=== PATIENT | female | born 1965 | race Caucasian/White ===

== ENCOUNTER 2022-09-25 09:53 | Outpatient (OUT) | payer OTHER, SELFPAY ==
[2022-09-25 10:49] LABS: Basophils Absolute Auto 0.1 10^3/uL (0.0-0.1); Basophils Percent Auto 1.2 % (0.2-2.0); Eosinophils Absolute Auto 0.1 10^3/uL (0.0-0.7); Eosinophils Percent Auto 2.6 % (0.9-7.0); Hematocrit 42.3 % (36.0-48.0); Hemoglobin 13.8 g/dL (12.0-16.0); Immature Granulocytes Abs Auto 0.01 10^3/uL (0.00-0.03); Immature Granulocytes Pct Auto 0.2 % (0.0-0.5); Lymphocytes Absolute Auto 1.5 10^3/uL (1.2-3.8); Lymphocytes Percent Auto 35.2 % (20.5-60.0); Mean Corpuscular HGB Conc 32.6 g/dL (29.9-35.2); Mean Corpuscular Hemoglobin 28.9 pg (26.7-34.0); Mean Corpuscular Volume 88.5 fL (81.0-99.0); Mean Platelet Volume 10.1 fL (9.5-13.5); Monocytes Absolute Auto 0.4 10^3/uL (0.3-0.8); Monocytes Percent Auto 10.3 % (1.7-12.0); Neutrophils Absolute Auto 2.1 10^3/uL (1.4-6.5); Neutrophils Percent Auto 50.5 % (43.0-75.0); Nucleated Red Blood Cells 0; Platelet Count 259 10^3/uL (150-450); Red Blood Count 4.78 10^6/uL (4.20-5.40); Red Cell Distribution Width 13.2 % (11.0-15.0); White Blood Count 4.2 10^3/uL (4.0-11.0)
[2022-09-25 11:00] LABS: Estimated Average Glucose 114 mg/dL; Glycohemoglobin A1C 5.6 % (4.5-6.2)
[2022-09-25 11:22] LABS: Alanine Aminotransferase 31 U/L (14-59); Albumin Level 4.1 g/dL (3.4-5.0); Alkaline Phosphatase 71 U/L (46-116); Anion Gap 10.3; Aspartate Amino Transferase 22 U/L (15-37); BUN Creatinine Ratio 18.3; Bilirubin Total 0.4 mg/dL (0.2-1.0); Calcium 9.3 mg/dL (8.5-10.1); Carbon Dioxide 30.3 mmol/L (21.0-32.0); Chloride 102 mmol/L (98-107); Chol HDL Ratio 2.6; Cholesterol 214 mg/dL (<=200); Estimated GFR (African America >60 (>=60); Estimated GFR (Non-African Ame >60 (>=60); Free T3 2.63 pg/mL (2.18-3.98); Glucose 87 mg/dL (74-106); HDL Cholesterol 82 mg/dL (40-60); Potassium 3.6 mmol/L (3.5-5.1); Sodium 139 mmol/L (136-145); Thyroid Stimulating Hormone 1.316 uIU/mL (0.358-3.740); Total Protein 8.1 g/dL (6.4-8.2); Triglycerides 54 mg/dL (<=150); VLDL CHOLESTEROL 10.8 mg/dL
[2022-09-26 04:12] LABS: Rheumatoid Factor (RF) <10.0 IU/mL (<14.0)
[2022-09-26 11:08] LABS: Insulin 4.9 uIU/mL (2.6-24.9)
== END 2022-09-25 09:54 ==
LOC: MRI 09:55
PROVIDERS: PCP Family Medicine; Visit Provider Family Medicine
DX: Z00.00 Encounter for general adult medical examination without abnormal findings (principal); E55.9 Vitamin D deficiency, unspecified
CPT/HCPCS: 36415; 80053; 80061; 82306; 83036; 83525; 83540; 84436; 84443; 84481; 85025; 86430

== ENCOUNTER 2022-11-11 09:52 | Outpatient (OUT) | payer OTHER, SELFPAY ==
[2022-11-11 10:30] LABS: Basophils Percent Auto 0.6 % (0.2-2.0); Eosinophils Percent Auto 0.4 % (0.9-7.0); Hematocrit 41.2 % (36.0-48.0); Hemoglobin 13.7 g/dL (12.0-16.0); Immature Granulocytes Abs Auto 0.02 10^3/uL (0.00-0.03); Immature Granulocytes Pct Auto 0.4 % (0.0-0.5); Lymphocytes Absolute Auto 0.9 10^3/uL (1.2-3.8); Lymphocytes Percent Auto 18.1 % (20.5-60.0); Mean Corpuscular HGB Conc 33.3 g/dL (29.9-35.2); Mean Corpuscular Volume 87.1 fL (81.0-99.0); Mean Platelet Volume 10.3 fL (9.5-13.5); Monocytes Absolute Auto 0.3 10^3/uL (0.3-0.8); Monocytes Percent Auto 5.8 % (1.7-12.0); Neutrophils Absolute Auto 3.8 10^3/uL (1.4-6.5); Neutrophils Percent Auto 74.7 % (43.0-75.0); Platelet Count 254 10^3/uL (150-450); Red Blood Count 4.73 10^6/uL (4.20-5.40); Red Cell Distribution Width 13.5 % (11.0-15.0)
[2022-11-11 12:39] LABS: Occult Blood Positive
[2022-11-11 12:58] LABS: Alanine Aminotransferase 31 U/L (14-59); Albumin Level 4.2 g/dL (3.4-5.0); Alkaline Phosphatase 70 U/L (46-116); Anion Gap 12.6; Aspartate Amino Transferase 22 U/L (15-37); BUN Creatinine Ratio 16.4; Bilirubin Total 0.4 mg/dL (0.2-1.0); Calcium 9.6 mg/dL (8.5-10.1); Carbon Dioxide 28.5 mmol/L (21.0-32.0); Chloride 105 mmol/L (98-107); Estimated GFR (African America >60 (>=60); Estimated GFR (Non-African Ame >60 (>=60); Glucose 121 mg/dL (74-106); Potassium 4.1 mmol/L (3.5-5.1); Sodium 142 mmol/L (136-145); Total Protein 8.2 g/dL (6.4-8.2)
[2022-11-11 15:36] LABS: C. Difficile PCR NEGATIVE (NEGATIVE)
[2022-11-12 11:38] LABS: Adenovirus F 40/41 NOT DETECTED (NOT DETECTE); Astrovirus NOT DETECTED (NOT DETECTE); Campylobacter NOT DETECTED (NOT DETECTE); Cryptosporidium NOT DETECTED (NOT DETECTE); Cyclospora cayetanensis NOT DETECTED (NOT DETECTE); Entamoeba histolytica NOT DETECTED (NOT DETECTE); Enteroaggregative E.coli NOT DETECTED (NOT DETECTE); Enterotoxigenic E. coli NOT DETECTED (NOT DETECTE); Giardia lamblia NOT DETECTED (NOT DETECTE); Norovirus GI/GII NOT DETECTED (NOT DETECTE); Plesiomonas shigelloides NOT DETECTED (NOT DETECTE); Rotavirus A NOT DETECTED (NOT DETECTE); Salmonella NOT DETECTED (NOT DETECTE); Sapovirus NOT DETECTED (NOT DETECTE); Shiga-like toxin-producing E.C NOT DETECTED (NOT DETECTE); Shigella/Enteroinvasive E.coli NOT DETECTED (NOT DETECTE); Vibrio NOT DETECTED (NOT DETECTE); Vibrio cholerae NOT DETECTED (NOT DETECTE); Yersinia enterocolitica NOT DETECTED (NOT DETECTE)
[2022-11-12 11:39] LABS: Enteropathogenic E.coli DETECTED (NOT DETECTE)
== END 2022-11-11 09:53 | disposition home or self-care (01) ==
LOC: LAB 09:53
PROVIDERS: PCP Family Medicine; Visit Provider Family Medicine
DX: K52.9 Noninfective gastroenteritis and colitis, unspecified (principal)
CPT/HCPCS: 36415; 80053; 85025; 87493; 87507; G0328

== ENCOUNTER 2022-11-13 09:33 | Outpatient (OUT) | payer OTHER, SELFPAY ==
[2022-11-13 09:40] VITALS: BP 132/87; PULSE 85; RESP 18; TEMP 37.2; O2SAT 97
[2022-11-13] MEDS: 0.9 % SODIUM CHLORIDE 1,000 ML 500 ML IV (10:07)
== END 2022-11-13 09:34 | disposition home or self-care (01) ==
LOC: INF 09:36
PROVIDERS: PCP Family Medicine; Visit Provider Family Medicine
DX: E86.0 Dehydration (principal); R19.7 Diarrhea, unspecified
CPT/HCPCS: 96360

== ENCOUNTER 2022-12-25 12:18 | Outpatient (OUT) | payer OTHER, SELFPAY ==
[2022-12-25 12:54] LABS: Estimated Average Glucose 117 mg/dL; Glycohemoglobin A1C 5.7 % (4.5-6.2)
[2022-12-25 13:59] LABS: Alanine Aminotransferase 44 U/L (14-59); Albumin Level 4.1 g/dL (3.4-5.0); Alkaline Phosphatase 65 U/L (46-116); Anion Gap 10.4; Aspartate Amino Transferase 31 U/L (15-37); Bilirubin Total 0.5 mg/dL (0.2-1.0); Calcium 9.3 mg/dL (8.5-10.1); Carbon Dioxide 28.7 mmol/L (21.0-32.0); Chloride 105 mmol/L (98-107); Estimated GFR (African America >60 (>=60); Estimated GFR (Non-African Ame >60 (>=60); Globulin 4.1 g/dL; Glucose 77 mg/dL (74-106); Potassium 4.1 mmol/L (3.5-5.1); Sodium 140 mmol/L (136-145); Thyroid Stimulating Hormone 0.989 uIU/mL (0.358-3.740); Total Protein 8.2 g/dL (6.4-8.2)
[2022-12-25 14:02] LABS: C Reactive Protein <0.2 mg/dL (<=1.0)
[2022-12-25 14:50] LABS: Basophils Absolute Auto 0.1 10^3/uL (0.0-0.1); Basophils Percent Auto 1.5 % (0.2-2.0); Eosinophils Absolute Auto 0.2 10^3/uL (0.0-0.7); Eosinophils Percent Auto 3.1 % (0.9-7.0); Hematocrit 42.7 % (36.0-48.0); Hemoglobin 13.7 g/dL (12.0-16.0); Immature Granulocytes Abs Auto 0.01 10^3/uL (0.00-0.03); Immature Granulocytes Pct Auto 0.2 % (0.0-0.5); Lymphocytes Absolute Auto 1.7 10^3/uL (1.2-3.8); Lymphocytes Percent Auto 35.5 % (20.5-60.0); Mean Corpuscular HGB Conc 32.1 g/dL (29.9-35.2); Mean Corpuscular Hemoglobin 28.9 pg (26.7-34.0); Mean Corpuscular Volume 90.1 fL (81.0-99.0); Mean Platelet Volume 10.6 fL (9.5-13.5); Monocytes Absolute Auto 0.5 10^3/uL (0.3-0.8); Monocytes Percent Auto 10.2 % (1.7-12.0); Neutrophils Absolute Auto 2.4 10^3/uL (1.4-6.5); Neutrophils Percent Auto 49.5 % (43.0-75.0); Platelet Count 294 10^3/uL (150-450); Red Blood Count 4.74 10^6/uL (4.20-5.40); Red Cell Distribution Width 13.5 % (11.0-15.0); White Blood Count 4.8 10^3/uL (4.0-11.0)
[2022-12-25 16:29] LABS: Erythrocyte Sedimentation Rate 25 mm/hr (<=30)
[2022-12-26 05:07] LABS: Rheumatoid Factor (RF) <10.0 IU/mL (<14.0)
== END 2022-12-25 12:19 | disposition home or self-care (01) ==
LOC: LAB 12:20
PROVIDERS: PCP Family Medicine; Visit Provider Family Medicine
DX: M19.90 Unspecified osteoarthritis, unspecified site (principal); R73.09 Other abnormal glucose
CPT/HCPCS: 36415; 80053; 83036; 84439; 84443; 85025; 85652; 86140; 86430; 86431

== ENCOUNTER 2023-05-26 15:12 | Outpatient (OUT) | payer OTHER, SELFPAY ==
--- NOTE | 2023-05-26 | XR_ITS ---
The [address] [address] Patient Name: YULIA CSATANO MRN: [id number] date: 1965 Sex: F Assigned Patient Location: [facility] Current Patient Location: [facility] Accession/Order Number: [id number] Exam Date: 05/26/2023 15:26 Report Date: 05/26/2023 16:12 At the request of: RALF RENDON Procedure: XR ankle LT min 3V PROCEDURE: XR ankle LT min 3V, XR foot LT min 3V COMPARISON: None. HISTORY: LEFT ANKLE PAIN FINDINGS: BONES:No acute fracture or dislocation. Moderate enthesopathic spurring of the calcaneus at the Achilles insertion. 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 Mild degenerative changes of the midfoot. SOFT TISSUES:Negative. No visible soft tissue swelling. EFFUSION:None visible. OTHER: Negative. XR/XR ankle LT min 3V IMPRESSION: No acute abnormality of the foot or ankle Electronically authenticated by: ELLYN ALVAREZ Date: 05/26/2023 16:12
--- NOTE | 2023-05-26 | XR_ITS ---
The [address] [address] Patient Name: YULIA CASTANO MRN: [id number] date: 1965 Sex: F Assigned Patient Location: [facility] Current Patient Location: [facility] Accession/Order Number: [id number] Exam Date: 05/26/2023 15:22 Report Date: 05/26/2023 16:12 At the request of: RALF RENDON Procedure: XR foot LT min 3V PROCEDURE: XR ankle LT min 3V, XR foot LT min 3V COMPARISON: None. HISTORY: LEFT ANKLE PAIN FINDINGS: BONES:No acute fracture or dislocation. Moderate enthesopathic spurring of the calcaneus at the Achilles insertion. 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 Mild degenerative changes of the midfoot. SOFT TISSUES:Negative. No visible soft tissue swelling. EFFUSION:None visible. OTHER: Negative. XR/XR foot LT min 3V IMPRESSION: No acute abnormality of the foot or ankle Electronically authenticated by: ELLYN ALVAREZ Date: 05/26/2023 16:12
== END 2023-05-26 15:13 | disposition home or self-care (01) ==
LOC: RAD 15:13
PROVIDERS: PCP Family Medicine; Visit Provider Podiatrist Foot & Ankle Surgery
DX: M79.672 Pain in left foot (principal); M25.572 Pain in left ankle and joints of left foot
CPT/HCPCS: 73610; 73630

== ENCOUNTER 2023-07-05 11:19 | Outpatient (OUT) | payer OTHER, SELFPAY ==
--- OUTSIDE RECORDS SUMMARY | 2023-07-05 11:31 | XMS_ITS | CCD ---
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 Room Operator Name Role Phone ABELINOY ., DR LOPEZ Attending Unavailable HOY ., DR LOPEZ Consulting Unavailable HOY ., DR LOPEZ Primary Care Unavailable HOY ., DR LOPEZ Admitting Unavailable HOY ., DR LOPEZ Attending Unavailable HOY ., DR LOPEZ Consulting Unavailable HOY ., DR LOPEZ Primary Care Unavailable HOY ., DR LOPEZ Admitting Unavailable HOY ., DR LOPEZ Attending Unavailable HOY ., DR LOPEZ Consulting Unavailable HOY ., DR LOPEZ Primary Care Unavailable HOY ., DR LOPEZ Admitting Unavailable HOY ., DR LOPEZ Attending Unavailable HOY ., DR LOPEZ Consulting Unavailable HOY ., DR LOPEZ Primary Care Unavailable HOY ., DR LOPEZ Admitting Unavailable HOY ., DR LOPEZ Consulting Unavailable HOY ., DR LOPEZ Attending Unavailable HOY ., DR LOPEZ Primary Care Unavailable HOY ., DR LOPEZ Admitting Unavailable ZIEBER, DR GABO Henley Consulting Unavailable HOY ., DR LOPEZ Attending Unavailable HOY ., DR LOPEZ Consulting Unavailable HOY ., DR LOPEZ Primary Care Unavailable HOY ., DR LOPEZ Admitting Unavailable HOY ., DR LOPEZ Attending Unavailable HOY ., DR LOPEZ Consulting Unavailable HOY ., DR LOPEZ Primary Care Unavailable HOY ., DR LOPEZ Admchao Unavailable HOY ., DR LOPEZ Admitting Unavailable HOY ., DR LOPEZ Attending Unavailable HOY ., DR LOPEZ Consulting Unavailable HOY ., DR LOPEZ Primary Care Unavailable ZIEBER, DR GABO Henley Consulting Unavailable JUANJOSE ., DR WILSON Admitting Unavailable JUANJOSE ., DR WILSON Attending Unavailable JUANJOSE ., DR WILSON Consulting Unavailable HOY ., DR LOPEZ Primary Care Unavailable ZIEBER, DR GABO Henley Consulting Unavailable HOY ., DR LOPEZ Attending Unavailable HOY ., DR LOPEZ Consulting Unavailable HOY ., DR LOPEZ Primary Care Unavailable HOY ., DR LOPEZ Admchao Unavailable JUANJOSE ., DR WILSON Admitting Unavailable JUANJOSE ., DR WILSON Attending Unavailable HOY ., DR LOPEZ Primary Care Unavailable HOY ., DR LOPEZ Admitting Unavailable HOY ., DR LOPEZ Attending Unavailable HOY ., DR LOPEZ Primary Care Unavailable JUANJOSE ., DR WILSON Admitting Unavailable JUANJOSE ., DR WILSON Attending Unavailable HOY ., DR LOPEZ Primary Care Unavailable JUANJOSE ., DR WILSON Admitting Unavailable JUANJOSE ., DR WILSON Attending Unavailable HOY ., DR LOPEZ Primary Care Unavailable HOY ., DR LOPEZ Attending Unavailable HOY ., DR LOPEZ Primary Care Unavailable HOY ., DR LOPEZ Admitting Unavailable HOY ., DR LOPEZ Consulting Unavailable HOY ., DR LOPEZ Attending Unavailable HOY ., DR LOPEZ Primary Care Unavailable HOY ., DR LOPEZ Admchao Unavailable ARTEMIO DIXON Consulting Unavailable JUANJOSE ., DR WILSON Admitting Unavailable JUANJOSE ., DR WILSON Attending Unavailable CLAREMONT, DR ELLYN Dougherty Consulting Unavailable HOY ., DR LOPEZ Primary Care Unavailable JUANJOSE ., DR WILSON Consulting Unavailable HOY ., DR LOPEZ Primary Care Unavailable DEMETRA, DR IRIS Chavez Admitting Unavailabl e DEMETRA, DR IRIS Chavez Attending Unavailabl e GRETEL ., ADELAIDE Admitting Unavailable GRETEL ., ADELAIDE Attending Unavailable GRETEL ., ADELAIDE Consulting Unavailable HOY ., DR LOPEZ Primary Care Unavailable KAREN VALDEZ Consulting Unavailable HOY ., DR LOPEZ Consulting Unavailable HOY ., DR LOPEZ Attending Unavailable HOY ., DR LOPEZ Primary Care Unavailable HOY ., DR LOPEZ Admchao Unavailable JEAN, DR BRYAN Henley Admitting Unavailable PENA, DR BRYAN Henley Attending Unavailable JEAN, DR BRYAN Henley Consulting Unavailable HOY ., DR LOPEZ Primary Care Unavailable DEMETRA, DR IRIS Chavez Consulting Unavailabl e HOY ., DR LOPEZ Attending Unavailable HOY ., DR LOPEZ Primary Care Unavailable HOY ., DR LOPEZ Admitting Unavailable HOY ., DR LOPEZ Consulting Unavailable HOY ., DR LOPEZ Attending Unavailable HOY ., DR LOPEZ Primary Care Unavailable HOY ., DR LOPEZ Admitting Unavailable HOY ., DR LOPEZ Attending Unavailable HOY ., DR LOPEZ Consulting Unavailable HOY ., DR LOPEZ Primary Care Unavailable HOY ., DR LOPEZ Admitting Unavailable LINDA RHODES Consulting Unavailable VALE IH Attending Unavailable RALF RENDON Referring Unavailable KATIE SOW Attending Unavailable KATIE SOW Attending Unavailable Allergies Allergy Classification Reported Allergen(s) Allergy Type Date of Onset Reaction(s) Facility (1 source) Azithromycin Drug Allergy 12-20-2021 [facility] Repository (2 sources) Imipramine Drug Allergy 10-05-2012 [facility] Repository (2 sources) Sulfonamides (Antibiotic) Drug allergy (disorder) 10-05-2012 [facility] Repository (2 sources) E.E.S. Drug allergy (disorder) 10-05-2012 [facility] Repository Problems Active Problems Problem Classification Problem Date Documented Da te Episodic/Chronic Chronic obstructive pulmonary disease and bronchiectasis (5 sources) Chronic obstructive pulmonary disease, unspecified; Translations: [COPD UNSPECIFIED] Onset: 06-05-2022 Chronic Deficiency and other anemia (1 source) Anemia, unspecified; Translations: [ANEMIA UNSPECIFIED] Onset: 07-07-2022 Episodic Diabetes mellitus without complication (1 source) Other abnormal glucose; Translations: [OTHER ABNORMAL GLUCOSE] Onset: 07-07-2022 Episodic Essential hypertension (4 sources) Essential (primary) hypertension; Translations: [ESSENTIAL PRIMARY HYPERTENSION] Onset: 07-03-2022 Chronic Genitourinary symptoms and ill-defined conditions (4 sources) Unspecified urinary incontinence; Translations: [UNSPECIFIED URINARY INCONTINENCE] Onset: 12-20-2021 Chronic Menstrual disorders (1 source) Excessive and frequent menstruation with regular cycle; Translations: [EXCESS FREQ MENSTRUATION W/REG CYCL] Onset: 12-24-2021 Chronic Nonmalignant breast conditions (5 sources) Unspecified lump in the right breast, unspecified quadrant; Translations: [Mastodynia] Onset: 09-22-2022 Episodic Other lower respiratory disease (1 source) Shortness of breath; Translations: [SHORTNESS OF BREATH] Onset: 07-07-2022 Episodic Other lower respiratory disease (1 source) Other nonspecific abnormal finding of lung field; Translations: [OTH NONSPECIFIC ABN FIND LNG FIELD] Onset: 07-07-2022 Episodic Other screening for suspected conditions (not mental disorders or infectious disease) (4 sources) Abnormal findings on diagnostic imaging of other specified body structures; Translations: [ABNORML FIND DX IMG OTH BODY STRUC] Onset: 07-28-2022 Chronic Other screening for suspected conditions (not mental disorders or infectious disease) (2 sources) Encounter for screening for malignant neoplasm of rectum; Translations: [Encounter for screening mammogram for malignant neoplasm of breast] Onset: 02-13-2022 Episodic Other skin disorders (4 sources) Localized swelling, mass and lump, neck; Translations: [LOCALIZED SWELLING MASS AND LUMP NECK] Onset: 08-29-2022 Episodic Other upper respiratory disease (1 source) Other seasonal allergic rhinitis; Translations: [OTHER SEASONAL ALLERGIC RHINITIS] Onset: 12-24-2021 Chronic Residual codes; unclassified (4 sources) Obstructive sleep apnea (adult) (pediatric); Translations: [OBSTRUCTIVE SLEEP APNEA] Onset: 08-11-2022 Chronic Unclassified (3 sources) CONTACT W/AND (SUSP) EXPOS COVID-19; Translations: [CONTACT W/AND (SUSP) EXPOS COVID-19] Onset: 06-03-2022 Unclassified (2 sources) COUGH, UNSPECIFIED; Translations: [COUGH, UNSPECIFIED] Onset: 01-19-2022 Unclassified (1 source) PERSONAL HISTORY OF COVID-19; Translations: [PERSONAL HISTORY OF COVID-19] Onset: 01-19-2022 Viral infection (5 sources) COVID-19; Translations: [COVID-19] Onset: 12-25-2021 Past or Other Problems Problem Classification Problem Date Documented Da te Episodic/Chronic Cardiac dysrhythmias (4 sources) Palpitations; Translations: [PALPITATIONS] Onset: 06-03-2022 Episodic Deficiency and other anemia (1 source) Iron deficiency anemia, unspecified; Translations: [IRON DEFICIENCY ANEMIA UNSPECIFIED] Onset: 12-24-2021 Episodic Fluid and electrolyte disorders (4 sources) Dehydration; Translations: [DEHYDRATION] Onset: 12-24-2021 Episodic Malaise and fatigue (1 source) Other fatigue; Translations: [OTHER FATIGUE] Onset: 06-05-2022 Episodic Other aftercare (4 sources) Other intermediate (current) drug therapy; Translations: [OTH CARE HOME CURRENT DRUG THERAPY] Onset: 12-23-2021 Episodic Other circulatory disease (1 source) Other specified symptoms and signs involving the circulatory and respiratory systems; Translations: [OTH SPEC SX SIGNS INVLV CIRC RS] Onset: 06-05-2022 Episodic Other lower respiratory disease (4 sources) Wheezing; Translations: [WHEEZING] Onset: 01-15-2022 Episodic Residual codes; unclassified (4 sources) Procedure and treatment not carried out due to patient leaving prior to being seen by health care provider; Translations: [PROC AND TX NOT CARRIED OUT PT LEAVE] Onset: 06-02-2022 Episodic Residual codes; unclassified (1 source) Family history of malignant neoplasm of breast; Translations: [FAMILY HX MALIG NEOPLASM OF BREAST] Onset: 02-13-2022 Episodic Unclassified (1 source) CONTACT W/AND (SUSP) EXPOS COVID-19; Translations: [CONTACT W/AND (SUSP) EXPOS COVID-19] Onset: 06-02-2022 Results Test Name Value Interpretation Reference Range Facility MG MAMM DX 3D RT CADon 09-22 MG MAMM DX 3D RT CAD Patient: GEN SCARLET CASTANO Exam Date: 09/22/2022 : 1965 Gender:F Ordering : DR KATIE SOW . Admission #: [id number] Family : Order #: [id number] CLICK HERE TO VIEW EXAM RADIOLOGY REPORT PROCEDURE: MAMMOGRAM DIAGNOSTIC 3D RIGHT CAD, 09/22/2022, 14:25 ULTRASOUND BREAST RIGHT LIMITED, 09/22/2022, 14:46 COMPARISON: MG MAMM SCREEN 3D SUSANA CAD, 02/10/2022. INDICATIONS: Pain of breast Calculator Name NCI Breast Cancer Risk Assessment Tool 5 Year Breast Cancer Risk 0.90% Lifetime Breast Cancer Risk 5.70% Personal Breast Cancer No Personal Ovarian Cancer No Treatments None Family Cancers Cousin-maternal with breast cancer at age 40. LOCATION: [facility] BREAST COMPOSITION: Almost entirely fatty. FINDINGS: DIAGNOSTIC CATEGORY 2--BENIGN FINDING: The right breast is stable in size and density. Scattered benign-appearing axillary lymph nodes. No mammographic or ultrasound abnormality to correspond to the palpable abnormality lower inner right anterior breast. Further evaluation should be based on clinical and physical exam. The patient is due bilateral screening mammogram January of 2023 RECOMMENDATIONS: ROUTINE MAMMOGRAM AND CLINICAL EVALUATION IN 12 MONTHS. PLEASE NOTE: A NORMAL MAMMOGRAM DOES NOT EXCLUDE THE POSSIBILITY OF BREAST CANCER. A CLINICALLY SUSPICIOUS PALPABLE LUMP SHOULD BE BIOPSIED. Dictated by: Ellyn Castaneda MD on 09/22/2022 at 15:01 Approved by: Ellyn Castaneda MD on 09/22/2022 at 15:03 Normal [facility] US BREAST RIGHT LIMITEDon US BREAST RIGHT LIMITED Patient: YULIA CASTANO Exam Date: 09/22/2022 : 1965 Gender:F Ordering : DR KATIE SOW . Admission #: [id number] Family : Order #: [id number] CLICK HERE TO VIEW EXAM RADIOLOGY REPORT PROCEDURE: MAMMOGRAM DIAGNOSTIC 3D RIGHT CAD, 09/22/2022, 14:25 ULTRASOUND BREAST RIGHT LIMITED, 09/22/2022, 14:46 COMPARISON: MG MAMM SCREEN 3D SUSANA CAD, 02/10/2022. INDICATIONS: Pain of breast Calculator Name NCI Breast Cancer Risk Assessment Tool 5 Year Breast Cancer Risk 0.90% Lifetime Breast Cancer Risk 5.70% Personal Breast Cancer No Personal Ovarian Cancer No Treatments None Family Cancers Cousin-maternal with breast cancer at age 40. LOCATION: [facility] BREAST COMPOSITION: Almost entirely fatty. FINDINGS: DIAGNOSTIC CATEGORY 2--BENIGN FINDING: The right breast is stable in size and density. Scattered benign-appearing axillary lymph nodes. No mammographic or ultrasound abnormality to correspond to the palpable abnormality lower inner right anterior breast. Further evaluation should be based on clinical and physical exam. The patient is due bilateral screening mammogram January of 2023 RECOMMENDATIONS: ROUTINE MAMMOGRAM AND CLINICAL EVALUATION IN 12 MONTHS. PLEASE NOTE: A NORMAL MAMMOGRAM DOES NOT EXCLUDE THE POSSIBILITY OF BREAST CANCER. A CLINICALLY SUSPICIOUS PALPABLE LUMP SHOULD BE BIOPSIED. Dictated by: Ellyn Castaneda MD on 09/22/2022 at 15:01 Approved by: Ellyn Castaneda MD on 09/22/2022 at 15:03 Normal [facility] US ST HEAD_NECKon 08-31-[address] HEAD_NECK EXAM: US ST HEAD_NEC K HISTORY: Mass of neck COMPARISON: Ultrasound ST head-neck TECHNIQUE: Percutaneous ultrasound evaluation of neck soft tissues FINDINGS: Several small hypoechoic lesions within left parotid gland, largest is 6 x 5 x 3 mm. Normal-appearing 7 x 6 x 4 mm lymph node adjacent to the parotid gland. IMPRESSION: 1. Stable appearance of the several small hypoechoic cysts versus nodules within the left parotid gland; nonspecific. Electronically authenticated by: GABO STRONG Date: 2022-08-31 08:09 Normal [facility] US PELVIS AND TRANSVAGon US PELVIS AND TRANSVAG EXAMINATION: US PELVIS AND TRANSVAG HISTORY: Imaging result abnormal ; follow-up thickened endometrium COMPARISON: Ultrasound pelvis 07/22/2021 TECHNIQUE: Transabdominal and transvaginal sonographic examination. FINDINGS: UTERUS: Stable to slightly smaller geographic shaped heterogeneous area within right side of uterine fundus, 1.4 x 1.1 x 0.9 cm; likely a leiomyoma. Uterus size: 7.1 x 4.8 x 3.7 cm ENDOMETRIUM: Normal homogeneous appearance. Endometrial thickness: 8 mm RIGHT OVARY: Contains a 1.6 x 1.0 x 0.8 cm fluid collection, also seen on prior study. Duplex Doppler demonstrates normal waveform and flow; resistive index 0.6. Ovary size: 2.4 x 1.5 x 1.1 cm LEFT OVARY: Normal size and appearance. Duplex Doppler demonstrates normal waveform and flow; resistive index 0.6. Ovary size: 1.8 x 1.6 x 1.3 cm CUL-DE-SAC: Unremarkable. No significant free fluid. BLADDER: Unremarkable. OTHER: None. IMPRESSION: 1. Endometrium is homogeneous and 8 mm in thickness which is thickened for a postmenopausal patient, but slightly less than seen on prior study. 2. Stable fluid collection/cyst within right ovary. Electronically authenticated by: GABO STRONG Date: 2022-07-29 06:32 Normal [facility] INSULINon 07-04-2022 Insulin 6.2 uIU/mL Normal 2.6-24.9 [facility] Comment on above: Performed By: #### H STRONETO, CMP #### [facility] [address] [place] [address] Dr. Judd Andrade CBC AUTO DIFFon 07-03-2022 BASO # 0.0 103/ul Normal 0.0-0.1 [facility] Comment on above: Performed By: #### C BC #### [facility] [address] [place] [address] Dr. Judd Andrade Basophils/100 WBC (Bld) 1.1 % Normal 0.2-2.0 [facility] Comment on above: Performed By: #### C BC #### [facility] [address] [place] [address] Dr. Judd Andrade EO # 0.1 103/ul Normal 0.0-0.7 [facility] Comment on above: Performed By: #### C BC #### [facility] [address] [place] [address] Dr. Judd Andrade Eosinophils/100 WBC (Bld) 3.6 % Normal 0.9-7.0 [facility] Comment on above: Performed By: #### C BC #### [facility] [address] [place] [address] Dr. Judd Andrade Erythrocyte distribution width (RBC) [Ratio] 13.6 % Normal 11.0-15.0 [facility] Comment on above: Performed By: #### C BC #### [facility] [address] [place] [address] Dr. Judd Andrade Hematocrit (Bld) [Volume fraction] 41.8 % Normal 36.0-48.0 [facility] Comment on above: Performed By: #### C BC #### [facility] [address] [place] [address] Dr. Judd Andrade Hemoglobin (Bld) [Mass/Vol] 13.5 g/dL Normal 12.0-16.0 [facility] Comment on above: Performed By: #### C BC #### [facility] [address] [place] [address] Dr. Judd Andrade IG # 0.01 10e3/ul Normal 0.00-0.03 [facility] Comment on above: Performed By: #### C BC #### [facility] [address] [place] [address] Dr. Judd Andrade IG % 0.3 % Normal 0.0-0.5 [facility] Comment on above: Performed By: #### C BC #### [facility] [address] [place] [address] Dr. Judd Andrade LYMPH # 1.4 103/ul Normal 1.2-3.8 [facility] Comment on above: Performed By: #### C BC #### [facility] [address] [place] [address] Dr. Judd Andrade Lymphocytes/100 WBC (Bld) 38.4 % Normal 20.5-60.0 [facility] Comment on above: Performed By: #### C BC #### [facility] [address] [place] [address] Dr. Judd Andrade MANUAL DIFF REQ NO Normal [facility] Comment on above: Performed By: #### C BC #### [facility] [address] [place] [address] Dr. Judd Andrade MCH (RBC) [Entitic mass] 28.2 pg Normal 26.7-34.0 [facility] Comment on above: Performed By: #### C BC #### [facility] [address] [place] [address] Dr. Judd Andrade MCHC (RBC) [Mass/Vol] 32.3 g/dL Normal 29.9-35.2 [facility] Comment on above: Performed By: #### C BC #### [facility] [address] [place] [address] Dr. Judd Andrade MCV (RBC) [Entitic vol] 87.4 fL Normal 81.0-99.0 [facility] Comment on above: Performed By: #### C BC #### [facility] [address] [place] [address] Dr. Judd Andrade MONO # 0.4 103/ul Normal 0.3-0.8 [facility] Comment on above: Performed By: #### C BC #### [facility] [address] [place] [address] Dr. Judd Andrade Monocytes/100 WBC (Bld) 10.4 % Normal 1.7-12.0 [facility] Comment on above: Performed By: #### C BC #### [facility] [address] [address] [address] Judd Andrade NEUT # 1.7 103/ul Normal 1.4-6.5 [facility] Comment on above: Performed By: #### C BC #### [facility] [address] [address] [address] Judd Andrade Neutrophils/100 WBC (Bld) 46.2 % Normal 43.0-75.0 [facility] Comment on above: Performed By: #### C BC #### [facility] [address] [place] [address] Dr. Judd Andrade Platelet mean volume (Bld) [Entitic vol] 9.6 fL Normal 9.5-13.5 [facility] Comment on above: Performed By: #### C BC #### [facility] [address] [place] [address] Dr. Judd Andrade PLT 246 103/ul Normal 150-450 [facility] Comment on above: Performed By: #### C BC #### [facility] [address] [place] [address] Dr. Judd Andrade RBC 4.78 106/ul Normal 4.20-5.40 [facility] Comment on above: Performed By: #### C BC #### [facility] [address] [place] [address] Dr. Judd Andrade WBC 3.7 103/ul Critically low 4.0-11.0 [facility] Comment on above: Performed By: #### C BC #### [facility] [address] [place] [address] Dr. Judd Andrade FREE THYROXINE INDEX T7on FTI 3.20 Normal 1.30-4.50 [facility] Comment on above: Performed By: #### T 7, LIPID, TSH, CMP #### [facility] [address] [place] [address] Dr. Judd Andrade T3U 36.0 % Normal 30.0-39.0 [facility] Comment on above: Performed By: #### T 7, LIPID, TSH, CMP #### [facility] [address] [address] [address] Judd Andrade T4 [Mass/Vol] 8.90 ug/dL Normal 4.80-13.[address] [facility] Comment on above: Performed By: #### T 7, LIPID, TSH, CMP #### [facility] [address] [address] [address] Judd Andrade GLYCOHEMOGLOBIN A1Con 2022 ADA RECOMMENDATION SEE BELOW Normal [facility] Comment on above: Result Comment: ADA RECOMMENDED LIMIT 4.0 - 6.0 ADA THERAPEUTIC TARGET < 7.0 ACTION SUGGESTED > 7.0 Performed By: #### C BC #### [facility] [address] [address] [address] Judd Andrade Glucose [Mass/Vol] 120 mg/dL Normal [facility] Comment on above: Performed By: #### C BC #### [facility] [address] [address] [address] Judd Andrade HbA1c (Bld) [Mass fraction] 5.8 % Normal 4.5-6.2 [facility] Comment on above: Performed By: #### C BC #### [facility] [address] [address] [address] Judd Andrade IRONon 07-03-2022 Iron [Mass/Vol] 67.0 ug/dL Normal 50.0-170.0 [facility] Comment on above: Performed By: #### V ITAD, IRON #### [facility] [address] [address] [address] Judd Andrade LIPID PROFILEon 07-03-2022 CHOL-HDL RATIO NORM SEE BELOW Normal [facility] Comment on above: Result Comment: 3.3 - 4.4 LOW RISK 4.4 - 7.1 AVERAGE RISK 7.1 - 11.0 MODERATE RISK >11.0 HIGH RISK Performed By: #### T 7, LIPID, TSH, CMP #### [facility] [address] [address] [address] Judd Andrade Cholesterol [Mass/Vol] 216 mg/dL Critically high <=200 [facility] Comment on above: Performed By: #### T 7, LIPID, TSH, CMP #### [facility] [address] [address] [address] Judd Andrade Cholesterol in HDL [Mass/Vol] 87 mg/dL Critically high 40-60 [facility] Comment on above: Performed By: #### T 7, LIPID, TSH, CMP #### [facility] [address] [address] [address] Judd Andrade Cholesterol in LDL [Mass/Vol] 124.2 mg/dL Normal [facility] Comment on above: Performed By: #### T 7, LIPID, TSH, CMP #### [facility] [address] [address] [address] Judd Andrade Cholesterol.total/Ch olesterol in HDL [Mass ratio] 2.5 {ratio} Normal [facility] Comment on above: Performed By: #### T 7, LIPID, TSH, CMP #### [facility] [address] [address] [address] Judd Andrade HDL NORMAL > or = 60 mg/dl - LO W CARDIOVASCULAR RISK <40 mg/dl - HIGH CARDIOVASCULAR RISK Normal [facility] Comment on above: Performed By: #### T 7, LIPID, TSH, CMP #### [facility] [address] [address] [address] Judd Andrade LDL CALC NORMAL SEE BELOW Normal [facility] Comment on above: Result Comment: <100 mg/dl OPTIMAL 100 - 129 mg/dl NEAR OR ABOVE OPTIMAL 130 - 159 mg/dl BORDERLINE HIGH 160 - 189 mg/dl HIGH >190 mg/dl VERY HIGH Performed By: #### T 7, LIPID, TSH, CMP #### [facility] [address] [address] [address] Judd Andrade Triglyceride [Mass/Vol] 24 mg/dL Normal <=150 [facility] Comment on above: Performed By: #### T 7, LIPID, TSH, CMP #### [facility] [address] [address] [address] Judd Andrade VLDL CALC 4.8 mg/dL Normal [facility] Comment on above: Performed By: #### T 7, LIPID, TSH, CMP #### [facility] [address] [address] [address] Judd Andrade PROF 14(COMP METB)on 023 Albumin [Mass/Vol] 4.0 g/dL Normal 3.4-5.0 [facility] Comment on above: Performed By: #### T 7, LIPID, TSH, CMP #### [facility] [address] [place] [address] Dr. Judd Andrade Albumin/Globulin [Mass ratio] 1.1 {ratio} Normal [facility] Comment on above: Performed By: #### T 7, LIPID, TSH, CMP #### [facility] [address] [place] [address] Dr. Judd Andrade ALP [Catalytic activity/Vol] 78 U/L Normal 46-116 [facility] Comment on above: Performed By: #### T 7, LIPID, TSH, CMP #### [facility] [address] [place] [address] Dr. Judd Andrade ALT [Catalytic activity/Vol] 29 U/L Normal 14-59 [facility] Comment on above: Performed By: #### T 7, LIPID, TSH, CMP #### [facility] [address] [place] [address] Dr. Judd Andrade Anion gap [Moles/Vol] 5.6 mmol/L Normal [facility] Comment on above: Performed By: #### T 7, LIPID, TSH, CMP #### [facility] [address] [place] [address] Dr. Judd Andrade AST [Catalytic activity/Vol] 23 U/L Normal 15-37 [facility] Comment on above: Performed By: #### T 7, LIPID, TSH, CMP #### [facility] [address] [place] [address] Dr. Judd Andrade Bilirubin [Mass/Vol] 0.5 mg/dL Normal 0.2-1.0 [facility] Comment on above: Performed By: #### T 7, LIPID, TSH, CMP #### [facility] [address] [address] [address] Judd Andrade Calcium [Mass/Vol] 8.9 mg/dL Normal 8.5-10.1 [facility] [place] [facility] Comment on above: Performed By: #### T 7, LIPID, TSH, CMP #### [facility] [address] [address] [address] Judd Andrade Chloride [Moles/Vol] 105 mmol/L Normal 98-107 [facility] Comment on above: Performed By: #### T 7, LIPID, TSH, CMP #### [facility] [address] [address] [address] Judd Andrade CO2 [Moles/Vol] 32.0 mmol/L Normal 21.0-32.0 [facility] Comment on above: Performed By: #### T 7, LIPID, TSH, CMP #### [facility] [address] [place] [address] Dr. Judd Andrade Creatinine [Mass/Vol] 0.52 mg/dL Critically low 0.55-1.02 [facility] Comment on above: Performed By: #### T 7, LIPID, TSH, CMP #### [facility] [address] [place] [address] Dr. Judd Andrade EGFR-AF FIJIAN >60 Normal >=60 [facility] Comment on above: Performed By: #### T 7, LIPID, TSH, CMP #### [facility] [address] [place] [address] Dr. Judd Andrade EGFR-NON AF FIJIAN >60 Normal >=60 [facility] Comment on above: Performed By: #### T 7, LIPID, TSH, CMP #### [facility] [address] [address] [address] Judd Andrade Globulin (S) [Mass/Vol] 3.6 g/dL Normal [facility] Comment on above: Performed By: #### T 7, LIPID, TSH, CMP #### [facility] [address] [place] [address] Dr. Judd Andrade Glucose [Mass/Vol] 89 mg/dL Normal 74-106 [facility] [place] [facility] Comment on above: Performed By: #### T 7, LIPID, TSH, CMP #### [facility] [address] [place] [address] Dr. Judd Andrade Potassium [Moles/Vol] 4.2 mmol/L Normal 3.5-5.1 [facility] Comment on above: Performed By: #### T 7, LIPID, TSH, CMP #### [facility] [address] [place] [address] Dr. Judd Andrade Protein [Mass/Vol] 7.6 g/dL Normal 6.4-8.2 [facility] [place] [facility] Comment on above: Performed By: #### T 7, LIPID, TSH, CMP #### [facility] [address] [place] [address] Dr. Judd Andrade Sodium [Moles/Vol] 139 mmol/L Normal 136-145 [facility] [place] [facility] Comment on above: Performed By: #### T 7, LIPID, TSH, CMP #### [facility] [address] [place] [address] Dr. Judd Andrade Urea nitrogen [Mass/Vol] 11.0 mg/dL Normal 7.0-18.0 [facility] Comment on above: Performed By: #### T 7, LIPID, TSH, CMP #### [facility] [address] [place] [address] Dr. Judd Andrade Urea nitrogen/Creatinine [Mass ratio] 21.2 mg/mg Normal [facility] Comment on above: Performed By: #### T 7, LIPID, TSH, CMP #### [facility] [address] [place] [address] Dr. Judd Andrade TSHon 07-03-2022 TSH 1.037 uIU/mL Normal 0.358-3.740 [facility] Comment on above: Performed By: #### T 7, LIPID, TSH, CMP #### [facility] [address] [place] [address] Dr. Judd Andrade VITAMIN D 25 OHon 07-03-2022 VIT D 25-OH 32.8 ng/mL Normal [facility] Comment on above: Performed By: #### V ITAD, IRON #### [facility] [address] [place] [address] Dr. Judd Andrade VIT D RANGES SEE BELOW Normal [facility] Comment on above: Result Comment: <20 ng/mL Vit D deficient 20 - <30 ng/mL Vit D insufficient 30 - 100 ng/mL Vit D sufficient >100 ng/mL Potential Toxicity Performed By: #### V CARMELO, IRON #### [facility] [address] [place] [address] Dr. Judd Andrade BORDETELLA PERTUSSIS AB IGGo n 06-30-2022 B pertussis IgG Ab 3.88 index Invalid Interpretation Code 0.00-0.94 [facility] Comment on above: Result Comment: Clie nt Requested Flag Negative <0.95 Equivocal 0.95 - 1.04 Positive >1.04 Performed By: #### C BC #### [facility] [address] [place] [address] Dr. Judd Andrade BORDETELLA PERTUSSIS AB IGMo n 06-30-2022 B pertussis IgM Ab <1.0 Normal 0.0-0.9 [facility] Comment on above: Result Comment: Nega tive <1.0 Borderline 1.0 - 1.1 Positive >1.1 Performed By: #### Sara BOYD, CMP #### [facility] [address] [place] [address] Dr. Judd Andrade [id number] 2022 Ndlgh-1-Kqqodxyhmgr, Serum 158 mg/dL Normal 101-187 [facility] Comment on above: Performed By: #### C BC #### [facility] [address] [place] [address] Dr. Judd Andrade CBC AUTO DIFFon 06-03-2022 BASO # 0.0 103/ul Normal 0.0-0.1 [facility] Comment on above: Performed By: #### H DEB, CMP #### [facility] [address] [place] [address] Dr. Judd Andrade Basophils/100 WBC (Bld) 0.6 % Normal 0.2-2.0 [facility] Comment on above: Performed By: #### H STROPN, CMP #### [facility] [address] [place] [address] Dr. Judd Andrade EO # 0.0 103/ul Normal 0.0-0.7 [facility] Comment on above: Performed By: #### H STROPN, CMP #### [facility] [address] [place] [address] Dr. Judd Andrade Eosinophils/100 WBC (Bld) 0.6 % Critically low 0.9-7.0 [facility] Comment on above: Performed By: #### H STROPN, CMP #### [facility] [address] [place] [address] Dr. Judd Andrade Erythrocyte distribution width (RBC) [Ratio] 13.5 % Normal 11.0-15.0 [facility] Comment on above: Performed By: #### H STROPN, CMP #### [facility] [address] [place] [address] Dr. Judd Andrade Hematocrit (Bld) [Volume fraction] 42.4 % Normal 36.0-48.0 [facility] Comment on above: Performed By: #### H STROPN, CMP #### [facility] [address] [place] [address] Dr. Judd Andrade Hemoglobin (Bld) [Mass/Vol] 13.4 g/dL Normal 12.0-16.0 [facility] Comment on above: Performed By: #### H STROPN, CMP #### [facility] [address] [place] [address] Dr. Judd Andrade IG # 0.01 10e3/ul Normal 0.00-0.03 [facility] Comment on above: Performed By: #### H STROPN, CMP #### [facility] [address] [place] [address] Dr. Judd Andrade IG % 0.2 % Normal 0.0-0.5 [facility] Comment on above: Performed By: #### H STROPN, CMP #### [facility] [address] [place] [address] Dr. Judd Andrade LYMPH # 1.1 103/ul Critically low 1.2-3.8 [facility] Comment on above: Performed By: #### H STROPN, CMP #### [facility] [address] [place] [address] Dr. Judd Andrade Lymphocytes/100 WBC (Bld) 23.5 % Normal 20.5-60.0 [facility] Comment on above: Performed By: #### H STROPN, CMP #### [facility] [address] [place] [address] Dr. Judd Andrade MANUAL DIFF REQ NO Normal [facility] Comment on above: Performed By: #### H STROPN, CMP #### [facility] [address] [place] [address] Dr. Judd Andrade MCH (RBC) [Entitic mass] 28.9 pg Normal 26.7-34.0 [facility] Comment on above: Performed By: #### H TERAPN, CMP #### [facility] [address] [place] [address] Dr. Judd Andrade MCHC (RBC) [Mass/Vol] 31.6 g/dL Normal 29.9-35.2 [facility] Comment on above: Performed By: #### H TERAPN, CMP #### [facility] [address] [place] [address] Dr. Judd Andrade MCV (RBC) [Entitic vol] 91.6 fL Normal 81.0-99.0 [facility] Comment on above: Performed By: #### H STROPN, CMP #### [facility] [address] [place] [address] Dr. Judd Andrade MONO # 0.8 103/ul Normal 0.3-0.8 [facility] Comment on above: Performed By: #### H STROPN, CMP #### [facility] [address] [place] [address] Dr. Judd Andrade Monocytes/100 WBC (Bld) 16.5 % Critically high 1.7-12.0 [facility] Comment on above: Performed By: #### H STROPN, CMP #### [facility] [address] [place] [address] Dr. Judd Andrade NEUT # 2.7 103/ul Normal 1.4-6.5 [facility] Comment on above: Performed By: #### H DEB, CMP #### [facility] [address] [address] [address] Judd Andrade Neutrophils/100 WBC (Bld) 58.6 % Normal 43.0-75.0 [facility] Comment on above: Performed By: #### H DEB, CMP #### [facility] [address] [place] [address] Dr. Judd Andrade Platelet mean volume (Bld) [Entitic vol] 9.8 fL Normal 9.5-13.5 [facility] Comment on above: Performed By: #### H DEB, CMP #### [facility] [address] [place] [address] Dr. Judd Andrade PLT 252 103/ul Normal 150-450 [facility] Comment on above: Performed By: #### H DEB, CMP #### [facility] [address] [place] [address] Dr. Judd Andrade RBC 4.63 106/ul Normal 4.20-5.40 [facility] Comment on above: Performed By: #### H DEB, CMP #### [facility] [address] [place] [address] Dr. Judd Andrade WBC 4.7 103/ul Normal 4.0-11.0 [facility] Comment on above: Performed By: #### H DEB, CMP #### [facility] [address] [place] [address] Dr. Judd Andrade PROF 14(COMP METB)on 023 Albumin [Mass/Vol] 4.0 g/dL Normal 3.4-5.0 [facility] Comment on above: Performed By: #### H DEB, CMP #### [facility] [address] [place] [address] Dr. Judd Andrade Albumin/Globulin [Mass ratio] 1.0 {ratio} Normal [facility] Comment on above: Performed By: #### H DEB, CMP #### [facility] [address] [address] [address] Judd Andrade ALP [Catalytic activity/Vol] 77 U/L Normal 46-116 [facility] Comment on above: Performed By: #### H STROPN, CMP #### [facility] [address] [address] [address] Judd Andrade ALT [Catalytic activity/Vol] 33 U/L Normal 14-59 [facility] Comment on above: Performed By: #### H STROPN, CMP #### [facility] [address] [address] [address] Judd Andrade Anion gap [Moles/Vol] 8.0 mmol/L Normal [facility] Comment on above: Performed By: #### H STROPN, CMP #### [facility] [address] [address] [address] Judd Andrade AST [Catalytic activity/Vol] 28 U/L Normal 15-37 [facility] Comment on above: Performed By: #### H STROPN, CMP #### [facility] [address] [address] [address] Judd Andrade Bilirubin [Mass/Vol] 0.6 mg/dL Normal 0.2-1.0 [facility] Comment on above: Performed By: #### H STROPN, CMP #### [facility] [address] [address] [address] Judd Andrade Calcium [Mass/Vol] 9.3 mg/dL Normal 8.5-10.1 [facility] Comment on above: Performed By: #### H STROPN, CMP #### [facility] [address] [address] [address] Judd Andrade Chloride [Moles/Vol] 103 mmol/L Normal 98-107 [facility] Comment on above: Performed By: #### H STROPN, CMP #### [facility] [address] [address] [address] Judd Andrade CO2 [Moles/Vol] 33.6 mmol/L Critically high 21.0-32.0 [facility] Comment on above: Performed By: #### H STROPN, CMP #### [facility] [address] [address] [address] Judd Andrade Creatinine [Mass/Vol] 0.59 mg/dL Normal 0.55-1.02 [facility] Comment on above: Performed By: #### H STROPN, CMP #### [facility] [address] [address] [address] Judd Andrade EGFR-AF FIJIAN >60 Normal >=60 [facility] Comment on above: Performed By: #### H STROPN, CMP #### [facility] [address] [address] [address] Judd Andrade EGFR-NON AF FIJIAN >60 Normal >=60 [facility] Comment on above: Performed By: #### H STROPN, CMP #### [facility] [address] [address] [address] Judd Andrade Globulin (S) [Mass/Vol] 4.0 g/dL Normal [facility] Comment on above: Performed By: #### H STROPN, CMP #### [facility] [address] [address] [address] Judd Andrade Glucose [Mass/Vol] 130 mg/dL Critically high 74-106 [facility] Comment on above: Performed By: #### H STROPN, CMP #### [facility] [address] [address] [address] Judd Andrade Potassium [Moles/Vol] 3.6 mmol/L Normal 3.5-5.1 [facility] Comment on above: Performed By: #### H STROPN, CMP #### [facility] [address] [address] [address] Judd Andrade Protein [Mass/Vol] 8.0 g/dL Normal 6.4-8.2 [facility] [place] [facility] Comment on above: Performed By: #### H STROPN, CMP #### [facility] [address] [address] [address] Judd Andrade Sodium [Moles/Vol] 141 mmol/L Normal 136-145 [facility] [place] [facility] Comment on above: Performed By: #### H STROPN, CMP #### [facility] [address] [place], [place] [address] Dr. Judd Andrade Urea nitrogen [Mass/Vol] 8.0 mg/dL Normal 7.0-18.0 [facility] Comment on above: Performed By: #### H TERAPN, CMP #### [facility] [address] [place], [place] [address] Dr. Judd Andrade Urea nitrogen/Creatinine [Mass ratio] 13.6 mg/mg Normal [facility] Comment on above: Performed By: #### H STROPN, CMP #### [facility] [address] [place], [place] [address] Dr. Judd Andrade TROPONIN, HIGH SENSITIVITYon 06-03-2022 HSTROP <4.0 Normal 4.0-51.3 [facility] Comment on above: Result Comment: CUT- OFF POINTS HAVE BEEN ESTABLISHED BASED ON THE FOURTH UNIVERSAL DEFINITIONS OF MYOCARDIAL INFARCTION. THE UPPER REFERENCE LIMIT (URL) OF TROPONIN, DEFINED THE 99TH PERCENTILE OF cTnI DISTRIBUTION IN A REFERENCE POPULATION, HAS BEEN CONFIRMED THE DECISION THRESHOLD FOR LA DIAGNOSIS. Performed By: #### H TERAPN, CMP #### [facility] [address] [place], [place] [address] Dr. Judd Andrade XR CHEST 2 Von 06-03-2022 XR CHEST 2 V EXAM: CHEST 2 VIEWS HISTORY: Congestion , cough TECHNIQUE: PA and lateral views chest. COMPARISON: 01/15/2022. FINDINGS: The lungs are hyperinflated with mild flattening of the diaphragms. There is no focal lung consolidation, pleural effusion or pneumothorax. Pulmonary vasculature is within normal limits. The cardiomediastinal silhouette is normal. IMPRESSION: 1. Pulmonary hyperinflation with clear lungs. No acute cardiopulmonary disease. Electronically authenticated by: LINDA RHODES Date: 2022-06-03 12:15 Normal [facility] Covid-19 PCR (CVDTBH)on SARS-CoV-2 (COVID-19) RNA JOLLY+probe Ql (Unsp spec) Not detected Normal NOT DETECTED [facility] Comment on above: Result Comment: This test is not yet approved or cleared by the [place] FDA. When there are no FDA-approved or cleared tests available, and other criteria are met, FDA can make tests available under an emergency access mechanism called an Emergency Use Authorization (EUA). The EUA for this test is supported by the Director Of Corporate Sales of Health and Human Service's (HHS's) declaration that circumstances exist to justify the emergency use of in vitro diagnostics for the detection and/or diagnosis of the virus that causes COVID-19. This EUA will remain in effect (meaning this test can be used) for the duration of the COVID-19 declaration justifying emergency of IVDs, unless it is terminated or revoked by FDA (after which the test may no longer be used). When diagnostic testing is negative, the possibility of a false negative should be considered in the context of a patient's recent exposures and the presence of clinical signs and symptoms consistent with SARS-CoV-2. Performed By: #### H DEB, CMP #### [facility] [address] [place] [address] Dr. Judd Andrade INFLUENZA A AND B AGon 06-02 [facility] SEE BELOW Normal [facility] Comment on above: Result Comment: Nega tive for Flu A protein angiten. Infection due to Flu A cannot be ruled out. Flu A angiten in the sample may be below the detection limit of the test. Performed By: #### H DEB, CMP #### [facility] [address] [place] [address] Dr. Judd And[facility] Normal [facility] Comment on above: Result Comment: Nega tive for Flu B protein antigen. Infection due to Flu B cannot be ruled out. Flu B antigen in the sample may be below the detection limit of the test. Performed By: #### H STROPN, CMP #### [facility] [address] [place] [address] Dr. Judd Andrade INFLUENZA A AG Negative Normal NEGATIVE SEE COMMENT [facility] Comment on above: Performed By: #### H STROPN, CMP #### [facility] [address] [place] [address] Dr. Judd Andrade INFLUENZA B AG Negative Normal NEGATIVE SEE COMMENT [facility] Comment on above: Performed By: #### H STROPN, CMP #### [facility] [address] [address] [address] Judd Andrade US ST HEAD_NECKon 02-11-[address] HEAD_NECK EXAM: US ST HEAD_NEC K HISTORY: Mass of neck ; left neck lump for several years COMPARISON: None. TECHNIQUE: Percutaneous ultrasound of left neck. FINDINGS: Within the left parotid gland are several small round hypoechoic well-circumscribed structures without appreciable internal blood flow, largest is 5 x 4 x 3 mm. IMPRESSION: 1. Patient's palpable lump corresponds to her left parotid gland. Within the parotid gland are several sub-5 mm hypoechoic cysts versus relatively avascular nodules; nonspecific. No overtly suspicious findings. Consider follow-up ultrasound evaluation in 6 months to document stability. Electronically authenticated by: GABO STRONG Date: 2022-02-11 16:24 Normal [facility] MG MAMM SCREEN 3D SUSANA CADon 02-10-2022 MG MAMM SCREEN 3D SUSANA CAD Patient: YULIA CASTANO Exam Date: 02/10/2022 : 1965 Gender:F Ordering : DR JOHN WHITE . Admission #: [id number] Family : Order #: [id number] CLICK HERE TO VIEW EXAM RADIOLOGY REPORT PROCEDURE: MAMMOGRAM SCREENING 3D BILATERAL CAD COMPARISON: MG MAMM SUSANA SCRN W CAD DIG, 04/24/2020. MG MAMM SUSANA SCRN W CAD DIG, 08/11/2018. INDICATIONS: Screening mammography Calculator Name NCI Breast Cancer Risk Assessment Tool 5 Year Breast Cancer Risk 0.90% Lifetime Breast Cancer Risk 5.90% Personal Breast Cancer No Personal Ovarian Cancer No Treatments None Family Cancers Cousin-maternal with breast cancer at age 40. LOCATION: [facility] BREAST COMPOSITION: Almost entirely fatty. FINDINGS: DIAGNOSTIC CATEGORY 1--NEGATIVE. RIGHT BREAST: No significant suspicious finding. No significant change has occurred. LEFT BREAST: No significant suspicious finding. No significant change has occurred. RECOMMENDATIONS: ROUTINE MAMMOGRAM AND CLINICAL EVALUATION IN 12 MONTHS. PLEASE NOTE: A NORMAL MAMMOGRAM DOES NOT EXCLUDE THE POSSIBILITY OF BREAST CANCER. A CLINICALLY SUSPICIOUS PALPABLE LUMP SHOULD BE BIOPSIED. Dictated by: Gabo Strong M.D. on 02/11/2022 at 14:18 Approved by: Gabo Strong M.D. on 02/11/2022 at 14:20 Normal [facility] XR CHEST 1 Von 01-15-2022 XR CHEST 1 V PORTABLE CHEST X-RAY . INDICATION: Cough. COMPARISON: None. TECHNIQUE: Single AP portable chest radiograph. FINDINGS: TUBES AND LINES: None. LUNGS: Mildly hyperexpanded lungs. Lungs are clear. PLEURA: No effusions or pneumothorax. HEART AND MEDIASTINUM: Within normal limits for portable technique. OSSEOUS STRUCTURES: No acute abnormality. IMPRESSION: No acute findings. Electronically authenticated by: KAREN VALDEZ Date: 2022-01-15 18:39 Normal [facility] CBC AUTO DIFFon 12-30-2021 BASO # 0.0 103/ul Normal 0.0-0.1 [facility] Comment on above: Performed By: #### C BC #### [facility] [address] [place] [address] Dr. Judd Andrade Basophils/100 WBC (Bld) 0.6 % Normal 0.2-2.0 [facility] Comment on above: Performed By: #### C BC #### [facility] [address] [place] [address] Dr. Judd Andrade EO # 0.1 103/ul Normal 0.0-0.7 [facility] Comment on above: Performed By: #### C BC #### [facility] [address] [place] [address] Dr. Judd Andrade Eosinophils/100 WBC (Bld) 2.1 % Normal 0.9-7.0 [facility] Comment on above: Performed By: #### C BC #### [facility] [address] [place] [address] Dr. Judd Andrade Erythrocyte distribution width (RBC) [Ratio] 13.0 % Normal 11.0-15.0 [facility] Comment on above: Performed By: #### C BC #### [facility] [address] [place] [address] Dr. Judd Andrade Hematocrit (Bld) [Volume fraction] 41.9 % Normal 36.0-48.0 [facility] Comment on above: Performed By: #### C BC #### [facility] [address] [place] [address] Dr. Judd Andrade Hemoglobin (Bld) [Mass/Vol] 13.7 g/dL Normal 12.0-16.0 [facility] Comment on above: Performed By: #### C BC #### [facility] [address] [place] [address] Dr. Judd Andrade IG # 0.03 10e3/ul Normal 0.00-0.03 [facility] Comment on above: Performed By: #### C BC #### [facility] [address] [place] [address] Dr. Judd Andrade IG % 0.6 % Critically high 0.0-0.5 [facility] Comment on above: Performed By: #### C BC #### [facility] [address] [place] [address] Dr. Judd Andrade LYMPH # 1.9 103/ul Normal 1.2-3.8 [facility] Comment on above: Performed By: #### C BC #### [facility] [address] [place] [address] Dr. Judd Andrade Lymphocytes/100 WBC (Bld) 34.5 % Normal 20.5-60.0 [facility] Comment on above: Performed By: #### C BC #### [facility] [address] [place] [address] Dr. Judd Andrade MANUAL DIFF REQ NO Normal [facility] Comment on above: Performed By: #### C BC #### [facility] [address] [place] [address] Dr. Judd Andrade MCH (RBC) [Entitic mass] 28.5 pg Normal 26.7-34.0 [facility] Comment on above: Performed By: #### C BC #### [facility] [address] [place] [address] Dr. Judd Andrade MCHC (RBC) [Mass/Vol] 32.7 g/dL Normal 29.9-35.2 [facility] Comment on above: Performed By: #### C BC #### [facility] [address] [place] [address] Dr. Judd Andrade MCV (RBC) [Entitic vol] 87.1 fL Normal 81.0-99.0 [facility] Comment on above: Performed By: #### C BC #### [facility] [address] [place] [address] Dr. Judd Andrade MONO # 0.6 103/ul Normal 0.3-0.8 [facility] Comment on above: Performed By: #### C BC #### [facility] [address] [place] [address] Dr. Judd Andrade Monocytes/100 WBC (Bld) 10.4 % Normal 1.7-12.0 [facility] Comment on above: Performed By: #### C BC #### [facility] [address] [place] [address] Dr. Judd Andrade NEUT # 2.8 103/ul Normal 1.4-6.5 [facility] Comment on above: Performed By: #### C BC #### [facility] [address] [place] [address] Dr. Judd Andrade Neutrophils/100 WBC (Bld) 51.8 % Normal 43.0-75.0 [facility] Comment on above: Performed By: #### C BC #### [facility] [address] [place] [address] Dr. Judd Andrade Platelet mean volume (Bld) [Entitic vol] 10.5 fL Normal 9.5-13.5 [facility] Comment on above: Performed By: #### C BC #### [facility] [address] [place] [address] Dr. Judd Andrade PLT 270 103/ul Normal 150-450 [facility] Comment on above: Performed By: #### C BC #### [facility] [address] [place] [address] Dr. Judd Andrade RBC 4.81 106/ul Normal 4.20-5.40 [facility] Comment on above: Performed By: #### C BC #### [facility] [address] [place] [address] Dr. Judd Andrade WBC 5.4 103/ul Normal 4.0-11.0 [facility] Comment on above: Performed By: #### C BC #### [facility] [address] [place] [address] Dr. Judd Andrade CRPon 12-30-2021 CRP [Mass/Vol] mg/L Normal <=1.0 [facility] Comment on above: Performed By: #### C BC #### [facility] [address] [place] [address] Dr. Judd Andrade PROF 14(COMP METB)on 022 Albumin [Mass/Vol] 3.9 g/dL Normal 3.4-5.0 [facility] Comment on above: Performed By: #### C BC #### [facility] [address] [place] [address] Dr. Judd Andrade Albumin/Globulin [Mass ratio] 1.0 {ratio} Normal [facility] Comment on above: Performed By: #### C BC #### [facility] [address] [place] [address] Dr. Judd Andrade ALP [Catalytic activity/Vol] 64 U/L Normal 46-116 [facility] Comment on above: Performed By: #### C BC #### [facility] [address] [place] [address] Dr. Judd Andrade ALT [Catalytic activity/Vol] 50 U/L Normal 14-59 [facility] Comment on above: Performed By: #### C BC #### [facility] [address] [place] [address] Dr. Judd Andrade Anion gap [Moles/Vol] 11.1 mmol/L Normal [facility] Comment on above: Performed By: #### C BC #### [facility] [address] [place] [address] Dr. Judd Andrade AST [Catalytic activity/Vol] 28 U/L Normal 15-37 [facility] Comment on above: Performed By: #### C BC #### [facility] [address] [place] [address] Dr. Judd Andrade Bilirubin [Mass/Vol] 0.5 mg/dL Normal 0.2-1.0 [facility] Comment on above: Performed By: #### C BC #### [facility] [address] [address] [address] Judd Andrade Calcium [Mass/Vol] 8.9 mg/dL Normal 8.5-10.1 [facility] Comment on above: Performed By: #### C BC #### [facility] [address] [address] [address] Judd Andrade Chloride [Moles/Vol] 101 mmol/L Normal 98-107 [facility] Comment on above: Performed By: #### C BC #### [facility] [address] [address] [address] Judd Andrade CO2 [Moles/Vol] 29.4 mmol/L Normal 21.0-32.0 [facility] Comment on above: Performed By: #### C BC #### [facility] [address] [address] [address] Judd Andrade Creatinine [Mass/Vol] 0.73 mg/dL Normal 0.55-1.02 [facility] Comment on above: Performed By: #### C BC #### [facility] [address] [address] [address] Judd Andrade EGFR-AF FIJIAN >60 Normal >=60 [facility] Comment on above: Performed By: #### C BC #### [facility] [address] [place] [address] Dr. Judd Andrade EGFR-NON AF FIJIAN >60 Normal >=60 [facility] Comment on above: Performed By: #### C BC #### [facility] [address] [address] [address] Judd Andrade Globulin (S) [Mass/Vol] 3.8 g/dL Normal [facility] Comment on above: Performed By: #### C BC #### [facility] [address] [place] [address] Dr. Judd Andrade Glucose [Mass/Vol] 139 mg/dL Critically high 74-106 [facility] Comment on above: Performed By: #### C BC #### [facility] [address] [address] [address] Judd Andrade Potassium [Moles/Vol] 3.5 mmol/L Normal 3.5-5.1 [facility] Comment on above: Performed By: #### C BC #### [facility] [address] [place] [address] Dr. Judd Andrade Protein [Mass/Vol] 7.7 g/dL Normal 6.4-8.2 [facility] Comment on above: Performed By: #### C BC #### [facility] [address] [address] [address] Judd Andrade Sodium [Moles/Vol] 138 mmol/L Normal 136-145 [facility] Comment on above: Performed By: #### C BC #### [facility] [address] [place] [address] Dr. Judd Andraed Urea nitrogen [Mass/Vol] 12.0 mg/dL Normal 7.0-18.0 [facility] Comment on above: Performed By: #### C BC #### [facility] [address] [place] [address] Dr. Judd Andrade Urea nitrogen/Creatinine [Mass ratio] 16.4 mg/mg Normal [facility] Comment on above: Performed By: #### C BC #### [facility] [address] [place] [address] Dr. Judd Andrade XR CHEST 2 Von 12-29-2021 XR CHEST 2 V STUDY: Chest exam TECHNIQUE:XR CHEST 2 V COMPARISON: Acute abdominal series 02/07/2020 HISTORY: Acute COVID-19 FINDINGS: The lungs are well expanded. No pneumothorax. No pleural effusion. No consolidation. Cardiomediastinal silhouette is normal in size and position. No acute osseous abnormality. IMPRESSION: No acute cardiopulmonary findings. Electronically authenticated by: ARTEMIO DIXON Date: 2021-12-29 20:49 Normal [facility] TRYPTASEon 12-27-2021 Tryptase 4.5 ug/L Normal 2.2-13.2 [facility] Comment on above: Performed By: #### C BC #### [facility] [address] [place] [address] Dr. Judd Andrade CBC AUTO DIFFon 12-23-2021 BASO # 0.0 103/ul Normal 0.0-0.1 [facility] Comment on above: Performed By: #### H STROPN, CMP #### [facility] [address] [place] [address] Dr. Judd Andrade Basophils/100 WBC (Bld) 0.7 % Normal 0.2-2.0 [facility] Comment on above: Performed By: #### H STROPN, CMP #### [facility] [address] [place] [address] Dr. Judd Andrade EO # 0.0 103/ul Normal 0.0-0.7 [facility] Comment on above: Performed By: #### H STROPN, CMP #### [facility] [address] [place] [address] Dr. Judd Andrade Eosinophils/100 WBC (Bld) 0.0 % Critically low 0.9-7.0 [facility] Comment on above: Performed By: #### H STROPN, CMP #### [facility] [address] [place] [address] Dr. Judd Andrade Erythrocyte distribution width (RBC) [Ratio] 13.2 % Normal 11.0-15.0 [facility] Comment on above: Performed By: #### H STROPN, CMP #### [facility] [address] [place] [address] Dr. Judd Andrade Hematocrit (Bld) [Volume fraction] 42.1 % Normal 36.0-48.0 [facility] Comment on above: Performed By: #### H STROPN, CMP #### [facility] [address] [place] [address] Dr. Judd Andrade Hemoglobin (Bld) [Mass/Vol] 13.7 g/dL Normal 12.0-16.0 [facility] Comment on above: Performed By: #### H STROPN, CMP #### [facility] [address] [place] [address] Dr. Judd Andrade IG # 0.01 10e3/ul Normal 0.00-0.03 [facility] Comment on above: Performed By: #### H STROPN, CMP #### [facility] [address] [address] [address] Judd Andrade IG % 0.3 % Normal 0.0-0.5 [facility] Comment on above: Performed By: #### H STROPN, CMP #### [facility] [address] [address] [address] Judd Andrade LYMPH # 0.7 103/ul Critically low 1.2-3.8 [facility] Comment on above: Performed By: #### H STROPN, CMP #### [facility] [address] [address] [address] Judd Andrade Lymphocytes/100 WBC (Bld) 24.1 % Normal 20.5-60.0 [facility] Comment on above: Performed By: #### H STROPN, CMP #### [facility] [address] [address] [address] Judd Andrade MANUAL DIFF REQ NO Normal [facility] Comment on above: Performed By: #### H STROPN, CMP #### [facility] [address] [address] [address] Judd Andrade MCH (RBC) [Entitic mass] 28.4 pg Normal 26.7-34.0 [facility] Comment on above: Performed By: #### H STROPN, CMP #### [facility] [address] [address] [address] Judd Andrade MCHC (RBC) [Mass/Vol] 32.5 g/dL Normal 29.9-35.2 [facility] Comment on above: Performed By: #### H STROPN, CMP #### [facility] [address] [address] [address] Judd Andrade MCV (RBC) [Entitic vol] 87.2 fL Normal 81.0-99.0 [facility] Comment on above: Performed By: #### H STROPN, CMP #### [facility] [address] [address] [address] Judd Andrade MONO # 0.5 103/ul Normal 0.3-0.8 [facility] Comment on above: Performed By: #### H STROPN, CMP #### [facility] [address] [address] [address] Judd Andrade Monocytes/100 WBC (Bld) 16.9 % Critically high 1.7-12.0 [facility] Comment on above: Performed By: #### H STROPN, CMP #### [facility] [address] [address] [address] Judd Andrade NEUT # 1.8 103/ul Normal 1.4-6.5 [facility] Comment on above: Performed By: #### H STROPN, CMP #### [facility] [address] [place] [address] Dr. Judd Andrade Neutrophils/100 WBC (Bld) 58.0 % Normal 43.0-75.0 [facility] Comment on above: Performed By: #### H STROPN, CMP #### [facility] [address] [place] [address] Dr. Judd Andrade Platelet mean volume (Bld) [Entitic vol] 9.9 fL Normal 9.5-13.5 [facility] Comment on above: Performed By: #### H STROPN, CMP #### [facility] [address] [place] [address] Dr. Judd Andrade PLT 210 103/ul Normal 150-450 [facility] Comment on above: Performed By: #### H STROPN, CMP #### [facility] [address] [place] [address] Dr. Judd Andrade RBC 4.83 106/ul Normal 4.20-5.40 [facility] Comment on above: Performed By: #### H STROPN, CMP #### [facility] [address] [place] [address] Dr. Judd Andrade WBC 3.1 103/ul Critically low 4.0-11.0 [facility] Comment on above: Performed By: #### H STROPN, CMP #### [facility] [address] [place] [address] Dr. Judd Andrade IRONon 08-30-2022 Iron [Mass/Vol] 35.0 ug/dL Critically low 50.0-170.0 [facility] Comment on above: Performed By: #### C BC #### [facility] [address] [place] [address] Dr. Judd Andrade PROF 14(COMP METB)on 022 Albumin [Mass/Vol] 3.9 g/dL Normal 3.4-5.0 [facility] Comment on above: Performed By: #### C BC #### [facility] [address] [place] [address] Dr. Judd Andrade Albumin/Globulin [Mass ratio] 1.0 {ratio} Normal [facility] Comment on above: Performed By: #### C BC #### [facility] [address] [place] [address] Dr. Judd Andrade ALP [Catalytic activity/Vol] 70 U/L Normal 46-116 [facility] Comment on above: Performed By: #### C BC #### [facility] [address] [place] [address] Dr. Judd Andrade ALT [Catalytic activity/Vol] 43 U/L Normal 14-59 [facility] Comment on above: Performed By: #### C BC #### [facility] [address] [place] [address] Dr. Judd Andrade Anion gap [Moles/Vol] 11.5 mmol/L Normal [facility] Comment on above: Performed By: #### C BC #### [facility] [address] [place] [address] Dr. Judd Andrade AST [Catalytic activity/Vol] 33 U/L Normal 15-37 [facility] Comment on above: Performed By: #### C BC #### [facility] [address] [place] [address] Dr. Judd Andrade Bilirubin [Mass/Vol] 0.3 mg/dL Normal 0.2-1.0 [facility] Comment on above: Performed By: #### C BC #### [facility] [address] [place] [address] Dr. Judd Andrade Calcium [Mass/Vol] 8.9 mg/dL Normal 8.5-10.1 [facility] Comment on above: Performed By: #### C BC #### [facility] [address] [place] [address] Dr. Judd Andrade Chloride [Moles/Vol] 101 mmol/L Normal 98-107 [facility] Comment on above: Performed By: #### C BC #### [facility] [address] [place] [address] Dr. Judd Andrade CO2 [Moles/Vol] 31.1 mmol/L Normal 21.0-32.0 [facility] Comment on above: Performed By: #### C BC #### [facility] [address] [place] [address] Dr. Judd Andrade Creatinine [Mass/Vol] 0.69 mg/dL Normal 0.55-1.02 [facility] Comment on above: Performed By: #### C BC #### [facility] [address] [place] [address] Dr. Judd Andrade EGFR-AF FIJIAN >60 Normal >=60 [facility] Comment on above: Performed By: #### C BC #### [facility] [address] [place] [address] Dr. Judd Andrade EGFR-NON AF FIJIAN >60 Normal >=60 [facility] Comment on above: Performed By: #### C BC #### [facility] [address] [place] [address] Dr. Judd Andrade Globulin (S) [Mass/Vol] 3.8 g/dL Normal [facility] Comment on above: Performed By: #### C BC #### [facility] [address] [place] [address] Dr. Judd Andrade Glucose [Mass/Vol] 103 mg/dL Normal 74-106 [facility] Comment on above: Performed By: #### C BC #### [facility] [address] [place] [address] Dr. Judd Andrade Potassium [Moles/Vol] 3.6 mmol/L Normal 3.5-5.1 [facility] Comment on above: Performed By: #### C BC #### [facility] [address] [address] [address] Judd Andrade Protein [Mass/Vol] 7.7 g/dL Normal 6.4-8.2 [facility] Comment on above: Performed By: #### C BC #### [facility] [address] [address] [address] Judd Andrade Sodium [Moles/Vol] 140 mmol/L Normal 136-145 [facility] Comment on above: Performed By: #### C BC #### [facility] [address] [address] [address] Judd Andrade Urea nitrogen [Mass/Vol] 11.0 mg/dL Normal 7.0-18.0 [facility] Comment on above: Performed By: #### C BC #### [facility] [address] [place] [address] Dr. Judd Andrade Urea nitrogen/Creatinine [Mass ratio] 15.9 mg/mg Normal [facility] Comment on above: Performed By: #### C BC #### [facility] [address] [place] [address] Dr. Judd Andrade PROTIMEon 12-23-2021 INR Coag (PPP) [Relative time] 1.04 {INR} Normal [facility] Comment on above: Performed By: #### H TERAPN, CMP #### [facility] [address] [place] [address] Dr. Judd Andrade INR GUIDELINES SEE BELOW Normal [facility] Comment on above: Result Comment: PRIETO RED INR: 2.0 - 3.0 CONDITIONS NOT LISTED BELOW 2.5 - 3.5 FOR PROSTHETIC HEART VALVE REPLACEMENT 2.5 - 3.5 RECURRENT THROMBOSIS Performed By: #### H TERAPN, CMP #### [facility] [address] [place] [address] Dr. Judd Andrade PT Coag (PPP) [Time] 11.2 s Normal 9.0-11.6 [facility] Comment on above: Performed By: #### H TERAPN, CMP #### [facility] [address] [place] [address] Dr. Judd Andrade PTTon 12-23-2021 aPTT Coag (Bld) [Time] 31.5 s Normal 22.3-36.2 [facility] Comment on above: Performed By: #### H STROPN, CMP #### [facility] [address] [place] [address] Dr. Judd Andrade ER URINE PROFILEon Bilirubin Ql (U) Negative Normal NEGATIVE [facility] Comment on above: Performed By: #### H STROPN, CMP #### [facility] [address] [place] [address] Dr. Judd Andrade Clarity (U) CLEAR Normal CLEAR [facility] Comment on above: Performed By: #### H STROPN, CMP #### [facility] [address] [place] [address] Dr. Judd Andrade Color (U) LT. YELLOW Normal YELLOW [facility] Comment on above: Performed By: #### H TERAPN, CMP #### [facility] [address] [place] [address] Dr. Judd Andrade ERUAHRomina A micrscopic examination will be performed if indicated. Normal [facility] Comment on above: Performed By: #### H STROPN, CMP #### [facility] [address] [place] [address] Dr. Judd Andrade Glucose Ql (U) Negative Normal NEGATIVE [facility] Comment on above: Performed By: #### H TERAPN, CMP #### [facility] [address] [place] [address] Dr. Judd Andrade Hemoglobin Ql (U) TRACE-INTACT Abnormal NEGATIVE [facility] Comment on above: Performed By: #### H STROPN, CMP #### [facility] [address] [place] [address] Dr. Judd Andrade Ketones Ql (U) Negative Normal NEGATIVE [facility] Comment on above: Performed By: #### H STROPN, CMP #### [facility] [address] [place] [address] Dr. Judd Andrade LEUKOCYTES Negative Normal NEGATIVE [facility] Comment on above: Performed By: #### H DEB, CMP #### [facility] [address] [place] [address] Dr. Judd Andrade Nitrite Ql (U) Negative Normal NEGATIVE [facility] Comment on above: Performed By: #### H DEB, CMP #### [facility] [address] [place] [address] Dr. Judd Andrade pH (U) 6.0 [pH] Normal 5-9 [facility] Comment on above: Performed By: #### H DEB, CMP #### [facility] [address] [place] [address] Dr. Judd Andrade SPEC GRAVITY 1.005 Normal 1.005-<=1.025 [facility] Comment on above: Performed By: #### H DEB, CMP #### [facility] [address] [place] [address] Dr. Judd Andrade UA PROTEIN Negative Normal NEGATIVE/ TRACE [facility] Comment on above: Performed By: #### H DEB, CMP #### [facility] [address] [place] [address] Dr. Judd Andrade UR MICRO IND INDICATED Normal [facility] Comment on above: Performed By: #### H DEB, CMP #### [facility] [address] [place] [address] Dr. Judd Andrade Urobilinogen Qn (U) 0.2 {Carol'U}/dL Normal 0.2 - 1. 0 [facility] Comment on above: Performed By: #### H DEB, CMP #### [facility] [address] [place] [address] Dr. Judd Andrade URINE MICROSCOPIC ONLYon BACTERIA NONE SEEN Normal NONE SEEN [facility] Comment on above: Performed By: #### H DEB, CMP #### [facility] [address] [place] [address] Dr. Judd Andrade Bacteria identified Cx Nom (U) NOT INDICATED Normal [facility] Comment on above: Performed By: #### H DEB, CMP #### [facility] [address] [place] [address] Dr. Judd Andrade CAST NONE SEEN Normal NONE SEEN [facility] Comment on above: Performed By: #### H STROPN, CMP #### [facility] [address] [address] [address] Judd Andrade Crystals LM Nom (Urine sed) NONE SEEN Normal NONE SEEN [facility] Comment on above: Performed By: #### H STROPN, CMP #### [facility] [address] [address] [address] Judd Andrade Epithelial cells LM Ql (Urine sed) FEW Abnormal NONE SEEN /RARE [facility] Comment on above: Performed By: #### H STROPN, CMP #### [facility] [address] [address] [address] Judd Andrade MUCOUS NONE SEEN Normal NONE SEEN [facility] Comment on above: Performed By: #### H STROPN, CMP #### [facility] [address] [place] [address] Dr. Judd Andrade RBC 0-2 Normal 0-2 [facility] Comment on above: Performed By: #### H STROPN, CMP #### [facility] [address] [address] [address] Judd Andrade WBC NONE SEEN Normal NONE SEEN [facility] Comment on above: Performed By: #### H STROPN, CMP #### [facility] [address] [place] [address] Dr. Judd Andrade Encounters Encounter Date Encounter Type Care Provider Facility Start: 06-30-2023 End: 06-30-2023 ambulatory KATIE SOW Not Available Start: 06-24-2023 End: 06-24-2023 ambulatory VALE HI Not Available Start: 03-23-2023 End: 03-23-2023 ambulatory KATIE SOW Not Available Start: 09-24-[address] JOHN WHITE . Facili ty:[facility] Start: 09-22-2022 End: 09-23-[address] KATIE SOW . Facility:[facility] Start: 08-29-2022 End: 08-30-[address] JOHN WHITE . Facility:[facility] Start: 08-11-2022 End: 08-12-[address] JOHN WHITE . Facility:[facility] Start: 07-28-2022 End: 07-29-[address] KATIE SOW . Facility:[facility] Start: 07-03-2022 End: 07-04-[address] JOHN WHITE . Facility:[facility] Start: 06-29-2022 Encounter for antibo dy response examination DR JOHN WHITE . [facility] Start: 06-26-2022 End: 06-27-[address] JOHN WHITE . Facility:[facility] Start: 06-26-2022 End: 06-27-2022 Encounter for antibody response examination DR JOHN WHITE . Facility:[facility] Start: 06-05-2022 End: 06-06-[address] JOHN WHITE . Facility:[facility] Start: 06-03-2022 End: 06-04-[address] JOHN WHITE . Facility:[facility] Start: 06-02-2022 End: 06-02-[address] JOHN WHITE . Facility:[facility] Start: 06-02-2022 End: 06-02-[address] JOHN WHITE . Facility:[facility] Start: 02-24-[address] JOHN WHITE . Facili ty:[facility] Start: 02-10-2022 End: 02-11-[address] JOHN WHITE . Facility:[facility] Start: 01-27-[address] KATIE SOW . Facili ty:[facility] Start: 01-21-[address] KATIE SOW . Facili ty:[facility] Start: 01-16-2022 End: 01-17-[address] JOHN WHITE . Facility:[facility] Start: 01-15-2022 End: 01-15-2022 ambulatory ADELAIDE MAJANO . Facility:[facility] Start: 12-30-2021 End: 01-24-[address] JOHN WHITE . Facility:[facility] Start: 12-27-2021 End: 12-28-[address] JOHN WHITE . Facility:[facility] Start: 12-24-2021 End: 12-24-[address] JOHN WHITE . Facility:[facility] Start: 12-23-2021 End: 12-24-[address] JOHN WHITE . Facility:[facility] Start: 12-20-2021 End: 12-20-[address] BRYAN PENA Facility:[facility] Start: 12-04-[address] [facility] Payers Date Payer Category Payer Unknown [id number] 2.16.84 0.1.961209.3.579.2.593 1965 Unknown [id number] 2.16.84 0.1.890554.3.579.2.593 1965 Unknown [id number] 2.16.84 0.1.774589.3.579.2.593 1965 Unknown [id number] 2.16.84 0.1.638592.3.579.2.593 1965 Unknown [id number] 2..84 0.1.125982.3.579.2.593 1965 Unknown [id number] 2.16.84 0.1.499867.3.579.2.593 1965 Unknown [id number] 2.16.84 0.1.530703.3.579.2.593 1965 Unknown [id number] 2.16.84 0.1.805698.3.579.2.593 1965 Unknown [id number] 2.16.84 0.1.899543.3.579.2.593 1965 Unknown [id number] 2.16.84 0.1.802092.3.579.2.593 1965 Unknown [id number] 2.16.84 0.1.271644.3.579.2.593 1965 Unknown [id number] 2.16.84 0.1.386549.3.579.2.593 1965 Unknown [id number] 2.16.84 0.1.189753.3.579.2.593 1965 Unknown [id number] 2.16.84 0.1.583582.3.579.2.593 1965 Unknown [id number] 2.16.84 0.1.275451.3.579.2.593 1965 Unknown [id number] 2.16.84 0.1.820563.3.579.2.593 1965 Unknown [id number] 2.16.84 0.1.901973.3.579.2.593 1965 Unknown [id number] 2.16.84 0.1.415662.3.579.2.593 1965 Unknown [id number] 2.16.84 0.1.723865.3.579.2.593 1965 Unknown [id number] 2.16.84 0.1.899213.3.579.2.593 1965 Unknown [id number] 2.16.84 0.1.142610.3.579.2.593 1965 Unknown [id number] 2.16.84 0.1.011395.3.579.2.593 1965 Unknown [id number] 2.16.84 0.1.355590.3.579.2.593 1965 Unknown [id number] 2.16.84 0.1.041728.3.579.2.593 1965 Unknown [id number] 2.16.84 0.1.243839.3.579.2.1259 1965 Unknown [id number] 2.16.84 0.1.773226.3.579.2.1259 1965 Unknown [id number] 2.16.840 .1.350153.3.579.2.1259 1959 Self-pay [id number] 1959 Unknown [id number] 1959 Unknown [id number] Summary Purpose Family History No Family History Records FoundNo Family History Records Found Advance Directives No Advanced Directives Records FoundNo Advanced Directives Records Found Additional Source Comments INFORMATION SOURCE (unrecogn ized section and content) DATE CREATED AUTHOR 10/02/2022 [facility] DATE CREATED AUTHOR AUTHOR'S BUNNYIZ JULIA 07/01/2023 [facility] FOR RECORDS PERTAINING TO PATIENTS WHO ARE OR HAVE BEEN ENROLLED IN A CHEMICAL DEPENDENCY/SUBSTANCEABUSE PROGRAM, SOME INFORMATION MAY BE OMITTED. This clinical summary was aggregated from multiple sources. Caution should be exercised in using it in the provision of clinical care. This summary normalizes information from multiple sources, and as a consequence, information in this document may materially change the coding, format and clinical context of patient data. In addition, data may be omitted in some cases. CLINICAL DECISIONS SHOULD BE BASED ON THE PRIMARY CLINICAL RECORDS. [facility]. provides no warranty or guarantee of the accuracy or completeness of information in this document.
[2023-07-05 11:45] LABS: Basophils Absolute Auto 0.1 10^3/uL (0.0-0.1); Basophils Percent Auto 1.1 % (0.2-2.0); Eosinophils Absolute Auto 0.1 10^3/uL (0.0-0.7); Eosinophils Percent Auto 2.4 % (0.9-7.0); Hematocrit 42.9 % (36.0-48.0); Lymphocytes Absolute Auto 1.5 10^3/uL (1.2-3.8); Mean Corpuscular HGB Conc 32.6 g/dL (29.9-35.2); Mean Corpuscular Hemoglobin 29.5 pg (26.7-34.0); Mean Corpuscular Volume 90.3 fL (81.0-99.0); Monocytes Absolute Auto 0.5 10^3/uL (0.3-0.8); Monocytes Percent Auto 9.8 % (1.7-12.0); Neutrophils Absolute Auto 2.5 10^3/uL (1.4-6.5); Neutrophils Percent Auto 54.7 % (43.0-75.0); Platelet Count 261 10^3/uL (150-450); Red Blood Count 4.75 10^6/uL (4.20-5.40); Red Cell Distribution Width 13.2 % (11.0-15.0); White Blood Count 4.6 10^3/uL (4.0-11.0)
== END 2023-07-05 11:20 | disposition home or self-care (01) ==
LOC: LAB 11:20
PROVIDERS: PCP Family Medicine; Visit Provider Family Medicine
DX: L25.9 Unspecified contact dermatitis, unspecified cause (principal)
CPT/HCPCS: 36415; 85025

== ENCOUNTER 2023-07-12 16:25 | Outpatient (OUT) | payer OTHER, SELFPAY ==
--- NOTE | 2023-07-12 16:28 | US_ITS ---
The [address] [address] Patient Name: YULIA CASTANO MRN: [id number] date: 1965 Sex: F Assigned Patient Location: US Current Patient Location: Accession/Order Number: [id number] Exam Date: 07/12/2023 16:50 Report Date: 07/13/2023 07:18 At the request of: KATIE SOW Procedure: US pelvis w/ transvaginal EXAMINATION: US pelvis w/ transvaginal HISTORY: thickened endometrium R93.89 COMPARISON: 07/28/2022 FINDINGS: The uterus is normal in size, contour and echotexture measuring 7.1 x 3.7 x 4.3 cm. Complex area in the superior myometrium measuring 1.4 cm, a fibroid is favored. The uterus is anteverted. Endometrium measures 8.6 mm, thickened for postmenopausal patient. Area of anechoic echogenicity could represent fluid measuring 2 mm. Some color flow is identified in the endometrial The ovaries are not visualized No free fluid US/US pelvis w/ transvaginal IMPRESSION: The endometrium measures 8.6 mm with some color flow. This is thickened for a postmenopausal patient. Consider histopathologic diagnosis Electronically authenticated by: ELLYN ALVAREZ Date: 07/13/2023 07:18
== END 2023-07-12 16:26 | disposition home or self-care (01) ==
LOC: US 16:25
PROVIDERS: PCP Family Medicine; Visit Provider Obstetrics & Gynecology
DX: R93.89 Abnormal findings on diagnostic imaging of other specified body structures (principal); R10.2 Pelvic and perineal pain
CPT/HCPCS: 76830; 76856

== ENCOUNTER 2023-07-19 14:38 | Outpatient (OUT) | payer OTHER, SELFPAY ==
--- NOTE | 2023-07-19 14:41 | ECG_ITS ---
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
--- OUTSIDE RECORDS SUMMARY | 2023-07-19 14:59 | XMS_ITS | CCD ---
Author Organization [facility] Care Team Providers Care Slip Presser Name Role Phone ABELINOY ., DR LOPEZ [...] LOPEZ Admchao Unavailable HOY ., DR LOPEZ Attending Unavailable [...] LOPEZ Admitting Unavailable HOY ., DR LOPEZ Admitting Unavailable [...] Unavailable HOY ., DR LOPEZ Admitting Unavailable JUANJOSE ., DR WILSON Admitting Unavailable [...] Unavailable JUANJOSE ., DR WILSON Attending Unavailable GRANT, DR ELLYN Dougherty Consulting Unavailable HOY ., [...] Unavailable JEAN, DR BRYAN Henley Admitting Unavailable JEAN, DR BRYAN Henley Attending Unavailable JEAN, DR BRYAN Henley Consulting Unavailable HOY ., DR LOPEZ Primary Care Unavailable DEMETRA, DR IRIS Chavez Consulting Unavailabl e HOY ., DR LOPEZ Attending Unavailable HOY ., DR LOPEZ Primary Care Unavailable HOY ., DR LOPEZ Admchao Unavailable HOY ., DR LOPEZ Consulting Unavailable HOY ., DR OLPEZ Attending Unavailable HOY ., DR LOPEZ Primary Care Unavailable HOY ., DR LOPEZ Admitting Unavailable HOY ., DR LOPEZ Attending Unavailable HOY ., DR LOPEZ Consulting Unavailable HOY ., DR LOPEZ Primary Care Unavailable HOY ., DR LOPEZ Admitting Unavailable MEAGAN, LINDA Consulting Unavailable VALE HI Attending Unavailable RALF RENDON Referring Unavailable KATIE SOW Attending Unavailable KATIE SOW Attending Unavailable Allergies Allergy Classification Reported Allergen(s) Allergy Type Date of Onset Reaction(s) Facility (1 source) Azithromycin Drug Allergy 12-20-2021 [facility] (2 sources) Imipramine Drug Allergy 10-05-2012 [facility] (2 sources) Sulfonamides (Antibiotic) Drug allergy (disorder) 10-05-2012 [facility] (2 sources) E.E.S. 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 Admission #: [id number] Family : Order #: [id number] CLICK HERE TO VIEW EXAM RADIOLOGY REPORT [...] breast cancer at age 40. LOCATION: [facility] BREAST COMPOSITION: Almost entirely fatty. FINDINGS: DIAGNOSTIC [...] Castaneda MD on 09/22/2022 at 15:03 Normal [facility] US BREAST RIGHT LIMITEDon US BREAST RIGHT LIMITED Patient: YULIA CASTANO Exam Date: 09/22/2022 : 1965 Gender:F Ordering : DR KATIE SOW . Admission #: [id number] Family : Order #: [id number] CLICK HERE TO VIEW EXAM RADIOLOGY REPORT [...] breast cancer at age 40. LOCATION: [facility] BREAST COMPOSITION: Almost entirely fatty. FINDINGS: DIAGNOSTIC [...] Castaneda MD on 09/22/2022 at 15:03 Normal [facility] US ST HEAD_NECKon 08-31-[address] HEAD_NECK [...] by: GABO STRONG Date: 2022-08-31 08:09 Normal [facility] US PELVIS AND TRANSVAGon US PELVIS AND [...] GABO STRONG Date: 2022-07-29 06:32 Normal [facility] INSULINon 07-04-2022 Insulin 6.2 uIU/mL Normal 2.6-24.9 [facility] Comment on above: Performed By: #### H DEB, CMP #### [facility] [address] [place] [address] Dr. Judd Andrade CBC AUTO DIFFon 07-03-2022 BASO # 0.0 103/ul Normal 0.0-0.1 [facility] Comment on above: Performed By: #### C BC #### [facility] [address] [address] [address] Judd Andrade Basophils/100 WBC (Bld) 1.1 % Normal 0.2-2.0 [facility] Comment on above: Performed By: #### C BC #### [facility] [address] [address] [address] Judd Andrade EO # 0.1 103/ul Normal 0.0-0.7 [facility] Comment on above: Performed By: #### C BC #### [facility] [address] [place] [address] Dr. Judd Andrade Eosinophils/100 WBC (Bld) 3.6 % Normal 0.9-7.0 [facility] Comment on above: Performed By: #### C BC #### [facility] [address] [place] [address] Dr. Judd Andrade Erythrocyte distribution width (RBC) [Ratio] 13.6 % Normal 11.0-15.0 [facility] Comment on above: Performed By: #### C BC #### [facility] [address] [place] [address] Dr. Judd Andrade Hematocrit (Bld) [Volume fraction] 41.8 % Normal 36.0-48.0 [facility] Comment on above: Performed By: #### C BC #### [facility] [address] [place] [address] Dr. Judd Andrade Hemoglobin (Bld) [Mass/Vol] 13.5 g/dL Normal 12.0-16.0 [facility] Comment on above: Performed By: #### C BC #### [facility] [address] [place] [address] Dr. Judd Andrade IG # 0.01 10e3/ul Normal 0.00-0.03 [facility] Comment on above: Performed By: #### C BC #### [facility] [address] [place] [address] Dr. Judd Andrade IG % 0.3 % Normal 0.0-0.5 [facility] Comment on above: Performed By: #### C BC #### [facility] [address] [place] [address] Dr. Judd Andrade LYMPH # 1.4 103/ul Normal 1.2-3.8 [facility] Comment on above: Performed By: #### C BC #### [facility] [address] [place] [address] Dr. Judd Andrade Lymphocytes/100 WBC (Bld) 38.4 % Normal 20.5-60.0 [facility] Comment on above: Performed By: #### C BC #### [facility] [address] [place] [address] Dr. Judd Andrade MANUAL DIFF REQ NO Normal [facility] Comment on above: Performed By: #### C BC #### [facility] [address] [place] [address] Dr. Judd Andrade MCH (RBC) [Entitic mass] 28.2 pg Normal 26.7-34.0 [facility] Comment on above: Performed By: #### C BC #### [facility] [address] [place] [address] Dr. Judd Andrdae MCHC (RBC) [Mass/Vol] 32.3 g/dL Normal 29.9-35.2 [facility] Comment on above: Performed By: #### C BC #### [facility] [address] [place] [address] Dr. Judd Andrade MCV (RBC) [Entitic vol] 87.4 fL Normal 81.0-99.0 [facility] Comment on above: Performed By: #### C BC #### [facility] [address] [place] [address] Dr. Judd Andrade MONO # 0.4 103/ul Normal 0.3-0.8 [facility] Comment on above: Performed By: #### C BC #### [facility] [address] [place] [address] Dr. Judd Andrade Monocytes/100 WBC (Bld) 10.4 % Normal 1.7-12.0 [facility] Comment on above: Performed By: #### C BC #### [facility] [address] [address] [address] Judd Andrade NEUT # 1.7 103/ul Normal 1.4-6.5 [facility] Comment on above: Performed By: #### C BC #### [facility] [address] [address] [address] Judd Andrade Neutrophils/100 WBC (Bld) 46.2 % Normal 43.0-75.0 [facility] Comment on above: Performed By: #### C BC #### [facility] [address] [place] [address] Dr. Judd Andrade Platelet mean volume (Bld) [Entitic vol] 9.6 fL Normal 9.5-13.5 [facility] Comment on above: Performed By: #### C BC #### [facility] [address] [place] [address] Dr. Judd Andrade PLT 246 103/ul Normal 150-450 [facility] Comment on above: Performed By: #### C BC #### [facility] [address] [place] [address] Dr. Judd Andrade RBC 4.78 106/ul Normal 4.20-5.40 [facility] Comment on above: Performed By: #### C BC #### [facility] [address] [place] [address] Dr. Judd Andrade WBC 3.7 103/ul Critically low 4.0-11.0 [facility] Comment on above: Performed By: #### C BC #### [facility] [address] [place] [address] Dr. Judd Andrade FREE THYROXINE INDEX T7on FTI 3.20 Normal 1.30-4.50 [facility] Comment on above: Performed By: #### T 7, LIPID, TSH, CMP #### [facility] [address] [place] [address] Dr. Judd Andrade T3U 36.0 % Normal 30.0-39.0 [facility] Comment on above: Performed By: #### T 7, LIPID, TSH, CMP #### [facility] [address] [address] [address] Judd Andrade T4 [Mass/Vol] 8.90 ug/dL Normal 4.80-13.90 [facility] Comment on above: Performed By: #### T 7, LIPID, TSH, CMP #### [facility] [address] [address] [address] Judd Andrade GLYCOHEMOGLOBIN A1Con 2022 ADA RECOMMENDATION SEE BELOW Normal [facility] Comment on above: Result Comment: ADA RECOMMENDED LIMIT 4.0 - 6.0 ADA THERAPEUTIC TARGET < 7.0 ACTION SUGGESTED > 7.0 Performed By: #### C BC #### [facility] [address] [address] [address] Judd Andrade Glucose [Mass/Vol] 120 mg/dL Normal [facility] Comment on above: Performed By: #### C BC #### [facility] [address] [address] [address] Judd Andrade HbA1c (Bld) [Mass fraction] 5.8 % Normal 4.5-6.2 [facility] Comment on above: Performed By: #### C BC #### [facility] [address] [address] [address] Judd Andrade IRONon 07-03-2022 Iron [Mass/Vol] 67.0 ug/dL Normal 50.0-170.0 [facility] Comment on above: Performed By: #### V ITAD, IRON #### [facility] [address] [address] [address] Judd Andrade LIPID PROFILEon 07-03-2022 CHOL-HDL RATIO NORM SEE BELOW Normal [facility] Comment on above: Result Comment: 3.3 - 4.4 LOW RISK 4.4 - 7.1 AVERAGE RISK 7.1 - 11.0 MODERATE RISK >11.0 HIGH RISK Performed By: #### T 7, LIPID, TSH, CMP #### [facility] [address] [address] [address] Judd Andrade Cholesterol [Mass/Vol] 216 mg/dL Critically high <=200 [facility] Comment on above: Performed By: #### T 7, LIPID, TSH, CMP #### [facility] [address] [address] [address] Judd Andrade Cholesterol in HDL [Mass/Vol] 87 mg/dL Critically high 40-60 [facility] Comment on above: Performed By: #### T 7, LIPID, TSH, CMP #### [facility] [address] [address] [address] Judd Andrade Cholesterol in LDL [Mass/Vol] 124.2 mg/dL Normal [facility] Comment on above: Performed By: #### T 7, LIPID, TSH, CMP #### [facility] [address] [address] [address] Judd Andrade Cholesterol.total/Ch olesterol in HDL [Mass ratio] 2.5 {ratio} Normal [facility] Comment on above: Performed By: #### T 7, LIPID, TSH, CMP #### [facility] [address] [address] [address] Judd Andrade HDL NORMAL > or = 60 mg/dl - LO W CARDIOVASCULAR RISK <40 mg/dl - HIGH CARDIOVASCULAR RISK Normal [facility] Comment on above: Performed By: #### T 7, LIPID, TSH, CMP #### [facility] [address] [address] [address] Judd Andrade LDL CALC NORMAL SEE BELOW Normal [facility] Comment on above: Result Comment: <100 mg/dl OPTIMAL 100 - 129 mg/dl NEAR OR ABOVE OPTIMAL 130 - 159 mg/dl BORDERLINE HIGH 160 - 189 mg/dl HIGH >190 mg/dl VERY HIGH Performed By: #### T 7, LIPID, TSH, CMP #### [facility] [address] [address] [address] Judd Andrade Triglyceride [Mass/Vol] 24 mg/dL Normal <=150 [facility] Comment on above: Performed By: #### T 7, LIPID, TSH, CMP #### [facility] [address] [address] [address] Judd Andrade VLDL CALC 4.8 mg/dL Normal [facility] Comment on above: Performed By: #### T 7, LIPID, TSH, CMP #### [facility] [address] [place] [address] Dr. Judd Andrade PROF 14(COMP METB)on 023 Albumin [Mass/Vol] 4.0 g/dL Normal 3.4-5.0 [facility] Comment on above: Performed By: #### T 7, LIPID, TSH, CMP #### [facility] [address] [place] [address] Dr. Judd Andrade Albumin/Globulin [Mass ratio] 1.1 {ratio} Normal [facility] Comment on above: Performed By: #### T 7, LIPID, TSH, CMP #### [facility] [address] [place] [address] Dr. Judd Andrade ALP [Catalytic activity/Vol] 78 U/L Normal 46-116 [facility] Comment on above: Performed By: #### T 7, LIPID, TSH, CMP #### [facility] [address] [place] [address] Dr. Judd Andrade ALT [Catalytic activity/Vol] 29 U/L Normal 14-59 [facility] Comment on above: Performed By: #### T 7, LIPID, TSH, CMP #### [facility] [address] [place] [address] Dr. Judd Andrade Anion gap [Moles/Vol] 5.6 mmol/L Normal [facility] Comment on above: Performed By: #### T 7, LIPID, TSH, CMP #### [facility] [address] [place] [address] Dr. Judd Andrade AST [Catalytic activity/Vol] 23 U/L Normal 15-37 [facility] Comment on above: Performed By: #### T 7, LIPID, TSH, CMP #### [facility] [address] [place] [address] Dr. Judd Andrade Bilirubin [Mass/Vol] 0.5 mg/dL Normal 0.2-1.0 [facility] Comment on above: Performed By: #### T 7, LIPID, TSH, CMP #### [facility] [address] [place] [address] Dr. Judd Andrade Calcium [Mass/Vol] 8.9 mg/dL Normal 8.5-10.1 [facility] Comment on above: Performed By: #### T 7, LIPID, TSH, CMP #### [facility] [address] [address] [address] Judd Andrade Chloride [Moles/Vol] 105 mmol/L Normal 98-107 [facility] Comment on above: Performed By: #### T 7, LIPID, TSH, CMP #### [facility] [address] [address] [address] Judd Andrade CO2 [Moles/Vol] 32.0 mmol/L Normal 21.0-32.0 [facility] Comment on above: Performed By: #### T 7, LIPID, TSH, CMP #### [facility] [address] [place] [address] Dr. Judd Andrade Creatinine [Mass/Vol] 0.52 mg/dL Critically low 0.55-1.02 [facility] Comment on above: Performed By: #### T 7, LIPID, TSH, CMP #### [facility] [address] [place] [address] Dr. Judd Andrade EGFR-AF [place] >60 Normal >=60 [facility] Comment on above: Performed By: #### T 7, LIPID, TSH, CMP #### [facility] [address] [place] [address] Dr. Judd Andrade EGFR-NON AF [place] >60 Normal >=60 [facility] Comment on above: Performed By: #### T 7, LIPID, TSH, CMP #### [facility] [address] [place] [address] Dr. Judd Andrade Globulin (S) [Mass/Vol] 3.6 g/dL Normal [facility] Comment on above: Performed By: #### T 7, LIPID, TSH, CMP #### [facility] [address] [place] [address] Dr. Judd Andrade Glucose [Mass/Vol] 89 mg/dL Normal 74-106 [facility] Comment on above: Performed By: #### T 7, LIPID, TSH, CMP #### [facility] [address] [place] [address] Dr. Judd Andrade Potassium [Moles/Vol] 4.2 mmol/L Normal 3.5-5.1 [facility] Comment on above: Performed By: #### T 7, LIPID, TSH, CMP #### [facility] [address] [place] [address] Dr. Judd Andrade Protein [Mass/Vol] 7.6 g/dL Normal 6.4-8.2 [facility] Comment on above: Performed By: #### T 7, LIPID, TSH, CMP #### [facility] [address] [place] [address] Dr. Judd Andrade Sodium [Moles/Vol] 139 mmol/L Normal 136-145 [facility] Comment on above: Performed By: #### T 7, LIPID, TSH, CMP #### [facility] [address] [place] [address] Dr. Judd Andrade Urea nitrogen [Mass/Vol] 11.0 mg/dL Normal 7.0-18.0 [facility] Comment on above: Performed By: #### T 7, LIPID, TSH, CMP #### [facility] [address] [place] [address] Dr. Judd Andrade Urea nitrogen/Creatinine [Mass ratio] 21.2 mg/mg Normal [facility] Comment on above: Performed By: #### T 7, LIPID, TSH, CMP #### [facility] [address] [place] [address] Dr. Judd Andrade TSHon 07-03-2022 TSH 1.037 uIU/mL Normal 0.358-3.740 [facility] Comment on above: Performed By: #### T 7, LIPID, TSH, CMP #### [facility] [address] [place] [address] Dr. Judd Andrade VITAMIN D 25 OHon 07-03-2022 VIT D 25-OH 32.8 ng/mL Normal [facility] Comment on above: Performed By: #### V ITAD, IRON #### [facility] [address] [place] [address] Dr. Judd Andrade VIT D RANGES SEE BELOW Normal [facility] Comment on above: Result Comment: <20 ng/mL Vit D deficient 20 - <30 ng/mL Vit D insufficient 30 - 100 ng/mL Vit D sufficient >100 ng/mL Potential Toxicity Performed By: #### V CARMELO IRON #### [facility] [address] [place] [address] Dr. Judd Andrade BORDETELLA PERTUSSIS AB IGGo n 06-30-2022 B pertussis IgG Ab 3.88 index Invalid Interpretation Code 0.00-0.94 [facility] Comment on above: Result Comment: Clie nt Requested Flag Negative <0.95 Equivocal 0.95 - 1.04 Positive >1.04 Performed By: #### C BC #### [facility] [address] [place] [address] Dr. Judd Andrade BORDETELLA PERTUSSIS AB IGMo n 06-30-2022 B pertussis IgM Ab <1.0 Normal 0.0-0.9 [facility] Comment on above: Result Comment: Nega tive <1.0 Borderline 1.0 - 1.1 Positive >1.1 Performed By: #### Sara BOYD, CMP #### [facility] [address] [place] [address] Dr. Judd Andrade [id number] 2022 Hhbcf-6-[id number], Serum 158 mg/dL Normal 101-187 [facility] Comment on above: Performed By: #### C BC #### [facility] [address] [place] [address] Dr. Judd Andrade CBC AUTO DIFFon 06-03-2022 BASO # 0.0 103/ul Normal 0.0-0.1 [facility] Comment on above: Performed By: #### Sara BOYD, CMP #### [facility] [address] [place] [address] Dr. Judd Andrade Basophils/100 WBC (Bld) 0.6 % Normal 0.2-2.0 [facility] Comment on above: Performed By: #### Sara BOYD, CMP #### [facility] [address] [place] [address] Dr. Judd Andrade EO # 0.0 103/ul Normal 0.0-0.7 [facility] Comment on above: Performed By: #### H STROPN, CMP #### [facility] [address] [place] [address] Dr. Judd Andrade Eosinophils/100 WBC (Bld) 0.6 % Critically low 0.9-7.0 [facility] Comment on above: Performed By: #### H STROPN, CMP #### [facility] [address] [place] [address] Dr. Judd Andrade Erythrocyte distribution width (RBC) [Ratio] 13.5 % Normal 11.0-15.0 [facility] Comment on above: Performed By: #### H STROPN, CMP #### [facility] [address] [place] [address] Dr. Judd Andrade Hematocrit (Bld) [Volume fraction] 42.4 % Normal 36.0-48.0 [facility] Comment on above: Performed By: #### H STROPN, CMP #### [facility] [address] [place] [address] Dr. Judd Andrade Hemoglobin (Bld) [Mass/Vol] 13.4 g/dL Normal 12.0-16.0 [facility] Comment on above: Performed By: #### H STROPN, CMP #### [facility] [address] [place] [address] Dr. Judd Andrade IG # 0.01 10e3/ul Normal 0.00-0.03 [facility] Comment on above: Performed By: #### H STROPN, CMP #### [facility] [address] [place] [address] Dr. Judd Andrade IG % 0.2 % Normal 0.0-0.5 [facility] Comment on above: Performed By: #### H STROPN, CMP #### [facility] [address] [place] [address] Dr. Judd Andrade LYMPH # 1.1 103/ul Critically low 1.2-3.8 [facility] Comment on above: Performed By: #### H STROPN, CMP #### [facility] [address] [address] [address] Judd Andrade Lymphocytes/100 WBC (Bld) 23.5 % Normal 20.5-60.0 [facility] Comment on above: Performed By: #### H STROPN, CMP #### [facility] [address] [place] [address] Dr. Judd Andrade MANUAL DIFF REQ NO Normal [facility] Comment on above: Performed By: #### H STROPN, CMP #### [facility] [address] [address] [address] Judd Andrade MCH (RBC) [Entitic mass] 28.9 pg Normal 26.7-34.0 [facility] Comment on above: Performed By: #### H STROPN, CMP #### [facility] [address] [place] [address] Dr. Judd Andrade MCHC (RBC) [Mass/Vol] 31.6 g/dL Normal 29.9-35.2 [facility] Comment on above: Performed By: #### H STROPN, CMP #### [facility] [address] [place] [address] Dr. Judd Andrade MCV (RBC) [Entitic vol] 91.6 fL Normal 81.0-99.0 [facility] Comment on above: Performed By: #### H STROPN, CMP #### [facility] [address] [place] [address] Dr. Judd Andrade MONO # 0.8 103/ul Normal 0.3-0.8 [facility] Comment on above: Performed By: #### H STROPN, CMP #### [facility] [address] [place] [address] Dr. Judd Andrade Monocytes/100 WBC (Bld) 16.5 % Critically high 1.7-12.0 [facility] Comment on above: Performed By: #### H STROPN, CMP #### [facility] [address] [place] [address] Dr. Judd Andrade NEUT # 2.7 103/ul Normal 1.4-6.5 [facility] Comment on above: Performed By: #### H STROPN, CMP #### [facility] [address] [place] [address] Dr. Judd Andrade Neutrophils/100 WBC (Bld) 58.6 % Normal 43.0-75.0 [facility] Comment on above: Performed By: #### H STROPN, CMP #### [facility] [address] [place] [address] Dr. Judd Andrade Platelet mean volume (Bld) [Entitic vol] 9.8 fL Normal 9.5-13.5 [facility] Comment on above: Performed By: #### H TERAPN, CMP #### [facility] [address] [place] [address] Dr. Judd Andrade PLT 252 103/ul Normal 150-450 [facility] Comment on above: Performed By: #### H TERAPN, CMP #### [facility] [address] [place] [address] Dr. Judd Andrade RBC 4.63 106/ul Normal 4.20-5.40 [facility] Comment on above: Performed By: #### H TERAPN, CMP #### [facility] [address] [place] [address] Dr. Judd Andrade WBC 4.7 103/ul Normal 4.0-11.0 [facility] Comment on above: Performed By: #### H TERAPN, CMP #### [facility] [address] [place] [address] Dr. Judd Andrade PROF 14(COMP METB)on 023 Albumin [Mass/Vol] 4.0 g/dL Normal 3.4-5.0 [facility] Comment on above: Performed By: #### H STROPN, CMP #### [facility] [address] [place] [address] Dr. Judd Andrade Albumin/Globulin [Mass ratio] 1.0 {ratio} Normal [facility] Comment on above: Performed By: #### H STROPN, CMP #### [facility] [address] [place] [address] Dr. Judd Andrade ALP [Catalytic activity/Vol] 77 U/L Normal 46-116 [facility] Comment on above: Performed By: #### H TERAPN, CMP #### [facility] [address] [address] [address] Judd Andrade ALT [Catalytic activity/Vol] 33 U/L Normal 14-59 [facility] Comment on above: Performed By: #### H TERAPN, CMP #### [facility] [address] [address] [address] Judd Andrade Anion gap [Moles/Vol] 8.0 mmol/L Normal [facility] [facility] Comment on above: Performed By: #### H TERAPN, CMP #### [facility] [address] [place] [address] Dr. Judd Andrade AST [Catalytic activity/Vol] 28 U/L Normal 15-37 [facility] Comment on above: Performed By: #### H DEB, CMP #### [facility] [address] [place] [address] Dr. Judd Andrade Bilirubin [Mass/Vol] 0.6 mg/dL Normal 0.2-1.0 [facility] Comment on above: Performed By: #### H DEB, CMP #### [facility] [address] [place] [address] Dr. Judd Andrade Calcium [Mass/Vol] 9.3 mg/dL Normal 8.5-10.1 [facility] Comment on above: Performed By: #### H TERAPN, CMP #### [facility] [address] [address] [address] Judd Andrade Chloride [Moles/Vol] 103 mmol/L Normal 98-107 [facility] Comment on above: Performed By: #### H TERAPN, CMP #### [facility] [address] [address] [address] Judd Andrade CO2 [Moles/Vol] 33.6 mmol/L Critically high 21.0-32.0 [facility] Comment on above: Performed By: #### H TERAPN, CMP #### [facility] [address] [place] [address] Dr. Judd Andrade Creatinine [Mass/Vol] 0.59 mg/dL Normal 0.55-1.02 [facility] Comment on above: Performed By: #### H STROPN, CMP #### [facility] [address] [place] [address] Dr. Judd Andrade EGFR-AF [place]TH [place]AN >60 Normal >=60 [facility] Comment on above: Performed By: #### H STROPN, CMP #### [facility] [address] [address] [address] Judd Andrade EGFR-NON AF [place] >60 Normal >=60 [facility] Comment on above: Performed By: #### H STROPN, CMP #### [facility] [address] [place] [address] Dr. Judd Andrade Globulin (S) [Mass/Vol] 4.0 g/dL Normal [facility] Comment on above: Performed By: #### H TERAPN, CMP #### [facility] [address] [place] [address] Dr. Judd Andrade Glucose [Mass/Vol] 130 mg/dL Critically high 74-106 [facility] Comment on above: Performed By: #### H TERAPN, CMP #### [facility] [address] [place] [address] Dr. Judd Andrade Potassium [Moles/Vol] 3.6 mmol/L Normal 3.5-5.1 [facility] Comment on above: Performed By: #### H STROPN, CMP #### [facility] [address] [place] [address] Dr. Judd Andrade Protein [Mass/Vol] 8.0 g/dL Normal 6.4-8.2 [facility] Comment on above: Performed By: #### H STROPN, CMP #### [facility] [address] [address] [address] Judd Andrade Sodium [Moles/Vol] 141 mmol/L Normal 136-145 [facility] Comment on above: Performed By: #### H STROPN, CMP #### [facility] [address] [place] [address] Dr. Judd Andrade Urea nitrogen [Mass/Vol] 8.0 mg/dL Normal 7.0-18.0 [facility] Comment on above: Performed By: #### H DEB, CMP #### [facility] [address] [address] [address] Judd Andrade Urea nitrogen/Creatinine [Mass ratio] 13.6 mg/mg Normal [facility] Comment on above: Performed By: #### H DEB, CMP #### [facility] [address] [address] [address] Judd Andrade TROPONIN, HIGH SENSITIVITYon 06-03-2022 HSTROP <4.0 Normal 4.0-51.3 [facility] Comment on above: Result Comment: CUT- OFF POINTS HAVE BEEN ESTABLISHED BASED ON THE FOURTH UNIVERSAL DEFINITIONS OF MYOCARDIAL INFARCTION. THE UPPER REFERENCE LIMIT (URL) OF TROPONIN, DEFINED THE 99TH PERCENTILE OF cTnI DISTRIBUTION IN A REFERENCE POPULATION, HAS BEEN CONFIRMED THE DECISION THRESHOLD FOR AL DIAGNOSIS. Performed By: #### H DEB, CMP #### [facility] [address] [address] [address] Judd Andrade XR CHEST 2 Von [...] LINDA RHODES Date: 2022-06-03 12:15 Normal [facility] Covid-19 PCR (CVDTBH)on SARS-CoV-2 (COVID-19) RNA JOLLY+probe Ql (Unsp spec) Not detected Normal NOT DETECTED [facility] Comment on above: Result Comment: This test is not yet approved or cleared by the [place] FDA. When there are no FDA-approved or cleared tests available, and other criteria are met, FDA can make tests available under an emergency access mechanism called an Emergency Use Authorization (EUA). The EUA for this test is supported by the Electronics Worker of Health and Human Service's (HHS's) declaration [...] Performed By: #### H DEB, CMP #### [facility] [address] [place] [address] Dr. Judd Andrade INFLUENZA A AND B [employer] [facility] 06-02 [facility] SEE BELOW Normal [facility] Comment on above: Result Comment: Nega tive for Flu A protein angiten. Infection due to Flu A cannot be ruled out. Flu A angiten in the sample may be below the detection limit of the test. Performed By: #### H DEB, CMP #### [facility] [address] [place] [address] Dr. Judd Andrade [facility] SEE BELOW Normal [facility] Comment on above: Result Comment: Nega tive for Flu B protein antigen. Infection due to Flu B cannot be ruled out. Flu B antigen in the sample may be below the detection limit of the test. Performed By: #### H DEB, CMP #### [facility] [address] [place] [address] Dr. Judd Andrade INFLUENZA A AG Negative Normal NEGATIVE SEE COMMENT [facility] Comment on above: Performed By: #### H DEB, CMP #### [facility] [address] [place] [address] Dr. Judd Andrade INFLUENZA B AG Negative Normal NEGATIVE SEE COMMENT [facility] Comment on above: Performed By: #### H DEB, CMP #### [facility] [address] [place] [address] Dr. Judd Andrade [facility] HEAD_NECKon 02-11-[address] HEAD_NECK EXAM: US [...] by: GABO STRONG Date: 2022-02-11 16:24 Normal [facility] MG MAMM SCREEN 3D SUSANA CADon 02-10-2022 MG MAMM SCREEN 3D SUSANA CAD Patient: YULIA CASTANO Exam Date: 02/10/2022 : 1965 Gender:F Ordering : DR JOHN WHITE . Admission #: [id number] Family : Order #: [id number] CLICK HERE TO VIEW EXAM RADIOLOGY REPORT [...] breast cancer at age 40. LOCATION: [facility] BREAST COMPOSITION: Almost entirely fatty. FINDINGS: DIAGNOSTIC [...] M.D. on 02/11/2022 at 14:20 Normal [facility] XR CHEST 1 Von 01-15-2022 XR CHEST [...] KAREN VALDEZ Date: 2022-01-15 18:39 Normal [facility] CBC AUTO DIFFon 12-30-2021 BASO # 0.0 103/ul Normal 0.0-0.1 [facility] Comment on above: Performed By: #### C BC #### [facility] [address] [address] [address] Judd Andrade Basophils/100 WBC (Bld) 0.6 % Normal 0.2-2.0 [facility] Comment on above: Performed By: #### C BC #### [facility] [address] [address] [address] Judd Andrade EO # 0.1 103/ul Normal 0.0-0.7 [facility] Comment on above: Performed By: #### C BC #### [facility] [address] [address] [address] Judd Andrade Eosinophils/100 WBC (Bld) 2.1 % Normal 0.9-7.0 [facility] Comment on above: Performed By: #### C BC #### [facility] [address] [address] [address] Judd Andrade Erythrocyte distribution width (RBC) [Ratio] 13.0 % Normal 11.0-15.0 [facility] Comment on above: Performed By: #### C BC #### [facility] [address] [address] [address] Judd Andrade Hematocrit (Bld) [Volume fraction] 41.9 % Normal 36.0-48.0 [facility] Comment on above: Performed By: #### C BC #### [facility] [address] [address] [address] Judd Andrade Hemoglobin (Bld) [Mass/Vol] 13.7 g/dL Normal 12.0-16.0 [facility] Comment on above: Performed By: #### C BC #### [facility] [address] [place] [address] Dr. Judd Andrade IG # 0.03 10e3/ul Normal 0.00-0.03 [facility] Comment on above: Performed By: #### C BC #### [facility] [address] [place] [address] Dr. Judd Andrade IG % 0.6 % Critically high 0.0-0.5 [facility] Comment on above: Performed By: #### C BC #### [facility] [address] [place] [address] Dr. Judd Andrade LYMPH # 1.9 103/ul Normal 1.2-3.8 [facility] Comment on above: Performed By: #### C BC #### [facility] [address] [place] [address] Dr. Judd Andrade Lymphocytes/100 WBC (Bld) 34.5 % Normal 20.5-60.0 [facility] Comment on above: Performed By: #### C BC #### [facility] [address] [place] [address] Dr. Judd Andrade MANUAL DIFF REQ NO Normal [facility] Comment on above: Performed By: #### C BC #### [facility] [address] [place] [address] Dr. Judd Andrade MCH (RBC) [Entitic mass] 28.5 pg Normal 26.7-34.0 [facility] Comment on above: Performed By: #### C BC #### [facility] [address] [place] [address] Dr. Judd Andrade MCHC (RBC) [Mass/Vol] 32.7 g/dL Normal 29.9-35.2 [facility] Comment on above: Performed By: #### C BC #### [facility] [address] [place] [address] Dr. Judd Andrade MCV (RBC) [Entitic vol] 87.1 fL Normal 81.0-99.0 [facility] Comment on above: Performed By: #### C BC #### [facility] [address] [address] [address] Judd Andrade MONO # 0.6 103/ul Normal 0.3-0.8 [facility] Comment on above: Performed By: #### C BC #### [facility] [address] [place] [address] Dr. Judd Andrade Monocytes/100 WBC (Bld) 10.4 % Normal 1.7-12.0 [facility] Comment on above: Performed By: #### C BC #### [facility] [address] [place] [address] Dr. Judd Andrade NEUT # 2.8 103/ul Normal 1.4-6.5 [facility] Comment on above: Performed By: #### C BC #### [facility] [address] [place] [address] Dr. Judd Andrade Neutrophils/100 WBC (Bld) 51.8 % Normal 43.0-75.0 [facility] Comment on above: Performed By: #### C BC #### [facility] [address] [place] [address] Dr. Judd Andrade Platelet mean volume (Bld) [Entitic vol] 10.5 fL Normal 9.5-13.5 [facility] Comment on above: Performed By: #### C BC #### [facility] [address] [place] [address] Dr. Judd Andrade PLT 270 103/ul Normal 150-450 [facility] Comment on above: Performed By: #### C BC #### [facility] [address] [place] [address] Dr. Judd Andrade RBC 4.81 106/ul Normal 4.20-5.40 [facility] Comment on above: Performed By: #### C BC #### [facility] [address] [place] [address] Dr. Judd Andrade WBC 5.4 103/ul Normal 4.0-11.0 [facility] Comment on above: Performed By: #### C BC #### [facility] [address] [place] [address] Dr. Judd Andrade CRPon 12-30-2021 CRP [Mass/Vol] mg/L Normal <=1.0 [facility] Comment on above: Performed By: #### C BC #### [facility] [address] [place] [address] Dr. Judd Andrade PROF 14(COMP METB)on 022 Albumin [Mass/Vol] 3.9 g/dL Normal 3.4-5.0 [facility] Comment on above: Performed By: #### C BC #### [facility] [address] [place] [address] Dr. Judd Andrade Albumin/Globulin [Mass ratio] 1.0 {ratio} Normal [facility] Comment on above: Performed By: #### C BC #### [facility] [address] [place] [address] Dr. Judd Andrade ALP [Catalytic activity/Vol] 64 U/L Normal 46-116 [facility] Comment on above: Performed By: #### C BC #### [facility] [address] [place] [address] Dr. Judd Andrade ALT [Catalytic activity/Vol] 50 U/L Normal 14-59 [facility] Comment on above: Performed By: #### C BC #### [facility] [address] [place] [address] Dr. Judd Andrade Anion gap [Moles/Vol] 11.1 mmol/L Normal [facility] Comment on above: Performed By: #### C BC #### [facility] [address] [place] [address] Dr. Judd Andrade AST [Catalytic activity/Vol] 28 U/L Normal 15-37 [facility] Comment on above: Performed By: #### C BC #### [facility] [address] [place] [address] Dr. Judd Andrade Bilirubin [Mass/Vol] 0.5 mg/dL Normal 0.2-1.0 [facility] Comment on above: Performed By: #### C BC #### [facility] [address] [place] [address] Dr. Judd Andrade Calcium [Mass/Vol] 8.9 mg/dL Normal 8.5-10.1 [facility] Comment on above: Performed By: #### C BC #### [facility] [address] [place] [address] Dr. Judd Andrade Chloride [Moles/Vol] 101 mmol/L Normal 98-107 [facility] Comment on above: Performed By: #### C BC #### [facility] [address] [place] [address] Dr. Judd Andrade CO2 [Moles/Vol] 29.4 mmol/L Normal 21.0-32.0 [facility] Comment on above: Performed By: #### C BC #### [facility] [address] [place] [address] Dr. Judd Andrade Creatinine [Mass/Vol] 0.73 mg/dL Normal 0.55-1.02 [facility] Comment on above: Performed By: #### C BC #### [facility] [address] [place] [address] Dr. Judd Andrade EGFR-AF [place] >60 Normal >=60 [facility] Comment on above: Performed By: #### C BC #### [facility] [address] [place] [address] Dr. Judd Andrade EGFR-NON AF [place] >60 Normal >=60 [facility] Comment on above: Performed By: #### C BC #### [facility] [address] [place] [address] Dr. Judd Andrade Globulin (S) [Mass/Vol] 3.8 g/dL Normal [facility] Comment on above: Performed By: #### C BC #### [facility] [address] [place] [address] Dr. Judd Andrade Glucose [Mass/Vol] 139 mg/dL Critically high 74-106 [facility] Comment on above: Performed By: #### C BC #### [facility] [address] [place] [address] Dr. Judd Andrade Potassium [Moles/Vol] 3.5 mmol/L Normal 3.5-5.1 [facility] Comment on above: Performed By: #### C BC #### [facility] [address] [address] [address] Jdud Andrade Protein [Mass/Vol] 7.7 g/dL Normal 6.4-8.2 [facility] Comment on above: Performed By: #### C BC #### [facility] [address] [address] [address] Judd Andrade Sodium [Moles/Vol] 138 mmol/L Normal 136-145 [facility] Comment on above: Performed By: #### C BC #### [facility] [address] [place] [address] Dr. Judd Andrade Urea nitrogen [Mass/Vol] 12.0 mg/dL Normal 7.0-18.0 [facility] Comment on above: Performed By: #### C BC #### [facility] [address] [place] [address] Dr. Judd Andrade Urea nitrogen/Creatinine [Mass ratio] 16.4 mg/mg Normal [facility] Comment on above: Performed By: #### C BC #### [facility] [address] [place] [address] Dr. Judd Andrade XR CHEST 2 Von [...] ARTEMIO DIXON Date: 2021-12-29 20:49 Normal [facility] TRYPTASEon 12-27-2021 Tryptase 4.5 ug/L Normal 2.2-13.2 [facility] Comment on above: Performed By: #### C BC #### [facility] [address] [place] [address] Dr. Judd Andrade CBC AUTO DIFFon 12-23-2021 BASO # 0.0 103/ul Normal 0.0-0.1 [facility] Comment on above: Performed By: #### H STROPN, CMP #### [facility] [address] [place] [address] Dr. Judd Andrade Basophils/100 WBC (Bld) 0.7 % Normal 0.2-2.0 [facility] Comment on above: Performed By: #### H STROPN, CMP #### [facility] [address] [place] [address] Dr. Judd Andrade EO # 0.0 103/ul Normal 0.0-0.7 [facility] Comment on above: Performed By: #### H STROPN, CMP #### [facility] [address] [place] [address] Dr. Judd Andrade Eosinophils/100 WBC (Bld) 0.0 % Critically low 0.9-7.0 [facility] Comment on above: Performed By: #### H STROPN, CMP #### [facility] [address] [place] [address] Dr. Judd Andrade Erythrocyte distribution width (RBC) [Ratio] 13.2 % Normal 11.0-15.0 [facility] Comment on above: Performed By: #### H STROPN, CMP #### [facility] [address] [place] [address] Dr. Judd Andrade Hematocrit (Bld) [Volume fraction] 42.1 % Normal 36.0-48.0 [facility] Comment on above: Performed By: #### H STROPN, CMP #### [facility] [address] [place] [address] Dr. Judd Andrade Hemoglobin (Bld) [Mass/Vol] 13.7 g/dL Normal 12.0-16.0 [facility] Comment on above: Performed By: #### H STROPN, CMP #### [facility] [address] [place] [address] Dr. Judd Andrade IG # 0.01 10e3/ul Normal 0.00-0.03 [facility] Comment on above: Performed By: #### H STROPN, CMP #### [facility] [address] [place], [place] [id number] Dr. Judd Andrade IG % 0.3 % Normal 0.0-0.5 [facility] Comment on above: Performed By: #### H TERAPN, CMP #### [facility] [address] [address] [address] Judd Andrade LYMPH # 0.7 103/ul Critically low 1.2-3.8 [facility] Comment on above: Performed By: #### H TERAPN, CMP #### [facility] [address] [address] [address] Judd Andrade Lymphocytes/100 WBC (Bld) 24.1 % Normal 20.5-60.0 [facility] Comment on above: Performed By: #### H DEB, CMP #### [facility] [address] [place] [address] Dr. Judd Andrade MANUAL DIFF REQ NO Normal [facility] Comment on above: Performed By: #### H DEB, CMP #### [facility] [address] [place] [address] Dr. Judd Andrade MCH (RBC) [Entitic mass] 28.4 pg Normal 26.7-34.0 [facility] Comment on above: Performed By: #### H DEB, CMP #### [facility] [address] [place] [address] Dr. Judd Andrade MCHC (RBC) [Mass/Vol] 32.5 g/dL Normal 29.9-35.2 [facility] Comment on above: Performed By: #### H STROPN, CMP #### [facility] [address] [place] [address] Dr. Judd Andrade MCV (RBC) [Entitic vol] 87.2 fL Normal 81.0-99.0 [facility] Comment on above: Performed By: #### H STROPN, CMP #### [facility] [address] [place] [address] Dr. Judd Andrade MONO # 0.5 103/ul Normal 0.3-0.8 [facility] Comment on above: Performed By: #### H STROPN, CMP #### [facility] [address] [address] [address] Judd Andrade Monocytes/100 WBC (Bld) 16.9 % Critically high 1.7-12.0 [facility] Comment on above: Performed By: #### H DEB, CMP #### [facility] [address] [address] [address] Judd Andrade NEUT # 1.8 103/ul Normal 1.4-6.5 [facility] Comment on above: Performed By: #### H DEB, CMP #### [facility] [address] [place] [address] Dr. Judd Andrade Neutrophils/100 WBC (Bld) 58.0 % Normal 43.0-75.0 [facility] Comment on above: Performed By: #### H DEB, CMP #### [facility] [address] [place] [address] Dr. Judd Andrade Platelet mean volume (Bld) [Entitic vol] 9.9 fL Normal 9.5-13.5 [facility] Comment on above: Performed By: #### H DEB, CMP #### [facility] [address] [place] [address] Dr. Judd Andrade PLT 210 103/ul Normal 150-450 [facility] Comment on above: Performed By: #### H DEB, CMP #### [facility] [address] [place] [address] Dr. Judd Andrade RBC 4.83 106/ul Normal 4.20-5.40 [facility] Comment on above: Performed By: #### H DEB, CMP #### [facility] [address] [place] [address] Dr. Judd Andrade WBC 3.1 103/ul Critically low 4.0-11.0 [facility] Comment on above: Performed By: #### H DEB, CMP #### [facility] [address] [place] [address] Dr. Judd Andrade IRONon 12-23-2021 Iron [Mass/Vol] 35.0 ug/dL Critically low 50.0-170.0 [facility] Comment on above: Performed By: #### C BC #### [facility] [address] [place] [address] Dr. Judd Andrade PROF 14(COMP METB)on 022 Albumin [Mass/Vol] 3.9 g/dL Normal 3.4-5.0 [facility] Comment on above: Performed By: #### C BC #### [facility] [address] [place] [address] Dr. Judd Andrade Albumin/Globulin [Mass ratio] 1.0 {ratio} Normal [facility] Comment on above: Performed By: #### C BC #### [facility] [address] [place] [address] Dr. Judd Andrade ALP [Catalytic activity/Vol] 70 U/L Normal 46-116 [facility] Comment on above: Performed By: #### C BC #### [facility] [address] [place] [address] Dr. Judd Andrade ALT [Catalytic activity/Vol] 43 U/L Normal 14-59 [facility] Comment on above: Performed By: #### C BC #### [facility] [address] [place] [address] Dr. Judd Andrade Anion gap [Moles/Vol] 11.5 mmol/L Normal [facility] Comment on above: Performed By: #### C BC #### [facility] [address] [place] [address] Dr. Judd Andrade AST [Catalytic activity/Vol] 33 U/L Normal 15-37 [facility] Comment on above: Performed By: #### C BC #### [facility] [address] [place] [address] Dr. Judd Andrade Bilirubin [Mass/Vol] 0.3 mg/dL Normal 0.2-1.0 [facility] Comment on above: Performed By: #### C BC #### [facility] [address] [place] [address] Dr. Judd Andrade Calcium [Mass/Vol] 8.9 mg/dL Normal 8.5-10.1 [facility] Comment on above: Performed By: #### C BC #### [facility] [address] [place] [address] Dr. Judd Andrade Chloride [Moles/Vol] 101 mmol/L Normal 98-107 [facility] Comment on above: Performed By: #### C BC #### [facility] [address] [address] [address] Judd Andrade CO2 [Moles/Vol] 31.1 mmol/L Normal 21.0-32.0 [facility] Comment on above: Performed By: #### C BC #### [facility] [address] [place] [address] Dr. Judd Andrade Creatinine [Mass/Vol] 0.69 mg/dL Normal 0.55-1.02 [facility] Comment on above: Performed By: #### C BC #### [facility] [address] [place] [address] Dr. Judd Andrade EGFR-AF [place] >60 Normal >=60 [facility] Comment on above: Performed By: #### C BC #### [facility] [address] [place] [address] Dr. Judd Andrade EGFR-NON AF [place] >60 Normal >=60 [facility] Comment on above: Performed By: #### C BC #### [facility] [address] [place] [address] Dr. Judd Andrade Globulin (S) [Mass/Vol] 3.8 g/dL Normal [facility] Comment on above: Performed By: #### C BC #### [facility] [address] [place] [address] Dr. Judd Andrade Glucose [Mass/Vol] 103 mg/dL Normal 74-106 [facility] Comment on above: Performed By: #### C BC #### [facility] [address] [place] [address] Dr. Judd Andrade Potassium [Moles/Vol] 3.6 mmol/L Normal 3.5-5.1 [facility] Comment on above: Performed By: #### C BC #### [facility] [address] [place] [address] Dr. Judd Andrade Protein [Mass/Vol] 7.7 g/dL Normal 6.4-8.2 [facility] Comment on above: Performed By: #### C BC #### [facility] [address] [place] [address] Dr. Judd Andrade Sodium [Moles/Vol] 140 mmol/L Normal 136-145 [facility] Comment on above: Performed By: #### C BC #### [facility] [address] [address] [address] Judd Andrade Urea nitrogen [Mass/Vol] 11.0 mg/dL Normal 7.0-18.0 [facility] Comment on above: Performed By: #### C BC #### [facility] [address] [place] [address] Dr. Judd Andrade Urea nitrogen/Creatinine [Mass ratio] 15.9 mg/mg Normal [facility] Comment on above: Performed By: #### C BC #### [facility] [address] [place] [address] Dr. Judd Andrade PROTIMEon 12-23-2021 INR Coag (PPP) [Relative time] 1.04 {INR} Normal [facility] Comment on above: Performed By: #### H DEB, CMP #### [facility] [address] [place] [address] Dr. Judd Andrade INR GUIDELINES SEE BELOW Normal [facility] Comment on above: Result Comment: PRIETO RED INR: 2.0 - 3.0 CONDITIONS NOT LISTED BELOW 2.5 - 3.5 FOR PROSTHETIC HEART VALVE REPLACEMENT 2.5 - 3.5 RECURRENT THROMBOSIS Performed By: #### H DEB, CMP #### [facility] [address] [place] [address] Dr. Judd Andrade PT Coag (PPP) [Time] 11.2 s Normal 9.0-11.6 [facility] Comment on above: Performed By: #### H DEB, CMP #### [facility] [address] [place] [address] Dr. Judd Andrade PTTon 12-23-2021 aPTT Coag (Bld) [Time] 31.5 s Normal 22.3-36.2 [facility] Comment on above: Performed By: #### H STROPN, CMP #### [facility] [address] [place] [address] Dr. Judd ELENA URINE PROFILEon 2 Bilirubin Ql (U) Negative Normal NEGATIVE [facility] Comment on above: Performed By: #### H STROPN, CMP #### [facility] [address] [place] [address] Dr. Judd Andrade Clarity (U) CLEAR Normal CLEAR [facility] Comment on above: Performed By: #### H STROPN, CMP #### [facility] [address] [place] [address] Dr. Judd Andrade Color (U) LT. YELLOW Normal YELLOW [facility] Comment on above: Performed By: #### H STROPN, CMP #### [facility] [address] [place] [address] Dr. Judd SMITH A micrscopic examination will be performed if indicated. Normal [facility] Comment on above: Performed By: #### H STROPN, CMP #### [facility] [address] [place] [address] Dr. Judd Andrdae Glucose Ql (U) Negative Normal NEGATIVE [facility] Comment on above: Performed By: #### H STROPN, CMP #### [facility] [address] [place] [address] Dr. Judd Andrade Hemoglobin Ql (U) TRACE-INTACT Abnormal NEGATIVE [facility] Comment on above: Performed By: #### H STROPN, CMP #### [facility] [address] [place] [address] Dr. Judd Andrade Ketones Ql (U) Negative Normal NEGATIVE [facility] Comment on above: Performed By: #### H STROPN, CMP #### [facility] [address] [place] [address] Dr. Judd Andrade LEUKOCYTES Negative Normal NEGATIVE [facility] Comment on above: Performed By: #### H STROPN, CMP #### [facility] [address] [place] [address] Dr. Judd Andrade Nitrite Ql (U) Negative Normal NEGATIVE [facility] Comment on above: Performed By: #### H STROPN, CMP #### [facility] [address] [place] [address] Dr. Judd Andrade pH (U) 6.0 [pH] Normal 5-9 [facility] Comment on above: Performed By: #### H STROPN, CMP #### [facility] [address] [place] [address] Dr. Judd Andrade SPEC GRAVITY 1.005 Normal 1.005-<=1.025 [facility] Comment on above: Performed By: #### H STROPN, CMP #### [facility] [address] [place] [address] Dr. Judd Andrade UA PROTEIN Negative Normal NEGATIVE/ TRACE [facility] Comment on above: Performed By: #### H STROPN, CMP #### [facility] [address] [place] [address] Dr. Judd Andrade UR MICRO IND INDICATED Normal [facility] Comment on above: Performed By: #### H STROPN, CMP #### [facility] [address] [place] [address] Dr. Judd Andrade Urobilinogen Qn (U) 0.2 {Carol'U}/dL Normal 0.2 - 1. 0 [facility] Comment on above: Performed By: #### H STROPN, CMP #### [facility] [address] [place] [address] Dr. Judd Andrade URINE MICROSCOPIC ONLYon BACTERIA NONE SEEN Normal NONE SEEN [facility] Comment on above: Performed By: #### H STROPN, CMP #### [facility] [address] [place] [address] Dr. Judd Andrade Bacteria identified Cx Nom (U) NOT INDICATED Normal [facility] Comment on above: Performed By: #### H STROPN, CMP #### [facility] [address] [place] [address] Dr. Judd Andrade CAST NONE SEEN Normal NONE SEEN [facility] Comment on above: Performed By: #### H STROPN, CMP #### [facility] [address] [address] [address] Judd Andrade Crystals LM Nom (Urine sed) NONE SEEN Normal NONE SEEN [facility] Comment on above: Performed By: #### H STROPN, CMP #### [facility] [address] [address] [address] Judd Andrade Epithelial cells LM Ql (Urine sed) FEW Abnormal NONE SEEN /RARE [facility] Comment on above: Performed By: #### H STROPN, CMP #### [facility] [address] [address] [address] Judd Andrade MUCOUS NONE SEEN Normal NONE SEEN [facility] Comment on above: Performed By: #### H STROPN, CMP #### [facility] [address] [address] [address] Judd Andrade RBC 0-2 Normal 0-2 [facility] Comment on above: Performed By: #### H STROPN, CMP #### [facility] [address] [address] [address] Judd Andrade WBC NONE SEEN Normal NONE SEEN [facility] Comment on above: Performed By: #### H STROPN, CMP #### [facility] [address] [address] [address] Judd Andrade Encounters Encounter Date Encounter [...] response examination DR JOHN WHITE . [facility] Start: 06-26-2022 End: 06-27-[address] JOHN [...] Start: 12-04-[address] KATIE SOW . Facili ty:[facility] Payers Date Payer Category Payer Unknown [id number] 2.16.84 [id number] 1965 Unknown [id number] 2.16.84 0.1.796330.3.579.2.593 1965 Unknown [id number] 2.16.84 0.1.231432.3.579.2.593 1965 Unknown [id number] 2.16.84 0.1.105602.3.579.2.593 1965 Unknown [id number] 2.16.84 0.1.684833.3.579.2.593 1965 Unknown [id number] 2.16.84 0.1.431331.3.579.2.593 1965 Unknown [id number] 2.16.84 0.1.465434.3.579.2.593 1965 Unknown [id number] 2.16.84 0.1.186582.3.579.2.593 1965 Unknown [id number] 2.16.84 0.1.860208.3.579.2.593 1965 Unknown [id number] 2.16.84 0.1.204306.3.579.2.593 1965 Unknown [id number] 2.16.84 0.1.807062.3.579.2.593 1965 Unknown [id number] 2.16.84 0.1.671570.3.579.2.593 1965 Unknown [id number] 2.16.84 0.1.470183.3.579.2.593 1965 Unknown [id number] 2.16.84 0.1.912860.3.579.2.593 1965 Unknown [id number] 2.16.84 0.1.667392.3.579.2.593 1965 Unknown [id number] 2.16.84 0.1.189265.3.579.2.593 1965 Unknown [id number] 2.16.84 0.1.453219.3.579.2.593 1965 Unknown [id number] 2.16.84 0.1.519542.3.579.2.593 1965 Unknown [id number] 2.16.84 0.1.563262.3.579.2.593 1965 Unknown [id number] 2.16.84 0.1.637062.3.579.2.593 1965 Unknown [id number] 2.16.84 0.1.401403.3.579.2.593 1965 Unknown [id number] 2.16.84 0.1.936988.3.579.2.593 1965 Unknown [id number] 2.16.84 0.1.874914.3.579.2.593 1965 Unknown [id number] 2.16.84 0.1.042474.3.579.2.593 1965 Unknown [id number] 2.16.84 0.1.038510.3.579.2.1259 1965 Unknown [id number] 2.16.84 0.1.341139.3.579.2.1259 1965 Unknown [id number] 2.16.840 .1.034717.3.579.2.1259 1959 Self-pay [id number] 1959 Unknown [id number] 1959 Unknown [id number] Summary Purpose Family History No Family History Records FoundNo Family History Records Found Advance Directives No Advanced Directives Records FoundNo Advanced Directives Records Found Additional Source Comments INFORMATION SOURCE (unrecogn ized section and content) DATE CREATED AUTHOR 10/02/2022 [facility] DATE CREATED AUTHOR MARGARET DUMONT 07/01/2023 [facility] EPIC FOR RECORDS PERTAINING TO PATIENTS WHO ARE [...] BE BASED ON THE PRIMARY CLINICAL RECORDS. [facility] [employer] [facility] provides no warranty or guarantee of the accuracy or completeness of information in this document.
== END 2023-07-19 14:39 | disposition home or self-care (01) ==
LOC: PST 14:39
PROVIDERS: PCP Family Medicine; Visit Provider Obstetrics & Gynecology
DX: Z01.810 Encounter for preprocedural cardiovascular examination (principal); R93.89 Abnormal findings on diagnostic imaging of other specified body structures; R10.2 Pelvic and perineal pain
CPT/HCPCS: 93005

== ENCOUNTER 2023-08-24 13:59 | Outpatient (OUT) | payer OTHER, SELFPAY | END 2023-08-24 14:00 | disposition home or self-care (01) | LOC: PST 13:59 | PROVIDERS: PCP Family Medicine; Visit Provider Obstetrics & Gynecology | DX: Z01.818 Encounter for other preprocedural examination (principal); R93.89 Abnormal findings on diagnostic imaging of other specified body structures; R10.2 Pelvic and perineal pain ==

== ENCOUNTER 2023-09-14 11:02 | Outpatient (OUT) | payer OTHER, SELFPAY ==
--- OUTSIDE RECORDS SUMMARY | 2023-09-14 11:23 | XMS_ITS | CCD ---
Author Organization [facility] [place] Care Team Providers Care Milieu Counselor Name Role Phone ABELINOY ., DR LOPEZ [...] LOPEZ Admitting Unavailable HOY ., DR LOPEZ Admchao Unavailable [...] Unavailable JUANJOSE ., DR WILSON Attending Unavailable SOUTH TAMWORTH, DR ELLYN Dougherty Consulting Unavailable HOY ., [...] Unavailable JEAN, DR BRYAN Henley Consulting Unavailable CINDY ., DR LOPEZ Primary Care Unavailable DEMETRA, [...] Unavailable HOY ., DR LOPEZ Admitting Unavailable RHODES, WINCHA Consulting Unavailable VALE HI Attending Unavailable RALF RENDON Referring Unavailable KATIE SOW Attending Unavailable KATIE SOW Attending Unavailable Allergies Allergy Classification Reported Allergen(s) Allergy Type Date of Onset Reaction(s) Facility (1 source) Azithromycin Drug Allergy 12-20-2021 [facility] Repository (2 sources) Imipramine Drug Allergy 10-05-2012 [facility] Repository (2 sources) Sulfonamides (Antibiotic) Drug allergy (disorder) 10-05-2012 [facility] Repository (2 sources) E.E.S. Drug allergy (disorder) 10-05-2012 [facility] Rep[facility] Problems Active Problems Problem Classification [...] 06-05-2022 Episodic Other aftercare (4 sources) Other halfway (current) drug therapy; Translations: [OTH SURVEYOR GEODETIC CURRENT DRUG THERAPY] Onset: 12-23-2021 Episodic Other [...] : DR KATIE SOW . Admission #: [id number] Family : Order #: [id number] CLICK HERE TO VIEW EXAM RADIOLOGY REPORT [...] breast cancer at age 40. LOCATION: [facility] BREAST COMPOSITION: Almost entirely fatty. FINDINGS: [...] Castaneda MD on 09/22/2022 at 15:03 Normal [facility] US BREAST RIGHT LIMITEDon US BREAST RIGHT LIMITED Patient: YULIA CASTANO Exam Date: 09/22/2022 : 1965 Gender:F Ordering : DR KATIE SOW . Admission #: [id number] Family : Order #: [id number] CLICK HERE TO VIEW EXAM RADIOLOGY REPORT [...] breast cancer at age 40. LOCATION: [facility] BREAST COMPOSITION: Almost entirely fatty. FINDINGS: [...] Castaneda MD on 09/22/2022 at 15:03 Normal [facility] US ST HEAD_NECKon 08-31-[address] [...] GABO STRONG Date: 2022-08-31 08:09 Normal [facility] US PELVIS AND TRANSVAGon US PELVIS [...] GABO STRONG Date: 2022-07-29 06:32 Normal [facility] INSULINon 07-04-2022 Insulin 6.2 uIU/mL Normal 2.6-24.9 [facility] Comment on above: Performed By: #### H DEB, CMP #### [facility] [address] [place] [address] Dr. Judd Andrade CBC AUTO DIFFon 07-03-2022 BASO # 0.0 103/ul Normal 0.0-0.1 [facility] Comment on above: Performed By: #### C BC #### [facility] [address] [address] [address] Judd Andrade Basophils/100 WBC (Bld) 1.1 % Normal 0.2-2.0 [facility] Comment on above: Performed By: #### C BC #### [facility] [address] [address] [address] Judd Andrade EO # 0.1 103/ul Normal 0.0-0.7 [facility] Comment on above: Performed By: #### C BC #### [facility] [address] [place] [address] Dr. Judd Andrade Eosinophils/100 WBC (Bld) 3.6 % Normal 0.9-7.0 [facility] Comment on above: Performed By: #### C BC #### [facility] [address] [place] [address] Dr. Judd Andrade Erythrocyte distribution width (RBC) [Ratio] 13.6 % Normal 11.0-15.0 [facility] Comment on above: Performed By: #### C BC #### [facility] [address] [place] [address] Dr. Judd Andrade Hematocrit (Bld) [Volume fraction] 41.8 % Normal 36.0-48.0 [facility] Comment on above: Performed By: #### C BC #### [facility] [address] [place] [address] Dr. Judd Andrade Hemoglobin (Bld) [Mass/Vol] 13.5 g/dL Normal 12.0-16.0 [facility] Comment on above: Performed By: #### C BC #### [facility] [address] [place] [address] Dr. Judd Andrade IG # 0.01 10e3/ul Normal 0.00-0.03 [facility] Comment on above: Performed By: #### C BC #### [facility] [address] [place] [address] Dr. Judd Andrade IG % 0.3 % Normal 0.0-0.5 [facility] Comment on above: Performed By: #### C BC #### [facility] [address] [place] [address] Dr. Judd Andrade LYMPH # 1.4 103/ul Normal 1.2-3.8 [facility] Comment on above: Performed By: #### C BC #### [facility] [address] [place] [address] Dr. Judd Andrade Lymphocytes/100 WBC (Bld) 38.4 % Normal 20.5-60.0 [facility] Comment on above: Performed By: #### C BC #### [facility] [address] [place] [address] Dr. Judd Andrade MANUAL DIFF REQ NO Normal [facility] Comment on above: Performed By: #### C BC #### [facility] [address] [place] [address] Dr. Judd Andrade MCH (RBC) [Entitic mass] 28.2 pg Normal 26.7-34.0 [facility] Comment on above: Performed By: #### C BC #### [facility] [address] [place] [address] Dr. Judd Andrade MCHC (RBC) [Mass/Vol] 32.3 g/dL Normal 29.9-35.2 [facility] Comment on above: Performed By: #### C BC #### [facility] [address] [place] [address] Dr. Judd Andrade MCV (RBC) [Entitic vol] 87.4 fL Normal 81.0-99.0 [facility] Comment on above: Performed By: #### C BC #### [facility] [address] [place] [address] Dr. Judd Andrade MONO # 0.4 103/ul Normal 0.3-0.8 [facility] Comment on above: Performed By: #### C BC #### [facility] [address] [place] [address] Dr. Judd Andrade Monocytes/100 WBC (Bld) 10.4 % Normal 1.7-12.0 [facility] Comment on above: Performed By: #### C BC #### [facility] [address] [place] [address] Dr. Judd Andrade NEUT # 1.7 103/ul Normal 1.4-6.5 [facility] Comment on above: Performed By: #### C BC #### [facility] [address] [place] [address] Dr. Judd Andrade Neutrophils/100 WBC (Bld) 46.2 % Normal 43.0-75.0 [facility] Comment on above: Performed By: #### C BC #### [facility] [address] [place] [address] Dr. Judd Andrade Platelet mean volume (Bld) [Entitic vol] 9.6 fL Normal 9.5-13.5 [facility] Comment on above: Performed By: #### C BC #### [facility] [address] [place] [address] Dr. Judd Andrade PLT 246 103/ul Normal 150-450 [facility] Comment on above: Performed By: #### C BC #### [facility] [address] [place] [address] Dr. Judd Andrade RBC 4.78 106/ul Normal 4.20-5.40 [facility] Comment on above: Performed By: #### C BC #### [facility] [address] [place] [address] Dr. Judd Andrade WBC 3.7 103/ul Critically low 4.0-11.0 [facility] Comment on above: Performed By: #### C BC #### [facility] [address] [place] [address] Dr. Judd Andrade FREE THYROXINE INDEX T7on FTI 3.20 Normal 1.30-4.50 [facility] Comment on above: Performed By: #### T 7, LIPID, TSH, CMP #### [facility] [address] [place] [address] Dr. Judd Andrade T3U 36.0 % Normal 30.0-39.0 [facility] Comment on above: Performed By: #### T 7, LIPID, TSH, CMP #### [facility] [address] [address] [address] Judd Andrade T4 [Mass/Vol] 8.90 ug/dL Normal 4.80-13.90 [facility] Comment on above: Performed By: #### T 7, LIPID, TSH, CMP #### [facility] [address] [address] [address] Judd Andrade GLYCOHEMOGLOBIN A1Con 2022 ADA RECOMMENDATION SEE BELOW Normal [facility] Comment on above: Result Comment: ADA RECOMMENDED LIMIT 4.0 - 6.0 ADA THERAPEUTIC TARGET < 7.0 ACTION SUGGESTED > 7.0 Performed By: #### C BC #### [facility] [address] [place] [address] Dr. Judd Andrade Glucose [Mass/Vol] 120 mg/dL Normal [facility] Comment on above: Performed By: #### C BC #### [facility] [address] [place] [address] Dr. Judd Andrade HbA1c (Bld) [Mass fraction] 5.8 % Normal 4.5-6.2 [facility] Comment on above: Performed By: #### C BC #### [facility] [address] [place] [address] Dr. Judd Andrade IRONon 07-03-2022 Iron [Mass/Vol] 67.0 ug/dL Normal 50.0-170.0 [facility] Comment on above: Performed By: #### V ITAD, IRON #### [facility] [address] [place] [address] Dr. Judd Andrade LIPID PROFILEon 07-03-2022 CHOL-HDL RATIO NORM SEE BELOW Normal [facility] Comment on above: Result Comment: 3.3 - 4.4 LOW RISK 4.4 - 7.1 AVERAGE RISK 7.1 - 11.0 MODERATE RISK >11.0 HIGH RISK Performed By: #### T 7, LIPID, TSH, CMP #### [facility] [address] [place] [address] Dr. Judd Andrade Cholesterol [Mass/Vol] 216 mg/dL Critically high <=200 [facility] Comment on above: Performed By: #### T 7, LIPID, TSH, CMP #### [facility] [address] [address] [address] Judd Andrade Cholesterol in HDL [Mass/Vol] 87 mg/dL Critically high 40-60 [facility] Comment on above: Performed By: #### T 7, LIPID, TSH, CMP #### [facility] [address] [address] [address] Judd Andrade Cholesterol in LDL [Mass/Vol] 124.2 mg/dL Normal [facility] Comment on above: Performed By: #### T 7, LIPID, TSH, CMP #### [facility] [address] [address] [address] Judd Andrade Cholesterol.total/Ch olesterol in HDL [Mass ratio] 2.5 {ratio} Normal [facility] Comment on above: Performed By: #### T 7, LIPID, TSH, CMP #### [facility] [address] [address] [address] Judd Andrade HDL NORMAL > or = 60 mg/dl - LO W CARDIOVASCULAR RISK <40 mg/dl - HIGH CARDIOVASCULAR RISK Normal [facility] Comment on above: Performed By: #### T 7, LIPID, TSH, CMP #### [facility] [address] [address] [address] Judd Andrade LDL CALC NORMAL SEE BELOW Normal [facility] Comment on above: Result Comment: <100 mg/dl OPTIMAL 100 - 129 mg/dl NEAR OR ABOVE OPTIMAL 130 - 159 mg/dl BORDERLINE HIGH 160 - 189 mg/dl HIGH >190 mg/dl VERY HIGH Performed By: #### T 7, LIPID, TSH, CMP #### [facility] [address] [address] [address] Judd Andrade Triglyceride [Mass/Vol] 24 mg/dL Normal <=150 [facility] Comment on above: Performed By: #### T 7, LIPID, TSH, CMP #### [facility] [address] [address] [address] Judd Andrade VLDL CALC 4.8 mg/dL Normal [facility] Comment on above: Performed By: #### T 7, LIPID, TSH, CMP #### [facility] [address] [place] [address] Dr. Judd Andrade PROF 14(COMP METB)on 023 Albumin [Mass/Vol] 4.0 g/dL Normal 3.4-5.0 [facility] Comment on above: Performed By: #### T 7, LIPID, TSH, CMP #### [facility] [address] [place] [address] Dr. Judd Andrade Albumin/Globulin [Mass ratio] 1.1 {ratio} Normal [facility] Comment on above: Performed By: #### T 7, LIPID, TSH, CMP #### [facility] [address] [place] [address] Dr. Judd Andrade ALP [Catalytic activity/Vol] 78 U/L Normal 46-116 [facility] Comment on above: Performed By: #### T 7, LIPID, TSH, CMP #### [facility] [address] [place] [address] Dr. Judd Andrade ALT [Catalytic activity/Vol] 29 U/L Normal 14-59 [facility] Comment on above: Performed By: #### T 7, LIPID, TSH, CMP #### [facility] [address] [place] [address] Dr. Judd Andrade Anion gap [Moles/Vol] 5.6 mmol/L Normal [facility] Comment on above: Performed By: #### T 7, LIPID, TSH, CMP #### [facility] [address] [place] [address] Dr. Judd Andrade AST [Catalytic activity/Vol] 23 U/L Normal 15-37 [facility] Comment on above: Performed By: #### T 7, LIPID, TSH, CMP #### [facility] [address] [place] [address] Dr. Judd Andrade Bilirubin [Mass/Vol] 0.5 mg/dL Normal 0.2-1.0 [facility] Comment on above: Performed By: #### T 7, LIPID, TSH, CMP #### [facility] [address] [place] [address] Dr. Judd Andrade Calcium [Mass/Vol] 8.9 mg/dL Normal 8.5-10.1 [facility] Comment on above: Performed By: #### T 7, LIPID, TSH, CMP #### [facility] [address] [place] [address] Dr. Judd Andrade Chloride [Moles/Vol] 105 mmol/L Normal 98-107 [facility] Comment on above: Performed By: #### T 7, LIPID, TSH, CMP #### [facility] [address] [place] [address] Dr. Judd Andrade CO2 [Moles/Vol] 32.0 mmol/L Normal 21.0-32.0 [facility] Comment on above: Performed By: #### T 7, LIPID, TSH, CMP #### [facility] [address] [place] [address] Dr. Judd Andrade Creatinine [Mass/Vol] 0.52 mg/dL Critically low 0.55-1.02 [facility] Comment on above: Performed By: #### T 7, LIPID, TSH, CMP #### [facility] [address] [place] [address] Dr. Judd Andrade EGFR-AF COMORAN >60 Normal >=60 [facility] Comment on above: Performed By: #### T 7, LIPID, TSH, CMP #### [facility] [address] [place] [address] Dr. Judd Andrade EGFR-NON AF COMORAN >60 Normal >=60 [facility] Comment on above: Performed By: #### T 7, LIPID, TSH, CMP #### [facility] [address] [place] [address] Dr. Judd Andrade Globulin (S) [Mass/Vol] 3.6 g/dL Normal [facility] Comment on above: Performed By: #### T 7, LIPID, TSH, CMP #### [facility] [address] [place] [address] Dr. Judd Andrade Glucose [Mass/Vol] 89 mg/dL Normal 74-106 [facility] Comment on above: Performed By: #### T 7, LIPID, TSH, CMP #### [facility] [address] [place] [address] Dr. Judd Andrade Potassium [Moles/Vol] 4.2 mmol/L Normal 3.5-5.1 [facility] Comment on above: Performed By: #### T 7, LIPID, TSH, CMP #### [facility] [address] [place] [address] Dr. Judd Andrade Protein [Mass/Vol] 7.6 g/dL Normal 6.4-8.2 [facility] Comment on above: Performed By: #### T 7, LIPID, TSH, CMP #### [facility] [address] [place] [address] Dr. Judd Andrade Sodium [Moles/Vol] 139 mmol/L Normal 136-145 [facility] Comment on above: Performed By: #### T 7, LIPID, TSH, CMP #### [facility] [address] [place] [address] Dr. Judd Andrade Urea nitrogen [Mass/Vol] 11.0 mg/dL Normal 7.0-18.0 [facility] Comment on above: Performed By: #### T 7, LIPID, TSH, CMP #### [facility] [address] [place] [address] Dr. Judd Andrade Urea nitrogen/Creatinine [Mass ratio] 21.2 mg/mg Normal [facility] Comment on above: Performed By: #### T 7, LIPID, TSH, CMP #### [facility] [address] [place] [address] Dr. Judd Andrade TSHon 07-03-2022 TSH 1.037 uIU/mL Normal 0.358-3.740 [facility] Comment on above: Performed By: #### T 7, LIPID, TSH, CMP #### [facility] [address] [place] [address] Dr. Judd Andrade VITAMIN D 25 OHon 07-03-2022 VIT D 25-OH 32.8 ng/mL Normal [facility] Comment on above: Performed By: #### V ITAD, IRON #### [facility] [address] [place] [address] Dr. Judd Andrade VIT D RANGES SEE BELOW Normal [facility] Comment on above: Result Comment: <20 ng/mL Vit D deficient 20 - <30 ng/mL Vit D insufficient 30 - 100 ng/mL Vit D sufficient >100 ng/mL Potential Toxicity Performed By: #### V ITAD, IRON #### [facility] [address] [place] [address] Dr. Judd Andrade BORDETELLA PERTUSSIS AB IGGo n 06-30-2022 B pertussis IgG Ab 3.88 index Invalid Interpretation Code 0.00-0.94 [facility] Comment on above: Result Comment: Clie nt Requested Flag Negative <0.95 Equivocal 0.95 - 1.04 Positive >1.04 Performed By: #### C BC #### [facility] [address] [place] [address] Dr. Judd Andrade BORDETELLA PERTUSSIS AB IGMo n 06-30-2022 B pertussis IgM Ab <1.0 Normal 0.0-0.9 [facility] Comment on above: Result Comment: Nega tive <1.0 Borderline 1.0 - 1.1 Positive >1.1 Performed By: #### Sara BOYD, CMP #### [facility] [address] [place] [address] Dr. Judd Andrade [id number] 2022 Lsurj-2-Ogrevxiswyn, Serum 158 mg/dL Normal 101-187 [facility] Comment on above: Performed By: #### C BC #### [facility] [address] [place] [address] Dr. Judd Andrade CBC AUTO DIFFon 06-03-2022 BASO # 0.0 103/ul Normal 0.0-0.1 [facility] Comment on above: Performed By: #### H DEB, CMP #### [facility] [address] [place] [address] Dr. Judd Andrade Basophils/100 WBC (Bld) 0.6 % Normal 0.2-2.0 [facility] Comment on above: Performed By: #### H DEB, CMP #### [facility] [address] [address] [address] Judd Andrade EO # 0.0 103/ul Normal 0.0-0.7 [facility] Comment on above: Performed By: #### H STROPN, CMP #### [facility] [address] [place] [address] Dr. Judd Andrade Eosinophils/100 WBC (Bld) 0.6 % Critically low 0.9-7.0 [facility] Comment on above: Performed By: #### H STROPN, CMP #### [facility] [address] [place] [address] Dr. Judd Andrade Erythrocyte distribution width (RBC) [Ratio] 13.5 % Normal 11.0-15.0 [facility] Comment on above: Performed By: #### H STROPN, CMP #### [facility] [address] [place] [address] Dr. Judd Andrade Hematocrit (Bld) [Volume fraction] 42.4 % Normal 36.0-48.0 [facility] Comment on above: Performed By: #### H STROPN, CMP #### [facility] [address] [place] [address] Dr. Judd Andrade Hemoglobin (Bld) [Mass/Vol] 13.4 g/dL Normal 12.0-16.0 [facility] Comment on above: Performed By: #### H STROPN, CMP #### [facility] [address] [place] [address] Dr. Judd Andrade IG # 0.01 10e3/ul Normal 0.00-0.03 [facility] Comment on above: Performed By: #### H STROPN, CMP #### [facility] [address] [place] [address] Dr. Judd Andrade IG % 0.2 % Normal 0.0-0.5 [facility] Comment on above: Performed By: #### H STROPN, CMP #### [facility] [address] [place] [address] Dr. Judd Andrade LYMPH # 1.1 103/ul Critically low 1.2-3.[address] [facility] Comment on above: Performed By: #### H STROPN, CMP #### [facility] [address] [address] [address] Judd Andrade Lymphocytes/100 WBC (Bld) 23.5 % Normal 20.5-60.0 [facility] Comment on above: Performed By: #### H STROPN, CMP #### [facility] [address] [address] [address] Judd Andrade MANUAL DIFF REQ NO Normal [facility] Comment on above: Performed By: #### H STROPN, CMP #### [facility] [address] [place] [address] Dr. Judd Andrade MCH (RBC) [Entitic mass] 28.9 pg Normal 26.7-34.0 [facility] Comment on above: Performed By: #### H STROPN, CMP #### [facility] [address] [place] [address] Dr. Judd Andrade MCHC (RBC) [Mass/Vol] 31.6 g/dL Normal 29.9-35.2 [facility] Comment on above: Performed By: #### H STROPN, CMP #### [facility] [address] [place] [address] Dr. Judd Andrade MCV (RBC) [Entitic vol] 91.6 fL Normal 81.0-99.0 [facility] Comment on above: Performed By: #### H STROPN, CMP #### [facility] [address] [place] [address] Dr. Judd Andrade MONO # 0.8 103/ul Normal 0.3-0.8 [facility] Comment on above: Performed By: #### H STROPN, CMP #### [facility] [address] [place] [address] Dr. Judd Andrade Monocytes/100 WBC (Bld) 16.5 % Critically high 1.7-12.0 [facility] Comment on above: Performed By: #### H STROPN, CMP #### [facility] [address] [place] [address] Dr. Judd Andrade NEUT # 2.7 103/ul Normal 1.4-6.5 [facility] Comment on above: Performed By: #### H STROPN, CMP #### [facility] [address] [place] [address] Dr. Judd Andrade Neutrophils/100 WBC (Bld) 58.6 % Normal 43.0-75.0 [facility] Comment on above: Performed By: #### H TERAPN, CMP #### [facility] [address] [place] [address] Dr. Judd Andrade Platelet mean volume (Bld) [Entitic vol] 9.8 fL Normal 9.5-13.5 [facility] Comment on above: Performed By: #### H DEB, CMP #### [facility] [address] [place] [address] Dr. Judd Andrade PLT 252 103/ul Normal 150-450 [facility] Comment on above: Performed By: #### H DEB, CMP #### [facility] [address] [place] [address] Dr. Judd Andrade RBC 4.63 106/ul Normal 4.20-5.40 [facility] Comment on above: Performed By: #### H DEB, CMP #### [facility] [address] [place] [address] Dr. Judd Andrade WBC 4.7 103/ul Normal 4.0-11.0 [facility] Comment on above: Performed By: #### H DEB, CMP #### [facility] [address] [place] [address] Dr. Judd Andrade PROF 14(COMP METB)on 023 Albumin [Mass/Vol] 4.0 g/dL Normal 3.4-5.0 [facility] Comment on above: Performed By: #### H ETRAPN, CMP #### [facility] [address] [place] [address] Dr. Judd Andrade Albumin/Globulin [Mass ratio] 1.0 {ratio} Normal [facility] Comment on above: Performed By: #### H TERAPN, CMP #### [facility] [address] [place] [address] Dr. Judd Andrade ALP [Catalytic activity/Vol] 77 U/L Normal 46-116 [facility] Comment on above: Performed By: #### H DEB, CMP #### [facility] [address] [address] [address] Judd Andrade ALT [Catalytic activity/Vol] 33 U/L Normal 14-59 [facility] Comment on above: Performed By: #### H TERAPN, CMP #### [facility] [address] [address] [address] Judd Andrade Anion gap [Moles/Vol] 8.0 mmol/L Normal [facility] Comment on above: Performed By: #### H DEB, CMP #### [facility] [address] [place] [address] Dr. Judd Andrade AST [Catalytic activity/Vol] 28 U/L Normal 15-37 [facility] Comment on above: Performed By: #### H DEB, CMP #### [facility] [address] [place] [address] Dr. Judd Andrade Bilirubin [Mass/Vol] 0.6 mg/dL Normal 0.2-1.0 [facility] Comment on above: Performed By: #### H DEB, CMP #### [facility] [address] [place] [address] Dr. Judd Andrade Calcium [Mass/Vol] 9.3 mg/dL Normal 8.5-10.1 [facility] Comment on above: Performed By: #### H DEB, CMP #### [facility] [address] [place] [address] Dr. Judd Andrade Chloride [Moles/Vol] 103 mmol/L Normal 98-107 [facility] Comment on above: Performed By: #### H DEB, CMP #### [facility] [address] [place] [address] Dr. Judd Andrade CO2 [Moles/Vol] 33.6 mmol/L Critically high 21.0-32.0 [facility] Comment on above: Performed By: #### H DEB, CMP #### [facility] [address] [address] [address] Judd Andrade Creatinine [Mass/Vol] 0.59 mg/dL Normal 0.55-1.02 [facility] Comment on above: Performed By: #### H TERAPN, CMP #### [facility] [address] [address] [address] Judd Andrade EGFR-AF COMORAN >60 Normal >=60 [facility] Comment on above: Performed By: #### H STROPN, CMP #### [facility] [address] [address] [address] Judd Andrade EGFR-NON AF COMORAN >60 Normal >=60 [facility] Comment on above: Performed By: #### H TERAPN, CMP #### [facility] [address] [address] [address] Judd Andrade Globulin (S) [Mass/Vol] 4.0 g/dL Normal [facility] Comment on above: Performed By: #### H DEB, CMP #### [facility] [address] [address] [address] Judd Andrade Glucose [Mass/Vol] 130 mg/dL Critically high 74-106 [facility] Comment on above: Performed By: #### H DEB, CMP #### [facility] [address] [address] [address] Judd Andrade Potassium [Moles/Vol] 3.6 mmol/L Normal 3.5-5.1 [facility] Comment on above: Performed By: #### H STROPN, CMP #### [facility] [address] [address] [address] Judd Andrade Protein [Mass/Vol] 8.0 g/dL Normal 6.4-8.2 [facility] Comment on above: Performed By: #### H STROPN, CMP #### [facility] [address] [address] [address] Judd Andrade Sodium [Moles/Vol] 141 mmol/L Normal 136-145 [facility] Comment on above: Performed By: #### H STROPN, CMP #### [facility] [address] [address] [address] Judd Andrade Urea nitrogen [Mass/Vol] 8.0 mg/dL Normal 7.0-18.0 [facility] Comment on above: Performed By: #### H DEB, CMP #### [facility] [address] [place], [place] [address] Dr. Judd Andrade Urea nitrogen/Creatinine [Mass ratio] 13.6 mg/mg Normal [facility] Comment on above: Performed By: #### H DEB, CMP #### [facility] [address] [address] [address] Judd Andrade TROPONIN, HIGH SENSITIVITYon 06-03-2022 HSTROP <4.0 Normal 4.0-51.3 [facility] Comment on above: Result Comment: CUT- OFF POINTS HAVE BEEN ESTABLISHED BASED ON THE FOURTH UNIVERSAL DEFINITIONS OF MYOCARDIAL INFARCTION. THE UPPER REFERENCE LIMIT (URL) OF TROPONIN, DEFINED THE 99TH PERCENTILE OF cTnI DISTRIBUTION IN A REFERENCE POPULATION, HAS BEEN CONFIRMED THE DECISION THRESHOLD FOR PA DIAGNOSIS. Performed By: #### H EDB, CMP #### [facility] [address] [address] [address] Judd Andrade XR CHEST 2 Von [...] LINDA RHODES Date: 2022-06-03 12:15 Normal [facility] Covid-19 PCR (CVDTBH)on SARS-CoV-2 (COVID-19) RNA JOLLY+probe Ql (Unsp spec) Not detected Normal NOT DETECTED [facility] Comment on above: Result Comment: This test is not yet approved or cleared by the [place] FDA. When there are no FDA-approved or cleared tests available, and other criteria are met, FDA can make tests available under an emergency access mechanism called an Emergency Use Authorization (EUA). The EUA for this test is supported by the [place] of Health and Human Service's (HHS's) declaration [...] Performed By: #### H DEB, CMP #### [facility] [address] [place] [address] Dr. Judd Andrade INFLUENZA A AND B [facility] 06-02 [facility] SEE BELOW Normal [facility] Comment on above: Result Comment: Nega tive for Flu A protein angiten. Infection due to Flu A cannot be ruled out. Flu A angiten in the sample may be below the detection limit of the test. Performed By: #### H DEB, CMP #### [facility] [address] [place] [address] Dr. Judd Andrade [facility] SEE BELOW Normal [facility] Comment on above: Result Comment: Nega tive for Flu B protein antigen. Infection due to Flu B cannot be ruled out. Flu B antigen in the sample may be below the detection limit of the test. Performed By: #### H DEB, CMP #### [facility] [address] [place] [address] Dr. Judd Andrade INFLUENZA A AG Negative Normal NEGATIVE SEE COMMENT [facility] Comment on above: Performed By: #### H DEB, CMP #### [facility] [address] [place] [address] Dr. Judd Andrade INFLUENZA B AG Negative Normal NEGATIVE SEE COMMENT [facility] Comment on above: Performed By: #### H DEB, CMP #### [facility] [address] [place] [address] Dr. [address] US ST HEAD_NECKon 02-11-2022 [...] by: GABO STRONG Date: 2022-02-11 16:24 Normal [facility] MAMM SCREEN 3D SUSANA CADon 02-10-2022 MG MAMM SCREEN 3D SUSANA CAD Patient: YULIA CASTANO Exam Date: 02/10/2022 : 1965 Gender:F Ordering : DR JOHN WHITE . Admission #: [id number] Family : Order #: [id number] CLICK HERE TO VIEW EXAM RADIOLOGY REPORT [...] breast cancer at age 40. LOCATION: [facility] BREAST COMPOSITION: Almost entirely fatty. FINDINGS: [...] Strong M.D. on 02/11/2022 at 14:20 Normal [facility] XR CHEST 1 Von 01-15-2022 XR [...] KAREN VALDEZ Date: 2022-01-15 18:39 Normal [facility] CBC AUTO DIFFon 12-30-2021 BASO # 0.0 103/ul Normal 0.0-0.1 [facility] Comment on above: Performed By: #### C BC #### [facility] [address] [place] [address] Dr. Judd Andrade Basophils/100 WBC (Bld) 0.6 % Normal 0.2-2.0 [facility] Comment on above: Performed By: #### C BC #### [facility] [address] [place] [address] Dr. Judd Andrade EO # 0.1 103/ul Normal 0.0-0.7 [facility] Comment on above: Performed By: #### C BC #### [facility] [address] [place] [address] Dr. Judd Andrade Eosinophils/100 WBC (Bld) 2.1 % Normal 0.9-7.0 [facility] Comment on above: Performed By: #### C BC #### [facility] [address] [place] [address] Dr. Judd Andrade Erythrocyte distribution width (RBC) [Ratio] 13.0 % Normal 11.0-15.0 [facility] Comment on above: Performed By: #### C BC #### [facility] [address] [place] [address] Dr. Judd Andrade Hematocrit (Bld) [Volume fraction] 41.9 % Normal 36.0-48.0 [facility] Comment on above: Performed By: #### C BC #### [facility] [address] [place] [address] Dr. Judd Andrade Hemoglobin (Bld) [Mass/Vol] 13.7 g/dL Normal 12.0-16.0 [facility] Comment on above: Performed By: #### C BC #### [facility] [address] [place] [address] Dr. Judd Andrade IG # 0.03 10e3/ul Normal 0.00-0.03 [facility] Comment on above: Performed By: #### C BC #### [facility] [address] [place] [address] Dr. Judd Andrade IG % 0.6 % Critically high 0.0-0.5 [facility] Comment on above: Performed By: #### C BC #### [facility] [address] [place] [address] Dr. Judd Andrade LYMPH # 1.9 103/ul Normal 1.2-3.8 [facility] Comment on above: Performed By: #### C BC #### [facility] [address] [place] [address] Dr. Judd Andrade Lymphocytes/100 WBC (Bld) 34.5 % Normal 20.5-60.0 [facility] Comment on above: Performed By: #### C BC #### [facility] [address] [place] [address] Dr. Judd Andrade MANUAL DIFF REQ NO Normal [facility] Comment on above: Performed By: #### C BC #### [facility] [address] [place] [address] Dr. Judd Andrade MCH (RBC) [Entitic mass] 28.5 pg Normal 26.7-34.0 [facility] Comment on above: Performed By: #### C BC #### [facility] [address] [place] [address] Dr. Judd Andrade MCHC (RBC) [Mass/Vol] 32.7 g/dL Normal 29.9-35.2 [facility] Comment on above: Performed By: #### C BC #### [facility] [address] [place] [address] Dr. Judd Andrade MCV (RBC) [Entitic vol] 87.1 fL Normal 81.0-99.0 [facility] Comment on above: Performed By: #### C BC #### [facility] [address] [address] [address] Judd Andrade MONO # 0.6 103/ul Normal 0.3-0.8 [facility] Comment on above: Performed By: #### C BC #### [facility] [address] [place] [address] Dr. Judd Andrade Monocytes/100 WBC (Bld) 10.4 % Normal 1.7-12.0 [facility] Comment on above: Performed By: #### C BC #### [facility] [address] [place] [address] Dr. Judd Andrade NEUT # 2.8 103/ul Normal 1.4-6.5 [facility] Comment on above: Performed By: #### C BC #### [facility] [address] [place] [address] Dr. Judd Andrade Neutrophils/100 WBC (Bld) 51.8 % Normal 43.0-75.0 [facility] Comment on above: Performed By: #### C BC #### [facility] [address] [place] [address] Dr. Judd Andrade Platelet mean volume (Bld) [Entitic vol] 10.5 fL Normal 9.5-13.5 [facility] Comment on above: Performed By: #### C BC #### [facility] [address] [place] [address] Dr. Judd Andrade PLT 270 103/ul Normal 150-450 [facility] Comment on above: Performed By: #### C BC #### [facility] [address] [place] [address] Dr. Judd Andrade RBC 4.81 106/ul Normal 4.20-5.40 [facility] Comment on above: Performed By: #### C BC #### [facility] [address] [place] [address] Dr. Judd Andrade WBC 5.4 103/ul Normal 4.0-11.0 [facility] Comment on above: Performed By: #### C BC #### [facility] [address] [address] [address] Judd Andrade CRPon 12-30-2021 CRP [Mass/Vol] mg/L Normal <=1.[address] [facility] Comment on above: Performed By: #### C BC #### [facility] [address] [address] [address] Judd Andrade PROF 14(COMP METB)on 022 Albumin [Mass/Vol] 3.9 g/dL Normal 3.4-5.0 [facility] Comment on above: Performed By: #### C BC #### [facility] [address] [address] [address] Judd Andrade Albumin/Globulin [Mass ratio] 1.0 {ratio} Normal [facility] Comment on above: Performed By: #### C BC #### [facility] [address] [place] [address] Dr. Judd Andrade ALP [Catalytic activity/Vol] 64 U/L Normal 46-116 [facility] Comment on above: Performed By: #### C BC #### [facility] [address] [place] [address] Dr. Judd Andrade ALT [Catalytic activity/Vol] 50 U/L Normal 14-59 [facility] Comment on above: Performed By: #### C BC #### [facility] [address] [place] [address] Dr. Judd Andrade Anion gap [Moles/Vol] 11.1 mmol/L Normal [facility] Comment on above: Performed By: #### C BC #### [facility] [address] [place] [address] Dr. Judd Andrade AST [Catalytic activity/Vol] 28 U/L Normal 15-37 [facility] Comment on above: Performed By: #### C BC #### [facility] [address] [place] [address] Dr. Judd Andrade Bilirubin [Mass/Vol] 0.5 mg/dL Normal 0.2-1.0 [facility] Comment on above: Performed By: #### C BC #### [facility] [address] [address] [address] Judd Andrade Calcium [Mass/Vol] 8.9 mg/dL Normal 8.5-10.1 [facility] Comment on above: Performed By: #### C BC #### [facility] [address] [address] [address] Judd Andrade Chloride [Moles/Vol] 101 mmol/L Normal 98-107 [facility] Comment on above: Performed By: #### C BC #### [facility] [address] [place] [address] Dr. Judd Andrade CO2 [Moles/Vol] 29.4 mmol/L Normal 21.0-32.0 [facility] Comment on above: Performed By: #### C BC #### [facility] [address] [place] [address] Dr. Judd Andrade Creatinine [Mass/Vol] 0.73 mg/dL Normal 0.55-1.02 [facility] Comment on above: Performed By: #### C BC #### [facility] [address] [place] [address] Dr. Judd Andrade EGFR-AF COMORAN >60 Normal >=60 [facility] Comment on above: Performed By: #### C BC #### [facility] [address] [place] [address] Dr. Judd Andrade EGFR-NON AF COMORAN >60 Normal >=60 [facility] Comment on above: Performed By: #### C BC #### [facility] [address] [place] [address] Dr. Judd Andrade Globulin (S) [Mass/Vol] 3.8 g/dL Normal [facility] Comment on above: Performed By: #### C BC #### [facility] [address] [place] [address] Dr. Judd Andrade Glucose [Mass/Vol] 139 mg/dL Critically high 74-106 [facility] Comment on above: Performed By: #### C BC #### [facility] [address] [place] [address] Dr. Judd Andrade Potassium [Moles/Vol] 3.5 mmol/L Normal 3.5-5.1 [facility] Comment on above: Performed By: #### C BC #### [facility] [address] [address] [address] Judd Andrade Protein [Mass/Vol] 7.7 g/dL Normal 6.4-8.2 [facility] Comment on above: Performed By: #### C BC #### [facility] [address] [address] [address] Judd Andrade Sodium [Moles/Vol] 138 mmol/L Normal 136-145 [facility] Comment on above: Performed By: #### C BC #### [facility] [address] [place] [address] Dr. Judd Andrade Urea nitrogen [Mass/Vol] 12.0 mg/dL Normal 7.0-18.0 [facility] Comment on above: Performed By: #### C BC #### [facility] [address] [place] [address] Dr. Judd Andrade Urea nitrogen/Creatinine [Mass ratio] 16.4 mg/mg Normal [facility] Comment on above: Performed By: #### C BC #### [facility] [address] [place] [address] Dr. uJdd Andrade XR CHEST 2 Von 12-29-2021 XR [...] ARTEMIO DIXON Date: 2021-12-29 20:49 Normal [facility] TRYPTASEon 12-27-2021 Tryptase 4.5 ug/L Normal 2.2-13.2 [facility] Comment on above: Performed By: #### C BC #### [facility] [address] [place] [address] Dr. Judd Andrade CBC AUTO DIFFon 12-23-2021 BASO # 0.0 103/ul Normal 0.0-0.1 [facility] Comment on above: Performed By: #### H STROPN, CMP #### [facility] [address] [place] [address] Dr. Judd Andrade Basophils/100 WBC (Bld) 0.7 % Normal 0.2-2.0 [facility] Comment on above: Performed By: #### H STROPN, CMP #### [facility] [address] [place] [address] Dr. Judd Andrade EO # 0.0 103/ul Normal 0.0-0.7 [facility] Comment on above: Performed By: #### H STROPN, CMP #### [facility] [address] [place] [address] Dr. Judd Andrade Eosinophils/100 WBC (Bld) 0.0 % Critically low 0.9-7.0 [facility] Comment on above: Performed By: #### H STROPN, CMP #### [facility] [address] [place] [address] Dr. Judd Andrade Erythrocyte distribution width (RBC) [Ratio] 13.2 % Normal 11.0-15.0 [facility] Comment on above: Performed By: #### H STROPN, CMP #### [facility] [address] [place] [address] Dr. Judd Andrade Hematocrit (Bld) [Volume fraction] 42.1 % Normal 36.0-48.0 [facility] Comment on above: Performed By: #### H STROPN, CMP #### [facility] [address] [place] [address] Dr. Jdud Andrade Hemoglobin (Bld) [Mass/Vol] 13.7 g/dL Normal 12.0-16.0 [facility] Comment on above: Performed By: #### H STROPN, CMP #### [facility] [address] [place] [address] Dr. Judd Andrade IG # 0.01 10e3/ul Normal 0.00-0.03 [facility] Comment on above: Performed By: #### H STROPN, CMP #### [facility] [address] [address] [address] Judd Andrade IG % 0.3 % Normal 0.0-0.5 [facility] Comment on above: Performed By: #### H TERAPN, CMP #### [facility] [address] [place] [address] Dr. Judd Andrade LYMPH # 0.7 103/ul Critically low 1.2-3.8 [facility] Comment on above: Performed By: #### H STROPN, CMP #### [facility] [address] [place] [address] Dr. Judd Andrade Lymphocytes/100 WBC (Bld) 24.1 % Normal 20.5-60.0 [facility] Comment on above: Performed By: #### H DEB, CMP #### [facility] [address] [place] [address] Dr. Judd Andrade MANUAL DIFF REQ NO Normal [facility] Comment on above: Performed By: #### H DEB, CMP #### [facility] [address] [place] [address] Dr. Judd Andrade MCH (RBC) [Entitic mass] 28.4 pg Normal 26.7-34.0 [facility] Comment on above: Performed By: #### H DEB, CMP #### [facility] [address] [place] [address] Dr. Judd Andrade MCHC (RBC) [Mass/Vol] 32.5 g/dL Normal 29.9-35.2 [facility] Comment on above: Performed By: #### H STROPN, CMP #### [facility] [address] [place] [address] Dr. Judd Andrade MCV (RBC) [Entitic vol] 87.2 fL Normal 81.0-99.0 [facility] Comment on above: Performed By: #### H TERAPN, CMP #### [facility] [address] [address] [address] Judd Andrade MONO # 0.5 103/ul Normal 0.3-0.8 [facility] Comment on above: Performed By: #### H TERAPN, CMP #### [facility] [address] [address] [address] Judd Andrade Monocytes/100 WBC (Bld) 16.9 % Critically high 1.7-12.0 [facility] Comment on above: Performed By: #### H STROPN, CMP #### [facility] [address] [address] [address] Judd Andrade NEUT # 1.8 103/ul Normal 1.4-6.5 [facility] Comment on above: Performed By: #### H STROPN, CMP #### [facility] [address] [address] [address] Judd Andrade Neutrophils/100 WBC (Bld) 58.0 % Normal 43.0-75.0 [facility] Comment on above: Performed By: #### H STROPN, CMP #### [facility] [address] [place] [address] Dr. uJdd Andrade Platelet mean volume (Bld) [Entitic vol] 9.9 fL Normal 9.5-13.5 [facility] Comment on above: Performed By: #### H STROPN, CMP #### [facility] [address] [address] [address] Judd Andrade PLT 210 103/ul Normal 150-450 [facility] Comment on above: Performed By: #### H STROPN, CMP #### [facility] [address] [place] [address] Dr. Judd Andrade RBC 4.83 106/ul Normal 4.20-5.40 [facility] Comment on above: Performed By: #### H STROPN, CMP #### [facility] [address] [place] [address] Dr. Judd Andrade WBC 3.1 103/ul Critically low 4.0-11.[address] [facility] Comment on above: Performed By: #### H STROPN, CMP #### [facility] [address] [place] [address] Dr. Judd Andrade IRONon 12-23-2021 Iron [Mass/Vol] 35.0 ug/dL Critically low 50.0-170.0 [facility] Comment on above: Performed By: #### C BC #### [facility] [address] [place] [address] Dr. Judd Andrade PROF 14(COMP METB)on 022 Albumin [Mass/Vol] 3.9 g/dL Normal 3.4-5.0 [facility] Comment on above: Performed By: #### C BC #### [facility] [address] [place] [address] Dr. Judd Andrade Albumin/Globulin [Mass ratio] 1.0 {ratio} Normal [facility] Comment on above: Performed By: #### C BC #### [facility] [address] [place] [address] Dr. Judd Andrade ALP [Catalytic activity/Vol] 70 U/L Normal 46-116 [facility] Comment on above: Performed By: #### C BC #### [facility] [address] [place] [address] Dr. Judd Andrade ALT [Catalytic activity/Vol] 43 U/L Normal 14-59 [facility] Comment on above: Performed By: #### C BC #### [facility] [address] [place] [address] Dr. Judd Andrade Anion gap [Moles/Vol] 11.5 mmol/L Normal [facility] Comment on above: Performed By: #### C BC #### [facility] [address] [place] [address] Dr. Judd Andrade AST [Catalytic activity/Vol] 33 U/L Normal 15-37 [facility] Comment on above: Performed By: #### C BC #### [facility] [address] [place] [address] Dr. uJdd Andrade Bilirubin [Mass/Vol] 0.3 mg/dL Normal 0.2-1.0 [facility] Comment on above: Performed By: #### C BC #### [facility] [address] [place] [address] Dr. Judd Andrade Calcium [Mass/Vol] 8.9 mg/dL Normal 8.5-10.1 [facility] Comment on above: Performed By: #### C BC #### [facility] [address] [address] [address] Judd Andrade Chloride [Moles/Vol] 101 mmol/L Normal 98-107 [facility] Comment on above: Performed By: #### C BC #### [facility] [address] [address] [address] Judd Andrade CO2 [Moles/Vol] 31.1 mmol/L Normal 21.0-32.0 [facility] Comment on above: Performed By: #### C BC #### [facility] [address] [address] [address] Judd Andrade Creatinine [Mass/Vol] 0.69 mg/dL Normal 0.55-1.02 [facility] Comment on above: Performed By: #### C BC #### [facility] [address] [place] [address] Dr. Judd Andrade EGFR-AF COMORAN >60 Normal >=60 [facility] Comment on above: Performed By: #### C BC #### [facility] [address] [place] [address] Dr. Judd Andrade EGFR-NON AF COMORAN >60 Normal >=60 [facility] Comment on above: Performed By: #### C BC #### [facility] [address] [place] [address] Dr. Judd Andrade Globulin (S) [Mass/Vol] 3.8 g/dL Normal [facility] Comment on above: Performed By: #### C BC #### [facility] [address] [place] [address] Dr. Judd Andrade Glucose [Mass/Vol] 103 mg/dL Normal 74-106 [facility] Comment on above: Performed By: #### C BC #### [facility] [address] [place] [address] Dr. Judd Andrade Potassium [Moles/Vol] 3.6 mmol/L Normal 3.5-5.1 [facility] Comment on above: Performed By: #### C BC #### [facility] [address] [place], [place] [id number] Dr. Judd Andrade Protein [Mass/Vol] 7.7 g/dL Normal 6.4-8.2 [facility] Comment on above: Performed By: #### C BC #### [facility] [address] [place] [address] Dr. Judd Andrade Sodium [Moles/Vol] 140 mmol/L Normal 136-145 [facility] Comment on above: Performed By: #### C BC #### [facility] [address] [address] [address] Judd Andrade Urea nitrogen [Mass/Vol] 11.0 mg/dL Normal 7.0-18.0 [facility] Comment on above: Performed By: #### C BC #### [facility] [address] [place] [address] Dr. Judd Andrade Urea nitrogen/Creatinine [Mass ratio] 15.9 mg/mg Normal [facility] Comment on above: Performed By: #### C BC #### [facility] [address] [place] [address] Dr. Judd Andrade PROTIMEon 12-23-2021 INR Coag (PPP) [Relative time] 1.04 {INR} Normal [facility] Comment on above: Performed By: #### H DEB, CMP #### [facility] [address] [place] [address] Dr. Judd Andrade INR GUIDELINES SEE BELOW Normal [facility] Comment on above: Result Comment: PRIETO RED INR: 2.0 - 3.0 CONDITIONS NOT LISTED BELOW 2.5 - 3.5 FOR PROSTHETIC HEART VALVE REPLACEMENT 2.5 - 3.5 RECURRENT THROMBOSIS Performed By: #### H DEB, CMP #### [facility] [address] [place] [address] Dr. Judd Andrade PT Coag (PPP) [Time] 11.2 s Normal 9.0-11.6 [facility] Comment on above: Performed By: #### H DBE, CMP #### [facility] [address] [place] [address] Dr. Judd Andrade PTTon 12-23-2021 aPTT Coag (Bld) [Time] 31.5 s Normal 22.3-36.2 [facility] Comment on above: Performed By: #### H STROPN, CMP #### [facility] [address] [place] [address] Dr. Judd ELENA URINE PROFILEon 2 Bilirubin Ql (U) Negative Normal NEGATIVE [facility] Comment on above: Performed By: #### H STROPN, CMP #### [facility] [address] [address] [address] Judd Andrade Clarity (U) CLEAR Normal CLEAR [facility] Comment on above: Performed By: #### H STROPN, CMP #### [facility] [address] [place] [address] Dr. Judd Andrade Color (U) LT. YELLOW Normal YELLOW [facility] Comment on above: Performed By: #### H STROPN, CMP #### [facility] [address] [place] [address] Dr. Judd Andrade ERUAHRomina A micrscopic examination will be performed if indicated. Normal [facility] Comment on above: Performed By: #### H STROPN, CMP #### [facility] [address] [place] [address] Dr. Judd Andrade Glucose Ql (U) Negative Normal NEGATIVE [facility] Comment on above: Performed By: #### H STROPN, CMP #### [facility] [address] [place] [address] Dr. Judd Andrade Hemoglobin Ql (U) TRACE-INTACT Abnormal NEGATIVE [facility] Comment on above: Performed By: #### H STROPN, CMP #### [facility] [address] [place] [address] Dr. Judd Andrade Ketones Ql (U) Negative Normal NEGATIVE [facility] Comment on above: Performed By: #### H STROPN, CMP #### [facility] [address] [place] [address] Dr. Judd Andrade LEUKOCYTES Negative Normal NEGATIVE [facility] Comment on above: Performed By: #### H STROPN, CMP #### [facility] [address] [place] [address] Dr. Judd Andrade Nitrite Ql (U) Negative Normal NEGATIVE [facility] Comment on above: Performed By: #### H DEB, CMP #### [facility] [address] [place] [address] Dr. Judd Andrade pH (U) 6.0 [pH] Normal 5-9 [facility] Comment on above: Performed By: #### H DEB, CMP #### [facility] [address] [place] [address] Dr. Judd Andrade SPEC GRAVITY 1.005 Normal 1.005-<=1.025 [facility] Comment on above: Performed By: #### H DEB, CMP #### [facility] [address] [place] [address] Dr. Judd Andrade UA PROTEIN Negative Normal NEGATIVE/ TRACE [facility] Comment on above: Performed By: #### H DEB, CMP #### [facility] [address] [place] [address] Dr. Judd Andrade UR MICRO IND INDICATED Normal [facility] Comment on above: Performed By: #### H DEB, CMP #### [facility] [address] [place] [address] Dr. Judd Andrade Urobilinogen Qn (U) 0.2 {Carol'U}/dL Normal 0.2 - 1. 0 [facility] Comment on above: Performed By: #### H DEB, CMP #### [facility] [address] [place] [address] Dr. Judd Andrade URINE MICROSCOPIC ONLYon BACTERIA NONE SEEN Normal NONE SEEN [facility] Comment on above: Performed By: #### H DEB, CMP #### [facility] [address] [place] [address] Dr. Judd Andrade Bacteria identified Cx Nom (U) NOT INDICATED Normal [facility] Comment on above: Performed By: #### H DEB, CMP #### [facility] [address] [place] [address] Dr. Judd Andrade CAST NONE SEEN Normal NONE SEEN [facility] Comment on above: Performed By: #### H STROPN, CMP #### [facility] [address] [address] [address] Judd Andrade Crystals LM Nom (Urine sed) NONE SEEN Normal NONE SEEN [facility] Comment on above: Performed By: #### H STROPN, CMP #### [facility] [address] [address] [address] Judd Andrade Epithelial cells LM Ql (Urine sed) FEW Abnormal NONE SEEN /RARE [facility] Comment on above: Performed By: #### H STROPN, CMP #### [facility] [address] [address] [address] Judd Andrade MUCOUS NONE SEEN Normal NONE SEEN [facility] Comment on above: Performed By: #### H STROPN, CMP #### [facility] [address] [address] [address] Judd Andrade RBC 0-2 Normal 0-2 [facility] Comment on above: Performed By: #### H STROPN, CMP #### [facility] [address] [address] [address] Judd Andrade WBC NONE SEEN Normal NONE SEEN [facility] Comment on above: Performed By: #### H STROPN, CMP #### [facility] [address] [address] [address] Judd Andrade Encounters Encounter Date Encounter [...] response examination DR JOHN WHITE . [facility] Start: 06-26-2022 End: 06-27-[address] [...] Start: 12-04-[address] KATIE SOW . [facility] ty:H1 Payers Date Payer Category Payer Unknown [id number] 2.16.84 [id number] 1965 Unknown [id number] 2.16.84 0.1.660981.3.579.2.593 1965 Unknown [id number] 2.16.84 0.1.627617.3.579.2.593 1965 Unknown [id number] 2.16.84 0.1.672850.3.579.2.593 1965 Unknown [id number] 2.16.84 0.1.129615.3.579.2.593 1965 Unknown [id number] 2.16.84 0.1.744403.3.579.2.593 1965 Unknown [id number] 2.16.84 0.1.535272.3.579.2.593 1965 Unknown [id number] 2.16.84 0.1.683539.3.579.2.593 1965 Unknown [id number] 2.16.84 0.1.971571.3.579.2.593 1965 Unknown [id number] 2.16.84 0.1.127792.3.579.2.593 1965 Unknown [id number] 2.16.84 0.1.427097.3.579.2.593 1965 Unknown [id number] 2.16.84 0.1.290584.3.579.2.593 1965 Unknown [id number] 2.16.84 0.1.624265.3.579.2.593 1965 Unknown [id number] 2.16.84 0.1.273629.3.579.2.593 1965 Unknown [id number] 2.16.84 0.1.748194.3.579.2.593 1965 Unknown [id number] 2.16.84 0.1.896390.3.579.2.593 1965 Unknown [id number] 2.16.84 0.1.805382.3.579.2.593 1965 Unknown [id number] 2.16.84 0.1.297842.3.579.2.593 1965 Unknown [id number] 2.16.84 0.1.234362.3.579.2.593 1965 Unknown [id number] 2.16.84 0.1.117084.3.579.2.593 1965 Unknown [id number] 2.16.84 0.1.728255.3.579.2.593 1965 Unknown [id number] 2.16.84 0.1.191567.3.579.2.593 1965 Unknown [id number] 2.16.84 0.1.336900.3.579.2.593 1965 Unknown [id number] 2.16.84 0.1.756396.3.579.2.593 1965 Unknown [id number] 2.16.84 0.1.455266.3.579.2.1259 1965 Unknown [id number] 2.16.84 0.1.958142.3.579.2.1259 1965 Unknown [id number] 2.16.840 .1.523125.3.579.2.1259 1959 Self-pay [id number] 1959 Unknown [id number] 1959 Unknown [id number] Summary Purpose Family History No Family History Records FoundNo Family History Records Found Advance Directives No Advanced Directives Records FoundNo Advanced Directives Records Found Additional Source Comments INFORMATION SOURCE (unrecogn ized section and content) DATE CREATED AUTHOR 10/02/2022 [facility] DATE CREATED AUTHOR 'S BUNNYIZ ATJOSE 07/01/2023 [facility] [employer] EPIC FOR RECORDS PERTAINING TO PATIENTS [...] BE BASED ON THE PRIMARY CLINICAL RECORDS. [facility] [employer] [facility]. provides no warranty or guarantee of the accuracy or completeness of information in this document.
[2023-09-14 12:02] LABS: Basophils Absolute Auto 0.1 10^3/uL (0.0-0.1); Eosinophils Absolute Auto 0.1 10^3/uL (0.0-0.7); Eosinophils Percent Auto 2.1 % (0.9-7.0); Hematocrit 39.8 % (36.0-48.0); Hemoglobin 13.1 g/dL (12.0-16.0); Immature Granulocytes Abs Auto 0.04 10^3/uL (0.00-0.03); Immature Granulocytes Pct Auto 0.8 % (0.0-0.5); Lymphocytes Absolute Auto 1.7 10^3/uL (1.2-3.8); Mean Corpuscular HGB Conc 32.9 g/dL (29.9-35.2); Mean Corpuscular Volume 88.2 fL (81.0-99.0); Mean Platelet Volume 10.3 fL (9.5-13.5); Monocytes Absolute Auto 0.5 10^3/uL (0.3-0.8); Monocytes Percent Auto 9.5 % (1.7-12.0); Neutrophils Absolute Auto 2.5 10^3/uL (1.4-6.5); Neutrophils Percent Auto 50.6 % (43.0-75.0); Platelet Count 260 10^3/uL (150-450); Red Blood Count 4.51 10^6/uL (4.20-5.40); Red Cell Distribution Width 13.2 % (11.0-15.0); White Blood Count 4.8 10^3/uL (4.0-11.0)
[2023-09-14 12:07] LABS: Erythrocyte Sedimentation Rate 25 mm/hr (<=30)
[2023-09-14 12:44] LABS: C Reactive Protein <0.50 mg/dL (<=0.50); Thyroid Stimulating Hormone 1.021 uIU/mL (0.358-3.740); Uric Acid 3.5 mg/dL (2.6-6.0)
[2023-09-14 12:57] LABS: Free T4 1.01 ng/dL (0.76-1.46)
[2023-09-15 06:09] LABS: Antistreptolysin O Ab 126.2 IU/mL (0.0-200.0)
[2023-09-16 11:10] LABS: Antinuclear Antibodies, IFA Negative (.)
== END 2023-09-14 11:03 | disposition home or self-care (01) ==
LOC: LAB 11:04
PROVIDERS: PCP Family Medicine; Visit Provider Family Medicine
DX: I10 Essential (primary) hypertension (principal)
CPT/HCPCS: 36415; 84439; 84443; 84550; 85025; 85652; 86038; 86060; 86140; 86431

== ENCOUNTER 2023-10-26 09:24 | Outpatient (OUT) | payer OTHER, SELFPAY ==
--- OUTSIDE RECORDS SUMMARY | 2023-10-26 09:30 | XMS_ITS ---
Patient Summarization (C-CDA 2.1 CCD) Created on: October 26, 2023 YULIA CASTANO~EYAD BENDER : 1965 Sex: Female Author Organization Sample organization Care Team Providers Care Emergency Telecommunications Dispatcher Name Role Phone ABELINOY ., DR LOPEZ Attending Unavailable HOY ., DR LPOEZ Consulting Unavailable HOY ., DR LOPEZ Primary [...] Unavailable ZIEBER, DR GABO Henley Consulting Unavailable JUANJSOE ., DR WILSON Admitting Unavailable JUANJOSE ., [...] Unavailable JUANJOSE ., DR WILSON Attending Unavailable SCHENECTADY, DR ELLYN Dougherty Consulting Unavailable HOY ., [...] (1 source) Azithromycin Drug Allergy 12-20-2021 [facility] Rep[facility] (2 sources) Imipramine Drug Allergy 10-05-2012 [facility] (2 sources) Sulfonamides (Antibiotic) Drug allergy (disorder) 10-05-2012 [facility] Rep[facility] (2 sources) E.E.S. Drug allergy (disorder) 10-05-2012 [facility] Encounters Encounter Date Encounter Type Care Provider [...] response examination DR JOHN WHITE . [facility] Start: 06-26-2022 End: 06-27-[address] JOHN [...] ty:H1 Payers Date Payer Category Payer Unknown [id number] .16.84 [id number] 1965 Unknown [id number] 2..84 0.1.322890.3.579.2.593 1965 Unknown [id number] 2.16.84 0.1.848250.3.579.2.593 1965 Unknown [id number] 2.16.84 0.1.173347.3.579.2.593 1965 Unknown [id number] 2.16.84 0.1.310441.3.579.2.593 1965 Unknown [id number] 2.16.84 0.1.092570.3.579.2.593 1965 Unknown [id number] 2.16.84 0.1.340017.3.579.2.593 1965 Unknown [id number] 2.16.84 0.1.031696.3.579.2.593 1965 Unknown [id number] 2.16.84 0.1.885608.3.579.2.593 1965 Unknown [id number] 2.16.84 0.1.846647.3.579.2.593 1965 Unknown [id number] 2.16.84 0.1.329433.3.579.2.593 1965 Unknown [id number] 2.16.84 0.1.885864.3.579.2.593 1965 Unknown [id number] 2.16.84 0.1.589669.3.579.2.593 1965 Unknown [id number] 2.16.84 0.1.848467.3.579.2.593 1965 Unknown [id number] 2.16.84 0.1.305322.3.579.2.593 1965 Unknown [id number] 2.16.84 0.1.515670.3.579.2.593 1965 Unknown [id number] 2.16.84 0.1.642775.3.579.2.593 1965 Unknown [id number] 2.16.84 0.1.531843.3.579.2.593 1965 Unknown [id number] 2.16.84 0.1.820494.3.579.2.593 1965 Unknown [id number] 2.16.84 0.1.999723.3.579.2.593 1965 Unknown [id number] 2.16.84 0.1.284696.3.579.2.593 1965 Unknown [id number] 2.16.84 0.1.245084.3.579.2.593 1965 Unknown [id number] 2.16.84 0.1.260121.3.579.2.593 1965 Unknown [id number] 2.16.84 0.1.444041.3.579.2.593 1965 Unknown [id number] 2.16.84 0.1.632005.3.579.2.1259 1965 Unknown [id number] 2.16.84 0.1.856954.3.579.2.1259 1965 Unknown [id number] 2.16.840 .1.602340.3.579.2.1259 1959 Self-pay [id number] 1959 Unknown [id number] 1959 Unknown [id number] Problems Active Problems Problem Classification Problem Date [...] 06-05-2022 Episodic Other aftercare (4 sources) Other fpc (current) drug therapy; Translations: [[employer] CURRENT DRUG THERAPY] Onset: 12-23-2021 Episodic Other [...] : DR KATIE SOW . Admission #: [id number] Family : Order #: [id number] CLICK HERE TO VIEW EXAM RADIOLOGY REPORT [...] breast cancer at age 40. LOCATION: [facility] BREAST COMPOSITION: Almost entirely fatty. FINDINGS: DIAGNOSTIC [...] MD on 09/22/2022 at 15:03 Normal [facility] US BREAST RIGHT LIMITEDon US BREAST RIGHT LIMITED Patient: YULIA CASTANO Exam Date: 09/22/2022 : 1965 Gender:F Ordering : DR KATIE SOW . Admission #: [id number] Family : Order #: [id number] CLICK HERE TO VIEW EXAM RADIOLOGY REPORT [...] breast cancer at age 40. LOCATION: [facility] BREAST COMPOSITION: Almost entirely fatty. FINDINGS: DIAGNOSTIC [...] Castaneda MD on 09/22/2022 at 15:03 Normal [facility] US ST HEAD_NECKon 08-31-[address] [...] by: GABO STRONG Date: 2022-08-31 08:09 Normal [facility] US PELVIS AND TRANSVAGon US PELVIS [...] by: GABO STRONG Date: 2022-07-29 06:32 Normal [facility] INSULINon 07-04-2022 Insulin 6.2 uIU/mL Normal 2.6-24.9 [facility] Comment on above: Performed By: #### H STROPN, CMP #### [facility] [address] [place] [address] Dr. Judd Andrade CBC AUTO DIFFon 07-03-2022 BASO # 0.0 103/ul Normal 0.0-0.1 [facility] Comment on above: Performed By: #### C BC #### [facility] [address] [place] [address] Dr. Judd Andrade Basophils/100 WBC (Bld) 1.1 % Normal 0.2-2.0 [facility] Comment on above: Performed By: #### C BC #### [facility] [address] [place] [address] Dr. Judd Andrade EO # 0.1 103/ul Normal 0.0-0.7 [facility] Comment on above: Performed By: #### C BC #### [facility] [address] [place] [address] Dr. Judd Andrade Eosinophils/100 WBC (Bld) 3.6 % Normal 0.9-7.0 [facility] Comment on above: Performed By: #### C BC #### [facility] [address] [place] [address] Dr. Judd Andrade Erythrocyte distribution width (RBC) [Ratio] 13.6 % Normal 11.0-15.0 [facility] Comment on above: Performed By: #### C BC #### [facility] [address] [place] [address] Dr. Judd Andrade Hematocrit (Bld) [Volume fraction] 41.8 % Normal 36.0-48.0 [facility] Comment on above: Performed By: #### C BC #### [facility] [address] [place] [address] Dr. Judd Andrade Hemoglobin (Bld) [Mass/Vol] 13.5 g/dL Normal 12.0-16.0 [facility] Comment on above: Performed By: #### C BC #### [facility] [address] [place] [address] Dr. Judd Andrade IG # 0.01 10e3/ul Normal 0.00-0.03 [facility] Comment on above: Performed By: #### C BC #### [facility] [address] [place] [address] Dr. Judd Andrade IG % 0.3 % Normal 0.0-0.5 [facility] Comment on above: Performed By: #### C BC #### [facility] [address] [place] [address] Dr. Judd Andrade LYMPH # 1.4 103/ul Normal 1.2-3.8 [facility] Comment on above: Performed By: #### C BC #### [facility] [address] [place] [address] Dr. Judd Andrade Lymphocytes/100 WBC (Bld) 38.4 % Normal 20.5-60.0 [facility] Comment on above: Performed By: #### C BC #### [facility] [address] [place] [address] Dr. Judd Andrade MANUAL DIFF REQ NO Normal [facility] Comment on above: Performed By: #### C BC #### [facility] [address] [place] [address] Dr. Judd Andrade MCH (RBC) [Entitic mass] 28.2 pg Normal 26.7-34.0 [facility] Comment on above: Performed By: #### C BC #### [facility] [address] [place] [address] Dr. Judd Andrade MCHC (RBC) [Mass/Vol] 32.3 g/dL Normal 29.9-35.2 [facility] Comment on above: Performed By: #### C BC #### [facility] [address] [place] [address] Dr. Judd Andrade MCV (RBC) [Entitic vol] 87.4 fL Normal 81.0-99.0 [facility] Comment on above: Performed By: #### C BC #### [facility] [address] [place] [address] Dr. Judd Andrade MONO # 0.4 103/ul Normal 0.3-0.8 [facility] Comment on above: Performed By: #### C BC #### [facility] [address] [place] [address] Dr. Judd Andrade Monocytes/100 WBC (Bld) 10.4 % Normal 1.7-12.0 [facility] Comment on above: Performed By: #### C BC #### [facility] [address] [place] [address] Dr. Judd Andrade NEUT # 1.7 103/ul Normal 1.4-6.5 [facility] Comment on above: Performed By: #### C BC #### [facility] [address] [place] [address] Dr. Judd Andrade Neutrophils/100 WBC (Bld) 46.2 % Normal 43.0-75.0 [facility] Comment on above: Performed By: #### C BC #### [facility] [address] [place] [address] Dr. Judd Andrade Platelet mean volume (Bld) [Entitic vol] 9.6 fL Normal 9.5-13.5 [facility] Comment on above: Performed By: #### C BC #### [facility] [address] [place] [address] Dr. Judd Andrade PLT 246 103/ul Normal 150-450 [facility] Comment on above: Performed By: #### C BC #### [facility] [address] [place] [address] Dr. Judd Andrade RBC 4.78 106/ul Normal 4.20-5.40 [facility] Comment on above: Performed By: #### C BC #### [facility] [address] [place] [address] Dr. Judd Andrade WBC 3.7 103/ul Critically low 4.0-11.0 [facility] Comment on above: Performed By: #### C BC #### [facility] [address] [place] [address] Dr. Judd Andrade FREE THYROXINE INDEX T7on FTI 3.20 Normal 1.30-4.50 [facility] Comment on above: Performed By: #### T 7, LIPID, TSH, CMP #### [facility] [address] [address] [address] Judd Andrade T3U 36.0 % Normal 30.0-39.0 [facility] Comment on above: Performed By: #### T 7, LIPID, TSH, CMP #### [facility] [address] [address] [address] Judd Andrade T4 [Mass/Vol] 8.90 ug/dL Normal 4.80-13.90 [facility] Comment on above: Performed By: #### T 7, LIPID, TSH, CMP #### [facility] [address] [address] [address] Judd Andrade GLYCOHEMOGLOBIN A1Con 2022 ADA RECOMMENDATION SEE BELOW Normal [place] Comment on above: Result Comment: ADA RECOMMENDED LIMIT 4.0 - 6.0 ADA THERAPEUTIC TARGET < 7.0 ACTION SUGGESTED > 7.0 Performed By: #### C BC #### [facility] [address] [address] [address] Judd Andrade Glucose [Mass/Vol] 120 mg/dL Normal [facility] Comment on above: Performed By: #### C BC #### [facility] [address] [address] [address] Judd Andrade HbA1c (Bld) [Mass fraction] 5.8 % Normal 4.5-6.2 [facility] Comment on above: Performed By: #### C BC #### [facility] [address] [address] [address] Judd Andrade IRONon 07-03-2022 Iron [Mass/Vol] 67.0 ug/dL Normal 50.0-170.0 [facility] Comment on above: Performed By: #### V ITAD, IRON #### [facility] [address] [address] [address] Judd Andrade LIPID PROFILEon 07-03-2022 CHOL-HDL RATIO NORM SEE BELOW Normal [facility] Comment on above: Result Comment: 3.3 - 4.4 LOW RISK 4.4 - 7.1 AVERAGE RISK 7.1 - 11.0 MODERATE RISK >11.0 HIGH RISK Performed By: #### T 7, LIPID, TSH, CMP #### [facility] [address] [place] [address] Dr. Judd Andrade Cholesterol [Mass/Vol] 216 mg/dL Critically high <=200 [facility] Comment on above: Performed By: #### T 7, LIPID, TSH, CMP #### [facility] [address] [place] [address] Dr. Judd Andrade Cholesterol in HDL [Mass/Vol] 87 mg/dL Critically high 40-60 [facility] Comment on above: Performed By: #### T 7, LIPID, TSH, CMP #### [facility] [address] [place] [address] Dr. Judd Andrade Cholesterol in LDL [Mass/Vol] 124.2 mg/dL Normal [facility] Comment on above: Performed By: #### T 7, LIPID, TSH, CMP #### [facility] [address] [place] [address] Dr. Judd Andrade Cholesterol.total/Ch olesterol in HDL [Mass ratio] 2.5 {ratio} Normal [facility] Comment on above: Performed By: #### T 7, LIPID, TSH, CMP #### [facility] [address] [place] [address] Dr. Judd Andrade HDL NORMAL > or = 60 mg/dl - LO W CARDIOVASCULAR RISK <40 mg/dl - HIGH CARDIOVASCULAR RISK Normal [facility] Comment on above: Performed By: #### T 7, LIPID, TSH, CMP #### [facility] [address] [place] [address] Dr. Judd Andrade LDL CALC NORMAL SEE BELOW Normal [facility] Comment on above: Result Comment: <100 mg/dl OPTIMAL 100 - 129 mg/dl NEAR OR ABOVE OPTIMAL 130 - 159 mg/dl BORDERLINE HIGH 160 - 189 mg/dl HIGH >190 mg/dl VERY HIGH Performed By: #### T 7, LIPID, TSH, CMP #### [facility] [address] [place] [address] Dr. Judd Andrade Triglyceride [Mass/Vol] 24 mg/dL Normal <=150 [facility] Comment on above: Performed By: #### T 7, LIPID, TSH, CMP #### [facility] [address] [address] [address] Judd Andrade VLDL CALC 4.8 mg/dL Normal [facility] Comment on above: Performed By: #### T 7, LIPID, TSH, CMP #### [facility] [address] [address] [address] Judd Andrade PROF 14(COMP METB)on 023 Albumin [Mass/Vol] 4.0 g/dL Normal 3.4-5.0 [facility] Comment on above: Performed By: #### T 7, LIPID, TSH, CMP #### [facility] [address] [place] [address] Dr. Judd Andrade Albumin/Globulin [Mass ratio] 1.1 {ratio} Normal [facility] Comment on above: Performed By: #### T 7, LIPID, TSH, CMP #### [facility] [address] [place] [address] Dr. Judd Andrade ALP [Catalytic activity/Vol] 78 U/L Normal 46-116 [facility] Comment on above: Performed By: #### T 7, LIPID, TSH, CMP #### [facility] [address] [place] [address] Dr. Judd Andrade ALT [Catalytic activity/Vol] 29 U/L Normal 14-59 [facility] Comment on above: Performed By: #### T 7, LIPID, TSH, CMP #### [facility] [address] [address] [address] Judd Andrade Anion gap [Moles/Vol] 5.6 mmol/L Normal [facility] Comment on above: Performed By: #### T 7, LIPID, TSH, CMP #### [facility] [address] [place] [address] Dr. Judd Andrade AST [Catalytic activity/Vol] 23 U/L Normal 15-37 [facility] Comment on above: Performed By: #### T 7, LIPID, TSH, CMP #### [facility] [address] [address] [address] Judd Andrade Bilirubin [Mass/Vol] 0.5 mg/dL Normal 0.2-1.0 [facility] Comment on above: Performed By: #### T 7, LIPID, TSH, CMP #### [facility] [address] [address] [address] Judd Andrade Calcium [Mass/Vol] 8.9 mg/dL Normal 8.5-10.1 [place] Comment on above: Performed By: #### T 7, LIPID, TSH, CMP #### [facility] [address] [address] [address] Judd Andrade Chloride [Moles/Vol] 105 mmol/L Normal 98-107 [facility] Comment on above: Performed By: #### T 7, LIPID, TSH, CMP #### [facility] [address] [place] [address] Dr. Judd Andrade CO2 [Moles/Vol] 32.0 mmol/L Normal 21.0-32.[address] [facility] Comment on above: Performed By: #### T 7, LIPID, TSH, CMP #### [facility] [address] [place] [address] Dr. Judd Andrade Creatinine [Mass/Vol] 0.52 mg/dL Critically low 0.55-1.02 [facility] Comment on above: Performed By: #### T 7, LIPID, TSH, CMP #### [facility] [address] [place] [address] Dr. Judd Andrade EGFR-AF DUTCH >60 Normal >=60 [facility] Comment on above: Performed By: #### T 7, LIPID, TSH, CMP #### [facility] [address] [place] [address] Dr. Judd Andrade EGFR-NON AF DUTCH >60 Normal >=60 [facility] Comment on above: Performed By: #### T 7, LIPID, TSH, CMP #### [facility] [address] [address] [address] Judd Andrade Globulin (S) [Mass/Vol] 3.6 g/dL Normal [facility] Comment on above: Performed By: #### T 7, LIPID, TSH, CMP #### [facility] [address] [place] [address] Dr. Judd Andrade Glucose [Mass/Vol] 89 mg/dL Normal 74-106 [place] Comment on above: Performed By: #### T 7, LIPID, TSH, CMP #### [facility] [address] [place] [address] Dr. Judd Andrade Potassium [Moles/Vol] 4.2 mmol/L Normal 3.5-5.1 [facility] Comment on above: Performed By: #### T 7, LIPID, TSH, CMP #### [facility] [address] [place] [address] Dr. Judd Andrade Protein [Mass/Vol] 7.6 g/dL Normal 6.4-8.2 [facility] Comment on above: Performed By: #### T 7, LIPID, TSH, CMP #### [facility] [address] [place] [address] Dr. Judd Andrade Sodium [Moles/Vol] 139 mmol/L Normal 136-145 [facility] Comment on above: Performed By: #### T 7, LIPID, TSH, CMP #### [facility] [address] [place] [address] Dr. Judd Andrade Urea nitrogen [Mass/Vol] 11.0 mg/dL Normal 7.0-18.0 [facility] Comment on above: Performed By: #### T 7, LIPID, TSH, CMP #### [facility] [address] [place] [address] Dr. Judd Andrade Urea nitrogen/Creatinine [Mass ratio] 21.2 mg/mg Normal [facility] Comment on above: Performed By: #### T 7, LIPID, TSH, CMP #### [facility] [address] [place] [address] Dr. Judd Andrade TSHon 07-03-2022 TSH 1.037 uIU/mL Normal 0.358-3.740 [facility] Comment on above: Performed By: #### T 7, LIPID, TSH, CMP #### [facility] [address] [place] [address] Dr. Judd Andrade VITAMIN D 25 OHon 07-03-2022 VIT D 25-OH 32.8 ng/mL Normal [facility] Comment on above: Performed By: #### V CARMELO, IRON #### [facility] [address] [place] [address] Dr. Judd Andrade VIT D RANGES SEE BELOW Normal [facility] Comment on above: Result Comment: <20 ng/mL Vit D deficient 20 - <30 ng/mL Vit D insufficient 30 - 100 ng/mL Vit D sufficient >100 ng/mL Potential Toxicity Performed By: #### V CARMELO IRON #### [facility] [address] [place] [address] Dr. Judd Andrade BORDETELLA PERTUSSIS AB IGGo n 06-30-2022 B pertussis IgG Ab 3.88 index Invalid Interpretation Code 0.00-0.94 [facility] Comment on above: Result Comment: Clie nt Requested Flag Negative <0.95 Equivocal 0.95 - 1.04 Positive >1.04 Performed By: #### C BC #### [facility] [address] [place] [address] Dr. Judd Andrade BORDETELLA PERTUSSIS AB IGMo n 06-30-2022 B pertussis IgM Ab <1.0 Normal 0.0-0.9 [place] Comment on above: Result Comment: Nega tive <1.0 Borderline 1.0 - 1.1 Positive >1.1 Performed By: #### H STROPN, CMP #### [facility] [address] [place] [address] Dr. Judd Andrade [id number] 2022 Oqvtw-[id number], Serum 158 mg/dL Normal 101-187 [facility] Comment on above: Performed By: #### C BC #### [facility] [address] [place] [address] Dr. Judd Andrade CBC AUTO DIFFon 06-03-2022 BASO # 0.0 103/ul Normal 0.0-0.1 [facility] Comment on above: Performed By: #### H STROPN, CMP #### [facility] [address] [place] [address] Dr. Judd Andrade Basophils/100 WBC (Bld) 0.6 % Normal 0.2-2.0 [facility] Comment on above: Performed By: #### H STROPN, CMP #### [facility] [address] [place] [address] Dr. Judd Andrade EO # 0.0 103/ul Normal 0.0-0.7 [facility] Comment on above: Performed By: #### H STROPN, CMP #### [facility] [address] [place] [address] Dr. Judd Andrade Eosinophils/100 WBC (Bld) 0.6 % Critically low 0.9-7.0 [facility] Comment on above: Performed By: #### H STROPN, CMP #### [facility] [address] [place] [address] Dr. Judd Andrade Erythrocyte distribution width (RBC) [Ratio] 13.5 % Normal 11.0-15.0 [facility] Comment on above: Performed By: #### H STROPN, CMP #### [facility] [address] [place] [address] Dr. Judd Andrade Hematocrit (Bld) [Volume fraction] 42.4 % Normal 36.0-48.0 [facility] Comment on above: Performed By: #### H STROPN, CMP #### [facility] [address] [place] [address] Dr. Judd Andrade Hemoglobin (Bld) [Mass/Vol] 13.4 g/dL Normal 12.0-16.0 [facility] Comment on above: Performed By: #### H STROPN, CMP #### [facility] [address] [place] [address] Dr. Judd Andrade IG # 0.01 10e3/ul Normal 0.00-0.03 [facility] Comment on above: Performed By: #### H STROPN, CMP #### [facility] [address] [place] [address] Dr. Judd Andrade IG % 0.2 % Normal 0.0-0.5 [facility] Comment on above: Performed By: #### H DEB, CMP #### [facility] [address] [address] [address] Judd Andrade LYMPH # 1.1 103/ul Critically low 1.2-3.8 [facility] Comment on above: Performed By: #### H TERAPN, CMP #### [facility] [address] [address] [address] Judd Andrade Lymphocytes/100 WBC (Bld) 23.5 % Normal 20.5-60.0 [facility] Comment on above: Performed By: #### H DEB, CMP #### [facility] [address] [place] [address] Dr. Judd Andrade MANUAL DIFF REQ NO Normal [facility] Comment on above: Performed By: #### H DEB, CMP #### [facility] [address] [place] [address] Dr. Judd Andrade MCH (RBC) [Entitic mass] 28.9 pg Normal 26.7-34.0 [facility] Comment on above: Performed By: #### H DEB, CMP #### [facility] [address] [place] [address] Dr. Judd Andrade MCHC (RBC) [Mass/Vol] 31.6 g/dL Normal 29.9-35.2 [facility] Comment on above: Performed By: #### H TERAPN, CMP #### [facility] [address] [place] [address] Dr. Judd Andrade MCV (RBC) [Entitic vol] 91.6 fL Normal 81.0-99.0 [facility] Comment on above: Performed By: #### H STROPN, CMP #### [facility] [address] [place] [address] Dr. Judd Andrade MONO # 0.8 103/ul Normal 0.3-0.8 [facility] Comment on above: Performed By: #### H TERAPN, CMP #### [facility] [address] [address] [address] Judd Andrade Monocytes/100 WBC (Bld) 16.5 % Critically high 1.7-12.0 [facility] Comment on above: Performed By: #### H DEB, CMP #### [facility] [address] [place] [address] Dr. Judd Andrade NEUT # 2.7 103/ul Normal 1.4-6.5 [facility] Comment on above: Performed By: #### H DEB, CMP #### [facility] [address] [place] [address] Dr. Judd Andrade Neutrophils/100 WBC (Bld) 58.6 % Normal 43.0-75.0 [facility] Comment on above: Performed By: #### H DEB, CMP #### [facility] [address] [place] [address] Dr. Judd Andrade Platelet mean volume (Bld) [Entitic vol] 9.8 fL Normal 9.5-13.5 [facility] Comment on above: Performed By: #### H DEB, CMP #### [facility] [address] [place] [address] Dr. Judd Andrade PLT 252 103/ul Normal 150-450 [facility] Comment on above: Performed By: #### H DEB, CMP #### [facility] [address] [place] [address] Dr. Judd Andrade RBC 4.63 106/ul Normal 4.20-5.40 [facility] Comment on above: Performed By: #### H DEB, CMP #### [facility] [address] [place] [address] Dr. Judd Andrade WBC 4.7 103/ul Normal 4.0-11.0 [facility] Comment on above: Performed By: #### H DEB, CMP #### [facility] [address] [place] [address] Dr. Judd Andrade PROF 14(COMP METB)on 023 Albumin [Mass/Vol] 4.0 g/dL Normal 3.4-5.0 [place] Comment on above: Performed By: #### H STROPN, CMP #### [facility] [address] [address] [address] Judd Andrade Albumin/Globulin [Mass ratio] 1.0 {ratio} Normal [facility] Comment on above: Performed By: #### H STROPN, CMP #### [facility] [address] [address] [address] Judd Andrade ALP [Catalytic activity/Vol] 77 U/L Normal 46-116 [facility] Comment on above: Performed By: #### H STROPN, CMP #### [facility] [address] [address] [address] Judd Andrade ALT [Catalytic activity/Vol] 33 U/L Normal 14-59 [facility] Comment on above: Performed By: #### H STROPN, CMP #### [facility] [address] [address] [address] Judd Andrade Anion gap [Moles/Vol] 8.0 mmol/L Normal [facility] Comment on above: Performed By: #### H STROPN, CMP #### [facility] [address] [address] [address] Judd Andrade AST [Catalytic activity/Vol] 28 U/L Normal 15-37 [facility] Comment on above: Performed By: #### H STROPN, CMP #### [facility] [address] [address] [address] Judd Andrade Bilirubin [Mass/Vol] 0.6 mg/dL Normal 0.2-1.0 [facility] Comment on above: Performed By: #### H STROPN, CMP #### [facility] [address] [address] [address] Judd Andrade Calcium [Mass/Vol] 9.3 mg/dL Normal 8.5-10.1 [facility] Comment on above: Performed By: #### H STROPN, CMP #### [facility] [address] [address] [address] Judd Andrade Chloride [Moles/Vol] 103 mmol/L Normal 98-107 [facility] Comment on above: Performed By: #### H STROPN, CMP #### [facility] [address] [address] [address] Judd Andrade CO2 [Moles/Vol] 33.6 mmol/L Critically high 21.0-32.0 [facility] Comment on above: Performed By: #### H STROPN, CMP #### [facility] [address] [address] [address] Judd Andrade Creatinine [Mass/Vol] 0.59 mg/dL Normal 0.55-1.02 [facility] Comment on above: Performed By: #### H STROPN, CMP #### [facility] [address] [address] [address] Judd Andrade EGFR-AF DUTCH >60 Normal >=[address] [facility] Comment on above: Performed By: #### H STROPN, CMP #### [facility] [address] [address] [address] Judd Andrade EGFR-NON AF DUTCH >60 Normal >=60 [facility] Comment on above: Performed By: #### H STROPN, CMP #### [facility] [address] [address] [address] Judd Andrade Globulin (S) [Mass/Vol] 4.0 g/dL Normal [facility] Comment on above: Performed By: #### H STROPN, CMP #### [facility] [address] [address] [address] Judd Andrade Glucose [Mass/Vol] 130 mg/dL Critically high 74-106 [facility] Comment on above: Performed By: #### H STROPN, CMP #### [facility] [address] [address] [address] Judd Andrade Potassium [Moles/Vol] 3.6 mmol/L Normal 3.5-5.1 [facility] Comment on above: Performed By: #### H STROPN, CMP #### [facility] [address] [address] [address] Judd Andrade Protein [Mass/Vol] 8.0 g/dL Normal 6.4-8.2 [place] Comment on above: Performed By: #### H STROPN, CMP #### [facility] [address] [address] [address] Judd Andrade Sodium [Moles/Vol] 141 mmol/L Normal 136-145 [facility] Comment on above: Performed By: #### H STROPN, CMP #### [facility] [address] [address] [address] Judd Andrade Urea nitrogen [Mass/Vol] 8.0 mg/dL Normal 7.0-18.0 [facility] Comment on above: Performed By: #### H STROPN, CMP #### [facility] [address] [address] [address] Judd Andrade Urea nitrogen/Creatinine [Mass ratio] 13.6 mg/mg Normal [facility] Comment on above: Performed By: #### H STROPN, CMP #### [facility] [address] [address] [address] Judd Andrade TROPONIN, HIGH SENSITIVITYon 06-03-2022 HSTROP <4.0 Normal 4.0-51.3 [facility] Comment on above: Result Comment: CUT- OFF POINTS HAVE BEEN ESTABLISHED BASED ON THE FOURTH UNIVERSAL DEFINITIONS OF MYOCARDIAL INFARCTION. THE UPPER REFERENCE LIMIT (URL) OF TROPONIN, DEFINED THE 99TH PERCENTILE OF cTnI DISTRIBUTION IN A REFERENCE POPULATION, HAS BEEN CONFIRMED THE DECISION THRESHOLD FOR [place] DIAGNOSIS. Performed By: #### H TERAPN, CMP #### [facility] [address] [address] [address] Judd Andrade XR CHEST 2 Von [...] by: LINDA RHODES Date: 2022-06-03 12:15 Normal [facility] Covid-19 PCR (CVDTBH)on SARS-CoV-2 (COVID-19) RNA JOLLY+probe Ql (Unsp spec) Not detected Normal NOT DETECTED [facility] Comment on above: Result Comment: This test is not yet approved or cleared by the [place] FDA. When there are no FDA-approved or cleared tests available, and other criteria are met, FDA can make tests available under an emergency access mechanism called an Emergency Use Authorization (EUA). The EUA for this test is supported by the Housing Inspector of Health and Human Service's (HHS's) declaration [...] Performed By: #### H DEB, CMP #### [facility] [address] [place] [address] Dr. Judd Andrade INFLUENZA A AND B AGon 06-02 [facility] SEE BELOW Normal [facility] Comment on above: Result Comment: Nega tive for Flu A protein angiten. Infection due to Flu A cannot be ruled out. Flu A angiten in the sample may be below the detection limit of the test. Performed By: #### H DEB, CMP #### [facility] [address] [address] [address] Judd [facility] Normal [facility] Comment on above: Result Comment: Nega tive for Flu B protein antigen. Infection due to Flu B cannot be ruled out. Flu B antigen in the sample may be below the detection limit of the test. Performed By: #### H DEB, CMP #### [facility] [address] [place] [address] Dr. Judd Andrade INFLUENZA A AG Negative Normal NEGATIVE SEE COMMENT [facility] Comment on above: Performed By: #### H DEB, CMP #### [facility] [address] [place], [place] [address] Dr. Judd Andrade INFLUENZA B AG Negative Normal NEGATIVE SEE COMMENT [facility] Comment on above: Performed By: #### H STROPN, CMP #### [facility] [address] [place], [place] [address] [address] HEAD_NECKon 02-11-2022 [...] by: GABO STRONG Date: 2022-02-11 16:24 Normal [facility] MG MAMM SCREEN 3D SUSANA CADon 02-10-2022 MG MAMM SCREEN 3D SUSANA CAD Patient: YULIA CASTANO Exam Date: 02/10/2022 : 1965 Gender:F Ordering : DR JOHN WHITE . Admission #: [id number] Family : Order #: [id number] CLICK HERE TO VIEW EXAM RADIOLOGY REPORT [...] breast cancer at age 40. LOCATION: [facility] BREAST COMPOSITION: Almost entirely fatty. FINDINGS: DIAGNOSTIC [...] M.D. on 02/11/2022 at 14:20 Normal [facility] XR CHEST 1 Von 01-15-2022 XR CHEST [...] KAREN VALDEZ Date: 2022-01-15 18:39 Normal [facility] CBC AUTO DIFFon 12-30-2021 BASO # 0.0 103/ul Normal 0.0-0.1 [facility] Comment on above: Performed By: #### C BC #### [facility] [address] [place] [address] Dr. Judd Andrade Basophils/100 WBC (Bld) 0.6 % Normal 0.2-2.0 [facility] Comment on above: Performed By: #### C BC #### [facility] [address] [place] [address] Dr. Judd Andrade EO # 0.1 103/ul Normal 0.0-0.7 [facility] Comment on above: Performed By: #### C BC #### [facility] [address] [address] [address] Judd Andrade Eosinophils/100 WBC (Bld) 2.1 % Normal 0.9-7.0 [facility] Comment on above: Performed By: #### C BC #### [facility] [address] [place] [address] Dr. Judd Andrade Erythrocyte distribution width (RBC) [Ratio] 13.0 % Normal 11.0-15.0 [facility] Comment on above: Performed By: #### C BC #### [facility] [address] [place] [address] Dr. Judd Andrade Hematocrit (Bld) [Volume fraction] 41.9 % Normal 36.0-48.0 [facility] Comment on above: Performed By: #### C BC #### [facility] [address] [place] [address] Dr. Judd Andrade Hemoglobin (Bld) [Mass/Vol] 13.7 g/dL Normal 12.0-16.0 [facility] Comment on above: Performed By: #### C BC #### [facility] [address] [place] [address] Dr. Judd Andrade IG # 0.03 10e3/ul Normal 0.00-0.03 [facility] Comment on above: Performed By: #### C BC #### [facility] [address] [place] [address] Dr. Judd Andrade IG % 0.6 % Critically high 0.0-0.5 [facility] Comment on above: Performed By: #### C BC #### [facility] [address] [place] [address] Dr. Judd Andrade LYMPH # 1.9 103/ul Normal 1.2-3.8 [facility] Comment on above: Performed By: #### C BC #### [facility] [address] [place] [address] Dr. Judd Andrade Lymphocytes/100 WBC (Bld) 34.5 % Normal 20.5-60.0 [facility] Comment on above: Performed By: #### C BC #### [facility] [address] [place] [address] Dr. Judd Andrade MANUAL DIFF REQ NO Normal [facility] Comment on above: Performed By: #### C BC #### [facility] [address] [place] [address] Dr. Judd Andrade MCH (RBC) [Entitic mass] 28.5 pg Normal 26.7-34.0 [facility] Comment on above: Performed By: #### C BC #### [facility] [address] [place] [address] Dr. Judd Andrade MCHC (RBC) [Mass/Vol] 32.7 g/dL Normal 29.9-35.2 [facility] Comment on above: Performed By: #### C BC #### [facility] [address] [place] [address] Dr. Judd Andrade MCV (RBC) [Entitic vol] 87.1 fL Normal 81.0-99.0 [facility] Comment on above: Performed By: #### C BC #### [facility] [address] [place] [address] Dr. Judd Andrade MONO # 0.6 103/ul Normal 0.3-0.8 [facility] Comment on above: Performed By: #### C BC #### [facility] [address] [place] [address] Dr. Judd Andrade Monocytes/100 WBC (Bld) 10.4 % Normal 1.7-12.0 [facility] Comment on above: Performed By: #### C BC #### [facility] [address] [place] [address] Dr. Judd Andrade NEUT # 2.8 103/ul Normal 1.4-6.5 [facility] Comment on above: Performed By: #### C BC #### [facility] [address] [place] [address] Dr. Judd Andrade Neutrophils/100 WBC (Bld) 51.8 % Normal 43.0-75.0 [facility] Comment on above: Performed By: #### C BC #### [facility] [address] [place] [address] Dr. Judd Andrade Platelet mean volume (Bld) [Entitic vol] 10.5 fL Normal 9.5-13.5 [facility] Comment on above: Performed By: #### C BC #### [facility] [address] [place] [address] Dr. Judd Andrade PLT 270 103/ul Normal 150-450 [facility] Comment on above: Performed By: #### C BC #### [facility] [address] [place] [address] Dr. Judd Andrade RBC 4.81 106/ul Normal 4.20-5.40 [facility] Comment on above: Performed By: #### C BC #### [facility] [address] [place] [address] Dr. Judd Andrade WBC 5.4 103/ul Normal 4.0-11.0 [facility] Comment on above: Performed By: #### C BC #### [facility] [address] [place] [address] Dr. Judd Andrade CRPon 12-30-2021 CRP [Mass/Vol] mg/L Normal <=1.0 [facility] Comment on above: Performed By: #### C BC #### [facility] [address] [place] [address] Dr. Judd Andrade PROF 14(COMP METB)on 022 Albumin [Mass/Vol] 3.9 g/dL Normal 3.4-5.0 [place] Comment on above: Performed By: #### C BC #### [facility] [address] [place] [address] Dr. Judd Andrade Albumin/Globulin [Mass ratio] 1.0 {ratio} Normal [facility] Comment on above: Performed By: #### C BC #### [facility] [address] [place] [address] Dr. Judd Andrade ALP [Catalytic activity/Vol] 64 U/L Normal 46-116 [facility] Comment on above: Performed By: #### C BC #### [facility] [address] [place] [address] Dr. Judd Andrade ALT [Catalytic activity/Vol] 50 U/L Normal 14-59 [facility] Comment on above: Performed By: #### C BC #### [facility] [address] [place] [address] Dr. Judd Andrade Anion gap [Moles/Vol] 11.1 mmol/L Normal [facility] Comment on above: Performed By: #### C BC #### [facility] [address] [place] [address] Dr. Judd Andrade AST [Catalytic activity/Vol] 28 U/L Normal 15-37 [facility] Comment on above: Performed By: #### C BC #### [facility] [address] [address] [address] Judd Andrade Bilirubin [Mass/Vol] 0.5 mg/dL Normal 0.2-1.0 [facility] Comment on above: Performed By: #### C BC #### [facility] [address] [address] [address] Judd Andrade Calcium [Mass/Vol] 8.9 mg/dL Normal 8.5-10.1 [place] Comment on above: Performed By: #### C BC #### [facility] [address] [address] [address] Judd Andrade Chloride [Moles/Vol] 101 mmol/L Normal 98-107 [facility] Comment on above: Performed By: #### C BC #### [facility] [address] [place] [address] Dr. Judd Andrade CO2 [Moles/Vol] 29.4 mmol/L Normal 21.0-32.[address] [facility] Comment on above: Performed By: #### C BC #### [facility] [address] [place] [address] Dr. Judd Andrade Creatinine [Mass/Vol] 0.73 mg/dL Normal 0.55-1.02 [facility] Comment on above: Performed By: #### C BC #### [facility] [address] [place] [address] Dr. Judd Andrade EGFR-AF DUTCH >60 Normal >=60 [facility] Comment on above: Performed By: #### C BC #### [facility] [address] [place] [address] Dr. Judd Andrade EGFR-NON AF DUTCH >60 Normal >=60 [facility] Comment on above: Performed By: #### C BC #### [facility] [address] [place] [address] Dr. Judd Andrade Globulin (S) [Mass/Vol] 3.8 g/dL Normal [facility] Comment on above: Performed By: #### C BC #### [facility] [address] [address] [address] Judd Andrade Glucose [Mass/Vol] 139 mg/dL Critically high 74-106 T [facility] Comment on above: Performed By: #### C BC #### [facility] [address] [address] Judd Andrade Potassium [Moles/Vol] 3.5 mmol/L Normal 3.5-5.1 [facility] Comment on above: Performed By: #### C BC #### [facility] [address] [address] [address] Judd Andrade Protein [Mass/Vol] 7.7 g/dL Normal 6.4-8.2 [place] Comment on above: Performed By: #### C BC #### [facility] [address] [address] [address] Judd Andrade Sodium [Moles/Vol] 138 mmol/L Normal 136-145 [place] Comment on above: Performed By: #### C BC #### [facility] [address] [address] [address] Judd Andrade Urea nitrogen [Mass/Vol] 12.0 mg/dL Normal 7.0-18.0 [facility] Comment on above: Performed By: #### C BC #### [facility] [address] [address] [address] Judd Andrade Urea nitrogen/Creatinine [Mass ratio] 16.4 mg/mg Normal [facility] Comment on above: Performed By: #### C BC #### [facility] [address] [address] [address] Judd Andrade XR CHEST 2 Von [...] ARTEMIO DIXON Date: 2021-12-29 20:49 Normal [facility] TRYPTASEon 12-27-2021 Tryptase 4.5 ug/L Normal 2.2-13.2 [facility] Comment on above: Performed By: #### C BC #### [facility] [address] [place] [address] Dr. Judd Andrade CBC AUTO DIFFon 12-23-2021 BASO # 0.0 103/ul Normal 0.0-0.1 [facility] Comment on above: Performed By: #### H STROPN, CMP #### [facility] [address] [place] [address] Dr. Judd Andrade Basophils/100 WBC (Bld) 0.7 % Normal 0.2-2.0 [facility] Comment on above: Performed By: #### H STROPN, CMP #### [facility] [address] [place] [address] Dr. Judd Andrade EO # 0.0 103/ul Normal 0.0-0.7 [facility] Comment on above: Performed By: #### H STROPN, CMP #### [facility] [address] [place] [address] Dr. Judd Andrade Eosinophils/100 WBC (Bld) 0.0 % Critically low 0.9-7.0 [facility] Comment on above: Performed By: #### H STROPN, CMP #### [facility] [address] [place] [address] Dr. Judd Andrade Erythrocyte distribution width (RBC) [Ratio] 13.2 % Normal 11.0-15.0 [facility] Comment on above: Performed By: #### H STROPN, CMP #### [facility] [address] [place] [address] Dr. Judd Andrade Hematocrit (Bld) [Volume fraction] 42.1 % Normal 36.0-48.0 [facility] Comment on above: Performed By: #### H STROPN, CMP #### [facility] [address] [place] [address] Dr. Judd Andrade Hemoglobin (Bld) [Mass/Vol] 13.7 g/dL Normal 12.0-16.0 [facility] Comment on above: Performed By: #### H STROPN, CMP #### [facility] [address] [address] [address] Judd Andrade IG # 0.01 10e3/ul Normal 0.00-0.03 [facility] Comment on above: Performed By: #### H STROPN, CMP #### [facility] [address] [address] [address] Judd Andrade IG % 0.3 % Normal 0.0-0.5 [facility] Comment on above: Performed By: #### H STROPN, CMP #### [facility] [address] [address] [address] Judd Andrade LYMPH # 0.7 103/ul Critically low 1.2-3.8 [facility] Comment on above: Performed By: #### H STROPN, CMP #### [facility] [address] [address] [address] Judd Andrade Lymphocytes/100 WBC (Bld) 24.1 % Normal 20.5-60.0 [facility] Comment on above: Performed By: #### H STROPN, CMP #### [facility] [address] [address] [address] Judd Andrade MANUAL DIFF REQ NO Normal [facility] Comment on above: Performed By: #### H STROPN, CMP #### [facility] [address] [address] [address] Judd Andrade MCH (RBC) [Entitic mass] 28.4 pg Normal 26.7-34.0 [facility] Comment on above: Performed By: #### H STROPN, CMP #### [facility] [address] [address] [address] Judd Andrade MCHC (RBC) [Mass/Vol] 32.5 g/dL Normal 29.9-35.2 [facility] Comment on above: Performed By: #### H STROPN, CMP #### [facility] [address] [address] [address] Judd Andrade MCV (RBC) [Entitic vol] 87.2 fL Normal 81.0-99.0 [facility] Comment on above: Performed By: #### H STROPN, CMP #### [facility] [address] [place] [address] Dr. Judd Andrade MONO # 0.5 103/ul Normal 0.3-0.8 [facility] Comment on above: Performed By: #### H STROPN, CMP #### [facility] [address] [place] [address] Dr. Judd Andrade Monocytes/100 WBC (Bld) 16.9 % Critically high 1.7-12.0 [facility] Comment on above: Performed By: #### H STROPN, CMP #### [facility] [address] [place] [address] Dr. Judd Andrade NEUT # 1.8 103/ul Normal 1.4-6.5 [facility] Comment on above: Performed By: #### H STROPN, CMP #### [facility] [address] [place] [address] Dr. Judd Andrade Neutrophils/100 WBC (Bld) 58.0 % Normal 43.0-75.0 [facility] Comment on above: Performed By: #### H STROPN, CMP #### [facility] [address] [place] [address] Dr. Judd Andrade Platelet mean volume (Bld) [Entitic vol] 9.9 fL Normal 9.5-13.5 [facility] Comment on above: Performed By: #### H STROPN, CMP #### [facility] [address] [place] [address] Dr. Judd Andrade PLT 210 103/ul Normal 150-450 [facility] Comment on above: Performed By: #### H STROPN, CMP #### [facility] [address] [place] [address] Dr. Judd Andrade RBC 4.83 106/ul Normal 4.20-5.40 [facility] Comment on above: Performed By: #### H STROPN, CMP #### [facility] [address] [place] [address] Dr. Judd Andrade WBC 3.1 103/ul Critically low 4.0-11.0 [facility] Comment on above: Performed By: #### H TERAPN, CMP #### [facility] [address] [place] [address] Dr. Judd Andrade IRONon 12-23-2021 Iron [Mass/Vol] 35.0 ug/dL Critically low 50.0-170.0 [facility] Comment on above: Performed By: #### C BC #### [facility] [address] [place] [address] Dr. Judd Andrade PROF 14(COMP METB)on 022 Albumin [Mass/Vol] 3.9 g/dL Normal 3.4-5.0 [place] Comment on above: Performed By: #### C BC #### [facility] [address] [place] [address] Dr. Judd Andrade Albumin/Globulin [Mass ratio] 1.0 {ratio} Normal [facility] Comment on above: Performed By: #### C BC #### [facility] [address] [place] [address] Dr. Judd Andrade ALP [Catalytic activity/Vol] 70 U/L Normal 46-116 [facility] Comment on above: Performed By: #### C BC #### [facility] [address] [place] [address] Dr. Judd Andrade ALT [Catalytic activity/Vol] 43 U/L Normal 14-59 [facility] Comment on above: Performed By: #### C BC #### [facility] [address] [place] [address] Dr. Judd Andrade Anion gap [Moles/Vol] 11.5 mmol/L Normal [facility] Comment on above: Performed By: #### C BC #### [facility] [address] [place] [address] Dr. Judd Andrade AST [Catalytic activity/Vol] 33 U/L Normal 15-37 [facility] Comment on above: Performed By: #### C BC #### [facility] [address] [place] [address] Dr. Judd Andrade Bilirubin [Mass/Vol] 0.3 mg/dL Normal 0.2-1.0 [facility] Comment on above: Performed By: #### C BC #### [facility] [address] [place] [address] Dr. Judd Andrade Calcium [Mass/Vol] 8.9 mg/dL Normal 8.5-10.1 [place] Comment on above: Performed By: #### C BC #### [facility] [address] [address] [address] Judd Andrade Chloride [Moles/Vol] 101 mmol/L Normal 98-107 [facility] Comment on above: Performed By: #### C BC #### [facility] [address] [place] [address] Dr. Judd Andrade CO2 [Moles/Vol] 31.1 mmol/L Normal 21.0-32.[address] [facility] Comment on above: Performed By: #### C BC #### [facility] [address] [place] [address] Dr. Judd Andrade Creatinine [Mass/Vol] 0.69 mg/dL Normal 0.55-1.02 [facility] Comment on above: Performed By: #### C BC #### [facility] [address] [place] [address] Dr. Judd Andrade EGFR-AF DUTCH >60 Normal >=60 [facility] Comment on above: Performed By: #### C BC #### [facility] [address] [place] [address] Dr. Judd Andrade EGFR-NON AF DUTCH >60 Normal >=60 [facility] Comment on above: Performed By: #### C BC #### [facility] [address] [place] [address] Dr. Judd Andrade Globulin (S) [Mass/Vol] 3.8 g/dL Normal [facility] Comment on above: Performed By: #### C BC #### [facility] [address] [place] [address] Dr. Judd Andrade Glucose [Mass/Vol] 103 mg/dL Normal 74-106 [facility] Comment on above: Performed By: #### C BC #### [facility] [address] [address] [address] Judd Andrade Potassium [Moles/Vol] 3.6 mmol/L Normal 3.5-5.1 [facility] Comment on above: Performed By: #### C BC #### [facility] [address] [address] [address] Judd Andrade Protein [Mass/Vol] 7.7 g/dL Normal 6.4-8.2 [facility] Comment on above: Performed By: #### C BC #### [facility] [address] [address] [address] Judd Andrade Sodium [Moles/Vol] 140 mmol/L Normal 136-145 [place] Comment on above: Performed By: #### C BC #### [facility] [address] [address] [address] Judd Andrade Urea nitrogen [Mass/Vol] 11.0 mg/dL Normal 7.0-18.0 [facility] Comment on above: Performed By: #### C BC #### [facility] [address] [address] [address] Judd Andrade Urea nitrogen/Creatinine [Mass ratio] 15.9 mg/mg Normal [facility] Comment on above: Performed By: #### C BC #### [facility] [address] [address] [address] Judd Andrade PROTIMEon 12-23-2021 INR Coag (PPP) [Relative time] 1.04 {INR} Normal [facility] Comment on above: Performed By: #### H DEB, CMP #### [facility] [address] [address] [address] Judd Andrade INR GUIDELINES SEE BELOW Normal [facility] Comment on above: Result Comment: PRIETO RED INR: 2.0 - 3.0 CONDITIONS NOT LISTED BELOW 2.5 - 3.5 FOR PROSTHETIC HEART VALVE REPLACEMENT 2.5 - 3.5 RECURRENT THROMBOSIS Performed By: #### H DEB, CMP #### [facility] [address] [address] [address] Judd Andrade PT Coag (PPP) [Time] 11.2 s Normal 9.0-11.6 [facility] Comment on above: Performed By: #### H DEB, CMP #### [facility] [address] [place] [address] Dr. Judd Andrade PTTon 12-23-2021 aPTT Coag (Bld) [Time] 31.5 s Normal 22.3-36.2 [facility] Comment on above: Performed By: #### H DEB, CMP #### [facility] [address] [place] [address] Dr. Judd Andrade ER URINE PROFILEon Bilirubin Ql (U) Negative Normal NEGATIVE [facility] Comment on above: Performed By: #### H DEB, CMP #### [facility] [address] [place] [address] Dr. Judd Andrade Clarity (U) CLEAR Normal CLEAR [facility] Comment on above: Performed By: #### H DEB, CMP #### [facility] [address] [place] [address] Dr. Judd Andrade Color (U) LT. YELLOW Normal YELLOW [facility] Comment on above: Performed By: #### H DEB, CMP #### [facility] [address] [place] [address] Dr. Judd SMITH A micrscopic examination will be performed if indicated. Normal [facility] Comment on above: Performed By: #### H DEB, CMP #### [facility] [address] [place] [address] Dr. Judd Andrade Glucose Ql (U) Negative Normal NEGATIVE [facility] Comment on above: Performed By: #### H DEB, CMP #### [facility] [address] [place] [address] Dr. Judd Andrade Hemoglobin Ql (U) TRACE-INTACT Abnormal NEGATIVE [facility] Comment on above: Performed By: #### H DEB, CMP #### [facility] [address] [place] [address] Dr. Judd Andrade Ketones Ql (U) Negative Normal NEGATIVE [facility] Comment on above: Performed By: #### H STROPN, CMP #### [facility] [address] [place] [address] Dr. Judd Andrade LEUKOCYTES Negative Normal NEGATIVE [facility] Comment on above: Performed By: #### H STROPN, CMP #### [facility] [address] [address] [address] Judd Andrade Nitrite Ql (U) Negative Normal NEGATIVE [facility] Comment on above: Performed By: #### H STROPN, CMP #### [facility] [address] [address] [address] Judd Andrade pH (U) 6.0 [pH] Normal 5-9 [facility] Comment on above: Performed By: #### H STROPN, CMP #### [facility] [address] [place] [address] Dr. Judd Andrade SPEC GRAVITY 1.005 Normal 1.005-<=1.025 [facility] Comment on above: Performed By: #### H STROPN, CMP #### [facility] [address] [place] [address] Dr. Judd Andrade UA PROTEIN Negative Normal NEGATIVE/ TRACE [facility] Comment on above: Performed By: #### H STROPN, CMP #### [facility] [address] [place] [address] Dr. Judd Andrade UR MICRO IND INDICATED Normal [facility] Comment on above: Performed By: #### H STROPN, CMP #### [facility] [address] [place] [address] Dr. Judd Andrade Urobilinogen Qn (U) 0.2 {Carol'U}/dL Normal 0.2 - 1. 0 [facility] Comment on above: Performed By: #### H STROPN, CMP #### [facility] [address] [place] [address] Dr. Judd Andrade URINE MICROSCOPIC ONLYon BACTERIA NONE SEEN Normal NONE SEEN [facility] Comment on above: Performed By: #### H STROPN, CMP #### [facility] [address] [address] [address] Judd Andrade Bacteria identified Cx Nom (U) NOT INDICATED Normal [facility] Comment on above: Performed By: #### H STROPN, CMP #### [facility] [address] [place] [address] Dr. Judd Andrade CAST NONE SEEN Normal NONE SEEN [facility] Comment on above: Performed By: #### H STROPN, CMP #### [facility] [address] [address] [address] Judd Andrade Crystals LM Nom (Urine sed) NONE SEEN Normal NONE SEEN [facility] Comment on above: Performed By: #### H STROPN, CMP #### [facility] [address] [place] [address] Dr. Judd Andrade Epithelial cells LM Ql (Urine sed) FEW Abnormal NONE SEEN /RARE [facility] Comment on above: Performed By: #### H STROPN, CMP #### [facility] [address] [place] [address] Dr. Judd Andrade MUCOUS NONE SEEN Normal NONE SEEN [facility] Comment on above: Performed By: #### H STROPN, CMP #### [facility] [address] [place] [address] Dr. Judd Andrade RBC 0-2 Normal 0-2 [facility] Comment on above: Performed By: #### H STROPN, CMP #### [facility] [address] [place] [address] Dr. Judd Andrade WBC NONE SEEN Normal NONE SEEN [facility] Comment on above: Performed By: #### H STROPN, CMP #### [facility] [address] [place] [address] Dr. Judd Andrade Summary Purpose Family History No Family History Records FoundNo Family History Records Found Advance Directives No Advanced Directives Records FoundNo Advanced Directives Records Found Additional Source Comments INFORMATION SOURCE (unrecogn ized section and content) DATE CREATED AUTHOR 10/02/2022 [facility] DATE CREATED AUTHOR AUTHOR'S ORGANIZ ATION 07/01/2023 [facility] EPIC FOR RECORDS PERTAINING TO [...] BE BASED ON THE PRIMARY CLINICAL RECORDS. [facility]. provides no warranty or guarantee of the accuracy or completeness of information in this document.
--- NOTE | 2023-10-26 09:59 | PM.PRESUREVA ---
History of Present Illness History of Present Illness Chief complaint: thickened endometrium, pelvic pain Narrative: Patient presents for preadmission testing. The patient states she had pelvic pain followed by an abnormal ultrasound. The patient states she has not had any vaginal bleeding. She reports she has canceled and rescheduled this procedure multiple times. She denies any new complaints at this time. Review of Systems ROS Narrative REVIEW OF SYSTEMS: Negative except as stated in HPI, ten or more systems reviewed. Constitutional: No fever, chills, weakness ENT: No sore throat or epistaxis Cardiovascular: No edema, chest pain, palpitations, or activity intolerance Respiratory: No shortness of breath, cough, or wheezing Musculoskeletal: No joint pain or swelling Gastrointestinal: No constipation, diarrhea, or vomiting Genitourinary: No dysuria or hematuria Neurological: No numbness, tingling, weakness, or headache Psychiatric: No mood changes [facility] Medical History (Updated 10/26/23 @ 09:33 by Tamanna Ragland NP) PTSD (post-traumatic stress disorder) ?F43.10 - Post-traumatic stress disorder, unspecified (ICD-10) Vitreous detachment ?H43.819 - Vitreous degeneration, unspecified eye (ICD-10) Panic attacks ?F41.0 - Panic disorder [episodic paroxysmal anxiety] (ICD-10) COVID-19 ?U07.1 - COVID-19 (ICD-10) Palpitations ?R00.2 - Palpitations (ICD-10) Sleep apnea ?G47.30 - Sleep apnea, unspecified (ICD-10) Migraine ?G43.909 - Migraine, unspecified, not intractable, without status migrainosus (ICD-10) Caleb Fox infection ?B27.90 - Infectious mononucleosis, unspecified without complication (ICD-10) Chronic fatigue ?R53.82 - Chronic fatigue, unspecified (ICD-10) Chronic bronchitis ?J42 - Unspecified chronic bronchitis (ICD-10) BPPV (benign paroxysmal positional vertigo) ?H81.10 - Benign paroxysmal vertigo, unspecified ear (ICD-10) Anemia ?D64.9 - Anemia, unspecified (ICD-10) Viral hepatitis ?B19.9 - Unspecified viral hepatitis without hepatic coma (ICD-10) 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 - Undifferentiated somatoform disorder (ICD-10) Hearing loss ?H91.90 - Unspecified hearing loss, unspecified ear (ICD-10) Menorrhagia ?N92.0 - Excessive and frequent menstruation with regular cycle (ICD-10) M?ni?re's disease ?H81.09 - Meniere's disease, unspecified ear (ICD-10) Depression ?F32.A - Depression, unspecified (ICD-10) Irritable bowel syndrome ?K58.9 - Irritable bowel syndrome without diarrhea (ICD-10) Vertigo ?R42 - Dizziness and giddiness (ICD-10) Cervical disc disorder ?M50.90 - Cervical disc disorder, unspecified, unspecified cervical region (ICD-10) Tinnitus ?H93.19 - Tinnitus, unspecified ear (ICD-10) Anxiety ?F41.9 - Anxiety disorder, unspecified (ICD-10) GERD (gastroesophageal reflux disease) ?K21.9 - Gastro-esophageal reflux disease without esophagitis (ICD-10) Pelvic pain ?R10.2 - Pelvic and perineal pain (ICD-10) Thickened endometrium ?R93.89 - Abnormal findings on diagnostic imaging of other specified body structures (ICD-10) Surgical History (Updated 07/19/23 @ 15:07 by Tamanna Ragland NP) History of esophagogastroduodenoscopy (EGD) ?Z98.890 - Other specified postprocedural states (ICD-10) S/P wisdom tooth extraction ?Z98.818 - Other dental procedure status (ICD-10) Hx of tonsillectomy ?Z90.89 - Acquired absence of other organs (ICD-10) History of hysteroscopy ?Z98.890 - Other specified postprocedural states (ICD-10) History of cholecystectomy ?Z90.49 - Acquired absence of other specified parts of digestive tract (ICD-10) Family History (Updated 07/19/23 @ 15:00 by Tamanna Ragland NP) Other Family history of cancer Family history of coronary artery disease Family history of diabetes mellitus Family history of hypertension Family history of stroke Heart disease Social History (Updated 07/19/23 @ 14:55 by Tamanna Ragland NP) Within the past year, how often did you have a drink containing alcohol: monthly or less Smoking status: Never smoker Non-prescribed substance use: denies use 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 Highest level of school completed/degree received: Master's degree Meds Home Medications and Allergies Home Medications ?Medication ?Instructions ?Recorded ?Confirmed ?Type cholecalciferol (vitamin D3) 10 10 mcg PO DAILY 07/19/23 10/26/23 History mcg (400 unit) capsule lactobacillus combination no.4 3 3,000 mmu cells PO DAILY 07/19/23 10/26/23 History billion cell capsule (Probiotic) multivitamin (Daily Multi-Vitamin 1 tab PO DAILY 07/19/23 10/26/23 History tablet) ascorbic acid (vitamin C) 500 mg 500 mg PO DAILY 08/24/23 10/26/23 History chewable tablet (Acerola C) calcium carbonate (Antacid 200 mg PO DAILY 08/24/23 10/26/23 History (calcium carbonate)) alprazolam 0.25 mg tablet 0.25 mg PO BID PRN anxiety 10/26/23 10/26/23 History meclizine 25 mg chewable tablet 25 mg PO TID-QID PRN dizziness 10/26/23 10/26/23 History (Antivert) Allergies Allergy/AdvReac Type Severity Reaction Status Date / Time coconut Allergy Swelling Verified 10/26/23 09:28 of Lip/Tongue/Throat erythromycin base Allergy Fever Verified 10/26/23 09:28 [From Erythrocin] imipramine Allergy Hives Verified 10/26/23 09:28 pepper (genus Capsicum) Allergy throat Verified 10/26/23 09:28 swelling Sulfa (Sulfonamide Allergy Hives Verified 10/26/23 09:28 Antibiotics) Exam Narrative Exam Narrative: Constitutional: Awake, alert, comfortable, well-appearing, nontoxic, interactive, vital signs as charted Head: Normocephalic, atraumatic Neck: Supple, normal appearance, normal range of motion, no meningeal signs, no lymphadenopathy Respiratory: No respiratory distress, breath sounds clear Cardiovascular: Regular rate and rhythm, strong and regular heart tones Abdomen: Nontender, normal bowel sounds, soft, no CVA tenderness Musculoskeletal: Normal gait, no swelling or edema Skin: No rashes or induration, no lesions, only visible skin inspected Neuro: No neurological deficits, normal sensation Psychiatric: Oriented ?3, normal affect Assessment and Plan Assessment and Plan (1) Thickened endometrium: (2) Pelvic pain: Plan D&C, hysteroscopy, possible MyoSure Scheduled with Dr. Yocasta Clifford 12, 2024.
== END 2023-10-26 09:25 | disposition home or self-care (01) ==
PROVIDERS: PCP Family Medicine; Visit Provider Obstetrics & Gynecology
DX: Z01.818 Encounter for other preprocedural examination (principal); R93.89 Abnormal findings on diagnostic imaging of other specified body structures; R10.2 Pelvic and perineal pain
CPT/HCPCS: G0463

== ENCOUNTER 2023-11-23 07:36 | Outpatient (OUT) | payer OTHER, SELFPAY ==
--- NOTE | 2023-11-23 07:38 | US_ITS ---
[address] [address] Patient Name: YULIA CASTANO MRN: [id number] date: 1965 Sex: F Assigned Patient Location: Current Patient Location: [place] Accession/Order Number: [id number] Exam Date: 11/23/2023 07:40 Report Date: 11/23/2023 08:19 At the request of: JOHN WHITE Procedure: US renal BI EXAMINATION: US renal BI HISTORY: Flank Pain COMPARISON: No relevant comparison available. TECHNIQUE: Ultrasound examination was performed of the bladder. FINDINGS: Right Kidney: Normal in size and contour. The cortex measures 0.6 cm. No solid cortical mass, hydronephrosis or obstructing nephrolithiasis Height: 4.67 cm Length: 9.21 cm Width: 4.89 cm Left Kidney: Normal in size and contour. The cortex measures 0.5 cm. No solid cortical mass, hydronephrosis or obstructing nephrolithiasis. 4 mm nonobstructing nephrolith Height: 6.25 cm Length: 9.72 cm Width: 5.30 cm Urinary bladder is unremarkable. Volume 209 mL US/US renal BI IMPRESSION: Bilateral renal cortical atrophy Nonobstructing left 4 mm nephrolith Electronically authenticated by: ELLYN ALVAREZ Date: 11/23/2023 08:19
--- OUTSIDE RECORDS SUMMARY | 2023-11-23 07:40 | XMS_ITS | CCD ---
Author Organization [facility] Care Team Providers Care Director Radio News Name Role Phone ABELINOY ., DR LOPEZ [...] Unavailable JUANJOSE ., DR WILSON Attending Unavailable CAMP, DR ELLYN Dougherty Consulting Unavailable HOY ., [...] (1 source) Azithromycin Drug Allergy 12-20-2021 [facility] Repository (2 sources) Imipramine Drug Allergy 10-05-2012 [facility] Rep[facility] (2 sources) Sulfonamides (Antibiotic) Drug allergy (disorder) 10-05-2012 [facility] Rep[facility] (2 sources) E.E.S. 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 Admission #: [id number] Family : Order #: [id number] CLICK HERE TO VIEW EXAM RADIOLOGY REPORT [...] breast cancer at age 40. LOCATION: [facility] BREAST COMPOSITION: Almost entirely fatty. FINDINGS: [...] on 09/22/2022 at 15:03 Normal [facility] US BREAST RIGHT LIMITEDon US BREAST RIGHT LIMITED Patient: YULIA CASTANO Exam Date: 09/22/2022 : 1965 Gender:F Ordering : DR KATIE SOW . Admission #: [id number] Family : Order #: [id number] CLICK HERE TO VIEW EXAM RADIOLOGY REPORT [...] breast cancer at age 40. LOCATION: [facility] BREAST COMPOSITION: Almost entirely fatty. FINDINGS: [...] MD on 09/22/2022 at 15:03 Normal [facility] US ST HEAD_NECKon 08-31-[address] [...] GABO STRONG Date: 2022-08-31 08:09 Normal [facility] US PELVIS AND TRANSVAGon US PELVIS [...] GABO STRONG Date: 2022-07-29 06:32 Normal [facility] INSULINon 07-04-2022 Insulin 6.2 uIU/mL Normal 2.6-24.9 [facility] Comment on above: Performed By: #### H DEB, CMP #### [facility] [address] [place] [address] Dr. Judd Andrade CBC AUTO DIFFon 07-03-2022 BASO # 0.0 103/ul Normal 0.0-0.1 [facility] Comment on above: Performed By: #### C BC #### [facility] [address] [address] [address] Judd Andrade Basophils/100 WBC (Bld) 1.1 % Normal 0.2-2.0 [facility] Comment on above: Performed By: #### C BC #### [facility] [address] [address] [address] Judd Andrade EO # 0.1 103/ul Normal 0.0-0.7 [facility] Comment on above: Performed By: #### C BC #### [facility] [address] [place] [address] Dr. Judd Andrade Eosinophils/100 WBC (Bld) 3.6 % Normal 0.9-7.0 [facility] Comment on above: Performed By: #### C BC #### [facility] [address] [place] [address] Dr. Judd Andrade Erythrocyte distribution width (RBC) [Ratio] 13.6 % Normal 11.0-15.0 [facility] Comment on above: Performed By: #### C BC #### [facility] [address] [place] [address] Dr. Judd Andrade Hematocrit (Bld) [Volume fraction] 41.8 % Normal 36.0-48.0 [facility] Comment on above: Performed By: #### C BC #### [facility] [address] [place] [address] Dr. Judd Andrade Hemoglobin (Bld) [Mass/Vol] 13.5 g/dL Normal 12.0-16.0 [facility] Comment on above: Performed By: #### C BC #### [facility] [address] [place] [address] Dr. Judd Andrade IG # 0.01 10e3/ul Normal 0.00-0.03 [facility] Comment on above: Performed By: #### C BC #### [facility] [address] [place] [address] Dr. Judd Andrade IG % 0.3 % Normal 0.0-0.5 [facility] Comment on above: Performed By: #### C BC #### [facility] [address] [place] [address] Dr. Judd Andrade LYMPH # 1.4 103/ul Normal 1.2-3.8 [facility] Comment on above: Performed By: #### C BC #### [facility] [address] [place] [address] Dr. Judd Andrade Lymphocytes/100 WBC (Bld) 38.4 % Normal 20.5-60.0 [facility] Comment on above: Performed By: #### C BC #### [facility] [address] [place] [address] Dr. Judd Andrade MANUAL DIFF REQ NO Normal [facility] Comment on above: Performed By: #### C BC #### [facility] [address] [place] [address] Dr. Judd Andrade MCH (RBC) [Entitic mass] 28.2 pg Normal 26.7-34.0 [facility] Comment on above: Performed By: #### C BC #### [facility] [address] [place] [address] Dr. Judd Andrade MCHC (RBC) [Mass/Vol] 32.3 g/dL Normal 29.9-35.2 [facility] Comment on above: Performed By: #### C BC #### [facility] [address] [place] [address] Dr. Judd Andrade MCV (RBC) [Entitic vol] 87.4 fL Normal 81.0-99.0 [facility] Comment on above: Performed By: #### C BC #### [facility] [address] [place] [address] Dr. Judd Andrade MONO # 0.4 103/ul Normal 0.3-0.8 [facility] Comment on above: Performed By: #### C BC #### [facility] [address] [place] [address] Dr. Judd Andrade Monocytes/100 WBC (Bld) 10.4 % Normal 1.7-12.0 [facility] Comment on above: Performed By: #### C BC #### [facility] [address] [address] [address] Judd Andrade NEUT # 1.7 103/ul Normal 1.4-6.5 [facility] Comment on above: Performed By: #### C BC #### [facility] [address] [address] [address] Judd Andrade Neutrophils/100 WBC (Bld) 46.2 % Normal 43.0-75.0 [facility] Comment on above: Performed By: #### C BC #### [facility] [address] [place] [address] Dr. Judd Andrade Platelet mean volume (Bld) [Entitic vol] 9.6 fL Normal 9.5-13.5 [facility] Comment on above: Performed By: #### C BC #### [facility] [address] [place] [address] Dr. Judd Andrade PLT 246 103/ul Normal 150-450 [facility] Comment on above: Performed By: #### C BC #### [facility] [address] [place] [address] Dr. Judd Andrade RBC 4.78 106/ul Normal 4.20-5.40 [facility] Comment on above: Performed By: #### C BC #### [facility] [address] [place] [address] Dr. Judd Andrade WBC 3.7 103/ul Critically low 4.0-11.0 [facility] Comment on above: Performed By: #### C BC #### [facility] [address] [place] [address] Dr. Judd Andrade FREE THYROXINE INDEX T7on FTI 3.20 Normal 1.30-4.50 [facility] Comment on above: Performed By: #### T 7, LIPID, TSH, CMP #### [facility] [address] [place] [address] Dr. Judd Andrade T3U 36.0 % Normal 30.0-39.0 [facility] Comment on above: Performed By: #### T 7, LIPID, TSH, CMP #### [facility] [address] [address] [address] Judd Andrade T4 [Mass/Vol] 8.90 ug/dL Normal 4.80-13.90 [facility] Comment on above: Performed By: #### T 7, LIPID, TSH, CMP #### [facility] [address] [place] [address] Dr. Judd Andrade GLYCOHEMOGLOBIN A1Con 2022 ADA RECOMMENDATION SEE BELOW Normal [facility] Comment on above: Result Comment: ADA RECOMMENDED LIMIT 4.0 - 6.0 ADA THERAPEUTIC TARGET < 7.0 ACTION SUGGESTED > 7.0 Performed By: #### C BC #### [facility] [address] [place] [address] Dr. Judd Andrade Glucose [Mass/Vol] 120 mg/dL Normal [facility] Comment on above: Performed By: #### C BC #### [facility] [address] [place] [address] Dr. Judd Andrade HbA1c (Bld) [Mass fraction] 5.8 % Normal 4.5-6.2 [facility] Comment on above: Performed By: #### C BC #### [facility] [address] [place] [address] Dr. Judd Andrade IRONon 07-03-2022 Iron [Mass/Vol] 67.0 ug/dL Normal 50.0-170.0 [facility] Comment on above: Performed By: #### V ITAD, IRON #### [facility] [address] [place] [address] Dr. Judd Andrade LIPID PROFILEon 07-03-2022 CHOL-HDL RATIO NORM SEE BELOW Normal [facility] Comment on above: Result Comment: 3.3 - 4.4 LOW RISK 4.4 - 7.1 AVERAGE RISK 7.1 - 11.0 MODERATE RISK >11.0 HIGH RISK Performed By: #### T 7, LIPID, TSH, CMP #### [facility] [address] [place] [address] Dr. Judd Andrade Cholesterol [Mass/Vol] 216 mg/dL Critically high <=200 [facility] Comment on above: Performed By: #### T 7, LIPID, TSH, CMP #### [facility] [address] [address] [address] Judd Andrade Cholesterol in HDL [Mass/Vol] 87 mg/dL Critically high 40-60 [facility] Comment on above: Performed By: #### T 7, LIPID, TSH, CMP #### [facility] [address] [address] [address] Judd Andrade Cholesterol in LDL [Mass/Vol] 124.2 mg/dL Normal [facility] Comment on above: Performed By: #### T 7, LIPID, TSH, CMP #### [facility] [address] [address] [address] Judd Andrade Cholesterol.total/Ch olesterol in HDL [Mass ratio] 2.5 {ratio} Normal [facility] Comment on above: Performed By: #### T 7, LIPID, TSH, CMP #### [facility] [address] [address] [address] Judd Andrade HDL NORMAL > or = 60 mg/dl - LO W CARDIOVASCULAR RISK <40 mg/dl - HIGH CARDIOVASCULAR RISK Normal [facility] Comment on above: Performed By: #### T 7, LIPID, TSH, CMP #### [facility] [address] [address] [address] Judd Andrade LDL CALC NORMAL SEE BELOW Normal [facility] Comment on above: Result Comment: <100 mg/dl OPTIMAL 100 - 129 mg/dl NEAR OR ABOVE OPTIMAL 130 - 159 mg/dl BORDERLINE HIGH 160 - 189 mg/dl HIGH >190 mg/dl VERY HIGH Performed By: #### T 7, LIPID, TSH, CMP #### [facility] [address] [address] [address] Judd Andrade Triglyceride [Mass/Vol] 24 mg/dL Normal <=150 [facility] Comment on above: Performed By: #### T 7, LIPID, TSH, CMP #### [facility] [address] [address] [address] Judd Andrade VLDL CALC 4.8 mg/dL Normal [facility] Comment on above: Performed By: #### T 7, LIPID, TSH, CMP #### [facility] [address] [place] [address] Dr. Judd Andrade PROF 14(COMP METB)on 023 Albumin [Mass/Vol] 4.0 g/dL Normal 3.4-5.0 [facility] Comment on above: Performed By: #### T 7, LIPID, TSH, CMP #### [facility] [address] [place] [address] Dr. Judd Andrade Albumin/Globulin [Mass ratio] 1.1 {ratio} Normal [facility] Comment on above: Performed By: #### T 7, LIPID, TSH, CMP #### [facility] [address] [place] [address] Dr. Judd Andrade ALP [Catalytic activity/Vol] 78 U/L Normal 46-116 [facility] Comment on above: Performed By: #### T 7, LIPID, TSH, CMP #### [facility] [address] [place] [address] Dr. Judd Andrade ALT [Catalytic activity/Vol] 29 U/L Normal 14-59 [facility] Comment on above: Performed By: #### T 7, LIPID, TSH, CMP #### [facility] [address] [place] [address] Dr. Judd Andrade Anion gap [Moles/Vol] 5.6 mmol/L Normal [facility] Comment on above: Performed By: #### T 7, LIPID, TSH, CMP #### [facility] [address] [place] [address] Dr. Judd Andrade AST [Catalytic activity/Vol] 23 U/L Normal 15-37 [facility] Comment on above: Performed By: #### T 7, LIPID, TSH, CMP #### [facility] [address] [place] [address] Dr. Judd Andrade Bilirubin [Mass/Vol] 0.5 mg/dL Normal 0.2-1.0 [facility] Comment on above: Performed By: #### T 7, LIPID, TSH, CMP #### [facility] [address] [place] [address] Dr. Judd Andrade Calcium [Mass/Vol] 8.9 mg/dL Normal 8.5-10.1 [facility] Comment on above: Performed By: #### T 7, LIPID, TSH, CMP #### [facility] [address] [place] [address] Dr. Judd Andrade Chloride [Moles/Vol] 105 mmol/L Normal 98-107 [facility] Comment on above: Performed By: #### T 7, LIPID, TSH, CMP #### [facility] [address] [place] [address] Dr. Judd Andrade CO2 [Moles/Vol] 32.0 mmol/L Normal 21.0-32.0 [facility] Comment on above: Performed By: #### T 7, LIPID, TSH, CMP #### [facility] [address] [place] [address] Dr. Judd Andrade Creatinine [Mass/Vol] 0.52 mg/dL Critically low 0.55-1.02 [facility] Comment on above: Performed By: #### T 7, LIPID, TSH, CMP #### [facility] [address] [place] [address] Dr. Judd Andrade EGFR-AF BRUNEIAN >60 Normal >=60 [facility] Comment on above: Performed By: #### T 7, LIPID, TSH, CMP #### [facility] [address] [place] [address] Dr. Judd Andrade EGFR-NON AF BRUNEIAN >60 Normal >=60 [facility] Comment on above: Performed By: #### T 7, LIPID, TSH, CMP #### [facility] [address] [address] [address] Judd Andrade Globulin (S) [Mass/Vol] 3.6 g/dL Normal [facility] Comment on above: Performed By: #### T 7, LIPID, TSH, CMP #### [facility] [address] [place] [address] Dr. Judd Andrade Glucose [Mass/Vol] 89 mg/dL Normal 74-106 [facility] Comment on above: Performed By: #### T 7, LIPID, TSH, CMP #### [facility] [address] [address] [address] Judd Andrade Potassium [Moles/Vol] 4.2 mmol/L Normal 3.5-5.1 [facility] Comment on above: Performed By: #### T 7, LIPID, TSH, CMP #### [facility] [address] [place] [address] Dr. Judd Andrade Protein [Mass/Vol] 7.6 g/dL Normal 6.4-8.2 [facility] Comment on above: Performed By: #### T 7, LIPID, TSH, CMP #### [facility] [address] [place] [address] Dr. Judd Andrade Sodium [Moles/Vol] 139 mmol/L Normal 136-145 [facility] Comment on above: Performed By: #### T 7, LIPID, TSH, CMP #### [facility] [address] [place] [address] Dr. Judd Andrade Urea nitrogen [Mass/Vol] 11.0 mg/dL Normal 7.0-18.0 [facility] Comment on above: Performed By: #### T 7, LIPID, TSH, CMP #### [facility] [address] [place] [address] Dr. Judd Andrade Urea nitrogen/Creatinine [Mass ratio] 21.2 mg/mg Normal [facility] Comment on above: Performed By: #### T 7, LIPID, TSH, CMP #### [facility] [address] [place] [address] Dr. Judd Andrade TSHon 07-03-2022 TSH 1.037 uIU/mL Normal 0.358-3.740 [facility] Comment on above: Performed By: #### T 7, LIPID, TSH, CMP #### [facility] [address] [place] [address] Dr. Judd Andrade VITAMIN D 25 OHon 07-03-2022 VIT D 25-OH 32.8 ng/mL Normal [facility] Comment on above: Performed By: #### V ITAD, IRON #### [facility] [address] [place] [address] Dr. Judd Andrade VIT D RANGES SEE BELOW Normal [facility] Comment on above: Result Comment: <20 ng/mL Vit D deficient 20 - <30 ng/mL Vit D insufficient 30 - 100 ng/mL Vit D sufficient >100 ng/mL Potential Toxicity Performed By: #### V ITAD, IRON #### [facility] [address] [place] [address] Dr. Judd Andrade BORDETELLA PERTUSSIS AB IGGo n 06-30-2022 B pertussis IgG Ab 3.88 index Invalid Interpretation Code 0.00-0.94 [facility] Comment on above: Result Comment: Clie nt Requested Flag Negative <0.95 Equivocal 0.95 - 1.04 Positive >1.04 Performed By: #### C BC #### [facility] [address] [place] [address] Dr. Judd Andrade BORDETELLA PERTUSSIS AB IGMo n 06-30-2022 B pertussis IgM Ab <1.0 Normal 0.0-0.9 [facility] Comment on above: Result Comment: Nega tive <1.0 Borderline 1.0 - 1.1 Positive >1.1 Performed By: #### Sara BOYD, CMP #### [facility] [address] [place] [address] Dr. Judd Andrade [id number] 2022 [id number], Serum 158 mg/dL Normal 101-187 [facility] Comment on above: Performed By: #### C BC #### [facility] [address] [place] [address] Dr. Judd Andrade CBC AUTO DIFFon 06-03-2022 BASO # 0.0 103/ul Normal 0.0-0.1 [facility] Comment on above: Performed By: #### H DEB, CMP #### [facility] [address] [place] [address] Dr. Judd Andrade Basophils/100 WBC (Bld) 0.6 % Normal 0.2-2.0 [facility] Comment on above: Performed By: #### H DEB, CMP #### [facility] [address] [place] [address] Dr. Judd Andrade EO # 0.0 103/ul Normal 0.0-0.7 [facility] Comment on above: Performed By: #### H STROPN, CMP #### [facility] [address] [place] [address] Dr. Judd Andrade Eosinophils/100 WBC (Bld) 0.6 % Critically low 0.9-7.0 [facility] Comment on above: Performed By: #### H STROPN, CMP #### [facility] [address] [place] [address] Dr. Judd Andrade Erythrocyte distribution width (RBC) [Ratio] 13.5 % Normal 11.0-15.0 [facility] Comment on above: Performed By: #### H STROPN, CMP #### [facility] [address] [place] [address] Dr. Judd Andrade Hematocrit (Bld) [Volume fraction] 42.4 % Normal 36.0-48.0 [facility] Comment on above: Performed By: #### H STROPN, CMP #### [facility] [address] [place] [address] Dr. Judd Andrade Hemoglobin (Bld) [Mass/Vol] 13.4 g/dL Normal 12.0-16.0 [facility] Comment on above: Performed By: #### H STROPN, CMP #### [facility] [address] [place] [address] Dr. Judd Andrade IG # 0.01 10e3/ul Normal 0.00-0.03 [facility] Comment on above: Performed By: #### H STROPN, CMP #### [facility] [address] [place] [address] Dr. Judd Andrade IG % 0.2 % Normal 0.0-0.5 [facility] Comment on above: Performed By: #### H STROPN, CMP #### [facility] [address] [place] [address] Dr. Judd Andrade LYMPH # 1.1 103/ul Critically low 1.2-3.[address] [facility] Comment on above: Performed By: #### H STROPN, CMP #### [facility] [address] [address] [address] Judd Andrade Lymphocytes/100 WBC (Bld) 23.5 % Normal 20.5-60.0 [facility] Comment on above: Performed By: #### H STROPN, CMP #### [facility] [address] [address] [address] Judd Andrade MANUAL DIFF REQ NO Normal [facility] Comment on above: Performed By: #### H STROPN, CMP #### [facility] [address] [address] [address] Judd Andrade MCH (RBC) [Entitic mass] 28.9 pg Normal 26.7-34.0 [facility] Comment on above: Performed By: #### H STROPN, CMP #### [facility] [address] [place] [address] Dr. Judd Andrade MCHC (RBC) [Mass/Vol] 31.6 g/dL Normal 29.9-35.2 [facility] Comment on above: Performed By: #### H STROPN, CMP #### [facility] [address] [address] [address] Judd Andrade MCV (RBC) [Entitic vol] 91.6 fL Normal 81.0-99.0 [facility] Comment on above: Performed By: #### H STROPN, CMP #### [facility] [address] [address] [address] Judd Andrade MONO # 0.8 103/ul Normal 0.3-0.8 [facility] Comment on above: Performed By: #### H STROPN, CMP #### [facility] [address] [address] [address] Judd Andrade Monocytes/100 WBC (Bld) 16.5 % Critically high 1.7-12.0 [facility] Comment on above: Performed By: #### H STROPN, CMP #### [facility] [address] [place] [address] Dr. Judd Andrade NEUT # 2.7 103/ul Normal 1.4-6.5 [facility] Comment on above: Performed By: #### H STROPN, CMP #### [facility] [address] [place] [address] Dr. Judd Andrade Neutrophils/100 WBC (Bld) 58.6 % Normal 43.0-75.0 [facility] Comment on above: Performed By: #### H STROPN, CMP #### [facility] [address] [place] [address] Dr. Judd Andrade Platelet mean volume (Bld) [Entitic vol] 9.8 fL Normal 9.5-13.5 [facility] Comment on above: Performed By: #### H TERAPN, CMP #### [facility] [address] [place] [address] Dr. Judd Andrade PLT 252 103/ul Normal 150-450 [facility] Comment on above: Performed By: #### H TERAPN, CMP #### [facility] [address] [place] [address] Dr. Judd Andrade RBC 4.63 106/ul Normal 4.20-5.40 [facility] Comment on above: Performed By: #### H TERAPN, CMP #### [facility] [address] [place] [address] Dr. Judd Andrade WBC 4.7 103/ul Normal 4.0-11.0 [facility] Comment on above: Performed By: #### H TERAPN, CMP #### [facility] [address] [place] [address] Dr. Judd Andrade PROF 14(COMP METB)on 023 Albumin [Mass/Vol] 4.0 g/dL Normal 3.4-5.0 [facility] Comment on above: Performed By: #### H STROPN, CMP #### [facility] [address] [place] [address] Dr. Judd Andrade Albumin/Globulin [Mass ratio] 1.0 {ratio} Normal [facility] Comment on above: Performed By: #### H STROPN, CMP #### [facility] [address] [place] [address] Dr. Judd Andrade ALP [Catalytic activity/Vol] 77 U/L Normal 46-116 [facility] Comment on above: Performed By: #### H DEB, CMP #### [facility] [address] [address] [address] Judd Andrade ALT [Catalytic activity/Vol] 33 U/L Normal 14-59 [facility] Comment on above: Performed By: #### H DEB, CMP #### [facility] [address] [address] [address] Judd Andrade Anion gap [Moles/Vol] 8.0 mmol/L Normal [facility] Comment on above: Performed By: #### H DEB, CMP #### [facility] [address] [place] [address] Dr. Judd Andrade AST [Catalytic activity/Vol] 28 U/L Normal 15-37 [facility] Comment on above: Performed By: #### H DEB, CMP #### [facility] [address] [place] [address] Dr. Judd Andrade Bilirubin [Mass/Vol] 0.6 mg/dL Normal 0.2-1.0 [facility] Comment on above: Performed By: #### H DEB, CMP #### [facility] [address] [place] [address] Dr. Judd Andrade Calcium [Mass/Vol] 9.3 mg/dL Normal 8.5-10.1 [facility] Comment on above: Performed By: #### H DEB, CMP #### [facility] [address] [place] [address] Dr. Judd Andrade Chloride [Moles/Vol] 103 mmol/L Normal 98-107 [facility] Comment on above: Performed By: #### H DEB, CMP #### [facility] [address] [place] [address] Dr. Judd Andrade CO2 [Moles/Vol] 33.6 mmol/L Critically high 21.0-32.0 [facility] Comment on above: Performed By: #### H DEB, CMP #### [facility] [address] [address] [address] Judd Andrade Creatinine [Mass/Vol] 0.59 mg/dL Normal 0.55-1.02 [facility] Comment on above: Performed By: #### H DEB, CMP #### [facility] [address] [address] [address] Judd Andrade EGFR-AF BRUNEIAN >60 Normal >=60 [facility] Comment on above: Performed By: #### H TERAPN, CMP #### [facility] [address] [address] [address] Judd Andrade EGFR-NON AF BRUNEIAN >60 Normal >=60 [facility] Comment on above: Performed By: #### H TERAPN, CMP #### [facility] [address] [address] [address] Judd Andrade Globulin (S) [Mass/Vol] 4.0 g/dL Normal [facility] Comment on above: Performed By: #### H DEB, CMP #### [facility] [address] [address] [address] Judd Andrade Glucose [Mass/Vol] 130 mg/dL Critically high 74-106 [facility] Comment on above: Performed By: #### H DEB, CMP #### [facility] [address] [address] [address] Judd Andrade Potassium [Moles/Vol] 3.6 mmol/L Normal 3.5-5.1 [facility] Comment on above: Performed By: #### H TERAPN, CMP #### [facility] [address] [place] [address] Dr. Judd Andrade Protein [Mass/Vol] 8.0 g/dL Normal 6.4-8.2 [facility] Comment on above: Performed By: #### H TERAPN, CMP #### [facility] [address] [address] [address] Judd Andrade Sodium [Moles/Vol] 141 mmol/L Normal 136-145 [facility] Comment on above: Performed By: #### H TERAPN, CMP #### [facility] [address] [address] [address] Judd Andrade Urea nitrogen [Mass/Vol] 8.0 mg/dL Normal 7.0-18.0 [facility] Comment on above: Performed By: #### H DEB, CMP #### [facility] [address] [address] [address] Judd Andrade Urea nitrogen/Creatinine [Mass ratio] 13.6 mg/mg Normal [facility] Comment on above: Performed By: #### H DEB, CMP #### [facility] [address] [address] [address] Judd Andrade TROPONIN, HIGH SENSITIVITYon 06-03-2022 HSTROP <4.0 Normal 4.0-51.3 [facility] Comment on above: Result Comment: CUT- OFF POINTS HAVE BEEN ESTABLISHED BASED ON THE FOURTH UNIVERSAL DEFINITIONS OF MYOCARDIAL INFARCTION. THE UPPER REFERENCE LIMIT (URL) OF TROPONIN, DEFINED THE 99TH PERCENTILE OF cTnI DISTRIBUTION IN A REFERENCE POPULATION, HAS BEEN CONFIRMED THE DECISION THRESHOLD FOR [place] DIAGNOSIS. Performed By: #### H DEB, CMP #### [facility] [address] [place] [address] Dr. Judd Andrade XR CHEST 2 Von [...] LINDA RHODES Date: 2022-06-03 12:15 Normal [facility] Covid-19 PCR (CVDTBH)on SARS-CoV-2 (COVID-19) RNA JOLLY+probe Ql (Unsp spec) Not detected Normal NOT DETECTED [facility] Comment on above: Result Comment: This test is not yet approved or cleared by the [place] FDA. When there are no FDA-approved or cleared tests available, and other criteria are met, FDA can make tests available under an emergency access mechanism called an Emergency Use Authorization (EUA). The EUA for this test is supported by the [place] of Health and Human Service's (HHS's) declaration [...] Performed By: #### H DEB, CMP #### [facility] [address] [place] [address] Dr. Judd Andrade INFLUENZA A AND B [facility] 06-02 [facility] SEE BELOW Normal [facility] Comment on above: Result Comment: Nega tive for Flu A protein angiten. Infection due to Flu A cannot be ruled out. Flu A angiten in the sample may be below the detection limit of the test. Performed By: #### H DEB, CMP #### [facility] [address] [place] [address] Dr. Judd Andrade [facility] SEE BELOW Normal [facility] Comment on above: Result Comment: Nega tive for Flu B protein antigen. Infection due to Flu B cannot be ruled out. Flu B antigen in the sample may be below the detection limit of the test. Performed By: #### H DEB, CMP #### [facility] [address] [place] [address] Dr. Judd Andrade INFLUENZA A AG Negative Normal NEGATIVE SEE COMMENT [facility] Comment on above: Performed By: #### H DEB, CMP #### [facility] [address] [place] [address] Dr. Judd Andrade INFLUENZA B AG Negative Normal NEGATIVE SEE COMMENT [facility] Comment on above: Performed By: #### H DEB, CMP #### [facility] [address] [place] [address] Dr. [address] US ST HEAD_NECKon 02-11-2022 [...] STRONG Date: 2022-02-11 16:24 Normal [facility] MG MAMM SCREEN 3D SUSANA CADon 02-10-2022 MG MAMM SCREEN 3D SUSANA CAD Patient: YULIA CASTANO Exam Date: 02/10/2022 : 1965 Gender:F Ordering : DR JOHN WHITE . Admission #: [id number] Family : Order #: [id number] CLICK HERE TO VIEW EXAM RADIOLOGY REPORT [...] breast cancer at age 40. LOCATION: [facility] BREAST COMPOSITION: Almost entirely fatty. FINDINGS: [...] Strong M.D. on 02/11/2022 at 14:20 Normal [facility] XR CHEST 1 Von 01-15-2022 XR CHEST [...] KAREN VALDEZ Date: 2022-01-15 18:39 Normal [facility] CBC AUTO DIFFon 12-30-2021 BASO # 0.0 103/ul Normal 0.0-0.1 [facility] Comment on above: Performed By: #### C BC #### [facility] [address] [place] [address] Dr. Judd Andrade Basophils/100 WBC (Bld) 0.6 % Normal 0.2-2.0 [facility] Comment on above: Performed By: #### C BC #### [facility] [address] [place] [address] Dr. Judd Andrade EO # 0.1 103/ul Normal 0.0-0.7 [facility] Comment on above: Performed By: #### C BC #### [facility] [address] [place] [address] Dr. Judd Andrade Eosinophils/100 WBC (Bld) 2.1 % Normal 0.9-7.0 [facility] Comment on above: Performed By: #### C BC #### [facility] [address] [place] [address] Dr. Judd Andrade Erythrocyte distribution width (RBC) [Ratio] 13.0 % Normal 11.0-15.0 [facility] Comment on above: Performed By: #### C BC #### [facility] [address] [place] [address] Dr. Judd Andrade Hematocrit (Bld) [Volume fraction] 41.9 % Normal 36.0-48.0 [facility] Comment on above: Performed By: #### C BC #### [facility] [address] [place] [address] Dr. Judd Andrade Hemoglobin (Bld) [Mass/Vol] 13.7 g/dL Normal 12.0-16.0 [facility] Comment on above: Performed By: #### C BC #### [facility] [address] [place] [address] Dr. Judd Andrade IG # 0.03 10e3/ul Normal 0.00-0.03 [facility] Comment on above: Performed By: #### C BC #### [facility] [address] [place] [address] Dr. Judd Andrade IG % 0.6 % Critically high 0.0-0.5 [facility] Comment on above: Performed By: #### C BC #### [facility] [address] [place] [address] Dr. Judd Andrade LYMPH # 1.9 103/ul Normal 1.2-3.8 [facility] Comment on above: Performed By: #### C BC #### [facility] [address] [place] [address] Dr. Judd Andrade Lymphocytes/100 WBC (Bld) 34.5 % Normal 20.5-60.0 [facility] Comment on above: Performed By: #### C BC #### [facility] [address] [place] [address] Dr. Judd Andrade MANUAL DIFF REQ NO Normal [facility] Comment on above: Performed By: #### C BC #### [facility] [address] [place] [address] Dr. Judd Andrade MCH (RBC) [Entitic mass] 28.5 pg Normal 26.7-34.0 [facility] Comment on above: Performed By: #### C BC #### [facility] [address] [place] [address] Dr. Judd Andrade MCHC (RBC) [Mass/Vol] 32.7 g/dL Normal 29.9-35.2 [facility] Comment on above: Performed By: #### C BC #### [facility] [address] [place] [address] Dr. Judd Andrade MCV (RBC) [Entitic vol] 87.1 fL Normal 81.0-99.0 [facility] Comment on above: Performed By: #### C BC #### [facility] [address] [address] [address] Judd Andrade MONO # 0.6 103/ul Normal 0.3-0.8 [facility] Comment on above: Performed By: #### C BC #### [facility] [address] [place] [address] Dr. Judd Andrade Monocytes/100 WBC (Bld) 10.4 % Normal 1.7-12.0 [facility] Comment on above: Performed By: #### C BC #### [facility] [address] [place] [address] Dr. Judd Andrade NEUT # 2.8 103/ul Normal 1.4-6.5 [facility] Comment on above: Performed By: #### C BC #### [facility] [address] [place] [address] Dr. Judd Andrade Neutrophils/100 WBC (Bld) 51.8 % Normal 43.0-75.0 [facility] Comment on above: Performed By: #### C BC #### [facility] [address] [place] [address] Dr. Judd Andrade Platelet mean volume (Bld) [Entitic vol] 10.5 fL Normal 9.5-13.5 [facility] Comment on above: Performed By: #### C BC #### [facility] [address] [place] [address] Dr. Judd Andrade PLT 270 103/ul Normal 150-450 [facility] Comment on above: Performed By: #### C BC #### [facility] [address] [place] [address] Dr. Judd Andrade RBC 4.81 106/ul Normal 4.20-5.40 [facility] Comment on above: Performed By: #### C BC #### [facility] [address] [place] [address] Dr. Judd Andrade WBC 5.4 103/ul Normal 4.0-11.0 [facility] Comment on above: Performed By: #### C BC #### [facility] [address] [place] [address] Dr. Judd Andrade CRPon 12-30-2021 CRP [Mass/Vol] mg/L Normal <=1.[address] [facility] Comment on above: Performed By: #### C BC #### [facility] [address] [place] [address] Dr. Judd Andrade PROF 14(COMP METB)on 022 Albumin [Mass/Vol] 3.9 g/dL Normal 3.4-5.0 [facility] Comment on above: Performed By: #### C BC #### [facility] [address] [place] [address] Dr. Judd Andrade Albumin/Globulin [Mass ratio] 1.0 {ratio} Normal [facility] Comment on above: Performed By: #### C BC #### [facility] [address] [place] [address] Dr. Judd Andrade ALP [Catalytic activity/Vol] 64 U/L Normal 46-116 [facility] Comment on above: Performed By: #### C BC #### [facility] [address] [place] [address] Dr. Judd Andrade ALT [Catalytic activity/Vol] 50 U/L Normal 14-59 [facility] Comment on above: Performed By: #### C BC #### [facility] [address] [place] [address] Dr. Judd Andrade Anion gap [Moles/Vol] 11.1 mmol/L Normal [facility] Comment on above: Performed By: #### C BC #### [facility] [address] [place] [address] Dr. Judd Andrade AST [Catalytic activity/Vol] 28 U/L Normal 15-37 [facility] Comment on above: Performed By: #### C BC #### [facility] [address] [place] [address] Dr. Judd Andrade Bilirubin [Mass/Vol] 0.5 mg/dL Normal 0.2-1.0 [facility] Comment on above: Performed By: #### C BC #### [facility] [address] [address] [address] Judd Andrade Calcium [Mass/Vol] 8.9 mg/dL Normal 8.5-10.1 [facility] Comment on above: Performed By: #### C BC #### [facility] [address] [address] [address] Judd Andrade Chloride [Moles/Vol] 101 mmol/L Normal 98-107 [facility] Comment on above: Performed By: #### C BC #### [facility] [address] [place] [address] Dr. Judd Andrade CO2 [Moles/Vol] 29.4 mmol/L Normal 21.0-32.0 [facility] Comment on above: Performed By: #### C BC #### [facility] [address] [place] [address] Dr. Judd Andrade Creatinine [Mass/Vol] 0.73 mg/dL Normal 0.55-1.02 [facility] Comment on above: Performed By: #### C BC #### [facility] [address] [place] [address] Dr. Judd Andrade EGFR-AF BRUNEIAN >60 Normal >=60 [facility] Comment on above: Performed By: #### C BC #### [facility] [address] [place] [address] Dr. Judd Andrade EGFR-NON AF BRUNEIAN >60 Normal >=60 [facility] Comment on above: Performed By: #### C BC #### [facility] [address] [place] [address] Dr. Judd Andrade Globulin (S) [Mass/Vol] 3.8 g/dL Normal [facility] Comment on above: Performed By: #### C BC #### [facility] [address] [place] [address] Dr. Judd Andrade Glucose [Mass/Vol] 139 mg/dL Critically high 74-106 [facility] Comment on above: Performed By: #### C BC #### [facility] [address] [place] [address] Dr. Judd Andrade Potassium [Moles/Vol] 3.5 mmol/L Normal 3.5-5.1 [facility] Comment on above: Performed By: #### C BC #### [facility] [address] [place] [address] Dr. Judd Andrade Protein [Mass/Vol] 7.7 g/dL Normal 6.4-8.2 [facility] Comment on above: Performed By: #### C BC #### [facility] [address] [address] [address] Judd Andrade Sodium [Moles/Vol] 138 mmol/L Normal 136-145 [facility] Comment on above: Performed By: #### C BC #### [facility] [address] [place] [address] Dr. Judd Andrade Urea nitrogen [Mass/Vol] 12.0 mg/dL Normal 7.0-18.0 [facility] Comment on above: Performed By: #### C BC #### [facility] [address] [place] [address] Dr. Judd Andrade Urea nitrogen/Creatinine [Mass ratio] 16.4 mg/mg Normal [facility] Comment on above: Performed By: #### C BC #### [facility] [address] [place] [address] Dr. Judd Andrade XR CHEST 2 Von [...] ARTEMIO DIXON Date: 2021-12-29 20:49 Normal [facility] TRYPTASEon 12-27-2021 Tryptase 4.5 ug/L Normal 2.2-13.2 [facility] Comment on above: Performed By: #### C BC #### [facility] [address] [place] [address] Dr. Judd Andrade CBC AUTO DIFFon 12-23-2021 BASO # 0.0 103/ul Normal 0.0-0.1 [facility] Comment on above: Performed By: #### H STROPN, CMP #### [facility] [address] [place] [address] Dr. Judd Andrade Basophils/100 WBC (Bld) 0.7 % Normal 0.2-2.0 [facility] Comment on above: Performed By: #### H STROPN, CMP #### [facility] [address] [place] [address] Dr. Judd Andrade EO # 0.0 103/ul Normal 0.0-0.7 [facility] Comment on above: Performed By: #### H STROPN, CMP #### [facility] [address] [place] [address] Dr. Judd Andrade Eosinophils/100 WBC (Bld) 0.0 % Critically low 0.9-7.0 [facility] Comment on above: Performed By: #### H STROPN, CMP #### [facility] [address] [place] [address] Dr. Judd Andrade Erythrocyte distribution width (RBC) [Ratio] 13.2 % Normal 11.0-15.0 [facility] Comment on above: Performed By: #### H STROPN, CMP #### [facility] [address] [place] [address] Dr. Jdud Andrade Hematocrit (Bld) [Volume fraction] 42.1 % Normal 36.0-48.0 [facility] Comment on above: Performed By: #### H STROPN, CMP #### [facility] [address] [place] [address] Dr. Judd Andrade Hemoglobin (Bld) [Mass/Vol] 13.7 g/dL Normal 12.0-16.0 [facility] Comment on above: Performed By: #### H STROPN, CMP #### [facility] [address] [place] [address] Dr. Judd Andrade IG # 0.01 10e3/ul Normal 0.00-0.03 [facility] Comment on above: Performed By: #### H STROPN, CMP #### [facility] [address] [address] [address] Judd Andrade IG % 0.3 % Normal 0.0-0.5 [facility] Comment on above: Performed By: #### H DEB, CMP #### [facility] [address] [place] [address] Dr. Judd Andrade LYMPH # 0.7 103/ul Critically low 1.2-3.8 [facility] Comment on above: Performed By: #### H STROPN, CMP #### [facility] [address] [place] [address] Dr. Judd Andrade Lymphocytes/100 WBC (Bld) 24.1 % Normal 20.5-60.0 [facility] Comment on above: Performed By: #### H DEB, CMP #### [facility] [address] [place] [address] Dr. Judd Andrade MANUAL DIFF REQ NO Normal [facility] Comment on above: Performed By: #### H DEB, CMP #### [facility] [address] [place] [address] Dr. Judd Andrade MCH (RBC) [Entitic mass] 28.4 pg Normal 26.7-34.0 [facility] Comment on above: Performed By: #### H DEB, CMP #### [facility] [address] [place] [address] Dr. Judd Andrade MCHC (RBC) [Mass/Vol] 32.5 g/dL Normal 29.9-35.2 [facility] Comment on above: Performed By: #### H STROPN, CMP #### [facility] [address] [address] [address] Judd Andrade MCV (RBC) [Entitic vol] 87.2 fL Normal 81.0-99.0 [facility] Comment on above: Performed By: #### H TERAPN, CMP #### [facility] [address] [place] [address] Dr. Judd Andrade MONO # 0.5 103/ul Normal 0.3-0.8 [facility] Comment on above: Performed By: #### H STROPN, CMP #### [facility] [address] [address] [address] Judd Andrade Monocytes/100 WBC (Bld) 16.9 % Critically high 1.7-12.0 [facility] Comment on above: Performed By: #### H STROPN, CMP #### [facility] [address] [address] [address] Judd Andrade NEUT # 1.8 103/ul Normal 1.4-6.5 [facility] Comment on above: Performed By: #### H STROPN, CMP #### [facility] [address] [address] [address] Judd Andrade Neutrophils/100 WBC (Bld) 58.0 % Normal 43.0-75.0 [facility] Comment on above: Performed By: #### H STROPN, CMP #### [facility] [address] [place] [address] Dr. Judd Andrade Platelet mean volume (Bld) [Entitic vol] 9.9 fL Normal 9.5-13.5 [facility] Comment on above: Performed By: #### H STROPN, CMP #### [facility] [address] [address] [address] Judd Andrade PLT 210 103/ul Normal 150-450 [facility] Comment on above: Performed By: #### H STROPN, CMP #### [facility] [address] [place] [address] Dr. Judd Andrade RBC 4.83 106/ul Normal 4.20-5.40 [facility] Comment on above: Performed By: #### H STROPN, CMP #### [facility] [address] [place] [address] Dr. Judd Andrade WBC 3.1 103/ul Critically low 4.0-11.0 [facility] Comment on above: Performed By: #### H STROPN, CMP #### [facility] [address] [place] [address] Dr. Judd Andrade IRONon 12-23-2021 Iron [Mass/Vol] 35.0 ug/dL Critically low 50.0-170.0 [facility] Comment on above: Performed By: #### C BC #### [facility] [address] [place] [address] Dr. Judd Andrade PROF 14(COMP METB)on 022 Albumin [Mass/Vol] 3.9 g/dL Normal 3.4-5.0 [facility] Comment on above: Performed By: #### C BC #### [facility] [address] [place] [address] Dr. Judd Andrade Albumin/Globulin [Mass ratio] 1.0 {ratio} Normal [facility] Comment on above: Performed By: #### C BC #### [facility] [address] [place] [address] Dr. Judd Andrade ALP [Catalytic activity/Vol] 70 U/L Normal 46-116 [facility] Comment on above: Performed By: #### C BC #### [facility] [address] [place] [address] Dr. Judd Andrade ALT [Catalytic activity/Vol] 43 U/L Normal 14-59 [facility] Comment on above: Performed By: #### C BC #### [facility] [address] [place] [address] Dr. Judd Andrade Anion gap [Moles/Vol] 11.5 mmol/L Normal [facility] Comment on above: Performed By: #### C BC #### [facility] [address] [place] [address] Dr. Judd Andrade AST [Catalytic activity/Vol] 33 U/L Normal 15-37 [facility] Comment on above: Performed By: #### C BC #### [facility] [address] [place] [address] Dr. Judd Andrade Bilirubin [Mass/Vol] 0.3 mg/dL Normal 0.2-1.0 [facility] Comment on above: Performed By: #### C BC #### [facility] [address] [place] [address] Dr. Judd Andrade Calcium [Mass/Vol] 8.9 mg/dL Normal 8.5-10.1 [facility] Comment on above: Performed By: #### C BC #### [facility] [address] [address] [address] Judd Andrade Chloride [Moles/Vol] 101 mmol/L Normal 98-107 [facility] Comment on above: Performed By: #### C BC #### [facility] [address] [address] [address] Judd Andrade CO2 [Moles/Vol] 31.1 mmol/L Normal 21.0-32.0 [facility] Comment on above: Performed By: #### C BC #### [facility] [address] [address] [address] Judd Andrade Creatinine [Mass/Vol] 0.69 mg/dL Normal 0.55-1.02 [facility] Comment on above: Performed By: #### C BC #### [facility] [address] [place] [address] Dr. Judd Andrade EGFR-AF BRUNEIAN >60 Normal >=60 [facility] Comment on above: Performed By: #### C BC #### [facility] [address] [address] [address] Judd Andrade EGFR-NON AF BRUNEIAN >60 Normal >=60 [facility] Comment on above: Performed By: #### C BC #### [facility] [address] [address] [address] Judd Andrade Globulin (S) [Mass/Vol] 3.8 g/dL Normal [facility] Comment on above: Performed By: #### C BC #### [facility] [address] [place] [address] Dr. Judd Andrade Glucose [Mass/Vol] 103 mg/dL Normal 74-106 [facility] Comment on above: Performed By: #### C BC #### [facility] [address] [address] [address] Judd Andrade Potassium [Moles/Vol] 3.6 mmol/L Normal 3.5-5.1 [facility] Comment on above: Performed By: #### C BC #### [facility] [address] [address] [address] Judd Andrade Protein [Mass/Vol] 7.7 g/dL Normal 6.4-8.2 [facility] Comment on above: Performed By: #### C BC #### [facility] [address] [address] [address] Judd Andrade Sodium [Moles/Vol] 140 mmol/L Normal 136-145 [facility] Comment on above: Performed By: #### C BC #### [facility] [address] [address] [address] Judd Andrade Urea nitrogen [Mass/Vol] 11.0 mg/dL Normal 7.0-18.0 [facility] Comment on above: Performed By: #### C BC #### [facility] [address] [place] [address] Dr. Judd Andrade Urea nitrogen/Creatinine [Mass ratio] 15.9 mg/mg Normal [facility] Comment on above: Performed By: #### C BC #### [facility] [address] [place] [address] Dr. Judd Andrade PROTIMEon 12-23-2021 INR Coag (PPP) [Relative time] 1.04 {INR} Normal [facility] Comment on above: Performed By: #### H DEB, CMP #### [facility] [address] [place] [address] Dr. Judd Andrade INR GUIDELINES SEE BELOW Normal [facility] Comment on above: Result Comment: PRIETO RED INR: 2.0 - 3.0 CONDITIONS NOT LISTED BELOW 2.5 - 3.5 FOR PROSTHETIC HEART VALVE REPLACEMENT 2.5 - 3.5 RECURRENT THROMBOSIS Performed By: #### H DEB, CMP #### [facility] [address] [place] [address] Dr. Judd Andrade PT Coag (PPP) [Time] 11.2 s Normal 9.0-11.6 [facility] Comment on above: Performed By: #### H DEB, CMP #### [facility] [address] [place] [address] Dr. Judd Andrade PTTon 12-23-2021 aPTT Coag (Bld) [Time] 31.5 s Normal 22.3-36.2 [facility] Comment on above: Performed By: #### H STROPN, CMP #### [facility] [address] [place] [address] Dr. Judd ELENA URINE PROFILEon 2 Bilirubin Ql (U) Negative Normal NEGATIVE [facility] Comment on above: Performed By: #### H STROPN, CMP #### [facility] [address] [address] [address] Judd Andrade Clarity (U) CLEAR Normal CLEAR [facility] Comment on above: Performed By: #### H STROPN, CMP #### [facility] [address] [place] [address] Dr. Judd Andrade Color (U) LT. YELLOW Normal YELLOW [facility] Comment on above: Performed By: #### H STROPN, CMP #### [facility] [address] [place] [address] Dr. Judd Andrade ERUAHRomina A micrscopic examination will be performed if indicated. Normal [facility] Comment on above: Performed By: #### H STROPN, CMP #### [facility] [address] [place] [address] Dr. Judd Andrade Glucose Ql (U) Negative Normal NEGATIVE [facility] Comment on above: Performed By: #### H STROPN, CMP #### [facility] [address] [place] [address] Dr. Judd Andrade Hemoglobin Ql (U) TRACE-INTACT Abnormal NEGATIVE [facility] [place] Comment on above: Performed By: #### H STROPN, CMP #### [facility] [address] [place] [address] Dr. Judd Andrade Ketones Ql (U) Negative Normal NEGATIVE [facility] Comment on above: Performed By: #### H STROPN, CMP #### [facility] [address] [place] [address] Dr. Judd Andrade LEUKOCYTES Negative Normal NEGATIVE [facility] Comment on above: Performed By: #### H STROPN, CMP #### [facility] [address] [place] [address] Dr. Judd Andrade Nitrite Ql (U) Negative Normal NEGATIVE [facility] Comment on above: Performed By: #### H DEB, CMP #### [facility] [address] [place] [address] Dr. Judd Andrade pH (U) 6.0 [pH] Normal 5-9 [facility] Comment on above: Performed By: #### H TERAPN, CMP #### [facility] [address] [place] [address] Dr. Judd Andrade SPEC GRAVITY 1.005 Normal 1.005-<=1.025 [facility] Comment on above: Performed By: #### H DEB, CMP #### [facility] [address] [place] [address] Dr. Judd Andrade UA PROTEIN Negative Normal NEGATIVE/ TRACE [facility] Comment on above: Performed By: #### H DEB, CMP #### [facility] [address] [place] [address] Dr. Judd Andrade UR MICRO IND INDICATED Normal [facility] Comment on above: Performed By: #### H DEB, CMP #### [facility] [address] [place] [address] Dr. Judd Andrade Urobilinogen Qn (U) 0.2 {Carol'U}/dL Normal 0.2 - 1. 0 [facility] Comment on above: Performed By: #### H DEB, CMP #### [facility] [address] [place] [address] Dr. Judd Andrade URINE MICROSCOPIC ONLYon BACTERIA NONE SEEN Normal NONE SEEN [facility] Comment on above: Performed By: #### H DEB, CMP #### [facility] [address] [place] [address] Dr. Judd Andrade Bacteria identified Cx Nom (U) NOT INDICATED Normal [facility] Comment on above: Performed By: #### H DEB, CMP #### [facility] [address] [place] [address] Dr. Judd Andrade CAST NONE SEEN Normal NONE SEEN [facility] Comment on above: Performed By: #### H STROPN, CMP #### [facility] [address] [address] [address] Judd Andrade Crystals LM Nom (Urine sed) NONE SEEN Normal NONE SEEN [facility] Comment on above: Performed By: #### H STROPN, CMP #### [facility] [address] [address] [address] Judd Andrade Epithelial cells LM Ql (Urine sed) FEW Abnormal NONE SEEN /RARE [facility] Comment on above: Performed By: #### H STROPN, CMP #### [facility] [address] [address] [address] Judd Andrade MUCOUS NONE SEEN Normal NONE SEEN [facility] Comment on above: Performed By: #### H STROPN, CMP #### [facility] [address] [address] [address] Judd Andrade RBC 0-2 Normal 0-2 [facility] Comment on above: Performed By: #### H STROPN, CMP #### [facility] [address] [address] [address] Judd Andrade WBC NONE SEEN Normal NONE SEEN [facility] Comment on above: Performed By: #### H STROPN, CMP #### [facility] [address] [address] [address] Judd Andrade Encounters Encounter Date Encounter Type Care Provider Facility Start: 06-30-2023 End: 06-30-2023 ambulatory KATIE SOW Not Available Start: 06-24-2023 End: 06-24-2023 ambulatory VALE HI Not Available Start: 03-23-2023 End: 03-23-2023 ambulatory KATIE SOW Not Available Start: 09-24-[address] JOHN WHITE . Facili ty:[facility] Start: 09-22-2022 End: 09-23-[address] KATIE SOW . Facility:[facility] Start: 08-29-2022 End: 08-30-[address] OJHN WHITE . Facility:[facility] Start: 08-11-2022 End: 08-12-[address] JOHN WHITE . Facility:[facility] Start: 07-28-2022 End: 07-29-[address] KATIE SOW . Facility:[facility] Start: 07-03-2022 End: 07-04-[address] JOHN WHITE . Facility:[facility] Start: 06-29-2022 Encounter for antibo dy response examination DR JOHN WHITE . [facility] Start: 06-26-2022 End: 06-27-[address] [...] Start: 12-04-[address] [facility] Payers Date Payer Category Payer Unknown [id number] 2.16.84 0.1.733771.3.579.2.593 1965 Unknown [id number] 2.16.84 0.1.632949.3.579.2.593 1965 Unknown [id number] 2.16.84 0.1.253471.3.579.2.593 1965 Unknown [id number] 2.16.84 0.1.059759.3.579.2.593 1965 Unknown [id number] 2.16.84 0.1.892067.3.579.2.593 1965 Unknown [id number] 2.16.84 0.1.412460.3.579.2.593 1965 Unknown [id number] 2.16.84 0.1.569131.3.579.2.593 1965 Unknown [id number] 2.16.84 0.1.183259.3.579.2.593 1965 Unknown [id number] 2.16.84 0.1.604198.3.579.2.593 1965 Unknown [id number] 2.16.84 0.1.442845.3.579.2.593 1965 Unknown [id number] 2.16.84 0.1.274705.3.579.2.593 1965 Unknown [id number] 2.16.84 0.1.401368.3.579.2.593 1965 Unknown [id number] 2.16.84 0.1.597359.3.579.2.593 1965 Unknown [id number] 2.16.84 0.1.887913.3.579.2.593 1965 Unknown [id number] 2.16.84 0.1.555668.3.579.2.593 1965 Unknown [id number] 2.16.84 0.1.586415.3.579.2.593 1965 Unknown [id number] 2.16.84 0.1.245769.3.579.2.593 1965 Unknown [id number] 2.16.84 0.1.394910.3.579.2.593 1965 Unknown [id number] 2.16.84 0.1.502087.3.579.2.593 1965 Unknown [id number] 2.16.84 0.1.316544.3.579.2.593 1965 Unknown [id number] 2.16.84 0.1.047165.3.579.2.593 1965 Unknown [id number] 2.16.84 0.1.618588.3.579.2.593 1965 Unknown [id number] 2.16.84 0.1.149444.3.579.2.593 1965 Unknown [id number] 2.16.84 0.1.268145.3.579.2.593 1965 Unknown [id number] 2.16.84 0.1.362191.3.579.2.1259 1965 Unknown [id number] 2.16.84 0.1.924242.3.579.2.1259 1965 Unknown [id number] 2.16.840 .1.165669.3.579.2.1259 1959 Self-pay [id number] 1959 Unknown [id number] 1959 Unknown [id number] Summary Purpose Family History No Family History Records FoundNo Family History Records Found Advance Directives No Advanced Directives Records FoundNo Advanced Directives Records Found Additional Source Comments INFORMATION SOURCE (unrecogn ized section and content) DATE CREATED AUTHOR 10/02/2022 [facility] DATE CREATED AUTHOR MARGARET DUMONT 07/01/2023 [facility] EPIC FOR RECORDS PERTAINING TO PATIENTS [...] BE BASED ON THE PRIMARY CLINICAL RECORDS. [facility]. provides no warranty or guarantee of the accuracy or completeness of information in this document.
== END 2023-11-23 07:37 | disposition home or self-care (01) ==
LOC: US 07:36
PROVIDERS: PCP Family Medicine; Visit Provider Family Medicine
DX: R10.9 Unspecified abdominal pain (principal); N20.0 Calculus of kidney
CPT/HCPCS: 76775

== ENCOUNTER 2023-11-25 13:23 | Outpatient (OUT) | payer OTHER, SELFPAY ==
[2023-11-25 16:25] LABS: Alanine Aminotransferase 22 U/L (14-59); Albumin Globulin Ratio 1.1; Albumin Level 3.9 g/dL (3.4-5.0); Alkaline Phosphatase 69 U/L (46-116); Anion Gap 12.5; Aspartate Amino Transferase 21 U/L (15-37); BUN Creatinine Ratio 17.9; Bilirubin Total 0.5 mg/dL (0.2-1.0); Carbon Dioxide 28.5 mmol/L (21.0-32.0); Chloride 102 mmol/L (98-107); Estimated GFR (African America >60 (>=60); Estimated GFR (Non-African Ame >60 (>=60); Globulin 3.4 g/dL; Glucose 96 mg/dL (74-106); Sodium 139 mmol/L (136-145); Total Protein 7.3 g/dL (6.4-8.2)
== END 2023-11-25 13:24 | disposition home or self-care (01) ==
LOC: LAB 13:25
PROVIDERS: PCP Family Medicine; Visit Provider Family Medicine
DX: N20.0 Calculus of kidney (principal)
CPT/HCPCS: 36415; 80053

== ENCOUNTER 2023-12-07 07:49 | Outpatient (OUT) | payer OTHER, SELFPAY ==
--- NOTE | 2023-12-07 07:51 | US_ITS ---
[address] [address] Patient Name: YULIA CASTANO MRN: [id number] date: 1965 Sex: F Assigned Patient Location: Current Patient Location: Accession/Order Number: [id number] Exam Date: 12/07/2023 07:52 Report Date: 12/08/2023 07:40 At the request of: JOHN WHITE Procedure: US renal bladder EXAMINATION: US renal bladder HISTORY: Urinary Retention R33.9 COMPARISON: 11/23/2023 TECHNIQUE: Ultrasound examination was performed of the bladder. FINDINGS: Right Kidney: Normal in size, contour and cortical echotexture. The cortex measures 1.0 cm. No solid cortical mass, hydronephrosis or obstructing nephrolithiasis. Height: 4.83 cm Length: 11.15 cm Width: 5.64 cm Left Kidney: Normal in size, contour and cortical echotexture. The cortex measures 1.2 cm. No solid cortical mass, hydronephrosis or obstructing nephrolithiasis Height: 5.87 cm Length: 10.67 cm Width: 4.81 cm Urinary bladder wall measures 1.4 mm, normal. Prevoid volume 154 mL. Post void volume 8 mL Ureteral jets: Visualized bilaterally US/US renal bladder IMPRESSION: Minimal post void residual of 8 mL Electronically authenticated by: ELLYN ALVAREZ Date: 12/08/2023 07:40
--- OUTSIDE RECORDS SUMMARY | 2023-12-07 07:52 | XMS_ITS | CCD ---
Author Organization [facility] Care Team Providers Care Education Sales Consultant Name Role Phone ABELINOY ., DR LOPEZ [...] Unavailable JUANJOSE ., DR WILSON Attending Unavailable LISBON, DR ELLYN Dougherty Consulting Unavailable HOY ., [...] Unavailable HOY ., DR LOPEZ Admitting Unavailable JEAN, DR BRYAN Henley Admitting Unavailable [...] LOPEZ Primary Care Unavailable HOY ., DR LOPZE Admitting Unavailable LINDA RHODES Consulting Unavailable VALE HI Attending Unavailable RALF RENDON Referring Unavailable KATIE SOW Attending Unavailable KATIE SOW Attending Unavailable Bessie Gong Attending Unavailable Allergies Allergy Classification Reported Allergen(s) Allergy Type Date of Onset Reaction(s) Facility (1 source) Azithromycin Drug Allergy [address] [facility] Repository (2 sources) Imipramine Drug Allergy [address] [facility] Repository (2 sources) Sulfonamides (Antibiotic) Drug allergy (disorder) [address] [facility] Repository (2 sources) E.E.S. Drug allergy (disorder) [address] [facility] Repository (1 source) Erythromycin; Translations: [erythromycin] Drug Allergy [facility] Repository (1 source) Imipramine; Translations: [Imipramine Hydrochloride] Drug Allergy [facility] Repository (1 source) Sulfonamides (Antibiotic); Translations: [sulfa drugs] Propensity to adverse reactions (disorder) [facility] Repository Problems Active Problems Problem Classification [...] 06-05-2022 Episodic Other aftercare (4 sources) Other jail (current) drug therapy; Translations: [OTH RUBBER OFF CURRENT DRUG THERAPY] Onset: 12-23-2021 Episodic Other [...] : DR KATIE SOW . Admission #: [id number] Family : Order #: [id number] CLICK HERE TO VIEW EXAM RADIOLOGY REPORT [...] breast cancer at age 40. LOCATION: [facility] BREAST COMPOSITION: Almost entirely fatty. FINDINGS: [...] MD on 09/22/2022 at 15:[address] [facility] US BREAST RIGHT LIMITEDon US BREAST RIGHT LIMITED Patient: YULIA CASTANO Exam Date: 09/22/2022 : 1965 Gender:F Ordering : DR KATIE SOW . Admission #: [id number] Family : Order #: [id number] CLICK HERE TO VIEW EXAM RADIOLOGY REPORT [...] breast cancer at age 40. LOCATION: [facility] BREAST COMPOSITION: Almost entirely fatty. FINDINGS: [...] MD on 09/22/2022 at 15:[address] [facility] US ST HEAD_NECKon 08-31-[address] HEAD_NECK [...] GABO STRONG Date: 2022-08-31 08:[address] [facility] US PELVIS AND TRANSVAGon US PELVIS AND [...] GABO STRONG Date: 2022-07-29 06:[address] [facility] INSULINon 07-04-2022 Insulin 6.2 uIU/mL Normal 2.6-24.9 [facility] Comment on above: Performed By: #### H STROPN, CMP #### [facility] [address] [place] [address] Dr. Judd Andrade CBC AUTO DIFFon 07-03-2022 BASO # 0.0 103/ul Normal 0.0-0.1 [facility] Comment on above: Performed By: #### C BC #### [facility] [address] [place] [address] Dr. Judd Andrade Basophils/100 WBC (Bld) 1.1 % Normal 0.2-2.0 [facility] Comment on above: Performed By: #### C BC #### [facility] [address] [place] [address] Dr. Judd Andrade EO # 0.1 103/ul Normal 0.0-0.7 [facility] Comment on above: Performed By: #### C BC #### [facility] [address] [place] [address] Dr. Judd Andrade Eosinophils/100 WBC (Bld) 3.6 % Normal 0.9-7.0 [facility] Comment on above: Performed By: #### C BC #### [facility] [address] [place] [address] Dr. Judd Andrade Erythrocyte distribution width (RBC) [Ratio] 13.6 % Normal 11.0-15.0 [facility] Comment on above: Performed By: #### C BC #### [facility] [address] [place] [address] Dr. Judd Andrade Hematocrit (Bld) [Volume fraction] 41.8 % Normal 36.0-48.0 [facility] Comment on above: Performed By: #### C BC #### [facility] [address] [place] [address] Dr. Judd Andrade Hemoglobin (Bld) [Mass/Vol] 13.5 g/dL Normal 12.0-16.0 [facility] Comment on above: Performed By: #### C BC #### [facility] [address] [place] [address] Dr. Judd Andrade IG # 0.01 10e3/ul Normal 0.00-0.03 [facility] Comment on above: Performed By: #### C BC #### [facility] [address] [place] [address] Dr. Judd Andrade IG % 0.3 % Normal 0.0-0.5 [facility] Comment on above: Performed By: #### C BC #### [facility] [address] [place] [address] Dr. Judd Andrade LYMPH # 1.4 103/ul Normal 1.2-3.8 [facility] Comment on above: Performed By: #### C BC #### [facility] [address] [place] [address] Dr. Judd Andrade Lymphocytes/100 WBC (Bld) 38.4 % Normal 20.5-60.0 [facility] Comment on above: Performed By: #### C BC #### [facility] [address] [place] [address] Dr. Judd Andrade MANUAL DIFF REQ NO Normal [facility] Comment on above: Performed By: #### C BC #### [facility] [address] [place] [address] Dr. Judd Andrade MCH (RBC) [Entitic mass] 28.2 pg Normal 26.7-34.0 [facility] Comment on above: Performed By: #### C BC #### [facility] [address] [place] [address] Dr. Judd Andrade MCHC (RBC) [Mass/Vol] 32.3 g/dL Normal 29.9-35.2 [facility] Comment on above: Performed By: #### C BC #### [facility] [address] [place] [address] Dr. Judd Andrade MCV (RBC) [Entitic vol] 87.4 fL Normal 81.0-99.0 [facility] Comment on above: Performed By: #### C BC #### [facility] [address] [place] [address] Dr. Judd Andrade MONO # 0.4 103/ul Normal 0.3-0.8 [facility] Comment on above: Performed By: #### C BC #### [facility] [address] [place] [address] Dr. Judd Andrade Monocytes/100 WBC (Bld) 10.4 % Normal 1.7-12.0 [facility] Comment on above: Performed By: #### C BC #### [facility] [address] [place] [address] Dr. Judd Andrade NEUT # 1.7 103/ul Normal 1.4-6.5 [facility] Comment on above: Performed By: #### C BC #### [facility] [address] [place] [address] Dr. Judd Andrade Neutrophils/100 WBC (Bld) 46.2 % Normal 43.0-75.0 [facility] Comment on above: Performed By: #### C BC #### [facility] [address] [place] [address] Dr. Judd Andrade Platelet mean volume (Bld) [Entitic vol] 9.6 fL Normal 9.5-13.5 [facility] Comment on above: Performed By: #### C BC #### [facility] [address] [place] [address] Dr. Judd Andrade PLT 246 103/ul Normal 150-450 [facility] Comment on above: Performed By: #### C BC #### [facility] [address] [place] [address] Dr. Judd Andrade RBC 4.78 106/ul Normal 4.20-5.[address] [facility] Comment on above: Performed By: #### C BC #### [facility] [address] [place] [address] Dr. Judd Andrade WBC 3.7 103/ul Critically low 4.0-11.0 [facility] Comment on above: Performed By: #### C BC #### [facility] [address] [place] [address] Dr. Judd Andrade FREE THYROXINE INDEX T7on FTI 3.20 Normal 1.30-4.50 [facility] Comment on above: Performed By: #### T 7, LIPID, TSH, CMP #### [facility] [address] [address] [address] Judd Andrade T3U 36.0 % Normal 30.0-39.0 [facility] Comment on above: Performed By: #### T 7, LIPID, TSH, CMP #### [facility] [address] [address] [address] Judd Andrade T4 [Mass/Vol] 8.90 ug/dL Normal 4.80-13.90 [facility] Comment on above: Performed By: #### T 7, LIPID, TSH, CMP #### [facility] [address] [address] [address] Judd Andrade GLYCOHEMOGLOBIN A1Con 2022 ADA RECOMMENDATION SEE BELOW Normal [facility] Comment on above: Result Comment: ADA RECOMMENDED LIMIT 4.0 - 6.0 ADA THERAPEUTIC TARGET < 7.0 ACTION SUGGESTED > 7.0 Performed By: #### C BC #### [facility] [address] [address] [address] Judd Andrade Glucose [Mass/Vol] 120 mg/dL Normal [facility] Comment on above: Performed By: #### C BC #### [facility] [address] [address] [address] Judd Andrade HbA1c (Bld) [Mass fraction] 5.8 % Normal 4.5-6.2 [facility] Comment on above: Performed By: #### C BC #### [facility] [address] [address] [address] Judd Andrade IRONon 07-03-2022 Iron [Mass/Vol] 67.0 ug/dL Normal 50.0-170.0 [facility] Comment on above: Performed By: #### V ITAD, IRON #### [facility] [address] [place] [address] Dr. Judd Andrade LIPID PROFILEon 07-03-2022 CHOL-HDL RATIO NORM SEE BELOW Normal [facility] Comment on above: Result Comment: 3.3 - 4.4 LOW RISK 4.4 - 7.1 AVERAGE RISK 7.1 - 11.0 MODERATE RISK >11.0 HIGH RISK Performed By: #### T 7, LIPID, TSH, CMP #### [facility] [address] [place] [address] Dr. Judd Andrade Cholesterol [Mass/Vol] 216 mg/dL Critically high <=200 [facility] Comment on above: Performed By: #### T 7, LIPID, TSH, CMP #### [facility] [address] [place] [address] Dr. Judd Andrade Cholesterol in HDL [Mass/Vol] 87 mg/dL Critically high 40-60 [facility] Comment on above: Performed By: #### T 7, LIPID, TSH, CMP #### [facility] [address] [place] [address] Dr. Judd Andrade Cholesterol in LDL [Mass/Vol] 124.2 mg/dL Normal [facility] Comment on above: Performed By: #### T 7, LIPID, TSH, CMP #### [facility] [address] [place] [address] Dr. Judd Andrade Cholesterol.total/Ch olesterol in HDL [Mass ratio] 2.5 {ratio} Normal [facility] Comment on above: Performed By: #### T 7, LIPID, TSH, CMP #### [facility] [address] [place] [address] Dr. Judd Andrade HDL NORMAL > or = 60 mg/dl - LO W CARDIOVASCULAR RISK <40 mg/dl - HIGH CARDIOVASCULAR RISK Normal [facility] Comment on above: Performed By: #### T 7, LIPID, TSH, CMP #### [facility] [address] [place] [address] Dr. Judd Andrade LDL CALC NORMAL SEE BELOW Normal [facility] Comment on above: Result Comment: <100 mg/dl OPTIMAL 100 - 129 mg/dl NEAR OR ABOVE OPTIMAL 130 - 159 mg/dl BORDERLINE HIGH 160 - 189 mg/dl HIGH >190 mg/dl VERY HIGH Performed By: #### T 7, LIPID, TSH, CMP #### [facility] [address] [place] [address] Dr. Judd Andrade Triglyceride [Mass/Vol] 24 mg/dL Normal <=150 [facility] Comment on above: Performed By: #### T 7, LIPID, TSH, CMP #### [facility] [address] [place] [address] Dr. Judd Andrade VLDL CALC 4.8 mg/dL Normal [facility] Comment on above: Performed By: #### T 7, LIPID, TSH, CMP #### [facility] [address] [place] [address] Dr. Judd Andrade PROF 14(COMP METB)on 023 Albumin [Mass/Vol] 4.0 g/dL Normal 3.4-5.0 [facility] Comment on above: Performed By: #### T 7, LIPID, TSH, CMP #### [facility] [address] [place] [address] Dr. Judd Andrade Albumin/Globulin [Mass ratio] 1.1 {ratio} Normal [facility] Comment on above: Performed By: #### T 7, LIPID, TSH, CMP #### [facility] [address] [place] [address] Dr. Judd Andrade ALP [Catalytic activity/Vol] 78 U/L Normal 46-116 [facility] Comment on above: Performed By: #### T 7, LIPID, TSH, CMP #### [facility] [address] [place] [address] Dr. Judd Andrade ALT [Catalytic activity/Vol] 29 U/L Normal 14-59 [facility] Comment on above: Performed By: #### T 7, LIPID, TSH, CMP #### [facility] [address] [place] [address] Dr. Judd Andrade Anion gap [Moles/Vol] 5.6 mmol/L Normal [facility] Comment on above: Performed By: #### T 7, LIPID, TSH, CMP #### [facility] [address] [place] [address] Dr. Judd Andrade AST [Catalytic activity/Vol] 23 U/L Normal 15-37 [facility] Comment on above: Performed By: #### T 7, LIPID, TSH, CMP #### [facility] [address] [address] [address] Judd Andrade Bilirubin [Mass/Vol] 0.5 mg/dL Normal 0.2-1.0 [facility] Comment on above: Performed By: #### T 7, LIPID, TSH, CMP #### [facility] [address] [address] [address] Judd Andrade Calcium [Mass/Vol] 8.9 mg/dL Normal 8.5-10.1 [facility] Comment on above: Performed By: #### T 7, LIPID, TSH, CMP #### [facility] [address] [address] [address] Judd Andrade Chloride [Moles/Vol] 105 mmol/L Normal 98-107 [facility] Comment on above: Performed By: #### T 7, LIPID, TSH, CMP #### [facility] [address] [place] [address] Dr. Judd Andrade CO2 [Moles/Vol] 32.0 mmol/L Normal 21.0-32.[address] [facility] Comment on above: Performed By: #### T 7, LIPID, TSH, CMP #### [facility] [address] [address] [address] Judd Andrade Creatinine [Mass/Vol] 0.52 mg/dL Critically low 0.55-1.02 [facility] Comment on above: Performed By: #### T 7, LIPID, TSH, CMP #### [facility] [address] [place] [address] Dr. Judd Andrade EGFR-AF JAPANESE >60 Normal >=60 [facility] Comment on above: Performed By: #### T 7, LIPID, TSH, CMP #### [facility] [address] [address] [address] Judd Andrade EGFR-NON AF JAPANESE >60 Normal >=60 [facility] Comment on above: Performed By: #### T 7, LIPID, TSH, CMP #### [facility] [address] [place] [address] Dr. Judd Andrade Globulin (S) [Mass/Vol] 3.6 g/dL Normal [facility] Comment on above: Performed By: #### T 7, LIPID, TSH, CMP #### [facility] [address] [address] [address] Judd Andrade Glucose [Mass/Vol] 89 mg/dL Normal 74-106 [facility] Comment on above: Performed By: #### T 7, LIPID, TSH, CMP #### [facility] [address] [address] [address] Judd Andrade Potassium [Moles/Vol] 4.2 mmol/L Normal 3.5-5.1 [facility] Comment on above: Performed By: #### T 7, LIPID, TSH, CMP #### [facility] [address] [place] [address] Dr. Judd Andrade Protein [Mass/Vol] 7.6 g/dL Normal 6.4-8.2 [facility] Comment on above: Performed By: #### T 7, LIPID, TSH, CMP #### [facility] [address] [address] [address] Judd Andrade Sodium [Moles/Vol] 139 mmol/L Normal 136-145 [facility] Comment on above: Performed By: #### T 7, LIPID, TSH, CMP #### [facility] [address] [place] [address] Dr. Judd Andrade Urea nitrogen [Mass/Vol] 11.0 mg/dL Normal 7.0-18.0 [facility] Comment on above: Performed By: #### T 7, LIPID, TSH, CMP #### [facility] [address] [place] [address] Dr. Judd Andrade Urea nitrogen/Creatinine [Mass ratio] 21.2 mg/mg Normal [facility] Comment on above: Performed By: #### T 7, LIPID, TSH, CMP #### [facility] [address] [place] [address] Dr. Judd Andrade TSHon 07-03-2022 TSH 1.037 uIU/mL Normal 0.358-3.740 [facility] Comment on above: Performed By: #### T 7, LIPID, TSH, CMP #### [facility] [address] [place] [address] Dr. Judd Andrade VITAMIN D 25 OHon 07-03-2022 VIT D 25-OH 32.8 ng/mL Normal [facility] Comment on above: Performed By: #### V CARMELO, IRON #### [facility] [address] [place] [address] Dr. Judd Andrade VIT D RANGES SEE BELOW Normal [facility] Comment on above: Result Comment: <20 ng/mL Vit D deficient 20 - <30 ng/mL Vit D insufficient 30 - 100 ng/mL Vit D sufficient >100 ng/mL Potential Toxicity Performed By: #### V CARMELO IRON #### [facility] [address] [place] [address] Dr. Judd Andrade BORDETELLA PERTUSSIS AB IGGo n 06-30-2022 B pertussis IgG Ab 3.88 index Invalid Interpretation Code 0.00-0.94 [facility] Comment on above: Result Comment: Clie nt Requested Flag Negative <0.95 Equivocal 0.95 - 1.04 Positive >1.04 Performed By: #### C BC #### [facility] [address] [place] [address] Dr. Judd Andrade BORDETELLA PERTUSSIS AB IGMo n 06-30-2022 B pertussis IgM Ab <1.0 Normal 0.0-0.9 [facility] Comment on above: Result Comment: Nega tive <1.0 Borderline 1.0 - 1.1 Positive >1.1 Performed By: #### H DEB, CMP #### [facility] [address] [place] [address] Dr. Judd Andrade [id number] 2022 Tvayw-[id number]-Bytwemovhfr, Serum 158 mg/dL Normal 101-187 [facility] Comment on above: Performed By: #### C BC #### [facility] [address] [place] [address] Dr. Judd Andrade CBC AUTO DIFFon 06-03-2022 BASO # 0.0 103/ul Normal 0.0-0.1 [facility] Comment on above: Performed By: #### H STROPN, CMP #### [facility] [address] [place] [address] Dr. Judd Andrade Basophils/100 WBC (Bld) 0.6 % Normal 0.2-2.0 [facility] Comment on above: Performed By: #### H STROPN, CMP #### [facility] [address] [place] [address] Dr. Judd Andrade EO # 0.0 103/ul Normal 0.0-0.[address] [facility] Comment on above: Performed By: #### H STROPN, CMP #### [facility] [address] [place] [address] Dr. Judd Andrade Eosinophils/100 WBC (Bld) 0.6 % Critically low 0.9-7.0 [facility] Comment on above: Performed By: #### H STROPN, CMP #### [facility] [address] [place] [address] Dr. Judd Andrade Erythrocyte distribution width (RBC) [Ratio] 13.5 % Normal 11.0-15.0 [facility] Comment on above: Performed By: #### H STROPN, CMP #### [facility] [address] [place] [address] Dr. Judd Andrade Hematocrit (Bld) [Volume fraction] 42.4 % Normal 36.0-48.0 [facility] Comment on above: Performed By: #### H STROPN, CMP #### [facility] [address] [place] [address] Dr. Judd Andrade Hemoglobin (Bld) [Mass/Vol] 13.4 g/dL Normal 12.0-16.[address] [facility] Comment on above: Performed By: #### H STROPN, CMP #### [facility] [address] [place] [address] Dr. Judd Andrade IG # 0.01 10e3/ul Normal 0.00-0.03 [facility] Comment on above: Performed By: #### H STROPN, CMP #### [facility] [address] [place] [address] Dr. Judd Andrade IG % 0.2 % Normal 0.0-0.5 [facility] Comment on above: Performed By: #### H STROPN, CMP #### [facility] [address] [place] [address] Dr. Judd Andrade LYMPH # 1.1 103/ul Critically low 1.2-3.8 [facility] [place] Comment on above: Performed By: #### H STROPN, CMP #### [facility] [address] [place] [address] Dr. Judd Andrade Lymphocytes/100 WBC (Bld) 23.5 % Normal 20.5-60.0 [facility] Comment on above: Performed By: #### H STROPN, CMP #### [facility] [address] [place] [address] Dr. Judd Andrade MANUAL DIFF REQ NO Normal [facility] Comment on above: Performed By: #### H STROPN, CMP #### [facility] [address] [place] [address] Dr. Judd Andrade MCH (RBC) [Entitic mass] 28.9 pg Normal 26.7-34.0 [facility] Comment on above: Performed By: #### H STROPN, CMP #### [facility] [address] [place] [address] Dr. Judd Andrade MCHC (RBC) [Mass/Vol] 31.6 g/dL Normal 29.9-35.2 [facility] Comment on above: Performed By: #### H STROPN, CMP #### [facility] [address] [place] [address] Dr. Judd Andrade MCV (RBC) [Entitic vol] 91.6 fL Normal 81.0-99.[address] [facility] Comment on above: Performed By: #### H STROPN, CMP #### [facility] [address] [place] [address] Dr. Judd Andrade MONO # 0.8 103/ul Normal 0.3-0.8 [facility] Comment on above: Performed By: #### H STROPN, CMP #### [facility] [address] [place] [address] Dr. Judd Andrade Monocytes/100 WBC (Bld) 16.5 % Critically high 1.7-12.0 [facility] Comment on above: Performed By: #### H DEB, CMP #### [facility] [address] [address] [address] Judd Andrade NEUT # 2.7 103/ul Normal 1.4-6.5 [facility] Comment on above: Performed By: #### H DEB, CMP #### [facility] [address] [place] [address] Dr. Judd Andrade Neutrophils/100 WBC (Bld) 58.6 % Normal 43.0-75.0 [facility] Comment on above: Performed By: #### H DEB, CMP #### [facility] [address] [place] [address] Dr. Judd Andrade Platelet mean volume (Bld) [Entitic vol] 9.8 fL Normal 9.5-13.5 [facility] Comment on above: Performed By: #### H DEB, CMP #### [facility] [address] [place] [address] Dr. Judd Andrade PLT 252 103/ul Normal 150-450 [facility] Comment on above: Performed By: #### H DEB, CMP #### [facility] [address] [place] [address] Dr. Judd Andrade RBC 4.63 106/ul Normal 4.20-5.40 [facility] Comment on above: Performed By: #### H DEB, CMP #### [facility] [address] [place] [address] Dr. Judd Andrade WBC 4.7 103/ul Normal 4.0-11.0 [facility] Comment on above: Performed By: #### H DEB, CMP #### [facility] [address] [place] [address] Dr. Judd Andrade PROF 14(COMP METB)on 023 Albumin [Mass/Vol] 4.0 g/dL Normal 3.4-5.0 [facility] Comment on above: Performed By: #### H DEB, CMP #### [facility] [address] [address] [address] Judd Andrade Albumin/Globulin [Mass ratio] 1.0 {ratio} Normal [facility] Comment on above: Performed By: #### H STROPN, CMP #### [facility] [address] [address] [address] Judd Andrade ALP [Catalytic activity/Vol] 77 U/L Normal 46-116 [facility] Comment on above: Performed By: #### H STROPN, CMP #### [facility] [address] [address] [address] Judd Andrade ALT [Catalytic activity/Vol] 33 U/L Normal 14-59 [facility] Comment on above: Performed By: #### H STROPN, CMP #### [facility] [address] [address] [address] Judd Andrade Anion gap [Moles/Vol] 8.0 mmol/L Normal [facility] Comment on above: Performed By: #### H STROPN, CMP #### [facility] [address] [address] [address] Judd Andrade AST [Catalytic activity/Vol] 28 U/L Normal 15-37 [facility] Comment on above: Performed By: #### H TERAPN, CMP #### [facility] [address] [address] [address] Judd Andrade Bilirubin [Mass/Vol] 0.6 mg/dL Normal 0.2-1.0 [facility] Comment on above: Performed By: #### H STROPN, CMP #### [facility] [facility] [address] [address] [address] Judd Andrade Calcium [Mass/Vol] 9.3 mg/dL Normal 8.5-10.1 [facility] Comment on above: Performed By: #### H STROPN, CMP #### [facility] [address] [address] [address] Judd Andrade Chloride [Moles/Vol] 103 mmol/L Normal 98-107 [facility] Comment on above: Performed By: #### H TERAPN, CMP #### [facility] [address] [address] [address] Judd Andrade CO2 [Moles/Vol] 33.6 mmol/L Critically high 21.0-32.0 [facility] Comment on above: Performed By: #### H STROPN, CMP #### [facility] [address] [address] [address] Judd Andrade Creatinine [Mass/Vol] 0.59 mg/dL Normal 0.55-1.02 [facility] Comment on above: Performed By: #### H STROPN, CMP #### [facility] [address] [address] [address] Judd Andrade EGFR-AF JAPANESE >60 Normal >=[address] [facility] Comment on above: Performed By: #### H STROPN, CMP #### [facility] [address] [place] [address] Dr. Judd Andrade EGFR-NON AF JAPANESE >60 Normal >=60 [facility] Comment on above: Performed By: #### H STROPN, CMP #### [facility] [address] [address] [address] Judd Andrade Globulin (S) [Mass/Vol] 4.0 g/dL Normal [facility] Comment on above: Performed By: #### H STROPN, CMP #### [facility] [address] [address] [address] Judd Andrade Glucose [Mass/Vol] 130 mg/dL Critically high 74-106 [facility] Comment on above: Performed By: #### H STROPN, CMP #### [facility] [address] [address] [address] Judd Andrade Potassium [Moles/Vol] 3.6 mmol/L Normal 3.5-5.1 [facility] Comment on above: Performed By: #### H STROPN, CMP #### [facility] [address] [address] [address] Judd Andrade Protein [Mass/Vol] 8.0 g/dL Normal 6.4-8.2 [facility] Comment on above: Performed By: #### H STROPN, CMP #### [facility] [address] [address] [address] Judd Andrade Sodium [Moles/Vol] 141 mmol/L Normal 136-145 [facility] Comment on above: Performed By: #### H STROPN, CMP #### [facility] [address] [address] [address] Judd Andrade Urea nitrogen [Mass/Vol] 8.0 mg/dL Normal 7.0-18.0 [facility] Comment on above: Performed By: #### H TERAPN, CMP #### [facility] [address] [address] [address] Judd Andrade Urea nitrogen/Creatinine [Mass ratio] 13.6 mg/mg Normal [facility] Comment on above: Performed By: #### H TERAPN, CMP #### [facility] [address] [address] [address] Judd Andrade TROPONIN, HIGH SENSITIVITYon 06-03-2022 HSTROP <4.0 Normal 4.0-51.3 [facility] Comment on above: Result Comment: CUT- OFF POINTS HAVE BEEN ESTABLISHED BASED ON THE FOURTH UNIVERSAL DEFINITIONS OF MYOCARDIAL INFARCTION. THE UPPER REFERENCE LIMIT (URL) OF TROPONIN, DEFINED THE 99TH PERCENTILE OF cTnI DISTRIBUTION IN A REFERENCE POPULATION, HAS BEEN CONFIRMED THE DECISION THRESHOLD FOR [place] DIAGNOSIS. Performed By: #### H TERAPN, CMP #### [facility] [address] [place] [address] Dr. Judd Andrade XR CHEST 2 Von [...] LINDA RHODES Date: 2022-06-03 12:[address] [facility] Covid-19 PCR (CVDTB)on SARS-CoV-2 (COVID-19) RNA JOLLY+probe Ql (Unsp spec) Not detected Normal NOT DETECTED [facility] Comment on above: Result Comment: This test is not yet approved or cleared by the [place] FDA. When there are no FDA-approved or cleared tests available, and other criteria are met, FDA can make tests available under an emergency access mechanism called an Emergency Use Authorization (EUA). The EUA for this test is supported by the [employer] of Health and Human Service's (HHS's) declaration [...] Performed By: #### H DEB, CMP #### [facility] [address] [place] [address] Dr. Judd Andrade INFLUENZA A AND B AGon 06-02 INFLUANEGH SEE BELOW Normal [facility] Comment on above: Result Comment: Nega tive for Flu A protein angiten. Infection due to Flu A cannot be ruled out. Flu A angiten in the sample may be below the detection limit of the test. Performed By: #### H DEB, CMP #### [facility] [address] [place] [address] Dr. Judd Andrade INFLUBNEG SEE BELOW Normal [facility] Comment on above: Result Comment: Nega tive for Flu B protein antigen. Infection due to Flu B cannot be ruled out. Flu B antigen in the sample may be below the detection limit of the test. Performed By: #### H TERAPN, CMP #### [facility] [address] [place] [address] Dr. Judd Andrade INFLUENZA A AG Negative Normal NEGATIVE SEE COMMENT [facility] Comment on above: Performed By: #### H STROPN, CMP #### [facility] [address], [place] [address] Dr. Judd Andrade INFLUENZA B AG Negative Normal NEGATIVE SEE COMMENT [facility] Comment on above: Performed By: #### H DEB, CMP #### [facility] [address], [place] [address] [address] HEAD_NECKon 02-11-2022 [...] GABO STRONG Date: 2022-02-11 16:[address] [facility] MG MAMM SCREEN 3D SUSANA CADon 02-10-2022 MG MAMM SCREEN 3D SUSNAA CAD Patient: YULIA CASTANO Exam Date: 02/10/2022 : 1965 Gender:F Ordering : DR JOHN WHITE . Admission #: [id number] Family : Order #: [id number] CLICK HERE TO VIEW EXAM RADIOLOGY REPORT [...] breast cancer at age 40. LOCATION: [facility] BREAST COMPOSITION: Almost entirely fatty. FINDINGS: [...] M.D. on 02/11/2022 at 14:[address] [facility] XR CHEST 1 Von 01-15-2022 XR [...] KAREN VALDEZ Date: 2022-01-15 18:[address] [facility] CBC AUTO DIFFon 12-30-2021 BASO # 0.0 103/ul Normal 0.0-0.1 [facility] Comment on above: Performed By: #### C BC #### [facility] [address] [place] [address] Dr. Judd Andrade Basophils/100 WBC (Bld) 0.6 % Normal 0.2-2.0 [facility] Comment on above: Performed By: #### C BC #### [facility] [address] [place] [address] Dr. Judd Andrade EO # 0.1 103/ul Normal 0.0-0.7 [facility] Comment on above: Performed By: #### C BC #### [facility] [address] [place] [address] Dr. Judd Andrade Eosinophils/100 WBC (Bld) 2.1 % Normal 0.9-7.0 [facility] Comment on above: Performed By: #### C BC #### [facility] [address] [place] [address] Dr. Judd Andrade Erythrocyte distribution width (RBC) [Ratio] 13.0 % Normal 11.0-15.0 [facility] Comment on above: Performed By: #### C BC #### [facility] [address] [place] [address] Dr. Judd Andrade Hematocrit (Bld) [Volume fraction] 41.9 % Normal 36.0-48.0 [facility] Comment on above: Performed By: #### C BC #### [facility] [address] [place] [address] Dr. Judd Andrade Hemoglobin (Bld) [Mass/Vol] 13.7 g/dL Normal 12.0-16.0 [facility] Comment on above: Performed By: #### C BC #### [facility] [address] [place] [address] Dr. Judd Andrade IG # 0.03 10e3/ul Normal 0.00-0.03 [facility] Comment on above: Performed By: #### C BC #### [facility] [address] [place] [address] Dr. Judd Andrade IG % 0.6 % Critically high 0.0-0.5 [facility] Comment on above: Performed By: #### C BC #### [facility] [address] [place] [address] Dr. Judd Andrade LYMPH # 1.9 103/ul Normal 1.2-3.8 [facility] Comment on above: Performed By: #### C BC #### [facility] [address] [place] [address] Dr. Judd Andrade Lymphocytes/100 WBC (Bld) 34.5 % Normal 20.5-60.0 [facility] Comment on above: Performed By: #### C BC #### [facility] [address] [place] [address] Dr. Judd Andrade MANUAL DIFF REQ NO Normal [facility] Comment on above: Performed By: #### C BC #### [facility] [address] [place] [address] Dr. Judd Andrade MCH (RBC) [Entitic mass] 28.5 pg Normal 26.7-34.0 [facility] Comment on above: Performed By: #### C BC #### [facility] [address] [place] [address] Dr. Judd Andrade MCHC (RBC) [Mass/Vol] 32.7 g/dL Normal 29.9-35.2 [facility] Comment on above: Performed By: #### C BC #### [facility] [address] [place] [address] Dr. Judd Andrade MCV (RBC) [Entitic vol] 87.1 fL Normal 81.0-99.0 [facility] Comment on above: Performed By: #### C BC #### [facility] [address] [place] [address] Dr. Judd Andrade MONO # 0.6 103/ul Normal 0.3-0.8 [facility] Comment on above: Performed By: #### C BC #### [facility] [address] [place] [address] Dr. Jdud Andrade Monocytes/100 WBC (Bld) 10.4 % Normal 1.7-12.0 [facility] Comment on above: Performed By: #### C BC #### [facility] [address] [place] [address] Dr. Judd Andrade NEUT # 2.8 103/ul Normal 1.4-6.5 [facility] Comment on above: Performed By: #### C BC #### [facility] [address] [place] [address] Dr. Judd Andrade Neutrophils/100 WBC (Bld) 51.8 % Normal 43.0-75.[address] [facility] Comment on above: Performed By: #### C BC #### [facility] [address] [place] [address] Dr. Judd Andrade Platelet mean volume (Bld) [Entitic vol] 10.5 fL Normal 9.5-13.[address] [facility] Comment on above: Performed By: #### C BC #### [facility] [address] [place] [address] Dr. Judd Andrade PLT 270 103/ul Normal 150-[address] [facility] Comment on above: Performed By: #### C BC #### [facility] [address] [place] [address] Dr. Judd Andrade RBC 4.81 106/ul Normal 4.20-5.40 [facility] Comment on above: Performed By: #### C BC #### [facility] [address] [place] [address] Dr. Judd Andrade WBC 5.4 103/ul Normal 4.0-11.0 [facility] Comment on above: Performed By: #### C BC #### [facility] [address] [place] [address] Dr. Judd Andrade CRPon 12-30-2021 CRP [Mass/Vol] mg/L Normal <=1.0 [facility] [place] Comment on above: Performed By: #### C BC #### [facility] [address] [place] [address] Dr. Judd Andrade PROF 14(COMP METB)on 022 Albumin [Mass/Vol] 3.9 g/dL Normal 3.4-5.0 [facility] Comment on above: Performed By: #### C BC #### [facility] [address] [place] [address] Dr. Judd Andrade Albumin/Globulin [Mass ratio] 1.0 {ratio} Normal [facility] Comment on above: Performed By: #### C BC #### [facility] [address] [place] [address] Dr. Judd Andrade ALP [Catalytic activity/Vol] 64 U/L Normal 46-116 [facility] Comment on above: Performed By: #### C BC #### [facility] [address] [place] [address] Dr. Judd Andrade ALT [Catalytic activity/Vol] 50 U/L Normal 14-59 [facility] Comment on above: Performed By: #### C BC #### [facility] [address] [place] [address] Dr. Judd Andrade Anion gap [Moles/Vol] 11.1 mmol/L Normal [facility] Comment on above: Performed By: #### C BC #### [facility] [address] [place] [address] Dr. Judd Andrade AST [Catalytic activity/Vol] 28 U/L Normal 15-37 [facility] Comment on above: Performed By: #### C BC #### [facility] [address] [address] [address] Judd Andrade Bilirubin [Mass/Vol] 0.5 mg/dL Normal 0.2-1.0 [facility] Comment on above: Performed By: #### C BC #### [facility] [address] [address] [address] Judd Andrade Calcium [Mass/Vol] 8.9 mg/dL Normal 8.5-10.1 [facility] Comment on above: Performed By: #### C BC #### [facility] [address] [address] [address] Judd Andrade Chloride [Moles/Vol] 101 mmol/L Normal 98-107 [facility] Comment on above: Performed By: #### C BC #### [facility] [address] [place] [address] Dr. Judd Andrade CO2 [Moles/Vol] 29.4 mmol/L Normal 21.0-32.[address] [facility] Comment on above: Performed By: #### C BC #### [facility] [address] [address] [address] Judd Andrade Creatinine [Mass/Vol] 0.73 mg/dL Normal 0.55-1.02 [facility] Comment on above: Performed By: #### C BC #### [facility] [address] [address] [address] Judd Andrade EGFR-AF JAPANESE >60 Normal >=60 [facility] Comment on above: Performed By: #### C BC #### [facility] [address] [address] [address] Judd Andrade EGFR-NON AF JAPANESE >60 Normal >=60 [facility] Comment on above: Performed By: #### C BC #### [facility] [address] [place] [address] Dr. Judd Andrade Globulin (S) [Mass/Vol] 3.8 g/dL Normal [facility] Comment on above: Performed By: #### C BC #### [facility] [address] [address] [address] Judd Andrade Glucose [Mass/Vol] 139 mg/dL Critically high 74-106 T [facility] Comment on above: Performed By: #### C BC #### [facility] [address] [address] [address] Judd Andrade Potassium [Moles/Vol] 3.5 mmol/L Normal 3.5-5.1 [facility] Comment on above: Performed By: #### C BC #### [facility] [address] [address] [address] Judd Andrade Protein [Mass/Vol] 7.7 g/dL Normal 6.4-8.2 [facility] Comment on above: Performed By: #### C BC #### [facility] [address] [address] [address] Judd Andrade Sodium [Moles/Vol] 138 mmol/L Normal 136-145 [facility] Comment on above: Performed By: #### C BC #### [facility] [address] [address] [address] Judd Andrade Urea nitrogen [Mass/Vol] 12.0 mg/dL Normal 7.0-18.0 [facility] Comment on above: Performed By: #### C BC #### [facility] [address] [address] [address] Judd Andrade Urea nitrogen/Creatinine [Mass ratio] 16.4 mg/mg Normal [facility] Comment on above: Performed By: #### C BC #### [facility] [address] [address] [address] Judd Andrade XR CHEST 2 Von [...] by: ARTEMIO DIXON Date: 2021-12-29 20:49 Normal [facility] TRYPTASEon 12-27-2021 Tryptase 4.5 ug/L Normal 2.2-13.[address] [facility] Comment on above: Performed By: #### C BC #### [facility] [address] [place] [address] Dr. Judd Andrade CBC AUTO DIFFon 12-23-2021 BASO # 0.0 103/ul Normal 0.0-0.1 [facility] Comment on above: Performed By: #### H DBE, CMP #### [facility] [address] [place] [address] Dr. Judd Andrade Basophils/100 WBC (Bld) 0.7 % Normal 0.2-2.0 [facility] Comment on above: Performed By: #### H DEB, CMP #### [facility] [address] [place] [address] Dr. Judd Andrade EO # 0.0 103/ul Normal 0.0-0.[address] [facility] Comment on above: Performed By: #### H DEB, CMP #### [facility] [address] [place] [address] Dr. Judd Andrade Eosinophils/100 WBC (Bld) 0.0 % Critically low 0.9-7.[address] [facility] Comment on above: Performed By: #### H DEB, CMP #### [facility] [address] [place] [address] Dr. Judd Andrade Erythrocyte distribution width (RBC) [Ratio] 13.2 % Normal 11.0-15.[address] [facility] Comment on above: Performed By: #### H DEB, CMP #### [facility] [address] [place] [address] Dr. Judd Andrade Hematocrit (Bld) [Volume fraction] 42.1 % Normal 36.0-48.[address] [facility] Comment on above: Performed By: #### H DEB, CMP #### [facility] [address] [place] [address] Dr. Judd Andrade Hemoglobin (Bld) [Mass/Vol] 13.7 g/dL Normal 12.0-16.[address] [facility] Comment on above: Performed By: #### H STROPN, CMP #### [facility] [address] [address] [address] Judd Andrade IG # 0.01 10e3/ul Normal 0.00-0.03 [facility] Comment on above: Performed By: #### H STROPN, CMP #### [facility] [address] [address] [address] Judd Andrade IG % 0.3 % Normal 0.0-0.5 [facility] Comment on above: Performed By: #### H STROPN, CMP #### [facility] [address] [address] [address] Judd Andrade LYMPH # 0.7 103/ul Critically low 1.2-3.8 [facility] [place] Comment on above: Performed By: #### H STROPN, CMP #### [facility] [address] [address] [address] Judd Andrade Lymphocytes/100 WBC (Bld) 24.1 % Normal 20.5-60.0 [facility] Comment on above: Performed By: #### H STROPN, CMP #### [facility] [address] [address] [address] Judd Andrade MANUAL DIFF REQ NO Normal [facility] Comment on above: Performed By: #### H STROPN, CMP #### [facility] [address] [address] [address] Judd Andrade MCH (RBC) [Entitic mass] 28.4 pg Normal 26.7-34.0 [facility] Comment on above: Performed By: #### H STROPN, CMP #### [facility] [address] [address] [address] Judd Andrade MCHC (RBC) [Mass/Vol] 32.5 g/dL Normal 29.9-35.2 [facility] Comment on above: Performed By: #### H STROPN, CMP #### [facility] [address] [address] [address] Judd Andrade MCV (RBC) [Entitic vol] 87.2 fL Normal 81.0-99.0 [facility] Comment on above: Performed By: #### H STROPN, CMP #### [facility] [address] [address] [address] Judd Andrade MONO # 0.5 103/ul Normal 0.3-0.8 [facility] Comment on above: Performed By: #### H STROPN, CMP #### [facility] [address] [place] [address] Dr. Judd Andrade Monocytes/100 WBC (Bld) 16.9 % Critically high 1.7-12.0 [facility] Comment on above: Performed By: #### H STROPN, CMP #### [facility] [address] [place] [address] Dr. Judd Andrade NEUT # 1.8 103/ul Normal 1.4-6.5 [facility] Comment on above: Performed By: #### H STROPN, CMP #### [facility] [address] [place] [address] Dr. Judd Andrade Neutrophils/100 WBC (Bld) 58.0 % Normal 43.0-75.0 [facility] Comment on above: Performed By: #### H STROPN, CMP #### [facility] [address] [place] [address] Dr. Judd Andrade Platelet mean volume (Bld) [Entitic vol] 9.9 fL Normal 9.5-13.5 [facility] Comment on above: Performed By: #### H STROPN, CMP #### [facility] [address] [place] [address] Dr. Judd Andrade PLT 210 103/ul Normal 150-[address] [facility] Comment on above: Performed By: #### H STROPN, CMP #### [facility] [address] [place] [address] Dr. Judd Andrade RBC 4.83 106/ul Normal 4.20-5.[address] [facility] Comment on above: Performed By: #### H STROPN, CMP #### [facility] [address] [place] [address] Dr. Judd Andrade WBC 3.1 103/ul Critically low 4.0-11.0 [facility] Comment on above: Performed By: #### H TERAPN, CMP #### [facility] [address] [place] [address] Dr. Judd Can 12-23-2021 Iron [Mass/Vol] 35.0 ug/dL Critically low 50.0-170.0 [facility] Comment on above: Performed By: #### C BC #### [facility] [address] [place] [address] Dr. Judd Andrade PROF 14(COMP METB)on 022 Albumin [Mass/Vol] 3.9 g/dL Normal 3.4-5.0 [facility] Comment on above: Performed By: #### C BC #### [facility] [address] [place] [address] Dr. Judd Andrade Albumin/Globulin [Mass ratio] 1.0 {ratio} Normal [facility] Comment on above: Performed By: #### C BC #### [facility] [address] [place] [address] Dr. Judd Andrade ALP [Catalytic activity/Vol] 70 U/L Normal 46-116 [facility] Comment on above: Performed By: #### C BC #### [facility] [address] [place] [address] Dr. Judd Andrade ALT [Catalytic activity/Vol] 43 U/L Normal 14-59 [facility] Comment on above: Performed By: #### C BC #### [facility] [address] [place] [address] Dr. Judd Andrade Anion gap [Moles/Vol] 11.5 mmol/L Normal [facility] Comment on above: Performed By: #### C BC #### [facility] [address] [place] [address] Dr. Judd Andrade AST [Catalytic activity/Vol] 33 U/L Normal 15-37 [facility] Comment on above: Performed By: #### C BC #### [facility] [address] [place] [address] Dr. Judd Andrade Bilirubin [Mass/Vol] 0.3 mg/dL Normal 0.2-1.0 [facility] Comment on above: Performed By: #### C BC #### [facility] [address] [place] [address] Dr. Judd Andrade Calcium [Mass/Vol] 8.9 mg/dL Normal 8.5-10.1 [facility] Comment on above: Performed By: #### C BC #### [facility] [address] [place] [address] Dr. Judd Andrade Chloride [Moles/Vol] 101 mmol/L Normal 98-107 [facility] Comment on above: Performed By: #### C BC #### [facility] [address] [place] [address] Dr. Judd Andrade CO2 [Moles/Vol] 31.1 mmol/L Normal 21.0-32.[address] [facility] Comment on above: Performed By: #### C BC #### [facility] [address] [place] [address] Dr. Judd Andrade Creatinine [Mass/Vol] 0.69 mg/dL Normal 0.55-1.02 [facility] Comment on above: Performed By: #### C BC #### [facility] [address] [place] [address] Dr. Judd Andrade EGFR-AF JAPANESE >60 Normal >=60 [facility] Comment on above: Performed By: #### C BC #### [facility] [address] [place] [address] Dr. Judd Andrade EGFR-NON AF JAPANESE >60 Normal >=[address] [facility] Comment on above: Performed By: #### C BC #### [facility] [address] [place] [address] Dr. Judd Andrade Globulin (S) [Mass/Vol] 3.8 g/dL Normal [facility] Comment on above: Performed By: #### C BC #### [facility] [address] [place] [address] Dr. Judd Andrade Glucose [Mass/Vol] 103 mg/dL Normal 74-106 [facility] Comment on above: Performed By: #### C BC #### [facility] [address] [address] [address] Judd Andrade Potassium [Moles/Vol] 3.6 mmol/L Normal 3.5-5.1 [facility] Comment on above: Performed By: #### C BC #### [facility] [address] [address] [address] Judd Andrade Protein [Mass/Vol] 7.7 g/dL Normal 6.4-8.2 [facility] Comment on above: Performed By: #### C BC #### [facility] [address] [address] [address] Judd Andrade Sodium [Moles/Vol] 140 mmol/L Normal 136-145 [facility] Comment on above: Performed By: #### C BC #### [facility] [address] [place] [address] Dr. Judd Andrade Urea nitrogen [Mass/Vol] 11.0 mg/dL Normal 7.0-18.0 [facility] Comment on above: Performed By: #### C BC #### [facility] [address] [address] [address] Judd Andrade Urea nitrogen/Creatinine [Mass ratio] 15.9 mg/mg Normal [facility] Comment on above: Performed By: #### C BC #### [facility] [address] [place] [address] Dr. Judd Andrade PROTIMEon 12-23-2021 INR Coag (PPP) [Relative time] 1.04 {INR} Normal [facility] Comment on above: Performed By: #### H DEB, CMP #### [facility] [address] [address] [address] Judd Andrade INR GUIDELINES SEE BELOW Normal [facility] Comment on above: Result Comment: PRIETO RED INR: 2.0 - 3.0 CONDITIONS NOT LISTED BELOW 2.5 - 3.5 FOR PROSTHETIC HEART VALVE REPLACEMENT 2.5 - 3.5 RECURRENT THROMBOSIS Performed By: #### H TERAPN, CMP #### [facility] [address] [place] [address] Dr. Judd Andrade PT Coag (PPP) [Time] 11.2 s Normal 9.0-11.6 [facility] Comment on above: Performed By: #### H DEB, CMP #### [facility] [address] [place] [address] Dr. Judd Andrade PTTon 12-23-2021 aPTT Coag (Bld) [Time] 31.5 s Normal 22.3-36.2 [facility] Comment on above: Performed By: #### H DEB, CMP #### [facility] [address] [place] [address] Dr. Judd Andrade ER URINE PROFILEon Bilirubin Ql (U) Negative Normal NEGATIVE [facility] Comment on above: Performed By: #### Sara BOYD, CMP #### [facility] [address] [place] [address] Dr. Judd Andrade Clarity (U) CLEAR Normal CLEAR [facility] Comment on above: Performed By: #### Sara BOYD, CMP #### [facility] [address] [place] [address] Dr. Judd Andrade Color (U) LT. YELLOW Normal YELLOW [facility] Comment on above: Performed By: #### H DEB, CMP #### [facility] [address] [place] [address] Dr. Judd SMITH A micrscopic examination will be performed if indicated. Normal [facility] Comment on above: Performed By: #### Sara BOYD, CMP #### [facility] [address] [place] [address] Dr. Judd Andrade Glucose Ql (U) Negative Normal NEGATIVE [facility] Comment on above: Performed By: #### Sara BOYD, CMP #### [facility] [address] [place] [address] Dr. Judd Andrade Hemoglobin Ql (U) TRACE-INTACT Abnormal NEGATIVE [facility] Comment on above: Performed By: #### Sara BOYD, CMP #### [facility] [address] [place] [address] Dr. Judd Andrade Ketones Ql (U) Negative Normal NEGATIVE [facility] Comment on above: Performed By: #### H STROPN, CMP #### [facility] [address] [address] [address] Judd Andrade LEUKOCYTES Negative Normal NEGATIVE [facility] Comment on above: Performed By: #### H STROPN, CMP #### [facility] [address] [place] [address] Dr. Judd Andrade Nitrite Ql (U) Negative Normal NEGATIVE [facility] Comment on above: Performed By: #### H STROPN, CMP #### [facility] [address] [address] [address] Judd Andrade pH (U) 6.0 [pH] Normal 5-9 [facility] Comment on above: Performed By: #### H TERAPN, CMP #### [facility] [address] [place] [address] Dr. Judd Andrade SPEC GRAVITY 1.005 Normal 1.005-<=1.025 [facility] Comment on above: Performed By: #### H DEB, CMP #### [facility] [address] [place] [address] Dr. Judd Andrade UA PROTEIN Negative Normal NEGATIVE/ TRACE [facility] Comment on above: Performed By: #### H DEB, CMP #### [facility] [address] [place] [address] Dr. Judd Andrade UR MICRO IND INDICATED Normal [facility] Comment on above: Performed By: #### H DEB, CMP #### [facility] [address] [place] [address] Dr. Judd Andrade Urobilinogen Qn (U) 0.2 {Carol'U}/dL Normal 0.2 - 1. 0 [facility] Comment on above: Performed By: #### H STROPN, CMP #### [facility] [address] [place] [address] Dr. Judd Andrade URINE MICROSCOPIC ONLYon BACTERIA NONE SEEN Normal NONE SEEN [facility] Comment on above: Performed By: #### H TERAPN, CMP #### [facility] [address] [address] [address] Judd Andrade Bacteria identified Cx Nom (U) NOT INDICATED Normal [facility] Comment on above: Performed By: #### H STROPN, CMP #### [facility] [address] [address] [address] Judd Andrade CAST NONE SEEN Normal NONE SEEN [facility] Comment on above: Performed By: #### H STROPN, CMP #### [facility] [address] [place] [address] Dr. Judd Andrade Crystals LM Nom (Urine sed) NONE SEEN Normal NONE SEEN [facility] Comment on above: Performed By: #### H STROPN, CMP #### [facility] [address] [place] [address] Dr. Judd Andrade Epithelial cells LM Ql (Urine sed) FEW Abnormal NONE SEEN /RARE [facility] Comment on above: Performed By: #### H STROPN, CMP #### [facility] [address] [place] [address] Dr. Judd Andrade MUCOUS NONE SEEN Normal NONE SEEN [facility] Comment on above: Performed By: #### H STROPN, CMP #### [facility] [address] [place] [address] Dr. Judd Andrade RBC 0-2 Normal 0-[address] [facility] Comment on above: Performed By: #### H STROPN, CMP #### [facility] [address] [place] [address] Dr. Judd Andrade WBC NONE SEEN Normal NONE SEEN [facility] Comment on above: Performed By: #### H STROPN, CMP #### [facility] [address] [place] [address] Dr. Judd Andrade Encounters Encounter Date Encounter Type Care Provider Facility Start: 12-30-2023 ambulatory Bessie Gong Facility :[facility] Start: 06-30-2023 End: 06-30-2023 ambulatory KATIE SOW Not Available Start: 06-24-2023 End: 06-24-2023 ambulatory VALE HI Not Available Start: 03-23-2023 End: 03-23-2023 ambulatory KATIE JUANJOSE Not Available Start: 09-24-[address] JOHN [...] dy response examination DR JOHN WHITE . [facility] Start: 06-26-2022 End: 06-27-[address] [...] ty:H1 Payers Date Payer Category Payer Unknown [id number] 2.16.84 [id number] 1965 Unknown [id number] 2.16.84 0.1.299144.3.579.2.593 1965 Unknown [id number] 2.16.84 0.1.802644.3.579.2.593 1965 Unknown [id number] 2.16.84 0.1.295261.3.579.2.593 1965 Unknown [id number] 2.16.84 0.1.929475.3.579.2.593 1965 Unknown [id number] 2.16.84 0.1.249652.3.579.2.593 1965 Unknown [id number] 2.16.84 0.1.365984.3.579.2.593 1965 Unknown [id number] 2.16.84 0.1.606569.3.579.2.593 1965 Unknown [id number] 2.16.84 0.1.283871.3.579.2.593 1965 Unknown [id number] 2.16.84 0.1.393839.3.579.2.593 1965 Unknown [id number] 2.16.84 0.1.089082.3.579.2.593 1965 Unknown [id number] 2.16.84 0.1.960508.3.579.2.593 1965 Unknown [id number] 2.16.84 0.1.007977.3.579.2.593 1965 Unknown [id number] 2.16.84 0.1.006598.3.579.2.593 1965 Unknown [id number] 2.16.84 0.1.652355.3.579.2.593 1965 Unknown [id number] 2.16.84 0.1.216078.3.579.2.593 1965 Unknown [id number] 2.16.84 0.1.474143.3.579.2.593 1965 Unknown [id number] 2.16.84 0.1.266832.3.579.2.593 1965 Unknown [id number] 2.16.84 0.1.630229.3.579.2.593 1965 Unknown [id number] 2.16.84 0.1.556000.3.579.2.593 1965 Unknown [id number] 2.16.84 0.1.752691.3.579.2.593 1965 Unknown [id number] 2.16.84 0.1.390970.3.579.2.593 1965 Unknown [id number] 2.16.84 0.1.887365.3.579.2.593 1965 Unknown [id number] 2.16.84 0.1.570841.3.579.2.593 1965 Unknown [id number] 2.16.84 0.1.764450.3.579.2.1259 1965 Unknown [id number] 2.16.84 0.1.649800.3.579.2.1259 1965 Unknown [id number] 2.16.840 .1.579360.3.579.2.1259 1965 Unknown [id number] 2.16.8 40.1.318198.3.579.2.727 1959 Self-pay [id number] 1959 Unknown [id number] 1959 Unknown [id number] Summary Purpose Family History No Family History Records FoundNo Family History Records FoundNo Family History Records Found Advance Directives No Advanced Directives Records FoundNo Advanced Directives Records FoundNo Advanced Directives Records Found Additional Source Comments INFORMATION SOURCE (unrecogn ized section and content) DATE CREATED AUTHOR 10/02/2022 [facility] DATE CREATED AUTHOR AUTHOR'S ORGANIZ ATION 07/01/2023 [facility] EPIC DATE CREATED AUTHOR AUTHOR'S ORGANIZ ATION 12/05/2023 [facility] FOR RECORDS PERTAINING TO PATIENTS WHO ARE [...] BE BASED ON THE PRIMARY CLINICAL RECORDS. [facility]. provides no warranty or guarantee of the accuracy or completeness of information in this document.
== END 2023-12-07 07:50 | disposition home or self-care (01) ==
LOC: US 07:49
PROVIDERS: PCP Family Medicine; Visit Provider Family Medicine
DX: R33.9 Retention of urine, unspecified (principal)
CPT/HCPCS: 76770

== ENCOUNTER 2023-12-08 16:38 | Outpatient (OUT) | payer OTHER, SELFPAY ==
[2023-12-08 16:57] LABS: Bilirubin Urine NEGATIVE (NEGATIVE); Blood Urine TRACE-I (NEGATIVE); Clarity Urine SL CLOUDY (CLEAR); Color Urine LT. YELLOW (YELLOW); Glucose Urine UA NEGATIVE (NEGATIVE); Ketones Urine 15 mg/dL (NEGATIVE); Leukocyte Esterase Urine SMALL (NEGATIVE); Nitrite Urine NEGATIVE (NEGATIVE); Protein Urine TRACE mg/dL (NEG/TRACE); Specific Gravity Urine 1.025 (1.005-1.025); Urobilinogen Urine 0.2 EU/dL (0.2-1.0)
[2023-12-08 17:09] LABS: WBC Urine 20-50 #/HPF (NONE SEEN)
[2023-12-08 17:10] LABS: Bacteria Urine MODERATE #/HPF (NONE SEEN); Mucus Urine MODERATE (NONE SEEN); RBC Urine 0-2 #/HPF (0-2); Squamous Epithelial Cell Urine MODERATE #/LPF (NONE/RARE); Transitional Epi Cells Urine RARE #/LPF (NONE SEEN)
[2023-12-08 17:12] LABS: Cast Seen? NONE SEEN #/LPF (NONE SEEN); Crystals Seen? None Seen #/HPF (None Seen); Urine Culture Indicated YES
== END 2023-12-08 16:39 | disposition home or self-care (01) ==
LOC: LAB 16:38
PROVIDERS: PCP Family Medicine; Visit Provider Family Medicine
DX: R30.0 Dysuria (principal)
CPT/HCPCS: 81001; 87086; 87186

== ENCOUNTER 2023-12-14 14:14 | Outpatient (OUT) | payer OTHER, SELFPAY ==
[2023-12-14 14:32] LABS: Basophils Absolute Auto 0.1 10^3/uL (0.0-0.1); Eosinophils Percent Auto 0.3 % (0.9-7.0); Hematocrit 41.3 % (36.0-48.0); Hemoglobin 13.7 g/dL (12.0-16.0); Immature Granulocytes Abs Auto 0.01 10^3/uL (0.00-0.03); Immature Granulocytes Pct Auto 0.2 % (0.0-0.5); Lymphocytes Absolute Auto 1.4 10^3/uL (1.2-3.8); Lymphocytes Percent Auto 22.9 % (20.5-60.0); Mean Corpuscular HGB Conc 33.2 g/dL (29.9-35.2); Mean Corpuscular Hemoglobin 29.3 pg (26.7-34.0); Mean Corpuscular Volume 88.2 fL (81.0-99.0); Mean Platelet Volume 9.9 fL (9.5-13.5); Monocytes Absolute Auto 0.5 10^3/uL (0.3-0.8); Monocytes Percent Auto 8.3 % (1.7-12.0); Neutrophils Absolute Auto 4.1 10^3/uL (1.4-6.5); Neutrophils Percent Auto 67.3 % (43.0-75.0); Platelet Count 299 10^3/uL (150-450); Red Blood Count 4.68 10^6/uL (4.20-5.40); Red Cell Distribution Width 13.1 % (11.0-15.0)
[2023-12-14 14:55] LABS: Alanine Aminotransferase 27 U/L (14-59); Albumin Globulin Ratio 1.2; Albumin Level 4.1 g/dL (3.4-5.0); Alkaline Phosphatase 74 U/L (46-116); Aspartate Amino Transferase 20 U/L (15-37); BUN Creatinine Ratio 12.1; Bilirubin Total 0.5 mg/dL (0.2-1.0); Calcium 9.4 mg/dL (8.5-10.1); Carbon Dioxide 31.2 mmol/L (21.0-32.0); Chloride 104 mmol/L (98-107); Estimated GFR (African America >60 (>=60); Estimated GFR (Non-African Ame >60 (>=60); Globulin 3.5 g/dL; Glucose 93 mg/dL (74-106); Potassium 4.2 mmol/L (3.5-5.1); Sodium 141 mmol/L (136-145); Total Protein 7.6 g/dL (6.4-8.2)
== END 2023-12-14 14:15 | disposition home or self-care (01) ==
LOC: LAB 14:16
PROVIDERS: PCP Family Medicine; Visit Provider Nurse Practitioner Family
DX: N39.0 Urinary tract infection, site not specified (principal)
CPT/HCPCS: 36415; 80053; 85025

== ENCOUNTER 2023-12-20 15:34 | Outpatient (OUT) | payer OTHER, SELFPAY ==
[2023-12-20 16:26] LABS: Bilirubin Urine NEGATIVE (NEGATIVE); Blood Urine NEGATIVE (NEGATIVE); Clarity Urine CLEAR (CLEAR); Color Urine LT. YELLOW (YELLOW); Glucose Urine UA NEGATIVE (NEGATIVE); Ketones Urine NEGATIVE (NEGATIVE); Leukocyte Esterase Urine TRACE (NEGATIVE); Nitrite Urine NEGATIVE (NEGATIVE); Protein Urine NEGATIVE (NEG/TRACE); Specific Gravity Urine <=1.005 (1.005-1.025); Urobilinogen Urine 0.2 EU/dL (0.2-1.0)
[2023-12-20 17:56] LABS: Bacteria Urine TRACE #/HPF (NONE SEEN); Mucus Urine NONE SEEN (NONE SEEN); RBC Urine 0-2 #/HPF (0-2); Squamous Epithelial Cell Urine RARE #/LPF (NONE/RARE); WBC Urine 0-2 #/HPF (NONE SEEN)
[2023-12-20 17:57] LABS: Cast Seen? NONE SEEN #/LPF (NONE SEEN); Crystals Seen? None Seen #/HPF (None Seen); Transitional Epi Cells Urine RARE #/LPF (NONE SEEN); Urine Culture Indicated ALREADY ORDERED
== END 2023-12-20 15:35 | disposition home or self-care (01) ==
LOC: LAB 15:35
PROVIDERS: PCP Family Medicine; Visit Provider Nurse Practitioner Family
DX: N39.0 Urinary tract infection, site not specified (principal)
CPT/HCPCS: 81001; 87086

== ENCOUNTER 2023-12-21 12:41 | Outpatient (OUT) | payer OTHER, SELFPAY ==
[2023-12-21 13:01] LABS: Basophils Percent Auto 0.6 % (0.2-2.0); Eosinophils Percent Auto 0.3 % (0.9-7.0); Hematocrit 42.5 % (36.0-48.0); Hemoglobin 14.3 g/dL (12.0-16.0); Immature Granulocytes Abs Auto 0.01 10^3/uL (0.00-0.03); Immature Granulocytes Pct Auto 0.2 % (0.0-0.5); Lymphocytes Absolute Auto 1.7 10^3/uL (1.2-3.8); Lymphocytes Percent Auto 26.3 % (20.5-60.0); Mean Corpuscular HGB Conc 33.6 g/dL (29.9-35.2); Mean Corpuscular Hemoglobin 29.5 pg (26.7-34.0); Mean Corpuscular Volume 87.8 fL (81.0-99.0); Monocytes Absolute Auto 0.6 10^3/uL (0.3-0.8); Monocytes Percent Auto 9.6 % (1.7-12.0); Neutrophils Absolute Auto 4.1 10^3/uL (1.4-6.5); Platelet Count 310 10^3/uL (150-450); Red Blood Count 4.84 10^6/uL (4.20-5.40); Red Cell Distribution Width 13.2 % (11.0-15.0); White Blood Count 6.5 10^3/uL (4.0-11.0)
[2023-12-21 13:47] LABS: Alanine Aminotransferase 21 U/L (14-59); Albumin Globulin Ratio 1.1; Albumin Level 4.2 g/dL (3.4-5.0); Alkaline Phosphatase 81 U/L (46-116); Amylase 40 U/L (25-115); Anion Gap 12.9; Aspartate Amino Transferase 15 U/L (15-37); BUN Creatinine Ratio 17.5; Bilirubin Total 0.5 mg/dL (0.2-1.0); Calcium 9.9 mg/dL (8.5-10.1); Carbon Dioxide 31.3 mmol/L (21.0-32.0); Chloride 100 mmol/L (98-107); Estimated GFR (African America >60 (>=60); Estimated GFR (Non-African Ame >60 (>=60); Globulin 3.9 g/dL; Glucose 111 mg/dL (74-106); Potassium 4.2 mmol/L (3.5-5.1); Sodium 140 mmol/L (136-145); Total Protein 8.1 g/dL (6.4-8.2)
== END 2023-12-21 12:42 | disposition home or self-care (01) ==
LOC: LAB 12:42
PROVIDERS: PCP Family Medicine; Visit Provider Family Medicine
DX: I10 Essential (primary) hypertension (principal)
CPT/HCPCS: 36415; 80053; 82150; 85025

== ENCOUNTER 2023-12-28 15:58 | Outpatient (OUT) | payer OTHER, SELFPAY ==
--- OUTSIDE RECORDS SUMMARY | 2023-12-27 08:26 | XMS_ITS | CCD ---
Author Organization [facility] Care Team Providers Care Behavior Clinician Name Role Phone ABELINOY ., DR LOPEZ Attending Unavailable HOY ., DR LOPEZ Consulting Unavailable HOY ., DR LOPEZ Primary Care Unavailable HOY ., DR LOPEZ Admitting Unavailable HOY ., DR LOPEZ Attending Unavailable HOY ., DR OLPEZ Consulting Unavailable HOY ., DR LOPEZ Primary [...] DR LOPEZ Admitting Unavailable HOY ., DR LOEPZ Attending Unavailable HOY ., DR LOPEZ Consulting [...] DR LOPEZ Admitting Unavailable HOY ., DR LOPZE Consulting Unavailable HOY ., DR LOPEZ Attending Unavailable HOY ., DR LOPEZ Primary Care Unavailable HOY ., DR LOPEZ Admchao Unavailable ARTEMIO DIXON Consulting Unavailable JUANJOSE ., DR WILSON Admitting Unavailable JUANJOSE ., DR WILSON Attending Unavailable LITTLE ROCK, DR ELLYN Dougherty Consulting Unavailable HOY ., [...] LOPEZ Admitting Unavailable LINDA RHODES Consulting Unavailable Bessie Gong Attending Unavailable VALE HI Attending Unavailable RALF RENODN Referring Unavailable KATIE SOW Attending Unavailable KATIE SOW Attending Unavailable KATIE SOW Attending Unavailable NATALIE TINSLEY Attending Unavailable Allergies Allergy Classification Reported Allergen(s) Allergy Type Date of Onset Reaction(s) Facility (1 source) Azithromycin Drug Allergy 2 [facility] Repository (2 sources) Imipramine Drug Allergy 3 [facility] Repository (2 sources) Sulfonamides (Antibiotic) Drug allergy (disorder) 3 [facility] Repository (2 sources) E.E.S. Drug allergy (disorder) 3 [facility] Repository (1 source) Erythromycin; Translations: [erythromycin] Drug Allergy [facility] Repository (1 source) Imipramine; Translations: [Imipramine Hydrochloride] Drug Allergy [facility] Repository (1 source) Sulfonamides (Antibiotic); Translations: [sulfa drugs] Propensity to adverse reactions (disorder) [facility] Repository Problems Active Problems Problem Classification Problem [...] 06-05-2022 Episodic Other aftercare (4 sources) Other care home (current) drug therapy; Translations: [OTH PRISON CURRENT DRUG THERAPY] Onset: 12-23-2021 Episodic Other [...] : DR KATIE SOW . Admission #: [id number] Family : Order #: [id number] CLICK HERE TO VIEW EXAM RADIOLOGY REPORT [...] LOCATION: [facility] BREAST COMPOSITION: Almost entirely fatty. FINDINGS: DIAGNOSTIC [...] MD on 09/22/2022 at 15:03 Normal [facility] US BREAST RIGHT LIMITEDon US BREAST RIGHT LIMITED Patient: YULIA CASTANO Exam Date: 09/22/2022 : 1965 Gender:F Ordering : DR KATIE SOW . Admission #: [id number] Family : Order #: [id number] CLICK HERE TO VIEW EXAM RADIOLOGY REPORT [...] LOCATION: [facility] BREAST COMPOSITION: Almost entirely fatty. FINDINGS: DIAGNOSTIC [...] Castaneda MD on 09/22/2022 at 15:03 Normal [facility] US ST HEAD_NECKon 08-31-2022 US [...] by: GABO STRONG Date: 2022-08-31 08:09 Normal [facility] US PELVIS AND TRANSVAGon US [...] by: GABO STRONG Date: 2022-07-29 06:32 Normal [facility] INSULINon 07-04-2022 Insulin 6.2 uIU/mL Normal 2.6-24.9 [facility] Comment on above: Performed By: #### H STROPN, CMP #### [facility] Laboratory [address] [place] [address] Dr. Judd Andrade CBC AUTO DIFFon 07-03-2022 BASO # 0.0 103/ul Normal 0.0-0.1 [facility] Comment on above: Performed By: #### C BC #### [facility] Laboratory [address] [place] [address] Dr. Judd Andrade Basophils/100 WBC (Bld) 1.1 % Normal 0.2-2.0 [facility] Comment on above: Performed By: #### C BC #### [facility] Laboratory [address] [place] [address] Dr. Judd Andrade EO # 0.1 103/ul Normal 0.0-0.7 [facility] Comment on above: Performed By: #### C BC #### [facility] Laboratory [address] [place] [address] Dr. Judd Andrade Eosinophils/100 WBC (Bld) 3.6 % Normal 0.9-7.0 [facility] Comment on above: Performed By: #### C BC #### [facility] Laboratory [address] [place] [address] Dr. Judd Andrade Erythrocyte distribution width (RBC) [Ratio] 13.6 % Normal 11.0-15.0 [facility] Comment on above: Performed By: #### C BC #### [facility] Laboratory [address] [place] [address] Dr. Judd Andrade Hematocrit (Bld) [Volume fraction] 41.8 % Normal 36.0-48.0 [facility] Comment on above: Performed By: #### C BC #### [facility] Laboratory [address] [place] [address] Dr. Judd Andrade Hemoglobin (Bld) [Mass/Vol] 13.5 g/dL Normal 12.0-16.0 [facility] Comment on above: Performed By: #### C BC #### [facility] Laboratory [address] [place] [address] Dr. Judd Andrade IG # 0.01 10e3/ul Normal 0.00-0.03 [facility] Comment on above: Performed By: #### C BC #### [facility] [address] [place] [address] Dr. Judd Andrade IG % 0.3 % Normal 0.0-0.5 [facility] Comment on above: Performed By: #### C BC #### [facility] [address] [place] [address] Dr. Judd Andrade LYMPH # 1.4 103/ul Normal 1.2-3.8 [facility] Comment on above: Performed By: #### C BC #### [facility] Laboratory [address] [place] [address] Dr. Judd Andrade Lymphocytes/100 WBC (Bld) 38.4 % Normal 20.5-60.0 [facility] Comment on above: Performed By: #### C BC #### [facility] [address] [place] [address] Dr. Judd Andrade MANUAL DIFF REQ NO Normal [facility] Comment on above: Performed By: #### C BC #### [facility] [address] [place] [address] Dr. Judd Andrade MCH (RBC) [Entitic mass] 28.2 pg Normal 26.7-34.0 [facility] Comment on above: Performed By: #### C BC #### [facility] [address] [place] [address] Dr. Judd Andrade MCHC (RBC) [Mass/Vol] 32.3 g/dL Normal 29.9-35.2 [facility] Comment on above: Performed By: #### C BC #### [facility] [address] [place] [address] Dr. Judd Andrade MCV (RBC) [Entitic vol] 87.4 fL Normal 81.0-99.0 [facility] Comment on above: Performed By: #### C BC #### [facility] [address] [place] [address] Dr. Judd Andrade MONO # 0.4 103/ul Normal 0.3-0.8 [facility] Comment on above: Performed By: #### C BC #### [facility] [address] [place] [address] Dr. Judd Andrade Monocytes/100 WBC (Bld) 10.4 % Normal 1.7-12.0 [facility] Comment on above: Performed By: #### C BC #### [facility] [address] [place] [address] Dr. Judd Andrade NEUT # 1.7 103/ul Normal 1.4-6.5 [facility] Comment on above: Performed By: #### C BC #### [facility] [address] [place] [address] Dr. Judd Andrade Neutrophils/100 WBC (Bld) 46.2 % Normal 43.0-75.0 [facility] Comment on above: Performed By: #### C BC #### [facility] [address] [place] [address] Dr. Judd Andrade Platelet mean volume (Bld) [Entitic vol] 9.6 fL Normal 9.5-13.5 [facility] Comment on above: Performed By: #### C BC #### [facility] [address] [place] [address] Dr. Judd Andrade PLT 246 103/ul Normal 150-450 [facility] Comment on above: Performed By: #### C BC #### [facility] [address] [place] [address] Dr. Judd Andrade RBC 4.78 106/ul Normal 4.20-5.40 [facility] Comment on above: Performed By: #### C BC #### [facility] [address] [place] [address] Dr. Judd Andrade WBC 3.7 103/ul Critically low 4.0-11.0 [facility] Comment on above: Performed By: #### C BC #### [facility] [address] [place] [address] Dr. Judd Andrade FREE THYROXINE INDEX T7on FTI 3.20 Normal 1.30-4.50 [facility] Comment on above: Performed By: #### T 7, LIPID, TSH, CMP #### [facility] [address] [address] [address] Judd Andrade T3U 36.0 % Normal 30.0-39.0 [facility] Comment on above: Performed By: #### T 7, LIPID, TSH, CMP #### [facility] [address] [address] [address] Judd Andrade T4 [Mass/Vol] 8.90 ug/dL Normal 4.80-13.90 [facility] Comment on above: Performed By: #### T 7, LIPID, TSH, CMP #### [facility] [address] [address] [address] Judd Andrade GLYCOHEMOGLOBIN A1Con 2022 ADA RECOMMENDATION SEE BELOW Normal [facility] Comment on above: Result Comment: ADA RECOMMENDED LIMIT 4.0 - 6.0 ADA THERAPEUTIC TARGET < 7.0 ACTION SUGGESTED > 7.0 Performed By: #### C BC #### [facility] [address] [address] [address] Judd Andrade Glucose [Mass/Vol] 120 mg/dL Normal [facility] Comment on above: Performed By: #### C BC #### [facility] [address] [place] [address] Dr. Judd Andrade HbA1c (Bld) [Mass fraction] 5.8 % Normal 4.5-6.2 [facility] Comment on above: Performed By: #### C BC #### [facility] [address] [place] [address] Dr. Judd Andrade IRONon 07-03-2022 Iron [Mass/Vol] 67.0 ug/dL Normal 50.0-170.0 [facility] Comment on above: Performed By: #### V ITAD, IRON #### [facility] [address] [place] [address] Dr. Judd Andrade LIPID PROFILEon 07-03-2022 CHOL-HDL RATIO NORM SEE BELOW Normal [facility] Comment on above: Result Comment: 3.3 - 4.4 LOW RISK 4.4 - 7.1 AVERAGE RISK 7.1 - 11.0 MODERATE RISK >11.0 HIGH RISK Performed By: #### T 7, LIPID, TSH, CMP #### [facility] [address] [place] [address] Dr. Judd Andrade Cholesterol [Mass/Vol] 216 mg/dL Critically high <=200 [facility] Comment on above: Performed By: #### T 7, LIPID, TSH, CMP #### [facility] [address] [place] [address] Dr. Judd Andrade Cholesterol in HDL [Mass/Vol] 87 mg/dL Critically high 40-60 [facility] Comment on above: Performed By: #### T 7, LIPID, TSH, CMP #### [facility] [address] [place] [address] Dr. Judd Andrade Cholesterol in LDL [Mass/Vol] 124.2 mg/dL Normal [facility] Comment on above: Performed By: #### T 7, LIPID, TSH, CMP #### [facility] [address] [place] [address] Dr. Judd Andrade Cholesterol.total/Ch olesterol in HDL [Mass ratio] 2.5 {ratio} Normal [facility] Comment on above: Performed By: #### T 7, LIPID, TSH, CMP #### [facility] [address] [place] [address] Dr. Judd Andrade HDL NORMAL > or = 60 mg/dl - LO W CARDIOVASCULAR RISK <40 mg/dl - HIGH CARDIOVASCULAR RISK Normal [facility] Comment on above: Performed By: #### T 7, LIPID, TSH, CMP #### [facility] [address] [place] [address] Dr. Judd Andrade LDL CALC NORMAL SEE BELOW Normal [facility] Comment on above: Result Comment: <100 mg/dl OPTIMAL 100 - 129 mg/dl NEAR OR ABOVE OPTIMAL 130 - 159 mg/dl BORDERLINE HIGH 160 - 189 mg/dl HIGH >190 mg/dl VERY HIGH Performed By: #### T 7, LIPID, TSH, CMP #### [facility] [address] [place] [address] Dr. Judd Andrade Triglyceride [Mass/Vol] 24 mg/dL Normal <=150 [facility] Comment on above: Performed By: #### T 7, LIPID, TSH, CMP #### [facility] [address] [address] [address] Judd Andrade VLDL CALC 4.8 mg/dL Normal [facility] Comment on above: Performed By: #### T 7, LIPID, TSH, CMP #### [facility] [address] [address] [address] Judd Andrade PROF 14(COMP METB)on 023 Albumin [Mass/Vol] 4.0 g/dL Normal 3.4-5.0 [facility] Comment on above: Performed By: #### T 7, LIPID, TSH, CMP #### [facility] [address] [place] [address] Dr. Judd Andrade Albumin/Globulin [Mass ratio] 1.1 {ratio} Normal [facility] Comment on above: Performed By: #### T 7, LIPID, TSH, CMP #### [facility] [address] [place] [address] Dr. Judd Andrade ALP [Catalytic activity/Vol] 78 U/L Normal 46-116 [facility] Comment on above: Performed By: #### T 7, LIPID, TSH, CMP #### [facility] [address] [place] [address] Dr. Judd Andrade ALT [Catalytic activity/Vol] 29 U/L Normal 14-59 [facility] Comment on above: Performed By: #### T 7, LIPID, TSH, CMP #### [facility] [address] [address] [address] Judd Andrade Anion gap [Moles/Vol] 5.6 mmol/L Normal [facility] Comment on above: Performed By: #### T 7, LIPID, TSH, CMP #### [facility] [address] [place] [address] Dr. Judd Andrade AST [Catalytic activity/Vol] 23 U/L Normal 15-37 [facility] Comment on above: Performed By: #### T 7, LIPID, TSH, CMP #### [facility] [address] [place] [address] Dr. Judd Andrade Bilirubin [Mass/Vol] 0.5 mg/dL Normal 0.2-1.0 [facility] Comment on above: Performed By: #### T 7, LIPID, TSH, CMP #### [facility] [address] [place] [address] Dr. Judd Andrade Calcium [Mass/Vol] 8.9 mg/dL Normal 8.5-10.1 [facility] Comment on above: Performed By: #### T 7, LIPID, TSH, CMP #### [facility] [address] [place] [address] Dr. Judd Andrade Chloride [Moles/Vol] 105 mmol/L Normal 98-107 [facility] Comment on above: Performed By: #### T 7, LIPID, TSH, CMP #### [facility] [address] [place] [address] Dr. Judd Andrade CO2 [Moles/Vol] 32.0 mmol/L Normal 21.0-32.0 [facility] Comment on above: Performed By: #### T 7, LIPID, TSH, CMP #### [facility] [address] [place] [address] Dr. Judd Andrade Creatinine [Mass/Vol] 0.52 mg/dL Critically low 0.55-1.02 [facility] Comment on above: Performed By: #### T 7, LIPID, TSH, CMP #### [facility] [address] [place] [address] Dr. Judd Andrade EGFR-AF [place] >60 Normal >=60 [facility] Comment on above: Performed By: #### T 7, LIPID, TSH, CMP #### [facility] [address] [place] [address] Dr. Judd Andrade EGFR-NON AF [place] >60 Normal >=60 [facility] Comment on above: Performed By: #### T 7, LIPID, TSH, CMP #### [facility] [address] [place] [address] Dr. Judd Andrade Globulin (S) [Mass/Vol] 3.6 g/dL Normal [facility] Comment on above: Performed By: #### T 7, LIPID, TSH, CMP #### [facility] [address] [address] [address] Judd Andrade Glucose [Mass/Vol] 89 mg/dL Normal 74-106 [facility] Comment on above: Performed By: #### T 7, LIPID, TSH, CMP #### [facility] [address] [place] [address] Dr. Judd Andrade Potassium [Moles/Vol] 4.2 mmol/L Normal 3.5-5.1 [facility] Comment on above: Performed By: #### T 7, LIPID, TSH, CMP #### [facility] [address] [place] [address] Dr. Judd Andrade Protein [Mass/Vol] 7.6 g/dL Normal 6.4-8.2 [facility] Comment on above: Performed By: #### T 7, LIPID, TSH, CMP #### [facility] [address] [place] [address] Dr. Judd Andrade Sodium [Moles/Vol] 139 mmol/L Normal 136-145 [facility] Comment on above: Performed By: #### T 7, LIPID, TSH, CMP #### [facility] [address] [place] [address] Dr. Judd Andrade Urea nitrogen [Mass/Vol] 11.0 mg/dL Normal 7.0-18.0 [facility] Comment on above: Performed By: #### T 7, LIPID, TSH, CMP #### [facility] [address] [place] [address] Dr. Judd Andrade Urea nitrogen/Creatinine [Mass ratio] 21.2 mg/mg Normal [facility] Comment on above: Performed By: #### T 7, LIPID, TSH, CMP #### [facility] [address] [place] [address] Dr. Judd Andrade TSHon 07-03-2022 TSH 1.037 uIU/mL Normal 0.358-3.740 [facility] Comment on above: Performed By: #### T 7, LIPID, TSH, CMP #### [facility] [address] [place] [address] Dr. Judd Andrade VITAMIN D 25 OHon 07-03-2022 VIT D 25-OH 32.8 ng/mL Normal [facility] Comment on above: Performed By: #### V CARMELO, IRON #### [facility] [address] [place] [address] Dr. Judd Andrade VIT D RANGES SEE BELOW Normal [facility] Comment on above: Result Comment: <20 ng/mL Vit D deficient 20 - <30 ng/mL Vit D insufficient 30 - 100 ng/mL Vit D sufficient >100 ng/mL Potential Toxicity Performed By: #### V CARMELO, IRON #### [facility] [address] [place] [address] Dr. Judd Andrade BORDETELLA PERTUSSIS AB IGGo n 06-30-2022 B pertussis IgG Ab 3.88 index Invalid Interpretation Code 0.00-0.94 [facility] Comment on above: Result Comment: Clie nt Requested Flag Negative <0.95 Equivocal 0.95 - 1.04 Positive >1.04 Performed By: #### C BC #### [facility] [address] [place] [address] Dr. Judd Andrade BORDETELLA PERTUSSIS AB IGMo n 06-30-2022 B pertussis IgM Ab <1.0 Normal 0.0-0.9 [facility] Comment on above: Result Comment: Nega tive <1.0 Borderline 1.0 - 1.1 Positive >1.1 Performed By: #### H STROPN, CMP #### [facility] [address] [place] [address] Dr. Judd Andrade [id number] 2022 Rzdnv-6-[id number], Serum 158 mg/dL Normal 101-187 [facility] Comment on above: Performed By: #### C BC #### [facility] [address] [place] [address] Dr. Judd Andrade CBC AUTO DIFFon 06-03-2022 BASO # 0.0 103/ul Normal 0.0-0.1 [facility] Comment on above: Performed By: #### H STROPN, CMP #### [facility] [address] [place] [address] Dr. Judd Andrade Basophils/100 WBC (Bld) 0.6 % Normal 0.2-2.0 [facility] Comment on above: Performed By: #### H STROPN, CMP #### [facility] [address] [place] [address] Dr. Judd Andrade EO # 0.0 103/ul Normal 0.0-0.7 [facility] Comment on above: Performed By: #### H STROPN, CMP #### [facility] [address] [place] [address] Dr. Judd Andrade Eosinophils/100 WBC (Bld) 0.6 % Critically low 0.9-7.0 [facility] Comment on above: Performed By: #### H STROPN, CMP #### [facility] [address] [place] [address] Dr. Judd Andrade Erythrocyte distribution width (RBC) [Ratio] 13.5 % Normal 11.0-15.0 [facility] Comment on above: Performed By: #### H STROPN, CMP #### [facility] [address] [place] [address] Dr. Judd Andrade Hematocrit (Bld) [Volume fraction] 42.4 % Normal 36.0-48.0 [facility] Comment on above: Performed By: #### H STROPN, CMP #### [facility] [address] [place] [address] Dr. Judd Andrade Hemoglobin (Bld) [Mass/Vol] 13.4 g/dL Normal 12.0-16.0 [facility] Comment on above: Performed By: #### H STROPN, CMP #### [facility] [address] [place] [address] Dr. Judd Andrade IG # 0.01 10e3/ul Normal 0.00-0.03 [facility] Comment on above: Performed By: #### H STROPN, CMP #### [facility] [address] [place], [place] [id number] Dr. Judd Andrade IG % 0.2 % Normal 0.0-0.5 [facility] Comment on above: Performed By: #### H TERAPN, CMP #### [facility] [address] [address] [address] Judd Andrade LYMPH # 1.1 103/ul Critically low 1.2-3.8 [facility] Comment on above: Performed By: #### H TERAPN, CMP #### [facility] [address] [address] [address] Judd Andrade Lymphocytes/100 WBC (Bld) 23.5 % Normal 20.5-60.0 [facility] Comment on above: Performed By: #### H DEB, CMP #### [facility] [address] [place] [address] Dr. Judd Andrade MANUAL DIFF REQ NO Normal [facility] Comment on above: Performed By: #### H DEB, CMP #### [facility] [address] [place] [address] Dr. Judd Andrade MCH (RBC) [Entitic mass] 28.9 pg Normal 26.7-34.0 [facility] Comment on above: Performed By: #### H DEB, CMP #### [facility] [address] [place] [address] Dr. Judd Andrade MCHC (RBC) [Mass/Vol] 31.6 g/dL Normal 29.9-35.2 [facility] Comment on above: Performed By: #### H TERAPN, CMP #### [facility] [address] [place] [address] Dr. Judd Andrade MCV (RBC) [Entitic vol] 91.6 fL Normal 81.0-99.0 [facility] Comment on above: Performed By: #### H TERAPN, CMP #### [facility] [address] [place] [address] Dr. Judd Andrade MONO # 0.8 103/ul Normal 0.3-0.8 [facility] Comment on above: Performed By: #### H TERAPN, CMP #### [facility] [address] [address] [address] Judd Andrade Monocytes/100 WBC (Bld) 16.5 % Critically high 1.7-12.0 [facility] Comment on above: Performed By: #### H STROPN, CMP #### [facility] [address] [place] [address] Dr. Judd Andrade NEUT # 2.7 103/ul Normal 1.4-6.5 [facility] Comment on above: Performed By: #### H STROPN, CMP #### [facility] [address] [place] [address] Dr. Judd Andrade Neutrophils/100 WBC (Bld) 58.6 % Normal 43.0-75.0 [facility] Comment on above: Performed By: #### H EDB, CMP #### [facility] [address] [place] [address] Dr. Judd Andrade Platelet mean volume (Bld) [Entitic vol] 9.8 fL Normal 9.5-13.5 [facility] Comment on above: Performed By: #### H DEB, CMP #### [facility] [address] [place] [address] Dr. Judd Andrade PLT 252 103/ul Normal 150-450 [facility] Comment on above: Performed By: #### H DEB, CMP #### [facility] [address] [place] [address] Dr. Judd Andrade RBC 4.63 106/ul Normal 4.20-5.40 [facility] Comment on above: Performed By: #### H STROPN, CMP #### [facility] [address] [place] [address] Dr. Judd Andrade WBC 4.7 103/ul Normal 4.0-11.0 [facility] Comment on above: Performed By: #### H TERAPN, CMP #### [facility] [address] [place] [address] Dr. Judd Andrade PROF 14(COMP METB)on 023 Albumin [Mass/Vol] 4.0 g/dL Normal 3.4-5.0 [facility] Comment on above: Performed By: #### H STROPN, CMP #### [facility] [address] [address] [address] Judd Andrade Albumin/Globulin [Mass ratio] 1.0 {ratio} Normal [facility] Comment on above: Performed By: #### H STROPN, CMP #### [facility] [address] [address] [address] Judd Andrade ALP [Catalytic activity/Vol] 77 U/L Normal 46-116 [facility] Comment on above: Performed By: #### H STROPN, CMP #### [facility] [address] [address] [address] Judd Andrade ALT [Catalytic activity/Vol] 33 U/L Normal 14-59 [facility] Comment on above: Performed By: #### H STROPN, CMP #### [facility] [address] [address] [address] Judd Andrade Anion gap [Moles/Vol] 8.0 mmol/L Normal [facility] Comment on above: Performed By: #### H STROPN, CMP #### [facility] [address] [address] [address] Judd Andrade AST [Catalytic activity/Vol] 28 U/L Normal 15-37 [facility] Comment on above: Performed By: #### H STROPN, CMP #### [facility] [address] [address] [address] Judd Andrade Bilirubin [Mass/Vol] 0.6 mg/dL Normal 0.2-1.0 [facility] Comment on above: Performed By: #### H STROPN, CMP #### [facility] [address] [address] [address] Judd Andrade Calcium [Mass/Vol] 9.3 mg/dL Normal 8.5-10.1 [facility] Comment on above: Performed By: #### H STROPN, CMP #### [facility] [address] [address] [address] Judd Andrade Chloride [Moles/Vol] 103 mmol/L Normal 98-107 [facility] Comment on above: Performed By: #### H STROPN, CMP #### [facility] [address] [address] [address] Judd Andrade CO2 [Moles/Vol] 33.6 mmol/L Critically high 21.0-32.0 [facility] Comment on above: Performed By: #### H STROPN, CMP #### [facility] [address] [address] [address] Judd Andrade Creatinine [Mass/Vol] 0.59 mg/dL Normal 0.55-1.02 [facility] Comment on above: Performed By: #### H STROPN, CMP #### [facility] [address] [address] [address] Judd Andrade EGFR-AF [place] >60 Normal >=60 [facility] Comment on above: Performed By: #### H STROPN, CMP #### [facility] [address] [address] [address] Judd Andrade EGFR-NON AF [place] >60 Normal >=60 [facility] Comment on above: Performed By: #### H STROPN, CMP #### [facility] [address] [address] [address] Judd Andrade Globulin (S) [Mass/Vol] 4.0 g/dL Normal [facility] Comment on above: Performed By: #### H STROPN, CMP #### [facility] [address] [address] [address] Judd Andrade Glucose [Mass/Vol] 130 mg/dL Critically high 74-106 [facility] Comment on above: Performed By: #### H STROPN, CMP #### [facility] [address] [address] [address] Judd Andrade Potassium [Moles/Vol] 3.6 mmol/L Normal 3.5-5.1 [facility] Comment on above: Performed By: #### H STROPN, CMP #### [facility] [address] [address] [address] Judd Andrade Protein [Mass/Vol] 8.0 g/dL Normal 6.4-8.2 [facility] Comment on above: Performed By: #### H STROPN, CMP #### [facility] [address] [address] [address] Judd Andrade Sodium [Moles/Vol] 141 mmol/L Normal 136-145 [facility] Comment on above: Performed By: #### H TERAPN, CMP #### [facility] [address] [address] [address] Judd Andrade Urea nitrogen [Mass/Vol] 8.0 mg/dL Normal 7.0-18.0 [facility] Comment on above: Performed By: #### H TERAPN, CMP #### [facility] [address] [address] [address] Judd Andrade Urea nitrogen/Creatinine [Mass ratio] 13.6 mg/mg Normal [facility] Comment on above: Performed By: #### H TERAPN, CMP #### [facility] [address] [address] [address] Judd Andrade TROPONIN, HIGH SENSITIVITYon 06-03-2022 HSTROP <4.0 Normal 4.0-51.3 [facility] Comment on above: Result Comment: CUT- OFF POINTS HAVE BEEN ESTABLISHED BASED ON THE FOURTH UNIVERSAL DEFINITIONS OF MYOCARDIAL INFARCTION. THE UPPER REFERENCE LIMIT (URL) OF TROPONIN, DEFINED THE 99TH PERCENTILE OF cTnI DISTRIBUTION IN A REFERENCE POPULATION, HAS BEEN CONFIRMED THE DECISION THRESHOLD FOR MA DIAGNOSIS. Performed By: #### H DEB, CMP #### [facility] [address] [place] [address] Dr. Judd Andrade XR CHEST 2 Von [...] by: LINDA RHODES Date: 2022-06-03 12:15 Normal [facility] Covid-19 PCR (CVDTB)on SARS-CoV-2 (COVID-19) RNA JOLLY+probe Ql (Unsp spec) Not detected Normal NOT DETECTED [facility] Comment on above: Result Comment: This test is not yet approved or cleared by the [place] FDA. When there are no FDA-approved or cleared tests available, and other criteria are met, FDA can make tests available under an emergency access mechanism called an Emergency Use Authorization (EUA). The EUA for this test is supported by the [place] of Health and Human Service's (HHS's) declaration [...] CMP #### [facility] [address] [address] [address] Judd Andrade INFLUENZA A [facility] Normal [facility] Comment on above: Result Comment: Nega tive for Flu A protein angiten. Infection due to Flu A cannot be ruled out. Flu A angiten in the sample may be below the detection limit of the test. Performed By: #### H DEB, CMP #### [facility] [address] [address] [address] Judd And[facility] BEL[facility] Normal [facility] Comment on above: Result Comment: Nega tive for Flu B protein antigen. Infection due to Flu B cannot be ruled out. Flu B antigen in the sample may be below the detection limit of the test. Performed By: #### H DEB, CMP #### [facility] [address] [address] [address] Judd Andrade INFLUENZA A AG Negative Normal NEGATIVE SEE COMMENT [facility] Comment on above: Performed By: #### H STROPN, CMP #### [facility] [address] [place], [place] [address] Dr. Judd Andrade INFLUENZA B AG Negative Normal NEGATIVE SEE COMMENT [facility] Comment on above: Performed By: #### H STROPN, CMP #### [facility] [address] [place], [place] [address] [address] US ST HEAD_NECKon 02-11-2022 [...] GABO STRONG Date: 2022-02-11 16:24 Normal [facility] MAMM SCREEN 3D SUSANA CADon 02-10-2022 MG MAMM SCREEN 3D SUSANA CAD Patient: YULIA CASTANO Exam Date: 02/10/2022 : 1965 Gender:F Ordering : DR JOHN WHITE . Admission #: [id number] Family : Order #: [id number] CLICK HERE TO VIEW EXAM RADIOLOGY REPORT [...] LOCATION: [facility] BREAST COMPOSITION: Almost entirely fatty. FINDINGS: DIAGNOSTIC [...] Normal [facility] XR CHEST 1 Von 01-15-2022 XR CHEST [...] Normal [facility] CBC AUTO DIFFon 12-30-2021 BASO # 0.0 103/ul Normal 0.0-0.1 [facility] Comment on above: Performed By: #### C BC #### [facility] [address] [place] [address] Dr. Judd Andrade Basophils/100 WBC (Bld) 0.6 % Normal 0.2-2.0 [facility] Comment on above: Performed By: #### C BC #### [facility] [address] [place] [address] Dr. Judd Andrade EO # 0.1 103/ul Normal 0.0-0.7 [facility] Comment on above: Performed By: #### C BC #### [facility] [address] [place] [address] Dr. Judd Andrade Eosinophils/100 WBC (Bld) 2.1 % Normal 0.9-7.0 [facility] Comment on above: Performed By: #### C BC #### [facility] [address] [place] [address] Dr. Judd Andrade Erythrocyte distribution width (RBC) [Ratio] 13.0 % Normal 11.0-15.0 [facility] Comment on above: Performed By: #### C BC #### [facility] [address] [place] [address] Dr. Judd Andrade Hematocrit (Bld) [Volume fraction] 41.9 % Normal 36.0-48.0 [facility] Comment on above: Performed By: #### C BC #### [facility] [address] [place] [address] Dr. Judd Andrade Hemoglobin (Bld) [Mass/Vol] 13.7 g/dL Normal 12.0-16.0 [facility] Comment on above: Performed By: #### C BC #### [facility] [address] [place] [address] Dr. Judd Andrade IG # 0.03 10e3/ul Normal 0.00-0.03 [facility] Comment on above: Performed By: #### C BC #### [facility] [address] [place] [address] Dr. Judd Andrade IG % 0.6 % Critically high 0.0-0.5 [facility] Comment on above: Performed By: #### C BC #### [facility] [address] [place] [address] Dr. Judd Andrade LYMPH # 1.9 103/ul Normal 1.2-3.8 [facility] Comment on above: Performed By: #### C BC #### [facility] [address] [place] [address] Dr. Judd Andrade Lymphocytes/100 WBC (Bld) 34.5 % Normal 20.5-60.0 [facility] Comment on above: Performed By: #### C BC #### [facility] [address] [place] [address] Dr. Judd Andrade MANUAL DIFF REQ NO Normal [facility] Comment on above: Performed By: #### C BC #### [facility] [address] [place] [address] Dr. Judd Andrade MCH (RBC) [Entitic mass] 28.5 pg Normal 26.7-34.0 [facility] Comment on above: Performed By: #### C BC #### [facility] [address] [place] [address] Dr. Judd Andrade MCHC (RBC) [Mass/Vol] 32.7 g/dL Normal 29.9-35.2 [facility] Comment on above: Performed By: #### C BC #### [facility] [address] [place] [address] Dr. Judd Andrade MCV (RBC) [Entitic vol] 87.1 fL Normal 81.0-99.0 [facility] Comment on above: Performed By: #### C BC #### [facility] [address] [place] [address] Dr. Judd Andrade MONO # 0.6 103/ul Normal 0.3-0.8 [facility] Comment on above: Performed By: #### C BC #### [facility] [address] [place] [address] Dr. Judd Andrade Monocytes/100 WBC (Bld) 10.4 % Normal 1.7-12.0 [facility] Comment on above: Performed By: #### C BC #### [facility] [address] [place] [address] Dr. Judd Andrade NEUT # 2.8 103/ul Normal 1.4-6.5 [facility] Comment on above: Performed By: #### C BC #### [facility] [address] [place] [address] Dr. Judd Andrade Neutrophils/100 WBC (Bld) 51.8 % Normal 43.0-75.0 [facility] Comment on above: Performed By: #### C BC #### [facility] [address] [place] [address] Dr. Judd Andrade Platelet mean volume (Bld) [Entitic vol] 10.5 fL Normal 9.5-13.5 [facility] Comment on above: Performed By: #### C BC #### [facility] [address] [place] [address] Dr. Judd Andrade PLT 270 103/ul Normal 150-450 [facility] Comment on above: Performed By: #### C BC #### [facility] [address] [place] [address] Dr. Judd Andrade RBC 4.81 106/ul Normal 4.20-5.40 [facility] Comment on above: Performed By: #### C BC #### [facility] [address] [place] [address] Dr. Judd Andrade WBC 5.4 103/ul Normal 4.0-11.0 [facility] Comment on above: Performed By: #### C BC #### [facility] [address] [place] [address] Dr. Judd Andrade CRPon 12-30-2021 CRP [Mass/Vol] mg/L Normal <=1.0 [facility] Comment on above: Performed By: #### C BC #### [facility] [address] [place] [address] Dr. Judd Andrade PROF 14(COMP METB)on 022 Albumin [Mass/Vol] 3.9 g/dL Normal 3.4-5.0 [facility] Comment on above: Performed By: #### C BC #### [facility] [address] [place] [address] Dr. Judd Andrade Albumin/Globulin [Mass ratio] 1.0 {ratio} Normal [facility] Comment on above: Performed By: #### C BC #### [facility] [address] [place] [address] Dr. Judd Andrade ALP [Catalytic activity/Vol] 64 U/L Normal 46-116 [facility] Comment on above: Performed By: #### C BC #### [facility] [address] [place] [address] Dr. Judd Andrade ALT [Catalytic activity/Vol] 50 U/L Normal 14-59 [facility] Comment on above: Performed By: #### C BC #### [facility] [address] [place] [address] Dr. Judd Andrade Anion gap [Moles/Vol] 11.1 mmol/L Normal [facility] Comment on above: Performed By: #### C BC #### [facility] [address] [place] [address] Dr. Judd Andrade AST [Catalytic activity/Vol] 28 U/L Normal 15-37 [facility] Comment on above: Performed By: #### C BC #### [facility] [address] [place] [address] Dr. Judd Andrade Bilirubin [Mass/Vol] 0.5 mg/dL Normal 0.2-1.0 [facility] Comment on above: Performed By: #### C BC #### [facility] [address] [place] [address] Dr. Judd Andrade Calcium [Mass/Vol] 8.9 mg/dL Normal 8.5-10.1 [facility] Comment on above: Performed By: #### C BC #### [facility] [address] [place] [address] Dr. Judd Andrade Chloride [Moles/Vol] 101 mmol/L Normal 98-107 [facility] Comment on above: Performed By: #### C BC #### [facility] [address] [place] [address] Dr. Judd Andrade CO2 [Moles/Vol] 29.4 mmol/L Normal 21.0-32.0 [facility] Comment on above: Performed By: #### C BC #### [facility] [address] [place] [address] Dr. Judd Andrade Creatinine [Mass/Vol] 0.73 mg/dL Normal 0.55-1.02 [facility] Comment on above: Performed By: #### C BC #### [facility] [address] [place] [address] Dr. Judd Andrade EGFR-AF [place] >60 Normal >=60 [facility] Comment on above: Performed By: #### C BC #### [facility] [address] [place] [address] Dr. Judd Andrade EGFR-NON AF [place] >60 Normal >=60 [facility] Comment on above: Performed By: #### C BC #### [facility] [address] [place] [address] Dr. Judd Andrade Globulin (S) [Mass/Vol] 3.8 g/dL Normal [facility] Comment on above: Performed By: #### C BC #### [facility] [address] [address] [address] Judd Andrade Glucose [Mass/Vol] 139 mg/dL Critically high 74-106 [facility] Comment on above: Performed By: #### C BC #### [facility] [address] [address] [address] Judd Andrade Potassium [Moles/Vol] 3.5 mmol/L Normal 3.5-5.1 [facility] Comment on above: Performed By: #### C BC #### [facility] [address] [address] [address] Judd Andarde Protein [Mass/Vol] 7.7 g/dL Normal 6.4-8.2 [facility] Comment on above: Performed By: #### C BC #### [facility] [address] [address] [address] Judd Andrade Sodium [Moles/Vol] 138 mmol/L Normal 136-145 [facility] Comment on above: Performed By: #### C BC #### [facility] [address] [address] [address] Judd Andrade Urea nitrogen [Mass/Vol] 12.0 mg/dL Normal 7.0-18.0 [facility] Comment on above: Performed By: #### C BC #### [facility] [address] [address] [address] Judd Andrade Urea nitrogen/Creatinine [Mass ratio] 16.4 mg/mg Normal [facility] Comment on above: Performed By: #### C BC #### [facility] [address] [address] [address] Judd Andrade XR CHEST 2 Von [...] Normal [facility] TRYPTASEon 12-27-2021 Tryptase 4.5 ug/L Normal 2.2-13.2 [facility] Comment on above: Performed By: #### C BC #### [facility] [address] [place] [address] Dr. Judd Andrade CBC AUTO DIFFon 12-23-2021 BASO # 0.0 103/ul Normal 0.0-0.1 [facility] Comment on above: Performed By: #### H STROPN, CMP #### [facility] [address] [place] [address] Dr. Judd Andrade Basophils/100 WBC (Bld) 0.7 % Normal 0.2-2.0 [facility] Comment on above: Performed By: #### H STROPN, CMP #### [facility] [address] [place] [address] Dr. Judd Andrade EO # 0.0 103/ul Normal 0.0-0.7 [facility] Comment on above: Performed By: #### H STROPN, CMP #### [facility] [address] [place] [address] Dr. Judd Andrade Eosinophils/100 WBC (Bld) 0.0 % Critically low 0.9-7.0 [facility] Comment on above: Performed By: #### H STROPN, CMP #### [facility] [address] [place] [address] Dr. Judd Andrade Erythrocyte distribution width (RBC) [Ratio] 13.2 % Normal 11.0-15.0 [facility] Comment on above: Performed By: #### H STROPN, CMP #### [facility] [address] [place] [address] Dr. Judd Andrade Hematocrit (Bld) [Volume fraction] 42.1 % Normal 36.0-48.0 [facility] Comment on above: Performed By: #### H STROPN, CMP #### [facility] [address] [place] [address] Dr. Judd Andrade Hemoglobin (Bld) [Mass/Vol] 13.7 g/dL Normal 12.0-16.0 [facility] Comment on above: Performed By: #### H STROPN, CMP #### [facility] [address] [address] [address] Judd Andrade IG # 0.01 10e3/ul Normal 0.00-0.03 [facility] Comment on above: Performed By: #### H STROPN, CMP #### [facility] [address] [address] [address] Judd Andrade IG % 0.3 % Normal 0.0-0.5 [facility] Comment on above: Performed By: #### H STROPN, CMP #### [facility] [facility] [address] [address] [address] Judd Andrade LYMPH # 0.7 103/ul Critically low 1.2-3.8 [facility] Comment on above: Performed By: #### H STROPN, CMP #### [facility] [address] [address] [address] Judd Andrade Lymphocytes/100 WBC (Bld) 24.1 % Normal 20.5-60.0 [facility] Comment on above: Performed By: #### H STROPN, CMP #### [facility] [address] [place] [address] Dr. Judd Andrade MANUAL DIFF REQ NO Normal [facility] Comment on above: Performed By: #### H STROPN, CMP #### [facility] [address] [address] [address] Judd Andrade MCH (RBC) [Entitic mass] 28.4 pg Normal 26.7-34.0 [facility] Comment on above: Performed By: #### H STROPN, CMP #### [facility] [address] [address] [address] Judd Andrade MCHC (RBC) [Mass/Vol] 32.5 g/dL Normal 29.9-35.2 [facility] Comment on above: Performed By: #### H STROPN, CMP #### [facility] [address] [address] [address] Judd Andrade MCV (RBC) [Entitic vol] 87.2 fL Normal 81.0-99.0 [facility] Comment on above: Performed By: #### H STROPN, CMP #### [facility] [address] [place] [address] Dr. Judd Andrade MONO # 0.5 103/ul Normal 0.3-0.8 [facility] Comment on above: Performed By: #### H STROPN, CMP #### [facility] [address] [place] [address] Dr. Judd Andrade Monocytes/100 WBC (Bld) 16.9 % Critically high 1.7-12.0 [facility] Comment on above: Performed By: #### H STROPN, CMP #### [facility] [address] [place] [address] Dr. Judd Andrade NEUT # 1.8 103/ul Normal 1.4-6.5 [facility] Comment on above: Performed By: #### H STROPN, CMP #### [facility] [address] [place] [address] Dr. Judd Andrade Neutrophils/100 WBC (Bld) 58.0 % Normal 43.0-75.0 [facility] Comment on above: Performed By: #### H STROPN, CMP #### [facility] [address] [place] [address] Dr. Judd Andrade Platelet mean volume (Bld) [Entitic vol] 9.9 fL Normal 9.5-13.5 [facility] Comment on above: Performed By: #### H STROPN, CMP #### [facility] [address] [place] [address] Dr. Judd Andrade PLT 210 103/ul Normal 150-450 [facility] Comment on above: Performed By: #### H STROPN, CMP #### [facility] [address] [place] [address] Dr. Judd Andrade RBC 4.83 106/ul Normal 4.20-5.40 [facility] Comment on above: Performed By: #### H STROPN, CMP #### [facility] [address] [place] [address] Dr. Judd Andrade WBC 3.1 103/ul Critically low 4.0-11.0 [facility] Comment on above: Performed By: #### H TERAPN, CMP #### [facility] [address] [place] [address] Dr. Judd Andrade IRONon 12-23-2021 Iron [Mass/Vol] 35.0 ug/dL Critically low 50.0-170.0 [facility] Comment on above: Performed By: #### C BC #### [facility] [address] [place] [address] Dr. Judd Andrade PROF 14(COMP METB)on 022 Albumin [Mass/Vol] 3.9 g/dL Normal 3.4-5.0 [facility] Comment on above: Performed By: #### C BC #### [facility] [address] [place] [address] Dr. Judd Andrade Albumin/Globulin [Mass ratio] 1.0 {ratio} Normal [facility] Comment on above: Performed By: #### C BC #### [facility] [address] [place] [address] Dr. Judd Andrade ALP [Catalytic activity/Vol] 70 U/L Normal 46-116 [facility] Comment on above: Performed By: #### C BC #### [facility] [address] [place] [address] Dr. Judd Adnrade ALT [Catalytic activity/Vol] 43 U/L Normal 14-59 [facility] Comment on above: Performed By: #### C BC #### [facility] [address] [place] [address] Dr. Judd Andrade Anion gap [Moles/Vol] 11.5 mmol/L Normal [facility] Comment on above: Performed By: #### C BC #### [facility] [address] [place] [address] Dr. Judd Andrade AST [Catalytic activity/Vol] 33 U/L Normal 15-37 [facility] Comment on above: Performed By: #### C BC #### [facility] [address] [place] [address] Dr. Judd Andrade Bilirubin [Mass/Vol] 0.3 mg/dL Normal 0.2-1.0 [facility] Comment on above: Performed By: #### C BC #### [facility] [address] [address] [address] Judd Andrade Calcium [Mass/Vol] 8.9 mg/dL Normal 8.5-10.1 [facility] Comment on above: Performed By: #### C BC #### [facility] [address] [address] [address] Judd Andrade Chloride [Moles/Vol] 101 mmol/L Normal 98-107 [facility] Comment on above: Performed By: #### C BC #### [facility] [address] [place] [address] Dr. Judd Andrade CO2 [Moles/Vol] 31.1 mmol/L Normal 21.0-32.0 [facility] Comment on above: Performed By: #### C BC #### [facility] [address] [place] [address] Dr. Judd Andrade Creatinine [Mass/Vol] 0.69 mg/dL Normal 0.55-1.02 [facility] Comment on above: Performed By: #### C BC #### [facility] [address] [place] [address] Dr. Judd Andrade EGFR-AF [place] >60 Normal >=60 [facility] Comment on above: Performed By: #### C BC #### [facility] [address] [place] [address] Dr. Judd Andrade EGFR-NON AF [place] >60 Normal >=60 [facility] Comment on above: Performed By: #### C BC #### [facility] [address] [address] [address] Judd Andrade Globulin (S) [Mass/Vol] 3.8 g/dL Normal [facility] Comment on above: Performed By: #### C BC #### [facility] [address] [place] [address] Dr. Judd Andrade Glucose [Mass/Vol] 103 mg/dL Normal 74-106 [facility] Comment on above: Performed By: #### C BC #### [facility] [address] [address] [address] Judd Andrade Potassium [Moles/Vol] 3.6 mmol/L Normal 3.5-5.1 [facility] Comment on above: Performed By: #### C BC #### [facility] [address] [address] [address] Judd Andrade Protein [Mass/Vol] 7.7 g/dL Normal 6.4-8.2 [facility] Comment on above: Performed By: #### C BC #### [facility] [address] [address] [address] Judd Andrade Sodium [Moles/Vol] 140 mmol/L Normal 136-145 [facility] Comment on above: Performed By: #### C BC #### [facility] [address] [address] [address] Judd Andrade Urea nitrogen [Mass/Vol] 11.0 mg/dL Normal 7.0-18.0 [facility] Comment on above: Performed By: #### C BC #### [facility] [address] [address] [address] Judd Andrade Urea nitrogen/Creatinine [Mass ratio] 15.9 mg/mg Normal [facility] Comment on above: Performed By: #### C BC #### [facility] [address] [address] [address] Judd Andrade PROTIMEon 12-23-2021 INR Coag (PPP) [Relative time] 1.04 {INR} Normal [facility] Comment on above: Performed By: #### H DEB, CMP #### [facility] [address] [address] [address] Judd Andrade INR GUIDELINES SEE BELOW Normal [facility] Comment on above: Result Comment: PRIETO RED INR: 2.0 - 3.0 CONDITIONS NOT LISTED BELOW 2.5 - 3.5 FOR PROSTHETIC HEART VALVE REPLACEMENT 2.5 - 3.5 RECURRENT THROMBOSIS Performed By: #### H DEB, CMP #### [facility] [address] [place] [address] Dr. Judd Andrade PT Coag (PPP) [Time] 11.2 s Normal 9.0-11.6 [facility] Comment on above: Performed By: #### H DEB, CMP #### [facility] [address] [place] [address] Dr. Judd Andrade PTTon 12-23-2021 aPTT Coag (Bld) [Time] 31.5 s Normal 22.3-36.2 [facility] Comment on above: Performed By: #### H DEB, CMP #### [facility] [address] [place] [address] Dr. Judd Andrade ER URINE PROFILEon Bilirubin Ql (U) Negative Normal NEGATIVE [facility] Comment on above: Performed By: #### H DEB, CMP #### [facility] [address] [place] [address] Dr. Judd Andrade Clarity (U) CLEAR Normal CLEAR [facility] Comment on above: Performed By: #### H DEB, CMP #### [facility] [address] [place] [address] Dr. Judd Andrade Color (U) LT. YELLOW Normal YELLOW [facility] Comment on above: Performed By: #### H DEB, CMP #### [facility] [address] [place] [address] Dr. Judd HOLBROOKRomina A micrscopic examination will be performed if indicated. Normal [facility] Comment on above: Performed By: #### H DEB, CMP #### [facility] [address] [place] [address] Dr. Judd Andrade Glucose Ql (U) Negative Normal NEGATIVE [facility] Comment on above: Performed By: #### H DEB, CMP #### [facility] [address] [place] [address] Dr. Judd Andrade Hemoglobin Ql (U) TRACE-INTACT Abnormal NEGATIVE [facility] Comment on above: Performed By: #### H DEB, CMP #### [facility] [address] [place] [address] Dr. Judd Andrade Ketones Ql (U) Negative Normal NEGATIVE [facility] Comment on above: Performed By: #### H STROPN, CMP #### [facility] [address] [place] [address] Dr. Judd Andrade LEUKOCYTES Negative Normal NEGATIVE [facility] Comment on above: Performed By: #### H STROPN, CMP #### [facility] [address] [address] [address] Judd Andrade Nitrite Ql (U) Negative Normal NEGATIVE [facility] Comment on above: Performed By: #### H STROPN, CMP #### [facility] [address] [place] [address] Dr. Judd Andrade pH (U) 6.0 [pH] Normal 5-9 [facility] Comment on above: Performed By: #### H STROPN, CMP #### [facility] [address] [place] [address] Dr. Judd Andrade SPEC GRAVITY 1.005 Normal 1.005-<=1.025 [facility] Comment on above: Performed By: #### H STROPN, CMP #### [facility] [address] [place] [address] Dr. Judd Andrade UA PROTEIN Negative Normal NEGATIVE/ TRACE [facility] Comment on above: Performed By: #### H STROPN, CMP #### [facility] [address] [place] [address] Dr. Judd Andrade UR MICRO IND INDICATED Normal [facility] Comment on above: Performed By: #### H STROPN, CMP #### [facility] [address] [place] [address] Dr. Judd Andrade Urobilinogen Qn (U) 0.2 {Carol'U}/dL Normal 0.2 - 1. 0 [facility] Comment on above: Performed By: #### H STROPN, CMP #### [facility] [address] [place] [address] Dr. Judd Andrade URINE MICROSCOPIC ONLYon BACTERIA NONE SEEN Normal NONE SEEN [facility] Comment on above: Performed By: #### H STROPN, CMP #### [facility] [address] [address] [address] Judd Andrade Bacteria identified Cx Nom (U) NOT INDICATED Normal [facility] Comment on above: Performed By: #### H STROPN, CMP #### [facility] [address] [address] [address] Jdud Andrade CAST NONE SEEN Normal NONE SEEN [facility] Comment on above: Performed By: #### H STROPN, CMP #### [facility] [address] [address] [address] Judd Andrade Crystals LM Nom (Urine sed) NONE SEEN Normal NONE SEEN [facility] Comment on above: Performed By: #### H STROPN, CMP #### [facility] [address] [address] [address] Judd Andrade Epithelial cells LM Ql (Urine sed) FEW Abnormal NONE SEEN /RARE [facility] Comment on above: Performed By: #### H STROPN, CMP #### [facility] [address] [address] [address] Judd Andrade MUCOUS NONE SEEN Normal NONE SEEN [facility] Comment on above: Performed By: #### H STROPN, CMP #### [facility] [address] [address] [address] Judd Andrade RBC 0-2 Normal 0-2 [facility] Comment on above: Performed By: #### H STROPN, CMP #### [facility] [address] [address] [address] Judd Andrade WBC NONE SEEN Normal NONE SEEN [facility] Comment on above: Performed By: #### H STROPN, CMP #### [facility] [address] [place] [address] Dr. Judd Andrade Encounters Encounter Date Encounter Type Care Provider Facility Start: 12-30-2023 ambulatory Bessie Gogn Facility :[facility] Start: 12-21-2023 End: 12-21-2023 ambulatory NATALIE TINSLEY Not Available Start: 10-04-2023 End: 10-04-2023 ambulatory KATIE SOW Not Available Start: 06-30-2023 End: 06-30-2023 ambulatory KATIE SOW [...] dy response examination DR JOHN WHITE . [facility] Start: 06-26-2022 End: 06-27-[address] [...] ty:H1 Payers Date Payer Category Payer Unknown [id number] 2.16.84 0.1.811081.3.579.2.593 1965 Unknown [id number] 2.16.84 0.1.469804.3.579.2.593 1965 Unknown [id number] 2.16.84 0.1.475454.3.579.2.59 1965 Unknown [id number] 2.16.84 0.1.224224.3.579.2.593 1965 Unknown [id number] 2.16.84 0.1.220114.3.579.2.59 1965 Unknown [id number] 2.16.84 0.1.183366.3.579.2.593 1965 Unknown [id number] 2.16.84 0.1.064453.3.579.2.59 1965 Unknown [id number] 2.16.84 0.1.398918.3.579.2.593 1965 Unknown [id number] 2.16.84 0.1.991828.3.579.2.593 1965 Unknown [id number] 2.16.84 0.1.440539.3.579.2.593 1965 Unknown [id number] 2.16.84 0.1.512937.3.579.2.593 1965 Unknown [id number] 2.16.84 0.1.812828.3.579.2.593 1965 Unknown [id number] 2.16.84 0.1.405529.3.579.2.593 1965 Unknown [id number] 2.16.84 0.1.178214.3.579.2.593 1965 Unknown [id number] 2.16.84 0.1.329666.3.579.2.593 1965 Unknown [id number] 2.16.84 0.1.507067.3.579.2.593 1965 Unknown [id number] 2.16.84 0.1.398426.3.579.2.593 1965 Unknown [id number] 2.16.84 0.1.187691.3.579.2.593 1965 Unknown [id number] 2.16.84 0.1.370474.3.579.2.593 1965 Unknown [id number] 2.16.84 0.1.799190.3.579.2.593 1965 Unknown [id number] 2.16.84 0.1.732105.3.579.2.593 1965 Unknown [id number] 2.16.84 0.1.618790.3.579.2.593 1965 Unknown [id number] 2.16.84 0.1.842820.3.579.2.593 1965 Unknown [id number] 2.16.84 0.1.047100.3.579.2.593 1965 Unknown [id number] 2.16.8 40.1.193154.3.579.2.727 1965 Unknown [id number] 2.16.84 0.1.062042.3.579.2.1259 1965 Unknown [id number] 2.16.84 0.1.910747.3.579.2.1258 1965 Unknown [id number] 2.16.84 0.1.761675.3.579.2.1258 1965 Unknown [id number] 2.16.84 0.1.212124.3.579.2.1258 1965 Unknown [id number] 2.16.840 .1.346864.3.579.2.9 1959 Self-pay [id number] 1959 Unknown [id number] 1959 Unknown [id number] Summary Purpose Family History No Family History Records FoundNo Family History Records FoundNo Family History Records Found Advance Directives No Advanced Directives Records FoundNo Advanced Directives Records FoundNo Advanced Directives Records Found Additional Source Comments INFORMATION SOURCE (unrecogn ized section and content) DATE CREATED AUTHOR 10/02/2022 [facility] DATE CREATED AUTHOR AUTHOR'S ORGANIZ ATION 12/05/2023 [facility] DATE CREATED AUTHOR AUTHOR'S ORGANIZ ATION 12/23/2023 [facility] FOR RECORDS PERTAINING TO PATIENTS WHO ARE [...] BE BASED ON THE PRIMARY CLINICAL RECORDS. [facility] [employer] provides no warranty or guarantee of the accuracy or completeness of information in this document.
[2023-12-28 16:10] LABS: Basophils Absolute Auto 0.1 10^3/uL (0.0-0.1); Basophils Percent Auto 1.1 % (0.2-2.0); Eosinophils Absolute Auto 0.1 10^3/uL (0.0-0.7); Eosinophils Percent Auto 1.4 % (0.9-7.0); Hematocrit 40.6 % (36.0-48.0); Hemoglobin 13.5 g/dL (12.0-16.0); Immature Granulocytes Abs Auto 0.02 10^3/uL (0.00-0.03); Immature Granulocytes Pct Auto 0.2 % (0.0-0.5); Lymphocytes Absolute Auto 1.9 10^3/uL (1.2-3.8); Lymphocytes Percent Auto 23.6 % (20.5-60.0); Mean Corpuscular HGB Conc 33.3 g/dL (29.9-35.2); Mean Corpuscular Hemoglobin 29.7 pg (26.7-34.0); Mean Corpuscular Volume 89.4 fL (81.0-99.0); Mean Platelet Volume 9.6 fL (9.5-13.5); Monocytes Absolute Auto 0.8 10^3/uL (0.3-0.8); Monocytes Percent Auto 9.6 % (1.7-12.0); Neutrophils Absolute Auto 5.2 10^3/uL (1.4-6.5); Neutrophils Percent Auto 64.1 % (43.0-75.0); Platelet Count 290 10^3/uL (150-450); Red Blood Count 4.54 10^6/uL (4.20-5.40); Red Cell Distribution Width 13.3 % (11.0-15.0); White Blood Count 8.1 10^3/uL (4.0-11.0)
--- OUTSIDE RECORDS SUMMARY | 2023-12-28 16:15 | XMS_ITS | CCD ---
Author Organization [facility] Care Team Providers Care Lace Inspector Name Role Phone ABELINOY ., DR LOPEZ [...] Unavailable JUANJOSE ., DR WILSON Attending Unavailable [place], DR ELLYN Dougherty Consulting Unavailable HOY ., [...] KAREN VALDEZ Consulting Unavailable HOY ., DR LOEPZ Consulting Unavailable HOY ., DR LOPEZ Attending [...] Attending Unavailable VALE HI Attending Unavailable RALF RENDON Referring Unavailable KATIE SOW Attending Unavailable KATIE SOW Attending Unavailable KATIE SOW Attending Unavailable NATALIE TINSLEY Attending Unavailable Allergies Allergy Classification Reported Allergen(s) Allergy Type Date of Onset Reaction(s) Facility (1 source) Azithromycin Drug Allergy 2 [facility] Repository (2 sources) Imipramine Drug Allergy 3 [facility] Rep[facility] (2 sources) Sulfonamides (Antibiotic) Drug allergy (disorder) 3 [facility] Rep[facility] (2 sources) E.E.S. Drug allergy (disorder) 3 [facility] Repository (1 source) Erythromycin; Translations: [erythromycin] Drug Allergy [facility] Repository (1 source) Imipramine; Translations: [Imipramine Hydrochloride] Drug Allergy [facility] Repository (1 source) Sulfonamides (Antibiotic); Translations: [sulfa drugs] Propensity to adverse reactions (disorder) [facility] Repository Problems Active Problems Problem [...] 06-05-2022 Episodic Other aftercare (4 sources) Other usp (current) drug therapy; Translations: [OTH PENITENTIARY CURRENT DRUG THERAPY] Onset: 12-23-2021 Episodic Other [...] : DR KATIE SOW . Admission #: [id number] Family : Order #: [id number] CLICK HERE TO VIEW EXAM RADIOLOGY REPORT [...] breast cancer at age 40. LOCATION: [facility] BREAST COMPOSITION: Almost entirely fatty. FINDINGS: [...] MD on 09/22/2022 at 15:03 Normal [facility] US BREAST RIGHT LIMITEDon US BREAST RIGHT LIMITED Patient: YULIA CASTANO Exam Date: 09/22/2022 : 1965 Gender:F Ordering : DR KATIE SOW . Admission #: [id number] Family : Order #: [id number] CLICK HERE TO VIEW EXAM RADIOLOGY REPORT [...] breast cancer at age 40. LOCATION: [facility] BREAST COMPOSITION: Almost entirely fatty. FINDINGS: [...] Castaneda MD on 09/22/2022 at 15:03 Normal [facility] US ST HEAD_NECKon 08-31-2022 US [...] by: GABO STRONG Date: 2022-08-31 08:09 Normal [facility] US PELVIS AND TRANSVAGon US [...] by: GABO STRONG Date: 2022-07-29 06:32 Normal [facility] INSULINon 07-04-2022 Insulin 6.2 uIU/mL Normal 2.6-24.9 [facility] Comment on above: Performed By: #### H STROPN, CMP #### [facility] [address] [place] [address] Dr. Judd Andrade CBC AUTO DIFFon 07-03-2022 BASO # 0.0 103/ul Normal 0.0-0.1 [facility] Comment on above: Performed By: #### C BC #### [facility] [address] [place] [address] Dr. Judd Andrade Basophils/100 WBC (Bld) 1.1 % Normal 0.2-2.0 [facility] Comment on above: Performed By: #### C BC #### [facility] [address] [place] [address] Dr. Judd Andrade EO # 0.1 103/ul Normal 0.0-0.7 [facility] Comment on above: Performed By: #### C BC #### [facility] [address] [place] [address] Dr. Judd Andrade Eosinophils/100 WBC (Bld) 3.6 % Normal 0.9-7.0 [facility] Comment on above: Performed By: #### C BC #### [facility] [address] [place] [address] Dr. Judd Andrade Erythrocyte distribution width (RBC) [Ratio] 13.6 % Normal 11.0-15.0 [facility] Comment on above: Performed By: #### C BC #### [facility] [address] [place] [address] Dr. Judd Andrade Hematocrit (Bld) [Volume fraction] 41.8 % Normal 36.0-48.0 [facility] Comment on above: Performed By: #### C BC #### [facility] [address] [place] [address] Dr. Judd Andrade Hemoglobin (Bld) [Mass/Vol] 13.5 g/dL Normal 12.0-16.0 [facility] Comment on above: Performed By: #### C BC #### [facility] [address] [place] [address] Dr. Judd Andrade IG # 0.01 10e3/ul Normal 0.00-0.03 [facility] Comment on above: Performed By: #### C BC #### [facility] [address] [place] [address] Dr. Judd Andrade IG % 0.3 % Normal 0.0-0.5 [facility] Comment on above: Performed By: #### C BC #### [facility] [address] [place] [address] Dr. Judd Andrade LYMPH # 1.4 103/ul Normal 1.2-3.8 [facility] Comment on above: Performed By: #### C BC #### [facility] [address] [place] [address] Dr. Judd Andrade Lymphocytes/100 WBC (Bld) 38.4 % Normal 20.5-60.0 [facility] Comment on above: Performed By: #### C BC #### [facility] [address] [place] [address] Dr. Judd Andrade MANUAL DIFF REQ NO Normal [facility] Comment on above: Performed By: #### C BC #### [facility] [address] [place] [address] Dr. Judd Andrade MCH (RBC) [Entitic mass] 28.2 pg Normal 26.7-34.0 [facility] Comment on above: Performed By: #### C BC #### [facility] [address] [place] [address] Dr. Judd Andrade MCHC (RBC) [Mass/Vol] 32.3 g/dL Normal 29.9-35.2 [facility] Comment on above: Performed By: #### C BC #### [facility] [address] [place] [address] Dr. Judd Andrade MCV (RBC) [Entitic vol] 87.4 fL Normal 81.0-99.0 [facility] Comment on above: Performed By: #### C BC #### [facility] [address] [place] [address] Dr. Judd Andrade MONO # 0.4 103/ul Normal 0.3-0.8 [facility] Comment on above: Performed By: #### C BC #### [facility] [address] [place] [address] Dr. Judd Andrade Monocytes/100 WBC (Bld) 10.4 % Normal 1.7-12.0 [facility] Comment on above: Performed By: #### C BC #### [facility] [address] [place] [address] Dr. Judd Andrade NEUT # 1.7 103/ul Normal 1.4-6.5 [facility] Comment on above: Performed By: #### C BC #### [facility] [address] [place] [address] Dr. Judd Andrade Neutrophils/100 WBC (Bld) 46.2 % Normal 43.0-75.0 [facility] Comment on above: Performed By: #### C BC #### [facility] [address] [place] [address] Dr. Judd Andrade Platelet mean volume (Bld) [Entitic vol] 9.6 fL Normal 9.5-13.5 [facility] Comment on above: Performed By: #### C BC #### [facility] [address] [place] [address] Dr. Judd Andrade PLT 246 103/ul Normal 150-450 [facility] Comment on above: Performed By: #### C BC #### [facility] [address] [place] [address] Dr. Judd Andrade RBC 4.78 106/ul Normal 4.20-5.40 [facility] Comment on above: Performed By: #### C BC #### [facility] [address] [place] [address] Dr. Judd Andrade WBC 3.7 103/ul Critically low 4.0-11.0 [facility] Comment on above: Performed By: #### C BC #### [facility] [address] [place] [address] Dr. Judd Andrade FREE THYROXINE INDEX T7on FTI 3.20 Normal 1.30-4.50 [facility] Comment on above: Performed By: #### T 7, LIPID, TSH, CMP #### [facility] [address] [address] [address] Judd Andrade T3U 36.0 % Normal 30.0-39.0 [facility] Comment on above: Performed By: #### T 7, LIPID, TSH, CMP #### [facility] [address] [address] [address] Judd Andrade T4 [Mass/Vol] 8.90 ug/dL Normal 4.80-13.90 [facility] Comment on above: Performed By: #### T 7, LIPID, TSH, CMP #### [facility] [address] [address] [address] Judd Andrade GLYCOHEMOGLOBIN A1Con 2022 ADA RECOMMENDATION SEE BELOW Normal [facility] Comment on above: Result Comment: ADA RECOMMENDED LIMIT 4.0 - 6.0 ADA THERAPEUTIC TARGET < 7.0 ACTION SUGGESTED > 7.0 Performed By: #### C BC #### [facility] [address] [address] [address] Judd Andrade Glucose [Mass/Vol] 120 mg/dL Normal [facility] Comment on above: Performed By: #### C BC #### [facility] [address] [place] [address] Dr. Judd Andrade HbA1c (Bld) [Mass fraction] 5.8 % Normal 4.5-6.2 [facility] Comment on above: Performed By: #### C BC #### [facility] [address] [place] [address] Dr. Judd Andrade IRONon 07-03-2022 Iron [Mass/Vol] 67.0 ug/dL Normal 50.0-170.[address] [facility] Comment on above: Performed By: #### V ITAD, IRON #### [facility] [address] [place] [address] Dr. Judd Andrade LIPID PROFILEon 07-03-2022 CHOL-HDL RATIO NORM SEE BELOW Normal [facility] Comment on above: Result Comment: 3.3 - 4.4 LOW RISK 4.4 - 7.1 AVERAGE RISK 7.1 - 11.0 MODERATE RISK >11.0 HIGH RISK Performed By: #### T 7, LIPID, TSH, CMP #### [facility] [address] [place] [address] Dr. Judd Andrade Cholesterol [Mass/Vol] 216 mg/dL Critically high <=200 [facility] Comment on above: Performed By: #### T 7, LIPID, TSH, CMP #### [facility] [address] [place] [address] Dr. Judd Andrade Cholesterol in HDL [Mass/Vol] 87 mg/dL Critically high 40-60 [facility] Comment on above: Performed By: #### T 7, LIPID, TSH, CMP #### [facility] [address] [place] [address] Dr. Judd Andrade Cholesterol in LDL [Mass/Vol] 124.2 mg/dL Normal [facility] Comment on above: Performed By: #### T 7, LIPID, TSH, CMP #### [facility] [address] [place] [address] Dr. Judd Andrade Cholesterol.total/Ch olesterol in HDL [Mass ratio] 2.5 {ratio} Normal [facility] Comment on above: Performed By: #### T 7, LIPID, TSH, CMP #### [facility] [address] [place] [address] Dr. Judd Andrade HDL NORMAL > or = 60 mg/dl - LO W CARDIOVASCULAR RISK <40 mg/dl - HIGH CARDIOVASCULAR RISK Normal [facility] Comment on above: Performed By: #### T 7, LIPID, TSH, CMP #### [facility] [address] [place] [address] Dr. Judd Andrade LDL CALC NORMAL SEE BELOW Normal [facility] Comment on above: Result Comment: <100 mg/dl OPTIMAL 100 - 129 mg/dl NEAR OR ABOVE OPTIMAL 130 - 159 mg/dl BORDERLINE HIGH 160 - 189 mg/dl HIGH >190 mg/dl VERY HIGH Performed By: #### T 7, LIPID, TSH, CMP #### [facility] [address] [place] [address] Dr. Judd Andrade Triglyceride [Mass/Vol] 24 mg/dL Normal <=150 [facility] Comment on above: Performed By: #### T 7, LIPID, TSH, CMP #### [facility] [address] [address] [address] Judd Andrade VLDL CALC 4.8 mg/dL Normal [facility] Comment on above: Performed By: #### T 7, LIPID, TSH, CMP #### [facility] [address] [address] [address] Judd Andrade PROF 14(COMP METB)on 023 Albumin [Mass/Vol] 4.0 g/dL Normal 3.4-5.0 [facility] Comment on above: Performed By: #### T 7, LIPID, TSH, CMP #### [facility] [address] [place] [address] Dr. Judd Andrade Albumin/Globulin [Mass ratio] 1.1 {ratio} Normal [facility] Comment on above: Performed By: #### T 7, LIPID, TSH, CMP #### [facility] [address] [place] [address] Dr. Judd Andrade ALP [Catalytic activity/Vol] 78 U/L Normal 46-116 [facility] Comment on above: Performed By: #### T 7, LIPID, TSH, CMP #### [facility] [address] [place] [address] Dr. Judd Andrade ALT [Catalytic activity/Vol] 29 U/L Normal 14-59 [facility] Comment on above: Performed By: #### T 7, LIPID, TSH, CMP #### [facility] [address] [address] [address] Judd Andrade Anion gap [Moles/Vol] 5.6 mmol/L Normal [facility] Comment on above: Performed By: #### T 7, LIPID, TSH, CMP #### [facility] [address] [place] [address] Dr. Judd Andrade AST [Catalytic activity/Vol] 23 U/L Normal 15-37 [facility] Comment on above: Performed By: #### T 7, LIPID, TSH, CMP #### [facility] [address] [place] [address] Dr. Judd Andrade Bilirubin [Mass/Vol] 0.5 mg/dL Normal 0.2-1.0 [facility] Comment on above: Performed By: #### T 7, LIPID, TSH, CMP #### [facility] [address] [place] [address] Dr. Judd Andrade Calcium [Mass/Vol] 8.9 mg/dL Normal 8.5-10.1 [facility] Comment on above: Performed By: #### T 7, LIPID, TSH, CMP #### [facility] [address] [place] [address] Dr. Judd Andrade Chloride [Moles/Vol] 105 mmol/L Normal 98-107 [facility] Comment on above: Performed By: #### T 7, LIPID, TSH, CMP #### [facility] [address] [place] [address] Dr. Judd Andrade CO2 [Moles/Vol] 32.0 mmol/L Normal 21.0-32.0 [facility] Comment on above: Performed By: #### T 7, LIPID, TSH, CMP #### [facility] [address] [place] [address] Dr. Judd Andrade Creatinine [Mass/Vol] 0.52 mg/dL Critically low 0.55-1.02 [facility] Comment on above: Performed By: #### T 7, LIPID, TSH, CMP #### [facility] [address] [place] [address] Dr. Judd Andrade EGFR-AF PAKISTANI >60 Normal >=60 [facility] Comment on above: Performed By: #### T 7, LIPID, TSH, CMP #### [facility] [address] [place] [address] Dr. Judd Andrade EGFR-NON AF PAKISTANI >60 Normal >=60 [facility] Comment on above: Performed By: #### T 7, LIPID, TSH, CMP #### [facility] [address] [place] [address] Dr. Judd Andrade Globulin (S) [Mass/Vol] 3.6 g/dL Normal [facility] Comment on above: Performed By: #### T 7, LIPID, TSH, CMP #### [facility] [address] [address] [address] Judd Andrade Glucose [Mass/Vol] 89 mg/dL Normal 74-106 [facility] Comment on above: Performed By: #### T 7, LIPID, TSH, CMP #### [facility] [address] [place] [address] Dr. Judd Andrade Potassium [Moles/Vol] 4.2 mmol/L Normal 3.5-5.1 [facility] Comment on above: Performed By: #### T 7, LIPID, TSH, CMP #### [facility] [address] [place] [address] Dr. Judd Andrade Protein [Mass/Vol] 7.6 g/dL Normal 6.4-8.2 [facility] Comment on above: Performed By: #### T 7, LIPID, TSH, CMP #### [facility] [address] [place] [address] Dr. Jdud Andrade Sodium [Moles/Vol] 139 mmol/L Normal 136-145 [facility] Comment on above: Performed By: #### T 7, LIPID, TSH, CMP #### [facility] [address] [place] [address] Dr. Judd Andrade Urea nitrogen [Mass/Vol] 11.0 mg/dL Normal 7.0-18.0 [facility] Comment on above: Performed By: #### T 7, LIPID, TSH, CMP #### [facility] [address] [place] [address] Dr. Judd Andrade Urea nitrogen/Creatinine [Mass ratio] 21.2 mg/mg Normal [facility] Comment on above: Performed By: #### T 7, LIPID, TSH, CMP #### [facility] [address] [place] [address] Dr. Judd Andrade TSHon 07-03-2022 TSH 1.037 uIU/mL Normal 0.358-3.[address] [facility] Comment on above: Performed By: #### T 7, LIPID, TSH, CMP #### [facility] [address] [place] [address] Dr. Judd Andrade VITAMIN D 25 OHon 07-03-2022 VIT D 25-OH 32.8 ng/mL Normal [facility] Comment on above: Performed By: #### V CARMELO, IRON #### [facility] [address] [place] [address] Dr. Judd Andrade VIT D RANGES SEE BELOW Normal [facility] Comment on above: Result Comment: <20 ng/mL Vit D deficient 20 - <30 ng/mL Vit D insufficient 30 - 100 ng/mL Vit D sufficient >100 ng/mL Potential Toxicity Performed By: #### V CARMELO, IRON #### [facility] [address] [place] [address] Dr. Judd Andrade BORDETELLA PERTUSSIS AB IGGo n 06-30-2022 B pertussis IgG Ab 3.88 index Invalid Interpretation Code 0.00-0.94 [facility] Comment on above: Result Comment: Clie nt Requested Flag Negative <0.95 Equivocal 0.95 - 1.04 Positive >1.04 Performed By: #### C BC #### [facility] [address] [place] [address] Dr. Judd Andrade BORDETELLA PERTUSSIS AB IGMo n 06-30-2022 B pertussis IgM Ab <1.0 Normal 0.0-0.9 [facility] Comment on above: Result Comment: Nega tive <1.0 Borderline 1.0 - 1.1 Positive >1.1 Performed By: #### H STROPN, CMP #### [facility] [address] [place] [address] Dr. Judd Andrade NLYIM-1-SOYRVUEDAZEkp 2022 Ojmty-8-Vawsjlnjbls, Serum 158 mg/dL Normal 101-187 [facility] Comment on above: Performed By: #### C BC #### [facility] [address] [place] [address] Dr. Judd Andrade CBC AUTO DIFFon 06-03-2022 BASO # 0.0 103/ul Normal 0.0-0.1 [facility] Comment on above: Performed By: #### H STROPN, CMP #### [facility] [address] [place] [address] Dr. Judd Andrade Basophils/100 WBC (Bld) 0.6 % Normal 0.2-2.0 [facility] Comment on above: Performed By: #### H STROPN, CMP #### [facility] [address] [place] [address] Dr. Judd Andrade EO # 0.0 103/ul Normal 0.0-0.7 [facility] Comment on above: Performed By: #### H STROPN, CMP #### [facility] [address] [place] [address] Dr. Judd Andrade Eosinophils/100 WBC (Bld) 0.6 % Critically low 0.9-7.0 [facility] Comment on above: Performed By: #### H STROPN, CMP #### [facility] [address] [place] [address] Dr. Judd Andrade Erythrocyte distribution width (RBC) [Ratio] 13.5 % Normal 11.0-15.0 [facility] Comment on above: Performed By: #### H STROPN, CMP #### [facility] [address] [place] [address] Dr. Judd Andrade Hematocrit (Bld) [Volume fraction] 42.4 % Normal 36.0-48.0 [facility] Comment on above: Performed By: #### H STROPN, CMP #### [facility] [address] [place] [address] Dr. Judd Andrade Hemoglobin (Bld) [Mass/Vol] 13.4 g/dL Normal 12.0-16.0 [facility] Comment on above: Performed By: #### H STROPN, CMP #### [facility] [address] [place] [address] Dr. Judd Andrade IG # 0.01 10e3/ul Normal 0.00-0.03 [facility] Comment on above: Performed By: #### H STROPN, CMP #### [facility] [address] [place], [place] [id number] Dr. Judd Andrade IG % 0.2 % Normal 0.0-0.5 [facility] Comment on above: Performed By: #### H TERAPN, CMP #### [facility] [address] [address] [address] Judd Andrade LYMPH # 1.1 103/ul Critically low 1.2-3.8 [facility] Comment on above: Performed By: #### H TERAPN, CMP #### [facility] [address] [address] [address] Judd Andrade Lymphocytes/100 WBC (Bld) 23.5 % Normal 20.5-60.0 [facility] Comment on above: Performed By: #### H DEB, CMP #### [facility] [address] [place] [address] Dr. Judd Andrade MANUAL DIFF REQ NO Normal [facility] Comment on above: Performed By: #### H DEB, CMP #### [facility] [address] [place] [address] Dr. Judd Andrade MCH (RBC) [Entitic mass] 28.9 pg Normal 26.7-34.0 [facility] Comment on above: Performed By: #### H DEB, CMP #### [facility] [address] [place] [address] Dr. Judd Andrade MCHC (RBC) [Mass/Vol] 31.6 g/dL Normal 29.9-35.2 [facility] Comment on above: Performed By: #### H TERAPN, CMP #### [facility] [address] [place] [address] Dr. Judd Andrade MCV (RBC) [Entitic vol] 91.6 fL Normal 81.0-99.0 [facility] Comment on above: Performed By: #### H TERAPN, CMP #### [facility] [address] [place] [address] Dr. Judd Andrade MONO # 0.8 103/ul Normal 0.3-0.8 [facility] Comment on above: Performed By: #### H TERAPN, CMP #### [facility] [address] [address] [address] Judd Andrade Monocytes/100 WBC (Bld) 16.5 % Critically high 1.7-12.0 [facility] Comment on above: Performed By: #### H STROPN, CMP #### [facility] [address] [place] [address] Dr. Judd Andrade NEUT # 2.7 103/ul Normal 1.4-6.5 [facility] Comment on above: Performed By: #### H STROPN, CMP #### [facility] [address] [place] [address] Dr. Judd Andrade Neutrophils/100 WBC (Bld) 58.6 % Normal 43.0-75.0 [facility] Comment on above: Performed By: #### H DEB, CMP #### [facility] [address] [place] [address] Dr. Judd Andrade Platelet mean volume (Bld) [Entitic vol] 9.8 fL Normal 9.5-13.5 [facility] Comment on above: Performed By: #### H DEB, CMP #### [facility] [address] [place] [address] Dr. Judd Andraed PLT 252 103/ul Normal 150-450 [facility] Comment on above: Performed By: #### H DEB, CMP #### [facility] [address] [place] [address] Dr. Judd Andrade RBC 4.63 106/ul Normal 4.20-5.40 [facility] Comment on above: Performed By: #### H STROPN, CMP #### [facility] [address] [place] [address] Dr. Judd Andrade WBC 4.7 103/ul Normal 4.0-11.0 [facility] Comment on above: Performed By: #### H TERAPN, CMP #### [facility] [address] [place] [address] Dr. Judd Andrade PROF 14(COMP METB)on 023 Albumin [Mass/Vol] 4.0 g/dL Normal 3.4-5.0 [facility] Comment on above: Performed By: #### H STROPN, CMP #### [facility] [address] [address] [address] Judd Andrade Albumin/Globulin [Mass ratio] 1.0 {ratio} Normal [facility] Comment on above: Performed By: #### H STROPN, CMP #### [facility] [address] [address] [address] Judd Andrade ALP [Catalytic activity/Vol] 77 U/L Normal 46-116 [facility] Comment on above: Performed By: #### H STROPN, CMP #### [facility] [address] [address] [address] Judd Andrade ALT [Catalytic activity/Vol] 33 U/L Normal 14-59 [facility] Comment on above: Performed By: #### H STROPN, CMP #### [facility] [address] [address] [address] Judd Andrade Anion gap [Moles/Vol] 8.0 mmol/L Normal [facility] Comment on above: Performed By: #### H STROPN, CMP #### [facility] [address] [address] [address] Judd Andrade AST [Catalytic activity/Vol] 28 U/L Normal 15-37 [facility] Comment on above: Performed By: #### H STROPN, CMP #### [facility] [address] [address] [address] Judd Andrade Bilirubin [Mass/Vol] 0.6 mg/dL Normal 0.2-1.0 [facility] Comment on above: Performed By: #### H STROPN, CMP #### [facility] [address] [address] [address] Judd Andrade Calcium [Mass/Vol] 9.3 mg/dL Normal 8.5-10.1 [facility] Comment on above: Performed By: #### H STROPN, CMP #### [facility] [address] [address] [address] Judd Andrade Chloride [Moles/Vol] 103 mmol/L Normal 98-107 [facility] Comment on above: Performed By: #### H STROPN, CMP #### [facility] [address] [address] [address] Judd Andrade CO2 [Moles/Vol] 33.6 mmol/L Critically high 21.0-32.0 [facility] Comment on above: Performed By: #### H STROPN, CMP #### [facility] [address] [address] [address] Judd Andrade Creatinine [Mass/Vol] 0.59 mg/dL Normal 0.55-1.02 [facility] Comment on above: Performed By: #### H STROPN, CMP #### [facility] [address] [address] [address] Judd Andrade EGFR-AF PAKISTANI >60 Normal >=60 [facility] Comment on above: Performed By: #### H STROPN, CMP #### [facility] [address] [address] [address] Judd Andrade EGFR-NON AF PAKISTANI >60 Normal >=60 [facility] Comment on above: Performed By: #### H STROPN, CMP #### [facility] [address] [address] [address] Judd Andrade Globulin (S) [Mass/Vol] 4.0 g/dL Normal [facility] Comment on above: Performed By: #### H STROPN, CMP #### [facility] [address] [address] [address] Judd Andrade Glucose [Mass/Vol] 130 mg/dL Critically high 74-106 [facility] Comment on above: Performed By: #### H STROPN, CMP #### [facility] [address] [address] [address] Judd Andrade Potassium [Moles/Vol] 3.6 mmol/L Normal 3.5-5.1 [facility] Comment on above: Performed By: #### H STROPN, CMP #### [facility] [address] [address] [address] Judd Andrade Protein [Mass/Vol] 8.0 g/dL Normal 6.4-8.2 [facility] Comment on above: Performed By: #### H STROPN, CMP #### [facility] [address] [address] [address] Judd Andrade Sodium [Moles/Vol] 141 mmol/L Normal 136-145 [facility] Comment on above: Performed By: #### H TERAPN, CMP #### [facility] [address] [address] [address] Judd Andrade Urea nitrogen [Mass/Vol] 8.0 mg/dL Normal 7.0-18.0 [facility] Comment on above: Performed By: #### H TERAPN, CMP #### [facility] [address] [address] [address] Judd Andrade Urea nitrogen/Creatinine [Mass ratio] 13.6 mg/mg Normal [facility] Comment on above: Performed By: #### H TERAPN, CMP #### [facility] [address] [address] [address] Judd Andrade TROPONIN, HIGH SENSITIVITYon 06-03-2022 HSTROP <4.0 Normal 4.0-51.3 [facility] Comment on above: Result Comment: CUT- OFF POINTS HAVE BEEN ESTABLISHED BASED ON THE FOURTH UNIVERSAL DEFINITIONS OF MYOCARDIAL INFARCTION. THE UPPER REFERENCE LIMIT (URL) OF TROPONIN, DEFINED THE 99TH PERCENTILE OF cTnI DISTRIBUTION IN A REFERENCE POPULATION, HAS BEEN CONFIRMED THE DECISION THRESHOLD FOR UT DIAGNOSIS. Performed By: #### H DEB, CMP #### [facility] [address] [place] [address] Dr. Judd Andrade XR CHEST 2 Von [...] by: LINDA RHODES Date: 2022-06-03 12:15 Normal [facility] Covid-19 PCR (CVDTB)on SARS-CoV-2 (COVID-19) RNA JOLLY+probe Ql (Unsp spec) Not detected Normal NOT DETECTED [facility] Comment on above: Result Comment: This test is not yet approved or cleared by the [place] FDA. When there are no FDA-approved or cleared tests available, and other criteria are met, FDA can make tests available under an emergency access mechanism called an Emergency Use Authorization (EUA). The EUA for this test is supported by the [place] of Health and Human Service's (HHS's) declaration [...] Performed By: #### H DEB, CMP #### [facility] [address] [address] [address] Judd Andrade INFLUENZA A AND B AGon 06-02 INFLUBANNER SEE BELOW Normal [facility] Comment on above: Result Comment: Nega tive for Flu A protein angiten. Infection due to Flu A cannot be ruled out. Flu A angiten in the sample may be below the detection limit of the test. Performed By: #### H DEB, CMP #### [facility] [address] [address] [address] [facility] Normal [facility] Comment on above: Result Comment: Nega tive for Flu B protein antigen. Infection due to Flu B cannot be ruled out. Flu B antigen in the sample may be below the detection limit of the test. Performed By: #### H DEB, CMP #### [facility] [address] [address] [address] Judd Andrade INFLUENZA A AG Negative Normal NEGATIVE SEE COMMENT [facility] Comment on above: Performed By: #### H STROPN, CMP #### [facility] [address] [place], [place] [address] Dr. Judd Andrade INFLUENZA B AG Negative Normal NEGATIVE SEE COMMENT [facility] Comment on above: Performed By: #### H STROPN, CMP #### [facility] [address] [place], [place] [address] HEAD_NECKon 02-11-2022 [...] GABO STRONG Date: 2022-02-11 16:24 Normal [facility] MAMM SCREEN 3D SUSANA CADon 02-10-2022 MG MAMM SCREEN 3D SUSANA CAD Patient: YULIA CASTANO Exam Date: 02/10/2022 : 1965 Gender:F Ordering : DR JOHN WHITE . Admission #: [id number] Family : Order #: [id number] CLICK HERE TO VIEW EXAM RADIOLOGY REPORT [...] breast cancer at age 40. LOCATION: [facility] BREAST COMPOSITION: Almost entirely fatty. FINDINGS: [...] M.D. on 02/11/2022 at 14:20 Normal [facility] XR CHEST 1 Von 01-15-2022 XR [...] KAREN VALDEZ Date: 2022-01-15 18:39 Normal [facility] CBC AUTO DIFFon 12-30-2021 BASO # 0.0 103/ul Normal 0.0-0.1 [facility] Comment on above: Performed By: #### C BC #### [facility] [address] [place] [address] Dr. Judd Andrade Basophils/100 WBC (Bld) 0.6 % Normal 0.2-2.0 [facility] Comment on above: Performed By: #### C BC #### [facility] [address] [place] [address] Dr. Judd Andrade EO # 0.1 103/ul Normal 0.0-0.7 [facility] Comment on above: Performed By: #### C BC #### [facility] [address] [place] [address] Dr. Judd Andrade Eosinophils/100 WBC (Bld) 2.1 % Normal 0.9-7.0 [facility] Comment on above: Performed By: #### C BC #### [facility] [address] [place] [address] Dr. Judd Andrade Erythrocyte distribution width (RBC) [Ratio] 13.0 % Normal 11.0-15.0 [facility] Comment on above: Performed By: #### C BC #### [facility] [address] [place] [address] Dr. Judd Andrade Hematocrit (Bld) [Volume fraction] 41.9 % Normal 36.0-48.0 [facility] Comment on above: Performed By: #### C BC #### [facility] [address] [place] [address] Dr. Judd Andrade Hemoglobin (Bld) [Mass/Vol] 13.7 g/dL Normal 12.0-16.0 [facility] Comment on above: Performed By: #### C BC #### [facility] [address] [place] [address] Dr. Judd Andrade IG # 0.03 10e3/ul Normal 0.00-0.03 [facility] Comment on above: Performed By: #### C BC #### [facility] [address] [place] [address] Dr. Judd Andrade IG % 0.6 % Critically high 0.0-0.[address] [facility] Comment on above: Performed By: #### C BC #### [facility] [address] [place] [address] Dr. Judd Andrade LYMPH # 1.9 103/ul Normal 1.2-3.8 [facility] Comment on above: Performed By: #### C BC #### [facility] [address] [place] [address] Dr. Judd Andrade Lymphocytes/100 WBC (Bld) 34.5 % Normal 20.5-60.0 [facility] Comment on above: Performed By: #### C BC #### [facility] [address] [place] [address] Dr. Judd Andrade MANUAL DIFF REQ NO Normal [facility] Comment on above: Performed By: #### C BC #### [facility] [address] [place] [address] Dr. Judd Andrade MCH (RBC) [Entitic mass] 28.5 pg Normal 26.7-34.0 [facility] Comment on above: Performed By: #### C BC #### [facility] [address] [place] [address] Dr. Judd Andrade MCHC (RBC) [Mass/Vol] 32.7 g/dL Normal 29.9-35.2 [facility] Comment on above: Performed By: #### C BC #### [facility] [address] [place] [address] Dr. Judd Andrade MCV (RBC) [Entitic vol] 87.1 fL Normal 81.0-99.0 [facility] Comment on above: Performed By: #### C BC #### [facility] [address] [place] [address] Dr. Judd Andrade MONO # 0.6 103/ul Normal 0.3-0.8 [facility] Comment on above: Performed By: #### C BC #### [facility] [address] [place] [address] Dr. Judd Andrade Monocytes/100 WBC (Bld) 10.4 % Normal 1.7-12.0 [facility] Comment on above: Performed By: #### C BC #### [facility] [address] [place] [address] Dr. Judd Andrade NEUT # 2.8 103/ul Normal 1.4-6.5 [facility] Comment on above: Performed By: #### C BC #### [facility] [address] [place] [address] Dr. Judd Andrade Neutrophils/100 WBC (Bld) 51.8 % Normal 43.0-75.0 [facility] Comment on above: Performed By: #### C BC #### [facility] [address] [place] [address] Dr. Judd Andrade Platelet mean volume (Bld) [Entitic vol] 10.5 fL Normal 9.5-13.5 [facility] Comment on above: Performed By: #### C BC #### [facility] [address] [place] [address] Dr. Judd Andrade PLT 270 103/ul Normal 150-450 [facility] Comment on above: Performed By: #### C BC #### [facility] [address] [place] [address] Dr. Judd Andrade RBC 4.81 106/ul Normal 4.20-5.40 [facility] Comment on above: Performed By: #### C BC #### [facility] [address] [place] [address] Dr. Judd Andrade WBC 5.4 103/ul Normal 4.0-11.0 [facility] Comment on above: Performed By: #### C BC #### [facility] [address] [place] [address] Dr. Judd Andrade CRPon 12-30-2021 CRP [Mass/Vol] mg/L Normal <=1.0 [facility] Comment on above: Performed By: #### C BC #### [facility] [address] [place] [address] Dr. Judd Andrade PROF 14(COMP METB)on 022 Albumin [Mass/Vol] 3.9 g/dL Normal 3.4-5.0 [facility] Comment on above: Performed By: #### C BC #### [facility] [address] [place] [address] Dr. Judd Andrade Albumin/Globulin [Mass ratio] 1.0 {ratio} Normal [facility] Comment on above: Performed By: #### C BC #### [facility] [address] [place] [address] Dr. Judd Andrade ALP [Catalytic activity/Vol] 64 U/L Normal 46-116 [facility] Comment on above: Performed By: #### C BC #### [facility] [address] [place] [address] Dr. Judd Andrade ALT [Catalytic activity/Vol] 50 U/L Normal 14-59 [facility] Comment on above: Performed By: #### C BC #### [facility] [address] [place] [address] Dr. Judd Andrade Anion gap [Moles/Vol] 11.1 mmol/L Normal [facility] Comment on above: Performed By: #### C BC #### [facility] [address] [place] [address] Dr. Judd Andrade AST [Catalytic activity/Vol] 28 U/L Normal 15-37 [facility] Comment on above: Performed By: #### C BC #### [facility] [address] [place] [address] Dr. Judd Andrade Bilirubin [Mass/Vol] 0.5 mg/dL Normal 0.2-1.0 [facility] Comment on above: Performed By: #### C BC #### [facility] [address] [place] [address] Dr. Judd Andrade Calcium [Mass/Vol] 8.9 mg/dL Normal 8.5-10.1 [facility] Comment on above: Performed By: #### C BC #### [facility] [address] [place] [address] Dr. Judd Andrade Chloride [Moles/Vol] 101 mmol/L Normal 98-107 [facility] Comment on above: Performed By: #### C BC #### [facility] [address] [place] [address] Dr. Judd Andrade CO2 [Moles/Vol] 29.4 mmol/L Normal 21.0-32.0 [facility] Comment on above: Performed By: #### C BC #### [facility] [address] [place] [address] Dr. Judd Andrade Creatinine [Mass/Vol] 0.73 mg/dL Normal 0.55-1.02 [facility] Comment on above: Performed By: #### C BC #### [facility] [address] [place] [address] Dr. Judd Andrade EGFR-AF PAKISTANI >60 Normal >=60 [facility] Comment on above: Performed By: #### C BC #### [facility] [address] [place] [address] Dr. Judd Andrade EGFR-NON AF PAKISTANI >60 Normal >=60 [facility] Comment on above: Performed By: #### C BC #### [facility] [address] [place] [address] Dr. Judd Andrade Globulin (S) [Mass/Vol] 3.8 g/dL Normal [facility] Comment on above: Performed By: #### C BC #### [facility] [address] [address] [address] Judd Andrade Glucose [Mass/Vol] 139 mg/dL Critically high 74-106 [facility] Comment on above: Performed By: #### C BC #### [facility] [address] [address] [address] Judd Andrade Potassium [Moles/Vol] 3.5 mmol/L Normal 3.5-5.1 [facility] Comment on above: Performed By: #### C BC #### [facility] [address] [address] [address] Judd Andrade Protein [Mass/Vol] 7.7 g/dL Normal 6.4-8.2 [facility] Comment on above: Performed By: #### C BC #### [facility] [address] [address] [address] Judd Andrade Sodium [Moles/Vol] 138 mmol/L Normal 136-145 [facility] Comment on above: Performed By: #### C BC #### [facility] [address] [address] [address] Judd Andrade Urea nitrogen [Mass/Vol] 12.0 mg/dL Normal 7.0-18.0 [facility] Comment on above: Performed By: #### C BC #### [facility] [address] [address] [address] Judd Andrade Urea nitrogen/Creatinine [Mass ratio] 16.4 mg/mg Normal [facility] Comment on above: Performed By: #### C BC #### [facility] [address] [address] [address] Judd Andrade XR CHEST 2 Von [...] ARTEMIO DIXON Date: 2021-12-29 20:49 Normal [facility] TRYPTASEon 12-27-2021 Tryptase 4.5 ug/L Normal 2.2-13.2 [facility] Comment on above: Performed By: #### C BC #### [facility] [address] [place] [address] Dr. Judd Andrade CBC AUTO DIFFon 12-23-2021 BASO # 0.0 103/ul Normal 0.0-0.1 [facility] Comment on above: Performed By: #### H STROPN, CMP #### [facility] [address] [place] [address] Dr. Judd Andrade Basophils/100 WBC (Bld) 0.7 % Normal 0.2-2.0 [facility] Comment on above: Performed By: #### H STROPN, CMP #### [facility] [address] [place] [address] Dr. Judd Andrade EO # 0.0 103/ul Normal 0.0-0.7 [facility] Comment on above: Performed By: #### H STROPN, CMP #### [facility] [address] [place] [address] Dr. Judd Andrade Eosinophils/100 WBC (Bld) 0.0 % Critically low 0.9-7.0 [facility] Comment on above: Performed By: #### H STROPN, CMP #### [facility] [address] [place] [address] Dr. Judd Andrade Erythrocyte distribution width (RBC) [Ratio] 13.2 % Normal 11.0-15.0 [facility] Comment on above: Performed By: #### H STROPN, CMP #### [facility] [address] [place] [address] Dr. Judd Andrade Hematocrit (Bld) [Volume fraction] 42.1 % Normal 36.0-48.0 [facility] Comment on above: Performed By: #### H STROPN, CMP #### [facility] [address] [place] [address] Dr. Judd Andrade Hemoglobin (Bld) [Mass/Vol] 13.7 g/dL Normal 12.0-16.0 [facility] Comment on above: Performed By: #### H STROPN, CMP #### [facility] [address] [address] [address] Judd Andrade IG # 0.01 10e3/ul Normal 0.00-0.03 [facility] Comment on above: Performed By: #### H STROPN, CMP #### [facility] [address] [address] [address] Judd Andrade IG % 0.3 % Normal 0.0-0.5 [facility] Comment on above: Performed By: #### H STROPN, CMP #### [facility] [address] [address] [address] Judd Andrade LYMPH # 0.7 103/ul Critically low 1.2-3.8 [facility] Comment on above: Performed By: #### H STROPN, CMP #### [facility] [address] [address] [address] Judd Andrade Lymphocytes/100 WBC (Bld) 24.1 % Normal 20.5-60.0 [facility] Comment on above: Performed By: #### H STROPN, CMP #### [facility] [address] [place] [address] Dr. Judd Andrade MANUAL DIFF REQ NO Normal [facility] Comment on above: Performed By: #### H STROPN, CMP #### [facility] [address] [address] [address] Judd Andrade MCH (RBC) [Entitic mass] 28.4 pg Normal 26.7-34.0 [facility] Comment on above: Performed By: #### H STROPN, CMP #### [facility] [address] [address] [address] Judd Andrade MCHC (RBC) [Mass/Vol] 32.5 g/dL Normal 29.9-35.2 [facility] Comment on above: Performed By: #### H STROPN, CMP #### [facility] [address] [address] [address] Judd Andrade MCV (RBC) [Entitic vol] 87.2 fL Normal 81.0-99.0 [facility] Comment on above: Performed By: #### H STROPN, CMP #### [facility] [address] [place] [address] Dr. Judd Andrade MONO # 0.5 103/ul Normal 0.3-0.8 [facility] Comment on above: Performed By: #### H STROPN, CMP #### [facility] [address] [place] [address] Dr. Judd Andrade Monocytes/100 WBC (Bld) 16.9 % Critically high 1.7-12.0 [facility] Comment on above: Performed By: #### H STROPN, CMP #### [facility] [address] [place] [address] Dr. Judd Andrade NEUT # 1.8 103/ul Normal 1.4-6.5 [facility] Comment on above: Performed By: #### H STROPN, CMP #### [facility] [address] [place] [address] Dr. Judd Andrade Neutrophils/100 WBC (Bld) 58.0 % Normal 43.0-75.0 [facility] Comment on above: Performed By: #### H STROPN, CMP #### [facility] [address] [place] [address] Dr. Judd Andrade Platelet mean volume (Bld) [Entitic vol] 9.9 fL Normal 9.5-13.5 [facility] Comment on above: Performed By: #### H STROPN, CMP #### [facility] [address] [place] [address] Dr. Judd Andrade PLT 210 103/ul Normal 150-450 [facility] Comment on above: Performed By: #### H STROPN, CMP #### [facility] [address] [place] [address] Dr. Judd Andrade RBC 4.83 106/ul Normal 4.20-5.40 [facility] Comment on above: Performed By: #### H STROPN, CMP #### [facility] [address] [place] [address] Dr. Judd Andrade WBC 3.1 103/ul Critically low 4.0-11.0 [facility] Comment on above: Performed By: #### H TERAPN, CMP #### [facility] [address] [place] [address] Dr. Judd Andrade IRONon 12-23-2021 Iron [Mass/Vol] 35.0 ug/dL Critically low 50.0-170.[address] [facility] Comment on above: Performed By: #### C BC #### [facility] [address] [place] [address] Dr. Judd Andrade PROF 14(COMP METB)on 022 Albumin [Mass/Vol] 3.9 g/dL Normal 3.4-5.0 [facility] Comment on above: Performed By: #### C BC #### [facility] [address] [place] [address] Dr. Judd Andrade Albumin/Globulin [Mass ratio] 1.0 {ratio} Normal [facility] Comment on above: Performed By: #### C BC #### [facility] [address] [place] [address] Dr. Judd Andrade ALP [Catalytic activity/Vol] 70 U/L Normal 46-116 [facility] Comment on above: Performed By: #### C BC #### [facility] [address] [place] [address] Dr. Judd Andrade ALT [Catalytic activity/Vol] 43 U/L Normal 14-59 [facility] Comment on above: Performed By: #### C BC #### [facility] [address] [place] [address] Dr. Judd Andrade Anion gap [Moles/Vol] 11.5 mmol/L Normal [facility] Comment on above: Performed By: #### C BC #### [facility] [address] [place] [address] Dr. Judd Andrade AST [Catalytic activity/Vol] 33 U/L Normal 15-37 [facility] Comment on above: Performed By: #### C BC #### [facility] [address] [place] [address] Dr. Judd Andrade Bilirubin [Mass/Vol] 0.3 mg/dL Normal 0.2-1.0 [facility] Comment on above: Performed By: #### C BC #### [facility] [address] [address] [address] Judd Andrade Calcium [Mass/Vol] 8.9 mg/dL Normal 8.5-10.1 [facility] Comment on above: Performed By: #### C BC #### [facility] [address] [address] [address] Judd Andrade Chloride [Moles/Vol] 101 mmol/L Normal 98-107 [facility] Comment on above: Performed By: #### C BC #### [facility] [address] [place] [address] Dr. Judd Andrade CO2 [Moles/Vol] 31.1 mmol/L Normal 21.0-32.0 [facility] Comment on above: Performed By: #### C BC #### [facility] [address] [place] [address] Dr. Judd Andrade Creatinine [Mass/Vol] 0.69 mg/dL Normal 0.55-1.02 [facility] Comment on above: Performed By: #### C BC #### [facility] [address] [place] [address] Dr. Judd Andrade EGFR-AF PAKISTANI >60 Normal >=60 [facility] Comment on above: Performed By: #### C BC #### [facility] [address] [place] [address] Dr. Judd Andrade EGFR-NON AF PAKISTANI >60 Normal >=60 [facility] Comment on above: Performed By: #### C BC #### [facility] [address] [address] [address] Judd Andrdae Globulin (S) [Mass/Vol] 3.8 g/dL Normal [facility] Comment on above: Performed By: #### C BC #### [facility] [address] [place] [address] Dr. Judd Andrade Glucose [Mass/Vol] 103 mg/dL Normal 74-106 [facility] Comment on above: Performed By: #### C BC #### [facility] [address] [address] [address] Judd Andrade Potassium [Moles/Vol] 3.6 mmol/L Normal 3.5-5.1 [facility] Comment on above: Performed By: #### C BC #### [facility] [address] [address] [address] Judd Andrade Protein [Mass/Vol] 7.7 g/dL Normal 6.4-8.2 [facility] Comment on above: Performed By: #### C BC #### [facility] [address] [address] [address] Judd Andrade Sodium [Moles/Vol] 140 mmol/L Normal 136-145 [facility] Comment on above: Performed By: #### C BC #### [facility] [address] [address] [address] Judd Andrade Urea nitrogen [Mass/Vol] 11.0 mg/dL Normal 7.0-18.0 [facility] Comment on above: Performed By: #### C BC #### [facility] [address] [address] [address] Judd Andrade Urea nitrogen/Creatinine [Mass ratio] 15.9 mg/mg Normal [facility] Comment on above: Performed By: #### C BC #### [facility] [address] [address] [address] Judd Andrade PROTIMEon 12-23-2021 INR Coag (PPP) [Relative time] 1.04 {INR} Normal [facility] Comment on above: Performed By: #### H DEB, CMP #### [facility] [address] [address] [address] Judd Andrade INR GUIDELINES SEE BELOW Normal [facility] Comment on above: Result Comment: PRIETO RED INR: 2.0 - 3.0 CONDITIONS NOT LISTED BELOW 2.5 - 3.5 FOR PROSTHETIC HEART VALVE REPLACEMENT 2.5 - 3.5 RECURRENT THROMBOSIS Performed By: #### H DEB, CMP #### [facility] [address] [place] [address] Dr. Judd Andrade PT Coag (PPP) [Time] 11.2 s Normal 9.0-11.6 [facility] Comment on above: Performed By: #### H DEB, CMP #### [facility] [address] [place] [address] Dr. Judd Andrade PTTon 12-23-2021 aPTT Coag (Bld) [Time] 31.5 s Normal 22.3-36.2 [facility] Comment on above: Performed By: #### H DEB, CMP #### [facility] [address] [place] [address] Dr. Judd Andrade ER URINE PROFILEon Bilirubin Ql (U) Negative Normal NEGATIVE [facility] Comment on above: Performed By: #### H DEB, CMP #### [facility] [address] [place] [address] Dr. Judd Andrade Clarity (U) CLEAR Normal CLEAR [facility] Comment on above: Performed By: #### H DEB, CMP #### [facility] [address] [place] [address] Dr. Judd Andrade Color (U) LT. YELLOW Normal YELLOW [facility] Comment on above: Performed By: #### H DEB, CMP #### [facility] [address] [place] [address] Dr. Judd HOLBROOKRomina A micrscopic examination will be performed if indicated. Normal [facility] Comment on above: Performed By: #### H DEB, CMP #### [facility] [address] [place] [address] Dr. Judd Andrade Glucose Ql (U) Negative Normal NEGATIVE [facility] Comment on above: Performed By: #### H DEB, CMP #### [facility] [address] [place] [address] Dr. Judd Andrade Hemoglobin Ql (U) TRACE-INTACT Abnormal NEGATIVE [facility] Comment on above: Performed By: #### H DEB, CMP #### [facility] [address] [place] [address] Dr. Judd Andrade Ketones Ql (U) Negative Normal NEGATIVE [facility] Comment on above: Performed By: #### H STROPN, CMP #### [facility] [address] [place] [address] Dr. Judd Andrade LEUKOCYTES Negative Normal NEGATIVE [facility] Comment on above: Performed By: #### H STROPN, CMP #### [facility] [address] [address] [address] Judd Andrade Nitrite Ql (U) Negative Normal NEGATIVE [facility] Comment on above: Performed By: #### H STROPN, CMP #### [facility] [address] [place] [address] Dr. Judd Andrade pH (U) 6.0 [pH] Normal 5-9 [facility] Comment on above: Performed By: #### H STROPN, CMP #### [facility] [address] [place] [address] Dr. Judd Andrade SPEC GRAVITY 1.005 Normal 1.005-<=1.[address] [facility] Comment on above: Performed By: #### H STROPN, CMP #### [facility] [address] [place] [address] Dr. Judd Andrade UA PROTEIN Negative Normal NEGATIVE/ TRACE [facility] Comment on above: Performed By: #### H STROPN, CMP #### [facility] [address] [place] [address] Dr. Judd Andrade UR MICRO IND INDICATED Normal [facility] Comment on above: Performed By: #### H STROPN, CMP #### [facility] [address] [place] [address] Dr. Judd Andrade Urobilinogen Qn (U) 0.2 {Carol'U}/dL Normal 0.2 - 1. 0 [facility] Comment on above: Performed By: #### H STROPN, CMP #### [facility] [address] [place] [address] Dr. Judd Andrade URINE MICROSCOPIC ONLYon BACTERIA NONE SEEN Normal NONE SEEN [facility] Comment on above: Performed By: #### H STROPN, CMP #### [facility] [address] [address] [address] Judd Andrade Bacteria identified Cx Nom (U) NOT INDICATED Normal [facility] Comment on above: Performed By: #### H STROPN, CMP #### [facility] [address] [address] [address] Judd Andrade CAST NONE SEEN Normal NONE SEEN [facility] Comment on above: Performed By: #### H STROPN, CMP #### [facility] [address] [address] [address] Judd Andrade Crystals LM Nom (Urine sed) NONE SEEN Normal NONE SEEN [facility] Comment on above: Performed By: #### H STROPN, CMP #### [facility] [address] [address] [address] Judd Andrade Epithelial cells LM Ql (Urine sed) FEW Abnormal NONE SEEN /RARE [facility] Comment on above: Performed By: #### H STROPN, CMP #### [facility] [address] [address] [address] Judd Andrade MUCOUS NONE SEEN Normal NONE SEEN [facility] Comment on above: Performed By: #### H STROPN, CMP #### [facility] [address] [address] [address] Judd Andrade RBC 0-2 Normal 0-2 [facility] Comment on above: Performed By: #### H STROPN, CMP #### [facility] [address] [address] [address] Judd Andrade WBC NONE SEEN Normal NONE SEEN [facility] Comment on above: Performed By: #### H STROPN, CMP #### [facility] [address] [place] [address] Dr. Judd Andrade Encounters Encounter Date Encounter Type Care Provider Facility Start: 12-30-2023 ambulatory Bessie Gong Facility :[facility] Start: 12-21-2023 End: 12-21-2023 ambulatory NATALIE TINSLEY [...] dy response examination DR JOHN WHITE . [facility] Start: 06-26-2022 End: 06-27-2022 ambulatory [...] ty:H1 Payers Date Payer Category Payer Unknown [id number] 2.16.84 0.1.129215.3.579.2.593 1965 Unknown [id number] 2.16.84 0.1.919422.3.579.2.593 1965 Unknown [id number] 2.16.84 0.1.811401.3.579.2.59 1965 Unknown [id number] 2.16.84 0.1.592613.3.579.2.593 1965 Unknown [id number] 2.16.84 0.1.368940.3.579.2.59 1965 Unknown [id number] 2.16.84 0.1.209218.3.579.2.593 1965 Unknown [id number] 2.16.84 0.1.230627.3.579.2.59 1965 Unknown [id number] 2.16.84 0.1.311521.3.579.2.593 1965 Unknown [id number] 2.16.84 0.1.863525.3.579.2.593 1965 Unknown [id number] 2.16.84 0.1.146984.3.579.2.593 1965 Unknown [id number] 2.16.84 0.1.593770.3.579.2.593 1965 Unknown [id number] 2.16.84 0.1.350827.3.579.2.593 1965 Unknown [id number] 2.16.84 0.1.207879.3.579.2.593 1965 Unknown [id number] 2.16.84 0.1.357276.3.579.2.593 1965 Unknown [id number] 2.16.84 0.1.819875.3.579.2.593 1965 Unknown [id number] 2.16.84 0.1.865735.3.579.2.593 1965 Unknown [id number] 2.16.84 0.1.391326.3.579.2.593 1965 Unknown [id number] 2.16.84 0.1.920033.3.579.2.593 1965 Unknown [id number] 2.16.84 0.1.270313.3.579.2.593 1965 Unknown [id number] 2.16.84 0.1.043625.3.579.2.593 1965 Unknown [id number] 2.16.84 0.1.315921.3.579.2.593 1965 Unknown [id number] 2.16.84 0.1.885215.3.579.2.593 1965 Unknown [id number] 2.16.84 0.1.244342.3.579.2.593 1965 Unknown [id number] 2.16.84 0.1.456473.3.579.2.593 1965 Unknown [id number] 2.16.8 40.1.251762.3.579.2.727 1965 Unknown [id number] 2.16.84 0.1.817251.3.579.2.1259 1965 Unknown [id number] 2.16.84 0.1.885345.3.579.2.1258 1965 Unknown [id number] 2.16.84 0.1.535344.3.579.2.1258 1965 Unknown [id number] 2.16.84 0.1.865174.3.579.2.1258 1965 Unknown [id number] 2.16.840 .1.741433.3.579.2.9 1959 Self-pay [id number] 1959 Unknown [id number] 1959 Unknown [id number] Summary Purpose Family History No Family History Records FoundNo Family History Records FoundNo Family History Records Found Advance Directives No Advanced Directives Records FoundNo Advanced Directives Records FoundNo Advanced Directives Records Found Additional Source Comments INFORMATION SOURCE (unrecogn ized section and content) DATE CREATED AUTHOR 10/02/2022 [facility] DATE CREATED AUTHOR AUTHOR'S ORGANIZ ATION 12/05/2023 [facility] DATE CREATED AUTHOR AUTHOR'S ORGANIZ ATION 12/23/2023 [facility] FOR RECORDS PERTAINING TO PATIENTS [...] BE BASED ON THE PRIMARY CLINICAL RECORDS. [facility] [employer] provides no warranty or guarantee of the accuracy or completeness of information in this document.
[2023-12-28 16:19] LABS: Bilirubin Urine NEGATIVE (NEGATIVE); Blood Urine NEGATIVE (NEGATIVE); Clarity Urine CLEAR (CLEAR); Color Urine LT. YELLOW (YELLOW); Glucose Urine UA NEGATIVE (NEGATIVE); Ketones Urine NEGATIVE (NEGATIVE); Leukocyte Esterase Urine TRACE (NEGATIVE); Nitrite Urine NEGATIVE (NEGATIVE); Protein Urine NEGATIVE (NEG/TRACE); Urobilinogen Urine 0.2 EU/dL (0.2-1.0)
[2023-12-28 16:27] LABS: Bacteria Urine TRACE #/HPF (NONE SEEN); Cast Seen? NONE SEEN #/LPF (NONE SEEN); Crystals Seen? None Seen #/HPF (None Seen); Mucus Urine NONE SEEN (NONE SEEN); RBC Urine NONE SEEN #/HPF (0-2); Squamous Epithelial Cell Urine RARE #/LPF (NONE/RARE)
[2023-12-29 09:29] LABS: Alanine Aminotransferase 25 U/L (14-59); Albumin Globulin Ratio 1.1; Alkaline Phosphatase 77 U/L (46-116); Amylase 81 U/L (25-115); Anion Gap 12.1; Aspartate Amino Transferase 19 U/L (15-37); BUN Creatinine Ratio 25.4; Bilirubin Total 0.3 mg/dL (0.2-1.0); Calcium 9.3 mg/dL (8.5-10.1); Carbon Dioxide 30.1 mmol/L (21.0-32.0); Chloride 101 mmol/L (98-107); Estimated GFR (African America >60 (>=60); Estimated GFR (Non-African Ame >60 (>=60); Globulin 3.5 g/dL; Glucose 99 mg/dL (74-106); Potassium 4.2 mmol/L (3.5-5.1); Sodium 139 mmol/L (136-145); Total Protein 7.5 g/dL (6.4-8.2)
== END 2023-12-28 15:59 | disposition home or self-care (01) ==
LOC: LAB 15:58
PROVIDERS: PCP Family Medicine; Visit Provider Family Medicine
DX: I10 Essential (primary) hypertension (principal)
CPT/HCPCS: 36415; 80053; 81001; 82150; 85025; 87086

== ENCOUNTER 2024-01-01 12:19 | Outpatient (OUT) | payer OTHER, SELFPAY ==
--- NOTE | 2024-01-01 | US_ITS ---
[address] [address] Patient Name: YULIA CASTANO MRN: [id number] date: 1965 Sex: F Assigned Patient Location: Current Patient Location: Accession/Order Number: [id number] Exam Date: 01/01/2024 12:40 Report Date: 01/03/2024 07:46 At the request of: ERIC FAUST Procedure: US renal BI EXAMINATION: US renal BI HISTORY: KIDNEY STONES N20.0 COMPARISON: No relevant comparison available. TECHNIQUE: Ultrasound examination was performed of the bladder. FINDINGS: Right Kidney: Normal in size, contour and cortical echotexture. The cortex measures 1 cm. No solid cortical mass, hydronephrosis or obstructing nephrolithiasis Height: 4.55 cm Length: 9.69 cm Width: 4.65 cm Left Kidney: Normal in size, contour and cortical echotexture. The cortex measures 1 cm. No solid cortical mass, hydronephrosis or obstructing nephrolithiasis Height: 5.41 cm Length: 10.28 cm Width: 4.62 cm Urinary bladder is normal in appearance measuring 5.1 x 8.5 x 5.4 cm a volume of 163 mL US/US renal BI IMPRESSION: Normal exam Electronically authenticated by: ELLYN ALVAREZ Date: 01/03/2024 07:46
--- NOTE | 2024-01-01 | XR_ITS ---
[address] [address] Patient Name: YULIA CASTANO MRN: [id number] date: 1965 Sex: F Assigned Patient Location: US Current Patient Location: US Accession/Order Number: [id number] Exam Date: 01/01/2024 12:36 Report Date: 01/03/2024 10:16 At the request of: ERIC FAUST Procedure: XR abdomen 1V EXAMINATION: XR abdomen 1V HISTORY: kidney stone COMPARISON: No relevant comparison available. FINDINGS: KIDNEY/URETER - RIGHT: No visible renal or ureteral calcifications. KIDNEY/URETER - LEFT: No visible renal or ureteral calcifications. PELVIS: No visible ureteral calcifications. Any visible calcifications favor phleboliths. BOWEL: No abnormal dilation or deviation. BONES: No acute abnormality. OTHER: Negative. No abnormal gaseous collections. XR/XR abdomen 1V IMPRESSION: No definite urinary tract calculi Electronically authenticated by: ELLYN ALVAREZ Date: 01/03/2024 10:16
--- OUTSIDE RECORDS SUMMARY | 2024-01-01 12:22 | XMS_ITS | CCD ---
Author Organization [facility] Care Team Providers Care Pot Room Tapper Name Role Phone ABELINOY ., DR LOPEZ [...] Henley Consulting Unavailable JUANJOSE ., DR WILSON Admchao Unavailable JUANJOSE ., DR WILSON Attending Unavailable [...] Unavailable JUANJOSE ., DR WILSON Attending Unavailable PYATT, DR ELLYN Dougherty Consulting Unavailable HOY ., DR LOPEZ Primary Care Unavailable JUANJOSE ., DR WILSON Consulting Unavailable HOY ., DR LOPEZ Primary Care Unavailable CARROLLECK, DR IRIS Chavez Admitting Unavailabl e DEMETRA, DR IRIS Chavez Attending Unavailabl e GRETEL ., ADELAIDE Admitting Unavailable GRETEL ., ADELAIDE Attending Unavailable GRETEL ., ADELAIDE Consulting Unavailable HOY ., DR LOPEZ Primary Care Unavailable VALDEZKAREN RAMOS Consulting Unavailable HOY ., DR LOPEZ Consulting Unavailable HOY ., DR LOPEZ Attending Unavailable HOY ., DR LOPEZ Primary Care Unavailable HOY ., DR LOPEZ Admchao Unavailable KC, DR BRYAN Henley Admitting Unavailable KC, DR BRYAN Henley Attending Unavailable KC, DR BRYAN Henley Consulting Unavailable HOY ., DR LOPEZ Primary Care Unavailable REINECK, DR IRIS Chavez Consulting Unavailabl e HOY ., DR LOPEZ Attending Unavailable HOY ., DR LOPEZ Primary Care Unavailable HOY ., DR LOPEZ Admchao Unavailable HOY ., DR LOPEZ Consulting Unavailable HOY ., DR LOPEZ Attending Unavailable HOY ., DR LOPEZ Primary Care Unavailable HOY ., DR LOPEZ Admchao Unavailable HOY ., DR LOPEZ Attending Unavailable HOY ., DR LOPEZ Consulting Unavailable CINDY ., DR LOPEZ Primary Care Unavailable CINDY ., DR LOPEZ Admitting Unavailable LINDA RHODES Consulting Unavailable VALE HI Attending Unavailable RALF RENDON Referring Unavailable KATIE RUST Attending Unavailable KATIE RUST Attending Unavailable KATIE RUST Attending Unavailable NATALIE TINSLEY Attending Unavailable John Porter Primary Care Physician [phone] Bessie Gong Attending Unavailable Allergies Allergy Classification Reported Allergen(s) Allergy Type Date of Onset Reaction(s) Facility (1 source) Azithromycin Drug Allergy 2 [facility] (2 sources) Imipramine Drug Allergy 3 [facility] (2 sources) Sulfonamides (Antibiotic) Drug allergy (disorder) 3 [facility] (2 sources) E.E.S. Drug allergy (disorder) 3 [facility] (2 sources) Erythromycin; Translations: [erythromycin] Drug Allergy Unknown (qualifier value) [facility] (2 sources) Imipramine; Translations: [imipramine] Drug Allergy Unknown (qualifier value) [facility] (2 sources) Sulfonamides (Antibiotic); Translations: [sulfa drugs] Drug allergy Unknown (qualifier value) [facility] Problems Active Problems Problem Classification Problem Date Documented Date Episodic/Chronic Abdominal hernia (1 source) Hiatal hernia 12-30-2023 Episodic Anxiety disorders (1 source) Generalized anxiety disorder Onset: 03-28-2019 12-30-2023 Chronic Calculus of urinary tract (1 source) Kidney stone 12-30-2023 Episodic Chronic obstructive pulmonary disease and bronchiectasis (5 sources) Chronic obstructive pulmonary disease, unspecified; Translations: [COPD UNSPECIFIED] Onset: 06-05-2022 Chronic Conditions associated with dizziness or vertigo (1 source) Meniere's disease 12-30-2023 Chronic Deficiency and other anemia (1 source) Anemia, unspecified; Translations: [ANEMIA UNSPECIFIED] Onset: 07-07-2022 Episodic Deficiency and other anemia (1 source) Anemia 11-05-2018 Episodic Diabetes mellitus without complication (1 source) Other abnormal glucose; Translations: [OTHER ABNORMAL GLUCOSE] Onset: 07-07-2022 Episodic Esophageal disorders (1 source) Gastroesophageal reflux disease 12-30-2023 Chronic Essential hypertension (5 sources) Essential (primary) hypertension; Translations: [Essential hypertension] Onset: 07-03-2022 Chronic Gastritis and duodenitis (1 source) Hypertrophic gastritis 11-05-2018 Episodic Genitourinary symptoms and ill-defined conditions (6 sources) Unspecified urinary incontinence; Translations: [Stress incontinence (female) (male)] Onset: 12-20-2021 Chronic Genitourinary symptoms and ill-defined conditions (5 sources) Microscopic hematuria; Translations: [Asymptomatic microscopic hematuria] Onset: 12-30-2023 Episodic Headache; including migraine (1 source) Migraine 11-05-2018 Chronic Menstrual disorders (1 source) Excessive and frequent menstruation with regular cycle; Translations: [EXCESS FREQ MENSTRUATION W/REG CYCL] Onset: 12-24-2021 Chronic Mood disorders (2 sources) Depressive disorder; Translations: [Moderate major depression, single episode] Onset: 03-28-2019 11-05-2018 Chronic Nonmalignant breast conditions (5 sources) Unspecified lump in the right breast, unspecified quadrant; Translations: [Mastodynia] Onset: 09-22-2022 Episodic Osteoarthritis (1 source) Arthritis 11-05-2018 Chronic Other diseases of bladder and urethra (2 sources) Urethral stricture; Translations: [Unspecified urethral stricture, female] Onset: 12-30-2023 Episodic Other ear and sense organ disorders (1 source) Hearing loss 12-30-2023 Chronic Other lower respiratory disease (1 source) Shortness [...] Translations: [OBSTRUCTIVE SLEEP APNEA] Onset: 08-11-2022 Chronic Residual codes; unclassified (1 source) Obstructive sleep apnea syndrome 12-30-2023 Chronic Screening and history of mental health and substance abuse codes (1 source) Ex-smoker 12-13-2018 Episodic Unclassified (3 sources) CONTACT W/AND (SUSP) EXPOS COVID-19; Translations: [CONTACT W/AND (SUSP) EXPOS COVID-19] Onset: 06-03-2022 Unclassified (2 sources) COUGH, UNSPECIFIED; Translations: [COUGH, UNSPECIFIED] Onset: 01-19-2022 Unclassified (1 source) PERSONAL HISTORY OF COVID-19; Translations: [PERSONAL HISTORY OF COVID-19] Onset: 01-19-2022 Urinary tract infections (1 source) Urinary tract infectious disease; Translations: [Urinary tract infection, site not specified] Onset: 12-30-2023 Episodic Viral infection (1 source) Herpes simplex 11-05-2018 Episodic Viral infection (5 sources) COVID-19; Translations: [COVID-19] [...] 06-05-2022 Episodic Other aftercare (4 sources) 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; Translations: [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 Discharge Vitals Heart Rate (Peripheral) 80 Respiratory Rate 16 Blood Pressure 117/82 Height 160 cm Height 63 in Weight 72 kg Weight 158.4 lb BMI 28.13 Allergies Imipramine Hydrochloride (Unknown) erythromycin (Unknown) sulfa drugs (Unknown) Problems Ongoing - Any problem that you are currently receiving treatment for. Anemia Arthritis Depression Dysuria Essential hypertension Former smoker Gastroesophageal reflux disease Generalized anxiety disorder Hearing loss Herpes Hiatal hernia Kidney stone Menetrier's disease Microscopic hematuria Migraine headache Moderate major depression, single episode M?ni?re's disease Nocturia Obstructive sleep apnea syndrome Stress incontinence Unspecified urethral stricture, female Urgency of urination Patient Survey You may receive a survey via text or e-mail asking about your office visit. Please share your experience with us by completing your survey. We appreciate your feedback and thank you for choosing us for your care. [facility] Provider Letteron 12-30-2023 Provider Letter Provider Letter December 30, 2023 [place] [id number] : 1965 To Whom It May Concern, Please excuse above patient from work. Date of Illness: From: 12/30/23 To: 12/30/23 May Return to Work On: 12/31/2023 Restrictions: Comments: Patient had an appointment on 12/30/23 at [facility] Sincerely, [facility] Urology Office/Clinic Noteon 12-30-2023 Urology Office/Clinic Note Urology Office/Clinic Note Chief Complaint New patient, kidney stone, UTIs, possible bladder spasms HPI Staff 58 year old female new patient Referred by Dr. Porter for UTIs, bladder spasms, kidney stones. Started November 18/2024, probably passed a kidney stone, had pain, gross hematuria. Is feeling pressure sensation. Last seen Dr. Kc 11/2018. Previous dx: unspecified urethral stricture, female, stress incontinence. Renal US done 11/23/23, 12/07/23. 10 day course of augmentin, had last pill yesterday. Dysuria: denies, has burning after urinating Incomplete bladder emptying: denies Hematuria: denies visible blood Frequency: once 1 1/2- 2 hours Urgency: denies Nocturia: 2-3 x a night Stream: denies hesitancy, has a strong stream Leaking: denies Post void dripping: denies Wearing pads/ Depends: denies Urge incontinence: denies Stress incontinence: yes, when coughing, sneezing leaks Incontinence without Sensory Awareness:denies Abdominal pain: denies Flank pain: denies Sexual complaints: _ History of Present Illness Staff HPI reviewed and agree. Review of Systems PHQ Score Initial Depression Screen Score: 0 SCORE no fever, chills, malaise, myalgia. no rash/lesions. no chest pain, palpitations, or SOB. no abdominal pain, nausea, vomiting. 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 Pt is previous DLS pt, here today with . 12/28/23 - BUN 18, Cre 0.71, eGFR >60 1. Recurrent UTI (N39.0: Urinary tract infection, site not specified) 12/08/23 cx - 50-100k klebsiella pneumoniae, treated with Cipro x 3 days then switched to Augmentin BID x10 days due to pt reaction to Cipro 12/20/23 cx - 10-25k mixed urogenital umu UA today trace-intact blood only PVR on recent LINA 8ml Pt reports that at the end of October she was traveling and felt like she was getting a UTI with symptoms of dysuria, frequency and urgency. Pt reports that she was using the restroom about every 45 minutes and then she visibly passed what she believes to be a kidney stone. Pt reports she had hematuria at this time as well which has since subsided. Pt reports she went to an urgent care in [facility] who started her on Augmentin for UTI (no culture available). Pt reports that she finished this course but continued to have UTI symptoms so she saw her PCP who ordered repeat culture and started patient on Cipro. Pt states she took 3 days of Cipro and started having increased anxiety and nightmares so it was stopped and patient was put back on Augmentin which was susceptible to culture at that time. Pt completed Augmentin yesterday, is not having any pain, hematuria or other symptoms at this time. UA today negative. Pt was happy to hear this. Pt reports prior to this recent episode, she had no difficulties with recurrent infection or kidney stones. Pt denies DM or weak stream. Pt does report constipation at times and notices a difference in her urination when she is constipated. Advised pt of the bowel/bladder connection and how this can contribute to recurrent infections. Discussed increasing fluid intake with patient as well as OTC preventatives. Pt did purchase Uqora and has started that, advised pt that is fine or she can take OTC supplements (cranberry, D-mannose & probiotic). Pt verbalized understanding. Advised patient that 1-2 infections per year is ok and fairly normal, but to call our office if she feels she is developing another infection and we can obtain UA and treat appropriately. Pt verbalized understanding. Briefly discussed estrogen cream, especially after her upcoming hysterectomy and how this can aid in UTI prevention. Will discuss at follow up after hysterectomy. Pt does report that she gets anxious about starting new medications. -Increase fluids, avoid bladder irritants -Continue OTC supplements -Call our office for any future UTI symptoms -Manage constipation -F/U in 6 months after hysterectomy with Dr. Rust Ordered: E&M of New Patient High 60-74 Min [id number] 2. Kidney stones (N20.0: Calculus of kidney) 11/23/23 LINA - nonobstructing 4mm stone L kidney 12/07/23 LINA - negative for stones, minimal post void residual of 8ml Discussed recent LINA findings with patient. She does report some urgency and frequency in the interim between ultrasounds but denies seeing a stone pass. She is not having any stone symptoms now. Advised pt we could repeat imaging to ensure clearance of stones at any time. Pt would like to complete this now. -K (more content not included)... Normal [facility] Comment on above: Result Comment: Elec tronically Signed By: Bessie Quiñones\.enid\Date and Time Signed: 12/30/23 15:22 EDT MG MAMM DX 3D RT CADon 09-22 MG MAMM DX 3D RT CAD Patient: GEN SCARLET CASTANO. Exam Date: 09/22/2022 : 1965 Gender:F Ordering : DR KATIE RUST . Admission #: [id number] Family : Order #: [id number] CLICK HERE TO VIEW EXAM RADIOLOGY REPORT [...] breast cancer at age 40. LOCATION: [facility] BREAST COMPOSITION: Almost entirely fatty. FINDINGS: DIAGNOSTIC [...] MD on 09/22/2022 at 15:03 Normal [facility] US BREAST RIGHT LIMITEDon US BREAST RIGHT LIMITED Patient: YULIA CASTANO Exam Date: 09/22/2022 : 1965 Gender:F Ordering : DR KATIE RUST . Admission #: [id number] Family : Order #: [id number] CLICK HERE TO VIEW EXAM RADIOLOGY REPORT [...] breast cancer at age 40. LOCATION: [facility] BREAST COMPOSITION: Almost entirely fatty. FINDINGS: DIAGNOSTIC [...] Castaneda MD on 09/22/2022 at 15:03 Normal [facility] US ST HEAD_NECKon 08-31-2022 US [...] by: GABO STRONG Date: 2022-08-31 08:09 Normal [facility] US PELVIS AND TRANSVAGon US [...] by: GABO STRONG Date: 2022-07-29 06:32 Normal [facility] INSULINon 07-04-2022 Insulin 6.2 uIU/mL Normal 2.6-24.9 [facility] Comment on above: Performed By: #### H STROPN, CMP #### [facility] [address] [place] [address] Dr. Judd Andrade CBC AUTO DIFFon 07-03-2022 BASO # 0.0 103/ul Normal 0.0-0.1 [facility] Comment on above: Performed By: #### C BC #### [facility] [address] [place] [address] Dr. Judd Andrade Basophils/100 WBC (Bld) 1.1 % Normal 0.2-2.0 [facility] Comment on above: Performed By: #### C BC #### [facility] [address] [place] [address] Dr. Judd Andrade EO # 0.1 103/ul Normal 0.0-0.7 [facility] Comment on above: Performed By: #### C BC #### [facility] [address] [place] [address] Dr. Judd Andrade Eosinophils/100 WBC (Bld) 3.6 % Normal 0.9-7.0 [facility] Comment on above: Performed By: #### C BC #### [facility] [address] [place] [address] Dr. Judd Andrade Erythrocyte distribution width (RBC) [Ratio] 13.6 % Normal 11.0-15.0 [facility] Comment on above: Performed By: #### C BC #### [facility] [address] [place] [address] Dr. Judd Andrade Hematocrit (Bld) [Volume fraction] 41.8 % Normal 36.0-48.0 [facility] Comment on above: Performed By: #### C BC #### [facility] [address] [place] [address] Dr. Judd Andrade Hemoglobin (Bld) [Mass/Vol] 13.5 g/dL Normal 12.0-16.0 [facility] Comment on above: Performed By: #### C BC #### [facility] [address] [place] [address] Dr. Judd Andrade IG # 0.01 10e3/ul Normal 0.00-0.03 [facility] Comment on above: Performed By: #### C BC #### [facility] [address] [place] [address] Dr. Judd Andrade IG % 0.3 % Normal 0.0-0.5 [facility] Comment on above: Performed By: #### C BC #### [facility] [address] [place] [address] Dr. Judd Andrade LYMPH # 1.4 103/ul Normal 1.2-3.8 [facility] Comment on above: Performed By: #### C BC #### [facility] [address] [place] [address] Dr. Judd Andrade Lymphocytes/100 WBC (Bld) 38.4 % Normal 20.5-60.0 [facility] Comment on above: Performed By: #### C BC #### [facility] [address] [place] [address] Dr. Judd Andrade MANUAL DIFF REQ NO Normal [facility] Comment on above: Performed By: #### C BC #### [facility] [address] [place] [address] Dr. Judd Andrade MCH (RBC) [Entitic mass] 28.2 pg Normal 26.7-34.0 [facility] Comment on above: Performed By: #### C BC #### [facility] [address] [place] [address] Dr. Judd Andrade MCHC (RBC) [Mass/Vol] 32.3 g/dL Normal 29.9-35.2 [facility] Comment on above: Performed By: #### C BC #### [facility] [address] [place] [address] Dr. Judd Andrade MCV (RBC) [Entitic vol] 87.4 fL Normal 81.0-99.0 [facility] Comment on above: Performed By: #### C BC #### [facility] [address] [place] [address] Dr. Judd Andrade MONO # 0.4 103/ul Normal 0.3-0.8 [facility] Comment on above: Performed By: #### C BC #### [facility] [address] [place] [address] Dr. Judd Andrade Monocytes/100 WBC (Bld) 10.4 % Normal 1.7-12.0 [facility] Comment on above: Performed By: #### C BC #### [facility] [address] [place] [address] Dr. Judd Andrade NEUT # 1.7 103/ul Normal 1.4-6.5 [facility] Comment on above: Performed By: #### C BC #### [facility] [address] [place] [address] Dr. Judd Andrade Neutrophils/100 WBC (Bld) 46.2 % Normal 43.0-75.0 [facility] Comment on above: Performed By: #### C BC #### [facility] [address] [place] [address] Dr. Judd Andrade Platelet mean volume (Bld) [Entitic vol] 9.6 fL Normal 9.5-13.5 [facility] Comment on above: Performed By: #### C BC #### [facility] [address] [place] [address] Dr. Judd Andrade PLT 246 103/ul Normal 150-450 [facility] Comment on above: Performed By: #### C BC #### [facility] [address] [place] [address] Dr. Judd Andrade RBC 4.78 106/ul Normal 4.20-5.40 [facility] Comment on above: Performed By: #### C BC #### [facility] [address] [place] [address] Dr. Judd Andrade WBC 3.7 103/ul Critically low 4.0-11.0 [facility] Comment on above: Performed By: #### C BC #### [facility] [address] [place] [address] Dr. Judd Andrade FREE THYROXINE INDEX T7on FTI 3.20 Normal 1.30-4.50 [facility] Comment on above: Performed By: #### T 7, LIPID, TSH, CMP #### [facility] [address] [address] [address] Judd Andrade T3U 36.0 % Normal 30.0-39.0 [facility] Comment on above: Performed By: #### T 7, LIPID, TSH, CMP #### [facility] [address] [address] [address] Judd Andrade T4 [Mass/Vol] 8.90 ug/dL Normal 4.80-13.90 [facility] Comment on above: Performed By: #### T 7, LIPID, TSH, CMP #### [facility] [address] [place] [address] Dr. Judd Andrade GLYCOHEMOGLOBIN A1Con 2022 ADA RECOMMENDATION SEE BELOW Normal [facility] Comment on above: Result Comment: ADA RECOMMENDED LIMIT 4.0 - 6.0 ADA THERAPEUTIC TARGET < 7.0 ACTION SUGGESTED > 7.0 Performed By: #### C BC #### [facility] [address] [place] [address] Dr. Judd Andrade Glucose [Mass/Vol] 120 mg/dL Normal [facility] Comment on above: Performed By: #### C BC #### [facility] [address] [place] [address] Dr. Judd Andrade HbA1c (Bld) [Mass fraction] 5.8 % Normal 4.5-6.2 [facility] Comment on above: Performed By: #### C BC #### [facility] [address] [place] [address] Dr. Judd Andrade IRONon 07-03-2022 Iron [Mass/Vol] 67.0 ug/dL Normal 50.0-170.0 [facility] Comment on above: Performed By: #### V ITAD, IRON #### [facility] [address] [place] [address] Dr. Judd Andrade LIPID PROFILEon 07-03-2022 CHOL-HDL RATIO NORM SEE BELOW Normal [facility] Comment on above: Result Comment: 3.3 - 4.4 LOW RISK 4.4 - 7.1 AVERAGE RISK 7.1 - 11.0 MODERATE RISK >11.0 HIGH RISK Performed By: #### T 7, LIPID, TSH, CMP #### [facility] [address] [place] [address] Dr. Judd Andrade Cholesterol [Mass/Vol] 216 mg/dL Critically high <=200 [facility] Comment on above: Performed By: #### T 7, LIPID, TSH, CMP #### [facility] [address] [place] [address] Dr. Judd Andrade Cholesterol in HDL [Mass/Vol] 87 mg/dL Critically high 40-60 [facility] Comment on above: Performed By: #### T 7, LIPID, TSH, CMP #### [facility] [address] [place] [address] Dr. Judd Andrade Cholesterol in LDL [Mass/Vol] 124.2 mg/dL Normal [facility] Comment on above: Performed By: #### T 7, LIPID, TSH, CMP #### [facility] [address] [place] [address] Dr. Judd Andrade Cholesterol.total/Ch olesterol in HDL [Mass ratio] 2.5 {ratio} Normal [facility] Comment on above: Performed By: #### T 7, LIPID, TSH, CMP #### [facility] [address] [place] [address] Dr. Judd Andrade HDL NORMAL > or = 60 mg/dl - LO W CARDIOVASCULAR RISK <40 mg/dl - HIGH CARDIOVASCULAR RISK Normal [facility] Comment on above: Performed By: #### T 7, LIPID, TSH, CMP #### [facility] [address] [place] [address] Dr. Judd Andrade LDL CALC NORMAL SEE BELOW Normal [facility] Comment on above: Result Comment: <100 mg/dl OPTIMAL 100 - 129 mg/dl NEAR OR ABOVE OPTIMAL 130 - 159 mg/dl BORDERLINE HIGH 160 - 189 mg/dl HIGH >190 mg/dl VERY HIGH Performed By: #### T 7, LIPID, TSH, CMP #### [facility] [address] [place] [address] Dr. Judd Andrade Triglyceride [Mass/Vol] 24 mg/dL Normal <=150 [facility] Comment on above: Performed By: #### T 7, LIPID, TSH, CMP #### [facility] [address] [address] [address] Judd Andrade VLDL CALC 4.8 mg/dL Normal [facility] Comment on above: Performed By: #### T 7, LIPID, TSH, CMP #### [facility] [address] [address] [address] Judd Andrade PROF 14(COMP METB)on 023 Albumin [Mass/Vol] 4.0 g/dL Normal 3.4-5.0 [facility] Comment on above: Performed By: #### T 7, LIPID, TSH, CMP #### [facility] [address] [place] [address] Dr. Judd Andrade Albumin/Globulin [Mass ratio] 1.1 {ratio} Normal [facility] Comment on above: Performed By: #### T 7, LIPID, TSH, CMP #### [facility] [address] [place] [address] Dr. Judd Andrade ALP [Catalytic activity/Vol] 78 U/L Normal 46-116 [facility] Comment on above: Performed By: #### T 7, LIPID, TSH, CMP #### [facility] [address] [place] [address] Dr. Judd Andrade ALT [Catalytic activity/Vol] 29 U/L Normal 14-59 [facility] Comment on above: Performed By: #### T 7, LIPID, TSH, CMP #### [facility] [address] [address] [address] Judd Andrade Anion gap [Moles/Vol] 5.6 mmol/L Normal [facility] Comment on above: Performed By: #### T 7, LIPID, TSH, CMP #### [facility] [address] [place] [address] Dr. Judd Andrade AST [Catalytic activity/Vol] 23 U/L Normal 15-37 [facility] Comment on above: Performed By: #### T 7, LIPID, TSH, CMP #### [facility] [address] [place] [address] Dr. Judd Andrade Bilirubin [Mass/Vol] 0.5 mg/dL Normal 0.2-1.0 [facility] Comment on above: Performed By: #### T 7, LIPID, TSH, CMP #### [facility] [address] [place] [address] Dr. Judd Andrade Calcium [Mass/Vol] 8.9 mg/dL Normal 8.5-10.1 [facility] Comment on above: Performed By: #### T 7, LIPID, TSH, CMP #### [facility] [address] [place] [address] Dr. Judd Andrade Chloride [Moles/Vol] 105 mmol/L Normal 98-107 [facility] Comment on above: Performed By: #### T 7, LIPID, TSH, CMP #### [facility] [address] [place] [address] Dr. Judd Andrade CO2 [Moles/Vol] 32.0 mmol/L Normal 21.0-32.0 [facility] Comment on above: Performed By: #### T 7, LIPID, TSH, CMP #### [facility] [address] [place] [address] Dr. Judd Andrade Creatinine [Mass/Vol] 0.52 mg/dL Critically low 0.55-1.02 [facility] Comment on above: Performed By: #### T 7, LIPID, TSH, CMP #### [facility] [address] [place] [address] Dr. Judd Andrade EGFR-AF GABONESE >60 Normal >=60 [facility] Comment on above: Performed By: #### T 7, LIPID, TSH, CMP #### [facility] [address] [place] [address] Dr. Judd Andrade EGFR-NON AF GABONESE >60 Normal >=60 [facility] Comment on above: Performed By: #### T 7, LIPID, TSH, CMP #### [facility] [address] [place] [address] Dr. Judd Andrade Globulin (S) [Mass/Vol] 3.6 g/dL Normal [facility] Comment on above: Performed By: #### T 7, LIPID, TSH, CMP #### [facility] [address] [address] [address] Judd Andrade Glucose [Mass/Vol] 89 mg/dL Normal 74-106 [facility] Comment on above: Performed By: #### T 7, LIPID, TSH, CMP #### [facility] [address] [place] [address] Dr. Judd Andrade Potassium [Moles/Vol] 4.2 mmol/L Normal 3.5-5.1 [facility] Comment on above: Performed By: #### T 7, LIPID, TSH, CMP #### [facility] [address] [place] [address] Dr. Judd Andrade Protein [Mass/Vol] 7.6 g/dL Normal 6.4-8.2 [facility] Comment on above: Performed By: #### T 7, LIPID, TSH, CMP #### [facility] [address] [place] [address] Dr. Judd Andrade Sodium [Moles/Vol] 139 mmol/L Normal 136-145 [facility] Comment on above: Performed By: #### T 7, LIPID, TSH, CMP #### [facility] [address] [place] [address] Dr. Judd Andrade Urea nitrogen [Mass/Vol] 11.0 mg/dL Normal 7.0-18.0 [facility] Comment on above: Performed By: #### T 7, LIPID, TSH, CMP #### [facility] [address] [place] [address] Dr. Judd Andrade Urea nitrogen/Creatinine [Mass ratio] 21.2 mg/mg Normal [facility] Comment on above: Performed By: #### T 7, LIPID, TSH, CMP #### [facility] [address] [place] [address] Dr. Judd Andrade TSHon 07-03-2022 TSH 1.037 uIU/mL Normal 0.358-3.740 [facility] Comment on above: Performed By: #### T 7, LIPID, TSH, CMP #### [facility] [address] [place] [address] Dr. Judd Andrade VITAMIN D 25 OHon 07-03-2022 VIT D 25-OH 32.8 ng/mL Normal [facility] Comment on above: Performed By: #### V CARMELO, IRON #### [facility] [address] [place] [address] Dr. Judd Andrade VIT D RANGES SEE BELOW Normal [facility] Comment on above: Result Comment: <20 ng/mL Vit D deficient 20 - <30 ng/mL Vit D insufficient 30 - 100 ng/mL Vit D sufficient >100 ng/mL Potential Toxicity Performed By: #### V CARMELO, IRON #### [facility] [address] [place] [address] Dr. Judd Andrade BORDETELLA PERTUSSIS AB IGGo n 06-30-2022 B pertussis IgG Ab 3.88 index Invalid Interpretation Code 0.00-0.94 [facility] Comment on above: Result Comment: Clie nt Requested Flag Negative <0.95 Equivocal 0.95 - 1.04 Positive >1.04 Performed By: #### C BC #### [facility] [address] [place] [address] Dr. Judd Andrade BORDETELLA PERTUSSIS AB IGMo n 06-30-2022 B pertussis IgM Ab <1.0 Normal 0.0-0.9 [facility] Comment on above: Result Comment: Nega tive <1.0 Borderline 1.0 - 1.1 Positive >1.1 Performed By: #### H STROPN, CMP #### [facility] [address] [place] [address] Dr. Judd Andrade [id number] 2022 Oqfct-[id number], Serum 158 mg/dL Normal 101-187 [facility] Comment on above: Performed By: #### C BC #### [facility] [address] [place] [address] Dr. Judd Andrade CBC AUTO DIFFon 06-03-2022 BASO # 0.0 103/ul Normal 0.0-0.1 [facility] Comment on above: Performed By: #### H STROPN, CMP #### [facility] [address] [place] [address] Dr. Judd Andrade Basophils/100 WBC (Bld) 0.6 % Normal 0.2-2.0 [facility] Comment on above: Performed By: #### H STROPN, CMP #### [facility] [address] [place] [address] Dr. Judd Andrade EO # 0.0 103/ul Normal 0.0-0.7 [facility] Comment on above: Performed By: #### H STROPN, CMP #### [facility] [address] [place] [address] Dr. Judd Andrade Eosinophils/100 WBC (Bld) 0.6 % Critically low 0.9-7.0 [facility] Comment on above: Performed By: #### H STROPN, CMP #### [facility] [address] [place] [address] Dr. Judd Andrade Erythrocyte distribution width (RBC) [Ratio] 13.5 % Normal 11.0-15.0 [facility] Comment on above: Performed By: #### H STROPN, CMP #### [facility] [address] [place] [address] Dr. Judd Andrade Hematocrit (Bld) [Volume fraction] 42.4 % Normal 36.0-48.0 [facility] Comment on above: Performed By: #### H STROPN, CMP #### [facility] [address] [place] [address] Dr. Judd Andrade Hemoglobin (Bld) [Mass/Vol] 13.4 g/dL Normal 12.0-16.0 [facility] Comment on above: Performed By: #### H STROPN, CMP #### [facility] [address] [place] [address] Dr. Judd Andrade IG # 0.01 10e3/ul Normal 0.00-0.03 [facility] Comment on above: Performed By: #### H STROPN, CMP #### [facility] [address] [place] [address] Dr. Judd Andrade IG % 0.2 % Normal 0.0-0.5 [facility] Comment on above: Performed By: #### H DEB, CMP #### [facility] [address] [address] [address] Judd Andrade LYMPH # 1.1 103/ul Critically low 1.2-3.8 [facility] Comment on above: Performed By: #### H TERAPN, CMP #### [facility] [address] [address] [address] Judd Andrade Lymphocytes/100 WBC (Bld) 23.5 % Normal 20.5-60.0 [facility] Comment on above: Performed By: #### H DEB, CMP #### [facility] [address] [place] [address] Dr. Judd Andrade MANUAL DIFF REQ NO Normal [facility] Comment on above: Performed By: #### H DEB, CMP #### [facility] [address] [place] [address] Dr. Judd Andrade MCH (RBC) [Entitic mass] 28.9 pg Normal 26.7-34.0 [facility] Comment on above: Performed By: #### H DEB, CMP #### [facility] [address] [place] [address] Dr. Judd Andrade MCHC (RBC) [Mass/Vol] 31.6 g/dL Normal 29.9-35.2 [facility] Comment on above: Performed By: #### H TEARPN, CMP #### [facility] [address] [place] [address] Dr. Judd Andrade MCV (RBC) [Entitic vol] 91.6 fL Normal 81.0-99.0 [facility] Comment on above: Performed By: #### H TERAPN, CMP #### [facility] [address] [place] [address] Dr. Judd Andrade MONO # 0.8 103/ul Normal 0.3-0.8 [facility] Comment on above: Performed By: #### H TERAPN, CMP #### [facility] [address] [address] [address] Judd Andrade Monocytes/100 WBC (Bld) 16.5 % Critically high 1.7-12.0 [facility] Comment on above: Performed By: #### H STROPN, CMP #### [facility] [address] [place] [address] Dr. Judd Andrade NEUT # 2.7 103/ul Normal 1.4-6.5 [facility] Comment on above: Performed By: #### H STROPN, CMP #### [facility] [address] [place] [address] Dr. Judd Andrade Neutrophils/100 WBC (Bld) 58.6 % Normal 43.0-75.0 [facility] Comment on above: Performed By: #### H STRONETO, CMP #### [facility] [address] [place] [address] Dr. Judd Andrade Platelet mean volume (Bld) [Entitic vol] 9.8 fL Normal 9.5-13.5 [facility] Comment on above: Performed By: #### H DEB, CMP #### [facility] [address] [place] [address] Dr. Judd Andrade PLT 252 103/ul Normal 150-450 [facility] Comment on above: Performed By: #### H DEB, CMP #### [facility] [address] [place] [address] Dr. Judd Andrade RBC 4.63 106/ul Normal 4.20-5.40 [facility] Comment on above: Performed By: #### H STROPN, CMP #### [facility] [address] [place] [address] Dr. Judd Andraed WBC 4.7 103/ul Normal 4.0-11.0 [facility] Comment on above: Performed By: #### H STROPN, CMP #### [facility] [address] [place] [address] Dr. Judd Andrade PROF 14(COMP METB)on 023 Albumin [Mass/Vol] 4.0 g/dL Normal 3.4-5.0 [facility] Comment on above: Performed By: #### H STROPN, CMP #### [facility] [address] [address] [address] Judd Andrade Albumin/Globulin [Mass ratio] 1.0 {ratio} Normal [facility] Comment on above: Performed By: #### H STROPN, CMP #### [facility] [address] [address] [address] Judd Andrade ALP [Catalytic activity/Vol] 77 U/L Normal 46-116 [facility] Comment on above: Performed By: #### H STROPN, CMP #### [facility] [address] [address] [address] Judd Andrade ALT [Catalytic activity/Vol] 33 U/L Normal 14-59 [facility] Comment on above: Performed By: #### H STROPN, CMP #### [facility] [address] [address] [address] Judd Andrade Anion gap [Moles/Vol] 8.0 mmol/L Normal [facility] Comment on above: Performed By: #### H STROPN, CMP #### [facility] [address] [address] [address] Judd Andrade AST [Catalytic activity/Vol] 28 U/L Normal 15-37 [facility] Comment on above: Performed By: #### H STROPN, CMP #### [facility] [address] [address] [address] Judd Andrade Bilirubin [Mass/Vol] 0.6 mg/dL Normal 0.2-1.0 [facility] Comment on above: Performed By: #### H STROPN, CMP #### [facility] [address] [address] [address] Judd Andrade Calcium [Mass/Vol] 9.3 mg/dL Normal 8.5-10.1 [facility] Comment on above: Performed By: #### H STROPN, CMP #### [facility] [address] [address] [address] Judd Andrade Chloride [Moles/Vol] 103 mmol/L Normal 98-107 [facility] Comment on above: Performed By: #### H STROPN, CMP #### [facility] [address] [address] [address] Judd Andrade CO2 [Moles/Vol] 33.6 mmol/L Critically high 21.0-32.0 [facility] Comment on above: Performed By: #### H STROPN, CMP #### [facility] [address] [address] [address] Judd Andrade Creatinine [Mass/Vol] 0.59 mg/dL Normal 0.55-1.02 [facility] Comment on above: Performed By: #### H STROPN, CMP #### [facility] [address] [address] [address] Judd Andrade EGFR-AF GABONESE >60 Normal >=60 [facility] Comment on above: Performed By: #### H STROPN, CMP #### [facility] [address] [address] [address] Judd Andrade EGFR-NON AF GABONESE >60 Normal >=60 [facility] Comment on above: Performed By: #### H STROPN, CMP #### [facility] [address] [address] [address] Judd Andrade Globulin (S) [Mass/Vol] 4.0 g/dL Normal [facility] Comment on above: Performed By: #### H STROPN, CMP #### [facility] [address] [address] [address] Judd Andrade Glucose [Mass/Vol] 130 mg/dL Critically high 74-106 [facility] Comment on above: Performed By: #### H STROPN, CMP #### [facility] [address] [address] [address] Judd Andrade Potassium [Moles/Vol] 3.6 mmol/L Normal 3.5-5.1 [facility] Comment on above: Performed By: #### H STROPN, CMP #### [facility] [address] [address] [address] Judd Andrade Protein [Mass/Vol] 8.0 g/dL Normal 6.4-8.2 [facility] Comment on above: Performed By: #### H STROPN, CMP #### [facility] [address] [address] [address] Judd Andrade Sodium [Moles/Vol] 141 mmol/L Normal 136-145 [facility] Comment on above: Performed By: #### H STROPN, CMP #### [facility] [address] [address] [address] Judd Andrade Urea nitrogen [Mass/Vol] 8.0 mg/dL Normal 7.0-18.0 [facility] Comment on above: Performed By: #### H TERAPN, CMP #### [facility] [address] [address] [address] Judd Andrade Urea nitrogen/Creatinine [Mass ratio] 13.6 mg/mg Normal [facility] Comment on above: Performed By: #### H TERAPN, CMP #### [facility] [address] [address] [address] Judd Andrade TROPONIN, HIGH SENSITIVITYon 06-03-2022 HSTROP <4.0 Normal 4.0-51.3 [facility] Comment on above: Result Comment: CUT- OFF POINTS HAVE BEEN ESTABLISHED BASED ON THE FOURTH UNIVERSAL DEFINITIONS OF MYOCARDIAL INFARCTION. THE UPPER REFERENCE LIMIT (URL) OF TROPONIN, DEFINED THE 99TH PERCENTILE OF cTnI DISTRIBUTION IN A REFERENCE POPULATION, HAS BEEN CONFIRMED THE DECISION THRESHOLD FOR PA DIAGNOSIS. Performed By: #### H TERAPN, CMP #### [facility] [address] [place] [address] Dr. Judd Andrade XR CHEST 2 Von [...] by: LINDA RHODES Date: 2022-06-03 12:15 Normal [facility] Covid-19 PCR (CVDTBH)on SARS-CoV-2 (COVID-19) RNA JOLLY+probe Ql (Unsp spec) Not detected Normal NOT DETECTED [facility] Comment on above: Result Comment: This test is not yet approved or cleared by the [place] FDA. When there are no FDA-approved or cleared tests available, and other criteria are met, FDA can make tests available under an emergency access mechanism called an Emergency Use Authorization (EUA). The EUA for this test is supported by the [place] of Health and Human Service's (HHS's) declaration [...] Performed By: #### H DEB, CMP #### [facility] [address] [address] [address] Judd Andrade INFLUENZA A AND B AGon 06-02 [facility] SEE BELOW Normal [facility] Comment on above: Result Comment: Nega tive for Flu A protein angiten. Infection due to Flu A cannot be ruled out. Flu A angiten in the sample may be below the detection limit of the test. Performed By: #### H DEB, CMP #### [facility] [address] [address] [address] Judd Andrade [facility] SEE BELOW Normal [facility] Comment on above: Result Comment: Nega tive for Flu B protein antigen. Infection due to Flu B cannot be ruled out. Flu B antigen in the sample may be below the detection limit of the test. Performed By: #### H TEARPN, CMP #### [facility] [address] [address] [address] Judd Andrade INFLUENZA A AG Negative Normal NEGATIVE SEE COMMENT [facility] Comment on above: Performed By: #### H STROPN, CMP #### [facility] [address] [place], [place] [address] Dr. Judd Andrade INFLUENZA B AG Negative Normal NEGATIVE SEE COMMENT [facility] Comment on above: Performed By: #### H STROPN, CMP #### [facility] [address] [place], [place] [address] Dr[address] US ST HEAD_NECKon 02-11-2022 [...] GABO STRONG Date: 2022-02-11 16:24 Normal [facility] MG MAMM SCREEN 3D SUSANA CADon 02-10-2022 MG MAMM SCREEN 3D SUSANA CAD Patient: YULIA CASTANO Exam Date: 02/10/2022 : 1965 Gender:F Ordering : DR JOHN PORTER . Admission #: [id number] Family : Order #: [id number] CLICK HERE TO VIEW EXAM RADIOLOGY REPORT [...] breast cancer at age 40. LOCATION: [facility] BREAST COMPOSITION: Almost entirely fatty. FINDINGS: DIAGNOSTIC [...] M.D. on 02/11/2022 at 14:20 Normal [facility] XR CHEST 1 Von [...] No acute findings. Electronically authenticated by: KAREN VADLEZ Date: 2022-01-15 18:39 Normal [facility] CBC AUTO DIFFon 12-30-2021 BASO # 0.0 103/ul Normal 0.0-0.1 [facility] Comment on above: Performed By: #### C BC #### [facility] [address] [address] [address] Judd Andrade Basophils/100 WBC (Bld) 0.6 % Normal 0.2-2.0 [facility] Comment on above: Performed By: #### C BC #### [facility] [address] [address] [address] Judd Andrade EO # 0.1 103/ul Normal 0.0-0.7 [facility] Comment on above: Performed By: #### C BC #### [facility] [address] [address] [address] Judd Andrade Eosinophils/100 WBC (Bld) 2.1 % Normal 0.9-7.0 [facility] Comment on above: Performed By: #### C BC #### [facility] [address] [address] [address] Judd Andrade Erythrocyte distribution width (RBC) [Ratio] 13.0 % Normal 11.0-15.0 [facility] Comment on above: Performed By: #### C BC #### [facility] [address] [place] [address] Dr. Judd Andrade Hematocrit (Bld) [Volume fraction] 41.9 % Normal 36.0-48.0 [facility] Comment on above: Performed By: #### C BC #### [facility] [address] [place] [address] Dr. Judd Andrade Hemoglobin (Bld) [Mass/Vol] 13.7 g/dL Normal 12.0-16.0 [facility] Comment on above: Performed By: #### C BC #### [facility] [address] [place] [address] Dr. Judd Andrade IG # 0.03 10e3/ul Normal 0.00-0.03 [facility] Comment on above: Performed By: #### C BC #### [facility] [address] [place] [address] Dr. Judd Andrade IG % 0.6 % Critically high 0.0-0.5 [facility] Comment on above: Performed By: #### C BC #### [facility] [address] [place] [address] Dr. Judd Andrade LYMPH # 1.9 103/ul Normal 1.2-3.8 [facility] Comment on above: Performed By: #### C BC #### [facility] [address] [place] [address] Dr. Judd Andrade Lymphocytes/100 WBC (Bld) 34.5 % Normal 20.5-60.0 [facility] Comment on above: Performed By: #### C BC #### [facility] [address] [place] [address] Dr. Judd Andrade MANUAL DIFF REQ NO Normal [facility] Comment on above: Performed By: #### C BC #### [facility] [address] [place] [address] Dr. Judd Andrade MCH (RBC) [Entitic mass] 28.5 pg Normal 26.7-34.0 [facility] Comment on above: Performed By: #### C BC #### [facility] [address] [place] [address] Dr. Judd Andrade MCHC (RBC) [Mass/Vol] 32.7 g/dL Normal 29.9-35.2 [facility] Comment on above: Performed By: #### C BC #### [facility] [address] [place] [address] Dr. Judd Andrade MCV (RBC) [Entitic vol] 87.1 fL Normal 81.0-99.0 [facility] Comment on above: Performed By: #### C BC #### [facility] [address] [place] [address] Dr. Judd Andrade MONO # 0.6 103/ul Normal 0.3-0.8 [facility] Comment on above: Performed By: #### C BC #### [facility] [address] [place] [address] Dr. Judd Andrade Monocytes/100 WBC (Bld) 10.4 % Normal 1.7-12.0 [facility] Comment on above: Performed By: #### C BC #### [facility] [address] [place] [address] Dr. Judd Andrade NEUT # 2.8 103/ul Normal 1.4-6.5 [facility] Comment on above: Performed By: #### C BC #### [facility] [address] [place] [address] Dr. Judd Andrade Neutrophils/100 WBC (Bld) 51.8 % Normal 43.0-75.0 [facility] Comment on above: Performed By: #### C BC #### [facility] [address] [place] [address] Dr. Judd Andrade Platelet mean volume (Bld) [Entitic vol] 10.5 fL Normal 9.5-13.5 [facility] Comment on above: Performed By: #### C BC #### [facility] [address] [place] [address] Dr. Judd Andrade PLT 270 103/ul Normal 150-450 [facility] Comment on above: Performed By: #### C BC #### [facility] [address] [place] [address] Dr. Judd Andrade RBC 4.81 106/ul Normal 4.20-5.40 [facility] Comment on above: Performed By: #### C BC #### [facility] [address] [place] [address] Dr. Judd Andrade WBC 5.4 103/ul Normal 4.0-11.0 [facility] Comment on above: Performed By: #### C BC #### [facility] [address] [place] [address] Dr. Judd Andrade CRPon 12-30-2021 CRP [Mass/Vol] mg/L Normal <=1.0 [facility] Comment on above: Performed By: #### C BC #### [facility] [address] [place] [address] Dr. Judd Andrade PROF 14(COMP METB)on 022 Albumin [Mass/Vol] 3.9 g/dL Normal 3.4-5.0 [facility] Comment on above: Performed By: #### C BC #### [facility] [address] [place] [address] Dr. Judd Andrade Albumin/Globulin [Mass ratio] 1.0 {ratio} Normal [facility] Comment on above: Performed By: #### C BC #### [facility] [address] [place] [address] Dr. Judd Andrade ALP [Catalytic activity/Vol] 64 U/L Normal 46-116 [facility] Comment on above: Performed By: #### C BC #### [facility] [address] [place] [address] Dr. Judd Andrade ALT [Catalytic activity/Vol] 50 U/L Normal 14-59 [facility] Comment on above: Performed By: #### C BC #### [facility] [address] [place] [address] Dr. Judd Andrade Anion gap [Moles/Vol] 11.1 mmol/L Normal [facility] Comment on above: Performed By: #### C BC #### [facility] [address] [place] [address] Dr. Judd Andrade AST [Catalytic activity/Vol] 28 U/L Normal 15-37 [facility] Comment on above: Performed By: #### C BC #### [facility] [address] [place] [address] Dr. Judd Andrade Bilirubin [Mass/Vol] 0.5 mg/dL Normal 0.2-1.0 [facility] Comment on above: Performed By: #### C BC #### [facility] [address] [place] [address] Dr. Judd Andrade Calcium [Mass/Vol] 8.9 mg/dL Normal 8.5-10.1 [facility] Comment on above: Performed By: #### C BC #### [facility] [address] [place] [address] Dr. Judd Andrade Chloride [Moles/Vol] 101 mmol/L Normal 98-107 [facility] Comment on above: Performed By: #### C BC #### [facility] [address] [place] [address] Dr. Judd Andrade CO2 [Moles/Vol] 29.4 mmol/L Normal 21.0-32.0 [facility] Comment on above: Performed By: #### C BC #### [facility] [address] [place] [address] Dr. Judd Andrade Creatinine [Mass/Vol] 0.73 mg/dL Normal 0.55-1.02 [facility] Comment on above: Performed By: #### C BC #### [facility] [address] [place] [address] Dr. Judd Andrade EGFR-AF GABONESE >60 Normal >=60 [facility] Comment on above: Performed By: #### C BC #### [facility] [address] [place] [address] Dr. Judd Andrade EGFR-NON AF GABONESE >60 Normal >=60 [facility] Comment on above: Performed By: #### C BC #### [facility] [address] [place] [address] Dr. Judd Andrade Globulin (S) [Mass/Vol] 3.8 g/dL Normal [facility] Comment on above: Performed By: #### C BC #### [facility] [address] [address] [address] Judd Andrade Glucose [Mass/Vol] 139 mg/dL Critically high 74-106 T [facility] Comment on above: Performed By: #### C BC #### [facility] [address] [address] [address] Judd Andrade Potassium [Moles/Vol] 3.5 mmol/L Normal 3.5-5.1 [facility] Comment on above: Performed By: #### C BC #### [facility] [address] [address] [address] Judd Andrade Protein [Mass/Vol] 7.7 g/dL Normal 6.4-8.2 [facility] Comment on above: Performed By: #### C BC #### [facility] [address] [address] [address] Judd Andrade Sodium [Moles/Vol] 138 mmol/L Normal 136-145 [facility] Comment on above: Performed By: #### C BC #### [facility] [address] [address] [address] Judd Andrade Urea nitrogen [Mass/Vol] 12.0 mg/dL Normal 7.0-18.0 [facility] Comment on above: Performed By: #### C BC #### [facility] [address] [address] [address] Judd Andrade Urea nitrogen/Creatinine [Mass ratio] 16.4 mg/mg Normal [facility] Comment on above: Performed By: #### C BC #### [facility] [address] [address] [address] Judd Andrade XR CHEST 2 Von [...] ARTEMIO DIXON Date: 2021-12-29 20:49 Normal [facility] TRYPTASEon 12-27-2021 Tryptase 4.5 ug/L Normal 2.2-13.2 [facility] Comment on above: Performed By: #### C BC #### [facility] [address] [place] [address] Dr. Judd Andrade CBC AUTO DIFFon 12-23-2021 BASO # 0.0 103/ul Normal 0.0-0.1 [facility] Comment on above: Performed By: #### H STROPN, CMP #### [facility] [address] [place] [address] Dr. Judd Andrade Basophils/100 WBC (Bld) 0.7 % Normal 0.2-2.0 [facility] Comment on above: Performed By: #### H STROPN, CMP #### [facility] [address] [place] [address] Dr. Judd Andrade EO # 0.0 103/ul Normal 0.0-0.7 [facility] Comment on above: Performed By: #### H STROPN, CMP #### [facility] [address] [place] [address] Dr. Judd Andrade Eosinophils/100 WBC (Bld) 0.0 % Critically low 0.9-7.0 [facility] Comment on above: Performed By: #### H STROPN, CMP #### [facility] [address] [place] [address] Dr. Judd Andrade Erythrocyte distribution width (RBC) [Ratio] 13.2 % Normal 11.0-15.0 [facility] Comment on above: Performed By: #### H STROPN, CMP #### [facility] [address] [place] [address] Dr. Judd Andrade Hematocrit (Bld) [Volume fraction] 42.1 % Normal 36.0-48.0 [facility] Comment on above: Performed By: #### H STROPN, CMP #### [facility] [address] [place] [address] Dr. Judd Andrade Hemoglobin (Bld) [Mass/Vol] 13.7 g/dL Normal 12.0-16.0 [facility] Comment on above: Performed By: #### H STROPN, CMP #### [facility] [address] [address] [address] Judd Andrade IG # 0.01 10e3/ul Normal 0.00-0.03 [facility] Comment on above: Performed By: #### H STROPN, CMP #### [facility] [address] [address] [address] Judd Andrade IG % 0.3 % Normal 0.0-0.5 [facility] Comment on above: Performed By: #### H STROPN, CMP #### [facility] [address] [address] [address] Judd nAdrade LYMPH # 0.7 103/ul Critically low 1.2-3.8 [facility] Comment on above: Performed By: #### H STROPN, CMP #### [facility] [address] [address] [address] Judd Andrade Lymphocytes/100 WBC (Bld) 24.1 % Normal 20.5-60.0 [facility] Comment on above: Performed By: #### H STROPN, CMP #### [facility] [address] [place] [address] Dr. Judd Andrade MANUAL DIFF REQ NO Normal [facility] Comment on above: Performed By: #### H STROPN, CMP #### [facility] [address] [address] [address] Judd Andrade MCH (RBC) [Entitic mass] 28.4 pg Normal 26.7-34.0 [facility] Comment on above: Performed By: #### H STROPN, CMP #### [facility] [address] [address] [address] Judd Andrade MCHC (RBC) [Mass/Vol] 32.5 g/dL Normal 29.9-35.2 [facility] Comment on above: Performed By: #### H STROPN, CMP #### [facility] [address] [address] [address] Judd Andrade MCV (RBC) [Entitic vol] 87.2 fL Normal 81.0-99.0 [facility] Comment on above: Performed By: #### H STROPN, CMP #### [facility] [address] [place] [address] Dr. Judd Andrade MONO # 0.5 103/ul Normal 0.3-0.8 [facility] Comment on above: Performed By: #### H STROPN, CMP #### [facility] [address] [place] [address] Dr. Judd Andrade Monocytes/100 WBC (Bld) 16.9 % Critically high 1.7-12.0 [facility] Comment on above: Performed By: #### H STROPN, CMP #### [facility] [address] [place] [address] Dr. Judd Andrade NEUT # 1.8 103/ul Normal 1.4-6.5 [facility] Comment on above: Performed By: #### H STROPN, CMP #### [facility] [address] [place] [address] Dr. Judd Andrade Neutrophils/100 WBC (Bld) 58.0 % Normal 43.0-75.0 [facility] Comment on above: Performed By: #### H STROPN, CMP #### [facility] [address] [place] [address] Dr. Judd Andrade Platelet mean volume (Bld) [Entitic vol] 9.9 fL Normal 9.5-13.5 [facility] Comment on above: Performed By: #### H STROPN, CMP #### [facility] [address] [place] [address] Dr. Judd Andrade PLT 210 103/ul Normal 150-450 [facility] Comment on above: Performed By: #### H STROPN, CMP #### [facility] [address] [place] [address] Dr. Judd Andrade RBC 4.83 106/ul Normal 4.20-5.40 [facility] Comment on above: Performed By: #### H STROPN, CMP #### [facility] [address] [place] [address] Dr. Judd Andrade WBC 3.1 103/ul Critically low 4.0-11.0 [facility] Comment on above: Performed By: #### H TERAPN, [facility] #### [facility] [address] [place] [address] Dr. Judd CRAMERon 12-23-2021 Iron [Mass/Vol] 35.0 ug/dL Critically low 50.0-170.0 [facility] Comment on above: Performed By: #### C BC #### [facility] [address] [place] [address] Dr. Judd Andrade PROF 14(COMP METB)on 022 Albumin [Mass/Vol] 3.9 g/dL Normal 3.4-5.0 [facility] Comment on above: Performed By: #### C BC #### [facility] [address] [place] [address] Dr. Judd Andrade Albumin/Globulin [Mass ratio] 1.0 {ratio} Normal [facility] Comment on above: Performed By: #### C BC #### [facility] [address] [place] [address] Dr. Judd Andrade ALP [Catalytic activity/Vol] 70 U/L Normal 46-116 [facility] Comment on above: Performed By: #### C BC #### [facility] [address] [place] [address] Dr. Judd Andrade ALT [Catalytic activity/Vol] 43 U/L Normal 14-59 [facility] Comment on above: Performed By: #### C BC #### [facility] [address] [place] [address] Dr. Judd Andrade Anion gap [Moles/Vol] 11.5 mmol/L Normal [facility] Comment on above: Performed By: #### C BC #### [facility] [address] [place] [address] Dr. Judd Andrade AST [Catalytic activity/Vol] 33 U/L Normal 15-37 [facility] Comment on above: Performed By: #### C BC #### [facility] [address] [place] [address] Dr. Judd Andrade Bilirubin [Mass/Vol] 0.3 mg/dL Normal 0.2-1.0 [facility] Comment on above: Performed By: #### C BC #### [facility] [address] [address] [address] Judd Andrade Calcium [Mass/Vol] 8.9 mg/dL Normal 8.5-10.1 [facility] Comment on above: Performed By: #### C BC #### [facility] [address] [address] [address] Judd Andrade Chloride [Moles/Vol] 101 mmol/L Normal 98-107 [facility] Comment on above: Performed By: #### C BC #### [facility] [address] [place] [address] Dr. Judd Andrade CO2 [Moles/Vol] 31.1 mmol/L Normal 21.0-32.0 [facility] Comment on above: Performed By: #### C BC #### [facility] [address] [place] [address] Dr. Judd Andrade Creatinine [Mass/Vol] 0.69 mg/dL Normal 0.55-1.02 [facility] Comment on above: Performed By: #### C BC #### [facility] [address] [place] [address] Dr. Judd Andrade EGFR-AF GABONESE >60 Normal >=60 [facility] Comment on above: Performed By: #### C BC #### [facility] [address] [place] [address] Dr. Judd Andrade EGFR-NON AF GABONESE >60 Normal >=60 [facility] Comment on above: Performed By: #### C BC #### [facility] [address] [place] [address] Dr. Judd Andrade Globulin (S) [Mass/Vol] 3.8 g/dL Normal [facility] Comment on above: Performed By: #### C BC #### [facility] [address] [place] [address] Dr. Judd Andrade Glucose [Mass/Vol] 103 mg/dL Normal 74-106 [facility] Comment on above: Performed By: #### C BC #### [facility] [address] [address] [address] Judd Andrade Potassium [Moles/Vol] 3.6 mmol/L Normal 3.5-5.1 [facility] Comment on above: Performed By: #### C BC #### [facility] [address] [address] [address] Judd Andrade Protein [Mass/Vol] 7.7 g/dL Normal 6.4-8.2 [facility] Comment on above: Performed By: #### C BC #### [facility] [address] [address] [address] Judd Andrade Sodium [Moles/Vol] 140 mmol/L Normal 136-145 [facility] Comment on above: Performed By: #### C BC #### [facility] [address] [address] [address] Judd Andrade Urea nitrogen [Mass/Vol] 11.0 mg/dL Normal 7.0-18.0 [facility] Comment on above: Performed By: #### C BC #### [facility] [address] [address] [address] Judd Andrade Urea nitrogen/Creatinine [Mass ratio] 15.9 mg/mg Normal [facility] Comment on above: Performed By: #### C BC #### [facility] [address] [address] [address] Judd Andrade PROTIMEon 12-23-2021 INR Coag (PPP) [Relative time] 1.04 {INR} Normal [facility] Comment on above: Performed By: #### H DEB, CMP #### [facility] [address] [address] [address] Judd Andrade INR GUIDELINES SEE BELOW Normal [facility] Comment on above: Result Comment: PRIETO RED INR: 2.0 - 3.0 CONDITIONS NOT LISTED BELOW 2.5 - 3.5 FOR PROSTHETIC HEART VALVE REPLACEMENT 2.5 - 3.5 RECURRENT THROMBOSIS Performed By: #### H DEB, CMP #### [facility] [address] [place] [address] Dr. Judd Andrade PT Coag (PPP) [Time] 11.2 s Normal 9.0-11.6 [facility] Comment on above: Performed By: #### H DEB, CMP #### [facility] [address] [place] [address] Dr. Judd Andrade PTTon 12-23-2021 aPTT Coag (Bld) [Time] 31.5 s Normal 22.3-36.2 [facility] Comment on above: Performed By: #### H DEB, CMP #### [facility] [address] [place] [address] Dr. Judd Andrade ER URINE PROFILEon Bilirubin Ql (U) Negative Normal NEGATIVE [facility] Comment on above: Performed By: #### H DEB, CMP #### [facility] [address] [place] [address] Dr. Judd Andrade Clarity (U) CLEAR Normal CLEAR [facility] Comment on above: Performed By: #### H DEB, CMP #### [facility] [address] [place] [address] Dr. Judd Andrade Color (U) LT. YELLOW Normal YELLOW [facility] Comment on above: Performed By: #### H DEB, CMP #### [facility] [address] [place] [address] Dr. Judd SMITH A micrscopic examination will be performed if indicated. Normal [facility] Comment on above: Performed By: #### H DEB, CMP #### [facility] [address] [place] [address] Dr. Judd Andrade Glucose Ql (U) Negative Normal NEGATIVE [facility] Comment on above: Performed By: #### H DEB, CMP #### [facility] [address] [place] [address] Dr. Judd Andrade Hemoglobin Ql (U) TRACE-INTACT Abnormal NEGATIVE [facility] Comment on above: Performed By: #### H DEB, CMP #### [facility] [address] [place] [address] Dr. Judd Andrade Ketones Ql (U) Negative Normal NEGATIVE [facility] Comment on above: Performed By: #### H STROPN, CMP #### [facility] [address] [address] [address] Judd Andrade LEUKOCYTES Negative Normal NEGATIVE [facility] Comment on above: Performed By: #### H STROPN, CMP #### [facility] [address] [address] [address] Judd Andrade Nitrite Ql (U) Negative Normal NEGATIVE [facility] Comment on above: Performed By: #### H STROPN, CMP #### [facility] [address] [address] [address] Judd Andrade pH (U) 6.0 [pH] Normal 5-9 [facility] Comment on above: Performed By: #### H STROPN, CMP #### [facility] [address] [place] [address] Dr. Judd Andrade SPEC GRAVITY 1.005 Normal 1.005-<=1.025 [facility] Comment on above: Performed By: #### H STROPN, CMP #### [facility] [address] [place] [address] Dr. Judd Andrade UA PROTEIN Negative Normal NEGATIVE/ TRACE [facility] Comment on above: Performed By: #### H STROPN, CMP #### [facility] [address] [place] [address] Dr. Judd Andrade UR MICRO IND INDICATED Normal [facility] Comment on above: Performed By: #### H STROPN, CMP #### [facility] [address] [place] [address] Dr. Judd Andrade Urobilinogen Qn (U) 0.2 {Carol'U}/dL Normal 0.2 - 1. 0 [facility] Comment on above: Performed By: #### H STROPN, CMP #### [facility] [address] [place] [address] Dr. Judd Andrade URINE MICROSCOPIC ONLYon BACTERIA NONE SEEN Normal NONE SEEN [facility] Comment on above: Performed By: #### H STROPN, CMP #### [facility] [address] [address] [address] Judd Andrade Bacteria identified Cx Nom (U) NOT INDICATED Normal [facility] Comment on above: Performed By: #### H STROPN, CMP #### [facility] [address] [address] [address] Judd Andrade CAST NONE SEEN Normal NONE SEEN [facility] Comment on above: Performed By: #### H STROPN, CMP #### [facility] [address] [address] [address] Judd Andrade Crystals LM Nom (Urine sed) NONE SEEN Normal NONE SEEN [facility] Comment on above: Performed By: #### H STROPN, CMP #### [facility] [address] [place] [address] Dr. Judd Andrade Epithelial cells LM Ql (Urine sed) FEW Abnormal NONE SEEN /RARE [facility] Comment on above: Performed By: #### H STROPN, CMP #### [facility] [address] [place] [address] Dr. Judd Andrade MUCOUS NONE SEEN Normal NONE SEEN [facility] Comment on above: Performed By: #### H STROPN, CMP #### [facility] [address] [place] [address] Dr. Judd Andrade RBC 0-2 Normal 0-2 [facility] Comment on above: Performed By: #### H STROPN, CMP #### [facility] [address] [place] [address] Dr. Judd Andrade WBC NONE SEEN Normal NONE SEEN [facility] Comment on above: Performed By: #### H STROPN, CMP #### [facility] [address] [place] [address] Dr. Judd Andrade Vital Signs Date Time Vital Sign Value Performing Clinician Briana muñoz 12-30-2023 13:48-0400 Blood Pressure Location Bessie Gong [facility] 12-30-2023 13:48-0400 Diastolic blood pressure 82 mm[Hg] Bessie Gong [facility] 12-30-2023 13:48-0400 Heart rate 80 /min Bessie Gong [facility] 12-30-2023 13:48-0400 Respiratory rate 16 /min Bessie Farideh [facility] 12-30-2023 13:48-0400 Systolic blood pressure 117 mm[Hg] Bessie Farideh [facility] Encounters Encounter Date Encounter Type Care Provider Facility Start: 12-30-2023 End: 12-30-2023 ambulatory Bessie Gong Facility:[facility] Start: 12-30-2023 End: 12-30-2023 Patient encounter procedure Bessie Gong [facility] Start: 12-21-2023 End: 12-21-2023 ambulatory NATALIE TINSLEY Not Available Start: 10-04-2023 End: 10-04-2023 ambulatory KATIE JUANJOSE Not Available Start: 06-30-2023 End: 06-30-2023 ambulatory KATIE JUANJOSE Not Available Start: 06-24-2023 End: 06-24-2023 ambulatory VALE HI Not Available Start: 03-23-2023 End: 03-23-2023 ambulatory KATIE JUANJOSE Not Available Start: 09-24-[address] JOHN PORTER . Facili ty:[facility] Start: 09-22-2022 End: 09-23-[address] KATIE RUST . Facility: Start: 08-29-2022 End: 08-30-[address] JOHN PORTER . Facility:[facility] Start: 08-11-2022 End: 08-12-[address] JOHN PORTER . Facility:[facility] Start: 07-28-2022 End: 07-29-[address] KATIE RUST . Facility:[facility] Start: 07-03-2022 End: 07-04-[address] JOHN PORTER . Facility:[facility] Start: 06-29-2022 Encounter for antibo dy response examination DR JOHN PORTER . [facility] Start: 06-26-2022 End: 06-27-[address] JOHN PORTER . Facility:[facility] Start: 06-26-2022 End: 06-27-2022 Encounter for antibody response examination DR JOHN PORTER . Facility:[facility] Start: 06-05-2022 End: 06-06-[address] JOHN PORTER . Facility:[facility] Start: 06-03-2022 End: 06-04-[address] JOHN PORTER . Facility:[facility] Start: 06-02-2022 End: 06-02-[address] JOHN PORTER . Facility:[facility] Start: 06-02-2022 End: 06-02-[address] JOHN PORTER . Facility:[facility] Start: 02-24-[address] JOHN PORTER . Facili ty:[facility] Start: 02-10-2022 End: 02-11-[address] JOHN PORTER . Facility:[facility] Start: 01-27-[address] KATIE RUST . Facili ty:[facility] Start: 01-21-[address] KATIE RUST . Facili ty:[facility] Start: 01-16-2022 End: 01-17-[address] JOHN PORTER . Facility:[facility] Start: 01-15-2022 End: 01-15-2022 ambulatory ADELAIDE MAJANO . Facility:[facility] Start: 12-30-2021 End: 01-24-[address] JOHN PORTER . Facility:[facility] Start: 12-27-2021 End: 12-28-[address] JOHN PORTER . Facility:[facility] Start: 12-24-2021 End: 12-24-[address] JOHN PORTER . Facility:[facility] Start: 12-23-2021 End: 12-24-[address] JOHN PORTER . Facility:[facility] Start: 12-20-2021 End: 12-20-[address] BRYAN KC Facility:[facility] Start: 12-04-[address] KATIE RUST . Facili ty:[facility] Procedures Date Procedure Procedure Detail Performing Clinician Start: 10-17-2018 Cystourethroscopy wi th dilation of urethral stricture Bessievicki Gong Appendectomy Bessievicki Gong History of cholecystectomy A dina Gong Tonsillectomy Bessie Gong Immunizations Immunization Date Immunization Notes Care Provider Mukesh merritt 10-05-2022 tetanus toxoid, redu heide diphtheria toxoid, and acellular pertussis vaccine, adsorbed Bessievicki Gong [facility] Payers Date Payer Category Payer Unknown [id number] 1965 Unknown [id number] 2.16.84 0.1.507085.3.579.2.593 1965 Unknown [id number] 2.16.84 0.1.900934.3.579.2.593 1965 Unknown [id number] 2.16.84 0.1.303032.3.579.2.593 1965 Unknown [id number] 2.16.84 0.1.068053.3.579.2.593 1965 Unknown [id number] 2.16.84 0.1.680812.3.579.2.593 1965 Unknown [id number] 2.16.84 0.1.674753.3.579.2.593 1965 Unknown [id number] 2.16.84 0.1.452431.3.579.2.593 1965 Unknown [id number] 2.16.84 0.1.370428.3.579.2.593 1965 Unknown [id number] 2.16.84 0.1.063634.3.579.2.593 1965 Unknown [id number] 2.16.84 0.1.973997.3.579.2.593 1965 Unknown [id number] 2.16.84 0.1.795504.3.579.2.593 1965 Unknown [id number] 2.16.84 0.1.258234.3.579.2.593 1965 Unknown [id number] 2.16.84 0.1.948461.3.579.2.593 1965 Unknown [id number] 2.16.84 0.1.161218.3.579.2.593 1965 Unknown [id number] 2.16.84 0.1.060168.3.579.2.593 1965 Unknown [id number] 2.16.84 0.1.905363.3.579.2.593 1965 Unknown [id number] 2.16.84 0.1.802763.3.579.2.593 1965 Unknown [id number] 2.16.84 0.1.298584.3.579.2.593 1965 Unknown [id number] 2.16.84 0.1.650911.3.579.2.593 1965 Unknown [id number] 2.16.84 0.1.232808.3.579.2.593 1965 Unknown [id number] 2.16.84 0.1.985671.3.579.2.593 1965 Unknown [id number] 2.16.84 0.1.668379.3.579.2.593 1965 Unknown [id number] 2.16.84 0.1.909598.3.579.2.593 1965 Unknown [id number] 2.16.84 0.1.319214.3.579.2.593 1965 Unknown [id number] 2.16.84 0.1.921661.3.579.2.1259 1965 Unknown [id number] 2.16.84 0.1.870331.3.579.2.1258 1965 Unknown [id number] 2.16.84 0.1.634122.3.579.2.1258 1965 Unknown [id number] 2.16.84 0.1.492453.3.579.2.1258 1965 Unknown [id number] 2.16.840 .1.993139.3.579.2.1258 1965 Unknown [id number] 2.16.8 40.1.943889.3.579.2.727 1959 Self-pay [id number] 1959 Unknown [id number] 1959 Unknown [id number] Social History Date Type Detail Facility Start: 12-30-2023 Tobacco smoking status Ex-smoker (fi nding) [facility] Tobacco smoking status Never [facility] Sex Assigned At Female [facility] Functional Status Date Assessment Result Facility 12-30-2023 Functional Status N/A [facility] Hospital Discharge instructions 12-30-2023 Note Date & Type Note Facility 12-30-2023 Hospital Discharg e instructions Patient Education 12/30/2023 15:20:43 Kegel Exercises Kegel Exercises Kegel exercises can help strengthen your pelvic floor muscles. The pelvic floor is a group of muscles that support your rectum, small intestine, and bladder. In females, pelvic floor muscles also help support the uterus. These muscles help you control the flow of urine and stool (feces). Kegel exercises are painless and simple. They do not require any equipment. Your provider may suggest Kegel exercises to: Improve bladder and bowel control. Improve sexual response. Improve weak pelvic floor muscles after surgery to remove the uterus (hysterectomy) or after , in females. Improve weak pelvic floor muscles after prostate gland removal or surgery, in males. Kegel exercises involve squeezing your pelvic floor muscles. These are the same muscles you squeeze when you try to stop the flow of urine or keep from passing gas. The exercises can be done while sitting, standing, or lying down, but it is best to vary your position. Ask your health care provider which exercises are safe for you. Do exercises exactly as told by your health care provider and adjust them as directed. Do not begin these exercises until told by your health care provider. Exercises How to do Kegel exercises: 1.Squeeze your pelvic floor muscles tight. You should feel a tight lift in your rectal area. If you are a female, you should also feel a tightness in your vaginal area. Keep your stomach, buttocks, and legs relaxed. 2.Hold the muscles tight for up to 10 seconds. 3.Breathe normally. 4.Relax your muscles for up to 10 seconds. 5.Repeat as told by your health care provider. Repeat this exercise daily as told by your health care provider. Continue to do this exercise for at least 4 6 weeks, or for as long as told by your health care provider. You may be referred to a physical therapist who can help you learn more about how to do Kegel exercises. Depending on your condition, your health care provider may recommend: Varying how long you squeeze your muscles. Doing several sets of exercises every day. Doing exercises for several weeks. Making Kegel exercises a part of your regular exercise routine. This information is not intended to replace advice given to you by your health care provider. Make sure you discuss any questions you have with your health care provider. Document Revised: 08/21/2021 Document Reviewed: 08/21/2021 [employer] Patient Education 2023 [employer]. Follow Up Care 12/02/2023 13:46:26 With:Farideh BARRERA, Bessie Modi, URL Address: When: Unknown Comments:pending imaging and after PFPT [facility] Clinical Note 12-30-2023 Note Date & Type Note Facility 12-30-2023 Note Patient Education Obstetrics and Gynecology Kegel Exercises Kegel exercises can help strengthen your pelvic floor muscles. The pelvic floor is a group of muscles that support your rectum, small intestine, and bladder. In females, pelvic floor muscles also help support the uterus. These muscles help you control the flow of urine and stool (feces). Kegel exercises are painless and simple. They do not require any equipment. Your provider may suggest Kegel exercises to: ? Improve bladder and bowel control. ? Improve sexual response. ? Improve weak pelvic floor muscles after surgery to remove the uterus (hysterectomy) or after , in females. ? Improve weak pelvic floor muscles after prostate gland removal or surgery, in males. Kegel exercises involve squeezing your pelvic floor muscles. These are the same muscles you squeeze when you try to stop the flow of urine or keep from passing gas. The exercises can be done while sitting, standing, or lying down, but it is best to vary your position. Ask your health care provider which exercises are safe for you. Do exercises exactly as told by your health care provider and adjust them as directed. Do not begin these exercises until told by your health care provider. Exercises How to do Kegel exercises: 1. Squeeze your pelvic floor muscles tight. You should feel a tight lift in your rectal area. If you are a female, you should also feel a tightness in your vaginal area. Keep your stomach, buttocks, and legs relaxed. 2. Hold the muscles tight for up to 10 seconds. 3. Breathe normally. 4. Relax your muscles for up to 10 seconds. 5. Repeat as told by your health care provider. Repeat this exercise daily as told by your health care provider. Continue to do this exercise for at least 4?6 weeks, or for as long as told by your health care provider. You may be referred to a physical therapist who can help you learn more about how to do Kegel exercises. Depending on your condition, your health care provider may recommend: ? Varying how long you squeeze your muscles. ? Doing several sets of exercises every day. ? Doing exercises for several weeks. ? Making Kegel exercises a part of your regular exercise routine. This information is not intended to replace advice given to you by your health care provider. Make sure you discuss any questions you have with your health care provider. Document Revised: 08/21/2021 Document Reviewed: 08/21/2021 [employer] Patient Education ? 2023 [employer]. [facility] Evaluation + Plan note Note Date & Type Note Facility Evaluation + Plan note No data available for this section [facility] Progress note Note Date & Type Note Facility Progress note No data available for this section [facility] Summary Purpose Family History No Family History Records FoundNo Family History Records Found No data available for this section No Family History Records Found Advance Directives No Advanced Directives Records FoundNo Advanced Directives Records FoundNo Advanced Directives Records Found Additional Source Comments INFORMATION SOURCE (unrecogn ized section and content) DATE CREATED AUTHOR 10/02/2022 [facility] DATE CREATED AUTHOR AUTHOR'S ORGANIZ ATION 12/23/2023 [facility] EPIC DATE CREATED AUTHOR AUTHOR'S ORGANIZ ATION 01/01/2024 [facility] Patient Care team informatio n (unrecognized section and content) Personnel Name: John Porter MD Address: Address: [address] [place] [address] FOR RECORDS PERTAINING TO PATIENTS WHO ARE [...] BE BASED ON THE PRIMARY CLINICAL RECORDS. [facility] [employer] [facility]. provides no warranty or guarantee of the accuracy or completeness of information in this document.
== END 2024-01-01 12:20 | disposition home or self-care (01) ==
LOC: US 12:20
PROVIDERS: PCP Family Medicine; Visit Provider Nurse Practitioner
DX: N20.0 Calculus of kidney (principal)
CPT/HCPCS: 74018; 76775

== ENCOUNTER 2024-01-04 14:13 | Outpatient (OUT) | payer OTHER, SELFPAY ==
--- OUTSIDE RECORDS SUMMARY | 2024-01-04 14:21 | XMS_ITS | CCD ---
Author Organization [facility]iniSynv Care Team Providers Care Storekeeper Steward Name Role Phone GERMAN ., DR LOPEZ Attending Unavailable HOY ., [...] Unavailable HOY ., DR LOPEZ Admchao Unavailable ZIEBER, DR GABO Henley Consulting Unavailable [...] Unavailable JUANJOSE ., DR WILSON Attending Unavailable SEAGRAVES, DR ELLYN Dougherty Consulting Unavailable HOY ., [...] Unavailable JEAN, DR BRYAN Henley Admitting Unavailable KC, DR BRYAN Henley Attending Unavailable JEAN, DR [...] LOPEZ Admitting Unavailable LINDA RHODES Consulting Unavailable John Porter Primary Care Physician [phone] Bessie Gong Attending Unavailable VALE HI Attending Unavailable RALF RENDON Referring Unavailable JUANJOSE, KATIE Attending Unavailable JUANJOSEGENI MachucaY Attending Unavailable JUANJOSE, KATIE Attending Unavailable NATALIE TINSLEY Attending Unavailable JUANJOSE, KATIE Attending Unavailable Allergies Allergy Classification Reported Allergen(s) Allergy Type Date of Onset Reaction(s) Facility (1 source) Azithromycin Drug Allergy 2 [facility] Repository (2 sources) Imipramine Drug Allergy 3 [facility] (2 sources) Sulfonamides (Antibiotic) Drug allergy (disorder) 3 [facility] (2 sources) E.E.S. 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 [facility] Provider Letteron 12-30-2023 Provider Letter Provider Letter December 30, 2023 [place] [address] : 1965 To Whom It May Concern, Please excuse above patient from work. 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 Kidney stones (N20.0: Calculus of kidney) [...] now. -K (more content not included)... Normal [facility] Comment on above: Result Comment: Elec tronically Signed By: Bessie Quiñones\.br\Date and Time Signed: 12/30/23 15:22 EDT MG MAMM DX 3D RT CADon 09-22 MG MAMM DX 3D RT CAD Patient: GEN EYAD SCARLET Meenakshi. Exam Date: 09/22/2022 : 1965 Gender:F Ordering : DR KATIE RUST . Admission #: [id number] Family : Order #: [id number] CLICK HERE TO VIEW EXAM RADIOLOGY REPORT [...] breast cancer at age 40. LOCATION: [facility] BREAST COMPOSITION: Almost entirely fatty. FINDINGS: DIAGNOSTIC [...] MD on 09/22/2022 at 15:03 Normal [facility] US BREAST RIGHT LIMITEDon US BREAST RIGHT LIMITED Patient: YULIA CASTANO Exam Date: 09/22/2022 : 1965 Gender:F Ordering : DR KATIE RUST . Admission #: [id number] Family : Order #: [id number] CLICK HERE TO VIEW EXAM RADIOLOGY REPORT [...] breast cancer at age 40. LOCATION: [facility] BREAST COMPOSITION: Almost entirely fatty. FINDINGS: DIAGNOSTIC [...] MD on 09/22/2022 at 15:03 Normal [facility] US ST HEAD_NECKon 08-31-[address] HEAD_NECK [...] by: GABO STRONG Date: 2022-08-31 08:09 Normal [facility] US PELVIS AND TRANSVAGon US PELVIS AND [...] GABO STRONG Date: 2022-07-29 06:32 Normal [facility] INSULINon 07-04-2022 Insulin 6.2 uIU/mL Normal 2.6-24.9 [facility] Comment on above: Performed By: #### H STROPN, CMP #### [facility] [address] [place] [address] Dr. Judd Andrade CBC AUTO DIFFon 07-03-2022 BASO # 0.0 103/ul Normal 0.0-0.1 [facility] Comment on above: Performed By: #### C BC #### [facility] [address] [place] [address] Dr. Judd Andrade Basophils/100 WBC (Bld) 1.1 % Normal 0.2-2.0 [facility] Comment on above: Performed By: #### C BC #### [facility] [address] [place] [address] Dr. Judd Andrade EO # 0.1 103/ul Normal 0.0-0.7 [facility] Comment on above: Performed By: #### C BC #### [facility] [address] [place] [address] Dr. Judd Andrade Eosinophils/100 WBC (Bld) 3.6 % Normal 0.9-7.0 [facility] Comment on above: Performed By: #### C BC #### [facility] [address] [place] [address] Dr. Judd Andrade Erythrocyte distribution width (RBC) [Ratio] 13.6 % Normal 11.0-15.0 [facility] Comment on above: Performed By: #### C BC #### [facility] [address] [place] [address] Dr. Judd Andrade Hematocrit (Bld) [Volume fraction] 41.8 % Normal 36.0-48.0 [facility] Comment on above: Performed By: #### C BC #### [facility] [address] [place] [address] Dr. Judd Andrade Hemoglobin (Bld) [Mass/Vol] 13.5 g/dL Normal 12.0-16.0 [facility] Comment on above: Performed By: #### C BC #### [facility] [address] [place] [address] Dr. uJdd Andrade IG # 0.01 10e3/ul Normal 0.00-0.03 [facility] Comment on above: Performed By: #### C BC #### [facility] [address] [place] [address] Dr. Judd Andrade IG % 0.3 % Normal 0.0-0.5 [facility] Comment on above: Performed By: #### C BC #### [facility] [address] [place] [address] Dr. Judd Andrade LYMPH # 1.4 103/ul Normal 1.2-3.8 [facility] Comment on above: Performed By: #### C BC #### [facility] [address] [place] [address] Dr. Judd Andrade Lymphocytes/100 WBC (Bld) 38.4 % Normal 20.5-60.0 [facility] Comment on above: Performed By: #### C BC #### [facility] [address] [place] [address] Dr. Judd Andrade MANUAL DIFF REQ NO Normal [facility] Comment on above: Performed By: #### C BC #### [facility] [address] [place] [address] Dr. Judd Andrade MCH (RBC) [Entitic mass] 28.2 pg Normal 26.7-34.0 [facility] Comment on above: Performed By: #### C BC #### [facility] [address] [place] [address] Dr. Judd Andrade MCHC (RBC) [Mass/Vol] 32.3 g/dL Normal 29.9-35.2 [facility] Comment on above: Performed By: #### C BC #### [facility] [address] [place] [address] Dr. Judd Andrade MCV (RBC) [Entitic vol] 87.4 fL Normal 81.0-99.0 [facility] Comment on above: Performed By: #### C BC #### [facility] [address] [place] [address] Dr. Judd Andrade MONO # 0.4 103/ul Normal 0.3-0.8 [facility] Comment on above: Performed By: #### C BC #### [facility] [address] [place] [address] Dr. Judd Andrade Monocytes/100 WBC (Bld) 10.4 % Normal 1.7-12.0 [facility] Comment on above: Performed By: #### C BC #### [facility] [address] [place] [address] Dr. Judd Andrade NEUT # 1.7 103/ul Normal 1.4-6.5 [facility] Comment on above: Performed By: #### C BC #### [facility] [address] [place] [address] Dr. Judd Andrade Neutrophils/100 WBC (Bld) 46.2 % Normal 43.0-75.0 [facility] Comment on above: Performed By: #### C BC #### [facility] [address] [place] [address] Dr. Judd Andrade Platelet mean volume (Bld) [Entitic vol] 9.6 fL Normal 9.5-13.5 [facility] Comment on above: Performed By: #### C BC #### [facility] [address] [place] [address] Dr. Judd Andrade PLT 246 103/ul Normal 150-450 [facility] Comment on above: Performed By: #### C BC #### [facility] [address] [place] [address] Dr. Judd Andrade RBC 4.78 106/ul Normal 4.20-5.40 [facility] Comment on above: Performed By: #### C BC #### [facility] [address] [place] [address] Dr. Judd Andrade WBC 3.7 103/ul Critically low 4.0-11.0 [facility] Comment on above: Performed By: #### C BC #### [facility] [address] [address] [address] Judd Andrade FREE THYROXINE INDEX T7on FTI 3.20 Normal 1.30-4.50 [facility] Comment on above: Performed By: #### T 7, LIPID, TSH, CMP #### [facility] [address] [place] [address] Dr. Judd Andrade T3U 36.0 % Normal 30.0-39.0 [facility] Comment on above: Performed By: #### T 7, LIPID, TSH, CMP #### [facility] [address] [place] [address] Dr. Judd Andrade T4 [Mass/Vol] 8.90 ug/dL Normal 4.80-13.90 [facility] Comment on above: Performed By: #### T 7, LIPID, TSH, CMP #### [facility] [address] [place] [address] Dr. Judd Andrade GLYCOHEMOGLOBIN A1Con 2022 ADA RECOMMENDATION SEE BELOW Normal [facility] Comment on above: Result Comment: ADA RECOMMENDED LIMIT 4.0 - 6.0 ADA THERAPEUTIC TARGET < 7.0 ACTION SUGGESTED > 7.0 Performed By: #### C BC #### [facility] [address] [place] [address] Dr. Judd Andrade Glucose [Mass/Vol] 120 mg/dL Normal [facility] Comment on above: Performed By: #### C BC #### [facility] [address] [place] [address] Dr. Judd Andrade HbA1c (Bld) [Mass fraction] 5.8 % Normal 4.5-6.2 [facility] Comment on above: Performed By: #### C BC #### [facility] [address] [place] [address] Dr. Judd Andrade IRONon 07-03-2022 Iron [Mass/Vol] 67.0 ug/dL Normal 50.0-170.0 [facility] Comment on above: Performed By: #### V ITAD, IRON #### [facility] [address] [address] [address] Judd Andrade LIPID PROFILEon 07-03-2022 CHOL-HDL RATIO NORM SEE BELOW Normal [facility] Comment on above: Result Comment: 3.3 - 4.4 LOW RISK 4.4 - 7.1 AVERAGE RISK 7.1 - 11.0 MODERATE RISK >11.0 HIGH RISK Performed By: #### T 7, LIPID, TSH, CMP #### [facility] [address] [address] [address] Judd Andrade Cholesterol [Mass/Vol] 216 mg/dL Critically high <=200 [facility] Comment on above: Performed By: #### T 7, LIPID, TSH, CMP #### [facility] [address] [address] [address] Judd Andrade Cholesterol in HDL [Mass/Vol] 87 mg/dL Critically high 40-60 [facility] Comment on above: Performed By: #### T 7, LIPID, TSH, CMP #### [facility] [address] [address] [address] Judd Andrade Cholesterol in LDL [Mass/Vol] 124.2 mg/dL Normal [facility] Comment on above: Performed By: #### T 7, LIPID, TSH, CMP #### [facility] [address] [address] [address] Judd Andrade Cholesterol.total/Ch olesterol in HDL [Mass ratio] 2.5 {ratio} Normal [facility] Comment on above: Performed By: #### T 7, LIPID, TSH, CMP #### [facility] [address] [address] [address] Judd Andrade HDL NORMAL > or = 60 mg/dl - LO W CARDIOVASCULAR RISK <40 mg/dl - HIGH CARDIOVASCULAR RISK Normal [facility] Comment on above: Performed By: #### T 7, LIPID, TSH, CMP #### [facility] [address] [address] [address] Judd Andrade LDL CALC NORMAL SEE BELOW Normal [facility] Comment on above: Result Comment: <100 mg/dl OPTIMAL 100 - 129 mg/dl NEAR OR ABOVE OPTIMAL 130 - 159 mg/dl BORDERLINE HIGH 160 - 189 mg/dl HIGH >190 mg/dl VERY HIGH Performed By: #### T 7, LIPID, TSH, CMP #### [facility] [address] [address] [address] Judd Andrade Triglyceride [Mass/Vol] 24 mg/dL Normal <=150 [facility] Comment on above: Performed By: #### T 7, LIPID, TSH, CMP #### [facility] [address] [address] [address] Judd Andrade VLDL CALC 4.8 mg/dL Normal [facility] Comment on above: Performed By: #### T 7, LIPID, TSH, CMP #### [facility] [address] [address] [address] Judd Andrade PROF 14(COMP METB)on 023 Albumin [Mass/Vol] 4.0 g/dL Normal 3.4-5.0 [facility] Comment on above: Performed By: #### T 7, LIPID, TSH, CMP #### [facility] [address] [place] [address] Dr. Judd Andrade Albumin/Globulin [Mass ratio] 1.1 {ratio} Normal [facility] Comment on above: Performed By: #### T 7, LIPID, TSH, CMP #### [facility] [address] [address] [address] Judd Andrade ALP [Catalytic activity/Vol] 78 U/L Normal 46-116 [facility] Comment on above: Performed By: #### T 7, LIPID, TSH, CMP #### [facility] [address] [place] [address] Dr. Judd Andrade ALT [Catalytic activity/Vol] 29 U/L Normal 14-59 [facility] Comment on above: Performed By: #### T 7, LIPID, TSH, CMP #### [facility] [address] [place] [address] Dr. Judd Andrade Anion gap [Moles/Vol] 5.6 mmol/L Normal [facility] Comment on above: Performed By: #### T 7, LIPID, TSH, CMP #### [facility] [address] [address] [address] Judd Andrade AST [Catalytic activity/Vol] 23 U/L Normal 15-37 [facility] Comment on above: Performed By: #### T 7, LIPID, TSH, CMP #### [facility] [address] [address] [address] Judd Andrade Bilirubin [Mass/Vol] 0.5 mg/dL Normal 0.2-1.0 [facility] Comment on above: Performed By: #### T 7, LIPID, TSH, CMP #### [facility] [address] [address] [address] Judd Andrade Calcium [Mass/Vol] 8.9 mg/dL Normal 8.5-10.1 [facility] Comment on above: Performed By: #### T 7, LIPID, TSH, CMP #### [facility] [address] [place] [address] Dr. Judd Andrade Chloride [Moles/Vol] 105 mmol/L Normal 98-107 [facility] Comment on above: Performed By: #### T 7, LIPID, TSH, CMP #### [facility] [address] [address] [address] Jdud Andrade CO2 [Moles/Vol] 32.0 mmol/L Normal 21.0-32.[address] [facility] Comment on above: Performed By: #### T 7, LIPID, TSH, CMP #### [facility] [address] [address] [address] Judd Andrade Creatinine [Mass/Vol] 0.52 mg/dL Critically low 0.55-1.02 [facility] Comment on above: Performed By: #### T 7, LIPID, TSH, CMP #### [facility] [address] [place] [address] Dr. Judd Andrade EGFR-AF CHADIAN >60 Normal >=[address] [facility] Comment on above: Performed By: #### T 7, LIPID, TSH, CMP #### [facility] [address] [address] [address] Judd Andrade EGFR-NON AF CHADIAN >60 Normal >=60 [facility] Comment on above: Performed By: #### T 7, LIPID, TSH, CMP #### [facility] [address] [address] [address] Judd Andrade Globulin (S) [Mass/Vol] 3.6 g/dL Normal [facility] Comment on above: Performed By: #### T 7, LIPID, TSH, CMP #### [facility] [address] [address] [address] Judd Andrade Glucose [Mass/Vol] 89 mg/dL Normal 74-106 [facility] Comment on above: Performed By: #### T 7, LIPID, TSH, CMP #### [facility] [address] [place] [address] Dr. Judd Andrade Potassium [Moles/Vol] 4.2 mmol/L Normal 3.5-5.1 [facility] Comment on above: Performed By: #### T 7, LIPID, TSH, CMP #### [facility] [address] [address] [address] Judd Andrade Protein [Mass/Vol] 7.6 g/dL Normal 6.4-8.2 [facility] Comment on above: Performed By: #### T 7, LIPID, TSH, CMP #### [facility] [address] [place] [address] Dr. Judd Andrade Sodium [Moles/Vol] 139 mmol/L Normal 136-145 [facility] Comment on above: Performed By: #### T 7, LIPID, TSH, CMP #### [facility] [address] [place] [address] Dr. Judd Andrade Urea nitrogen [Mass/Vol] 11.0 mg/dL Normal 7.0-18.0 [facility] Comment on above: Performed By: #### T 7, LIPID, TSH, CMP #### [facility] [address] [place] [address] Dr. Judd Andrade Urea nitrogen/Creatinine [Mass ratio] 21.2 mg/mg Normal [facility] Comment on above: Performed By: #### T 7, LIPID, TSH, CMP #### [facility] [address] [place] [address] Dr. Judd Andrade TSHon 07-03-2022 TSH 1.037 uIU/mL Normal 0.358-3.740 [facility] Comment on above: Performed By: #### T 7, LIPID, TSH, CMP #### [facility] [address] [place] [address] Dr. Judd Andrade VITAMIN D 25 OHon 07-03-2022 VIT D 25-OH 32.8 ng/mL Normal [facility] Comment on above: Performed By: #### V ITAD, IRON #### [facility] [address] [place] [address] Dr. Judd Andrade VIT D RANGES SEE BELOW Normal [facility] Comment on above: Result Comment: <20 ng/mL Vit D deficient 20 - <30 ng/mL Vit D insufficient 30 - 100 ng/mL Vit D sufficient >100 ng/mL Potential Toxicity Performed By: #### V ITAD, IRON #### [facility] [address] [place] [address] Dr. Judd Andrade BORDETELLA PERTUSSIS AB IGGo n 06-30-2022 B pertussis IgG Ab 3.88 index Invalid Interpretation Code 0.00-0.94 [facility] Comment on above: Result Comment: Clie nt Requested Flag Negative <0.95 Equivocal 0.95 - 1.04 Positive >1.04 Performed By: #### C BC #### [facility] [address] [place] [address] Dr. Judd Andrade BORDETELLA PERTUSSIS AB IGMo n 06-30-2022 B pertussis IgM Ab <1.0 Normal 0.0-0.9 [facility] Comment on above: Result Comment: Nega tive <1.0 Borderline 1.0 - 1.1 Positive >1.1 Performed By: #### H STROPN, CMP #### [facility] [address] [place] [address] Dr. Judd Andrade [id number] 2022 Luwha-5-Hzpnhdteqoi, Serum 158 mg/dL Normal 101-187 [facility] Comment on above: Performed By: #### C BC #### [facility] [address] [place] [address] Dr. Judd Andrade CBC AUTO DIFFon 06-03-2022 BASO # 0.0 103/ul Normal 0.0-0.1 [facility] Comment on above: Performed By: #### H STROPN, CMP #### [facility] [address] [place] [address] Dr. Judd Andrade Basophils/100 WBC (Bld) 0.6 % Normal 0.2-2.0 [facility] Comment on above: Performed By: #### H STROPN, CMP #### [facility] [address] [place] [address] Dr. Judd Andrade EO # 0.0 103/ul Normal 0.0-0.7 [facility] Comment on above: Performed By: #### H STROPN, CMP #### [facility] [address] [place] [address] Dr. Judd Andrade Eosinophils/100 WBC (Bld) 0.6 % Critically low 0.9-7.0 [facility] Comment on above: Performed By: #### H STROPN, CMP #### [facility] [address] [place] [address] Dr. Judd Andrade Erythrocyte distribution width (RBC) [Ratio] 13.5 % Normal 11.0-15.0 [facility] Comment on above: Performed By: #### H STROPN, CMP #### [facility] [address] [place] [address] Dr. Judd Andrade Hematocrit (Bld) [Volume fraction] 42.4 % Normal 36.0-48.0 [facility] Comment on above: Performed By: #### H STROPN, CMP #### [facility] [address] [place] [address] Dr. Judd Andrade Hemoglobin (Bld) [Mass/Vol] 13.4 g/dL Normal 12.0-16.0 [facility] Comment on above: Performed By: #### H STROPN, CMP #### [facility] [address] [place] [address] Dr. Judd Andrade IG # 0.01 10e3/ul Normal 0.00-0.03 [facility] Comment on above: Performed By: #### H DEB, CMP #### [facility] [address] [address] [address] Judd Andrade IG % 0.2 % Normal 0.0-0.5 [facility] Comment on above: Performed By: #### H DEB, CMP #### [facility] [address] [address] [address] Judd Andrade LYMPH # 1.1 103/ul Critically low 1.2-3.8 [facility] Comment on above: Performed By: #### H DEB, CMP #### [facility] [address] [place] [address] Dr. Judd Andrade Lymphocytes/100 WBC (Bld) 23.5 % Normal 20.5-60.0 [facility] Comment on above: Performed By: #### H DEB, CMP #### [facility] [address] [place] [address] Dr. Judd Andrade MANUAL DIFF REQ NO Normal [facility] Comment on above: Performed By: #### H DEB, CMP #### [facility] [address] [place] [address] Dr. Judd Andrade MCH (RBC) [Entitic mass] 28.9 pg Normal 26.7-34.0 [facility] Comment on above: Performed By: #### H DEB, CMP #### [facility] [address] [place] [address] Dr. Judd Andrade MCHC (RBC) [Mass/Vol] 31.6 g/dL Normal 29.9-35.2 [facility] Comment on above: Performed By: #### H DEB, CMP #### [facility] [address] [place] [address] Dr. Judd Andrade MCV (RBC) [Entitic vol] 91.6 fL Normal 81.0-99.0 [facility] Comment on above: Performed By: #### H TERAPN, CMP #### [facility] [address] [address] [address] Judd Andrade MONO # 0.8 103/ul Normal 0.3-0.8 [facility] Comment on above: Performed By: #### H STROPN, CMP #### [facility] [address] [place] [address] Dr. Judd Andrade Monocytes/100 WBC (Bld) 16.5 % Critically high 1.7-12.0 [facility] Comment on above: Performed By: #### H STROPN, CMP #### [facility] [address] [place] [address] Dr. Judd Andrade NEUT # 2.7 103/ul Normal 1.4-6.5 [facility] Comment on above: Performed By: #### H STROPN, CMP #### [facility] [address] [place] [address] Dr. Judd Andrade Neutrophils/100 WBC (Bld) 58.6 % Normal 43.0-75.0 [facility] Comment on above: Performed By: #### H STROPN, CMP #### [facility] [address] [place] [address] Dr. Judd Andrade Platelet mean volume (Bld) [Entitic vol] 9.8 fL Normal 9.5-13.5 [facility] Comment on above: Performed By: #### H STROPN, CMP #### [facility] [address] [place] [address] Dr. Judd Andrade PLT 252 103/ul Normal 150-450 [facility] Comment on above: Performed By: #### H STROPN, CMP #### [facility] [address] [place] [address] Dr. Judd Andrade RBC 4.63 106/ul Normal 4.20-5.40 [facility] Comment on above: Performed By: #### H STROPN, CMP #### [facility] [address] [place] [address] Dr. Judd Andrade WBC 4.7 103/ul Normal 4.0-11.0 [facility] Comment on above: Performed By: #### H STROPN, CMP #### [facility] [address] [address] [address] Judd Andrade PROF 14(COMP METB)on 023 Albumin [Mass/Vol] 4.0 g/dL Normal 3.4-5.0 [facility] Comment on above: Performed By: #### H DEB, CMP #### [facility] [address] [address] [address] Judd Andrade Albumin/Globulin [Mass ratio] 1.0 {ratio} Normal [facility] [place] Comment on above: Performed By: #### H DEB, CMP #### [facility] [address] [address] [address] Judd Andrade ALP [Catalytic activity/Vol] 77 U/L Normal 46-116 [facility] [place] Comment on above: Performed By: #### H DEB, CMP #### [facility] [address] [place] [address] Dr. Judd Andrade ALT [Catalytic activity/Vol] 33 U/L Normal 14-59 [facility] [place] Comment on above: Performed By: #### H DEB, CMP #### [facility] [address] [place] [address] Dr. Judd Andrade Anion gap [Moles/Vol] 8.0 mmol/L Normal [facility] [place] Comment on above: Performed By: #### H DEB, CMP #### [facility] [address] [place] [address] Dr. Judd Andrade AST [Catalytic activity/Vol] 28 U/L Normal 15-37 [facility] [place] Comment on above: Performed By: #### H TERAPN, CMP #### [facility] [address] [address] [address] Judd Andrade Bilirubin [Mass/Vol] 0.6 mg/dL Normal 0.2-1.0 [facility] [place] Comment on above: Performed By: #### H STROPN, CMP #### [facility] [address] [address] [address] Judd Andrade Calcium [Mass/Vol] 9.3 mg/dL Normal 8.5-10.1 [facility] Comment on above: Performed By: #### H STROPN, CMP #### [facility] [address] [address] [address] Judd Andrade Chloride [Moles/Vol] 103 mmol/L Normal 98-107 [facility] [place] Comment on above: Performed By: #### H STROPN, CMP #### [facility] [address] [address] [address] Judd Andrade CO2 [Moles/Vol] 33.6 mmol/L Critically high 21.0-32.0 [facility] [place] Comment on above: Performed By: #### H STROPN, CMP #### [facility] [address] [address] [address] Judd Andrade Creatinine [Mass/Vol] 0.59 mg/dL Normal 0.55-1.02 [facility] [place] Comment on above: Performed By: #### H STROPN, CMP #### [facility] [address] [address] [address] Judd Andrade EGFR-AF CHADIAN >60 Normal >=60 [facility] Comment on above: Performed By: #### H STROPN, CMP #### [facility] [address] [address] [address] Judd Andrade EGFR-NON AF CHADIAN >60 Normal >=60 [facility] [place] Comment on above: Performed By: #### H STROPN, CMP #### [facility] [address] [address] [address] Judd Andrade Globulin (S) [Mass/Vol] 4.0 g/dL Normal [facility] [place] Comment on above: Performed By: #### H STROPN, CMP #### [facility] [address] [address] [address] Judd Andrade Glucose [Mass/Vol] 130 mg/dL Critically high 74-106 [facility] Comment on above: Performed By: #### H STROPN, CMP #### [facility] [address] [address] [address] Judd Andrade Potassium [Moles/Vol] 3.6 mmol/L Normal 3.5-5.1 [facility] [place] Comment on above: Performed By: #### H STROPN, CMP #### [facility] [address] [address] [address] Judd Andrade Protein [Mass/Vol] 8.0 g/dL Normal 6.4-8.2 [facility] Comment on above: Performed By: #### H STROPN, CMP #### [facility] [address] [address] [address] Judd Andrade Sodium [Moles/Vol] 141 mmol/L Normal 136-145 [facility] Comment on above: Performed By: #### H STROPN, CMP #### [facility] [address] [address] [address] Judd Andrade Urea nitrogen [Mass/Vol] 8.0 mg/dL Normal 7.0-18.0 [facility] [place] Comment on above: Performed By: #### H STROPN, CMP #### [facility] [address] [address] [address] Judd Andrade Urea nitrogen/Creatinine [Mass ratio] 13.6 mg/mg Normal [facility] [place] Comment on above: Performed By: #### H STROPN, CMP #### [facility] [address] [address] [address] Judd Andrade TROPONIN, HIGH SENSITIVITYon 06-03-2022 HSTROP <4.0 Normal 4.0-51.3 [facility] [place] Comment on above: Result Comment: CUT- OFF POINTS HAVE BEEN ESTABLISHED BASED ON THE FOURTH UNIVERSAL DEFINITIONS OF MYOCARDIAL INFARCTION. THE UPPER REFERENCE LIMIT (URL) OF TROPONIN, DEFINED THE 99TH PERCENTILE OF cTnI DISTRIBUTION IN A REFERENCE POPULATION, HAS BEEN CONFIRMED THE DECISION THRESHOLD FOR [place] DIAGNOSIS. Performed By: #### H STROPN, CMP #### [facility] [address] [address] [address] Judd Andrade XR CHEST 2 Von [...] LINDA RHODES Date: 2022-06-03 12:15 Normal [facility] Covid-19 PCR (CVDTB)on SARS-CoV-2 (COVID-19) RNA JOLLY+probe Ql (Unsp spec) Not detected Normal NOT DETECTED [facility] Comment on above: Result Comment: This test is not yet approved or cleared by the [place] FDA. When there are no FDA-approved or cleared tests available, and other criteria are met, FDA can make tests available under an emergency access mechanism called an Emergency Use Authorization (EUA). The EUA for this test is supported by the [employer] of Health and Human Service's (HHS's) declaration [...] Performed By: #### H DEB, CMP #### [facility] [address] [place] [address] Dr. Judd Andrade INFLUENZA A AND B AGon 06-02 [facility] SEE BELOW Normal [facility] [place] Comment on above: Result Comment: Nega tive for Flu A protein angiten. Infection due to Flu A cannot be ruled out. Flu A angiten in the sample may be below the detection limit of the test. Performed By: #### H DEB, CMP #### [facility] [address] [place] [address] Dr. Judd Andrade [facility] SEE BELOW Normal [facility] [place] Comment on above: Result Comment: Nega tive for Flu B protein antigen. Infection due to Flu B cannot be ruled out. Flu B antigen in the sample may be below the detection limit of the test. Performed By: #### H STROPN, CMP #### [facility] [address] [address] [address] Judd Andrade INFLUENZA A AG Negative Normal NEGATIVE SEE COMMENT [facility] Comment on above: Performed By: #### H STROPN, CMP #### [facility] [address] [address] [address] Judd Andrade INFLUENZA B AG Negative Normal NEGATIVE SEE COMMENT [facility] Comment on above: Performed By: #### H STROPN, CMP #### [facility] [address] [place], [place] [address] HEAD_NECKon 02-11-2022 [...] GABO STRONG Date: 2022-02-11 16:24 Normal [facility] MG MAMM SCREEN 3D SUSANA CADon 02-10-2022 MG MAMM SCREEN 3D SUSANA CAD Patient: YULIA CASTANO Exam Date: 02/10/2022 : 1965 Gender:F Ordering : DR JOHN PORTER . Admission #: [id number] Family : Order #: [id number] CLICK HERE TO VIEW EXAM RADIOLOGY REPORT [...] breast cancer at age 40. LOCATION: [facility] BREAST COMPOSITION: Almost entirely fatty. FINDINGS: DIAGNOSTIC [...] M.D. on 02/11/2022 at 14:20 Normal [facility] XR CHEST 1 Von 01-15-2022 XR CHEST [...] KAREN VALDEZ Date: 2022-01-15 18:39 Normal [facility] CBC AUTO DIFFon 12-30-2021 BASO # 0.0 103/ul Normal 0.0-0.1 [facility] [place] Comment on above: Performed By: #### C BC #### [facility] [address] [address] [address] Judd Andrade Basophils/100 WBC (Bld) 0.6 % Normal 0.2-2.0 [facility] [place] Comment on above: Performed By: #### C BC #### [facility] [address] [address] [address] Judd Andrade EO # 0.1 103/ul Normal 0.0-0.7 [facility] [place] Comment on above: Performed By: #### C BC #### [facility] [address] [address] [address] Judd Andrade Eosinophils/100 WBC (Bld) 2.1 % Normal 0.9-7.0 [facility] [place] Comment on above: Performed By: #### C BC #### [facility] [address] [place] [address] Dr. Judd Andrade Erythrocyte distribution width (RBC) [Ratio] 13.0 % Normal 11.0-15.0 [facility] [place] Comment on above: Performed By: #### C BC #### [facility] [address] [place] [address] Dr. Judd Andrade Hematocrit (Bld) [Volume fraction] 41.9 % Normal 36.0-48.0 [facility] [place] Comment on above: Performed By: #### C BC #### [facility] [address] [place] [address] Dr. Judd Andrade Hemoglobin (Bld) [Mass/Vol] 13.7 g/dL Normal 12.0-16.0 [facility] Comment on above: Performed By: #### C BC #### [facility] [address] [place] [address] Dr. Judd Andrade IG # 0.03 10e3/ul Normal 0.00-0.03 [facility] [place] Comment on above: Performed By: #### C BC #### [facility] [address] [place] [address] Dr. Judd Andrade IG % 0.6 % Critically high 0.0-0.5 [facility] Comment on above: Performed By: #### C BC #### [facility] [address] [place] [address] Dr. Judd Andrade LYMPH # 1.9 103/ul Normal 1.2-3.8 [facility] Comment on above: Performed By: #### C BC #### [facility] [address] [place] [address] Dr. Judd Andrade Lymphocytes/100 WBC (Bld) 34.5 % Normal 20.5-60.0 [facility] Comment on above: Performed By: #### C BC #### [facility] [address] [place] [address] Dr. Judd Andrade MANUAL DIFF REQ NO Normal [facility] Comment on above: Performed By: #### C BC #### [facility] [address] [place] [address] Dr. Judd Andrade MCH (RBC) [Entitic mass] 28.5 pg Normal 26.7-34.0 [facility] [place] Comment on above: Performed By: #### C BC #### [facility] [address] [place] [address] Dr. Judd Andrade MCHC (RBC) [Mass/Vol] 32.7 g/dL Normal 29.9-35.2 [facility] [place] Comment on above: Performed By: #### C BC #### [facility] [address] [place] [address] Dr. Judd Andrade MCV (RBC) [Entitic vol] 87.1 fL Normal 81.0-99.0 [facility] [place] Comment on above: Performed By: #### C BC #### [facility] [address] [place] [address] Dr. Judd Andrade MONO # 0.6 103/ul Normal 0.3-0.8 [facility] [place] Comment on above: Performed By: #### C BC #### [facility] [address] [place] [address] Dr. Judd Andrade Monocytes/100 WBC (Bld) 10.4 % Normal 1.7-12.0 [facility] [place] Comment on above: Performed By: #### C BC #### [facility] [address] [place] [address] Dr. Judd Andrade NEUT # 2.8 103/ul Normal 1.4-6.5 [facility] [place] Comment on above: Performed By: #### C BC #### [facility] [address] [place] [address] Dr. Judd Andrade Neutrophils/100 WBC (Bld) 51.8 % Normal 43.0-75.0 [facility] Comment on above: Performed By: #### C BC #### [facility] [address] [place] [address] Dr. Judd Andrade Platelet mean volume (Bld) [Entitic vol] 10.5 fL Normal 9.5-13.5 [facility] [place] Comment on above: Performed By: #### C BC #### [facility] [address] [place] [address] Dr. Judd Andrade PLT 270 103/ul Normal 150-450 [facility] [place] Comment on above: Performed By: #### C BC #### [facility] [address] [place] [address] Dr. Judd Andrade RBC 4.81 106/ul Normal 4.20-5.40 [facility] [place] Comment on above: Performed By: #### C BC #### [facility] [address] [place] [address] Dr. Judd Andrade WBC 5.4 103/ul Normal 4.0-11.0 [facility] [place] Comment on above: Performed By: #### C BC #### [facility] [address] [place] [address] Dr. Judd Andrade CRPon 12-30-2021 CRP [Mass/Vol] mg/L Normal <=1.0 [facility] Comment on above: Performed By: #### C BC #### [facility] [address] [place] [address] Dr. Judd Andrade PROF 14(COMP METB)on 022 Albumin [Mass/Vol] 3.9 g/dL Normal 3.4-5.0 [facility] Comment on above: Performed By: #### C BC #### [facility] [address] [place] [address] Dr. Judd Andrade Albumin/Globulin [Mass ratio] 1.0 {ratio} Normal [facility] [place] Comment on above: Performed By: #### C BC #### [facility] [address] [place] [address] Dr. Judd Andrade ALP [Catalytic activity/Vol] 64 U/L Normal 46-116 [facility] Comment on above: Performed By: #### C BC #### [facility] [address] [place] [address] Dr. Judd Andrade ALT [Catalytic activity/Vol] 50 U/L Normal 14-59 [facility] [place] Comment on above: Performed By: #### C BC #### [facility] [address] [place] [address] Dr. Judd Andrade Anion gap [Moles/Vol] 11.1 mmol/L Normal [facility] [place] Comment on above: Performed By: #### C BC #### [facility] [address] [address] [address] Judd Andrade AST [Catalytic activity/Vol] 28 U/L Normal 15-37 [facility] [place] Comment on above: Performed By: #### C BC #### [facility] [address] [address] [address] Judd Andrade Bilirubin [Mass/Vol] 0.5 mg/dL Normal 0.2-1.0 [facility] [place] Comment on above: Performed By: #### C BC #### [facility] [address] [address] [address] Judd Andrade Calcium [Mass/Vol] 8.9 mg/dL Normal 8.5-10.1 [facility] Comment on above: Performed By: #### C BC #### [facility] [address] [address] [address] Judd Andrade Chloride [Moles/Vol] 101 mmol/L Normal 98-107 [facility] [place] Comment on above: Performed By: #### C BC #### [facility] [address] [address] [address] Judd Andrade CO2 [Moles/Vol] 29.4 mmol/L Normal 21.0-32.0 [facility] Comment on above: Performed By: #### C BC #### [facility] [address] [address] [address] Judd Andrade Creatinine [Mass/Vol] 0.73 mg/dL Normal 0.55-1.02 [facility] [place] Comment on above: Performed By: #### C BC #### [facility] [address] [address] [address] Judd Andrade EGFR-AF CHADIAN >60 Normal >=60 [facility] Comment on above: Performed By: #### C BC #### [facility] [address] [address] [address] Judd Andrade EGFR-NON AF CHADIAN >60 Normal >=60 [facility] [place] Comment on above: Performed By: #### C BC #### [facility] [address] [address] [address] Judd Andrade Globulin (S) [Mass/Vol] 3.8 g/dL Normal [facility] [place] Comment on above: Performed By: #### C BC #### [facility] [address] [address] [address] Judd Andrade Glucose [Mass/Vol] 139 mg/dL Critically high 74-106 [facility] Comment on above: Performed By: #### C BC #### [facility] [address] [address] [address] Judd Andrade Potassium [Moles/Vol] 3.5 mmol/L Normal 3.5-5.1 [facility] [place] Comment on above: Performed By: #### C BC #### [facility] [address] [address] [address] Judd Andrade Protein [Mass/Vol] 7.7 g/dL Normal 6.4-8.2 [facility] Comment on above: Performed By: #### C BC #### [facility] [address] [address] [address] Judd Andrade Sodium [Moles/Vol] 138 mmol/L Normal 136-145 [facility] Comment on above: Performed By: #### C BC #### [facility] [address] [address] [address] Judd Andrade Urea nitrogen [Mass/Vol] 12.0 mg/dL Normal 7.0-18.0 [facility] Comment on above: Performed By: #### C BC #### [facility] [address] [address] [address] Judd Andrade Urea nitrogen/Creatinine [Mass ratio] 16.4 mg/mg Normal [facility] [place] Comment on above: Performed By: #### C BC #### [facility] [address] [address] [address] Judd Andrade XR CHEST 2 Von [...] ARTEMIO DIXON Date: 2021-12-29 20:49 Normal [facility] TRYPTASEon 12-27-2021 Tryptase 4.5 ug/L Normal 2.2-13.2 [facility] Comment on above: Performed By: #### C BC #### [facility] [address] [place] [address] Dr. Judd Andrade CBC AUTO DIFFon 12-23-2021 BASO # 0.0 103/ul Normal 0.0-0.1 [facility] Comment on above: Performed By: #### H TERAPN, CMP #### [facility] [address] [place] [address] Dr. Judd Andrade Basophils/100 WBC (Bld) 0.7 % Normal 0.2-2.0 [facility] Comment on above: Performed By: #### H TERAPN, CMP #### [facility] [address] [place] [address] Dr. Judd Andrade EO # 0.0 103/ul Normal 0.0-0.7 [facility] Comment on above: Performed By: #### H STROPN, CMP #### [facility] [address] [place] [address] Dr. Judd Andrade Eosinophils/100 WBC (Bld) 0.0 % Critically low 0.9-7.0 [facility] Comment on above: Performed By: #### H STROPN, CMP #### [facility] [address] [place] [address] Dr. Judd Andrade Erythrocyte distribution width (RBC) [Ratio] 13.2 % Normal 11.0-15.0 [facility] Comment on above: Performed By: #### H TERAPN, CMP #### [facility] [address] [place] [address] Dr. Judd Andrade Hematocrit (Bld) [Volume fraction] 42.1 % Normal 36.0-48.0 [facility] Comment on above: Performed By: #### H STROPN, CMP #### [facility] [address] [address] [address] Judd Andrade Hemoglobin (Bld) [Mass/Vol] 13.7 g/dL Normal 12.0-16.0 [facility] [place] Comment on above: Performed By: #### H STROPN, CMP #### [facility] [address] [address] [address] Judd Andrade IG # 0.01 10e3/ul Normal 0.00-0.03 [facility] [place] Comment on above: Performed By: #### H STROPN, CMP #### [facility] [address] [address] [address] Judd Andrade IG % 0.3 % Normal 0.0-0.5 [facility] [place] Comment on above: Performed By: #### H STROPN, CMP #### [facility] [address] [place] [address] Dr. Judd Andrade LYMPH # 0.7 103/ul Critically low 1.2-3.8 [facility] Comment on above: Performed By: #### H STROPN, CMP #### [facility] [address] [address] [address] Judd Andrade Lymphocytes/100 WBC (Bld) 24.1 % Normal 20.5-60.0 [facility] [place] Comment on above: Performed By: #### H STROPN, CMP #### [facility] [address] [address] [address] Judd Andrade MANUAL DIFF REQ NO Normal [facility] Comment on above: Performed By: #### H STROPN, CMP #### [facility] [address] [address] [address] Judd Andrade MCH (RBC) [Entitic mass] 28.4 pg Normal 26.7-34.0 [facility] [place] Comment on above: Performed By: #### H STROPN, CMP #### [facility] [address] [place] [address] Dr. Judd Andrade MCHC (RBC) [Mass/Vol] 32.5 g/dL Normal 29.9-35.2 [facility] [place] Comment on above: Performed By: #### H STROPN, CMP #### [facility] [address] [place] [address] Dr. Judd Andrade MCV (RBC) [Entitic vol] 87.2 fL Normal 81.0-99.0 [facility] [place] Comment on above: Performed By: #### H STROPN, CMP #### [facility] [address] [place] [address] Dr. Judd Andrade MONO # 0.5 103/ul Normal 0.3-0.8 [facility] [place] Comment on above: Performed By: #### H STROPN, CMP #### [facility] [address] [place] [address] Dr. Judd Andrade Monocytes/100 WBC (Bld) 16.9 % Critically high 1.7-12.0 [facility] [place] Comment on above: Performed By: #### H STROPN, CMP #### [facility] [address] [place] [address] Dr. Judd Andrade NEUT # 1.8 103/ul Normal 1.4-6.5 [facility] [place] Comment on above: Performed By: #### H STROPN, CMP #### [facility] [address] [place] [address] Dr. Judd Andrade Neutrophils/100 WBC (Bld) 58.0 % Normal 43.0-75.0 [facility] [place] Comment on above: Performed By: #### H STROPN, CMP #### [facility] [address] [place] [address] Dr. Judd Andrade Platelet mean volume (Bld) [Entitic vol] 9.9 fL Normal 9.5-13.5 [facility] Comment on above: Performed By: #### H STROPN, CMP #### [facility] [address] [place] [address] Dr. Judd Andrade PLT 210 103/ul Normal 150-450 [facility] Comment on above: Performed By: #### H STROPN, CMP #### [facility] [address] [place] [address] Dr. Judd Andrade RBC 4.83 106/ul Normal 4.20-5.40 [facility] [place] Comment on above: Performed By: #### H TERAPN, CMP #### [facility] [address] [place] [address] Dr. Judd Andrade WBC 3.1 103/ul Critically low 4.0-11.0 [facility] Comment on above: Performed By: #### H TERAPN, CMP #### [facility] [address] [place] [address] Dr. Judd Andrade IRONon 12-23-2021 Iron [Mass/Vol] 35.0 ug/dL Critically low 50.0-170.0 [facility] Comment on above: Performed By: #### C BC #### [facility] [address] [place] [address] Dr. Judd Andrade PROF 14(COMP METB)on Albumin [Mass/Vol] 3.9 g/dL Normal 3.4-5.0 [facility] Comment on above: Performed By: #### C BC #### [facility] [address] [place] [address] Dr. Judd Andrade Albumin/Globulin [Mass ratio] 1.0 {ratio} Normal [facility] Comment on above: Performed By: #### C BC #### [facility] [address] [place] [address] Dr. Judd Andrade ALP [Catalytic activity/Vol] 70 U/L Normal 46-116 [facility] Comment on above: Performed By: #### C BC #### [facility] [address] [place] [address] Dr. Judd Andrade ALT [Catalytic activity/Vol] 43 U/L Normal 14-59 [facility] Comment on above: Performed By: #### C BC #### [facility] [address] [place] [address] Dr. Judd Andrade Anion gap [Moles/Vol] 11.5 mmol/L Normal [facility] Comment on above: Performed By: #### C BC #### [facility] [address] [place] [address] Dr. Judd Andrade AST [Catalytic activity/Vol] 33 U/L Normal 15-37 [facility] Comment on above: Performed By: #### C BC #### [facility] [address] [place] [address] Dr. Judd Andrade Bilirubin [Mass/Vol] 0.3 mg/dL Normal 0.2-1.0 [facility] Comment on above: Performed By: #### C BC #### [facility] [address] [address] [address] Judd Andrade Calcium [Mass/Vol] 8.9 mg/dL Normal 8.5-10.1 [facility] Comment on above: Performed By: #### C BC #### [facility] [address] [place] [address] Dr. Judd Andrade Chloride [Moles/Vol] 101 mmol/L Normal 98-107 [facility] Comment on above: Performed By: #### C BC #### [facility] [address] [place] [address] Dr. Judd Andrade CO2 [Moles/Vol] 31.1 mmol/L Normal 21.0-32.0 [facility] Comment on above: Performed By: #### C BC #### [facility] [address] [place] [address] Dr. Judd Andrade Creatinine [Mass/Vol] 0.69 mg/dL Normal 0.55-1.02 [facility] Comment on above: Performed By: #### C BC #### [facility] [address] [place] [address] Dr. Judd Andrade EGFR-AF CHADIAN >60 Normal >=[address] [facility] Comment on above: Performed By: #### C BC #### [facility] [address] [place] [address] Dr. Judd Andrade EGFR-NON AF CHADIAN >60 Normal >=60 [facility] Comment on above: Performed By: #### C BC #### [facility] [address] [place] [address] Dr. Judd Andrade Globulin (S) [Mass/Vol] 3.8 g/dL Normal [facility] Comment on above: Performed By: #### C BC #### [facility] [address] [address] [address] Judd Andrade Glucose [Mass/Vol] 103 mg/dL Normal 74-106 [facility] Comment on above: Performed By: #### C BC #### [facility] [address] [address] [address] Judd Andrade Potassium [Moles/Vol] 3.6 mmol/L Normal 3.5-5.1 [facility] Comment on above: Performed By: #### C BC #### [facility] [address] [address] [address] Judd Andrade Protein [Mass/Vol] 7.7 g/dL Normal 6.4-8.2 [facility] Comment on above: Performed By: #### C BC #### [facility] [address] [address] [address] Judd Andrade Sodium [Moles/Vol] 140 mmol/L Normal 136-145 [facility] Comment on above: Performed By: #### C BC #### [facility] [address] [address] [address] Judd Andrade Urea nitrogen [Mass/Vol] 11.0 mg/dL Normal 7.0-18.0 [facility] Comment on above: Performed By: #### C BC #### [facility] [address] [address] [address] Judd Andrade Urea nitrogen/Creatinine [Mass ratio] 15.9 mg/mg Normal [facility] Comment on above: Performed By: #### C BC #### [facility] [address] [address] [address] Judd Andrade PROTIMEon 12-23-2021 INR Coag (PPP) [Relative time] 1.04 {INR} Normal [facility] Comment on above: Performed By: #### H STROPN, CMP #### [facility] [address] [address] [address] Judd Andrade INR GUIDELINES SEE BELOW Normal [facility] Comment on above: Result Comment: PRIETO RED INR: 2.0 - 3.0 CONDITIONS NOT LISTED BELOW 2.5 - 3.5 FOR PROSTHETIC HEART VALVE REPLACEMENT 2.5 - 3.5 RECURRENT THROMBOSIS Performed By: #### H DEB, CMP #### [facility] [address] [place] [address] Dr. Judd Andrade PT Coag (PPP) [Time] 11.2 s Normal 9.0-11.6 [facility] Comment on above: Performed By: #### H DEB, CMP #### [facility] [address] [place] [address] Dr. Judd Andrade PTTon 12-23-2021 aPTT Coag (Bld) [Time] 31.5 s Normal 22.3-36.2 [facility] Comment on above: Performed By: #### H DEB, CMP #### [facility] [address] [place] [address] Dr. Judd Andrade ER URINE PROFILEon Bilirubin Ql (U) Negative Normal NEGATIVE [facility] Comment on above: Performed By: #### H DEB, CMP #### [facility] [address] [place] [address] Dr. Judd Andrade Clarity (U) CLEAR Normal CLEAR [facility] Comment on above: Performed By: #### H DEB, CMP #### [facility] [address] [place] [address] Dr. Judd Andrade Color (U) LT. YELLOW Normal YELLOW [facility] Comment on above: Performed By: #### H DEB, CMP #### [facility] [address] [place] [address] Dr. Judd Andrade ERUSUZY A micrscopic examination will be performed if indicated. Normal [facility] Comment on above: Performed By: #### H DEB, CMP #### [facility] [address] [place] [address] Dr. Judd Andrade Glucose Ql (U) Negative Normal NEGATIVE [facility] Comment on above: Performed By: #### H DEB, CMP #### [facility] [address] [place] [address] Dr. Judd Andrade Hemoglobin Ql (U) TRACE-INTACT Abnormal NEGATIVE [facility] Comment on above: Performed By: #### H STROPN, CMP #### [facility] [address] [address] [address] Judd Andrade Ketones Ql (U) Negative Normal NEGATIVE [facility] Comment on above: Performed By: #### H STROPN, CMP #### [facility] [address] [address] [address] Judd Andrade LEUKOCYTES Negative Normal NEGATIVE [facility] Comment on above: Performed By: #### H STROPN, CMP #### [facility] [address] [address] [address] Judd Andrade Nitrite Ql (U) Negative Normal NEGATIVE [facility] Comment on above: Performed By: #### H STROPN, CMP #### [facility] [address] [place] [address] Dr. Judd Andrade pH (U) 6.0 [pH] Normal 5-9 [facility] Comment on above: Performed By: #### H STROPN, CMP #### [facility] [address] [place] [address] Dr. Judd Andrade SPEC GRAVITY 1.005 Normal 1.005-<=1.025 [facility] Comment on above: Performed By: #### H STROPN, CMP #### [facility] [address] [place] [address] Dr. Judd Andrade UA PROTEIN Negative Normal NEGATIVE/ TRACE [facility] Comment on above: Performed By: #### H STROPN, CMP #### [facility] [address] [place] [address] Dr. Judd Andrade UR MICRO IND INDICATED Normal [facility] Comment on above: Performed By: #### H STROPN, CMP #### [facility] [address] [place] [address] Dr. Judd Andrade Urobilinogen Qn (U) 0.2 {Carol'U}/dL Normal 0.2 - 1. 0 [facility] Comment on above: Performed By: #### H STROPN, CMP #### [facility] [address] [place] [address] Dr. Judd Andrade URINE MICROSCOPIC ONLYon BACTERIA NONE SEEN Normal NONE SEEN [facility] Comment on above: Performed By: #### H STROPN, CMP #### [facility] [address] [place] [address] Dr. Judd Andrade Bacteria identified Cx Nom (U) NOT INDICATED Normal [facility] Comment on above: Performed By: #### H STROPN, CMP #### [facility] [address] [place] [address] Dr. Judd Andrade CAST NONE SEEN Normal NONE SEEN [facility] Comment on above: Performed By: #### H STROPN, CMP #### [facility] [address] [place] [address] Dr. Judd Andrade Crystals LM Nom (Urine sed) NONE SEEN Normal NONE SEEN [facility] Comment on above: Performed By: #### H STROPN, CMP #### [facility] [address] [place] [address] Dr. Judd Andrade Epithelial cells LM Ql (Urine sed) FEW Abnormal NONE SEEN /RARE [facility] Comment on above: Performed By: #### H STROPN, CMP #### [facility] [address] [place] [address] Dr. Judd Andrade MUCOUS NONE SEEN Normal NONE SEEN [facility] Comment on above: Performed By: #### H STROPN, CMP #### [facility] [address] [place] [address] Dr. Judd Andrade RBC 0-2 Normal 0-2 [facility] Comment on above: Performed By: #### H STROPN, CMP #### [facility] [address] [place] [address] Dr. Judd Andrade WBC NONE SEEN Normal NONE SEEN [facility] Comment on above: Performed By: #### H STROPN, CMP #### [facility] [address] [place] [address] Dr. Judd Andrade Vital Signs Date Time Vital Sign Value Performing Clinician Faci lity 12-30-2023 13:48-0400 Blood Pressure Location Bessie Galea [facility] 12-30-2023 13:48-0400 Diastolic blood pressure 82 mm[Hg] Bessie Galea [facility] 12-30-2023 13:48-0400 Heart rate 80 /min Bessie Galea [facility] 12-30-2023 13:48-0400 Respiratory rate 16 /min Bessie Galea [facility] 12-30-2023 13:48-0400 Systolic blood pressure 117 mm[Hg] Bessie Galea [facility] Encounters Encounter Date Encounter Type Care Provider Facility Start: 01-03-2024 End: 01-03-2024 ambulatory KATIE JUANJOSE Not Available Start: 12-30-2023 End: 12-30-2023 ambulatory Bessie Gong Facility:[facility] Start: 12-30-2023 End: 12-30-2023 Patient encounter procedure Bessie Ly Alexisea [facility] Start: 12-21-2023 End: 12-21-2023 ambulatory NATALIE TINSLEY Not Available Start: 10-04-2023 End: 10-04-2023 ambulatory KATIE JUANJOSE Not Available Start: 06-30-2023 End: 06-30-2023 ambulatory KATIE JUANJOSE Not Available Start: 06-24-2023 End: 06-24-2023 ambulatory VALE HI Not Available Start: 03-23-2023 End: 03-23-2023 ambulatory KATIE JUANJOSE Not Available Start: 09-24-[address] [facility] Start: 09-22-2022 End: 09-23-[address] KATIE RUST . Facility:[facility] Start: 08-29-2022 End: 08-30-[address] JOHN PORTER . Facility:[facility] Start: 08-11-2022 End: 08-12-[address] JOHN PORTER . Facility:[facility] Start: 07-28-2022 End: 07-29-[address] KATIE RSUT . Facility:[facility] Start: 07-03-2022 End: 07-04-[address] JOHN PORTER . Facility:[facility] Start: 06-29-2022 Encounter for antibo dy response examination DR JOHN PORTER . [facility] Start: 06-26-2022 End: 06-27-[address] JOHN [...] Cystourethroscopy wi th dilation of urethral stricture Bessie Galea Appendectomy Bessie Galea History of cholecystectomy A lysha Galea Tonsillectomy Bessie Galea Immunizations Immunization Date Immunization Notes Care Provider Mukesh merritt 10-05-2022 tetanus toxoid, redu heide diphtheria toxoid, and acellular pertussis vaccine, adsorbed Bessie Galea [facility] Payers Date Payer Category Payer Unknown [id number] 1965 Unknown [id number] 2.16.84 0.1.613919.3.579.2.593 1965 Unknown [id number] 2.16.84 0.1.996230.3.579.2.593 1965 Unknown [id number] 2.16.84 0.1.563178.3.579.2.593 1965 Unknown [id number] 2.16.84 0.1.356917.3.579.2.593 1965 Unknown [id number] 2.16.84 0.1.358637.3.579.2.593 1965 Unknown [id number] 2.16.84 0.1.651279.3.579.2.593 1965 Unknown [id number] 2.16.84 0.1.390131.3.579.2.593 1965 Unknown [id number] 2.16.84 0.1.129169.3.579.2.593 1965 Unknown [id number] 2.16.84 0.1.767024.3.579.2.593 1965 Unknown [id number] 2.16.84 0.1.054339.3.579.2.593 1965 Unknown [id number] 2.16.84 0.1.988981.3.579.2.593 1965 Unknown [id number] 2.16.84 0.1.903222.3.579.2.593 1965 Unknown [id number] 2.16.84 0.1.491465.3.579.2.593 1965 Unknown [id number] 2.16.84 0.1.714197.3.579.2.593 1965 Unknown [id number] 2.16.84 0.1.434885.3.579.2.593 1965 Unknown [id number] 2.16.84 0.1.010168.3.579.2.593 1965 Unknown [id number] 2.16.84 0.1.266259.3.579.2.593 1965 Unknown [id number] 2.16.84 0.1.891872.3.579.2.593 1965 Unknown [id number] 2.16.84 0.1.308619.3.579.2.593 1965 Unknown [id number] 2.16.84 0.1.476750.3.579.2.593 1965 Unknown [id number] 2.16.84 0.1.781507.3.579.2.593 1965 Unknown [id number] 2.16.84 0.1.195427.3.579.2.593 1965 Unknown [id number] 2.16.84 0.1.822504.3.579.2.593 1965 Unknown [id number] 2.16.84 0.1.027201.3.579.2.593 1965 Unknown [id number] 2.16.8 40.1.469215.3.579.2.727 1965 Unknown [id number] 2.16.84 0.1.933318.3.579.2.9 1965 Unknown [id number] 2.16.84 0.1.423041.3.579.2.1258 1965 Unknown [id number] 2.16.84 0.1.346762.3.579.2.1258 1965 Unknown [id number] 2.16.84 0.1.475324.3.579.2.1258 1965 Unknown [id number] 2.16.84 0.1.525465.3.579.2.9 1965 Unknown [id number] 2.16.840 .1.272388.3.579.2.9 1959 Self-pay [id number] 1959 Unknown [id number] 1959 Unknown [id number] Social History Date Type Detail Facility Start: 12-30-2023 Tobacco smoking status Ex-smoker (fi nding) [facility] Tobacco smoking status Never [facility] Sex Assigned At Female [facility] Functional Status Date Assessment Result Facility 12-30-2023 Functional Status N/A [facility] Discharge instructions 12-30-2023 Note Date & [...] provider. Document Revised: 08/21/2021 Document Reviewed: 08/21/2021 [employer] Patient Education 2023 Health News. Follow Up Care 12/02/2023 13:46:26 With:Farideh BARRERA, Bessie Modi, URL Address: When: Unknown Comments:pending imaging and after PFPT [facility] Clinical Note 12-30-2023 Note Date & Type [...] provider. Document Revised: 08/21/2021 Document Reviewed: 08/21/2021 [employer] Patient Education ? 2023 Health News. [facility] Evaluation + Plan note Note Date & Type Note Facility Evaluation + Plan note No data available for this section [facility] Progress note Note Date & Type Note Facility Progress note No data available for this section [facility] Summary Purpose Family History No Family History Records Found No data available for this section No Family History Records FoundNo Family History Records Found Advance Directives No Advanced Directives Records FoundNo Advanced Directives Records FoundNo Advanced Directives Records Found Additional Source Comments INFORMATION SOURCE (unrecogn ized section and content) DATE CREATED AUTHOR [facility]/02/2022 [facility] DATE CREATED AUTHOR AUTHOR'S ORGANIZ ATION 01/01/2024 [facility] DATE CREATED AUTHOR AUTHOR'S ORGANIZ ATION 01/04/2024 [facility] EPIC Patient Care team informatio n (unrecognized section and content) Personnel Name: John Porter MD Address: Address: [address] [place] [address] FOR RECORDS PERTAINING TO PATIENTS WHO ARE [...] BE BASED ON THE PRIMARY CLINICAL RECORDS. [employer] provides no warranty or guarantee of the accuracy or completeness of information in this document.
== END 2024-01-04 14:14 | disposition home or self-care (01) ==
LOC: PST 14:13
PROVIDERS: PCP Family Medicine; Visit Provider Obstetrics & Gynecology
DX: Z01.818 Encounter for other preprocedural examination (principal); R93.89 Abnormal findings on diagnostic imaging of other specified body structures; R10.2 Pelvic and perineal pain

== ENCOUNTER 2024-01-06 12:15 | Outpatient (OUT) | payer OTHER, SELFPAY ==
--- OUTSIDE RECORDS SUMMARY | 2024-01-06 12:33 | XMS_ITS | CCD ---
Author Organization [facility] CliniSydc Care Team Providers Care Mental Telepathist Name Role Phone GERMAN ., DR LOPEZ [...] Unavailable JUANJOSE ., DR WILSON Attending Unavailable [place], DR ELLYN Dougherty Consulting Unavailable HOY ., [...] Consulting Unavailable John Porter Primary Care Physician Bessie Gong Attending Unavailable VALE HI Attending Unavailable RALF RENDON Referring Unavailable JUANJOSE, KATIE Attending Unavailable JUANJOSEGENI MachucaY Attending Unavailable JUANJOSE, KATIE Attending Unavailable NATALIE TINSLEY Attending Unavailable JUANJOSE, KATIE Attending Unavailable Allergies Allergy Classification Reported Allergen(s) Allergy Type Date of Onset Reaction(s) Facility (1 source) Azithromycin Drug Allergy 2 [facility] Repository (2 sources) Imipramine Drug Allergy 3 [facility] (2 sources) Sulfonamides (Antibiotic) Drug allergy (disorder) 3 [facility] (2 sources) E.E.S. Drug allergy (disorder) 3 [facility] (2 sources) Erythromycin; Translations: [erythromycin] Drug Allergy Unknown (qualifier value) [facility] (2 sources) Imipramine; Translations: [imipramine] Drug Allergy Unknown (qualifier value) [facility] (2 sources) Sulfonamides (Antibiotic); Translations: [sulfa drugs] Drug allergy Unknown (qualifier value) [facility] Problems Active Problems Problem Classification Problem Date [...] 06-05-2022 Episodic Other aftercare (4 sources) Other retirement (current) drug therapy; 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 [facility] Provider Letteron 12-30-2023 Provider Letter Provider Letter December 30, 2023 [place] [address] : 1965 To Whom It May Concern, Please excuse above patient from work. 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 Kidney stones (N20.0: Calculus of kidney) [...] now. -K (more content not included)... Normal [facility] Comment on above: Result Comment: Elec tronically Signed By: Bessie Quiñones\.br\Date and Time Signed: 12/30/23 15:22 EDT MG MAMM DX 3D RT CADon 09-22 MG MAMM DX 3D RT CAD Patient: GEN EYAD SCARLET Meenakshi. Exam Date: 09/22/2022 : 1965 Gender:F Ordering : DR KATIE RUST . Admission #: [id number] Family : Order #: [id number] CLICK HERE TO VIEW EXAM RADIOLOGY REPORT [...] cancer at age 40. LOCATION: [facility] BREAST COMPOSITION: Almost entirely fatty. FINDINGS: [...] MD on 09/22/2022 at 15:03 Normal [facility] US BREAST RIGHT LIMITEDon US BREAST RIGHT LIMITED Patient: YULIA CASTANO Exam Date: 09/22/2022 : 1965 Gender:F Ordering : DR KATIE RUST . Admission #: [id number] Family : Order #: [id number] CLICK HERE TO VIEW EXAM RADIOLOGY REPORT [...] cancer at age 40. LOCATION: [facility] BREAST COMPOSITION: Almost entirely fatty. FINDINGS: [...] MD on 09/22/2022 at 15:03 Normal [facility] US ST HEAD_NECKon 08-31-[address] [...] GABO STRONG Date: 2022-08-31 08:09 Normal [facility] US PELVIS AND TRANSVAGon US [...] STRONG Date: 2022-07-29 06:32 Normal [facility] INSULINon 07-04-2022 Insulin 6.2 uIU/mL Normal 2.6-24.9 [facility] Comment on above: Performed By: #### H STROPN, CMP #### [facility] [address] [place] [address] Dr. Judd Andrade CBC AUTO DIFFon 07-03-2022 BASO # 0.0 103/ul Normal 0.0-0.1 [facility] Comment on above: Performed By: #### C BC #### [facility] [address] [place] [address] Dr. Judd Andrade Basophils/100 WBC (Bld) 1.1 % Normal 0.2-2.0 [facility] Comment on above: Performed By: #### C BC #### [facility] [address] [place] [address] Dr. Judd Andrade EO # 0.1 103/ul Normal 0.0-0.7 [facility] Comment on above: Performed By: #### C BC #### [facility] [address] [place] [address] Dr. Judd Andrade Eosinophils/100 WBC (Bld) 3.6 % Normal 0.9-7.0 [facility] Comment on above: Performed By: #### C BC #### [facility] [address] [place] [address] Dr. Judd Andrade Erythrocyte distribution width (RBC) [Ratio] 13.6 % Normal 11.0-15.0 [facility] Comment on above: Performed By: #### C BC #### [facility] [address] [place] [address] Dr. Judd Andrade Hematocrit (Bld) [Volume fraction] 41.8 % Normal 36.0-48.0 [facility] Comment on above: Performed By: #### C BC #### [facility] [address] [place] [address] Dr. Judd Andrade Hemoglobin (Bld) [Mass/Vol] 13.5 g/dL Normal 12.0-16.0 [facility] Comment on above: Performed By: #### C BC #### [facility] [address] [place] [address] Dr. Judd Andrade IG # 0.01 10e3/ul Normal 0.00-0.03 [facility] Comment on above: Performed By: #### C BC #### [facility] [address] [place] [address] Dr. Judd Andrade IG % 0.3 % Normal 0.0-0.5 [facility] Comment on above: Performed By: #### C BC #### [facility] [address] [place] [address] Dr. Judd Andrade LYMPH # 1.4 103/ul Normal 1.2-3.8 [facility] Comment on above: Performed By: #### C BC #### [facility] [address] [place] [address] Dr. Judd Andrade Lymphocytes/100 WBC (Bld) 38.4 % Normal 20.5-60.0 [facility] Comment on above: Performed By: #### C BC #### [facility] [address] [place] [address] Dr. Judd Andrade MANUAL DIFF REQ NO Normal [facility] Comment on above: Performed By: #### C BC #### [facility] [address] [place] [address] Dr. Judd Andrade MCH (RBC) [Entitic mass] 28.2 pg Normal 26.7-34.0 [facility] Comment on above: Performed By: #### C BC #### [facility] [address] [place] [address] Dr. Judd Andrade MCHC (RBC) [Mass/Vol] 32.3 g/dL Normal 29.9-35.2 [facility] Comment on above: Performed By: #### C BC #### [facility] [address] [place] [address] Dr. Judd Andrade MCV (RBC) [Entitic vol] 87.4 fL Normal 81.0-99.0 [facility] Comment on above: Performed By: #### C BC #### [facility] [address] [place] [address] Dr. Judd Andrade MONO # 0.4 103/ul Normal 0.3-0.8 [facility] Comment on above: Performed By: #### C BC #### [facility] [address] [place] [address] Dr. Judd Andrade Monocytes/100 WBC (Bld) 10.4 % Normal 1.7-12.0 [facility] Comment on above: Performed By: #### C BC #### [facility] [address] [place] [address] Dr. Judd Andrade NEUT # 1.7 103/ul Normal 1.4-6.5 [facility] Comment on above: Performed By: #### C BC #### [facility] [address] [place] [address] Dr. Judd Andrade Neutrophils/100 WBC (Bld) 46.2 % Normal 43.0-75.0 [facility] Comment on above: Performed By: #### C BC #### [facility] [address] [place] [address] Dr. Judd Andrade Platelet mean volume (Bld) [Entitic vol] 9.6 fL Normal 9.5-13.5 [facility] Comment on above: Performed By: #### C BC #### [facility] [address] [place] [address] Dr. Judd Andrade PLT 246 103/ul Normal 150-450 [facility] Comment on above: Performed By: #### C BC #### [facility] [address] [place] [address] Dr. Judd Andrade RBC 4.78 106/ul Normal 4.20-5.40 [facility] Comment on above: Performed By: #### C BC #### [facility] [address] [place] [address] Dr. Judd Andrade WBC 3.7 103/ul Critically low 4.0-11.0 [facility] Comment on above: Performed By: #### C BC #### [facility] [address] [address] [address] Judd Andrade FREE THYROXINE INDEX T7on FTI 3.20 Normal 1.30-4.50 [facility] Comment on above: Performed By: #### T 7, LIPID, TSH, CMP #### [facility] [address] [place] [address] Dr. Judd Andrade T3U 36.0 % Normal 30.0-39.0 [facility] Comment on above: Performed By: #### T 7, LIPID, TSH, CMP #### [facility] [address] [place] [address] Dr. Judd Andrade T4 [Mass/Vol] 8.90 ug/dL Normal 4.80-13.90 [facility] Comment on above: Performed By: #### T 7, LIPID, TSH, CMP #### [facility] [address] [place] [address] Dr. Judd Andrade GLYCOHEMOGLOBIN A1Con 2022 ADA RECOMMENDATION SEE BELOW Normal [facility] Comment on above: Result Comment: ADA RECOMMENDED LIMIT 4.0 - 6.0 ADA THERAPEUTIC TARGET < 7.0 ACTION SUGGESTED > 7.0 Performed By: #### C BC #### [facility] [address] [place] [address] Dr. Judd Andrade Glucose [Mass/Vol] 120 mg/dL Normal [facility] Comment on above: Performed By: #### C BC #### [facility] [address] [place] [address] Dr. Judd Andrade HbA1c (Bld) [Mass fraction] 5.8 % Normal 4.5-6.2 [facility] Comment on above: Performed By: #### C BC #### [facility] [address] [place] [address] Dr. Judd Andrade IRONon 07-03-2022 Iron [Mass/Vol] 67.0 ug/dL Normal 50.0-170.0 [facility] Comment on above: Performed By: #### V ITAD, IRON #### [facility] [address] [address] [address] Judd Andrade LIPID PROFILEon 07-03-2022 CHOL-HDL RATIO NORM SEE BELOW Normal [facility] Comment on above: Result Comment: 3.3 - 4.4 LOW RISK 4.4 - 7.1 AVERAGE RISK 7.1 - 11.0 MODERATE RISK >11.0 HIGH RISK Performed By: #### T 7, LIPID, TSH, CMP #### [facility] [address] [address] [address] Judd Andrade Cholesterol [Mass/Vol] 216 mg/dL Critically high <=200 [facility] Comment on above: Performed By: #### T 7, LIPID, TSH, CMP #### [facility] [address] [address] [address] Judd Andrade Cholesterol in HDL [Mass/Vol] 87 mg/dL Critically high 40-60 [facility] Comment on above: Performed By: #### T 7, LIPID, TSH, CMP #### [facility] [address] [address] [address] Judd Andrade Cholesterol in LDL [Mass/Vol] 124.2 mg/dL Normal [facility] Comment on above: Performed By: #### T 7, LIPID, TSH, CMP #### [facility] [address] [address] [address] Judd Andrade Cholesterol.total/Ch olesterol in HDL [Mass ratio] 2.5 {ratio} Normal [facility] Comment on above: Performed By: #### T 7, LIPID, TSH, CMP #### [facility] [address] [address] [address] Judd Andrade HDL NORMAL > or = 60 mg/dl - LO W CARDIOVASCULAR RISK <40 mg/dl - HIGH CARDIOVASCULAR RISK Normal [facility] Comment on above: Performed By: #### T 7, LIPID, TSH, CMP #### [facility] [address] [address] [address] Judd Andrade LDL CALC NORMAL SEE BELOW Normal [facility] Comment on above: Result Comment: <100 mg/dl OPTIMAL 100 - 129 mg/dl NEAR OR ABOVE OPTIMAL 130 - 159 mg/dl BORDERLINE HIGH 160 - 189 mg/dl HIGH >190 mg/dl VERY HIGH Performed By: #### T 7, LIPID, TSH, CMP #### [facility] [address] [address] [address] Judd Andrade Triglyceride [Mass/Vol] 24 mg/dL Normal <=150 [facility] Comment on above: Performed By: #### T 7, LIPID, TSH, CMP #### [facility] [address] [address] [address] Judd Andrade VLDL CALC 4.8 mg/dL Normal [facility] Comment on above: Performed By: #### T 7, LIPID, TSH, CMP #### [facility] [address] [address] [address] Judd Andrade PROF 14(COMP METB)on 023 Albumin [Mass/Vol] 4.0 g/dL Normal 3.4-5.0 [facility] Comment on above: Performed By: #### T 7, LIPID, TSH, CMP #### [facility] [address] [place] [address] Dr. Judd Andrade Albumin/Globulin [Mass ratio] 1.1 {ratio} Normal [facility] Comment on above: Performed By: #### T 7, LIPID, TSH, CMP #### [facility] [address] [address] [address] Judd Andrade ALP [Catalytic activity/Vol] 78 U/L Normal 46-116 [facility] Comment on above: Performed By: #### T 7, LIPID, TSH, CMP #### [facility] [address] [place] [address] Dr. Judd Andrade ALT [Catalytic activity/Vol] 29 U/L Normal 14-59 [facility] Comment on above: Performed By: #### T 7, LIPID, TSH, CMP #### [facility] [address] [place] [address] Dr. Judd Andrade Anion gap [Moles/Vol] 5.6 mmol/L Normal [facility] Comment on above: Performed By: #### T 7, LIPID, TSH, CMP #### [facility] [address] [address] [address] Judd Andrade AST [Catalytic activity/Vol] 23 U/L Normal 15-37 [facility] Comment on above: Performed By: #### T 7, LIPID, TSH, CMP #### [facility] [address] [address] [address] Judd Andrade Bilirubin [Mass/Vol] 0.5 mg/dL Normal 0.2-1.0 [facility] Comment on above: Performed By: #### T 7, LIPID, TSH, CMP #### [facility] [address] [address] [address] Judd Andrade Calcium [Mass/Vol] 8.9 mg/dL Normal 8.5-10.1 [facility] Comment on above: Performed By: #### T 7, LIPID, TSH, CMP #### [facility] [address] [place] [address] Dr. Judd Andrade Chloride [Moles/Vol] 105 mmol/L Normal 98-107 [facility] Comment on above: Performed By: #### T 7, LIPID, TSH, CMP #### [facility] [address] [address] [address] Judd Andrade CO2 [Moles/Vol] 32.0 mmol/L Normal 21.0-32.0 [facility] Comment on above: Performed By: #### T 7, LIPID, TSH, CMP #### [facility] [address] [address] [address] Judd Andrade Creatinine [Mass/Vol] 0.52 mg/dL Critically low 0.55-1.02 [facility] Comment on above: Performed By: #### T 7, LIPID, TSH, CMP #### [facility] [address] [place] [address] Dr. Judd Andrade EGFR-AF GAMBIAN >60 Normal >=60 [facility] Comment on above: Performed By: #### T 7, LIPID, TSH, CMP #### [facility] [address] [address] [address] Judd Andrade EGFR-NON AF GAMBIAN >60 Normal >=60 [facility] Comment on above: Performed By: #### T 7, LIPID, TSH, CMP #### [facility] [address] [address] [address] Judd Andrade Globulin (S) [Mass/Vol] 3.6 g/dL Normal [facility] Comment on above: Performed By: #### T 7, LIPID, TSH, CMP #### [facility] [address] [address] [address] Judd Andrade Glucose [Mass/Vol] 89 mg/dL Normal 74-106 [facility] Comment on above: Performed By: #### T 7, LIPID, TSH, CMP #### [facility] [address] [place] [address] Dr. Judd Andrade Potassium [Moles/Vol] 4.2 mmol/L Normal 3.5-5.1 [facility] Comment on above: Performed By: #### T 7, LIPID, TSH, CMP #### [facility] [address] [address] [address] Judd Andrade Protein [Mass/Vol] 7.6 g/dL Normal 6.4-8.2 [facility] Comment on above: Performed By: #### T 7, LIPID, TSH, CMP #### [facility] [address] [place] [address] Dr. Judd Andrade Sodium [Moles/Vol] 139 mmol/L Normal 136-145 [facility] Comment on above: Performed By: #### T 7, LIPID, TSH, CMP #### [facility] [address] [place] [address] Dr. Judd Anrdade Urea nitrogen [Mass/Vol] 11.0 mg/dL Normal 7.0-18.0 [facility] Comment on above: Performed By: #### T 7, LIPID, TSH, CMP #### [facility] [address] [place] [address] Dr. Judd Andrade Urea nitrogen/Creatinine [Mass ratio] 21.2 mg/mg Normal [facility] Comment on above: Performed By: #### T 7, LIPID, TSH, CMP #### [facility] [address] [place] [address] Dr. Judd Andrade TSHon 07-03-2022 TSH 1.037 uIU/mL Normal 0.358-3.740 [facility] Comment on above: Performed By: #### T 7, LIPID, TSH, CMP #### [facility] [address] [place] [address] Dr. Judd Andrade VITAMIN D 25 OHon 07-03-2022 VIT D 25-OH 32.8 ng/mL Normal [facility] Comment on above: Performed By: #### V ITAD, IRON #### [facility] [address] [place] [address] Dr. Judd Andrade VIT D RANGES SEE BELOW Normal [facility] Comment on above: Result Comment: <20 ng/mL Vit D deficient 20 - <30 ng/mL Vit D insufficient 30 - 100 ng/mL Vit D sufficient >100 ng/mL Potential Toxicity Performed By: #### V ITAD, IRON #### [facility] [address] [place] [address] Dr. Judd Andrade BORDETELLA PERTUSSIS AB IGGo n 06-30-2022 B pertussis IgG Ab 3.88 index Invalid Interpretation Code 0.00-0.94 [facility] Comment on above: Result Comment: Clie nt Requested Flag Negative <0.95 Equivocal 0.95 - 1.04 Positive >1.04 Performed By: #### C BC #### [facility] [address] [place] [address] Dr. Judd Andrade BORDETELLA PERTUSSIS AB IGMo n 06-30-2022 B pertussis IgM Ab <1.0 Normal 0.0-0.9 [facility] Comment on above: Result Comment: Nega tive <1.0 Borderline 1.0 - 1.1 Positive >1.1 Performed By: #### H STROPN, CMP #### [facility] [address] [place] [address] Dr. Judd Andrade [id number] 2022 [id number]-[id number], Serum 158 mg/dL Normal 101-187 [facility] Comment on above: Performed By: #### C BC #### [facility] [address] [place] [address] Dr. Judd Andarde CBC AUTO DIFFon 06-03-2022 BASO # 0.0 103/ul Normal 0.0-0.1 [facility] Comment on above: Performed By: #### H STROPN, CMP #### [facility] [address] [place] [address] Dr. Judd Andrade Basophils/100 WBC (Bld) 0.6 % Normal 0.2-2.0 [facility] Comment on above: Performed By: #### H STROPN, CMP #### [facility] [address] [place] [address] Dr. Judd Andrade EO # 0.0 103/ul Normal 0.0-0.7 [facility] Comment on above: Performed By: #### H STROPN, CMP #### [facility] [address] [place] [address] Dr. Judd Andrade Eosinophils/100 WBC (Bld) 0.6 % Critically low 0.9-7.0 [facility] Comment on above: Performed By: #### H STROPN, CMP #### [facility] [address] [place] [address] Dr. Judd Andrade Erythrocyte distribution width (RBC) [Ratio] 13.5 % Normal 11.0-15.0 [facility] Comment on above: Performed By: #### H STROPN, CMP #### [facility] [address] [place] [address] Dr. Judd Andrade Hematocrit (Bld) [Volume fraction] 42.4 % Normal 36.0-48.0 [facility] Comment on above: Performed By: #### H STROPN, CMP #### [facility] [address] [place] [address] Dr. Judd Andrade Hemoglobin (Bld) [Mass/Vol] 13.4 g/dL Normal 12.0-16.0 [facility] Comment on above: Performed By: #### H STROPN, CMP #### [facility] [address] [place] [address] Dr. Judd Andrade IG # 0.01 10e3/ul Normal 0.00-0.03 [facility] Comment on above: Performed By: #### H DEB, CMP #### [facility] [address] [address] [address] Judd Andrade IG % 0.2 % Normal 0.0-0.5 [facility] Comment on above: Performed By: #### H DEB, CMP #### [facility] [address] [address] [address] Judd Andrade LYMPH # 1.1 103/ul Critically low 1.2-3.8 [facility] Comment on above: Performed By: #### H DEB, CMP #### [facility] [address] [place] [address] Dr. Judd Andrade Lymphocytes/100 WBC (Bld) 23.5 % Normal 20.5-60.0 [facility] Comment on above: Performed By: #### H DEB, CMP #### [facility] [address] [place] [address] Dr. Judd Andrade MANUAL DIFF REQ NO Normal [facility] Comment on above: Performed By: #### H DEB, CMP #### [facility] [address] [place] [address] Dr. Judd Andrade MCH (RBC) [Entitic mass] 28.9 pg Normal 26.7-34.0 [facility] Comment on above: Performed By: #### H DEB, CMP #### [facility] [address] [place] [address] Dr. Judd Andrade MCHC (RBC) [Mass/Vol] 31.6 g/dL Normal 29.9-35.2 [facility] Comment on above: Performed By: #### H DEB, CMP #### [facility] [address] [place] [address] Dr. Judd Andrade MCV (RBC) [Entitic vol] 91.6 fL Normal 81.0-99.0 [facility] Comment on above: Performed By: #### H TERAPN, CMP #### [facility] [address] [address] [address] Judd Andrade MONO # 0.8 103/ul Normal 0.3-0.8 [facility] Comment on above: Performed By: #### H STROPN, CMP #### [facility] [address] [place] [address] Dr. Judd Andrade Monocytes/100 WBC (Bld) 16.5 % Critically high 1.7-12.0 [facility] Comment on above: Performed By: #### H STROPN, CMP #### [facility] [address] [place] [address] Dr. Judd Andrade NEUT # 2.7 103/ul Normal 1.4-6.5 [facility] Comment on above: Performed By: #### H STROPN, CMP #### [facility] [address] [place] [address] Dr. Judd Andrade Neutrophils/100 WBC (Bld) 58.6 % Normal 43.0-75.0 [facility] Comment on above: Performed By: #### H STROPN, CMP #### [facility] [address] [place] [address] Dr. Judd Andrade Platelet mean volume (Bld) [Entitic vol] 9.8 fL Normal 9.5-13.5 [facility] Comment on above: Performed By: #### H STROPN, CMP #### [facility] [address] [place] [address] Dr. Judd Andrade PLT 252 103/ul Normal 150-450 [facility] Comment on above: Performed By: #### H STROPN, CMP #### [facility] [address] [place] [address] Dr. Judd Andrade RBC 4.63 106/ul Normal 4.20-5.40 [facility] Comment on above: Performed By: #### H STROPN, CMP #### [facility] [address] [place] [address] Dr. Judd Andrade WBC 4.7 103/ul Normal 4.0-11.0 [facility] Comment on above: Performed By: #### H STROPN, CMP #### [facility] [address] [address] [address] Judd Andrade PROF 14(COMP METB)on 023 Albumin [Mass/Vol] 4.0 g/dL Normal 3.4-5.0 [facility] Comment on above: Performed By: #### H DEB, CMP #### [facility] [address] [address] [address] Judd Andrade Albumin/Globulin [Mass ratio] 1.0 {ratio} Normal [facility] Comment on above: Performed By: #### H DEB, CMP #### [facility] [address] [address] [address] Judd Andrade ALP [Catalytic activity/Vol] 77 U/L Normal 46-116 [facility] Comment on above: Performed By: #### H DEB, CMP #### [facility] [address] [place] [address] Dr. uJdd Andrade ALT [Catalytic activity/Vol] 33 U/L Normal 14-59 [facility] Comment on above: Performed By: #### H DEB, CMP #### [facility] [address] [place] [address] Dr. Judd Andrade Anion gap [Moles/Vol] 8.0 mmol/L Normal [facility] Comment on above: Performed By: #### H DEB, CMP #### [facility] [address] [place] [address] Dr. Judd Andrade AST [Catalytic activity/Vol] 28 U/L Normal 15-37 [facility] Comment on above: Performed By: #### H TERAPN, CMP #### [facility] [address] [address] [address] Judd Andrade Bilirubin [Mass/Vol] 0.6 mg/dL Normal 0.2-1.0 [facility] Comment on above: Performed By: #### H STROPN, CMP #### [facility] [address] [address] [address] Judd Andrade Calcium [Mass/Vol] 9.3 mg/dL Normal 8.5-10.1 [facility] Comment on above: Performed By: #### H STROPN, CMP #### [facility] [address] [address] [address] Judd Andrade Chloride [Moles/Vol] 103 mmol/L Normal 98-107 [facility] Comment on above: Performed By: #### H STROPN, CMP #### [facility] [address] [address] [address] Judd Andrade CO2 [Moles/Vol] 33.6 mmol/L Critically high 21.0-32.0 [facility] Comment on above: Performed By: #### H STROPN, CMP #### [facility] [address] [address] [address] Judd Andrade Creatinine [Mass/Vol] 0.59 mg/dL Normal 0.55-1.02 [facility] Comment on above: Performed By: #### H STROPN, CMP #### [facility] [address] [address] [address] Judd Andrade EGFR-AF GAMBIAN >60 Normal >=60 [facility] Comment on above: Performed By: #### H STROPN, CMP #### [facility] [address] [address] [address] Judd Andrade EGFR-NON AF GAMBIAN >60 Normal >=60 [facility] Comment on above: Performed By: #### H STROPN, CMP #### [facility] [address] [address] [address] Judd Andrade Globulin (S) [Mass/Vol] 4.0 g/dL Normal [facility] Comment on above: Performed By: #### H STROPN, CMP #### [facility] [address] [address] [address] Judd Andrade Glucose [Mass/Vol] 130 mg/dL Critically high 74-106 [facility] Comment on above: Performed By: #### H STROPN, CMP #### [facility] [address] [address] [address] Judd Andrade Potassium [Moles/Vol] 3.6 mmol/L Normal 3.5-5.1 [facility] Comment on above: Performed By: #### H STROPN, CMP #### [facility] [address] [address] [address] Judd Andrade Protein [Mass/Vol] 8.0 g/dL Normal 6.4-8.2 [facility] Comment on above: Performed By: #### H STROPN, CMP #### [facility] [address] [address] [address] Judd Andrade Sodium [Moles/Vol] 141 mmol/L Normal 136-145 [facility] Comment on above: Performed By: #### H STROPN, CMP #### [facility] [address] [address] [address] Judd Andrade Urea nitrogen [Mass/Vol] 8.0 mg/dL Normal 7.0-18.0 [facility] Comment on above: Performed By: #### H STROPN, CMP #### [facility] [address] [address] [address] Judd Andrade Urea nitrogen/Creatinine [Mass ratio] 13.6 mg/mg Normal [facility] Comment on above: Performed By: #### H STROPN, CMP #### [facility] [address] [address] [address] Judd Andrade TROPONIN, HIGH SENSITIVITYon 06-03-2022 HSTROP <4.0 Normal 4.0-51.3 [facility] Comment on above: Result Comment: CUT- OFF POINTS HAVE BEEN ESTABLISHED BASED ON THE FOURTH UNIVERSAL DEFINITIONS OF MYOCARDIAL INFARCTION. THE UPPER REFERENCE LIMIT (URL) OF TROPONIN, DEFINED THE 99TH PERCENTILE OF cTnI DISTRIBUTION IN A REFERENCE POPULATION, HAS BEEN CONFIRMED THE DECISION THRESHOLD FOR VT DIAGNOSIS. Performed By: #### H STROPN, CMP #### [facility] [address] [address] [address] Judd Andrade XR CHEST 2 Von [...] RHODES Date: 2022-06-03 12:15 Normal [facility] Covid-19 PCR (CVDTB)on SARS-CoV-2 (COVID-19) RNA JOLLY+probe Ql (Unsp spec) Not detected Normal NOT DETECTED [facility] Comment on above: Result Comment: This test is not yet approved or cleared by the [place] FDA. When there are no FDA-approved or cleared tests available, and other criteria are met, FDA can make tests available under an emergency access mechanism called an Emergency Use Authorization (EUA). The EUA for this test is supported by the [employer] of Health and Human Service's (HHS's) declaration [...] By: #### H DEB, CMP #### [facility] [address] [place] [address] Dr. Judd Andrade INFLUENZA A AND B AGon 06-02 [facility] SEE BELOW Normal [facility] Comment on above: Result Comment: Nega tive for Flu A protein angiten. Infection due to Flu A cannot be ruled out. Flu A angiten in the sample may be below the detection limit of the test. Performed By: #### H DEB, CMP #### [facility] [address] [place] [address] Dr. Judd Andrade [facility] SEE BELOW Normal [facility] Comment on above: Result Comment: Nega tive for Flu B protein antigen. Infection due to Flu B cannot be ruled out. Flu B antigen in the sample may be below the detection limit of the test. Performed By: #### H STROPN, CMP #### [facility] [address] [address] [address] Judd Andrade INFLUENZA A AG Negative Normal NEGATIVE SEE COMMENT [facility] Comment on above: Performed By: #### H STROPN, CMP #### [facility] [address] [address] [address] Judd Andrade INFLUENZA B AG Negative Normal NEGATIVE SEE COMMENT [facility] Comment on above: Performed By: #### H STROPN, CMP #### [facility] [address] [place], [place] [address] Dr[address] HEAD_NECKon 02-11-2022 [...] STRONG Date: 2022-02-11 16:24 Normal [facility] MG MAMM SCREEN 3D SUSANA CADon 02-10-2022 MG MAMM SCREEN 3D SUSANA CAD Patient: YULIA CASTANO Exam Date: 02/10/2022 : 1965 Gender:F Ordering : DR JOHN PORTER . Admission #: [id number] Family : Order #: [id number] CLICK HERE TO VIEW EXAM RADIOLOGY REPORT [...] cancer at age 40. LOCATION: [facility] BREAST COMPOSITION: Almost entirely fatty. FINDINGS: [...] M.D. on 02/11/2022 at 14:20 Normal [facility] XR CHEST 1 Von 01-15-2022 XR [...] VALDEZ Date: 2022-01-15 18:39 Normal [facility] CBC AUTO DIFFon 12-30-2021 BASO # 0.0 103/ul Normal 0.0-0.1 [facility] Comment on above: Performed By: #### C BC #### [facility] [address] [address] [address] Judd Andrade Basophils/100 WBC (Bld) 0.6 % Normal 0.2-2.0 [facility] Comment on above: Performed By: #### C BC #### [facility] [address] [address] [address] Judd Andrade EO # 0.1 103/ul Normal 0.0-0.7 [facility] Comment on above: Performed By: #### C BC #### [facility] [address] [address] [address] Judd Andrade Eosinophils/100 WBC (Bld) 2.1 % Normal 0.9-7.0 [facility] Comment on above: Performed By: #### C BC #### [facility] [address] [place] [address] Dr. Judd Andrade Erythrocyte distribution width (RBC) [Ratio] 13.0 % Normal 11.0-15.0 [facility] Comment on above: Performed By: #### C BC #### [facility] [address] [place] [address] Dr. Judd Andrade Hematocrit (Bld) [Volume fraction] 41.9 % Normal 36.0-48.0 [facility] Comment on above: Performed By: #### C BC #### [facility] [address] [place] [address] Dr. Judd Andrade Hemoglobin (Bld) [Mass/Vol] 13.7 g/dL Normal 12.0-16.0 [facility] Comment on above: Performed By: #### C BC #### [facility] [address] [place] [address] Dr. Judd Andrade IG # 0.03 10e3/ul Normal 0.00-0.03 [facility] Comment on above: Performed By: #### C BC #### [facility] [address] [place] [address] Dr. Judd Andrade IG % 0.6 % Critically high 0.0-0.5 [facility] Comment on above: Performed By: #### C BC #### [facility] [address] [place] [address] Dr. Judd Andrade LYMPH # 1.9 103/ul Normal 1.2-3.8 [facility] Comment on above: Performed By: #### C BC #### [facility] [address] [place] [address] Dr. Judd Andrade Lymphocytes/100 WBC (Bld) 34.5 % Normal 20.5-60.0 [facility] Comment on above: Performed By: #### C BC #### [facility] [address] [place] [address] Dr. Judd Andrade MANUAL DIFF REQ NO Normal [facility] Comment on above: Performed By: #### C BC #### [facility] [address] [place] [address] Dr. Judd Andrade MCH (RBC) [Entitic mass] 28.5 pg Normal 26.7-34.0 [facility] Comment on above: Performed By: #### C BC #### [facility] [address] [place] [address] Dr. Judd Andrade MCHC (RBC) [Mass/Vol] 32.7 g/dL Normal 29.9-35.2 [facility] Comment on above: Performed By: #### C BC #### [facility] [address] [place] [address] Dr. Judd Andrade MCV (RBC) [Entitic vol] 87.1 fL Normal 81.0-99.0 [facility] Comment on above: Performed By: #### C BC #### [facility] [address] [place] [address] Dr. Judd Andrade MONO # 0.6 103/ul Normal 0.3-0.8 [facility] Comment on above: Performed By: #### C BC #### [facility] [address] [place] [address] Dr. Judd Andrade Monocytes/100 WBC (Bld) 10.4 % Normal 1.7-12.0 [facility] Comment on above: Performed By: #### C BC #### [facility] [address] [place] [address] Dr. Judd Andrade NEUT # 2.8 103/ul Normal 1.4-6.5 [facility] Comment on above: Performed By: #### C BC #### [facility] [address] [place] [address] Dr. Judd Andrade Neutrophils/100 WBC (Bld) 51.8 % Normal 43.0-75.0 [facility] Comment on above: Performed By: #### C BC #### [facility] [address] [place] [address] Dr. Judd Andrade Platelet mean volume (Bld) [Entitic vol] 10.5 fL Normal 9.5-13.5 [facility] Comment on above: Performed By: #### C BC #### [facility] [address] [place] [address] Dr. Judd Andrade PLT 270 103/ul Normal 150-450 [facility] Comment on above: Performed By: #### C BC #### [facility] [address] [place] [address] Dr. Judd Andrade RBC 4.81 106/ul Normal 4.20-5.40 [facility] Comment on above: Performed By: #### C BC #### [facility] [address] [place] [address] Dr. Judd Andrade WBC 5.4 103/ul Normal 4.0-11.0 [facility] Comment on above: Performed By: #### C BC #### [facility] [address] [place] [address] Dr. Judd Andrade CRPon 12-30-2021 CRP [Mass/Vol] mg/L Normal <=1.0 [facility] Comment on above: Performed By: #### C BC #### [facility] [address] [place] [address] Dr. Judd Andrade PROF 14(COMP METB)on 022 Albumin [Mass/Vol] 3.9 g/dL Normal 3.4-5.0 [facility] Comment on above: Performed By: #### C BC #### [facility] [address] [place] [address] Dr. Judd Andrade Albumin/Globulin [Mass ratio] 1.0 {ratio} Normal [facility] Comment on above: Performed By: #### C BC #### [facility] [address] [place] [address] Dr. Judd Andrade ALP [Catalytic activity/Vol] 64 U/L Normal 46-116 [facility] Comment on above: Performed By: #### C BC #### [facility] [address] [place] [address] Dr. Judd Andrade ALT [Catalytic activity/Vol] 50 U/L Normal 14-59 [facility] Comment on above: Performed By: #### C BC #### [facility] [address] [place] [address] Dr. Judd Andrade Anion gap [Moles/Vol] 11.1 mmol/L Normal [facility] Comment on above: Performed By: #### C BC #### [facility] [address] [address] [address] Judd Andrade AST [Catalytic activity/Vol] 28 U/L Normal 15-37 [facility] Comment on above: Performed By: #### C BC #### [facility] [address] [address] [address] Judd Andrade Bilirubin [Mass/Vol] 0.5 mg/dL Normal 0.2-1.0 [facility] Comment on above: Performed By: #### C BC #### [facility] [address] [address] [address] Judd Andrade Calcium [Mass/Vol] 8.9 mg/dL Normal 8.5-10.1 [facility] Comment on above: Performed By: #### C BC #### [facility] [address] [address] [address] Judd Andrade Chloride [Moles/Vol] 101 mmol/L Normal 98-107 [facility] Comment on above: Performed By: #### C BC #### [facility] [address] [address] [address] Judd Andrade CO2 [Moles/Vol] 29.4 mmol/L Normal 21.0-32.0 [facility] Comment on above: Performed By: #### C BC #### [facility] [address] [address] [address] Judd Andrade Creatinine [Mass/Vol] 0.73 mg/dL Normal 0.55-1.02 [facility] Comment on above: Performed By: #### C BC #### [facility] [address] [address] [address] Judd Andrade EGFR-AF GAMBIAN >60 Normal >=60 [facility] Comment on above: Performed By: #### C BC #### [facility] [address] [address] [address] Judd Andrade EGFR-NON AF GAMBIAN >60 Normal >=60 [facility] Comment on above: Performed By: #### C BC #### [facility] [address] [address] [address] Judd Andrade Globulin (S) [Mass/Vol] 3.8 g/dL Normal [facility] Comment on above: Performed By: #### C BC #### [facility] [address] [address] [address] Judd Andrade Glucose [Mass/Vol] 139 mg/dL Critically high 74-106 [facility] Comment on above: Performed By: #### C BC #### [facility] [address] [address] [address] Judd Andrade Potassium [Moles/Vol] 3.5 mmol/L Normal 3.5-5.1 [facility] Comment on above: Performed By: #### C BC #### [facility] [address] [address] [address] Judd Andrade Protein [Mass/Vol] 7.7 g/dL Normal 6.4-8.2 [facility] Comment on above: Performed By: #### C BC #### [facility] [address] [address] [address] Judd Andrade Sodium [Moles/Vol] 138 mmol/L Normal 136-145 [facility] Comment on above: Performed By: #### C BC #### [facility] [address] [address] [address] Judd Andrade Urea nitrogen [Mass/Vol] 12.0 mg/dL Normal 7.0-18.0 [facility] Comment on above: Performed By: #### C BC #### [facility] [address] [address] [address] Judd Andrade Urea nitrogen/Creatinine [Mass ratio] 16.4 mg/mg Normal [facility] Comment on above: Performed By: #### C BC #### [facility] [address] [address] [address] Judd Andrade XR CHEST 2 Von [...] DIXON Date: 2021-12-29 20:49 Normal [facility] TRYPTASEon 12-27-2021 Tryptase 4.5 ug/L Normal 2.2-13.2 [facility] Comment on above: Performed By: #### C BC #### [facility] [address] [place] [address] Dr. Judd Andrade CBC AUTO DIFFon 12-23-2021 BASO # 0.0 103/ul Normal 0.0-0.1 [facility] Comment on above: Performed By: #### H TERAPN, CMP #### [facility] [address] [place] [address] Dr. Judd Andrade Basophils/100 WBC (Bld) 0.7 % Normal 0.2-2.0 [facility] Comment on above: Performed By: #### H TERAPN, CMP #### [facility] [address] [place] [address] Dr. Judd Andrade EO # 0.0 103/ul Normal 0.0-0.7 [facility] Comment on above: Performed By: #### H STROPN, CMP #### [facility] [address] [place] [address] Dr. Judd Andrade Eosinophils/100 WBC (Bld) 0.0 % Critically low 0.9-7.0 [facility] Comment on above: Performed By: #### H STROPN, CMP #### [facility] [address] [place] [address] Dr. Judd Andrade Erythrocyte distribution width (RBC) [Ratio] 13.2 % Normal 11.0-15.0 [facility] Comment on above: Performed By: #### H TERAPN, CMP #### [facility] [address] [place] [address] Dr. Judd Andrade Hematocrit (Bld) [Volume fraction] 42.1 % Normal 36.0-48.0 [facility] Comment on above: Performed By: #### H STROPN, CMP #### [facility] [address] [address] [address] Judd Andrade Hemoglobin (Bld) [Mass/Vol] 13.7 g/dL Normal 12.0-16.0 [facility] Comment on above: Performed By: #### H STROPN, CMP #### [facility] [address] [address] [address] Judd Andrade IG # 0.01 10e3/ul Normal 0.00-0.03 [facility] Comment on above: Performed By: #### H STROPN, CMP #### [facility] [address] [address] [address] Judd Andrade IG % 0.3 % Normal 0.0-0.5 [facility] Comment on above: Performed By: #### H STROPN, CMP #### [facility] [address] [place] [address] Dr. Judd Andrade LYMPH # 0.7 103/ul Critically low 1.2-3.8 [facility] Comment on above: Performed By: #### H STROPN, CMP #### [facility] [address] [address] [address] Judd Andrade Lymphocytes/100 WBC (Bld) 24.1 % Normal 20.5-60.0 [facility] Comment on above: Performed By: #### H STROPN, CMP #### [facility] [address] [address] [address] Judd Andrade MANUAL DIFF REQ NO Normal [facility] Comment on above: Performed By: #### H STROPN, CMP #### [facility] [address] [address] [address] Judd Andrade MCH (RBC) [Entitic mass] 28.4 pg Normal 26.7-34.0 [facility] Comment on above: Performed By: #### H STROPN, CMP #### [facility] [address] [place] [address] Dr. Judd Andrade MCHC (RBC) [Mass/Vol] 32.5 g/dL Normal 29.9-35.2 [facility] Comment on above: Performed By: #### H STROPN, CMP #### [facility] [address] [place] [address] Dr. Judd Andrade MCV (RBC) [Entitic vol] 87.2 fL Normal 81.0-99.0 [facility] Comment on above: Performed By: #### H STROPN, CMP #### [facility] [address] [place] [address] Dr. Judd Andrade MONO # 0.5 103/ul Normal 0.3-0.8 [facility] Comment on above: Performed By: #### H STROPN, CMP #### [facility] [address] [place] [address] Dr. Judd Andrade Monocytes/100 WBC (Bld) 16.9 % Critically high 1.7-12.0 [facility] Comment on above: Performed By: #### H STROPN, CMP #### [facility] [address] [place] [address] Dr. Judd Andrade NEUT # 1.8 103/ul Normal 1.4-6.5 [facility] Comment on above: Performed By: #### H STROPN, CMP #### [facility] [address] [place] [address] Dr. Judd Andrade Neutrophils/100 WBC (Bld) 58.0 % Normal 43.0-75.0 [facility] Comment on above: Performed By: #### H STROPN, CMP #### [facility] [address] [place] [address] Dr. Judd Andrade Platelet mean volume (Bld) [Entitic vol] 9.9 fL Normal 9.5-13.5 [facility] Comment on above: Performed By: #### H STROPN, CMP #### [facility] [address] [place] [address] Dr. Judd Andrade PLT 210 103/ul Normal 150-450 [facility] Comment on above: Performed By: #### H STROPN, CMP #### [facility] [address] [place] [address] Dr. Judd Andrade RBC 4.83 106/ul Normal 4.20-5.40 [facility] Comment on above: Performed By: #### H TERAPN, CMP #### [facility] [address] [place] [address] Dr. Judd Andrade WBC 3.1 103/ul Critically low 4.0-11.0 [facility] Comment on above: Performed By: #### H TERAPN, CMP #### [facility] [address] [place] [address] Dr. Judd Andrade IRONon 12-23-2021 Iron [Mass/Vol] 35.0 ug/dL Critically low 50.0-170.0 [facility] Comment on above: Performed By: #### C BC #### [facility] [address] [place] [address] Dr. Judd Andrade PROF 14(COMP METB)on Albumin [Mass/Vol] 3.9 g/dL Normal 3.4-5.0 [facility] Comment on above: Performed By: #### C BC #### [facility] [address] [place] [address] Dr. Judd Andrade Albumin/Globulin [Mass ratio] 1.0 {ratio} Normal [facility] Comment on above: Performed By: #### C BC #### [facility] [address] [place] [address] Dr. Judd Andrade ALP [Catalytic activity/Vol] 70 U/L Normal 46-116 [facility] Comment on above: Performed By: #### C BC #### [facility] [address] [place] [address] Dr. Judd Andrade ALT [Catalytic activity/Vol] 43 U/L Normal 14-59 [facility] Comment on above: Performed By: #### C BC #### [facility] [address] [place] [address] Dr. Judd Andrade Anion gap [Moles/Vol] 11.5 mmol/L Normal [facility] Comment on above: Performed By: #### C BC #### [facility] [address] [place] [address] Dr. Judd Andrade AST [Catalytic activity/Vol] 33 U/L Normal 15-37 [facility] Comment on above: Performed By: #### C BC #### [facility] [address] [place] [address] Dr. Judd Andrade Bilirubin [Mass/Vol] 0.3 mg/dL Normal 0.2-1.0 [facility] Comment on above: Performed By: #### C BC #### [facility] [address] [address] [address] Judd Andrade Calcium [Mass/Vol] 8.9 mg/dL Normal 8.5-10.1 [facility] Comment on above: Performed By: #### C BC #### [facility] [address] [place] [address] Dr. Judd Andrade Chloride [Moles/Vol] 101 mmol/L Normal 98-107 [facility] Comment on above: Performed By: #### C BC #### [facility] [address] [place] [address] Dr. Judd Andrade CO2 [Moles/Vol] 31.1 mmol/L Normal 21.0-32.0 [facility] Comment on above: Performed By: #### C BC #### [facility] [address] [place] [address] Dr. Judd Andrade Creatinine [Mass/Vol] 0.69 mg/dL Normal 0.55-1.02 [facility] Comment on above: Performed By: #### C BC #### [facility] [address] [place] [address] Dr. Judd Andrade EGFR-AF GAMBIAN >60 Normal >=60 [facility] Comment on above: Performed By: #### C BC #### [facility] [address] [place] [address] Dr. Judd Andrade EGFR-NON AF GAMBIAN >60 Normal >=60 [facility] Comment on above: Performed By: #### C BC #### [facility] [address] [place] [address] Dr. Judd Andrade Globulin (S) [Mass/Vol] 3.8 g/dL Normal [facility] Comment on above: Performed By: #### C BC #### [facility] [address] [address] [address] Judd Andrade Glucose [Mass/Vol] 103 mg/dL Normal 74-106 [facility] Comment on above: Performed By: #### C BC #### [facility] [address] [address] [address] Judd Andrade Potassium [Moles/Vol] 3.6 mmol/L Normal 3.5-5.1 [facility] Comment on above: Performed By: #### C BC #### [facility] [address] [address] [address] Judd Andrade Protein [Mass/Vol] 7.7 g/dL Normal 6.4-8.2 [facility] Comment on above: Performed By: #### C BC #### [facility] [address] [address] [address] Judd Andrade Sodium [Moles/Vol] 140 mmol/L Normal 136-145 [facility] Comment on above: Performed By: #### C BC #### [facility] [address] [address] [address] Judd Andrade Urea nitrogen [Mass/Vol] 11.0 mg/dL Normal 7.0-18.0 [facility] Comment on above: Performed By: #### C BC #### [facility] [address] [address] [address] Judd Andrade Urea nitrogen/Creatinine [Mass ratio] 15.9 mg/mg Normal [facility] Comment on above: Performed By: #### C BC #### [facility] [address] [address] [address] Judd Andrade PROTIMEon 12-23-2021 INR Coag (PPP) [Relative time] 1.04 {INR} Normal [facility] Comment on above: Performed By: #### H STROPN, CMP #### [facility] [address] [address] [address] Judd Andrade INR GUIDELINES SEE BELOW Normal [facility] Comment on above: Result Comment: PRIETO RED INR: 2.0 - 3.0 CONDITIONS NOT LISTED BELOW 2.5 - 3.5 FOR PROSTHETIC HEART VALVE REPLACEMENT 2.5 - 3.5 RECURRENT THROMBOSIS Performed By: #### H DEB, CMP #### [facility] [address] [place] [address] Dr. Judd Andrade PT Coag (PPP) [Time] 11.2 s Normal 9.0-11.6 [facility] Comment on above: Performed By: #### H DEB, CMP #### [facility] [address] [place] [address] Dr. Judd Andrade PTTon 12-23-2021 aPTT Coag (Bld) [Time] 31.5 s Normal 22.3-36.2 [facility] Comment on above: Performed By: #### H DEB, CMP #### [facility] [address] [place] [address] Dr. Judd Andrade ER URINE PROFILEon Bilirubin Ql (U) Negative Normal NEGATIVE [facility] Comment on above: Performed By: #### H DEB, CMP #### [facility] [address] [place] [address] Dr. Judd Andrade Clarity (U) CLEAR Normal CLEAR [facility] Comment on above: Performed By: #### H DEB, CMP #### [facility] [address] [place] [address] Dr. Judd Andrade Color (U) LT. YELLOW Normal YELLOW [facility] Comment on above: Performed By: #### H DEB, CMP #### [facility] [address] [place] [address] Dr. Judd Andrade ERUSUZY A micrscopic examination will be performed if indicated. Normal [facility] Comment on above: Performed By: #### H DEB, CMP #### [facility] [address] [place] [address] Dr. Judd Andrade Glucose Ql (U) Negative Normal NEGATIVE [facility] Comment on above: Performed By: #### H DEB, CMP #### [facility] [address] [place] [address] Dr. Judd Andrade Hemoglobin Ql (U) TRACE-INTACT Abnormal NEGATIVE [facility] Comment on above: Performed By: #### H STROPN, CMP #### [facility] [address] [address] [address] Judd Andrade Ketones Ql (U) Negative Normal NEGATIVE [facility] Comment on above: Performed By: #### H STROPN, CMP #### [facility] [address] [address] [address] Judd Andrade LEUKOCYTES Negative Normal NEGATIVE [facility] Comment on above: Performed By: #### H STROPN, CMP #### [facility] [address] [address] [address] Judd Andrade Nitrite Ql (U) Negative Normal NEGATIVE [facility] Comment on above: Performed By: #### H STROPN, CMP #### [facility] [address] [place] [address] Dr. Judd Andrade pH (U) 6.0 [pH] Normal 5-9 [facility] Comment on above: Performed By: #### H STROPN, CMP #### [facility] [address] [place] [address] Dr. Judd Andrade SPEC GRAVITY 1.005 Normal 1.005-<=1.025 [facility] Comment on above: Performed By: #### H STROPN, CMP #### [facility] [address] [place] [address] Dr. Judd Andrade UA PROTEIN Negative Normal NEGATIVE/ TRACE [facility] Comment on above: Performed By: #### H STROPN, CMP #### [facility] [address] [place] [address] Dr. Judd Andrade UR MICRO IND INDICATED Normal [facility] Comment on above: Performed By: #### H STROPN, CMP #### [facility] [address] [place] [address] Dr. Judd Andrade Urobilinogen Qn (U) 0.2 {Carol'U}/dL Normal 0.2 - 1. 0 [facility] Comment on above: Performed By: #### H STROPN, CMP #### [facility] [address] [place] [address] Dr. Judd Andrade URINE MICROSCOPIC ONLYon BACTERIA NONE SEEN Normal NONE SEEN [facility] Comment on above: Performed By: #### H STROPN, CMP #### [facility] [address] [place] [address] Dr. Judd Andrade Bacteria identified Cx Nom (U) NOT INDICATED Normal [facility] Comment on above: Performed By: #### H STROPN, CMP #### [facility] [address] [place] [address] Dr. Judd Andrade CAST NONE SEEN Normal NONE SEEN [facility] Comment on above: Performed By: #### H STROPN, CMP #### [facility] [address] [place] [address] Dr. Judd Andrade Crystals LM Nom (Urine sed) NONE SEEN Normal NONE SEEN [facility] Comment on above: Performed By: #### H STROPN, CMP #### [facility] [address] [place] [address] Dr. Judd Andrade Epithelial cells LM Ql (Urine sed) FEW Abnormal NONE SEEN /RARE [facility] Comment on above: Performed By: #### H STROPN, CMP #### [facility] [address] [place] [address] Dr. Judd Andrade MUCOUS NONE SEEN Normal NONE SEEN [facility] Comment on above: Performed By: #### H STROPN, CMP #### [facility] [address] [place] [address] Dr. Judd Andrade RBC 0-2 Normal 0-2 [facility] Comment on above: Performed By: #### H STROPN, CMP #### [facility] [address] [place] [address] Dr. Judd Andrade WBC NONE SEEN Normal NONE SEEN [facility] Comment on above: Performed By: #### H STROPN, CMP #### [facility] [address] [place] [address] Dr. Judd Andrade Vital Signs Date Time Vital Sign Value Performing Clinician Faci lity 12-30-2023 13:48-0400 Blood Pressure Location Bessie Galea [facility] 12-30-2023 13:48-0400 Diastolic blood pressure 82 mm[Hg] Bessie Galea [facility] 12-30-2023 13:48-0400 Heart rate 80 /min Bessie Galea [facility] 12-30-2023 13:48-0400 Respiratory rate 16 /min Bessie Galea [facility] 12-30-2023 13:48-0400 Systolic blood pressure 117 mm[Hg] Bessie Galea [facility] Encounters Encounter Date Encounter Type Care Provider Facility Start: 01-03-2024 End: 01-03-2024 ambulatory KATIE JUANJOSE Not Available Start: 12-30-2023 End: 12-30-2023 ambulatory Bessie Gong Facility:[facility] Start: 12-30-2023 End: 12-30-2023 Patient encounter procedure Bessie Ly Alexisea [facility] Start: 12-21-2023 End: 12-21-2023 ambulatory NATALIE TINSLEY Not Available Start: 10-04-2023 End: 10-04-2023 ambulatory KATIE JUANJOSE Not Available Start: 06-30-2023 End: 06-30-2023 ambulatory KATIE JUANJOSE Not Available Start: 06-24-2023 End: 06-24-2023 ambulatory VALE HI Not Available Start: 03-23-2023 End: 03-23-2023 ambulatory KATIE JUANJOSE Not Available Start: 09-24-[address] [facility] Start: 09-22-2022 End: 09-23-2022 ambulatory [...] response examination DR JOHN PORTER . [facility] Start: 06-26-2022 End: 06-27-[address] [...] vaccine, adsorbed Bessie Galea [facility] Payers Date Payer Category Payer Unknown [id number] 1965 Unknown [id number] 2.16.84 0.1.021597.3.579.2.593 1965 Unknown [id number] 2.16.84 0.1.071680.3.579.2.593 1965 Unknown [id number] 2.16.84 0.1.651257.3.579.2.593 1965 Unknown [id number] 2.16.84 0.1.565276.3.579.2.593 1965 Unknown [id number] 2.16.84 0.1.614092.3.579.2.593 1965 Unknown [id number] 2.16.84 0.1.101393.3.579.2.593 1965 Unknown [id number] 2.16.84 0.1.652375.3.579.2.593 1965 Unknown [id number] 2.16.84 0.1.207878.3.579.2.593 1965 Unknown [id number] 2.16.84 0.1.803242.3.579.2.593 1965 Unknown [id number] 2.16.84 0.1.407806.3.579.2.593 1965 Unknown [id number] 2.16.84 0.1.148373.3.579.2.593 1965 Unknown [id number] 2.16.84 0.1.632970.3.579.2.593 1965 Unknown [id number] 2.16.84 0.1.323920.3.579.2.593 1965 Unknown [id number] 2.16.84 0.1.707415.3.579.2.593 1965 Unknown [id number] 2.16.84 0.1.569245.3.579.2.593 1965 Unknown [id number] 2.16.84 0.1.516698.3.579.2.593 1965 Unknown [id number] 2.16.84 0.1.321323.3.579.2.593 1965 Unknown [id number] 2.16.84 0.1.266760.3.579.2.593 1965 Unknown [id number] 2.16.84 0.1.886872.3.579.2.593 1965 Unknown [id number] 2.16.84 0.1.609866.3.579.2.593 1965 Unknown [id number] 2.16.84 0.1.476274.3.579.2.593 1965 Unknown [id number] 2.16.84 0.1.719706.3.579.2.593 1965 Unknown [id number] 2.16.84 0.1.502892.3.579.2.593 1965 Unknown [id number] 2.16.84 0.1.573543.3.579.2.593 1965 Unknown [id number] 2.16.8 40.1.308635.3.579.2.727 1965 Unknown [id number] 2.16.84 0.1.769725.3.579.2.9 1965 Unknown [id number] 2.16.84 0.1.013202.3.579.2.1258 1965 Unknown [id number] 2.16.84 0.1.486098.3.579.2.1258 1965 Unknown [id number] 2.16.84 0.1.485443.3.579.2.1258 1965 Unknown [id number] 2.16.84 0.1.610307.3.579.2.9 1965 Unknown [id number] 2.16.840 .1.435559.3.579.2.9 1959 Self-pay [id number] 1959 Unknown [id number] 1959 Unknown [id number] Social History Date Type Detail Facility Start: 12-30-2023 Tobacco smoking status Ex-smoker (fi nding) [facility] Tobacco smoking status Never [facility] Sex Assigned At Female [facility] Functional Status Date Assessment Result Facility 12-30-2023 Functional Status N/A [facility] Hospital Discharge instructions 12-30-2023 Note Date & [...] provider. Document Revised: 08/21/2021 Document Reviewed: 08/21/2021 [employer] Patient Education 2023 [employer]. Follow Up Care 12/02/2023 13:46:26 With:Farideh BARRERA, Bessie Modi, URL Address: When: Unknown Comments:pending imaging and after PFPT [facility] Clinical Note 12-30-2023 Note Date & Type [...] Reviewed: 08/21/2021 Else[employer] Patient Education ? 2023 [employer]. [facility] Evaluation + Plan note Note Date & Type Note Facility Evaluation + Plan note No data available for this section [facility] Progress note Note Date & Type Note Facility Progress note No data available for this section [facility] Summary Purpose Family History No Family History Records Found No data available for this section No Family History Records FoundNo Family History Records Found Advance Directives No Advanced Directives Records FoundNo Advanced Directives Records FoundNo Advanced Directives Records Found Additional Source Comments INFORMATION SOURCE (unrecogn ized section and content) DATE CREATED AUTHOR [facility]/02/2022 [facility] DATE CREATED AUTHOR AUTHOR'S ORGANIZ ATION 01/01/2024 [facility] DATE CREATED AUTHOR AUTHOR'S ORGANIZ ATION 01/04/2024 [facility] EPIC Patient Care team informatio n (unrecognized section and content) Personnel Name: John Porter MD Address: Address: [address] [place] [address] FOR RECORDS PERTAINING TO PATIENTS WHO ARE [...] BE BASED ON THE PRIMARY CLINICAL RECORDS. [employer] provides no warranty or guarantee of the accuracy or completeness of information in this document.
[2024-01-06 13:17] LABS: Bilirubin Urine NEGATIVE (NEGATIVE); Blood Urine NEGATIVE (NEGATIVE); Clarity Urine CLEAR (CLEAR); Color Urine LT. YELLOW (YELLOW); Glucose Urine UA NEGATIVE (NEGATIVE); Ketones Urine NEGATIVE (NEGATIVE); Leukocyte Esterase Urine NEGATIVE (NEGATIVE); Nitrite Urine NEGATIVE (NEGATIVE); Protein Urine NEGATIVE (NEG/TRACE); Specific Gravity Urine <=1.005 (1.005-1.025); Urobilinogen Urine 0.2 EU/dL (0.2-1.0)
[2024-01-06 13:26] LABS: Bacteria Urine NONE SEEN #/HPF (NONE SEEN); Mucus Urine NONE SEEN (NONE SEEN); RBC Urine NONE SEEN #/HPF (0-2); Squamous Epithelial Cell Urine FEW #/LPF (NONE/RARE); WBC Urine NONE SEEN #/HPF (NONE SEEN)
[2024-01-06 13:27] LABS: Urine Culture Indicated ALREADY ORDERED
== END 2024-01-06 12:16 | disposition home or self-care (01) ==
LOC: LAB 12:16
PROVIDERS: PCP Family Medicine; Visit Provider Family Medicine
DX: I10 Essential (primary) hypertension (principal)
CPT/HCPCS: 81001; 87086

== ENCOUNTER 2024-01-07 07:07 | Day surgery (SDC) | payer OTHER, SELFPAY ==
[2024-01-07] VITALS (27 sets, daily range): BP systolic 94–157; BP diastolic 63–85; PULSE 56–98; TEMP 36.9; O2SAT 96–100; BMI 28.4
--- OUTSIDE RECORDS SUMMARY | 2024-01-07 07:09 | XMS_ITS | CCD ---
Author Organization [facility] CliniSypr Care Team Providers Care Regulatory Affairs Manager Name Role Phone GERMAN ., DR LOPEZ [...] Unavailable JUANJOSE ., DR WILSON Attending Unavailable CHILDS, DR ELLYN Dougherty Consulting Unavailable HOY ., [...] LOPEZ Primary Care Unavailable HOY ., DR LPOEZ Admitting Unavailable LINDA RHODES Consulting Unavailable John [...] Allergy Unknown (qualifier value) [facility] (2 sources) Imipramine; Translations: [imipramine] Drug Allergy Unknown (qualifier value) [facility] (2 sources) Sulfonamides (Antibiotic); Translations: [sulfa drugs] Drug allergy Unknown (qualifier value) [facility] Problems Active Problems Problem Classification Problem Date [...] 06-05-2022 Episodic Other aftercare (4 sources) Other shelter (current) drug therapy; Translations: [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 [facility] Provider Letteron 12-30-2023 Provider Letter Provider Letter December 30, 2023 [place] [address] : 1965 To Whom It May Concern, Please excuse above patient from work. Date of Illness: From: 12/30/23 To: 12/30/23 May Return to Work On: 12/31/2023 Restrictions: Comments: Patient had an appointment on 12/30/23 at [facility] Sincerely, [facility] Urology Office/Clinic Noteon 12-30-2023 Urology Office/Clinic [...] Skin: No rashes or suspicious lesions Assessment/Plan HAUL CANE BRAKEMAN referred by Dr. Porter for recurrent UTI [...] she went to an urgent care in [facility] who started her on Augmentin for UTI [...] E&M of New Patient High 60-74 Min [id number] 2. Kidney stones (N20.0: Calculus of kidney) [...] now. -K (more content not included)... Normal [facility] Comment on above: Result Comment: Elec tronically Signed By: Bessie Quiñones\.br\Date and Time Signed: 12/30/23 15:22 EDT MG MAMM DX 3D RT CADon 09-22 MG MAMM DX 3D RT CAD Patient: GEN EYAD SCARLET Meenakshi. Exam Date: 09/22/2022 : 1965 Gender:F Ordering : DR KATIE RUST . Admission #: [id number] Family : Order #: [id number] CLICK HERE TO VIEW EXAM RADIOLOGY REPORT [...] : DR KATIE RUST . Admission #: [id number] Family : Order #: [id number] CLICK HERE TO VIEW EXAM RADIOLOGY REPORT [...] by: GABO STRONG Date: 2022-08-31 08:[address] [facility] US PELVIS AND TRANSVAGon US PELVIS [...] CMP #### [facility] [address] [place] [address] Dr. Judd Andrade CBC AUTO DIFFon 07-03-2022 BASO # 0.0 103/ul Normal 0.0-0.1 [facility] Comment on above: Performed By: #### C BC #### [facility] [address] [place] [address] Dr. Judd Andrade Basophils/100 WBC (Bld) 1.1 % Normal 0.2-2.0 [facility] Comment on above: Performed By: #### C BC #### [facility] [address] [place] [address] Dr. Judd Andrade EO # 0.1 103/ul Normal 0.0-0.7 [facility] Comment on above: Performed By: #### C BC #### [facility] [address] [place] [address] Dr. Judd Andrade Eosinophils/100 WBC (Bld) 3.6 % Normal 0.9-7.0 [facility] Comment on above: Performed By: #### C BC #### [facility] [address] [place] [address] Dr. Judd Andrade Erythrocyte distribution width (RBC) [Ratio] 13.6 % Normal 11.0-15.0 [facility] Comment on above: Performed By: #### C BC #### [facility] [address] [place] [address] Dr. Judd Andrade Hematocrit (Bld) [Volume fraction] 41.8 % Normal 36.0-48.0 [facility] Comment on above: Performed By: #### C BC #### [facility] [address] [place] [address] Dr. Judd Andrade Hemoglobin (Bld) [Mass/Vol] 13.5 g/dL Normal 12.0-16.0 [facility] Comment on above: Performed By: #### C BC #### [facility] [address] [place] [address] Dr. Judd Andrade IG # 0.01 10e3/ul Normal 0.00-0.03 [facility] Comment on above: Performed By: #### C BC #### [facility] [address] [place] [address] Dr. Judd Anrdade IG % 0.3 % Normal 0.0-0.5 [facility] Comment on above: Performed By: #### C BC #### [facility] [address] [place] [address] Dr. Judd Andrade LYMPH # 1.4 103/ul Normal 1.2-3.8 [facility] Comment on above: Performed By: #### C BC #### [facility] [address] [place] [address] Dr. Judd Andrade Lymphocytes/100 WBC (Bld) 38.4 % Normal 20.5-60.0 [facility] Comment on above: Performed By: #### C BC #### [facility] [address] [place] [address] Dr. Judd Andrade MANUAL DIFF REQ NO Normal [facility] Comment on above: Performed By: #### C BC #### [facility] [address] [place] [address] Dr. Judd Andrade MCH (RBC) [Entitic mass] 28.2 pg Normal 26.7-34.0 [facility] Comment on above: Performed By: #### C BC #### [facility] [address] [place] [address] Dr. Judd Andrade MCHC (RBC) [Mass/Vol] 32.3 g/dL Normal 29.9-35.2 [facility] Comment on above: Performed By: #### C BC #### [facility] [address] [place] [address] Dr. Judd Andrade MCV (RBC) [Entitic vol] 87.4 fL Normal 81.0-99.0 [facility] Comment on above: Performed By: #### C BC #### [facility] [address] [place] [address] Dr. Judd Andrade MONO # 0.4 103/ul Normal 0.3-0.8 [facility] Comment on above: Performed By: #### C BC #### [facility] [address] [place] [address] Dr. Judd Andrade Monocytes/100 WBC (Bld) 10.4 % Normal 1.7-12.0 [facility] Comment on above: Performed By: #### C BC #### [facility] [address] [place] [address] Dr. Judd Andrade NEUT # 1.7 103/ul Normal 1.4-6.5 [facility] Comment on above: Performed By: #### C BC #### [facility] [address] [place] [address] Dr. Judd Andrade Neutrophils/100 WBC (Bld) 46.2 % Normal 43.0-75.0 [facility] Comment on above: Performed By: #### C BC #### [facility] [address] [place] [address] Dr. Judd Andrade Platelet mean volume (Bld) [Entitic vol] 9.6 fL Normal 9.5-13.5 [facility] Comment on above: Performed By: #### C BC #### [facility] [address] [place] [address] Dr. Judd Andrade PLT 246 103/ul Normal 150-450 [facility] Comment on above: Performed By: #### C BC #### [facility] [address] [place] [address] Dr. Judd Andrade RBC 4.78 106/ul Normal 4.20-5.40 [facility] Comment on above: Performed By: #### C BC #### [facility] [address] [place] [address] Dr. Judd Andrade WBC 3.7 103/ul Critically low 4.0-11.0 [facility] Comment on above: Performed By: #### C BC #### [facility] [address] [address] [address] Judd Andrade FREE THYROXINE INDEX T7on FTI 3.20 Normal 1.30-4.50 [facility] Comment on above: Performed By: #### T 7, LIPID, TSH, CMP #### [facility] [address] [place] [address] Dr. Judd Andrade T3U 36.0 % Normal 30.0-39.0 [facility] Comment on above: Performed By: #### T 7, LIPID, TSH, CMP #### [facility] [address] [place] [address] Dr. Judd Andrade T4 [Mass/Vol] 8.90 ug/dL Normal 4.80-13.90 [facility] Comment on above: Performed By: #### T 7, LIPID, TSH, CMP #### [facility] [address] [place] [address] Dr. Judd Andrade GLYCOHEMOGLOBIN A1Con 2022 ADA RECOMMENDATION SEE BELOW Normal [facility] Comment on above: Result Comment: ADA RECOMMENDED LIMIT 4.0 - 6.0 ADA THERAPEUTIC TARGET < 7.0 ACTION SUGGESTED > 7.0 Performed By: #### C BC #### [facility] [address] [place] [address] Dr. Judd Andrade Glucose [Mass/Vol] 120 mg/dL Normal [facility] Comment on above: Performed By: #### C BC #### [facility] [address] [place] [address] Dr. Judd Andrade HbA1c (Bld) [Mass fraction] 5.8 % Normal 4.5-6.2 [facility] Comment on above: Performed By: #### C BC #### [facility] [address] [place] [address] Dr. Judd Andrade IRONon 07-03-2022 Iron [Mass/Vol] 67.0 ug/dL Normal 50.0-170.0 [facility] Comment on above: Performed By: #### V ITAD, IRON #### [facility] [address] [address] [address] Judd Andrade LIPID PROFILEon 07-03-2022 CHOL-HDL RATIO NORM SEE BELOW Normal [facility] Comment on above: Result Comment: 3.3 - 4.4 LOW RISK 4.4 - 7.1 AVERAGE RISK 7.1 - 11.0 MODERATE RISK >11.0 HIGH RISK Performed By: #### T 7, LIPID, TSH, CMP #### [facility] [address] [address] [address] Judd Andrade Cholesterol [Mass/Vol] 216 mg/dL Critically high <=200 [facility] Comment on above: Performed By: #### T 7, LIPID, TSH, CMP #### [facility] [address] [address] [address] Judd Andrade Cholesterol in HDL [Mass/Vol] 87 mg/dL Critically high 40-60 [facility] Comment on above: Performed By: #### T 7, LIPID, TSH, CMP #### [facility] [address] [address] [address] Judd Andrade Cholesterol in LDL [Mass/Vol] 124.2 mg/dL Normal [facility] Comment on above: Performed By: #### T 7, LIPID, TSH, CMP #### [facility] [address] [address] [address] Judd Andrade Cholesterol.total/Ch olesterol in HDL [Mass ratio] 2.5 {ratio} Normal [facility] Comment on above: Performed By: #### T 7, LIPID, TSH, CMP #### [facility] [address] [address] [address] Judd Andrade HDL NORMAL > or = 60 mg/dl - LO W CARDIOVASCULAR RISK <40 mg/dl - HIGH CARDIOVASCULAR RISK Normal [facility] Comment on above: Performed By: #### T 7, LIPID, TSH, CMP #### [facility] [address] [address] [address] Judd Andrade LDL CALC NORMAL SEE BELOW Normal [facility] Comment on above: Result Comment: <100 mg/dl OPTIMAL 100 - 129 mg/dl NEAR OR ABOVE OPTIMAL 130 - 159 mg/dl BORDERLINE HIGH 160 - 189 mg/dl HIGH >190 mg/dl VERY HIGH Performed By: #### T 7, LIPID, TSH, CMP #### [facility] [address] [address] [address] Judd Andrade Triglyceride [Mass/Vol] 24 mg/dL Normal <=150 [facility] Comment on above: Performed By: #### T 7, LIPID, TSH, CMP #### [facility] [address] [address] [address] Judd Andrade VLDL CALC 4.8 mg/dL Normal [facility] Comment on above: Performed By: #### T 7, LIPID, TSH, CMP #### [facility] [address] [address] [address] Judd Andrade PROF 14(COMP METB)on 023 Albumin [Mass/Vol] 4.0 g/dL Normal 3.4-5.0 [facility] Comment on above: Performed By: #### T 7, LIPID, TSH, CMP #### [facility] [address] [place] [address] Dr. Judd Andrade Albumin/Globulin [Mass ratio] 1.1 {ratio} Normal [facility] Comment on above: Performed By: #### T 7, LIPID, TSH, CMP #### [facility] [address] [address] [address] Judd Andrade ALP [Catalytic activity/Vol] 78 U/L Normal 46-116 [facility] Comment on above: Performed By: #### T 7, LIPID, TSH, CMP #### [facility] [address] [place] [address] Dr. Judd Andrade ALT [Catalytic activity/Vol] 29 U/L Normal 14-59 [facility] Comment on above: Performed By: #### T 7, LIPID, TSH, CMP #### [facility] [address] [place] [address] Dr. Judd Andrade Anion gap [Moles/Vol] 5.6 mmol/L Normal [facility] Comment on above: Performed By: #### T 7, LIPID, TSH, CMP #### [facility] [address] [address] [address] Judd Andrade AST [Catalytic activity/Vol] 23 U/L Normal 15-37 [facility] Comment on above: Performed By: #### T 7, LIPID, TSH, CMP #### [facility] [address] [address] [address] Judd Andrade Bilirubin [Mass/Vol] 0.5 mg/dL Normal 0.2-1.0 [facility] Comment on above: Performed By: #### T 7, LIPID, TSH, CMP #### [facility] [address] [address] [address] Judd Andrade Calcium [Mass/Vol] 8.9 mg/dL Normal 8.5-10.1 [facility] Comment on above: Performed By: #### T 7, LIPID, TSH, CMP #### [facility] [address] [place] [address] Dr. Judd Andrade Chloride [Moles/Vol] 105 mmol/L Normal 98-107 [facility] Comment on above: Performed By: #### T 7, LIPID, TSH, CMP #### [facility] [address] [address] [address] Judd Andrade CO2 [Moles/Vol] 32.0 mmol/L Normal 21.0-32.0 [facility] Comment on above: Performed By: #### T 7, LIPID, TSH, CMP #### [facility] [address] [address] [address] Judd Andrade Creatinine [Mass/Vol] 0.52 mg/dL Critically low 0.55-1.02 [facility] Comment on above: Performed By: #### T 7, LIPID, TSH, CMP #### [facility] [address] [place] [address] Dr. Judd Andrade EGFR-AF MOROCCAN >60 Normal >=60 [facility] Comment on above: Performed By: #### T 7, LIPID, TSH, CMP #### [facility] [address] [address] [address] Judd Andrade EGFR-NON AF MOROCCAN >60 Normal >=60 [facility] Comment on above: Performed By: #### T 7, LIPID, TSH, CMP #### [facility] [address] [address] [address] Judd Andrade Globulin (S) [Mass/Vol] 3.6 g/dL Normal [facility] Comment on above: Performed By: #### T 7, LIPID, TSH, CMP #### [facility] [address] [address] [address] Judd Andrade Glucose [Mass/Vol] 89 mg/dL Normal 74-106 [facility] Comment on above: Performed By: #### T 7, LIPID, TSH, CMP #### [facility] [address] [place] [address] Dr. Judd Andrade Potassium [Moles/Vol] 4.2 mmol/L Normal 3.5-5.1 [facility] Comment on above: Performed By: #### T 7, LIPID, TSH, CMP #### [facility] [address] [address] [address] Judd Andrade Protein [Mass/Vol] 7.6 g/dL Normal 6.4-8.2 [facility] Comment on above: Performed By: #### T 7, LIPID, TSH, CMP #### [facility] [address] [place] [address] Dr. Judd Andrade Sodium [Moles/Vol] 139 mmol/L Normal 136-145 [facility] Comment on above: Performed By: #### T 7, LIPID, TSH, CMP #### [facility] [address] [place] [address] Dr. Judd Andrade Urea nitrogen [Mass/Vol] 11.0 mg/dL Normal 7.0-18.0 [facility] Comment on above: Performed By: #### T 7, LIPID, TSH, CMP #### [facility] [address] [place] [address] Dr. Judd Andrade Urea nitrogen/Creatinine [Mass ratio] 21.2 mg/mg Normal [facility] Comment on above: Performed By: #### T 7, LIPID, TSH, CMP #### [facility] [address] [place] [address] Dr. Judd Andrade TSHon 07-03-2022 TSH 1.037 uIU/mL Normal 0.358-3.740 [facility] Comment on above: Performed By: #### T 7, LIPID, TSH, CMP #### [facility] [address] [place] [address] Dr. Judd Andrade VITAMIN D 25 OHon 07-03-2022 VIT D 25-OH 32.8 ng/mL Normal [facility] Comment on above: Performed By: #### V ITAD, IRON #### [facility] [address] [place] [address] Dr. Judd Andrade VIT D RANGES SEE BELOW Normal [facility] Comment on above: Result Comment: <20 ng/mL Vit D deficient 20 - <30 ng/mL Vit D insufficient 30 - 100 ng/mL Vit D sufficient >100 ng/mL Potential Toxicity Performed By: #### V ITAD, IRON #### [facility] [address] [place] [address] Dr. Judd Andrade BORDETELLA PERTUSSIS AB IGGo n 06-30-2022 B pertussis IgG Ab 3.88 index Invalid Interpretation Code 0.00-0.94 [facility] Comment on above: Result Comment: Clie nt Requested Flag Negative <0.95 Equivocal 0.95 - 1.04 Positive >1.04 Performed By: #### C BC #### [facility] [address] [place] [address] Dr. Judd Andrade BORDETELLA PERTUSSIS AB IGMo n 06-30-2022 B pertussis IgM Ab <1.0 Normal 0.0-0.9 [facility] Comment on above: Result Comment: Nega tive <1.0 Borderline 1.0 - 1.1 Positive >1.1 Performed By: #### H STROPN, CMP #### [facility] [address] [place] [address] Dr. Judd Andrade [id number] 2022 Clalw-4-Zvefnfttryr, Serum 158 mg/dL Normal 101-187 [facility] Comment on above: Performed By: #### C BC #### [facility] [address] [place] [address] Dr. Judd Andrade CBC AUTO DIFFon 06-03-2022 BASO # 0.0 103/ul Normal 0.0-0.1 [facility] Comment on above: Performed By: #### H STROPN, CMP #### [facility] [address] [place] [address] Dr. Judd Andrade Basophils/100 WBC (Bld) 0.6 % Normal 0.2-2.0 [facility] Comment on above: Performed By: #### H STROPN, CMP #### [facility] [address] [place] [address] Dr. Judd Andrade EO # 0.0 103/ul Normal 0.0-0.7 [facility] Comment on above: Performed By: #### H STROPN, CMP #### [facility] [address] [place] [address] Dr. Judd Andrade Eosinophils/100 WBC (Bld) 0.6 % Critically low 0.9-7.0 [facility] Comment on above: Performed By: #### H STROPN, CMP #### [facility] [address] [place] [address] Dr. Judd Andrade Erythrocyte distribution width (RBC) [Ratio] 13.5 % Normal 11.0-15.0 [facility] Comment on above: Performed By: #### H STROPN, CMP #### [facility] [address] [place] [address] Dr. Judd Andrade Hematocrit (Bld) [Volume fraction] 42.4 % Normal 36.0-48.0 [facility] Comment on above: Performed By: #### H STROPN, CMP #### [facility] [address] [place] [address] Dr. Judd Andrade Hemoglobin (Bld) [Mass/Vol] 13.4 g/dL Normal 12.0-16.0 [facility] Comment on above: Performed By: #### H STROPN, CMP #### [facility] [address] [place] [address] Dr. Judd Andrade IG # 0.01 10e3/ul Normal 0.00-0.03 [facility] Comment on above: Performed By: #### H DEB, CMP #### [facility] [address] [address] [address] Judd Andrade IG % 0.2 % Normal 0.0-0.5 [facility] Comment on above: Performed By: #### H DEB, CMP #### [facility] [address] [address] [address] Judd Andrade LYMPH # 1.1 103/ul Critically low 1.2-3.8 [facility] Comment on above: Performed By: #### H DEB, CMP #### [facility] [address] [place] [address] Dr. Judd Andrade Lymphocytes/100 WBC (Bld) 23.5 % Normal 20.5-60.0 [facility] Comment on above: Performed By: #### H DEB, CMP #### [facility] [address] [place] [address] Dr. Judd Andrade MANUAL DIFF REQ NO Normal [facility] Comment on above: Performed By: #### H DEB, CMP #### [facility] [address] [place] [address] Dr. Judd Andrade MCH (RBC) [Entitic mass] 28.9 pg Normal 26.7-34.0 [facility] Comment on above: Performed By: #### H DEB, CMP #### [facility] [address] [place] [address] Dr. Judd Andrade MCHC (RBC) [Mass/Vol] 31.6 g/dL Normal 29.9-35.2 [facility] Comment on above: Performed By: #### H DEB, CMP #### [facility] [address] [place] [address] Dr. Judd Andrade MCV (RBC) [Entitic vol] 91.6 fL Normal 81.0-99.0 [facility] Comment on above: Performed By: #### H TERAPN, CMP #### [facility] [address] [address] [address] Judd Andrade MONO # 0.8 103/ul Normal 0.3-0.8 [facility] Comment on above: Performed By: #### H STROPN, CMP #### [facility] [address] [place] [address] Dr. Judd Andrade Monocytes/100 WBC (Bld) 16.5 % Critically high 1.7-12.0 [facility] Comment on above: Performed By: #### H STROPN, CMP #### [facility] [address] [place] [address] Dr. Judd Andrade NEUT # 2.7 103/ul Normal 1.4-6.5 [facility] Comment on above: Performed By: #### H STROPN, CMP #### [facility] [address] [place] [address] Dr. Judd Andrade Neutrophils/100 WBC (Bld) 58.6 % Normal 43.0-75.0 [facility] Comment on above: Performed By: #### H STROPN, CMP #### [facility] [address] [place] [address] Dr. Judd Andrade Platelet mean volume (Bld) [Entitic vol] 9.8 fL Normal 9.5-13.5 [facility] Comment on above: Performed By: #### H STROPN, CMP #### [facility] [address] [place] [address] Dr. Judd Andrade PLT 252 103/ul Normal 150-450 [facility] Comment on above: Performed By: #### H STROPN, CMP #### [facility] [address] [place] [address] Dr. Judd Andrade RBC 4.63 106/ul Normal 4.20-5.40 [facility] Comment on above: Performed By: #### H STROPN, CMP #### [facility] [address] [place] [address] Dr. Judd Andrade WBC 4.7 103/ul Normal 4.0-11.0 [facility] Comment on above: Performed By: #### H STROPN, CMP #### [facility] [address] [address] [address] Judd Andrade PROF 14(COMP METB)on 023 Albumin [Mass/Vol] 4.0 g/dL Normal 3.4-5.0 [facility] Comment on above: Performed By: #### H DEB, CMP #### [facility] [address] [address] [address] Judd Andrade Albumin/Globulin [Mass ratio] 1.0 {ratio} Normal [facility] Comment on above: Performed By: #### H DEB, CMP #### [facility] [address] [address] [address] Judd Andrade ALP [Catalytic activity/Vol] 77 U/L Normal 46-116 [facility] Comment on above: Performed By: #### H DEB, CMP #### [facility] [address] [place] [address] Dr. Judd Andrade ALT [Catalytic activity/Vol] 33 U/L Normal 14-59 [facility] Comment on above: Performed By: #### H DEB, CMP #### [facility] [address] [place] [address] Dr. Judd Andrade Anion gap [Moles/Vol] 8.0 mmol/L Normal [facility] Comment on above: Performed By: #### H DEB, CMP #### [facility] [address] [place] [address] Dr. Judd Andrade AST [Catalytic activity/Vol] 28 U/L Normal 15-37 [facility] Comment on above: Performed By: #### H TERAPN, CMP #### [facility] [address] [address] [address] Judd Andrade Bilirubin [Mass/Vol] 0.6 mg/dL Normal 0.2-1.0 [facility] Comment on above: Performed By: #### H STROPN, CMP #### [facility] [address] [address] [address] Judd Andrade Calcium [Mass/Vol] 9.3 mg/dL Normal 8.5-10.1 [facility] Comment on above: Performed By: #### H STROPN, CMP #### [facility] [address] [address] [address] Judd Andrade Chloride [Moles/Vol] 103 mmol/L Normal 98-107 [facility] Comment on above: Performed By: #### H STROPN, CMP #### [facility] [address] [address] [address] Judd Andrade CO2 [Moles/Vol] 33.6 mmol/L Critically high 21.0-32.0 [facility] Comment on above: Performed By: #### H STROPN, CMP #### [facility] [address] [address] [address] Judd Andrade Creatinine [Mass/Vol] 0.59 mg/dL Normal 0.55-1.02 [facility] Comment on above: Performed By: #### H STROPN, CMP #### [facility] [address] [address] [address] Judd Andrade EGFR-AF MOROCCAN >60 Normal >=60 [facility] Comment on above: Performed By: #### H STROPN, CMP #### [facility] [address] [address] [address] Judd Andrade EGFR-NON AF MOROCCAN >60 Normal >=60 [facility] Comment on above: Performed By: #### H STROPN, CMP #### [facility] [address] [address] [address] Judd Andrade Globulin (S) [Mass/Vol] 4.0 g/dL Normal [facility] Comment on above: Performed By: #### H STROPN, CMP #### [facility] [address] [address] [address] Judd Andrade Glucose [Mass/Vol] 130 mg/dL Critically high 74-106 [facility] Comment on above: Performed By: #### H STROPN, CMP #### [facility] [address] [address] [address] Judd Andrade Potassium [Moles/Vol] 3.6 mmol/L Normal 3.5-5.1 [facility] Comment on above: Performed By: #### H STROPN, CMP #### [facility] [address] [address] [address] Judd Andrade Protein [Mass/Vol] 8.0 g/dL Normal 6.4-8.2 [facility] Comment on above: Performed By: #### H STROPN, CMP #### [facility] [address] [address] [address] Judd Andrade Sodium [Moles/Vol] 141 mmol/L Normal 136-145 [facility] Comment on above: Performed By: #### H STROPN, CMP #### [facility] [address] [address] [address] Judd Andrade Urea nitrogen [Mass/Vol] 8.0 mg/dL Normal 7.0-18.0 [facility] Comment on above: Performed By: #### H STROPN, CMP #### [facility] [address] [address] [address] Judd Andrade Urea nitrogen/Creatinine [Mass ratio] 13.6 mg/mg Normal [facility] Comment on above: Performed By: #### H STROPN, CMP #### [facility] [address] [address] [address] Judd Andrade TROPONIN, HIGH SENSITIVITYon 06-03-2022 HSTROP <4.0 Normal 4.0-51.3 [facility] Comment on above: Result Comment: CUT- OFF POINTS HAVE BEEN ESTABLISHED BASED ON THE FOURTH UNIVERSAL DEFINITIONS OF MYOCARDIAL INFARCTION. THE UPPER REFERENCE LIMIT (URL) OF TROPONIN, DEFINED THE 99TH PERCENTILE OF cTnI DISTRIBUTION IN A REFERENCE POPULATION, HAS BEEN CONFIRMED THE DECISION THRESHOLD FOR MA DIAGNOSIS. Performed By: #### H STROPN, CMP #### [facility] [address] [address] [address] Judd Andrade XR CHEST 2 Von [...] for this test is supported by the [employer] of Health and Human Service's (HHS's) declaration [...] CMP #### [facility] [address] [place] [address] Dr. Judd Andrade INFLUENZA A AND B AGon 06-02 [facility] SEE BELOW Normal [facility] Comment on above: Result Comment: Nega tive for Flu A protein angiten. Infection due to Flu A cannot be ruled out. Flu A angiten in the sample may be below the detection limit of the test. Performed By: #### H DEB, CMP #### [facility] [address] [place] [address] Dr. Judd Andrade [facility] SEE BELOW Normal [facility] Comment on above: Result Comment: Nega tive for Flu B protein antigen. Infection due to Flu B cannot be ruled out. Flu B antigen in the sample may be below the detection limit of the test. Performed By: #### H STROPN, CMP #### [facility] [address] [address] [address] Judd Andrade INFLUENZA A AG Negative Normal NEGATIVE SEE COMMENT [facility] Comment on above: Performed By: #### H STROPN, CMP #### [facility] [address] [address] [address] Judd Andrade INFLUENZA B AG Negative Normal NEGATIVE SEE COMMENT [facility] Comment on above: Performed By: #### H STROPN, CMP #### [facility] [address] [place], [place] [address] Dr. Jud[address] US ST HEAD_NECKon 02-11-2022 [...] : DR JOHN PORTER . Admission #: [id number] Family : Order #: [id number] CLICK HERE TO VIEW EXAM RADIOLOGY REPORT [...] 12-30-2021 BASO # 0.0 103/ul Normal 0.0-0.1 [facility] Comment on above: Performed By: #### C BC #### [facility] [address] [address] [address] Judd Andrade Basophils/100 WBC (Bld) 0.6 % Normal 0.2-2.0 [facility] Comment on above: Performed By: #### C BC #### [facility] [address] [address] [address] Judd Andrade EO # 0.1 103/ul Normal 0.0-0.7 [facility] Comment on above: Performed By: #### C BC #### [facility] [address] [address] [address] Judd Andrade Eosinophils/100 WBC (Bld) 2.1 % Normal 0.9-7.0 [facility] Comment on above: Performed By: #### C BC #### [facility] [address] [place] [address] Dr. Judd Andrade Erythrocyte distribution width (RBC) [Ratio] 13.0 % Normal 11.0-15.0 [facility] Comment on above: Performed By: #### C BC #### [facility] [address] [place] [address] Dr. Judd Andrade Hematocrit (Bld) [Volume fraction] 41.9 % Normal 36.0-48.0 [facility] Comment on above: Performed By: #### C BC #### [facility] [address] [place] [address] Dr. Judd Andrade Hemoglobin (Bld) [Mass/Vol] 13.7 g/dL Normal 12.0-16.0 [facility] Comment on above: Performed By: #### C BC #### [facility] [address] [place] [address] Dr. Judd Andrade IG # 0.03 10e3/ul Normal 0.00-0.03 [facility] Comment on above: Performed By: #### C BC #### [facility] [address] [place] [address] Dr. Judd Andrade IG % 0.6 % Critically high 0.0-0.5 [facility] [place] [facility] Comment on above: Performed By: #### C BC #### [facility] [address] [place] [address] Dr. Judd Andrade LYMPH # 1.9 103/ul Normal 1.2-3.8 [facility] Comment on above: Performed By: #### C BC #### [facility] [address] [place] [address] Dr. Judd Andrade Lymphocytes/100 WBC (Bld) 34.5 % Normal 20.5-60.0 [facility] Comment on above: Performed By: #### C BC #### [facility] [address] [place] [address] Dr. Judd Andrade MANUAL DIFF REQ NO Normal [facility] [place] [facility] Comment on above: Performed By: #### C BC #### [facility] [address] [place] [address] Dr. Jdud Andrade MCH (RBC) [Entitic mass] 28.5 pg Normal 26.7-34.0 [facility] Comment on above: Performed By: #### C BC #### [facility] [address] [place] [address] Dr. Judd Andrade MCHC (RBC) [Mass/Vol] 32.7 g/dL Normal 29.9-35.2 [facility] Comment on above: Performed By: #### C BC #### [facility] [address] [place] [address] Dr. Judd Andrade MCV (RBC) [Entitic vol] 87.1 fL Normal 81.0-99.0 [facility] Comment on above: Performed By: #### C BC #### [facility] [address] [place] [address] Dr. Judd Andrade MONO # 0.6 103/ul Normal 0.3-0.8 [facility] Comment on above: Performed By: #### C BC #### [facility] [address] [place] [address] Dr. Judd Andrade Monocytes/100 WBC (Bld) 10.4 % Normal 1.7-12.0 [facility] Comment on above: Performed By: #### C BC #### [facility] [address] [place] [address] Dr. Judd Andrade NEUT # 2.8 103/ul Normal 1.4-6.5 [facility] Comment on above: Performed By: #### C BC #### [facility] [address] [place] [address] Dr. Judd Andrade Neutrophils/100 WBC (Bld) 51.8 % Normal 43.0-75.0 [facility] Comment on above: Performed By: #### C BC #### [facility] [address] [place] [address] Dr. Judd Andrade Platelet mean volume (Bld) [Entitic vol] 10.5 fL Normal 9.5-13.5 [facility] Comment on above: Performed By: #### C BC #### [facility] [address] [place] [address] Dr. Judd Andrade PLT 270 103/ul Normal 150-450 [facility] Comment on above: Performed By: #### C BC #### [facility] [address] [place] [address] Dr. Judd Andrade RBC 4.81 106/ul Normal 4.20-5.40 [facility] Comment on above: Performed By: #### C BC #### [facility] [address] [place] [address] Dr. Judd Andrade WBC 5.4 103/ul Normal 4.0-11.0 [facility] Comment on above: Performed By: #### C BC #### [facility] [address] [place] [address] Dr. Judd Andrade CRPon 12-30-2021 CRP [Mass/Vol] mg/L Normal <=1.0 [facility] Comment on above: Performed By: #### C BC #### [facility] [address] [place] [address] Dr. Judd Andrade PROF 14(COMP METB)on 022 Albumin [Mass/Vol] 3.9 g/dL Normal 3.4-5.0 [facility] Comment on above: Performed By: #### C BC #### [facility] [address] [place] [address] Dr. Judd Andrade Albumin/Globulin [Mass ratio] 1.0 {ratio} Normal [facility] Comment on above: Performed By: #### C BC #### [facility] [address] [place] [address] Dr. Judd Andrade ALP [Catalytic activity/Vol] 64 U/L Normal 46-116 [facility] Comment on above: Performed By: #### C BC #### [facility] [address] [place] [address] Dr. Judd Andrade ALT [Catalytic activity/Vol] 50 U/L Normal 14-59 [facility] Comment on above: Performed By: #### C BC #### [facility] [address] [place] [address] Dr. Judd Andrade Anion gap [Moles/Vol] 11.1 mmol/L Normal [facility] Comment on above: Performed By: #### C BC #### [facility] [address] [address] [address] Judd Andrade AST [Catalytic activity/Vol] 28 U/L Normal 15-37 [facility] Comment on above: Performed By: #### C BC #### [facility] [address] [address] [address] Judd Andrade Bilirubin [Mass/Vol] 0.5 mg/dL Normal 0.2-1.0 [facility] Comment on above: Performed By: #### C BC #### [facility] [address] [address] [address] Judd Andrade Calcium [Mass/Vol] 8.9 mg/dL Normal 8.5-10.1 [facility] Comment on above: Performed By: #### C BC #### [facility] [address] [address] [address] Judd Andrade Chloride [Moles/Vol] 101 mmol/L Normal 98-107 [facility] Comment on above: Performed By: #### C BC #### [facility] [address] [address] [address] Judd Andrade CO2 [Moles/Vol] 29.4 mmol/L Normal 21.0-32.0 [facility] Comment on above: Performed By: #### C BC #### [facility] [address] [address] [address] Judd Andrade Creatinine [Mass/Vol] 0.73 mg/dL Normal 0.55-1.02 [facility] Comment on above: Performed By: #### C BC #### [facility] [address] [address] [address] Judd Andrade EGFR-AF MOROCCAN >60 Normal >=60 [facility] Comment on above: Performed By: #### C BC #### [facility] [address] [address] [address] Judd Andrade EGFR-NON AF MOROCCAN >60 Normal >=60 [facility] Comment on above: Performed By: #### C BC #### [facility] [address] [address] [address] Judd Andrade Globulin (S) [Mass/Vol] 3.8 g/dL Normal [facility] Comment on above: Performed By: #### C BC #### [facility] [address] [address] [address] Judd Andrade Glucose [Mass/Vol] 139 mg/dL Critically high 74-106 [facility] Comment on above: Performed By: #### C BC #### [facility] [address] [address] [address] Judd Andrade Potassium [Moles/Vol] 3.5 mmol/L Normal 3.5-5.1 [facility] Comment on above: Performed By: #### C BC #### [facility] [address] [address] [address] Judd Andrade Protein [Mass/Vol] 7.7 g/dL Normal 6.4-8.2 [facility] Comment on above: Performed By: #### C BC #### [facility] [address] [address] [address] Judd Andrade Sodium [Moles/Vol] 138 mmol/L Normal 136-145 [facility] Comment on above: Performed By: #### C BC #### [facility] [address] [address] [address] Judd Andrade Urea nitrogen [Mass/Vol] 12.0 mg/dL Normal 7.0-18.0 [facility] Comment on above: Performed By: #### C BC #### [facility] [address] [address] [address] Judd Andrade Urea nitrogen/Creatinine [Mass ratio] 16.4 mg/mg Normal [facility] Comment on above: Performed By: #### C BC #### [facility] [address] [address] [address] Judd Andrade XR CHEST 2 Von [...] BC #### [facility] [address] [place] [address] Dr. Judd Andrade CBC AUTO DIFFon 12-23-2021 BASO # 0.0 103/ul Normal 0.0-0.1 [facility] Comment on above: Performed By: #### H TERAPN, CMP #### [facility] [address] [place] [address] Dr. Judd Andrade Basophils/100 WBC (Bld) 0.7 % Normal 0.2-2.0 [facility] Comment on above: Performed By: #### H TERAPN, CMP #### [facility] [address] [place] [address] Dr. Judd Andrade EO # 0.0 103/ul Normal 0.0-0.7 [facility] Comment on above: Performed By: #### H STROPN, CMP #### [facility] [address] [place] [address] Dr. Judd Andrade Eosinophils/100 WBC (Bld) 0.0 % Critically low 0.9-7.0 [facility] Comment on above: Performed By: #### H STROPN, CMP #### [facility] [address] [place] [address] Dr. Judd Andrade Erythrocyte distribution width (RBC) [Ratio] 13.2 % Normal 11.0-15.0 [facility] Comment on above: Performed By: #### H TERAPN, CMP #### [facility] [address] [place] [address] Dr. Judd Andrade Hematocrit (Bld) [Volume fraction] 42.1 % Normal 36.0-48.0 [facility] Comment on above: Performed By: #### H STROPN, CMP #### [facility] [address] [address] [address] Judd Andrade Hemoglobin (Bld) [Mass/Vol] 13.7 g/dL Normal 12.0-16.0 [facility] Comment on above: Performed By: #### H STROPN, CMP #### [facility] [address] [address] [address] Judd Andrade IG # 0.01 10e3/ul Normal 0.00-0.03 [facility] Comment on above: Performed By: #### H STROPN, CMP #### [facility] [address] [address] [address] Judd Andrade IG % 0.3 % Normal 0.0-0.5 [facility] Comment on above: Performed By: #### H STROPN, CMP #### [facility] [address] [place] [address] Dr. Judd Andrade LYMPH # 0.7 103/ul Critically low 1.2-3.8 [facility] Comment on above: Performed By: #### H STROPN, CMP #### [facility] [address] [address] [address] Judd Andrade Lymphocytes/100 WBC (Bld) 24.1 % Normal 20.5-60.0 [facility] Comment on above: Performed By: #### H STROPN, CMP #### [facility] [address] [address] [address] Judd Andrade MANUAL DIFF REQ NO Normal [facility] Comment on above: Performed By: #### H STROPN, CMP #### [facility] [address] [address] [address] Judd Andrade MCH (RBC) [Entitic mass] 28.4 pg Normal 26.7-34.0 [facility] Comment on above: Performed By: #### H STROPN, CMP #### [facility] [address] [place] [address] Dr. Judd Andrade MCHC (RBC) [Mass/Vol] 32.5 g/dL Normal 29.9-35.2 [facility] Comment on above: Performed By: #### H STROPN, CMP #### [facility] [address] [place] [address] Dr. Judd Andrade MCV (RBC) [Entitic vol] 87.2 fL Normal 81.0-99.0 [facility] Comment on above: Performed By: #### H STROPN, CMP #### [facility] [address] [place] [address] Dr. Judd Andrade MONO # 0.5 103/ul Normal 0.3-0.8 [facility] Comment on above: Performed By: #### H STROPN, CMP #### [facility] [address] [place] [address] Dr. Judd Andrade Monocytes/100 WBC (Bld) 16.9 % Critically high 1.7-12.0 [facility] Comment on above: Performed By: #### H STROPN, CMP #### [facility] [address] [place] [address] Dr. Judd Andrade NEUT # 1.8 103/ul Normal 1.4-6.5 [facility] Comment on above: Performed By: #### H STROPN, CMP #### [facility] [address] [place] [address] Dr. Judd Andrade Neutrophils/100 WBC (Bld) 58.0 % Normal 43.0-75.0 [facility] Comment on above: Performed By: #### H STROPN, CMP #### [facility] [address] [place] [address] Dr. Judd Andrade Platelet mean volume (Bld) [Entitic vol] 9.9 fL Normal 9.5-13.5 [facility] Comment on above: Performed By: #### H STROPN, CMP #### [facility] [address] [place] [address] Dr. Judd Andrade PLT 210 103/ul Normal 150-450 [facility] Comment on above: Performed By: #### H STROPN, CMP #### [facility] [address] [place] [address] Dr. Judd Andrade RBC 4.83 106/ul Normal 4.20-5.40 [facility] Comment on above: Performed By: #### H TERAPN, CMP #### [facility] [address] [place] [address] Dr. Judd Andrade WBC 3.1 103/ul Critically low 4.0-11.0 [facility] Comment on above: Performed By: #### H TERAPN, CMP #### [facility] [address] [place] [address] Dr. Judd Andrade IRONon 12-23-2021 Iron [Mass/Vol] 35.0 ug/dL Critically low 50.0-170.0 [facility] Comment on above: Performed By: #### C BC #### [facility] [address] [place] [address] Dr. Judd Andrade PROF 14(COMP METB)on Albumin [Mass/Vol] 3.9 g/dL Normal 3.4-5.0 [facility] Comment on above: Performed By: #### C BC #### [facility] [address] [place] [address] Dr. Judd Andrade Albumin/Globulin [Mass ratio] 1.0 {ratio} Normal [facility] Comment on above: Performed By: #### C BC #### [facility] [address] [place] [address] Dr. Judd Andrade ALP [Catalytic activity/Vol] 70 U/L Normal 46-116 [facility] Comment on above: Performed By: #### C BC #### [facility] [address] [place] [address] Dr. Judd Andrade ALT [Catalytic activity/Vol] 43 U/L Normal 14-59 [facility] Comment on above: Performed By: #### C BC #### [facility] [address] [place] [address] Dr. Judd Andrade Anion gap [Moles/Vol] 11.5 mmol/L Normal [facility] Comment on above: Performed By: #### C BC #### [facility] [address] [place] [address] Dr. Judd Andrade AST [Catalytic activity/Vol] 33 U/L Normal 15-37 [facility] Comment on above: Performed By: #### C BC #### [facility] [address] [place] [address] Dr. Judd Andrade Bilirubin [Mass/Vol] 0.3 mg/dL Normal 0.2-1.0 [facility] Comment on above: Performed By: #### C BC #### [facility] [address] [address] [address] Judd Andrade Calcium [Mass/Vol] 8.9 mg/dL Normal 8.5-10.1 [facility] Comment on above: Performed By: #### C BC #### [facility] [address] [place] [address] Dr. Judd Andrade Chloride [Moles/Vol] 101 mmol/L Normal 98-107 [facility] Comment on above: Performed By: #### C BC #### [facility] [address] [place] [address] Dr. Judd Andrade CO2 [Moles/Vol] 31.1 mmol/L Normal 21.0-32.0 [facility] Comment on above: Performed By: #### C BC #### [facility] [address] [place] [address] Dr. Judd Andrade Creatinine [Mass/Vol] 0.69 mg/dL Normal 0.55-1.02 [facility] Comment on above: Performed By: #### C BC #### [facility] [address] [place] [address] Dr. Judd Andrade EGFR-AF MOROCCAN >60 Normal >=60 [facility] Comment on above: Performed By: #### C BC #### [facility] [address] [place] [address] Dr. Judd Andrade EGFR-NON AF MOROCCAN >60 Normal >=60 [facility] Comment on above: Performed By: #### C BC #### [facility] [address] [place] [address] Dr. Judd Andrade Globulin (S) [Mass/Vol] 3.8 g/dL Normal [facility] Comment on above: Performed By: #### C BC #### [facility] [address] [address] [address] Judd Andrade Glucose [Mass/Vol] 103 mg/dL Normal 74-106 [facility] Comment on above: Performed By: #### C BC #### [facility] [address] [address] [address] Judd Andrade Potassium [Moles/Vol] 3.6 mmol/L Normal 3.5-5.1 [facility] Comment on above: Performed By: #### C BC #### [facility] [address] [address] [address] Judd Andrade Protein [Mass/Vol] 7.7 g/dL Normal 6.4-8.2 [facility] Comment on above: Performed By: #### C BC #### [facility] [address] [address] [address] Judd Andrade Sodium [Moles/Vol] 140 mmol/L Normal 136-145 [facility] Comment on above: Performed By: #### C BC #### [facility] [address] [address] [address] Judd Andrade Urea nitrogen [Mass/Vol] 11.0 mg/dL Normal 7.0-18.0 [facility] Comment on above: Performed By: #### C BC #### [facility] [address] [address] [address] Judd Andrade Urea nitrogen/Creatinine [Mass ratio] 15.9 mg/mg Normal [facility] Comment on above: Performed By: #### C BC #### [facility] [address] [address] [address] Judd Andrade PROTIMEon 12-23-2021 INR Coag (PPP) [Relative time] 1.04 {INR} Normal [facility] Comment on above: Performed By: #### H STROPN, CMP #### [facility] [address] [address] [address] Judd Andrade INR GUIDELINES SEE BELOW Normal [facility] Comment on above: Result Comment: PRIETO RED INR: 2.0 - 3.0 CONDITIONS NOT LISTED BELOW 2.5 - 3.5 FOR PROSTHETIC HEART VALVE REPLACEMENT 2.5 - 3.5 RECURRENT THROMBOSIS Performed By: #### H DEB, CMP #### [facility] [address] [place] [address] Dr. Judd Andrade PT Coag (PPP) [Time] 11.2 s Normal 9.0-11.6 [facility] Comment on above: Performed By: #### H DEB, CMP #### [facility] [address] [place] [address] Dr. Judd Andrade PTTon 12-23-2021 aPTT Coag (Bld) [Time] 31.5 s Normal 22.3-36.2 [facility] Comment on above: Performed By: #### H DEB, CMP #### [facility] [address] [place] [address] Dr. Judd Andrade ER URINE PROFILEon Bilirubin Ql (U) Negative Normal NEGATIVE [facility] Comment on above: Performed By: #### H DEB, CMP #### [facility] [address] [place] [address] Dr. Judd Andrade Clarity (U) CLEAR Normal CLEAR [facility] Comment on above: Performed By: #### H DEB, CMP #### [facility] [address] [place] [address] Dr. Judd Andrade Color (U) LT. YELLOW Normal YELLOW [facility] Comment on above: Performed By: #### H DEB, CMP #### [facility] [address] [place] [address] Dr. Judd Andrade ERUSUZY A micrscopic examination will be performed if indicated. Normal [facility] Comment on above: Performed By: #### H DEB, CMP #### [facility] [address] [place] [address] Dr. Judd Andrade Glucose Ql (U) Negative Normal NEGATIVE [facility] Comment on above: Performed By: #### H DEB, CMP #### [facility] [address] [place] [address] Dr. Judd Andrade Hemoglobin Ql (U) TRACE-INTACT Abnormal NEGATIVE [facility] Comment on above: Performed By: #### H STROPN, CMP #### [facility] [address] [address] [address] Judd Andrade Ketones Ql (U) Negative Normal NEGATIVE [facility] Comment on above: Performed By: #### H STROPN, CMP #### [facility] [address] [address] [address] Judd Andrade LEUKOCYTES Negative Normal NEGATIVE [facility] Comment on above: Performed By: #### H STROPN, CMP #### [facility] [address] [address] [address] Judd Andrade Nitrite Ql (U) Negative Normal NEGATIVE [facility] Comment on above: Performed By: #### H STROPN, CMP #### [facility] [address] [place] [address] Dr. Judd Andrade pH (U) 6.0 [pH] Normal 5-9 [facility] Comment on above: Performed By: #### H STROPN, CMP #### [facility] [address] [place] [address] Dr. Judd Andrade SPEC GRAVITY 1.005 Normal 1.005-<=1.025 [facility] Comment on above: Performed By: #### H STROPN, CMP #### [facility] [address] [place] [address] Dr. Judd Andrade UA PROTEIN Negative Normal NEGATIVE/ TRACE [facility] Comment on above: Performed By: #### H STROPN, CMP #### [facility] [address] [place] [address] Dr. Judd Andrade UR MICRO IND INDICATED Normal [facility] Comment on above: Performed By: #### H STROPN, CMP #### [facility] [address] [place] [address] Dr. Judd Andrade Urobilinogen Qn (U) 0.2 {Carol'U}/dL Normal 0.2 - 1. 0 [facility] Comment on above: Performed By: #### H STROPN, CMP #### [facility] [address] [place] [address] Dr. Judd Andrade URINE MICROSCOPIC ONLYon BACTERIA NONE SEEN Normal NONE SEEN [facility] Comment on above: Performed By: #### H STROPN, CMP #### [facility] [address] [place] [address] Dr. Judd Andrade Bacteria identified Cx Nom (U) NOT INDICATED Normal [facility] Comment on above: Performed By: #### H STROPN, CMP #### [facility] [address] [place] [address] Dr. Judd Andrade CAST NONE SEEN Normal NONE SEEN [facility] Comment on above: Performed By: #### H STROPN, CMP #### [facility] [address] [place] [address] Dr. Judd Andrade Crystals LM Nom (Urine sed) NONE SEEN Normal NONE SEEN [facility] Comment on above: Performed By: #### H STROPN, CMP #### [facility] [address] [place] [address] Dr. Judd Andrade Epithelial cells LM Ql (Urine sed) FEW Abnormal NONE SEEN /RARE [facility] Comment on above: Performed By: #### H STROPN, CMP #### [facility] [address] [place] [address] Dr. Judd Andrade MUCOUS NONE SEEN Normal NONE SEEN [facility] Comment on above: Performed By: #### H STROPN, CMP #### [facility] [address] [place] [address] Dr. Judd Andrade RBC 0-2 Normal 0-2 [facility] Comment on above: Performed By: #### H STROPN, CMP #### [facility] [address] [place] [address] Dr. Judd Andrade WBC NONE SEEN Normal NONE SEEN [facility] Comment on above: Performed By: #### H STROPN, CMP #### [facility] [address] [place] [address] Dr. Judd Andrade Vital Signs Date Time Vital Sign Value Performing Clinician Faci lity 12-30-2023 13:48-0400 Blood Pressure Location Bessie Galea [facility] 12-30-2023 13:48-0400 Diastolic blood pressure 82 mm[Hg] Bessie Galea [facility] 12-30-2023 13:48-0400 Heart rate 80 /min Bessie Galea [facility] 12-30-2023 13:48-0400 Respiratory rate 16 /min Bessie Galea [facility] 12-30-2023 13:48-0400 Systolic blood pressure 117 mm[Hg] Bessie Galea [facility] Encounters Encounter Date Encounter Type Care Provider Facility Start: 01-03-2024 End: 01-03-2024 ambulatory KATIE JUANJOSE Not Available Start: 12-30-2023 End: 12-30-2023 ambulatory Bessie Gong Facility:[facility] Start: 12-30-2023 End: 12-30-2023 Patient encounter procedure Bessie Ly Alexisea [facility] Start: 12-21-2023 End: 12-21-2023 ambulatory NATALIE TINSLEY Not Available Start: 10-04-2023 End: 10-04-2023 ambulatory KATIE JUANJOSE Not Available Start: 06-30-2023 End: 06-30-2023 ambulatory KATIE JUANJOSE Not Available Start: 06-24-2023 End: 06-24-2023 ambulatory VALE HI Not Available Start: 03-23-2023 End: 03-23-2023 ambulatory KATIE JUANJOSE Not Available Start: 09-24-[address] JOHN PORTER . [facility]: Start: 09-22-2022 End: 09-23-[address] [...] vaccine, adsorbed Bessie Galea [facility] Payers Date Payer Category Payer Unknown [id number] 1965 Unknown [id number] 2.16.84 0.1.576096.3.579.2.593 1965 Unknown [id number] 2.16.84 0.1.538971.3.579.2.593 1965 Unknown [id number] 2.16.84 0.1.453804.3.579.2.593 1965 Unknown [id number] 2.16.84 0.1.478985.3.579.2.593 1965 Unknown [id number] 2.16.84 0.1.049674.3.579.2.593 1965 Unknown [id number] 2.16.84 0.1.057549.3.579.2.593 1965 Unknown [id number] 2.16.84 0.1.213387.3.579.2.593 1965 Unknown [id number] 2.16.84 0.1.234201.3.579.2.593 1965 Unknown [id number] 2.16.84 0.1.526624.3.579.2.593 1965 Unknown [id number] 2.16.84 0.1.238838.3.579.2.593 1965 Unknown [id number] 2.16.84 0.1.347298.3.579.2.593 1965 Unknown [id number] 2.16.84 0.1.535748.3.579.2.593 1965 Unknown [id number] 2.16.84 0.1.285837.3.579.2.593 1965 Unknown [id number] 2.16.84 0.1.466556.3.579.2.593 1965 Unknown [id number] 2.16.84 0.1.530576.3.579.2.593 1965 Unknown [id number] 2.16.84 0.1.372608.3.579.2.593 1965 Unknown [id number] 2.16.84 0.1.474568.3.579.2.593 1965 Unknown [id number] 2.16.84 0.1.490149.3.579.2.593 1965 Unknown [id number] 2.16.84 0.1.767270.3.579.2.593 1965 Unknown [id number] 2.16.84 0.1.534216.3.579.2.593 1965 Unknown [id number] 2.16.84 0.1.403816.3.579.2.593 1965 Unknown [id number] 2.16.84 0.1.720699.3.579.2.593 1965 Unknown [id number] 2.16.84 0.1.181111.3.579.2.593 1965 Unknown [id number] 2.16.84 0.1.022052.3.579.2.593 1965 Unknown [id number] 2.16.8 40.1.926061.3.579.2.727 1965 Unknown [id number] 2.16.84 0.1.514120.3.579.2.9 1965 Unknown [id number] 2.16.84 0.1.448796.3.579.2.1258 1965 Unknown [id number] 2.16.84 0.1.888596.3.579.2.1258 1965 Unknown [id number] 2.16.84 0.1.292915.3.579.2.1258 1965 Unknown [id number] 2.16.84 0.1.860234.3.579.2.9 1965 Unknown [id number] 2.16.840 .1.308323.3.579.2.9 1959 Self-pay [id number] 1959 Unknown [id number] 1959 Unknown [id number] Social History Date Type Detail Facility Start: 12-30-2023 Tobacco smoking status Ex-smoker (fi nding) [facility] Tobacco smoking status Never [facility] Sex Assigned At Female [facility] Functional Status Date Assessment Result Facility 12-30-2023 Functional Status N/A [facility] Hospital Discharge instructions 12-30-2023 Note Date [...] provider. Document Revised: 08/21/2021 Document Reviewed: 08/21/2021 [email or web address] Patient Education 2023 [employer]. Follow Up Care 12/02/2023 13:46:26 With:Farideh BARRERA, Bessie Modi, URL Address: When: Unknown Comments:pending imaging and after PFPT [facility] Clinical Note 12-30-2023 Note Date & [...] Reviewed: 08/21/2021 Else[employer] Patient Education ? 2023 [employer]. [facility] Evaluation + Plan note Note Date & Type Note Facility Evaluation + Plan note No data available for this section [facility] Progress note Note Date & Type Note Facility Progress note No data available for this section [facility] Summary Purpose Family History No Family History Records Found No data available for this section No Family History Records FoundNo Family History Records Found Advance Directives No Advanced Directives Records FoundNo Advanced Directives Records FoundNo Advanced Directives Records Found Additional Source Comments INFORMATION SOURCE (unrecogn ized section and content) DATE CREATED AUTHOR [facility]/02/2022 [facility] DATE CREATED AUTHOR AUTHOR'S ORGANIZ ATION 01/01/2024 [facility] DATE CREATED AUTHOR AUTHOR'S ORGANIZ ATION 01/04/2024 [facility] EPIC Patient Care team informatio n (unrecognized section and content) Personnel Name: John Porter MD Address: Address: [address] [place] [address] FOR RECORDS PERTAINING TO PATIENTS WHO ARE [...] BE BASED ON THE PRIMARY CLINICAL RECORDS. [employer] provides no warranty or guarantee of the accuracy or completeness of information in this document.
[2024-01-07 07:15] LABS: Basophils Percent Auto 0.8 % (0.2-2.0); Eosinophils Absolute Auto 0.1 10^3/uL (0.0-0.7); Eosinophils Percent Auto 1.9 % (0.9-7.0); Hematocrit 43.1 % (36.0-48.0); Hemoglobin 13.9 g/dL (12.0-16.0); Immature Granulocytes Abs Auto 0.01 10^3/uL (0.00-0.03); Immature Granulocytes Pct Auto 0.2 % (0.0-0.5); Lymphocytes Absolute Auto 1.7 10^3/uL (1.2-3.8); Lymphocytes Percent Auto 32.9 % (20.5-60.0); Mean Corpuscular HGB Conc 32.3 g/dL (29.9-35.2); Mean Corpuscular Hemoglobin 28.8 pg (26.7-34.0); Mean Corpuscular Volume 89.2 fL (81.0-99.0); Mean Platelet Volume 9.7 fL (9.5-13.5); Monocytes Absolute Auto 0.5 10^3/uL (0.3-0.8); Monocytes Percent Auto 9.6 % (1.7-12.0); Neutrophils Absolute Auto 2.8 10^3/uL (1.4-6.5); Neutrophils Percent Auto 54.6 % (43.0-75.0); Platelet Count 291 10^3/uL (150-450); Red Blood Count 4.83 10^6/uL (4.20-5.40); Red Cell Distribution Width 13.4 % (11.0-15.0); White Blood Count 5.1 10^3/uL (4.0-11.0)
--- NOTE | 2024-01-07 07:45 | ECG_ITS ---
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
[2024-01-07 07:46] LABS: HCG Quantitative <1 mIU/mL
[2024-01-07] MEDS: LACTATED RINGER'S SOLUTION 1,000 ML 50 ML IV ×2 (07:56→09:28)
--- NOTE | 2024-01-07 09:04 | PM.ONB ---
Brief Operative Note Date of procedure: 01/07/24 Pre-op diagnosis general: thickend endometrium, pmb Post-op diagnosis: other (endometrial polyp) Anesthesia: MAC Surgeon: Tahir Rust Estimated blood loss (mL): 5 Pathology: other (endometrial curretting and polyp) Condition: stable Disposition: PACU Urinary Catheter Management Urinary Catheter Management Straight: Cath placed during this visit: no
== END 2024-01-07 11:01 | disposition home or self-care (01) ==
PROVIDERS: PCP Family Medicine; Visit Provider Obstetrics & Gynecology
PROC: (CPT 00952; principal; 2024-01-07 08:10)
DX: R93.89 Abnormal findings on diagnostic imaging of other specified body structures (principal); R10.2 Pelvic and perineal pain; N84.0 Polyp of corpus uteri; Z90.49 Acquired absence of other specified parts of digestive tract; G47.33 Obstructive sleep apnea (adult) (pediatric); Z87.891 Personal history of nicotine dependence; K21.9 Gastro-esophageal reflux disease without esophagitis; F43.10 Post-traumatic stress disorder, unspecified
CPT/HCPCS: 00952; 58558; 36415; 84702; 85025; 88305; 93005; J1100; J1200; J1885; J2405; J2704; J3010

== ENCOUNTER 2024-01-14 13:41 | Outpatient (OUT) | payer OTHER, SELFPAY ==
--- OUTSIDE RECORDS SUMMARY | 2024-01-14 13:54 | XMS_ITS | CCD ---
Author Organization [facility] Care Team Providers Care Technical Laboratory Asst Name Role Phone ABELINOY ., DR LOPEZ [...] DR WILSON Admitting Unavailable JUANJOSE ., DR IWLSON Attending Unavailable HOY ., DR LOPEZ Primary [...] Unavailable JUANJOSE ., DR WILSON Attending Unavailable STRASBURG, DR ELLYN Dougherty Consulting Unavailable HOY ., [...] Consulting Unavailable John Porter Primary Care Physician [phone] VALE HI Attending Unavailable RALF RENDON Referring Unavailable GENI RUSTY Attending Unavailable JUANJOSE, KATIE Attending Unavailable JUANJOSE, KATIE Attending Unavailable NATALIE TINSLEY Attending Unavailable JUANJOSE, KATIE Attending Unavailable MD John Porter Primary Care Provider [phone] DO Katie Rust Attending Provider Bessie Gong Attending Unavailable John Porter Primary Care Unavailable Katie Rust Attending Unavailable Katie Rust Admitting Unavailable Allergies Allergy Classification Reported Allergen(s) Allergy Type Date of Onset Reaction(s) Facility (1 source) Azithromycin Drug Allergy 12-21-19 22 [facility] Repository (3 sources) Imipramine Drug Allergy 10-06-19 13 hallucinations [facility] Repository (2 sources) Sulfonamides (Antibiotic) Drug allergy (disorder) 10-06-19 13 [facility] Repository (2 sources) E.E.S. Drug allergy (disorder) 10-06-19 13 [facility] Repository (2 sources) Erythromycin; Translations: [erythromycin] Drug Allergy Unknown (qualifier value) [facility] (2 sources) Imipramine; Translations: [imipramine] Drug Allergy Unknown (qualifier value) [facility] (2 sources) Sulfonamides (Antibiotic); Translations: [sulfa drugs] Drug allergy Unknown (qualifier value) [facility] (2 sources) Sulfonamides (Antibiotic); Translations: [Sulfa (Sulfonamide Antibiotics)] Allergy to substance 12-02-19 [facility] (2 sources) erythromycin base; Translations: [erythromycin base] Allergy to substance 12-02-19 [facility] (1 source) Imipramine Drug Allergy 12-02-19 [facility] Repository Problems Active Problems Problem Classification [...] 06-05-2022 Episodic Other aftercare (4 sources) Other longterm (current) drug therapy; Translations: [OTH AUTHORIZATION NURSE CURRENT DRUG THERAPY] Onset: 12-23-2021 Episodic Other [...] Test Name Value Interpretation Reference Range Facility [facility] 01-07-2024 L Specimen: [id number] Received: 01/07/241349 Status: LAWSON Guzman Num: [id number] Spec Type: Surgical Subm Dr: Katie Rust Tissues: A Endometrial Polyp (ENOMETRIAL POLYP AND CURETTI) Procedures: HE/2, Gross/Micro L4 Age/ Patient Sex Location Account Attending Physician Yulia Dorsey 58/F LABELL [id number] Katie Rust SPEC NUM: [id number] RECD: 01/07/24 STATUS: LAWSON MEGAN NUM: [id number] TIMOTHY: 01/07/[address]: Katie Rust ENTERED: 01/07/24-13[address] [facility] [address]: Cristhian,Lab SPEC TYPE: Surgical DEPT: BIANCA VANN ENTERED BY: [id number] RECV BY: [id number] ORDERED: HE/2, Gross/Micro L4 ORDERED: HE/2, Gross/Micro L4 Pathological Diagnosis Endometrium, biopsy: Fragments of endometrial polyps. Clinical Information Thickened endometrium Gross Description The specimen was received in formalin with the patient's name and endometrial polyp and curettings and consists of multiple lopez-white irregular shaped portions of soft tissue measuring 2.5 x 2.4 x 0.6 cm in aggregate. The specimen is entirely submitted cassette A1. CPT Codes 83693 -------- -------- Specimen: [id number] Received: 01/07/24 Status: LAWSON Megan Num: [id number] Spec Type: Surgical Subm Dr: Katie Rust Tissues: A Endometrial Polyp (ENOMETRIAL POLYP AND CURETTI) Procedures: HE/2, Gross/Micro L4 -------- Patient: WillianGen licharenee Arrieta [id number] (Continued) -------- Signed (signature on file) Tammie Mcclellan MD 01/13/24 1606 Normal [facility] Patient Letter FTon 2023 Patient [place] [facility] [place] [facility] January 07, 2024 YULIA DORSEY [address] [place] [address] : 1965 Dear Yulia Dorsey, We have been trying to reach you with no success. It is important that you return our call upon receiving this letter. Also, at the time of your call, please provide us with your current information. Thank you for your prompt attention to this matter. Sincerely, [facility] [address] [place] [address] [facility] Ambulatory Visit Summaryon 0 12-30-2023 Ambulatory Visit Summary Ambulatory Visit Summary YULIA DORSEY :1965 Visit Date:12/30/2023 Ambulatory Visit Instructions Your [...] you for choosing us for your care. [facility] Provider Letteron 12-30-2023 Provider Letter Provider Letter December 30, 2023 YULIA DORSEY [address] [place], [place] [address] [address] : 1965 To Whom It May Concern, Please excuse above patient from work. Date of Illness: From: 12/30/23 To: 12/30/23 May Return to Work On: 12/31/2023 Restrictions: Comments: Patient had an appointment on 12/30/23 at [facility] Sincerely, [facility] Urology Office/Clinic Noteon 12-30-2023 Urology Office/Clinic [...] Skin: No rashes or suspicious lesions Assessment/Plan QUARTZ MINER BLASTING referred by Dr. Porter for recurrent UTI [...] she went to an urgent care in [facility] who started her on Augmentin for UTI [...] E&M of New Patient High 60-74 Min [id number] 2. Kidney stones (N20.0: Calculus of kidney) [...] now. -K (more content not included)... Normal [facility] Comment on above: Result Comment: Elec tronically Signed By: Farideh BARRERA, Bessie Modi\.br\Date and Time Signed: 12/30/23 15:22 EDT MG MAMM DX 3D RT CADon 09-22 MG MAMM DX 3D RT CAD Patient: GEN RENEE DORSEY. Exam Date: 09/22/2022 : 1965 Gender:F Ordering : DR KATIE RUST . Admission #: [id number] Family : Order #: [id number] CLICK HERE TO VIEW EXAM RADIOLOGY REPORT [...] at age 40. LOCATION: [facility] BREAST COMPOSITION: Almost entirely fatty. FINDINGS: DIAGNOSTIC [...] 09/22/2022 at 15:03 Normal [facility] US BREAST RIGHT LIMITEDon US BREAST RIGHT LIMITED Patient: YULIA DORSEY. Exam Date: 09/22/2022 : 1965 Gender:F Ordering : DR KATIE RUST . Admission #: [id number] Family : Order #: [id number] CLICK HERE TO VIEW EXAM RADIOLOGY REPORT [...] at age 40. LOCATION: [facility] BREAST COMPOSITION: Almost entirely fatty. FINDINGS: DIAGNOSTIC [...] 09/22/2022 at 15:03 Normal [facility] US ST HEAD_NECKon 08-31-[address] HEAD_NECK [...] by: GABO STRONG Date: 2022-08-31 08:09 Normal [facility] US PELVIS AND TRANSVAGon US PELVIS [...] Date: 2022-07-29 06:32 Normal [facility] INSULINon 07-04-2022 Insulin 6.2 uIU/mL Normal 2.6-24.9 [facility] Comment on above: Performed By: #### H DEB, CMP #### [facility] Laboratory [address] [place] [address] Dr. Judd Andrade CBC AUTO DIFFon 07-03-2022 BASO # 0.0 103/ul Normal 0.0-0.1 [facility] Comment on above: Performed By: #### C BC #### [facility] Laboratory [address] [place] [address] Dr. Judd Andrade Basophils/100 WBC (Bld) 1.1 % Normal 0.2-2.0 [facility] Comment on above: Performed By: #### C BC #### [facility] Laboratory [address] [place] [address] Dr. Judd Andrade EO # 0.1 103/ul Normal 0.0-0.7 [facility] Comment on above: Performed By: #### C BC #### [facility] Laboratory [address] [place] [address] Dr. Judd Andrade Eosinophils/100 WBC (Bld) 3.6 % Normal 0.9-7.0 [facility] Comment on above: Performed By: #### C BC #### [facility] Laboratory [address] [place] [address] Dr. Judd Andrade Erythrocyte distribution width (RBC) [Ratio] 13.6 % Normal 11.0-15.0 [facility] Comment on above: Performed By: #### C BC #### [facility] Laboratory [address] [address] [address] Judd Andrade Hematocrit (Bld) [Volume fraction] 41.8 % Normal 36.0-48.0 [facility] Comment on above: Performed By: #### C BC #### [facility] Laboratory [address] [place] [address] Dr. Judd Andrade Hemoglobin (Bld) [Mass/Vol] 13.5 g/dL Normal 12.0-16.0 [facility] Comment on above: Performed By: #### C BC #### [facility] Laboratory [address] [place] [address] Dr. Judd Andrade IG # 0.01 10e3/ul Normal 0.00-0.03 [facility] Comment on above: Performed By: #### C BC #### [facility] Laboratory [address] [place] [address] Dr. Judd Andrade IG % 0.3 % Normal 0.0-0.5 [facility] Comment on above: Performed By: #### C BC #### [facility] Laboratory [address] [place] [address] Dr. Judd Andrade LYMPH # 1.4 103/ul Normal 1.2-3.8 [facility] Comment on above: Performed By: #### C BC #### [facility] Laboratory [address] [place] [address] Dr. Judd Andrade Lymphocytes/100 WBC (Bld) 38.4 % Normal 20.5-60.0 [facility] Comment on above: Performed By: #### C BC #### [facility] Laboratory [address] [place] [address] Dr. Judd Andrade MANUAL DIFF REQ NO Normal [facility] Comment on above: Performed By: #### C BC #### [facility] Laboratory [address] [place] [address] Dr. Judd Andrade MCH (RBC) [Entitic mass] 28.2 pg Normal 26.7-34.0 [facility] Comment on above: Performed By: #### C BC #### [facility] Laboratory [id number] Judd Andrade MCHC (RBC) [Mass/Vol] 32.3 g/dL Normal 29.9-35.2 [facility] Comment on above: Performed By: #### C BC #### [facility] Laboratory [id number] Judd Andrade MCV (RBC) [Entitic vol] 87.4 fL Normal 81.0-99.0 [facility] Comment on above: Performed By: #### C BC #### [facility] Laboratory [address] [address] [address] Judd Andrade MONO # 0.4 103/ul Normal 0.3-0.8 [facility] Comment on above: Performed By: #### C BC #### [facility] Laboratory [address] [place] [address] Dr. Judd Andrade Monocytes/100 WBC (Bld) 10.4 % Normal 1.7-12.0 [facility] Comment on above: Performed By: #### C BC #### [facility] Laboratory [address] [place] [address] Dr. Judd Andrade NEUT # 1.7 103/ul Normal 1.4-6.5 [facility] Comment on above: Performed By: #### C BC #### [facility] Laboratory [address] [place] [address] Dr. Judd Andrade Neutrophils/100 WBC (Bld) 46.2 % Normal 43.0-75.0 [facility] Comment on above: Performed By: #### C BC #### [facility] Laboratory [address] [place], [place] [id number] Dr. Judd Andrade Platelet mean volume (Bld) [Entitic vol] 9.6 fL Normal 9.5-13.5 [facility] Comment on above: Performed By: #### C BC #### [facility] Laboratory [address] [place] [address] Dr. Judd Andrade PLT 246 103/ul Normal 150-450 [facility] Comment on above: Performed By: #### C BC #### [facility] Laboratory [address] [address] [address] Judd Andrade RBC 4.78 106/ul Normal 4.20-5.40 [facility] Comment on above: Performed By: #### C BC #### [facility] Laboratory [address] [address] [address] Judd Andrade WBC 3.7 103/ul Critically low 4.0-11.0 [facility] Comment on above: Performed By: #### C BC #### [facility] Laboratory [address] [address] [address] Judd Andrade FREE THYROXINE INDEX T7on FTI 3.20 Normal 1.30-4.50 [facility] Comment on above: Performed By: #### T 7, LIPID, TSH, CMP #### [facility] Laboratory [address] [place] [address] Dr. Judd Andrade T3U 36.0 % Normal 30.0-39.0 [facility] Comment on above: Performed By: #### T 7, LIPID, TSH, CMP #### [facility] Laboratory [address] [place] [address] Dr. Judd Andrade T4 [Mass/Vol] 8.90 ug/dL Normal 4.80-13.90 [facility] Comment on above: Performed By: #### T 7, LIPID, TSH, CMP #### [facility] [address] [place] [address] Dr. Judd Andrade GLYCOHEMOGLOBIN A1Con 2022 ADA RECOMMENDATION SEE BELOW Normal [facility] Comment on above: Result Comment: ADA RECOMMENDED LIMIT 4.0 - 6.0 ADA THERAPEUTIC TARGET < 7.0 ACTION SUGGESTED > 7.0 Performed By: #### C BC #### [facility] Laboratory [address] [place] [address] Dr. Judd Andrade Glucose [Mass/Vol] 120 mg/dL Normal [facility] Comment on above: Performed By: #### C BC #### [facility] [address] [place] [address] Dr. Judd Andrade HbA1c (Bld) [Mass fraction] 5.8 % Normal 4.5-6.2 [facility] Comment on above: Performed By: #### C BC #### [facility] Laboratory [address] [address] [address] Judd Andrade IRONon 07-03-2022 Iron [Mass/Vol] 67.0 ug/dL Normal 50.0-170.0 [facility] Comment on above: Performed By: #### V ITAD, IRON #### [facility] Laboratory [address] [address] [address] Judd Andrade LIPID PROFILEon 07-03-2022 CHOL-HDL RATIO NORM SEE BELOW Normal [facility] Comment on above: Result Comment: 3.3 - 4.4 LOW RISK 4.4 - 7.1 AVERAGE RISK 7.1 - 11.0 MODERATE RISK >11.0 HIGH RISK Performed By: #### T 7, LIPID, TSH, CMP #### [facility] [address] [address] [address] Judd Andrade Cholesterol [Mass/Vol] 216 mg/dL Critically high <=200 [facility] Comment on above: Performed By: #### T 7, LIPID, TSH, CMP #### [facility] Laboratory [address] [address] [address] Judd Andrade Cholesterol in HDL [Mass/Vol] 87 mg/dL Critically high 40-60 [facility] Comment on above: Performed By: #### T 7, LIPID, TSH, CMP #### [facility] Laboratory [address] [address] [address] Judd Andrade Cholesterol in LDL [Mass/Vol] 124.2 mg/dL Normal [facility] Comment on above: Performed By: #### T 7, LIPID, TSH, CMP #### [facility] Laboratory [address] [address] [address] Judd Andrade Cholesterol.total/Ch olesterol in HDL [Mass ratio] 2.5 {ratio} Normal [facility] Comment on above: Performed By: #### T 7, LIPID, TSH, CMP #### [facility] [address] [address] [address] Judd Andrade HDL NORMAL > or = 60 mg/dl - LO W CARDIOVASCULAR RISK <40 mg/dl - HIGH CARDIOVASCULAR RISK Normal [facility] Comment on above: Performed By: #### T 7, LIPID, TSH, CMP #### [facility] [address] [address] [address] Judd Andrade LDL CALC NORMAL SEE BELOW Normal [facility] Comment on above: Result Comment: <100 mg/dl OPTIMAL 100 - 129 mg/dl NEAR OR ABOVE OPTIMAL 130 - 159 mg/dl BORDERLINE HIGH 160 - 189 mg/dl HIGH >190 mg/dl VERY HIGH Performed By: #### T 7, LIPID, TSH, CMP #### [facility] [address] [address] [address] Judd Andrade Triglyceride [Mass/Vol] 24 mg/dL Normal <=150 [facility] Comment on above: Performed By: #### T 7, LIPID, TSH, CMP #### [facility] Laboratory [address] [address] [address] Judd Andrade VLDL CALC 4.8 mg/dL Normal [facility] Comment on above: Performed By: #### T 7, LIPID, TSH, CMP #### [facility] Laboratory [address] [address] [address] Judd Andrade PROF 14(COMP METB)on 023 Albumin [Mass/Vol] 4.0 g/dL Normal 3.4-5.0 [facility] Comment on above: Performed By: #### T 7, LIPID, TSH, CMP #### [facility] Laboratory [address] [address] [address] Judd Andrade Albumin/Globulin [Mass ratio] 1.1 {ratio} Normal [facility] Comment on above: Performed By: #### T 7, LIPID, TSH, CMP #### [facility] Laboratory [address] [address] [address] Judd Andrade ALP [Catalytic activity/Vol] 78 U/L Normal 46-116 [facility] Comment on above: Performed By: #### T 7, LIPID, TSH, CMP #### [facility] Laboratory [address] [address] [address] Judd Andrade ALT [Catalytic activity/Vol] 29 U/L Normal 14-59 [facility] Comment on above: Performed By: #### T 7, LIPID, TSH, CMP #### [facility] Laboratory [address] [address] [address] Judd Andrade Anion gap [Moles/Vol] 5.6 mmol/L Normal [facility] Comment on above: Performed By: #### T 7, LIPID, TSH, CMP #### [facility] Laboratory [address] [address] [address] Judd Andrade AST [Catalytic activity/Vol] 23 U/L Normal 15-37 [facility] Comment on above: Performed By: #### T 7, LIPID, TSH, CMP #### [facility] Laboratory [address] [place] [address] Dr. Judd Andrade Bilirubin [Mass/Vol] 0.5 mg/dL Normal 0.2-1.0 [facility] Comment on above: Performed By: #### T 7, LIPID, TSH, CMP #### [facility] Laboratory [address] [place] [address] Dr. Judd Andrade Calcium [Mass/Vol] 8.9 mg/dL Normal 8.5-10.1 [facility] Comment on above: Performed By: #### T 7, LIPID, TSH, CMP #### [facility] Laboratory [address] [place] [address] Dr. Judd Andrade Chloride [Moles/Vol] 105 mmol/L Normal 98-107 [facility] Comment on above: Performed By: #### T 7, LIPID, TSH, CMP #### [facility] Laboratory [address] [place] [address] Dr. Judd Andrade CO2 [Moles/Vol] 32.0 mmol/L Normal 21.0-32.0 [facility] Comment on above: Performed By: #### T 7, LIPID, TSH, CMP #### [facility] Laboratory [address] [place] [address] Dr. Judd Andrade Creatinine [Mass/Vol] 0.52 mg/dL Critically low 0.55-1.02 [facility] Comment on above: Performed By: #### T 7, LIPID, TSH, CMP #### [facility] Laboratory [address] [address] [address] Judd Andrade EGFR-AF GUYANESE >60 Normal >=60 [facility] Comment on above: Performed By: #### T 7, LIPID, TSH, CMP #### [facility] Laboratory [address] [address] [address] Judd Andrade EGFR-NON AF GUYANESE >60 Normal >=60 [facility] Comment on above: Performed By: #### T 7, LIPID, TSH, CMP #### [facility] Laboratory [address] [address] [address] Judd Andrade Globulin (S) [Mass/Vol] 3.6 g/dL Normal [facility] Comment on above: Performed By: #### T 7, LIPID, TSH, CMP #### [facility] Laboratory [address] [address] [address] Judd Andrade Glucose [Mass/Vol] 89 mg/dL Normal 74-106 [facility] Comment on above: Performed By: #### T 7, LIPID, TSH, CMP #### [facility] Laboratory [address] [address] [address] Judd Andrade Potassium [Moles/Vol] 4.2 mmol/L Normal 3.5-5.1 [facility] Comment on above: Performed By: #### T 7, LIPID, TSH, CMP #### [facility] Laboratory [address] [address] [address] Judd Andrade Protein [Mass/Vol] 7.6 g/dL Normal 6.4-8.2 [facility] Comment on above: Performed By: #### T 7, LIPID, TSH, CMP #### [facility] Laboratory [address] [address] [address] Judd Andrade Sodium [Moles/Vol] 139 mmol/L Normal 136-145 [facility] Comment on above: Performed By: #### T 7, LIPID, TSH, CMP #### [facility] [address] [address] [address] Judd Andrade Urea nitrogen [Mass/Vol] 11.0 mg/dL Normal 7.0-18.0 [facility] Comment on above: Performed By: #### T 7, LIPID, TSH, CMP #### [facility] Laboratory [address] [address] [address] Judd Andrade Urea nitrogen/Creatinine [Mass ratio] 21.2 mg/mg Normal [facility] Comment on above: Performed By: #### T 7, LIPID, TSH, CMP #### [facility] Laboratory [address] [address] [address] Judd Andrade TSHon 07-03-2022 TSH 1.037 uIU/mL Normal 0.358-3.740 [facility] Comment on above: Performed By: #### T 7, LIPID, TSH, CMP #### [facility] Laboratory [address] [place] [address] Dr. Judd Andrade VITAMIN D 25 OHon 07-03-2022 VIT D 25-OH 32.8 ng/mL Normal [facility] Comment on above: Performed By: #### V CARMELO, IRON #### [facility] Laboratory [address] [place] [address] Dr. Judd Andrade VIT D RANGES SEE BELOW Normal [facility] Comment on above: Result Comment: <20 ng/mL Vit D deficient 20 - <30 ng/mL Vit D insufficient 30 - 100 ng/mL Vit D sufficient >100 ng/mL Potential Toxicity Performed By: #### V CARMELO, IRON #### [facility] Laboratory [address] [place] [address] Dr. Judd Andrade BORDETELLA PERTUSSIS AB IGGo n 06-30-2022 B pertussis IgG Ab 3.88 index Invalid Interpretation Code 0.00-0.94 [facility] Comment on above: Result Comment: Clie nt Requested Flag Negative <0.95 Equivocal 0.95 - 1.04 Positive >1.04 Performed By: #### C BC #### [facility] [address] [place] [address] Dr. Judd Andrade BORDETELLA PERTUSSIS AB IGMo n 06-30-2022 B pertussis IgM Ab <1.0 Normal 0.0-0.9 [facility] Comment on above: Result Comment: Nega tive <1.0 Borderline 1.0 - 1.1 Positive >1.1 Performed By: #### H STROPN, CMP #### [facility] [address] [place] [address] Dr. Judd Andrade [id number] 2022 Krezg-5-[id number], Serum 158 mg/dL Normal 101-187 [facility] Comment on above: Performed By: #### C BC #### [facility] [address] [place] [address] Dr. Judd Andrade CBC AUTO DIFFon 06-03-2022 BASO # 0.0 103/ul Normal 0.0-0.1 [facility] Comment on above: Performed By: #### H STROPN, CMP #### [facility] [address] [place] [address] Dr. Judd Andrade Basophils/100 WBC (Bld) 0.6 % Normal 0.2-2.0 [facility] Comment on above: Performed By: #### H STROPN, CMP #### [facility] [address] [place] [address] Dr. Judd Andrade EO # 0.0 103/ul Normal 0.0-0.7 [facility] Comment on above: Performed By: #### H STROPN, CMP #### [facility] [address] [place] [address] Dr. Judd Andrade Eosinophils/100 WBC (Bld) 0.6 % Critically low 0.9-7.0 [facility] Comment on above: Performed By: #### H STROPN, CMP #### [facility] [address] [place] [address] Dr. Judd Andrade Erythrocyte distribution width (RBC) [Ratio] 13.5 % Normal 11.0-15.0 [facility] Comment on above: Performed By: #### H STROPN, CMP #### [facility] [address] [place] [address] Dr. Judd Andrade Hematocrit (Bld) [Volume fraction] 42.4 % Normal 36.0-48.0 [facility] Comment on above: Performed By: #### H STROPN, CMP #### [facility] [address] [address] [address] Judd Andrade Hemoglobin (Bld) [Mass/Vol] 13.4 g/dL Normal 12.0-16.0 [facility] Comment on above: Performed By: #### H STROPN, CMP #### [facility] [address] [address] [address] Judd Andrade IG # 0.01 10e3/ul Normal 0.00-0.03 [facility] Comment on above: Performed By: #### H STROPN, CMP #### [facility] [address] [place] [address] Dr. Judd Andrade IG % 0.2 % Normal 0.0-0.5 [facility] Comment on above: Performed By: #### H STROPN, CMP #### [facility] [address] [place] [address] Dr. Judd Andrade LYMPH # 1.1 103/ul Critically low 1.2-3.8 [facility] Comment on above: Performed By: #### H STROPN, CMP #### [facility] [address] [place] [address] Dr. Judd Andrade Lymphocytes/100 WBC (Bld) 23.5 % Normal 20.5-60.0 [facility] Comment on above: Performed By: #### H STROPN, CMP #### [facility] [address] [place] [address] Dr. Judd Andrade MANUAL DIFF REQ NO Normal [facility] Comment on above: Performed By: #### H STROPN, CMP #### [facility] [address] [address] [address] Judd Andrade MCH (RBC) [Entitic mass] 28.9 pg Normal 26.7-34.0 [facility] Comment on above: Performed By: #### H STROPN, CMP #### [facility] [address] [place] [address] Dr. Judd Andrade MCHC (RBC) [Mass/Vol] 31.6 g/dL Normal 29.9-35.2 [facility] Comment on above: Performed By: #### H STROPN, CMP #### [facility] [address] [address] [address] Judd Andrade MCV (RBC) [Entitic vol] 91.6 fL Normal 81.0-99.0 [facility] Comment on above: Performed By: #### H STROPN, CMP #### [facility] [address] [address] [address] Judd Andrade MONO # 0.8 103/ul Normal 0.3-0.8 [facility] Comment on above: Performed By: #### H STROPN, CMP #### [facility] [address] [place] [address] Dr. Judd Andrade Monocytes/100 WBC (Bld) 16.5 % Critically high 1.7-12.0 [facility] Comment on above: Performed By: #### H STROPN, CMP #### [facility] [address] [place] [address] Dr. Judd Andrade NEUT # 2.7 103/ul Normal 1.4-6.5 [facility] Comment on above: Performed By: #### H STROPN, CMP #### [facility] [address] [place] [address] Dr. Judd Andrade Neutrophils/100 WBC (Bld) 58.6 % Normal 43.0-75.0 [facility] Comment on above: Performed By: #### H STROPN, CMP #### [facility] [address] [place] [address] Dr. Judd Andrade Platelet mean volume (Bld) [Entitic vol] 9.8 fL Normal 9.5-13.5 [facility] Comment on above: Performed By: #### H STROPN, CMP #### [facility] [address] [place] [address] Dr. Judd Andrade PLT 252 103/ul Normal 150-450 [facility] Comment on above: Performed By: #### H STROPN, CMP #### [facility] [address] [place] [address] Dr. Judd Andrade RBC 4.63 106/ul Normal 4.20-5.40 [facility] Comment on above: Performed By: #### H DEB, CMP #### [facility] [address] [address] [address] Judd Andrade WBC 4.7 103/ul Normal 4.0-11.0 [facility] Comment on above: Performed By: #### H DEB, CMP #### [facility] [address] [place] [address] Dr. Judd Andrade PROF 14(COMP METB)on 023 Albumin [Mass/Vol] 4.0 g/dL Normal 3.4-5.0 [facility] Comment on above: Performed By: #### H DEB, CMP #### [facility] [address] [place] [address] Dr. Judd Andrade Albumin/Globulin [Mass ratio] 1.0 {ratio} Normal [facility] Comment on above: Performed By: #### H DEB, CMP #### [facility] [address] [place] [address] Dr. Judd Andrade ALP [Catalytic activity/Vol] 77 U/L Normal 46-116 [facility] Comment on above: Performed By: #### H DEB, CMP #### [facility] [address] [place] [address] Dr. Judd Andrade ALT [Catalytic activity/Vol] 33 U/L Normal 14-59 [facility] Comment on above: Performed By: #### H DEB, CMP #### [facility] [address] [place] [address] Dr. Judd Andrade Anion gap [Moles/Vol] 8.0 mmol/L Normal [facility] Comment on above: Performed By: #### H DEB, CMP #### [facility] [address] [place] [address] Dr. Judd Andrade AST [Catalytic activity/Vol] 28 U/L Normal 15-37 [facility] Comment on above: Performed By: #### H DEB, CMP #### [facility] [address] [place] [address] Dr. Judd Andrade Bilirubin [Mass/Vol] 0.6 mg/dL Normal 0.2-1.0 [facility] Comment on above: Performed By: #### H STROPN, CMP #### [facility] [address] [place] [address] Dr. Judd Andrade Calcium [Mass/Vol] 9.3 mg/dL Normal 8.5-10.1 [facility] Comment on above: Performed By: #### H STROPN, CMP #### [facility] [address] [address] [address] Judd Andrade Chloride [Moles/Vol] 103 mmol/L Normal 98-107 [facility] Comment on above: Performed By: #### H STROPN, CMP #### [facility] [address] [place] [address] Dr. Judd Andrade CO2 [Moles/Vol] 33.6 mmol/L Critically high 21.0-32.0 [facility] Comment on above: Performed By: #### H STROPN, CMP #### [facility] [address] [place] [address] Dr. Judd Andrade Creatinine [Mass/Vol] 0.59 mg/dL Normal 0.55-1.02 [facility] Comment on above: Performed By: #### H STROPN, CMP #### [facility] [address] [place] [address] Dr. Judd Andrade EGFR-AF GUYANESE >60 Normal >=60 [facility] Comment on above: Performed By: #### H STROPN, CMP #### [facility] [address] [place] [address] Dr. Judd Andrade EGFR-NON AF GUYANESE >60 Normal >=60 [facility] Comment on above: Performed By: #### H STROPN, CMP #### [facility] [address] [place] [address] Dr. Judd Andrade Globulin (S) [Mass/Vol] 4.0 g/dL Normal [facility] Comment on above: Performed By: #### H STROPN, CMP #### [facility] [address] [place] [address] Dr. Judd Andrade Glucose [Mass/Vol] 130 mg/dL Critically high 74-106 [facility] Comment on above: Performed By: #### H DEB, CMP #### [facility] [address] [place] [address] Dr. Judd Andrade Potassium [Moles/Vol] 3.6 mmol/L Normal 3.5-5.1 [facility] Comment on above: Performed By: #### H TERAPN, CMP #### [facility] [address] [address] [address] Judd Andrade Protein [Mass/Vol] 8.0 g/dL Normal 6.4-8.2 [facility] Comment on above: Performed By: #### H DEB, CMP #### [facility] [address] [place] [address] Dr. Judd Andrade Sodium [Moles/Vol] 141 mmol/L Normal 136-145 [facility] Comment on above: Performed By: #### H DEB, CMP #### [facility] [address] [place] [address] Dr. Judd Andrade Urea nitrogen [Mass/Vol] 8.0 mg/dL Normal 7.0-18.0 [facility] Comment on above: Performed By: #### H DEB, CMP #### [facility] [address] [place] [address] Dr. Judd Andrade Urea nitrogen/Creatinine [Mass ratio] 13.6 mg/mg Normal [facility] Comment on above: Performed By: #### H DEB, CMP #### [facility] [address] [place] [address] Dr. Judd Andrade TROPONIN, HIGH SENSITIVITYon 06-03-2022 HSTROP <4.0 Normal 4.0-51.3 [facility] Comment on above: Result Comment: CUT- OFF POINTS HAVE BEEN ESTABLISHED BASED ON THE FOURTH UNIVERSAL DEFINITIONS OF MYOCARDIAL INFARCTION. THE UPPER REFERENCE LIMIT (URL) OF TROPONIN, DEFINED THE 99TH PERCENTILE OF cTnI DISTRIBUTION IN A REFERENCE POPULATION, HAS BEEN CONFIRMED THE DECISION THRESHOLD FOR UT DIAGNOSIS. Performed By: #### H DEB, CMP #### [facility] [address] [address] [address] Judd Andrade XR CHEST 2 Von [...] Date: 2022-06-03 12:15 Normal [facility] Covid-19 PCR (CVDTB)on SARS-CoV-2 (COVID-19) RNA JOLLY+probe Ql (Unsp spec) Not detected Normal NOT DETECTED [facility] Comment on above: Result Comment: This test is not yet approved or cleared by the [place] FDA. When there are no FDA-approved or cleared tests available, and other criteria are met, FDA can make tests available under an emergency access mechanism called an Emergency Use Authorization (EUA). The EUA for this test is supported by the Loading [employer] of Health and Human Service's (HHS's) declaration [...] consistent with SARS-CoV-2. Performed By: #### H TERA, CMP #### [facility] [address] [address] [address] Judd Andrade INFLUENZA A AND B AGon 06-02 INFLUANEGH SEE BELOW Normal [facility] Comment on above: Result Comment: Nega tive for Flu A protein angiten. Infection due to Flu A cannot be ruled out. Flu A angiten in the sample may be below the detection limit of the test. Performed By: #### H STROPN, CMP #### [facility] [address] [address] [address] Judd Andrade [facility] SEE BELOW Normal [facility] Comment on above: Result Comment: Nega tive for Flu B protein antigen. Infection due to Flu B cannot be ruled out. Flu B antigen in the sample may be below the detection limit of the test. Performed By: #### H STROPN, CMP #### [facility] [address] [address] [address] Judd Andrade INFLUENZA A AG Negative Normal NEGATIVE SEE COMMENT [facility] Comment on above: Performed By: #### H STROPN, CMP #### [facility] [address] [address] [address] Judd Andrade INFLUENZA B AG Negative Normal NEGATIVE SEE COMMENT [facility] Comment on above: Performed By: #### H STROPN, CMP #### [facility] [address] [address] [address] Judd [address] US ST HEAD_NECKon 02-11-2022 [...] GABO STRONG Date: 2022-02-11 16:24 Normal [facility] MG MAMM SCREEN 3D SUSANA CADon 02-10-2022 MG MAMM SCREEN 3D SUSANA CAD Patient: YULIA DORSEY Exam Date: 02/10/2022 : 1965 Gender:F Ordering : DR JOHN PORTER . Admission #: [id number] Family : Order #: [id number] CLICK HERE TO VIEW EXAM RADIOLOGY REPORT [...] at age 40. LOCATION: [facility] BREAST COMPOSITION: Almost entirely fatty. FINDINGS: DIAGNOSTIC [...] Strong M.D. on 02/11/2022 at 14:20 Normal [facility] XR CHEST 1 Von 01-15-2022 XR [...] Date: 2022-01-15 18:39 Normal [facility] CBC AUTO DIFFon 12-30-2021 BASO # 0.0 103/ul Normal 0.0-0.1 [facility] Comment on above: Performed By: #### C BC #### [facility] [address] [place], [place] [address] Dr. Judd Andrade Basophils/100 WBC (Bld) 0.6 % Normal 0.2-2.0 [facility] Comment on above: Performed By: #### C BC #### [facility] [address] [place], [place] [address] Dr. Judd Andrade EO # 0.1 103/ul Normal 0.0-0.7 [facility] Comment on above: Performed By: #### C BC #### [facility] [address] [address] [address] Judd Andrade Eosinophils/100 WBC (Bld) 2.1 % Normal 0.9-7.0 [facility] Comment on above: Performed By: #### C BC #### [facility] [address] [place] [address] Dr. Judd Andrade Erythrocyte distribution width (RBC) [Ratio] 13.0 % Normal 11.0-15.0 [facility] Comment on above: Performed By: #### C BC #### [facility] [address] [place] [address] Dr. Judd Andrade Hematocrit (Bld) [Volume fraction] 41.9 % Normal 36.0-48.0 [facility] Comment on above: Performed By: #### C BC #### [facility] [address] [place] [address] Dr. Judd Andrade Hemoglobin (Bld) [Mass/Vol] 13.7 g/dL Normal 12.0-16.0 [facility] Comment on above: Performed By: #### C BC #### [facility] [address] [place] [address] Dr. Judd Andrade IG # 0.03 10e3/ul Normal 0.00-0.03 [facility] Comment on above: Performed By: #### C BC #### [facility] [address] [place] [address] Dr. Judd Andrade IG % 0.6 % Critically high 0.0-0.5 [facility] Comment on above: Performed By: #### C BC #### [facility] [address] [place] [address] Dr. Judd Andrade LYMPH # 1.9 103/ul Normal 1.2-3.8 [facility] Comment on above: Performed By: #### C BC #### [facility] [address] [place] [address] Dr. Judd Andrade Lymphocytes/100 WBC (Bld) 34.5 % Normal 20.5-60.0 [facility] Comment on above: Performed By: #### C BC #### [facility] [address] [place] [address] Dr. Judd Andrade MANUAL DIFF REQ NO Normal [facility] Comment on above: Performed By: #### C BC #### [facility] [address] [place] [address] Dr. Judd Andrade MCH (RBC) [Entitic mass] 28.5 pg Normal 26.7-34.0 [facility] Comment on above: Performed By: #### C BC #### [facility] [address] [place] [address] Dr. Judd Andrade MCHC (RBC) [Mass/Vol] 32.7 g/dL Normal 29.9-35.2 [facility] Comment on above: Performed By: #### C BC #### [facility] [address] [place] [address] Dr. Judd Andrade MCV (RBC) [Entitic vol] 87.1 fL Normal 81.0-99.0 [facility] Comment on above: Performed By: #### C BC #### [facility] [address] [place] [address] Dr. Judd Andrade MONO # 0.6 103/ul Normal 0.3-0.8 [facility] Comment on above: Performed By: #### C BC #### [facility] [address] [place] [address] Dr. Judd Andrade Monocytes/100 WBC (Bld) 10.4 % Normal 1.7-12.0 [facility] Comment on above: Performed By: #### C BC #### [facility] [address] [place] [address] Dr. Judd Andrade NEUT # 2.8 103/ul Normal 1.4-6.5 [facility] Comment on above: Performed By: #### C BC #### [facility] [address] [place] [address] Dr. Judd Andrade Neutrophils/100 WBC (Bld) 51.8 % Normal 43.0-75.0 [facility] Comment on above: Performed By: #### C BC #### [facility] [address] [place] [address] Dr. Judd Andrade Platelet mean volume (Bld) [Entitic vol] 10.5 fL Normal 9.5-13.5 [facility] Comment on above: Performed By: #### C BC #### [facility] [address] [place] [address] Dr. Judd Andrade PLT 270 103/ul Normal 150-450 [facility] Comment on above: Performed By: #### C BC #### [facility] [address] [place] [address] Dr. Judd Andrade RBC 4.81 106/ul Normal 4.20-5.40 [facility] Comment on above: Performed By: #### C BC #### [facility] [address] [place] [address] Dr. Judd Andrade WBC 5.4 103/ul Normal 4.0-11.0 [facility] Comment on above: Performed By: #### C BC #### [facility] [address] [place] [address] Dr. Judd Andrade CRPon 12-30-2021 CRP [Mass/Vol] mg/L Normal <=1.0 [facility] Comment on above: Performed By: #### C BC #### [facility] [address] [place] [address] Dr. Judd Andrade PROF 14(COMP METB)on 022 Albumin [Mass/Vol] 3.9 g/dL Normal 3.4-5.0 [facility] Comment on above: Performed By: #### C BC #### [facility] [address] [place] [address] Dr. Judd Andrade Albumin/Globulin [Mass ratio] 1.0 {ratio} Normal [facility] Comment on above: Performed By: #### C BC #### [facility] [address] [place] [address] Dr. Judd Andrade ALP [Catalytic activity/Vol] 64 U/L Normal 46-116 [facility] Comment on above: Performed By: #### C BC #### [facility] [address] [address] [address] Judd Andrade ALT [Catalytic activity/Vol] 50 U/L Normal 14-59 [facility] Comment on above: Performed By: #### C BC #### [facility] [address] [address] [address] Judd Andrade Anion gap [Moles/Vol] 11.1 mmol/L Normal [facility] Comment on above: Performed By: #### C BC #### [facility] [address] [address] [address] Judd Andrade AST [Catalytic activity/Vol] 28 U/L Normal 15-37 [facility] Comment on above: Performed By: #### C BC #### [facility] [address] [place] [address] Dr. Judd Andrade Bilirubin [Mass/Vol] 0.5 mg/dL Normal 0.2-1.0 [facility] Comment on above: Performed By: #### C BC #### [facility] [address] [place] [address] Dr. Judd Andrade Calcium [Mass/Vol] 8.9 mg/dL Normal 8.5-10.1 [facility] Comment on above: Performed By: #### C BC #### [facility] [address] [place] [address] Dr. Judd Andrade Chloride [Moles/Vol] 101 mmol/L Normal 98-107 [facility] Comment on above: Performed By: #### C BC #### [facility] [address] [place] [address] Dr. Judd Andrade CO2 [Moles/Vol] 29.4 mmol/L Normal 21.0-32.0 [facility] Comment on above: Performed By: #### C BC #### [facility] [address] [place] [address] Dr. Judd Andrade Creatinine [Mass/Vol] 0.73 mg/dL Normal 0.55-1.02 [facility] Comment on above: Performed By: #### C BC #### [facility] [address] [address] [address] Judd Andrade EGFR-AF GUYANESE >60 Normal >=60 [facility] Comment on above: Performed By: #### C BC #### [facility] [address] [place] [address] Dr. Judd Andrade EGFR-NON AF GUYANESE >60 Normal >=60 [facility] Comment on above: Performed By: #### C BC #### [facility] [address] [place] [address] Dr. Judd Andrade Globulin (S) [Mass/Vol] 3.8 g/dL Normal [facility] Comment on above: Performed By: #### C BC #### [facility] [address] [place] [address] Dr. Judd Andrade Glucose [Mass/Vol] 139 mg/dL Critically high 74-106 [facility] Comment on above: Performed By: #### C BC #### [facility] [address] [place] [address] Dr. Judd Andrade Potassium [Moles/Vol] 3.5 mmol/L Normal 3.5-5.1 [facility] Comment on above: Performed By: #### C BC #### [facility] [address] [place] [address] Dr. Judd Andrade Protein [Mass/Vol] 7.7 g/dL Normal 6.4-8.2 [facility] Comment on above: Performed By: #### C BC #### [facility] [address] [place] [address] Dr. Judd Andrade Sodium [Moles/Vol] 138 mmol/L Normal 136-145 [facility] Comment on above: Performed By: #### C BC #### [facility] [address] [place] [address] Dr. Judd Andrade Urea nitrogen [Mass/Vol] 12.0 mg/dL Normal 7.0-18.0 [facility] Comment on above: Performed By: #### C BC #### [facility] [address] [place] [address] Dr. Judd Andrade Urea nitrogen/Creatinine [Mass ratio] 16.4 mg/mg Normal [facility] Comment on above: Performed By: #### C BC #### [facility] [address] [address] [address] Judd Andrade XR CHEST 2 Von 12-29-2021 XR CHEST 2 V STUDY: Chest exam TECHNIQUE:XR CHEST 2 V COMPARISON: Acute abdominal series 02/07/2020 HISTORY: Acute COVID-19 FINDINGS: The lungs are well expanded. No pneumothorax. No pleural effusion. No consolidation. Cardiomediastinal silhouette is normal in size and position. No acute osseous abnormality. IMPRESSION: No acute cardiopulmonary findings. Electronically authenticated by: ARTEMIO DXION Date: 2021-12-29 20:49 Normal [facility] TRYPTASEon 12-27-2021 Tryptase 4.5 ug/L Normal 2.2-13.2 [facility] Comment on above: Performed By: #### C BC #### [facility] [address] [place] [address] Dr. Judd Andrade CBC AUTO DIFFon 12-23-2021 BASO # 0.0 103/ul Normal 0.0-0.1 [facility] Comment on above: Performed By: #### H STROPN, CMP #### [facility] [address] [place] [address] Dr. Judd Andrade Basophils/100 WBC (Bld) 0.7 % Normal 0.2-2.0 [facility] Comment on above: Performed By: #### H STROPN, CMP #### [facility] [address] [place] [address] Dr. Judd Andrade EO # 0.0 103/ul Normal 0.0-0.7 [facility] Comment on above: Performed By: #### H STROPN, CMP #### [facility] [address] [place] [address] Dr. Judd Andrade Eosinophils/100 WBC (Bld) 0.0 % Critically low 0.9-7.0 [facility] Comment on above: Performed By: #### H STROPN, CMP #### [facility] [address] [place] [address] Dr. Judd Andrade Erythrocyte distribution width (RBC) [Ratio] 13.2 % Normal 11.0-15.0 [facility] Comment on above: Performed By: #### H STROPN, CMP #### [facility] [address] [place] [address] Dr. Judd Andrade Hematocrit (Bld) [Volume fraction] 42.1 % Normal 36.0-48.0 [facility] Comment on above: Performed By: #### H STROPN, CMP #### [facility] [address] [place] [address] Dr. Judd Andrade Hemoglobin (Bld) [Mass/Vol] 13.7 g/dL Normal 12.0-16.0 [facility] Comment on above: Performed By: #### H STROPN, CMP #### [facility] [address] [place] [address] Dr. Judd Andrade IG # 0.01 10e3/ul Normal 0.00-0.03 [facility] Comment on above: Performed By: #### H STROPN, CMP #### [facility] [address] [place] [address] Dr. Judd Andrade IG % 0.3 % Normal 0.0-0.5 [facility] Comment on above: Performed By: #### H STROPN, CMP #### [facility] [address] [place] [address] Dr. Judd Andrade LYMPH # 0.7 103/ul Critically low 1.2-3.8 [facility] Comment on above: Performed By: #### H STROPN, CMP #### [facility] [address] [place] [address] Dr. Judd Andrade Lymphocytes/100 WBC (Bld) 24.1 % Normal 20.5-60.0 [facility] Comment on above: Performed By: #### H STROPN, CMP #### [facility] [address] [place] [address] Dr. Judd Andrade MANUAL DIFF REQ NO Normal [facility] Comment on above: Performed By: #### H STROPN, CMP #### [facility] [address] [place] [address] Dr. Judd Andrade MCH (RBC) [Entitic mass] 28.4 pg Normal 26.7-34.0 [facility] Comment on above: Performed By: #### H DEB, CMP #### [facility] [address] [place] [address] Dr. Judd Andrade MCHC (RBC) [Mass/Vol] 32.5 g/dL Normal 29.9-35.2 [facility] Comment on above: Performed By: #### H DEB, CMP #### [facility] [address] [place] [address] Dr. Judd Andrade MCV (RBC) [Entitic vol] 87.2 fL Normal 81.0-99.0 [facility] Comment on above: Performed By: #### H DEB, CMP #### [facility] [address] [place] [address] Dr. Judd Andrade MONO # 0.5 103/ul Normal 0.3-0.8 [facility] Comment on above: Performed By: #### H DEB, CMP #### [facility] [address] [place] [address] Dr. Judd Andrade Monocytes/100 WBC (Bld) 16.9 % Critically high 1.7-12.0 [facility] Comment on above: Performed By: #### H DEB, CMP #### [facility] [address] [place] [address] Dr. Judd Andrade NEUT # 1.8 103/ul Normal 1.4-6.5 [facility] Comment on above: Performed By: #### H DEB, CMP #### [facility] [address] [place] [address] Dr. Judd Andrade Neutrophils/100 WBC (Bld) 58.0 % Normal 43.0-75.0 [facility] Comment on above: Performed By: #### H DEB, CMP #### [facility] [address] [place] [address] Dr. Judd Andrade Platelet mean volume (Bld) [Entitic vol] 9.9 fL Normal 9.5-13.5 [facility] Comment on above: Performed By: #### H TERAPN, CMP #### [facility] [address] [address] [address] Judd Andrade PLT 210 103/ul Normal 150-450 [facility] Comment on above: Performed By: #### H TERAPN, CMP #### [facility] [address] [address] [address] Judd Andrade RBC 4.83 106/ul Normal 4.20-5.40 [facility] Comment on above: Performed By: #### H TERAPN, CMP #### [facility] [address] [place] [address] Dr. Judd Andrade WBC 3.1 103/ul Critically low 4.0-11.0 [facility] Comment on above: Performed By: #### H DEB, CMP #### [facility] [address] [place] [address] Dr. Judd Andrade IRONon 12-23-2021 Iron [Mass/Vol] 35.0 ug/dL Critically low 50.0-170.0 [facility] Comment on above: Performed By: #### C BC #### [facility] [address] [place] [address] Dr. Judd Andrade PROF 14(COMP METB)on 022 Albumin [Mass/Vol] 3.9 g/dL Normal 3.4-5.0 [facility] Comment on above: Performed By: #### C BC #### [facility] [address] [place] [address] Dr. Judd Andrade Albumin/Globulin [Mass ratio] 1.0 {ratio} Normal [facility] Comment on above: Performed By: #### C BC #### [facility] [address] [place] [address] Dr. Judd Andrade ALP [Catalytic activity/Vol] 70 U/L Normal 46-116 [facility] Comment on above: Performed By: #### C BC #### [facility] [address] [place] [address] Dr. Judd Andrade ALT [Catalytic activity/Vol] 43 U/L Normal 14-59 [facility] Comment on above: Performed By: #### C BC #### [facility] [address] [address] [address] Judd Andrade Anion gap [Moles/Vol] 11.5 mmol/L Normal [facility] Comment on above: Performed By: #### C BC #### [facility] [address] [address] [address] Judd Andrade AST [Catalytic activity/Vol] 33 U/L Normal 15-37 [facility] Comment on above: Performed By: #### C BC #### [facility] [address] [address] [address] Judd Andrade Bilirubin [Mass/Vol] 0.3 mg/dL Normal 0.2-1.0 [facility] Comment on above: Performed By: #### C BC #### [facility] [address] [place] [address] Dr. Judd Andrade Calcium [Mass/Vol] 8.9 mg/dL Normal 8.5-10.1 [facility] Comment on above: Performed By: #### C BC #### [facility] [address] [address] [address] Judd Andrade Chloride [Moles/Vol] 101 mmol/L Normal 98-107 [facility] Comment on above: Performed By: #### C BC #### [facility] [address] [place] [address] Dr. Judd Andrade CO2 [Moles/Vol] 31.1 mmol/L Normal 21.0-32.0 [facility] Comment on above: Performed By: #### C BC #### [facility] [address] [address] [address] Judd Andrade Creatinine [Mass/Vol] 0.69 mg/dL Normal 0.55-1.02 [facility] Comment on above: Performed By: #### C BC #### [facility] [address] [address] [address] Judd Andrade EGFR-AF GUYANESE >60 Normal >=60 [facility] Comment on above: Performed By: #### C BC #### [facility] [address] [place] [address] Dr. Judd Andrade EGFR-NON AF GUYANESE >60 Normal >=60 [facility] Comment on above: Performed By: #### C BC #### [facility] [address] [place] [address] Dr. Judd Andrade Globulin (S) [Mass/Vol] 3.8 g/dL Normal [facility] Comment on above: Performed By: #### C BC #### [facility] [address] [place] [address] Dr. Judd Andrade Glucose [Mass/Vol] 103 mg/dL Normal 74-106 [facility] Comment on above: Performed By: #### C BC #### [facility] [address] [place] [address] Dr. Judd Andrade Potassium [Moles/Vol] 3.6 mmol/L Normal 3.5-5.1 [facility] Comment on above: Performed By: #### C BC #### [facility] [address] [place] [address] Dr. Judd Andrade Protein [Mass/Vol] 7.7 g/dL Normal 6.4-8.2 [facility] Comment on above: Performed By: #### C BC #### [facility] [address] [place] [address] Dr. Judd Andrade Sodium [Moles/Vol] 140 mmol/L Normal 136-145 [facility] Comment on above: Performed By: #### C BC #### [facility] [address] [place] [address] Dr. Judd Andrade Urea nitrogen [Mass/Vol] 11.0 mg/dL Normal 7.0-18.0 [facility] Comment on above: Performed By: #### C BC #### [facility] [address] [place] [address] Dr. Judd Andrade Urea nitrogen/Creatinine [Mass ratio] 15.9 mg/mg Normal [facility] Comment on above: Performed By: #### C BC #### [facility] [address] [place] [address] Dr. Judd Andrade PROTIMEon 12-23-2021 INR Coag (PPP) [Relative time] 1.04 {INR} Normal [facility] Comment on above: Performed By: #### H DEB, CMP #### [facility] [address] [place] [address] Dr. Judd Andrade INR GUIDELINES SEE BELOW Normal [facility] Comment on above: Result Comment: PRIETO RED INR: 2.0 - 3.0 CONDITIONS NOT LISTED BELOW 2.5 - 3.5 FOR PROSTHETIC HEART VALVE REPLACEMENT 2.5 - 3.5 RECURRENT THROMBOSIS Performed By: #### H DEB, CMP #### [facility] [address] [place] [address] Dr. Judd Andrade PT Coag (PPP) [Time] 11.2 s Normal 9.0-11.6 [facility] Comment on above: Performed By: #### H DEB, CMP #### [facility] [address] [place] [address] Dr. Judd Andrade PTTon 12-23-2021 aPTT Coag (Bld) [Time] 31.5 s Normal 22.3-36.2 [facility] Comment on above: Performed By: #### H DEB, CMP #### [facility] [address] [place] [address] Dr. Judd Andrade ER URINE PROFILEon 2 Bilirubin Ql (U) Negative Normal NEGATIVE [facility] Comment on above: Performed By: #### Sara BOYD, CMP #### [facility] [address] [place] [address] Dr. Judd Andrade Clarity (U) CLEAR Normal CLEAR [facility] Comment on above: Performed By: #### H DEB, CMP #### [facility] [address] [place] [address] Dr. Judd Andrade Color (U) LT. YELLOW Normal YELLOW [facility] Comment on above: Performed By: #### H DEB, CMP #### [facility] [address] [place] [address] Dr. Judd Andrade ERUAHD A micrscopic examination will be performed if indicated. Normal [facility] Comment on above: Performed By: #### H STROPN, CMP #### [facility] [address] [address] [address] Judd Andrade Glucose Ql (U) Negative Normal NEGATIVE [facility] Comment on above: Performed By: #### H STROPN, CMP #### [facility] [address] [address] [address] Judd Andrade Hemoglobin Ql (U) TRACE-INTACT Abnormal NEGATIVE [facility] Comment on above: Performed By: #### H STROPN, CMP #### [facility] [address] [address] [address] Judd Andrade Ketones Ql (U) Negative Normal NEGATIVE [facility] Comment on above: Performed By: #### H STROPN, CMP #### [facility] [address] [address] [address] Judd Andrade LEUKOCYTES Negative Normal NEGATIVE [facility] Comment on above: Performed By: #### H STROPN, CMP #### [facility] [address] [address] [address] Judd Andrade Nitrite Ql (U) Negative Normal NEGATIVE [facility] Comment on above: Performed By: #### H STROPN, CMP #### [facility] [address] [address] [address] Judd Andrade pH (U) 6.0 [pH] Normal 5-9 [facility] Comment on above: Performed By: #### H STROPN, CMP #### [facility] [address] [address] [address] Judd Andrade SPEC GRAVITY 1.005 Normal 1.005-<=1.025 [facility] Comment on above: Performed By: #### H STROPN, CMP #### [facility] [address] [place] [address] Dr. Judd Andrade UA PROTEIN Negative Normal NEGATIVE/ TRACE [facility] Comment on above: Performed By: #### H STROPN, CMP #### [facility] [address] [address] [address] Judd Andrade UR MICRO IND INDICATED Normal [facility] Comment on above: Performed By: #### H STROPN, CMP #### [facility] [address] [place] [address] Dr. Judd Andrade Urobilinogen Qn (U) 0.2 {Carol'U}/dL Normal 0.2 - 1. 0 [facility] Comment on above: Performed By: #### H STROPN, CMP #### [facility] [address] [place] [address] Dr. Judd Andrade URINE MICROSCOPIC ONLYon BACTERIA NONE SEEN Normal NONE SEEN [facility] Comment on above: Performed By: #### H STROPN, CMP #### [facility] [address] [place] [address] Dr. Judd Andrade Bacteria identified Cx Nom (U) NOT INDICATED Normal [facility] Comment on above: Performed By: #### H STROPN, CMP #### [facility] [address] [place] [address] Dr. Judd Andrade CAST NONE SEEN Normal NONE SEEN [facility] Comment on above: Performed By: #### H STROPN, CMP #### [facility] [address] [place] [address] Dr. Judd Andrade Crystals LM Nom (Urine sed) NONE SEEN Normal NONE SEEN [facility] Comment on above: Performed By: #### H STROPN, CMP #### [facility] [address] [place] [address] Dr. Judd Andrade Epithelial cells LM Ql (Urine sed) FEW Abnormal NONE SEEN /RARE [facility] Comment on above: Performed By: #### H STROPN, CMP #### [facility] [address] [place] [address] Dr. Judd Andrade MUCOUS NONE SEEN Normal NONE SEEN [facility] Comment on above: Performed By: #### H STROPN, CMP #### [facility] [address] [place] [address] Dr. Judd Andrade RBC 0-2 Normal 0-2 [facility] Comment on above: Performed By: #### H STROPN, CMP #### [facility] [address] [place] [address] Dr. Judd Andrade WBC NONE SEEN Normal NONE SEEN [facility] Comment on above: Performed By: #### H STRO, [facility] #### [facility] [address] [address] [address] Judd Andrade Vital Signs Date Time Vital Sign Value Performing Clinician Briana muñoz 12-30-2023 13:48-0400 Blood Pressure Location Bessieje Gong [facility] 12-30-2023 13:48-0400 Diastolic blood pressure 82 mm[Hg] Bessie Galea [facility] 12-30-2023 13:48-0400 Heart rate 80 /min Bessie Galea [facility] 12-30-2023 13:48-0400 Respiratory rate 16 /min Bessie Reubenea [facility] 12-30-2023 13:48-0400 Systolic blood pressure 117 mm[Hg] Bessie Galea [facility] Encounters Encounter Date Encounter Type Care Provider Facility Start: 01-07-2024 End: 01-07-2024 ambulatory MD John Porter Work Phone: [facility] Work Phone: Start: 01-07-2024 End: 01-07-2024 Departed Referred MD John Porter Work Phone: [facility] Start: 01-03-2024 End: 01-03-2024 ambulatory KATIE RUST Not Available Start: 12-30-2023 End: 12-30-2023 ambulatory Bessie Gong Facility:[facility] Start: 12-30-2023 End: 12-30-2023 Patient encounter procedure Bessievicki Gong [facility] Start: 12-21-2023 End: 12-21-2023 ambulatory NATALIE TINSLEY Not Available Start: 10-04-2023 End: 10-04-2023 ambulatory KATIE RUST Not Available Start: 06-30-2023 End: 06-30-2023 ambulatory KATIE JUANJOSE Not Available Start: 06-24-2023 End: 06-24-2023 ambulatory VALE HI Not Available Start: 03-23-2023 End: 03-23-2023 ambulatory KATIE RUST Not Available Start: 09-24-[address] JOHN [...] response examination DR JOHN PORTER . [facility] Start: 06-26-2022 End: 06-27-[address] JOHN [...] Detail Performing Clinician Start: 10-17-2018 Cystourethroscopy wi dilation of urethral stricture Bessie Galea Appendectomy Bessie Galea History of cholecystectomy A lysha Galea Tonsillectomy Bessie Galea Immunizations Immunization Date Immunization Notes Care Provider Mukesh merritt 10-05-2022 tetanus toxoid, redu heide diphtheria toxoid, and acellular pertussis vaccine, adsorbed Bessie Galea [facility] Payers Date Payer Category Payer Self-pay [id number] 2023 Unknown [id number] 1965 Unknown [id number] 2.16.84 [id number] 1965 Unknown [id number] 2.16.84 [id number] 1965 Unknown [id number] 2.16.84 [id number] 1965 Unknown [id number] 2.16.84 [id number] 1965 Unknown [id number] 2.16.84 [id number] 1965 Unknown [id number] 2.16.84 [id number] 1965 Unknown [id number] 2.16.84 [id number] 1965 Unknown [id number] 2.16.84 [id number] 1965 Unknown [id number] 2.16.84 [id number] 1965 Unknown [id number] 2.16.84 [id number] 1965 Unknown [id number] 2.16.84 [id number] 1965 Unknown [id number] 2.16.84 [id number] 1965 Unknown [id number] 2.16.84 [id number] 1965 Unknown [id number] 2.16.84 0.1.124792.3.579.2.593 1965 Unknown [id number] 2.16.84 0.1.194761.3.579.2.593 1965 Unknown [id number] 2.16.84 0.1.378911.3.579.2.593 1965 Unknown [id number] 2.16.84 0.1.601946.3.579.2.593 1965 Unknown [id number] 2.16.84 0.1.173317.3.579.2.593 1965 Unknown [id number] 2.16.84 0.1.263935.3.579.2.593 1965 Unknown [id number] 2.16.84 0.1.685791.3.579.2.593 1965 Unknown [id number] 2.16.84 0.1.440567.3.579.2.593 1965 Unknown [id number] 2.16.84 0.1.490084.3.579.2.593 1965 Unknown [id number] 2.16.84 0.1.346435.3.579.2.593 1965 Unknown [id number] 2.16.84 0.1.914517.3.579.2.593 1965 Unknown [id number] 2.16.84 0.1.175073.3.579.2.1259 1965 Unknown [id number] 2.16.84 0.1.429382.3.579.2.1259 1965 Unknown [id number] 2.16.84 0.1.987586.3.579.2.1259 1965 Unknown [id number] 2.16.84 0.1.141367.3.579.2.1259 1965 Unknown [id number] 2.16.84 0.1.774671.3.579.2.1259 1965 Unknown [id number] 2.16.840 .1.613497.3.579.2.1259 1965 Unknown [id number] 2.16.8 40.1.931475.3.579.2.727 1959 Self-pay [id number] 1959 Unknown [id number] 1959 Unknown [id number] Unknown [id number] 2.16.8 40.1.558760.3.579.2.531 Social History Date Type Detail Facility Start: 12-30-2023 Tobacco smoking status Ex-smoker (fi nding) [facility] Tobacco smoking status Never [facility] Sex Assigned At Female [facility] Start: 09-05-2013 Tobacco smoking stat us MNIS Never smoked tobacco (finding) [facility] Start: 1965 Sex Assigned At Female Rashida [facility] [place] Functional Status Date Assessment Result Facility 12-30-2023 Functional Status N/A [facility] Discharge instructions 12-30-2023 Note Date & [...] provider. Document Revised: 08/21/2021 Document Reviewed: 08/21/2021 [employer] Patient Education 2023 [employer] Follow Up Care 12/02/2023 13:46:26 With:Farideh BARRERA, Bessie Modi, URL Address: When: Unknown Comments:pending imaging and after PFPT [facility] Clinical Note 12-30-2023 Note Date & Type [...] provider. Document Revised: 08/21/2021 Document Reviewed: 08/21/2021 [employer] Patient Education ? 2023 [employer] [facility] Evaluation + Plan note Note Date & Type Note Facility Evaluation + Plan note No data available for this section [facility] Evaluation note Note Date & Type Note Facility Evaluation note No assessment information [facility] Work Phone: Progress note Note Date & Type Note Facility Progress note No data available for this section [facility] Summary Purpose Family History No Family History Records Found Relationship Condition Age at Onset Recorded Date/T lópez father Heart disease Unknown mother Unknown History of stroke Unknown Advance Directives No Advanced Directives Records Found Advance Directive Response Recorded Date/ Time Advance Directives No July 15, 019 11:52am Additional Source Comments INFORMATION SOURCE (unrecogn ized section and content) DATE CREATED AUTHOR 10/02/2022 [facility] DATE CREATED AUTHOR AUTHOR'S ORGANIZ ATION 01/04/2024 [facility] DATE CREATED AUTHOR AUTHOR'S ORGANIZ ATION 01/09/2024 [facility] DATE CREATED AUTHOR AUTHOR'S ORGANIZ ATION 01/14/2024 [facility] Patient Care team informatio n (unrecognized section and content) Team Status: Active Member Role Status Dates John Porter MD Primary Care Provider Active Team Status: Inactive Member Role Status Dates John Porter MD Primary Care Provider Active Start: January 07, 2024 End: January 07, 2024 Katie Rust DO Attending Provider Active Start : January 07, 2024 End: January 07, 2024 Goals (unrecognized section and content) Goals may be documented in a n alternate section FOR RECORDS PERTAINING TO PATIENTS WHO ARE [...] BE BASED ON THE PRIMARY CLINICAL RECORDS. [employer] provides no warranty or guarantee of the accuracy or completeness of information in this document.
== END 2024-01-14 13:42 | disposition home or self-care (01) ==
LOC: CARD 13:42
PROVIDERS: PCP Family Medicine; Visit Provider Family Medicine
DX: I10 Essential (primary) hypertension (principal)
CPT/HCPCS: 93270

== ENCOUNTER 2024-01-29 06:59 | Outpatient (OUT) | payer OTHER, SELFPAY ==
--- OUTSIDE RECORDS SUMMARY | 2024-01-29 07:02 | XMS_ITS | CCD ---
Author Organization [facility] Care Team Providers Care Operations Manager Assistant Name Role Phone ABELINOY ., DR LOPEZ [...] Unavailable JUANJOSE ., DR WILSON Attending Unavailable [place], DR ELLYN Dougherty Consulting Unavailable HOY ., [...] Unavailable John Porter Primary Care Physician [phone] [place]E [place] Attending Unavailable RALF RENODN Referring Unavailable GENI RUSTY Attending Unavailable JUANJOSE, KATIE Attending Unavailable JUANJOSE, KATIE Attending Unavailable NATALIE TINSLEY Attending Unavailable JUANJOSE, KATIE Attending Unavailable MD John Porter Primary Care Provider [phone] DO Katie Rust Attending Provider Bessie Gong Attending Unavailable John Porter Primary Care Unavailable Katie Rust Attending Unavailable Katie Rust Admitting Unavailable Allergies Allergy Classification Reported Allergen(s) Allergy Type Date of Onset Reaction(s) Facility (1 source) Azithromycin Drug Allergy 12-21-19 22 [facility] Repository (3 sources) Imipramine Drug Allergy 10-06-19 13 hallucinations [facility] Repository (2 sources) Sulfonamides (Antibiotic) Drug allergy (disorder) 10-06-19 13 [facility] Repository (2 sources) E.E.S. Drug allergy (disorder) 10-06-19 13 [facility] Repository (2 sources) Erythromycin; Translations: [erythromycin] Drug Allergy Unknown (qualifier value) [facility] (2 sources) Imipramine; Translations: [imipramine] Drug Allergy Unknown (qualifier value) [facility] (2 sources) Sulfonamides (Antibiotic); Translations: [sulfa drugs] Drug allergy Unknown (qualifier value) [facility] (2 sources) Sulfonamides (Antibiotic); Translations: [Sulfa (Sulfonamide Antibiotics)] Allergy to substance 12-02-19 [facility] (2 sources) erythromycin base; Translations: [erythromycin base] Allergy to substance 12-02-19 [facility] (1 source) Imipramine Drug Allergy 12-02-19 [facility] Repository Problems Active Problems Problem [...] Episodic Other aftercare (4 sources) 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; Translations: [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] Onset: 12-23-2021 Episodic Other [...] Test Name Value Interpretation Reference Range Facility [place] 01-07-2024 L Specimen: [id number] Received: 01/07/241349 Status: LAWSON Guzman Num: [id number] Spec Type: Surgical Subm Dr: Katie Rust Tissues: A Endometrial Polyp (ENOMETRIAL POLYP AND CURETTI) Procedures: HE/2, Gross/Micro L4 Age/ Patient Sex Location Account Attending Physician Yulia Dorsey 58/F LABELL [id number] Katie Rust SPEC NUM: [id number] RECD: 01/07/24 STATUS: LAWSON MEGAN NUM: [id number] TIMOTHY: 01/07/[address]: Katie Rust ENTERED: 01/07/24-1351 [facility] DR: Cristhain,Lab SPEC TYPE: Surgical DEPT: BIANCA VANN ENTERED BY: [id number] RECV BY: [id number] ORDERED: HE/2, Gross/Micro L4 ORDERED: HE/2, Gross/Micro [...] is entirely submitted cassette A1. CPT Codes 91224 -------- -------- Specimen: [id number] Received: 01/07/24 Status: LAWSON Megan Num: [id number] Spec Type: Surgical Subm Dr: Katie Rust Tissues: A Endometrial Polyp (ENOMETRIAL POLYP AND CURETTI) Procedures: HE/2, Gross/Micro L4 -------- Patient: WillianGen licharenee Arrieta [id number] (Continued) -------- Signed (signature on file) Tammie Mcclellan MD 01/13/24 1606 Normal [facility] Patient Letter FTon 2023 Patient [place] [facility] [place] [facility] January 07, 2024 YULIA DORSEY [address] [place] [address] : 1965 Dear Yulia Dorsey, We have been trying to reach you with no success. It is important that you return our call upon receiving this letter. Also, at the time of your call, please provide us with your current information. Thank you for your prompt attention to this matter. Sincerely, [facility] [address] [place] [address] [facility] Ambulatory Visit Summaryon 0 12-30-2023 Ambulatory [...] you for choosing us for your care. [facility] Provider Letteron 12-30-2023 Provider Letter Provider Letter December 30, 2023 [address]Y [address] [place], [place] [address] [address] : 1965 To Whom It May Concern, Please excuse above patient from work. 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 Kidney stones (N20.0: Calculus of kidney) [...] now. -K (more content not included)... Normal [facility] Comment on above: Result Comment: Elec tronically Signed By: Farideh BARRERA, Bessie Modi\.br\Date and Time Signed: 12/30/23 15:22 EDT MG MAMM DX 3D RT CADon 09-22 MG MAMM DX 3D RT CAD Patient: GEN RENEE DORSEY. Exam Date: 09/22/2022 : 1965 Gender:F Ordering : DR KATIE RUST . Admission #: [id number] Family : Order #: [id number] CLICK HERE TO VIEW EXAM RADIOLOGY REPORT [...] at age 40. LOCATION: [facility] BREAST COMPOSITION: Almost entirely fatty. [...] on 09/22/2022 at 15:03 Normal [facility] US BREAST RIGHT LIMITEDon US BREAST RIGHT LIMITED Patient: YULIA DORSEY. Exam Date: 09/22/2022 : 1965 Gender:F Ordering : DR KATIE RUST . Admission #: [id number] Family : Order #: [id number] CLICK HERE TO VIEW EXAM RADIOLOGY REPORT [...] at age 40. LOCATION: [facility] BREAST COMPOSITION: Almost entirely fatty. [...] on 09/22/2022 at 15:03 Normal [facility] US ST HEAD_NECKon 08-31-2022 [...] by: GABO STRONG Date: 2022-08-31 08:09 Normal [facility] US PELVIS AND TRANSVAGon US PELVIS [...] Date: 2022-07-29 06:32 Normal [facility] INSULINon 07-04-2022 Insulin 6.2 uIU/mL Normal 2.6-24.9 [facility] Comment on above: Performed By: #### H DEB, CMP #### [facility] [address] [place] [address] Dr. Judd Andrade CBC AUTO DIFFon 07-03-2022 BASO # 0.0 103/ul Normal 0.0-0.1 [facility] Comment on above: Performed By: #### C BC #### [facility] [address] [place] [address] Dr. Judd Andrade Basophils/100 WBC (Bld) 1.1 % Normal 0.2-2.0 [facility] Comment on above: Performed By: #### C BC #### [facility] [address] [place] [address] Dr. Judd Andrade EO # 0.1 103/ul Normal 0.0-0.7 [facility] Comment on above: Performed By: #### C BC #### [facility] [address] [place] [address] Dr. Judd Andrade Eosinophils/100 WBC (Bld) 3.6 % Normal 0.9-7.0 [facility] Comment on above: Performed By: #### C BC #### [facility] [address] [place] [address] Dr. Judd Andrade Erythrocyte distribution width (RBC) [Ratio] 13.6 % Normal 11.0-15.0 [facility] Comment on above: Performed By: #### C BC #### [facility] [address] [address] [address] Judd Andrade Hematocrit (Bld) [Volume fraction] 41.8 % Normal 36.0-48.0 [facility] Comment on above: Performed By: #### C BC #### [facility] [address] [place] [address] Dr. Judd Andrade Hemoglobin (Bld) [Mass/Vol] 13.5 g/dL Normal 12.0-16.0 [facility] Comment on above: Performed By: #### C BC #### [facility] [address] [place] [address] Dr. Judd Andrade IG # 0.01 10e3/ul Normal 0.00-0.03 [facility] Comment on above: Performed By: #### C BC #### [facility] [address] [place] [address] Dr. Judd Andrade IG % 0.3 % Normal 0.0-0.5 [facility] Comment on above: Performed By: #### C BC #### [facility] [address] [place] [address] Dr. Judd Andrade LYMPH # 1.4 103/ul Normal 1.2-3.8 [facility] Comment on above: Performed By: #### C BC #### [facility] [address] [place] [address] Dr. Judd Andrade Lymphocytes/100 WBC (Bld) 38.4 % Normal 20.5-60.0 [facility] Comment on above: Performed By: #### C BC #### [facility] [address] [place] [address] Dr. Judd Andrade MANUAL DIFF REQ NO Normal [facility] Comment on above: Performed By: #### C BC #### [facility] [address] [place] [address] Dr. Judd Andrade MCH (RBC) [Entitic mass] 28.2 pg Normal 26.7-34.0 [facility] Comment on above: Performed By: #### C BC #### [facility] [id number] Judd Andrade MCHC (RBC) [Mass/Vol] 32.3 g/dL Normal 29.9-35.2 [facility] Comment on above: Performed By: #### C BC #### [facility] [id number] Judd Andrade MCV (RBC) [Entitic vol] 87.4 fL Normal 81.0-99.0 [facility] Comment on above: Performed By: #### C BC #### [facility] [address] [address] [address] Judd Andrade MONO # 0.4 103/ul Normal 0.3-0.8 [facility] Comment on above: Performed By: #### C BC #### [facility] [address] [place] [address] Dr. Judd Andrade Monocytes/100 WBC (Bld) 10.4 % Normal 1.7-12.0 [facility] Comment on above: Performed By: #### C BC #### [facility] [address] [place] [address] Dr. Judd Andrade NEUT # 1.7 103/ul Normal 1.4-6.5 [facility] Comment on above: Performed By: #### C BC #### [facility] [address] [place] [address] Dr. Judd Andrade Neutrophils/100 WBC (Bld) 46.2 % Normal 43.0-75.0 [facility] Comment on above: Performed By: #### C BC #### [facility] [address] [place], [place] [id number] Dr. Judd Andrade Platelet mean volume (Bld) [Entitic vol] 9.6 fL Normal 9.5-13.5 [facility] Comment on above: Performed By: #### C BC #### [facility] [address] [place] [address] Dr. Judd Andrade PLT 246 103/ul Normal 150-450 [facility] Comment on above: Performed By: #### C BC #### [facility] [address] [address] [address] Judd Andrade RBC 4.78 106/ul Normal 4.20-5.40 [facility] Comment on above: Performed By: #### C BC #### [facility] [address] [address] [address] Judd Andrade WBC 3.7 103/ul Critically low 4.0-11.[address] [facility] Comment on above: Performed By: #### C BC #### [facility] [address] [address] [address] Judd Andrade FREE THYROXINE INDEX T7on FTI 3.20 Normal 1.30-4.50 [facility] Comment on above: Performed By: #### T 7, LIPID, TSH, CMP #### [facility] [address] [place] [address] Dr. Judd Andrade T3U 36.0 % Normal 30.0-39.0 [facility] Comment on above: Performed By: #### T 7, LIPID, TSH, CMP #### [facility] [address] [place] [address] Dr. Judd Andrade T4 [Mass/Vol] 8.90 ug/dL Normal 4.80-13.90 [facility] Comment on above: Performed By: #### T 7, LIPID, TSH, CMP #### [facility] [address] [place] [address] Dr. Judd Andrade GLYCOHEMOGLOBIN A1Con 2022 ADA RECOMMENDATION SEE BELOW Normal [facility] Comment on above: Result Comment: ADA RECOMMENDED LIMIT 4.0 - 6.0 ADA THERAPEUTIC TARGET < 7.0 ACTION SUGGESTED > 7.0 Performed By: #### C BC #### [facility] [address] [place] [address] Dr. Judd Andrade Glucose [Mass/Vol] 120 mg/dL Normal [facility] Comment on above: Performed By: #### C BC #### [facility] [address] [place] [address] Dr. Judd Andrade HbA1c (Bld) [Mass fraction] 5.8 % Normal 4.5-6.2 [facility] Comment on above: Performed By: #### C BC #### [facility] [address] [address] [address] Judd Andrade IRONon 07-03-2022 Iron [Mass/Vol] 67.0 ug/dL Normal 50.0-170.0 [facility] Comment on above: Performed By: #### V ITAD, IRON #### [facility] [address] [address] [address] Judd Andrade LIPID PROFILEon 07-03-2022 CHOL-HDL RATIO NORM SEE BELOW Normal [facility] Comment on above: Result Comment: 3.3 - 4.4 LOW RISK 4.4 - 7.1 AVERAGE RISK 7.1 - 11.0 MODERATE RISK >11.0 HIGH RISK Performed By: #### T 7, LIPID, TSH, CMP #### [facility] [address] [address] [address] Judd Andrade Cholesterol [Mass/Vol] 216 mg/dL Critically high <=200 [facility] Comment on above: Performed By: #### T 7, LIPID, TSH, CMP #### [facility] [address] [address] [address] Judd Andrade Cholesterol in HDL [Mass/Vol] 87 mg/dL Critically high 40-60 [facility] Comment on above: Performed By: #### T 7, LIPID, TSH, CMP #### [facility] [address] [address] [address] Judd Andrade Cholesterol in LDL [Mass/Vol] 124.2 mg/dL Normal [facility] Comment on above: Performed By: #### T 7, LIPID, TSH, CMP #### [facility] [address] [address] [address] Judd Andrade Cholesterol.total/Ch olesterol in HDL [Mass ratio] 2.5 {ratio} Normal [facility] Comment on above: Performed By: #### T 7, LIPID, TSH, CMP #### [facility] [address] [address] [address] Judd Andrade HDL NORMAL > or = 60 mg/dl - LO W CARDIOVASCULAR RISK <40 mg/dl - HIGH CARDIOVASCULAR RISK Normal [facility] Comment on above: Performed By: #### T 7, LIPID, TSH, CMP #### [facility] [address] [address] [address] Judd Andrade LDL CALC NORMAL SEE BELOW Normal [facility] Comment on above: Result Comment: <100 mg/dl OPTIMAL 100 - 129 mg/dl NEAR OR ABOVE OPTIMAL 130 - 159 mg/dl BORDERLINE HIGH 160 - 189 mg/dl HIGH >190 mg/dl VERY HIGH Performed By: #### T 7, LIPID, TSH, CMP #### [facility] [address] [address] [address] Judd Andrade Triglyceride [Mass/Vol] 24 mg/dL Normal <=150 [facility] Comment on above: Performed By: #### T 7, LIPID, TSH, CMP #### [facility] [address] [address] [address] Judd Andrade VLDL CALC 4.8 mg/dL Normal [facility] Comment on above: Performed By: #### T 7, LIPID, TSH, CMP #### [facility] [address] [address] [address] Judd Andrade PROF 14(COMP METB)on 023 Albumin [Mass/Vol] 4.0 g/dL Normal 3.4-5.0 [facility] Comment on above: Performed By: #### T 7, LIPID, TSH, CMP #### [facility] [address] [address] [address] Judd Andrade Albumin/Globulin [Mass ratio] 1.1 {ratio} Normal [facility] Comment on above: Performed By: #### T 7, LIPID, TSH, CMP #### [facility] [address] [address] [address] Judd Andrade ALP [Catalytic activity/Vol] 78 U/L Normal 46-116 [facility] Comment on above: Performed By: #### T 7, LIPID, TSH, CMP #### [facility] [address] [address] [address] Judd Andrade ALT [Catalytic activity/Vol] 29 U/L Normal 14-59 [facility] Comment on above: Performed By: #### T 7, LIPID, TSH, CMP #### [facility] [address] [address] [address] Judd Andrade Anion gap [Moles/Vol] 5.6 mmol/L Normal [facility] Comment on above: Performed By: #### T 7, LIPID, TSH, CMP #### [facility] [address] [address] [address] Judd Andrade AST [Catalytic activity/Vol] 23 U/L Normal 15-37 [facility] Comment on above: Performed By: #### T 7, LIPID, TSH, CMP #### [facility] [address] [place] [address] Dr. Judd Andrade Bilirubin [Mass/Vol] 0.5 mg/dL Normal 0.2-1.0 [facility] Comment on above: Performed By: #### T 7, LIPID, TSH, CMP #### [facility] [address] [place] [address] Dr. Judd Andrade Calcium [Mass/Vol] 8.9 mg/dL Normal 8.5-10.1 [facility] Comment on above: Performed By: #### T 7, LIPID, TSH, CMP #### [facility] [address] [place] [address] Dr. Judd Andrade Chloride [Moles/Vol] 105 mmol/L Normal 98-107 [facility] Comment on above: Performed By: #### T 7, LIPID, TSH, CMP #### [facility] [address] [place] [address] Dr. Judd Andrade CO2 [Moles/Vol] 32.0 mmol/L Normal 21.0-32.0 [facility] Comment on above: Performed By: #### T 7, LIPID, TSH, CMP #### [facility] [address] [place] [address] Dr. Judd Andrade Creatinine [Mass/Vol] 0.52 mg/dL Critically low 0.55-1.02 [facility] Comment on above: Performed By: #### T 7, LIPID, TSH, CMP #### [facility] [address] [address] [address] Judd Andrade EGFR-AF NEW ZEALANDER >60 Normal >=60 [facility] Comment on above: Performed By: #### T 7, LIPID, TSH, CMP #### [facility] [address] [address] [address] Judd Andrade EGFR-NON AF NEW ZEALANDER >60 Normal >=60 [facility] Comment on above: Performed By: #### T 7, LIPID, TSH, CMP #### [facility] [address] [address] [address] uJdd Andrade Globulin (S) [Mass/Vol] 3.6 g/dL Normal [facility] Comment on above: Performed By: #### T 7, LIPID, TSH, CMP #### [facility] [address] [address] [address] Judd Andrade Glucose [Mass/Vol] 89 mg/dL Normal 74-106 [facility] Comment on above: Performed By: #### T 7, LIPID, TSH, CMP #### [facility] [address] [address] [address] Judd Andrade Potassium [Moles/Vol] 4.2 mmol/L Normal 3.5-5.1 [facility] Comment on above: Performed By: #### T 7, LIPID, TSH, CMP #### [facility] [address] [address] [address] Judd Andrade Protein [Mass/Vol] 7.6 g/dL Normal 6.4-8.2 [facility] Comment on above: Performed By: #### T 7, LIPID, TSH, CMP #### [facility] [address] [address] [address] Judd Andrade Sodium [Moles/Vol] 139 mmol/L Normal 136-145 [facility] Comment on above: Performed By: #### T 7, LIPID, TSH, CMP #### [facility] [address] [address] [address] Judd Andrade Urea nitrogen [Mass/Vol] 11.0 mg/dL Normal 7.0-18.0 [facility] Comment on above: Performed By: #### T 7, LIPID, TSH, CMP #### [facility] [address] [address] [address] Judd Andrade Urea nitrogen/Creatinine [Mass ratio] 21.2 mg/mg Normal [facility] Comment on above: Performed By: #### T 7, LIPID, TSH, CMP #### [facility] [address] [address] [address] Judd Andrade TSHon 07-03-2022 TSH 1.037 uIU/mL Normal 0.358-3.740 [facility] Comment on above: Performed By: #### T 7, LIPID, TSH, CMP #### [facility] [address] [place] [address] Dr. Judd Andrade VITAMIN D 25 OHon 07-03-2022 VIT D 25-OH 32.8 ng/mL Normal [facility] Comment on above: Performed By: #### V CARMELO, IRON #### [facility] [address] [place] [address] Dr. Judd Andrade VIT D RANGES SEE BELOW Normal [facility] Comment on above: Result Comment: <20 ng/mL Vit D deficient 20 - <30 ng/mL Vit D insufficient 30 - 100 ng/mL Vit D sufficient >100 ng/mL Potential Toxicity Performed By: #### V CARMELO, IRON #### [facility] [address] [place] [address] Dr. Judd Andrade BORDETELLA PERTUSSIS AB IGGo n 06-30-2022 B pertussis IgG Ab 3.88 index Invalid Interpretation Code 0.00-0.94 [facility] Comment on above: Result Comment: Clie nt Requested Flag Negative <0.95 Equivocal 0.95 - 1.04 Positive >1.04 Performed By: #### C BC #### [facility] [address] [place] [address] Dr. Judd Andrade BORDETELLA PERTUSSIS AB IGMo n 06-30-2022 B pertussis IgM Ab <1.0 Normal 0.0-0.9 [facility] Comment on above: Result Comment: Nega tive <1.0 Borderline 1.0 - 1.1 Positive >1.1 Performed By: #### H STROPN, CMP #### [facility] [address] [place] [address] Dr. Judd Andrade MPLRC-0-FDOGMXRLOUFyx 2022 Wtrar-2-Hdbkljgzbwu, Serum 158 mg/dL Normal 101-187 [facility] Comment on above: Performed By: #### C BC #### [facility] [address] [place] [address] Dr. Judd Andrade CBC AUTO DIFFon 06-03-2022 BASO # 0.0 103/ul Normal 0.0-0.1 [facility] Comment on above: Performed By: #### H STROPN, CMP #### [facility] [address] [place] [address] Dr. Judd Andrade Basophils/100 WBC (Bld) 0.6 % Normal 0.2-2.0 [facility] [facility] Comment on above: Performed By: #### H STROPN, CMP #### [facility] [address] [place] [address] Dr. Judd Andrade EO # 0.0 103/ul Normal 0.0-0.7 [facility] Comment on above: Performed By: #### H STROPN, CMP #### [facility] [address] [place] [address] Dr. Judd Andrade Eosinophils/100 WBC (Bld) 0.6 % Critically low 0.9-7.0 [facility] Comment on above: Performed By: #### H STROPN, CMP #### [facility] [address] [place] [address] Dr. Judd Andrade Erythrocyte distribution width (RBC) [Ratio] 13.5 % Normal 11.0-15.0 [facility] Comment on above: Performed By: #### H STROPN, CMP #### [facility] [address] [place] [address] Dr. Judd Andrade Hematocrit (Bld) [Volume fraction] 42.4 % Normal 36.0-48.0 [facility] Comment on above: Performed By: #### H STROPN, CMP #### [facility] [address] [address] [address] Judd Andrade Hemoglobin (Bld) [Mass/Vol] 13.4 g/dL Normal 12.0-16.0 [facility] Comment on above: Performed By: #### H STROPN, CMP #### [facility] [address] [address] [address] Judd Andrade IG # 0.01 10e3/ul Normal 0.00-0.03 [facility] Comment on above: Performed By: #### H STROPN, CMP #### [facility] [address] [place] [address] Dr. Judd Andrade IG % 0.2 % Normal 0.0-0.5 [facility] Comment on above: Performed By: #### H STROPN, CMP #### [facility] [address] [place] [address] Dr. Judd Andrade LYMPH # 1.1 103/ul Critically low 1.2-3.8 [facility] Comment on above: Performed By: #### H STROPN, CMP #### [facility] [address] [place] [address] Dr. Judd Andrade Lymphocytes/100 WBC (Bld) 23.5 % Normal 20.5-60.0 [facility] Comment on above: Performed By: #### H STROPN, CMP #### [facility] [address] [place] [address] Dr. Judd Andrade MANUAL DIFF REQ NO Normal [facility] Comment on above: Performed By: #### H STROPN, CMP #### [facility] [address] [address] [address] Judd Andrade MCH (RBC) [Entitic mass] 28.9 pg Normal 26.7-34.0 [facility] Comment on above: Performed By: #### H STROPN, CMP #### [facility] [address] [place] [address] Dr. Judd Andrade MCHC (RBC) [Mass/Vol] 31.6 g/dL Normal 29.9-35.2 [facility] Comment on above: Performed By: #### H STROPN, CMP #### [facility] [address] [address] [address] Judd Andrade MCV (RBC) [Entitic vol] 91.6 fL Normal 81.0-99.0 [facility] Comment on above: Performed By: #### H STROPN, CMP #### [facility] [address] [address] [address] Judd Andrade MONO # 0.8 103/ul Normal 0.3-0.8 [facility] Comment on above: Performed By: #### H STROPN, CMP #### [facility] [address] [place] [address] Dr. Judd Andrade Monocytes/100 WBC (Bld) 16.5 % Critically high 1.7-12.0 [facility] Comment on above: Performed By: #### H STROPN, CMP #### [facility] [address] [place] [address] Dr. Judd Andrade NEUT # 2.7 103/ul Normal 1.4-6.5 [facility] Comment on above: Performed By: #### H STROPN, CMP #### [facility] [address] [place] [address] Dr. Judd Andrade Neutrophils/100 WBC (Bld) 58.6 % Normal 43.0-75.0 [facility] Comment on above: Performed By: #### H STROPN, CMP #### [facility] [address] [place] [address] Dr. Judd Andrade Platelet mean volume (Bld) [Entitic vol] 9.8 fL Normal 9.5-13.5 [facility] Comment on above: Performed By: #### H STROPN, CMP #### [facility] [address] [place] [address] Dr. Judd Andrade PLT 252 103/ul Normal 150-450 [facility] Comment on above: Performed By: #### H STROPN, CMP #### [facility] [address] [place] [address] Dr. Judd Andrade RBC 4.63 106/ul Normal 4.20-5.40 [facility] Comment on above: Performed By: #### H DEB, CMP #### [facility] [address] [address] [address] Judd Andrade WBC 4.7 103/ul Normal 4.0-11.0 [facility] Comment on above: Performed By: #### H DEB, CMP #### [facility] [address] [place] [address] Dr. Judd Andrade PROF 14(COMP METB)on 023 Albumin [Mass/Vol] 4.0 g/dL Normal 3.4-5.0 [facility] Comment on above: Performed By: #### H DEB, CMP #### [facility] [address] [place] [address] Dr. Judd Andrade Albumin/Globulin [Mass ratio] 1.0 {ratio} Normal [facility] Comment on above: Performed By: #### H DEB, CMP #### [facility] [address] [place] [address] Dr. Judd Andrade ALP [Catalytic activity/Vol] 77 U/L Normal 46-116 [facility] Comment on above: Performed By: #### H DEB, CMP #### [facility] [address] [place] [address] Dr. Judd Andrade ALT [Catalytic activity/Vol] 33 U/L Normal 14-59 [facility] Comment on above: Performed By: #### H DEB, CMP #### [facility] [address] [place] [address] Dr. Judd Andrade Anion gap [Moles/Vol] 8.0 mmol/L Normal [facility] Comment on above: Performed By: #### H DEB, CMP #### [facility] [address] [place] [address] Dr. Judd Andrade AST [Catalytic activity/Vol] 28 U/L Normal 15-37 [facility] Comment on above: Performed By: #### H DEB, CMP #### [facility] [address] [place] [address] Dr. Judd Andrade Bilirubin [Mass/Vol] 0.6 mg/dL Normal 0.2-1.0 [facility] Comment on above: Performed By: #### H STROPN, CMP #### [facility] [address] [place] [address] Dr. Judd Andrade Calcium [Mass/Vol] 9.3 mg/dL Normal 8.5-10.1 [facility] Comment on above: Performed By: #### H STROPN, CMP #### [facility] [address] [address] [address] Judd Andrade Chloride [Moles/Vol] 103 mmol/L Normal 98-107 [facility] Comment on above: Performed By: #### H STROPN, CMP #### [facility] [address] [place] [address] Dr. Judd Andrade CO2 [Moles/Vol] 33.6 mmol/L Critically high 21.0-32.0 [facility] Comment on above: Performed By: #### H STROPN, CMP #### [facility] [address] [place] [address] Dr. Judd Andrade Creatinine [Mass/Vol] 0.59 mg/dL Normal 0.55-1.02 [facility] Comment on above: Performed By: #### H STROPN, CMP #### [facility] [address] [place] [address] Dr. Judd Andrade EGFR-AF NEW ZEALANDER >60 Normal >=60 [facility] Comment on above: Performed By: #### H STROPN, CMP #### [facility] [address] [place] [address] Dr. Judd Andrade EGFR-NON AF NEW ZEALANDER >60 Normal >=60 [facility] Comment on above: Performed By: #### H STROPN, CMP #### [facility] [address] [place] [address] Dr. Judd Andrade Globulin (S) [Mass/Vol] 4.0 g/dL Normal [facility] Comment on above: Performed By: #### H STROPN, CMP #### [facility] [address] [place] [address] Dr. Judd Andrade Glucose [Mass/Vol] 130 mg/dL Critically high 74-106 [facility] Comment on above: Performed By: #### H DEB, CMP #### [facility] [address] [place] [address] Dr. Judd Andrade Potassium [Moles/Vol] 3.6 mmol/L Normal 3.5-5.1 [facility] Comment on above: Performed By: #### H TERAPN, CMP #### [facility] [address] [address] [address] Judd Andrade Protein [Mass/Vol] 8.0 g/dL Normal 6.4-8.2 [facility] Comment on above: Performed By: #### H DEB, CMP #### [facility] [address] [place] [address] Dr. Judd Andrade Sodium [Moles/Vol] 141 mmol/L Normal 136-145 [facility] Comment on above: Performed By: #### H DEB, CMP #### [facility] [address] [place] [address] Dr. Judd Andrade Urea nitrogen [Mass/Vol] 8.0 mg/dL Normal 7.0-18.0 [facility] Comment on above: Performed By: #### H DEB, CMP #### [facility] [address] [place] [address] Dr. Judd Andrade Urea nitrogen/Creatinine [Mass ratio] 13.6 mg/mg Normal [facility] Comment on above: Performed By: #### H DEB, CMP #### [facility] [address] [place] [address] Dr. Judd Andrade TROPONIN, HIGH SENSITIVITYon 06-03-2022 HSTROP <4.0 Normal 4.0-51.3 [facility] Comment on above: Result Comment: CUT- OFF POINTS HAVE BEEN ESTABLISHED BASED ON THE FOURTH UNIVERSAL DEFINITIONS OF MYOCARDIAL INFARCTION. THE UPPER REFERENCE LIMIT (URL) OF TROPONIN, DEFINED THE 99TH PERCENTILE OF cTnI DISTRIBUTION IN A REFERENCE POPULATION, HAS BEEN CONFIRMED THE DECISION THRESHOLD FOR UT DIAGNOSIS. Performed By: #### H DEB, CMP #### [facility] [address] [address] [address] Judd Andrade XR CHEST 2 Von [...] Date: 2022-06-03 12:15 Normal [facility] Covid-19 PCR (CVDTB)on SARS-CoV-2 (COVID-19) RNA JOLLY+probe Ql (Unsp spec) Not detected Normal NOT DETECTED [facility] Comment on above: Result Comment: This test is not yet approved or cleared by the [place] FDA. When there are no FDA-approved or cleared tests available, and other criteria are met, FDA can make tests available under an emergency access mechanism called an Emergency Use Authorization (EUA). The EUA for this test is supported by the [place] of Health and Human Service's (HHS's) declaration [...] Performed By: #### H TERA, CMP #### [facility] [address] [address] [address] Judd Andrade INFLUENZA A AND B AGon 06-02 INFLUANEGH SEE BELOW Normal [facility] Comment on above: Result Comment: Nega tive for Flu A protein angiten. Infection due to Flu A cannot be ruled out. Flu A angiten in the sample may be below the detection limit of the test. Performed By: #### H STROPN, CMP #### [facility] [address] [address] [address] Judd Andrade [facility] SEE BELOW Normal [facility] Comment on above: Result Comment: Nega tive for Flu B protein antigen. Infection due to Flu B cannot be ruled out. Flu B antigen in the sample may be below the detection limit of the test. Performed By: #### H STROPN, CMP #### [facility] [address] [address] [address] Judd Andrade INFLUENZA A AG Negative Normal NEGATIVE SEE COMMENT [facility] Comment on above: Performed By: #### H STROPN, CMP #### [facility] [address] [address] [address] Judd Andrade INFLUENZA B AG Negative Normal NEGATIVE SEE COMMENT [facility] Comment on above: Performed By: #### H STROPN, CMP #### [facility] [address] [address] [address] HEAD_NECKon 02-11-2022 [...] [facility] MG MAMM SCREEN 3D SUSANA CADon 02-10-2022 MG MAMM SCREEN 3D SUSANA CAD Patient: YULIA DORSEY Exam Date: 02/10/2022 : 1965 Gender:F Ordering : DR JOHN PORTER . Admission #: [id number] Family : Order #: [id number] CLICK HERE TO VIEW EXAM RADIOLOGY REPORT [...] at age 40. LOCATION: [facility] BREAST COMPOSITION: Almost entirely fatty. [...] Strong M.D. on 02/11/2022 at 14:20 Normal [facility] XR CHEST 1 Von 01-15-2022 XR [...] Date: 2022-01-15 18:39 Normal [facility] CBC AUTO DIFFon 12-30-2021 BASO # 0.0 103/ul Normal 0.0-0.1 [facility] Comment on above: Performed By: #### C BC #### [facility] [address] [place], [place] [address] Dr. Judd Andrade Basophils/100 WBC (Bld) 0.6 % Normal 0.2-2.0 [facility] Comment on above: Performed By: #### C BC #### [facility] [address] [place], [place] [address] Dr. Judd Andrade EO # 0.1 103/ul Normal 0.0-0.7 [facility] Comment on above: Performed By: #### C BC #### [facility] [address] [address] [address] Judd Andrade Eosinophils/100 WBC (Bld) 2.1 % Normal 0.9-7.0 [facility] Comment on above: Performed By: #### C BC #### [facility] [address] [place] [address] Dr. Judd Andrade Erythrocyte distribution width (RBC) [Ratio] 13.0 % Normal 11.0-15.0 [facility] Comment on above: Performed By: #### C BC #### [facility] [address] [place] [address] Dr. Judd Andrade Hematocrit (Bld) [Volume fraction] 41.9 % Normal 36.0-48.0 [facility] Comment on above: Performed By: #### C BC #### [facility] [address] [place] [address] Dr. Judd Andrade Hemoglobin (Bld) [Mass/Vol] 13.7 g/dL Normal 12.0-16.0 [facility] Comment on above: Performed By: #### C BC #### [facility] [address] [place] [address] Dr. Judd Andrade IG # 0.03 10e3/ul Normal 0.00-0.03 [facility] Comment on above: Performed By: #### C BC #### [facility] [address] [place] [address] Dr. Judd Andrade IG % 0.6 % Critically high 0.0-0.5 [facility] Comment on above: Performed By: #### C BC #### [facility] [address] [place] [address] Dr. Judd Andrade LYMPH # 1.9 103/ul Normal 1.2-3.8 [facility] Comment on above: Performed By: #### C BC #### [facility] [address] [place] [address] Dr. Judd Andrade Lymphocytes/100 WBC (Bld) 34.5 % Normal 20.5-60.0 [facility] Comment on above: Performed By: #### C BC #### [facility] [address] [place] [address] Dr. Judd Andrade MANUAL DIFF REQ NO Normal [facility] Comment on above: Performed By: #### C BC #### [facility] [address] [place] [address] Dr. Judd Andrade MCH (RBC) [Entitic mass] 28.5 pg Normal 26.7-34.0 [facility] Comment on above: Performed By: #### C BC #### [facility] [address] [place] [address] Dr. Judd Andrade MCHC (RBC) [Mass/Vol] 32.7 g/dL Normal 29.9-35.2 [facility] Comment on above: Performed By: #### C BC #### [facility] [address] [place] [address] Dr. Judd Andrade MCV (RBC) [Entitic vol] 87.1 fL Normal 81.0-99.0 [facility] Comment on above: Performed By: #### C BC #### [facility] [address] [place] [address] Dr. Judd Andrade MONO # 0.6 103/ul Normal 0.3-0.8 [facility] Comment on above: Performed By: #### C BC #### [facility] [address] [place] [address] Dr. Judd Andrade Monocytes/100 WBC (Bld) 10.4 % Normal 1.7-12.0 [facility] Comment on above: Performed By: #### C BC #### [facility] [address] [place] [address] Dr. Judd Andrade NEUT # 2.8 103/ul Normal 1.4-6.5 [facility] Comment on above: Performed By: #### C BC #### [facility] [address] [place] [address] Dr. Judd Andrade Neutrophils/100 WBC (Bld) 51.8 % Normal 43.0-75.0 [facility] Comment on above: Performed By: #### C BC #### [facility] [address] [place] [address] Dr. Judd Andrade Platelet mean volume (Bld) [Entitic vol] 10.5 fL Normal 9.5-13.5 [facility] Comment on above: Performed By: #### C BC #### [facility] [address] [place] [address] Dr. Judd Andrade PLT 270 103/ul Normal 150-450 [facility] Comment on above: Performed By: #### C BC #### [facility] [address] [place] [address] Dr. Judd Andrade RBC 4.81 106/ul Normal 4.20-5.40 [facility] Comment on above: Performed By: #### C BC #### [facility] [address] [place] [address] Dr. Judd Andrade WBC 5.4 103/ul Normal 4.0-11.0 [facility] Comment on above: Performed By: #### C BC #### [facility] [address] [place] [address] Dr. Judd Andrade CRPon 12-30-2021 CRP [Mass/Vol] mg/L Normal <=1.0 [facility] Comment on above: Performed By: #### C BC #### [facility] [address] [place] [address] Dr. Judd Andrade PROF 14(COMP METB)on 022 Albumin [Mass/Vol] 3.9 g/dL Normal 3.4-5.0 [facility] Comment on above: Performed By: #### C BC #### [facility] [address] [place] [address] Dr. Judd Andrade Albumin/Globulin [Mass ratio] 1.0 {ratio} Normal [facility] Comment on above: Performed By: #### C BC #### [facility] [address] [place] [address] Dr. Judd Andrade ALP [Catalytic activity/Vol] 64 U/L Normal 46-116 [facility] Comment on above: Performed By: #### C BC #### [facility] [address] [address] [address] Judd Andrade ALT [Catalytic activity/Vol] 50 U/L Normal 14-59 [facility] Comment on above: Performed By: #### C BC #### [facility] [address] [address] [address] Judd Andrade Anion gap [Moles/Vol] 11.1 mmol/L Normal [facility] Comment on above: Performed By: #### C BC #### [facility] [address] [address] [address] Judd Andrade AST [Catalytic activity/Vol] 28 U/L Normal 15-37 [facility] Comment on above: Performed By: #### C BC #### [facility] [address] [place] [address] Dr. Judd Andrade Bilirubin [Mass/Vol] 0.5 mg/dL Normal 0.2-1.0 [facility] Comment on above: Performed By: #### C BC #### [facility] [address] [place] [address] Dr. Judd Andrade Calcium [Mass/Vol] 8.9 mg/dL Normal 8.5-10.1 [facility] Comment on above: Performed By: #### C BC #### [facility] [address] [place] [address] Dr. Judd Andrade Chloride [Moles/Vol] 101 mmol/L Normal 98-107 [facility] Comment on above: Performed By: #### C BC #### [facility] [address] [place] [address] Dr. Judd Andrade CO2 [Moles/Vol] 29.4 mmol/L Normal 21.0-32.0 [facility] Comment on above: Performed By: #### C BC #### [facility] [address] [place] [address] Dr. Judd Andrade Creatinine [Mass/Vol] 0.73 mg/dL Normal 0.55-1.02 [facility] Comment on above: Performed By: #### C BC #### [facility] [address] [address] [address] Judd Andrade EGFR-AF NEW ZEALANDER >60 Normal >=60 [facility] Comment on above: Performed By: #### C BC #### [facility] [address] [place] [address] Dr. Judd Andrade EGFR-NON AF NEW ZEALANDER >60 Normal >=60 [facility] Comment on above: Performed By: #### C BC #### [facility] [address] [place] [address] Dr. Judd Andrade Globulin (S) [Mass/Vol] 3.8 g/dL Normal [facility] Comment on above: Performed By: #### C BC #### [facility] [address] [place] [address] Dr. Judd Andrade Glucose [Mass/Vol] 139 mg/dL Critically high 74-106 [facility] Comment on above: Performed By: #### C BC #### [facility] [address] [place] [address] Dr. Judd Andrade Potassium [Moles/Vol] 3.5 mmol/L Normal 3.5-5.1 [facility] Comment on above: Performed By: #### C BC #### [facility] [address] [place] [address] Dr. Judd Andrade Protein [Mass/Vol] 7.7 g/dL Normal 6.4-8.2 [facility] Comment on above: Performed By: #### C BC #### [facility] [address] [place] [address] Dr. Judd Andrade Sodium [Moles/Vol] 138 mmol/L Normal 136-145 [facility] Comment on above: Performed By: #### C BC #### [place] [facility] [facility] [address] [place] [address] Dr. Judd Andrade Urea nitrogen [Mass/Vol] 12.0 mg/dL Normal 7.0-18.0 [facility] Comment on above: Performed By: #### C BC #### [facility] [address] [place] [address] Dr. Judd Andrade Urea nitrogen/Creatinine [Mass ratio] 16.4 mg/mg Normal [facility] Comment on above: Performed By: #### C BC #### [facility] [address] [address] [address] Judd Andrade XR CHEST 2 Von [...] Date: 2021-12-29 20:49 Normal [facility] TRYPTASEon 12-27-2021 Tryptase 4.5 ug/L Normal 2.2-13.2 [facility] Comment on above: Performed By: #### C BC #### [facility] [address] [place] [address] Dr. Judd Andrade CBC AUTO DIFFon 12-23-2021 BASO # 0.0 103/ul Normal 0.0-0.1 [facility] Comment on above: Performed By: #### H STROPN, CMP #### [facility] [address] [place] [address] Dr. Judd Andrade Basophils/100 WBC (Bld) 0.7 % Normal 0.2-2.0 [facility] Comment on above: Performed By: #### H STROPN, CMP #### [facility] [address] [place] [address] Dr. Judd Andrade EO # 0.0 103/ul Normal 0.0-0.7 [facility] Comment on above: Performed By: #### H STROPN, CMP #### [facility] [address] [place] [address] Dr. Judd Andrade Eosinophils/100 WBC (Bld) 0.0 % Critically low 0.9-7.0 [facility] Comment on above: Performed By: #### H STROPN, CMP #### [facility] [address] [place] [address] Dr. Judd Andrade Erythrocyte distribution width (RBC) [Ratio] 13.2 % Normal 11.0-15.0 [facility] Comment on above: Performed By: #### H STROPN, CMP #### [facility] [address] [place] [address] Dr. Judd Andrade Hematocrit (Bld) [Volume fraction] 42.1 % Normal 36.0-48.0 [facility] Comment on above: Performed By: #### H STROPN, CMP #### [facility] [address] [place] [address] Dr. Judd Andrade Hemoglobin (Bld) [Mass/Vol] 13.7 g/dL Normal 12.0-16.0 [facility] Comment on above: Performed By: #### H STROPN, CMP #### [facility] [address] [place] [address] Dr. Judd Andrade IG # 0.01 10e3/ul Normal 0.00-0.03 [facility] Comment on above: Performed By: #### H STROPN, CMP #### [facility] [address] [place] [address] Dr. Judd Andrade IG % 0.3 % Normal 0.0-0.5 [facility] Comment on above: Performed By: #### H STROPN, CMP #### [facility] [address] [place] [address] Dr. Judd Andrade LYMPH # 0.7 103/ul Critically low 1.2-3.[address] [facility] Comment on above: Performed By: #### H STROPN, CMP #### [facility] [address] [place] [address] Dr. Judd Andrade Lymphocytes/100 WBC (Bld) 24.1 % Normal 20.5-60.0 [facility] Comment on above: Performed By: #### H STROPN, CMP #### [facility] [address] [place] [address] Dr. Judd Andrade MANUAL DIFF REQ NO Normal [facility] Comment on above: Performed By: #### H STROPN, CMP #### [facility] [address] [place] [address] Dr. Judd Andrade MCH (RBC) [Entitic mass] 28.4 pg Normal 26.7-34.0 [facility] Comment on above: Performed By: #### H DEB, CMP #### [facility] [address] [place] [address] Dr. Judd Adnrade MCHC (RBC) [Mass/Vol] 32.5 g/dL Normal 29.9-35.2 [facility] Comment on above: Performed By: #### H DEB, CMP #### [facility] [address] [place] [address] Dr. Judd Andrade MCV (RBC) [Entitic vol] 87.2 fL Normal 81.0-99.0 [facility] Comment on above: Performed By: #### H DEB, CMP #### [facility] [address] [place] [address] Dr. Judd Andrade MONO # 0.5 103/ul Normal 0.3-0.8 [facility] Comment on above: Performed By: #### H DEB, CMP #### [facility] [address] [place] [address] Dr. Judd Andrade Monocytes/100 WBC (Bld) 16.9 % Critically high 1.7-12.0 [facility] Comment on above: Performed By: #### H DEB, CMP #### [facility] [address] [place] [address] Dr. Judd Andrade NEUT # 1.8 103/ul Normal 1.4-6.5 [facility] Comment on above: Performed By: #### H DEB, CMP #### [facility] [address] [place] [address] Dr. Judd Andrade Neutrophils/100 WBC (Bld) 58.0 % Normal 43.0-75.0 [facility] Comment on above: Performed By: #### H DEB, CMP #### [facility] [address] [place] [address] Dr. Judd Andrade Platelet mean volume (Bld) [Entitic vol] 9.9 fL Normal 9.5-13.5 [facility] Comment on above: Performed By: #### H TERAPN, CMP #### [facility] [address] [address] [address] Judd Andrade PLT 210 103/ul Normal 150-450 [facility] Comment on above: Performed By: #### H TERAPN, CMP #### [facility] [address] [address] [address] Judd Andrade RBC 4.83 106/ul Normal 4.20-5.40 [facility] Comment on above: Performed By: #### H TERAPN, CMP #### [facility] [address] [place] [address] Dr. Judd Andrade WBC 3.1 103/ul Critically low 4.0-11.0 [facility] Comment on above: Performed By: #### H DEB, CMP #### [facility] [address] [place] [address] Dr. Judd Andrade IRONon 12-23-2021 Iron [Mass/Vol] 35.0 ug/dL Critically low 50.0-170.0 [facility] Comment on above: Performed By: #### C BC #### [facility] [address] [place] [address] Dr. Judd Andrade PROF 14(COMP METB)on 022 Albumin [Mass/Vol] 3.9 g/dL Normal 3.4-5.0 [facility] Comment on above: Performed By: #### C BC #### [facility] [address] [place] [address] Dr. Judd Andrade Albumin/Globulin [Mass ratio] 1.0 {ratio} Normal [facility] Comment on above: Performed By: #### C BC #### [facility] [address] [place] [address] Dr. Judd Andrade ALP [Catalytic activity/Vol] 70 U/L Normal 46-116 [facility] Comment on above: Performed By: #### C BC #### [facility] [address] [place] [address] Dr. Judd Andrade ALT [Catalytic activity/Vol] 43 U/L Normal 14-59 [facility] Comment on above: Performed By: #### C BC #### [facility] [address] [address] [address] Judd Andrade Anion gap [Moles/Vol] 11.5 mmol/L Normal [facility] Comment on above: Performed By: #### C BC #### [facility] [address] [address] [address] Judd Andrade AST [Catalytic activity/Vol] 33 U/L Normal 15-37 [facility] Comment on above: Performed By: #### C BC #### [facility] [address] [address] [address] Judd Andrade Bilirubin [Mass/Vol] 0.3 mg/dL Normal 0.2-1.0 [facility] Comment on above: Performed By: #### C BC #### [facility] [address] [place] [address] Dr. Judd Andrade Calcium [Mass/Vol] 8.9 mg/dL Normal 8.5-10.1 [facility] Comment on above: Performed By: #### C BC #### [facility] [address] [address] [address] Judd Andrade Chloride [Moles/Vol] 101 mmol/L Normal 98-107 [facility] Comment on above: Performed By: #### C BC #### [facility] [address] [place] [address] Dr. Judd Andrade CO2 [Moles/Vol] 31.1 mmol/L Normal 21.0-32.0 [facility] Comment on above: Performed By: #### C BC #### [facility] [address] [address] [address] Judd Andrade Creatinine [Mass/Vol] 0.69 mg/dL Normal 0.55-1.02 [facility] Comment on above: Performed By: #### C BC #### [facility] [address] [address] [address] Judd Andrade EGFR-AF NEW ZEALANDER >60 Normal >=60 [facility] Comment on above: Performed By: #### C BC #### [facility] [address] [place] [address] Dr. Judd Andrade EGFR-NON AF NEW ZEALANDER >60 Normal >=60 [facility] Comment on above: Performed By: #### C BC #### [facility] [address] [place] [address] Dr. Judd Andrade Globulin (S) [Mass/Vol] 3.8 g/dL Normal [facility] Comment on above: Performed By: #### C BC #### [facility] [address] [place] [address] Dr. Judd Andrade Glucose [Mass/Vol] 103 mg/dL Normal 74-106 [facility] Comment on above: Performed By: #### C BC #### [facility] [address] [place] [address] Dr. Judd Andrade Potassium [Moles/Vol] 3.6 mmol/L Normal 3.5-5.1 [facility] Comment on above: Performed By: #### C BC #### [facility] [address] [place] [address] Dr. Judd Andrade Protein [Mass/Vol] 7.7 g/dL Normal 6.4-8.2 [facility] Comment on above: Performed By: #### C BC #### [facility] [address] [place] [address] Dr. Judd Andrade Sodium [Moles/Vol] 140 mmol/L Normal 136-145 [facility] Comment on above: Performed By: #### C BC #### [facility] [address] [place] [address] Dr. Judd Andrade Urea nitrogen [Mass/Vol] 11.0 mg/dL Normal 7.0-18.0 [facility] Comment on above: Performed By: #### C BC #### [facility] [address] [place] [address] Dr. Judd Andrade Urea nitrogen/Creatinine [Mass ratio] 15.9 mg/mg Normal [facility] Comment on above: Performed By: #### C BC #### [facility] [address] [place] [address] Dr. Judd Andrade PROTIMEon 12-23-2021 INR Coag (PPP) [Relative time] 1.04 {INR} Normal [facility] Comment on above: Performed By: #### H DEB, CMP #### [facility] [address] [place] [address] Dr. Judd Andrade INR GUIDELINES SEE BELOW Normal [facility] Comment on above: Result Comment: PRIETO RED INR: 2.0 - 3.0 CONDITIONS NOT LISTED BELOW 2.5 - 3.5 FOR PROSTHETIC HEART VALVE REPLACEMENT 2.5 - 3.5 RECURRENT THROMBOSIS Performed By: #### H DEB, CMP #### [facility] [address] [place] [address] Dr. Judd Andrade PT Coag (PPP) [Time] 11.2 s Normal 9.0-11.6 [facility] Comment on above: Performed By: #### H DEB, CMP #### [facility] [address] [place] [address] Dr. Judd Andrade PTTon 12-23-2021 aPTT Coag (Bld) [Time] 31.5 s Normal 22.3-36.2 [facility] Comment on above: Performed By: #### H DEB, CMP #### [facility] [address] [place] [address] Dr. Judd Andrade ER URINE PROFILEon 2 Bilirubin Ql (U) Negative Normal NEGATIVE [facility] Comment on above: Performed By: #### Sara BOYD, CMP #### [facility] [address] [place] [address] Dr. Judd Andrade Clarity (U) CLEAR Normal CLEAR [facility] Comment on above: Performed By: #### H DEB, CMP #### [facility] [address] [place] [address] Dr. Judd Andrade Color (U) LT. YELLOW Normal YELLOW [facility] Comment on above: Performed By: #### H DEB, CMP #### [facility] [address] [place] [address] Dr. Judd Andrade ERUAHD A micrscopic examination will be performed if indicated. Normal [facility] Comment on above: Performed By: #### H STROPN, CMP #### [facility] [address] [address] [address] Judd Andrade Glucose Ql (U) Negative Normal NEGATIVE [facility] Comment on above: Performed By: #### H STROPN, CMP #### [facility] [address] [address] [address] Judd Andrade Hemoglobin Ql (U) TRACE-INTACT Abnormal NEGATIVE [facility] Comment on above: Performed By: #### H STROPN, CMP #### [facility] [address] [address] [address] Judd Andrade Ketones Ql (U) Negative Normal NEGATIVE [facility] Comment on above: Performed By: #### H STROPN, CMP #### [facility] [address] [address] [address] Judd Andrade LEUKOCYTES Negative Normal NEGATIVE [facility] Comment on above: Performed By: #### H STROPN, CMP #### [facility] [address] [address] [address] Judd Andrade Nitrite Ql (U) Negative Normal NEGATIVE [facility] Comment on above: Performed By: #### H STROPN, CMP #### [facility] [address] [address] [address] Judd Andrade pH (U) 6.0 [pH] Normal 5-9 [facility] Comment on above: Performed By: #### H STROPN, CMP #### [facility] [address] [address] [address] Judd Andrade SPEC GRAVITY 1.005 Normal 1.005-<=1.025 [facility] Comment on above: Performed By: #### H STROPN, CMP #### [facility] [address] [place] [address] Dr. Judd Andrade UA PROTEIN Negative Normal NEGATIVE/ TRACE [facility] Comment on above: Performed By: #### H STROPN, CMP #### [facility] [address] [address] [address] Judd Andrade UR MICRO IND INDICATED Normal [facility] Comment on above: Performed By: #### H STROPN, CMP #### [facility] [address] [place] [address] Dr. Judd Andrade Urobilinogen Qn (U) 0.2 {Carol'U}/dL Normal 0.2 - 1. 0 [facility] Comment on above: Performed By: #### H STROPN, CMP #### [facility] [address] [place] [address] Dr. Judd Andrade URINE MICROSCOPIC ONLYon BACTERIA NONE SEEN Normal NONE SEEN [facility] Comment on above: Performed By: #### H STROPN, CMP #### [facility] [address] [place] [address] Dr. Judd Andrade Bacteria identified Cx Nom (U) NOT INDICATED Normal [facility] Comment on above: Performed By: #### H STROPN, CMP #### [facility] [address] [place] [address] Dr. Judd Andrade CAST NONE SEEN Normal NONE SEEN [facility] Comment on above: Performed By: #### H STROPN, CMP #### [facility] [address] [place] [address] Dr. Judd Andrade Crystals LM Nom (Urine sed) NONE SEEN Normal NONE SEEN [facility] Comment on above: Performed By: #### H STROPN, CMP #### [facility] [address] [place] [address] Dr. Judd Andrade Epithelial cells LM Ql (Urine sed) FEW Abnormal NONE SEEN /RARE [facility] Comment on above: Performed By: #### H STROPN, CMP #### [facility] [address] [place] [address] Dr. Judd Andrade MUCOUS NONE SEEN Normal NONE SEEN [facility] Comment on above: Performed By: #### H STROPN, CMP #### [facility] [address] [place] [address] Dr. Judd Andrade RBC 0-2 Normal 0-2 [facility] Comment on above: Performed By: #### H STROPN, CMP #### [facility] [address] [place] [address] Dr. Judd Andrade WBC NONE SEEN Normal NONE SEEN [facility] Comment on above: Performed By: #### H STRO, [facility] #### [facility] [address] [address] [address] Judd Andrade Vital Signs Date Time Vital Sign Value Performing Clinician Briana muñoz 12-30-2023 13:48-0400 Blood Pressure Location Bessieje Gong [facility] 12-30-2023 13:48-0400 Diastolic blood pressure 82 mm[Hg] Bessie Galea [facility] 12-30-2023 13:48-0400 Heart rate 80 /min Bessie Galea [facility] 12-30-2023 13:48-0400 Respiratory rate 16 /min Bessie Reubenea [facility] 12-30-2023 13:48-0400 Systolic blood pressure 117 mm[Hg] Bessie Galea [facility] Encounters Encounter Date Encounter Type Care Provider Facility Start: 01-07-2024 End: 01-07-2024 ambulatory MD John Porter Work Phone: [facility] Work Phone: Start: 01-07-2024 End: 01-07-2024 Departed Referred MD John Porter Work Phone: [facility] Start: 01-03-2024 End: 01-03-2024 ambulatory KATIE RUST Not Available Start: 12-30-2023 End: 12-30-2023 ambulatory Bessie Gong Facility:[facility] Start: 12-30-2023 End: 12-30-2023 Patient encounter procedure Bessievicki Gong [facility] Start: 12-21-2023 End: 12-21-2023 ambulatory NATALIE [...] examination DR JOHN PORTER . [facility] Start: 06-26-2022 End: 06-27-[address] [...] 10-17-2018 Cystourethroscopy wi dilation of urethral stricture Bessei Galea Appendectomy Bessie Galea History of cholecystectomy A lysha Galea Tonsillectomy Bessie Galea Immunizations Immunization Date Immunization Notes Care Provider Mukesh merritt 10-05-2022 tetanus toxoid, redu heide diphtheria toxoid, and acellular pertussis vaccine, adsorbed Bessie Galea [facility] Payers Date Payer Category Payer Self-pay [id number] 2023 Unknown [id number] 1965 Unknown [id number] 2.16.84 0.1.933033.3.579.2.593 1965 Unknown [id number] 2.16.84 0.1.732285.3.579.2.593 1965 Unknown [id number] 2.16.84 0.1.974515.3.579.2.593 1965 Unknown [id number] 2.16.84 0.1.190590.3.579.2.593 1965 Unknown [id number] 2.16.84 0.1.601975.3.579.2.593 1965 Unknown [id number] 2.16.84 0.1.964115.3.579.2.593 1965 Unknown [id number] 2.16.84 0.1.475496.3.579.2.593 1965 Unknown [id number] 2.16.84 0.1.774300.3.579.2.593 1965 Unknown [id number] 2.16.84 0.1.881579.3.579.2.593 1965 Unknown [id number] 2.16.84 0.1.772573.3.579.2.593 1965 Unknown [id number] 2.16.84 0.1.679579.3.579.2.593 1965 Unknown [id number] 2.16.84 0.1.143698.3.579.2.593 1965 Unknown [id number] 2.16.84 0.1.503822.3.579.2.593 1965 Unknown [id number] 2.16.84 0.1.740041.3.579.2.593 1965 Unknown [id number] 2.16.84 0.1.545159.3.579.2.593 1965 Unknown [id number] 2.16.84 0.1.168331.3.579.2.593 1965 Unknown [id number] 2.16.84 0.1.334701.3.579.2.593 1965 Unknown [id number] 2.16.84 0.1.532183.3.579.2.593 1965 Unknown [id number] 2.16.84 0.1.504787.3.579.2.593 1965 Unknown [id number] 2.16.84 0.1.960276.3.579.2.593 1965 Unknown [id number] 2.16.84 0.1.487768.3.579.2.593 1965 Unknown [id number] 2.16.84 0.1.846415.3.579.2.593 1965 Unknown [id number] 2.16.84 0.1.697124.3.579.2.593 1965 Unknown [id number] 2.16.84 0.1.214525.3.579.2.593 1965 Unknown [id number] 2.16.84 0.1.566192.3.579.2.1259 1965 Unknown [id number] 2.16.84 0.1.659459.3.579.2.1259 1965 Unknown [id number] 2.16.84 0.1.671576.3.579.2.1259 1965 Unknown [id number] 2.16.84 0.1.878330.3.579.2.1259 1965 Unknown [id number] 2.16.84 0.1.160967.3.579.2.1259 1965 Unknown [id number] 2.16.840 .1.266895.3.579.2.1259 1965 Unknown [id number] 2.16.8 40.1.678766.3.579.2.727 1959 Self-pay [id number] 1959 Unknown [id number] 1959 Unknown [id number] Unknown [id number] 2.16.8 40.1.470268.3.579.2.531 Social History Date Type Detail Facility Start: 12-30-2023 Tobacco smoking status Ex-smoker (fi nding) [facility] Tobacco smoking status Never [facility] Sex Assigned At Female [facility] Start: 09-05-2013 Tobacco smoking stat us DCIS Never smoked tobacco (finding) [facility] Start: 1965 Sex Assigned At Female Rashida [facility] Functional Status Date Assessment Result Facility 12-30-2023 Functional Status N/A [facility] Hospital Discharge instructions 12-30-2023 Note Date [...] provider. Document Revised: 08/21/2021 Document Reviewed: 08/21/2021 [employer] Patient Education 2023 [employer]. Follow Up Care 12/02/2023 13:46:26 With:Farideh BARRERA, Bessie Modi, URL Address: When: Unknown Comments:pending imaging and after PFPT [facility] Clinical Note 12-30-2023 Note Date & [...] provider. Document Revised: 08/21/2021 Document Reviewed: 08/21/2021 [employer] Patient Education ? 2023 [employer] [facility] Evaluation + Plan note Note Date & Type Note Facility Evaluation + Plan note No data available for this section [facility] Evaluation note Note Date & Type Note Facility Evaluation note No assessment information [facility] Work Phone: Progress note Note Date & Type Note Facility Progress note No data available for this section [facility] Summary Purpose Family History No Family [...] DATE CREATED AUTHOR AUTHOR'S ORGANIZ ATION 01/04/2024 [facility] DATE CREATED AUTHOR AUTHOR'S ORGANIZ ATION 01/09/2024 Horan On[place]aga [facility] DATE CREATED AUTHOR AUTHOR'S ORGANIZ ATION 01/14/2024 [facility] Patient Care team informatio n [...] BE BASED ON THE PRIMARY CLINICAL RECORDS. [employer] provides no warranty or guarantee of the accuracy or completeness of information in this document.
[2024-01-29 08:55] LABS: Estimated Average Glucose 117 mg/dL; Glycohemoglobin A1C 5.7 % (4.5-6.2)
[2024-01-29 08:59] LABS: Anion Gap 15.2; BUN Creatinine Ratio 18.6; Calcium 9.3 mg/dL (8.5-10.1); Carbon Dioxide 27.6 mmol/L (21.0-32.0); Chloride 100 mmol/L (98-107); Estimated GFR (African America >60 (>=60 mL/min/1.73m^2); Estimated GFR (Non-African Ame >60 (>=60 mL/min/1.73m^2); Glucose 98 mg/dL (74-106); Potassium 3.8 mmol/L (3.5-5.1); Sodium 139 mmol/L (136-145)
[2024-01-31 13:00] LABS: Bilirubin Urine NEGATIVE (NEGATIVE); Blood Urine NEGATIVE (NEGATIVE); Clarity Urine CLEAR (CLEAR); Color Urine LT. YELLOW (YELLOW); Glucose Urine UA NEGATIVE (NEGATIVE); Ketones Urine NEGATIVE (NEGATIVE); Leukocyte Esterase Urine NEGATIVE (NEGATIVE); Nitrite Urine NEGATIVE (NEGATIVE); Protein Urine NEGATIVE (NEG/TRACE); Specific Gravity Urine <=1.005 (1.005-1.025); Urobilinogen Urine 0.2 EU/dL (0.2-1.0)
[2024-01-31 13:08] LABS: Bacteria Urine NONE SEEN #/HPF (NONE SEEN); Cast Seen? NONE SEEN #/LPF (NONE SEEN); Crystals Seen? None Seen #/HPF (None Seen); Mucus Urine NONE SEEN (NONE SEEN); RBC Urine 0-2 #/HPF (0-2); Squamous Epithelial Cell Urine RARE #/LPF (NONE/RARE); WBC Urine 0-2 #/HPF (NONE SEEN)
== END 2024-01-29 07:00 | disposition home or self-care (01) ==
LOC: LAB 06:59
PROVIDERS: PCP Family Medicine; Visit Provider Family Medicine
DX: E16.2 Hypoglycemia, unspecified (principal); I10 Essential (primary) hypertension; R35.0 Frequency of micturition
CPT/HCPCS: 36415; 80048; 81001; 83036; 87086

== ENCOUNTER 2024-03-29 15:19 | Outpatient (OUT) | payer OTHER, SELFPAY ==
--- NOTE | 2024-03-29 15:24 | XR_ITS ---
The [address] [address] Patient Name: YULIA CASTANO MRN: [id number] date: 1965 Sex: F Assigned Patient Location: [facility] Current Patient Location: Accession/Order Number: [id number] Exam Date: 03/29/2024 15:25 Report Date: 03/30/2024 07:38 At the request of: JOHN WHITE Procedure: XR chest 2V EXAMINATION: XR chest 2V HISTORY: Acute Bronchitis COMPARISON: No relevant comparison available. TECHNIQUE: PA and lateral FINDINGS: LUNGS: No significant pulmonary parenchymal abnormalities. VASCULATURE: No increased pulmonary vasculature. PLEURA: No pneumothorax, effusion, or pleural thickening. CARDIAC: No cardiomegaly or cardiac silhouette abnormality. MEDIASTINUM: No visible mass or adenopathy. BONES: No fracture or visible bone lesion. OTHER: Negative. XR/XR chest 2V IMPRESSION: No acute cardiopulmonary process Electronically authenticated by: ELLYN ALVAREZ Date: 03/30/2024 07:38
== END 2024-03-29 15:20 | disposition home or self-care (01) ==
LOC: RAD 15:22
PROVIDERS: PCP Family Medicine; Visit Provider Family Medicine
DX: J20.9 Acute bronchitis, unspecified (principal)
CPT/HCPCS: 71046

== ENCOUNTER 2024-05-25 16:51 | Outpatient (OUT) | payer OTHER, SELFPAY ==
[2024-05-25 17:19] LABS: Bilirubin Urine NEGATIVE (NEGATIVE); Blood Urine TRACE-L (NEGATIVE); Clarity Urine CLEAR (CLEAR); Color Urine LT. YELLOW (YELLOW); Glucose Urine UA NEGATIVE (NEGATIVE); Ketones Urine TRACE mg/dL (NEGATIVE); Leukocyte Esterase Urine NEGATIVE (NEGATIVE); Nitrite Urine NEGATIVE (NEGATIVE); Protein Urine NEGATIVE (NEG/TRACE); Specific Gravity Urine 1.015 (1.005-1.025); Urobilinogen Urine 0.2 EU/dL (0.2-1.0); pH Urine 5.5 (5.0-9.0)
[2024-05-25 17:29] LABS: Bacteria Urine NONE SEEN #/HPF (NONE SEEN); Cast Seen? NONE SEEN #/LPF (NONE SEEN); Crystals Seen? None Seen #/HPF (None Seen); Mucus Urine NONE SEEN (NONE SEEN); RBC Urine 0-2 #/HPF (0-2); Squamous Epithelial Cell Urine NONE SEEN #/LPF (NONE/RARE); Urine Culture Indicated NO; WBC Urine 0-2 #/HPF (NONE SEEN)
--- OUTSIDE RECORDS SUMMARY | 2024-05-26 08:34 | XMS_ITS | CCD ---
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 Name Role Phone GERMAN ., DR LOPEZ [...] Unavailable ZIEBER, DR GABO Henley Consulting Unavailable YOCASTA ., DR WILSON Admitting Unavailable YOCASTA ., DR WILSON Attending Unavailable YOCASTA ., DR WILSON Consulting Unavailable HOY ., DR LOPEZ Primary Care Unavailable ZIEBER, DR GABO Henley Consulting Unavailable HOY ., DR LOPEZ Attending Unavailable HOY ., DR LOPEZ Consulting Unavailable HOY ., DR LOPEZ Primary Care Unavailable HOY ., DR LOPEZ Admitting Unavailable YOCASTA ., DR WILSON Admitting Unavailable YOCASTA ., DR WILSON Attending Unavailable HOY ., DR LOPEZ Primary Care Unavailable HOY ., DR LOPEZ Admitting Unavailable HOY ., DR LOPEZ Attending Unavailable HOY ., DR LOPEZ Primary Care Unavailable YOCASTA ., DR WILSON Admitting Unavailable YOCASTA ., DR WILSON Attending Unavailable HOY ., DR LOPEZ Primary Care Unavailable YOCASTA ., DR WILSON Admitting Unavailable YOCASTA ., DR WILSON Attending Unavailable HOY ., DR LOPEZ Primary Care Unavailable HOY ., DR LOPEZ Attending Unavailable HOY ., DR LOPEZ Primary Care Unavailable HOY ., DR LOPEZ Admitting Unavailable HOY ., DR LOPEZ Consulting Unavailable HOY ., DR LOPEZ Attending Unavailable HOY ., DR LOPEZ Primary Care Unavailable HOY ., DR LOPEZ Admchao Unavailable ARTEMIO DIXON Consulting Unavailable YOCASTA ., DR WILSON Admitting Unavailable YOCASTA ., DR WILSON Attending Unavailable [place], DR ELLYN Dougherty Consulting Unavailable HOY ., DR LOPEZ Primary Care Unavailable YOCASTA ., DR WILSON Consulting Unavailable HOY ., [...] Unavailable JEAN, DR BRYAN Henley Consulting Unavailable ABELINOY ., DR LOPEZ Primary Care Unavailable DEMETRA, DR IIRS Chavez Consulting Unavailabl e GERMAN ., DR LOPEZ Attending Unavailable HOY [...] HOY ., DR LOPEZ Admitting Unavailable MEAGAN, WINCHA Consulting Unavailable German John Primary Care Physician [phone] [place] [place] Attending Unavailable RALF RENDON Referring Unavailable YOCASTA, KATIE Attending Unavailable YOCASTA, KAITE Attending Unavailable YOCASTA, KATIE Attending Unavailable RADHA TINSLEY Attending Unavailable YOCASTA, KATIE Attending Unavailable MD John Porter Primary Care Provider [phone] Katie Rust Attending Provider Bessie Gong Attending Unavailable John Porter Primary Care Unavailable Yocasta, Katie Attending Unavailable Yocasta, Katie Admitting Unavailable John Porter MD Primary Care Provider [phone] IRIS GABRIEL Attending Unavailable ABELINOY, JOHN M Referring Unavailable HOY, JOHN M Primary Care Unavailable IRIS GABRIEL Attending Unavailable HOY, JOHN M Referring Unavailable HOY, JOHN M Primary Care Unavailable Allergies Allergy Classification Reported Allergen(s) Allergy Type Date of Onset Reaction(s) Facility (1 source) Azithromycin Drug Allergy 12-21-19 22 [facility] Repository (4 sources) Imipramine; Translations: [IMIPRAMINE] Drug Allergy 10-06-19 13 [facility] Repository (2 sources) Sulfonamides (Antibiotic) Drug allergy (disorder) 10-06-19 13 [facility] Repository (2 sources) E.E.S. Drug allergy (disorder) 10-06-19 13 [facility] Repository (16 sources) Erythromycin; Translations: [erythromycin] Drug Allergy 02-25-20 16 Unknown (qualifier value), Other [facility] (15 sources) Imipramine; Translations: [imipramine] Drug Allergy 02-25-20 16 Unknown (qualifier value), Other [facility] (2 sources) Sulfonamides (Antibiotic); Translations: [sulfa drugs] Drug allergy Unknown (qualifier value) [facility] (3 sources) Sulfonamides (Antibiotic); Translations: [Sulfa (Sulfonamide Antibiotics)] Allergy to substance 09-12-19 [facility] (15 sources) erythromycin base; Translations: [erythromycin base] Allergy to substance 12-02-19 [facility] (1 source) Imipramine Drug Allergy 12-02-19 [facility] Repository (13 sources) Sulfonamides (Antibiotic) Drug Intolerance 02-25-20 [facility] (2 sources) Ciprofloxacin Drug Allergy 01-20-20 [facility] Healthcare Medications Current Medications Medication Drug Class(es) Dates Sig (Normalized) Sig (Original) ascorbic acid 500 mg oral capsule (13 sources) Vitamin C Ascorbic Acid (Vitamin C) 500 MG capsule as directed Orally Active calcium carbonate 1500 mg oral tablet (13 sources) calcium carbonat e 1500 (600 Ca) MG tablet every 12 (twelve) hours. Active CALCIUM MAGNESIUM ZINC PO (13 sources) take 1 tablet by mouth in the morning CALCIUM MAGNESIUM ZINC PO Take 1 tablet by mouth in the morning. Active clobetasol propionate 0.5 mg/ml topical cream (6 sources) Corticosteroid Start: 12-29-2023 End: 01-12-2024 clobetasol (Temovate) 0.05 % cream Indications: Vulvar irritation Apply 1 application topically in the morning and 1 application before bedtime. Do all this for 14 days. 45 g 12/29/2023 01/12/2024 Active Misc Natural Products (Airborne Elderberry) chewable tablet (13 sources) Misc Natural Products (Airborne Elderberry) chewable tablet as directed Orally Active Multiple Vitamin (multivitamin) capsule (13 sources) take 1 capsule by mouth in the morning Multiple Vitamin (multivitamin) capsule Take 1 capsule by mouth in the morning. Active Problems Active Problems Problem Classification Problem Date Documented Da te Episodic/Chronic Abdominal hernia (1 source) Hiatal hernia 12-30-2023 Episodic Anxiety disorders (20 sources) Generalized anxiety disorder; Translations: [Anxiety state] Onset: 4 12-30-2023 Chronic Calculus of urinary tract (1 source) Kidney stone 12-30-2023 Episodic Chronic obstructive pulmonary disease and bronchiectasis (5 sources) Chronic obstructive pulmonary disease, unspecified; Translations: [COPD UNSPECIFIED] Onset: 3 Chronic Conditions associated with dizziness or vertigo (14 sources) Meniere's disease; Translations: [Meniere's disease, unspecified ear] Onset: 4 12-30-2023 Chronic Deficiency and other anemia (1 source) Anemia, unspecified; Translations: [ANEMIA UNSPECIFIED] Onset: 3 Episodic Deficiency and other anemia (1 source) Anemia 11-05-2018 Episodic Diabetes mellitus without complication (1 source) Other abnormal glucose; Translations: [OTHER ABNORMAL GLUCOSE] Onset: 3 Episodic Esophageal disorders (14 sources) Gastroesophageal reflux disease; Translations: [Gastro-esophageal reflux disease without esophagitis] Onset: 4 12-30-2023 Chronic Essential hypertension (5 sources) Essential (primary) hypertension; Translations: [Essential hypertension] Onset: 3 Chronic Gastritis and duodenitis (1 source) Hypertrophic gastritis 11-05-2018 Episodic Genitourinary symptoms and ill-defined conditions (6 sources) Unspecified urinary incontinence; Translations: [Stress incontinence (female) (male)] Onset: 2 Chronic Genitourinary symptoms and ill-defined conditions (5 sources) Microscopic hematuria; Translations: [Asymptomatic microscopic hematuria] Onset: 4 Episodic Headache; including migraine (1 source) Migraine 11-05-2018 Chronic Menopausal disorders (13 sources) Menopausal symptom; Translations: [Menopausal and female climacteric states] Onset: 7 10-28-2022 Chronic Menstrual disorders (14 sources) Excessive and frequent menstruation with regular cycle; Translations: [Menorrhagia] Onset: 2 10-28-2022 Chronic Miscellaneous mental health disorders (20 sources) Psychosomatic factor in physical condition; Translations: [Psychological and behavioral factors associated with disorders or diseases classified elsewhere] Onset: 7 10-28-2022 Chronic Mood disorders (15 sources) Depressive disorder; Translations: [Moderate major depression, single episode] Onset: 9 11-05-2018 Chronic Nonmalignant breast conditions (13 sources) Fibrocystic disease of breast; Translations: [Diffuse cystic mastopathy of unspecified breast] Onset: 3 10-28-2022 Chronic Nonmalignant breast conditions (5 sources) Unspecified lump in the right breast, unspecified quadrant; Translations: [Mastodynia] Onset: 3 Episodic Osteoarthritis (1 source) Arthritis 11-05-2018 Chronic Other aftercare (2 sources) Postoperative visit; Translations: [Encounter for other specified surgical aftercare] 01-20-2024 Episodic Other diseases of bladder and urethra (2 sources) Urethral stricture; Translations: [Unspecified urethral stricture, female] Onset: 4 Episodic Other ear and sense organ disorders (1 source) Hearing loss 12-30-2023 Chronic Other ear and sense organ disorders (13 sources) Hearing loss of right ear; Translations: [Other specified hearing loss, right ear] Onset: 6 10-28-2022 Chronic Other gastrointestinal disorders (13 sources) Irritable bowel syndrome; Translations: [Irritable bowel syndrome without diarrhea] Onset: 4 10-28-2022 Chronic Other lower respiratory disease (1 source) Shortness of breath; Translations: [SHORTNESS OF BREATH] Onset: 3 Episodic Other lower respiratory disease (1 source) Other nonspecific abnormal finding of lung field; Translations: [OTH NONSPECIFIC ABN FIND LNG FIELD] Onset: 3 Episodic Other screening for suspected conditions (not mental disorders or infectious disease) (19 sources) Abnormal findings on diagnostic imaging of other specified body structures; Translations: [Endometrium thickened] Onset: 3 Chronic Other screening for suspected conditions (not mental disorders or infectious disease) (2 sources) Encounter for screening for malignant neoplasm of rectum; Translations: [Encounter for screening mammogram for malignant neoplasm of breast] Onset: 2 Episodic Other skin disorders (4 sources) Localized swelling, mass and lump, neck; Translations: [LOCALIZED SWELLING MASS AND LUMP NECK] Onset: 3 Episodic Other upper respiratory disease (1 source) Other seasonal allergic rhinitis; Translations: [OTHER SEASONAL ALLERGIC RHINITIS] Onset: 2 Chronic Residual codes; unclassified (4 sources) Obstructive sleep apnea (adult) (pediatric); Translations: [OBSTRUCTIVE SLEEP APNEA] Onset: 3 Chronic Residual codes; unclassified (1 source) Obstructive sleep apnea syndrome 12-30-2023 Chronic Screening and history of mental health and substance abuse codes (1 source) Ex-smoker 12-13-2018 Episodic Spondylosis; intervertebral disc disorders; other back problems (13 sources) Cervical disc disorder; Translations: [Cervical disc disorder, unspecified, unspecified cervical region] Onset: 4 10-28-2022 Chronic Unclassified (3 sources) CONTACT W/AND (SUSP) EXPOS COVID-19; Translations: [CONTACT W/AND (SUSP) EXPOS COVID-19] Onset: 3 Unclassified (2 sources) COUGH, UNSPECIFIED; Translations: [COUGH, UNSPECIFIED] Onset: 2 Unclassified (1 source) PERSONAL HISTORY OF COVID-19; Translations: [PERSONAL HISTORY OF COVID-19] Onset: 2 Urinary tract infections (3 sources) Urinary tract infectious disease; Translations: [Urinary tract infection, site not specified] Onset: 4 Episodic Viral infection (1 source) Herpes simplex 11-05-2018 Episodic Viral infection (5 sources) COVID-19; Translations: [COVID-19] Onset: 2 Past or Other Problems Problem Classification Problem Date Documented Date Episodic/Chronic Abdominal pain (15 sources) Acute pelvic pain; Translations: [Pelvic and perineal pain] Onset: 10-28-2022 10-28-2022 Episodic Cardiac dysrhythmias (4 sources) Palpitations; Translations: [PALPITATIONS] Onset: 06-03-2022 Episodic Conditions associated with dizziness or vertigo (13 sources) Intermittent vertigo; Translations: [Dizziness and giddiness] Onset: 04-26-2004 10-28-2022 Episodic Deficiency and other anemia (1 source) Iron deficiency anemia, unspecified; Translations: [IRON DEFICIENCY ANEMIA UNSPECIFIED] Onset: 12-24-2021 Episodic Fluid and electrolyte disorders (4 sources) Dehydration; Translations: [DEHYDRATION] Onset: 12-24-2021 Episodic Headache; including migraine (13 sources) Headache; Translations: [Pressure in head] Onset: 04-26-2015 10-28-2022 Episodic Hepatitis (13 sources) 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; Translations: [Unspecified viral hepatitis without hepatic coma] Onset: 08-14-2013 10-28-2022 Episodic Malaise and fatigue (1 source) Other fatigue; Translations: [OTHER FATIGUE] Onset: 06-05-2022 Episodic Mycoses (2 sources) Mycosis; Translations: [Candidiasis, unspecified] 01-03-2024 Episodic Other aftercare (4 sources) Other vermin exterminator (current) drug therapy; Translations: [OTH FILM REPLACEMENT ORDERER CURRENT DRUG THERAPY] Onset: 12-23-2021 Episodic Other circulatory disease (1 source) Other specified symptoms and signs involving the circulatory and respiratory systems; Translations: [OTH SPEC SX SIGNS INVLV CIRC RS] Onset: 06-05-2022 Episodic Other ear and sense organ disorders (13 sources) Bilateral tinnitus; Translations: [Tinnitus, bilateral] Onset: 10-28-2022 10-28-2022 Episodic Other female genital disorders (2 sources) Burning sensation of vagina; Translations: [Unspecified condition associated with female genital organs and menstrual cycle] 12-21-2023 Episodic Other female genital disorders (2 sources) Pruritus of vagina; Translations: [Other specified noninflammatory disorders of vagina] 12-21-2023 Episodic Other female genital disorders (2 sources) Vulval irritation; Translations: [Other specified noninflammatory disorders of vulva and perineum] 12-29-2023 Episodic Other lower respiratory disease (4 sources) Wheezing; Translations: [WHEEZING] Onset: 01-15-2022 Episodic Other non-traumatic joint disorders (13 sources) Shoulder joint pain; Translations: [Pain in unspecified shoulder] Onset: 10-28-2022 10-28-2022 Episodic Residual codes; unclassified (4 sources) Procedure [...] Test Name Value Interpretation Reference Range Facility ALL CBC WITH AUTO DIFFon BASOPHILS ABSOLUTE AUTO 0.0 [facility] Basophils/100 WBC (Bld) 0.8 % 0.2 - 2.0 % [facility] Eosinophils/100 WBC (Bld) 1.9 % 0.9 - 7.0 % [facility] Erythrocyte distribution width (RBC) [Ratio] 13.4 % 11.0 - 15.0 % [facility] Hematocrit (Bld) [Volume fraction] 43.1 % 36.0 - 48.0 % [facility] Hemoglobin (Bld) [Mass/Vol] 13.9 g/dL 12.0 - 16.0 g/dL [facility] IMMATURE GRANULOCYTES ABS AUTO 0.01 [facility] Immature granulocytes/100 WBC (Bld) 0.2 % 0.0 - 0.5 % [facility] LYMPHOCYTES ABSOLUTE AUTO 1.7 [facility] Lymphocytes/100 WBC (Bld) 32.9 % 20.5 - 60.0 % [facility] MCH (RBC) [Entitic mass] 28.8 pg 26.7 - 34.0 pg [facility] MCHC (RBC) [Mass/Vol] 32.3 g/dL 29.9 - 35.2 g/dL [facility] MCV (RBC) [Entitic vol] 89.2 fL 81.0 - 99.0 fL [facility] MONOCYTES ABSOLUTE AUTO 0.5 [facility] Monocytes/100 WBC (Bld) 9.6 % 1.7 - 12.0 % [facility] NEUTROPHILS ABSOLUTE AUTO 2.8 [facility] Neutrophils/100 WBC (Bld) 54.6 % 43.0 - 75.0 % [facility] Platelet mean volume (Bld) [Entitic vol] 9.7 fL 9.5 - 13.5 fL [facility] EO # 0.1 [facility] PLT 291 [facility] RBC 4.83 [facility] WBC 5.1 [facility] [place] 01-07-2024 L Specimen: [id number] Received: 01/07/24 Status: LAWSON Guzman Num: [id number] Spec Type: Surgical Subm Dr: Katie Rust Tissues: A Endometrial Polyp (ENOMETRIAL POLYP AND CURETTI) Procedures: HE/2, Gross/Micro L4 Age/ Patient Sex Location Account Attending Physician Yulia Dorsey 58/F LABELL [id number] Katie Rust SPEC NUM: [id number] RECD: 01/07/24 STATUS: LAWSON MCNEILLAmee NUM: [id number] TIMOTHY: 01/07/[address]: Katie Rust ENTERED: 01/07/24-[address] [facility] [address]: Cristhian,Lab SPEC TYPE: Surgical DEPT: BIANAC VANN ENTERED BY: [id number] RECV BY: [id number] ORDERED: HE/2, Gross/Micro L4 ORDERED: HE/2, Gross/Micro [...] is entirely submitted cassette A1. CPT Codes 01176 -------- -------- Specimen: [id number] Received: 01/07/24 Status: LAWSON Mcneillamee Num: [id number] Spec Type: Surgical Subm Dr: Katie Rust Tissues: A Endometrial Polyp (ENOMETRIAL POLYP AND CURETTI) Procedures: HE/2, Gross/Micro L4 -------- Patient: Gen Willianrenee Arrieta [id number] (Continued) -------- Signed (signature on file) Tammie Mcclellan MD 01/13/24 1606 [facility] Physician [facility] Patient Letter FTon 2023 Patient Letter [facility] Patient Letter [facility] January 07, 2024 YULIA DORSEY [address] [place] [address] : 1965 Dear Yulia Dorsey, We have been trying to reach you with no success. It is important that you return our call upon receiving this letter. Also, at the time of your call, please provide us with your current information. Thank you for your prompt attention to this matter. Sincerely, [facility] [address] [place] [address] [facility] Ambulatory Visit Summaryon 0 12-30-2023 Ambulatory [...] you for choosing us for your care. [facility] Provider Letteron 12-30-2023 Provider Letter Provider Letter December 30, 2023 YULIA DORSEY [address] [place], [place] [address] [address] : 1965 To Whom It May Concern, Please excuse above patient from work. 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 Kidney stones (N20.0: Calculus of kidney) [...] now. -K (more content not included)... Normal [facility] Comment on above: Result Comment: Elec tronically Signed By: Farideh BARRERA, Bessie Modi\.br\Date and Time Signed: 12/30/23 15:22 EDT URETHRITIS/DISCHARGE PLUS VA GINITIS (HTRX)on 12-22-2023 ATOPOBIUM VAGINAE 0.000 [facility] ATOPOBIUM VAGINAE Not detected [facility] BVAB 2,3 (BACTERIAL VAGINOSIS ASSOCIATED BACTERIA 2, 3); MOBILUNCUS SPP 0.000 [facility] BVAB 2,3 (BACTERIAL VAGINOSIS ASSOCIATED BACTERIA 2, 3); MOBILUNCUS SPP Not detected [facility] ANAT ALBICANS, PARAPSILOSIS, TROPICALIS 0.000 [facility] ANAT ALBICANS, PARAPSILOSIS, TROPICALIS Not detected [facility] ANAT GLABRATA 0.000 [facility] ANAT GLABRATA Not detected [facility] ANAT KRUSEI 0.000 [facility] ANAT KRUSEI Not detected [facility] CHLAMYDIA TRACHOMATIS 0.000 [facility] CHLAMYDIA TRACHOMATIS Not detected [facility] GARDNERELLA VAGINALIS 0.000 [facility] GARDNERELLA VAGINALIS Not detected [facility] MEGASPHAERA (TYPES 1, 2) 0.000 [facility] MEGASPHAERA (TYPES 1, 2) Not detected [facility] MYCOPLASMA GENITALIUM 0.000 [facility] MYCOPLASMA GENITALIUM Not detected [facility] NEISSERIA GONORRHOEAE 0.000 [facility] NEISSERIA GONORRHOEAE Not detected [facility] TRICHOMONAS VAGINALIS 0.000 [facility] TRICHOMONAS VAGINALIS Not detected [facility] Healthcare [facility] MG MAMM DX 3D RT CADon 09-22 MG MAMM DX 3D RT CAD Patient: YULIA DORSEY Exam Date: 09/22/2022 : 1965 Gender:F Ordering : DR KATIE RUST . Admission #: [id number] Family : Order #: [id number] CLICK HERE TO VIEW EXAM RADIOLOGY REPORT [...] Castaneda MD on 09/22/2022 at 15:03 Normal [facility] US BREAST RIGHT LIMITEDon US BREAST RIGHT LIMITED Patient: YUILA DORSEY Exam Date: 09/22/2022 : 1965 Gender:F Ordering : DR KATIE RUST . Admission #: [id number] Family : Order #: [id number] CLICK HERE TO VIEW EXAM RADIOLOGY REPORT [...] Castaneda MD on 09/22/2022 at 15:03 Normal [facility] US ST HEAD_NECKon 05-08-[address] HEAD_NECK EXAM: US ST HEAD_NEC [...] by: GABO STRONG Date: 2022-08-31 08:09 Normal [facility] US PELVIS AND TRANSVAGon US [...] INSULINon 07-04-2022 Insulin 6.2 uIU/mL Normal 2.6-24.9 [facility] Comment on above: Performed By: #### H STRONETO, CMP #### [facility] [address] [place] [address] Dr. Judd Andrade CBC AUTO DIFFon 07-03-2022 BASO # 0.0 103/ul Normal 0.0-0.1 [facility] Comment on above: Performed By: #### C BC #### [facility] [address] [place] [address] Dr. Judd Andrade Basophils/100 WBC (Bld) 1.1 % Normal 0.2-2.0 [facility] Comment on above: Performed By: #### C BC #### [facility] [address] [place] [address] Dr. Judd Andrade EO # 0.1 103/ul Normal 0.0-0.7 [facility] Comment on above: Performed By: #### C BC #### [facility] [address] [place] [address] Dr. Judd Andrade Eosinophils/100 WBC (Bld) 3.6 % Normal 0.9-7.0 [facility] Comment on above: Performed By: #### C BC #### [facility] [address] [place] [address] Dr. Judd Andrade Erythrocyte distribution width (RBC) [Ratio] 13.6 % Normal 11.0-15.0 [facility] Comment on above: Performed By: #### C BC #### [facility] [address] [place] [address] Dr. Judd Andrade Hematocrit (Bld) [Volume fraction] 41.8 % Normal 36.0-48.0 [facility] Comment on above: Performed By: #### C BC #### [facility] [address] [place] [address] Dr. Judd Andrade Hemoglobin (Bld) [Mass/Vol] 13.5 g/dL Normal 12.0-16.0 [facility] Comment on above: Performed By: #### C BC #### [facility] [address] [place] [address] Dr. Judd Andrade IG # 0.01 10e3/ul Normal 0.00-0.03 [facility] Comment on above: Performed By: #### C BC #### [facility] [address] [place] [address] Dr. Judd Andrade IG % 0.3 % Normal 0.0-0.5 [facility] Comment on above: Performed By: #### C BC #### [facility] [address] [place] [address] Dr. Judd Andrade LYMPH # 1.4 103/ul Normal 1.2-3.8 [facility] Comment on above: Performed By: #### C BC #### [facility] [address] [place] [address] Dr. Judd Andrade Lymphocytes/100 WBC (Bld) 38.4 % Normal 20.5-60.0 [facility] Comment on above: Performed By: #### C BC #### [facility] [address] [place] [address] Dr. Judd Andrade MANUAL DIFF REQ NO Normal [facility] Comment on above: Performed By: #### C BC #### [facility] [address] [place] [address] Dr. Judd Andrade MCH (RBC) [Entitic mass] 28.2 pg Normal 26.7-34.0 [facility] Comment on above: Performed By: #### C BC #### [facility] [address] [place] [address] Dr. Judd Andrade MCHC (RBC) [Mass/Vol] 32.3 g/dL Normal 29.9-35.2 [facility] Comment on above: Performed By: #### C BC #### [facility] [address] [place] [address] Dr. Judd Andrade MCV (RBC) [Entitic vol] 87.4 fL Normal 81.0-99.0 [facility] Comment on above: Performed By: #### C BC #### [facility] [address] [place] [address] Dr. Judd Andrade MONO # 0.4 103/ul Normal 0.3-0.8 [facility] Comment on above: Performed By: #### C BC #### [facility] [address] [place] [address] Dr. Judd Andrade Monocytes/100 WBC (Bld) 10.4 % Normal 1.7-12.0 [facility] Comment on above: Performed By: #### C BC #### [facility] [address] [place] [address] Dr. Judd Andrade NEUT # 1.7 103/ul Normal 1.4-6.5 [facility] Comment on above: Performed By: #### C BC #### [facility] [address] [address] [address] Judd Andrade Neutrophils/100 WBC (Bld) 46.2 % Normal 43.0-75.0 [facility] Comment on above: Performed By: #### C BC #### [facility] [address] [place] [address] Dr. Judd Andrade Platelet mean volume (Bld) [Entitic vol] 9.6 fL Normal 9.5-13.5 [facility] Comment on above: Performed By: #### C BC #### [facility] [address] [place] [address] Dr. Judd Andrade PLT 246 103/ul Normal 150-450 [facility] Comment on above: Performed By: #### C BC #### [facility] [address] [place] [address] Dr. Judd Andrade RBC 4.78 106/ul Normal 4.20-5.40 [facility] Comment on above: Performed By: #### C BC #### [facility] [address] [place] [address] Dr. Judd Andrade WBC 3.7 103/ul Critically low 4.0-11.0 [facility] Comment on above: Performed By: #### C BC #### [facility] [address] [place] [address] Dr. Judd Andrade FREE THYROXINE INDEX T7on 0 07-03-2022 FTI 3.20 Normal 1.30-4.50 [facility] Comment on above: Performed By: #### T 7, LIPID, TSH, CMP #### [facility] [address] [place] [address] Dr. Judd Andrade T3U 36.0 % Normal 30.0-39.0 [facility] Comment on above: Performed By: #### T 7, LIPID, TSH, CMP #### [facility] [address] [address] [address] Judd Andrade T4 [Mass/Vol] 8.90 ug/dL Normal 4.80-13.90 [facility] Comment on above: Performed By: #### T 7, LIPID, TSH, CMP #### [facility] [address] [address] [address] Judd Andrade GLYCOHEMOGLOBIN A1Con 2022 ADA RECOMMENDATION SEE BELOW Normal [facility] Comment on above: Result Comment: ADA RECOMMENDED LIMIT 4.0 - 6.0 ADA THERAPEUTIC TARGET < 7.0 ACTION SUGGESTED > 7.0 Performed By: #### C BC #### [facility] [address] [place] [address] Dr. Judd Andrade Glucose [Mass/Vol] 120 mg/dL Normal [facility] Comment on above: Performed By: #### C BC #### [facility] [address] [address] [address] Judd Andrade HbA1c (Bld) [Mass fraction] 5.8 % Normal 4.5-6.2 [facility] Comment on above: Performed By: #### C BC #### [facility] [address] [place] [address] Dr. Judd Andrade IRONon 07-03-2022 Iron [Mass/Vol] 67.0 ug/dL Normal 50.0-170.0 [facility] Comment on above: Performed By: #### V ITAD, IRON #### [facility] [address] [address] [address] Judd Andrade LIPID PROFILEon 07-03-2022 CHOL-HDL RATIO NORM SEE BELOW Normal [facility] Comment on above: Result Comment: 3.3 - 4.4 LOW RISK 4.4 - 7.1 AVERAGE RISK 7.1 - 11.0 MODERATE RISK >11.0 HIGH RISK Performed By: #### T 7, LIPID, TSH, CMP #### [facility] [address] [place] [address] Dr. Judd Andrade Cholesterol [Mass/Vol] 216 mg/dL Critically high <=200 [facility] Comment on above: Performed By: #### T 7, LIPID, TSH, CMP #### [facility] [address] [address] [address] Judd Andrade Cholesterol in HDL [Mass/Vol] 87 mg/dL Critically high 40-60 [facility] Comment on above: Performed By: #### T 7, LIPID, TSH, CMP #### [facility] [address] [address] [address] Judd Andrade Cholesterol in LDL [Mass/Vol] 124.2 mg/dL Normal [facility] Comment on above: Performed By: #### T 7, LIPID, TSH, CMP #### [facility] [address] [place] [address] Dr. Judd Andrade Cholesterol.total/C holesterol in HDL [Mass ratio] 2.5 {ratio} Normal [facility] Comment on above: Performed By: #### T 7, LIPID, TSH, CMP #### [facility] [address] [place] [address] Dr. Judd Andrade HDL NORMAL > or = 60 mg/dl - LO W CARDIOVASCULAR RISK <40 mg/dl - HIGH CARDIOVASCULAR RISK Normal [facility] Comment on above: Performed By: #### T 7, LIPID, TSH, CMP #### [facility] [address] [place] [address] Dr. Judd Andrade LDL CALC NORMAL SEE BELOW Normal [facility] Comment on above: Result Comment: <100 mg/dl OPTIMAL 100 - 129 mg/dl NEAR OR ABOVE OPTIMAL 130 - 159 mg/dl BORDERLINE HIGH 160 - 189 mg/dl HIGH >190 mg/dl VERY HIGH Performed By: #### T 7, LIPID, TSH, CMP #### [facility] [address] [place] [address] Dr. Judd Andrade Triglyceride [Mass/Vol] 24 mg/dL Normal <=150 [facility] Comment on above: Performed By: #### T 7, LIPID, TSH, CMP #### [facility] [address] [place] [address] Dr. Judd Andrade VLDL CALC 4.8 mg/dL Normal [facility] Comment on above: Performed By: #### T 7, LIPID, TSH, CMP #### [facility] [address] [address] [address] Judd Andrade PROF 14(COMP METB)on 023 Albumin [Mass/Vol] 4.0 g/dL Normal 3.4-5.0 [facility] Comment on above: Performed By: #### T 7, LIPID, TSH, CMP #### [facility] [address] [place] [address] Dr. Judd Andrade Albumin/Globulin [Mass ratio] 1.1 {ratio} Normal [facility] Comment on above: Performed By: #### T 7, LIPID, TSH, CMP #### [facility] [address] [place] [address] Dr. Judd Andrade ALP [Catalytic activity/Vol] 78 U/L Normal 46-116 [facility] Comment on above: Performed By: #### T 7, LIPID, TSH, CMP #### [facility] [address] [place] [address] Dr. Judd Andrade ALT [Catalytic activity/Vol] 29 U/L Normal 14-59 [facility] Comment on above: Performed By: #### T 7, LIPID, TSH, CMP #### [facility] [address] [address] [address] Judd Andrade Anion gap [Moles/Vol] 5.6 mmol/L Normal [facility] Comment on above: Performed By: #### T 7, LIPID, TSH, CMP #### [facility] [address] [address] [address] Judd Andrade AST [Catalytic activity/Vol] 23 U/L Normal 15-37 [facility] Comment on above: Performed By: #### T 7, LIPID, TSH, CMP #### [facility] [address] [place] [address] Dr. Judd Andrade Bilirubin [Mass/Vol] 0.5 mg/dL Normal 0.2-1.0 [facility] Comment on above: Performed By: #### T 7, LIPID, TSH, CMP #### [facility] [address] [address] [address] Judd Andrade Calcium [Mass/Vol] 8.9 mg/dL Normal 8.5-10.1 [facility] Comment on above: Performed By: #### T 7, LIPID, TSH, CMP #### [facility] [address] [place] [address] Dr. Judd Andrade Chloride [Moles/Vol] 105 mmol/L Normal 98-107 [facility] Comment on above: Performed By: #### T 7, LIPID, TSH, CMP #### [facility] [address] [place] [address] Dr. Judd Andrade CO2 [Moles/Vol] 32.0 mmol/L Normal 21.0-32.0 [facility] Comment on above: Performed By: #### T 7, LIPID, TSH, CMP #### [facility] [address] [place] [address] Dr. Judd Andrade Creatinine [Mass/Vol] 0.52 mg/dL Critically low 0.55-1.02 [facility] Comment on above: Performed By: #### T 7, LIPID, TSH, CMP #### [facility] [address] [place] [address] Dr. Judd Andrade EGFR-AF PARAGUAYAN >60 Normal >=60 [facility] Comment on above: Performed By: #### T 7, LIPID, TSH, CMP #### [facility] [address] [place] [address] Dr. Judd Andrade EGFR-NON AF PARAGUAYAN >60 Normal >=60 [facility] Comment on above: Performed By: #### T 7, LIPID, TSH, CMP #### [facility] [address] [place] [address] Dr. Judd Andrade Globulin (S) [Mass/Vol] 3.6 g/dL Normal [facility] Comment on above: Performed By: #### T 7, LIPID, TSH, CMP #### [facility] [address] [place] [address] Dr. Judd Andrade Glucose [Mass/Vol] 89 mg/dL Normal 74-106 [facility] Comment on above: Performed By: #### T 7, LIPID, TSH, CMP #### [facility] [address] [place] [address] Dr. Judd Andrade Potassium [Moles/Vol] 4.2 mmol/L Normal 3.5-5.1 [facility] Comment on above: Performed By: #### T 7, LIPID, TSH, CMP #### [facility] [address] [place] [address] Dr. Judd Andrade Protein [Mass/Vol] 7.6 g/dL Normal 6.4-8.2 [facility] Comment on above: Performed By: #### T 7, LIPID, TSH, CMP #### [facility] [address] [place] [address] Dr. Judd Andrade Sodium [Moles/Vol] 139 mmol/L Normal 136-145 [facility] Comment on above: Performed By: #### T 7, LIPID, TSH, CMP #### [facility] [address] [place] [address] Dr. Judd Andrade Urea nitrogen [Mass/Vol] 11.0 mg/dL Normal 7.0-18.0 [facility] Comment on above: Performed By: #### T 7, LIPID, TSH, CMP #### [facility] [address] [place] [address] Dr. Judd Andrade Urea nitrogen/Creatinine [Mass ratio] 21.2 mg/mg Normal [facility] Comment on above: Performed By: #### T 7, LIPID, TSH, CMP #### [facility] [address] [place] [address] Dr. Judd Andrade TSHon 07-03-2022 TSH 1.037 uIU/mL Normal 0.358-3.740 [facility] Comment on above: Performed By: #### T 7, LIPID, TSH, CMP #### [facility] [address] [place] [address] Dr. Judd Andrade VITAMIN D 25 OHon 07-03-2022 VIT D 25-OH 32.8 ng/mL Normal [facility] Comment on above: Performed By: #### V CARMELO, IRON #### [facility] [address] [place] [address] Dr. Judd Andrade VIT D RANGES SEE BELOW Normal [facility] Comment on above: Result Comment: <20 ng/mL Vit D deficient 20 - <30 ng/mL Vit D insufficient 30 - 100 ng/mL Vit D sufficient >100 ng/mL Potential Toxicity Performed By: #### V CARMELO, IRON #### [facility] [address] [place] [address] Dr. Judd Andrade BORDETELLA PERTUSSIS AB IGGo n 06-30-2022 B pertussis IgG Ab 3.88 index Invalid Interpretation Code 0.00-0.94 [facility] Comment on above: Result Comment: Clie nt Requested Flag Negative <0.95 Equivocal 0.95 - 1.04 Positive >1.04 Performed By: #### C BC #### [facility] [address] [place] [address] Dr. Judd Andrade BORDETELLA PERTUSSIS AB IGMo n 06-30-2022 B pertussis IgM Ab <1.0 Normal 0.0-0.9 [facility] Comment on above: Result Comment: Nega tive <1.0 Borderline 1.0 - 1.1 Positive >1.1 Performed By: #### H DEB, CMP #### [facility] [address] [place] [address] Dr. Judd Andrade [id number] 2022 [id number] , Serum 158 mg/dL Normal 101-187 [facility] Comment on above: Performed By: #### C BC #### [facility] [address] [place] [address] Dr. Judd Andrade CBC AUTO DIFFon 06-03-2022 BASO # 0.0 103/ul Normal 0.0-0.1 [facility] Comment on above: Performed By: #### H DEB, CMP #### [facility] [address] [place] [address] Dr. Judd Andrade Basophils/100 WBC (Bld) 0.6 % Normal 0.2-2.0 [facility] Comment on above: Performed By: #### H STROPN, CMP #### [facility] [address] [place] [address] Dr. Judd Andrade EO # 0.0 103/ul Normal 0.0-0.7 [facility] Comment on above: Performed By: #### H STROPN, CMP #### [facility] [address] [place] [address] Dr. Judd Andrade Eosinophils/100 WBC (Bld) 0.6 % Critically low 0.9-7.0 [facility] Comment on above: Performed By: #### H STROPN, CMP #### [facility] [address] [place] [address] Dr. Judd Andrade Erythrocyte distribution width (RBC) [Ratio] 13.5 % Normal 11.0-15.0 [facility] Comment on above: Performed By: #### H STROPN, CMP #### [facility] [address] [place] [address] Dr. Judd Andrade Hematocrit (Bld) [Volume fraction] 42.4 % Normal 36.0-48.0 [facility] Comment on above: Performed By: #### H STROPN, CMP #### [facility] [address] [place] [address] Dr. Judd Andrade Hemoglobin (Bld) [Mass/Vol] 13.4 g/dL Normal 12.0-16.0 [facility] Comment on above: Performed By: #### H STROPN, CMP #### [facility] [address] [place] [address] Dr. Judd Andrade IG # 0.01 10e3/ul Normal 0.00-0.03 [facility] Comment on above: Performed By: #### H STROPN, CMP #### [facility] [address] [place] [address] Dr. Judd Andrade IG % 0.2 % Normal 0.0-0.5 [facility] Comment on above: Performed By: #### H STROPN, CMP #### [facility] [address] [place] [address] Dr. Judd Andrade LYMPH # 1.1 103/ul Critically low 1.2-3.8 [facility] Comment on above: Performed By: #### H DEB, CMP #### [facility] [address] [place] [address] Dr. Judd Andrade Lymphocytes/100 WBC (Bld) 23.5 % Normal 20.5-60.0 [facility] Comment on above: Performed By: #### H STROPN, CMP #### [facility] [address] [place] [address] Dr. Judd Andrade MANUAL DIFF REQ NO Normal [facility] Comment on above: Performed By: #### H TERAPN, CMP #### [facility] [address] [place] [address] Dr. Judd Andrade MCH (RBC) [Entitic mass] 28.9 pg Normal 26.7-34.0 [facility] Comment on above: Performed By: #### H DEB, CMP #### [facility] [address] [place] [address] Dr. Judd Andrade MCHC (RBC) [Mass/Vol] 31.6 g/dL Normal 29.9-35.2 [facility] Comment on above: Performed By: #### H DEB, CMP #### [facility] [address] [place] [address] Dr. Judd Andrade MCV (RBC) [Entitic vol] 91.6 fL Normal 81.0-99.0 [facility] Comment on above: Performed By: #### H TERAPN, CMP #### [facility] [address] [place] [address] Dr. Judd Andrade MONO # 0.8 103/ul Normal 0.3-0.8 [facility] Comment on above: Performed By: #### H STROPN, CMP #### [facility] [address] [place] [address] Dr. Judd Andrade Monocytes/100 WBC (Bld) 16.5 % Critically high 1.7-12.0 [facility] Comment on above: Performed By: #### H STROPN, CMP #### [facility] [address] [place] [address] Dr. Judd Andrade NEUT # 2.7 103/ul Normal 1.4-6.5 [facility] Comment on above: Performed By: #### H DEB, CMP #### [facility] [address] [place] [address] Dr. Judd Andrade Neutrophils/100 WBC (Bld) 58.6 % Normal 43.0-75.0 [facility] Comment on above: Performed By: #### H DEB, CMP #### [facility] [address] [place] [address] Dr. Judd Andrade Platelet mean volume (Bld) [Entitic vol] 9.8 fL Normal 9.5-13.5 [facility] Comment on above: Performed By: #### H DEB, CMP #### [facility] [address] [place] [address] Dr. Judd Andrade PLT 252 103/ul Normal 150-450 [facility] Comment on above: Performed By: #### H DEB, CMP #### [facility] [address] [place] [address] Dr. Judd Andrade RBC 4.63 106/ul Normal 4.20-5.40 [facility] Comment on above: Performed By: #### H DEB, CMP #### [facility] [address] [place] [address] Dr. Judd Andrade WBC 4.7 103/ul Normal 4.0-11.0 [facility] Comment on above: Performed By: #### H DEB, CMP #### [facility] [address] [place] [address] Dr. Judd Andrade PROF 14(COMP METB)on 023 Albumin [Mass/Vol] 4.0 g/dL Normal 3.4-5.0 [facility] Comment on above: Performed By: #### H DEB, CMP #### [facility] [address] [place] [address] Dr. Judd Andrade Albumin/Globulin [Mass ratio] 1.0 {ratio} Normal [facility] Comment on above: Performed By: #### H DEB, CMP #### [facility] [address] [address] [address] Judd Andrade ALP [Catalytic activity/Vol] 77 U/L Normal 46-116 [facility] Comment on above: Performed By: #### H STROPN, CMP #### [facility] [address] [address] [address] Judd Andrade ALT [Catalytic activity/Vol] 33 U/L Normal 14-59 [facility] Comment on above: Performed By: #### H STROPN, CMP #### [facility] [address] [address] [address] Judd Andrade Anion gap [Moles/Vol] 8.0 mmol/L Normal [facility] Comment on above: Performed By: #### H STROPN, CMP #### [facility] [address] [place] [address] Dr. Judd Andrade AST [Catalytic activity/Vol] 28 U/L Normal 15-37 [facility] Comment on above: Performed By: #### H STROPN, CMP #### [facility] [address] [address] [address] Judd Andrade Bilirubin [Mass/Vol] 0.6 mg/dL Normal 0.2-1.0 [facility] Comment on above: Performed By: #### H STROPN, CMP #### [facility] [address] [place] [address] Dr. Judd Andrade Calcium [Mass/Vol] 9.3 mg/dL Normal 8.5-10.1 [facility] Comment on above: Performed By: #### H STROPN, CMP #### [facility] [address] [place] [address] Dr. Judd Andrade Chloride [Moles/Vol] 103 mmol/L Normal 98-107 [facility] Comment on above: Performed By: #### H STROPN, CMP #### [facility] [address] [address] [address] Judd Andrade CO2 [Moles/Vol] 33.6 mmol/L Critically high 21.0-32.0 [facility] Comment on above: Performed By: #### H STROPN, CMP #### [facility] [address] [address] [address] Judd Andrade Creatinine [Mass/Vol] 0.59 mg/dL Normal 0.55-1.02 [facility] Comment on above: Performed By: #### H STROPN, CMP #### [facility] [address] [address] [address] Judd Andrade EGFR-AF PARAGUAYAN >60 Normal >=60 [facility] Comment on above: Performed By: #### H STROPN, CMP #### [facility] [address] [address] [address] Judd Andrade EGFR-NON AF PARAGUAYAN >60 Normal >=60 [facility] Comment on above: Performed By: #### H STROPN, CMP #### [facility] [address] [address] [address] Judd Andrade Globulin (S) [Mass/Vol] 4.0 g/dL Normal [facility] Comment on above: Performed By: #### H STROPN, CMP #### [facility] [address] [address] [address] Judd Andrade Glucose [Mass/Vol] 130 mg/dL Critically high 74-106 [facility] Comment on above: Performed By: #### H STROPN, CMP #### [facility] [address] [address] [address] Judd Andrade Potassium [Moles/Vol] 3.6 mmol/L Normal 3.5-5.1 [facility] Comment on above: Performed By: #### H STROPN, CMP #### [facility] [address] [address] [address] Judd Andrade Protein [Mass/Vol] 8.0 g/dL Normal 6.4-8.2 [facility] Comment on above: Performed By: #### H STROPN, CMP #### [facility] [address] [address] [address] Judd Andrade Sodium [Moles/Vol] 141 mmol/L Normal 136-145 [facility] Comment on above: Performed By: #### H STROPN, CMP #### [facility] [address] [place], [place] [address] Dr. Judd Andrade Urea nitrogen [Mass/Vol] 8.0 mg/dL Normal 7.0-18.0 [facility] Comment on above: Performed By: #### H TERAPN, CMP #### [facility] [address] [place], [place] [address] Dr. Judd Andrade Urea nitrogen/Creatinine [Mass ratio] 13.6 mg/mg Normal [facility] Comment on above: Performed By: #### H TERAPN, CMP #### [facility] [address] [place], [place] [address] Dr. Judd Andrade TROPONIN, HIGH SENSITIVITYon 06-03-2022 HSTROP <4.0 Normal 4.0-51.3 [facility] Comment on above: Result Comment: CUT- OFF POINTS HAVE BEEN ESTABLISHED BASED ON THE FOURTH UNIVERSAL DEFINITIONS OF MYOCARDIAL INFARCTION. THE UPPER REFERENCE LIMIT (URL) OF TROPONIN, DEFINED THE 99TH PERCENTILE OF cTnI DISTRIBUTION IN A REFERENCE POPULATION, HAS BEEN CONFIRMED THE DECISION THRESHOLD FOR [place] DIAGNOSIS. Performed By: #### H TERAPN, CMP #### [facility] [address] [address] [address] Judd Andrade XR CHEST 2 Von [...] [facility] Covid-19 PCR (CVDTBH)on SARS-CoV-2 (COVID-19) RNA [...] for this test is supported by the Product Sales Engineer of Health and Human Service's (HHS's) declaration [...] CMP #### [facility] [address] [place] [address] Dr. Judd Andrade INFLUENZA A AND B AGon 06-02 [facility] SEE BELOW Normal [facility] Comment on above: Result Comment: Nega tive for Flu A protein angiten. Infection due to Flu A cannot be ruled out. Flu A angiten in the sample may be below the detection limit of the test. Performed By: #### H DEB, CMP #### [facility] [address] [place] [address] Dr. Judd Andrade [facility] BEL[facility] Comment on above: Result Comment: Nega tive for Flu B protein antigen. Infection due to Flu B cannot be ruled out. Flu B antigen in the sample may be below the detection limit of the test. Performed By: #### H STROPN, CMP #### [facility] Laboratory [address] [place] [address] Dr. Judd Andrade INFLUENZA A AG Negative Normal NEGATIVE SEE COMMENT [facility] Comment on above: Performed By: #### H STROPN, CMP #### [facility] [address] [place] [address] Dr. Judd Andrade INFLUENZA B AG Negative Normal NEGATIVE SEE COMMENT [facility] Comment on above: Performed By: #### H STROPN, CMP #### [facility] [address] [address] [address] Judd [address] US ST HEAD_NECKon 02-11-2022 [...] GABO STRONG Date: 2022-02-11 16:24 Normal [facility] MAMM SCREEN 3D SUSANA CADon 02-10-2022 MAMM SCREEN 3D SUSANA CAD Patient: YULIA DORSEY Exam Date: 02/10/2022 : 1965 Gender:F Ordering : DR JOHN PORTER . Admission #: [id number] Family : Order #: [id number] CLICK HERE TO VIEW EXAM RADIOLOGY REPORT [...] 12-30-2021 BASO # 0.0 103/ul Normal 0.0-0.1 [facility] Comment on above: Performed By: #### C BC #### [facility] [address] [address] [address] Judd Andrade Basophils/100 WBC (Bld) 0.6 % Normal 0.2-2.0 [facility] Comment on above: Performed By: #### C BC #### [facility] [address] [address] [address] Judd Andrade EO # 0.1 103/ul Normal 0.0-0.7 [facility] Comment on above: Performed By: #### C BC #### [facility] [address] [place] [address] Dr. Jdud Andrade Eosinophils/100 WBC (Bld) 2.1 % Normal 0.9-7.0 [facility] Comment on above: Performed By: #### C BC #### [facility] [address] [address] [address] Judd Andrade Erythrocyte distribution width (RBC) [Ratio] 13.0 % Normal 11.0-15.0 [facility] Comment on above: Performed By: #### C BC #### [facility] [address] [address] [address] Judd Andrade Hematocrit (Bld) [Volume fraction] 41.9 % Normal 36.0-48.0 [facility] Comment on above: Performed By: #### C BC #### [facility] [address] [place] [address] Dr. Judd Andrade Hemoglobin (Bld) [Mass/Vol] 13.7 g/dL Normal 12.0-16.0 [facility] Comment on above: Performed By: #### C BC #### [facility] [address] [place] [address] Dr. Judd Andrade IG # 0.03 10e3/ul Normal 0.00-0.03 [facility] Comment on above: Performed By: #### C BC #### [facility] [address] [place] [address] Dr. Jdud Andrade IG % 0.6 % Critically high 0.0-0.5 [facility] Comment on above: Performed By: #### C BC #### [facility] [address] [place] [address] Dr. Judd Andrade LYMPH # 1.9 103/ul Normal 1.2-3.8 [facility] Comment on above: Performed By: #### C BC #### [facility] [address] [place] [address] Dr. Judd Andrade Lymphocytes/100 WBC (Bld) 34.5 % Normal 20.5-60.0 [facility] Comment on above: Performed By: #### C BC #### [facility] [address] [place] [address] Dr. Judd Andrade MANUAL DIFF REQ NO Normal [facility] Comment on above: Performed By: #### C BC #### [facility] [address] [place] [address] Dr. Judd Andrade MCH (RBC) [Entitic mass] 28.5 pg Normal 26.7-34.0 [facility] Comment on above: Performed By: #### C BC #### [facility] [address] [place] [address] Dr. Judd Andrade MCHC (RBC) [Mass/Vol] 32.7 g/dL Normal 29.9-35.2 [facility] Comment on above: Performed By: #### C BC #### [facility] [address] [place] [address] Dr. Judd Andrade MCV (RBC) [Entitic vol] 87.1 fL Normal 81.0-99.0 [facility] Comment on above: Performed By: #### C BC #### [facility] [address] [place] [address] Dr. Judd Andrade MONO # 0.6 103/ul Normal 0.3-0.8 [facility] Comment on above: Performed By: #### C BC #### [facility] [address] [place] [address] Dr. Judd Andrade Monocytes/100 WBC (Bld) 10.4 % Normal 1.7-12.0 [facility] Comment on above: Performed By: #### C BC #### [facility] [address] [place] [address] Dr. Judd Andrade NEUT # 2.8 103/ul Normal 1.4-6.5 [facility] Comment on above: Performed By: #### C BC #### [facility] [address] [place] [address] Dr. Judd Andrade Neutrophils/100 WBC (Bld) 51.8 % Normal 43.0-75.0 [facility] Comment on above: Performed By: #### C BC #### [facility] [address] [place] [address] Dr. Judd Andrade Platelet mean volume (Bld) [Entitic vol] 10.5 fL Normal 9.5-13.5 [facility] Comment on above: Performed By: #### C BC #### [facility] [address] [place] [address] Dr. Judd Andrade PLT 270 103/ul Normal 150-450 [facility] Comment on above: Performed By: #### C BC #### [facility] [address] [place] [address] Dr. Judd Andrade RBC 4.81 106/ul Normal 4.20-5.40 [facility] Comment on above: Performed By: #### C BC #### [facility] [address] [place] [address] Dr. Judd Andrade WBC 5.4 103/ul Normal 4.0-11.0 [facility] Comment on above: Performed By: #### C BC #### [facility] [address] [place] [address] Dr. Judd Andrade CRPon 12-30-2021 CRP [Mass/Vol] mg/L Normal <=1.0 [facility] Comment on above: Performed By: #### C BC #### [facility] [address] [place] [address] Dr. Judd Andrade PROF 14(COMP METB)on 022 Albumin [Mass/Vol] 3.9 g/dL Normal 3.4-5.0 [facility] Comment on above: Performed By: #### C BC #### [facility] [address] [place] [address] Dr. Judd Andrade Albumin/Globulin [Mass ratio] 1.0 {ratio} Normal [facility] Comment on above: Performed By: #### C BC #### [facility] [address] [place] [address] Dr. Judd Andrade ALP [Catalytic activity/Vol] 64 U/L Normal 46-116 [facility] Comment on above: Performed By: #### C BC #### [facility] [address] [place] [address] Dr. Judd Andrade ALT [Catalytic activity/Vol] 50 U/L Normal 14-59 [facility] Comment on above: Performed By: #### C BC #### [facility] [address] [place] [address] Dr. Judd Andrade Anion gap [Moles/Vol] 11.1 mmol/L Normal [facility] Comment on above: Performed By: #### C BC #### [facility] [address] [place] [address] Dr. Judd Andrade AST [Catalytic activity/Vol] 28 U/L Normal 15-37 [facility] Comment on above: Performed By: #### C BC #### [facility] [address] [place] [address] Dr. Judd Andrade Bilirubin [Mass/Vol] 0.5 mg/dL Normal 0.2-1.0 [facility] Comment on above: Performed By: #### C BC #### [facility] [address] [address] [address] Judd Andrade Calcium [Mass/Vol] 8.9 mg/dL Normal 8.5-10.1 [facility] Comment on above: Performed By: #### C BC #### [facility] [address] [address] [address] Judd Andrade Chloride [Moles/Vol] 101 mmol/L Normal 98-107 [facility] Comment on above: Performed By: #### C BC #### [facility] [address] [address] [address] Judd Andrade CO2 [Moles/Vol] 29.4 mmol/L Normal 21.0-32.0 [facility] Comment on above: Performed By: #### C BC #### [facility] [address] [address] [address] Judd Andrade Creatinine [Mass/Vol] 0.73 mg/dL Normal 0.55-1.02 [facility] Comment on above: Performed By: #### C BC #### [facility] [address] [address] [address] Judd Andrade EGFR-AF PARAGUAYAN >60 Normal >=60 [facility] Comment on above: Performed By: #### C BC #### [facility] [address] [address] [address] Judd Andrade EGFR-NON AF PARAGUAYAN >60 Normal >=60 [facility] Comment on above: Performed By: #### C BC #### [facility] [address] [address] [address] Judd Andrade Globulin (S) [Mass/Vol] 3.8 g/dL Normal [facility] Comment on above: Performed By: #### C BC #### [facility] [address] [address] [address] Judd Andrade Glucose [Mass/Vol] 139 mg/dL Critically high 74-106 [facility] Comment on above: Performed By: #### C BC #### [facility] [address] [place], [place] [address] Dr. Judd Andrade Potassium [Moles/Vol] 3.5 mmol/L Normal 3.5-5.1 [facility] Comment on above: Performed By: #### C BC #### [facility] [address] [address] [address] Judd Andrade Protein [Mass/Vol] 7.7 g/dL Normal 6.4-8.2 [facility] Comment on above: Performed By: #### C BC #### [facility] [address] [id number] Judd Andrade Sodium [Moles/Vol] 138 mmol/L Normal 136-145 [facility] Comment on above: Performed By: #### C BC #### [facility] [address] [address] [address] Judd Andrade Urea nitrogen [Mass/Vol] 12.0 mg/dL Normal 7.0-18.0 [facility] Comment on above: Performed By: #### C BC #### [facility] [address] [address] [address] Judd Andrade Urea nitrogen/Creatinine [Mass ratio] 16.4 mg/mg Normal [facility] Comment on above: Performed By: #### C BC #### [facility] [id number] Judd Andrade XR CHEST 2 Von [...] #### [facility] [id number] Judd Andrade CBC AUTO DIFFon 12-23-2021 BASO # 0.0 103/ul Normal 0.0-0.1 [facility] Comment on above: Performed By: #### H STROPN, CMP #### [facility] [address] [place] [address] Dr. Judd Andrade Basophils/100 WBC (Bld) 0.7 % Normal 0.2-2.0 [facility] Comment on above: Performed By: #### H STROPN, CMP #### [facility] [address] [place] [address] Dr. Judd Andrade EO # 0.0 103/ul Normal 0.0-0.7 [facility] Comment on above: Performed By: #### H STROPN, CMP #### [facility] [address] [place] [address] Dr. Judd Andrade Eosinophils/100 WBC (Bld) 0.0 % Critically low 0.9-7.0 [facility] Comment on above: Performed By: #### H STROPN, CMP #### [facility] [address] [place] [address] Dr. Judd Andrade Erythrocyte distribution width (RBC) [Ratio] 13.2 % Normal 11.0-15.0 [facility] Comment on above: Performed By: #### H STROPN, CMP #### [facility] [address] [place] [address] Dr. Judd Andrade Hematocrit (Bld) [Volume fraction] 42.1 % Normal 36.0-48.0 [facility] Comment on above: Performed By: #### H STROPN, CMP #### [facility] [address] [place] [address] Dr. Judd Andrade Hemoglobin (Bld) [Mass/Vol] 13.7 g/dL Normal 12.0-16.0 [facility] Comment on above: Performed By: #### H STROPN, CMP #### [facility] [address] [place] [address] Dr. Judd Andrade IG # 0.01 10e3/ul Normal 0.00-0.03 [facility] Comment on above: Performed By: #### H STROPN, CMP #### [facility] [address] [address] [address] Judd Andrade IG % 0.3 % Normal 0.0-0.5 [facility] Comment on above: Performed By: #### H STROPN, CMP #### [facility] [address] [address] [address] Judd Andrade LYMPH # 0.7 103/ul Critically low 1.2-3.8 [facility] Comment on above: Performed By: #### H STROPN, CMP #### [facility] [address] [address] [address] Judd Andrade Lymphocytes/100 WBC (Bld) 24.1 % Normal 20.5-60.0 [facility] Comment on above: Performed By: #### H STROPN, CMP #### [facility] [address] [address] [address] Judd Andrade MANUAL DIFF REQ NO Normal [facility] Comment on above: Performed By: #### H STROPN, CMP #### [facility] [address] [address] [address] Judd Andrade MCH (RBC) [Entitic mass] 28.4 pg Normal 26.7-34.0 [facility] Comment on above: Performed By: #### H STROPN, CMP #### [facility] [address] [address] [address] Judd Andrade MCHC (RBC) [Mass/Vol] 32.5 g/dL Normal 29.9-35.2 [facility] Comment on above: Performed By: #### H STROPN, CMP #### [facility] [address] [address] [address] Judd Andrade MCV (RBC) [Entitic vol] 87.2 fL Normal 81.0-99.0 [facility] Comment on above: Performed By: #### H STROPN, CMP #### [facility] [address] [address] [address] Judd Andrade MONO # 0.5 103/ul Normal 0.3-0.8 [facility] Comment on above: Performed By: #### H STROPN, CMP #### [facility] [address] [address] [address] Judd Andrade Monocytes/100 WBC (Bld) 16.9 % Critically high 1.7-12.0 [facility] Comment on above: Performed By: #### H STROPN, CMP #### [facility] [address] [place] [address] Dr. Judd Andrade NEUT # 1.8 103/ul Normal 1.4-6.5 [facility] Comment on above: Performed By: #### H STROPN, CMP #### [facility] [address] [place] [address] Dr. Judd Andrade Neutrophils/100 WBC (Bld) 58.0 % Normal 43.0-75.0 [facility] Comment on above: Performed By: #### H STROPN, CMP #### [facility] [address] [place] [address] Dr. Judd Andrade Platelet mean volume (Bld) [Entitic vol] 9.9 fL Normal 9.5-13.5 [facility] Comment on above: Performed By: #### H STROPN, CMP #### [facility] [address] [place] [address] Dr. Judd Andrade PLT 210 103/ul Normal 150-450 [facility] Comment on above: Performed By: #### H STROPN, CMP #### [facility] [address] [place] [address] Dr. Judd Andrade RBC 4.83 106/ul Normal 4.20-5.40 [facility] Comment on above: Performed By: #### H STROPN, CMP #### [facility] [address] [place] [address] Dr. Judd Andrade WBC 3.1 103/ul Critically low 4.0-11.0 [facility] Comment on above: Performed By: #### H STROPN, CMP #### [facility] [address] [place] [address] Dr. Judd Andrade IRONon 12-23-2021 Iron [Mass/Vol] 35.0 ug/dL Critically low 50.0-170.0 [facility] Comment on above: Performed By: #### C BC #### [facility] [address] [place] [address] Dr. Judd Andrade PROF 14(COMP METB)on Albumin [Mass/Vol] 3.9 g/dL Normal 3.4-5.0 [facility] Comment on above: Performed By: #### C BC #### [facility] [address] [place] [address] Dr. Judd Andrade Albumin/Globulin [Mass ratio] 1.0 {ratio} Normal [facility] Comment on above: Performed By: #### C BC #### [facility] [address] [place] [address] Dr. Judd Andrade ALP [Catalytic activity/Vol] 70 U/L Normal 46-116 [facility] Comment on above: Performed By: #### C BC #### [facility] [address] [place] [address] Dr. Judd Andrade ALT [Catalytic activity/Vol] 43 U/L Normal 14-59 [facility] Comment on above: Performed By: #### C BC #### [facility] [address] [place] [address] Dr. Judd Andrade Anion gap [Moles/Vol] 11.5 mmol/L Normal [facility] Comment on above: Performed By: #### C BC #### [facility] [address] [place] [address] Dr. Judd Andrade AST [Catalytic activity/Vol] 33 U/L Normal 15-37 [facility] Comment on above: Performed By: #### C BC #### [facility] [address] [place] [address] Dr. Judd Andrade Bilirubin [Mass/Vol] 0.3 mg/dL Normal 0.2-1.0 [facility] Comment on above: Performed By: #### C BC #### [facility] [address] [place] [address] Dr. Judd Andrade Calcium [Mass/Vol] 8.9 mg/dL Normal 8.5-10.1 [facility] Comment on above: Performed By: #### C BC #### [facility] [address] [place] [address] Dr. Judd Andrade Chloride [Moles/Vol] 101 mmol/L Normal 98-107 [facility] Comment on above: Performed By: #### C BC #### [facility] [address] [place] [address] Dr. Judd Andrade CO2 [Moles/Vol] 31.1 mmol/L Normal 21.0-32.0 [facility] Comment on above: Performed By: #### C BC #### [facility] [address] [place] [address] Dr. Judd Andrade Creatinine [Mass/Vol] 0.69 mg/dL Normal 0.55-1.02 [facility] Comment on above: Performed By: #### C BC #### [facility] [address] [place] [address] Dr. Judd Andrade EGFR-AF PARAGUAYAN >60 Normal >=60 [facility] Comment on above: Performed By: #### C BC #### [facility] [address] [place] [address] Dr. Judd Andrade EGFR-NON AF PARAGUAYAN >60 Normal >=60 [facility] Comment on above: Performed By: #### C BC #### [facility] [address] [place] [address] Dr. Judd Andrade Globulin (S) [Mass/Vol] 3.8 g/dL Normal [facility] Comment on above: Performed By: #### C BC #### [facility] [address] [place] [address] Dr. Judd Andrade Glucose [Mass/Vol] 103 mg/dL Normal 74-106 [facility] Comment on above: Performed By: #### C BC #### [facility] [address] [place] [address] Dr. Judd Andrade Potassium [Moles/Vol] 3.6 mmol/L Normal 3.5-5.1 [facility] Comment on above: Performed By: #### C BC #### [facility] [address] [address] [address] Judd Andrade Protein [Mass/Vol] 7.7 g/dL Normal 6.4-8.2 [facility] Comment on above: Performed By: #### C BC #### [facility] [address] [address] [address] Judd Andrade Sodium [Moles/Vol] 140 mmol/L Normal 136-145 [facility] Comment on above: Performed By: #### C BC #### [facility] [address] [address] [address] Judd Andrade Urea nitrogen [Mass/Vol] 11.0 mg/dL Normal 7.0-18.0 [facility] Comment on above: Performed By: #### C BC #### [facility] [address] [place] [address] Dr. Judd Andrade Urea nitrogen/Creatinine [Mass ratio] 15.9 mg/mg Normal [facility] Comment on above: Performed By: #### C BC #### [facility] [address] [place] [address] Dr. Judd Andrade PROTIMEon 12-23-2021 INR Coag (PPP) [Relative time] 1.04 {INR} Normal [facility] Comment on above: Performed By: #### H DEB, CMP #### [facility] [address] [address] [address] Judd Andrade INR GUIDELINES SEE BELOW Normal [facility] Comment on above: Result Comment: PRIETO RED INR: 2.0 - 3.0 CONDITIONS NOT LISTED BELOW 2.5 - 3.5 FOR PROSTHETIC HEART VALVE REPLACEMENT 2.5 - 3.5 RECURRENT THROMBOSIS Performed By: #### H DEB, CMP #### [facility] [address] [place] [address] Dr. Judd Andrade PT Coag (PPP) [Time] 11.2 s Normal 9.0-11.6 [facility] Comment on above: Performed By: #### H DEB, CMP #### [facility] [address] [place] [address] Dr. Judd Andrade PTTon 12-23-2021 aPTT Coag (Bld) [Time] 31.5 s Normal 22.3-36.2 [facility] Comment on above: Performed By: #### H TERAPN, CMP #### [facility] [address] [address] [address] Judd Andrade ER URINE PROFILEon Bilirubin Ql (U) Negative Normal NEGATIVE [facility] Comment on above: Performed By: #### H STROPN, CMP #### [facility] [address] [address] [address] Judd Andrade Clarity (U) CLEAR Normal CLEAR [facility] Comment on above: Performed By: #### H TERAPN, CMP #### [facility] [address] [place] [address] Dr. Judd Andrade Color (U) LT. YELLOW Normal YELLOW [facility] Comment on above: Performed By: #### H DEB, CMP #### [facility] [address] [place] [address] Dr. Judd Andrade ERUSUZY A micrscopic examination will be performed if indicated. Normal [facility] Comment on above: Performed By: #### H TERAPN, CMP #### [facility] [address] [place] [address] Dr. Judd Andrade Glucose Ql (U) Negative Normal NEGATIVE [facility] Comment on above: Performed By: #### H TERAPN, CMP #### [facility] [address] [address] [address] Judd Andrade Hemoglobin Ql (U) TRACE-INTACT Abnormal NEGATIVE [facility] Comment on above: Performed By: #### H STROPN, CMP #### [facility] [address] [place] [address] Dr. Judd Andrade Ketones Ql (U) Negative Normal NEGATIVE [facility] Comment on above: Performed By: #### H STROPN, CMP #### [facility] [address] [address] [address] Judd Andrade LEUKOCYTES Negative Normal NEGATIVE [facility] Comment on above: Performed By: #### H TERAPN, CMP #### [facility] [address] [address] [address] Judd Andrade Nitrite Ql (U) Negative Normal NEGATIVE [facility] Comment on above: Performed By: #### H TERAPN, CMP #### [facility] [address] [address] [address] Judd Andrade pH (U) 6.0 [pH] Normal 5-9 [facility] Comment on above: Performed By: #### H DEB, CMP #### [facility] [address] [place] [address] Dr. Judd Andrade SPEC GRAVITY 1.005 Normal 1.005-<=1.025 [facility] Comment on above: Performed By: #### H DEB, CMP #### [facility] [address] [place] [address] Dr. Judd Andrade UA PROTEIN Negative Normal NEGATIVE/ TRACE [facility] Comment on above: Performed By: #### H DEB, CMP #### [facility] [address] [place] [address] Dr. Judd Andrade UR MICRO IND INDICATED Normal [facility] Comment on above: Performed By: #### H DEB, CMP #### [facility] [address] [place] [address] Dr. Judd Andrade Urobilinogen Qn (U) 0.2 {Carol'U}/dL Normal 0.2 - 1. 0 [facility] Comment on above: Performed By: #### H DEB, CMP #### [facility] [address] [place] [address] Dr. Judd Andrade URINE MICROSCOPIC ONLYon BACTERIA NONE SEEN Normal NONE SEEN [facility] Comment on above: Performed By: #### H DEB, CMP #### [facility] [address] [place] [address] Dr. Judd Andrade Bacteria identified Cx Nom (U) NOT INDICATED Normal [facility] Comment on above: Performed By: #### H DEB, CMP #### [facility] [address] [place], [place] [id number] Dr. Judd Andrade CAST NONE SEEN Normal NONE SEEN [facility] Comment on above: Performed By: #### H STROPN, CMP #### [facility] [address] [place] [address] Dr. Judd Andrade Crystals LM Nom (Urine sed) NONE SEEN Normal NONE SEEN [facility] Comment on above: Performed By: #### H STROPN, CMP #### [facility] [address] [place] [address] Dr. Judd Andrade Epithelial cells LM Ql (Urine sed) FEW Abnormal NONE SEEN /RARE [facility] Comment on above: Performed By: #### H STROPN, CMP #### [facility] [address] [place] [address] Dr. Judd Andrade MUCOUS NONE SEEN Normal NONE SEEN [facility] Comment on above: Performed By: #### H STROPN, CMP #### [facility] [address] [place] [address] Dr. Judd Andrade RBC 0-2 Normal 0-2 [facility] Comment on above: Performed By: #### H STROPN, CMP #### [facility] [address] [place] [address] Dr. Judd Andrade WBC NONE SEEN Normal NONE SEEN [facility] Comment on above: Performed By: #### H STROPN, CMP #### [facility] [address] [place] [address] Dr. Judd Andrade Vital Signs Date Time Vital Sign Value Performing Clinician Facility 01-20-2024 12:02-040 Body mass index (BMI) [Ratio] 28.34 kg/m2 [employer] Work Phone: [facility] 01-20-2024 12:02-399 Body weight 72.58 kg [employer] Work Phone: [facility] 01-20-2024 12:02-040 Diastolic blood pressure 80 mm[Hg] [employer] Work Phone: [facility] 01-20-2024 12:02-0400 Systolic blood pressure 160 mm[Hg] Katie Yocasta DO Work Phone: [facility] 01-03-2024 13:11-0400 Body mass index (BMI) [Ratio] 28.17 kg/m2 Katie Yocasta DO Work Phone: [facility] 01-03-2024 13:11-0400 Body weight 72.12 kg Katie Yocasta DO Work Phone: [facility] 01-03-2024 13:11-0400 Diastolic blood pressure 70 mm[Hg] Katie Yocasta DO Work Phone: [facility] 01-03-2024 13:11-0400 Systolic blood pressure 120 mm[Hg] Katie Yocasta DO Work Phone: [facility] 12-30-2023 13:48-0400 Blood Pressure Location Bessie Galea [facility] 12-30-2023 13:48-0400 Diastolic blood pressure 82 mm[Hg] Bessie Galea [facility] 12-30-2023 13:48-0400 Heart rate 80 /min Bessie Galea [facility] 12-30-2023 13:48-0400 Respiratory rate 16 /min Bessie Galea [facility] 12-30-2023 13:48-0400 Systolic blood pressure 117 mm[Hg] Bessie Galea [facility] 12-21-2023 11:47-0400 Body mass index (BMI) [Ratio] 27.99 kg/m2 Radha KAY Work Phone: [facility] 12-21-2023 11:47-0400 Body weight 71.67 kg Radha KAY Work Phone: [facility] 12-21-2023 11:47-0400 Diastolic blood pressure 78 mm[Hg] Radha KAY Work Phone: [facility] 12-21-2023 11:47-0400 Systolic blood pressure 118 mm[Hg] Radha KAY Work Phone: [facility] Encounters Encounter Date Encounter Type Care Provider Facility Start: 05-22-2024 End: 05-22-2024 ambulatory [facility] Start: 05-08-2024 End: 05-08-2024 ambulatory [facility] Start: 01-20-2024 End: 01-20-2024 Bamboo flowsheet Aktie Yocasta DO Work Phone: [facility] Start: 01-20-2024 End: 01-20-2024 Bamboo flowsheet Katie Yocasta DO Work Phone: [facility] Start: 01-20-2024 End: 01-20-2024 Postop follow up visit related to original px Katie Yocasta DO Work Phone: [facility] Comment on above: Postoperative visit; S/P D&C (status post dilation and curettage) Start: 01-07-2024 End: 01-07-2024 Clinisync Result Encounter Katie Yocasta DO Work Phone: [facility] External Department Unsolicited Start: 01-07-2024 End: 01-07-2024 Clinisync Result Encounter Katie Yocasta DO Work Phone: [facility] External Department Unsolicited Start: 01-07-2024 End: 01-07-2024 ambulatory MD John Porter Work Phone: [facility] Work Phone: Start: 01-07-2024 End: 01-07-2024 Departed Referred MD John Porter Work Phone: [facility] Start: 01-03-2024 End: 01-03-2024 Bamboo flowsheet Katie Yocasta DO Work Phone: [facility] Start: 01-03-2024 End: 01-03-2024 Bamboo flowsheet Katie Yocasta DO Work Phone: [facility] Start: 01-03-2024 End: 01-03-2024 Office outpatient visit 15 minutes Katie Yocasta DO Work Phone: [facility] Comment on above: Pre-op examination; Yeast infection; Thickened endometrium; Pelvic pain Start: 01-03-2024 End: 01-03-2024 Preprocedural examination done Katie Yocasta DO Work Phone: [facility] Start: 01-03-2024 End: 01-03-2024 ambulatory KATIE YOCASTA Not Available Start: 12-30-2023 End: 12-30-2023 ambulatory Bessie Gong Facility:[facility] Start: 12-30-2023 End: 12-30-2023 Patient encounter procedure Bessie Gong [facility] Start: 12-29-2023 End: 12-29-2023 Phys/qhp telephone evaluation 5-10 min Katie Yocasta DO Work Phone: [facility] Comment on above: Urinary tract infect ion without hematuria, site unspecified; Vulvar irritation Start: 12-21-2023 End: 12-21-2023 Bamboo flowsheet Radha KAY Work Phone: [facility] Start: 12-21-2023 End: 12-22-2023 Bamboo flowsheet Radha KAY Work Phone: [facility] Start: 12-21-2023 End: 12-22-2023 External Result Encounter Radha KAY Work Phone: [facility] External Department Unsolicited Start: 12-21-2023 End: 12-21-2023 ambulatory RADHA TINSLEY Not Available Start: 12-21-2023 End: 12-21-2023 Office outpatient visit 15 minutes Radha KAY Work Phone: [facility] Comment on above: Vaginal burning; Vaginal itching Start: 10-04-2023 End: 10-04-2023 ambulatory KATIE RUST Not Available Start: 06-30-2023 End: 06-30-2023 ambulatory KATIE RUST Not Available Start: 06-24-2023 End: 06-24-2023 ambulatory [...] Date Procedure Procedure Detail Performing Clinician Start: 01-07-2024 ALL CBC WITH AUTO DIFF Katie Rust DO Work Phone: Start: 12-21-2023 URETHRITIS/DISCHARGE PLUS VAGINITIS (HTRX) Radha KAY Work Phone: Start: 10-17-2018 Cystourethroscopy with dilation of urethral stricture Bessie Galea Appendectomy Bessie Galea H/O: surgery S/P D&C (status post dilation and curettage) Katie Rust DO Work Phone: History of cholecystectomy A lysha Galea Tonsillectomy Bessie Galea Plan of Treatment Date Care Activity Detail Author Start: 07-19-2024 End: 07-19-2024 Patient encounter procedure 07/19/2024 3:40 PM EDT Office Visit [facility] [address] [place], [place] [address] [address] Katie Rust, DO [address] [place] [address] [facility] Start: 01-07-2024 End: 01-07-2024 Patient encounter procedure 01/07/2024 9:00 AM EDT Procedure Visit [facility] Katie Rust, DO [address] [place] [address] [facility] Start: 01-03-2024 End: 01-03-2024 Patient encounter procedure [facility] Comment on above: Arrived Start: 12-29-2023 End: 12-29-2023 Patient encounter procedure [facility] CHLAMYDIA TRACHOMATI S (GENITO/STI) CHLAMYDIA TRACHOMATIS (GENITO/STI) Lab Routine Vaginal burning Vaginal itching Ordered: 12/21/2023 [facility] Comment on above: Ordered: 12/21/2023 Neisseria gonorrhoea e DNA [Presence] in Unspecified specimen by JOLLY with probe detection Neisseria gonorrhea DNA probe, direct Lab Routine Vaginal burning Vaginal itching Ordered: 12/21/2023 [facility] Comment on above: Ordered: 12/21/2023 SURESWAB(R) ADVANCED VAGINITIS PLUS, TMA SURESWAB(R) ADVANCED VAGINITIS PLUS, TMA Pathology and Cytology Routine Vaginal burning Vaginal itching Ordered: 12/21/2023 [facility] Work Phone: Comment on above: Ordered: 12/21/2023 Immunizations Immunization Date Immunization Notes Care Provider Fa cili 10-05-2022 tetanus toxoid, redu heide diphtheria toxoid, and acellular pertussis vaccine, adsorbed Bessie Galea [facility] Payers Date Payer Category Payer Self-pay [id number] 2023 Unknown [id number] 2020 Unknown FRONTPATH FRONTP ATH [id number] 2020-Present [phone] [address] [place] [address] [id number] .[id number] 1965 Unknown [id number] 2.16.840.1.618273.3.579.2.593 1965 Unknown [id number] 2.16.840.1.164861.3.579.2.593 1965 Unknown [id number] 2.16.840.1.451700.3.579.2.593 1965 Unknown [id number] 2.16.840.1.666933.3.579.2.593 1965 Unknown [id number] 2.16.840.1.551244.3.579.2.593 1965 Unknown [id number] 2.16.840.1.889743.3.579.2.593 1965 Unknown [id number] 2.16.840.1.542841.3.579.2.593 1965 Unknown [id number] 2.16.840.1.610241.3.579.2.593 1965 Unknown [id number] 2.16.840.1.206469.3.579.2.593 1965 Unknown [id number] 2.16.840.1.182600.3.579.2.593 1965 Unknown [id number] 2.16.840.1.335782.3.579.2.593 1965 Unknown [id number] 2.16.840.1.509803.3.579.2.593 1965 Unknown [id number] 2.16.840.1.967341.3.579.2.593 1965 Unknown [id number] 2.16.840.1.588846.3.579.2.593 1965 Unknown [id number] 2.16.840.1.357568.3.579.2.593 1965 Unknown [id number] 2.16.840.1.623077.3.579.2.593 1965 Unknown [id number] 2.16.840.1.883469.3.579.2.593 1965 Unknown [id number] 2.16.840.1.551151.3.579.2.593 1965 Unknown [id number] 2.16.840.1.546783.3.579.2.593 1965 Unknown [id number] 2.16.840.1.194590.3.579.2.593 1965 Unknown [id number] 2.16.840.1.026643.3.579.2.593 1965 Unknown [id number] 2.16.840.1.408845.3.579.2.593 1965 Unknown [id number] 2.16.840.1.477493.3.579.2.593 1965 Unknown [id number] 2.16.840.1.865171.3.579.2.593 1965 Unknown [id number] 2.16.840.1.798387.3.579.2.125 9 1965 Unknown [id number] 2.16.840.1.910356.3.579.2.125 9 1965 Unknown [id number] 2.16.840.1.948837.3.579.2.125 9 1965 Unknown [id number] 2.16.840.1.553273.3.579.2.125 9 1965 Unknown [id number] 2.16.840.1.812758.3.579.2.125 9 1965 Unknown [id number] 2.16.840.1.737772.3.579.2.125 9 1965 Unknown [id number] 2.16.840.1.477725.3.579.2.727 1965 Unknown [id number] 2.16.840.1.287201.3.579.2.128 6 1965 Unknown [id number] 2.16.840.1.708673.3.579.2.128 6 1959 Self-pay [id number] 1959 Unknown [id number] 1959 Unknown [id number] Unknown [id number] 2.16.840.1.631840.3.579.2.531 Social History Date Type Detail Facility Start: 12-30-2022 End: 12-30-2023 Tobacco smoking status Ex-smoker (finding) [facility] Tobacco smoking status Never [facility] Start: 11-05-2022 End: 12-21-2023 Sex Assigned At Female [facility] Start: 09-05-2013 Tobacco smoking stat us NHIS Never smoked tobacco (finding) [facility] Start: 1965 Sex Assigned At Female [facility] History of tobacco use Current smoker [facility] History of tobacco use Cigarette Smoker [facility] Start: 01-03-2024 End: 01-20-2024 Alcoholic beverage intake Lifetime non-drinker (finding) [facility] Start: 11-05-2022 End: 12-21-2023 History of Social function [facility] Start: 12-30-2022 Alcohol Comment Caffeine: none [facility] Start: 1965 Sex assigned at Not on file [facility] Functional Status Date Assessment Result Facility 12-30-2023 Functional Status N/A [facility] Clinical Notes 12-21-2023 to 01-20-2024 Deepti Palacios LPN - 01/20/2024 11:50 AM Suad Palacios LPN - 01/03/2024 1:00 PM Carlos Buckley LPN - 12/29/2023 8:00 AM ELIZA Leggett - 12/21/2023 10:50 AM EDT Note Date & Type Note Facility 01-20-2024 History of Presen t illness Narrative Reason for Appointment: Patient ID: Yulia Dorsey is a 58 y.o. female who presents for Post-op Visit (Pt present today for post operative visit. Pt had a D&C on 01/07/2024.) Patient presents today for Consult appointment. MEDICATIONS Current Outpatient Medications Medication Instructions Ascorbic Acid (Vitamin C) 500 MG capsule as directed Orally calcium carbonate 1500 (600 Ca) MG tablet Every 12 hours CALCIUM MAGNESIUM ZINC PO 1 tablet, Oral, Daily RT Misc Natural Products (Airborne Elderberry) chewable tablet as directed Orally Multiple Vitamin (multivitamin) capsule 1 capsule, Oral, Daily RT ALLERGIES Allergies Allergen Reactions Ciprofloxacin Other Reaction(s): vivid dreams/increased anxiety Erythromycin Other Other Reaction(s): rash and fever, Unknown Erythromycin Base Other Reaction(s): Unknown Other Reaction(s): rash Imipramine Other tofranil Other Reaction(s): Unknown Rash, psychosis, tachycardia Other Reaction(s): hallucinations, Unknown Sulfa Antibiotics Rash Other Reaction(s): Unknown Other Reaction(s): rash Other Reaction(s): tremors, rash PROBLEMS Active Ambulatory Problems Diagnosis Date Noted GERD (gastroesophageal reflux disease) 08/14/2013 Acute pelvic pain 10/28/2022 Anxiety state (CMS/HCC) 08/14/2013 Bilateral tinnitus 10/28/2022 Cervical disc disorder 08/14/2013 Fibrocystic breast changes 10/28/2022 Generalized anxiety disorder (CMS/HCC) 03/28/2019 Intermittent vertigo 04/26/2004 Irritable bowel syndrome 08/14/2013 Major depressive disorder, single episode, moderate (HCC) (CMS/HCC) 03/28/2019 Meniere's disease 08/14/2013 Menopausal symptoms 11/17/2016 Menorrhagia 10/28/2022 Other specified hearing loss, right ear 02/25/2016 Pressure in head 04/26/2015 Psychological factors affecting medical condition 11/17/2016 Shoulder joint pain 10/28/2022 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 Thickened endometrium 10/28/2022 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 08/14/2013 Resolved Ambulatory Problems Diagnosis Date Noted No Resolved Ambulatory Problems Past Medical History: Diagnosis Date Anemia, iron deficiency Anxiety BMI 29.0-29.9,adult BPPV (benign paroxysmal positional vertigo), left Chronic bronchitis (CMS/HCC) Chronic fatigue Chronic fibrocystic breast disease (FCBD) in female Chronic tonsillitis Dizziness DJD (degenerative joint disease) of cervical spine Encounter for screening mammogram for breast cancer 2019 Encounter to discuss procedure Caleb-Fox viral infection Fibrocystic breast disease IBS (irritable bowel syndrome) Migraines (CMS/HCC) Pelvic pain Plantar fasciitis Viral hepatitis HISTORY PAST MEDICAL HISTORY SOCIAL HISTORY Past Medical History: Diagnosis Date Acute pelvic pain Anemia, iron deficiency Anxiety w panic attacks BMI 29.0-29.9,adult BPPV (benign paroxysmal positional vertigo), left Chronic bronchitis (CMS/HCC) Chronic fatigue Chronic fibrocystic breast disease (FCBD) in female Chronic tonsillitis Dizziness DJD (degenerative joint disease) of cervical spine Encounter for screening mammogram for breast cancer 2019 normal Encounter to discuss procedure Caleb-Fox viral infection Fibrocystic breast disease GERD (gastroesophageal reflux disease) IBS (irritable bowel syndrome) Meniere's disease Menorrhagia Migraines (CMS/HCC) Pelvic pain Plantar fasciitis Viral hepatitis non infectious Social History Tobacco Use Smoking status: Former Types: Cigarettes Smokeless tobacco: Not on file Substance Use Topics Alcohol use: Never Comment: Caffeine: none Drug use: Never FAMILY HISTORY Family History Problem Relation Name Age of Onset Stroke Mother Diabetes Father Hypertension Father Heart disease Father Dementia Father Hypertension Brother Hyperlipidemia Brother Diabetes Maternal Grandmother Cancer Maternal Grandfather Heart disease Paternal Grandmother Hyperlipidemia Paternal Grandmother Cancer Other maternal family hx of stomach and pancreatic cancer SURGICAL HISTORY Past Surgical History: Procedure Laterality Date CHOLECYSTECTOMY 2014 DILATION AND CURETTAGE OF UTERUS 2011 DILATION AND CURETTAGE OF UTERUS 01/07/2024 HYSTEROSCOPY 2015 D&C TONSILLECTOMY 06/15/2011 WISDOM TOOTH EXTRACTION wisdom teeth REVIEW OF SYSTEMS Review of Systems: Review of Systems All other systems reviewed and are negative. OBJECTIVE Objective: Physical Exam Constitutional: Appearance: Normal appearance. She is well-developed. Cardiovascular: Rate and Rhythm: Normal rate and regular rhythm. Pulmonary: Effort: Pulmonary effort is normal. Breath sounds: Normal breath sounds. Abdominal: General: Bowel sounds are normal. There is no distension. Palpations: Abdomen is soft. Tenderness: There is no abdominal tenderness. There is no guarding or rebound. Musculoskeletal: General: No swelling. Normal range of motion. Right lower leg: No edema. Left lower leg: No edema. Neurological: Mental Status: She is alert and oriented to person, place, and time. Skin: General: Skin is warm and dry. Psychiatric: Mood and Affect: Mood normal. Behavior: Behavior normal. Vitals and nursing note reviewed. Exam conducted with a sports doctor present. Vitals: Estimated body mass index is 28.34 kg/m as calculated from the following: Height as of 07/22/22: 5' 3 . Weight as of this encounter: 160 lb. BP: 160/80 No LMP recorded. Patient is postmenopausal. ASSESSMENT & PLAN ICD-10-CM 1. Postoperative visit Z48.89 2. S/P D&C (status post dilation and curettage) Z98.890 Patient and spouse present today for post operative appointment. Reviewed procedure with patient and reassurance given. Patient to return to clinic in June for Annual Well Women Exam. Documented by Deepti Palacios LPN on behalf of: Katie Rust DO documented in this encounter [facility] 01-03-2024 History of Presen t illness Narrative Reason for Appointment: Patient ID: Yulia Dorsey is a 58 y.o. female who presents for Vaginitis/Bacterial Vaginosis and Pre-op Visit Patient presents today for Consult appointment. MEDICATIONS Current Outpatient Medications Medication Instructions Ascorbic Acid (Vitamin C) 500 MG capsule as directed Orally calcium carbonate 1500 (600 Ca) MG tablet Every 12 hours CALCIUM MAGNESIUM ZINC PO 1 tablet, Oral, Daily RT clobetasol (Temovate) 0.05 % cream 1 application , Topical, 2 times daily Misc Natural Products (Airborne Elderberry) chewable tablet as directed Orally Multiple Vitamin (multivitamin) capsule 1 capsule, Oral, Daily RT ALLERGIES Allergies Allergen Reactions Erythromycin Other Erythromycin Base Other Reaction(s): Unknown Imipramine Other tofranil Other Reaction(s): Unknown Rash, psychosis, tachycardia Sulfa Antibiotics Rash Other Reaction(s): Unknown PROBLEMS Active Ambulatory Problems Diagnosis Date Noted GERD (gastroesophageal reflux disease) 08/14/2013 Acute pelvic pain 10/28/2022 Anxiety state (CMS/HCC) 08/14/2013 Bilateral tinnitus 10/28/2022 Cervical disc disorder 08/14/2013 Fibrocystic breast changes 10/28/2022 Generalized anxiety disorder ([facility]/HCC) 03/28/2019 Intermittent vertigo 04/26/2004 Irritable bowel syndrome 08/14/2013 Major depressive disorder, single episode, moderate (HCC) ([facility]/HCC) 03/28/2019 Meniere's disease 08/14/2013 Menopausal symptoms 11/17/2016 Menorrhagia 10/28/2022 Other specified hearing loss, right ear 02/25/2016 Pressure in head 04/26/2015 Psychological factors affecting medical condition 11/17/2016 Shoulder joint pain 10/28/2022 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[facility]/HCC) 11/17/2016 Thickened endometrium 10/28/2022 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 08/14/2013 Resolved Ambulatory Problems Diagnosis Date Noted No Resolved Ambulatory Problems Past Medical History: Diagnosis Date Anemia, iron deficiency Anxiety BMI 29.0-29.9,adult BPPV (benign paroxysmal positional vertigo), left Chronic bronchitis (CMS/HCC) Chronic fatigue Chronic fibrocystic breast disease (FCBD) in female Chronic tonsillitis Dizziness DJD (degenerative joint disease) of cervical spine Encounter for screening mammogram for breast cancer 2019 Encounter to discuss procedure Caleb-Fox viral infection Fibrocystic breast disease IBS (irritable bowel syndrome) Migraines (CMS/HCC) Pelvic pain Plantar fasciitis Viral hepatitis HISTORY PAST MEDICAL HISTORY SOCIAL HISTORY Past Medical History: Diagnosis Date Acute pelvic pain Anemia, iron deficiency Anxiety w panic attacks BMI 29.0-29.9,adult BPPV (benign paroxysmal positional vertigo), left Chronic bronchitis (CMS/HCC) Chronic fatigue Chronic fibrocystic breast disease (FCBD) in female Chronic tonsillitis Dizziness DJD (degenerative joint disease) of cervical spine Encounter for screening mammogram for breast cancer 2019 normal Encounter to discuss procedure Caleb-Fox viral infection Fibrocystic breast disease GERD (gastroesophageal reflux disease) IBS (irritable bowel syndrome) Meniere's disease Menorrhagia Migraines (CMS/HCC) Pelvic pain Plantar fasciitis Viral hepatitis non infectious Social History Tobacco Use Smoking status: Former Types: Cigarettes Smokeless tobacco: Not on file Substance Use Topics Alcohol use: Never Comment: Caffeine: none Drug use: Never FAMILY HISTORY Family History Problem Relation Name Age of Onset Stroke Mother Diabetes Father Hypertension Father Heart disease Father Dementia Father Hypertension Brother Hyperlipidemia Brother Diabetes Maternal Grandmother Cancer Maternal Grandfather Heart disease Paternal Grandmother Hyperlipidemia Paternal Grandmother Cancer Other maternal family hx of stomach and pancreatic cancer SURGICAL HISTORY Past Surgical History: Procedure Laterality Date CHOLECYSTECTOMY 2014 DILATION AND CURETTAGE OF UTERUS 2012 HYSTEROSCOPY 2015 D&C TONSILLECTOMY 06/15/2011 WISDOM TOOTH EXTRACTION wisdom teeth REVIEW OF SYSTEMS Review of Systems: Review of Systems Constitutional: Negative. HENT: Negative. Eyes: Negative. Respiratory: Negative. Cardiovascular: Negative. Gastrointestinal: Negative. Genitourinary: Positive for vaginal discharge. Musculoskeletal: Negative. Skin: Negative. Neurological: Negative. All other systems reviewed and are negative. Hematological: Negative. Endocrine: Negative. Allergic/Immunologic: Negative. OBJECTIVE Objective: Physical Exam Constitutional: Appearance: Normal appearance. She is well-developed. Genitourinary: Vulva normal. Cardiovascular: Rate and Rhythm: Normal rate and regular rhythm. Pulmonary: Effort: Pulmonary effort is normal. Breath sounds: Normal breath sounds. Abdominal: General: Bowel sounds are normal. There is no distension. Palpations: Abdomen is soft. Tenderness: There is no abdominal tenderness. There is no guarding or rebound. Musculoskeletal: General: No swelling. Normal range of motion. Right lower leg: No edema. Left lower leg: No edema. Neurological: Mental Status: She is alert and oriented to person, place, and time. Skin: General: Skin is warm and dry. Psychiatric: Mood and Affect: Mood normal. Behavior: Behavior normal. Vitals and nursing note reviewed. Exam conducted with a sports doctor present. Vitals: Estimated body mass index is 28.17 kg/m as calculated from the following: Height as of 07/22/22: 5' 3 . Weight as of this encounter: 159 lb. BP: 120/70 No LMP recorded. Patient is postmenopausal. ASSESSMENT & PLAN ICD-10-CM 1. Pre-op examination Z01.818 2. Yeast infection B37.9 3. Thickened endometrium R93.89 4. Pelvic pain R10.2 Patient and spouse present to office today for patient complaints of vaginal discharge. Vaginal cultures obtained and sent out to pharmacy. Discussed patients surgical procedure that has been rescheduled a few times. Patient is agreeable to proceeding with surgical procedure. Pre Op: Patient is doing well but has complaints of thickened endometrium. I have discussed conservative management vs. surgical management with the patient in detail and patient desires surgical management at this time. Patient will undergo D&C Hysteroscopy, possible Myosure on 01/07/2024. Surgical consents were signed, mmc was reviewed, and patient is to proceed to [facility] OR. Follow Up: Patient is to follow up between 1-2 weeks post operative to assess proper healing and recovery from procedure. Documented by Deepti Palacios LPN on behalf of: Katie Rust DO documented in this encounter [facility] 12-30-2023 Hospital Discharg e instructions Patient Education [...] provider. Document Revised: 08/21/2021 Document Reviewed: 08/21/2021 Audit Verify Patient Education 2023 [employer]. Follow Up Care 12/02/2023 13:46:26 With:Bessie Quiñones, URL Address: When: Unknown Comments:pending imaging and after PFPT [facility] 12-30-2023 Note Patient Education Obstetrics and Gynecology [...] provider. Document Revised: 08/21/2021 Document Reviewed: 08/21/2021 Audit Verify Patient Education ? 2023 [employer]. [facility] 12-29-2023 History of Presen t illness Narrative Reason for Appointment: Patient ID: Yulia Dorsey is a 58 y.o. female who presents for Telehealth, UTI, and kidney stone Patient presents today via telephone call for a telehealth appointment. Patients Phone #: [phone] (mobile) Current Medications: has a current medication list which includes the following prescription(s): vitamin c, calcium carbonate, wwjloso-fblgvfjyp-foek, airborne elderberry, and multivitamin. Medical History: Active Ambulatory Problems Diagnosis Date Noted GERD (gastroesophageal reflux disease) 08/14/2013 Acute pelvic pain 10/28/2022 Anxiety state ([facility]) 08/14/2013 Bilateral tinnitus 10/28/2022 Cervical disc disorder 08/14/2013 Fibrocystic breast changes 10/28/2022 Generalized anxiety disorder ([facility]) 03/28/2019 Intermittent vertigo 04/26/2004 Irritable bowel syndrome 08/14/2013 Major depressive disorder, single episode, moderate (HCC) ([facility]) 03/28/2019 Meniere's disease 08/14/2013 Menopausal symptoms 11/17/2016 Menorrhagia 10/28/2022 Other specified hearing loss, right ear 02/25/2016 Pressure in head 04/26/2015 Psychological factors affecting medical condition 11/17/2016 Shoulder joint pain 10/28/2022 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 Thickened endometrium 10/28/2022 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 08/14/2013 Resolved Ambulatory Problems Diagnosis Date Noted No Resolved Ambulatory Problems Past Medical History: Diagnosis Date Anemia, iron deficiency Anxiety BMI 29.0-29.9,adult BPPV (benign paroxysmal positional vertigo), left Chronic bronchitis (CMS/HCC) Chronic fatigue Chronic fibrocystic breast disease (FCBD) in female Chronic tonsillitis Dizziness DJD (degenerative joint disease) of cervical spine Encounter for screening mammogram for breast cancer 2019 Encounter to discuss procedure Caleb-Fox viral infection Fibrocystic breast disease IBS (irritable bowel syndrome) Migraines (CMS/HCC) Pelvic pain Plantar fasciitis Viral hepatitis Family History Problem Relation Name Age of Onset Stroke Mother Diabetes Father Hypertension Father Heart disease Father Dementia Father Hypertension Brother Hyperlipidemia Brother Diabetes Maternal Grandmother Cancer Maternal Grandfather Heart disease Paternal Grandmother Hyperlipidemia Paternal Grandmother Cancer Other maternal family hx of stomach and pancreatic cancer Social History Tobacco Use Smoking status: Former Types: Cigarettes Smokeless tobacco: Not on file Substance Use Topics Alcohol use: Never Comment: Caffeine: none Drug use: Never Past Surgical History: Procedure Laterality Date CHOLECYSTECTOMY 2014 DILATION AND CURETTAGE OF UTERUS 2011 HYSTEROSCOPY 2015 D&C TONSILLECTOMY 06/15/2011 WISDOM TOOTH EXTRACTION wisdom teeth Allergies Allergen Reactions Erythromycin Other Erythromycin Base Other Reaction(s): Unknown Imipramine Other tofranil Other Reaction(s): Unknown Rash, psychosis, tachycardia Sulfa Antibiotics Rash Other Reaction(s): Unknown Vitals: Estimated body mass index is 27.99 kg/m as calculated from the following: Height as of 07/22/22: 5' 3 . Weight as of 12/21/23: 158 lb. BP: No LMP recorded. Patient is postmenopausal. Assessment/Plan Encounter Diagnosis Name Primary? Urinary tract infection without hematuria, site unspecified Pt had UTI and after three different antibiotics, pt states vagina is angry cultures were negative on 12/21/23. Pt advised to take diflucan. Rx for clobetasol cream faxed to pharmacy. Pt to apply twice daily. Pt desires hysterectomy. Pt to have D&C hysteroscopy with poss myosure. Pt to be seen by Yocasta on Wednesday. Today's telehealth visit consisted of spending 11 minutes talking to patient on the phone. Documented by Olivia Buckley LPN on behalf of: Katie Rust DO documented in this encounter [facility] 12-21-2023 History of Presen t illness Narrative Reason for Appointment: Patient ID: Yulia Dorsey is a 58 y.o. female who presents for Vaginal Itching (Pt complaining of vaginal burning along w/itching. ) Patient presents today for Acute Visit. Patient continues to have burning and itching with urination MEDICATIONS Current Outpatient Medications Medication Instructions Ascorbic Acid (Vitamin C) 500 MG capsule as directed Orally calcium carbonate 1500 (600 Ca) MG tablet Every 12 hours CALCIUM MAGNESIUM ZINC PO 1 tablet, Oral, Daily RT Misc Natural Products (Airborne Elderberry) chewable tablet as directed Orally Multiple Vitamin (multivitamin) capsule 1 capsule, Oral, Daily RT ALLERGIES Allergies Allergen Reactions Erythromycin Other Erythromycin Base Other Reaction(s): Unknown Imipramine Other tofranil Other Reaction(s): Unknown Rash, psychosis, tachycardia Sulfa Antibiotics Rash Other Reaction(s): Unknown PROBLEMS Active Ambulatory Problems Diagnosis Date Noted GERD (gastroesophageal reflux disease) 08/14/2013 Acute pelvic pain 10/28/2022 Anxiety state ([facility]) 08/14/2013 Bilateral tinnitus 10/28/2022 Cervical disc disorder 08/14/2013 Fibrocystic breast changes 10/28/2022 Generalized anxiety disorder (CMS/HCC) 03/28/2019 Intermittent vertigo 04/26/2004 Irritable bowel syndrome 08/14/2013 Major depressive disorder, single episode, moderate (HCC) ([facility]) 03/28/2019 Meniere's disease 08/14/2013 Menopausal symptoms 11/17/2016 Menorrhagia 10/28/2022 Other specified hearing loss, right ear 02/25/2016 Pressure in head 04/26/2015 Psychological factors affecting medical condition 11/17/2016 Shoulder joint pain 10/28/2022 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 Thickened endometrium 10/28/2022 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 08/14/2013 Resolved Ambulatory Problems Diagnosis Date Noted No Resolved Ambulatory Problems Past Medical History: Diagnosis Date Anemia, iron deficiency Anxiety BMI 29.0-29.9,adult BPPV (benign paroxysmal positional vertigo), left Chronic bronchitis (CMS/HCC) Chronic fatigue Chronic fibrocystic breast disease (FCBD) in female Chronic tonsillitis Dizziness DJD (degenerative joint disease) of cervical spine Encounter for screening mammogram for breast cancer 2019 Encounter to discuss procedure Caleb-Fox viral infection Fibrocystic breast disease IBS (irritable bowel syndrome) Migraines (CMS/HCC) Pelvic pain Plantar fasciitis Viral hepatitis HISTORY PAST MEDICAL HISTORY SOCIAL HISTORY Past Medical History: Diagnosis Date Acute pelvic pain Anemia, iron deficiency Anxiety w panic attacks BMI 29.0-29.9,adult BPPV (benign paroxysmal positional vertigo), left Chronic bronchitis (CMS/HCC) Chronic fatigue Chronic fibrocystic breast disease (FCBD) in female Chronic tonsillitis Dizziness DJD (degenerative joint disease) of cervical spine Encounter for screening mammogram for breast cancer 2019 normal Encounter to discuss procedure Caleb-Fox viral infection Fibrocystic breast disease GERD (gastroesophageal reflux disease) IBS (irritable bowel syndrome) Meniere's disease Menorrhagia Migraines (CMS/HCC) Pelvic pain Plantar fasciitis Viral hepatitis non infectious Social History Tobacco Use Smoking status: Former Types: Cigarettes Smokeless tobacco: Not on file Substance Use Topics Alcohol use: Never Comment: Caffeine: none Drug use: Never FAMILY HISTORY Family History Problem Relation Name Age of Onset Stroke Mother Diabetes Father Hypertension Father Heart disease Father Dementia Father Hypertension Brother Hyperlipidemia Brother Diabetes Maternal Grandmother Cancer Maternal Grandfather Heart disease Paternal Grandmother Hyperlipidemia Paternal Grandmother Cancer Other maternal family hx of stomach and pancreatic cancer SURGICAL HISTORY Past Surgical History: Procedure Laterality Date CHOLECYSTECTOMY 2015 DILATION AND CURETTAGE OF UTERUS 2012 HYSTEROSCOPY 2015 D&C TONSILLECTOMY 06/15/2011 WISDOM TOOTH EXTRACTION wisdom teeth REVIEW OF SYSTEMS Review of Systems: Review of Systems OBJECTIVE Objective: Physical Exam Constitutional: Appearance: Normal appearance. She is normal weight. Genitourinary: Cervical friability present. HENT: Head: Normocephalic. Cardiovascular: Rate and Rhythm: Normal rate. Pulses: Normal pulses. Pulmonary: Effort: Pulmonary effort is normal. Breath sounds: Normal breath sounds. Abdominal: Palpations: Abdomen is soft. Musculoskeletal: General: Normal range of motion. Neurological: General: No focal deficit present. Mental Status: She is alert and oriented to person, place, and time. Psychiatric: Mood and Affect: Mood normal. Behavior: Behavior normal. Thought Content: Thought content normal. Judgment: Judgment normal. Vitals and nursing note reviewed. Vitals: Estimated body mass index is 27.99 kg/m as calculated from the following: Height as of 07/22/22: 5' 3 . Weight as of this encounter: 158 lb. BP: 118/78 No LMP recorded (approximate). Patient is postmenopausal. ASSESSMENT & PLAN ICD-10-CM 1. Vaginal burning N94.9 SURESWAB(R) ADVANCED VAGINITIS PLUS, TMA CHLAMYDIA TRACHOMATIS (GENITO/STI) Neisseria gonorrhea DNA probe, direct 2. Vaginal itching N89.8 SURESWAB(R) ADVANCED VAGINITIS PLUS, TMA CHLAMYDIA TRACHOMATIS (GENITO/STI) Neisseria gonorrhea DNA probe, direct Patient continues to have burning and itching with urination despite completing amoxicillin, cipro and diflucan. She states she started while out of town for vacation and was found to have uti with kidney stones. Repeat ct today showed no stones per pt. Vaginal cultures obtained today. Cervix inflammed on exam. I explained to pt to continue with current antibiotics and we will notify her if other medications needed. I did explain that with cervicitis, pt will be given a course of doxycyline once the cultures are back. Pt agrees with plan of care Documented by ELIZA Mccollum on behalf of: ELIZA Mccollum documented in this encounter [facility] Healthcare Evaluation + Plan note No data available for this section [facility] Evaluation note No assessment inform ation available [facility] Work Phone: Evaluation note Diagnosis Vaginal burning Other specified symptom associated with female genital organs Vaginal itching Pruritus of genital organs documented in this encounter [facility]* Diagnosis Urinary tract infection without hematuria, site unspecified Vulvar irritation documented in this encounter [facility] HealthcareEvaluation note* Diagnosis Pre-op examination Yeast infection Thickened endometrium Nonspecific (abnormal) findings on radiological and other examination of genitourinary organs Pelvic pain documented in this encounter [facility]* Diagnosis Postoperative visit S/P D&C (status post dilation and curettage) Other postprocedural status documented in this encounter [facility] No data available for this section [facility] Summary Purpose Family History No Family History Records Found Relationship Condition Age at Onset Recorded Date/T lópez father Heart disease Unknown mother Unknown History of stroke Unknown Advance Directives No Advanced Directives Records Found Advance Directive Response Recorded Date/ Time Advance Directives No July 15 019 11:52am Additional Source Comments INFORMATION SOURCE (unrecogn ized section and content) DATE CREATED AUTHOR 10/02/2022 [facility] DATE CREATED AUTHOR AUTHOR'S ORGANIZ ATION 01/04/2024 [facility] EPIC DATE CREATED AUTHOR AUTHOR'S ORGANIZ ATION 01/09/2024 [facility] DATE CREATED AUTHOR AUTHOR'S ORGANIZ ATION 01/14/2024 [facility] DATE CREATED AUTHOR AUTHOR'S ORGANIZ ATION 05/24/2024 [facility] Patient Care team informatio n (unrecognized section and content) Team Status: Active Member Role Status Dates John Porter MD Primary Care Provider Active Team Status: Inactive Member Role Status Dates John Porter MD Primary Care Provider Active Start: January 07, 2024 End: January 07, 2024 Katie Rust DO Attending Provider Active Start : January 07, 2024 End: January 07, 2024 [employer] Relationship Specialty Start Date End Date John Porter MD [address] [place] [address] PCP - General 09/13/22 [employer] Relationship Specialty Start Date End Date John Porter MD [address] [place] [address] PCP - General 09/13/22 [employer] Relationship Specialty Start Date End Date John Porter MD [address] [place] [address] PCP - General 09/13/22 [employer] Relationship Specialty Start Date End Date John Porter MD [address] [place] [address] PCP - General 09/13/22 [employer] Relationship Specialty Start Date End Date John Porter MD [address] [place] [address] PCP - General 09/13/22 [employer] Relationship Specialty Start Date End Date John Porter MD [address] [place] [address] PCP - General 09/13/22 [employer] Relationship Specialty Start Date End Date John Porter MD [address] [place] [address] PCP - General 09/13/22 Goals (unrecognized section and content) Goals may be documented in a n alternate section Reason for Visit (unrecogniz ed section and content) Reason Comments Vaginal Itching Pt complaining of va ginal burning along w/itching. Reason Comments Telehealth UTI kidney stone Reason Comments Vaginitis/Bacterial Vaginosis Pre-op Visit Reason Comments Post-op Visit Pt present today for post operative visit. Pt had a D&C on 01/07/2024. FOR RECORDS PERTAINING TO PATIENTS WHO ARE [...] BE BASED ON THE PRIMARY CLINICAL RECORDS. [facility] [employer] [facility]. provides no warranty or guarantee of the accuracy or completeness of information in this document.
== END 2024-05-25 16:52 | disposition home or self-care (01) ==
LOC: LAB 05-26 08:30
PROVIDERS: PCP Family Medicine; Visit Provider Family Medicine
DX: N39.0 Urinary tract infection, site not specified (principal)
CPT/HCPCS: 81001; 87086

== ENCOUNTER 2024-05-30 15:39 | Outpatient (OUT) | payer OTHER, SELFPAY ==
--- OUTSIDE RECORDS SUMMARY | 2024-05-30 15:45 | XMS_ITS | CCD ---
Author Organization [facility] Care Team Providers Care Inspection Clerk Name Role Phone GERMAN ., DR LOPEZ [...] DR LOPEZ Admitting Unavailable HOY ., DR LPOEZ Attending Unavailable HOY ., DR LOPEZ Primary [...] Unavailable YOCASTA ., DR WILSON Attending Unavailable KERMIT, DR ELLYN Dougherty Consulting Unavailable HOY ., [...] DEMETRA, DR IRIS Chavez Consulting Unavailabl e GERMAN ., DR [...] Unavailable German John Primary Care Physician [phone] [place]E [place] Attending Unavailable RALF RENDON Referring Unavailable YOCASTA, KATIE Attending Unavailable YOCASTA, KATIE Attending Unavailable YOCASTA, KATIE Attending Unavailable RADHA TINSLEY Attending Unavailable YOCASTA, KATIE Attending Unavailable MD John Porter Primary Care Provider [phone] Katie Rust Attending Provider [phone] Bessie Gong Attending Unavailable John Porter Primary Care Unavailable Yocasta, Katie Attending Unavailable Yocasta, Katie Admitting Unavailable John Porter MD Primary Care Provider [phone] IRIS GABRIEL Attending Unavailable ABELINOY, JOHN M Referring Unavailable HOY, JOHN M Primary Care Unavailable IRIS GABRIEL Attending Unavailable HOY, JOHN M Referring Unavailable HOY, JOHN M Primary Care Unavailable Allergies Allergy Classification Reported Allergen(s) Allergy Type Date of Onset Reaction(s) Facility (1 source) Azithromycin Drug Allergy 12-21-19 22 [facility] Repository (4 sources) Imipramine; Translations: [IMIPRAMINE] Drug Allergy 10-06-19 13 [facility] Repository (2 sources) Sulfonamides (Antibiotic) Drug allergy (disorder) 10-06-19 13 [facility] Repository (2 sources) E.E.S. Drug allergy (disorder) 10-06-19 13 [facility] Repository (16 sources) Erythromycin; Translations: [erythromycin] Drug Allergy 02-25-20 16 Unknown (qualifier value), Other [facility] (15 sources) Imipramine; Translations: [imipramine] Drug Allergy 02-25-20 16 Unknown (qualifier value), Other [facility] (2 sources) Sulfonamides (Antibiotic); Translations: [sulfa drugs] Drug allergy Unknown (qualifier value) [facility] (3 sources) Sulfonamides (Antibiotic); Translations: [Sulfa (Sulfonamide Antibiotics)] Allergy to substance 09-12-19 [facility] (15 sources) erythromycin base; Translations: [erythromycin base] Allergy to substance 12-02-19 [facility] (1 source) Imipramine Drug Allergy 12-02-19 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] Onset: 12-23-2021 Episodic Other [...] WITH AUTO DIFFon BASOPHILS ABSOLUTE AUTO 0.0 [facility] Basophils/100 WBC (Bld) 0.8 % 0.2 - 2.0 % [facility] Eosinophils/100 WBC (Bld) 1.9 % 0.9 - 7.0 % [facility] Erythrocyte distribution width (RBC) [Ratio] 13.4 % 11.0 - 15.0 % [facility] Hematocrit (Bld) [Volume fraction] 43.1 % 36.0 - 48.0 % [facility] Hemoglobin (Bld) [Mass/Vol] 13.9 g/dL 12.0 - 16.0 g/dL [facility] IMMATURE GRANULOCYTES ABS AUTO 0.01 [facility] Immature granulocytes/100 WBC (Bld) 0.2 % 0.0 - 0.5 % [facility] LYMPHOCYTES ABSOLUTE AUTO 1.7 [facility] Lymphocytes/100 WBC (Bld) 32.9 % 20.5 - 60.0 % [facility] MCH (RBC) [Entitic mass] 28.8 pg 26.7 - 34.0 pg [facility] MCHC (RBC) [Mass/Vol] 32.3 g/dL 29.9 - 35.2 g/dL [facility] MCV (RBC) [Entitic vol] 89.2 fL 81.0 - 99.0 fL [facility] MONOCYTES ABSOLUTE AUTO 0.5 [facility] Monocytes/100 WBC (Bld) 9.6 % 1.7 - 12.0 % [facility] NEUTROPHILS ABSOLUTE AUTO 2.8 [facility] Neutrophils/100 WBC (Bld) 54.6 % 43.0 - 75.0 % [facility] Platelet mean volume (Bld) [Entitic vol] 9.7 fL 9.5 - 13.5 fL [facility] EO # 0.1 [facility] PLT 291 [facility] RBC 4.83 [facility] WBC 5.1 [facility] [place] 01-07-2024 L Specimen: [id number] Received: 01/07/24 Status: LAWSON Guzman Num: [id number] Spec Type: Surgical Subm Dr: Katie Rust Tissues: A Endometrial Polyp (ENOMETRIAL POLYP AND CURETTI) Procedures: HE/2, Gross/Micro L4 Age/ Patient Sex Location Account Attending Physician Yulia Dorsey 58/F LABELL [id number] Katie Rust SPEC NUM: [id number] RECD: 01/07/24 STATUS: LAWSON MCNEILLAmee NUM: [id number] TIMOTHY: 01/07/[address]: Katie Rust ENTERED: 01/07/24-1351 [facility] DR: Cristhian,Lab SPEC TYPE: Surgical DEPT: BIANCA VANN ENTERED BY: [id number] RECV BY: [id number] ORDERED: HE/2, Gross/Micro L4 ORDERED: HE/2, Gross/Micro [...] is entirely submitted cassette A1. CPT Codes 83237 -------- -------- Specimen: [id number] Received: 01/07/24 Status: LAWSON Mcneillamee Num: [id number] Spec Type: Surgical Subm Dr: Katie Rust Tissues: A Endometrial Polyp (ENOMETRIAL POLYP AND CURETTI) Procedures: HE/2, Gross/Micro L4 -------- Patient: Gen Willianrenee Arrieta [id number] (Continued) -------- Signed (signature on file) Tammie Mcclellan MD 01/13/[address] [facility] Physician [facility] Patient Letter FTon 2023 Patient Letter [facility] Patient Letter [facility] January 07, 2024 YULIA DORSEY [address] [place] [address] : 1965 Dear Yulia Dorsey, We have been trying to reach you with no success. It is important that you return our call upon receiving this letter. Also, at the time of your call, please provide us with your current information. Thank you for your prompt attention to this matter. Sincerely, [facility] [address] [place] [address] [facility] Ambulatory Visit Summaryon 0 12-30-2023 Ambulatory [...] you for choosing us for your care. [facility] Provider Letteron 12-30-2023 Provider Letter Provider Letter December 30, 2023 YULIA DORSEY [address] [place], [place] [address] [address] : 1965 To Whom It May Concern, Please excuse above patient from work. 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 Kidney stones (N20.0: Calculus of kidney) [...] now. -K (more content not included)... Normal [facility] Comment on above: Result Comment: Elec tronically Signed By: Farideh BARREAR, Bessie Modi\.br\Date and Time Signed: 12/30/23 15:22 EDT URETHRITIS/DISCHARGE PLUS VA GINITIS (HTRX)on 12-22-2023 ATOPOBIUM VAGINAE 0.000 [facility] ATOPOBIUM VAGINAE Not detected [facility] BVAB 2,3 (BACTERIAL VAGINOSIS ASSOCIATED BACTERIA 2, 3); MOBILUNCUS SPP 0.000 [facility] Healthcare BVAB 2,3 (BACTERIAL [...] 0.000 [facility] TRICHOMONAS VAGINALIS Not detected [facility] MG MAMM DX 3D RT CADon 09-22 MG MAMM DX 3D RT CAD Patient: YULIA DORSEY Exam Date: 09/22/2022 : 1965 Gender:F Ordering : DR AKTIE RUST . Admission #: [id number] Family : Order #: [id number] CLICK HERE TO VIEW EXAM RADIOLOGY REPORT [...] breast cancer at age 40. LOCATION: [facility] BREAST COMPOSITION: Almost entirely fatty. FINDINGS: [...] on 09/22/2022 at 15:03 Normal [facility] US BREAST RIGHT LIMITEDon US BREAST RIGHT LIMITED Patient: YULIA DORSEY Exam Date: 09/22/2022 : 1965 Gender:F Ordering : DR KATIE RUST . Admission #: [id number] Family : Order #: [id number] CLICK HERE TO VIEW EXAM RADIOLOGY REPORT [...] breast cancer at age 40. LOCATION: [facility] BREAST COMPOSITION: Almost entirely fatty. FINDINGS: [...] on 09/22/2022 at 15:03 [address] [facility] US ST HEAD_NECKon 05-08-[address] HEAD_NECK [...] by: GABO STRONG Date: 2022-08-31 08:09 Normal [facility] US PELVIS AND TRANSVAGon US PELVIS AND [...] GABO STRONG Date: 2022-07-29 06:32 Normal [facility] INSULINon 07-04-2022 Insulin 6.2 uIU/mL Normal 2.6-24.9 [facility] Comment on above: Performed By: #### H STRONETO, CMP #### [facility] [address] [place] [address] Dr. Judd Andrade CBC AUTO DIFFon 07-03-2022 BASO # 0.0 103/ul Normal 0.0-0.1 [facility] Comment on above: Performed By: #### C BC #### [facility] [address] [place] [address] Dr. Judd Andarde Basophils/100 WBC (Bld) 1.1 % Normal 0.2-2.0 [facility] Comment on above: Performed By: #### C BC #### [facility] [address] [place] [address] Dr. Judd Andrade EO # 0.1 103/ul Normal 0.0-0.7 [facility] Comment on above: Performed By: #### C BC #### [facility] [address] [place] [address] Dr. Judd Andrade Eosinophils/100 WBC (Bld) 3.6 % Normal 0.9-7.0 [facility] Comment on above: Performed By: #### C BC #### [facility] [address] [place] [address] Dr. Judd Andrade Erythrocyte distribution width (RBC) [Ratio] 13.6 % Normal 11.0-15.0 [facility] Comment on above: Performed By: #### C BC #### [facility] [address] [place] [address] Dr. Judd Andrade Hematocrit (Bld) [Volume fraction] 41.8 % Normal 36.0-48.0 [facility] Comment on above: Performed By: #### C BC #### [facility] [address] [place] [address] Dr. Judd Andrade Hemoglobin (Bld) [Mass/Vol] 13.5 g/dL Normal 12.0-16.0 [facility] Comment on above: Performed By: #### C BC #### [facility] [address] [place] [address] Dr. Judd Andrade IG # 0.01 10e3/ul Normal 0.00-0.03 [facility] Comment on above: Performed By: #### C BC #### [facility] [address] [place] [address] Dr. Judd Andrade IG % 0.3 % Normal 0.0-0.5 [facility] Comment on above: Performed By: #### C BC #### [facility] [address] [place] [address] Dr. Judd Andrade LYMPH # 1.4 103/ul Normal 1.2-3.8 [facility] Comment on above: Performed By: #### C BC #### [facility] [address] [place] [address] Dr. Judd Andrade Lymphocytes/100 WBC (Bld) 38.4 % Normal 20.5-60.0 [facility] Comment on above: Performed By: #### C BC #### [facility] [address] [place] [address] Dr. Judd Andrade MANUAL DIFF REQ NO Normal [facility] Comment on above: Performed By: #### C BC #### [facility] [address] [place] [address] Dr. Judd Andrade MCH (RBC) [Entitic mass] 28.2 pg Normal 26.7-34.0 [facility] Comment on above: Performed By: #### C BC #### [facility] [address] [place] [address] Dr. Judd Andrade MCHC (RBC) [Mass/Vol] 32.3 g/dL Normal 29.9-35.2 [facility] Comment on above: Performed By: #### C BC #### [facility] [address] [place] [address] Dr. Judd Andrade MCV (RBC) [Entitic vol] 87.4 fL Normal 81.0-99.0 [facility] Comment on above: Performed By: #### C BC #### [facility] [address] [place] [address] Dr. Judd Andrade MONO # 0.4 103/ul Normal 0.3-0.8 [facility] Comment on above: Performed By: #### C BC #### [facility] [address] [place] [address] Dr. Judd Andrade Monocytes/100 WBC (Bld) 10.4 % Normal 1.7-12.0 [facility] Comment on above: Performed By: #### C BC #### [facility] [address] [place] [address] Dr. Judd Andrade NEUT # 1.7 103/ul Normal 1.4-6.5 [facility] Comment on above: Performed By: #### C BC #### [facility] [address] [address] [address] Judd Andrade Neutrophils/100 WBC (Bld) 46.2 % Normal 43.0-75.0 [facility] Comment on above: Performed By: #### C BC #### [facility] [address] [place] [address] Dr. Judd Andrade Platelet mean volume (Bld) [Entitic vol] 9.6 fL Normal 9.5-13.5 [facility] Comment on above: Performed By: #### C BC #### [facility] [address] [place] [address] Dr. Judd Andrade PLT 246 103/ul Normal 150-450 [facility] Comment on above: Performed By: #### C BC #### [facility] [address] [place] [address] Dr. Judd Andrade RBC 4.78 106/ul Normal 4.20-5.40 [facility] Comment on above: Performed By: #### C BC #### [facility] [address] [place] [address] Dr. Judd Andrade WBC 3.7 103/ul Critically low 4.0-11.0 [facility] Comment on above: Performed By: #### C BC #### [facility] [address] [place] [address] Dr. Judd Andrade FREE THYROXINE INDEX T7on 0 07-03-2022 FTI 3.20 Normal 1.30-4.50 [facility] Comment on above: Performed By: #### T 7, LIPID, TSH, CMP #### [facility] [address] [place] [address] Dr. Judd Andrade T3U 36.0 % Normal 30.0-39.0 [facility] Comment on above: Performed By: #### T 7, LIPID, TSH, CMP #### [facility] [address] [address] [address] Judd Andrade T4 [Mass/Vol] 8.90 ug/dL Normal 4.80-13.90 [facility] Comment on above: Performed By: #### T 7, LIPID, TSH, CMP #### [facility] [address] [address] [address] Judd Andrade GLYCOHEMOGLOBIN A1Con 2022 ADA RECOMMENDATION SEE BELOW Normal [facility] Comment on above: Result Comment: ADA RECOMMENDED LIMIT 4.0 - 6.0 ADA THERAPEUTIC TARGET < 7.0 ACTION SUGGESTED > 7.0 Performed By: #### C BC #### [facility] [address] [place] [address] Dr. Judd Andrade Glucose [Mass/Vol] 120 mg/dL Normal [facility] Comment on above: Performed By: #### C BC #### [facility] [address] [address] [address] Judd Andrade HbA1c (Bld) [Mass fraction] 5.8 % Normal 4.5-6.2 [facility] Comment on above: Performed By: #### C BC #### [facility] [address] [place] [address] Dr. Judd Andrade IRONon 07-03-2022 Iron [Mass/Vol] 67.0 ug/dL Normal 50.0-170.0 [facility] Comment on above: Performed By: #### V ITAD, IRON #### [facility] [address] [address] [address] Judd Andrade LIPID PROFILEon 07-03-2022 CHOL-HDL RATIO NORM SEE BELOW Normal [facility] Comment on above: Result Comment: 3.3 - 4.4 LOW RISK 4.4 - 7.1 AVERAGE RISK 7.1 - 11.0 MODERATE RISK >11.0 HIGH RISK Performed By: #### T 7, LIPID, TSH, CMP #### [facility] [address] [place] [address] Dr. Judd Andrade Cholesterol [Mass/Vol] 216 mg/dL Critically high <=200 [facility] Comment on above: Performed By: #### T 7, LIPID, TSH, CMP #### [facility] [address] [address] [address] Judd Andrade Cholesterol in HDL [Mass/Vol] 87 mg/dL Critically high 40-60 [facility] Comment on above: Performed By: #### T 7, LIPID, TSH, CMP #### [facility] [address] [address] [address] Judd Andrade Cholesterol in LDL [Mass/Vol] 124.2 mg/dL Normal [facility] Comment on above: Performed By: #### T 7, LIPID, TSH, CMP #### [facility] [address] [place] [address] Dr. Judd Andrade Cholesterol.total/C holesterol in HDL [Mass ratio] 2.5 {ratio} Normal [facility] Comment on above: Performed By: #### T 7, LIPID, TSH, CMP #### [facility] [address] [place] [address] Dr. Judd Andrade HDL NORMAL > or = 60 mg/dl - LO W CARDIOVASCULAR RISK <40 mg/dl - HIGH CARDIOVASCULAR RISK Normal [facility] Comment on above: Performed By: #### T 7, LIPID, TSH, CMP #### [facility] [address] [place] [address] Dr. Judd Andrade LDL CALC NORMAL SEE BELOW Normal [facility] Comment on above: Result Comment: <100 mg/dl OPTIMAL 100 - 129 mg/dl NEAR OR ABOVE OPTIMAL 130 - 159 mg/dl BORDERLINE HIGH 160 - 189 mg/dl HIGH >190 mg/dl VERY HIGH Performed By: #### T 7, LIPID, TSH, CMP #### [facility] [address] [place] [address] Dr. Judd Andrade Triglyceride [Mass/Vol] 24 mg/dL Normal <=150 [facility] Comment on above: Performed By: #### T 7, LIPID, TSH, CMP #### [facility] [address] [place] [address] Dr. Judd Andrade VLDL CALC 4.8 mg/dL Normal [facility] Comment on above: Performed By: #### T 7, LIPID, TSH, CMP #### [facility] [address] [address] [address] Judd Andrade PROF 14(COMP METB)on 023 Albumin [Mass/Vol] 4.0 g/dL Normal 3.4-5.0 [facility] Comment on above: Performed By: #### T 7, LIPID, TSH, CMP #### [facility] [address] [place] [address] Dr. Judd Andrade Albumin/Globulin [Mass ratio] 1.1 {ratio} Normal [facility] Comment on above: Performed By: #### T 7, LIPID, TSH, CMP #### [facility] [address] [place] [address] Dr. Judd Andrade ALP [Catalytic activity/Vol] 78 U/L Normal 46-116 [facility] Comment on above: Performed By: #### T 7, LIPID, TSH, CMP #### [facility] [address] [place] [address] Dr. Judd Andrade ALT [Catalytic activity/Vol] 29 U/L Normal 14-59 [facility] Comment on above: Performed By: #### T 7, LIPID, TSH, CMP #### [facility] [address] [address] [address] Judd Andrade Anion gap [Moles/Vol] 5.6 mmol/L Normal [facility] Comment on above: Performed By: #### T 7, LIPID, TSH, CMP #### [facility] [address] [address] [address] Judd Andrade AST [Catalytic activity/Vol] 23 U/L Normal 15-37 [facility] Comment on above: Performed By: #### T 7, LIPID, TSH, CMP #### [facility] [address] [place] [address] Dr. Judd Andrade Bilirubin [Mass/Vol] 0.5 mg/dL Normal 0.2-1.0 [facility] Comment on above: Performed By: #### T 7, LIPID, TSH, CMP #### [facility] [address] [address] [address] Judd Andrade Calcium [Mass/Vol] 8.9 mg/dL Normal 8.5-10.[address] [facility] Comment on above: Performed By: #### T 7, LIPID, TSH, CMP #### [facility] [address] [place] [address] Dr. Judd Andrade Chloride [Moles/Vol] 105 mmol/L Normal 98-107 [facility] Comment on above: Performed By: #### T 7, LIPID, TSH, CMP #### [facility] [address] [place] [address] Dr. Judd Andrade CO2 [Moles/Vol] 32.0 mmol/L Normal 21.0-32.0 [facility] Comment on above: Performed By: #### T 7, LIPID, TSH, CMP #### [facility] [address] [place] [address] Dr. Judd Andrade Creatinine [Mass/Vol] 0.52 mg/dL Critically low 0.55-1.02 [facility] Comment on above: Performed By: #### T 7, LIPID, TSH, CMP #### [facility] [address] [place] [address] Dr. Judd Andrade EGFR-AF SYRIAN >60 Normal >=60 [facility] Comment on above: Performed By: #### T 7, LIPID, TSH, CMP #### [facility] [address] [place] [address] Dr. Judd Andrade EGFR-NON AF SYRIAN >60 Normal >=60 [facility] Comment on above: Performed By: #### T 7, LIPID, TSH, CMP #### [facility] [address] [place] [address] Dr. Judd Andrade Globulin (S) [Mass/Vol] 3.6 g/dL Normal [facility] Comment on above: Performed By: #### T 7, LIPID, TSH, CMP #### [facility] [address] [place] [address] Dr. Judd Andrade Glucose [Mass/Vol] 89 mg/dL Normal 74-[address] [facility] Comment on above: Performed By: #### T 7, LIPID, TSH, CMP #### [facility] [address] [place] [address] Dr. Judd Andrade Potassium [Moles/Vol] 4.2 mmol/L Normal 3.5-5.1 [facility] Comment on above: Performed By: #### T 7, LIPID, TSH, CMP #### [facility] [address] [place] [address] Dr. Judd Andrade Protein [Mass/Vol] 7.6 g/dL Normal 6.4-8.[address] [facility] Comment on above: Performed By: #### T 7, LIPID, TSH, CMP #### [facility] [address] [place] [address] Dr. Judd Andrade Sodium [Moles/Vol] 139 mmol/L Normal 136-[address] [facility] Comment on above: Performed By: #### T 7, LIPID, TSH, CMP #### [facility] [address] [place] [address] Dr. Judd Andrade Urea nitrogen [Mass/Vol] 11.0 mg/dL Normal 7.0-18.0 [facility] Comment on above: Performed By: #### T 7, LIPID, TSH, CMP #### [facility] [address] [place] [address] Dr. Judd Andrade Urea nitrogen/Creatinine [Mass ratio] 21.2 mg/mg Normal [facility] Comment on above: Performed By: #### T 7, LIPID, TSH, CMP #### [facility] [address] [place] [address] Dr. Judd Andrade TSHon 07-03-2022 TSH 1.037 uIU/mL Normal 0.358-3.[address] [facility] Comment on above: Performed By: #### T 7, LIPID, TSH, CMP #### [facility] [address] [place] [address] Dr. Judd Andrade VITAMIN D 25 OHon 07-03-2022 VIT D 25-OH 32.8 ng/mL Normal [facility] Comment on above: Performed By: #### V CARMELO, IRON #### [facility] [address] [place] [address] Dr. Judd Andrade VIT D RANGES SEE BELOW Normal [facility] Comment on above: Result Comment: <20 ng/mL Vit D deficient 20 - <30 ng/mL Vit D insufficient 30 - 100 ng/mL Vit D sufficient >100 ng/mL Potential Toxicity Performed By: #### V CARMELO, IRON #### [facility] [address] [place] [address] Dr. Judd Andrade BORDETELLA PERTUSSIS AB IGGo n 06-30-2022 B pertussis IgG Ab 3.88 index Invalid Interpretation Code 0.00-0.94 [facility] Comment on above: Result Comment: Clie nt Requested Flag Negative <0.95 Equivocal 0.95 - 1.04 Positive >1.04 Performed By: #### C BC #### [facility] [address] [place] [address] Dr. Judd Andrade BORDETELLA PERTUSSIS AB IGMo n 06-30-2022 B pertussis IgM Ab <1.0 Normal 0.0-0.9 [facility] Comment on above: Result Comment: Nega tive <1.0 Borderline 1.0 - 1.1 Positive >1.1 Performed By: #### H DEB, CMP #### [facility] [address] [place] [address] Dr. Judd Andrade ISUVS-0-[id number] 2022 Guhqx-2-Hgftlpjilbf , Serum 158 mg/dL Normal 101-187 [facility] Comment on above: Performed By: #### C BC #### [facility] [address] [place] [address] Dr. Judd Andrade CBC AUTO DIFFon 06-03-2022 BASO # 0.0 103/ul Normal 0.0-0.1 [facility] Comment on above: Performed By: #### H DEB, CMP #### [facility] [address] [place] [address] Dr. Judd Andrade Basophils/100 WBC (Bld) 0.6 % Normal 0.2-2.0 [facility] Comment on above: Performed By: #### H STROPN, CMP #### [facility] [address] [place] [address] Dr. Judd Andrade EO # 0.0 103/ul Normal 0.0-0.7 [facility] Comment on above: Performed By: #### H STROPN, CMP #### [facility] [address] [place] [address] Dr. Judd Andrade Eosinophils/100 WBC (Bld) 0.6 % Critically low 0.9-7.0 [facility] Comment on above: Performed By: #### H STROPN, CMP #### [facility] [address] [place] [address] Dr. Judd Andrade Erythrocyte distribution width (RBC) [Ratio] 13.5 % Normal 11.0-15.0 [facility] Comment on above: Performed By: #### H STROPN, CMP #### [facility] [address] [place] [address] Dr. Judd Andrade Hematocrit (Bld) [Volume fraction] 42.4 % Normal 36.0-48.0 [facility] Comment on above: Performed By: #### H STROPN, CMP #### [facility] [address] [place] [address] Dr. Judd Andrade Hemoglobin (Bld) [Mass/Vol] 13.4 g/dL Normal 12.0-16.0 [facility] Comment on above: Performed By: #### H STROPN, CMP #### [facility] [address] [place] [address] Dr. Judd Andrade IG # 0.01 10e3/ul Normal 0.00-0.03 [facility] Comment on above: Performed By: #### H STROPN, CMP #### [facility] [address] [place] [address] Dr. Judd Andrade IG % 0.2 % Normal 0.0-0.5 [facility] Comment on above: Performed By: #### H STROPN, CMP #### [facility] [address] [place] [address] Dr. Judd Andrade LYMPH # 1.1 103/ul Critically low 1.2-3.8 [facility] Comment on above: Performed By: #### H DEB, CMP #### [facility] [address] [place] [address] Dr. Judd Andrade Lymphocytes/100 WBC (Bld) 23.5 % Normal 20.5-60.0 [facility] Comment on above: Performed By: #### H STROPN, CMP #### [facility] [address] [place] [address] Dr. Judd Andrade MANUAL DIFF REQ NO Normal [facility] Comment on above: Performed By: #### H TERAPN, CMP #### [facility] [address] [place] [address] Dr. Judd Andrade MCH (RBC) [Entitic mass] 28.9 pg Normal 26.7-34.0 [facility] Comment on above: Performed By: #### H DEB, CMP #### [facility] [address] [place] [address] Dr. Judd Andrade MCHC (RBC) [Mass/Vol] 31.6 g/dL Normal 29.9-35.2 [facility] Comment on above: Performed By: #### H DEB, CMP #### [facility] [address] [place] [address] Dr. Judd Andrade MCV (RBC) [Entitic vol] 91.6 fL Normal 81.0-99.0 [facility] Comment on above: Performed By: #### H TERAPN, CMP #### [facility] [address] [place] [address] Dr. Judd Andrade MONO # 0.8 103/ul Normal 0.3-0.8 [facility] Comment on above: Performed By: #### H STROPN, CMP #### [facility] [address] [place] [address] Dr. Judd Andrade Monocytes/100 WBC (Bld) 16.5 % Critically high 1.7-12.0 [facility] Comment on above: Performed By: #### H STROPN, CMP #### [facility] [address] [place] [address] Dr. Judd Andrade NEUT # 2.7 103/ul Normal 1.4-6.5 [facility] Comment on above: Performed By: #### H DEB, CMP #### [facility] [address] [place] [address] Dr. Judd Andrade Neutrophils/100 WBC (Bld) 58.6 % Normal 43.0-75.0 [facility] Comment on above: Performed By: #### H DEB, CMP #### [facility] [address] [place] [address] Dr. Judd Andrade Platelet mean volume (Bld) [Entitic vol] 9.8 fL Normal 9.5-13.5 [facility] Comment on above: Performed By: #### H DEB, CMP #### [facility] [address] [place] [address] Dr. Judd Andrade PLT 252 103/ul Normal 150-450 [facility] Comment on above: Performed By: #### H DEB, CMP #### [facility] [address] [place] [address] Dr. Judd Andrade RBC 4.63 106/ul Normal 4.20-5.40 [facility] Comment on above: Performed By: #### H DEB, CMP #### [facility] [address] [place] [address] Dr. Judd Andrade WBC 4.7 103/ul Normal 4.0-11.0 [facility] Comment on above: Performed By: #### H DEB, CMP #### [facility] [address] [place] [address] Dr. Judd Andrade PROF 14(COMP METB)on 023 Albumin [Mass/Vol] 4.0 g/dL Normal 3.4-5.0 [facility] Comment on above: Performed By: #### H DEB, CMP #### [facility] [address] [place] [address] Dr. Judd Andrade Albumin/Globulin [Mass ratio] 1.0 {ratio} Normal [facility] Comment on above: Performed By: #### H DEB, CMP #### [facility] [address] [address] [address] Judd Andrade ALP [Catalytic activity/Vol] 77 U/L Normal 46-116 [facility] Comment on above: Performed By: #### H STROPN, CMP #### [facility] [address] [address] [address] Judd Andrade ALT [Catalytic activity/Vol] 33 U/L Normal 14-59 [facility] Comment on above: Performed By: #### H STROPN, CMP #### [facility] [address] [address] [address] Judd Andrade Anion gap [Moles/Vol] 8.0 mmol/L Normal [facility] Comment on above: Performed By: #### H STROPN, CMP #### [facility] [address] [place] [address] Dr. Judd Andrade AST [Catalytic activity/Vol] 28 U/L Normal 15-37 [facility] Comment on above: Performed By: #### H STROPN, CMP #### [facility] [address] [address] [address] Judd Andrade Bilirubin [Mass/Vol] 0.6 mg/dL Normal 0.2-1.0 [facility] Comment on above: Performed By: #### H STROPN, CMP #### [facility] [address] [place] [address] Dr. Judd Andrade Calcium [Mass/Vol] 9.3 mg/dL Normal 8.5-10.1 [facility] Comment on above: Performed By: #### H STROPN, CMP #### [facility] [address] [place] [address] Dr. Judd Andrade Chloride [Moles/Vol] 103 mmol/L Normal 98-107 [facility] Comment on above: Performed By: #### H STROPN, CMP #### [facility] [address] [address] [address] Judd Andrade CO2 [Moles/Vol] 33.6 mmol/L Critically high 21.0-32.0 [facility] Comment on above: Performed By: #### H STROPN, CMP #### [facility] [address] [address] [address] Judd Andrade Creatinine [Mass/Vol] 0.59 mg/dL Normal 0.55-1.02 [facility] Comment on above: Performed By: #### H STROPN, CMP #### [facility] [address] [address] [address] Judd Andrade EGFR-AF SYRIAN >60 Normal >=60 [facility] Comment on above: Performed By: #### H STROPN, CMP #### [facility] [address] [address] [address] Judd Andrade EGFR-NON AF SYRIAN >60 Normal >=60 [facility] Comment on above: Performed By: #### H STROPN, CMP #### [facility] [address] [address] [address] Judd Andrade Globulin (S) [Mass/Vol] 4.0 g/dL Normal [facility] Comment on above: Performed By: #### H STROPN, CMP #### [facility] [address] [address] [address] Judd Andrade Glucose [Mass/Vol] 130 mg/dL Critically high 74-106 [facility] Comment on above: Performed By: #### H STROPN, CMP #### [facility] [address] [address] [address] Judd Andrade Potassium [Moles/Vol] 3.6 mmol/L Normal 3.5-5.1 [facility] Comment on above: Performed By: #### H STROPN, CMP #### [facility] [address] [address] [address] Judd Andrade Protein [Mass/Vol] 8.0 g/dL Normal 6.4-8.[address] [facility] Comment on above: Performed By: #### H STROPN, CMP #### [facility] [address] [address] [address] Judd Andrade Sodium [Moles/Vol] 141 mmol/L Normal 136-145 [facility] Comment on above: Performed By: #### H STROPN, CMP #### [facility] [address] [place], [place] [address] Dr. Judd Andrade Urea nitrogen [Mass/Vol] 8.0 mg/dL Normal 7.0-18.0 [facility] Comment on above: Performed By: #### H TERAPN, CMP #### [facility] [address] [place], [place] [address] Dr. Judd Andrade Urea nitrogen/Creatinine [Mass ratio] 13.6 mg/mg Normal [facility] Comment on above: Performed By: #### H TREAPN, CMP #### [facility] [address] [place], [place] [address] Dr. Judd Andrade TROPONIN, HIGH SENSITIVITYon 06-03-2022 HSTROP <4.0 Normal 4.0-51.3 [facility] Comment on above: Result Comment: CUT- OFF POINTS HAVE BEEN ESTABLISHED BASED ON THE FOURTH UNIVERSAL DEFINITIONS OF MYOCARDIAL INFARCTION. THE UPPER REFERENCE LIMIT (URL) OF TROPONIN, DEFINED THE 99TH PERCENTILE OF cTnI DISTRIBUTION IN A REFERENCE POPULATION, HAS BEEN CONFIRMED THE DECISION THRESHOLD FOR DC DIAGNOSIS. Performed By: #### H TERAPN, CMP #### [facility] [address] [address] [address] Judd Andrade XR CHEST 2 Von [...] LINDA RHODES Date: 2022-06-03 12:15 Normal [facility] Covid-19 PCR (CVDTBH)on SARS-CoV-2 (COVID-19) RNA JOLLY+probe Ql (Unsp spec) Not detected Normal NOT DETECTED [facility] Comment on above: Result Comment: This test is not yet approved or cleared by the [place] FDA. When there are no FDA-approved or cleared tests available, and other criteria are met, FDA can make tests available under an emergency access mechanism called an Emergency Use Authorization (EUA). The EUA for this test is supported by the Community Health Program Coordinator of Health and Human Service's (HHS's) declaration [...] Performed By: #### H DEB, CMP #### [facility] [address] [place] [address] Dr. Judd Andrade INFLUENZA A AND B AGon 06-02 [facility] SEE BELOW Normal [facility] Comment on above: Result Comment: Nega tive for Flu A protein angiten. Infection due to Flu A cannot be ruled out. Flu A angiten in the sample may be below the detection limit of the test. Performed By: #### H DEB, CMP #### [facility] [address] [place] [address] Dr. Judd Andrade [facility] Comment on above: Result Comment: Nega tive for Flu B protein antigen. Infection due to Flu B cannot be ruled out. Flu B antigen in the sample may be below the detection limit of the test. Performed By: #### H STROPN, CMP #### [facility] [address] [place] [address] Dr. Judd Andrade INFLUENZA A AG Negative Normal NEGATIVE SEE COMMENT [facility] Comment on above: Performed By: #### H STROPN, CMP #### [facility] [address] [place] [address] Dr. Judd Andrade INFLUENZA B AG Negative Normal NEGATIVE SEE COMMENT [facility] Comment on above: Performed By: #### H STROPN, CMP #### [facility] [address] [address] [address] Jud[address] US ST HEAD_NECKon 02-11-2022 [...] GABO STRONG Date: 2022-02-11 16:24 Normal [facility] MAMM SCREEN 3D SUSANA CADon 02-10-2022 MAMM SCREEN 3D SUSANA CAD Patient: YULIA DORSEY Exam Date: 02/10/2022 : 1965 Gender:F Ordering : DR JOHN PORTER . Admission #: [id number] Family : Order #: [id number] CLICK HERE TO VIEW EXAM RADIOLOGY REPORT [...] breast cancer at age 40. LOCATION: [facility] BREAST COMPOSITION: Almost entirely fatty. FINDINGS: [...] M.D. on 02/11/2022 at 14:20 Normal [facility] XR CHEST 1 Von 01-15-2022 XR [...] KAREN VALDEZ Date: 2022-01-15 18:39 Normal [facility] CBC AUTO DIFFon 12-30-2021 BASO # 0.0 103/ul Normal 0.0-0.1 [facility] Comment on above: Performed By: #### C BC #### [facility] [address] [address] [address] Judd Andrade Basophils/100 WBC (Bld) 0.6 % Normal 0.2-2.0 [facility] Comment on above: Performed By: #### C BC #### [facility] [address] [address] [address] Judd Andrade EO # 0.1 103/ul Normal 0.0-0.7 [facility] Comment on above: Performed By: #### C BC #### [facility] [address] [place] [address] Dr. Judd Andrade Eosinophils/100 WBC (Bld) 2.1 % Normal 0.9-7.0 [facility] Comment on above: Performed By: #### C BC #### [facility] [address] [address] [address] Judd Andrade Erythrocyte distribution width (RBC) [Ratio] 13.0 % Normal 11.0-15.0 [facility] Comment on above: Performed By: #### C BC #### [facility] [address] [address] [address] Judd Andrade Hematocrit (Bld) [Volume fraction] 41.9 % Normal 36.0-48.0 [facility] Comment on above: Performed By: #### C BC #### [facility] [address] [place] [address] Dr. Judd Andrade Hemoglobin (Bld) [Mass/Vol] 13.7 g/dL Normal 12.0-16.0 [facility] Comment on above: Performed By: #### C BC #### [facility] [address] [place] [address] Dr. Judd Andrade IG # 0.03 10e3/ul Normal 0.00-0.03 [facility] Comment on above: Performed By: #### C BC #### [facility] [address] [place] [address] Dr. Judd Andrade IG % 0.6 % Critically high 0.0-0.5 [facility] Comment on above: Performed By: #### C BC #### [facility] [address] [place] [address] Dr. Judd Andrade LYMPH # 1.9 103/ul Normal 1.2-3.8 [facility] Comment on above: Performed By: #### C BC #### [facility] [address] [place] [address] Dr. Judd Andrade Lymphocytes/100 WBC (Bld) 34.5 % Normal 20.5-60.0 [facility] Comment on above: Performed By: #### C BC #### [facility] [address] [place] [address] Dr. Judd Andrade MANUAL DIFF REQ NO Normal [facility] Comment on above: Performed By: #### C BC #### [facility] [address] [place] [address] Dr. Judd Andrade MCH (RBC) [Entitic mass] 28.5 pg Normal 26.7-34.0 [facility] Comment on above: Performed By: #### C BC #### [facility] [address] [place] [address] Dr. Judd Andrade MCHC (RBC) [Mass/Vol] 32.7 g/dL Normal 29.9-35.2 [facility] Comment on above: Performed By: #### C BC #### [facility] [address] [place] [address] Dr. Judd Andrade MCV (RBC) [Entitic vol] 87.1 fL Normal 81.0-99.0 [facility] Comment on above: Performed By: #### C BC #### [facility] [address] [place] [address] Dr. Judd Andrade MONO # 0.6 103/ul Normal 0.3-0.8 [facility] Comment on above: Performed By: #### C BC #### [facility] [address] [place] [address] Dr. Judd Andrade Monocytes/100 WBC (Bld) 10.4 % Normal 1.7-12.0 [facility] Comment on above: Performed By: #### C BC #### [facility] [address] [place] [address] Dr. Judd Andrade NEUT # 2.8 103/ul Normal 1.4-6.5 [facility] Comment on above: Performed By: #### C BC #### [facility] [address] [place] [address] Dr. Judd Andrade Neutrophils/100 WBC (Bld) 51.8 % Normal 43.0-75.0 [facility] Comment on above: Performed By: #### C BC #### [facility] [address] [place] [address] Dr. Judd Andrade Platelet mean volume (Bld) [Entitic vol] 10.5 fL Normal 9.5-13.5 [facility] Comment on above: Performed By: #### C BC #### [facility] [address] [place] [address] Dr. Judd Andrade PLT 270 103/ul Normal 150-450 [facility] Comment on above: Performed By: #### C BC #### [facility] [address] [place] [address] Dr. Judd Andrade RBC 4.81 106/ul Normal 4.20-5.40 [facility] Comment on above: Performed By: #### C BC #### [facility] [address] [place] [address] Dr. Judd Andrade WBC 5.4 103/ul Normal 4.0-11.0 [facility] Comment on above: Performed By: #### C BC #### [facility] [address] [place] [address] Dr. Judd Andrade CRPon 12-30-2021 CRP [Mass/Vol] mg/L Normal <=1.0 [facility] Comment on above: Performed By: #### C BC #### [facility] [address] [place] [address] Dr. Judd Andrade PROF 14(COMP METB)on 022 Albumin [Mass/Vol] 3.9 g/dL Normal 3.4-5.0 [facility] Comment on above: Performed By: #### C BC #### [facility] [address] [place] [address] Dr. Judd Andrade Albumin/Globulin [Mass ratio] 1.0 {ratio} Normal [facility] Comment on above: Performed By: #### C BC #### [facility] [address] [place] [address] Dr. Judd Andrade ALP [Catalytic activity/Vol] 64 U/L Normal 46-116 [facility] Comment on above: Performed By: #### C BC #### [facility] [address] [place] [address] Dr. Judd Andrade ALT [Catalytic activity/Vol] 50 U/L Normal 14-59 [facility] Comment on above: Performed By: #### C BC #### [facility] [address] [place] [address] Dr. Judd Andrade Anion gap [Moles/Vol] 11.1 mmol/L Normal [facility] Comment on above: Performed By: #### C BC #### [facility] [address] [place] [address] Dr. Judd Andrade AST [Catalytic activity/Vol] 28 U/L Normal 15-37 [facility] Comment on above: Performed By: #### C BC #### [facility] [address] [place] [address] Dr. Judd Andrade Bilirubin [Mass/Vol] 0.5 mg/dL Normal 0.2-1.0 [facility] Comment on above: Performed By: #### C BC #### [facility] [address] [address] [address] Judd Andrade Calcium [Mass/Vol] 8.9 mg/dL Normal 8.5-10.1 [facility] Comment on above: Performed By: #### C BC #### [facility] [address] [address] [address] Judd Andrade Chloride [Moles/Vol] 101 mmol/L Normal 98-107 [facility] Comment on above: Performed By: #### C BC #### [facility] [address] [address] [address] Judd Andrade CO2 [Moles/Vol] 29.4 mmol/L Normal 21.0-32.0 [facility] Comment on above: Performed By: #### C BC #### [facility] [address] [address] [address] Judd Andrade Creatinine [Mass/Vol] 0.73 mg/dL Normal 0.55-1.02 [facility] Comment on above: Performed By: #### C BC #### [facility] [address] [address] [address] Judd Andrade EGFR-AF SYRIAN >60 Normal >=60 [facility] Comment on above: Performed By: #### C BC #### [facility] [address] [address] [address] Judd Andrade EGFR-NON AF SYRIAN >60 Normal >=60 [facility] Comment on above: Performed By: #### C BC #### [facility] [address] [address] [address] Judd Andrade Globulin (S) [Mass/Vol] 3.8 g/dL Normal [facility] Comment on above: Performed By: #### C BC #### [facility] [address] [address] [address] Judd Andrade Glucose [Mass/Vol] 139 mg/dL Critically high 74-106 [facility] Comment on above: Performed By: #### C BC #### [facility] [address], [place] [address] Dr. Judd Andrade Potassium [Moles/Vol] 3.5 mmol/L Normal 3.5-5.1 [facility] Comment on above: Performed By: #### C BC #### [facility] [address] [address] [address] Judd Andrade Protein [Mass/Vol] 7.7 g/dL Normal 6.4-8.[address] [facility] Comment on above: Performed By: #### C BC #### [facility] [address] [id number] Judd Andrade Sodium [Moles/Vol] 138 mmol/L Normal 136-[address] [facility] Comment on above: Performed By: #### C BC #### [facility] [address] [address] [address] Judd Andrade Urea nitrogen [Mass/Vol] 12.0 mg/dL Normal 7.0-18.0 [facility] Comment on above: Performed By: #### C BC #### [facility] [address] [address] [address] Judd Andrade Urea nitrogen/Creatinine [Mass ratio] 16.4 mg/mg Normal [facility] Comment on above: Performed By: #### C BC #### [facility] [id number] Judd Andrade XR CHEST 2 Von [...] ARTEMIO DIXON Date: 2021-12-29 20:49 Normal [facility] TRYPTASEon 12-27-2021 Tryptase 4.5 ug/L Normal 2.2-13.2 [facility] Comment on above: Performed By: #### C BC #### [facility] [address] [id number] Judd Andrade CBC AUTO DIFFon 12-23-2021 BASO # 0.0 103/ul Normal 0.0-0.1 [facility] Comment on above: Performed By: #### H STROPN, CMP #### [facility] [address] [place] [address] Dr. Judd Andrade Basophils/100 WBC (Bld) 0.7 % Normal 0.2-2.0 [facility] Comment on above: Performed By: #### H STROPN, CMP #### [facility] [address] [place] [address] Dr. Judd Andrade EO # 0.0 103/ul Normal 0.0-0.7 [facility] Comment on above: Performed By: #### H STROPN, CMP #### [facility] [address] [place] [address] Dr. Judd Andrade Eosinophils/100 WBC (Bld) 0.0 % Critically low 0.9-7.0 [facility] Comment on above: Performed By: #### H STROPN, CMP #### [facility] [address] [place] [address] Dr. Judd Andrade Erythrocyte distribution width (RBC) [Ratio] 13.2 % Normal 11.0-15.0 [facility] Comment on above: Performed By: #### H STROPN, CMP #### [facility] [address] [place] [address] Dr. Judd Andrade Hematocrit (Bld) [Volume fraction] 42.1 % Normal 36.0-48.0 [facility] Comment on above: Performed By: #### H STROPN, CMP #### [facility] [address] [place] [address] Dr. Judd Andrade Hemoglobin (Bld) [Mass/Vol] 13.7 g/dL Normal 12.0-16.0 [facility] Comment on above: Performed By: #### H STROPN, CMP #### [facility] [address] [place] [address] Dr. Judd Andrade IG # 0.01 10e3/ul Normal 0.00-0.03 [facility] Comment on above: Performed By: #### H STROPN, CMP #### [facility] [address] [address] [address] Judd Andrade IG % 0.3 % Normal 0.0-0.5 [facility] Comment on above: Performed By: #### H STROPN, CMP #### [facility] [address] [address] [address] Judd Andrade LYMPH # 0.7 103/ul Critically low 1.2-3.8 [facility] Comment on above: Performed By: #### H STROPN, CMP #### [facility] [address] [address] [address] Judd Andrade Lymphocytes/100 WBC (Bld) 24.1 % Normal 20.5-60.0 [facility] Comment on above: Performed By: #### H STROPN, CMP #### [facility] Laboratory [address] [address] [address] Judd Andrade MANUAL DIFF REQ NO Normal [facility] Comment on above: Performed By: #### H STROPN, CMP #### [facility] [address] [address] [address] Judd Andrade MCH (RBC) [Entitic mass] 28.4 pg Normal 26.7-34.0 [facility] Comment on above: Performed By: #### H STROPN, CMP #### [facility] [address] [address] [address] Judd Andrade MCHC (RBC) [Mass/Vol] 32.5 g/dL Normal 29.9-35.2 [facility] Comment on above: Performed By: #### H STROPN, CMP #### [facility] [address] [address] [address] Judd Andrade MCV (RBC) [Entitic vol] 87.2 fL Normal 81.0-99.0 [facility] Comment on above: Performed By: #### H STROPN, CMP #### [facility] [address] [address] [address] Judd Andrade MONO # 0.5 103/ul Normal 0.3-0.8 [facility] Comment on above: Performed By: #### H STROPN, CMP #### [facility] [address] [address] [address] Judd Andrade Monocytes/100 WBC (Bld) 16.9 % Critically high 1.7-12.0 [facility] Comment on above: Performed By: #### H STROPN, CMP #### [facility] [address] [place] [address] Dr. Judd Andrade NEUT # 1.8 103/ul Normal 1.4-6.5 [facility] Comment on above: Performed By: #### H STROPN, CMP #### [facility] [address] [place] [address] Dr. Judd Andrade Neutrophils/100 WBC (Bld) 58.0 % Normal 43.0-75.0 [facility] Comment on above: Performed By: #### H STROPN, CMP #### [facility] [address] [place] [address] Dr. Judd Andrade Platelet mean volume (Bld) [Entitic vol] 9.9 fL Normal 9.5-13.5 [facility] Comment on above: Performed By: #### H STROPN, CMP #### [facility] [address] [place] [address] Dr. Judd Andrade PLT 210 103/ul Normal 150-450 [facility] Comment on above: Performed By: #### H STROPN, CMP #### [facility] [address] [place] [address] Dr. Judd Andrade RBC 4.83 106/ul Normal 4.20-5.40 [facility] Comment on above: Performed By: #### H STROPN, CMP #### [facility] [address] [place] [address] Dr. Judd Andrade WBC 3.1 103/ul Critically low 4.0-11.0 [facility] Comment on above: Performed By: #### H STROPN, CMP #### [facility] [address] [place] [address] Dr. Judd Andrade IRONon 12-23-2021 Iron [Mass/Vol] 35.0 ug/dL Critically low 50.0-170.0 [facility] Comment on above: Performed By: #### C BC #### [facility] [address] [place] [address] Dr. Judd Andrade PROF 14(COMP METB)on Albumin [Mass/Vol] 3.9 g/dL Normal 3.4-5.0 [facility] Comment on above: Performed By: #### C BC #### [facility] [address] [place] [address] Dr. Judd Andrade Albumin/Globulin [Mass ratio] 1.0 {ratio} Normal [facility] Comment on above: Performed By: #### C BC #### [facility] [address] [place] [address] Dr. Judd Andrade ALP [Catalytic activity/Vol] 70 U/L Normal 46-116 [facility] Comment on above: Performed By: #### C BC #### [facility] [address] [place] [address] Dr. Judd Andrade ALT [Catalytic activity/Vol] 43 U/L Normal 14-59 [facility] Comment on above: Performed By: #### C BC #### [facility] [address] [place] [address] Dr. Judd Andrade Anion gap [Moles/Vol] 11.5 mmol/L Normal [facility] Comment on above: Performed By: #### C BC #### [facility] [address] [place] [address] Dr. Judd Andrade AST [Catalytic activity/Vol] 33 U/L Normal 15-37 [facility] Comment on above: Performed By: #### C BC #### [facility] [address] [place] [address] Dr. Judd Andrade Bilirubin [Mass/Vol] 0.3 mg/dL Normal 0.2-1.0 [facility] Comment on above: Performed By: #### C BC #### [facility] [address] [place] [address] Dr. Judd Andrade Calcium [Mass/Vol] 8.9 mg/dL Normal 8.5-10.[address] [facility] Comment on above: Performed By: #### C BC #### [facility] [address] [place] [address] Dr. Judd Andrade Chloride [Moles/Vol] 101 mmol/L Normal 98-107 [facility] Comment on above: Performed By: #### C BC #### [facility] [address] [place] [address] Dr. Judd Andrade CO2 [Moles/Vol] 31.1 mmol/L Normal 21.0-32.0 [facility] Comment on above: Performed By: #### C BC #### [facility] [address] [place] [address] Dr. Judd Andrade Creatinine [Mass/Vol] 0.69 mg/dL Normal 0.55-1.02 [facility] Comment on above: Performed By: #### C BC #### [facility] [address] [place] [address] Dr. Judd Andrade EGFR-AF SYRIAN >60 Normal >=60 [facility] Comment on above: Performed By: #### C BC #### [facility] [address] [place] [address] Dr. Judd Andrade EGFR-NON AF SYRIAN >60 Normal >=60 [facility] Comment on above: Performed By: #### C BC #### [facility] [address] [place] [address] Dr. Judd Andrade Globulin (S) [Mass/Vol] 3.8 g/dL Normal [facility] Comment on above: Performed By: #### C BC #### [facility] [address] [place] [address] Dr. Judd Andrade Glucose [Mass/Vol] 103 mg/dL Normal 74-[address] [facility] Comment on above: Performed By: #### C BC #### [facility] [address] [place] [address] Dr. Judd Andrade Potassium [Moles/Vol] 3.6 mmol/L Normal 3.5-5.1 [facility] Comment on above: Performed By: #### C BC #### [facility] [address] [address] [address] Judd Andrade Protein [Mass/Vol] 7.7 g/dL Normal 6.4-8.2 [facility] Comment on above: Performed By: #### C BC #### [facility] [address] [address] [address] Judd Andrade Sodium [Moles/Vol] 140 mmol/L Normal 136-145 [facility] Comment on above: Performed By: #### C BC #### [facility] [address] [address] [address] Judd Andrade Urea nitrogen [Mass/Vol] 11.0 mg/dL Normal 7.0-18.0 [facility] Comment on above: Performed By: #### C BC #### [facility] [address] [place] [address] Dr. Judd Andrade Urea nitrogen/Creatinine [Mass ratio] 15.9 mg/mg Normal [facility] Comment on above: Performed By: #### C BC #### [facility] [address] [place] [address] Dr. Judd Andrade PROTIMEon 12-23-2021 INR Coag (PPP) [Relative time] 1.04 {INR} Normal [facility] Comment on above: Performed By: #### H DEB, CMP #### [facility] [address] [address] [address] Judd Andrade INR GUIDELINES SEE BELOW Normal [facility] Comment on above: Result Comment: PRIETO RED INR: 2.0 - 3.0 CONDITIONS NOT LISTED BELOW 2.5 - 3.5 FOR PROSTHETIC HEART VALVE REPLACEMENT 2.5 - 3.5 RECURRENT THROMBOSIS Performed By: #### H DEB, CMP #### [facility] [address] [place] [address] Dr. Judd Andrade PT Coag (PPP) [Time] 11.2 s Normal 9.0-11.6 [facility] Comment on above: Performed By: #### H DEB, CMP #### [facility] [address] [place] [address] Dr. Judd Andrade PTTon 12-23-2021 aPTT Coag (Bld) [Time] 31.5 s Normal 22.3-36.2 [facility] Comment on above: Performed By: #### H TERAPN, CMP #### [facility] [address] [address] [address] Judd Andrade ER URINE PROFILEon Bilirubin Ql (U) Negative Normal NEGATIVE [facility] Comment on above: Performed By: #### H STROPN, CMP #### [facility] [address] [address] [address] Judd Andrade Clarity (U) CLEAR Normal CLEAR [facility] Comment on above: Performed By: #### H TERAPN, CMP #### [facility] [address] [place] [address] Dr. Judd Andrade Color (U) LT. YELLOW Normal YELLOW [facility] Comment on above: Performed By: #### H DEB, CMP #### [facility] [address] [place] [address] Dr. Judd Andrade ERUSUZY A micrscopic examination will be performed if indicated. Normal [facility] Comment on above: Performed By: #### H TERAPN, CMP #### [facility] [address] [place] [address] Dr. Judd Andrade Glucose Ql (U) Negative Normal NEGATIVE [facility] Comment on above: Performed By: #### H TERAPN, CMP #### [facility] [address] [address] [address] Judd Andrade Hemoglobin Ql (U) TRACE-INTACT Abnormal NEGATIVE [facility] Comment on above: Performed By: #### H STROPN, CMP #### [facility] [address] [place] [address] Dr. Judd Andrade Ketones Ql (U) Negative Normal NEGATIVE [facility] Comment on above: Performed By: #### H STROPN, CMP #### [facility] [address] [address] [address] Judd Andrade LEUKOCYTES Negative Normal NEGATIVE [facility] Comment on above: Performed By: #### H TERAPN, CMP #### [facility] [address] [address] [address] Judd Andrade Nitrite Ql (U) Negative Normal NEGATIVE [facility] Comment on above: Performed By: #### H TERAPN, CMP #### [facility] [address] [address] [address] Judd Andrade pH (U) 6.0 [pH] Normal 5-9 [facility] Comment on above: Performed By: #### H DEB, CMP #### [facility] [address] [place] [address] Dr. Judd Andrade SPEC GRAVITY 1.005 Normal 1.005-<=1.025 [facility] Comment on above: Performed By: #### H DEB, CMP #### [facility] [address] [place] [address] Dr. Judd Andrade UA PROTEIN Negative Normal NEGATIVE/ TRACE [facility] Comment on above: Performed By: #### H DEB, CMP #### [facility] [address] [place] [address] Dr. Judd Andrade UR MICRO IND INDICATED Normal [facility] Comment on above: Performed By: #### H DEB, CMP #### [facility] [address] [place] [address] Dr. Judd Andrade Urobilinogen Qn (U) 0.2 {Carol'U}/dL Normal 0.2 - 1. 0 [facility] Comment on above: Performed By: #### H DEB, CMP #### [facility] [address] [place] [address] Dr. Judd Andrade URINE MICROSCOPIC ONLYon BACTERIA NONE SEEN Normal NONE SEEN [facility] Comment on above: Performed By: #### H DEB, CMP #### [facility] [address] [place] [address] Dr. Judd Andrade Bacteria identified Cx Nom (U) NOT INDICATED Normal [facility] Comment on above: Performed By: #### H EDB, CMP #### [facility] [address] [place], [place] [id number] Dr. Judd Andrade CAST NONE SEEN Normal NONE SEEN [facility] Comment on above: Performed By: #### H STROPN, CMP #### [facility] [address] [place] [address] Dr. Judd Andrade Crystals LM Nom (Urine sed) NONE SEEN Normal NONE SEEN [facility] Comment on above: Performed By: #### H STROPN, CMP #### [facility] [address] [place] [address] Dr. Judd Andrade Epithelial cells LM Ql (Urine sed) FEW Abnormal NONE SEEN /RARE [facility] Comment on above: Performed By: #### H STROPN, CMP #### [facility] [address] [place] [address] Dr. Judd Andrade MUCOUS NONE SEEN Normal NONE SEEN [facility] Comment on above: Performed By: #### H STROPN, CMP #### [facility] [address] [place] [address] Dr. Judd Andrade RBC 0-2 Normal 0-2 [facility] Comment on above: Performed By: #### H STROPN, CMP #### [facility] [address] [place] [address] Dr. Judd Andrade WBC NONE SEEN Normal NONE SEEN [facility] Comment on above: Performed By: #### H STROPN, CMP #### [facility] [address] [place] [address] Dr. Judd Andrade Vital Signs Date Time Vital Sign Value Performing Clinician Facility 01-20-2024 12:02-040 Body mass index (BMI) [Ratio] 28.34 kg/m2 Flo Water Work Phone: [facility] 01-20-2024 12:02-399 Body weight 72.58 kg Flo Water Work Phone: [facility] 01-20-2024 12:02-040 Diastolic blood pressure 80 mm[Hg] Flo Water Work Phone: [facility] 01-20-2024 12:02-0400 Systolic blood pressure 160 mm[Hg] Katie Yocasta DO Work Phone: [facility] 01-03-2024 13:11-0400 Body mass index (BMI) [Ratio] 28.17 kg/m2 Katie Yocasta DO Work Phone: [facility] 01-03-2024 13:11-0400 Body weight 72.12 kg Katie Yocasta DO Work Phone: [facility] 01-03-2024 13:11-0400 Diastolic blood pressure 70 mm[Hg] Katie Yocasta DO Work Phone: [facility] 01-03-2024 13:11-0400 Systolic blood pressure 120 mm[Hg] Katie Yocasta DO Work Phone: [facility] 12-30-2023 13:48-0400 Blood Pressure Location Bessie Galea [facility] 12-30-2023 13:48-0400 Diastolic blood pressure 82 mm[Hg] Bessie Galea [facility] 12-30-2023 13:48-0400 Heart rate 80 /min Bessie Galea [facility] 12-30-2023 13:48-0400 Respiratory rate 16 /min Bessie Galea [facility] 12-30-2023 13:48-0400 Systolic blood pressure 117 mm[Hg] Bessie Galea [facility] 12-21-2023 11:47-0400 Body mass index (BMI) [Ratio] 27.99 kg/m2 Radha KAY Work Phone: [facility] 12-21-2023 11:47-0400 Body weight 71.67 kg Radha KAY Work Phone: [facility] 12-21-2023 11:47-0400 Diastolic blood pressure 78 mm[Hg] Radha KAY Work Phone: [facility] 12-21-2023 11:47-0400 Systolic blood pressure 118 mm[Hg] Radha KAY Work Phone: [facility] Encounters Encounter Date Encounter Type Care Provider Facility Start: 05-22-2024 End: 05-22-2024 ambulatory [facility] Start: 05-08-2024 End: 05-08-2024 ambulatory [facility] Start: 01-20-2024 End: 01-20-2024 Bamboo flowsheet Katie Yocasta DO Work Phone: [facility] Start: 01-20-2024 End: 01-20-2024 Bamboo flowsheet Katie Yocasta DO Work Phone: [facility] Start: 01-20-2024 End: 01-20-2024 Postop follow up visit related to original px Katie Yocasta DO Work Phone: [facility] Comment on above: Postoperative visit; S/P D&C (status post dilation and curettage) Start: 01-07-2024 End: 01-07-2024 Clinisync Result Encounter Katie Yocasta DO Work Phone: [facility] External Department Unsolicited Start: 01-07-2024 End: 01-07-2024 Clinisync Result Encounter Katie Yocasta DO Work Phone: [facility] External Department Unsolicited Start: 01-07-2024 End: 01-07-2024 ambulatory MD John Porter Work Phone: [facility] Work Phone: Start: 01-07-2024 End: 01-07-2024 Departed Referred MD John Porter Work Phone: [facility] Start: [...] examination done Katie Yocasta DO Work Phone: [facility] Start: 01-03-2024 End: 01-03-2024 ambulatory KATIE YOCASTA Not Available Start: 12-30-2023 End: 12-30-2023 ambulatory Bessie Gong Facility:[facility] Start: 12-30-2023 End: 12-30-2023 Patient encounter procedure Bessie Gong [facility] Start: 12-29-2023 End: 12-29-2023 Phys/qhp telephone evaluation 5-10 min Katie Yocasta DO Work Phone: [facility] Comment on above: Urinary tract infect ion without hematuria, site unspecified; Vulvar irritation Start: 12-21-2023 End: 12-21-2023 Bamboo flowsheet Radha KAY Work Phone: [facility] Start: 12-21-2023 End: 12-22-2023 Bamboo flowsheet Radha KAY Work Phone: [facility] Start: 12-21-2023 End: 12-22-2023 External Result Encounter Radha KAY Work Phone: [facility] External Department Unsolicited Start: 12-21-2023 End: [...] response examination DR JOHN PORTER . [facility] Start: 06-26-2022 End: 06-27-[address] [...] PM EDT Office Visit [facility] [address] [place], [place] [address] [address] Katie Rust, DO [address] [place] [address] [facility] Start: 01-07-2024 End: 01-07-2024 Patient encounter procedure 01/07/2024 9:00 AM EDT Procedure Visit [facility] Katie Rust, DO [address] [place] [address] [facility] Start: 01-03-2024 End: 01-03-2024 Patient encounter procedure [facility] Comment on above: Arrived Start: 12-29-2023 End: 12-29-2023 Patient encounter procedure [facility] CHLAMYDIA TRACHOMATI S (GENITO/STI) CHLAMYDIA TRACHOMATIS (GENITO/STI) Lab Routine Vaginal burning Vaginal itching Ordered: 12/21/2023 [facility] Comment on above: Ordered: 12/21/2023 Neisseria gonorrhoea e DNA [Presence] in Unspecified specimen by JOLLY with probe detection Neisseria gonorrhea DNA probe, direct Lab Routine Vaginal burning Vaginal itching Ordered: 12/21/2023 [facility] Comment on above: Ordered: 12/21/2023 SURESWAB(R) ADVANCED VAGINITIS PLUS, TMA SURESWAB(R) ADVANCED VAGINITIS PLUS, TMA Pathology and Cytology Routine Vaginal burning Vaginal itching Ordered: 12/21/2023 [facility] Work Phone: Comment on above: Ordered: 12/21/2023 Immunizations Immunization Date Immunization Notes Care Provider Fa cili 10-05-2022 tetanus toxoid, redu heide diphtheria toxoid, and acellular pertussis vaccine, adsorbed Bessie Galea [facility] Payers Date Payer Category Payer Self-pay [id number] 2023 Unknown [id number] 2020 Unknown FRONTPATH FRONTP ATH [id number] 2020-Present [phone] [address] [place] [address] [id number] .[id number] 1965 Unknown [id number] 2.16.840.1.568715.3.579.2.593 1965 Unknown [id number] 2.16.840.1.692778.3.579.2.593 1965 Unknown [id number] 2.16.840.1.863978.3.579.2.593 1965 Unknown [id number] 2.16.840.1.502865.3.579.2.593 1965 Unknown [id number] 2.16.840.1.170680.3.579.2.593 1965 Unknown [id number] 2.16.840.1.206494.3.579.2.593 1965 Unknown [id number] 2.16.840.1.948074.3.579.2.593 1965 Unknown [id number] 2.16.840.1.891460.3.579.2.593 1965 Unknown [id number] 2.16.840.1.679005.3.579.2.593 1965 Unknown [id number] 2.16.840.1.542886.3.579.2.593 1965 Unknown [id number] 2.16.840.1.715054.3.579.2.593 1965 Unknown [id number] 2.16.840.1.645328.3.579.2.593 1965 Unknown [id number] 2.16.840.1.237159.3.579.2.593 1965 Unknown [id number] 2.16.840.1.231378.3.579.2.593 1965 Unknown [id number] 2.16.840.1.159116.3.579.2.593 1965 Unknown [id number] 2.16.840.1.972915.3.579.2.593 1965 Unknown [id number] 2.16.840.1.149096.3.579.2.593 1965 Unknown [id number] 2.16.840.1.130835.3.579.2.593 1965 Unknown [id number] 2.16.840.1.906857.3.579.2.593 1965 Unknown [id number] 2.16.840.1.207968.3.579.2.593 1965 Unknown [id number] 2.16.840.1.588701.3.579.2.593 1965 Unknown [id number] 2.16.840.1.620177.3.579.2.593 1965 Unknown [id number] 2.16.840.1.305042.3.579.2.593 1965 Unknown [id number] 2.16.840.1.045633.3.579.2.593 1965 Unknown [id number] 2.16.840.1.762947.3.579.2.125 9 1965 Unknown [id number] 2.16.840.1.206517.3.579.2.125 9 1965 Unknown [id number] 2.16.840.1.468738.3.579.2.125 9 1965 Unknown [id number] 2.16.840.1.457405.3.579.2.125 9 1965 Unknown [id number] 2.16.840.1.634846.3.579.2.125 9 1965 Unknown [id number] 2.16.840.1.136808.3.579.2.125 9 1965 Unknown [id number] 2.16.840.1.765745.3.579.2.727 1965 Unknown [id number] 2.16.840.1.994529.3.579.2.128 6 1965 Unknown [id number] 2.16.840.1.786075.3.579.2.128 6 1959 Self-pay [id number] 1959 Unknown [id number] 1959 Unknown [id number] Unknown [id number] 2.16.840.1.395013.3.579.2.531 Social History Date Type Detail Facility Start: 12-30-2022 End: 12-30-2023 Tobacco smoking status Ex-smoker (finding) [facility] Tobacco smoking status Never [facility] Start: 11-05-2022 End: 12-21-2023 Sex Assigned At Female [facility] Start: 09-05-2013 Tobacco smoking stat us NHIS Never smoked tobacco (finding) [facility] Start: 1965 Sex Assigned At Female [facility] History of tobacco use Current smoker [facility] [...] 12-30-2023 Functional Status N/A [facility] Clinical Notes 12-21-2023 to 01-20-2024 Deepti Palacios [...] nursing note reviewed. Exam conducted with a manager of data present. Vitals: Estimated body mass index is [...] Katie Rust DO documented in this encounter [facility] 01-03-2024 History of Presen t illness [...] Fibrocystic breast changes 10/28/2022 Generalized anxiety disorder ([facility]/HCC) 03/28/2019 Intermittent vertigo 04/26/2004 Irritable bowel syndrome 08/14/2013 Major depressive disorder, single episode, moderate (HCC) ([facility]/HCC) 03/28/2019 Meniere's disease 08/14/2013 Menopausal symptoms 11/17/2016 Menorrhagia 10/28/2022 Other specified hearing loss, right ear 02/25/2016 Pressure in head 04/26/2015 Psychological factors affecting medical condition 11/17/2016 Shoulder joint pain 10/28/2022 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 Exam conducted with a manager of data present. Vitals: Estimated body mass index is [...] reviewed, and patient is to proceed to [facility]. Follow Up: Patient is to follow up between 1-2 weeks post operative to assess proper healing and recovery from procedure. Documented by Deepti Palacios LPN on behalf of: Katie Rust DO documented in this encounter [facility] 12-30-2023 Hospital Discharg e instructions Patient [...] provider. Document Revised: 08/21/2021 Document Reviewed: 08/21/2021 [employer] Patient Education 2023 [place]. Follow Up Care 12/02/2023 13:46:26 With:Bessie Quiñones, URL Address: When: Unknown Comments:pending imaging and after PFPT [facility] 12-30-2023 Note Patient Education Obstetrics and Gynecology [...] provider. Document Revised: 08/21/2021 Document Reviewed: 08/21/2021 [employer] Patient Education ? 2023 [place]. [facility] 12-29-2023 History of Presen t illness Narrative Reason for Appointment: Patient ID: Yulia Dorsey is a 58 y.o. female who presents for Telehealth, UTI, and kidney stone Patient presents today via telephone call for a telehealth appointment. Patients Phone #: [phone] (mobile) Current Medications: has a current medication list which includes the following prescription(s): vitamin c, calcium carbonate, tdwanca-cvgancpod-vdip, airborne elderberry, and multivitamin. Medical History: Active Ambulatory Problems Diagnosis Date Noted GERD (gastroesophageal reflux disease) 08/14/2013 Acute pelvic pain 10/28/2022 Anxiety state ([facility]) 08/14/2013 Bilateral tinnitus 10/28/2022 Cervical disc disorder 08/14/2013 Fibrocystic breast changes 10/28/2022 Generalized anxiety disorder ([facility]) 03/28/2019 Intermittent vertigo 04/26/2004 Irritable bowel syndrome 08/14/2013 Major depressive disorder, single episode, moderate (HCC) ([facility]) 03/28/2019 Meniere's disease 08/14/2013 Menopausal symptoms 11/17/2016 [...] Katie Rust DO documented in this encounter [facility] 12-21-2023 History of Presen t illness [...] 08/14/2013 Acute pelvic pain 10/28/2022 Anxiety state ([facility]) 08/14/2013 Bilateral tinnitus 10/28/2022 Cervical disc disorder 08/14/2013 Fibrocystic breast changes 10/28/2022 Generalized anxiety disorder (CMS/HCC) 03/28/2019 Intermittent vertigo 04/26/2004 Irritable bowel syndrome 08/14/2013 Major depressive disorder, single episode, moderate (HCC) ([facility]) 03/28/2019 Meniere's disease 08/14/2013 Menopausal symptoms 11/17/2016 [...] of: ELIZA Mccollum documented in this encounter [facility] Healthcare Evaluation + Plan note No data available for this section [facility] Evaluation note No assessment inform ation available [facility] Work Phone: Evaluation note Diagnosis Vaginal burning Other specified symptom associated with female genital organs Vaginal itching Pruritus of genital organs documented in this encounter [facility] Diagnosis Urinary tract infection without hematuria, site unspecified Vulvar irritation documented in this encounter [facility] HealthcareEvaluation note* Diagnosis Pre-op examination Yeast infection Thickened endometrium Nonspecific (abnormal) findings on radiological and other examination of genitourinary organs Pelvic pain documented in this encounter [facility] Diagnosis Postoperative visit S/P D&C (status post dilation and curettage) Other postprocedural status documented in this encounter [facility] No data available for this section [facility] Summary Purpose Family History No [...] and content) DATE CREATED AUTHOR 10/02/2022 [facility] DATE CREATED AUTHOR AUTHOR'S ORGANIZ ATION 01/04/2024 [facility] EPIC DATE CREATED AUTHOR AUTHOR'S ORGANIZ ATION 01/09/2024 [facility] DATE CREATED AUTHOR AUTHOR'S ORGANIZ ATION 01/14/2024 [facility] DATE CREATED AUTHOR AUTHOR'S ORGANIZ ATION 05/24/2024 [facility] Patient Care team informatio n (unrecognized section and content) Team Status: Active Member Role Status Dates John Porter MD Primary Care Provider Active Team Status: Inactive Member Role Status Dates John Porter MD Primary Care Provider Active Start: January 07, 2024 End: January 07, 2024 Katie Rust DO Attending Provider Active Start : January 07, 2024 End: January 07, 2024 Inspection Clerk Relationship Specialty Start Date End Date John Porter MD [address] [place] [address] PCP - General 09/13/22 Inspection Clerk Relationship Specialty Start Date End Date John Porter MD [address] [place] [address] PCP - General 09/13/22 Inspection Clerk Relationship Specialty Start Date End Date John Porter MD [address] [place] [address] PCP - General 09/13/22 Inspection Clerk Relationship Specialty Start Date End Date John Porter MD [address] [place] [address] PCP - General 09/13/22 Inspection Clerk Relationship Specialty Start Date End Date John Porter MD [address] [place] [address] PCP - General 09/13/22 Inspection Clerk Relationship Specialty Start Date End Date John Porter MD [address] [place] [address] PCP - General 09/13/22 Inspection Clerk Relationship Specialty Start Date End Date John Porter MD [address] [place] [address] PCP - General 09/13/22 Goals (unrecognized section [...] BE BASED ON THE PRIMARY CLINICAL RECORDS. [facility] [employer] [facility] provides no warranty or guarantee of the accuracy or completeness of information in this document.
--- NOTE | 2024-05-30 16:02 | CT_ITS ---
The [address] [address] Patient Name: YULIA CASTANO MRN: [id number] date: 1965 Sex: F Assigned Patient Location: CT Current Patient Location: Accession/Order Number: [id number] Exam Date: 05/30/2024 15:59 Report Date: 05/31/2024 12:04 At the request of: JOHN WHITE Procedure: CT soft tissue neck wo con EXAMINATION: CT soft tissue neck wo con HISTORY: Neck Mass ; lump posterior to the ear COMPARISON: No relevant comparison available. TECHNIQUE: Axial, Coronal, and Sagittal CT images created without IV contrast. Dose reduction techniques were achieved by using automated exposure control and/or adjustment of mA and/or kV according to patient size and/or use of iterative reconstruction technique. FINDINGS: NASOPHARYNX: No asymmetry of the fossae of Rosenmuller and torus tubarius. ORAL CAVITY: No visible mass. OROPHARYNX: No asymmetry of the facial and lingual tonsils. HYPOPHARYNX: No mass or other visible lesion. LARYNX: No mass or asymmetry of the vocal cords. SINUSES: No significant fluid or mucosal thickening. NECK GLADS: No visible abnormality of the parotid, submandibular, and thyroid glands. LYMPH NODES: No pathological-appearing or enlarged lymph nodes. VASCULATURE: No suspicious abnormality. BONES: No significant osseous lesions. OTHER: A skin surface marker localizing the patient's palpable lump is present over the posterior left lateral upper neck just below the skull base. No underlying abnormality. CT/CT soft tissue neck wo con IMPRESSION: 1. No mass, lymph nodes, fluid collection, skin thickening, or inflammatory changes to account for patient's palpable lump. Unremarkable neck. Electronically authenticated by: MAGED LEE Date: 05/31/2024 12:04
== END 2024-05-30 15:40 | disposition home or self-care (01) ==
LOC: CT 15:39
PROVIDERS: PCP Family Medicine; Visit Provider Family Medicine
DX: Z12.31 Encounter for screening mammogram for malignant neoplasm of breast (principal); R22.1 Localized swelling, mass and lump, neck
CPT/HCPCS: 70490; 77063; 77067

== ENCOUNTER 2024-05-30 15:40 | Outpatient (OUT) | payer OTHER, SELFPAY ==
--- OUTSIDE RECORDS SUMMARY | 2024-05-30 15:46 | XMS_ITS | CCD ---
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 Name Role Phone GERMAN ., DR LOPEZ [...] Unavailable YOCASTA ., DR WILSON Attending Unavailable [place], DR ELLYN Dougherty Consulting Unavailable HOY ., DR LOPEZ Primary Care Unavailable YOCASTA ., DR WILSON Consulting Unavailable HOY ., DR LPOEZ Primary Care Unavailable DEMETRA, DR IRIS Chavez [...] Unavailable German John Primary Care Physician [phone] VALE HI Attending Unavailable RALF RENDON Referring Unavailable YOCASTA, KATIE Attending Unavailable YOCASTA, KATIE Attending Unavailable YOCASTA, KATIE Attending Unavailable RADHA TINSLEY Attending Unavailable YOCASTA, KATIE Attending Unavailable MD John Porter Primary Care Provider [phone] Katie Rust Attending Provider [phone] Bessie Gong Attending Unavailable John Porter Primary Care Unavailable Yocasta, Katie Attending Unavailable Yocasta, Katie Admitting Unavailable John Porter MD Primary Care Provider [phone] IRIS GABRIEL Attending Unavailable ABELINOY, JOHN M Referring Unavailable HOY, JOHN M Primary Care Unavailable IRIS GABRIEL Attending Unavailable HOY, JOHN M Referring Unavailable HOY, JOHN M Primary Care Unavailable Allergies Allergy Classification Reported Allergen(s) Allergy Type Date of Onset Reaction(s) Facility (1 source) Azithromycin Drug Allergy 12-21-19 22 [facility] Repository (4 sources) Imipramine; Translations: [IMIPRAMINE] Drug Allergy 10-06-19 13 [facility] Repository (2 sources) Sulfonamides (Antibiotic) Drug allergy (disorder) 10-06-19 13 [facility] Repository (2 sources) E.E.S. Drug allergy (disorder) 10-06-19 13 [facility] Repository (16 sources) Erythromycin; Translations: [erythromycin] Drug Allergy 02-25-20 16 Unknown (qualifier value), Other [facility] (15 sources) Imipramine; Translations: [imipramine] Drug Allergy 02-25-20 16 Unknown (qualifier value), Other [facility] (2 sources) Sulfonamides (Antibiotic); Translations: [sulfa drugs] Drug allergy Unknown (qualifier value) [facility] (3 sources) Sulfonamides (Antibiotic); Translations: [Sulfa (Sulfonamide Antibiotics)] Allergy to substance 09-12-19 [facility] (15 sources) erythromycin base; Translations: [erythromycin base] Allergy to substance 12-02-19 [facility] (1 source) Imipramine Drug Allergy 12-02-19 [facility] Repository (13 sources) Sulfonamides (Antibiotic) Drug Intolerance 02-25-20 [facility] (2 sources) Ciprofloxacin Drug Allergy 01-20-20 [facility] Medications Current Medications Medication Drug Class(es) [...] 01-03-2024 Episodic Other aftercare (4 sources) 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; Translations: [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] Onset: 12-23-2021 Episodic Other [...] WITH AUTO DIFFon BASOPHILS ABSOLUTE AUTO 0.0 [facility] Basophils/100 WBC (Bld) 0.8 % 0.2 - 2.0 % [facility] Eosinophils/100 WBC (Bld) 1.9 % 0.9 - 7.0 % [facility] Erythrocyte distribution width (RBC) [Ratio] 13.4 % 11.0 - 15.0 % [facility] Hematocrit (Bld) [Volume fraction] 43.1 % 36.0 - 48.0 % [facility] Hemoglobin (Bld) [Mass/Vol] 13.9 g/dL 12.0 - 16.0 g/dL [facility] IMMATURE GRANULOCYTES ABS AUTO 0.01 [facility] Immature granulocytes/100 WBC (Bld) 0.2 % 0.0 - 0.5 % [facility] LYMPHOCYTES ABSOLUTE AUTO 1.7 [facility] Lymphocytes/100 WBC (Bld) 32.9 % 20.5 - 60.0 % [facility] MCH (RBC) [Entitic mass] 28.8 pg 26.7 - 34.0 pg [facility] MCHC (RBC) [Mass/Vol] 32.3 g/dL 29.9 - 35.2 g/dL [facility] MCV (RBC) [Entitic vol] 89.2 fL 81.0 - 99.0 fL [facility] MONOCYTES ABSOLUTE AUTO 0.5 [facility] Monocytes/100 WBC (Bld) 9.6 % 1.7 - 12.0 % [facility] NEUTROPHILS ABSOLUTE AUTO 2.8 [facility] Neutrophils/100 WBC (Bld) 54.6 % 43.0 - 75.0 % [facility] Platelet mean volume (Bld) [Entitic vol] 9.7 fL 9.5 - 13.5 fL [facility] EO # 0.1 [facility] PLT 291 [facility] RBC 4.83 [facility] WBC 5.1 [facility] [place] 01-07-2024 L Specimen: [id number] Received: 01/07/24 Status: LAWSON Guzman Num: [id number] Spec Type: Surgical Subm Dr: Katie Rust Tissues: A Endometrial Polyp (ENOMETRIAL POLYP AND CURETTI) Procedures: HE/2, Gross/Micro L4 Age/ Patient Sex Location Account Attending Physician Yulia Dorsey 58/F LABELL [id number] Katie Rust SPEC NUM: [id number] RECD: 01/07/24 STATUS: LAWSON MCNEILLAmee NUM: [id number] TIMOTHY: 01/07/[address]: Katie Rust ENTERED: 01/07/24-[address] [facility] [address]: Cristhian,Lab SPEC TYPE: Surgical DEPT: BIANCA VANN ENTERED BY: [id number] RECV BY: [id number] ORDERED: HE/2, Gross/Micro L4 ORDERED: HE/2, Gross/Micro [...] is entirely submitted cassette A1. CPT Codes 02986 -------- -------- Specimen: [id number] Received: 01/07/24 Status: LAWSON Mcneillamee Num: [id number] Spec Type: Surgical Subm Dr: Katie Rust Tissues: A Endometrial Polyp (ENOMETRIAL POLYP AND CURETTI) Procedures: HE/2, Gross/Micro L4 -------- Patient: Gen Willianrenee Arrieta [id number] (Continued) -------- Signed (signature on file) Tammie Mcclellan MD 01/13/24 1606 [facility] [place] Physician [facility] Patient Letter FTon 2023 Patient Letter [facility] Patient Letter [facility] January 07, 2024 YULIA DORSEY [address] [place] [address] : 1965 Dear Yulia Dorsey, We have been trying to reach you with no success. It is important that you return our call upon receiving this letter. Also, at the time of your call, please provide us with your current information. Thank you for your prompt attention to this matter. Sincerely, [facility] [address] [place] [address] [facility] Ambulatory Visit Summaryon 0 12-30-2023 Ambulatory [...] you for choosing us for your care. [facility] Provider Letteron 12-30-2023 Provider Letter Provider Letter December 30, 2023 YULIA DORSEY [address] [place], [place] [address] [address] : 1965 To Whom It May Concern, Please excuse above patient from work. 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 Kidney stones (N20.0: Calculus of kidney) [...] now. -K (more content not included)... Normal [facility] Comment on above: Result Comment: Elec tronically Signed By: Farideh BARRERA, Bessie Modi\.br\Date and Time Signed: 12/30/23 15:22 EDT URETHRITIS/DISCHARGE PLUS VA GINITIS (HTRX)on 12-22-2023 ATOPOBIUM VAGINAE 0.000 [facility] ATOPOBIUM VAGINAE Not detected [facility] BVAB 2,3 (BACTERIAL VAGINOSIS ASSOCIATED BACTERIA 2, 3); MOBILUNCUS SPP 0.000 [facility] BVAB 2,3 (BACTERIAL VAGINOSIS ASSOCIATED BACTERIA [...] 0.000 [facility] TRICHOMONAS VAGINALIS Not detected [facility] MG MAMM DX 3D RT CADon 09-22 MG MAMM DX 3D RT CAD Patient: YULIA DORSEY Exam Date: 09/22/2022 : 1965 Gender:F Ordering : DR KATIE RUST . Admission #: [id number] Family : Order #: [id number] CLICK HERE TO VIEW EXAM RADIOLOGY REPORT [...] breast cancer at age 40. LOCATION: [facility] BREAST COMPOSITION: Almost entirely fatty. FINDINGS: [...] Castaneda MD on 09/22/2022 at 15:03 Normal [facility] US BREAST RIGHT LIMITEDon US BREAST RIGHT LIMITED Patient: YULIA DORSEY Exam Date: 09/22/2022 : 1965 Gender:F Ordering : DR KATIE RUST . Admission #: [id number] Family : Order #: [id number] CLICK HERE TO VIEW EXAM RADIOLOGY REPORT [...] breast cancer at age 40. LOCATION: [facility] BREAST COMPOSITION: Almost entirely fatty. FINDINGS: [...] Castaneda MD on 09/22/2022 at 15:03 Normal [facility] US ST HEAD_NECKon 05-08-[address] HEAD_NECK [...] by: GABO STRONG Date: 2022-08-31 08:09 Normal [facility] US PELVIS AND TRANSVAGon US PELVIS [...] GABO STRONG Date: 2022-07-29 06:32 Normal [facility] INSULINon 07-04-2022 Insulin 6.2 uIU/mL Normal 2.6-24.9 [facility] Comment on above: Performed By: #### H STRONETO, CMP #### [facility] [address] [place] [address] Dr. Judd Andrade CBC AUTO DIFFon 07-03-2022 BASO # 0.0 103/ul Normal 0.0-0.1 [facility] Comment on above: Performed By: #### C BC #### [facility] [address] [place] [address] Dr. Judd Andrade Basophils/100 WBC (Bld) 1.1 % Normal 0.2-2.0 [facility] Comment on above: Performed By: #### C BC #### [facility] [address] [place] [address] Dr. Judd Andrade EO # 0.1 103/ul Normal 0.0-0.7 [facility] Comment on above: Performed By: #### C BC #### [facility] [address] [place] [address] Dr. Judd Andrade Eosinophils/100 WBC (Bld) 3.6 % Normal 0.9-7.0 [facility] Comment on above: Performed By: #### C BC #### [facility] [address] [place] [address] Dr. Judd Andrade Erythrocyte distribution width (RBC) [Ratio] 13.6 % Normal 11.0-15.0 [facility] Comment on above: Performed By: #### C BC #### [facility] [address] [place] [address] Dr. Judd Andrade Hematocrit (Bld) [Volume fraction] 41.8 % Normal 36.0-48.0 [facility] Comment on above: Performed By: #### C BC #### [facility] [address] [place] [address] Dr. Judd Andrade Hemoglobin (Bld) [Mass/Vol] 13.5 g/dL Normal 12.0-16.0 [facility] Comment on above: Performed By: #### C BC #### [facility] [address] [place] [address] Dr. Judd Andrade IG # 0.01 10e3/ul Normal 0.00-0.03 [facility] Comment on above: Performed By: #### C BC #### [facility] [address] [place] [address] Dr. Judd Andrade IG % 0.3 % Normal 0.0-0.5 [facility] Comment on above: Performed By: #### C BC #### [facility] [address] [place] [address] Dr. Judd Andrade LYMPH # 1.4 103/ul Normal 1.2-3.8 [facility] Comment on above: Performed By: #### C BC #### [facility] [address] [place] [address] Dr. Judd Andrade Lymphocytes/100 WBC (Bld) 38.4 % Normal 20.5-60.0 [facility] Comment on above: Performed By: #### C BC #### [facility] [address] [place] [address] Dr. Judd Andrade MANUAL DIFF REQ NO Normal [facility] Comment on above: Performed By: #### C BC #### [facility] [address] [place] [address] Dr. Judd Andrade MCH (RBC) [Entitic mass] 28.2 pg Normal 26.7-34.0 [facility] Comment on above: Performed By: #### C BC #### [facility] [address] [place] [address] Dr. Judd Andrade MCHC (RBC) [Mass/Vol] 32.3 g/dL Normal 29.9-35.2 [facility] Comment on above: Performed By: #### C BC #### [facility] [address] [place] [address] Dr. Judd Andrade MCV (RBC) [Entitic vol] 87.4 fL Normal 81.0-99.0 [facility] Comment on above: Performed By: #### C BC #### [facility] [address] [place] [address] Dr. Judd Andrade MONO # 0.4 103/ul Normal 0.3-0.8 [facility] Comment on above: Performed By: #### C BC #### [facility] [address] [place] [address] Dr. Judd Andrade Monocytes/100 WBC (Bld) 10.4 % Normal 1.7-12.0 [facility] Comment on above: Performed By: #### C BC #### [facility] [address] [place] [address] Dr. Judd Andrade NEUT # 1.7 103/ul Normal 1.4-6.5 [facility] Comment on above: Performed By: #### C BC #### [facility] [address] [address] [address] Judd Andrade Neutrophils/100 WBC (Bld) 46.2 % Normal 43.0-75.0 [facility] Comment on above: Performed By: #### C BC #### [facility] [address] [place] [address] Dr. Judd Andrade Platelet mean volume (Bld) [Entitic vol] 9.6 fL Normal 9.5-13.5 [facility] Comment on above: Performed By: #### C BC #### [facility] [address] [place] [address] Dr. Judd Andrade PLT 246 103/ul Normal 150-450 [facility] Comment on above: Performed By: #### C BC #### [facility] [address] [place] [address] Dr. Judd Andrade RBC 4.78 106/ul Normal 4.20-5.40 [facility] Comment on above: Performed By: #### C BC #### [facility] [address] [place] [address] Dr. Judd Andrade WBC 3.7 103/ul Critically low 4.0-11.0 [facility] Comment on above: Performed By: #### C BC #### [facility] [address] [place] [address] Dr. Judd Andrade FREE THYROXINE INDEX T7on 0 07-03-2022 FTI 3.20 Normal 1.30-4.50 [facility] Comment on above: Performed By: #### T 7, LIPID, TSH, CMP #### [facility] [address] [place] [address] Dr. Judd Andrade T3U 36.0 % Normal 30.0-39.0 [facility] Comment on above: Performed By: #### T 7, LIPID, TSH, CMP #### [facility] [address] [address] [address] Judd Andrade T4 [Mass/Vol] 8.90 ug/dL Normal 4.80-13.90 [facility] Comment on above: Performed By: #### T 7, LIPID, TSH, CMP #### [facility] [address] [address] [address] Judd Andrade GLYCOHEMOGLOBIN A1Con 2022 ADA RECOMMENDATION SEE BELOW Normal [facility] Comment on above: Result Comment: ADA RECOMMENDED LIMIT 4.0 - 6.0 ADA THERAPEUTIC TARGET < 7.0 ACTION SUGGESTED > 7.0 Performed By: #### C BC #### [facility] [address] [place] [address] Dr. Judd Andrade Glucose [Mass/Vol] 120 mg/dL Normal [facility] Comment on above: Performed By: #### C BC #### [facility] [address] [address] [address] Judd Andrade HbA1c (Bld) [Mass fraction] 5.8 % Normal 4.5-6.2 [facility] Comment on above: Performed By: #### C BC #### [facility] [address] [place] [address] Dr. Judd Andrade IRONon 07-03-2022 Iron [Mass/Vol] 67.0 ug/dL Normal 50.0-170.0 [facility] Comment on above: Performed By: #### V ITAD, IRON #### [facility] [address] [address] [address] Judd Andrade LIPID PROFILEon 07-03-2022 CHOL-HDL RATIO NORM SEE BELOW Normal [facility] Comment on above: Result Comment: 3.3 - 4.4 LOW RISK 4.4 - 7.1 AVERAGE RISK 7.1 - 11.0 MODERATE RISK >11.0 HIGH RISK Performed By: #### T 7, LIPID, TSH, CMP #### [facility] [address] [place] [address] Dr. Judd Andrade Cholesterol [Mass/Vol] 216 mg/dL Critically high <=200 [facility] Comment on above: Performed By: #### T 7, LIPID, TSH, CMP #### [facility] [address] [address] [address] Judd Andrade Cholesterol in HDL [Mass/Vol] 87 mg/dL Critically high 40-60 [facility] Comment on above: Performed By: #### T 7, LIPID, TSH, CMP #### [facility] [address] [address] [address] Judd Andrade Cholesterol in LDL [Mass/Vol] 124.2 mg/dL Normal [facility] Comment on above: Performed By: #### T 7, LIPID, TSH, CMP #### [facility] [address] [place] [address] Dr. Judd Andrade Cholesterol.total/C holesterol in HDL [Mass ratio] 2.5 {ratio} Normal [facility] Comment on above: Performed By: #### T 7, LIPID, TSH, CMP #### [facility] [address] [place] [address] Dr. Judd Andrade HDL NORMAL > or = 60 mg/dl - LO W CARDIOVASCULAR RISK <40 mg/dl - HIGH CARDIOVASCULAR RISK Normal [facility] Comment on above: Performed By: #### T 7, LIPID, TSH, CMP #### [facility] [address] [place] [address] Dr. Judd Andrade LDL CALC NORMAL SEE BELOW Normal [facility] Comment on above: Result Comment: <100 mg/dl OPTIMAL 100 - 129 mg/dl NEAR OR ABOVE OPTIMAL 130 - 159 mg/dl BORDERLINE HIGH 160 - 189 mg/dl HIGH >190 mg/dl VERY HIGH Performed By: #### T 7, LIPID, TSH, CMP #### [facility] [address] [place] [address] Dr. Judd Andrade Triglyceride [Mass/Vol] 24 mg/dL Normal <=150 [facility] Comment on above: Performed By: #### T 7, LIPID, TSH, CMP #### [facility] [address] [place] [address] Dr. Judd Andrade VLDL CALC 4.8 mg/dL Normal [facility] Comment on above: Performed By: #### T 7, LIPID, TSH, CMP #### [facility] [address] [address] [address] Judd Andrade PROF 14(COMP METB)on 023 Albumin [Mass/Vol] 4.0 g/dL Normal 3.4-5.0 [facility] Comment on above: Performed By: #### T 7, LIPID, TSH, CMP #### [facility] [address] [place] [address] Dr. Judd Andrade Albumin/Globulin [Mass ratio] 1.1 {ratio} Normal [facility] Comment on above: Performed By: #### T 7, LIPID, TSH, CMP #### [facility] [address] [place] [address] Dr. Judd Andrade ALP [Catalytic activity/Vol] 78 U/L Normal 46-116 [facility] Comment on above: Performed By: #### T 7, LIPID, TSH, CMP #### [facility] [address] [place] [address] Dr. Judd Andrade ALT [Catalytic activity/Vol] 29 U/L Normal 14-59 [facility] Comment on above: Performed By: #### T 7, LIPID, TSH, CMP #### [facility] [address] [address] [address] Judd Andrade Anion gap [Moles/Vol] 5.6 mmol/L Normal [facility] Comment on above: Performed By: #### T 7, LIPID, TSH, CMP #### [facility] [address] [address] [address] Judd Andrade AST [Catalytic activity/Vol] 23 U/L Normal 15-37 [facility] Comment on above: Performed By: #### T 7, LIPID, TSH, CMP #### [facility] [address] [place] [address] Dr. Judd Andrade Bilirubin [Mass/Vol] 0.5 mg/dL Normal 0.2-1.0 [facility] Comment on above: Performed By: #### T 7, LIPID, TSH, CMP #### [facility] [address] [address] [address] Judd Andrade Calcium [Mass/Vol] 8.9 mg/dL Normal 8.5-10.1 [facility] Comment on above: Performed By: #### T 7, LIPID, TSH, CMP #### [facility] [address] [place] [address] Dr. Judd Andrade Chloride [Moles/Vol] 105 mmol/L Normal 98-107 [facility] Comment on above: Performed By: #### T 7, LIPID, TSH, CMP #### [facility] [address] [place] [address] Dr. Judd Andrade CO2 [Moles/Vol] 32.0 mmol/L Normal 21.0-32.0 [facility] Comment on above: Performed By: #### T 7, LIPID, TSH, CMP #### [facility] [address] [place] [address] Dr. Judd Andrade Creatinine [Mass/Vol] 0.52 mg/dL Critically low 0.55-1.02 [facility] Comment on above: Performed By: #### T 7, LIPID, TSH, CMP #### [facility] [address] [place] [address] Dr. Judd Andrade EGFR-AF SOMALI >60 Normal >=60 [facility] Comment on above: Performed By: #### T 7, LIPID, TSH, CMP #### [facility] [address] [place] [address] Dr. Judd Andrade EGFR-NON AF SOMALI >60 Normal >=60 [facility] Comment on above: Performed By: #### T 7, LIPID, TSH, CMP #### [facility] [address] [place] [address] Dr. Judd Andrade Globulin (S) [Mass/Vol] 3.6 g/dL Normal [facility] Comment on above: Performed By: #### T 7, LIPID, TSH, CMP #### [facility] [address] [place] [address] Dr. Judd Andrade Glucose [Mass/Vol] 89 mg/dL Normal 74-106 [facility] Comment on above: Performed By: #### T 7, LIPID, TSH, CMP #### [facility] [address] [place] [address] Dr. Judd Andrade Potassium [Moles/Vol] 4.2 mmol/L Normal 3.5-5.1 [facility] Comment on above: Performed By: #### T 7, LIPID, TSH, CMP #### [facility] [address] [place] [address] Dr. Judd Andrade Protein [Mass/Vol] 7.6 g/dL Normal 6.4-8.2 [facility] Comment on above: Performed By: #### T 7, LIPID, TSH, CMP #### [facility] [address] [place] [address] Dr. Judd Andrade Sodium [Moles/Vol] 139 mmol/L Normal 136-145 [facility] Comment on above: Performed By: #### T 7, LIPID, TSH, CMP #### [facility] [address] [place] [address] Dr. Judd Andrade Urea nitrogen [Mass/Vol] 11.0 mg/dL Normal 7.0-18.0 [facility] Comment on above: Performed By: #### T 7, LIPID, TSH, CMP #### [facility] [address] [place] [address] Dr. Judd Andrade Urea nitrogen/Creatinine [Mass ratio] 21.2 mg/mg Normal [facility] Comment on above: Performed By: #### T 7, LIPID, TSH, CMP #### [facility] [address] [place] [address] Dr. Judd Andrade TSHon 07-03-2022 TSH 1.037 uIU/mL Normal 0.358-3.740 [facility] Comment on above: Performed By: #### T 7, LIPID, TSH, CMP #### [facility] [address] [place] [address] Dr. Judd Andrade VITAMIN D 25 OHon 07-03-2022 VIT D 25-OH 32.8 ng/mL Normal [facility] Comment on above: Performed By: #### V CARMELO, IRON #### [facility] [address] [place] [address] Dr. Judd Andrade VIT D RANGES SEE BELOW Normal [facility] [place] [facility] Comment on above: Result Comment: <20 ng/mL Vit D deficient 20 - <30 ng/mL Vit D insufficient 30 - 100 ng/mL Vit D sufficient >100 ng/mL Potential Toxicity Performed By: #### V CARMELO, IRON #### [facility] [address] [place] [address] Dr. Judd Andrade BORDETELLA PERTUSSIS AB IGGo n 06-30-2022 B pertussis IgG Ab 3.88 index Invalid Interpretation Code 0.00-0.94 [facility] [place] [facility] Comment on above: Result Comment: Clie nt Requested Flag Negative <0.95 Equivocal 0.95 - 1.04 Positive >1.04 Performed By: #### C BC #### [facility] [address] [place] [address] Dr. Judd Andrade BORDETELLA PERTUSSIS AB IGMo n 06-30-2022 B pertussis IgM Ab <1.0 Normal 0.0-0.9 [facility] Comment on above: Result Comment: Nega tive <1.0 Borderline 1.0 - 1.1 Positive >1.1 Performed By: #### H DEB, CMP #### [facility] [address] [place] [address] Dr. Judd Andrade [id number] 2022 Gtuwo-3-Pulbjtvocig , Serum 158 mg/dL Normal 101-187 [facility] [place] [facility] Comment on above: Performed By: #### C BC #### [facility] [address] [place] [address] Dr. Judd Andrade CBC AUTO DIFFon 06-03-2022 BASO # 0.0 103/ul Normal 0.0-0.1 [facility] [place] [facility] Comment on above: Performed By: #### H DEB, CMP #### [facility] [address] [place] [address] Dr. Judd Andrade Basophils/100 WBC (Bld) 0.6 % Normal 0.2-2.0 [facility] [place] [facility] Comment on above: Performed By: #### H STROPN, CMP #### [facility] [address] [place] [address] Dr. Judd Andrade EO # 0.0 103/ul Normal 0.0-0.7 [facility] [place] [facility] Comment on above: Performed By: #### H STROPN, CMP #### [facility] [address] [place] [address] Dr. Judd Andrade Eosinophils/100 WBC (Bld) 0.6 % Critically low 0.9-7.0 [facility] [place] [facility] Comment on above: Performed By: #### H STROPN, CMP #### [facility] [address] [place] [address] Dr. Judd Andrade Erythrocyte distribution width (RBC) [Ratio] 13.5 % Normal 11.0-15.0 [facility] [place] [facility] Comment on above: Performed By: #### H STROPN, CMP #### [facility] [address] [place] [address] Dr. Judd Andrade Hematocrit (Bld) [Volume fraction] 42.4 % Normal 36.0-48.0 [facility] [place] [facility] Comment on above: Performed By: #### H STROPN, CMP #### [facility] [address] [place] [address] Dr. Judd Andrade Hemoglobin (Bld) [Mass/Vol] 13.4 g/dL Normal 12.0-16.0 [facility] [place] [facility] Comment on above: Performed By: #### H STROPN, CMP #### [facility] [address] [place] [address] Dr. Judd Andrade IG # 0.01 10e3/ul Normal 0.00-0.03 [facility] [place] [facility] Comment on above: Performed By: #### H STROPN, CMP #### [facility] [address] [place] [address] Dr. Judd Andrade IG % 0.2 % Normal 0.0-0.5 [facility] [place] [facility] Comment on above: Performed By: #### H STROPN, CMP #### [facility] [address] [place] [address] Dr. Judd Andrade LYMPH # 1.1 103/ul Critically low 1.2-3.8 [facility] Comment on above: Performed By: #### H DEB, CMP #### [facility] [address] [place] [address] Dr. Judd Andrade Lymphocytes/100 WBC (Bld) 23.5 % Normal 20.5-60.0 [facility] [place] [facility] Comment on above: Performed By: #### H STROPN, CMP #### [facility] [address] [place] [address] Dr. Judd Andrade MANUAL DIFF REQ NO Normal [facility] Comment on above: Performed By: #### H TERAPN, CMP #### [facility] [address] [place] [address] Dr. Judd Andrade MCH (RBC) [Entitic mass] 28.9 pg Normal 26.7-34.0 [facility] Comment on above: Performed By: #### H DEB, CMP #### [facility] [address] [place] [address] Dr. Judd Andrade MCHC (RBC) [Mass/Vol] 31.6 g/dL Normal 29.9-35.2 [facility] Comment on above: Performed By: #### H DEB, CMP #### [facility] [address] [place] [address] Dr. Judd Andrade MCV (RBC) [Entitic vol] 91.6 fL Normal 81.0-99.0 [facility] Comment on above: Performed By: #### H TERAPN, CMP #### [facility] [address] [place] [address] Dr. Judd Andrade MONO # 0.8 103/ul Normal 0.3-0.8 [facility] Comment on above: Performed By: #### H STROPN, CMP #### [facility] [address] [place] [address] Dr. Judd Andrade Monocytes/100 WBC (Bld) 16.5 % Critically high 1.7-12.0 [facility] [place] [facility] Comment on above: Performed By: #### H STROPN, CMP #### [facility] [address] [place] [address] Dr. Judd Andrade NEUT # 2.7 103/ul Normal 1.4-6.5 [facility] [place] [facility] Comment on above: Performed By: #### H DEB, CMP #### [facility] [address] [place] [address] Dr. Judd Andrade Neutrophils/100 WBC (Bld) 58.6 % Normal 43.0-75.0 [facility] [place] [facility] Comment on above: Performed By: #### H DEB, CMP #### [facility] [address] [place] [address] Dr. Judd Andrade Platelet mean volume (Bld) [Entitic vol] 9.8 fL Normal 9.5-13.5 [facility] [place] [facility] Comment on above: Performed By: #### H DEB, CMP #### [facility] [address] [place] [address] Dr. Judd Andrade PLT 252 103/ul Normal 150-450 [facility] [place] [facility] Comment on above: Performed By: #### H DEB, CMP #### [facility] [address] [place] [address] Dr. Judd Andrade RBC 4.63 106/ul Normal 4.20-5.40 [facility] [place] [facility] Comment on above: Performed By: #### H DEB, CMP #### [facility] [address] [place] [address] Dr. Judd Andrade WBC 4.7 103/ul Normal 4.0-11.0 [facility] [place] [facility] Comment on above: Performed By: #### H DEB, CMP #### [facility] [address] [place] [address] Dr. Judd Andrade PROF 14(COMP METB)on 023 Albumin [Mass/Vol] 4.0 g/dL Normal 3.4-5.0 [facility] Comment on above: Performed By: #### H DEB, CMP #### [facility] [address] [place] [address] Dr. Judd Andrade Albumin/Globulin [Mass ratio] 1.0 {ratio} Normal [facility] [place] [facility] Comment on above: Performed By: #### H DEB, CMP #### [facility] [address] [address] [address] Judd Andrade ALP [Catalytic activity/Vol] 77 U/L Normal 46-116 [facility] [place] [facility] Comment on above: Performed By: #### H STROPN, CMP #### [facility] [address] [address] [address] Judd Andrade ALT [Catalytic activity/Vol] 33 U/L Normal 14-59 [facility] [place] [facility] Comment on above: Performed By: #### H STROPN, CMP #### [facility] [address] [address] [address] Judd Andrade Anion gap [Moles/Vol] 8.0 mmol/L Normal [facility] [place] [facility] Comment on above: Performed By: #### H STROPN, CMP #### [facility] [address] [place] [address] Dr. Judd Andrade AST [Catalytic activity/Vol] 28 U/L Normal 15-37 [facility] [place] [facility] Comment on above: Performed By: #### H STROPN, CMP #### [facility] [address] [address] [address] Judd Andrade Bilirubin [Mass/Vol] 0.6 mg/dL Normal 0.2-1.0 [facility] [place] [facility] Comment on above: Performed By: #### H STROPN, CMP #### [facility] [address] [place] [address] Dr. Judd Andrade Calcium [Mass/Vol] 9.3 mg/dL Normal 8.5-10.1 [facility] Comment on above: Performed By: #### H STROPN, CMP #### [facility] [address] [place] [address] Dr. Judd Andrade Chloride [Moles/Vol] 103 mmol/L Normal 98-107 [facility] [place] [facility] Comment on above: Performed By: #### H STROPN, CMP #### [facility] [address] [address] [address] Judd Andrade CO2 [Moles/Vol] 33.6 mmol/L Critically high 21.0-32.0 [facility] [place] [facility] Comment on above: Performed By: #### H STROPN, CMP #### [facility] [address] [address] [address] Judd Andrade Creatinine [Mass/Vol] 0.59 mg/dL Normal 0.55-1.02 [facility] [place] [facility] Comment on above: Performed By: #### H STROPN, CMP #### [facility] [address] [address] [address] Judd Andrade EGFR-AF SOMALI >60 Normal >=60 [facility] Comment on above: Performed By: #### H STROPN, CMP #### [facility] [address] [address] [address] Judd Andrade EGFR-NON AF SOMALI >60 Normal >=60 [facility] [place] [facility] Comment on above: Performed By: #### H STROPN, CMP #### [facility] [address] [address] [address] Judd Andrade Globulin (S) [Mass/Vol] 4.0 g/dL Normal [facility] [place] [facility] Comment on above: Performed By: #### H STROPN, CMP #### [facility] [address] [address] [address] Judd Andrade Glucose [Mass/Vol] 130 mg/dL Critically high 74-106 [facility] Comment on above: Performed By: #### H STROPN, CMP #### [facility] [address] [address] [address] Judd Andrade Potassium [Moles/Vol] 3.6 mmol/L Normal 3.5-5.1 [facility] [place] [facility] Comment on above: Performed By: #### H STROPN, CMP #### [facility] [address] [address] [address] Judd Andrade Protein [Mass/Vol] 8.0 g/dL Normal 6.4-8.2 [facility] Comment on above: Performed By: #### H STROPN, CMP #### [facility] [address] [address] [address] Judd Andrade Sodium [Moles/Vol] 141 mmol/L Normal 136-145 [facility] Comment on above: Performed By: #### H STROPN, CMP #### [facility] [address] [place], [place] [address] Dr. Judd Andrade Urea nitrogen [Mass/Vol] 8.0 mg/dL Normal 7.0-18.0 [facility] [place] [facility] Comment on above: Performed By: #### H TERAPN, CMP #### [facility] [address] [place], [place] [address] Dr. Judd Andrade Urea nitrogen/Creatinine [Mass ratio] 13.6 mg/mg Normal [facility] [place] [facility] Comment on above: Performed By: #### H TERAPN, CMP #### [facility] [address] [place], [place] [address] Dr. Judd Andrade TROPONIN, HIGH SENSITIVITYon 06-03-2022 HSTROP <4.0 Normal 4.0-51.3 [facility] [place] [facility] Comment on above: Result Comment: CUT- OFF POINTS HAVE BEEN ESTABLISHED BASED ON THE FOURTH UNIVERSAL DEFINITIONS OF MYOCARDIAL INFARCTION. THE UPPER REFERENCE LIMIT (URL) OF TROPONIN, DEFINED THE 99TH PERCENTILE OF cTnI DISTRIBUTION IN A REFERENCE POPULATION, HAS BEEN CONFIRMED THE DECISION THRESHOLD FOR GA DIAGNOSIS. Performed By: #### H TERAPN, CMP #### [facility] [address] [address] [address] Judd Andrade XR CHEST 2 Von [...] LINDA RHODES Date: 2022-06-03 12:15 Normal [facility] Covid-19 PCR (CVDTBH)on SARS-CoV-2 (COVID-19) RNA JOLLY+probe Ql (Unsp spec) Not detected Normal NOT DETECTED [facility] Comment on above: Result Comment: This test is not yet approved or cleared by the [place] FDA. When there are no FDA-approved or cleared tests available, and other criteria are met, FDA can make tests available under an emergency access mechanism called an Emergency Use Authorization (EUA). The EUA for this test is supported by the Patent Counsel of Health and Human Service's (HHS's) declaration [...] Performed By: #### H DEB, CMP #### [facility] [address] [place] [address] Dr. Judd Andrade INFLUENZA A AND B AGon 06-02 [facility] SEE BELOW Normal [facility] [place] [facility] Comment on above: Result Comment: Nega tive for Flu A protein angiten. Infection due to Flu A cannot be ruled out. Flu A angiten in the sample may be below the detection limit of the test. Performed By: #### H DEB, CMP #### [facility] [address] [place] [address] Dr. Judd Andrade [facility] SEE BELOW [facility] Comment on above: Result Comment: Nega tive for Flu B protein antigen. Infection due to Flu B cannot be ruled out. Flu B antigen in the sample may be below the detection limit of the test. Performed By: #### H STROPN, CMP #### [facility] [address] [place] [address] Dr. Judd Andrade INFLUENZA A AG Negative Normal NEGATIVE SEE COMMENT [facility] Comment on above: Performed By: #### H STROPN, CMP #### [facility] [address] [place] [address] Dr. Judd Andrade INFLUENZA B AG Negative Normal NEGATIVE SEE COMMENT [facility] [place] [facility] Comment on above: Performed By: #### H STROPN, CMP #### [facility] [address] [address] [address] Judd [address] US ST HEAD_NECKon 02-11-2022 [...] GABO STRONG Date: 2022-02-11 16:24 Normal [facility] MAMM SCREEN 3D SUSANA CADon 02-10-2022 MAMM SCREEN 3D SUSANA CAD Patient: YULIA DORSEY Exam Date: 02/10/2022 : 1965 Gender:F Ordering : DR JOHN PORTER . Admission #: [id number] Family : Order #: [id number] CLICK HERE TO VIEW EXAM RADIOLOGY REPORT [...] breast cancer at age 40. LOCATION: [facility] BREAST COMPOSITION: Almost entirely fatty. FINDINGS: [...] M.D. on 02/11/2022 at 14:20 Normal [facility] XR CHEST 1 Von 01-15-2022 XR [...] KAREN VALDEZ Date: 2022-01-15 18:39 Normal [facility] CBC AUTO DIFFon 12-30-2021 BASO # 0.0 103/ul Normal 0.0-0.1 [facility] [place] [facility] Comment on above: Performed By: #### C BC #### [facility] [address] [address] [address] Judd Andrade Basophils/100 WBC (Bld) 0.6 % Normal 0.2-2.0 [facility] [place] [facility] Comment on above: Performed By: #### C BC #### [facility] [address] [address] [address] Judd Andrade EO # 0.1 103/ul Normal 0.0-0.7 [facility] [place] [facility] Comment on above: Performed By: #### C BC #### [facility] [address] [place] [address] Dr. Judd Andrade Eosinophils/100 WBC (Bld) 2.1 % Normal 0.9-7.0 [facility] [place] [facility] Comment on above: Performed By: #### C BC #### [facility] [address] [address] [address] Judd Andrade Erythrocyte distribution width (RBC) [Ratio] 13.0 % Normal 11.0-15.0 [facility] [place] [facility] Comment on above: Performed By: #### C BC #### [facility] [address] [address] [address] Judd Andrade Hematocrit (Bld) [Volume fraction] 41.9 % Normal 36.0-48.0 [facility] [place] [facility] Comment on above: Performed By: #### C BC #### [facility] [address] [place] [address] Dr. Judd Andrade Hemoglobin (Bld) [Mass/Vol] 13.7 g/dL Normal 12.0-16.0 [facility] [place] [facility] Comment on above: Performed By: #### C BC #### [facility] [address] [place] [address] Dr. Judd Andrade IG # 0.03 10e3/ul Normal 0.00-0.03 [facility] [place] [facility] Comment on above: Performed By: #### C BC #### [facility] [address] [place] [address] Dr. Judd Andrade IG % 0.6 % Critically high 0.0-0.5 [facility] [place] Comment on above: Performed By: #### C BC #### [facility] [address] [place] [address] Dr. Judd Andrade LYMPH # 1.9 103/ul Normal 1.2-3.8 [facility] Comment on above: Performed By: #### C BC #### [facility] [address] [place] [address] Dr. Judd Andrade Lymphocytes/100 WBC (Bld) 34.5 % Normal 20.5-60.0 [facility] [place] [facility] Comment on above: Performed By: #### C BC #### [facility] [address] [place] [address] Dr. Judd Andrade MANUAL DIFF REQ NO Normal [facility] Comment on above: Performed By: #### C BC #### [facility] [address] [place] [address] Dr. Judd Andrade MCH (RBC) [Entitic mass] 28.5 pg Normal 26.7-34.0 [facility] Comment on above: Performed By: #### C BC #### [facility] [address] [place] [address] Dr. Judd Andrade MCHC (RBC) [Mass/Vol] 32.7 g/dL Normal 29.9-35.2 [facility] Comment on above: Performed By: #### C BC #### [facility] [address] [place] [address] Dr. Judd Andrade MCV (RBC) [Entitic vol] 87.1 fL Normal 81.0-99.0 [facility] [place] [facility] Comment on above: Performed By: #### C BC #### [facility] [address] [place] [address] Dr. Judd Andrade MONO # 0.6 103/ul Normal 0.3-0.8 [facility] Comment on above: Performed By: #### C BC #### [facility] [address] [place] [address] Dr. Judd Andrade Monocytes/100 WBC (Bld) 10.4 % Normal 1.7-12.0 [facility] Comment on above: Performed By: #### C BC #### [facility] [address] [place] [address] Dr. Judd Andrade NEUT # 2.8 103/ul Normal 1.4-6.5 [facility] Comment on above: Performed By: #### C BC #### [facility] [address] [place] [address] Dr. Judd Andrade Neutrophils/100 WBC (Bld) 51.8 % Normal 43.0-75.0 [facility] Comment on above: Performed By: #### C BC #### [facility] [address] [place] [address] Dr. Judd Andrade Platelet mean volume (Bld) [Entitic vol] 10.5 fL Normal 9.5-13.5 [facility] Comment on above: Performed By: #### C BC #### [facility] [address] [place] [address] Dr. Judd Andrade PLT 270 103/ul Normal 150-450 [facility] Comment on above: Performed By: #### C BC #### [facility] [address] [place] [address] Dr. Judd Andrade RBC 4.81 106/ul Normal 4.20-5.40 [facility] Comment on above: Performed By: #### C BC #### [facility] [address] [place] [address] Dr. Judd Andrade WBC 5.4 103/ul Normal 4.0-11.0 [facility] Comment on above: Performed By: #### C BC #### [facility] [address] [place] [address] Dr. Judd Andrade CRPon 12-30-2021 CRP [Mass/Vol] mg/L Normal <=1.0 [facility] Comment on above: Performed By: #### C BC #### [facility] [address] [place] [address] Dr. Judd Andrade PROF 14(COMP METB)on 022 Albumin [Mass/Vol] 3.9 g/dL Normal 3.4-5.0 [facility] Comment on above: Performed By: #### C BC #### [facility] [address] [place] [address] Dr. Judd Andrade Albumin/Globulin [Mass ratio] 1.0 {ratio} Normal [facility] [place] [facility] Comment on above: Performed By: #### C BC #### [facility] [address] [place] [address] Dr. Judd Andrade ALP [Catalytic activity/Vol] 64 U/L Normal 46-116 [facility] Comment on above: Performed By: #### C BC #### [facility] [address] [place] [address] Dr. Judd Andrade ALT [Catalytic activity/Vol] 50 U/L Normal 14-59 [facility] [place] [facility] Comment on above: Performed By: #### C BC #### [facility] [address] [place] [address] Dr. Judd Andrade Anion gap [Moles/Vol] 11.1 mmol/L Normal [facility] [place] [facility] Comment on above: Performed By: #### C BC #### [facility] [address] [place] [address] Dr. Judd Andrade AST [Catalytic activity/Vol] 28 U/L Normal 15-37 [facility] [place] [facility] Comment on above: Performed By: #### C BC #### [facility] [address] [place] [address] Dr. Judd Andrade Bilirubin [Mass/Vol] 0.5 mg/dL Normal 0.2-1.0 [facility] Comment on above: Performed By: #### C BC #### [facility] [address] [address] [address] Judd Andrade Calcium [Mass/Vol] 8.9 mg/dL Normal 8.5-10.1 [facility] Comment on above: Performed By: #### C BC #### [facility] [address] [address] [address] Judd Andrade Chloride [Moles/Vol] 101 mmol/L Normal 98-107 [facility] [place] [facility] Comment on above: Performed By: #### C BC #### [facility] [address] [address] [address] Judd Andrade CO2 [Moles/Vol] 29.4 mmol/L Normal 21.0-32.0 [facility] Comment on above: Performed By: #### C BC #### [facility] [address] [address] [address] Judd Andrade Creatinine [Mass/Vol] 0.73 mg/dL Normal 0.55-1.02 [facility] [place] [facility] Comment on above: Performed By: #### C BC #### [facility] [address] [address] [address] Judd Andrade EGFR-AF SOMALI >60 Normal >=60 [facility] Comment on above: Performed By: #### C BC #### [facility] [address] [address] [address] Judd Andrade EGFR-NON AF SOMALI >60 Normal >=60 [facility] [place] [facility] Comment on above: Performed By: #### C BC #### [facility] [address] [address] [address] Judd Andrade Globulin (S) [Mass/Vol] 3.8 g/dL Normal [facility] [place] [facility] Comment on above: Performed By: #### C BC #### [facility] [address] [address] [address] Judd Andrade Glucose [Mass/Vol] 139 mg/dL Critically high 74-106 [facility] Comment on above: Performed By: #### C BC #### [facility] [address] [place], [place] [address] Dr. Judd Andrade Potassium [Moles/Vol] 3.5 mmol/L Normal 3.5-5.1 [facility] Comment on above: Performed By: #### C BC #### [facility] [address] [address] [address] Judd Andrade Protein [Mass/Vol] 7.7 g/dL Normal 6.4-8.2 [facility] Comment on above: Performed By: #### C BC #### [facility] [id number] Judd Andrade Sodium [Moles/Vol] 138 mmol/L Normal 136-145 [facility] Comment on above: Performed By: #### C BC #### [facility] [address] [address] [address] Judd Andrade Urea nitrogen [Mass/Vol] 12.0 mg/dL Normal 7.0-18.0 [facility] [place] [facility] Comment on above: Performed By: #### C BC #### [facility] [address] [address] [address] Judd Andrade Urea nitrogen/Creatinine [Mass ratio] 16.4 mg/mg Normal [facility] [place] [facility] Comment on above: Performed By: #### C BC #### [facility] [id number] Judd Andrade XR CHEST 2 Von [...] ARTEMIO DIXON Date: 2021-12-29 20:49 Normal [facility] [facility] TRYPTASEon 12-27-2021 Tryptase 4.5 ug/L Normal 2.2-13.2 [facility] Comment on above: Performed By: #### C BC #### [facility] [id number] Judd Andrade CBC AUTO DIFFon 12-23-2021 BASO # 0.0 103/ul Normal 0.0-0.1 [facility] Comment on above: Performed By: #### H STROPN, CMP #### [facility] [address] [place] [address] Dr. Judd Andrade Basophils/100 WBC (Bld) 0.7 % Normal 0.2-2.0 [facility] Comment on above: Performed By: #### H STROPN, CMP #### [facility] [address] [place] [address] Dr. Judd Andrade EO # 0.0 103/ul Normal 0.0-0.7 [facility] Comment on above: Performed By: #### H STROPN, CMP #### [facility] [address] [place] [address] Dr. Judd Andrade Eosinophils/100 WBC (Bld) 0.0 % Critically low 0.9-7.0 [facility] Comment on above: Performed By: #### H STROPN, CMP #### [facility] [address] [place] [address] Dr. Judd Andrade Erythrocyte distribution width (RBC) [Ratio] 13.2 % Normal 11.0-15.0 [facility] Comment on above: Performed By: #### H STROPN, CMP #### [facility] [address] [place] [address] Dr. Judd Andrade Hematocrit (Bld) [Volume fraction] 42.1 % Normal 36.0-48.0 [facility] Comment on above: Performed By: #### H STROPN, CMP #### [facility] [address] [place] [address] Dr. Judd Andrade Hemoglobin (Bld) [Mass/Vol] 13.7 g/dL Normal 12.0-16.0 [facility] Comment on above: Performed By: #### H STROPN, CMP #### [facility] [address] [place] [address] Dr. Judd Andrade IG # 0.01 10e3/ul Normal 0.00-0.03 [facility] Comment on above: Performed By: #### H STROPN, CMP #### [facility] [address] [address] [address] Judd Andrade IG % 0.3 % Normal 0.0-0.5 [facility] Comment on above: Performed By: #### H STROPN, CMP #### [facility] [address] [address] [address] Judd Andrade LYMPH # 0.7 103/ul Critically low 1.2-3.8 [facility] Comment on above: Performed By: #### H STROPN, CMP #### [facility] [address] [address] [address] Judd Andrade Lymphocytes/100 WBC (Bld) 24.1 % Normal 20.5-60.0 [facility] Comment on above: Performed By: #### H STROPN, CMP #### [facility] [address] [address] [address] Judd Andrade MANUAL DIFF REQ NO Normal [facility] Comment on above: Performed By: #### H STROPN, CMP #### [facility] [address] [address] [address] Judd Andrade MCH (RBC) [Entitic mass] 28.4 pg Normal 26.7-34.0 [facility] Comment on above: Performed By: #### H STROPN, CMP #### [facility] [address] [address] [address] Judd Andrade MCHC (RBC) [Mass/Vol] 32.5 g/dL Normal 29.9-35.2 [facility] Comment on above: Performed By: #### H STROPN, CMP #### [facility] [address] [address] [address] Judd Andrade MCV (RBC) [Entitic vol] 87.2 fL Normal 81.0-99.0 [facility] Comment on above: Performed By: #### H STROPN, CMP #### [facility] [address] [address] [address] Judd Andrade MONO # 0.5 103/ul Normal 0.3-0.8 [facility] Comment on above: Performed By: #### H STROPN, CMP #### [facility] [address] [address] [address] Judd Andrade Monocytes/100 WBC (Bld) 16.9 % Critically high 1.7-12.0 [facility] Comment on above: Performed By: #### H STROPN, CMP #### [facility] [address] [place] [address] Dr. Judd Andrade NEUT # 1.8 103/ul Normal 1.4-6.5 [facility] Comment on above: Performed By: #### H STROPN, CMP #### [facility] [address] [place] [address] Dr. Judd Andrade Neutrophils/100 WBC (Bld) 58.0 % Normal 43.0-75.0 [facility] Comment on above: Performed By: #### H STROPN, CMP #### [facility] [address] [place] [address] Dr. Judd Andrade Platelet mean volume (Bld) [Entitic vol] 9.9 fL Normal 9.5-13.5 [facility] Comment on above: Performed By: #### H STROPN, CMP #### [facility] [address] [place] [address] Dr. Judd Andrade PLT 210 103/ul Normal 150-450 [facility] Comment on above: Performed By: #### H STROPN, CMP #### [facility] [address] [place] [address] Dr. Judd Andrade RBC 4.83 106/ul Normal 4.20-5.40 [facility] Comment on above: Performed By: #### H STROPN, CMP #### [facility] [address] [place] [address] Dr. Judd Andrade WBC 3.1 103/ul Critically low 4.0-11.0 [facility] Comment on above: Performed By: #### H STROPN, CMP #### [facility] [address] [place] [address] Dr. Judd Andrade IRONon 12-23-2021 Iron [Mass/Vol] 35.0 ug/dL Critically low 50.0-170.0 [facility] Comment on above: Performed By: #### C BC #### [facility] [address] [place] [address] Dr. Judd Andrade PROF 14(COMP METB)on Albumin [Mass/Vol] 3.9 g/dL Normal 3.4-5.0 [facility] Comment on above: Performed By: #### C BC #### [facility] [address] [place] [address] Dr. Judd Anrdade Albumin/Globulin [Mass ratio] 1.0 {ratio} Normal [facility] Comment on above: Performed By: #### C BC #### [facility] [address] [place] [address] Dr. Judd Andrade ALP [Catalytic activity/Vol] 70 U/L Normal 46-116 [facility] Comment on above: Performed By: #### C BC #### [facility] [address] [place] [address] Dr. Judd Andrade ALT [Catalytic activity/Vol] 43 U/L Normal 14-59 [facility] Comment on above: Performed By: #### C BC #### [facility] [address] [place] [address] Dr. Judd Andrade Anion gap [Moles/Vol] 11.5 mmol/L Normal [facility] Comment on above: Performed By: #### C BC #### [facility] [address] [place] [address] Dr. Judd Andrade AST [Catalytic activity/Vol] 33 U/L Normal 15-37 [facility] Comment on above: Performed By: #### C BC #### [facility] [address] [place] [address] Dr. Judd Andrade Bilirubin [Mass/Vol] 0.3 mg/dL Normal 0.2-1.0 [facility] Comment on above: Performed By: #### C BC #### [facility] [address] [place] [address] Dr. Judd Andrade Calcium [Mass/Vol] 8.9 mg/dL Normal 8.5-10.1 [facility] Comment on above: Performed By: #### C BC #### [facility] [address] [place] [address] Dr. Judd Andrade Chloride [Moles/Vol] 101 mmol/L Normal 98-107 [facility] Comment on above: Performed By: #### C BC #### [facility] [address] [place] [address] Dr. Judd Andrade CO2 [Moles/Vol] 31.1 mmol/L Normal 21.0-32.0 [facility] Comment on above: Performed By: #### C BC #### [facility] [address] [place] [address] Dr. Judd Andrade Creatinine [Mass/Vol] 0.69 mg/dL Normal 0.55-1.02 [facility] Comment on above: Performed By: #### C BC #### [facility] [address] [place] [address] Dr. Judd Andrade EGFR-AF SOMALI >60 Normal >=60 [facility] Comment on above: Performed By: #### C BC #### [facility] [address] [place] [address] Dr. Judd Andrade EGFR-NON AF SOMALI >60 Normal >=60 [facility] Comment on above: Performed By: #### C BC #### [facility] [address] [place] [address] Dr. Judd Andrade Globulin (S) [Mass/Vol] 3.8 g/dL Normal [facility] Comment on above: Performed By: #### C BC #### [facility] [address] [place] [address] Dr. Judd Andrade Glucose [Mass/Vol] 103 mg/dL Normal 74-106 [facility] Comment on above: Performed By: #### C BC #### [facility] [address] [place] [address] Dr. Judd Andrade Potassium [Moles/Vol] 3.6 mmol/L Normal 3.5-5.1 [facility] Comment on above: Performed By: #### C BC #### [facility] [address] [address] [address] Judd Andrade Protein [Mass/Vol] 7.7 g/dL Normal 6.4-8.2 [facility] Comment on above: Performed By: #### C BC #### [facility] [address] [address] [address] Judd Andrade Sodium [Moles/Vol] 140 mmol/L Normal 136-145 [facility] Comment on above: Performed By: #### C BC #### [facility] [address] [address] [address] Judd Andrade Urea nitrogen [Mass/Vol] 11.0 mg/dL Normal 7.0-18.0 [facility] Comment on above: Performed By: #### C BC #### [facility] [address] [place] [address] Dr. Judd Andrade Urea nitrogen/Creatinine [Mass ratio] 15.9 mg/mg Normal [facility] Comment on above: Performed By: #### C BC #### [facility] [address] [place] [address] Dr. Judd Andrade PROTIMEon 12-23-2021 INR Coag (PPP) [Relative time] 1.04 {INR} Normal [facility] Comment on above: Performed By: #### H DEB, CMP #### [facility] [address] [address] [address] Judd Andrade INR GUIDELINES SEE BELOW Normal [facility] Comment on above: Result Comment: PRIETO RED INR: 2.0 - 3.0 CONDITIONS NOT LISTED BELOW 2.5 - 3.5 FOR PROSTHETIC HEART VALVE REPLACEMENT 2.5 - 3.5 RECURRENT THROMBOSIS Performed By: #### H DEB, CMP #### [facility] [address] [place] [address] Dr. Judd Andrade PT Coag (PPP) [Time] 11.2 s Normal 9.0-11.6 [facility] Comment on above: Performed By: #### H DEB, CMP #### [facility] [address] [place] [address] Dr. Judd Andrade PTTon 12-23-2021 aPTT Coag (Bld) [Time] 31.5 s Normal 22.3-36.2 [facility] Comment on above: Performed By: #### H TERAPN, CMP #### [facility] [address] [address] [address] Judd Andrade ER URINE PROFILEon Bilirubin Ql (U) Negative Normal NEGATIVE [facility] Comment on above: Performed By: #### H STROPN, CMP #### [facility] [address] [address] [address] Judd Andrade Clarity (U) CLEAR Normal CLEAR [facility] Comment on above: Performed By: #### H TERAPN, CMP #### [facility] [address] [place] [address] Dr. Judd Andrade Color (U) LT. YELLOW Normal YELLOW [facility] Comment on above: Performed By: #### H DEB, CMP #### [facility] [address] [place] [address] Dr. Judd Andrade ERUSUZY A micrscopic examination will be performed if indicated. Normal [facility] Comment on above: Performed By: #### H TERAPN, CMP #### [facility] [address] [place] [address] Dr. Judd Andrade Glucose Ql (U) Negative Normal NEGATIVE [facility] Comment on above: Performed By: #### H TERAPN, CMP #### [facility] [address] [address] [address] Judd Andrade Hemoglobin Ql (U) TRACE-INTACT Abnormal NEGATIVE [facility] Comment on above: Performed By: #### H STROPN, CMP #### [facility] [address] [place] [address] Dr. Judd Andrade Ketones Ql (U) Negative Normal NEGATIVE [facility] Comment on above: Performed By: #### H STROPN, CMP #### [facility] [address] [address] [address] Judd Andrade LEUKOCYTES Negative Normal NEGATIVE [facility] Comment on above: Performed By: #### H TERAPN, CMP #### [facility] [address] [address] [address] Judd Andrade Nitrite Ql (U) Negative Normal NEGATIVE [facility] Comment on above: Performed By: #### H TERAPN, CMP #### [facility] [address] [address] [address] Judd Andrade pH (U) 6.0 [pH] Normal 5-9 [facility] Comment on above: Performed By: #### H DEB, CMP #### [facility] [address] [place] [address] Dr. Judd Andrade SPEC GRAVITY 1.005 Normal 1.005-<=1.025 [facility] Comment on above: Performed By: #### H DEB, CMP #### [facility] [address] [place] [address] Dr. Judd Andrade UA PROTEIN Negative Normal NEGATIVE/ TRACE [facility] Comment on above: Performed By: #### H DEB, CMP #### [facility] [address] [place] [address] Dr. Judd Andrade UR MICRO IND INDICATED Normal [facility] Comment on above: Performed By: #### H DEB, CMP #### [facility] [address] [place] [address] Dr. Judd Andrade Urobilinogen Qn (U) 0.2 {Carol'U}/dL Normal 0.2 - 1. 0 [facility] Comment on above: Performed By: #### H DEB, CMP #### [facility] [address] [place] [address] Dr. Judd Andrade URINE MICROSCOPIC ONLYon BACTERIA NONE SEEN Normal NONE SEEN [facility] Comment on above: Performed By: #### H DEB, CMP #### [facility] [address] [place] [address] Dr. Judd Andrade Bacteria identified Cx Nom (U) NOT INDICATED Normal [facility] Comment on above: Performed By: #### H DEB, CMP #### [facility] [address] [place], [place] [id number] Dr. Judd Andrade CAST NONE SEEN Normal NONE SEEN [facility] Comment on above: Performed By: #### H STROPN, CMP #### [facility] [address] [place] [address] Dr. Judd Andrade Crystals LM Nom (Urine sed) NONE SEEN Normal NONE SEEN [facility] Comment on above: Performed By: #### H STROPN, CMP #### [facility] [address] [place] [address] Dr. Judd Andrade Epithelial cells LM Ql (Urine sed) FEW Abnormal NONE SEEN /RARE [facility] Comment on above: Performed By: #### H STROPN, CMP #### [facility] [address] [place] [address] Dr. Judd Andrade MUCOUS NONE SEEN Normal NONE SEEN [facility] Comment on above: Performed By: #### H STROPN, CMP #### [facility] [address] [place] [address] Dr. Judd Andrade RBC 0-2 Normal 0-2 [facility] Comment on above: Performed By: #### H STROPN, CMP #### [facility] [address] [place] [address] Dr. Judd Andrade WBC NONE SEEN Normal NONE SEEN [facility] Comment on above: Performed By: #### H STROPN, CMP #### [facility] [address] [place] [address] Dr. Judd Andrade Vital Signs Date Time Vital Sign Value Performing Clinician Facility 01-20-2024 12:02-040 Body mass index (BMI) [Ratio] 28.34 kg/m2 [facility] Work Phone: [facility] 01-20-2024 12:02-399 Body weight 72.58 kg [facility] Work Phone: [facility] 01-20-2024 12:02-040 Diastolic blood pressure 80 mm[Hg] [facility] Work Phone: [facility] 01-20-2024 12:02-0400 Systolic blood pressure 160 mm[Hg] Katie Yocasta DO Work Phone: [facility] 01-03-2024 13:11-0400 Body mass index (BMI) [Ratio] 28.17 kg/m2 Katie Yocasta DO Work Phone: [facility] 01-03-2024 13:11-0400 Body weight 72.12 kg Katie Yocasta DO Work Phone: [facility] 01-03-2024 13:11-0400 Diastolic blood pressure 70 mm[Hg] Katie Yocasta DO Work Phone: [facility] 01-03-2024 13:11-0400 Systolic blood pressure 120 mm[Hg] Katie Yocasta DO Work Phone: [facility] 12-30-2023 13:48-0400 Blood Pressure Location Bessie Galea [facility] 12-30-2023 13:48-0400 Diastolic blood pressure 82 mm[Hg] Bessie Galea [facility] 12-30-2023 13:48-0400 Heart rate 80 /min Bessie Galea [facility] 12-30-2023 13:48-0400 Respiratory rate 16 /min Bessie Galea [facility] 12-30-2023 13:48-0400 Systolic blood pressure 117 mm[Hg] Bessie Galea [facility] 12-21-2023 11:47-0400 Body mass index (BMI) [Ratio] 27.99 kg/m2 Radha KAY Work Phone: [facility] 12-21-2023 11:47-0400 Body weight 71.67 kg Radha KAY Work Phone: [facility] 12-21-2023 11:47-0400 Diastolic blood pressure 78 mm[Hg] Radha KAY Work Phone: [facility] 12-21-2023 11:47-0400 Systolic blood pressure 118 mm[Hg] Radha KAY Work Phone: [facility] Encounters Encounter Date Encounter Type Care Provider Facility Start: 05-22-2024 End: 05-22-2024 ambulatory [facility] Start: 05-08-2024 End: 05-08-2024 ambulatory [facility] Start: 01-20-2024 End: 01-20-2024 Bamboo flowsheet Katie Yocasta DO Work Phone: [facility] Start: 01-20-2024 End: 01-20-2024 Bamboo flowsheet Katie Yocasta DO Work Phone: [facility] Start: 01-20-2024 End: 01-20-2024 Postop follow up visit related to original px Katie Yocasta DO Work Phone: [facility] Comment on above: Postoperative visit; S/P D&C (status post dilation and curettage) Start: 01-07-2024 End: 01-07-2024 Clinisync Result Encounter Katie Yocasta DO Work Phone: [facility] External Department Unsolicited Start: 01-07-2024 End: 01-07-2024 Clinisync Result Encounter Katie Yocasta DO Work Phone: [facility] External Department Unsolicited Start: 01-07-2024 End: 01-07-2024 ambulatory MD John Porter Work Phone: [facility] Work Phone: Start: 01-07-2024 End: 01-07-2024 Departed Referred MD John Porter Work Phone: [facility] Start: 01-03-2024 [...] examination done Katie Yocasta DO Work Phone: [facility] Start: 01-03-2024 End: 01-03-2024 ambulatory KATIE YOCASTA Not Available Start: 12-30-2023 End: 12-30-2023 ambulatory Bessie Gong Facility:[facility] Start: 12-30-2023 End: 12-30-2023 Patient encounter procedure Bessie Gong [facility] Start: 12-29-2023 End: 12-29-2023 Phys/qhp telephone evaluation 5-10 min Katie Yocasta DO Work Phone: [facility] Comment on above: Urinary tract infect ion without hematuria, site unspecified; Vulvar irritation Start: 12-21-2023 End: 12-21-2023 Bamboo flowsheet Radha KAY Work Phone: [facility] Start: 12-21-2023 End: 12-22-2023 Bamboo flowsheet Radha KAY Work Phone: [facility] Start: 12-21-2023 End: 12-22-2023 External Result Encounter Radha KAY Work Phone: [facility] External Department Unsolicited Start: 12-21-2023 End: [...] response examination DR JOHN PORTER . [facility] Start: 06-26-2022 End: 06-27-[address] [...] PM EDT Office Visit [facility] [address] [place], [place] [address] [address] Katie Rust, DO [address] [place] [address] [facility] Start: 01-07-2024 End: 01-07-2024 Patient encounter procedure 01/07/2024 9:00 AM EDT Procedure Visit [facility] Katie Rust, DO [address] [place] [place] [address] [facility] Start: 01-03-2024 End: 01-03-2024 Patient encounter procedure [facility] Comment on above: Arrived Start: 12-29-2023 End: 12-29-2023 Patient encounter procedure [facility] CHLAMYDIA TRACHOMATI S (GENITO/STI) CHLAMYDIA TRACHOMATIS (GENITO/STI) Lab Routine Vaginal burning Vaginal itching Ordered: 12/21/2023 [facility] Comment on above: Ordered: 12/21/2023 Neisseria gonorrhoea e DNA [Presence] in Unspecified specimen by JOLLY with probe detection Neisseria gonorrhea DNA probe, direct Lab Routine Vaginal burning Vaginal itching Ordered: 12/21/2023 [facility] Comment on above: Ordered: 12/21/2023 SURESWAB(R) ADVANCED VAGINITIS PLUS, TMA SURESWAB(R) ADVANCED VAGINITIS PLUS, TMA Pathology and Cytology Routine Vaginal burning Vaginal itching Ordered: 12/21/2023 [facility] Work Phone: Comment on above: Ordered: 12/21/2023 Immunizations Immunization Date Immunization Notes Care Provider Fa cili 10-05-2022 tetanus toxoid, redu heide diphtheria toxoid, and acellular pertussis vaccine, adsorbed Bessie Galea [facility] Payers Date Payer Category Payer Self-pay [id number] 2023 Unknown [id number] 2020 Unknown [employer]ONTPATH FRONTP ATH [id number] 2020-Present [phone] [address] [place] [address] [id number] 1965 Unknown [id number] 2.16.840.1.777817.3.579.2.593 1965 Unknown [id number] 2.16.840.1.364520.3.579.2.593 1965 Unknown [id number] 2.16.840.1.264364.3.579.2.593 1965 Unknown [id number] 2.16.840.1.128096.3.579.2.593 1965 Unknown [id number] 2.16.840.1.773768.3.579.2.593 1965 Unknown [id number] 2.16.840.1.020342.3.579.2.593 1965 Unknown [id number] 2.16.840.1.606982.3.579.2.593 1965 Unknown [id number] 2.16.840.1.014321.3.579.2.593 1965 Unknown [id number] 2.16.840.1.940740.3.579.2.593 1965 Unknown [id number] 2.16.840.1.072289.3.579.2.593 1965 Unknown [id number] 2.16.840.1.280604.3.579.2.593 1965 Unknown [id number] 2.16.840.1.459422.3.579.2.593 1965 Unknown [id number] 2.16.840.1.076253.3.579.2.593 1965 Unknown [id number] 2.16.840.1.954824.3.579.2.593 1965 Unknown [id number] 2.16.840.1.303091.3.579.2.593 1965 Unknown [id number] 2.16.840.1.059041.3.579.2.593 1965 Unknown [id number] 2.16.840.1.458043.3.579.2.593 1965 Unknown [id number] 2.16.840.1.121810.3.579.2.593 1965 Unknown [id number] 2.16.840.1.199677.3.579.2.593 1965 Unknown [id number] 2.16.840.1.318328.3.579.2.593 1965 Unknown [id number] 2.16.840.1.936167.3.579.2.593 1965 Unknown [id number] 2.16.840.1.405910.3.579.2.593 1965 Unknown [id number] 2.16.840.1.187850.3.579.2.593 1965 Unknown [id number] 2.16.840.1.662071.3.579.2.593 1965 Unknown [id number] 2.16.840.1.193561.3.579.2.125 9 1965 Unknown [id number] 2.16.840.1.977223.3.579.2.125 9 1965 Unknown [id number] 2.16.840.1.892122.3.579.2.125 9 1965 Unknown [id number] 2.16.840.1.054072.3.579.2.125 9 1965 Unknown [id number] 2.16.840.1.341315.3.579.2.125 9 1965 Unknown [id number] 2.16.840.1.826040.3.579.2.125 9 1965 Unknown [id number] 2.16.840.1.736540.3.579.2.727 1965 Unknown [id number] 2.16.840.1.699106.3.579.2.128 6 1965 Unknown [id number] 2.16.840.1.463628.3.579.2.128 6 1959 Self-pay [id number] 1959 Unknown [id number] 1959 Unknown [id number] Unknown [id number] 2.16.840.1.925183.3.579.2.531 Social History Date Type Detail Facility Start: 12-30-2022 End: 12-30-2023 Tobacco smoking status Ex-smoker (finding) [facility] Tobacco smoking status Never [facility] Start: 11-05-2022 End: 12-21-2023 Sex Assigned At Female [facility] [place] Start: 09-05-2013 Tobacco smoking stat us NHIS Never smoked tobacco (finding) [facility] Start: 1965 Sex Assigned At Female [facility] History of tobacco use Current smoker NOM [...] 12-30-2023 Functional Status N/A [facility] Clinical Notes 12-21-2023 to 01-20-2024 Deepti Palacios [...] nursing note reviewed. Exam conducted with a reproducer present. Vitals: Estimated body mass index is [...] Katie Rust DO documented in this encounter [facility] 01-03-2024 History of Presen t illness Narrative [...] Fibrocystic breast changes 10/28/2022 Generalized anxiety disorder ([facility]/HCC) 03/28/2019 Intermittent vertigo 04/26/2004 Irritable bowel syndrome 08/14/2013 Major depressive disorder, single episode, moderate (HCC) ([facility]/HCC) 03/28/2019 Meniere's disease 08/14/2013 Menopausal symptoms 11/17/2016 Menorrhagia 10/28/2022 Other specified hearing loss, right ear 02/25/2016 Pressure in head 04/26/2015 Psychological factors affecting medical condition 11/17/2016 Shoulder joint pain 10/28/2022 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 Exam conducted with a reproducer present. Vitals: Estimated body mass index is [...] reviewed, and patient is to proceed to [facility] OR. Follow Up: Patient is to follow up between 1-2 weeks post operative to assess proper healing and recovery from procedure. Documented by Deepti Palacios LPN on behalf of: Katie Rust DO documented in this encounter [facility] 12-30-2023 Hospital Discharg e instructions Patient Education [...] provider. Document Revised: 08/21/2021 Document Reviewed: 08/21/2021 [employer] Patient Education 2023 [employer] Follow Up Care 12/02/2023 13:46:26 With:Bessie Quiñones, URL Address: When: Unknown Comments:pending imaging and after PFPT [facility] 12-30-2023 Note Patient Education Obstetrics and Gynecology [...] provider. Document Revised: 08/21/2021 Document Reviewed: 08/21/2021 [employer] Patient Education ? 2023 [employer] [facility] 12-29-2023 History of Presen t illness Narrative Reason for Appointment: Patient ID: Yulia Dorsey is a 58 y.o. female who presents for Telehealth, UTI, and kidney stone Patient presents today via telephone call for a telehealth appointment. Patients Phone #: [phone] (mobile) Current Medications: has a current medication list which includes the following prescription(s): vitamin c, calcium carbonate, kwjhvmr-jwtnkxdov-kzal, airborne elderberry, and multivitamin. Medical History: Active Ambulatory Problems Diagnosis Date Noted GERD (gastroesophageal reflux disease) 08/14/2013 Acute pelvic pain 10/28/2022 Anxiety state ([facility]) 08/14/2013 Bilateral tinnitus 10/28/2022 Cervical disc disorder 08/14/2013 Fibrocystic breast changes 10/28/2022 Generalized anxiety disorder ([facility]) 03/28/2019 Intermittent vertigo 04/26/2004 Irritable bowel syndrome 08/14/2013 Major depressive disorder, single episode, moderate (HCC) ([facility]) 03/28/2019 Meniere's disease 08/14/2013 Menopausal symptoms 11/17/2016 [...] Katie Rust DO documented in this encounter [facility] 12-21-2023 History of Presen t illness Narrative [...] 08/14/2013 Acute pelvic pain 10/28/2022 Anxiety state ([facility]) 08/14/2013 Bilateral tinnitus 10/28/2022 Cervical disc disorder 08/14/2013 Fibrocystic breast changes 10/28/2022 Generalized anxiety disorder ([facility]/HCC) 03/28/2019 Intermittent vertigo 04/26/2004 Irritable bowel syndrome 08/14/2013 Major depressive disorder, single episode, moderate (HCC) ([facility]) 03/28/2019 Meniere's disease 08/14/2013 Menopausal symptoms 11/17/2016 [...] of: ELIZA Mccollum documented in this encounter [facility] Healthcare Evaluation + Plan note No data available for this section [facility] Evaluation note No assessment inform ation available [facility] Work Phone: Evaluation note Diagnosis Vaginal burning Other specified symptom associated with female genital organs Vaginal itching Pruritus of genital organs documented in this encounter [facility] Diagnosis Urinary tract infection without hematuria, site unspecified Vulvar irritation documented in this encounter [facility] Healthcare[facility] note* Diagnosis Pre-op examination Yeast infection Thickened endometrium Nonspecific (abnormal) findings on radiological and other examination of genitourinary organs Pelvic pain documented in this encounter [facility] Diagnosis Postoperative visit S/P D&C (status post dilation and curettage) Other postprocedural status documented in this encounter [facility] No data available for this section [facility] Summary Purpose Family History No Family History Records Found Relationship Condition Age at Onset Recorded Date/T lópez father Heart disease Unknown mother Unknown History of stroke Unknown Advance Directives No Advanced Directives Records Found Advance Directive Response Recorded Date/ Time Advance Directives No July 15 019 11:52am Additional Source Comments INFORMATION SOURCE (unrecogn ized section and content) DATE CREATED AUTHOR 10/02/2022 [facility] DATE CREATED AUTHOR AUTHOR'S ORGANIZ ATION 01/04/2024 [facility] EPIC DATE CREATED AUTHOR AUTHOR'S ORGANIZ ATION 01/09/2024 [facility] DATE CREATED AUTHOR AUTHOR'S ORGANIZ ATION 01/14/2024 [facility] DATE CREATED AUTHOR AUTHOR'S ORGANIZ ATION 05/24/2024 [facility] Patient Care team informatio n (unrecognized section and content) Team Status: Active Member Role Status Dates John Porter MD Primary Care Provider Active Team Status: Inactive Member Role Status Dates John Porter MD Primary Care Provider Active Start: January 07, 2024 End: January 07, 2024 Katie Rust DO Attending Provider Active Start : January 07, 2024 End: January 07, 2024 [employer] Relationship Specialty Start Date End Date John Porter MD [address] [place] [address] PCP - General 09/13/22 [employer] Relationship Specialty Start Date End Date John Porter MD [address] [place] [address] PCP - General 09/13/22 [employer] Relationship Specialty Start Date End Date John Porter MD [address] [place] [address] PCP - General 09/13/22 [employer] Relationship Specialty Start Date End Date John Porter MD [address] [place] [address] PCP - General 09/13/22 [employer] Relationship Specialty Start Date End Date John Porter MD [address] [place] [address] PCP - General 09/13/22 [employer] Relationship Specialty Start Date End Date John Porter MD [address] [place] [address] PCP - General 09/13/22 [employer] Relationship Specialty Start Date End Date John Porter MD [address] [place] [address] PCP - General 09/13/22 Goals (unrecognized section [...] BE BASED ON THE PRIMARY CLINICAL RECORDS. [facility]. provides no warranty or guarantee of the accuracy or completeness of information in this document.
--- NOTE | 2024-05-30 16:05 | MM_ITS ---
Patient Name: YULIA CASTANO MR#: [id number] : 1965 Exam Date: 05/30/2024 Ordering Doctor: DR Tahir Rust . RADIOLOGY REPORT PROCEDURE: MM TOMOSYNTHESIS SCREENING BI COMPARISON: MG MAMM DX 3D RT CAD, 09/22/2022. MG MAMM SCREEN 3D SUSANA CAD, 02/10/2022. MG MAMM SUSANA SCRN W CAD DIG, 02/16/2014. INDICATIONS: Screening Calculator Name NCI Breast Cancer Risk Assessment Tool 5 Year Breast Cancer Risk 1.00% Lifetime Breast Cancer Risk 5.60% Personal Breast Cancer No Personal Ovarian Cancer No Treatments None Family Cancers Cousin-paternal with breast cancer at age 54; Cousin-maternal with breast cancer at age 40. LOCATION: The [facility] BREAST COMPOSITION: The breasts are almost entirely fatty. FINDINGS: DIAGNOSTIC CATEGORY 1--NEGATIVE. RIGHT BREAST: No significant suspicious finding. No significant change has occurred. LEFT BREAST: No significant suspicious finding. No significant change has occurred. RECOMMENDATIONS: ROUTINE MAMMOGRAM AND CLINICAL EVALUATION IN 12 MONTHS. PLEASE NOTE: A NORMAL MAMMOGRAM DOES NOT EXCLUDE THE POSSIBILITY OF BREAST CANCER. A CLINICALLY SUSPICIOUS PALPABLE LUMP SHOULD BE BIOPSIED. Dictated by: Gabo Strong M.D. on 05/30/2024 at 16:32 Approved by: Gabo Strong M.D. on 05/30/2024 at 16:34
== END 2024-05-30 15:41 | disposition home or self-care (01) ==
LOC: MAMMO 15:40
PROVIDERS: PCP Family Medicine; Visit Provider Obstetrics & Gynecology
DX: Z12.31 Encounter for screening mammogram for malignant neoplasm of breast (principal); Z80.3 Family history of malignant neoplasm of breast
CPT/HCPCS: 77063; 77067

== ENCOUNTER 2024-07-05 16:42 | Emergency (ER) | payer OTHER, SELFPAY ==
[2024-07-05 16:49] VITALS: BP 160/80; PULSE 78; TEMP 36.8; O2SAT 98; BMI 28.3
--- OUTSIDE RECORDS SUMMARY | 2024-07-05 17:07 | XMS_ITS | CCD ---
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 Name Role Phone ABELINOY ., DR LOPEZ [...] Unavailable HOY ., DR LOPEZ Admchao Unavailable YOCASTA ., DR WILSON Admitting Unavailable [...] Unavailable YOCASTA ., DR WILSON Attending Unavailable LITTLETON, DR ELLYN Dougherty Consulting Unavailable HOY ., [...] LOPEZ Admitting Unavailable RHODES, WINCHA Consulting Unavailable Hoy, John Primary Care Physician VALE HI Attending Unavailable RALF RENDON Referring Unavailable YOCASTA, KATIE Attending Unavailable YOCASTA, KATIE Attending Unavailable YOCASTA, KATIE Attending Unavailable RADHA TINSLEY Attending Unavailable YOCASTA, KATIE Attending Unavailable MD John Porter Primary Care Provider [phone] DO Katie Rust Attending Provider [phone] Bessie Gong Attending Unavailable Hoy, John M Primary Care Unavailable Yocasta, Katie Attending Unavailable Yocasta, Katie Admitting Unavailable Abelinoy John MCKINNON Primary Care Provider [phone] IRIS GABRIEL Attending Unavailable HOY, JOHN M [...] source) Azithromycin Drug Allergy 12-21-19 22 [facility] Repository (4 sources) Imipramine; Translations: [IMIPRAMINE] Drug Allergy 10-06-19 13 hallucinations [facility] Repository (2 sources) Sulfonamides (Antibiotic) Drug allergy (disorder) 10-06-19 13 [facility] Repository (2 sources) E.E.S. Drug allergy (disorder) 10-06-19 13 [facility] Repository (17 sources) Erythromycin; Translations: [erythromycin] Drug Allergy 02-25-20 16 Unknown (qualifier value), Other [facility] (16 sources) Imipramine; Translations: [imipramine] Drug Allergy 02-25-20 16 Unknown (qualifier value), Other [facility] (2 sources) Sulfonamides (Antibiotic); Translations: [sulfa drugs] Drug allergy Unknown (qualifier value) [facility] (3 sources) Sulfonamides (Antibiotic); Translations: [Sulfa (Sulfonamide Antibiotics)] Allergy to substance 09-12-19 [facility] (16 sources) erythromycin base; Translations: [erythromycin base] Allergy to substance 12-02-19 [facility] (1 source) Imipramine Drug Allergy 12-02-19 [facility] Repository (14 sources) Sulfonamides (Antibiotic) Drug Intolerance 02-25-20 Rash [facility] (3 sources) Ciprofloxacin Drug Allergy 01-20-20 [facility] Medications Current Medications Medication Drug Class(es) Dates Sig (Normalized) Sig (Original) ascorbic acid 500 mg oral capsule (14 sources) Vitamin C Ascorbic Acid (Vitamin C) 500 MG capsule as directed Orally Active calcium carbonate 1500 mg oral tablet (14 sources) calcium carbonat e 1500 (600 Ca) MG tablet every 12 (twelve) hours. Active CALCIUM MAGNESIUM ZINC PO (14 sources) take 1 tablet by mouth in [...] Misc Natural Products (Airborne Elderberry) chewable tablet (14 sources) Misc Natural Products (Airborne Elderberry) chewable tablet as directed Orally Active Multiple Vitamin (multivitamin) capsule (14 sources) take 1 capsule by mouth in the morning Multiple Vitamin (multivitamin) capsule Take 1 capsule by mouth in the morning. Active Problems Active Problems Problem Classification Problem Date Documented Bhavik henning Episodic/Chronic Abdominal hernia (1 source) Hiatal hernia 12-30-2023 Episodic Anxiety disorders (20 sources) Generalized anxiety disorder; Translations: [Anxiety state] Onset: 4 12-30-2023 Chronic Calculus of urinary tract (1 source) Kidney stone 12-30-2023 Episodic Chronic obstructive pulmonary disease and bronchiectasis (5 sources) Chronic obstructive pulmonary disease, unspecified; Translations: [COPD UNSPECIFIED] Onset: 3 Chronic Conditions associated with dizziness or vertigo (15 sources) Meniere's disease; Translations: [Meniere's disease, unspecified ear] Onset: 4 12-30-2023 Chronic Deficiency and other anemia (1 source) Anemia, unspecified; Translations: [ANEMIA UNSPECIFIED] Onset: 3 Episodic Deficiency and other anemia (1 source) Anemia 11-05-2018 Episodic Diabetes mellitus without complication (1 source) Other abnormal glucose; Translations: [OTHER ABNORMAL GLUCOSE] Onset: 3 Episodic Esophageal disorders (15 sources) Gastroesophageal reflux disease; Translations: [Gastro-esophageal reflux [...] (1 source) Migraine 11-05-2018 Chronic Menopausal disorders (14 sources) Menopausal symptom; Translations: [Menopausal and female climacteric states] Onset: 7 10-28-2022 Chronic Menstrual disorders (15 sources) Excessive and frequent menstruation with regular cycle; Translations: [Menorrhagia] Onset: 2 10-28-2022 Chronic Miscellaneous mental health disorders (20 sources) Psychosomatic factor in physical condition; Translations: [Psychological and behavioral factors associated with disorders or diseases classified elsewhere] Onset: 7 10-28-2022 Chronic Mood disorders (16 sources) Depressive disorder; Translations: [Moderate major depression, single episode] Onset: 9 11-05-2018 Chronic Nonmalignant breast conditions (14 sources) Fibrocystic disease of breast; Translations: [Diffuse [...] Chronic Other ear and sense organ disorders (14 sources) Hearing loss of right ear; Translations: [Other specified hearing loss, right ear] Onset: 6 10-28-2022 Chronic Other gastrointestinal disorders (14 sources) Irritable bowel syndrome; Translations: [Irritable bowel [...] conditions (not mental disorders or infectious disease) (20 sources) Abnormal findings on diagnostic imaging of [...] Spondylosis; intervertebral disc disorders; other back problems (14 sources) Cervical disc disorder; Translations: [Cervical disc [...] Problem Date Documented Date Episodic/Chronic Abdominal pain (16 sources) Acute pelvic pain; Translations: [Pelvic and perineal pain] Onset: 10-28-2022 10-28-2022 Episodic Cardiac dysrhythmias (4 sources) Palpitations; Translations: [PALPITATIONS] Onset: 06-03-2022 Episodic Conditions associated with dizziness or vertigo (14 sources) Intermittent vertigo; Translations: [Dizziness and giddiness] Onset: 04-26-2004 10-28-2022 Episodic Deficiency and other anemia (1 source) Iron deficiency anemia, unspecified; Translations: [IRON DEFICIENCY ANEMIA UNSPECIFIED] Onset: 12-24-2021 Episodic Fluid and electrolyte disorders (4 sources) Dehydration; Translations: [DEHYDRATION] Onset: 12-24-2021 Episodic Headache; including migraine (14 sources) Headache; Translations: [Pressure in head] Onset: 04-26-2015 10-28-2022 Episodic Hepatitis (14 sources) 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; Translations: [Unspecified viral hepatitis without hepatic coma] Onset: 08-14-2013 10-28-2022 Episodic Malaise and fatigue (1 source) Other fatigue; Translations: [OTHER FATIGUE] Onset: 06-05-2022 Episodic Mycoses (2 sources) Mycosis; Translations: [Candidiasis, unspecified] 01-03-2024 Episodic Other aftercare (4 sources) 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; Translations: [OTH ASSISTED CURRENT DRUG THERAPY] Onset: 12-23-2021 Episodic Other circulatory disease (1 source) Other specified symptoms and signs involving the circulatory and respiratory systems; Translations: [OTH SPEC SX SIGNS INVLV CIRC RS] Onset: 06-05-2022 Episodic Other ear and sense organ disorders (14 sources) Bilateral tinnitus; Translations: [Tinnitus, bilateral] Onset: [...] Onset: 01-15-2022 Episodic Other non-traumatic joint disorders (14 sources) Shoulder joint pain; Translations: [Pain in [...] Test Name Value Interpretation Reference Range Facility MM TOMOSYNTHESIS SCREENING B Ion 05-30-2024 [place] [address] Mammography Report Signed Patient: YULIA DORSEY MR#: [id number] : 1965 Acct:[id number] Age/Sex: 58 / F ADM Date: 05/30/24 Loc: MAMMO Attending Dr: Katie Rust D.O. Ordering Physician: Katie Rust D.O. Results: Date of Service: 05/30/24 Follow Up: Procedure(s): MM tomosynthesis screening BI Accession Number(s): [id number] cc: Katie Rust D.O.; John Porter M.D. Patient Name: YULIA DORSEY MR#: [id number] : 1965 Exam Date: 05/30/2024 Ordering Doctor: DR Katie Rust . RADIOLOGY REPORT PROCEDURE: MM TOMOSYNTHESIS SCREENING BI COMPARISON: MG MAMM DX 3D RT CAD, 09/22/2022. MG MAMM SCREEN 3D SUSANA CAD, 02/10/2022. MG MAMM SUSANA SCRN W CAD DIG, 02/16/2014. INDICATIONS: Screening Calculator Name NCI Breast Cancer Risk Assessment Tool 5 Year Breast Cancer Risk 1.00% Lifetime Breast Cancer Risk 5.60% Personal Breast Cancer No Personal Ovarian Cancer No Treatments None Family Cancers Cousin-paternal with breast cancer at age 54; Cousin-maternal with breast cancer at age 40. LOCATION: [facility] BREAST COMPOSITION: The breasts are almost entirely fatty. FINDINGS: DIAGNOSTIC CATEGORY 1--NEGATIVE. RIGHT [...] BIOPSIED. Dictated by: Gabo Strong M.D. on 05/30/2024 at 16:32 Approved by: Gabo Strong M.D. on 05/30/2024 at 16:34 Dictated By: Gabo Strong M.D. Signed By: 05/30/24 1635 DD/ 1634 TD/TT: Dialysis Equipment Technician: [facility] Radiology, Radiologist, MD - 05/30/2024 [place] [address] Mammography Report Signed Patient: YULIA DORSEY MR#: [id number] : 1965 Acct:[id number] Age/Sex: 58 / F ADM Date: 05/30/24 Loc: MAMMO Attending Dr: Katie Rust D.O. Ordering Physician: Katie Rust D.O. Results: Date of Service: 05/30/24 Follow Up: Procedure(s): MM tomosynthesis screening BI Accession Number(s): [id number] cc: Katie Rust D.O.; John Porter M.D. Patient Name: YULIA DORSEY MR#: [id number] : 1965 Exam Date: 05/30/2024 Ordering Doctor: DR Katie Rust . RADIOLOGY REPORT PROCEDURE: MM TOMOSYNTHESIS SCREENING BI COMPARISON: MG MAMM DX 3D RT CAD, 09/22/2022. MG MAMM SCREEN 3D SUSANA CAD, 02/10/2022. MG MAMM SUSANA SCRN W CAD DIG, 02/16/2014. INDICATIONS: Screening Calculator Name NCI Breast Cancer Risk Assessment Tool 5 Year Breast Cancer Risk 1.00% Lifetime Breast Cancer Risk 5.60% Personal Breast Cancer No Personal Ovarian Cancer No Treatments None Family Cancers Cousin-paternal with breast cancer at age 54; Cousin-maternal with breast cancer at age 40. LOCATION: [facility] BREAST COMPOSITION: The breasts are almost entirely fatty. FINDINGS: DIAGNOSTIC CATEGORY 1--NEGATIVE. RIGHT [...] BIOPSIED. Dictated by: Gabo Strong M.D. on 05/30/2024 at 16:32 Approved by: Gabo Strong M.D. on 05/30/2024 at 16:34 Dictated By: Gabo Strong M.D. Signed By: 05/30/241634 DD/ 33 TD/TT: Dialysis Equipment Technician: [facility] Radiology Study observation (narrative) [facility] MM TOMOSYNTHESIS SCREENING B IOrdered By: Radiologist Radiology on 05-30-[address] [facility] Work Phone: ALL CBC WITH AUTO DIFFon BASOPHILS ABSOLUTE AUTO 0.[address] [facility] Basophils/100 WBC (Bld) 0.8 % 0.2 - 2.0 % [facility] Eosinophils/100 WBC (Bld) 1.9 % 0.9 - 7.0 % [facility] Erythrocyte distribution width (RBC) [Ratio] 13.4 % 11.0 - 15.0 % [facility] Hematocrit (Bld) [Volume fraction] 43.1 % 36.0 - 48.0 % [facility] Hemoglobin (Bld) [Mass/Vol] 13.9 g/dL 12.0 - 16.0 g/dL [facility] IMMATURE GRANULOCYTES ABS AUTO 0.[address] [facility] Immature granulocytes/100 WBC (Bld) 0.2 % 0.0 - 0.5 % [facility] LYMPHOCYTES ABSOLUTE AUTO 1.[address] [facility] Lymphocytes/100 WBC (Bld) 32.9 % 20.5 - 60.0 % [facility] MCH (RBC) [Entitic mass] 28.8 pg 26.7 - 34.[address] [facility] MCHC (RBC) [Mass/Vol] 32.3 g/dL 29.9 - 35.2 g/dL [facility] MCV (RBC) [Entitic vol] 89.2 fL 81.0 - 99.[address] [facility] MONOCYTES ABSOLUTE AUTO 0.[address] [facility] Monocytes/100 WBC (Bld) 9.6 % 1.7 - 12.0 % [facility] NEUTROPHILS ABSOLUTE AUTO 2.[address] [facility] Neutrophils/100 WBC (Bld) 54.6 % 43.0 - 75.0 % [facility] Platelet mean volume (Bld) [Entitic vol] 9.7 fL 9.5 - 13.5 fL [facility] EO # 0.1 [facility] PLT 291 [facility] RBC 4.83 [facility] WBC 5.[address] [facility] [place] 01-07-2024 L Specimen: [id number] Received: 01/07/24 Status: LAWSON Megan Num: [id number] Spec Type: Surgical Subm Dr: Katie Rust Tissues: A Endometrial Polyp (ENOMETRIAL POLYP AND CURETTI) Procedures: HE/2, Gross/Micro L4 Age/ Patient Sex Location Account Attending Physician Gen Willianrenee Meenakshi 58/F LABELL [id number] Katie Rust SPEC NUM: [id number] RECD: 01/07/24 STATUS: LAWSON GUZMAN NUM: [id number] TIMOTHY: 01/07/[address]: Katie Rust ENTERED: 01/07/[address] [facility] [address]: Cristhian,Lab SPEC TYPE: Surgical DEPT: BIANCA VANN ENTERED BY: [id number] RECV BY: [id number] ORDERED: HE/2, Gross/Micro L4 ORDERED: HE/2, Gross/Micro [...] is entirely submitted cassette A1. CPT Codes 33213 -------- -------- Specimen: [id number] Received: 01/07/24-134 Status: LAWSON Guzman Num: [id number] Spec Type: Surgical Subm Dr: Katie Rust Tissues: A Endometrial Polyp (ENOMETRIAL POLYP AND CURETTI) Procedures: HE/2, Gross/Micro L4 -------- Patient: Yulia Dorsey [id number] (Continued) -------- Signed (signature on file) Tammie Mcclellan MD 01/13/24 1606 Normal [facility] Patient Letter FTon 2023 Patient Letter [facility] Patient Letter [facility] January 07, 2024 YULIA Melendez [place] [address] : 1965 Dear Yulia Dorsey, We have been trying to reach you with no success. It is important that you return our call upon receiving this letter. Also, at the time of your call, please provide us with your current information. Thank you for your prompt attention to this matter. Sincerely, [facility] [address] [address] [facility] Ambulatory Visit Summaryon 0 12-30-2023 Ambulatory Visit [...] you for choosing us for your care. [facility] Provider Letteron 12-30-2023 Provider Letter Provider Letter December 30, 2023 YULIA DORSEY [address] [place] [address] : 1965 To Whom It May Concern, Please excuse above patient from work. Date of Illness: From: 12/30/23 To: 12/30/23 May Return to Work On: 12/31/2023 Restrictions: Comments: Patient had an appointment on 12/30/23 at 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 Porter for recurrent UTI [...] she went to an urgent care in [facility] who started her on Augmentin for [...] E&M of New Patient High 60-74 Min 21353 2. Kidney stones (N20.0: Calculus of kidney) [...] now. -K (more content not included)... Normal [facility] Comment on above: Result Comment: Elec tronically Signed By: Farideh BARRERA, Bessie Modi\.br\Date and Time Signed: 12/30/23 15:22 EDT URETHRITIS/DISCHARGE PLUS VA GINITIS (HTRX)on 12-22-2023 ATOPOBIUM VAGINAE 0.000 [facility] ATOPOBIUM VAGINAE Not detected [facility] BVAB 2,3 (BACTERIAL VAGINOSIS ASSOCIATED BACTERIA 2, 3); MOBILUNCUS SPP 0.000 [facility] BVAB 2,3 (BACTERIAL VAGINOSIS ASSOCIATED BACTERIA [...] 0.000 [facility] GARDNERELLA VAGINALIS Not detected [facility] MEGASPHAERA (TYPES 1, 2) 0.000 [facility] MEGASPHAERA (TYPES 1, 2) Not detected [facility] MYCOPLASMA GENITALIUM 0.000 [facility] MYCOPLASMA GENITALIUM Not detected [facility] NEISSERIA GONORRHOEAE 0.000 [facility] NEISSERIA GONORRHOEAE Not detected [facility] TRICHOMONAS VAGINALIS 0.000 [facility] TRICHOMONAS VAGINALIS Not detected [facility] MG MAMM DX 3D RT CADon 09-22 MG MAMM DX 3D RT CAD Patient: WILLIANYULIA. Exam Date: 09/22/2022 : 1965 Gender:F Ordering : DR KATIE RUST . Admission #: [id number] Family : Order #: [id number] CLICK HERE TO VIEW EXAM RADIOLOGY REPORT [...] breast cancer at age 40. LOCATION: [facility] BREAST COMPOSITION: Almost entirely fatty. FINDINGS: [...] MD on 09/22/2022 at 15:03 Normal [facility] US BREAST RIGHT LIMITEDon US BREAST RIGHT LIMITED Patient: YULIA DORSEY Exam Date: 09/22/2022 : 1965 Gender:F Ordering : DR KATIE RUST . Admission #: [id number] Family : Order #: [id number] CLICK HERE TO VIEW EXAM RADIOLOGY REPORT [...] breast cancer at age 40. LOCATION: [facility] BREAST COMPOSITION: Almost entirely fatty. FINDINGS: [...] MD on 09/22/2022 at 15:03 Normal [facility] US ST HEAD_NECKon 08-31-[address] [...] by: GABO STRONG Date: 2022-08-31 08:09 Normal [facility] US PELVIS AND TRANSVAGon US PELVIS [...] GABO STRONG Date: 2022-07-29 06:32 Normal [facility] INSULINon 07-04-2022 Insulin 6.2 uIU/mL Normal 2.6-24.9 [facility] Comment on above: Performed By: #### H STROPN, CMP #### [facility] [address] [place] [address] Dr. Judd Andrade CBC AUTO DIFFon 07-03-2022 BASO # 0.0 103/ul Normal 0.0-0.1 [facility] Comment on above: Performed By: #### C BC #### [facility] [address] [place] [address] Dr. Judd Andrade Basophils/100 WBC (Bld) 1.1 % Normal 0.2-2.0 [facility] Comment on above: Performed By: #### C BC #### [facility] [address] [place] [address] Dr. Judd Andrade EO # 0.1 103/ul Normal 0.0-0.7 [facility] Comment on above: Performed By: #### C BC #### [facility] [address] [place] [address] Dr. Judd Andrade Eosinophils/100 WBC (Bld) 3.6 % Normal 0.9-7.0 [facility] Comment on above: Performed By: #### C BC #### [facility] [address] [place] [address] Dr. Judd Andrade Erythrocyte distribution width (RBC) [Ratio] 13.6 % Normal 11.0-15.0 [facility] Comment on above: Performed By: #### C BC #### [facility] [address] [place] [address] Dr. Judd Andrade Hematocrit (Bld) [Volume fraction] 41.8 % Normal 36.0-48.0 [facility] Comment on above: Performed By: #### C BC #### [facility] [address] [place] [address] Dr. Judd Andrade Hemoglobin (Bld) [Mass/Vol] 13.5 g/dL Normal 12.0-16.0 [facility] Comment on above: Performed By: #### C BC #### [facility] [address] [place] [address] Dr. Judd Andrade IG # 0.01 10e3/ul Normal 0.00-0.03 [facility] Comment on above: Performed By: #### C BC #### [facility] [address] [place] [address] Dr. Judd Andrade IG % 0.3 % Normal 0.0-0.5 [facility] Comment on above: Performed By: #### C BC #### [facility] [address] [place] [address] Dr. Judd Andrade LYMPH # 1.4 103/ul Normal 1.2-3.8 [facility] Comment on above: Performed By: #### C BC #### [facility] [address] [place] [address] Dr. Judd Andrade Lymphocytes/100 WBC (Bld) 38.4 % Normal 20.5-60.0 [facility] Comment on above: Performed By: #### C BC #### [facility] [address] [place] [address] Dr. Judd Andrade MANUAL DIFF REQ NO Normal [facility] Comment on above: Performed By: #### C BC #### [facility] [address] [place] [address] Dr. Judd Andrade MCH (RBC) [Entitic mass] 28.2 pg Normal 26.7-34.0 [facility] Comment on above: Performed By: #### C BC #### [facility] [address] [place] [address] Dr. Judd Andrade MCHC (RBC) [Mass/Vol] 32.3 g/dL Normal 29.9-35.2 [facility] Comment on above: Performed By: #### C BC #### [facility] [address] [address] [address] Judd Andrade MCV (RBC) [Entitic vol] 87.4 fL Normal 81.0-99.0 [facility] Comment on above: Performed By: #### C BC #### [facility] [address] [address] [address] Judd Andrade MONO # 0.4 103/ul Normal 0.3-0.8 [facility] Comment on above: Performed By: #### C BC #### [facility] [address] [place] [address] Dr. Judd Andrade Monocytes/100 WBC (Bld) 10.4 % Normal 1.7-12.0 [facility] Comment on above: Performed By: #### C BC #### [facility] [address] [place] [address] Dr. Judd Andrade NEUT # 1.7 103/ul Normal 1.4-6.5 [facility] Comment on above: Performed By: #### C BC #### [facility] [address] [place] [address] Dr. Judd Andrade Neutrophils/100 WBC (Bld) 46.2 % Normal 43.0-75.0 [facility] Comment on above: Performed By: #### C BC #### [facility] [address] [place] [address] Dr. Judd Andrade Platelet mean volume (Bld) [Entitic vol] 9.6 fL Normal 9.5-13.5 [facility] Comment on above: Performed By: #### C BC #### [facility] [address] [place] [address] Dr. Judd Andrade PLT 246 103/ul Normal 150-450 [facility] Comment on above: Performed By: #### C BC #### [facility] [address] [place] [address] Dr. Judd Andrade RBC 4.78 106/ul Normal 4.20-5.40 [facility] Comment on above: Performed By: #### C BC #### [facility] [address] [address] [address] Judd Andrade WBC 3.7 103/ul Critically low 4.0-11.0 [facility] Comment on above: Performed By: #### C BC #### [facility] [address] [place] [address] Dr. Judd Andrade FREE THYROXINE INDEX T7on FTI 3.20 Normal 1.30-4.50 [facility] Comment on above: Performed By: #### T 7, LIPID, TSH, CMP #### [facility] [address] [address] [address] Judd Andrade T3U 36.0 % Normal 30.0-39.0 [facility] Comment on above: Performed By: #### T 7, LIPID, TSH, CMP #### [facility] [address] [place] [address] Dr. Judd Andrade T4 [Mass/Vol] 8.90 ug/dL Normal 4.80-13.90 [facility] Comment on above: Performed By: #### T 7, LIPID, TSH, CMP #### [facility] [address] [place] [address] Dr. Judd Andrade GLYCOHEMOGLOBIN A1Con 2022 ADA RECOMMENDATION SEE BELOW Normal [facility] Comment on above: Result Comment: ADA RECOMMENDED LIMIT 4.0 - 6.0 ADA THERAPEUTIC TARGET < 7.0 ACTION SUGGESTED > 7.0 Performed By: #### C BC #### [facility] [address] [place] [address] Dr. Judd Andrade Glucose [Mass/Vol] 120 mg/dL Normal [facility] Comment on above: Performed By: #### C BC #### [facility] [address] [place] [address] Dr. Judd Andrade HbA1c (Bld) [Mass fraction] 5.8 % Normal 4.5-6.2 [facility] Comment on above: Performed By: #### C BC #### [facility] [address] [place] [address] Dr. Judd Andrade IRONon 07-03-2022 Iron [Mass/Vol] 67.0 ug/dL Normal 50.0-170.0 [facility] Comment on above: Performed By: #### V ITAD, IRON #### [facility] [address] [address] [address] Judd Andrade LIPID PROFILEon 07-03-2022 CHOL-HDL RATIO NORM SEE BELOW Normal [facility] Comment on above: Result Comment: 3.3 - 4.4 LOW RISK 4.4 - 7.1 AVERAGE RISK 7.1 - 11.0 MODERATE RISK >11.0 HIGH RISK Performed By: #### T 7, LIPID, TSH, CMP #### [facility] [address] [address] [address] Judd Andrade Cholesterol [Mass/Vol] 216 mg/dL Critically high <=200 [facility] Comment on above: Performed By: #### T 7, LIPID, TSH, CMP #### [facility] [address] [address] [address] Judd Andrade Cholesterol in HDL [Mass/Vol] 87 mg/dL Critically high 40-60 [facility] Comment on above: Performed By: #### T 7, LIPID, TSH, CMP #### [facility] [address] [address] [address] Judd Andrade Cholesterol in LDL [Mass/Vol] 124.2 mg/dL Normal [facility] Comment on above: Performed By: #### T 7, LIPID, TSH, CMP #### [facility] [address] [address] [address] Judd Andrade Cholesterol.total/C holesterol in HDL [Mass ratio] 2.5 {ratio} Normal [facility] Comment on above: Performed By: #### T 7, LIPID, TSH, CMP #### [facility] [address] [address] [address] Judd Andrade HDL NORMAL > or = 60 mg/dl - LO W CARDIOVASCULAR RISK <40 mg/dl - HIGH CARDIOVASCULAR RISK Normal [facility] Comment on above: Performed By: #### T 7, LIPID, TSH, CMP #### [facility] [address] [place] [address] Dr. Judd Andrade LDL CALC NORMAL SEE BELOW Normal [facility] Comment on above: Result Comment: <100 mg/dl OPTIMAL 100 - 129 mg/dl NEAR OR ABOVE OPTIMAL 130 - 159 mg/dl BORDERLINE HIGH 160 - 189 mg/dl HIGH >190 mg/dl VERY HIGH Performed By: #### T 7, LIPID, TSH, CMP #### [facility] [address] [address] [address] Judd Andrade Triglyceride [Mass/Vol] 24 mg/dL Normal <=150 [facility] Comment on above: Performed By: #### T 7, LIPID, TSH, CMP #### [facility] [address] [place] [address] Dr. Judd Andrade VLDL CALC 4.8 mg/dL Normal [facility] Comment on above: Performed By: #### T 7, LIPID, TSH, CMP #### [facility] [address] [place] [address] Dr. Judd Andrade PROF 14(COMP METB)on 023 Albumin [Mass/Vol] 4.0 g/dL Normal 3.4-5.0 [facility] Comment on above: Performed By: #### T 7, LIPID, TSH, CMP #### [facility] [address] [place] [address] Dr. Judd Andrade Albumin/Globulin [Mass ratio] 1.1 {ratio} Normal [facility] Comment on above: Performed By: #### T 7, LIPID, TSH, CMP #### [facility] [address] [place] [address] Dr. Judd Andrade ALP [Catalytic activity/Vol] 78 U/L Normal 46-116 [facility] Comment on above: Performed By: #### T 7, LIPID, TSH, CMP #### [facility] [address] [place] [address] Dr. Judd Andrade ALT [Catalytic activity/Vol] 29 U/L Normal 14-59 [facility] Comment on above: Performed By: #### T 7, LIPID, TSH, CMP #### [facility] [address] [address] [address] Judd Andrade Anion gap [Moles/Vol] 5.6 mmol/L Normal [facility] Comment on above: Performed By: #### T 7, LIPID, TSH, CMP #### [facility] [address] [address] [address] Judd Andrade AST [Catalytic activity/Vol] 23 U/L Normal 15-37 [facility] Comment on above: Performed By: #### T 7, LIPID, TSH, CMP #### [facility] [address] [place] [address] Dr. Judd Andrade Bilirubin [Mass/Vol] 0.5 mg/dL Normal 0.2-1.0 [facility] Comment on above: Performed By: #### T 7, LIPID, TSH, CMP #### [facility] [address] [place] [address] Dr. Judd Andrade Calcium [Mass/Vol] 8.9 mg/dL Normal 8.5-10.1 [facility] Comment on above: Performed By: #### T 7, LIPID, TSH, CMP #### [facility] [address] [address] [address] Judd Andrade Chloride [Moles/Vol] 105 mmol/L Normal 98-107 [facility] Comment on above: Performed By: #### T 7, LIPID, TSH, CMP #### [facility] [address] [place] [address] Dr. Judd Andrade CO2 [Moles/Vol] 32.0 mmol/L Normal 21.0-32.0 [facility] Comment on above: Performed By: #### T 7, LIPID, TSH, CMP #### [facility] [address] [address] [address] Judd Andrade Creatinine [Mass/Vol] 0.52 mg/dL Critically low 0.55-1.02 [facility] Comment on above: Performed By: #### T 7, LIPID, TSH, CMP #### [facility] [address] [address] [address] Judd Andrade EGFR-AF UGANDAN >60 Normal >=60 [facility] Comment on above: Performed By: #### T 7, LIPID, TSH, CMP #### [facility] [address] [address] [address] Judd Andrade EGFR-NON AF UGANDAN >60 Normal >=60 [facility] Comment on above: Performed By: #### T 7, LIPID, TSH, CMP #### [facility] [address] [address] [address] Judd Andrade Globulin (S) [Mass/Vol] 3.6 g/dL Normal [facility] Comment on above: Performed By: #### T 7, LIPID, TSH, CMP #### [facility] [address] [address] [address] Judd Andrade Glucose [Mass/Vol] 89 mg/dL Normal 74-[address] [facility] Comment on above: Performed By: #### T 7, LIPID, TSH, CMP #### [facility] [address] [place] [address] Dr. Judd Andrade Potassium [Moles/Vol] 4.2 mmol/L Normal 3.5-5.1 [facility] Comment on above: Performed By: #### T 7, LIPID, TSH, CMP #### [facility] [address] [place] [address] Dr. Judd Andrade Protein [Mass/Vol] 7.6 g/dL Normal 6.4-8.[address] [facility] Comment on above: Performed By: #### T 7, LIPID, TSH, CMP #### [facility] [address] [address] [address] Judd Andrade Sodium [Moles/Vol] 139 mmol/L Normal 136-[address] [facility] Comment on above: Performed By: #### T 7, LIPID, TSH, CMP #### [facility] [address] [place] [address] Dr. Judd Andrade Urea nitrogen [Mass/Vol] 11.0 mg/dL Normal 7.0-18.0 [facility] Comment on above: Performed By: #### T 7, LIPID, TSH, CMP #### [facility] [address] [place] [address] Dr. Judd Andrade Urea nitrogen/Creatinine [Mass ratio] 21.2 mg/mg Normal [facility] Comment on above: Performed By: #### T 7, LIPID, TSH, CMP #### [facility] [address] [place] [address] Dr. Judd Andrade TSHon 07-03-2022 TSH 1.037 uIU/mL Normal 0.358-3.740 [facility] Comment on above: Performed By: #### T 7, LIPID, TSH, CMP #### [facility] [address] [place] [address] Dr. Judd Andrade VITAMIN D 25 OHon 07-03-2022 VIT D 25-OH 32.8 ng/mL Normal [facility] Comment on above: Performed By: #### V CARMELO, IRON #### [facility] [address] [place] [address] Dr. Judd Andrade VIT D RANGES SEE BELOW Normal [facility] Comment on above: Result Comment: <20 ng/mL Vit D deficient 20 - <30 ng/mL Vit D insufficient 30 - 100 ng/mL Vit D sufficient >100 ng/mL Potential Toxicity Performed By: #### V CARMELO, IRON #### [facility] [address] [place] [address] Dr. Judd Andrade BORDETELLA PERTUSSIS AB IGGo n 06-30-2022 B pertussis IgG Ab 3.88 index Invalid Interpretation Code 0.00-0.94 [facility] Comment on above: Result Comment: Clie nt Requested Flag Negative <0.95 Equivocal 0.95 - 1.04 Positive >1.04 Performed By: #### C BC #### [facility] [address] [place] [address] Dr. Judd Andrade BORDETELLA PERTUSSIS AB IGMo n 06-30-2022 B pertussis IgM Ab <1.0 Normal 0.0-0.9 [facility] Comment on above: Result Comment: Nega tive <1.0 Borderline 1.0 - 1.1 Positive >1.1 Performed By: #### H STROPN, CMP #### [facility] [address] [place] [address] Dr. Judd Andrade [id number] 2022 Dbahd-3-Noczokgrsls , Serum 158 mg/dL Normal 101-187 [facility] Comment on above: Performed By: #### C BC #### [facility] [address] [address] [address] Judd Andrade CBC AUTO DIFFon 06-03-2022 BASO # 0.0 103/ul Normal 0.0-0.1 [facility] Comment on above: Performed By: #### H STROPN, CMP #### [facility] [address] [address] [address] Judd Andrade Basophils/100 WBC (Bld) 0.6 % Normal 0.2-2.0 [facility] Comment on above: Performed By: #### H STROPN, CMP #### [facility] [address] [address] [address] Judd Andrade EO # 0.0 103/ul Normal 0.0-0.7 [facility] Comment on above: Performed By: #### H STROPN, CMP #### [facility] [address] [address] [address] Judd Andrade Eosinophils/100 WBC (Bld) 0.6 % Critically low 0.9-7.0 [facility] Comment on above: Performed By: #### H STROPN, CMP #### [facility] [address] [address] [address] Judd Andrade Erythrocyte distribution width (RBC) [Ratio] 13.5 % Normal 11.0-15.0 [facility] Comment on above: Performed By: #### H STROPN, CMP #### [facility] [address] [address] [address] Judd Andrade Hematocrit (Bld) [Volume fraction] 42.4 % Normal 36.0-48.0 [facility] Comment on above: Performed By: #### H STROPN, CMP #### [facility] [address] [address] [address] Judd Andrade Hemoglobin (Bld) [Mass/Vol] 13.4 g/dL Normal 12.0-16.0 [facility] Comment on above: Performed By: #### H STROPN, CMP #### [facility] [address] [place] [address] Dr. Judd Andrade IG # 0.01 10e3/ul Normal 0.00-0.03 [facility] Comment on above: Performed By: #### H STROPN, CMP #### [facility] [address] [place] [address] Dr. Judd Andrade IG % 0.2 % Normal 0.0-0.5 [facility] Comment on above: Performed By: #### H STROPN, CMP #### [facility] [address] [place] [address] Dr. Judd Andrade LYMPH # 1.1 103/ul Critically low 1.2-3.8 [facility] Comment on above: Performed By: #### H STROPN, CMP #### [facility] [address] [place] [address] Dr. Judd Andrade Lymphocytes/100 WBC (Bld) 23.5 % Normal 20.5-60.0 [facility] Comment on above: Performed By: #### H STROPN, CMP #### [facility] [address] [place] [address] Dr. Judd Andrade MANUAL DIFF REQ NO Normal [facility] Comment on above: Performed By: #### H STROPN, CMP #### [facility] [address] [place] [address] Dr. Judd Andrade MCH (RBC) [Entitic mass] 28.9 pg Normal 26.7-34.0 [facility] Comment on above: Performed By: #### H STROPN, CMP #### [facility] [address] [place] [address] Dr. Judd Andrade MCHC (RBC) [Mass/Vol] 31.6 g/dL Normal 29.9-35.2 [facility] Comment on above: Performed By: #### H STROPN, CMP #### [facility] [address] [place] [address] Dr. Judd Andrade MCV (RBC) [Entitic vol] 91.6 fL Normal 81.0-99.0 [facility] Comment on above: Performed By: #### H DEB, CMP #### [facility] [address] [place] [address] Dr. Judd Andrade MONO # 0.8 103/ul Normal 0.3-0.8 [facility] Comment on above: Performed By: #### H DEB, CMP #### [facility] [address] [place] [address] Dr. Judd Andrade Monocytes/100 WBC (Bld) 16.5 % Critically high 1.7-12.0 [facility] Comment on above: Performed By: #### H DEB, CMP #### [facility] [address] [place] [address] Dr. Judd Andrade NEUT # 2.7 103/ul Normal 1.4-6.5 [facility] Comment on above: Performed By: #### H DEB, CMP #### [facility] [address] [place] [address] Dr. Judd Andrade Neutrophils/100 WBC (Bld) 58.6 % Normal 43.0-75.0 [facility] Comment on above: Performed By: #### H DEB, CMP #### [facility] [address] [place] [address] Dr. Judd Andrade Platelet mean volume (Bld) [Entitic vol] 9.8 fL Normal 9.5-13.5 [facility] Comment on above: Performed By: #### H DEB, CMP #### [facility] [address] [place] [address] Dr. Judd Andrade PLT 252 103/ul Normal 150-450 [facility] Comment on above: Performed By: #### H TERAPN, CMP #### [facility] [address] [place] [address] Dr. Judd Andrade RBC 4.63 106/ul Normal 4.20-5.40 [facility] Comment on above: Performed By: #### H DEB, CMP #### [facility] [address] [place], [place] [id number] Dr. Judd Andrade WBC 4.7 103/ul Normal 4.0-11.0 [facility] Comment on above: Performed By: #### H DEB, CMP #### [facility] [address] [place] [address] Dr. Judd Andrade PROF 14(COMP METB)on 023 Albumin [Mass/Vol] 4.0 g/dL Normal 3.4-5.0 [facility] Comment on above: Performed By: #### H TERAPN, CMP #### [facility] [address] [place] [address] Dr. Judd Andrade Albumin/Globulin [Mass ratio] 1.0 {ratio} Normal [facility] Comment on above: Performed By: #### H DEB, CMP #### [facility] [address] [place] [address] Dr. Judd Andrade ALP [Catalytic activity/Vol] 77 U/L Normal 46-116 [facility] Comment on above: Performed By: #### H TERAPN, CMP #### [facility] [address] [place] [address] Dr. Judd Andrade ALT [Catalytic activity/Vol] 33 U/L Normal 14-59 [facility] Comment on above: Performed By: #### H DEB, CMP #### [facility] [address] [place] [address] Dr. Judd Andrade Anion gap [Moles/Vol] 8.0 mmol/L Normal [facility] Comment on above: Performed By: #### H TERAPN, CMP #### [facility] [address] [place] [address] Dr. Judd Andrade AST [Catalytic activity/Vol] 28 U/L Normal 15-37 [facility] Comment on above: Performed By: #### H STROPN, CMP #### [facility] [address] [place] [address] Dr. Judd Andrade Bilirubin [Mass/Vol] 0.6 mg/dL Normal 0.2-1.0 [facility] Comment on above: Performed By: #### H STROPN, CMP #### [facility] [address] [address] [address] Judd Andrade Calcium [Mass/Vol] 9.3 mg/dL Normal 8.5-10.1 [facility] Comment on above: Performed By: #### H STROPN, CMP #### [facility] [address] [address] [address] Judd Andrade Chloride [Moles/Vol] 103 mmol/L Normal 98-107 [facility] Comment on above: Performed By: #### H STROPN, CMP #### [facility] [address] [address] [address] Judd Andrade CO2 [Moles/Vol] 33.6 mmol/L Critically high 21.0-32.0 [facility] Comment on above: Performed By: #### H STROPN, CMP #### [facility] [address] [place] [address] Dr. Judd Andrade Creatinine [Mass/Vol] 0.59 mg/dL Normal 0.55-1.02 [facility] Comment on above: Performed By: #### H STROPN, CMP #### [facility] [address] [address] [address] Judd Andrade EGFR-AF UGANDAN >60 Normal >=60 [facility] Comment on above: Performed By: #### H STROPN, CMP #### [facility] [address] [place] [address] Dr. Judd Andrade EGFR-NON AF UGANDAN >60 Normal >=60 [facility] Comment on above: Performed By: #### H STROPN, CMP #### [facility] [address] [address] [address] Judd Andrade Globulin (S) [Mass/Vol] 4.0 g/dL Normal [facility] Comment on above: Performed By: #### H STROPN, CMP #### [facility] [address] [address] [address] Judd Andrade Glucose [Mass/Vol] 130 mg/dL Critically high 74-106 [facility] Comment on above: Performed By: #### H STROPN, CMP #### [facility] [address] [address] [address] Judd Andrade Potassium [Moles/Vol] 3.6 mmol/L Normal 3.5-5.1 [facility] Comment on above: Performed By: #### H STROPN, CMP #### [facility] [address] [address] [address] Judd Andrade Protein [Mass/Vol] 8.0 g/dL Normal 6.4-8.[address] [facility] Comment on above: Performed By: #### H STROPN, CMP #### [facility] [address] [address] [address] Judd Andrade Sodium [Moles/Vol] 141 mmol/L Normal 136-145 [facility] Comment on above: Performed By: #### H STROPN, CMP #### [facility] [address] [place] [address] Dr. Judd Andrade Urea nitrogen [Mass/Vol] 8.0 mg/dL Normal 7.0-18.0 [facility] Comment on above: Performed By: #### H STROPN, CMP #### [facility] [address] [place] [address] Dr. Judd Andrade Urea nitrogen/Creatinine [Mass ratio] 13.6 mg/mg Normal [facility] Comment on above: Performed By: #### H STROPN, CMP #### [facility] [address] [place] [address] Dr. Judd Andrade TROPONIN, HIGH SENSITIVITYon 06-03-2022 HSTROP <4.0 Normal 4.0-51.3 [facility] Comment on above: Result Comment: CUT- OFF POINTS HAVE BEEN ESTABLISHED BASED ON THE FOURTH UNIVERSAL DEFINITIONS OF MYOCARDIAL INFARCTION. THE UPPER REFERENCE LIMIT (URL) OF TROPONIN, DEFINED THE 99TH PERCENTILE OF cTnI DISTRIBUTION IN A REFERENCE POPULATION, HAS BEEN CONFIRMED THE DECISION THRESHOLD FOR AL DIAGNOSIS. Performed By: #### H STROPN, CMP #### [facility] [address] [place] [address] Dr. Judd Andrade XR CHEST 2 Von [...] acute cardiopulmonary disease. Electronically authenticated by: LINDA TNANG Date: 2022-06-03 12:15 Normal [facility] Covid-19 PCR (CVDTB)on SARS-CoV-2 (COVID-19) RNA JOLLY+probe Ql (Unsp spec) Not detected Normal NOT DETECTED [facility] Comment on above: Result Comment: This test is not yet approved or cleared by the [place] FDA. When there are no FDA-approved or cleared tests available, and other criteria are met, FDA can make tests available under an emergency access mechanism called an Emergency Use Authorization (EUA). The EUA for this test is supported by the [employer] of Health and Human Service's (HHS's) declaration [...] Performed By: #### H DEB, CMP #### [facility] [address] [place] [address] Dr. Judd Andrade INFLUENZA A AND B AGon 06-02 INFLUANEGH SEE BELOW Normal [facility] Comment on above: Result Comment: Nega tive for Flu A protein angiten. Infection due to Flu A cannot be ruled out. Flu A angiten in the sample may be below the detection limit of the test. Performed By: #### H DEB, CMP #### [facility] [address] [address] [address] Judd Andrade [facility] SEE BELOW Normal [facility] Comment on above: Result Comment: Nega tive for Flu B protein antigen. Infection due to Flu B cannot be ruled out. Flu B antigen in the sample may be below the detection limit of the test. Performed By: #### H STROPN, CMP #### [facility] [address] [address] [address] Judd Andrade INFLUENZA A AG Negative Normal NEGATIVE SEE COMMENT [facility] Comment on above: Performed By: #### H STROPN, CMP #### [facility] [address] [address] [address] Judd Andrade INFLUENZA B AG Negative Normal NEGATIVE SEE COMMENT [facility] Comment on above: Performed By: #### H STROPN, CMP #### [facility] [address] [address] [address] Jud[address] US [address] HEAD_NECKon 02-11-2022 [...] GABO STRONG Date: 2022-02-11 16:24 Normal [facility] MG MAMM SCREEN 3D SUSANA CADon 02-10-2022 MG MAMM SCREEN 3D SUSANA CAD Patient: YULIA DORSEY Exam Date: 02/10/2022 : 1965 Gender:F Ordering : DR JOHN PORTER . Admission #: [id number] Family : Order #: [id number] CLICK HERE TO VIEW EXAM RADIOLOGY REPORT [...] breast cancer at age 40. LOCATION: [facility] BREAST COMPOSITION: Almost entirely fatty. FINDINGS: [...] Strong M.D. on 02/11/2022 at 14:20 Normal [facility] XR CHEST 1 Von 01-15-2022 XR [...] KAREN VALDEZ Date: 2022-01-15 18:39 Normal [facility] CBC AUTO DIFFon 12-30-2021 BASO # 0.0 103/ul Normal 0.0-0.1 [facility] Comment on above: Performed By: #### C BC #### [facility] [address] [address] [address] Judd Andrade Basophils/100 WBC (Bld) 0.6 % Normal 0.2-2.0 [facility] Comment on above: Performed By: #### C BC #### [facility] [address] [address] [address] Judd Andrade EO # 0.1 103/ul Normal 0.0-0.7 [facility] Comment on above: Performed By: #### C BC #### [facility] [address] [address] [address] Judd Andrade Eosinophils/100 WBC (Bld) 2.1 % Normal 0.9-7.0 [facility] Comment on above: Performed By: #### C BC #### [facility] [address] [place] [address] Dr. Judd Andrade Erythrocyte distribution width (RBC) [Ratio] 13.0 % Normal 11.0-15.0 [facility] Comment on above: Performed By: #### C BC #### [facility] [address] [place] [address] Dr. Judd Andrade Hematocrit (Bld) [Volume fraction] 41.9 % Normal 36.0-48.0 [facility] Comment on above: Performed By: #### C BC #### [facility] [address] [place] [address] Dr. Judd Andrade Hemoglobin (Bld) [Mass/Vol] 13.7 g/dL Normal 12.0-16.0 [facility] Comment on above: Performed By: #### C BC #### [facility] [address] [place] [address] Dr. Judd Andrade IG # 0.03 10e3/ul Normal 0.00-0.03 [facility] Comment on above: Performed By: #### C BC #### [facility] [address] [place] [address] Dr. Judd Andrade IG % 0.6 % Critically high 0.0-0.5 [facility] Comment on above: Performed By: #### C BC #### [facility] [address] [place] [address] Dr. Judd Andrade LYMPH # 1.9 103/ul Normal 1.2-3.8 [facility] Comment on above: Performed By: #### C BC #### [facility] [address] [place] [address] Dr. Judd Andrade Lymphocytes/100 WBC (Bld) 34.5 % Normal 20.5-60.0 [facility] Comment on above: Performed By: #### C BC #### [facility] [address] [place] [address] Dr. Judd Andrade MANUAL DIFF REQ NO Normal [facility] Comment on above: Performed By: #### C BC #### [facility] [address] [place] [address] Dr. Judd Andrade MCH (RBC) [Entitic mass] 28.5 pg Normal 26.7-34.0 [facility] Comment on above: Performed By: #### C BC #### [facility] [address] [place] [address] Dr. Judd Andrade MCHC (RBC) [Mass/Vol] 32.7 g/dL Normal 29.9-35.2 [facility] Comment on above: Performed By: #### C BC #### [facility] [address] [place] [address] Dr. Judd Andrade MCV (RBC) [Entitic vol] 87.1 fL Normal 81.0-99.0 [facility] Comment on above: Performed By: #### C BC #### [facility] [address] [place] [address] Dr. Judd Andrade MONO # 0.6 103/ul Normal 0.3-0.8 [facility] Comment on above: Performed By: #### C BC #### [facility] [address] [place] [address] Dr. Judd Andrade Monocytes/100 WBC (Bld) 10.4 % Normal 1.7-12.0 [facility] Comment on above: Performed By: #### C BC #### [facility] [address] [place] [address] Dr. Judd Andrade NEUT # 2.8 103/ul Normal 1.4-6.5 [facility] Comment on above: Performed By: #### C BC #### [facility] [address] [place] [address] Dr. Judd Andrade Neutrophils/100 WBC (Bld) 51.8 % Normal 43.0-75.0 [facility] Comment on above: Performed By: #### C BC #### [facility] [address] [place] [address] Dr. Judd Andrade Platelet mean volume (Bld) [Entitic vol] 10.5 fL Normal 9.5-13.5 [facility] Comment on above: Performed By: #### C BC #### [facility] [address] [place] [address] Dr. Judd Andrade PLT 270 103/ul Normal 150-450 [facility] Comment on above: Performed By: #### C BC #### [facility] [address] [place] [address] Dr. Judd Andrade RBC 4.81 106/ul Normal 4.20-5.40 [facility] Comment on above: Performed By: #### C BC #### [facility] [address] [place] [address] Dr. Judd Andrade WBC 5.4 103/ul Normal 4.0-11.0 [facility] Comment on above: Performed By: #### C BC #### [facility] [address] [place] [address] Dr. Judd Andrade CRPon 12-30-2021 CRP [Mass/Vol] mg/L Normal <=1.0 [facility] Comment on above: Performed By: #### C BC #### [facility] [address] [place] [address] Dr. Judd Andrade PROF 14(COMP METB)on 022 Albumin [Mass/Vol] 3.9 g/dL Normal 3.4-5.0 [facility] Comment on above: Performed By: #### C BC #### [facility] [address] [place] [address] Dr. Judd Andrade Albumin/Globulin [Mass ratio] 1.0 {ratio} Normal [facility] Comment on above: Performed By: #### C BC #### [facility] [address] [place] [address] Dr. Judd Andrade ALP [Catalytic activity/Vol] 64 U/L Normal 46-116 [facility] Comment on above: Performed By: #### C BC #### [facility] [address] [place] [address] Dr. Judd Andrade ALT [Catalytic activity/Vol] 50 U/L Normal 14-59 [facility] Comment on above: Performed By: #### C BC #### [facility] [address] [address] [address] Judd Andrade Anion gap [Moles/Vol] 11.1 mmol/L Normal [facility] Comment on above: Performed By: #### C BC #### [facility] [address] [address] [address] Judd Andrade AST [Catalytic activity/Vol] 28 U/L Normal 15-37 [facility] Comment on above: Performed By: #### C BC #### [facility] [address] [address] [address] Judd Andrade Bilirubin [Mass/Vol] 0.5 mg/dL Normal 0.2-1.0 [facility] Comment on above: Performed By: #### C BC #### [facility] [address] [place] [address] Dr. Judd Andrade Calcium [Mass/Vol] 8.9 mg/dL Normal 8.5-10.1 [facility] Comment on above: Performed By: #### C BC #### [facility] [address] [address] [address] Judd Andrade Chloride [Moles/Vol] 101 mmol/L Normal 98-107 [facility] Comment on above: Performed By: #### C BC #### [facility] [address] [address] [address] Judd Andrade CO2 [Moles/Vol] 29.4 mmol/L Normal 21.0-32.0 [facility] Comment on above: Performed By: #### C BC #### [facility] [address] [address] [address] Judd Andrade Creatinine [Mass/Vol] 0.73 mg/dL Normal 0.55-1.02 [facility] Comment on above: Performed By: #### C BC #### [facility] [address] [address] [address] Judd Andrade EGFR-AF UGANDAN >60 Normal >=60 [facility] Comment on above: Performed By: #### C BC #### [facility] [address] [place] [address] Dr. Judd Andrade EGFR-NON AF UGANDAN >60 Normal >=60 [facility] Comment on above: Performed By: #### C BC #### [facility] [address] [address] [address] Judd Andrade Globulin (S) [Mass/Vol] 3.8 g/dL Normal [facility] Comment on above: Performed By: #### C BC #### [facility] [address] [place] [address] Dr. Judd Andrade Glucose [Mass/Vol] 139 mg/dL Critically high 74-106 [facility] Comment on above: Performed By: #### C BC #### [facility] [address] [place] [address] Dr. Judd Andrade Potassium [Moles/Vol] 3.5 mmol/L Normal 3.5-5.1 [facility] Comment on above: Performed By: #### C BC #### [facility] [address] [place] [address] Dr. Judd Andrade Protein [Mass/Vol] 7.7 g/dL Normal 6.4-8.[address] [facility] Comment on above: Performed By: #### C BC #### [facility] [address] [place] [address] Dr. Judd Andrade Sodium [Moles/Vol] 138 mmol/L Normal 136-[address] [facility] Comment on above: Performed By: #### C BC #### [facility] [address] [place] [address] Dr. Judd Adnrade Urea nitrogen [Mass/Vol] 12.0 mg/dL Normal 7.0-18.0 [facility] Comment on above: Performed By: #### C BC #### [facility] [address] [place] [address] Dr. Judd Andrade Urea nitrogen/Creatinine [Mass ratio] 16.4 mg/mg Normal [facility] Comment on above: Performed By: #### C BC #### [facility] [address] [place] [address] Dr. Judd Andrade XR CHEST 2 Von [...] ARTEMIO DIXON Date: 2021-12-29 20:49 Normal [facility] TRYPTASEon 12-27-2021 Tryptase 4.5 ug/L Normal 2.2-13.2 [facility] Comment on above: Performed By: #### C BC #### [facility] [address] [place] [address] Dr. Judd Andrade CBC AUTO DIFFon 12-23-2021 BASO # 0.0 103/ul Normal 0.0-0.1 [facility] Comment on above: Performed By: #### H STROPN, CMP #### [facility] [address] [place] [address] Dr. Judd Andrade Basophils/100 WBC (Bld) 0.7 % Normal 0.2-2.0 [facility] Comment on above: Performed By: #### H STROPN, CMP #### [facility] [address] [place] [address] Dr. Judd Andrade EO # 0.0 103/ul Normal 0.0-0.7 [facility] Comment on above: Performed By: #### H STROPN, CMP #### [facility] [address] [place] [address] Dr. Judd Andrade Eosinophils/100 WBC (Bld) 0.0 % Critically low 0.9-7.0 [facility] Comment on above: Performed By: #### H STROPN, CMP #### [facility] [address] [place] [address] Dr. Judd Andrade Erythrocyte distribution width (RBC) [Ratio] 13.2 % Normal 11.0-15.0 [facility] Comment on above: Performed By: #### H STROPN, CMP #### [facility] [address] [place] [address] Dr. Judd Andrade Hematocrit (Bld) [Volume fraction] 42.1 % Normal 36.0-48.0 [facility] Comment on above: Performed By: #### H STROPN, CMP #### [facility] [address] [place] [address] Dr. Judd Andrade Hemoglobin (Bld) [Mass/Vol] 13.7 g/dL Normal 12.0-16.0 [facility] Comment on above: Performed By: #### H STROPN, CMP #### [facility] [address] [place] [address] Dr. Judd Andrade IG # 0.01 10e3/ul Normal 0.00-0.03 [facility] Comment on above: Performed By: #### H STROPN, CMP #### [facility] [address] [place] [address] Dr. Judd Andrade IG % 0.3 % Normal 0.0-0.5 [facility] Comment on above: Performed By: #### H STROPN, CMP #### [facility] [address] [place] [address] Dr. Judd Andrade LYMPH # 0.7 103/ul Critically low 1.2-3.8 [facility] Comment on above: Performed By: #### H STROPN, CMP #### [facility] [address] [place] [address] Dr. Judd Andrade Lymphocytes/100 WBC (Bld) 24.1 % Normal 20.5-60.0 [facility] Comment on above: Performed By: #### H STROPN, CMP #### [facility] [address] [place] [address] Dr. Judd Andrade MANUAL DIFF REQ NO Normal [facility] Comment on above: Performed By: #### H STROPN, CMP #### [facility] [address] [place] [address] Dr. Judd Andrade MCH (RBC) [Entitic mass] 28.4 pg Normal 26.7-34.0 [facility] Comment on above: Performed By: #### H STROPN, CMP #### [facility] [address] [place] [address] Dr. Judd Andrade MCHC (RBC) [Mass/Vol] 32.5 g/dL Normal 29.9-35.2 [facility] Comment on above: Performed By: #### H STROPN, CMP #### [facility] [address] [place] [address] Dr. Judd Andrade MCV (RBC) [Entitic vol] 87.2 fL Normal 81.0-99.0 [facility] Comment on above: Performed By: #### H STROPN, CMP #### [facility] [address] [place] [address] Dr. Judd Andrade MONO # 0.5 103/ul Normal 0.3-0.8 [facility] Comment on above: Performed By: #### H STROPN, CMP #### [facility] [address] [place] [address] Dr. Judd Andrade Monocytes/100 WBC (Bld) 16.9 % Critically high 1.7-12.0 [facility] Comment on above: Performed By: #### H STROPN, CMP #### [facility] [address] [place] [address] Dr. Judd Andrade NEUT # 1.8 103/ul Normal 1.4-6.5 [facility] Comment on above: Performed By: #### H STROPN, CMP #### [facility] [address] [place] [address] Dr. Judd Andrade Neutrophils/100 WBC (Bld) 58.0 % Normal 43.0-75.0 [facility] Comment on above: Performed By: #### H STROPN, CMP #### [facility] [address] [place] [address] Dr. Judd Andrade Platelet mean volume (Bld) [Entitic vol] 9.9 fL Normal 9.5-13.5 [facility] Comment on above: Performed By: #### H STROPN, CMP #### [facility] [address] [place] [address] Dr. Judd Andrade PLT 210 103/ul Normal 150-450 [facility] Comment on above: Performed By: #### H TERAPN, CMP #### [facility] [address] [place] [address] Dr. Judd Andrade RBC 4.83 106/ul Normal 4.20-5.40 [facility] Comment on above: Performed By: #### H TERAPN, CMP #### [facility] [address] [place] [address] Dr. Judd Andrade WBC 3.1 103/ul Critically low 4.0-11.0 [facility] Comment on above: Performed By: #### H DEB, CMP #### [facility] [address] [place] [address] Dr. Judd Andrade IRONon 12-23-2021 Iron [Mass/Vol] 35.0 ug/dL Critically low 50.0-170.0 [facility] Comment on above: Performed By: #### C BC #### [facility] [address] [place] [address] Dr. Judd Andrade PROF 14(COMP METB)on 022 Albumin [Mass/Vol] 3.9 g/dL Normal 3.4-5.0 [facility] Comment on above: Performed By: #### C BC #### [facility] [address] [place] [address] Dr. Judd Andrade Albumin/Globulin [Mass ratio] 1.0 {ratio} Normal [facility] Comment on above: Performed By: #### C BC #### [facility] [address] [place] [address] Dr. Judd Andrade ALP [Catalytic activity/Vol] 70 U/L Normal 46-116 [facility] Comment on above: Performed By: #### C BC #### [facility] [address] [place] [address] Dr. Judd Andrade ALT [Catalytic activity/Vol] 43 U/L Normal 14-59 [facility] Comment on above: Performed By: #### C BC #### [facility] [address] [place] [address] Dr. Judd Andrade Anion gap [Moles/Vol] 11.5 mmol/L Normal [facility] Comment on above: Performed By: #### C BC #### [facility] [address] [place] [address] Dr. Judd Andrade AST [Catalytic activity/Vol] 33 U/L Normal 15-37 [facility] Comment on above: Performed By: #### C BC #### [facility] [address] [place] [address] Dr. Judd Andrade Bilirubin [Mass/Vol] 0.3 mg/dL Normal 0.2-1.0 [facility] Comment on above: Performed By: #### C BC #### [facility] [address] [place] [address] Dr. Judd Andrade Calcium [Mass/Vol] 8.9 mg/dL Normal 8.5-10.1 [facility] Comment on above: Performed By: #### C BC #### [facility] [address] [place] [address] Dr. Judd Andrade Chloride [Moles/Vol] 101 mmol/L Normal 98-107 [facility] Comment on above: Performed By: #### C BC #### [facility] [address] [place] [address] Dr. Judd Andrade CO2 [Moles/Vol] 31.1 mmol/L Normal 21.0-32.0 [facility] Comment on above: Performed By: #### C BC #### [facility] [address] [place] [address] Dr. Judd Andrade Creatinine [Mass/Vol] 0.69 mg/dL Normal 0.55-1.02 [facility] Comment on above: Performed By: #### C BC #### [facility] [address] [place] [address] Dr. Judd Andrade EGFR-AF UGANDAN >60 Normal >=60 [facility] Comment on above: Performed By: #### C BC #### [facility] [address] [place] [address] Dr. Judd Andrade EGFR-NON AF UGANDAN >60 Normal >=60 [facility] Comment on above: Performed By: #### C BC #### [facility] [address] [address] [address] Judd Andrade Globulin (S) [Mass/Vol] 3.8 g/dL Normal [facility] Comment on above: Performed By: #### C BC #### [facility] [address] [address] [address] Judd Andrade Glucose [Mass/Vol] 103 mg/dL Normal 74-106 [facility] Comment on above: Performed By: #### C BC #### [facility] [address] [place] [address] Dr. Judd Andrade Potassium [Moles/Vol] 3.6 mmol/L Normal 3.5-5.1 [facility] Comment on above: Performed By: #### C BC #### [facility] [address] [place] [address] Dr. Judd Andrade Protein [Mass/Vol] 7.7 g/dL Normal 6.4-8.2 [facility] Comment on above: Performed By: #### C BC #### [facility] [address] [place] [address] Dr. Judd Andrade Sodium [Moles/Vol] 140 mmol/L Normal 136-145 [facility] Comment on above: Performed By: #### C BC #### [facility] [address] [place] [address] Dr. Judd Andrade Urea nitrogen [Mass/Vol] 11.0 mg/dL Normal 7.0-18.0 [facility] Comment on above: Performed By: #### C BC #### [facility] [address] [place] [address] Dr. Judd Andrade Urea nitrogen/Creatinine [Mass ratio] 15.9 mg/mg Normal [facility] Comment on above: Performed By: #### C BC #### [facility] [address] [place] [address] Dr. Judd Andrade PROTIMEon 12-23-2021 INR Coag (PPP) [Relative time] 1.04 {INR} Normal [facility] Comment on above: Performed By: #### H DEB, CMP #### [facility] [address] [place] [address] Dr. Judd Andrade INR GUIDELINES SEE BELOW Normal [facility] Comment on above: Result Comment: PRIETO RED INR: 2.0 - 3.0 CONDITIONS NOT LISTED BELOW 2.5 - 3.5 FOR PROSTHETIC HEART VALVE REPLACEMENT 2.5 - 3.5 RECURRENT THROMBOSIS Performed By: #### H DEB, CMP #### [facility] [address] [place] [address] Dr. Judd Andrade PT Coag (PPP) [Time] 11.2 s Normal 9.0-11.6 [facility] Comment on above: Performed By: #### H DEB, CMP #### [facility] [address] [place] [address] Dr. Judd Andrade PTTon 12-23-2021 aPTT Coag (Bld) [Time] 31.5 s Normal 22.3-36.2 [facility] Comment on above: Performed By: #### H DEB, CMP #### [facility] [address] [place] [address] Dr. Judd Andrade ER URINE PROFILEon 2 Bilirubin Ql (U) Negative Normal NEGATIVE [facility] Comment on above: Performed By: #### H DEB, CMP #### [facility] [address] [place] [address] Dr. Judd Andrade Clarity (U) CLEAR Normal CLEAR [facility] Comment on above: Performed By: #### H DEB, CMP #### [facility] [address] [place] [address] Dr. Judd Andrade Color (U) LT. YELLOW Normal YELLOW [facility] Comment on above: Performed By: #### H DEB, CMP #### [facility] [address] [place] [address] Dr. Judd Andrade ERUAHRomina A micrscopic examination will be performed if indicated. Normal [facility] Comment on above: Performed By: #### H DEB, CMP #### [facility] [address] [place] [address] Dr. Judd Andrade Glucose Ql (U) Negative Normal NEGATIVE [facility] Comment on above: Performed By: #### H STROPN, CMP #### [facility] [address] [address] [address] Judd Andrade Hemoglobin Ql (U) TRACE-INTACT Abnormal NEGATIVE [facility] Comment on above: Performed By: #### H STROPN, CMP #### [facility] [address] [address] [address] Judd Andrade Ketones Ql (U) Negative Normal NEGATIVE [facility] Comment on above: Performed By: #### H STROPN, CMP #### [facility] [address] [address] [address] Judd Andrade LEUKOCYTES Negative Normal NEGATIVE [facility] Comment on above: Performed By: #### H STROPN, CMP #### [facility] [address] [place] [address] Dr. Judd Andrade Nitrite Ql (U) Negative Normal NEGATIVE [facility] Comment on above: Performed By: #### H STROPN, CMP #### [facility] [address] [address] [address] Judd Andrdae pH (U) 6.0 [pH] Normal 5-9 [facility] Comment on above: Performed By: #### H STROPN, CMP #### [facility] [address] [place] [address] Dr. Judd Andrade SPEC GRAVITY 1.005 Normal 1.005-<=1.025 [facility] Comment on above: Performed By: #### H STROPN, CMP #### [facility] [address] [address] [address] Judd Andrade UA PROTEIN Negative Normal NEGATIVE/ TRACE [facility] Comment on above: Performed By: #### H STROPN, CMP #### [facility] [address] [address] [address] Judd Andrade UR MICRO IND INDICATED Normal [facility] Comment on above: Performed By: #### H STROPN, CMP #### [facility] [address] [place] [address] Dr. Judd Andrade Urobilinogen Qn (U) 0.2 {Carol'U}/dL Normal 0.2 - 1. 0 [facility] Comment on above: Performed By: #### H STROPN, CMP #### [facility] [address] [address] [address] Judd Andrade URINE MICROSCOPIC ONLYon BACTERIA NONE SEEN Normal NONE SEEN [facility] Comment on above: Performed By: #### H STROPN, CMP #### [facility] [address] [place] [address] Dr. Judd Andrade Bacteria identified Cx Nom (U) NOT INDICATED Normal [facility] Comment on above: Performed By: #### H STROPN, CMP #### [facility] [address] [place] [address] Dr. Judd Andrade CAST NONE SEEN Normal NONE SEEN [facility] Comment on above: Performed By: #### H STROPN, CMP #### [facility] [address] [place] [address] Dr. Judd Andrade Crystals LM Nom (Urine sed) NONE SEEN Normal NONE SEEN [facility] Comment on above: Performed By: #### H STROPN, CMP #### [facility] [address] [place] [address] Dr. Judd Andrade Epithelial cells LM Ql (Urine sed) FEW Abnormal NONE SEEN /RARE [facility] Comment on above: Performed By: #### H STROPN, CMP #### [facility] [address] [place] [address] Dr. Judd Andrade MUCOUS NONE SEEN Normal NONE SEEN [facility] Comment on above: Performed By: #### H STROPN, CMP #### [facility] [address] [place] [address] Dr. Judd Andrade RBC 0-2 Normal 0-2 [facility] Comment on above: Performed By: #### H STROPN, CMP #### [facility] [address] [place] [address] Dr. Judd Andrade WBC NONE SEEN Normal NONE SEEN [facility] [facility] Comment on above: Performed By: #### H STROPN, CMP #### [facility] [address] [address] [address] Judd Andrade Vital Signs Date Time Vital Sign Value Performing Clinician Facility 01-20-2024 12:02-0400 Body mass index (BMI) [Ratio] 28.34 kg/m2 Katie Yocasta DO Work Phone: [facility] 01-20-2024 12:02-0400 Body weight 72.58 kg Katie Yocasta DO Work Phone: [facility] 01-20-2024 12:02-0400 Diastolic blood pressure 80 mm[Hg] Katie Yocasta DO Work Phone: [facility] 01-20-2024 12:02-0400 Systolic blood pressure 160 mm[Hg] Katie Yocasta DO Work Phone: [facility] 01-03-2024 13:11-0400 Body mass index (BMI) [Ratio] 28.17 kg/m2 Katie Yocasta DO Work Phone: [facility] 01-03-2024 13:11-0400 Body weight 72.12 kg Katie Yocasta DO Work Phone: [facility] 01-03-2024 13:11-0400 Diastolic blood pressure 70 mm[Hg] Katie Yocasta DO Work Phone: [facility] 01-03-2024 13:11-0400 Systolic blood pressure 120 mm[Hg] Katie Yocasta DO Work Phone: [facility] 12-30-2023 13:48-0400 Blood Pressure Location Bessie Galea [facility] 12-30-2023 13:48-0400 Diastolic blood pressure 82 mm[Hg] Bessie Galea [facility] 12-30-2023 13:48-0400 Heart rate 80 /min Bessie Galea [facility] 12-30-2023 13:48-0400 Respiratory rate 16 /min Bessie Gong [facility] 12-30-2023 13:48-0400 Systolic blood pressure 117 mm[Hg] Bessie Gong [facility] 12-21-2023 11:47-0400 Body mass index (BMI) [Ratio] 27.99 kg/m2 Radha KAY Work Phone: [facility] 12-21-2023 11:47-0400 Body weight 71.67 kg Radha KAY Work Phone: [facility] 12-21-2023 11:47-0400 Diastolic blood pressure 78 mm[Hg] aRdha KAY Work Phone: [facility] 12-21-2023 11:47-0400 Systolic blood pressure 118 mm[Hg] Radha KAY Work Phone: [facility] Encounters Encounter Date Encounter Type Care Provider Facility Start: 07-03-2024 End: 07-03-2024 [facility] Start: 06-19-2024 End: 06-19-2024 [facility] Start: 06-06-2024 End: 06-06-2024 [facility] Start: 05-30-2024 End: 05-30-2024 Clinisync Result Encounter Katie Yocasta DO Work Phone: [facility] Unsolicited Start: 05-30-2024 End: 05-30-2024 Clinisync Result Encounter Katie Yocasta DO Work Phone: [facility] Unsolicited Start: 05-29-2024 End: 05-29-2024 [facility] Start: 05-22-2024 End: 05-22-2024 [facility] Start: 05-08-2024 End: 05-08-2024 ambulatory IRIS GABRIEL [facility] Start: 01-20-2024 End: 01-20-2024 Bamboo flowsheet Katie Yocasta DO Work Phone: [facility] Start: 01-20-2024 End: 01-20-2024 Bamboo flowsheet Katie Yocasta DO Work Phone: [facility] Start: 01-20-2024 End: 01-20-2024 Postop follow up visit related to original px Katie Yocasta DO Work Phone: [facility] Comment on above: Postoperative visit; S/P D&C (status post dilation and curettage) Start: 01-07-2024 End: 01-07-2024 Clinisync Result Encounter Katie Yocasta DO Work Phone: [facility] External Department Unsolicited Start: 01-07-2024 End: 01-07-2024 Clinisync Result Encounter Katie Yocasta DO Work Phone: [facility] External Department Unsolicited Start: 01-07-2024 End: 01-07-2024 ambulatory MD oJhn Porter Work Phone: [facility] Work Phone: Start: 01-07-2024 End: 01-07-2024 Departed Referred MD John Porter Work Phone: [facility] Start: 01-03-2024 End: 01-03-2024 Bamboo flowsheet Katie Yocasta DO Work Phone: [facility] Start: 01-03-2024 End: 01-03-2024 Bamboo flowsheet Katie Yocasta DO Work Phone: [facility] Start: 01-03-2024 End: 01-03-2024 Office outpatient visit 15 minutes Katie Yocasta DO Work Phone: [facility] Comment on above: Pre-op examination; Yeast infection; Thickened endometrium; Pelvic pain Start: 01-03-2024 End: 01-03-2024 Preprocedural examination done Katie Yocasta DO Work Phone: [facility] Start: 01-03-2024 End: 01-03-2024 ambulatory KATIE YOCASTA Not Available Start: 12-30-2023 End: 12-30-2023 ambulatory Bessie J Reubendoreen Facility:[facility] Start: 12-30-2023 End: 12-30-2023 Patient encounter procedure Bessie Ly Gong [facility] Start: 12-29-2023 End: 12-29-2023 Phys/qhp telephone evaluation 5-10 min Katie Yocasta DO Work Phone: [facility] Comment on above: Urinary tract infect ion without hematuria, site unspecified; Vulvar irritation Start: 12-21-2023 End: 12-21-2023 Bamboo flowsheet Radha KAY Work Phone: [facility] Start: 12-21-2023 End: 12-22-2023 Bamboo flowsheet Radha KAY Work Phone: [facility] Start: 12-21-2023 End: 12-22-2023 External Result Encounter Radha KAY Work Phone: [facility] External Department Unsolicited Start: 12-21-2023 End: 12-21-2023 ambulatory RADHA TINSLEY Not Available Start: 12-21-2023 End: 12-21-2023 Office outpatient visit 15 minutes Radha KAY Work Phone: [facility] Comment on above: Vaginal burning; Vaginal itching Start: 10-04-2023 End: 10-04-2023 ambulatory KATIE YOCASTA Not Available Start: 06-30-2023 End: 06-30-2023 ambulatory KATIE YOCASTA Not Available Start: 06-24-2023 End: 06-24-2023 ambulatory VALE HI Not Available Start: 03-23-2023 End: 03-23-2023 ambulatory KATIE YOCASTA Not Available Start: 09-24-[address] JOHN [...] dy response examination DR JOHN PORTER . [facility] Start: 06-26-2022 End: 06-27-[address] [...] Date Procedure Procedure Detail Performing Clinician Start: 05-30-2024 MM TOMOSYNTHESIS SCREENING BI Katie Rust DO Work Phone: Start: 01-07-2024 ALL CBC WITH AUTO DIFF [...] PM EDT Office Visit [facility] [address] [place] [id number] Katie Rust DO [address] [place] [address] [facility] Start: 01-07-2024 End: 01-07-2024 Patient encounter procedure 01/07/2024 9:00 AM EDT Procedure Visit [facility] Katie Rust, DO [address] [facility] [place] [address] [facility] Start: 01-03-2024 End: 01-03-2024 Patient encounter procedure [facility] Comment on above: Arrived Start: 12-29-2023 End: 12-29-2023 Patient encounter procedure [facility] CHLAMYDIA TRACHOMATI S (GENITO/STI) CHLAMYDIA TRACHOMATIS (GENITO/STI) Lab Routine Vaginal burning Vaginal itching Ordered: 12/21/2023 [facility] Comment on above: Ordered: 12/21/2023 Neisseria gonorrhoea e DNA [Presence] in Unspecified specimen by JOLLY with probe detection Neisseria gonorrhea DNA probe, direct Lab Routine Vaginal burning Vaginal itching Ordered: 12/21/2023 [facility] Comment on above: Ordered: 12/21/2023 SURESWAB(R) ADVANCED VAGINITIS PLUS, TMA SURESWAB(R) ADVANCED VAGINITIS PLUS, TMA Pathology and Cytology Routine Vaginal burning Vaginal itching Ordered: 12/21/2023 [facility] Work Phone: Comment on above: Ordered: 12/21/2023 Immunizations Immunization Date Immunization Notes Care Provider Mukesh merritt 10-05-2022 tetanus toxoid, redu heide diphtheria toxoid, and acellular pertussis vaccine, adsorbed Bessie Galea [facility] Payers Date Payer Category Payer Self-pay [id number] 2023 Unknown [id number] 2020 Private Health Insurance [employer] [id number] 2020 Unknown FRONTPATH FRONTP ATH [id number] 2020-Present [phone] [address] [place] [address] [id number]. 2.7.3.800366.315 1965 Unknown [id number] 2.16.840.1.148261.3.579. 2.593 1965 Unknown [id number] 2.16.840.1.128385.3.579. 2.593 1965 Unknown [id number] 2.16.840.1.105231.3.579. 2.593 1965 Unknown [id number] 2.16.840.1.496181.3.579. 2.593 1965 Unknown [id number] 2.16.840.1.710646.3.579. 2.593 1965 Unknown [id number] 2.16.840.1.097530.3.579. 2.593 1965 Unknown [id number] 2.16.840.1.523944.3.579. 2.593 1965 Unknown [id number] 2.16.840.1.821929.3.579. 2.593 1965 Unknown [id number] 2.16.840.1.010675.3.579. 2.593 1965 Unknown [id number] 2.16.840.1.654885.3.579. 2.593 1965 Unknown [id number] 2.16.840.1.153066.3.579. 2.593 1965 Unknown [id number] 2.16.840.1.513999.3.579. 2.593 1965 Unknown [id number] 2.16.840.1.613971.3.579. 2.593 1965 Unknown [id number] 2.16.840.1.932670.3.579. 2.593 1965 Unknown [id number] 2.16.840.1.341369.3.579. 2.593 1965 Unknown [id number] 2.16.840.1.004240.3.579. 2.593 1965 Unknown [id number] 2.16.840.1.203114.3.579. 2.593 1965 Unknown [id number] 2.16.840.1.229367.3.579. 2.593 1965 Unknown [id number] 2.16.840.1.333097.3.579. 2.59 1965 Unknown [id number] 2.16.840.1.704655.3.579. 2.59 1965 Unknown [id number] 2.16.840.1.737220.3.579. 2.593 1965 Unknown [id number] 2.16.840.1.201772.3.579. 2.59 1965 Unknown [id number] 2.16.840.1.343106.3.579. 2.593 1965 Unknown [id number] 2.16.840.1.003637.3.579. 2.593 1965 Unknown [id number] 2.16.840.1.530822.3.579. 2.1259 1965 Unknown [id number] 2.16.840.1.706901.3.579. 2.125 1965 Unknown [id number] 2.16.840.1.332373.3.579. 2.1259 1965 Unknown [id number] 2.16.840.1.128842.3.579. 2.1259 1965 Unknown [id number] 2.16.840.1.536023.3.579. 2.9 1965 Unknown [id number] 2.16.840.1.475486.3.579. 2.9 1965 Unknown [id number] 2.16.840.1.774675.3.579. 2.727 1965 Unknown [id number] 2.16.840.1.254413.3.579. 2.1286 1965 Unknown [id number] 2.16.840.1.343571.3.579. 2.1285 1965 Unknown [id number] 2.16.840.1.840720.3.579. 2.1285 1965 Unknown [id number] 2.16.840.1.227181.3.579. 2.1285 1965 Unknown [id number] 2.16.840.1.835345.3.579. 2.1285 1965 Unknown [id number] 2.16.840.1.407497.3.579. 2.1286 1959 Self-pay [id number] 1959 Unknown [id number] 1959 Unknown [id number] Unknown [id number] 2.16.840.1.009904.3.579. 2.531 Social History Date Type Detail Facility Start: 12-30-2022 End: 12-30-2023 Tobacco smoking status Ex-smoker (finding) [facility] Tobacco smoking status Never [facility] Start: 11-05-2022 End: 12-21-2023 Sex Assigned At Female [facility] Start: 09-05-2013 Tobacco smoking stat us NHIS Never smoked tobacco (finding) [facility] Start: 1965 Sex Assigned At Female [facility] History of tobacco use Current smoker [facility] History of tobacco use Cigarette Smoker [facility] Start: 01-03-2024 End: 01-20-2024 Alcoholic beverage intake Lifetime non-drinker (finding) [facility] Start: 11-05-2022 End: 12-21-2023 History of Social function [facility] Start: 12-30-2022 Alcohol Comment Caffeine: none [facility] Start: 1965 Sex assigned at Not on file N [facility] Functional Status Date Assessment Result Facility 12-30-2023 Functional Status N/A [facility] Clinical Notes 12-21-2023 to 01-20-2024 Deepti Palacios, [facility] - 01/20/2024 11:50 AM EDLuis Palacios, [facility] - 01/03/2024 1:00 PM Carlos Buckley, [facility] - 12/29/2023 8:00 AM ELIZA Leggett - [...] changes 10/28/2022 Generalized anxiety disorder ([facility]/HCC) 03/28/2019 Intermittent vertigo 04/26/2004 Irritable bowel syndrome 08/14/2013 Major depressive disorder, single episode, moderate (HCC) ([facility]) 03/28/2019 Meniere's disease 08/14/2013 Menopausal symptoms 11/17/2016 Menorrhagia 10/28/2022 Other specified hearing loss, right ear 02/25/2016 Pressure in head 04/26/2015 Psychological factors affecting medical condition 11/17/2016 Shoulder joint pain 10/28/2022 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 Exam conducted with a steward/stewardess room present. Vitals: Estimated body mass index is [...] Katie Rust DO documented in this encounter [facility] 01-03-2024 History of Presen t illness Narrative [...] nursing note reviewed. Exam conducted with a steward/stewardess room present. Vitals: Estimated body mass index is [...] reviewed, and patient is to proceed to [facility] OR. Follow Up: Patient is to follow up between 1-2 weeks post operative to assess proper healing and recovery from procedure. Documented by Deepti Palacios LPN on behalf of: Katie Rust DO documented in this encounter [facility] 12-30-2023 Hospital Discharg e instructions Patient Education [...] provider. Document Revised: 08/21/2021 Document Reviewed: 08/21/2021 [employer] Patient Education 2023 [employer]. Follow Up Care 12/02/2023 13:46:26 With:Farideh BARRERA, Bessie Modi, URL Address: When: Unknown Comments:pending imaging and after PFPT [facility] 12-30-2023 Note Patient Education Obstetrics [...] provider. Document Revised: 08/21/2021 Document Reviewed: 08/21/2021 [employer] Patient Education ? 2023 [employer] [facility] 12-29-2023 History of Presen t illness Narrative Reason for Appointment: Patient ID: Yulia Dorsey is a 58 y.o. female who presents for Telehealth, UTI, and kidney stone Patient presents today via telephone call for a telehealth appointment. Patients Phone #: [phone] (mobile) Current Medications: has a current medication list which includes the following prescription(s): vitamin c, calcium carbonate, pdswjil-lqnpzgzup-izmc, airborne elderberry, and multivitamin. Medical History: Active [...] Encounter for screening mammogram for breast cancer 2018 Encounter to discuss procedure Caleb-Fox viral infection [...] Katie Rust DO documented in this encounter [facility] 12-21-2023 History of Presen t illness Narrative [...] changes 10/28/2022 Generalized anxiety disorder ([facility]/HCC) 03/28/2019 Intermittent vertigo 04/26/2004 Irritable bowel syndrome 08/14/2013 Major depressive disorder, single episode, moderate (HCC) ([facility]/HCC) 03/28/2019 Meniere's disease 08/14/2013 Menopausal symptoms 11/17/2016 Menorrhagia 10/28/2022 Other specified hearing loss, right ear 02/25/2016 Pressure in head 04/26/2015 Psychological factors affecting medical condition 11/17/2016 Shoulder joint pain 10/28/2022 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) 11/17/2016 Thickened endometrium 10/28/2022 Viral hepatitis without [...] of: ELIZA Mccollum documented in this encounter [facility] Evaluation + Plan note No data available for this section [facility] Evaluation note No assessment inform ation available [facility] Work Phone: Evaluation note Diagnosis Vaginal burning Other specified symptom associated with female genital organs Vaginal itching Pruritus of genital organs documented in this encounter [facility] Diagnosis Urinary tract infection without hematuria, site unspecified Vulvar irritation documented in this encounter [facility] Healthcare[facility] note* Diagnosis Pre-op examination Yeast infection Thickened endometrium Nonspecific (abnormal) findings on radiological and other examination of genitourinary organs Pelvic pain documented in this encounter [facility] Diagnosis Postoperative visit S/P D&C (status post dilation and curettage) Other postprocedural status documented in this encounter [facility] HealthcareProgress note No data available for this section [facility] Summary Purpose Family History No [...] and content) DATE CREATED AUTHOR 10/02/2022 [facility] DATE CREATED AUTHOR AUTHOR'S ORGANIZ ATION 01/04/2024 [facility] EPIC DATE CREATED AUTHOR AUTHOR'S ORGANIZ ATION 01/09/2024 [facility] DATE CREATED AUTHOR AUTHOR'S ORGANIZ ATION 01/14/2024 [facility] DATE CREATED AUTHOR AUTHOR'S ORGANIZ ATION 07/05/2024 [facility] Patient Care team informatio n (unrecognized section and content) Team Status: Active Member Role Status Dates John Porter MD Primary Care Provider Active Team Status: Inactive Member Role Status Dates John Porter MD Primary Care Provider Active Start: January 07, 2024 End: January 07, 2024 Katie Rust DO Attending Provider Active Start : January 07, 2024 End: January 07, 2024 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 Relationship Specialty Start Date End Date John Porter MD [address] [place] [facility] [place] [address] PCP - General 09/13/22 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 Relationship Specialty Start Date End Date John Porter MD [address] [place] [facility] [place] [address] PCP - General 09/13/22 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 Relationship Specialty Start Date End Date John Porter MD [address] [place] [facility] [place] [address] PCP - General 09/13/22 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 Relationship Specialty Start Date End Date John Porter MD [address] [place] [facility] [place] [address] PCP - General 09/13/22 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 [employer] provides no warranty or guarantee of the accuracy or completeness of information in this document.
--- NOTE | 2024-07-05 17:40 | ED.GENADUL1 ---
HPI HPI - General Adult General Chief complaint: Head Injury Stated complaint: HIT HEAD Time Seen by Provider: 07/05/24 16:53 Source: patient Mode of arrival: walk-in History of Present Illness HPI narrative: The patient is a 58-year-old female with a history of anxiety presenting to the emergency department today after head injury. At 4 PM the patient dropped a dog tree in her home. When she went to stand up after retrieving the dropped items she hit her head on the open cabinet door. The patient did not have any loss of consciousness but hit the vertex of her head. She denies any blurry vision, double vision, loss of vision. No nausea or vomiting. No dizziness. No lightheadedness. Patient however states that she has a history of anxiety and she believes that she has a head bleed. She denies any neck pain or stiffness. No trouble speaking or concentrating. No lateralizing symptoms of weakness. Her headache has improved over the last hour and a half without any treatment. Patient's daughter is a nurse practitioner and she called and consulted with her and was informed to come to the emergency department for further evaluation and care. Patient does have soreness to the top of her head. It is mild to moderate in severity. Touching it makes it worse. Nothing makes it better. No radiation of the pain. Patient states that she does not have a CAT scan she will not be able to sleep. Related Data Home Medications ?Medication ?Instructions ?Recorded ?Confirmed lactobacillus combination no.4 3 3,000 mmu cells PO DAILY 07/19/23 01/07/24 billion cell capsule (Probiotic) multivitamin (Daily Multi-Vitamin 1 tab PO DAILY 07/19/23 01/07/24 tablet) ascorbic acid (vitamin C) 500 mg 500 mg PO DAILY 08/24/23 01/07/24 chewable tablet (Acerola C) alprazolam 0.25 mg tablet 0.25 mg PO BID PRN anxiety 10/26/23 01/07/24 meclizine 25 mg chewable tablet 25 mg PO TID-QID PRN dizziness 10/26/23 01/07/24 (Antivert) cranberry 500 mg capsule 500 mg PO DAILY 01/04/24 01/07/24 d-mannose 500 mg capsule 500 mg PO DAILY 01/04/24 01/07/24 Allergies Allergy/AdvReac Type Severity Reaction Status Date / Time coconut Allergy Swelling Verified 01/07/24 07:29 of Lip/Tongue/Throat erythromycin base (From Allergy Fever Verified 01/07/24 07:29 Erythrocin) imipramine Allergy Hives Verified 01/07/24 07:29 pepper (genus Capsicum) Allergy throat Verified 01/07/24 07:29 swelling Sulfa (Sulfonamide Allergy Hives Verified 01/07/24 07:29 Antibiotics) Opioid HPI Opioid Management Most Recent Opioid Data: No Data to Display Review of Systems ROS Narrative 10 Systems were reviewed, and unless noted in the HPI, all other systems are reviewed, unremarkable, or noncontributory. [facility] PFS Medical History Kidney stones (10/2025) ?N20.0 - Calculus of kidney (ICD-10) Urinary tract infection ?N39.0 - Urinary tract infection, site not specified (ICD-10) PTSD (post-traumatic stress disorder) ?F43.10 - Post-traumatic stress disorder, unspecified (ICD-10) Vitreous detachment ?H43.819 - Vitreous degeneration, unspecified eye (ICD-10) Panic attacks ?F41.0 - Panic disorder [episodic paroxysmal anxiety] (ICD-10) COVID-19 ?U07.1 - COVID-19 (ICD-10) Palpitations ?R00.2 - Palpitations (ICD-10) Sleep apnea ?G47.30 - Sleep apnea, unspecified (ICD-10) Migraine ?G43.909 - Migraine, unspecified, not intractable, without status migrainosus (ICD-10) Caleb Fox infection ?B27.90 - Infectious mononucleosis, unspecified without complication (ICD-10) Chronic fatigue ?R53.82 - Chronic fatigue, unspecified (ICD-10) Chronic bronchitis ?J42 - Unspecified chronic bronchitis (ICD-10) BPPV (benign paroxysmal positional vertigo) ?H81.10 - Benign paroxysmal vertigo, unspecified ear (ICD-10) Anemia ?D64.9 - Anemia, unspecified (ICD-10) Viral hepatitis ?B19.9 - Unspecified viral hepatitis without hepatic coma (ICD-10) 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 - Undifferentiated somatoform disorder (ICD-10) Hearing loss ?H91.90 - Unspecified hearing loss, unspecified ear (ICD-10) Menorrhagia ?N92.0 - Excessive and frequent menstruation with regular cycle (ICD-10) M?ni?re's disease ?H81.09 - Meniere's disease, unspecified ear (ICD-10) Depression ?F32.A - Depression, unspecified (ICD-10) Irritable bowel syndrome ?K58.9 - Irritable bowel syndrome without diarrhea (ICD-10) Vertigo ?R42 - Dizziness and giddiness (ICD-10) Cervical disc disorder ?M50.90 - Cervical disc disorder, unspecified, unspecified cervical region (ICD-10) Tinnitus ?H93.19 - Tinnitus, unspecified ear (ICD-10) Anxiety ?F41.9 - Anxiety disorder, unspecified (ICD-10) GERD (gastroesophageal reflux disease) ?K21.9 - Gastro-esophageal reflux disease without esophagitis (ICD-10) Pelvic pain ?R10.2 - Pelvic and perineal pain (ICD-10) Thickened endometrium ?R93.89 - Abnormal findings on diagnostic imaging of other specified body structures (ICD-10) Surgical History History of esophagogastroduodenoscopy (EGD) ?Z98.890 - Other specified postprocedural states (ICD-10) S/P wisdom tooth extraction ?Z98.818 - Other dental procedure status (ICD-10) Hx of tonsillectomy ?Z90.89 - Acquired absence of other organs (ICD-10) History of hysteroscopy ?Z98.890 - Other specified postprocedural states (ICD-10) History of cholecystectomy ?Z90.49 - Acquired absence of other specified parts of digestive tract (ICD-10) Family History Other Family history of cancer Family history of coronary artery disease Family history of diabetes mellitus Family history of hypertension Family history of stroke Heart disease Social History Within the past year, how often did you have a drink containing alcohol: monthly or less Smoking status: Never smoker Non-prescribed substance use: denies use 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 Prior to touching the patient, I asked for consent to examine the patient.? General: Alert and oriented, well nourished, mild distress. Eye: PERRL, EOMI, normal conjunctiva. No vertical or horizontal nystagmus. HENT: Normocephalic, normal hearing, moist oral mucosa, no scleral icterus, no sinus tenderness. Tympanic membranes are not red, dull, bulging. Patient does not have any hemotympanum or septal hematoma. Neck: Supple, non-tender, no carotid bruits, no JVD, no lymphadenopathy. No midline neck tenderness. Lungs: Clear to auscultation and percussion, non-labored respiration. Heart: Normal rate, regular rhythm, no murmur, gallop or edema. Abdomen: Soft, non-tender, non-distended, normal bowel sounds, no masses. Musculoskeletal: Normal range of motion and strength, no tenderness or swelling. Skin: Skin is warm, dry and pink, no rashes or lesions. Patient does have a very scant amount of pinkness ecchymosis in the vertex of her head. There is no fluctuant hematoma present. Tender to palpation. Neurologic: Awake, alert, and oriented X3, CN II-XII intact. GCS 15. Patient can walk heel-to-toe without problems. She can walk on her toes without problems. She can walk on her heels without problems. She has a negative Romberg sign. She can balance on her right foot. She can balance on her left foot. Psychiatric: Cooperative, appropriate mood and affect.? Definitely anxious in appearance. Following the conclusion of the examination, I have washed my hands thoroughly after removing examination gloves. Constitutional Vital Signs, click to edit/add: Last Vital Signs Temp 98.2 F 07/05/24 16:49 Pulse 78 07/05/24 16:49 Resp 18 07/05/24 16:49 BP 160/80 H 07/05/24 16:49 Pulse Ox 98 07/05/24 16:49 O2 Del Method Room Air 07/05/24 16:49 Course Course Hospital Course: In summary, the patient is a 58-year-old female presenting to the emergency department after head injury. She does not take blood thinners. We had joint decision making and although I do not think that the patient has a bleed in her head the patient is extremely anxious and I think that could potentially cause anxiety related to medical complaint even if it is negative. Risk versus benefits were explained to the patient and she would like a noncontrasted CT scan of the brain. Reevaluation(s) Reevaluation #1: Patient returned from CT and has no further complaints at this time. Time: 17:44 Reevaluation #2: Patient was informed of her negative CT findings. She will be discharged home and to return if symptoms worsen or change. All questions were answered to her satisfaction. Time: 17:56 Vital Signs Vital signs: Vital Signs Temperature 98.2 F 07/05/24 16:49 Pulse Rate 78 07/05/24 16:49 Respiratory Rate 18 07/05/24 16:49 Blood Pressure 160/80 H 07/05/24 16:49 Pulse Oximetry 98 07/05/24 16:49 Oxygen Delivery Method Room Air 07/05/24 16:49 Temperature 98.2 F 07/05/24 16:49 Pulse Rate 78 07/05/24 16:49 Respiratory Rate 18 07/05/24 16:49 Blood Pressure 160/80 H 07/05/24 16:49 Pulse Oximetry 98 07/05/24 16:49 Oxygen Delivery Method Room Air 07/05/24 16:49 Medical Decision Making [facility] Narrative Medical decision making narrative: Joint decision making to obtain a CT scan of the brain. If it is negative she will go home with instructions for closed head injury. Patient has no evidence of concussion at this time. Differential Diagnosis Differential Diagnosis: Intracranial hemorrhage, contusion, hematoma, concussion Medical Records Medical records reviewed: Yes I reviewed the patient's medical records Imaging Data CT scan - head: Attestation: I have reviewed the pertinent imaging results. Radiologist's impression: Impression: No acute intracranial abnormality Discharge Plan Discharge Chief Complaint: Head Injury Clinical Impression: Closed head injury Patient Disposition: Home, Self-Care Time of Disposition Decision: 17:56 Condition: Good Mode of Transportation: Private Vehicle Prescriptions / Home Meds: No Action multivitamin [Daily Multi-Vitamin] Tablet 1 tab PO DAILY Probiotic 3 billion cell capsule 3,000 mmu cells PO DAILY Rx Instructions: administer with a meal ascorbic acid (vitamin C) [Acerola C] 500 mg tablet,chewable 500 mg PO DAILY alprazolam 0.25 mg tablet 0.25 mg PO BID PRN (Reason: anxiety) meclizine [Antivert] 25 mg tablet,chewable 25 mg PO TID-QID PRN (Reason: dizziness) cranberry 500 mg capsule 500 mg PO DAILY Rx Instructions: administer with a meal d-mannose 500 mg capsule 500 mg PO DAILY Print Language: Cameroonian Instructions: Head Injury (ED) Additional Instructions: Thank you for trusting me with your medical care. I hope it exceeded her expectations as a provider. If your symptoms change please return to the ER symptoms for further evaluation and treatment. Referrals: Estiven Porter MD [Primary Care Provider] - 1 week Discharge Date/Time: 07/05/24 18:01
== END 2024-07-05 18:01 | disposition home or self-care (01) ==
PROVIDERS: Emergency Provider Emergency Medicine; PCP Family Medicine
DX: S09.8XXA Other specified injuries of head, initial encounter (principal); W22.09XA Striking against other stationary object, initial encounter; F41.9 Anxiety disorder, unspecified; Z90.49 Acquired absence of other specified parts of digestive tract
CPT/HCPCS: 70450; 99284

== ENCOUNTER 2024-08-03 10:14 | Outpatient (OUT) | payer OTHER, SELFPAY ==
--- OUTSIDE RECORDS SUMMARY | 2024-08-03 10:26 | XMS_ITS | CCD ---
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 Name Role Phone ABELINOY ., DR LOPEZ [...] Unavailable YOCASTA ., DR WILSON Admitting Unavailable YOCASAT ., DR WILSON Attending Unavailable HOY ., [...] Unavailable YOCASTA ., DR WILSON Attending Unavailable [place], DR ELLYN Dougherty Consulting Unavailable HOY ., [...] Unavailable HOY ., DR LOPZE Admitting Unavailable HOY ., DR LOPEZ Attending [...] Unavailable MD John Porter Primary Care Provider [phone] Katie Rust Attending Provider [phone] Bessie Gong Attending Unavailable Hoy, John M Primary Care Unavailable Yocasta, Katie Attending Unavailable Yocasta, Katie Admitting Unavailable Abelinoy John MCKINNON Primary Care Provider [phone] IRIS GABRIEL Attending Unavailable HOY, JOHN [...] Unavailable HOY, JOHN M Referring Unavailable HOY, JONH M Primary Care Unavailable IRIS GABRIEL Attending Unavailable HOY, JOHN M Referring Unavailable HOY, JOHN M Primary Care Unavailable Allergies Allergy Classification Reported Allergen(s) Allergy Type Date of Onset Reaction(s) Facility (1 source) Azithromycin Drug Allergy 12-21-19 22 [facility] (4 sources) Imipramine; Translations: [IMIPRAMINE] Drug Allergy 10-06-19 13 hallucinations [facility] (2 sources) Sulfonamides (Antibiotic) Drug allergy (disorder) 10-06-19 13 [facility] (2 sources) E.E.S. Drug allergy (disorder) 10-06-19 13 [facility] (17 sources) Erythromycin; Translations: [erythromycin] Drug Allergy 02-25-20 16 Unknown (qualifier value), Other [facility] (16 sources) Imipramine; Translations: [imipramine] Drug Allergy 02-25-20 16 Unknown (qualifier value), Other [facility] (2 sources) Sulfonamides (Antibiotic); Translations: [sulfa drugs] Drug allergy Unknown (qualifier value) [facility] (3 sources) Sulfonamides (Antibiotic); Translations: [Sulfa (Sulfonamide Antibiotics)] Allergy to substance 09-12-19 [facility] (16 sources) erythromycin base; Translations: [erythromycin base] Allergy to substance 12-02-19 [facility] (1 source) Imipramine Drug Allergy 12-02-19 [facility] (14 sources) Sulfonamides (Antibiotic) Drug Intolerance 02-25-20 Rash [facility] (3 sources) Ciprofloxacin Drug Allergy 01-20-20 [facility] Medications Current Medications Medication Drug [...] 01-03-2024 Episodic Other aftercare (4 sources) 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 Ordering Physician: Katie Rust D.O. Results: Date of Service: 05/30/24 Follow Up: Procedure(s): MM tomosynthesis screening BI Accession Number(s): [id number] cc: Katie Rust D.O.; John Porter M.D. Patient Name: YULIA DORSEY MR#: [id number] : 1965 Exam Date: 05/30/2024 Ordering Doctor: [...] breast cancer at age 40. LOCATION: [facility] BREAST COMPOSITION: The breasts are almost entirely [...] Signed By: 05/30/24 1635 DD/ 1634 TD/TT: Senior Asic Design Engineer: [facility] Radiology, Radiologist, MD - 05/30/2024 [place] [address] Mammography Report Signed Patient: YULIA DORSEY MR#: [id number] : 1965 Acct:[id number] Age/Sex: 58 / F ADM Date: 05/30/24 Loc: MAMMO Attending Dr: Katie Rust D.O. Ordering Physician: Katie Rust D.O. Results: Date of Service: 05/30/24 Follow Up: Procedure(s): MM tomosynthesis screening BI Accession Number(s): [id number] cc: Katie Rust D.O.; John Porter M.D. Patient Name: YULIA DORSEY MR#: [id number] : 1965 Exam Date: 05/30/2024 Ordering Doctor: [...] breast cancer at age 40. LOCATION: [facility] BREAST COMPOSITION: The breasts are almost entirely [...] M.D. Signed By: 05/30/241634 DD/ 33 TD/TT: Senior Asic Design Engineer: [facility] Radiology Study observation (narrative) [facility] MM TOMOSYNTHESIS SCREENING B IOrdered By: Radiologist Radiology on 05-30-2024 [facility] Work Phone: ALL CBC WITH AUTO DIFFon BASOPHILS ABSOLUTE AUTO 0.0 [facility] Basophils/100 WBC (Bld) 0.8 % 0.2 - 2.0 % [facility] Eosinophils/100 WBC (Bld) 1.9 % 0.9 - 7.0 % [facility] Erythrocyte distribution width (RBC) [Ratio] 13.4 % 11.0 - 15.0 % [facility] Hematocrit (Bld) [Volume fraction] 43.1 % 36.0 - 48.0 % [facility] Hemoglobin (Bld) [Mass/Vol] 13.9 g/dL 12.0 - 16.0 g/dL [facility] IMMATURE GRANULOCYTES ABS AUTO 0.01 [facility] Immature granulocytes/100 WBC (Bld) 0.2 % 0.0 - 0.5 % [facility] LYMPHOCYTES ABSOLUTE AUTO 1.7 [facility] Lymphocytes/100 WBC (Bld) 32.9 % 20.5 - 60.0 % [facility] MCH (RBC) [Entitic mass] 28.8 pg 26.7 - 34.0 pg [facility] MCHC (RBC) [Mass/Vol] 32.3 g/dL 29.9 - 35.2 g/dL [facility] MCV (RBC) [Entitic vol] 89.2 fL 81.0 - 99.0 fL [facility] MONOCYTES ABSOLUTE AUTO 0.5 [facility] Monocytes/100 WBC (Bld) 9.6 % 1.7 - 12.0 % [facility] NEUTROPHILS ABSOLUTE AUTO 2.8 [facility] Neutrophils/100 WBC (Bld) 54.6 % 43.0 - 75.0 % [facility] Platelet mean volume (Bld) [Entitic vol] 9.7 fL 9.5 - 13.5 fL [facility] EO # 0.1 [facility] PLT 291 [facility] RBC 4.83 [facility] WBC 5.1 [facility] 01-07-2024 L Specimen: [id number] Received: 01/07/24 Status: LAWSON Megan Num: [id number] Spec Type: Surgical Subm Dr: Katie Rust Tissues: A Endometrial Polyp (ENOMETRIAL POLYP AND CURETTI) Procedures: HE/2, Gross/Micro L4 Age/ Patient Sex Location Account Attending Physician Gen Willianrenee Meenakshi 58/F LABELL [id number] Katie Rust SPEC NUM: [id number] RECD: 01/07/24 STATUS: LAWSON GUZMAN NUM: [id number] TIMOTHY: 01/07/[address]: Katie Rust ENTERED: 01/07/24 [facility] DR: Cristhian,Lab SPEC TYPE: Surgical DEPT: BIANCA VANN ENTERED BY: [id number] RECV BY: [id number] ORDERED: HE/2, Gross/Micro L4 ORDERED: HE/2, Gross/Micro [...] is entirely submitted cassette A1. CPT Codes 80506 -------- -------- Specimen: [id number] Received: 01/07/24-134 Status: LAWSON Guzman Num: [id number] Spec Type: Surgical Subm Dr: Katie Rust Tissues: A Endometrial Polyp (ENOMETRIAL POLYP AND CURETTI) Procedures: HE/2, Gross/Micro L4 -------- Patient: Yulia Dorsey [id number] (Continued) -------- Signed (signature on file) Tammie Mcclellan MD 01/13/24 1606 Normal [facility] Patient Letter FTon 2023 Patient Letter [facility] [place] [facility] January 07, 2024 YULIA [place] [address] : 1965 Dear Yulia Dorsey, We have been trying to reach you with no success. It is important that you return our call upon receiving this letter. Also, at the time of your call, please provide us with your current information. Thank you for your prompt attention to this matter. Sincerely, [facility] [address] [place] [address] [facility] Ambulatory Visit Summaryon 0 12-30-2023 Ambulatory Visit [...] you for choosing us for your care. [facility] Provider Letteron 12-30-2023 Provider Letter Provider Letter December 30, 2023 YULIA DORSEY [address] [place] [address] : 1965 To Whom It May Concern, Please excuse above patient from work. 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 Porter for recurrent UTI [...] she went to an urgent care in [facility] who started her on Augmentin for [...] E&M of New Patient High 60-74 Min 56447 2. Kidney stones (N20.0: Calculus of kidney) [...] (more content not included)... Normal [facility] Comment on above: Result Comment: Elec tronically Signed By: Farideh BARRERA, Bessie Modi\.br\Date and Time Signed: 12/30/23 15:22 EDT URETHRITIS/DISCHARGE PLUS VA GINITIS (HTRX)on 12-22-2023 ATOPOBIUM VAGINAE 0.000 [facility] ATOPOBIUM VAGINAE Not detected [facility] BVAB 2,3 (BACTERIAL VAGINOSIS ASSOCIATED BACTERIA 2, 3); MOBILUNCUS SPP 0.000 [facility] BVAB 2,3 (BACTERIAL VAGINOSIS ASSOCIATED BACTERIA [...] : DR KATIE RUST . Admission #: [id number] Family : Order #: [id number] CLICK HERE TO VIEW EXAM RADIOLOGY REPORT [...] breast cancer at age 40. LOCATION: [facility] BREAST COMPOSITION: Almost entirely fatty. [...] MD on 09/22/2022 at 15:03 Normal [facility] US BREAST RIGHT LIMITEDon US BREAST RIGHT LIMITED Patient: YULIA DORSEY Exam Date: 09/22/2022 : 1965 Gender:F Ordering : DR KATIE RUST . Admission #: [id number] Family : Order #: [id number] CLICK HERE TO VIEW EXAM RADIOLOGY REPORT [...] breast cancer at age 40. LOCATION: [facility] BREAST COMPOSITION: Almost entirely fatty. [...] MD on 09/22/2022 at 15:03 Normal [facility] US ST HEAD_NECKon 08-31-2022 US [...] GABO STRONG Date: 2022-07-29 06:32 Normal [facility] INSULINon 07-04-2022 Insulin 6.2 uIU/mL Normal 2.6-24.9 [facility] Comment on above: Performed By: #### H STROPN, CMP #### [facility] [address] [place] [address] Dr. Judd Andrade CBC AUTO DIFFon 07-03-2022 BASO # 0.0 103/ul Normal 0.0-0.1 [facility] Comment on above: Performed By: #### C BC #### [facility] [address] [place] [address] Dr. Judd Andrade Basophils/100 WBC (Bld) 1.1 % Normal 0.2-2.0 [facility] Comment on above: Performed By: #### C BC #### [facility] [address] [place] [address] Dr. Judd Andrade EO # 0.1 103/ul Normal 0.0-0.7 [facility] Comment on above: Performed By: #### C BC #### [facility] [address] [place] [address] Dr. Judd Andrade Eosinophils/100 WBC (Bld) 3.6 % Normal 0.9-7.0 [facility] Comment on above: Performed By: #### C BC #### [facility] [address] [place] [address] Dr. Judd Andrade Erythrocyte distribution width (RBC) [Ratio] 13.6 % Normal 11.0-15.0 [facility] Comment on above: Performed By: #### C BC #### [facility] [address] [place] [address] Dr. Judd Andrade Hematocrit (Bld) [Volume fraction] 41.8 % Normal 36.0-48.0 [facility] Comment on above: Performed By: #### C BC #### [facility] [address] [place] [address] Dr. Judd Andrade Hemoglobin (Bld) [Mass/Vol] 13.5 g/dL Normal 12.0-16.0 [facility] Comment on above: Performed By: #### C BC #### [facility] [address] [place] [address] Dr. Judd Andrade IG # 0.01 10e3/ul Normal 0.00-0.03 [facility] Comment on above: Performed By: #### C BC #### [facility] [address] [place] [address] Dr. Judd Andrade IG % 0.3 % Normal 0.0-0.5 [facility] Comment on above: Performed By: #### C BC #### [facility] [address] [place] [address] Dr. Judd Andrade LYMPH # 1.4 103/ul Normal 1.2-3.8 [facility] Comment on above: Performed By: #### C BC #### [facility] [address] [place] [address] Dr. Judd Andrade Lymphocytes/100 WBC (Bld) 38.4 % Normal 20.5-60.0 [facility] Comment on above: Performed By: #### C BC #### [facility] [address] [place] [address] Dr. Judd Andrade MANUAL DIFF REQ NO Normal [facility] Comment on above: Performed By: #### C BC #### [facility] [address] [place] [address] Dr. Judd Andrade MCH (RBC) [Entitic mass] 28.2 pg Normal 26.7-34.0 [facility] Comment on above: Performed By: #### C BC #### [facility] [address] [place] [address] Dr. Judd Andrade MCHC (RBC) [Mass/Vol] 32.3 g/dL Normal 29.9-35.2 [facility] Comment on above: Performed By: #### C BC #### [facility] [address] [address] [address] Judd Andrade MCV (RBC) [Entitic vol] 87.4 fL Normal 81.0-99.0 [facility] Comment on above: Performed By: #### C BC #### [facility] [address] [address] [address] Judd Andrade MONO # 0.4 103/ul Normal 0.3-0.8 [facility] Comment on above: Performed By: #### C BC #### [facility] [address] [place] [address] Dr. Judd Andrade Monocytes/100 WBC (Bld) 10.4 % Normal 1.7-12.0 [facility] Comment on above: Performed By: #### C BC #### [facility] [address] [place] [address] Dr. Judd Andrade NEUT # 1.7 103/ul Normal 1.4-6.5 [facility] Comment on above: Performed By: #### C BC #### [facility] [address] [place] [address] Dr. Judd Andrade Neutrophils/100 WBC (Bld) 46.2 % Normal 43.0-75.0 [facility] Comment on above: Performed By: #### C BC #### [facility] [address] [place] [address] Dr. Judd Andrade Platelet mean volume (Bld) [Entitic vol] 9.6 fL Normal 9.5-13.5 [facility] Comment on above: Performed By: #### C BC #### [facility] [address] [place] [address] Dr. Judd Andrade PLT 246 103/ul Normal 150-450 [facility] Comment on above: Performed By: #### C BC #### [facility] [address] [place] [address] Dr. Judd Andrade RBC 4.78 106/ul Normal 4.20-5.40 [facility] Comment on above: Performed By: #### C BC #### [facility] [address] [address] [address] Judd Andrade WBC 3.7 103/ul Critically low 4.0-11.0 [facility] Comment on above: Performed By: #### C BC #### [facility] [address] [place] [address] Dr. Judd Andrade FREE THYROXINE INDEX T7on FTI 3.20 Normal 1.30-4.50 [facility] Comment on above: Performed By: #### T 7, LIPID, TSH, CMP #### [facility] [address] [address] [address] Judd Andrade T3U 36.0 % Normal 30.0-39.0 [facility] Comment on above: Performed By: #### T 7, LIPID, TSH, CMP #### [facility] [address] [place] [address] Dr. Judd Andrade T4 [Mass/Vol] 8.90 ug/dL Normal 4.80-13.90 [facility] Comment on above: Performed By: #### T 7, LIPID, TSH, CMP #### [facility] [address] [place] [address] Dr. Judd Andrade GLYCOHEMOGLOBIN A1Con 2022 ADA RECOMMENDATION SEE BELOW Normal [facility] Comment on above: Result Comment: ADA RECOMMENDED LIMIT 4.0 - 6.0 ADA THERAPEUTIC TARGET < 7.0 ACTION SUGGESTED > 7.0 Performed By: #### C BC #### [facility] [address] [place] [address] Dr. Judd Andrade Glucose [Mass/Vol] 120 mg/dL Normal [facility] Comment on above: Performed By: #### C BC #### [facility] [address] [place] [address] Dr. Judd Andrade HbA1c (Bld) [Mass fraction] 5.8 % Normal 4.5-6.2 [facility] Comment on above: Performed By: #### C BC #### [facility] [address] [place] [address] Dr. Judd Andrade IRONon 07-03-2022 Iron [Mass/Vol] 67.0 ug/dL Normal 50.0-170.0 [facility] Comment on above: Performed By: #### V ITAD, IRON #### [facility] [address] [address] [address] Judd Andrade LIPID PROFILEon 07-03-2022 CHOL-HDL RATIO NORM SEE BELOW Normal [facility] Comment on above: Result Comment: 3.3 - 4.4 LOW RISK 4.4 - 7.1 AVERAGE RISK 7.1 - 11.0 MODERATE RISK >11.0 HIGH RISK Performed By: #### T 7, LIPID, TSH, CMP #### [facility] [address] [address] [address] Judd Andrade Cholesterol [Mass/Vol] 216 mg/dL Critically high <=200 [facility] Comment on above: Performed By: #### T 7, LIPID, TSH, CMP #### [facility] [address] [address] [address] Judd Andrade Cholesterol in HDL [Mass/Vol] 87 mg/dL Critically high 40-60 [facility] Comment on above: Performed By: #### T 7, LIPID, TSH, CMP #### [facility] [address] [address] [address] Judd Andrade Cholesterol in LDL [Mass/Vol] 124.2 mg/dL Normal [facility] Comment on above: Performed By: #### T 7, LIPID, TSH, CMP #### [facility] [address] [address] [address] Judd Andrade Cholesterol.total/C holesterol in HDL [Mass ratio] 2.5 {ratio} Normal [facility] Comment on above: Performed By: #### T 7, LIPID, TSH, CMP #### [facility] [address] [address] [address] Judd Andrade HDL NORMAL > or = 60 mg/dl - LO W CARDIOVASCULAR RISK <40 mg/dl - HIGH CARDIOVASCULAR RISK Normal [facility] Comment on above: Performed By: #### T 7, LIPID, TSH, CMP #### [facility] [address] [place] [address] Dr. Judd Andrade LDL CALC NORMAL SEE BELOW Normal [facility] Comment on above: Result Comment: <100 mg/dl OPTIMAL 100 - 129 mg/dl NEAR OR ABOVE OPTIMAL 130 - 159 mg/dl BORDERLINE HIGH 160 - 189 mg/dl HIGH >190 mg/dl VERY HIGH Performed By: #### T 7, LIPID, TSH, CMP #### [facility] [address] [address] [address] Judd Andrade Triglyceride [Mass/Vol] 24 mg/dL Normal <=150 [facility] Comment on above: Performed By: #### T 7, LIPID, TSH, CMP #### [facility] [address] [place] [address] Dr. Judd Andrade VLDL CALC 4.8 mg/dL Normal [facility] Comment on above: Performed By: #### T 7, LIPID, TSH, CMP #### [facility] [address] [place] [address] Dr. Judd Andrade PROF 14(COMP METB)on 023 Albumin [Mass/Vol] 4.0 g/dL Normal 3.4-5.0 [facility] Comment on above: Performed By: #### T 7, LIPID, TSH, CMP #### [facility] [address] [place] [address] Dr. Judd Andrade Albumin/Globulin [Mass ratio] 1.1 {ratio} Normal [facility] Comment on above: Performed By: #### T 7, LIPID, TSH, CMP #### [facility] [address] [place] [address] Dr. Judd Andrade ALP [Catalytic activity/Vol] 78 U/L Normal 46-116 [facility] Comment on above: Performed By: #### T 7, LIPID, TSH, CMP #### [facility] [address] [place] [address] Dr. Judd Andrade ALT [Catalytic activity/Vol] 29 U/L Normal 14-59 [facility] Comment on above: Performed By: #### T 7, LIPID, TSH, CMP #### [facility] [address] [address] [address] Judd Andrade Anion gap [Moles/Vol] 5.6 mmol/L Normal [facility] Comment on above: Performed By: #### T 7, LIPID, TSH, CMP #### [facility] [address] [address] [address] Judd Andrade AST [Catalytic activity/Vol] 23 U/L Normal 15-37 [facility] Comment on above: Performed By: #### T 7, LIPID, TSH, CMP #### [facility] [address] [place] [address] Dr. Judd Andrade Bilirubin [Mass/Vol] 0.5 mg/dL Normal 0.2-1.0 [facility] Comment on above: Performed By: #### T 7, LIPID, TSH, CMP #### [facility] [address] [place] [address] Dr. Judd Andrade Calcium [Mass/Vol] 8.9 mg/dL Normal 8.5-10.1 [facility] Comment on above: Performed By: #### T 7, LIPID, TSH, CMP #### [facility] [address] [address] [address] Judd Andrade Chloride [Moles/Vol] 105 mmol/L Normal 98-107 [facility] Comment on above: Performed By: #### T 7, LIPID, TSH, CMP #### [facility] [address] [place] [address] Dr. Judd Andrade CO2 [Moles/Vol] 32.0 mmol/L Normal 21.0-32.0 [facility] Comment on above: Performed By: #### T 7, LIPID, TSH, CMP #### [facility] [address] [address] [address] Judd Andrade Creatinine [Mass/Vol] 0.52 mg/dL Critically low 0.55-1.02 [facility] Comment on above: Performed By: #### T 7, LIPID, TSH, CMP #### [facility] [address] [address] [address] Judd Andrade EGFR-AF MALAWIAN >60 Normal >=60 [facility] Comment on above: Performed By: #### T 7, LIPID, TSH, CMP #### [facility] [address] [address] [address] Judd Andrade EGFR-NON AF MALAWIAN >60 Normal >=60 [facility] Comment on above: Performed By: #### T 7, LIPID, TSH, CMP #### [facility] [address] [address] [address] Judd Andrade Globulin (S) [Mass/Vol] 3.6 g/dL Normal [facility] Comment on above: Performed By: #### T 7, LIPID, TSH, CMP #### [facility] [address] [address] [address] Judd Andrade Glucose [Mass/Vol] 89 mg/dL Normal 74-106 [facility] Comment on above: Performed By: #### T 7, LIPID, TSH, CMP #### [facility] [address] [place] [address] Dr. Judd Andrade Potassium [Moles/Vol] 4.2 mmol/L Normal 3.5-5.1 [facility] Comment on above: Performed By: #### T 7, LIPID, TSH, CMP #### [facility] [address] [place] [address] Dr. Judd Andrade Protein [Mass/Vol] 7.6 g/dL Normal 6.4-8.2 [facility] Comment on above: Performed By: #### T 7, LIPID, TSH, CMP #### [facility] [address] [address] [address] Judd Andrade Sodium [Moles/Vol] 139 mmol/L Normal 136-145 [facility] Comment on above: Performed By: #### T 7, LIPID, TSH, CMP #### [facility] [address] [place] [address] Dr. Judd Andrade Urea nitrogen [Mass/Vol] 11.0 mg/dL Normal 7.0-18.0 [facility] Comment on above: Performed By: #### T 7, LIPID, TSH, CMP #### [facility] [address] [place] [address] Dr. Judd Andrade Urea nitrogen/Creatinine [Mass ratio] 21.2 mg/mg Normal [facility] Comment on above: Performed By: #### T 7, LIPID, TSH, CMP #### [facility] [address] [place] [address] Dr. Judd Andrade TSHon 07-03-2022 TSH 1.037 uIU/mL Normal 0.358-3.740 [facility] Comment on above: Performed By: #### T 7, LIPID, TSH, CMP #### [facility] [address] [place] [address] Dr. Judd Andrade VITAMIN D 25 OHon 07-03-2022 VIT D 25-OH 32.8 ng/mL Normal [facility] Comment on above: Performed By: #### V CARMELO, IRON #### [facility] [address] [place] [address] Dr. Judd Andrade VIT D RANGES SEE BELOW Normal [facility] Comment on above: Result Comment: <20 ng/mL Vit D deficient 20 - <30 ng/mL Vit D insufficient 30 - 100 ng/mL Vit D sufficient >100 ng/mL Potential Toxicity Performed By: #### V CARMELO, IRON #### [facility] [address] [place] [address] Dr. Judd Andrade BORDETELLA PERTUSSIS AB IGGo n 06-30-2022 B pertussis IgG Ab 3.88 index Invalid Interpretation Code 0.00-0.94 [facility] Comment on above: Result Comment: Clie nt Requested Flag Negative <0.95 Equivocal 0.95 - 1.04 Positive >1.04 Performed By: #### C BC #### [facility] [address] [place] [address] Dr. Judd Andrade BORDETELLA PERTUSSIS AB IGMo n 06-30-2022 B pertussis IgM Ab <1.0 Normal 0.0-0.9 [facility] Comment on above: Result Comment: Nega tive <1.0 Borderline 1.0 - 1.1 Positive >1.1 Performed By: #### H STROPN, CMP #### [facility] [address] [place] [address] Dr. Judd Andrade [id number] 2022 [id number] , Serum 158 mg/dL Normal 101-187 [facility] Comment on above: Performed By: #### C BC #### [facility] [address] [address] [address] Judd Andrade CBC AUTO DIFFon 06-03-2022 BASO # 0.0 103/ul Normal 0.0-0.1 [facility] Comment on above: Performed By: #### H STROPN, CMP #### [facility] [address] [address] [address] Judd Andrade Basophils/100 WBC (Bld) 0.6 % Normal 0.2-2.0 [facility] Comment on above: Performed By: #### H STROPN, CMP #### [facility] [address] [address] [address] Judd Andrade EO # 0.0 103/ul Normal 0.0-0.7 [facility] Comment on above: Performed By: #### H STROPN, CMP #### [facility] [address] [address] [address] Judd Andrade Eosinophils/100 WBC (Bld) 0.6 % Critically low 0.9-7.0 [facility] Comment on above: Performed By: #### H STROPN, CMP #### [facility] [address] [address] [address] Judd Andrade Erythrocyte distribution width (RBC) [Ratio] 13.5 % Normal 11.0-15.0 [facility] Comment on above: Performed By: #### H STROPN, CMP #### [facility] [address] [address] [address] Judd Andrade Hematocrit (Bld) [Volume fraction] 42.4 % Normal 36.0-48.0 [facility] Comment on above: Performed By: #### H STROPN, CMP #### [facility] [address] [address] [address] Judd Andrade Hemoglobin (Bld) [Mass/Vol] 13.4 g/dL Normal 12.0-16.0 [facility] Comment on above: Performed By: #### H STROPN, CMP #### [facility] [address] [place] [address] Dr. Judd Andrade IG # 0.01 10e3/ul Normal 0.00-0.03 [facility] Comment on above: Performed By: #### H STROPN, CMP #### [facility] [address] [place] [address] Dr. Judd Andrade IG % 0.2 % Normal 0.0-0.5 [facility] Comment on above: Performed By: #### H STROPN, CMP #### [facility] [address] [place] [address] Dr. Judd Andrade LYMPH # 1.1 103/ul Critically low 1.2-3.8 [facility] Comment on above: Performed By: #### H STROPN, CMP #### [facility] [address] [place] [address] Dr. Judd Andrade Lymphocytes/100 WBC (Bld) 23.5 % Normal 20.5-60.0 [facility] Comment on above: Performed By: #### H STROPN, CMP #### [facility] [address] [place] [address] Dr. Judd Andrade MANUAL DIFF REQ NO Normal [facility] Comment on above: Performed By: #### H STROPN, CMP #### [facility] [address] [place] [address] Dr. Judd Andrade MCH (RBC) [Entitic mass] 28.9 pg Normal 26.7-34.0 [facility] Comment on above: Performed By: #### H STROPN, CMP #### [facility] [address] [place] [address] Dr. Judd Andrade MCHC (RBC) [Mass/Vol] 31.6 g/dL Normal 29.9-35.2 [facility] Comment on above: Performed By: #### H STROPN, CMP #### [facility] [address] [place] [address] Dr. Judd Andrade MCV (RBC) [Entitic vol] 91.6 fL Normal 81.0-99.0 [facility] Comment on above: Performed By: #### H DEB, CMP #### [facility] [address] [place] [address] Dr. Judd Andrade MONO # 0.8 103/ul Normal 0.3-0.8 [facility] Comment on above: Performed By: #### H DEB, CMP #### [facility] [address] [place] [address] Dr. Judd Andrade Monocytes/100 WBC (Bld) 16.5 % Critically high 1.7-12.0 [facility] Comment on above: Performed By: #### H DEB, CMP #### [facility] [address] [place] [address] Dr. Judd Andrade NEUT # 2.7 103/ul Normal 1.4-6.5 [facility] Comment on above: Performed By: #### H DEB, CMP #### [facility] [address] [place] [address] Dr. Judd Andrade Neutrophils/100 WBC (Bld) 58.6 % Normal 43.0-75.0 [facility] Comment on above: Performed By: #### H DEB, CMP #### [facility] [address] [place] [address] Dr. Jdud Andrade Platelet mean volume (Bld) [Entitic vol] 9.8 fL Normal 9.5-13.5 [facility] Comment on above: Performed By: #### H DEB, CMP #### [facility] [address] [place] [address] Dr. Judd Andrade PLT 252 103/ul Normal 150-450 [facility] Comment on above: Performed By: #### H TERAPN, CMP #### [facility] [address] [place] [address] Dr. Judd Andrade RBC 4.63 106/ul Normal 4.20-5.40 [facility] Comment on above: Performed By: #### H DEB, CMP #### [facility] [address] [place], [place] [id number] Dr. Judd Andrade WBC 4.7 103/ul Normal 4.0-11.0 [facility] Comment on above: Performed By: #### H DEB, CMP #### [facility] [address] [place] [address] Dr. Judd Andrade PROF 14(COMP METB)on 023 Albumin [Mass/Vol] 4.0 g/dL Normal 3.4-5.0 [facility] Comment on above: Performed By: #### H TERAPN, CMP #### [facility] [address] [place] [address] Dr. Judd Andrade Albumin/Globulin [Mass ratio] 1.0 {ratio} Normal [facility] Comment on above: Performed By: #### H DEB, CMP #### [facility] [address] [place] [address] Dr. Judd Andrade ALP [Catalytic activity/Vol] 77 U/L Normal 46-116 [facility] Comment on above: Performed By: #### H TERAPN, CMP #### [facility] [address] [place] [address] Dr. Judd Andrade ALT [Catalytic activity/Vol] 33 U/L Normal 14-59 [facility] Comment on above: Performed By: #### H DEB, CMP #### [facility] [address] [place] [address] Dr. Judd Andrade Anion gap [Moles/Vol] 8.0 mmol/L Normal [facility] Comment on above: Performed By: #### H TERAPN, CMP #### [facility] [address] [place] [address] Dr. Judd Andrade AST [Catalytic activity/Vol] 28 U/L Normal 15-37 [facility] Comment on above: Performed By: #### H STROPN, CMP #### [facility] [address] [place] [address] Dr. Judd Andrade Bilirubin [Mass/Vol] 0.6 mg/dL Normal 0.2-1.0 [facility] Comment on above: Performed By: #### H STROPN, CMP #### [facility] [address] [address] [address] Judd Andrade Calcium [Mass/Vol] 9.3 mg/dL Normal 8.5-10.1 [facility] Comment on above: Performed By: #### H STROPN, CMP #### [facility] [address] [address] [address] Judd Andrade Chloride [Moles/Vol] 103 mmol/L Normal 98-107 [facility] Comment on above: Performed By: #### H STROPN, CMP #### [facility] [address] [address] [address] Judd Andrade CO2 [Moles/Vol] 33.6 mmol/L Critically high 21.0-32.0 [facility] Comment on above: Performed By: #### H STROPN, CMP #### [facility] [address] [place] [address] Dr. Judd Andrade Creatinine [Mass/Vol] 0.59 mg/dL Normal 0.55-1.02 [facility] Comment on above: Performed By: #### H STROPN, CMP #### [facility] [address] [address] [address] Judd Andrade EGFR-AF MALAWIAN >60 Normal >=60 [facility] Comment on above: Performed By: #### H STROPN, CMP #### [facility] [address] [place] [address] Dr. Judd Andrade EGFR-NON AF MALAWIAN >60 Normal >=60 [facility] Comment on above: Performed By: #### H STROPN, CMP #### [facility] [address] [address] [address] Judd Andrade Globulin (S) [Mass/Vol] 4.0 g/dL Normal [facility] Comment on above: Performed By: #### H STROPN, CMP #### [facility] [address] [address] [address] Judd Andrade Glucose [Mass/Vol] 130 mg/dL Critically high 74-106 [facility] Comment on above: Performed By: #### H STROPN, CMP #### [facility] [address] [address] [address] Judd Andrade Potassium [Moles/Vol] 3.6 mmol/L Normal 3.5-5.1 [facility] Comment on above: Performed By: #### H STROPN, CMP #### [facility] [address] [address] [address] Judd Andrade Protein [Mass/Vol] 8.0 g/dL Normal 6.4-8.2 [facility] Comment on above: Performed By: #### H STROPN, CMP #### [facility] [address] [address] [address] Judd Andrade Sodium [Moles/Vol] 141 mmol/L Normal 136-145 [facility] Comment on above: Performed By: #### H STROPN, CMP #### [facility] [address] [place] [address] Dr. Judd Andrade Urea nitrogen [Mass/Vol] 8.0 mg/dL Normal 7.0-18.0 [facility] Comment on above: Performed By: #### H STROPN, CMP #### [facility] [address] [place] [address] Dr. Judd Andrade Urea nitrogen/Creatinine [Mass ratio] 13.6 mg/mg Normal [facility] Comment on above: Performed By: #### H STROPN, CMP #### [facility] [address] [place] [address] Dr. Judd Andrade TROPONIN, HIGH SENSITIVITYon 06-03-2022 HSTROP <4.0 Normal 4.0-51.3 [facility] Comment on above: Result Comment: CUT- OFF POINTS HAVE BEEN ESTABLISHED BASED ON THE FOURTH UNIVERSAL DEFINITIONS OF MYOCARDIAL INFARCTION. THE UPPER REFERENCE LIMIT (URL) OF TROPONIN, DEFINED THE 99TH PERCENTILE OF cTnI DISTRIBUTION IN A REFERENCE POPULATION, HAS BEEN CONFIRMED THE DECISION THRESHOLD FOR [place] DIAGNOSIS. Performed By: #### H STROPN, CMP #### [facility] [address] [place] [address] Dr. Judd Andrade XR CHEST 2 Von [...] acute cardiopulmonary disease. Electronically authenticated by: LINDA TANNG Date: 2022-06-03 12:15 Normal [facility] Covid-19 PCR (CVDTB)on SARS-CoV-2 (COVID-19) RNA JOLLY+probe Ql (Unsp spec) Not detected Normal NOT DETECTED [facility] Comment on above: Result Comment: This test is not yet approved or cleared by the [place] FDA. When there are no FDA-approved or cleared tests available, and other criteria are met, FDA can make tests available under an emergency access mechanism called an Emergency Use Authorization (EUA). The EUA for this test is supported by the Packaging Coordinator of Health and Human Service's (HHS's) [...] Performed By: #### H DEB, CMP #### [facility] [address] [place] [address] Dr. Judd Andrade INFLUENZA A AND B AGon 06-02 INFLUANEGH SEE BELOW Normal [facility] Comment on above: Result Comment: Nega tive for Flu A protein angiten. Infection due to Flu A cannot be ruled out. Flu A angiten in the sample may be below the detection limit of the test. Performed By: #### H DEB, CMP #### [facility] [address] [address] [address] Judd Andrade [facility] SEE BELOW Normal [facility] Comment on above: Result Comment: Nega tive for Flu B protein antigen. Infection due to Flu B cannot be ruled out. Flu B antigen in the sample may be below the detection limit of the test. Performed By: #### H STROPN, CMP #### [facility] [address] [address] [address] Judd Andrade INFLUENZA A AG Negative Normal NEGATIVE SEE COMMENT [facility] Comment on above: Performed By: #### H STROPN, CMP #### [facility] [address] [address] [address] Judd Andrade INFLUENZA B AG Negative Normal NEGATIVE SEE COMMENT [facility] Comment on above: Performed By: #### H STROPN, CMP #### [facility] [address] [address] [address] Jud[address] US ST HEAD_NECKon 02-11-2022 [...] GABO STRONG Date: 2022-02-11 16:24 Normal [facility] MG MAMM SCREEN 3D SUSANA CADon 02-10-2022 MG MAMM SCREEN 3D SUSANA CAD Patient: YULIA DORSEY Exam Date: 02/10/2022 : 1965 Gender:F Ordering : DR JOHN PORTER . Admission #: [id number] Family : Order #: [id number] CLICK HERE TO VIEW EXAM RADIOLOGY REPORT [...] breast cancer at age 40. LOCATION: [facility] BREAST COMPOSITION: Almost entirely fatty. [...] Strong M.D. on 02/11/2022 at 14:20 Normal [facility] XR CHEST 1 Von 01-15-2022 XR [...] KAREN VALDEZ Date: 2022-01-15 18:39 Normal [facility] CBC AUTO DIFFon 12-30-2021 BASO # 0.0 103/ul Normal 0.0-0.1 [facility] Comment on above: Performed By: #### C BC #### [facility] [address] [address] [address] Judd Andrade Basophils/100 WBC (Bld) 0.6 % Normal 0.2-2.0 [facility] Comment on above: Performed By: #### C BC #### [facility] [address] [address] [address] Judd Andrade EO # 0.1 103/ul Normal 0.0-0.7 [facility] Comment on above: Performed By: #### C BC #### [facility] [address] [address] [address] Judd Andrade Eosinophils/100 WBC (Bld) 2.1 % Normal 0.9-7.0 [facility] Comment on above: Performed By: #### C BC #### [facility] [address] [place] [address] Dr. Judd Andrade Erythrocyte distribution width (RBC) [Ratio] 13.0 % Normal 11.0-15.0 [facility] Comment on above: Performed By: #### C BC #### [facility] [address] [place] [address] Dr. Judd Andrade Hematocrit (Bld) [Volume fraction] 41.9 % Normal 36.0-48.0 [facility] Comment on above: Performed By: #### C BC #### [facility] [address] [place] [address] Dr. Judd Andrade Hemoglobin (Bld) [Mass/Vol] 13.7 g/dL Normal 12.0-16.0 [facility] Comment on above: Performed By: #### C BC #### [facility] [address] [place] [address] Dr. Judd Andrade IG # 0.03 10e3/ul Normal 0.00-0.03 [facility] Comment on above: Performed By: #### C BC #### [facility] [address] [place] [address] Dr. Judd Andrade IG % 0.6 % Critically high 0.0-0.5 [facility] Comment on above: Performed By: #### C BC #### [facility] [address] [place] [address] Dr. Judd Andrade LYMPH # 1.9 103/ul Normal 1.2-3.8 [facility] Comment on above: Performed By: #### C BC #### [facility] [address] [place] [address] Dr. Judd Andrade Lymphocytes/100 WBC (Bld) 34.5 % Normal 20.5-60.0 [facility] Comment on above: Performed By: #### C BC #### [facility] [address] [place] [address] Dr. Judd Andrade MANUAL DIFF REQ NO Normal [facility] Comment on above: Performed By: #### C BC #### [facility] [address] [place] [address] Dr. Judd Andrade MCH (RBC) [Entitic mass] 28.5 pg Normal 26.7-34.0 [facility] Comment on above: Performed By: #### C BC #### [facility] [address] [place] [address] Dr. Judd Andrade MCHC (RBC) [Mass/Vol] 32.7 g/dL Normal 29.9-35.2 [facility] Comment on above: Performed By: #### C BC #### [facility] [address] [place] [address] Dr. Judd Andrade MCV (RBC) [Entitic vol] 87.1 fL Normal 81.0-99.0 [facility] Comment on above: Performed By: #### C BC #### [facility] [address] [place] [address] Dr. Judd Andrade MONO # 0.6 103/ul Normal 0.3-0.8 [facility] Comment on above: Performed By: #### C BC #### [facility] [address] [place] [address] Dr. Judd Andrade Monocytes/100 WBC (Bld) 10.4 % Normal 1.7-12.0 [facility] Comment on above: Performed By: #### C BC #### [facility] [address] [place] [address] Dr. Judd Andrade NEUT # 2.8 103/ul Normal 1.4-6.5 [facility] Comment on above: Performed By: #### C BC #### [facility] [address] [place] [address] Dr. Judd Andrade Neutrophils/100 WBC (Bld) 51.8 % Normal 43.0-75.0 [facility] Comment on above: Performed By: #### C BC #### [facility] [address] [place] [address] Dr. Judd Andrade Platelet mean volume (Bld) [Entitic vol] 10.5 fL Normal 9.5-13.5 [facility] Comment on above: Performed By: #### C BC #### [facility] [address] [place] [address] Dr. Judd Andrade PLT 270 103/ul Normal 150-450 [facility] Comment on above: Performed By: #### C BC #### [facility] [address] [place] [address] Dr. Judd Andrade RBC 4.81 106/ul Normal 4.20-5.40 [facility] Comment on above: Performed By: #### C BC #### [facility] [address] [place] [address] Dr. Judd Andrade WBC 5.4 103/ul Normal 4.0-11.0 [facility] Comment on above: Performed By: #### C BC #### [facility] [address] [place] [address] Dr. Judd Andrade CRPon 12-30-2021 CRP [Mass/Vol] mg/L Normal <=1.0 [facility] Comment on above: Performed By: #### C BC #### [facility] [address] [place] [address] Dr. Judd Andrade PROF 14(COMP METB)on 022 Albumin [Mass/Vol] 3.9 g/dL Normal 3.4-5.0 [facility] Comment on above: Performed By: #### C BC #### [facility] [address] [place] [address] Dr. Judd Andrade Albumin/Globulin [Mass ratio] 1.0 {ratio} Normal [facility] Comment on above: Performed By: #### C BC #### [facility] [address] [place] [address] Dr. Judd Andrade ALP [Catalytic activity/Vol] 64 U/L Normal 46-116 [facility] Comment on above: Performed By: #### C BC #### [facility] [address] [place] [address] Dr. Judd Andrade ALT [Catalytic activity/Vol] 50 U/L Normal 14-59 [facility] Comment on above: Performed By: #### C BC #### [facility] [address] [address] [address] Judd Andrade Anion gap [Moles/Vol] 11.1 mmol/L Normal [facility] Comment on above: Performed By: #### C BC #### [facility] [address] [address] [address] Judd Andrade AST [Catalytic activity/Vol] 28 U/L Normal 15-37 [facility] Comment on above: Performed By: #### C BC #### [facility] [address] [address] [address] Judd Andrade Bilirubin [Mass/Vol] 0.5 mg/dL Normal 0.2-1.0 [facility] Comment on above: Performed By: #### C BC #### [facility] [address] [place] [address] Dr. Judd Andrade Calcium [Mass/Vol] 8.9 mg/dL Normal 8.5-10.1 [facility] Comment on above: Performed By: #### C BC #### [facility] [address] [address] [address] Judd Andrade Chloride [Moles/Vol] 101 mmol/L Normal 98-107 [facility] Comment on above: Performed By: #### C BC #### [facility] [address] [address] [address] Judd Andrade CO2 [Moles/Vol] 29.4 mmol/L Normal 21.0-32.0 [facility] Comment on above: Performed By: #### C BC #### [facility] [address] [address] [address] Jdud Andrade Creatinine [Mass/Vol] 0.73 mg/dL Normal 0.55-1.02 [facility] Comment on above: Performed By: #### C BC #### [facility] [address] [address] [address] Judd Andrade EGFR-AF MALAWIAN >60 Normal >=60 [facility] Comment on above: Performed By: #### C BC #### [facility] [address] [place] [address] Dr. Judd Andrade EGFR-NON AF MALAWIAN >60 Normal >=60 [facility] Comment on above: Performed By: #### C BC #### [facility] [address] [address] [address] Judd Andrade Globulin (S) [Mass/Vol] 3.8 g/dL Normal [facility] Comment on above: Performed By: #### C BC #### [facility] [address] [place] [address] Dr. Judd Andrade Glucose [Mass/Vol] 139 mg/dL Critically high 74-106 [facility] Comment on above: Performed By: #### C BC #### [facility] [address] [place] [address] Dr. Judd Andrade Potassium [Moles/Vol] 3.5 mmol/L Normal 3.5-5.1 [facility] Comment on above: Performed By: #### C BC #### [facility] [address] [place] [address] Dr. Judd Andrade Protein [Mass/Vol] 7.7 g/dL Normal 6.4-8.2 [facility] Comment on above: Performed By: #### C BC #### [facility] [address] [place] [address] Dr. Judd Andrade Sodium [Moles/Vol] 138 mmol/L Normal 136-145 [facility] Comment on above: Performed By: #### C BC #### [facility] [address] [place] [address] Dr. Judd Andrade Urea nitrogen [Mass/Vol] 12.0 mg/dL Normal 7.0-18.0 [facility] Comment on above: Performed By: #### C BC #### [facility] [address] [place] [address] Dr. Judd Andrade Urea nitrogen/Creatinine [Mass ratio] 16.4 mg/mg Normal [facility] Comment on above: Performed By: #### C BC #### [facility] [address] [place] [address] Dr. Judd Andrade XR CHEST 2 Von [...] ARTEMIO DIXON Date: 2021-12-29 20:49 Normal [facility] TRYPTASEon 12-27-2021 Tryptase 4.5 ug/L Normal 2.2-13.2 [facility] Comment on above: Performed By: #### C BC #### [facility] [address] [place] [address] Dr. Judd Andrade CBC AUTO DIFFon 12-23-2021 BASO # 0.0 103/ul Normal 0.0-0.1 [facility] Comment on above: Performed By: #### H STROPN, CMP #### [facility] [address] [place] [address] Dr. Judd Andrade Basophils/100 WBC (Bld) 0.7 % Normal 0.2-2.0 [facility] Comment on above: Performed By: #### H STROPN, CMP #### [facility] [address] [place] [address] Dr. Judd Andrade EO # 0.0 103/ul Normal 0.0-0.7 [facility] Comment on above: Performed By: #### H STROPN, CMP #### [facility] [address] [place] [address] Dr. Judd Andrade Eosinophils/100 WBC (Bld) 0.0 % Critically low 0.9-7.0 [facility] Comment on above: Performed By: #### H STROPN, CMP #### [facility] [address] [place] [address] Dr. Judd Andrade Erythrocyte distribution width (RBC) [Ratio] 13.2 % Normal 11.0-15.0 [facility] Comment on above: Performed By: #### H STROPN, CMP #### [facility] [address] [place] [address] Dr. Judd Andrade Hematocrit (Bld) [Volume fraction] 42.1 % Normal 36.0-48.0 [facility] Comment on above: Performed By: #### H STROPN, CMP #### [facility] [address] [place] [address] Dr. Judd Andrade Hemoglobin (Bld) [Mass/Vol] 13.7 g/dL Normal 12.0-16.0 [facility] Comment on above: Performed By: #### H STROPN, CMP #### [facility] [address] [place] [address] Dr. Judd Andrade IG # 0.01 10e3/ul Normal 0.00-0.03 [facility] Comment on above: Performed By: #### H STROPN, CMP #### [facility] [address] [place] [address] Dr. Judd Andrade IG % 0.3 % Normal 0.0-0.5 [facility] Comment on above: Performed By: #### H STROPN, CMP #### [facility] [address] [place] [address] Dr. Judd Andrade LYMPH # 0.7 103/ul Critically low 1.2-3.8 [facility] Comment on above: Performed By: #### H STROPN, CMP #### [facility] [address] [place] [address] Dr. Judd Andrade Lymphocytes/100 WBC (Bld) 24.1 % Normal 20.5-60.0 [facility] Comment on above: Performed By: #### H STROPN, CMP #### [facility] [address] [place] [address] Dr. Judd Andrade MANUAL DIFF REQ NO Normal [facility] Comment on above: Performed By: #### H STROPN, CMP #### [facility] [address] [place] [address] Dr. Judd Andrade MCH (RBC) [Entitic mass] 28.4 pg Normal 26.7-34.0 [facility] [facility] Comment on above: Performed By: #### H STROPN, CMP #### [facility] [address] [place] [address] Dr. Judd Andrade MCHC (RBC) [Mass/Vol] 32.5 g/dL Normal 29.9-35.2 [facility] Comment on above: Performed By: #### H STROPN, CMP #### [facility] [address] [place] [address] Dr. Judd Andrade MCV (RBC) [Entitic vol] 87.2 fL Normal 81.0-99.0 [facility] Comment on above: Performed By: #### H STROPN, CMP #### [facility] [address] [place] [address] Dr. Judd Andrade MONO # 0.5 103/ul Normal 0.3-0.8 [facility] Comment on above: Performed By: #### H STROPN, CMP #### [facility] [address] [place] [address] Dr. Judd Andrade Monocytes/100 WBC (Bld) 16.9 % Critically high 1.7-12.0 [facility] Comment on above: Performed By: #### H STROPN, CMP #### [facility] [address] [place] [address] Dr. Judd Andrade NEUT # 1.8 103/ul Normal 1.4-6.5 [facility] Comment on above: Performed By: #### H STROPN, CMP #### [facility] [address] [place] [address] Dr. Judd Andrade Neutrophils/100 WBC (Bld) 58.0 % Normal 43.0-75.0 [facility] Comment on above: Performed By: #### H STROPN, CMP #### [facility] [address] [place] [address] Dr. Judd Andrade Platelet mean volume (Bld) [Entitic vol] 9.9 fL Normal 9.5-13.5 [facility] Comment on above: Performed By: #### H STROPN, CMP #### [facility] [address] [place] [address] Dr. Judd Andrade PLT 210 103/ul Normal 150-450 [facility] Comment on above: Performed By: #### H TERAPN, CMP #### [facility] [address] [place] [address] Dr. Judd Andrade RBC 4.83 106/ul Normal 4.20-5.40 [facility] Comment on above: Performed By: #### H TERAPN, CMP #### [facility] [address] [place] [address] Dr. Judd Andrade WBC 3.1 103/ul Critically low 4.0-11.0 [facility] Comment on above: Performed By: #### H DEB, CMP #### [facility] [address] [place] [address] Dr. Judd Andrade IRONon 12-23-2021 Iron [Mass/Vol] 35.0 ug/dL Critically low 50.0-170.0 [facility] Comment on above: Performed By: #### C BC #### [facility] [address] [place] [address] Dr. Judd Andrade PROF 14(COMP METB)on 022 Albumin [Mass/Vol] 3.9 g/dL Normal 3.4-5.0 [facility] Comment on above: Performed By: #### C BC #### [facility] [address] [place] [address] Dr. Judd Andrade Albumin/Globulin [Mass ratio] 1.0 {ratio} Normal [facility] Comment on above: Performed By: #### C BC #### [facility] [address] [place] [address] Dr. Judd Andrade ALP [Catalytic activity/Vol] 70 U/L Normal 46-116 [facility] Comment on above: Performed By: #### C BC #### [facility] [address] [place] [address] Dr. Judd Andrade ALT [Catalytic activity/Vol] 43 U/L Normal 14-59 [facility] Comment on above: Performed By: #### C BC #### [facility] [address] [place] [address] Dr. Judd Andrade Anion gap [Moles/Vol] 11.5 mmol/L Normal [facility] Comment on above: Performed By: #### C BC #### [facility] [address] [place] [address] Dr. Judd Andrade AST [Catalytic activity/Vol] 33 U/L Normal 15-37 [facility] Comment on above: Performed By: #### C BC #### [facility] [address] [place] [address] Dr. Judd Andrade Bilirubin [Mass/Vol] 0.3 mg/dL Normal 0.2-1.0 [facility] Comment on above: Performed By: #### C BC #### [facility] [address] [place] [address] Dr. Judd Andrade Calcium [Mass/Vol] 8.9 mg/dL Normal 8.5-10.1 [facility] Comment on above: Performed By: #### C BC #### [facility] [address] [place] [address] Dr. Judd Andrade Chloride [Moles/Vol] 101 mmol/L Normal 98-107 [facility] Comment on above: Performed By: #### C BC #### [facility] [address] [place] [address] Dr. Judd Andrade CO2 [Moles/Vol] 31.1 mmol/L Normal 21.0-32.0 [facility] Comment on above: Performed By: #### C BC #### [facility] [address] [place] [address] Dr. Judd Andrade Creatinine [Mass/Vol] 0.69 mg/dL Normal 0.55-1.02 [facility] Comment on above: Performed By: #### C BC #### [facility] [address] [place] [address] Dr. Judd Andrade EGFR-AF MALAWIAN >60 Normal >=60 [facility] Comment on above: Performed By: #### C BC #### [facility] [address] [place] [address] Dr. Judd Andrade EGFR-NON AF MALAWIAN >60 Normal >=60 [facility] Comment on above: Performed By: #### C BC #### [facility] [address] [address] [address] Judd Andrade Globulin (S) [Mass/Vol] 3.8 g/dL Normal [facility] Comment on above: Performed By: #### C BC #### [facility] [address] [address] [address] Judd Andrade Glucose [Mass/Vol] 103 mg/dL Normal 74-106 [facility] Comment on above: Performed By: #### C BC #### [facility] [address] [place] [address] Dr. Judd Andrade Potassium [Moles/Vol] 3.6 mmol/L Normal 3.5-5.1 [facility] Comment on above: Performed By: #### C BC #### [facility] [address] [place] [address] Dr. Judd Andrade Protein [Mass/Vol] 7.7 g/dL Normal 6.4-8.2 [facility] Comment on above: Performed By: #### C BC #### [facility] [address] [place] [address] Dr. Judd Andrade Sodium [Moles/Vol] 140 mmol/L Normal 136-145 [facility] Comment on above: Performed By: #### C BC #### [facility] [address] [place] [address] Dr. Judd Andrade Urea nitrogen [Mass/Vol] 11.0 mg/dL Normal 7.0-18.0 [facility] Comment on above: Performed By: #### C BC #### [facility] [address] [place] [address] Dr. Judd Andrade Urea nitrogen/Creatinine [Mass ratio] 15.9 mg/mg Normal [facility] Comment on above: Performed By: #### C BC #### [facility] [address] [place] [address] Dr. Judd Andrade PROTIMEon 12-23-2021 INR Coag (PPP) [Relative time] 1.04 {INR} Normal [facility] Comment on above: Performed By: #### H DEB, CMP #### [facility] [address] [place] [address] Dr. Judd Andrade INR GUIDELINES SEE BELOW Normal [facility] Comment on above: Result Comment: PRIETO RED INR: 2.0 - 3.0 CONDITIONS NOT LISTED BELOW 2.5 - 3.5 FOR PROSTHETIC HEART VALVE REPLACEMENT 2.5 - 3.5 RECURRENT THROMBOSIS Performed By: #### H DEB, CMP #### [facility] [address] [place] [address] Dr. Judd Andrade PT Coag (PPP) [Time] 11.2 s Normal 9.0-11.6 [facility] Comment on above: Performed By: #### H DEB, CMP #### [facility] [address] [place] [address] Dr. Judd Andrade PTTon 12-23-2021 aPTT Coag (Bld) [Time] 31.5 s Normal 22.3-36.2 [facility] Comment on above: Performed By: #### H DEB, CMP #### [facility] [address] [place] [address] Dr. Judd Andrade ER URINE PROFILEon 2 Bilirubin Ql (U) Negative Normal NEGATIVE [facility] Comment on above: Performed By: #### H DEB, CMP #### [facility] [address] [place] [address] Dr. Judd Andrade Clarity (U) CLEAR Normal CLEAR [facility] Comment on above: Performed By: #### H DEB, CMP #### [facility] [address] [place] [address] Dr. Judd Andrade Color (U) LT. YELLOW Normal YELLOW [facility] Comment on above: Performed By: #### H DEB, CMP #### [facility] [address] [place] [address] Dr. Judd Andrade ERUAHRomina A micrscopic examination will be performed if indicated. Normal [facility] Comment on above: Performed By: #### H DEB, CMP #### [facility] [address] [place] [address] Dr. Judd Andrade Glucose Ql (U) Negative Normal NEGATIVE [facility] Comment on above: Performed By: #### H STROPN, CMP #### [facility] [address] [address] [address] Judd Andrade Hemoglobin Ql (U) TRACE-INTACT Abnormal NEGATIVE [facility] Comment on above: Performed By: #### H STROPN, CMP #### [facility] [address] [address] [address] Judd Andrade Ketones Ql (U) Negative Normal NEGATIVE [facility] Comment on above: Performed By: #### H STROPN, CMP #### [facility] [address] [address] [address] Judd Andrade LEUKOCYTES Negative Normal NEGATIVE [facility] Comment on above: Performed By: #### H STROPN, CMP #### [facility] [address] [place] [address] Dr. Judd Andrade Nitrite Ql (U) Negative Normal NEGATIVE [facility] Comment on above: Performed By: #### H STROPN, CMP #### [facility] [address] [address] [address] Judd Andrade pH (U) 6.0 [pH] Normal 5-9 [facility] Comment on above: Performed By: #### H STROPN, CMP #### [facility] [address] [place] [address] Dr. Judd Andrade SPEC GRAVITY 1.005 Normal 1.005-<=1.025 [facility] Comment on above: Performed By: #### H STROPN, CMP #### [facility] [address] [address] [address] Judd Andrade UA PROTEIN Negative Normal NEGATIVE/ TRACE [facility] Comment on above: Performed By: #### H STROPN, CMP #### [facility] [address] [address] [address] Judd Andrade UR MICRO IND INDICATED Normal [facility] Comment on above: Performed By: #### H STROPN, CMP #### [facility] [address] [place] [address] Dr. Judd Andrade Urobilinogen Qn (U) 0.2 {Carol'U}/dL Normal 0.2 - 1. 0 [facility] Comment on above: Performed By: #### H STROPN, CMP #### [facility] [address] [address] [address] Judd Andrade URINE MICROSCOPIC ONLYon BACTERIA NONE SEEN Normal NONE SEEN [facility] Comment on above: Performed By: #### H STROPN, CMP #### [facility] [address] [place] [address] Dr. Judd Andrade Bacteria identified Cx Nom (U) NOT INDICATED Normal [facility] Comment on above: Performed By: #### H STROPN, CMP #### [facility] [address] [place] [address] Dr. Judd Andrade CAST NONE SEEN Normal NONE SEEN [facility] Comment on above: Performed By: #### H STROPN, CMP #### [facility] [address] [place] [address] Dr. Judd Andrade Crystals LM Nom (Urine sed) NONE SEEN Normal NONE SEEN [facility] Comment on above: Performed By: #### H STROPN, CMP #### [facility] [address] [place] [address] Dr. Judd Andrade Epithelial cells LM Ql (Urine sed) FEW Abnormal NONE SEEN /RARE [facility] Comment on above: Performed By: #### H STROPN, CMP #### [facility] [address] [place] [address] Dr. Judd Andrade MUCOUS NONE SEEN Normal NONE SEEN [facility] Comment on above: Performed By: #### H STROPN, CMP #### [facility] [address] [place] [address] Dr. Judd Andrade RBC 0-2 Normal 0-2 [facility] Comment on above: Performed By: #### H STROPN, CMP #### [facility] [address] [place] [address] Dr. Judd Andrade WBC NONE SEEN Normal NONE SEEN [facility] Comment on above: Performed By: #### H STROPN, CMP #### [facility] [address] [address] [address] Judd Andrade Vital Signs Date Time Vital Sign Value Performing Clinician Facility 01-20-2024 12:02-0400 Body mass index (BMI) [Ratio] 28.34 kg/m2 Katie Yocasta DO Work Phone: [facility] 01-20-2024 12:02-0400 Body weight 72.58 kg Katie Yocasta DO Work Phone: [facility] 01-20-2024 12:02-0400 Diastolic blood pressure 80 mm[Hg] Katie Yocasta DO Work Phone: [facility] 01-20-2024 12:02-0400 Systolic blood pressure 160 mm[Hg] Katie Yocasta DO Work Phone: [facility] 01-03-2024 13:11-0400 Body mass index (BMI) [Ratio] 28.17 kg/m2 Katie Yocasta DO Work Phone: [facility] 01-03-2024 13:11-0400 Body weight 72.12 kg Katie Yocasta DO Work Phone: [facility] 01-03-2024 13:11-0400 Diastolic blood pressure 70 mm[Hg] Katie Yocasta DO Work Phone: [facility] 01-03-2024 13:11-0400 Systolic blood pressure 120 mm[Hg] Katie Yocasta DO Work Phone: [facility] 12-30-2023 13:48-0400 Blood Pressure Location Bessie Galea [facility] 12-30-2023 13:48-0400 Diastolic blood pressure 82 mm[Hg] Bessie Galea [facility] 12-30-2023 13:48-0400 Heart rate 80 /min Bessie Galea [facility] 12-30-2023 13:48-0400 Respiratory rate 16 /min Bessie Gong [facility] 12-30-2023 13:48-0400 Systolic blood pressure 117 mm[Hg] Bessie Gong [facility] 12-21-2023 11:47-0400 Body mass index (BMI) [Ratio] 27.99 kg/m2 Radha KAY Work Phone: [facility] 12-21-2023 11:47-0400 Body weight 71.67 kg Radha KAY Work Phone: [facility] 12-21-2023 11:47-0400 Diastolic blood pressure 78 mm[Hg] Radha KAY Work Phone: [facility] 12-21-2023 11:47-0400 Systolic blood pressure 118 mm[Hg] Radha KAY Work Phone: [facility] Encounters Encounter Date Encounter Type Care Provider Facility Start: 07-03-2024 End: 07-03-2024 [facility] Start: 06-19-2024 End: 06-19-2024 [facility] Start: 06-06-2024 End: 06-06-2024 [facility] Start: 05-30-2024 End: 05-30-2024 Clinisync Result Encounter Katie Yocasta DO Work Phone: [facility] Unsolicited Start: 05-30-2024 End: 05-30-2024 Clinisync Result Encounter Katie Yocasta DO Work Phone: [facility] Unsolicited Start: 05-29-2024 End: 05-29-2024 [facility] Start: 05-22-2024 End: 05-22-2024 [facility] Start: 05-08-2024 End: 05-08-2024 ambulatory IRIS GABRIEL [facility] Start: 01-20-2024 End: 01-20-2024 Bamboo [...] Result Encounter Katie Yocasta DO Work Phone: [facility] External Department Unsolicited Start: 01-07-2024 End: 01-07-2024 Clinisync Result Encounter Katie Yocasta DO Work Phone: [facility] External Department Unsolicited Start: 01-07-2024 End: 01-07-2024 ambulatory MD John Porter Work Phone: [facility] Work Phone: Start: 01-07-2024 End: 01-07-2024 Departed Referred MD John Porter Work Phone: [facility] Start: 01-03-2024 End: 01-03-2024 Bamboo flowsheet Katie Yocasta DO Work Phone: [facility] Start: 01-03-2024 End: 01-03-2024 Bamboo flowsheet Katie Yocasta DO Work Phone: [facility] Start: 01-03-2024 End: 01-03-2024 Office outpatient visit 15 minutes Katie Yocasta DO Work Phone: [facility] Comment on above: Pre-op examination; Yeast infection; Thickened endometrium; Pelvic pain Start: 01-03-2024 End: 01-03-2024 Preprocedural examination done Katie Yocasta DO Work Phone: [facility] Start: 01-03-2024 End: 01-03-2024 ambulatory KATIE YOCASTA Not Available Start: 12-30-2023 End: 12-30-2023 ambulatory Bessie J Reubendoreen Facility:[facility] Start: 12-30-2023 End: 12-30-2023 Patient encounter procedure Bessie Ly Gong [facility] Start: 12-29-2023 End: 12-29-2023 Phys/qhp telephone evaluation 5-10 min Katie Yocasta DO Work Phone: [facility] Comment on above: Urinary tract infect ion without hematuria, site unspecified; Vulvar irritation Start: 12-21-2023 End: 12-21-2023 Bamboo flowsheet Radha KAY Work Phone: [facility] Start: 12-21-2023 End: 12-22-2023 Bamboo flowsheet Radha KAY Work Phone: [facility] Start: 12-21-2023 End: 12-22-2023 External Result Encounter Radha KAY Work Phone: [facility] External Department Unsolicited Start: 12-21-2023 End: 12-21-2023 [...] dy response examination DR JOHN PORTER . [facility] Start: 06-26-2022 End: 06-27-[address] [...] Visit [facility] [address] [place] [id number] Katie Rust DO [address] [place] [address] [facility] Start: 01-07-2024 End: 01-07-2024 Patient encounter procedure 01/07/2024 9:00 AM EDT Procedure Visit [facility] Katie Rust, DO [address] [facility] [place] [address] [facility] Start: 01-03-2024 End: 01-03-2024 [...] vaccine, adsorbed Bessie Galea [facility] Payers Date Payer Category Payer Self-pay [id number] 2023 Unknown [id number] 2020 Private Health Insurance [employer] [id number] 2020 Unknown FRONTPATH FRONTP ATH [id number] 2020-Present [phone] [address] [place] [address] [id number]. [id number] 1965 Unknown [id number] 2.16.840.1.722600.3.579. 2.593 1965 Unknown [id number] 2.16.840.1.054588.3.579. 2.593 1965 Unknown [id number] 2.16.840.1.214098.3.579. 2.593 1965 Unknown [id number] 2.16.840.1.663658.3.579. 2.593 1965 Unknown [id number] 2.16.840.1.706995.3.579. 2.593 1965 Unknown [id number] 2.16.840.1.328397.3.579. 2.593 1965 Unknown [id number] 2.16.840.1.739504.3.579. 2.593 1965 Unknown [id number] 2.16.840.1.435241.3.579. 2.593 1965 Unknown [id number] 2.16.840.1.218989.3.579. 2.593 1965 Unknown [id number] 2.16.840.1.883867.3.579. 2.593 1965 Unknown [id number] 2.16.840.1.594668.3.579. 2.593 1965 Unknown [id number] 2.16.840.1.036618.3.579. 2.593 1965 Unknown [id number] 2.16.840.1.440126.3.579. 2.593 1965 Unknown [id number] 2.16.840.1.930336.3.579. 2.593 1965 Unknown [id number] 2.16.840.1.853226.3.579. 2.593 1965 Unknown [id number] 2.16.840.1.372330.3.579. 2.593 1965 Unknown [id number] 2.16.840.1.320803.3.579. 2.593 1965 Unknown [id number] 2.16.840.1.176742.3.579. 2.593 1965 Unknown [id number] 2.16.840.1.332795.3.579. 2.59 1965 Unknown [id number] 2.16.840.1.122929.3.579. 2.59 1965 Unknown [id number] 2.16.840.1.732558.3.579. 2.593 1965 Unknown [id number] 2.16.840.1.207880.3.579. 2.59 1965 Unknown [id number] 2.16.840.1.689276.3.579. 2.593 1965 Unknown [id number] 2.16.840.1.246039.3.579. 2.593 1965 Unknown [id number] 2.16.840.1.126872.3.579. 2.1259 1965 Unknown [id number] 2.16.840.1.500843.3.579. 2.125 1965 Unknown [id number] 2.16.840.1.622997.3.579. 2.1259 1965 Unknown [id number] 2.16.840.1.333681.3.579. 2.1259 1965 Unknown [id number] 2.16.840.1.859878.3.579. 2.9 1965 Unknown [id number] 2.16.840.1.484111.3.579. 2.9 1965 Unknown [id number] 2.16.840.1.229695.3.579. 2.727 1965 Unknown [id number] 2.16.840.1.509046.3.579. 2.1286 1965 Unknown [id number] 2.16.840.1.547562.3.579. 2.1285 1965 Unknown [id number] 2.16.840.1.570571.3.579. 2.1285 1965 Unknown [id number] 2.16.840.1.830352.3.579. 2.1285 1965 Unknown [id number] 2.16.840.1.448710.3.579. 2.1285 1965 Unknown [id number] 2.16.840.1.483651.3.579. 2.1286 1959 Self-pay [id number] 1959 Unknown [id number] 1959 Unknown [id number] Unknown [id number] 2.16.840.1.850632.3.579. 2.531 Social History Date Type Detail Facility Start: 12-30-2022 End: 12-30-2023 Tobacco smoking status Ex-smoker (finding) [facility] Tobacco smoking status Never [facility] Start: 11-05-2022 End: 12-21-2023 Sex Assigned At Female [facility] Start: 09-05-2013 Tobacco smoking stat us NHIS Never smoked tobacco (finding) [facility] Start: 1965 Sex Assigned At Female F [facility] History of tobacco use Current smoker [facility] History of tobacco use Cigarette Smoker [facility] Start: 01-03-2024 End: 01-20-2024 Alcoholic beverage intake Lifetime non-drinker (finding) [facility] Start: 11-05-2022 End: 12-21-2023 History of Social function [facility] Start: 12-30-2022 Alcohol Comment Caffeine: none [facility] Start: 1965 Sex assigned at Not on file N [facility] [place] [place] [facility] Functional Status Date Assessment Result Facility 12-30-2023 Functional Status N/A [facility] Clinical Notes 12-21-2023 to 01-20-2024 Deepti Palacios, [facility] - 01/20/2024 11:50 AM EDLuis Palacios, [facility] - 01/03/2024 1:00 PM Carlos Buckley, [facility] - 12/29/2023 8:00 AM ELIZA Leggett [...] Fibrocystic breast changes 10/28/2022 Generalized anxiety disorder ([facility]/HCC) 03/28/2019 Intermittent vertigo 04/26/2004 Irritable bowel syndrome 08/14/2013 Major depressive disorder, single episode, moderate (HCC) ([facility]) 03/28/2019 Meniere's disease 08/14/2013 Menopausal symptoms 11/17/2016 Menorrhagia 10/28/2022 Other specified hearing loss, right ear 02/25/2016 Pressure in head 04/26/2015 Psychological factors affecting medical condition 11/17/2016 Shoulder joint pain 10/28/2022 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[facility]) 11/17/2016 Thickened endometrium 10/28/2022 Viral hepatitis without [...] nursing note reviewed. Exam conducted with a derrick hand present. Vitals: Estimated body mass index is [...] Katie Rust DO documented in this encounter [facility] 01-03-2024 History of Presen t illness Narrative [...] nursing note reviewed. Exam conducted with a derrick hand present. Vitals: Estimated body mass index is [...] reviewed, and patient is to proceed to [facility]. Follow Up: Patient is to follow up between 1-2 weeks post operative to assess proper healing and recovery from procedure. Documented by Deepti Palacios LPN on behalf of: Katie Rust DO documented in this encounter [facility] 12-30-2023 Hospital Discharg e instructions Patient Education [...] provider. Document Revised: 08/21/2021 Document Reviewed: 08/21/2021 [employer] Patient Education 2023 [employer]. Follow Up Care 12/02/2023 13:46:26 With:Farideh BARRERA, Bessie Modi, URL Address: When: Unknown Comments:pending imaging and after PFPT [facility] 12-30-2023 Note Patient Education Obstetrics and [...] provider. Document Revised: 08/21/2021 Document Reviewed: 08/21/2021 [employer] Patient Education ? 2023 [employer] [facility] 12-29-2023 History of Presen t illness Narrative Reason for Appointment: Patient ID: Yulia Dorsey is a 58 y.o. female who presents for Telehealth, UTI, and kidney stone Patient presents today via telephone call for a telehealth appointment. Patients Phone #: [phone] (mobile) Current Medications: has a current medication list which includes the following prescription(s): vitamin c, calcium carbonate, xwaaybm-vfgmylxxd-mzil, airborne elderberry, and multivitamin. Medical History: Active [...] Katie Rust DO documented in this encounter [facility] 12-21-2023 History of Presen t illness Narrative [...] Fibrocystic breast changes 10/28/2022 Generalized anxiety disorder ([facility]/HCC) 03/28/2019 Intermittent vertigo 04/26/2004 Irritable bowel syndrome 08/14/2013 Major depressive disorder, single episode, moderate (HCC) ([facility]) 03/28/2019 Meniere's disease 08/14/2013 Menopausal symptoms 11/17/2016 Menorrhagia 10/28/2022 Other specified hearing loss, right ear 02/25/2016 Pressure in head 04/26/2015 Psychological factors affecting medical condition 11/17/2016 Shoulder joint pain 10/28/2022 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[facility]/HCC) 11/17/2016 Thickened endometrium 10/28/2022 Viral hepatitis without [...] of: ELIZA Mccollum documented in this encounter [facility] Healthcare Evaluation + Plan note No data available for this section [facility] Evaluation note No assessment inform ation available [facility] Work Phone: Evaluation note Diagnosis Vaginal burning Other specified symptom associated with female genital organs Vaginal itching Pruritus of genital organs documented in this encounter [facility]* Diagnosis Urinary tract infection without hematuria, site unspecified Vulvar irritation documented in this encounter [facility] HealthcareEvaluation note* Diagnosis Pre-op examination Yeast infection Thickened endometrium Nonspecific (abnormal) findings on radiological and other examination of genitourinary organs Pelvic pain documented in this encounter [facility]* Diagnosis Postoperative visit S/P D&C (status post dilation and curettage) Other postprocedural status documented in this encounter [facility] HealthcareProgress note No data available for this section [facility] Summary Purpose Family History No Family History Records Found Relationship Condition Age at Onset Recorded Date/T lópez father Heart disease Unknown mother Unknown History of stroke Unknown Advance Directives No Advanced Directives Records Found Advance Directive Response Recorded Date/ Time Advance Directives No July 15 019 11:52am Additional Source Comments INFORMATION SOURCE (unrecogn ized section and content) DATE CREATED AUTHOR 10/02/2022 [facility] DATE CREATED AUTHOR AUTHOR'S ORGANIZ ATION 01/04/2024 [facility] EPIC DATE CREATED AUTHOR AUTHOR'S ORGANIZ ATION 01/09/2024 [facility] DATE CREATED AUTHOR AUTHOR'S ORGANIZ ATION 01/14/2024 [facility] DATE CREATED AUTHOR AUTHOR'S ORGANIZ ATION 07/05/2024 [facility] Patient Care team informatio n (unrecognized section and content) Team Status: Active Member Role Status Dates John Porter MD Primary Care Provider Active Team Status: Inactive Member Role Status Dates John Porter MD Primary Care Provider Active Start: January 07, 2024 End: January 07, 2024 Katie Rust DO Attending Provider Active Start : January 07, 2024 End: January 07, 2024 [employer] Gauger Relationship Specialty Start Date End Date John Porter MD [address] [facility] [place] [address] PCP - General 09/13/22 Glass Curvature Gauger Relationship Specialty Start Date End Date John Porter MD [address] [facility] [place] [address] PCP - General 09/13/22 Glass Curvature Gauger Relationship Specialty Start Date End Date John Porter MD [address] [facility] [place] [address] PCP - General 09/13/22 Glass Curvature Gauger Relationship Specialty Start Date End Date John Porter MD [address] [facility] [place] [address] PCP - General 09/13/22 Glass Curvature Gauger Relationship Specialty Start Date End Date John Porter MD [address] [facility] [place] [address] PCP - General 09/13/22 Glass Curvature Gauger Relationship Specialty Start Date End Date John Porter MD [address] [facility] [place] [address] PCP - General 09/13/22 Glass Curvature Gauger Relationship Specialty Start Date End Date John Porter MD [address] [facility] [place] [address] PCP - General 09/13/22 Goals (unrecognized section [...] BE BASED ON THE PRIMARY CLINICAL RECORDS. [employer] provides no warranty or guarantee of the accuracy or completeness of information in this document.
[2024-08-03 10:36] LABS: Basophils Percent Auto 0.9 % (0.2-2.0); Eosinophils Percent Auto 0.9 % (0.9-7.0); Hematocrit 42.6 % (36.0-48.0); Hemoglobin 14.1 g/dL (12.0-16.0); Immature Granulocytes Abs Auto 0.01 10^3/uL (0.00-0.03); Immature Granulocytes Pct Auto 0.2 % (0.0-0.5); Lymphocytes Absolute Auto 1.2 10^3/uL (1.2-3.8); Lymphocytes Percent Auto 26.3 % (20.5-60.0); Mean Corpuscular HGB Conc 33.1 g/dL (29.9-35.2); Mean Corpuscular Hemoglobin 29.3 pg (26.7-34.0); Mean Corpuscular Volume 88.4 fL (81.0-99.0); Mean Platelet Volume 9.7 fL (9.5-13.5); Monocytes Absolute Auto 0.3 10^3/uL (0.3-0.8); Monocytes Percent Auto 7.2 % (1.7-12.0); Neutrophils Percent Auto 64.5 % (43.0-75.0); Platelet Count 271 10^3/uL (150-450); Red Blood Count 4.82 10^6/uL (4.20-5.40); White Blood Count 4.6 10^3/uL (4.0-11.0)
[2024-08-03 11:10] LABS: Estimated Average Glucose 123 mg/dL; Glycohemoglobin A1C 5.9 % (4.5-6.2)
[2024-08-03 12:03] LABS: Alanine Aminotransferase 28 U/L (14-59); Albumin Globulin Ratio 1.1; Alkaline Phosphatase 72 U/L (46-116); Anion Gap 12.6; Aspartate Amino Transferase 22 U/L (15-37); BUN Creatinine Ratio 15.6; Bilirubin Total 0.5 mg/dL (0.2-1.0); Calcium 9.2 mg/dL (8.5-10.1); Carbon Dioxide 29.6 mmol/L (21.0-32.0); Chloride 105 mmol/L (98-107); Chol HDL Ratio 2.5; Cholesterol 212 mg/dL (<=200); Estimated GFR (African America >60 (>=60 mL/min/1.73m^2); Estimated GFR (Non-African Ame >60 (>=60 mL/min/1.73m^2); Free T3 3.07 pg/mL (2.18-3.98); Globulin 3.7 g/dL; Glucose 122 mg/dL (74-106); HDL Cholesterol 84 mg/dL (40-60); Potassium 4.2 mmol/L (3.5-5.1); Sodium 143 mmol/L (136-145); Thyroid Stimulating Hormone 0.941 uIU/mL (0.358-3.740); Total Protein 7.7 g/dL (6.4-8.2); Triglycerides 39 mg/dL (<=150); Troponin I High Sensitivity <4.0 pg/mL (4.0-51.3); VLDL CHOLESTEROL 7.8 mg/dL
== END 2024-08-03 10:15 | disposition home or self-care (01) ==
LOC: LAB 10:15
PROVIDERS: PCP Family Medicine; Visit Provider Family Medicine
DX: Z00.00 Encounter for general adult medical examination without abnormal findings (principal); I10 Essential (primary) hypertension
CPT/HCPCS: 36415; 80053; 80061; 83036; 83880; 84436; 84443; 84481; 84484; 85025

== ENCOUNTER 2024-08-09 08:53 | Outpatient (OUT) | payer OTHER, SELFPAY ==
--- NOTE | 2024-08-09 08:59 | MR_ITS ---
The [address] [address] Patient Name: YULIA CASTANO MRN: [id number] date: 1965 Sex: F Assigned Patient Location: MRI Current Patient Location: MRI Accession/Order Number: [id number] Exam Date: 08/09/2024 09:53 Report Date: 08/09/2024 10:01 At the request of: JOHN WHITE MD Procedure: MR head/brain wo con EXAMINATION: MRI OF THE BRAIN WITHOUT CONTRAST CLINICAL HISTORY: Vertigo, Headache COMPARISON: CT 07/05/2024 TECHNIQUE: Multiecho, multiplanar imaging of the brain was performed without enhancement. The ventricles are normal in size and position. There are no areas of abnormal signal intensity within the supra- or infratentorial brain. No restricted diffusion is confined to suggest a recent ischemic event. There is partial and the sella. A possible arachnoid cyst is seen posterior to the cerebellum to the right of midline. There are no other extra-axial collections or mass effect. The paranasal sinuses and mastoid air cells are clear. MR/MR head/brain wo con IMPRESSION: NO ACUTE INTRACRANIAL FINDINGS. Impression dictated by: Olivia Gutierrez M.D.08/09/2024 10:01 AM Dictation Location: [place] [address] Electronically authenticated by: [id number] Y Date: 08/09/2024 10:01
--- OUTSIDE RECORDS SUMMARY | 2024-08-09 09:08 | XMS_ITS | CCD ---
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 Role Phone ABELINOY ., DR [...] Unavailable YOCASTA ., DR WILSON Attending Unavailable HOLLSOPPLE, DR ELLYN Dougherty Consulting Unavailable HOY ., [...] Unavailable MD John Porter Primary Care Provider [phone] Katie Rust Attending Provider [phone] Bessie Gong Attending Unavailable Hoy, John M Primary Care Unavailable Yocasta, Katie Attending Unavailable Yocasta, Katie Admitting Unavailable Abelinoy John MCKINNON Primary Care Provider [phone] IRIS GABRIEL Attending Unavailable HOY, JOHN M Referring Unavailable HOY, JOHN M Primary Care Unavailable IRIS GABRIEL Attending Unavailable HOY, JOHN M Referring Unavailable HOY, JOHN M Primary Care Unavailable IRIS GABRIEL Attending Unavailable HOY, JOHN M Referring Unavailable HOY, JHON M Primary Care Unavailable IRIS GABRIEL Attending [...] Drug Allergy 12-21-19 22 [facility] Repository (4 sources) Imipramine; Translations: [IMIPRAMINE] Drug Allergy 10-06-19 13 hallucinations [facility] (2 sources) Sulfonamides (Antibiotic) Drug allergy (disorder) 10-06-19 13 [facility] (2 sources) E.E.S. Drug allergy (disorder) 10-06-19 13 [facility] (17 sources) Erythromycin; Translations: [erythromycin] Drug Allergy 02-25-20 16 Unknown (qualifier value), Other [facility] (16 sources) Imipramine; Translations: [imipramine] Drug Allergy 02-25-20 16 Unknown (qualifier value), Other [facility] (2 sources) Sulfonamides (Antibiotic); Translations: [sulfa drugs] Drug allergy Unknown (qualifier value) [facility] (3 sources) Sulfonamides (Antibiotic); Translations: [Sulfa (Sulfonamide Antibiotics)] Allergy to substance 09-12-19 [facility] (16 sources) erythromycin base; Translations: [erythromycin base] Allergy to substance 12-02-19 [facility] (1 source) Imipramine Drug Allergy 12-02-19 [facility] Repository (14 sources) Sulfonamides (Antibiotic) Drug Intolerance 02-25-20 Rash [facility] (3 sources) Ciprofloxacin Drug Allergy 01-20-20 [facility] Medications Current Medications Medication Drug [...] 01-03-2024 Episodic Other aftercare (4 sources) 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 Ordering Physician: Katie Rust D.O. Results: Date of Service: 05/30/24 Follow Up: Procedure(s): MM tomosynthesis screening BI Accession Number(s): [id number] cc: Katie Rust D.O.; John Porter M.D. Patient Name: YULIA DORSEY MR#: [id number] : 1965 Exam Date: 05/30/2024 Ordering Doctor: [...] at age 40. 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 Ordering Physician: Katie Rust D.O. Results: Date of Service: 05/30/24 Follow Up: Procedure(s): MM tomosynthesis screening BI Accession Number(s): [id number] cc: Katie Rust D.O.; John Porter M.D. Patient Name: YULIA DORSEY MR#: [id number] : 1965 Exam Date: 05/30/2024 Ordering Doctor: [...] at age 40. LOCATION: [facility] BREAST COMPOSITION: The breasts are almost [...] M.D. 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: [facility] Radiology Study observation (narrative) [facility] MM TOMOSYNTHESIS SCREENING B IOrdered By: Radiologist Radiology on 05-30-2024 [facility] Work Phone: ALL CBC WITH AUTO DIFFon BASOPHILS ABSOLUTE AUTO 0.0 [facility] Basophils/100 WBC (Bld) 0.8 % 0.2 - 2.0 % [facility] Eosinophils/100 WBC (Bld) 1.9 % 0.9 - 7.0 % [facility] Erythrocyte distribution width (RBC) [Ratio] 13.4 % 11.0 - 15.0 % [facility] Hematocrit (Bld) [Volume fraction] 43.1 % 36.0 - 48.0 % [facility] Hemoglobin (Bld) [Mass/Vol] 13.9 g/dL 12.0 - 16.0 g/dL [facility] IMMATURE GRANULOCYTES ABS AUTO 0.01 [facility] Immature granulocytes/100 WBC (Bld) 0.2 % 0.0 - 0.5 % [facility] LYMPHOCYTES ABSOLUTE AUTO 1.7 [facility] Lymphocytes/100 WBC (Bld) 32.9 % 20.5 - 60.0 % [facility] MCH (RBC) [Entitic mass] 28.8 pg 26.7 - 34.0 pg [facility] MCHC (RBC) [Mass/Vol] 32.3 g/dL 29.9 - 35.2 g/dL [facility] MCV (RBC) [Entitic vol] 89.2 fL 81.0 - 99.0 fL [facility] MONOCYTES ABSOLUTE AUTO 0.5 [facility] Monocytes/100 WBC (Bld) 9.6 % 1.7 - 12.0 % [facility] NEUTROPHILS ABSOLUTE AUTO 2.8 [facility] Neutrophils/100 WBC (Bld) 54.6 % 43.0 - 75.0 % [facility] Platelet mean volume (Bld) [Entitic vol] 9.7 fL 9.5 - 13.5 fL [facility] EO # 0.1 [facility] PLT 291 [facility] RBC 4.83 [facility] WBC 5.1 [facility] [place] 01-07-2024 L Specimen: [id number] Received: 01/07/24 Status: LAWSON Megan Num: [id number] Spec Type: Surgical Subm Dr: Katie Rust Tissues: A Endometrial Polyp (ENOMETRIAL POLYP AND CURETTI) Procedures: HE/2, Gross/Micro L4 Age/ Patient Sex Location Account Attending Physician Gen Willianrenee Meenakshi 58/F LABELL [id number] Katie Rust SPEC NUM: [id number] RECD: 01/07/24 STATUS: LAWSON GUZMAN NUM: [id number] TIMOTHY: 01/07/[address]: Katie Rust ENTERED: 01/07/24 [facility] DR: Cristhian,Lab SPEC TYPE: Surgical DEPT: BIANCA VANN ENTERED BY: [id number] RECV BY: [id number] ORDERED: HE/2, Gross/Micro L4 ORDERED: HE/2, Gross/Micro [...] is entirely submitted cassette A1. CPT Codes 83383 -------- -------- Specimen: [id number] Received: 01/07/24-134 Status: LAWSON Guzman Num: [id number] Spec Type: Surgical Subm Dr: Katie Rust Tissues: A Endometrial Polyp (ENOMETRIAL POLYP AND CURETTI) Procedures: HE/2, Gross/Micro L4 -------- Patient: Yulia Dorsey [id number] (Continued) -------- Signed (signature on file) Tmamie Mcclellan MD 01/13/24 1606 Normal [facility] Patient Letter FTon 2023 Patient Letter [facility] Patient Letter [facility] January 07, 2024 YULIA [place] [address] : 1965 Dear Yulia Dorsey, We have been trying to reach you with no success. It is important that you return our call upon receiving this letter. Also, at the time of your call, please provide us with your current information. Thank you for your prompt attention to this matter. Sincerely, [facility] [address] [place] [address] [facility] Ambulatory Visit Summaryon 0 12-30-2023 Ambulatory [...] you for choosing us for your care. [facility] Provider Letteron 12-30-2023 Provider Letter Provider Letter December 30, 2023 YULIA DORSEY [address] [place] [address] : 1965 To Whom It May Concern, Please excuse above patient from work. 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 Kidney stones (N20.0: Calculus of kidney) [...] ASSOCIATED BACTERIA 2, 3); MOBILUNCUS SPP 0.000 [facility] BVAB 2,3 (BACTERIAL VAGINOSIS ASSOCIATED [...] : DR KATIE RUST . Admission #: [id number] Family : Order #: [id number] CLICK HERE TO VIEW EXAM RADIOLOGY REPORT [...] at age 40. LOCATION: [facility] BREAST COMPOSITION: Almost entirely fatty. FINDINGS: [...] 09/22/2022 at 15:03 Normal [facility] US BREAST RIGHT LIMITEDon US BREAST RIGHT LIMITED Patient: YULIA DORSEY Exam Date: 09/22/2022 : 1965 Gender:F Ordering : DR KATIE RUST . Admission #: [id number] Family : Order #: [id number] CLICK HERE TO VIEW EXAM RADIOLOGY REPORT [...] at age 40. LOCATION: [facility] BREAST COMPOSITION: Almost entirely fatty. FINDINGS: [...] 09/22/2022 at 15:03 Normal [facility] US ST HEAD_NECKon 08-31-[address] [...] by: GABO STRONG Date: 2022-08-31 08:09 Normal [facility] US PELVIS AND TRANSVAGon US [...] Date: 2022-07-29 06:32 Normal [facility] INSULINon 07-04-2022 Insulin 6.2 uIU/mL Normal 2.6-24.9 [facility] Comment on above: Performed By: #### H STROPN, CMP #### [facility] [address] [place] [address] Dr. Judd Andrade CBC AUTO DIFFon 07-03-2022 BASO # 0.0 103/ul Normal 0.0-0.1 [facility] Comment on above: Performed By: #### C BC #### [facility] [address] [place] [address] Dr. Judd Andrade Basophils/100 WBC (Bld) 1.1 % Normal 0.2-2.0 [facility] Comment on above: Performed By: #### C BC #### [facility] [address] [place] [address] Dr. Judd Andrade EO # 0.1 103/ul Normal 0.0-0.7 [facility] Comment on above: Performed By: #### C BC #### [facility] [address] [place] [address] Dr. Judd Andrade Eosinophils/100 WBC (Bld) 3.6 % Normal 0.9-7.0 [facility] Comment on above: Performed By: #### C BC #### [facility] [address] [place] [address] Dr. Judd Andrade Erythrocyte distribution width (RBC) [Ratio] 13.6 % Normal 11.0-15.0 [facility] Comment on above: Performed By: #### C BC #### [facility] [address] [place] [address] Dr. Judd Andrade Hematocrit (Bld) [Volume fraction] 41.8 % Normal 36.0-48.0 [facility] Comment on above: Performed By: #### C BC #### [facility] [address] [place] [address] Dr. Judd Andrade Hemoglobin (Bld) [Mass/Vol] 13.5 g/dL Normal 12.0-16.0 [facility] Comment on above: Performed By: #### C BC #### [facility] [address] [place] [address] Dr. Judd Andrade IG # 0.01 10e3/ul Normal 0.00-0.03 [facility] Comment on above: Performed By: #### C BC #### [facility] [address] [place] [address] Dr. Judd Andrade IG % 0.3 % Normal 0.0-0.5 [facility] Comment on above: Performed By: #### C BC #### [facility] [address] [place] [address] Dr. Judd Andrade LYMPH # 1.4 103/ul Normal 1.2-3.8 [facility] Comment on above: Performed By: #### C BC #### [facility] [address] [place] [address] Dr. Judd Andrade Lymphocytes/100 WBC (Bld) 38.4 % Normal 20.5-60.0 [facility] Comment on above: Performed By: #### C BC #### [facility] [address] [place] [address] Dr. Judd Andrade MANUAL DIFF REQ NO Normal [facility] Comment on above: Performed By: #### C BC #### [facility] [address] [place] [address] Dr. Judd Andrade MCH (RBC) [Entitic mass] 28.2 pg Normal 26.7-34.0 [facility] Comment on above: Performed By: #### C BC #### [facility] [address] [place] [address] Dr. Judd Andrade MCHC (RBC) [Mass/Vol] 32.3 g/dL Normal 29.9-35.2 [facility] Comment on above: Performed By: #### C BC #### [facility] [address] [address] [address] Judd Andrade MCV (RBC) [Entitic vol] 87.4 fL Normal 81.0-99.0 [facility] Comment on above: Performed By: #### C BC #### [facility] [address] [address] [address] Judd Andrade MONO # 0.4 103/ul Normal 0.3-0.8 [facility] Comment on above: Performed By: #### C BC #### [facility] [address] [place] [address] Dr. Judd Andrade Monocytes/100 WBC (Bld) 10.4 % Normal 1.7-12.0 [facility] Comment on above: Performed By: #### C BC #### [facility] [address] [place] [address] Dr. Judd Andrade NEUT # 1.7 103/ul Normal 1.4-6.5 [facility] Comment on above: Performed By: #### C BC #### [facility] [address] [place] [address] Dr. Judd Andrade Neutrophils/100 WBC (Bld) 46.2 % Normal 43.0-75.0 [facility] Comment on above: Performed By: #### C BC #### [facility] [address] [place] [address] Dr. Judd Andrade Platelet mean volume (Bld) [Entitic vol] 9.6 fL Normal 9.5-13.5 [facility] Comment on above: Performed By: #### C BC #### [facility] [address] [place] [address] Dr. Judd Andrade PLT 246 103/ul Normal 150-450 [facility] Comment on above: Performed By: #### C BC #### [facility] [address] [place] [address] Dr. Judd Andrade RBC 4.78 106/ul Normal 4.20-5.40 [facility] Comment on above: Performed By: #### C BC #### [facility] [address] [address] [address] Judd Andrade WBC 3.7 103/ul Critically low 4.0-11.0 [facility] Comment on above: Performed By: #### C BC #### [facility] [address] [place] [address] Dr. Judd Andrade FREE THYROXINE INDEX T7on FTI 3.20 Normal 1.30-4.50 [facility] Comment on above: Performed By: #### T 7, LIPID, TSH, CMP #### [facility] [address] [address] [address] Judd Andrade T3U 36.0 % Normal 30.0-39.0 [facility] Comment on above: Performed By: #### T 7, LIPID, TSH, CMP #### [facility] [address] [place] [address] Dr. Judd Andrade T4 [Mass/Vol] 8.90 ug/dL Normal 4.80-13.90 [facility] Comment on above: Performed By: #### T 7, LIPID, TSH, CMP #### [facility] [address] [place] [address] Dr. Judd Andrade GLYCOHEMOGLOBIN A1Con 2022 ADA RECOMMENDATION SEE BELOW Normal [facility] Comment on above: Result Comment: ADA RECOMMENDED LIMIT 4.0 - 6.0 ADA THERAPEUTIC TARGET < 7.0 ACTION SUGGESTED > 7.0 Performed By: #### C BC #### [facility] [address] [place] [address] Dr. Judd Andrade Glucose [Mass/Vol] 120 mg/dL Normal [facility] Comment on above: Performed By: #### C BC #### [facility] [address] [place] [address] Dr. Judd Andrade HbA1c (Bld) [Mass fraction] 5.8 % Normal 4.5-6.2 [facility] Comment on above: Performed By: #### C BC #### [facility] [address] [place] [address] Dr. Judd Andrade IRONon 07-03-2022 Iron [Mass/Vol] 67.0 ug/dL Normal 50.0-170.0 [facility] Comment on above: Performed By: #### V ITAD, IRON #### [facility] [address] [address] [address] Judd Andrade LIPID PROFILEon 07-03-2022 CHOL-HDL RATIO NORM SEE BELOW Normal [facility] Comment on above: Result Comment: 3.3 - 4.4 LOW RISK 4.4 - 7.1 AVERAGE RISK 7.1 - 11.0 MODERATE RISK >11.0 HIGH RISK Performed By: #### T 7, LIPID, TSH, CMP #### [facility] [address] [address] [address] Judd Andrade Cholesterol [Mass/Vol] 216 mg/dL Critically high <=200 [facility] Comment on above: Performed By: #### T 7, LIPID, TSH, CMP #### [facility] [address] [address] [address] Judd Andrade Cholesterol in HDL [Mass/Vol] 87 mg/dL Critically high 40-60 [facility] Comment on above: Performed By: #### T 7, LIPID, TSH, CMP #### [facility] [address] [address] [address] Judd Andrade Cholesterol in LDL [Mass/Vol] 124.2 mg/dL Normal [facility] Comment on above: Performed By: #### T 7, LIPID, TSH, CMP #### [facility] [address] [address] [address] Judd Andrade Cholesterol.total/C holesterol in HDL [Mass ratio] 2.5 {ratio} Normal [facility] Comment on above: Performed By: #### T 7, LIPID, TSH, CMP #### [facility] [address] [address] [address] Judd Andrade HDL NORMAL > or = 60 mg/dl - LO W CARDIOVASCULAR RISK <40 mg/dl - HIGH CARDIOVASCULAR RISK Normal [facility] Comment on above: Performed By: #### T 7, LIPID, TSH, CMP #### [facility] [address] [place] [address] Dr. Judd Andrade LDL CALC NORMAL SEE BELOW Normal [facility] Comment on above: Result Comment: <100 mg/dl OPTIMAL 100 - 129 mg/dl NEAR OR ABOVE OPTIMAL 130 - 159 mg/dl BORDERLINE HIGH 160 - 189 mg/dl HIGH >190 mg/dl VERY HIGH Performed By: #### T 7, LIPID, TSH, CMP #### [facility] [address] [address] [address] Judd Andrade Triglyceride [Mass/Vol] 24 mg/dL Normal <=150 [facility] Comment on above: Performed By: #### T 7, LIPID, TSH, CMP #### [facility] [address] [place] [address] Dr. Judd Andrade VLDL CALC 4.8 mg/dL Normal [facility] Comment on above: Performed By: #### T 7, LIPID, TSH, CMP #### [facility] [address] [place] [address] Dr. Judd Andrade PROF 14(COMP METB)on 023 Albumin [Mass/Vol] 4.0 g/dL Normal 3.4-5.0 [facility] Comment on above: Performed By: #### T 7, LIPID, TSH, CMP #### [facility] [address] [place] [address] Dr. Judd Andrade Albumin/Globulin [Mass ratio] 1.1 {ratio} Normal [facility] Comment on above: Performed By: #### T 7, LIPID, TSH, CMP #### [facility] [address] [place] [address] Dr. Judd Andrade ALP [Catalytic activity/Vol] 78 U/L Normal 46-116 [facility] Comment on above: Performed By: #### T 7, LIPID, TSH, CMP #### [facility] [address] [place] [address] Dr. Judd Andrade ALT [Catalytic activity/Vol] 29 U/L Normal 14-59 [facility] Comment on above: Performed By: #### T 7, LIPID, TSH, CMP #### [facility] [address] [address] [address] Judd Andrade Anion gap [Moles/Vol] 5.6 mmol/L Normal [facility] Comment on above: Performed By: #### T 7, LIPID, TSH, CMP #### [facility] [address] [address] [address] Judd Andrade AST [Catalytic activity/Vol] 23 U/L Normal 15-37 [facility] Comment on above: Performed By: #### T 7, LIPID, TSH, CMP #### [facility] [address] [place] [address] Dr. Judd Andrade Bilirubin [Mass/Vol] 0.5 mg/dL Normal 0.2-1.0 [facility] Comment on above: Performed By: #### T 7, LIPID, TSH, CMP #### [facility] [address] [place] [address] Dr. Judd Andrade Calcium [Mass/Vol] 8.9 mg/dL Normal 8.5-10.1 [facility] Comment on above: Performed By: #### T 7, LIPID, TSH, CMP #### [facility] [address] [address] [address] Judd Andrade Chloride [Moles/Vol] 105 mmol/L Normal 98-107 [facility] Comment on above: Performed By: #### T 7, LIPID, TSH, CMP #### [facility] [address] [place] [address] Dr. Judd Andrade CO2 [Moles/Vol] 32.0 mmol/L Normal 21.0-32.0 [facility] Comment on above: Performed By: #### T 7, LIPID, TSH, CMP #### [facility] [address] [address] [address] Judd Andrade Creatinine [Mass/Vol] 0.52 mg/dL Critically low 0.55-1.02 [facility] Comment on above: Performed By: #### T 7, LIPID, TSH, CMP #### [facility] [address] [address] [address] Judd Andrade EGFR-AF GAMBIAN >60 Normal >=60 [facility] Comment on above: Performed By: #### T 7, LIPID, TSH, CMP #### [facility] [address] [address] [address] Judd Andrade EGFR-NON AF GAMBIAN >60 Normal >=60 [facility] Comment on above: Performed By: #### T 7, LIPID, TSH, CMP #### [facility] [address] [address] [address] Judd Andrade Globulin (S) [Mass/Vol] 3.6 g/dL Normal [facility] Comment on above: Performed By: #### T 7, LIPID, TSH, CMP #### [facility] [address] [address] [address] Judd Andrade Glucose [Mass/Vol] 89 mg/dL Normal 74-[address] [facility] Comment on above: Performed By: #### T 7, LIPID, TSH, CMP #### [facility] [address] [place] [address] Dr. Judd Andrade Potassium [Moles/Vol] 4.2 mmol/L Normal 3.5-5.1 [facility] Comment on above: Performed By: #### T 7, LIPID, TSH, CMP #### [facility] [address] [place] [address] Dr. Judd Andrade Protein [Mass/Vol] 7.6 g/dL Normal 6.4-8.[address] [facility] Comment on above: Performed By: #### T 7, LIPID, TSH, CMP #### [facility] [address] [address] [address] Judd Andrade Sodium [Moles/Vol] 139 mmol/L Normal 136-[address] [facility] Comment on above: Performed By: #### T 7, LIPID, TSH, CMP #### [facility] [address] [place] [address] Dr. Judd Andrade Urea nitrogen [Mass/Vol] 11.0 mg/dL Normal 7.0-18.0 [facility] Comment on above: Performed By: #### T 7, LIPID, TSH, CMP #### [facility] [address] [place] [address] Dr. Judd Andrade Urea nitrogen/Creatinine [Mass ratio] 21.2 mg/mg Normal [facility] Comment on above: Performed By: #### T 7, LIPID, TSH, CMP #### [facility] [address] [place] [address] Dr. Judd Andrade TSHon 07-03-2022 TSH 1.037 uIU/mL Normal 0.358-3.740 [facility] Comment on above: Performed By: #### T 7, LIPID, TSH, CMP #### [facility] [address] [place] [address] Dr. Judd Andrade VITAMIN D 25 OHon 07-03-2022 VIT D 25-OH 32.8 ng/mL Normal [facility] Comment on above: Performed By: #### V CARMELO, IRON #### [facility] [address] [place] [address] Dr. Judd Andrade VIT D RANGES SEE BELOW Normal [facility] Comment on above: Result Comment: <20 ng/mL Vit D deficient 20 - <30 ng/mL Vit D insufficient 30 - 100 ng/mL Vit D sufficient >100 ng/mL Potential Toxicity Performed By: #### V CARMELO, IRON #### [facility] [address] [place] [address] Dr. Judd Andrade BORDETELLA PERTUSSIS AB IGGo n 06-30-2022 B pertussis IgG Ab 3.88 index Invalid Interpretation Code 0.00-0.94 [facility] Comment on above: Result Comment: Clie nt Requested Flag Negative <0.95 Equivocal 0.95 - 1.04 Positive >1.04 Performed By: #### C BC #### [facility] [address] [place] [address] Dr. Judd Andrade BORDETELLA PERTUSSIS AB IGMo n 06-30-2022 B pertussis IgM Ab <1.0 Normal 0.0-0.9 [facility] Comment on above: Result Comment: Nega tive <1.0 Borderline 1.0 - 1.1 Positive >1.1 Performed By: #### H STROPN, CMP #### [facility] [address] [place] [address] Dr. Judd Andrade [id number] 2022 Kdxsg-[id number] , Serum 158 mg/dL Normal 101-187 [facility] Comment on above: Performed By: #### C BC #### [facility] [address] [address] [address] Judd Andrade CBC AUTO DIFFon 06-03-2022 BASO # 0.0 103/ul Normal 0.0-0.1 [facility] Comment on above: Performed By: #### H STROPN, CMP #### [facility] [address] [address] [address] Judd Andrade Basophils/100 WBC (Bld) 0.6 % Normal 0.2-2.0 [facility] Comment on above: Performed By: #### H STROPN, CMP #### [facility] [address] [address] [address] Judd Andrade EO # 0.0 103/ul Normal 0.0-0.7 [facility] Comment on above: Performed By: #### H STROPN, CMP #### [facility] [address] [address] [address] Judd Andrade Eosinophils/100 WBC (Bld) 0.6 % Critically low 0.9-7.0 [facility] Comment on above: Performed By: #### H STROPN, CMP #### [facility] [address] [address] [address] Judd Andrade Erythrocyte distribution width (RBC) [Ratio] 13.5 % Normal 11.0-15.0 [facility] Comment on above: Performed By: #### H STROPN, CMP #### [facility] [address] [address] [address] Judd Andrade Hematocrit (Bld) [Volume fraction] 42.4 % Normal 36.0-48.0 [facility] Comment on above: Performed By: #### H STROPN, CMP #### [facility] [address] [address] [address] Judd Andrade Hemoglobin (Bld) [Mass/Vol] 13.4 g/dL Normal 12.0-16.0 [facility] Comment on above: Performed By: #### H STROPN, CMP #### [facility] [address] [place] [address] Dr. Judd Andrade IG # 0.01 10e3/ul Normal 0.00-0.03 [facility] Comment on above: Performed By: #### H STROPN, CMP #### [facility] [address] [place] [address] Dr. Judd Andrade IG % 0.2 % Normal 0.0-0.5 [facility] Comment on above: Performed By: #### H STROPN, CMP #### [facility] [address] [place] [address] Dr. Judd Andrade LYMPH # 1.1 103/ul Critically low 1.2-3.8 [facility] Comment on above: Performed By: #### H STROPN, CMP #### [facility] [address] [place] [address] Dr. Judd Andrade Lymphocytes/100 WBC (Bld) 23.5 % Normal 20.5-60.0 [facility] Comment on above: Performed By: #### H STROPN, CMP #### [facility] [address] [place] [address] Dr. Judd Andrade MANUAL DIFF REQ NO Normal [facility] Comment on above: Performed By: #### H STROPN, CMP #### [facility] [address] [place] [address] Dr. Judd Andrade MCH (RBC) [Entitic mass] 28.9 pg Normal 26.7-34.0 [facility] Comment on above: Performed By: #### H STROPN, CMP #### [facility] [address] [place] [address] Dr. Judd Andrade MCHC (RBC) [Mass/Vol] 31.6 g/dL Normal 29.9-35.2 [facility] Comment on above: Performed By: #### H STROPN, CMP #### [facility] [address] [place] [address] Dr. Judd Andrade MCV (RBC) [Entitic vol] 91.6 fL Normal 81.0-99.0 [facility] Comment on above: Performed By: #### H DEB, CMP #### [facility] [address] [place] [address] Dr. Judd Andrade MONO # 0.8 103/ul Normal 0.3-0.8 [facility] Comment on above: Performed By: #### H DEB, CMP #### [facility] [address] [place] [address] Dr. Judd Andrade Monocytes/100 WBC (Bld) 16.5 % Critically high 1.7-12.0 [facility] Comment on above: Performed By: #### H DEB, CMP #### [facility] [address] [place] [address] Dr. Judd Andrade NEUT # 2.7 103/ul Normal 1.4-6.5 [facility] Comment on above: Performed By: #### H DEB, CMP #### [facility] [address] [place] [address] Dr. Judd Andrade Neutrophils/100 WBC (Bld) 58.6 % Normal 43.0-75.0 [facility] Comment on above: Performed By: #### H DEB, CMP #### [facility] [address] [place] [address] Dr. Judd Andrade Platelet mean volume (Bld) [Entitic vol] 9.8 fL Normal 9.5-13.5 [facility] Comment on above: Performed By: #### H DEB, CMP #### [facility] [address] [place] [address] Dr. Judd Andrade PLT 252 103/ul Normal 150-450 [facility] Comment on above: Performed By: #### H TERAPN, CMP #### [facility] [address] [place] [address] Dr. Judd Andrade RBC 4.63 106/ul Normal 4.20-5.40 [facility] Comment on above: Performed By: #### H DEB, CMP #### [facility] [address] [place], [place] [id number] Dr. Judd Andrade WBC 4.7 103/ul Normal 4.0-11.0 [facility] Comment on above: Performed By: #### H DEB, CMP #### [facility] [address] [place] [address] Dr. Judd Andrade PROF 14(COMP METB)on 023 Albumin [Mass/Vol] 4.0 g/dL Normal 3.4-5.0 [facility] Comment on above: Performed By: #### H TERAPN, CMP #### [facility] [address] [place] [address] Dr. Judd Andrade Albumin/Globulin [Mass ratio] 1.0 {ratio} Normal [facility] Comment on above: Performed By: #### H DEB, CMP #### [facility] [address] [place] [address] Dr. Judd Andrade ALP [Catalytic activity/Vol] 77 U/L Normal 46-116 [facility] Comment on above: Performed By: #### H TERAPN, CMP #### [facility] [address] [place] [address] Dr. Judd Andrade ALT [Catalytic activity/Vol] 33 U/L Normal 14-59 [facility] Comment on above: Performed By: #### H DEB, CMP #### [facility] [address] [place] [address] Dr. Judd Andrade Anion gap [Moles/Vol] 8.0 mmol/L Normal [facility] Comment on above: Performed By: #### H TERAPN, CMP #### [facility] [address] [place] [address] Dr. Judd Andrade AST [Catalytic activity/Vol] 28 U/L Normal 15-37 [facility] Comment on above: Performed By: #### H STROPN, CMP #### [facility] [address] [place] [address] Dr. Judd Andrade Bilirubin [Mass/Vol] 0.6 mg/dL Normal 0.2-1.0 [facility] Comment on above: Performed By: #### H STROPN, CMP #### [facility] [address] [address] [address] Judd Andrade Calcium [Mass/Vol] 9.3 mg/dL Normal 8.5-10.1 [facility] Comment on above: Performed By: #### H STROPN, CMP #### [facility] [address] [address] [address] Judd Andrade Chloride [Moles/Vol] 103 mmol/L Normal 98-107 [facility] Comment on above: Performed By: #### H STROPN, CMP #### [facility] [address] [address] [address] Judd Andrade CO2 [Moles/Vol] 33.6 mmol/L Critically high 21.0-32.0 [facility] Comment on above: Performed By: #### H STROPN, CMP #### [facility] [address] [place] [address] Dr. Judd Andrade Creatinine [Mass/Vol] 0.59 mg/dL Normal 0.55-1.02 [facility] Comment on above: Performed By: #### H STROPN, CMP #### [facility] [address] [address] [address] Judd Andrade EGFR-AF GAMBIAN >60 Normal >=60 [facility] Comment on above: Performed By: #### H STROPN, CMP #### [facility] [address] [place] [address] Dr. Judd Andrade EGFR-NON AF GAMBIAN >60 Normal >=60 [facility] Comment on above: Performed By: #### H STROPN, CMP #### [facility] [address] [address] [address] Judd Andrade Globulin (S) [Mass/Vol] 4.0 g/dL Normal [facility] Comment on above: Performed By: #### H STROPN, CMP #### [facility] [address] [address] [address] Judd Andrade Glucose [Mass/Vol] 130 mg/dL Critically high 74-106 [facility] Comment on above: Performed By: #### H STROPN, CMP #### [facility] [address] [address] [address] Judd Andrade Potassium [Moles/Vol] 3.6 mmol/L Normal 3.5-5.1 [facility] Comment on above: Performed By: #### H STROPN, CMP #### [facility] [address] [address] [address] Judd Andrade Protein [Mass/Vol] 8.0 g/dL Normal 6.4-8.[address] [facility] Comment on above: Performed By: #### H STROPN, CMP #### [facility] [address] [address] [address] Judd Andrade Sodium [Moles/Vol] 141 mmol/L Normal 136-145 [facility] Comment on above: Performed By: #### H STROPN, CMP #### [facility] [address] [place] [address] Dr. Judd Andrade Urea nitrogen [Mass/Vol] 8.0 mg/dL Normal 7.0-18.0 [facility] Comment on above: Performed By: #### H STROPN, CMP #### [facility] [address] [place] [address] Dr. Judd Andrade Urea nitrogen/Creatinine [Mass ratio] 13.6 mg/mg Normal [facility] Comment on above: Performed By: #### H STROPN, CMP #### [facility] [address] [place] [address] Dr. Judd Andrade TROPONIN, HIGH SENSITIVITYon 06-03-2022 HSTROP <4.0 Normal 4.0-51.3 [facility] Comment on above: Result Comment: CUT- OFF POINTS HAVE BEEN ESTABLISHED BASED ON THE FOURTH UNIVERSAL DEFINITIONS OF MYOCARDIAL INFARCTION. THE UPPER REFERENCE LIMIT (URL) OF TROPONIN, DEFINED THE 99TH PERCENTILE OF cTnI DISTRIBUTION IN A REFERENCE POPULATION, HAS BEEN CONFIRMED THE DECISION THRESHOLD FOR [place] DIAGNOSIS. Performed By: #### H STROPN, CMP #### [facility] [address] [place] [address] Dr. Judd Andrade XR CHEST 2 Von [...] LINDA TANNG Date: 2022-06-03 12:15 Normal [facility] Covid-19 PCR (CVDTB)on SARS-CoV-2 (COVID-19) RNA JOLLY+probe Ql (Unsp spec) Not detected Normal NOT DETECTED [facility] Comment on above: Result Comment: This test is not yet approved or cleared by the [place] FDA. When there are no FDA-approved or cleared tests available, and other criteria are met, FDA can make tests available under an emergency access mechanism called an Emergency Use Authorization (EUA). The EUA for this test is supported by the [place] Coordinator of Health and Human Service's (HHS's) [...] #### H DEB, CMP #### [facility] [address] [place] [address] Dr. Judd Andrade INFLUENZA A AND B AGon 06-02 INFLUANEGH SEE BELOW Normal [facility] Comment on above: Result Comment: Nega tive for Flu A protein angiten. Infection due to Flu A cannot be ruled out. Flu A angiten in the sample may be below the detection limit of the test. Performed By: #### H DEB, CMP #### [facility] [address] [address] [address] Judd Andrade [facility] SEE BELOW Normal [facility] Comment on above: Result Comment: Nega tive for Flu B protein antigen. Infection due to Flu B cannot be ruled out. Flu B antigen in the sample may be below the detection limit of the test. Performed By: #### H STROPN, CMP #### [facility] [address] [address] [address] Judd Andrade INFLUENZA A AG Negative Normal NEGATIVE SEE COMMENT [facility] Comment on above: Performed By: #### H STROPN, CMP #### [facility] [address] [address] [address] Judd Andrade INFLUENZA B AG Negative Normal NEGATIVE SEE COMMENT [facility] Comment on above: Performed By: #### H STROPN, CMP #### [facility] [address] [address] [address] Jud[address] US ST HEAD_NECKon 02-11-2022 [...] Date: 2022-02-11 16:24 Normal [facility] MG MAMM SCREEN 3D SUSANA CADon 02-10-2022 MG MAMM SCREEN 3D SUSANA CAD Patient: YULIA DORSEY Exam Date: 02/10/2022 : 1965 Gender:F Ordering : DR JOHN PORTER . Admission #: [id number] Family : Order #: [id number] CLICK HERE TO VIEW EXAM RADIOLOGY REPORT [...] at age 40. LOCATION: [facility] BREAST COMPOSITION: Almost entirely fatty. FINDINGS: [...] Strong M.D. on 02/11/2022 at 14:20 Normal [facility] XR CHEST 1 Von 01-15-2022 [...] Date: 2022-01-15 18:39 Normal [facility] CBC AUTO DIFFon 12-30-2021 BASO # 0.0 103/ul Normal 0.0-0.1 [facility] Comment on above: Performed By: #### C BC #### [facility] [address] [address] [address] Judd Andrade Basophils/100 WBC (Bld) 0.6 % Normal 0.2-2.0 [facility] Comment on above: Performed By: #### C BC #### [facility] [address] [address] [address] Judd Andrade EO # 0.1 103/ul Normal 0.0-0.7 [facility] Comment on above: Performed By: #### C BC #### [facility] [address] [address] [address] Judd Andrade Eosinophils/100 WBC (Bld) 2.1 % Normal 0.9-7.0 [facility] Comment on above: Performed By: #### C BC #### [facility] [address] [place] [address] Dr. Judd Andrade Erythrocyte distribution width (RBC) [Ratio] 13.0 % Normal 11.0-15.0 [facility] Comment on above: Performed By: #### C BC #### [facility] [address] [place] [address] Dr. Judd Andrade Hematocrit (Bld) [Volume fraction] 41.9 % Normal 36.0-48.0 [facility] Comment on above: Performed By: #### C BC #### [facility] [address] [place] [address] Dr. Judd Andrade Hemoglobin (Bld) [Mass/Vol] 13.7 g/dL Normal 12.0-16.0 [facility] Comment on above: Performed By: #### C BC #### [facility] [address] [place] [address] Dr. Judd Andrade IG # 0.03 10e3/ul Normal 0.00-0.03 [facility] Comment on above: Performed By: #### C BC #### [facility] [address] [place] [address] Dr. Judd Andrade IG % 0.6 % Critically high 0.0-0.5 [facility] Comment on above: Performed By: #### C BC #### [facility] [address] [place] [address] Dr. Judd Andrade LYMPH # 1.9 103/ul Normal 1.2-3.8 [facility] Comment on above: Performed By: #### C BC #### [facility] [address] [place] [address] Dr. Judd Andrade Lymphocytes/100 WBC (Bld) 34.5 % Normal 20.5-60.0 [facility] Comment on above: Performed By: #### C BC #### [facility] [address] [place] [address] Dr. Judd Andrade MANUAL DIFF REQ NO Normal [facility] Comment on above: Performed By: #### C BC #### [facility] [address] [place] [address] Dr. Judd Andrade MCH (RBC) [Entitic mass] 28.5 pg Normal 26.7-34.0 [facility] Comment on above: Performed By: #### C BC #### [facility] [address] [place] [address] Dr. Judd Andrade MCHC (RBC) [Mass/Vol] 32.7 g/dL Normal 29.9-35.2 [facility] Comment on above: Performed By: #### C BC #### [facility] [address] [place] [address] Dr. Judd Andrade MCV (RBC) [Entitic vol] 87.1 fL Normal 81.0-99.0 [facility] Comment on above: Performed By: #### C BC #### [facility] [address] [place] [address] Dr. Judd Andrade MONO # 0.6 103/ul Normal 0.3-0.8 [facility] Comment on above: Performed By: #### C BC #### [facility] [address] [place] [address] Dr. Judd Andrade Monocytes/100 WBC (Bld) 10.4 % Normal 1.7-12.0 [facility] Comment on above: Performed By: #### C BC #### [facility] [address] [place] [address] Dr. Judd Andrade NEUT # 2.8 103/ul Normal 1.4-6.5 [facility] Comment on above: Performed By: #### C BC #### [facility] [address] [place] [address] Dr. Judd Andrade Neutrophils/100 WBC (Bld) 51.8 % Normal 43.0-75.0 [facility] Comment on above: Performed By: #### C BC #### [facility] [address] [place] [address] Dr. Judd Andrade Platelet mean volume (Bld) [Entitic vol] 10.5 fL Normal 9.5-13.5 [facility] Comment on above: Performed By: #### C BC #### [facility] [address] [place] [address] Dr. Judd Andrade PLT 270 103/ul Normal 150-450 [facility] Comment on above: Performed By: #### C BC #### [facility] [address] [place] [address] Dr. Judd Andrade RBC 4.81 106/ul Normal 4.20-5.40 [facility] Comment on above: Performed By: #### C BC #### [facility] [address] [place] [address] Dr. Judd Andrade WBC 5.4 103/ul Normal 4.0-11.0 [facility] Comment on above: Performed By: #### C BC #### [facility] [address] [place] [address] Dr. Judd Andrade CRPon 12-30-2021 CRP [Mass/Vol] mg/L Normal <=1.0 [facility] Comment on above: Performed By: #### C BC #### [facility] [address] [place] [address] Dr. Judd Andrade PROF 14(COMP METB)on 022 Albumin [Mass/Vol] 3.9 g/dL Normal 3.4-5.0 [facility] Comment on above: Performed By: #### C BC #### [facility] [address] [place] [address] Dr. Judd Andrade Albumin/Globulin [Mass ratio] 1.0 {ratio} Normal [facility] Comment on above: Performed By: #### C BC #### [facility] [address] [place] [address] Dr. Judd Andrade ALP [Catalytic activity/Vol] 64 U/L Normal 46-116 [facility] Comment on above: Performed By: #### C BC #### [facility] [address] [place] [address] Dr. Judd Andrade ALT [Catalytic activity/Vol] 50 U/L Normal 14-59 [facility] Comment on above: Performed By: #### C BC #### [facility] [address] [address] [address] Judd Andrade Anion gap [Moles/Vol] 11.1 mmol/L Normal [facility] Comment on above: Performed By: #### C BC #### [facility] [address] [address] [address] Judd Andrade AST [Catalytic activity/Vol] 28 U/L Normal 15-37 [facility] Comment on above: Performed By: #### C BC #### [facility] [address] [address] [address] Judd Andrade Bilirubin [Mass/Vol] 0.5 mg/dL Normal 0.2-1.0 [facility] Comment on above: Performed By: #### C BC #### [facility] [address] [place] [address] Dr. Judd Andrade Calcium [Mass/Vol] 8.9 mg/dL Normal 8.5-10.1 [facility] Comment on above: Performed By: #### C BC #### [facility] [address] [address] [address] Judd Andrade Chloride [Moles/Vol] 101 mmol/L Normal 98-107 [facility] Comment on above: Performed By: #### C BC #### [facility] [address] [address] [address] Judd Andrade CO2 [Moles/Vol] 29.4 mmol/L Normal 21.0-32.0 [facility] Comment on above: Performed By: #### C BC #### [facility] [address] [address] [address] Judd Andrade Creatinine [Mass/Vol] 0.73 mg/dL Normal 0.55-1.02 [facility] Comment on above: Performed By: #### C BC #### [facility] [address] [address] [address] Judd Andrade EGFR-AF GAMBIAN >60 Normal >=60 [facility] Comment on above: Performed By: #### C BC #### [facility] [address] [place] [address] Dr. Judd Andrade EGFR-NON AF GAMBIAN >60 Normal >=60 [facility] Comment on above: Performed By: #### C BC #### [facility] [address] [address] [address] Judd Andrade Globulin (S) [Mass/Vol] 3.8 g/dL Normal [facility] Comment on above: Performed By: #### C BC #### [facility] [address] [place] [address] Dr. Judd Andrade Glucose [Mass/Vol] 139 mg/dL Critically high 74-106 [facility] Comment on above: Performed By: #### C BC #### [facility] [address] [place] [address] Dr. Judd Andrade Potassium [Moles/Vol] 3.5 mmol/L Normal 3.5-5.1 [facility] Comment on above: Performed By: #### C BC #### [facility] [address] [place] [address] Dr. uJdd Andrade Protein [Mass/Vol] 7.7 g/dL Normal 6.4-8.[address] [facility] Comment on above: Performed By: #### C BC #### [facility] [address] [place] [address] Dr. Judd Andrade Sodium [Moles/Vol] 138 mmol/L Normal 136-[address] [facility] Comment on above: Performed By: #### C BC #### [facility] [address] [place] [address] Dr. Judd Andrade Urea nitrogen [Mass/Vol] 12.0 mg/dL Normal 7.0-18.0 [facility] Comment on above: Performed By: #### C BC #### [facility] [address] [place] [address] Dr. Judd Andrade Urea nitrogen/Creatinine [Mass ratio] 16.4 mg/mg Normal [facility] Comment on above: Performed By: #### C BC #### [facility] [address] [place] [address] Dr. Judd Andrade XR CHEST 2 Von [...] Date: 2021-12-29 20:49 Normal [facility] TRYPTASEon 12-27-2021 Tryptase 4.5 ug/L Normal 2.2-13.2 [facility] Comment on above: Performed By: #### C BC #### [facility] [address] [place] [address] Dr. Judd Andrade CBC AUTO DIFFon 12-23-2021 BASO # 0.0 103/ul Normal 0.0-0.1 [facility] Comment on above: Performed By: #### H STROPN, CMP #### [facility] [address] [place] [address] Dr. Judd Andrade Basophils/100 WBC (Bld) 0.7 % Normal 0.2-2.0 [facility] Comment on above: Performed By: #### H STROPN, CMP #### [facility] [address] [place] [address] Dr. Judd Andrade EO # 0.0 103/ul Normal 0.0-0.7 [facility] Comment on above: Performed By: #### H STROPN, CMP #### [facility] [address] [place] [address] Dr. Judd Andrade Eosinophils/100 WBC (Bld) 0.0 % Critically low 0.9-7.0 [facility] Comment on above: Performed By: #### H STROPN, CMP #### [facility] [address] [place] [address] Dr. Judd Andrade Erythrocyte distribution width (RBC) [Ratio] 13.2 % Normal 11.0-15.0 [facility] Comment on above: Performed By: #### H STROPN, CMP #### [facility] [address] [place] [address] Dr. Judd Andrade Hematocrit (Bld) [Volume fraction] 42.1 % Normal 36.0-48.0 [facility] Comment on above: Performed By: #### H STROPN, CMP #### [facility] [address] [place] [address] Dr. Judd Andrade Hemoglobin (Bld) [Mass/Vol] 13.7 g/dL Normal 12.0-16.0 [facility] Comment on above: Performed By: #### H STROPN, CMP #### [facility] [address] [place] [address] Dr. Judd Andrade IG # 0.01 10e3/ul Normal 0.00-0.03 [facility] Comment on above: Performed By: #### H STROPN, CMP #### [facility] [address] [place] [address] Dr. Judd Andrade IG % 0.3 % Normal 0.0-0.5 [facility] Comment on above: Performed By: #### H STROPN, CMP #### [facility] [address] [place] [address] Dr. Judd Andrade LYMPH # 0.7 103/ul Critically low 1.2-3.8 [facility] Comment on above: Performed By: #### H STROPN, CMP #### [facility] [address] [place] [address] Dr. Judd Andrade Lymphocytes/100 WBC (Bld) 24.1 % Normal 20.5-60.0 [facility] Comment on above: Performed By: #### H STROPN, CMP #### [facility] [address] [place] [address] Dr. Judd Andrade MANUAL DIFF REQ NO Normal [facility] Comment on above: Performed By: #### H STROPN, CMP #### [facility] [address] [place] [address] Dr. Judd Andrade MCH (RBC) [Entitic mass] 28.4 pg Normal 26.7-34.0 [facility] Comment on above: Performed By: #### H STROPN, CMP #### [facility] [address] [place] [address] Dr. Judd Andrade MCHC (RBC) [Mass/Vol] 32.5 g/dL Normal 29.9-35.2 [facility] Comment on above: Performed By: #### H STROPN, CMP #### [facility] [address] [place] [address] Dr. Judd Andrade MCV (RBC) [Entitic vol] 87.2 fL Normal 81.0-99.0 [facility] Comment on above: Performed By: #### H STROPN, CMP #### [facility] [address] [place] [address] Dr. Judd Andrade MONO # 0.5 103/ul Normal 0.3-0.8 [facility] Comment on above: Performed By: #### H STROPN, CMP #### [facility] [address] [place] [address] Dr. Judd Andrade Monocytes/100 WBC (Bld) 16.9 % Critically high 1.7-12.0 [facility] Comment on above: Performed By: #### H STROPN, CMP #### [facility] [address] [place] [address] Dr. Judd Andrade NEUT # 1.8 103/ul Normal 1.4-6.5 [facility] Comment on above: Performed By: #### H STROPN, CMP #### [facility] [address] [place] [address] Dr. Judd Andrade Neutrophils/100 WBC (Bld) 58.0 % Normal 43.0-75.0 [facility] Comment on above: Performed By: #### H STROPN, CMP #### [facility] [address] [place] [address] Dr. Judd Andrade Platelet mean volume (Bld) [Entitic vol] 9.9 fL Normal 9.5-13.5 [facility] Comment on above: Performed By: #### H STROPN, CMP #### [facility] [address] [place] [address] Dr. Judd Andrade PLT 210 103/ul Normal 150-450 [facility] Comment on above: Performed By: #### H TERAPN, CMP #### [facility] [address] [place] [address] Dr. Judd Adnrade RBC 4.83 106/ul Normal 4.20-5.40 [facility] Comment on above: Performed By: #### H TERAPN, CMP #### [facility] [address] [place] [address] Dr. Judd Andrade WBC 3.1 103/ul Critically low 4.0-11.0 [facility] Comment on above: Performed By: #### H DEB, CMP #### [facility] [address] [place] [address] Dr. Judd Andrade IRONon 12-23-2021 Iron [Mass/Vol] 35.0 ug/dL Critically low 50.0-170.0 [facility] Comment on above: Performed By: #### C BC #### [facility] [address] [place] [address] Dr. Judd Andrade PROF 14(COMP METB)on 022 Albumin [Mass/Vol] 3.9 g/dL Normal 3.4-5.0 [facility] Comment on above: Performed By: #### C BC #### [facility] [address] [place] [address] Dr. Judd Andrade Albumin/Globulin [Mass ratio] 1.0 {ratio} Normal [facility] Comment on above: Performed By: #### C BC #### [facility] [address] [place] [address] Dr. Judd Andrade ALP [Catalytic activity/Vol] 70 U/L Normal 46-116 [facility] Comment on above: Performed By: #### C BC #### [facility] [address] [place] [address] Dr. Judd Andrade ALT [Catalytic activity/Vol] 43 U/L Normal 14-59 [facility] Comment on above: Performed By: #### C BC #### [facility] [address] [place] [address] Dr. Judd Andrade Anion gap [Moles/Vol] 11.5 mmol/L Normal [facility] Comment on above: Performed By: #### C BC #### [facility] [address] [place] [address] Dr. Judd Andrade AST [Catalytic activity/Vol] 33 U/L Normal 15-37 [facility] Comment on above: Performed By: #### C BC #### [facility] [address] [place] [address] Dr. Judd Andrade Bilirubin [Mass/Vol] 0.3 mg/dL Normal 0.2-1.0 [facility] Comment on above: Performed By: #### C BC #### [facility] [address] [place] [address] Dr. Judd Andrade Calcium [Mass/Vol] 8.9 mg/dL Normal 8.5-10.1 [facility] Comment on above: Performed By: #### C BC #### [facility] [address] [place] [address] Dr. Judd Andrade Chloride [Moles/Vol] 101 mmol/L Normal 98-107 [facility] Comment on above: Performed By: #### C BC #### [facility] [address] [place] [address] Dr. Judd Andrade CO2 [Moles/Vol] 31.1 mmol/L Normal 21.0-32.0 [facility] Comment on above: Performed By: #### C BC #### [facility] [address] [place] [address] Dr. Judd Andrade Creatinine [Mass/Vol] 0.69 mg/dL Normal 0.55-1.02 [facility] Comment on above: Performed By: #### C BC #### [facility] [address] [place] [address] Dr. Judd Andrade EGFR-AF GAMBIAN >60 Normal >=60 [facility] Comment on above: Performed By: #### C BC #### [facility] [address] [place] [address] Dr. Judd Andrade EGFR-NON AF GAMBIAN >60 Normal >=60 [facility] Comment on above: Performed By: #### C BC #### [facility] [address] [address] [address] Judd Andrade Globulin (S) [Mass/Vol] 3.8 g/dL Normal [facility] Comment on above: Performed By: #### C BC #### [facility] [address] [address] [address] Judd Andrade Glucose [Mass/Vol] 103 mg/dL Normal 74-106 [facility] Comment on above: Performed By: #### C BC #### [facility] [address] [place] [address] Dr. Judd Andrade Potassium [Moles/Vol] 3.6 mmol/L Normal 3.5-5.1 [facility] Comment on above: Performed By: #### C BC #### [facility] [address] [place] [address] Dr. Judd Andrade Protein [Mass/Vol] 7.7 g/dL Normal 6.4-8.2 [facility] Comment on above: Performed By: #### C BC #### [facility] [address] [place] [address] Dr. Judd Andrade Sodium [Moles/Vol] 140 mmol/L Normal 136-145 [facility] Comment on above: Performed By: #### C BC #### [facility] [address] [place] [address] Dr. Judd Andrade Urea nitrogen [Mass/Vol] 11.0 mg/dL Normal 7.0-18.0 [facility] Comment on above: Performed By: #### C BC #### [facility] [address] [place] [address] Dr. Judd Andrade Urea nitrogen/Creatinine [Mass ratio] 15.9 mg/mg Normal [facility] Comment on above: Performed By: #### C BC #### [facility] [address] [place] [address] Dr. Judd Andrade PROTIMEon 12-23-2021 INR Coag (PPP) [Relative time] 1.04 {INR} Normal [facility] Comment on above: Performed By: #### H DEB, CMP #### [facility] [address] [place] [address] Dr. Judd Andrade INR GUIDELINES SEE BELOW Normal [facility] Comment on above: Result Comment: PRIETO RED INR: 2.0 - 3.0 CONDITIONS NOT LISTED BELOW 2.5 - 3.5 FOR PROSTHETIC HEART VALVE REPLACEMENT 2.5 - 3.5 RECURRENT THROMBOSIS Performed By: #### H DEB, CMP #### [facility] [address] [place] [address] Dr. Judd Andrade PT Coag (PPP) [Time] 11.2 s Normal 9.0-11.6 [facility] Comment on above: Performed By: #### H DEB, CMP #### [facility] [address] [place] [address] Dr. Judd Andrade PTTon 12-23-2021 aPTT Coag (Bld) [Time] 31.5 s Normal 22.3-36.2 [facility] Comment on above: Performed By: #### H DEB, CMP #### [facility] [address] [place] [address] Dr. Judd Andrade ER URINE PROFILEon 2 Bilirubin Ql (U) Negative Normal NEGATIVE [facility] Comment on above: Performed By: #### H DEB, CMP #### [facility] [address] [place] [address] Dr. Judd Andrade Clarity (U) CLEAR Normal CLEAR [facility] Comment on above: Performed By: #### H DEB, CMP #### [facility] [address] [place] [address] Dr. Judd Andrade Color (U) LT. YELLOW Normal YELLOW [facility] Comment on above: Performed By: #### H DEB, CMP #### [facility] [address] [place] [address] Dr. Judd Andrade ERUAHRomina A micrscopic examination will be performed if indicated. Normal [facility] Comment on above: Performed By: #### H DEB, CMP #### [facility] [address] [place] [address] Dr. Judd Andrade Glucose Ql (U) Negative Normal NEGATIVE [facility] Comment on above: Performed By: #### H STROPN, CMP #### [facility] [address] [address] [address] Judd Andrade Hemoglobin Ql (U) TRACE-INTACT Abnormal NEGATIVE [facility] Comment on above: Performed By: #### H STROPN, CMP #### [facility] [address] [address] [address] Judd Andrade Ketones Ql (U) Negative Normal NEGATIVE [facility] Comment on above: Performed By: #### H STROPN, CMP #### [facility] [address] [address] [address] Judd Andrade LEUKOCYTES Negative Normal NEGATIVE [facility] Comment on above: Performed By: #### H STROPN, CMP #### [facility] [address] [place] [address] Dr. Judd Andrade Nitrite Ql (U) Negative Normal NEGATIVE [facility] Comment on above: Performed By: #### H STROPN, CMP #### [facility] [address] [address] [address] Judd Andrade pH (U) 6.0 [pH] Normal 5-9 [facility] Comment on above: Performed By: #### H STROPN, CMP #### [facility] [address] [place] [address] Dr. Judd Andrade SPEC GRAVITY 1.005 Normal 1.005-<=1.025 [facility] Comment on above: Performed By: #### H STROPN, CMP #### [facility] [address] [address] [address] Judd Andrade UA PROTEIN Negative Normal NEGATIVE/ TRACE [facility] Comment on above: Performed By: #### H STROPN, CMP #### [facility] [address] [address] [address] Judd Andrade UR MICRO IND INDICATED Normal [facility] Comment on above: Performed By: #### H STROPN, CMP #### [facility] [address] [place] [address] Dr. Judd Andrade Urobilinogen Qn (U) 0.2 {Carol'U}/dL Normal 0.2 - 1. 0 [facility] Comment on above: Performed By: #### H STROPN, CMP #### [facility] [address] [address] [address] Judd Andrade URINE MICROSCOPIC ONLYon BACTERIA NONE SEEN Normal NONE SEEN [facility] Comment on above: Performed By: #### H STROPN, CMP #### [facility] [address] [place] [address] Dr. Judd Andrade Bacteria identified Cx Nom (U) NOT INDICATED Normal [facility] Comment on above: Performed By: #### H STROPN, CMP #### [facility] [address] [place] [address] Dr. Judd Andrade CAST NONE SEEN Normal NONE SEEN [facility] Comment on above: Performed By: #### H STROPN, CMP #### [facility] [address] [place] [address] Dr. Judd Andrade Crystals LM Nom (Urine sed) NONE SEEN Normal NONE SEEN [facility] Comment on above: Performed By: #### H STROPN, CMP #### [facility] [address] [place] [address] Dr. Judd Andrade Epithelial cells LM Ql (Urine sed) FEW Abnormal NONE SEEN /RARE [facility] Comment on above: Performed By: #### H STROPN, CMP #### [facility] [address] [place] [address] Dr. Judd Andrade MUCOUS NONE SEEN Normal NONE SEEN [facility] Comment on above: Performed By: #### H STROPN, CMP #### [facility] [address] [place] [address] Dr. Judd Andrade RBC 0-2 Normal 0-2 [facility] Comment on above: Performed By: #### H STROPN, CMP #### [facility] [address] [place] [address] Dr. Judd Andrade WBC NONE SEEN Normal NONE SEEN [facility] Comment on above: Performed By: #### H STROPN, CMP #### [facility] [address] [address] [address] Judd Andrade Vital Signs Date Time Vital Sign Value Performing Clinician Facility 01-20-2024 12:02-0400 Body mass index (BMI) [Ratio] 28.34 kg/m2 Katie Yocasta DO Work Phone: [facility] 01-20-2024 12:02-0400 Body weight 72.58 kg Katie Yocasta DO Work Phone: [facility] 01-20-2024 12:02-0400 Diastolic blood pressure 80 mm[Hg] Katie Yocasta DO Work Phone: [facility] 01-20-2024 12:02-0400 Systolic blood pressure 160 mm[Hg] Katie Yocasta DO Work Phone: [facility] 01-03-2024 13:11-0400 Body mass index (BMI) [Ratio] 28.17 kg/m2 Katie Yocasta DO Work Phone: [facility] 01-03-2024 13:11-0400 Body weight 72.12 kg Katie Yocasta DO Work Phone: [facility] 01-03-2024 13:11-0400 Diastolic blood pressure 70 mm[Hg] Katie Yocasta DO Work Phone: [facility] 01-03-2024 13:11-0400 Systolic blood pressure 120 mm[Hg] Katie Yocasta DO Work Phone: [facility] 12-30-2023 13:48-0400 Blood Pressure Location Bessie Galea [facility] 12-30-2023 13:48-0400 Diastolic blood pressure 82 mm[Hg] Bessie Galea [facility] 12-30-2023 13:48-0400 Heart rate 80 /min Bessie Galea [facility] 12-30-2023 13:48-0400 Respiratory rate 16 /min Bessie Gong [facility] 12-30-2023 13:48-0400 Systolic blood pressure 117 mm[Hg] Bessie Gong [facility] 12-21-2023 11:47-0400 Body mass index (BMI) [Ratio] 27.99 kg/m2 Radha KAY Work Phone: [facility] 12-21-2023 11:47-0400 Body weight 71.67 kg Radha KAY Work Phone: [facility] 12-21-2023 11:47-0400 Diastolic blood pressure 78 mm[Hg] Radha KAY Work Phone: [facility] 12-21-2023 11:47-0400 Systolic blood pressure 118 mm[Hg] Radha KAY Work Phone: [facility] Encounters Encounter Date Encounter Type Care Provider Facility Start: 07-03-2024 End: 07-03-2024 [facility] Start: 06-19-2024 End: 06-19-2024 [facility] Start: 06-06-2024 End: 06-06-2024 [facility] Start: 05-30-2024 End: 05-30-2024 Clinisync Result Encounter Katie Yocasta DO Work Phone: [facility] Unsolicited Start: 05-30-2024 End: 05-30-2024 Clinisync Result Encounter Katie Yocasta DO Work Phone: [facility] Unsolicited Start: 05-29-2024 End: 05-29-2024 [facility] Start: 05-22-2024 End: 05-22-2024 [facility] Start: 05-08-2024 End: 05-08-2024 ambulatory IRIS GABRIEL [facility] Start: 01-20-2024 End: 01-20-2024 Bamboo [...] Result Encounter Katie Yocasta DO Work Phone: [facility] External Department Unsolicited Start: 01-07-2024 End: 01-07-2024 Clinisync Result Encounter Katie Yocasta DO Work Phone: [facility] External Department Unsolicited Start: 01-07-2024 End: 01-07-2024 ambulatory MD John Porter Work Phone: [facility] Work Phone: Start: 01-07-2024 End: 01-07-2024 Departed Referred MD John Porter Work Phone: [facility] Start: 01-03-2024 End: 01-03-2024 Bamboo flowsheet Katie Yocasta DO Work Phone: [facility] Start: 01-03-2024 End: 01-03-2024 Bamboo flowsheet Katie Yocasta DO Work Phone: [facility] Start: 01-03-2024 End: 01-03-2024 Office outpatient visit 15 minutes Katie Yocasta DO Work Phone: [facility] Comment on above: Pre-op examination; Yeast infection; Thickened endometrium; Pelvic pain Start: 01-03-2024 End: 01-03-2024 Preprocedural examination done Katie Yocasta DO Work Phone: [facility] Start: 01-03-2024 End: 01-03-2024 ambulatory KATIE YOCASTA Not Available Start: 12-30-2023 End: 12-30-2023 ambulatory Bessie J Reubendoreen Facility:[facility] Start: 12-30-2023 End: 12-30-2023 Patient encounter procedure Bessie Ly Gong [facility] Start: 12-29-2023 End: 12-29-2023 Phys/qhp telephone evaluation 5-10 min Katie Yocasta DO Work Phone: [facility] Comment on above: Urinary tract infect ion without hematuria, site unspecified; Vulvar irritation Start: 12-21-2023 End: 12-21-2023 Bamboo flowsheet Radha KAY Work Phone: [facility] Start: 12-21-2023 End: 12-22-2023 Bamboo flowsheet Radha KAY Work Phone: [facility] Start: 12-21-2023 End: 12-22-2023 External Result Encounter Radha KAY Work Phone: [facility] External Department Unsolicited Start: 12-21-2023 End: [...] dy response examination DR JOHN PORTER . [facility] Start: 06-26-2022 End: 06-27-2022 ambulatory [...] Visit [facility] [address] [place] [id number] Katie Rust DO [address] [place] [address] [facility] Start: 01-07-2024 End: 01-07-2024 Patient encounter procedure 01/07/2024 9:00 AM EDT Procedure Visit [facility] Katie Rust, DO [address] [place] [address] [facility] Start: 01-03-2024 End: 01-03-2024 [...] vaccine, adsorbed Bessie Galea [facility] Payers Date Payer Category Payer Self-pay [id number] 2023 Unknown [id number] 2020 Private Health Insurance [employer] [id number] 2020 Unknown FRONTPATH FRONTP ATH [id number] 2020-Present [phone] [address] [place] [address] [id number] [id number] 1965 Unknown [id number] 2.16.840.1.954625.3.579. 2.593 1965 Unknown [id number] 2.16.840.1.418476.3.579. 2.593 1965 Unknown [id number] 2.16.840.1.859300.3.579. 2.593 1965 Unknown [id number] 2.16.840.1.172711.3.579. 2.593 1965 Unknown [id number] 2.16.840.1.699492.3.579. 2.593 1965 Unknown [id number] 2.16.840.1.343637.3.579. 2.593 1965 Unknown [id number] 2.16.840.1.378574.3.579. 2.593 1965 Unknown [id number] 2.16.840.1.177159.3.579. 2.593 1965 Unknown [id number] 2.16.840.1.330313.3.579. 2.593 1965 Unknown [id number] 2.16.840.1.061980.3.579. 2.593 1965 Unknown [id number] 2.16.840.1.979886.3.579. 2.593 1965 Unknown [id number] 2.16.840.1.723136.3.579. 2.593 1965 Unknown [id number] 2.16.840.1.896518.3.579. 2.593 1965 Unknown [id number] 2.16.840.1.345337.3.579. 2.593 1965 Unknown [id number] 2.16.840.1.481582.3.579. 2.593 1965 Unknown [id number] 2.16.840.1.050952.3.579. 2.593 1965 Unknown [id number] 2.16.840.1.169448.3.579. 2.593 1965 Unknown [id number] 2.16.840.1.540897.3.579. 2.593 1965 Unknown [id number] 2.16.840.1.394000.3.579. 2.59 1965 Unknown [id number] 2.16.840.1.285989.3.579. 2.59 1965 Unknown [id number] 2.16.840.1.021145.3.579. 2.593 1965 Unknown [id number] 2.16.840.1.193469.3.579. 2.59 1965 Unknown [id number] 2.16.840.1.891818.3.579. 2.593 1965 Unknown [id number] 2.16.840.1.088191.3.579. 2.593 1965 Unknown [id number] 2.16.840.1.988642.3.579. 2.1259 1965 Unknown [id number] 2.16.840.1.993415.3.579. 2.125 1965 Unknown [id number] 2.16.840.1.033431.3.579. 2.1259 1965 Unknown [id number] 2.16.840.1.818697.3.579. 2.1259 1965 Unknown [id number] 2.16.840.1.090869.3.579. 2.9 1965 Unknown [id number] 2.16.840.1.616016.3.579. 2.9 1965 Unknown [id number] 2.16.840.1.938665.3.579. 2.727 1965 Unknown [id number] 2.16.840.1.115387.3.579. 2.1286 1965 Unknown [id number] 2.16.840.1.413955.3.579. 2.1285 1965 Unknown [id number] 2.16.840.1.873492.3.579. 2.1285 1965 Unknown [id number] 2.16.840.1.734517.3.579. 2.1285 1965 Unknown [id number] 2.16.840.1.842322.3.579. 2.1285 1965 Unknown [id number] 2.16.840.1.329926.3.579. 2.1286 1959 Self-pay [id number] 1959 Unknown [id number] 1959 Unknown [id number] Unknown [id number] 2.16.840.1.712970.3.579. 2.531 Social History Date Type Detail Facility Start: 12-30-2022 End: 12-30-2023 Tobacco smoking status Ex-smoker (finding) [facility] Tobacco smoking status Never [facility] Start: 11-05-2022 End: 12-21-2023 Sex Assigned At Female [facility] Start: 09-05-2013 Tobacco smoking stat us NHIS Never smoked tobacco (finding) [facility] Start: 1965 Sex Assigned At Female [facility] History of tobacco use Current smoker [facility] History of tobacco use Cigarette Smoker [facility] Start: 01-03-2024 End: 01-20-2024 Alcoholic beverage intake Lifetime non-drinker (finding) [facility] Start: 11-05-2022 End: 12-21-2023 History of Social function [facility] Start: 12-30-2022 Alcohol Comment Caffeine: none [facility] Start: 1965 Sex assigned at Not on file N [facility] [place] [place] [facility] Functional Status Date Assessment Result Facility 12-30-2023 Functional Status N/A [facility] Clinical Notes 12-21-2023 to 01-20-2024 Deepti Palacios, [facility] - 01/20/2024 11:50 AM EDLuis Palacios, [facility] - 01/03/2024 1:00 PM Carlos Buckley, [facility] - 12/29/2023 8:00 AM ELIZA Leggett - [...] Fibrocystic breast changes 10/28/2022 Generalized anxiety disorder ([facility]/HCC) 03/28/2019 Intermittent vertigo 04/26/2004 Irritable bowel syndrome 08/14/2013 Major depressive disorder, single episode, moderate (HCC) ([facility]) 03/28/2019 Meniere's disease 08/14/2013 Menopausal symptoms 11/17/2016 Menorrhagia 10/28/2022 Other specified hearing loss, right ear 02/25/2016 Pressure in head 04/26/2015 Psychological factors affecting medical condition 11/17/2016 Shoulder joint pain 10/28/2022 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[facility]) 11/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 Exam conducted with a rubber mixer present. Vitals: Estimated body mass index is [...] Katie Rust DO documented in this encounter [facility] 01-03-2024 History of Presen t illness [...] nursing note reviewed. Exam conducted with a rubber mixer present. Vitals: Estimated body mass index is [...] reviewed, and patient is to proceed to [facility] OR. Follow Up: Patient is to follow up between 1-2 weeks post operative to assess proper healing and recovery from procedure. Documented by Deepti Palacios LPN on behalf of: Katie Rust DO documented in this encounter [facility] 12-30-2023 Hospital Discharg e instructions Patient [...] provider. Document Revised: 08/21/2021 Document Reviewed: 08/21/2021 [employer] Patient Education 2023 [employer]. Follow Up Care 12/02/2023 13:46:26 With:Farideh BARRERA, Bessie Modi, URL Address: When: Unknown Comments:pending imaging and after PFPT [facility] 12-30-2023 Note Patient Education Obstetrics and [...] provider. Document Revised: 08/21/2021 Document Reviewed: 08/21/2021 [employer] Patient Education ? 2023 [employer] [facility] 12-29-2023 History of Presen t illness Narrative Reason for Appointment: Patient ID: Yulia Dorsey is a 58 y.o. female who presents for Telehealth, UTI, and kidney stone Patient presents today via telephone call for a telehealth appointment. Patients Phone #: [phone] (mobile) Current Medications: has a current medication list which includes the following prescription(s): vitamin c, calcium carbonate, qngzbsk-gndacckls-uoxs, airborne elderberry, and multivitamin. Medical History: Active [...] Katie Rust DO documented in this encounter [facility] 12-21-2023 History of Presen t illness [...] Fibrocystic breast changes 10/28/2022 Generalized anxiety disorder ([facility]/HCC) 03/28/2019 Intermittent vertigo 04/26/2004 Irritable bowel syndrome 08/14/2013 Major depressive disorder, single episode, moderate (HCC) ([facility]/HCC) 03/28/2019 Meniere's disease 08/14/2013 Menopausal symptoms 11/17/2016 Menorrhagia 10/28/2022 Other specified hearing loss, right ear 02/25/2016 Pressure in head 04/26/2015 Psychological factors affecting medical condition 11/17/2016 Shoulder joint pain 10/28/2022 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 Work Phone: Evaluation note Diagnosis Vaginal burning Other specified symptom associated with female genital organs Vaginal itching Pruritus of genital organs documented in this encounter [facility]* Diagnosis Urinary tract infection without hematuria, site unspecified Vulvar irritation documented in this encounter [facility] HealthcareEvaluation note* Diagnosis Pre-op examination Yeast infection Thickened endometrium Nonspecific (abnormal) findings on radiological and other examination of genitourinary organs Pelvic pain documented in this encounter [facility]* Diagnosis Postoperative visit S/P D&C (status post dilation and curettage) Other postprocedural status documented in this encounter [facility] HealthcareProgress note No data available for this section [facility] Summary Purpose Family History No Family History Records Found Relationship Condition Age at Onset Recorded Date/T lópez father Heart disease Unknown mother Unknown History of stroke Unknown Advance Directives No Advanced Directives Records Found Advance Directive Response Recorded Date/ Time Advance Directives No July 15 019 11:52am Additional Source Comments INFORMATION SOURCE (unrecogn ized section and content) DATE CREATED AUTHOR 10/02/2022 [facility] pital DATE CREATED AUTHOR AUTHOR'S ORGANIZ ATION 01/04/2024 [facility] EPIC DATE CREATED AUTHOR AUTHOR'S ORGANIZ ATION 01/09/2024 [facility] DATE CREATED AUTHOR AUTHOR'S ORGANIZ ATION 01/14/2024 [facility] DATE CREATED AUTHOR AUTHOR'S ORGANIZ ATION 07/05/2024 [facility] Patient Care team informatio n (unrecognized section and content) Team Status: Active Member Role Status Dates John Porter MD Primary Care Provider Active Team Status: Inactive Member Role Status Dates John Porter MD Primary Care Provider Active Start: January 07, 2024 End: January 07, 2024 Katie Rust DO Attending Provider Active Start : January 07, 2024 End: January 07, 2024 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 Start Date End Date John Porter MD [address] [place] [address] PCP - General 09/13/22 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 Start Date End Date John Porter MD [address] [place] [address] PCP - General 09/13/22 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 Start Date End Date John Porter MD [address] [place] [address] PCP - General 09/13/22 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 Start Date End Date John Porter MD [address] [place] [address] PCP - General 09/13/22 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 [employer] provides no warranty or guarantee of the accuracy or completeness of information in this document.
== END 2024-08-09 08:54 | disposition home or self-care (01) ==
LOC: MRI 08:53
PROVIDERS: PCP Family Medicine; Visit Provider Family Medicine
DX: R42 Dizziness and giddiness (principal); R51.9 Headache, unspecified
CPT/HCPCS: 70551

== ENCOUNTER 2024-08-25 07:29 | Outpatient (OUT) | payer OTHER, SELFPAY ==
[2024-08-25 08:50] LABS: Alanine Aminotransferase 21 U/L (14-59); Albumin Globulin Ratio 1.1; Albumin Level 3.9 g/dL (3.4-5.0); Alkaline Phosphatase 69 U/L (46-116); Anion Gap 13.9; Aspartate Amino Transferase 18 U/L (15-37); BUN Creatinine Ratio 15.9; Bilirubin Total 0.5 mg/dL (0.2-1.0); Calcium 9.2 mg/dL (8.5-10.1); Chloride 102 mmol/L (98-107); Estimated GFR (African America >60 (>=60 mL/min/1.73m^2); Estimated GFR (Non-African Ame >60 (>=60 mL/min/1.73m^2); Globulin 3.6 g/dL; Glucose 95 mg/dL (74-106); Potassium 3.9 mmol/L (3.5-5.1); Sodium 142 mmol/L (136-145); Total Protein 7.5 g/dL (6.4-8.2)
[2024-08-27 15:07] LABS: Cortisol - AM 22.3 ug/dL (6.2-19.4)
== END 2024-08-25 07:30 | disposition home or self-care (01) ==
LOC: LAB 07:32
PROVIDERS: PCP Family Medicine; Visit Provider Family Medicine
DX: I10 Essential (primary) hypertension (principal)
CPT/HCPCS: 36415; 80053; 82533

== ENCOUNTER 2024-09-01 07:43 | Outpatient (OUT) | payer OTHER, SELFPAY | END 2024-09-01 07:44 | disposition home or self-care (01) | LOC: LAB 07:44 | PROVIDERS: PCP Family Medicine; Visit Provider Family Medicine | DX: H81.09 Meniere's disease, unspecified ear (principal); I10 Essential (primary) hypertension | CPT/HCPCS: 36415; 82533 ==

== ENCOUNTER 2024-09-20 07:19 | Outpatient (OUT) | payer OTHER, SELFPAY ==
--- OUTSIDE RECORDS SUMMARY | 2024-09-07 10:15 | XMS_ITS ---
Author Organization The [facility] in [place] Address [address] [place] [address] Care Team Providers Care Sustainable Design Consultant Name Role Phone Prashant Porter Primary Care Provider Allergies Allergen (clinical drug ingredient) Drug/Non Drug Allergy documented on EMR Reaction Allergy Type Onset Date Status imipramine Imipramine HCl Unknown Drug Allergy A ctive Substance with sulfonamide structure and antibacterial mechanism of action (substance) Sulfa Antibiotics tremors, rash Drug Allergy Active ciprofloxacin Ciprofloxacin vivid dreams/increas ed anxiety Drug Allergy Active erythromycin Erythromycin rash and fever Drug Allergy Active REASON FOR VISIT sleep [phone] Medications Medication SIG (Take, Route, Frequency, Duration) Notes Start Date End Date Status Meloxicam 7.5 MG 1 tablet Orally Once a day for 30 days 04/20/2024 Active ALPRAZolam 0.25 MG 1 tablet Orally Twic e a day for 10 days PRN 09/04/2024 Active Ondansetron 4 MG 1 tablet on the tong ue and allow to dissolve Orally qid for 5 days 07/05/2024 Active Mirabegron ER 25 MG 1 tablet Orally Once a day for 30 day(s) 01/31/2024 Active Meclizine HCl 25 MG 1 tablet as needed O rally every 12 hrs for 30 days PRN Active Hyoscyamine Sulfate 0.125 MG 1-2 tabs SL SL every 4 hrs PRN abd pain 07/05/2024 Active hydrOXYzine HCl 10 MG/5ML 5 - 10 ml Orally every 6 hrs for 30 days As needed 08/04/2024 Active hydrOXYzine HCl 25 MG 1 tablet as needed Orally qid for 10 days 08/03/2024 Active Cranberry Active L-Theanine Active Social History Tobacco Use: Social History Observation Description Date Details (start date - stop date) Never Smoker NA - NA Tobacco Use/Smoking Question Answer Notes Patient is a nonsmoker Problems Problem Type SNOMED Code ICD Code Onset Dates Problem Status W/U Status Risk Notes Problem Insomnia (G47.00) Active confirmed Vital Signs Height 64 in 09/07/2024 Encounters Encounter Location Date Provider Diagnosis [facility] [address] [place] [address] 09/07/2024 Prashant Porter Insomnia G47.00 Assessments Encounter Date Diagnosis (ICD Code) Assessment Notes Treatment Notes Treatment Clinical Notes Section Notes 09/07/2024 Insomnia (ICD-10 - G47.00) Plan Of Treatment No Information Progress Notes * Quang DORSEYOB:1965 ( 59 yo F)Acc No.[id number]:09/07/2024 TeleMed via [employer] Patient: Vicente Eugenia AVITIA Provider: Romina Porter ([facility])MD :1965 A ge:59 Y S ex:Female Date:09/07/2024 Address:[address], [id number] Check In:01:57 PM ESTCheck O ut:02:57 PM EST Subjective: * Chief Complaints: * S leep [phone] * HPI: G eneral: INomnia - gtriend - tried cammomile tea and melatonin - maybe helped one nigh - but anxiety during the day much better last night that failed v kimo fatigued today The patient verbally consented to a TeleHealth encounter and the potential risks involved with a TeleHealth visit (clinical aspects, security considerations, and confidentiality of information) were discussed with the patient. The patient encounter was conducted using a synchronous audio-visual interactive audio telecommunications system called: telephone. Patient is attending the TeleHealth encounter from home. Patient was the only one present in the room. The provider is attending the TeleHealth encounter from their office. Care provided by Telemedicine. Total Time spent during the encounter: 8 min. * Active Problem List J44.9 Chronic obstructive pulmonary disease (COPD) Modified On:07/27/2022 Status:confirmed I10 Essential (primary) hypertension Modified On:07/27/2022 Status:confirmed I10 Elevated blood press ure Modified On:08/04/2022 Status:confirmed J44.9 Chronic obstructive airway disease Modified On:08/02/2022 Status:confirmed J44.9 Chronic obstructive pulmonary disease Modified On:08/02/2022 Status:confirmed U07.1 COVID-19 virus infec tion Modified On:08/02/2022 Status:confirmed N95.1 Hot flashes Modified On:08/02/2022 Status:confirmed B09 Viral exanthem Modified On:08/02/2022 Status:confirmed M54.50 Low back pain, unspe cified Modified On:08/02/2022 Status:confirmed J32.9 Sinusitis Modified On:08/02/2022 Status:confirmed G47.33 Obstructive sleep ap tasha Modified On:08/02/2022 Status:confirmed R06.83 Snoring Modified On:08/02/2022 Status:confirmed N92.1 Breakthrough bleedin g Modified On:08/02/2022 Status:confirmed 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 Modified On:08/02/2022 Status:confirmed K59.00 Constipation Modified On:08/02/2022 Status:confirmed R07.9 Chest pain Modified On:08/02/2022 Status:confirmed J02.0 Streptococcal pharyn gitis Modified On:08/02/2022 Status:confirmed R60.0 Bilateral edema of l ower extremity Modified On:08/02/2022 Status:confirmed M75.40 Shoulder impingement syndrome Modified On:08/02/2022 Status:confirmed M54.2 Neck pain Modified On:08/02/2022 Status:confirmed M79.643 Pain in joint, hand Modified On:08/02/2022 Status:confirmed R53.83 Fatigue Modified On:08/02/2022 Status:confirmed Z00.00 Well adult Modified On:09/25/2022 Status:confirmed L03.031 Infection of nail be d of toe of right foot Modified On:08/02/2022 Status:confirmed H81.09 Meniere disease Modified On:08/04/2022 Status:confirmed R00.2 Palpitations Modified On:08/02/2022 Status:confirmed H81.399 Peripheral vertigo Modified On:08/02/2022 Status:confirmed L30.9 Eczema Modified On:08/02/2022 Status:confirmed J20.9 Acute bronchitis Modified On:08/02/2022 Status:confirmed N92.0 Menorrhagia Modified On:08/02/2022 Status:confirmed S50.01XA Contusion of right e lbow, initial encounter Modified On:08/02/2022 Status:confirmed S16.1XXA Strain of muscle, fa scia and tendon at neck level, initial encounter Modified On:08/02/2022 Status:confirmed D50.9 Anemia, iron deficie ncy Modified On:08/02/2022 Status:confirmed K29.80 Duodenitis Modified On:08/02/2022 Status:confirmed K44.9 Hiatal hernia Modified On:08/02/2022 Status:confirmed K12.0 Aphthous ulcer Modified On:08/02/2022 Status:confirmed J30.2 Seasonal allergic rh initis Modified On:08/02/2022 Status:confirmed B27.90 Infectious mononucle osis without complication, infectious mononucleosis due to unspecified organism Modified On:08/02/2022 Status:confirmed A49.02 MRSA (methicillin re sistant Staphylococcus aureus) Modified On:08/02/2022 Status:confirmed K58.9 Irritable bowel synd amina (IBS) Modified On:08/02/2022 Status:confirmed G43.909 Migraine Modified On:08/02/2022 Status:confirmed B19.9 Viral hepatitis, uns pecified chronicity, unspecified viral hepatitis type Modified On:08/02/2022 Status:confirmed F41.9 Anxiety Modified On:08/02/2022 Status:confirmed R51.9 Generalized headache Modified On:08/02/2022 Status:confirmed K21.9 Gastro-esophageal re flux disease Modified On:08/02/2022 Status:confirmed J30.9 Allergic rhinitis Modified On:08/02/2022 Status:confirmed R55 Near syncope Modified On:08/04/2022 Status:confirmed N92.1 Irregular intermenst rual bleeding Modified On:08/02/2022 Status:confirmed N83.209 Ovarian cyst Modified On:08/02/2022 Status:confirmed F41.0 Panic attack Modified On:08/02/2022 Status:confirmed K52.9 Gastroenteritis Modified On:11/11/2022 Status:confirmed R20.2 Paresthesia of skin Modified On:12/15/2022U Status:confirmed M19.90 Arthritis Modified On:12/25/2022 Status:confirmed M21.862 Other specified acqu ired deformities of left lower leg Modified On:06/15/2023U Status:confirmed L25.9 Contact dermatitis Modified On:07/05/2023U Status:confirmed Z01.818 Pre-op exam Modified On:07/28/2023 Status:confirmed M79.10 Myalgia Modified On:09/13/2023U Status:confirmed N20.0 Kidney stones Modified On:11/25/2023U Status:confirmed N39.0 Acute UTI Modified On:12/16/2023U Status:confirmed E16.2 Hypoglycemia Modified On:01/27/2024U Status:confirmed R22.1 Neck mass Modified On:04/20/2024U Status:confirmed S00.93XA Head contusion Modified On:07/06/2024U Status:confirmed I10 Hypertension Modified On:08/03/2024U Status:confirmed E27.0 Elevated cortisol le michelle Modified On:09/04/2024U Status:confirmed G47.00 Insomnia Modified On:09/07/2024W/U Status:confirmed * Medical History: * Surgical History: T onsils D&C Gallbladder * Hospitalization/Major Diagno stic Procedure: D enies Past Hospitalization * Family History: F ather: alive 81 yrs, diagnosed with Diabetes mellitus without mention of complication, type II or unspecified type, not stated as uncontrolled, Unspecified heart disease. M other: 74 yrs. B rother(s): alive, alcoholism. S on(s): alive. D lauritaer(s): alive. P aternal Grandmother: , diagnosed with Other malignant neoplasm of unspecified site. M aternal Grandfather: , diagnosed with Other malignant neoplasm of unspecified site. 2 brother(s) . 3 son(s) , 3 daughter(s) . . Daugters- 1 , 1 Living Son- 1 , 1 Living Brothers- 1 , 1 Living mother- stroke grandparents and aunt- pancreatic cancer first cousins with breast cancer. * Social History: T obacco Use: T obacco Use/Smoking P atient is a n onsmoker * Medications: T akingALPRAZolam 0.25 MG Tablet 1 tablet Orally Twice a day , Notes to Pharmacist: PRNCranberry hydrOXYzine HCl 25 MG Tablet 1 tablet as needed Orally qid hydrOXYzine HCl 10 MG/5ML Syrup 5 - 10 ml Orally every 6 hrs As neededHyoscyamine Sulfate 0.125 MG Tablet Sublingual 1-2 tabs SL SL every 4 hrs PRN abd pain L-Theanine Meclizine HCl 25 MG Tablet 1 tablet as needed Orally every 12 hrs , Notes to Pharmacist: PRNMeloxicam 7.5 MG Tablet 1 tablet Orally Once a day Mirabegron ER 25 MG Tablet Extended Release 24 Hour 1 tablet Orally Once a day Ondansetron 4 MG Tablet Disintegrating 1 tablet on the tongue and allow to dissolve Orally qid Medication List reviewed and reconciled with the patientTaking ALPRAZolam 0.25 MG Tablet 1 tablet Orally Twice a day , Notes to Pharmacist: PRNTaking Cranberry Taking hydrOXYzine HCl 25 MG Tablet 1 tablet as needed Orally qid Taking hydrOXYzine HCl 10 MG/5ML Syrup 5 - 10 ml Orally every 6 hrs As neededTaking Hyoscyamine Sulfate 0.125 MG Tablet Sublingual 1-2 tabs SL SL every 4 hrs PRN abd pain Taking L-Theanine Taking Meclizine HCl 25 MG Tablet 1 tablet as needed Orally every 12 hrs , Notes to Pharmacist: PRNTaking Meloxicam 7.5 MG Tablet 1 tablet Orally Once a day Taking Mirabegron ER 25 MG Tablet Extended Release 24 Hour 1 tablet Orally Once a day Taking Ondansetron 4 MG Tablet Disintegrating 1 tablet on the tongue and allow to dissolve Orally qid Medication List reviewed and reconciled with the patient * Allergies: S ulfa Antibiotics: tremors, rashImipramine HClErythromycin: rash and feverCiprofloxacin: vivid dreams/increased anxiety - Side Effectsno[Allergies Verified] Objective: * Vitals: H t: 64 in, Ht-cm: 162.56 cm. Assessment: * Assessment: 1. I nsomnia - G47.00 (Primary) Plan: * Treatment: * Procedure Codes: * * Sign off status: Completed Visit Status: C HK (Check Out) true * Provider: Romina Porter ([facility])MD Date: 0 09/07/2024 Generated for Joaquin verdin/Hortensia/Miki on: 09/20/2024 07:22 AM EDT
--- OUTSIDE RECORDS SUMMARY | 2024-09-13 07:42 | XMS_ITS ---
Author Organization The [facility] in [place] Address [address] [place] [address] Care Team Providers Care Audit Spec Name Role Phone German Prashant Primary Care Provider Reason For Referral Diagnosis 1 Elevated cortisol le michelle (E27.0) Referral Organization [facility] Referring Provider First Name Prashant Referring Provider Last Name German Referring Provider [facility] Referred Provider Gala Flores Referred Provider Specialty Endocrinolog y Referral Priority Routine REASON FOR VISIT Cortisol level Encounters Encounter Location Date Provider Diagnosis [facility] [address] [place] [address] 09/13/2024 Prashant Porter Elevated cortisol level E27.0 Assessments Encounter Date Diagnosis (ICD Code) Assessment Notes Treatment Notes Treatment Clinical Notes Section Notes 09/13/2024 Elevated cortisol level (ICD-10 - E27.0) Plan Of Treatment Pending Test Test Name Order Date Cortisol 09/13/2024 Referrals Referral Date Details 09/19/2024 09/19/2024[facility] Notes * Quang DORSEYOB:1965 ( 59 yo F)Acc No.[id number]:09/13/2024 Patient: Vicente AVITIA Eugenia :1965 A ge:59 Y S ex:Female Address:[address] [place], [address] Subjective: * Chief Complaints: * C ortisol level * Medical History: * Surgical History: * Hospitalization/Major Diagno stic Procedure: * Medications: Objective: * Vitals: * Physical Examination: Assessment: * Assessment: 1. E levated cortisol level - E27.0 (Primary) Plan: * Treatment: * Procedure Codes: * true * Date: Generated for Joaquin verdin/Hortensia/Sarahitting on: 0 09/20/2024 07:23 AM EDT Consultation Request Notes Referral Date Referring Provider Referred Provider Not es 09/19/2024 Prashant Porter Ahmad
--- OUTSIDE RECORDS SUMMARY | 2024-09-19 15:55 | XMS_ITS ---
Author Organization [facility] in [place] Address [address] [place] [address] Care Team Providers Care Local Delivery Driver Name Role Phone Prashant Porter Primary Care Provider [phone] Encounters Encounter Location Date Provider Diagnosis [facility] [address] [place] [address] 09/19/2024 Prashant Porter Plan Of Treatment No Information Progress Notes * Quang DORSEYOB:1965 ( 59 yo F)Acc No.[id number]:09/19/2024 UNLOCKED PROGRESS NOTE Patient: Vicente ADORE Eugenia :1965 A ge:59 Y S ex:Female Address:[address] [place], [address] * * Date:
--- OUTSIDE RECORDS SUMMARY | 2024-09-20 07:23 | XMS_ITS | Encounter Summary ---
Author Organization [employer] s tem Address [id number] [address] [place] [address] Care Team Providers Care Stereo Compiler Name Role Phone Estiven Porter MD Primary Care Provider [phone] Encounter Details Date Type Department Care Team (Late Contact Info) Description 09/05/2024 Orders Only [facility] [address] [place] [id number] Ref Prov, [place] [address] Social History Tobacco Use Types Packs/Day Years Used Date Smoking Tobacco: Never Smokeless Tobacco: Never Childcare Answer Date Recorded Childcare Unknown 10/05/2018 Employment Answer Date Recorded Employment Unknown 10/05/2018 Hunger Screening Answer Date Recorded Within the past 12 months we worried whether our food would run out before we got money to buy more. Never True 08/30/2024 Within the past 12 months th e food we bought just didn't last and we didn't have money to get more. Never True 08/30/2024 Purpose - Life Answer Date Recorded Purpose and direction in life Unknown Comments Unknown Sex and Gender Information Value Date Recorded Sex Assigned at Not on file Legal Sex Female 11:43 AM EDT Gender Identity Not on file Sexual Orientation Not on file documented as of this encounter Plan of Treatment Upcoming Encounters Date Type Department Care Team (Late Contact Info) Description 01/30/2025 1:00 PM EDT Office Visit [facility] [address] [place] [address] Allyson Thomas MD [address] [facility] [place] [address] documented as of this encounter Procedures Procedure Name Priority Date/Time Associated Diagnosis Comments MULTIPLE LABS Routine 09/05/2024 1:53 PM EDT documented in this encounter Results * Multiple labs (09/05/2024 1:53 PM EDT) us Not In System Ref Prov [facility] Final Res ult documented in this encounter Visit Diagnoses Not on filedocumented in this encounter Care Teams Stereo Compiler Relationship Specialty Start Date End Date Estiven Porter MD PCP - General Family Medicine 03/22/19 documented as of this encounter
--- OUTSIDE RECORDS SUMMARY | 2024-09-20 07:23 | XMS_ITS | Encounter Summary ---
Author Organization [facility] Address [address] [place] [address] Care Team Providers Care Production Truck Driver Name Role Phone John White MD Primary Care Provider [phone] Encounter Details Date Type Department Care Team (Late st Contact Info) Description 07/19/2023 Clinisync Result Encounter [facility] External Department Unsolicited Katie Rust, DO [address] [facility] [place] [address] Social History Tobacco Use Types Packs/Day Years Used Date Smoking Tobacco: Former Cigarettes Alcohol Use Standard Drinks/Week Comments Never 0 (1 standard drink = 0.6 oz pur e alcohol) Caffeine: none PHQ-2 Answer Date Recorded Patient Health Questionnaire-2 Score 0 11/05/2022 Comments Unknown Sex and Gender Information Value Date Recorded Sex Assigned at Not on file Legal Sex Female 6:38 PM EDT Gender Identity Not on file Sexual Orientation Not on file documented as of this encounter Plan of Treatment Not on file documented as of this encounter Procedures Procedure Name Priority Date/Time Associated Diagnosis Comments ECG 12-LEAD 07/19/2023 3:11 PM EDT documented in this encounter Results * ECG 12-LEAD (07/19/2023 3:11 PM EDT) Anatomical Region Laterality Modality Other 07/19/2023 3:11 PM EDT Narrative 07/21/2023 9:13 AM EDT The [address] [address] Electrocardiograph Report Signed Patient: YULIA DORSEY MR#: [id number] : 1965 Acct:[id number] Age/Sex: 57 / F ADM Date: 07/19/23 Loc: PST Attending Dr: Katie Rust D.O. Ordering Physician: Katie Rust D.O. Date of Service: 07/19/23 Procedure(s): ECG 12 lead Accession Number(s): [id number] cc: The [facility] Test Date: 2023-07-19 Pat Name: YULIA DORSEY Department: Room: - Gender: Female Brand Executive: : 1965 Requested By: KATIE RUST Order Number: [id number] Reading MD: JOHN WHITE Measurements Intervals [place] Rate: 70 P: 63 [place]: 156 QRS: 5 QRSD: 99 T: 60 QT: 408 QTc: 440 Interpretive Statements SINUS RHYTHM POSSIBLE RIGHT VENTRICULAR CONDUCTION DELAY [RSR (QR) IN V1/V2] Compared to ECG 05/16/2018 10:49:06 Right bundle-branch block no longer present Electronically Signed On 07-21-2023 9:13:13 EDT by JOHN WHITE Dictated By: John White M.D. Signed By: 07/21/23 0913 DD/ 1511 TD/TT: Dry Color Tester: Procedure Note Radiology, Radiologist, MD - 07/21/[address] [address] Electrocardiograph Report Signed Patient: YULIA DORSEY LMR#: [id number] : 1965Acct:[id number] Age/Sex: 57 / FADM Date: 07/19/23 Loc: PST Attending Dr: Katie Rust D.O. Ordering Physician: aKtie Rust D.O. Date of Service: 07/19/23 Procedure(s): ECG 12 lead Accession Number(s): [id number] cc: The [facility] Test Date: 2023-07-19 Pat Name: YULIA DORSEY Department: Room: - Gender: Female Brand Executive: : 1965 Requested By: KATIE RUST Order Number: [id number] Reading MD: JOHN WHITE Measurements Intervals [place] Rate: 70 P: 63 [place]: 156 QRS: 5 QRSD: 99 T: 60 QT: 408 QTc: 440 Interpretive Statements SINUS RHYTHM POSSIBLE RIGHT VENTRICULAR CONDUCTION DELAY [RSR (QR) IN V1/V2] Compared to ECG 05/16/2018 10:49:06 Right bundle-branch block no longer present Electronically Signed On 07-21-2023 9:13:13 EDT by JOHN WHITE Dictated By: John White M.D. Signed By:07/21/23 0913 DD/ 1511 TD/TT: Dry Color Tester: us Katie Rust DO [facility] Final Result documented in this encounter Visit Diagnoses Not on filedocumented in this encounter Care Teams Production Truck Driver Relationship Specialty Start Date End Date John White MD PCP - General 09/13/22 documented as of this encounter
--- OUTSIDE RECORDS SUMMARY | 2024-09-20 07:23 | XMS_ITS | Encounter Summary ---
Author Organization [facility] Address [address] [place] [address] Care Team Providers Care Deburring Machine Operator Name Role Phone Estiven Porter MD Primary Care Provider [phone] Encounter Details Date Type Department Care Team (Late st Contact Info) Description 01/07/2024 Clinisync Result Encounter [facility] External Department Unsolicited Katie Rust, DO [address] [facility] [place] [address] Social History Tobacco Use Types Packs/Day Years Used Date Smoking Tobacco: Former Cigarettes Alcohol Use Standard Drinks/Week Comments Never 0 (1 standard drink = 0.6 oz pur e alcohol) Caffeine: none PHQ-2 Answer Date Recorded Patient Health Questionnaire-2 Score 0 11/05/2022 Comments No Sex and Gender Information Value Date Recorded Sex Assigned at Not on file Legal Sex Female 6:38 PM EDT Gender Identity Not on file Sexual Orientation Not on file documented as of this encounter Plan of Treatment Not on file documented as of this encounter Procedures Procedure Name Priority Date/Time Associated Diagnosis Comments ECG 12-LEAD 01/07/2024 7:23 AM EDT documented in this encounter Results * ECG 12-LEAD (01/07/2024 7:23 AM EDT) Anatomical Region Laterality Modality Other 01/07/2024 7:23 AM EDT Narrative 01/07/2024 6:27 PM EDT The [address] [address] Electrocardiograph Report Signed Patient: YULIA DORSEY MR#: [id number] : 1965 Acct:[id number] Age/Sex: 58 / F ADM Date: 01/07/24 Loc: SURGOUT Attending Dr: Katie Rust D.O. Ordering Physician: Katie Rust D.O. 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 Signed By: 01/07/24 1827 DD/ 0723 TD/TT: Microbiology Teacher: Procedure Note Radiology, Radiologist, MD - 01/07/2024 The [place] [id number] Electrocardiograph Report Signed Patient: YULIA DORSEY LMR#: [id number] : 1965Acct:[id number] Age/Sex: 58 / FADM Date: 01/07/24 Loc: SURGOUT Attending Dr: Katie Rust D.O. Ordering Physician: Katie Rust D.O. 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 Signed By:01/07/24 1827 DD/ 0723 TD/TT: Microbiology Teacher: us Katie Rust DO [facility] Final Result documented in this encounter Visit Diagnoses Not on filedocumented in this encounter Care Teams Deburring Machine Operator Relationship Specialty Start Date End Date Estiven Porter MD PCP - General 09/13/22 documented as of this encounter
--- OUTSIDE RECORDS SUMMARY | 2024-09-20 07:23 | XMS_ITS | Clinical Summary ---
Author Organization [facility] Address [address] [place] [address] Care Team Providers Care Resolution Specialist Name Role Phone Estiven Porter MD Primary Care Provider [phone] Allergies Active Allergy Reactions Criticality Noted Date Comments Ciprofloxacin 01/20/2024 Other Reaction(s): vivid dreams/increased anxiety Erythromycin Other 02/25/2016 Other Reaction(s): rash and fever, Unknown Erythromycin Base 12/01/2020 Other Reaction(s): Unknown Other Reaction(s): rash Imipramine Other 02/25/2016 tofranil Other Reaction(s): Unknown Rash, psychosis, tachycardia Other Reaction(s): hallucinations, Unknown Sulfa Antibiotics Rash Low 02/25/2016 Other Reaction(s): Unknown Other Reaction(s): rash Other Reaction(s): tremors, rash Medications CALCIUM MAGNESIUM ZINC PO Take 1 tablet by mouth in the morning. Active Ascorbic Acid (Vitamin C) 500 MG capsule as directed Orally Active calcium carbonate 1500 (600 Ca) MG tablet every 12 (twelve) hours. Active Misc Natural Products (Airborne Elderberry) chewable tablet as directed Orally Active Multiple Vitamin (multivitamin) capsule Take 1 capsule by mouth in the morning. 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 specified hearing loss, right ear 02/25/20 16 Pressure in head 04/26/2015 GERD (gastroesophageal reflux disease) 4 Anxiety state 08/14/2013 Cervical disc disorder 08/14/2013 Irritable bowel syndrome 08/14/2013 Meniere's disease 08/14/2013 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 08/14/2013 Intermittent vertigo 04/26/2004 Family History Medical History Relation Name Comments Hyperlipidemia Brother Hypertension Brother Dementia Father Diabetes Father Heart disease Father Hypertension Father Cancer Maternal Grandfather Diabetes Maternal Grandmother Stroke Mother Cancer Other maternal family hx of stomach and pancreatic cancer Heart disease Paternal Grandmother Hyperlipidemia Paternal Grandmother Relation Name Status Comments Brother 2 brothers Father Alive Maternal Grandfather Maternal Grandmother Mother Alive Other Paternal Grandmother Social History Tobacco Use Types Packs/Day Years Used Date Smoking Tobacco: Former Cigarettes Tobacco Cessation:Counseling Given: Not Answered Alcohol Use Standard Drinks/Week Comments Never 0 (1 standard drink = 0.6 oz pur e alcohol) Caffeine: none PHQ-2 Answer Date Recorded Patient Health Questionnaire-2 Score 0 11/05/2022 Comments No Sex and Gender Information Value Date Recorded Sex Assigned at Not on file Legal Sex Female 6:38 PM EDT Gender Identity Not on file Sexual Orientation Not on file Last Filed Vital Signs Vital Sign Reading Time Taken Comments Blood Pressure 160/80 01/20/2024 12:02 PM EDT Pulse - - Temperature - - Respiratory Rate - - Oxygen Saturation - - Inhaled Oxygen Concentration - - Weight 72.6 kg (160 lb) 01/20/2024 12:02 PM EDT Height 160 cm (5' 3 ) 07/22/2022 12:00 PM EDT Body Mass Index 28.34 07/22/2022 12:00 PM EDT Plan of Treatment Not on file Insurance [employer] Care Teams Resolution Specialist Relationship Specialty Start Date End Date Estiven Porter MD PCP - General 09/13/22
--- OUTSIDE RECORDS SUMMARY | 2024-09-20 07:23 | XMS_ITS | Encounter Summary ---
Author Organization [facility] Address [address] [place] [address] Care Team Providers Care Fisher Quahog Name Role Phone Estiven Porter MD Primary Care Provider [phone] Encounter Details Date Type Department Care Team (Late st Contact Info) Description 09/22/2022 Clinisync Result Encounter [facility] External Department Unsolicited Katie Rust, DO [address] [facility] [place] [address] Social History Tobacco Use Types Packs/Day Years Used Date Smoking Tobacco: Never Assessed Comments Unknown Sex and Gender Information Value Date Recorded Sex Assigned at Not on file Legal Sex Female 6:38 PM EDT Gender Identity Not on file Sexual Orientation Not on file COVID-19 Exposure Response Date Recorded In the last 10 days, have yo u been in contact with someone who was confirmed or suspected to have Coronavirus/COVID-19? No / Unsure 09/13/2022 3:43 PM EDT documented as of this encounter Plan of Treatment Not on file documented as of this encounter Procedures Procedure Name Priority Date/Time Associated Diagnosis Comments MG MAMM DX 3D RT CAD 09/22/2022 2:25 PM EDT documented in this encounter Results * MG MAMM DX 3D RT CAD (09/22/2022 2:25 PM EDT) Anatomical Region Laterality Modality Other 09/22/2022 2:25 PM EDT Narrative 09/22/2022 2:25 PM EDT Patient: YULIA DORSEY. Exam Date: 09/22/2022 : 1965 Gender:F Ordering : DR KATIE RUST . Admission #: [id number] Family : Order #: [id number] CLICK HERE TO VIEW EXAM RADIOLOGY REPORT [...] breast cancer at age 40. LOCATION: The [facility] BREAST COMPOSITION: Almost entirely fatty. FINDINGS: DIAGNOSTIC [...] PALPABLE LUMP SHOULD BE BIOPSIED. Dictated by: Eyal Castaneda MD on 09/22/2022 at 15:01 Approved by: Eyal Castaneda MD on 09/22/2022 at 15:03 Procedure Note Radiology, Radiologist, MD - 09/22/2022 Patient: YULIA DORSEY. Exam Date: 09/22/2022 : 1965 Gender:F Ordering : DR KATIE RUST . Admission #: [id number] Family : Order #: [id number] CLICK HERE TO VIEW EXAM RADIOLOGY REPORT [...] breast cancer at age 40. LOCATION: The [facility] BREAST COMPOSITION: Almost entirely fatty. FINDINGS: DIAGNOSTIC CATEGORY 2--BENIGN FINDING: The right breast is stable in size and density. Scatteredbenign-appearing axillary lymph nodes. No mammographic or ultrasound abnormality tocorrespond to the palpable abnormality lower inner right anterior breast. Further evaluation should be based on clinical and physical exam. Thepatient is due bilateral screening mammogram January of 2023 RECOMMENDATIONS: ROUTINE MAMMOGRAM AND CLINICAL EVALUATION IN 12 MONTHS. PLEASE NOTE: A NORMAL MAMMOGRAM DOES NOT EXCLUDE THE POSSIBILITY OFBREAST CANCER. A CLINICALLY SUSPICIOUS PALPABLE LUMP SHOULD BE BIOPSIED. Dictated by: Eyal Castaneda MD on 09/22/2022 at 15:01 Approved by: Eyal Castaneda MD on 09/22/2022 at 15:03 us Katie Yocasta DO [facility] Final Result documented in this encounter Visit Diagnoses Not on filedocumented in this encounter Care Teams Fisher Quahog Relationship Specialty Start Date End Date Estiven Porter MD PCP - General 09/13/22 documented as of this encounter
--- OUTSIDE RECORDS SUMMARY | 2024-09-20 07:23 | XMS_ITS | Clinical Summary ---
Author Organization [facility] Address [address] [place] [address] Care Team Providers Care School Manager Name Role Phone Estiven Porter MD Primary Care Provider [phone] Allergies Active Allergy Reactions Criticality Noted Date Comments Erythromycin 02/25/2016 Imipramine 02/25/2016 Rash, psychosis, tachycardia Sulfa Antibiotics 02/25/2016 Medications Multiple Vitamin (MULTIVITAMIN) Cap take 1 capsule by mouth daily.. Active CALCIUM-MAGNESI UM-ZINC PO take 1 tablet by mouth daily.. 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 Menopausal symptoms thought to migraine mediated, provoked by stress 11/17/2016 Asymmetrical hearing loss of right ear 6 Tinnitus, right ear 08/19/2015 Pressure in head 04/26/2015 Intermittent vertigo 04/26/2004 Family History Medical History Relation Name Comments Diabetes Brother Diabetes Father Stroke Mother Relation Name Status Comments Brother Father Mother Social History Tobacco Use Types Packs/Day Years Used Date Smoking Tobacco: Former Comments Unknown Sex and Gender Information Value Date Recorded Sex Assigned at Not on file Legal Sex Female 4:14 PM EDT Gender Identity Female Sexual Orientation Not on file Last Filed Vital Signs Vital Sign Reading Time Taken Comments Blood Pressure 131/81 11/17/2016 9:33 AM EDT Pulse 69 11/17/2016 9:33 AM EDT Temperature - - Respiratory Rate - - Oxygen Saturation - - Inhaled Oxygen Concentration - - Weight 74.4 kg (164 lb) 11/17/2016 9:33 AM EDT Height 160 cm (5' 3 ) 11/17/2016 9:33 AM EDT haroon bal Body Mass Index 29.05 11/17/2016 9:33 AM EDT Plan of Treatment Health Maintenance Due Date Last Done Comments HEPATITIS C VIRUS SCREENING 1965 TETANUS 1965 HIV SCREENING DISCUSSION 1980 HEP B VACCINE (1 of 3 - 19+ 3-dose series) 1984 TDAP (ADULT) 1984 CERVICAL CANCER SCREENING DISCUSSION 1986 LIPID SCREENING 2005 MAMMOGRAM SCREENING DISCUSSION 2005 COLORECTAL CANCER SCREENING DISCUSSION 2010 PNEUMOCOCCAL VACCINE SERIES (1 of 1 - PCV) 08/19/2015 ZOSTER (SHINGLES) VACCINE (1 of 2) 08/19/2015 COVID-19 VACCINE ( - ) 12/26/2023 INFLUENZA VACCINE (Season Ended) 2024 Insurance [employer] GENERIC Care Teams School Manager Relationship Specialty Start Date End Date Estiven Porter MD PCP - General Family Medicine 02/25/16
--- OUTSIDE RECORDS SUMMARY | 2024-09-20 07:23 | XMS_ITS | Patient Health Record ---
Author Organization [facility] in [place] Address [address] [place] [address] Care Team Providers Care Natural Resource Specialist Name Role Phone Prashant Porter Primary Care Provider JOHN PORTER Unavailable [phone] Elmira Castro Unavailable [phone] Allergies Allergen (clinical drug ingredient) Drug/Non Drug Allergy documented on EMR Reaction Allergy Type Onset Date Status imipramine Imipramine HCl Unknown Drug Allergy A ctive Substance with sulfonamide structure and antibacterial mechanism of action (substance) Sulfa Antibiotics tremors, rash Drug Allergy Active ciprofloxacin Ciprofloxacin vivid dreams/increas ed anxiety Drug Allergy Active erythromycin Erythromycin rash and fever Drug Allergy Active Results Component Value Reference Range Notes GLYCOHEMOGLOBIN A1C Reviewed date:01/29/2024 09:30:43 PM Interpretation: Performing Lab: Notes/Report: [facility] , Glycohemoglobin A1C 5.7 4.5-6.2 % ADA RECOMMENDED LIMIT 4.0 - 6.0 ADA THERAPEUTIC TARGET < 7.0 ACTION SUGGESTED > 7.0 Estimated Average Glucose 117 Performing Lab: see note ML - [facility] LB PROF CHEM 8 (BAS METB) Reviewed date:01/29/2024 09:30:43 PM Interpretation: Performing Lab: Notes/Report: [facility] , Sodium 139 136-145 mmol/L Potassium 3.8 3.5-5.1 mmol/L Chloride 100 98-107 mmol/L Carbon Dioxide 27.6 21.0-32.0 mmol/L Anion Gap 15.2 Glucose 98 74-106 mg/dL Blood Urea Nitrogen 13.0 7.0-18.0 mg/dL Creatinine 0.70 0.55-1.02 mg/dL Estimated GFR ( Tasneem >60 >=60 mL/min/1.73m 2 Estimated GFR (Non- Michelle >60 >=60 mL/min/1.73m 2 BUN Creatinine Ratio 18.6 Calcium 9.3 8.5-10.1 mg/dL Performing Lab: see note ML - [facility] LB CBC AUTO DIFF Reviewed date:01/09/2024 11:13:11 AM Interpretation: Performing Lab: Notes/Report: [facility] , White Blood Count 5.1 4.0-11.0 10 3/uL Red Blood Count 4.83 4.20-5.40 10 6/uL Hemoglobin 13.9 12.0-16.0 g/dL Hematocrit 43.1 36.0-48.0 % Mean Corpuscular Volume 89.2 81.0-99.0 fL Mean Corpuscular Hemoglobin 28.8 26.7-34.0 pg Mean Corpuscular HGB Conc 32.3 29.9-35.2 g/dL Red Cell Distribution Width 13.4 11.0-15.0 % Platelet Count 291 150-450 10 3/uL Mean Platelet Volume 9.7 9.5-13.5 fL Neutrophils Percent Auto 54.6 43.0-75.0 % Lymphocytes Percent Auto 32.9 20.5-60.0 % Monocytes Percent Auto 9.6 1.7-12.0 % Eosinophils Percent Auto 1.9 0.9-7.0 % Basophils Percent Auto 0.8 0.2-2.0 % Immature Granulocytes Pct Auto 0.2 0.0-0.5 % Neutrophils Absolute Auto 2.8 1.4-6.5 10 3/uL Lymphocytes Absolute Auto 1.7 1.2-3.8 10 3/uL Monocytes Absolute Auto 0.5 0.3-0.8 10 3/uL Eosinophils Absolute Auto 0.1 0.0-0.7 10 3/uL Basophils Absolute Auto 0.0 0.0-0.1 10 3/uL Immature Granulocytes Abs Auto 0.01 0.00-0.03 10 3/uL Performing Lab: see note ML - [facility] LB PREG QUANT HCG Reviewed date:01/09/2024 11:13:11 AM Interpretation: Performing Lab: Notes/Report: [facility] , HCG Quantitative <1 5-50 0.2-1 WEEK 50-500 1-2 WEEKS 100-5,000 2-3 WEEKS 500-10,000 3-4 WEEKS 1,000-50,000 4-5 WEEKS 10,000-100,000 5-6 WEEKS 15,000-200,000 6-8 WEEKS 10,000-100,000 2-3 MONTHS Performing Lab: see note ML - [facility] LB ECG 12 lead Reviewed date:01/09/2024 11:13:11 AM Interpretation: Performing Lab: Notes/Report: Source Facility: [place] [address] Electrocardiograph Report Signed Patient: YULIA DORSEY MR#: [id number] : 1965 Acct:[id number] Age/Sex: 58 / F ADM Date: 01/07/24 Loc: SURGOUT Attending Dr: Katie Rust D.O. Ordering Physician: Katie Rust D.O. 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 Signed By: 01/07/24 1827 DD/ 0723 TD/TT: State Patrol Officer: [place] [address] Electrocardiograph Report Signed Patient: YULIA DORSEY MR#: [id number] : 1965 Acct:[id number] Age/Sex: 58 / F ADM Date: 01/07/24 Loc: SURGOUT Attending Dr: Katie Rust D.O. Ordering Physician: Katie Rust D.O. Date of Service: 01/07/24 Procedure(s): ECG 12 lead Accession Number(s): [id number] cc: [facility] Test Date: 2024-01-07 Pat Name: YULIA Henley Department: 03 Room: - Gender: Female Engineering Tech: : 1965 Requ ested By: KATIE RUST Order Number: [id number] Reading MD: VADIM RAMIREZ Measurements Intervals [place] Rate: 89 P: 73 FL: 162 QRS: -4 QRSD: 102 T: 70 QT: 384 QTc: 469 Interpretive Statements SINUS RHYTHM NONSPECIFIC ST T-WAV E ABNORMALITY Compared to ECG 07/19/2023 15:11:49 T-wave abnormality n ow present Electronically Juliet d On 01-07-2024 18:27:28 EDT by VADIM RAMIREZ Dictated By: Vadim Ramirez D.O. Signed By: 01/07/24 1827 DD/ 07 TD/TT: State Patrol Officer: YAZMIN RANDOM W or MICROSCOPIC Reviewed date:01/31/2024 08:25:57 PM Interpretation: Performing Lab: Notes/Report: [facility] , Color Urine LT. YELLOW YELLOW Clarity Urine CLEAR CLEAR Specific [place] Urine <=1.005 1.005-1.025 pH Urine 6.0 5.0-9.0 Protein Urine NEGATIVE NEG/TRACE mg/dL Glucose Urine UA NEGATIVE NEGATIVE mg/dL Bilirubin Urine NEGATIVE NEGATIVE Ketones Urine NEGATIVE NEGATIVE mg/dL Blood Urine NEGATIVE NEGATIVE Nitrite Urine NEGATIVE NEGATIVE Urobilinogen Urine 0.2 0.2-1.0 EU/dL Leukocyte Esterase Urine NEGATIVE NEGATIVE WBC Urine 0-2 NONE SEEN #/HPF RBC Urine 0-2 0-2 #/HPF Bacteria Urine NONE SEEN NONE SEEN #/HPF Mucus Urine NONE SEEN NONE SEEN Squamous Epithelial Cell Urine RARE NONE/RARE #/LPF Crystals Seen? None Seen None Seen #/HPF Cast Seen? NONE SEEN NONE SEEN #/LPF Performing Lab: see note ML - [facility] LB FREE T3 Reviewed date:08/03/2024 12:13:06 PM Interpretation: Performing Lab: Notes/Report: [facility] , Free T3 3.07 2.18-3.98 pg/mL Performing Lab: see note ML - [facility] LB T4 Reviewed date:08/03/2024 12:13:06 PM Interpretation: Performing Lab: Notes/Report: [facility] , T4 Thyroxine 9.10 4.80-13.90 ug/dL Performing Lab: see note ML - [facility] LB TSH Reviewed date:08/03/2024 12:13:06 PM Interpretation: Performing Lab: Notes/Report: [facility] , Thyroid Stimulating Hormone 0.941 0.358-3.740 uIU/mL Performing Lab: see note - [facility] LB MR head/brain wo con Reviewed date:08/09/2024 08:03:31 PM Interpretation: Performing Lab: Notes/Report: Source Facility: [place] [address] Magnetic Resonance Report Signed Patient: YULIA DORSEY MR#: [id number] : 1965 Acct:[id number] Age/Sex: 58 / F ADM Date: 08/09/24 Loc: MRI Attending Dr: John Porter M.D. Ordering Physician: John Porter M.D. Date of Service: 08/09/24 Procedure(s): MR head/brain wo con Accession Number(s): [id number] cc: John Porter M.D. [place] [address] Patient Name: YULIA DORSEY MRN: [id number] date: 1965 Sex: F Assigned Patient Location: MRI Current Patient Location: MRI Accession/Order Number: [id number] Exam Date: 08/09/2024 09:53 Report Date: 08/09/2024 10:01 At the request of: JOHN PORTER MD Procedure: MR head/brain wo con EXAMINATION: MRI OF THE BRAIN WITHOUT CONTRAST CLINICAL HISTORY: Vertigo, Headache COMPARISON: CT 07/05/2024 TECHNIQUE: Multiecho, multiplanar imaging of the brain was performed without enhancement. The ventricles are normal in size and position. There are no areas of abnormal signal intensity within the supra- or infratentorial brain. No restricted diffusion is confined to suggest a recent ischemic event. There is partial and the sella. A possible arachnoid cyst is seen posterior to the cerebellum to the right of midline. There are no other extra-axial collections or mass effect. The paranasal sinuses and mastoid air cells are clear. MR/MR head/brain wo con IMPRESSION: NO ACUTE INTRACRANIAL FINDINGS. Impression dictated by: Olivia Gutierrez M.D.08/09/2024 10:01 AM Dictation Location: [place] [address] Electronically authenticated by: [id number] Y Date: 08/09/2024 10:01 Dictated By: Olivia Gutierrez M.D. Signed By: 08/09/24 1004 DD/ 1001 TD/TT: State Patrol Officer: [place] [address] Magnetic Resonance Report Signed Patient: YULIA DORSEY MR#: [id number] : 1965 Acct:[id number] Age/Sex: 58 / F ADM Date: 08/09/24 Loc: MRI Attending Dr: Kristopher Porter M.D. Ordering Physician: John Porter M.D. Date of Service: 08/09/24 Procedure(s): MR head/brain wo con Accession Number(s): [id number] cc: John Porter M.D. [place] [id number] Patient Name: YULIA DORSEY MRN: [id number] date: 1965 Sex: F Assigned Patient Location: MRI Current Patient Loca tion: MRI Accession/Order Numb er: [id number] Exam Date: 08/09/2024 09:53 Report Date: 08/09/2024 10:01 At the request of: JOHN PORTER MD Procedure: MR head/b rain wo con EXAMINATION: MRI OF THE BRAIN WITHOUT CONTRAST CLINICAL HISTORY: Vertigo, Headache COMPARISON: CT 07/05/2024 TECHNIQUE: Multiecho , multiplanar imaging of the brain was performed without enhancement. The ventricles are n ormal in size and position. There are no areas of abnormal signal inte nsity within the supra- or infratentorial brain. No restricted diffusion is confined to suggest a recent ischemic event. There is partial and the sell a. A possible arachnoid cyst is seen posterior to the cerebellum to the ri ght of midline. There are no other extra-axial collections or mass effect. The paranasal sinuses and mastoid air cells are clear. M R/MR head/brain wo con IMPRESSION: NO ACUTE INTRACRANIA L FINDINGS. Impression dictated by: Olivia Gutierrez M.D.08/09/2024 10:01 AM Dictation Location: [place] [address] Electronically authenticated by: [id number] Y Date: 08/09/2024 10:01 Dictated By: Olivia Gutierrez M.D. Signed By: 08/09/24 1004 DD/ 1001 TD/TT: State Patrol Officer: Troponin I High Sensitivity Reviewed date:08/03/2024 12:13:06 PM Interpretation: Performing Lab: Notes/Report: [facility] , Troponin I High Sensitivity <4.0 4.0-51.3 pg/mL CUT-OFF POINTS HAVE BEEN ESTABLISHED BASED ON THE FOURTH UNIVERSAL DEFINITION OF MYOCARDIAL INFARCTION. THE UPPER REFERENCE LIMIT (URL) OF TROPONIN, DEFINED THE 99TH PERCENTILE OF cTnI DISTRIBUTION IN A REFERENCE POPULATION, HAS BEEN CONFIRMED THE DECISION THRESHOLD FOR ND DIAGNOSIS. 99TH PERCENTILE = 51.4 PG/ML NOTE: HIGH-SENSITIVITY TROPONIN ASSAY IS NOT INTENDED TO BE USED IN ISOLATION BUT SHOULD BE INTERPRETED IN CONJUNCTION WITH OTHER DIAGNOSTIC AND CLINICAL INFORMATION. Performing Lab: see note ML - [facility] LB PROF 14(COMP METB) Reviewed date:08/03/2024 12:13:06 PM Interpretation: Performing Lab: Notes/Report: [facility] , Sodium 143 136-145 mmol/L Potassium 4.2 3.5-5.1 mmol/L Chloride 105 98-107 mmol/L Carbon Dioxide 29.6 21.0-32.0 mmol/L Anion Gap 12.6 Glucose 122 74-106 mg/dL Blood Urea Nitrogen 10.0 7.0-18.0 mg/dL Creatinine 0.64 0.55-1.02 mg/dL Estimated GFR ( Tasneem >60 >=60 mL/min/1.73m 2 Estimated GFR (Non- Michelle >60 >=60 mL/min/1.73m 2 BUN Creatinine Ratio 15.6 Calcium 9.2 8.5-10.1 mg/dL Bilirubin Total 0.5 0.2-1.0 mg/dL Aspartate Amino Transferase 22 15-37 U/L Alanine Aminotransferase 28 14-59 U/L Alkaline Phosphatase 72 46-116 U/L Total Protein 7.7 6.4-8.2 g/dL Albumin Level 4.0 3.4-5.0 g/dL Globulin 3.7 Albumin Globulin Ratio 1.1 Performing Lab: see note ML - [facility] LIPID PROFILE Reviewed date:08/03/2024 12:13:06 PM Interpretation: Performing Lab: Notes/Report: [facility] , Triglycerides 39 <=150 mg/dL Cholesterol 212 <=200 mg/dL HDL Cholesterol 84 40-60 mg/dL > or =60 mg/dl - LOW CARDIOVASCULAR RISK <40 mg/dl - HIGH CARDIOVASCULAR RISK LDL Cholesterol Calculated 121.0 <100 mg/dl OPTIMAL 100-129 mg/dl NEAR OR ABOVE OPTIMAL 130-159 mg/dl BORDERLINE HIGH 160-189 mg/dl HIGH >190 mg/dl VERY HIGH VLDL CHOLESTEROL 7.8 Chol HDL Ratio 2.5 3.3 - 4.4 LOW RISK 4.4 - 7.1 AVERAGE RISK 7.1 - 11.0 MODERATE RISK >11.0 HIGH RISK Performing Lab: see note ML - [facility] LB GLYCOHEMOGLOBIN A1C Reviewed date:08/03/2024 12:13:06 PM Interpretation: Performing Lab: Notes/Report: [facility] , Glycohemoglobin A1C 5.9 4.5-6.2 % ADA RECOMMENDED LIMIT 4.0 - 6.0 ADA THERAPEUTIC TARGET < 7.0 ACTION SUGGESTED > 7.0 Estimated Average Glucose 123 Performing Lab: see note - [facility] CBC AUTO DIFF Reviewed date:08/03/2024 12:13:06 PM Interpretation: Performing Lab: Notes/Report: [facility] , White Blood Count 4.6 4.0-11.0 10 3/uL Red Blood Count 4.82 4.20-5.40 10 6/uL Hemoglobin 14.1 12.0-16.0 g/dL Hematocrit 42.6 36.0-48.0 % Mean Corpuscular Volume 88.4 81.0-99.0 fL Mean Corpuscular Hemoglobin 29.3 26.7-34.0 pg Mean Corpuscular HGB Conc 33.1 29.9-35.2 g/dL Red Cell Distribution Width 13.0 11.0-15.0 % Platelet Count 271 150-450 10 3/uL Mean Platelet Volume 9.7 9.5-13.5 fL Neutrophils Percent Auto 64.5 43.0-75.0 % Lymphocytes Percent Auto 26.3 20.5-60.0 % Monocytes Percent Auto 7.2 1.7-12.0 % Eosinophils Percent Auto 0.9 0.9-7.0 % Basophils Percent Auto 0.9 0.2-2.0 % Immature Granulocytes Pct Auto 0.2 0.0-0.5 % Neutrophils Absolute Auto 3.0 1.4-6.5 10 3/uL Lymphocytes Absolute Auto 1.2 1.2-3.8 10 3/uL Monocytes Absolute Auto 0.3 0.3-0.8 10 3/uL Eosinophils Absolute Auto 0.0 0.0-0.7 10 3/uL Basophils Absolute Auto 0.0 0.0-0.1 10 3/uL Immature Granulocytes Abs Auto 0.01 0.00-0.03 10 3/uL Performing Lab: see note ML - [facility] LB CT soft tissue neck w con Reviewed date:05/31/2024 12:29:26 PM Interpretation: Performing Lab: Notes/Report: Source Facility: [facility]-[address] [place] [address] [place] [address] CT Scan Report Signed Patient: YULIA DORSEY MR#: [id number] : 1965 Acct:[id number] Age/Sex: 58 / F ADM Date: 05/30/24 Loc: CT Attending Dr: John Porter M.D. Ordering Physician: John Porter M.D. Date of Service: 05/30/24 Procedure(s): CT soft tissue neck wo con Accession Number(s): [id number] cc: John Porter M.D. The [address] [address] Patient Name: YULIA DORSEY MRN: [id number] date: 1965 Sex: F Assigned Patient Location: CT Current Patient Location: Accession/Order Number: [id number] Exam Date: 05/30/2024 15:59 Report Date: 05/31/2024 12:04 At the request of: JOHN PORTER Procedure: CT soft tissue neck wo con EXAMINATION: CT soft tissue neck wo con HISTORY: Neck Mass ; lump posterior to the ear COMPARISON: No relevant comparison available. TECHNIQUE: Axial, Coronal, and Sagittal CT images created without IV contrast. Dose reduction techniques were achieved by using automated exposure control and/or adjustment of mA and/or kV according to patient size and/or use of iterative reconstruction technique. FINDINGS: NASOPHARYNX: No asymmetry of the fossae of Rosenmuller and torus tubarius. ORAL CAVITY: No visible mass. OROPHARYNX: No asymmetry of the facial and lingual tonsils. HYPOPHARYNX: No mass or other visible lesion. LARYNX: No mass or asymmetry of the vocal cords. SINUSES: No significant fluid or mucosal thickening. NECK GLADS: No visible abnormality of the parotid, submandibular, and thyroid glands. LYMPH NODES: No pathological-appearing or enlarged lymph nodes. VASCULATURE: No suspicious abnormality. BONES: No significant osseous lesions. OTHER: A skin surface marker localizing the patient's palpable lump is present over the posterior left lateral upper neck just below the skull base. No underlying abnormality. CT/CT soft tissue neck wo con IMPRESSION: 1. No mass, lymph nodes, fluid collection, skin thickening, or inflammatory changes to account for patient's palpable lump. Unremarkable neck. Electronically authenticated by: GABO STRONG Date: 05/31/2024 12:04 Dictated By: Gabo Strong M.D. Signed By: 05/31/24 1206 DD/ 1204 TD/TT: State Patrol Officer: The [address] [place] [address] CT Scan Report Signed Patient: YULIA DORSEY MR#: [id number] : 1965 Acct:[id number] Age/Sex: 58 / F ADM Date: 05/30/24 Loc: CT Attending Dr: Kristopher Porter M.D. Ordering Physician: John Porter M.D. Date of Service: 05/30/24 Procedure(s): CT sof t tissue neck wo con Accession Number(s): [id number] cc: John Porter M.D. [address] [address] Patient Name: YULIA DORSEY MRN: [id number] date: 1965 Sex: F Assigned Patient Location: CT Current Patient Location: Accession/Order Numb er: [id number] Exam Date: 05/30/2024 15:59 Report Date: 05/31/2024 12:04 At the request of: JOHN PORTER Procedure: CT soft t issue neck wo con EXAMINATION: CT soft tissue neck wo con HISTORY: Neck Mass ; lump posterior to the ear COMPARISON: No relev ant comparison available. TECHNIQUE: Axial, Coronal, and Sagittal CT images created without IV contrast. Dose reduction techn iques were achieved by using automated exposure control and/or adjustment of mA and/or kV according to patient size and/or use of iterative reconstruc tion technique. FINDINGS: NASOPHARYNX: No asym metry of the fossae of Rosenmuller and torus tubarius. ORAL CAVITY: No visi ble mass. OROPHARYNX: No asymm etry of the facial and lingual tonsils. HYPOPHARYNX: No mass or other visible lesion. LARYNX: No mass or asymmetry of the vocal cords. SINUSES: No signific ant fluid or mucosal thickening. NECK GLADS: No visib le abnormality of the parotid, submandibular, and thyroid glands. LYMPH NODES: No pathological-appearing or enlarged lymph nodes. VASCULATURE: No suspicious abnormality. BONES: No significan t osseous lesions. OTHER: A skin surfac e marker localizing the patient's palpable lump is present over the posterior l eft lateral upper neck just below the skull base. No underlying abnormality. C T/CT soft tissue neck wo con IMPRESSION: 1. No mass, lymph no anali, fluid collection, skin thickening, or inflammatory changes to account f or patient's palpable lump. Unremarkable neck. Electronically authenticated by: GABO STRONG Date: 05/31/2024 12:04 Dictated By: Gabo Strong M.D. Signed By: 05/31/24 1206 DD/ 1204 TD/TT: State Patrol Officer: Urine Culture, Routine Reviewed date:05/28/2024 03:45:49 PM Interpretation: Performing Lab: Notes/Report: [facility] , Urine Culture, Routine See Below For Report Urine Culture, Routine Urine Culture, Routine Culture shows les s than 10,000 colony forming units of bacteria per Urine Culture, Routine Urine Culture, Routine milliliter of uri ne. This colony count is not generally considered Urine Culture, Routine Urine Culture, Routine to be clinically significant. Urine Culture, Routine Urine Culture, Routine Performed at: - [facility] [place] Urine Culture, Routine Urine Culture, Routine [address] [place] [phone] Urine Culture, Routine Urine Culture, Routine City Route Driver: Donis Macias PhD, Phone: [phone] Urine Culture, Routine Performing Lab: see note LC - [facility] LB SEE REPORT - Rouge Miller Id information not found for OBX-specific stonemason legend UA RANDOM W or MICROSCOPIC Reviewed date:05/25/2024 07:58:02 PM Interpretation: Performing Lab: Notes/Report: [facility] , Color Urine LT. YELLOW YELLOW Clarity Urine CLEAR CLEAR Specific [place] Urine 1.015 1.005-1.025 pH Urine 5.5 5.0-9.0 Protein Urine NEGATIVE NEG/TRACE mg/dL Glucose Urine UA NEGATIVE NEGATIVE mg/dL Bilirubin Urine NEGATIVE NEGATIVE Ketones Urine TRACE NEGATIVE mg/dL Blood Urine TRACE-L NEGATIVE Nitrite Urine NEGATIVE NEGATIVE Urobilinogen Urine 0.2 0.2-1.0 EU/dL Leukocyte Esterase Urine NEGATIVE NEGATIVE WBC Urine 0-2 NONE SEEN #/HPF RBC Urine 0-2 0-2 #/HPF Bacteria Urine NONE SEEN NONE SEEN #/HPF Mucus Urine NONE SEEN NONE SEEN Squamous Epithelial Cell Urine NONE SEEN NONE/RARE #/LPF Crystals Seen? None Seen None Seen #/HPF Cast Seen? NONE SEEN NONE SEEN #/LPF Urine Culture Indicated NO Performing Lab: see note ML - [facility] LB XR chest 2V Reviewed date:03/30/2024 12:46:52 PM Interpretation: Performing Lab: Notes/Report: Source Facility: [facility]-[address] [place] [address] [place] [address] XRay Report Signed Patient: YULIA DORSEY MR#: [id number] : 1965 Acct:[id number] Age/Sex: 58 / F ADM Date: 03/29/24 Loc: [facility] Attending Dr: John Porter M.D. Ordering Physician: John Porter M.D. Date of Service: 03/29/24 Procedure(s): XR chest 2V Accession Number(s): [id number] cc: John Porter M.D. The [place] [address] Patient Name: YULIA DORSEY MRN: [id number] date: 1965 Sex: F Assigned Patient Location: [facility] Current Patient Location: Accession/Order Number: [id number] Exam Date: 03/29/2024 15:25 Report Date: 03/30/2024 07:38 At the request of: JOHN PORTER Procedure: XR chest 2V EXAMINATION: XR chest 2V HISTORY: Acute Bronchitis COMPARISON: No relevant comparison available. TECHNIQUE: PA and lateral FINDINGS: LUNGS: No significant pulmonary parenchymal abnormalities. VASCULATURE: No increased pulmonary vasculature. PLEURA: No pneumothorax, effusion, or pleural thickening. CARDIAC: No cardiomegaly or cardiac silhouette abnormality. MEDIASTINUM: No visible mass or adenopathy. BONES: No fracture or visible bone lesion. OTHER: Negative. XR/XR chest 2V IMPRESSION: No acute cardiopulmonary process Electronically authenticated by: ELLYN ALVAREZ Date: 03/30/2024 07:38 Dictated By: Ellyn Alvarez M.D. Signed By: 03/30/2440 DD/ 7 TD/TT: State Patrol Officer: [place] [address] XRay Report Signed Patient: YULIA DORSEY MR#: [id number] : 1965 Acct:[id number] Age/Sex: 58 / F ADM Date: 03/29/24 Loc: RAD Attending Dr: Kristopher Porter M.D. Ordering Physician: John Porter M.D. Date of Service: 03/29/24 Procedure(s): XR chest 2V Accession Number(s): [id number] cc: John Porter M.D. The [place] [address] Patient Name: YULIA DORSEY MRN: [id number] date: 1965 Sex: F Assigned Patient Location: [facility] Current Patient Location: Accession/Order Numb er: [id number] Exam Date: 15:25 Report Date: 03/30/2024 07:38 At the request of: JOHN PORTER Procedure: XR chest 2V EXAMINATION: XR chest 2V HISTORY: Acute Bronchitis COMPARISON: No relev ant comparison available. TECHNIQUE: PA and lateral FINDINGS: LUNGS: No significan t pulmonary parenchymal abnormalities. VASCULATURE: No incr eased pulmonary vasculature. PLEURA: No pneumotho rax, effusion, or pleural thickening. CARDIAC: No cardiome anne-marie or cardiac silhouette abnormality. MEDIASTINUM: No visi ble mass or adenopathy. BONES: No fracture o r visible bone lesion. OTHER: Negative. X R/XR chest 2V IMPRESSION: No acute cardiopulmo nary process Electronically authenticated by: ELLYN ALVAREZ Date: 03/30/2024 07:38 Dictated By: Bhavik Alvarez M.D. Signed By: 03/30/2440 DD/ TD/TT: State Patrol Officer: RAYNE 30 day event monitor Reviewed date:02/27/2024 11:32:24 AM Interpretation: Performing Lab: Notes/Report: Source Facility: [place] [address] [place] [address] Cardiology Report Signed Patient: YULIA DORSEY MR#: [id number] : 1965 Acct:[id number] Age/Sex: 58 / F ADM Date: 01/14/24 Loc: CARD Attending Dr: John Porter M.D. Ordering Physician: John Porter M.D. Date of Service: 01/14/24 Procedure(s): [place] 30 day event monitor Accession Number(s): [id number] cc: John Porter M.D. [facility] Test Date: 2024-02-24 Pat Name: YULIA DORSEY Department: Room: - Gender: Female Engineering Tech: : 1965 Requested By: JOHN PORTER Order Number: [id number] Reading MD: VADIM RAMIREZ Interpretive Statements Predominant rhythm is sinus with averaage rate of 76 bpm Tachycardia - max rate of 138 bpm Bradycardia - min rate of 49 bpm Ventricular ectopy - < 1% burden 7 patient triggered events - symptoms include fluttering and lightheadedness - associated with sinus tachycardia, PVCs and PACs Impression: Predominant rhythm is sinus with average rate of 76 bpm Fastest rate of 138 bpm and slowest rate of 49 bpm < 1% VE burden No atrial fibrillation No pauses Electronically Signed On 02-25-2024 7:00:38 EDT by VADIM RAMIREZ Dictated By: Vadim Ramirez D.O. Signed By: 02/25/2470002/25/24700 DD/ 6 TD/TT: State Patrol Officer: [place] [address] Cardiology Report Signed Patient: YULIA DORSEY MR#: [id number] : 1965 Acct:[id number] Age/Sex: 58 / F ADM Date: 01/14/24 Loc: CARD Attending Dr: Kristopher Porter M.D. Ordering Physician: John Porter M.D. Date of Service: 01/14/24 Procedure(s): CA 30 day event monitor Accession Number(s): [id number] cc: John Porter M.D. 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: : 1965 Requ ested By: JOHN GERMAN Order Number: [id number] Reading MD: VADIM RAMIREZ Interpretive Statements Predominant rhythm i s sinus with averaage rate of 76 bpm Tachycardia - max rate of 138 bpm Bradycardia - min rate of 49 bpm Ventricular ectopy - < 1% burden 7 patient triggered events - symptoms include fluttering and lightheadedness - associated with si nus tachycardia, PVCs and PACs Impression: Predominant rhythm i s sinus with average rate of 76 bpm Fastest rate of 138 bpm and slowest rate of 49 bpm < 1% VE burden No atrial fibrillation No pauses Electronically Juliet d On 02-25-2024 7:00:38 EDT by VADIM RAMIREZ Dictated By: Vadim Ramirez D.O. Signed By: 02/25/2470002/25/24700 DD/ 6 TD/TT: State Patrol Officer: Urine Culture, Routine Reviewed date:01/31/2024 09:32:29 AM Interpretation: Performing Lab: Notes/Report: [facility] , Urine Culture, Routine See Below For Report Urine Culture, Routine Urine Culture, Routine Mixed urogenital umu Urine Culture, Routine Urine Culture, Routine Less than 10,000 colonies/mL Urine Culture, Routine Urine Culture, Routine Performed at: [facility] Urine Culture, Routine Urine Culture, Routine [address] [place] [phone] Urine Culture, Routine Urine Culture, Routine City Route Driver: Donis Macias PhD, Phone: [phone] Urine Culture, Routine Performing Lab: see note LC - [facility] LB SEE REPORT - Rouge Miller Id information not found for OBX-specific stonemason legend Urine Culture, Routine Reviewed date:01/09/2024 11:13:11 AM Interpretation: Performing Lab: Notes/Report: [facility] , Urine Culture, Routine See Below For Report Urine Culture, Routine Urine Culture, Routine Culture shows les s than 10,000 colony forming units of bacteria per Urine Culture, Routine Urine Culture, Routine milliliter of uri ne. This colony count is not generally considered Urine Culture, Routine Urine Culture, Routine to be clinically significant. Urine Culture, Routine Urine Culture, Routine Performed at: [facility] Urine Culture, Routine Urine Culture, Routine [address] [place] [address] [phone] Urine Culture, Routine Urine Culture, Routine City Route Driver: Donis Macias PhD, Phone: [phone] Urine Culture, Routine Performing Lab: see note LC - [facility] LB SEE REPORT - Rouge Miller Id information not found for OBX-specific stonemason legend UA RANDOM W or MICROSCOPIC Reviewed date:01/06/2024 09:36:14 PM Interpretation: Performing Lab: Notes/Report: [facility] , Color Urine LT. YELLOW YELLOW Clarity Urine CLEAR CLEAR Specific [place] Urine <=1.005 1.005-1.025 pH Urine 7.0 5.0-9.0 Protein Urine NEGATIVE NEG/TRACE mg/dL Glucose Urine UA NEGATIVE NEGATIVE mg/dL Bilirubin Urine NEGATIVE NEGATIVE Ketones Urine NEGATIVE NEGATIVE mg/dL Blood Urine NEGATIVE NEGATIVE Nitrite Urine NEGATIVE NEGATIVE Urobilinogen Urine 0.2 0.2-1.0 EU/dL Leukocyte Esterase Urine NEGATIVE NEGATIVE WBC Urine NONE SEEN NONE SEEN #/HPF RBC Urine NONE SEEN 0-2 #/HPF Bacteria Urine NONE SEEN NONE SEEN #/HPF Mucus Urine NONE SEEN NONE SEEN Squamous Epithelial Cell Urine FEW NONE/RARE #/LPF Urine Culture Indicated ALREADY ORDERED Performing Lab: see note ML - [facility] LB XR abdomen 1V Reviewed date:01/03/2024 08:40:59 PM Interpretation: Performing Lab: Notes/Report: Source Facility: [place] [address] XRay Report Signed Patient: YULIA DORSEY MR#: [id number] : 1965 Acct:[id number] Age/Sex: 58 / F ADM Date: 01/01/24 Loc: US Attending Dr: Bessie Faust ICE 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 [place] [address] Patient Name: YULIA DORSEY MRN: [id number] date: 1965 Sex: F Assigned Patient Location: US Current Patient Location: US Accession/Order Number: [id number] Exam Date: 01/01/2024 12:36 Report Date: 01/03/2024 10:16 At the request of: BESSIE FAUST Procedure: XR abdomen 1V EXAMINATION: XR abdomen 1V HISTORY: kidney stone COMPARISON: No relevant comparison available. FINDINGS: KIDNEY/URETER - RIGHT: No visible renal or ureteral calcifications. KIDNEY/URETER - LEFT: No visible renal or ureteral calcifications. PELVIS: No visible ureteral calcifications. Any visible calcifications favor phleboliths. BOWEL: No abnormal dilation or deviation. BONES: No acute abnormality. OTHER: Negative. No abnormal gaseous collections. XR/XR abdomen 1V IMPRESSION: No definite urinary tract calculi Electronically authenticated by: ELLYN ALVAREZ Date: 01/03/2024 10:16 Dictated By: Ellyn Alvarez M.D. Signed By: 01/03/24 1018 DD/ 1016 TD/TT: State Patrol Officer: [place] [address] XRay Report Signed Patient: YULIA DORSEY MR#: [id number] : 1965 Acct:[id number] Age/Sex: 58 / F ADM Date: 01/01/24 Loc: US Attending Dr: Bessie Faust NP Ordering Physician: Bessie Faust NP Date of Service: 01/01/24 Procedure(s): XR abd omen 1V Accession Number(s): [id number] cc: Bessie Faust NP; John Porter M.D. [place] [phone] Patient Name: YULIA DORSEY MRN: [id number] date: 1965 Sex: F Assigned Patient Location: US Current Patient Loca tion: US Accession/Order Numb er: [id number] Exam Date: 01/01/2024 12:36 Report Date: 01/03/2024 10:16 At the request of: BESSIE FAUST Procedure: XR abdomen 1V EXAMINATION: XR abdo men 1V HISTORY: kidney stone COMPARISON: No relev ant comparison available. FINDINGS: KIDNEY/URETER - RIGH T: No visible renal or ureteral calcifications. KIDNEY/URETER - LEFT : No visible renal or ureteral calcifications. PELVIS: No visible ureteral calcifications. Any visible calcifications favor phleboliths. BOWEL: No abnormal dilation or deviation. BONES: No acute abnormality. OTHER: Negative. No abnormal gaseous collections. X R/XR abdomen 1V IMPRESSION: No definite urinary tract calculi Electronically authenticated by: ELLYN ALVAREZ Date: 01/03/2024 10:16 Dictated By: Bhavik Alvarez M.D. Signed By: 01/03/24 1018 DD/ 1016 TD/TT: State Patrol Officer: Urine Culture, Routine Reviewed date:01/02/2024 08:39:52 PM Interpretation: Performing Lab: Notes/Report: [facility] , Urine Culture, Routine See Below For Report Urine Culture, Routine Urine Culture, Routine No growth Urine Culture, Routine Urine Culture, Routine Performed at: [facility] Urine Culture, Routine Urine Culture, Routine [address] [place] [address] [phone] Urine Culture, Routine Urine Culture, Routine City Route Driver: Donis Macias PhD, Phone: [phone] Urine Culture, Routine Performing Lab: see note LC - [facility] LB SEE REPORT - Rouge Miller Id information not found for OBX-specific stonemason legend UA RANDOM W or MICROSCOPIC Reviewed date:12/28/2023 08:52:53 PM Interpretation: Performing Lab: Notes/Report: [facility] , Color Urine LT. YELLOW YELLOW Clarity Urine CLEAR CLEAR Specific [place] Urine 1.010 1.005-1.025 pH Urine 6.0 5.0-9.0 Protein Urine NEGATIVE NEG/TRACE mg/dL Glucose Urine UA NEGATIVE NEGATIVE mg/dL Bilirubin Urine NEGATIVE NEGATIVE Ketones Urine NEGATIVE NEGATIVE mg/dL Blood Urine NEGATIVE NEGATIVE Nitrite Urine NEGATIVE NEGATIVE Urobilinogen Urine 0.2 0.2-1.0 EU/dL Leukocyte Esterase Urine TRACE NEGATIVE WBC Urine 2-5 NONE SEEN #/HPF RBC Urine NONE SEEN 0-2 #/HPF Bacteria Urine TRACE NONE SEEN #/HPF Mucus Urine NONE SEEN NONE SEEN Squamous Epithelial Cell Urine RARE NONE/RARE #/LPF Crystals Seen? None Seen None Seen #/HPF Cast Seen? NONE SEEN NONE SEEN #/LPF Performing Lab: see note ML - [facility] LB PROF 14(COMP METB) Reviewed date:12/29/2023 07:26:32 PM Interpretation: Performing Lab: Notes/Report: [facility] , Sodium 139 136-145 mmol/L Potassium 4.2 3.5-5.1 mmol/L Chloride 101 98-107 mmol/L Carbon Dioxide 30.1 21.0-32.0 mmol/L Anion Gap 12.1 Glucose 99 74-106 mg/dL Blood Urea Nitrogen 18.0 7.0-18.0 mg/dL Creatinine 0.71 0.55-1.02 mg/dL Estimated GFR ( Tasneem >60 >=60 Estimated GFR (Non- Michelle >60 >=60 BUN Creatinine Ratio 25.4 Calcium 9.3 8.5-10.1 mg/dL Bilirubin Total 0.3 0.2-1.0 mg/dL Aspartate Amino Transferase 19 15-37 U/L Alanine Aminotransferase 25 14-59 U/L Alkaline Phosphatase 77 46-116 U/L Total Protein 7.5 6.4-8.2 g/dL Albumin Level 4.0 3.4-5.0 g/dL Globulin 3.5 Albumin Globulin Ratio 1.1 Performing Lab: see note ML - [facility] LB CBC AUTO DIFF Reviewed date:12/28/2023 08:52:53 PM Interpretation: Performing Lab: Notes/Report: [facility] , White Blood Count 8.1 4.0-11.0 10 3/uL Red Blood Count 4.54 4.20-5.40 10 6/uL Hemoglobin 13.5 12.0-16.0 g/dL Hematocrit 40.6 36.0-48.0 % Mean Corpuscular Volume 89.4 81.0-99.0 fL Mean Corpuscular Hemoglobin 29.7 26.7-34.0 pg Mean Corpuscular HGB Conc 33.3 29.9-35.2 g/dL Red Cell Distribution Width 13.3 11.0-15.0 % Platelet Count 290 150-450 10 3/uL Mean Platelet Volume 9.6 9.5-13.5 fL Neutrophils Percent Auto 64.1 43.0-75.0 % Lymphocytes Percent Auto 23.6 20.5-60.0 % Monocytes Percent Auto 9.6 1.7-12.0 % Eosinophils Percent Auto 1.4 0.9-7.0 % Basophils Percent Auto 1.1 0.2-2.0 % Immature Granulocytes Pct Auto 0.2 0.0-0.5 % Neutrophils Absolute Auto 5.2 1.4-6.5 10 3/uL Lymphocytes Absolute Auto 1.9 1.2-3.8 10 3/uL Monocytes Absolute Auto 0.8 0.3-0.8 10 3/uL Eosinophils Absolute Auto 0.1 0.0-0.7 10 3/uL Basophils Absolute Auto 0.1 0.0-0.1 10 3/uL Immature Granulocytes Abs Auto 0.02 0.00-0.03 10 3/uL Performing Lab: see note ML - [facility] LB AMYLASE Reviewed date:12/29/2023 07:26:32 PM Interpretation: Performing Lab: Notes/Report: [facility] , Amylase 81 25-115 U/L Performing Lab: see note - [facility] UA RANDOM W or MICROSCOPIC Reviewed date:12/21/2023 04:03:43 PM Interpretation: Performing Lab: Notes/Report: [facility] , Color Urine LT. YELLOW YELLOW Clarity Urine CLEAR CLEAR Specific [place] Urine <=1.005 1.005-1.025 pH Urine 6.0 5.0-9.0 Protein Urine NEGATIVE NEG/TRACE mg/dL Glucose Urine UA NEGATIVE NEGATIVE mg/dL Bilirubin Urine NEGATIVE NEGATIVE Ketones Urine NEGATIVE NEGATIVE mg/dL Blood Urine NEGATIVE NEGATIVE Nitrite Urine NEGATIVE NEGATIVE Urobilinogen Urine 0.2 0.2-1.0 EU/dL Leukocyte Esterase Urine TRACE NEGATIVE WBC Urine 0-2 NONE SEEN #/HPF RBC Urine 0-2 0-2 #/HPF Bacteria Urine TRACE NONE SEEN #/HPF Mucus Urine NONE SEEN NONE SEEN Squamous Epithelial Cell Urine RARE NONE/RARE #/LPF Transitional Epi Cells Urine RARE NONE SEEN #/LPF Crystals Seen? None Seen None Seen #/HPF Cast Seen? NONE SEEN NONE SEEN #/LPF Urine Culture Indicated ALREADY ORDERED Performing Lab: see note - [facility] LB PROF 14(COMP METB) Reviewed date:12/14/2023 03:09:01 PM Interpretation: Performing Lab: Notes/Report: [facility] , Sodium 141 136-145 mmol/L Potassium 4.2 3.5-5.1 mmol/L Chloride 104 98-107 mmol/L Carbon Dioxide 31.2 21.0-32.0 mmol/L Anion Gap 10.0 Glucose 93 74-106 mg/dL Blood Urea Nitrogen 7.0 7.0-18.0 mg/dL Creatinine 0.58 0.55-1.02 mg/dL Estimated GFR ( Tasneem >60 >=60 Estimated GFR (Non- Michelle >60 >=60 BUN Creatinine Ratio 12.1 Calcium 9.4 8.5-10.1 mg/dL Bilirubin Total 0.5 0.2-1.0 mg/dL Aspartate Amino Transferase 20 15-37 U/L Alanine Aminotransferase 27 14-59 U/L Alkaline Phosphatase 74 46-116 U/L Total Protein 7.6 6.4-8.2 g/dL Albumin Level 4.1 3.4-5.0 g/dL Globulin 3.5 Albumin Globulin Ratio 1.2 Performing Lab: see note ML - [facility] LB CBC AUTO DIFF Reviewed date:12/14/2023 03:09:01 PM Interpretation: Performing Lab: Notes/Report: [facility] , White Blood Count 6.0 4.0-11.0 10 3/uL Red Blood Count 4.68 4.20-5.40 10 6/uL Hemoglobin 13.7 12.0-16.0 g/dL Hematocrit 41.3 36.0-48.0 % Mean Corpuscular Volume 88.2 81.0-99.0 fL Mean Corpuscular Hemoglobin 29.3 26.7-34.0 pg Mean Corpuscular HGB Conc 33.2 29.9-35.2 g/dL Red Cell Distribution Width 13.1 11.0-15.0 % Platelet Count 299 150-450 10 3/uL Mean Platelet Volume 9.9 9.5-13.5 fL Neutrophils Percent Auto 67.3 43.0-75.0 % Lymphocytes Percent Auto 22.9 20.5-60.0 % Monocytes Percent Auto 8.3 1.7-12.0 % Eosinophils Percent Auto 0.3 0.9-7.0 % Basophils Percent Auto 1.0 0.2-2.0 % Immature Granulocytes Pct Auto 0.2 0.0-0.5 % Neutrophils Absolute Auto 4.1 1.4-6.5 10 3/uL Lymphocytes Absolute Auto 1.4 1.2-3.8 10 3/uL Monocytes Absolute Auto 0.5 0.3-0.8 10 3/uL Eosinophils Absolute Auto 0.0 0.0-0.7 10 3/uL Basophils Absolute Auto 0.1 0.0-0.1 10 3/uL Immature Granulocytes Abs Auto 0.01 0.00-0.03 10 3/uL Performing Lab: see note ML - [facility] Urine Culture, Routine Reviewed date:12/15/2023 08:05:55 PM Interpretation: Performing Lab: Notes/Report: [facility] , Urine Culture, Routine See Below For Report Urine Culture, Routine Organism: Gram negative stephanie : O:GNR Isolated O:KLEBPN Isolated Organism: 1.2 Antibiotic Interpretation SHI Status Urine Culture, Routine *ABNORMAL* Urine Culture, Routine Organism: Gram negative stephanie : O:GNR Isolated O:KLEBPN Isolated Organism: 1.2 Antibiotic Interpretation SHI Status Urine Culture, Routine 50,000-100,000 co lony forming units per mL Urine Culture, Routine Organism: Gram negative stephanie : O:GNR Isolated O:KLEBPN Isolated Organism: 1.2 Antibiotic Interpretation SHI Status Urine Culture, Routine Gram negative stephanie Urine Culture, Routine Organism: Gram negative stephanie : O:GNR Isolated O:KLEBPN Isolated Organism: 1.2 Antibiotic Interpretation SHI Status Urine Culture, Routine Organism: Klebsie lla pneumoniae. : Urine Culture, Routine Organism: Gram negative stephanie : O:GNR Isolated O:KLEBPN Isolated Organism: 1.2 Antibiotic Interpretation SHI Status Urine Culture, Routine *ABNORMAL* Urine Culture, Routine Organism: Gram negative stephanie : O:GNR Isolated O:KLEBPN Isolated Organism: 1.2 Antibiotic Interpretation SHI Status Urine Culture, Routine Cefazolin with an SHI <=16 predicts susceptibility to Urine Culture, Routine Organism: Gram negative stephanie : O:GNR Isolated O:KLEBPN Isolated Organism: 1.2 Antibiotic Interpretation SHI Status Urine Culture, Routine the oral agents c efaclor, cefdinir, cefpodoxime, Urine Culture, Routine Organism: Gram negative stephanie : O:GNR Isolated O:KLEBPN Isolated Organism: 1.2 Antibiotic Interpretation SHI Status Urine Culture, Routine cefprozil, cefuro wu, cephalexin, and loracarbef when Urine Culture, Routine Organism: Gram negative stephanie : O:GNR Isolated O:KLEBPN Isolated Organism: 1.2 Antibiotic Interpretation SHI Status Urine Culture, Routine used for therapy of uncomplicated urinary tract Urine Culture, Routine Organism: Gram negative stephanie : O:GNR Isolated O:KLEBPN Isolated Organism: 1.2 Antibiotic Interpretation SHI Status Urine Culture, Routine infections due to E. coli, Klebsiella pneumoniae, and Urine Culture, Routine Organism: Gram negative stephanie : O:GNR Isolated O:KLEBPN Isolated Organism: 1.2 Antibiotic Interpretation SHI Status Urine Culture, Routine Proteus mirabilis. Urine Culture, Routine Organism: Gram negative stephanie : O:GNR Isolated O:KLEBPN Isolated Organism: 1.2 Antibiotic Interpretation SHI Status Urine Culture, Routine 50,000-100,000 co lony forming units per mL Urine Culture, Routine Organism: Gram negative stephanie : O:GNR Isolated O:KLEBPN Isolated Organism: 1.2 Antibiotic Interpretation SHI Status Urine Culture, Routine Klebsiella pneumoniae. Urine Culture, Routine Organism: Gram negative stephanie : O:GNR Isolated O:KLEBPN Isolated Organism: 1.2 Antibiotic Interpretation SHI Status Urine Culture, Routine See Below For Report Urine Culture, Routine Organism: Gram negative stephanie : O:GNR Isolated O:KLEBPN Isolated Organism: 1.2 Antibiotic Interpretation SHI Status Urine Culture, Routine See Below For Report Urine Culture, Routine Organism: Gram negative stephanie : O:GNR Isolated O:KLEBPN Isolated Organism: 1.2 Antibiotic Interpretation SHI Status Urine Culture, Routine Performed at: [facility] Urine Culture, Routine Organism: Gram negative stephanie : O:GNR Isolated O:KLEBPN Isolated Organism: 1.2 Antibiotic Interpretation SHI Status Urine Culture, Routine [address] [place], [place] [phone] Urine Culture, Routine Organism: Gram negative stephanie : O:GNR Isolated O:KLEBPN Isolated Organism: 1.2 Antibiotic Interpretation SHI Status Urine Culture, Routine City Route Driver: Donis Macias PhD, Phone: [phone] Urine Culture, Routine Organism: Gram negative stephanie : O:GNR Isolated O:KLEBPN Isolated Organism: 1.2 Antibiotic Interpretation SHI Status Urine Culture, Routine See Below For Report Urine Culture, Routine Organism: Gram negative stephanie : O:GNR Isolated O:KLEBPN Isolated Organism: 1.2 Antibiotic Interpretation SHI Status Urine Culture, Routine AMOXICILLIN/CLAVU LANIC ACID S F Urine Culture, Routine Organism: Gram negative stephanie : O:GNR Isolated O:KLEBPN Isolated Organism: 1.2 Antibiotic Interpretation SHI Status Urine Culture, Routine Ampicillin R F Urine Culture, Routine Organism: Gram negative stephanie : O:GNR Isolated O:KLEBPN Isolated Organism: 1.2 Antibiotic Interpretation SHI Status Urine Culture, Routine Cefazolin S F Urine Culture, Routine Organism: Gram negative stephanie : O:GNR Isolated O:KLEBPN Isolated Organism: 1.2 Antibiotic Interpretation SHI Status Urine Culture, Routine Cefepime S F Urine Culture, Routine Organism: Gram negative stephanie : O:GNR Isolated O:KLEBPN Isolated Organism: 1.2 Antibiotic Interpretation SHI Status Urine Culture, Routine Ceftriaxone S F Urine Culture, Routine Organism: Gram negative stephanie : O:GNR Isolated O:KLEBPN Isolated Organism: 1.2 Antibiotic Interpretation SHI Status Urine Culture, Routine Cefuroxime S F Urine Culture, Routine Organism: Gram negative stephanie : O:GNR Isolated O:KLEBPN Isolated Organism: 1.2 Antibiotic Interpretation SHI Status Urine Culture, Routine Ciprofloxacin S F Urine Culture, Routine Organism: Gram negative stephanie : O:GNR Isolated O:KLEBPN Isolated Organism: 1.2 Antibiotic Interpretation SHI Status Urine Culture, Routine Ertapenem S F Urine Culture, Routine Organism: Gram negative stephanie : O:GNR Isolated O:KLEBPN Isolated Organism: 1.2 Antibiotic Interpretation SHI Status Urine Culture, Routine Gentamicin S F Urine Culture, Routine Organism: Gram negative stephanie : O:GNR Isolated O:KLEBPN Isolated Organism: 1.2 Antibiotic Interpretation SHI Status Urine Culture, Routine Imipenem S F Urine Culture, Routine Organism: Gram negative stephanie : O:GNR Isolated O:KLEBPN Isolated Organism: 1.2 Antibiotic Interpretation SHI Status Urine Culture, Routine Levofloxacin S F Urine Culture, Routine Organism: Gram negative stephanie : O:GNR Isolated O:KLEBPN Isolated Organism: 1.2 Antibiotic Interpretation SHI Status Urine Culture, Routine Meropenem S F Urine Culture, Routine Organism: Gram negative stephanie : O:GNR Isolated O:KLEBPN Isolated Organism: 1.2 Antibiotic Interpretation SHI Status Urine Culture, Routine Nitrofurantoin I F Urine Culture, Routine Organism: Gram negative stephanie : O:GNR Isolated O:KLEBPN Isolated Organism: 1.2 Antibiotic Interpretation SHI Status Urine Culture, Routine Tetracycline R F Urine Culture, Routine Organism: Gram negative stephanie : O:GNR Isolated O:KLEBPN Isolated Organism: 1.2 Antibiotic Interpretation SHI Status Urine Culture, Routine Tobramycin S F Urine Culture, Routine Organism: Gram negative stephanie : O:GNR Isolated O:KLEBPN Isolated Organism: 1.2 Antibiotic Interpretation SHI Status Urine Culture, Routine Trimethoprim/Sulf amethoxa zole S F Urine Culture, Routine Organism: Gram negative stephanie : O:GNR Isolated O:KLEBPN Isolated Organism: 1.2 Antibiotic Interpretation SHI Status Performing Lab: see note LC - [facility] LB SEE REPORT - Rouge Miller Id information not found for OBX-specific stonemason legend UA RANDOM W or MICROSCOPIC Reviewed date:12/08/2023 07:54:20 PM Interpretation: Performing Lab: Notes/Report: [facility] , Color Urine LT. YELLOW YELLOW Clarity Urine SL CLOUDY CLEAR Specific [place] Urine 1.025 1.005-1.025 pH Urine 6.0 5.0-9.0 Protein Urine TRACE NEG/TRACE mg/dL Glucose Urine UA NEGATIVE NEGATIVE mg/dL Bilirubin Urine NEGATIVE NEGATIVE Ketones Urine 15 NEGATIVE mg/dL Blood Urine TRACE-I NEGATIVE Nitrite Urine NEGATIVE NEGATIVE Urobilinogen Urine 0.2 0.2-1.0 EU/dL Leukocyte Esterase Urine SMALL NEGATIVE WBC Urine 20-50 NONE SEEN #/HPF RBC Urine 0-2 0-2 #/HPF Bacteria Urine MODERATE NONE SEEN #/HPF Mucus Urine MODERATE NONE SEEN Squamous Epithelial Cell Urine MODERATE NONE/RARE #/LPF Transitional Epi Cells Urine RARE NONE SEEN #/LPF Crystals Seen? None Seen None Seen #/HPF Cast Seen? NONE SEEN NONE SEEN #/LPF Urine Culture Indicated YES Performing Lab: see note ML - [facility] LB PROF 14(COMP METB) Reviewed date:11/25/2023 08:03:23 PM Interpretation: Performing Lab: Notes/Report: [facility] , Sodium 139 136-145 mmol/L Potassium 4.0 3.5-5.1 mmol/L Chloride 102 98-107 mmol/L Carbon Dioxide 28.5 21.0-32.0 mmol/L Anion Gap 12.5 Glucose 96 74-106 mg/dL Blood Urea Nitrogen 12.0 7.0-18.0 mg/dL Creatinine 0.67 0.55-1.02 mg/dL Estimated GFR ( Tasneem >60 >=60 Estimated GFR (Non- Michelle >60 >=60 BUN Creatinine Ratio 17.9 Calcium 9.0 8.5-10.1 mg/dL Bilirubin Total 0.5 0.2-1.0 mg/dL Aspartate Amino Transferase 21 15-37 U/L Alanine Aminotransferase 22 14-59 U/L Alkaline Phosphatase 69 46-116 U/L Total Protein 7.3 6.4-8.2 g/dL Albumin Level 3.9 3.4-5.0 g/dL Globulin 3.4 Albumin Globulin Ratio 1.1 Performing Lab: see note ML - [facility] US renal BI Reviewed date:01/03/2024 08:40:59 PM Interpretation: Performing Lab: Notes/Report: Source Facility: [place] [address] Ultrasound Report Signed Patient: YULIA DORSEY MR#: [id number] : 1965 Acct:[id number] Age/Sex: 58 / F ADM Date: 01/01/24 Loc: US Attending Dr: Bessie Faust NP Ordering Physician: Bessie Faust NP Date of Service: 01/01/24 Procedure(s): US renal BI Accession Number(s): [id number] cc: Bessie Faust NP; John Porter M.D. [place] [address] Patient Name: YULIA DORSEY MRN: [facility]:[id number] date: 1965 Sex: F Assigned Patient Location: Current Patient Location: Accession/Order Number: [id number] Exam Date: 01/01/2024 12:40 Report Date: 01/03/2024 07:46 At the request of: BESSIE FAUST Procedure: US renal BI EXAMINATION: US renal BI HISTORY: KIDNEY STONES N20.0 COMPARISON: No relevant comparison available. TECHNIQUE: Ultrasound examination was performed of the bladder. FINDINGS: Right Kidney: Normal in size, contour and cortical echotexture. The cortex measures 1 cm. No solid cortical mass, hydronephrosis or obstructing nephrolithiasis Height: 4.55 cm Length: 9.69 cm Width: 4.65 cm Left Kidney: Normal in size, contour and cortical echotexture. The cortex measures 1 cm. No solid cortical mass, hydronephrosis or obstructing nephrolithiasis Height: 5.41 cm Length: 10.28 cm Width: 4.62 cm Urinary bladder is normal in appearance measuring 5.1 x 8.5 x 5.4 cm a volume of 163 mL US/US renal BI IMPRESSION: Normal exam Electronically authenticated by: ELLYN ALVAREZ Date: 01/03/2024 07:46 Dictated By: Ellyn Alvarez M.D. Signed By: 01/03/2449 DD/ TD/TT: State Patrol Officer: [place] [address] Ultrasound Report Signed Patient: YULIA DORSEY MR#: [id number] : 1965 Acct:[id number] Age/Sex: 58 / F ADM Date: 01/01/24 Loc: US Attending Dr: Bessie Faust NP Ordering Physician: Bessie Faust NP Date of Service: 01/01/24 Procedure(s): US renal BI Accession Number(s): [id number] cc: Bessie Faust NP; John Porter M.D. [place] [id number] Patient Name: YULIA DORSEY MRN: [id number] date: 1965 Sex: F Assigned Patient Location: US Current Patient Location: Accession/Order Numb er: [id number] Exam Date: 01/01/2024 12:40 Report Date: 01/03/2024 07:46 At the request of: BESSIE FAUST Procedure: US renal BI EXAMINATION: US renal BI HISTORY: KIDNEY STON ES N20.0 COMPARISON: No relev ant comparison available. TECHNIQUE: Ultrasoun d examination was performed of the bladder. FINDINGS: Right Kidney: Normal in size, contour and cortical echotexture. The cortex measures 1 cm. No so lid cortical mass, hydronephrosis or obstructing nephrolithiasis Height: 4.55 cm Ching th: 9.69 cm Width: 4.65 cm Left Kidney: Normal in size, contour and cortical echotexture. The cortex measures 1 cm. No so lid cortical mass, hydronephrosis or obstructing nephrolithiasis Height: 5.41 cm Ching th: 10.28 cm Width: 4.62 cm Urinary bladder is n ormal in appearance measuring 5.1 x 8.5 x 5.4 cm a volume of 163 mL U S/US renal BI IMPRESSION: Normal exam Electronically authenticated by: ELLYN ALVAREZ Date: 01/03/2024 07:46 Dictated By: Bhavik Alvarez M.D. Signed By: 01/03/2449 DD/ TD/TT: State Patrol Officer: PROF Mariee(COMP METB) Reviewed date:08/27/2024 12:30:00 PM Interpretation: Performing Lab: Notes/Report: [facility] , Sodium 142 136-145 mmol/L Potassium 3.9 3.5-5.1 mmol/L Chloride 102 98-107 mmol/L Carbon Dioxide 30.0 21.0-32.0 mmol/L Anion Gap 13.9 Glucose 95 74-106 mg/dL Blood Urea Nitrogen 10.0 7.0-18.0 mg/dL Creatinine 0.63 0.55-1.02 mg/dL Estimated GFR ( Tasneem >60 >=60 mL/min/1.73m 2 Estimated GFR (Non- Michelle >60 >=60 mL/min/1.73m 2 BUN Creatinine Ratio 15.9 Calcium 9.2 8.5-10.1 mg/dL Bilirubin Total 0.5 0.2-1.0 mg/dL Aspartate Amino Transferase 18 15-37 U/L Alanine Aminotransferase 21 14-59 U/L Alkaline Phosphatase 69 46-116 U/L Total Protein 7.5 6.4-8.2 g/dL Albumin Level 3.9 3.4-5.0 g/dL Globulin 3.6 Albumin Globulin Ratio 1.1 Performing Lab: see note ML - [facility] LB CORTISOL AM Reviewed date:08/27/2024 05:04:20 PM Interpretation: Performing Lab: Notes/Report: [facility] , Cortisol - AM 22.3 6.2-19.4 ug/dL Performed at: - [facility] [address] [id number] City Route Driver: Ti Macias PhD, Phone: [phone] Performing Lab: see note LC - [facility] LB BNP Reviewed date:08/03/2024 12:13:06 PM Interpretation: Performing Lab: Notes/Report: [facility] , NT Pro B Type Natriuretic Pept 83.0 <=900.0 pg/mL Performing Lab: see note ML - [facility] LB PROF 14(COMP METB) Reviewed date:12/21/2023 04:03:43 PM Interpretation: Performing Lab: Notes/Report: [facility] , Sodium 140 136-145 mmol/L Potassium 4.2 3.5-5.1 mmol/L Chloride 100 98-107 mmol/L Carbon Dioxide 31.3 21.0-32.0 mmol/L Anion Gap 12.9 Glucose 111 74-106 mg/dL Blood Urea Nitrogen 11.0 7.0-18.0 mg/dL Creatinine 0.63 0.55-1.02 mg/dL Estimated GFR ( Tasneem >60 >=60 Estimated GFR (Non- Michelle >60 >=60 BUN Creatinine Ratio 17.5 Calcium 9.9 8.5-10.1 mg/dL Bilirubin Total 0.5 0.2-1.0 mg/dL Aspartate Amino Transferase 15 15-37 U/L Alanine Aminotransferase 21 14-59 U/L Alkaline Phosphatase 81 46-116 U/L Total Protein 8.1 6.4-8.2 g/dL Albumin Level 4.2 3.4-5.0 g/dL Globulin 3.9 Albumin Globulin Ratio 1.1 Performing Lab: see note ML - [facility] LB CBC AUTO DIFF Reviewed date:12/21/2023 04:03:43 PM Interpretation: Performing Lab: Notes/Report: [facility] , White Blood Count 6.5 4.0-11.0 10 3/uL Red Blood Count 4.84 4.20-5.40 10 6/uL Hemoglobin 14.3 12.0-16.0 g/dL Hematocrit 42.5 36.0-48.0 % Mean Corpuscular Volume 87.8 81.0-99.0 fL Mean Corpuscular Hemoglobin 29.5 26.7-34.0 pg Mean Corpuscular HGB Conc 33.6 29.9-35.2 g/dL Red Cell Distribution Width 13.2 11.0-15.0 % Platelet Count 310 150-450 10 3/uL Mean Platelet Volume 10.0 9.5-13.5 fL Neutrophils Percent Auto 63.0 43.0-75.0 % Lymphocytes Percent Auto 26.3 20.5-60.0 % Monocytes Percent Auto 9.6 1.7-12.0 % Eosinophils Percent Auto 0.3 0.9-7.0 % Basophils Percent Auto 0.6 0.2-2.0 % Immature Granulocytes Pct Auto 0.2 0.0-0.5 % Neutrophils Absolute Auto 4.1 1.4-6.5 10 3/uL Lymphocytes Absolute Auto 1.7 1.2-3.8 10 3/uL Monocytes Absolute Auto 0.6 0.3-0.8 10 3/uL Eosinophils Absolute Auto 0.0 0.0-0.7 10 3/uL Basophils Absolute Auto 0.0 0.0-0.1 10 3/uL Immature Granulocytes Abs Auto 0.01 0.00-0.03 10 3/uL Performing Lab: see note - [facility] LB AMYLASE Reviewed date:12/21/2023 04:03:43 PM Interpretation: Performing Lab: Notes/Report: [facility] , Amylase 40 25-115 U/L Performing Lab: see note - [facility] LB Cortisol Reviewed date:09/03/2024 06:17:14 PM Interpretation: Performing Lab: Notes/Report: [facility] , Cortisol 25.7 6.2-19.4 ug/dL Please Note: The reference interval and flagging for this test is for an AM collection. If this is a PM collection please use: Cortisol PM: 2.3-11.9 Performed at: - [facility] [address] [id number] City Route Driver: Ti Macias PhD, Phone: [phone] Performing Lab: see note - [facility] LB MM tomosynthesis screening B I Reviewed date:06/14/2024 07:21:54 PM Interpretation: Performing Lab: Notes/Report: Source Facility: [facility]-[address] [place] [address] [place] [address] Mammography Report Signed Patient: YULIA DORSEY MR#: [id number] : 1965 Acct:[id number] Age/Sex: 58 / F ADM Date: 05/30/24 Loc: MAMMO Attending Dr: Katie Rust D.O. Ordering Physician: Katie Rust D.O. Results: Date of Service: 05/30/24 Follow Up: Procedure(s): MM tomosynthesis screening BI Accession Number(s): [id number] cc: Katie Rust D.O.; John Porter M.D. Patient Name: YULIA DORSEY MR#: [id number] : 1965 Exam Date: 05/30/2024 Ordering Doctor: [...] at age 40. LOCATION: [facility] BREAST COMPOSITION: The breasts are [...] Strong M.D. Signed By: 05/30/24 1635 DD/ 163 TD/TT: State Patrol Officer: [place] [address] Mammography Report Signed Patient: YULIA DORSEY MR#: [id number] : 1965 Acct:[id number] Age/Sex: 58 / F ADM Date: 05/30/24 Loc: MAMMO Attending Dr: Katie Rust D.O. Ordering Physician: Katie Rust D.O. Results: Date of Service: 08/18 Follow Up: Procedure(s): MM tomosynthesis screening BI Accession Number(s): [id number] cc: Katie Rust D.O. ; John Porter M.D. Patient Name: YULIA DORSEY MR#: [id number] : 1965 Exam Date: 05/30/2024 Ordering Doctor: DR Katie Rust . RADIOLOGY REPORT PROCEDURE: MM TOMOSYNTHESIS SCREENING BI COMPARISON: MG MAMM DX 3D RT CAD, 09/22/2022. MG MAMM SCREEN 3D SUSANA CAD, 02/10/2022. MG MAMM SUSANA SCRN W CAD DIG, 02/16/2014. INDICATIONS: Screening Calculator Name NCI Breast Cancer Risk Assessment Tool 5 Year Breast Cancer Risk 1.00% Lifetime Breast Canc er Risk 5.60% Personal Breast Cancer No Personal Ovarian Can cer No Treatments None Family Cancers Cousin-paternal with breast cancer at age 54; Cousin-maternal with breast cancer at age 40. LOCATION: [facility] BREAST COMPOSITION: The breasts are almost entirely fatty. FINDINGS: DIAGNOSTIC CATEGORY 1--NEGATIVE. RIGHT BREAST: No significant suspicious finding. No significant change has occurred. LEFT BREAST: No significant suspicious finding. No significant change has occurred. RECOMMENDATIONS: ROUTINE MAMMOGRAM AN D CLINICAL EVALUATION IN 12 MONTHS. PLEASE NOTE: A DAR L MAMMOGRAM DOES NOT EXCLUDE THE POSSIBILITY OF BREAST CANCER. A CLINICALLY SUSPICIOUS PALPABLE LUMP SHOULD BE BIOPSIED. Dictated by: Gabo Strong M.D. on 05/30/2024 at 16:32 Approved by: Gabo Strong M.D. on 05/30/2024 at 16:34 Dictated By: Gabo Strong M.D. Signed By: 05/30/24 1635 DD/ 33 TD/TT: State Patrol Officer: Urine Culture, Routine Reviewed date:12/24/2023 12:41:09 PM Interpretation: Performing Lab: Notes/Report: [facility] , Urine Culture, Routine See Below For Report Urine Culture, Routine Urine Culture, Routine Mixed urogenital umu Urine Culture, Routine Urine Culture, Routine 10,000-25,000 col nelson forming units per mL Urine Culture, Routine Urine Culture, Routine Performed at: [facility] Urine Culture, Routine Urine Culture, Routine [address] [place], [place] [id number] Urine Culture, Routine Urine Culture, Routine City Route Driver: Donis Macias PhD, Phone: [phone] Urine Culture, Routine Performing Lab: see note LC - [facility] LB SEE REPORT - [place] Id information not found for OBX-specific stonemason legend US renal bladder Reviewed date:12/08/2023 07:54:20 PM Interpretation: Performing Lab: Notes/Report: Source Facility: [place] [address] Ultrasound Report Signed Patient: YULIA DORSEY MR#: [id number] : 1965 Acct:[id number] Age/Sex: 58 / F ADM Date: 12/07/23 Loc: US Attending Dr: John Porter M.D. Ordering Physician: John Porter M.D. Date of Service: 12/07/23 Procedure(s): US renal bladder Accession Number(s): [id number] cc: John Porter M.D. [place] [id number] Patient Name: YULIA DORSEY MRN: [id number] date: 1965 Sex: F Assigned Patient Location: US Current Patient Location: Accession/Order Number: [id number] Exam Date: 12/07/2023 07:52 Report Date: 12/08/2023 07:40 At the request of: JOHN PORTER Procedure: US renal bladder EXAMINATION: US renal bladder HISTORY: Urinary Retention R33.9 COMPARISON: 11/23/2023 TECHNIQUE: Ultrasound examination was performed of the bladder. FINDINGS: Right Kidney: Normal in size, contour and cortical echotexture. The cortex measures 1.0 cm. No solid cortical mass, hydronephrosis or obstructing nephrolithiasis. Height: 4.83 cm Length: 11.15 cm Width: 5.64 cm Left Kidney: Normal in size, contour and cortical echotexture. The cortex measures 1.2 cm. No solid cortical mass, hydronephrosis or obstructing nephrolithiasis Height: 5.87 cm Length: 10.67 cm Width: 4.81 cm Urinary bladder wall measures 1.4 mm, normal. Prevoid volume 154 mL. Post void volume 8 mL Ureteral jets: Visualized bilaterally US/US renal bladder IMPRESSION: Minimal post void residual of 8 mL Electronically authenticated by: ELLYN ALVAREZ Date: 12/08/2023 07:40 Dictated By: Ellyn Alvarez M.D. Signed By: 12/08/2342 DD/ TD/TT: State Patrol Officer: [place] [address] Ultrasound Report Signed Patient: YULIA DORSEY MR#: [id number] : 1965 Acct:[id number] Age/Sex: 58 / F ADM Date: 12/07/23 Loc: US Attending Dr: Kristopher Porter M.D. Ordering Physician: John Porter M.D. Date of Service: 12/07/23 Procedure(s): US amber al bladder Accession Number(s): [id number] cc: John Porter M.D. [place] [id number] Patient Name: YULIA DORSEY MRN: [id number] date: 1965 Sex: F Assigned Patient Location: Current Patient Location: Accession/Order Numb er: [id number] Exam Date: 12/07/2023 07:52 Report Date: 12/08/2023 07:40 At the request of: JOHN PORTER Procedure: US renal bladder EXAMINATION: US dago l bladder HISTORY: Urinary Retention R33.9 COMPARISON: 11/23/2023 TECHNIQUE: Ultrasoun d examination was performed of the bladder. FINDINGS: Right Kidney: Normal in size, contour and cortical echotexture. The cortex measures 1.0 cm. No solid cortical mass, hydronephrosis or obstructing nephrolithiasis. Height: 4.83 cm Ching th: 11.15 cm Width: 5.64 cm Left Kidney: Normal in size, contour and cortical echotexture. The cortex measures 1.2 cm. No solid cortical mass, hydronephrosis or obstructing nephrolithiasis Height: 5.87 cm Ching th: 10.67 cm Width: 4.81 cm Urinary bladder wall measures 1.4 mm, normal. Prevoid volume 154 mL. Post void volume 8 mL Ureteral jets: Visua lized bilaterally U S/US renal bladder IMPRESSION: Minimal post void residual of 8 mL Electronically authenticated by: ELLYN ALVAREZ Date: 12/08/2023 07:40 Dictated By: Bhavik Alvarez M.D. Signed By: 12/08/2342 DD/ TD/TT: State Patrol Officer: Reason For Referral Diagnosis 1 Elevated cortisol le michelle (R79.89) Referral Organization [facility] Referring Provider First Name Prashant Referring Provider Last Name [facility] Referring Provider [facility] Referred Provider Allyson Thomas Referred Provider Specialty Internal Med icine Referral Priority Routine Diagnosis 1 Elevated cortisol le michelle (E27.0) Referral Organization [facility] Referring Provider First Name Prashant Referring Provider Last Name [facility] Referring Provider [facility] Referred Provider Gala Flores Referred Provider Specialty Endocrinolog y Referral Priority Routine Medications Medication SIG (Take, Route, Frequency, Duration) [...] a day for 30 day(s) 01/31/2024 Active Hyoscyamine Sulfate 0.125 MG 1-2 tabs SL SL every 4 hrs PRN abd pain 07/05/2024 Active hydrOXYzine HCl 10 MG/5ML 5 - 10 ml Orally every 6 hrs for 30 days As needed 08/04/2024 Active hydrOXYzine HCl 25 MG 1 tablet as needed Orally qid for 10 days 08/03/2024 Active Cranberry Active Meclizine HCl 25 MG 1 tablet as needed O rally every 12 hrs for 30 days PRN Active L-Theanine Active Immunizations Vaccine Route Administration Date Status Comme nts Tdap (Boostrix) IM Intramuscular 10/05/2022 Administered Social History Tobacco Use: Social History Observation Description Date Details (start date - stop date) Never Smoker NA - NA Tobacco Use/Smoking Question Answer Notes Patient is a nonsmoker Alcohol Screen (Audit-C) Question Answer Notes Did you have a drink contain ing alcohol in the past year? Yes How often did you have 6 or more drinks on one occasion in the past year? Never (0 point) How many drinks did you have on a typical day when you were drinking in the past year? 1 or 2 drinks (0 point) How often did you have a dri nk containing alcohol in the past year? Less than monthly (1 point) Points 1 Interpretation Negative AUDIT-C (Standard) Question Answer Notes Did you have a drink containing alcohol in the p ast year? No Points 0 Interpretation Negative Problems Problem Type SNOMED Code ICD Code Onset Dates Problem Status W/U Status Risk Notes Problem Streptococcal pharyngitis (56789847) Streptococcal pharyngitis (J02.0) Active confirmed Problem 94570146 Other specified acquired deformities of left lower leg (M21.862) Active confirmed Problem Palpitations (00944463) Palpitations (R00.2) Active confirmed Problem Snoring (81407404) Snoring (R06.83) Active conf irmed Problem 619192885 Paresthesia of skin (R20.2) Active confirmed Problem Neck sprain (429745891) Strain of muscle, fascia and tendon at neck level, initial encounter (S16.1XXA) Active confirmed Problem Contusion of right elbow (44430982807496872 ) Contusion of right elbow, initial encounter (S50.01XA) Active confirmed Problem Chest pain (60592226) Chest pain (R07.9) Active confirmed Problem Fatigue (14234763) Fatigue (R53.83) Active conf irmed Problem Chronic obstructive pulmonary disease (83319280) Chronic obstructive pulmonary disease (J44.9) Active confirmed Problem Hypertension (02908974) Hypertension (I10) Active confirmed Problem Chronic obstructive pulmonary disease (72511969) Chronic obstructive pulmonary disease (COPD) (J44.9) Active confirmed Problem Anxiety (90112444) Anxiety (F41.9) Active confi rmed Problem Neck pain (73852266) Neck pain (M54.2) Active confirmed Problem Arthritis (0945160) Arthritis (M19.90) Active confirmed Problem Obstructive sleep apnea (85182114) Obstructive sleep apnea (G47.33) Active confirmed Problem Insomnia (461664927) Insomnia (G47.00) Active confirmed Problem Hiatal hernia (95094952) Hiatal hernia (K44.9) Active confirmed Problem Eczema (28540025) Eczema (L30.9) Active confirm ed Problem Migraine (99577013) Migraine (G43.909) Active confirmed Problem Pain in limb (60243583) Pain in joint, hand (M79.643) Active confirmed Problem Sinusitis (82112563) Sinusitis (J32.9) Active confirmed Problem Hot flashes (551164587) Hot flashes (N95.1) Active confirmed Problem Kidney stone (18717622) Kidney stones (N20.0) Active confirmed Problem Allergic rhinitis (89277181) Allergic rhinitis (J30.9) Active confirmed Problem Constipation (74052293) Constipation (K59.00) Active confirmed Problem Menorrhagia (922708695) Menorrhagia (N92.0) Active confirmed Problem Acute bronchitis (97326925) Acute bronchitis (J20.9) Active confirmed Problem Well adult (224713127) Well adult (Z00.00) Active confirmed Problem Hypoglycemia (214558565) Hypoglycemia (E16.2) Active confirmed Problem Mass of neck (768541555) Neck mass (R22.1) Active confirmed Problem Pre-surgery evaluation (418176533) Pre-op exam (Z01.818) Active confirmed Problem Seasonal allergic rhinitis (726332341) Seasonal allergic rhinitis (J30.2) Active confirmed Problem Meniere disease (45572651) Meniere disease (H81.09) Active confirmed Problem Near syncope (451062774) Near syncope (R55) Active confirmed Problem Contact dermatitis (35383727) Contact dermatitis (L25.9) Active confirmed Problem Gastroenteritis (76482575) Gastroenteritis (K52.9) Active confirmed Problem Iron deficiency anemia (02309564) Anemia, iron deficiency (D50.9) Active confirmed Problem Aphthous ulcer (275560356) Aphthous ulcer (K12.0) Active confirmed Problem 910980708 Bilateral edema of lower extremity (R60.0) Active confirmed Problem Methicillin resistant Staphylococcus aureus (731702269) MRSA (methicillin resistant Staphylococcus aureus) (A49.02) Active confirmed Problem Duodenitis (52503739) Duodenitis (K29.80) Active confirmed Problem Head contusion (S00.93XA) Active confirmed Problem Facial palsy (638104458) 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) Active confirmed Problem Viral exanthem (93325994) Viral exanthem (B09) Active confirmed Problem Panic attack (276845627) Panic attack (F41.0) Active confirmed Problem Increased cortisol level (281208924) Elevated cortisol level (E27.0) Active confirmed Problem Essential hypertension (18696248) Essential (primary) hypertension (I10) Active confirmed Problem Breakthrough bleeding (64003422) Breakthrough bleeding (N92.1) Active confirmed Problem Peripheral vertigo (99821527) Peripheral vertigo (H81.399) Active confirmed Problem Acute urinary tract infection (101485427) Acute UTI (N39.0) Active confirmed Problem Chronic obstructive airway disease (89361843) Chronic obstructive airway disease (J44.9) Active confirmed Problem Gastro-esophageal reflux disease (739518186) Gastro-esophageal reflux disease (K21.9) Active confirmed Problem Shoulder impingement syndrome (714453848) Shoulder impingement syndrome (M75.40) Active confirmed Problem Irregular intermenstrual bleeding (82480226) Irregular intermenstrual bleeding (N92.1) Active confirmed Problem Irritable bowel syndrome (48334396) Irritable bowel syndrome (IBS) (K58.9) Active confirmed Problem Elevated blood pressure (22980930) Elevated blood pressure (I10) Active confirmed Problem Ovarian cyst (94195880) Ovarian cyst (N83.209) Active confirmed Problem Infectious mononucleosis (488084662) Infectious mononucleosis without complication, infectious mononucleosis due to unspecified organism (B27.90) Active confirmed Problem 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 (538733607) Viral hepatitis, unspecified chronicity, unspecified viral hepatitis type (B19.9) Active confirmed Problem 508851015 Infection of alberto l bed of toe of right foot (L03.031) Active confirmed Problem Myalgia (34641288) Myalgia (M79.10) Active conf irmed Problem Disease caused by Severe acute respiratory syndrome coronavirus 2 (disorder) (464060703) COVID-19 virus infection (U07.1) Active confirmed Problem Generalized headache (162168936) Generalized headache (R51.9) Active confirmed Problem Low back pain (400044317) Low back pain, unspecified (M54.50) Active confirmed Vital Signs Blood pressure diastolic 82 mm Hg 08/03/2024 Height 64 in 09/07/2024 Blood pressure systolic 160 mm Hg 08/03/2024 Weight 158.2 lbs 08/24/2024 BMI 27.15 kg/m2 08/24/2024 Procedures Procedure Date Ordered Date Performed Result Body Sit e *CARDIO Holter Event Monitor 4 weeks 01/12/2024 N/A Encounters Encounter Location Date Provider Diagnosis [facility] [address] [place] [address] 09/27/2023 JOHN HOY [facility] [address] [place] [address] 11/19/2023 Prashant Hoy [facility] [address] [place] [address] 11/22/2023 Prashant Hoy Flank pain R10.9 [facility] [address] [place] [address] 11/23/2023 Prashant Hoy Kidney stones N20.0 [facility] [address] [place] [address] 11/25/2023 Prashant Hoy [facility] [address] [place] [address] 12/02/2023 Prashant Hoy Urinary retention R33.9 [facility] [address] [place] [address] 12/08/2023 Prashant Hoy Burning with urinati on R30.0 [facility] [address] [place] [facility] [place] [address] 12/08/2023 Prashant Porter [facility] [address] [facility] [place] [address] 12/14/2023 Prashant Porter [facility] [address] [facility] [place] [address] 12/14/2023 Elmira Castro [facility] [address] [facility] [place] [address] 12/15/2023 Elmira Castro Urinary tract infection N39.0 [facility] [address] [facility] [place] [address] 12/15/2023 Prashant Porter [facility] [address] [place] [address] 12/20/2023 Prashant Porter [facility] [address] [place] [address] 12/21/2023 Prashant Porter [facility] [address] [place] [address] 12/23/2023 Prashant Porter Acute UTI N39.0 [facility] [address] [facility] [place] [address] 12/24/2023 Prashant Porter [facility] [address] [place] [address] 12/28/2023 Prashant Porter [facility] [address] [place] [address] 01/06/2024 Prashant Porter [facility] [address] [facility] [place] [address] 01/11/2024 Prashant Porter [facility] [address] [facility] [place] [address] 01/27/2024 Prashant Porter Hypoglycemia E16.2 [facility] [address] [facility] [place] [address] 01/29/2024 Prashant Porter Urine frequency R35. 0 [facility] [address] [facility] [place] [address] 01/31/2024 Prashant Porter [facility] [address] [place] [facility] [place] [place] [address] 02/27/2024 Prashant German [facility] [address] [place] [facility] [place] [address] 03/30/2024 Prashant Porter [facility] [address] [place] [facility] [place] [place] [address] 05/28/2024 Prashant Swanlars [facility] [address] [place] [facility] [place] [place] [address] 05/31/2024 Prashant Swanlars [facility] [address] [facility] [id number] 07/05/2024 Prashant German [facility] [address] [place] [place] [address] 07/06/2024 Prashant Swany Vertigo R42 and Headache R51.9 [facility] [address] [place] [place] [address] 08/03/2024 Prashant Porter [facility] [address] [facility] [address] 08/04/2024 Prashant Hoy Hypertension I10 [facility] [address] [place] [place] [address] 08/27/2024 Prashant German [facility] [address] [place] [place] [address] 08/27/2024 Prashant Hoy Essential (primary) hypertension I10 and Meniere disease H81.09 [facility] [address] [place] [place] [address] 09/03/2024 Prashant German [facility] [address] [place] [place] [address] 09/04/2024 Prashant Swany Elevated cortisol level R79.89 [facility] [address] [place] [place] [address] 09/04/2024 Prashant Porter [facility] [address] [place] [place] [address] 09/13/2024 Prashant Hoy Elevated cortisol level E27.0 [facility] [address] [place] [place] [address] 09/19/2024 Prashant Hoy [facility] [address] [place] [place] [address] 10/27/2023 Prashant Hoy Well adult Z00.00 [facility] [address] [place] [address] 12/16/2023 Prashant Hoy Acute UTI N39.0 [facility] [address] [place] [facility] [place] [address] 07/06/2024 Prashant Hoy Essential (primary) hypertension I10 and Head contusion S00.93XA [facility] [address] [place] [place] [address] 12/14/2023 [place] Gloria UTI (urinary tract infection) N39.0 [facility] [address] [place] [place] [address] 04/20/2024 Prashant Hoy Neck mass R22.1 [facility] [address] [place] [place] [address] 05/25/2024 Prashant Hoy Elevated blood pressure I10 and Acute UTI N39.0 [facility] [address] [place] [place] [address] 12/21/2023 Prashant Hoy Essential (primary) hypertension I10 and Acute UTI N39.0 [facility] [address] [place] [address] 01/12/2024 Prashant Hoy Essential (primary) hypertension I10 and Palpitations R00.2 [facility] [address] [place] [place] [address] 03/29/2024 Prashant Hoy Acute bronchitis, unspecified organism J20.9 [facility] [address] [place] [place] [address] 08/03/2024 Prashant Hoy Hypertension I10 and Well adult Z00.00 [facility] [address] [place] [place] [address] 08/24/2024 Prashant Hoy Essential (primary) hypertension I10 and Dermatitis L30.9 [facility] [address] [place] [address] 09/04/2024 Prashant Porter Elevated cortisol level E27.0 [facility] [address] [place] [address] 09/07/2024 Prashant Porter Insomnia G47.00 Assessments Encounter Date Diagnosis (ICD Code) Assessment Notes Treatment Notes Treatment Clinical Notes Section Notes 11/22/2023 Flank pain (ICD-10 - R10.9) 11/23/2023 Kidney stones (ICD-10 - N20.0) 12/02/2023 Urinary retention (ICD-10 - R33.9) 12/08/2023 Burning with urination (ICD-10 - R30.0) 12/15/2023 Urinary tract infection (ICD-10 - N39.0) 12/23/2023 Acute UTI (ICD-10 - N39.0) 01/27/2024 Hypoglycemia (ICD-10 - E16.2) 01/29/2024 Urine frequency (ICD-10 - R35.0) 07/06/2024 Vertigo (ICD-10 - R42) 07/06/2024 Headache (ICD-10 - R51.9) 08/04/2024 Hypertension (ICD-10 - I10) 08/27/2024 Essential (primary) hypertension (ICD-10 - I10) 08/27/2024 Meniere disease (ICD-10 - H81.09) 09/04/2024 Elevated cortisol level (ICD-10 - R79.89) 09/13/2024 Elevated cortisol level (ICD-10 - E27.0) 10/27/2023 Well adult (ICD-10 - Z00.00) 12/14/2023 UTI (urinary tract infection) (ICD-10 - N39.0) does not want to take Macrobid until we know what latest culture results are taking amox, has few days of continue monitor sx, if fever, back pain, nausea, etc let office know, seek care culture results should be in today , tomorrow requesting bloodwork for peace of mind 12/16/2023 Acute UTI (ICD-10 - N39.0) 12/21/2023 Essential (primary) hypertension (ICD-10 - I10) 12/21/2023 Acute UTI (ICD-10 - N39.0) 01/12/2024 Essential (primary) hypertension (ICD-10 - I10) ecg here normal - no ST depression - has incomplete RBBB 01/12/2024 Palpitations (ICD-10 - R00.2) 03/29/2024 Acute bronchitis, unspecified organism (ICD-10 - J20.9) Rest and drink more liquids, especially water. You may use a humidifier or vaporizer to help keep the drainage moist. Uths-fwu-lgyvpln Nasal Saline may help the stuffy and runny nose. Use Ibuprofen and or Tylenol as needed for fever, chills, body aches or pain. Children 5 years old should not be given xskz-gxy-cuohjdk cough and cold medications such as guaifenesin and dextromethorphan. If you're over age 5, you may try fomw-smu-yqtnjws cold medications such as guaifenesin and dextromethorphan, or multi-symptom cold reliever such as Dayquil to help reduce the symptoms. Antibiotics have been prescribed. You should take these until completed and follow the directions. Antibiotics can sometimes cause upset stomach, and in rare cases, serious allergic reactions or serious gastrointestinal problems. If you start having severe abdominal pain, severe vomiting, or bloody diarrhea, you should be reevaluated by your physician or urgent care immediately. Follow up with your Primary Care Provider or return to clinic if symptoms do not improve within 3-5 days. If you develop severe symptoms such as shortness of breath, repeated vomiting, coughing up blood, or chest pain you should go to the emergency room or call 911 04/20/2024 Neck mass (ICD-10 - R22.1) left post mass 05/25/2024 Elevated blood pressure (ICD-10 - I10) 05/25/2024 Acute UTI (ICD-10 - N39.0) 07/06/2024 Essential (primary) hypertension (ICD-10 - I10) 07/06/2024 Head contusion (ICD-10 - S00.93XA) 08/03/2024 Hypertension (ICD-10 - I10) 08/03/2024 Well adult (ICD-10 - Z00.00) 08/24/2024 Essential (primary) hypertension (ICD-10 - I10) 08/24/2024 Dermatitis (ICD-10 - L30.9) 09/04/2024 Elevated cortisol level (ICD-10 - E27.0) off work - RTW september 25 - unless needs longet till seen by endocrine 09/07/2024 Insomnia (ICD-10 - G47.00) Plan Of Treatment Pending Test Test Name Order Date CMP (COMPLETE METABOLIC PANEL) 3 CMP (COMPLETE METABOLIC PANEL) 4 CMP (COMPLETE METABOLIC PANEL) 4 UA (URINALYSIS, COMPLETE) 12/08/2023 UA (URINALYSIS, COMPLETE) 12/15/2023 UA (URINALYSIS, COMPLETE) 12/23/2023 UA (URINALYSIS, COMPLETE) 01/29/2024 CULTURE, URINE w SENSITIVITY 12/08/2023 HEMOGLOBIN A1C (GLYCO) 08/03/2024 HEMOGLOBIN A1C (GLYCO) 09/25/2022 IRON, TOTAL 09/25/2022 LIPID PANEL (CHOL/TRIG/HDL/LDL) 09/26/19 23 LIPID PANEL (CHOL/TRIG/HDL/LDL) 08/04/19 25 CBC WITH DIFF 09/25/2022 CBC WITH DIFF 12/14/2023 UA (URINALYSIS, MICRO ONLY) 01/29/2024 VITAMIN D, 25 LEVEL (TOTAL) 09/25/2022 MRI Brain w/wo contrast * 08/04/2022 MRI Brain w/wo contrast * 09/13/2023 Urinalysis Microscopic 12/21/2023 Urinalysis Microscopic 05/25/2024 Urine Culture 12/15/2023 RHEUMATOID PANEL 09/13/2023 RHEUMATOID PANEL 12/25/2022 RHEUMATOID PANEL 09/25/2022 Cologuard 09/25/2022 Insulin Level 09/25/2022 CMP - Comprehensive Metabolic Panel 11/25 Cortisol 08/27/2024 High Sensitivity Troponin 08/03/2024 MRI Brain w/o Contrast 07/06/2024 C. DIFF PCR 11/11/2022 CBC AUTO DIFF 11/11/2022 CBC AUTO DIFF 12/25/2022 CBC AUTO DIFF 11/13/2022 CRP 12/25/2022 CULTURE URINE 12/21/2023 CULTURE URINE 05/25/2024 CULTURE URINE 01/29/2024 CULTURE URINE 12/23/2023 GI PANEL (PCR) 11/11/2022 GLYCOHEMOGLOBIN A1C 12/25/2022 MAGNESIUM 12/15/2022 OCC BLD IMMUNO SCREEN 11/11/2022 PROF 14(COMP METB) 12/25/2022 PROF 14(COMP METB) 11/11/2022 PROF 14(COMP METB) 11/13/2022 SED RATE WESTERGREN 12/25/2022 SED RATE WESTERGREN 09/13/2023 THYROID PROFILE WITH TSH 09/13/2023 THYROID PROFILE WITH TSH 12/25/2022 URINE MICROSCOPIC ONLY 12/15/[address] WO CON 04/20/2024 US KIDNEYS 11/22/2023 US KIDNEYS BLADDER 12/02/2023 XR CHEST 2 V 03/29/2024 THYROID PANEL (T4/TSH/FREE T3) 3 THYROID PANEL (T4/TSH/FREE T3) 3 THYROID PANEL (T4/TSH/FREE T3) 5 Cortisol 09/13/2024 URINALYSIS MICROSCOPIC 12/08/2023 *CARDIO Holter Event Monitor 4 weeks CMP (COMP MET NIXON) w/eGFR CKD-EPI 2024 CBC WITH DIFF 08/03/2024 Insurance Providers Payer Name Payer Address Payer Phone Subscriber Number Group Number Insured Name Patient Relationship to Insured Coverage Start Date Coverage End Date [employer] [address] [place], [place] [id number] Yulia Dorsey Self - patient is the insured 4 Medical (General) History Medical History History ICD Code Elevated blood pressure I10 Chronic obstructive airway disease J44.9 Chronic obstructive pulmonary disease J4 4.9 COVID-19 virus infection U07.1 Hot flashes N95.1 Viral exanthem B09 Low back pain, unspecified M54.50 Sinusitis J32.9 Obstructive sleep apnea G47.33 Snoring R06.83 Breakthrough bleeding N92.1 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 Constipation K59.00 Chest pain R07.9 Streptococcal pharyngitis J02.0 Bilateral edema of lower extremity R60.0 Acute gastroenteritis K52.9 Shoulder impingement syndrome M75.40 Neck pain M54.2 Pain in joint, hand M79.643 Fatigue R53.83 Well adult Z00.00 Infection of nail bed of toe of right fo ot L03.031 Meniere disease H81.09 Palpitations R00.2 Peripheral vertigo H81.399 Eczema L30.9 Acute bronchitis J20.9 Menorrhagia N92.0 Contusion of right elbow, initial encoun ter S50.01XA Strain of muscle, fascia and tendon at n rukhsana level, initial encounter S16.1XXA Anemia, iron deficiency D50.9 Duodenitis K29.80 Hiatal hernia K44.9 Aphthous ulcer K12.0 Seasonal allergic rhinitis J30.2 Infectious mononucleosis wit hout complication, infectious mononucleosis due to unspecified organism B27.90 MRSA (methicillin resistant Staphylococc us aureus) A49.02 Irritable bowel syndrome (IBS) K58.9 Migraine G43.909 Viral hepatitis, unspecified chronicity, unspecified viral hepatitis type B19.9 Anxiety F41.9 Generalized headache R51.9 Gastro-esophageal reflux disease K21.9 Allergic rhinitis J30.9 Near syncope R55 Irregular intermenstrual bleeding N92.1 Ovarian cyst N83.209 Panic attack F41.0 Surgical History Surgery Date(Month/Year) Gallbladder D&C Tonsils
--- OUTSIDE RECORDS SUMMARY | 2024-09-20 07:23 | XMS_ITS | Encounter Summary ---
Author Organization [facility] Address [address] [place] [address] Care Team Providers Care Window Glazier Name Role Phone Estiven Porter MD Primary Care Provider [phone] Encounter Details Date Type Department Care Team (Late st Contact Info) Description 09/15/2022 Orders Only [facility] [address] [place] [address] Deepti Palacios LPN Social History Tobacco Use Types Packs/Day Years [...] on file documented as of this encounter Visit Diagnoses Not on filedocumented in this encounter Care Teams Window Glazier Relationship Specialty Start Date End Date Estiven Porter MD PCP - General 09/13/22 documented as of this encounter
--- OUTSIDE RECORDS SUMMARY | 2024-09-20 07:23 | XMS_ITS | CCD ---
Author Organization [facility] Care Team Providers Care 911 Dispatcher Name Role Phone HOY ., DR LOPEZ Attending Unavailable HOY [...] Henley Consulting Unavailable YOCASTA ., DR WILSON Admchao Unavailable YOCASTA ., DR WILSON Attending Unavailable [...] Unavailable YOCASTA ., DR WILSON Attending Unavailable ERIE, DR ELLYN Dougherty Consulting Unavailable HOY ., [...] HOY ., DR LOPEZ Primary Care Unavailable GERMAN ., DR LOPEZ Admitting Unavailable LINDA RHODES Consulting Unavailable German, John Primary Care Physician [phone] VALE HI Attending Unavailable RALF RENDON Referring Unavailable YOCASTA, KATIE Attending Unavailable YOCASTA, KATIE Attending Unavailable YOCASTA, KATIE Attending Unavailable RADHA TINSLEY Attending Unavailable YOCASTA, KATIE Attending Unavailable MD John Porter Primary Care Provider [phone] Katie Rust Attending Provider [phone] Bessie Gong Attending Unavailable Hoy, John M Primary Care Unavailable Yocasta, Katie Attending Unavailable Yocasta, Katie Admitting Unavailable John Porter MD Primary Care Provider [phone] IRIS GABRIEL Attending Unavailable HOY, JOHN M [...] Unavailable HOY, JOHN M Primary Care Unavailable John Porter MD Primary Care Provider [phone] Allergies Allergy Classification Reported Allergen(s) Allergy Type Date of Onset Reaction(s) Facility (1 source) Azithromycin Drug Allergy 12-21-19 22 [facility] (4 sources) Imipramine; Translations: [IMIPRAMINE] Drug Allergy 10-06-19 13 hallucinations [facility] (2 sources) Sulfonamides (Antibiotic) Drug allergy (disorder) 10-06-19 13 [facility] (2 sources) E.E[facility]S. Drug allergy (disorder) 10-06-19 13 [facility] (18 sources) Erythromycin; Translations: [erythromycin] Drug Allergy 02-25-20 16 Unknown (qualifier value), Other [facility] (17 sources) Imipramine; Translations: [imipramine] Drug Allergy 02-25-20 16 Unknown (qualifier value), Other [facility] (2 sources) Sulfonamides (Antibiotic); Translations: [sulfa drugs] Drug allergy Unknown (qualifier value) [facility] (4 sources) Sulfonamides (Antibiotic); Translations: [Sulfa (Sulfonamide Antibiotics)] Allergy to substance 09-12-[address] [facility] (16 sources) erythromycin base; Translations: [erythromycin base] Allergy to substance 12-02-[address] [facility] (1 source) Imipramine Drug Allergy 12-02-19 [facility] (14 sources) Sulfonamides (Antibiotic) Drug Intolerance 02-25-20 16 [facility] (3 sources) Ciprofloxacin Drug Allergy 01-20-20 [facility] Healthcare Medications Current Medications Medication Drug [...] elsewhere] Onset: 7 10-28-2022 Chronic Mood disorders (17 sources) Depressive disorder; Translations: [Moderate major depression, [...] 01-03-2024 Episodic Other aftercare (4 sources) [facility] [place] drug therapy; Translations: [OTH LONGTERM CURRENT DRUG THERAPY] Onset: 12-23-2021 Episodic Other [...] MM TOMOSYNTHESIS SCREENING B Ion 05-30-2024 [place] [address] Mammography Report Signed Patient: YULIA DORSEY MR#: [id number] : 1965 Acct:[id number] Age/Sex: 58 / F ADM Date: 05/30/24 Loc: MAMMO Attending Dr: Katie Rust D.O. Ordering Physician: Katie Rust D.O. Results: Date of Service: 05/30/24 Follow Up: Procedure(s): MM tomosynthesis screening BI Accession Number(s): [id number] cc: Katie Rust D.O.; John Porter M.D. Patient Name: YULIA DORSEY MR#: [id number] : 1965 Exam Date: 05/30/2024 Ordering Doctor: [...] breast cancer at age 40. LOCATION: [facility] BREAST COMPOSITION: The breasts are almost [...] PALPABLE LUMP SHOULD BE BIOPSIED. Dictated by: aGbo Strong M.D. on 05/30/2024 at 16:32 Approved by: Gabo Strong M.D. on 05/30/2024 at 16:34 Dictated By: Gabo Strong M.D. Signed By: 05/30/24 1635 DD/ 1634 TD/TT: Research Worker Encyclopedia: [facility] Radiology, Radiologist, MD - 05/30/2024 [place] [address] Mammography Report Signed Patient: YULIA DORSEY MR#: [id number] : 1965 Acct:[id number] Age/Sex: 58 / F ADM Date: 05/30/24 Loc: MAMMO Attending Dr: Katie Rust D.O. Ordering Physician: Katie Rust D.O. Results: Date of Service: 05/30/24 Follow Up: Procedure(s): MM tomosynthesis screening BI Accession Number(s): [id number] cc: Katie Rust D.O.; John Porter M.D. Patient Name: YULIA DORSEY MR#: [id number] : 1965 Exam Date: 05/30/2024 Ordering Doctor: [...] breast cancer at age 40. LOCATION: [facility] BREAST COMPOSITION: The breasts are almost [...] M.D. Signed By: 05/30/241634 DD/ 33 TD/TT: Research Worker Encyclopedia: [facility] Radiology Study observation (narrative) [facility] MM TOMOSYNTHESIS SCREENING B IOrdered By: Radiologist Radiology on 05-30-2024 [facility] Work Phone: ALL CBC WITH AUTO DIFFon BASOPHILS ABSOLUTE AUTO 0.0 [facility] Basophils/100 WBC (Bld) 0.8 % 0.2 - 2.0 % [facility] Eosinophils/100 WBC (Bld) 1.9 % 0.9 - 7.0 % [facility] Erythrocyte distribution width (RBC) [Ratio] 13.4 % 11.0 - 15.0 % [facility] Hematocrit (Bld) [Volume fraction] 43.1 % 36.0 - 48.0 % [facility] Hemoglobin (Bld) [Mass/Vol] 13.9 g/dL 12.0 - 16.0 g/dL [facility] IMMATURE GRANULOCYTES ABS AUTO 0.01 [facility] Immature granulocytes/100 WBC (Bld) 0.2 % 0.0 - 0.5 % [facility] LYMPHOCYTES ABSOLUTE AUTO 1.7 [facility] Lymphocytes/100 WBC (Bld) 32.9 % 20.5 - 60.0 % [facility] MCH (RBC) [Entitic mass] 28.8 pg 26.7 - 34.0 pg [facility] MCHC (RBC) [Mass/Vol] 32.3 g/dL 29.9 - 35.2 g/dL [facility] MCV (RBC) [Entitic vol] 89.2 fL 81.0 - 99.0 fL [facility] MONOCYTES ABSOLUTE AUTO 0.5 [facility] Monocytes/100 WBC (Bld) 9.6 % 1.7 - 12.0 % [facility] NEUTROPHILS ABSOLUTE AUTO 2.8 [facility] Neutrophils/100 WBC (Bld) 54.6 % 43.0 - 75.0 % [facility] Platelet mean volume (Bld) [Entitic vol] 9.7 fL 9.5 - 13.5 fL [facility] EO # 0.1 [facility] PLT 291 [facility] RBC 4.83 [facility] WBC 5.1 [facility] [place] 01-07-2024 L Specimen: [id number] Received: 01/07/24 Status: LAWSON Guzman Num: [id number] Spec Type: Surgical Subm Dr: Katie Rust Tissues: A Endometrial Polyp (ENOMETRIAL POLYP AND CURETTI) Procedures: HE/2, Gross/Micro L4 Age/ Patient Sex Location Account Attending Physician Yulia Dorsey 58/F LABELL [id number] Katie Rust SPEC NUM: [id number] RECD: 01/07/24 STATUS: LAWSON GUZMAN NUM: [id number] TIMOTHY: 01/07/[address]: Katie Rust ENTERED: 01/07/[address] [facility] [address]: Cristhian,Lab SPEC TYPE: Surgical DEPT: BIANCA VANN ENTERED BY: [id number] RECV BY: [id number] ORDERED: HE/2, Gross/Micro L4 ORDERED: HE/2, Gross/Micro [...] is entirely submitted cassette A1. CPT Codes 46492 -------- -------- Specimen: [id number] Received: 01/07/24 Status: LAWSON Guzman Num: [id number] Spec Type: Surgical Subm Dr: Katie Rust Tissues: A Endometrial Polyp (ENOMETRIAL POLYP AND CURETTI) Procedures: HE/2, Gross/Micro L4 -------- Patient: Yulia Dorsey [id number] (Continued) -------- Signed (signature on file) Tammie Mcclellan MD 01/13/24 1606 Normal [facility] Patient Letter FTMCon 2023 Patient Letter [facility] Patient Letter [facility] January 07, 2024 YULIA DORSEY [address] [place] [address] : 1965 Dear Yulia Dorsey, We have been trying to reach you with no success. It is important that you return our call upon receiving this letter. Also, at the time of your call, please provide us with your current information. Thank you for your prompt attention to this matter. Sincerely, [facility] [address] [place] [address] [facility] Ambulatory Visit Summaryon 0 12-30-2023 Ambulatory Visit Summary Ambulatory Visit Summary YULIA DORSEY :1965 Visit Date:12/30/2023 Ambulatory Visit Instructions Your Diagnosis Unspecified urethral stricture, female Your Care Team Attending Physician - Fardieh BARRERA, Bessie Modi Primary Care Physician - [...] you for choosing us for your care. [facility] Provider Letteron 12-30-2023 Provider Letter Provider Letter December 30, 2023 [place] [address] : 1965 To Whom It May Concern, Please excuse above patient from work. 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 Kidney stones (N20.0: Calculus of kidney) [...] now. -K (more content not included)... Normal [facility] Comment on above: Result Comment: Elec tronically Signed By: Farideh BARRERA, Bessie Modi\.br\Date and Time Signed: 12/30/23 15:22 EDT URETHRITIS/DISCHARGE PLUS VA GINITIS (HTRX)on 12-22-2023 ATOPOBIUM VAGINAE 0.000 [facility] ATOPOBIUM VAGINAE Not detected [facility] BVAB 2,3 (BACTERIAL VAGINOSIS ASSOCIATED BACTERIA 2, 3); MOBILUNCUS SPP 0.000 [facility] Healthcare BVAB 2,3 (BACTERIAL VAGINOSIS ASSOCIATED [...] 0.000 [facility] TRICHOMONAS VAGINALIS Not detected [facility] MG MAMM DX 3D RT CADon 09-22 MG MAMM DX 3D RT CAD Patient: YULIA DORSEY. Exam Date: 09/22/2022 : 1965 Gender:F Ordering : DR KATIE RUST . Admission #: [id number] Family : Order #: [id number] CLICK HERE TO VIEW EXAM RADIOLOGY REPORT [...] breast cancer at age 40. LOCATION: [facility] BREAST COMPOSITION: Almost entirely fatty. FINDINGS: [...] MD on 09/22/2022 at 15:03 Normal [facility] US BREAST RIGHT LIMITEDon US BREAST RIGHT LIMITED Patient: YULIA DORSEY. Exam Date: 09/22/2022 : 1965 Gender:F Ordering : DR KATIE RUST . Admission #: [id number] Family : Order #: [id number] CLICK HERE TO VIEW EXAM RADIOLOGY REPORT [...] breast cancer at age 40. LOCATION: [facility] BREAST COMPOSITION: Almost entirely fatty. FINDINGS: [...] Castaneda MD on 09/22/2022 at 15:03 Normal [facility] US ST HEAD_NECKon 08-31-2022 US [...] by: GABO STRONG Date: 2022-08-31 08:09 Normal [facility] US PELVIS AND TRANSVAGon US [...] GABO STRONG Date: 2022-07-29 06:32 Normal [facility] INSULINon 07-04-2022 Insulin 6.2 uIU/mL Normal 2.6-24.9 [facility] Comment on above: Performed By: #### H STROPN, CMP #### [facility] [address] [place] [address] Dr. Judd Andrade CBC AUTO DIFFon 07-03-2022 BASO # 0.0 103/ul Normal 0.0-0.1 [facility] Comment on above: Performed By: #### C BC #### [facility] [address] [place] [address] Dr. Judd Andrade Basophils/100 WBC (Bld) 1.1 % Normal 0.2-2.0 [facility] Comment on above: Performed By: #### C BC #### [facility] [address] [place] [address] Dr. Judd Andrade EO # 0.1 103/ul Normal 0.0-0.7 [facility] Comment on above: Performed By: #### C BC #### [facility] [address] [place] [address] Dr. Judd Andrade Eosinophils/100 WBC (Bld) 3.6 % Normal 0.9-7.0 [facility] Comment on above: Performed By: #### C BC #### [facility] [address] [place] [address] Dr. Judd Andrade Erythrocyte distribution width (RBC) [Ratio] 13.6 % Normal 11.0-15.0 [facility] Comment on above: Performed By: #### C BC #### [facility] [address] [place] [address] Dr. Judd Andrade Hematocrit (Bld) [Volume fraction] 41.8 % Normal 36.0-48.0 [facility] Comment on above: Performed By: #### C BC #### [facility] [address] [place] [address] Dr. Judd Andrade Hemoglobin (Bld) [Mass/Vol] 13.5 g/dL Normal 12.0-16.0 [facility] Comment on above: Performed By: #### C BC #### [facility] [address] [place] [address] Dr. Judd Andrade IG # 0.01 10e3/ul Normal 0.00-0.03 [facility] Comment on above: Performed By: #### C BC #### [facility] [address] [place] [address] Dr. Judd Andrade IG % 0.3 % Normal 0.0-0.5 [facility] Comment on above: Performed By: #### C BC #### [facility] [address] [place] [address] Dr. Judd Andrade LYMPH # 1.4 103/ul Normal 1.2-3.8 [facility] Comment on above: Performed By: #### C BC #### [facility] [address] [place] [address] Dr. Judd Andrade Lymphocytes/100 WBC (Bld) 38.4 % Normal 20.5-60.0 [facility] Comment on above: Performed By: #### C BC #### [facility] [address] [place] [address] Dr. Judd Andrade MANUAL DIFF REQ NO Normal [facility] Comment on above: Performed By: #### C BC #### [facility] [address] [place] [address] Dr. Judd Andrade MCH (RBC) [Entitic mass] 28.2 pg Normal 26.7-34.0 [facility] Comment on above: Performed By: #### C BC #### [facility] [address] [address] [address] Judd Andrade MCHC (RBC) [Mass/Vol] 32.3 g/dL Normal 29.9-35.2 [facility] Comment on above: Performed By: #### C BC #### [facility] [address] [place] [address] Dr. Judd Andrade MCV (RBC) [Entitic vol] 87.4 fL Normal 81.0-99.0 [facility] Comment on above: Performed By: #### C BC #### [facility] [address] [place] [address] Dr. Judd Andrade MONO # 0.4 103/ul Normal 0.3-0.8 [facility] Comment on above: Performed By: #### C BC #### [facility] [address] [place] [address] Dr. Judd Andrade Monocytes/100 WBC (Bld) 10.4 % Normal 1.7-12.0 [facility] Comment on above: Performed By: #### C BC #### [facility] [address] [place] [address] Dr. Judd Andrade NEUT # 1.7 103/ul Normal 1.4-6.5 [facility] Comment on above: Performed By: #### C BC #### [facility] [address] [place] [address] Dr. Judd Andrade Neutrophils/100 WBC (Bld) 46.2 % Normal 43.0-75.0 [facility] Comment on above: Performed By: #### C BC #### [facility] [address] [place] [address] Dr. Judd Andraed Platelet mean volume (Bld) [Entitic vol] 9.6 fL Normal 9.5-13.5 [facility] Comment on above: Performed By: #### C BC #### [facility] [address] [place] [address] Dr. Judd Andrade PLT 246 103/ul Normal 150-450 [facility] Comment on above: Performed By: #### C BC #### [facility] [address] [place] [address] Dr. Judd Andrade RBC 4.78 106/ul Normal 4.20-5.40 [facility] Comment on above: Performed By: #### C BC #### [facility] [address] [address] [address] Judd Andrade WBC 3.7 103/ul Critically low 4.0-11.0 [facility] Comment on above: Performed By: #### C BC #### [facility] [address] [place] [address] Dr. Judd Andrade FREE THYROXINE INDEX T7on FTI 3.20 Normal 1.30-4.50 [facility] Comment on above: Performed By: #### T 7, LIPID, TSH, CMP #### [facility] [address] [place] [address] Dr. Judd Andrade T3U 36.0 % Normal 30.0-39.0 [facility] Comment on above: Performed By: #### T 7, LIPID, TSH, CMP #### [facility] [address] [place] [address] Dr. Judd Andrade T4 [Mass/Vol] 8.90 ug/dL Normal 4.80-13.90 [facility] Comment on above: Performed By: #### T 7, LIPID, TSH, CMP #### [facility] [address] [place] [address] Dr. Judd Andrade GLYCOHEMOGLOBIN A1Con 2022 ADA RECOMMENDATION SEE BELOW Normal [facility] Comment on above: Result Comment: ADA RECOMMENDED LIMIT 4.0 - 6.0 ADA THERAPEUTIC TARGET < 7.0 ACTION SUGGESTED > 7.0 Performed By: #### C BC #### [facility] [address] [place] [address] Dr. Judd Andrade Glucose [Mass/Vol] 120 mg/dL Normal [facility] Comment on above: Performed By: #### C BC #### [facility] [address] [place] [address] Dr. Judd Andrade HbA1c (Bld) [Mass fraction] 5.8 % Normal 4.5-6.2 [facility] Comment on above: Performed By: #### C BC #### [facility] [address] [place] [address] Dr. Judd Andrade IRONon 07-03-2022 Iron [Mass/Vol] 67.0 ug/dL Normal 50.0-170.0 [facility] Comment on above: Performed By: #### V ITAD, IRON #### [facility] [address] [address] [address] Judd Andrade LIPID PROFILEon 07-03-2022 CHOL-HDL RATIO NORM SEE BELOW Normal [facility] Comment on above: Result Comment: 3.3 - 4.4 LOW RISK 4.4 - 7.1 AVERAGE RISK 7.1 - 11.0 MODERATE RISK >11.0 HIGH RISK Performed By: #### T 7, LIPID, TSH, CMP #### [facility] [address] [address] [address] Judd Andrade Cholesterol [Mass/Vol] 216 mg/dL Critically high <=200 [facility] Comment on above: Performed By: #### T 7, LIPID, TSH, CMP #### [facility] [address] [address] [address] Judd Andrade Cholesterol in HDL [Mass/Vol] 87 mg/dL Critically high 40-60 [facility] Comment on above: Performed By: #### T 7, LIPID, TSH, CMP #### [facility] [address] [address] [address] Judd Andrade Cholesterol in LDL [Mass/Vol] 124.2 mg/dL Normal [facility] Comment on above: Performed By: #### T 7, LIPID, TSH, CMP #### [facility] [address] [address] [address] Judd Andrade Cholesterol.total/C holesterol in HDL [Mass ratio] 2.5 {ratio} Normal [facility] Comment on above: Performed By: #### T 7, LIPID, TSH, CMP #### [facility] [address] [address] [address] Judd Andrade HDL NORMAL > or = 60 mg/dl - LO W CARDIOVASCULAR RISK <40 mg/dl - HIGH CARDIOVASCULAR RISK Normal [facility] Comment on above: Performed By: #### T 7, LIPID, TSH, CMP #### [facility] [address] [address] [address] Judd Andrade LDL CALC NORMAL SEE BELOW Normal [facility] Comment on above: Result Comment: <100 mg/dl OPTIMAL 100 - 129 mg/dl NEAR OR ABOVE OPTIMAL 130 - 159 mg/dl BORDERLINE HIGH 160 - 189 mg/dl HIGH >190 mg/dl VERY HIGH Performed By: #### T 7, LIPID, TSH, CMP #### [facility] [address] [address] [address] Judd Andrade Triglyceride [Mass/Vol] 24 mg/dL Normal <=150 [facility] Comment on above: Performed By: #### T 7, LIPID, TSH, CMP #### [facility] [address] [place] [address] Dr. Judd Andrade VLDL CALC 4.8 mg/dL Normal [facility] Comment on above: Performed By: #### T 7, LIPID, TSH, CMP #### [facility] [address] [place] [address] Dr. Judd Andrade PROF 14(COMP METB)on 023 Albumin [Mass/Vol] 4.0 g/dL Normal 3.4-5.0 [facility] Comment on above: Performed By: #### T 7, LIPID, TSH, CMP #### [facility] [address] [address] [address] Judd Andrade Albumin/Globulin [Mass ratio] 1.1 {ratio} Normal [facility] Comment on above: Performed By: #### T 7, LIPID, TSH, CMP #### [facility] [address] [place] [address] Dr. Judd Andrade ALP [Catalytic activity/Vol] 78 U/L Normal 46-116 [facility] Comment on above: Performed By: #### T 7, LIPID, TSH, CMP #### [facility] [address] [place] [address] Dr. Judd Andrade ALT [Catalytic activity/Vol] 29 U/L Normal 14-59 [facility] Comment on above: Performed By: #### T 7, LIPID, TSH, CMP #### [facility] [address] [address] [address] Judd Andrade Anion gap [Moles/Vol] 5.6 mmol/L Normal [facility] Comment on above: Performed By: #### T 7, LIPID, TSH, CMP #### [facility] [address] [address] [address] Judd Andrade AST [Catalytic activity/Vol] 23 U/L Normal 15-37 [facility] Comment on above: Performed By: #### T 7, LIPID, TSH, CMP #### [facility] [address] [address] [address] Judd Andrade Bilirubin [Mass/Vol] 0.5 mg/dL Normal 0.2-1.0 [facility] Comment on above: Performed By: #### T 7, LIPID, TSH, CMP #### [facility] [address] [address] [address] Judd Andrade Calcium [Mass/Vol] 8.9 mg/dL Normal 8.5-10.1 [facility] Comment on above: Performed By: #### T 7, LIPID, TSH, CMP #### [facility] [address] [address] [address] Judd Andrade Chloride [Moles/Vol] 105 mmol/L Normal 98-107 [facility] Comment on above: Performed By: #### T 7, LIPID, TSH, CMP #### [facility] [address] [address] [address] Judd Andrade CO2 [Moles/Vol] 32.0 mmol/L Normal 21.0-32.0 [facility] Comment on above: Performed By: #### T 7, LIPID, TSH, CMP #### [facility] [address] [place] [address] Dr. Judd Andrade Creatinine [Mass/Vol] 0.52 mg/dL Critically low 0.55-1.02 [facility] Comment on above: Performed By: #### T 7, LIPID, TSH, CMP #### [facility] [address] [address] [address] Judd Andrade EGFR-AF CITIZEN [place] >60 Normal >=60 [facility] Comment on above: Performed By: #### T 7, LIPID, TSH, CMP #### [facility] [address] [address] [address] Judd Andrade EGFR-NON AF CITIZEN OF [place] >60 Normal >=60 [facility] Comment on above: Performed By: #### T 7, LIPID, TSH, CMP #### [facility] [address] [address] [address] Judd Andrade Globulin (S) [Mass/Vol] 3.6 g/dL Normal [facility] Comment on above: Performed By: #### T 7, LIPID, TSH, CMP #### [facility] [address] [place] [address] Dr. Judd Andrade Glucose [Mass/Vol] 89 mg/dL Normal 74-106 [facility] Comment on above: Performed By: #### T 7, LIPID, TSH, CMP #### [facility] [address] [address] [address] Judd Andrade Potassium [Moles/Vol] 4.2 mmol/L Normal 3.5-5.1 [facility] Comment on above: Performed By: #### T 7, LIPID, TSH, CMP #### [facility] [address] [address] [address] Judd Andrade Protein [Mass/Vol] 7.6 g/dL Normal 6.4-8.2 [facility] Comment on above: Performed By: #### T 7, LIPID, TSH, CMP #### [facility] [address] [address] [address] Judd Andrade Sodium [Moles/Vol] 139 mmol/L Normal 136-145 [facility] Comment on above: Performed By: #### T 7, LIPID, TSH, CMP #### [facility] [address] [address] [address] Judd Andrade Urea nitrogen [Mass/Vol] 11.0 mg/dL Normal 7.0-18.0 [facility] Comment on above: Performed By: #### T 7, LIPID, TSH, CMP #### [facility] [address] [place] [address] Dr. Judd Andrade Urea nitrogen/Creatinine [Mass ratio] 21.2 mg/mg Normal [facility] Comment on above: Performed By: #### T 7, LIPID, TSH, CMP #### [facility] [address] [place] [address] Dr. Judd Andrade TSHon 07-03-2022 TSH 1.037 uIU/mL Normal 0.358-3.740 [facility] Comment on above: Performed By: #### T 7, LIPID, TSH, CMP #### [facility] [address] [place] [address] Dr. Judd Andrade VITAMIN D 25 OHon 07-03-2022 VIT D 25-OH 32.8 ng/mL Normal [facility] [facility] Comment on above: Performed By: #### V CARMELO, IRON #### [facility] [address] [place] [address] Dr. Judd Andrade VIT D RANGES SEE BELOW Normal [facility] Comment on above: Result Comment: <20 ng/mL Vit D deficient 20 - <30 ng/mL Vit D insufficient 30 - 100 ng/mL Vit D sufficient >100 ng/mL Potential Toxicity Performed By: #### V CARMELO, IRON #### [facility] [address] [place] [address] Dr. Judd Andrade BORDETELLA PERTUSSIS AB IGGo n 06-30-2022 B pertussis IgG Ab 3.88 index Invalid Interpretation Code 0.00-0.94 [facility] Comment on above: Result Comment: Clie nt Requested Flag Negative <0.95 Equivocal 0.95 - 1.04 Positive >1.04 Performed By: #### C BC #### [facility] [address] [place] [address] Dr. Judd Andrade BORDETELLA PERTUSSIS AB IGMo n 06-30-2022 B pertussis IgM Ab <1.0 Normal 0.0-0.9 [facility] Comment on above: Result Comment: Nega tive <1.0 Borderline 1.0 - 1.1 Positive >1.1 Performed By: #### H STROPN, CMP #### [facility] [address] [place] [address] Dr. Judd Andrade [id number] 2022 [id number] , Serum 158 mg/dL Normal 101-187 [facility] Comment on above: Performed By: #### C BC #### [facility] [address] [place] [address] Dr. Judd Andrade CBC AUTO DIFFon 06-03-2022 BASO # 0.0 103/ul Normal 0.0-0.1 [facility] Comment on above: Performed By: #### H STROPN, CMP #### [facility] [address] [place] [address] Dr. Judd Andrade Basophils/100 WBC (Bld) 0.6 % Normal 0.2-2.0 [facility] Comment on above: Performed By: #### H STROPN, CMP #### [facility] [address] [place] [address] Dr. Judd Andrade EO # 0.0 103/ul Normal 0.0-0.7 [facility] Comment on above: Performed By: #### H STROPN, CMP #### [facility] [address] [place] [address] Dr. Judd Andrade Eosinophils/100 WBC (Bld) 0.6 % Critically low 0.9-7.0 [facility] Comment on above: Performed By: #### H STROPN, CMP #### [facility] [address] [place] [address] Dr. Judd Andrade Erythrocyte distribution width (RBC) [Ratio] 13.5 % Normal 11.0-15.0 [facility] Comment on above: Performed By: #### H STROPN, CMP #### [facility] [address] [place] [address] Dr. Judd Andrade Hematocrit (Bld) [Volume fraction] 42.4 % Normal 36.0-48.0 [facility] Comment on above: Performed By: #### H STROPN, CMP #### [facility] [address] [address] [address] Judd Andrade Hemoglobin (Bld) [Mass/Vol] 13.4 g/dL Normal 12.0-16.0 [facility] Comment on above: Performed By: #### H STROPN, CMP #### [facility] [address] [address] [address] Judd Andrade IG # 0.01 10e3/ul Normal 0.00-0.03 [facility] Comment on above: Performed By: #### H STROPN, CMP #### [facility] [address] [address] [address] Judd Andrade IG % 0.2 % Normal 0.0-0.5 [facility] Comment on above: Performed By: #### H STROPN, CMP #### [facility] [address] [place] [address] Dr. Judd Andrade LYMPH # 1.1 103/ul Critically low 1.2-3.8 [facility] Comment on above: Performed By: #### H STROPN, CMP #### [facility] [address] [address] [address] Judd Andrade Lymphocytes/100 WBC (Bld) 23.5 % Normal 20.5-60.0 [facility] Comment on above: Performed By: #### H STROPN, CMP #### [facility] [address] [place] [address] Dr. Judd Andrade MANUAL DIFF REQ NO Normal [facility] Comment on above: Performed By: #### H STROPN, CMP #### [facility] [address] [address] [address] uJdd Andrade MCH (RBC) [Entitic mass] 28.9 pg Normal 26.7-34.0 [facility] Comment on above: Performed By: #### H STROPN, CMP #### [facility] [address] [place] [address] Dr. Judd Andrade MCHC (RBC) [Mass/Vol] 31.6 g/dL Normal 29.9-35.2 [facility] Comment on above: Performed By: #### H STROPN, CMP #### [facility] [address] [place] [address] Dr. Judd Andrade MCV (RBC) [Entitic vol] 91.6 fL Normal 81.0-99.0 [facility] Comment on above: Performed By: #### H STROPN, CMP #### [facility] [address] [place] [address] Dr. Judd Andrade MONO # 0.8 103/ul Normal 0.3-0.8 [facility] Comment on above: Performed By: #### H STROPN, CMP #### [facility] [address] [place] [address] Dr. Judd Andrade Monocytes/100 WBC (Bld) 16.5 % Critically high 1.7-12.0 [facility] Comment on above: Performed By: #### H STROPN, CMP #### [facility] [address] [place] [address] Dr. Judd Andrade NEUT # 2.7 103/ul Normal 1.4-6.5 [facility] Comment on above: Performed By: #### H STROPN, CMP #### [facility] [address] [place] [address] Dr. Judd Andrade Neutrophils/100 WBC (Bld) 58.6 % Normal 43.0-75.0 [facility] Comment on above: Performed By: #### H STROPN, CMP #### [facility] [address] [place] [address] Dr. Judd Andrade Platelet mean volume (Bld) [Entitic vol] 9.8 fL Normal 9.5-13.5 [facility] Comment on above: Performed By: #### H STROPN, CMP #### [facility] [address] [place] [address] Dr. Judd Andrade PLT 252 103/ul Normal 150-450 [facility] Comment on above: Performed By: #### H STROPN, CMP #### [facility] [address] [place] [address] Dr. Judd Andrade RBC 4.63 106/ul Normal 4.20-5.40 [facility] Comment on above: Performed By: #### H DEB, CMP #### [facility] [address] [place] [address] Dr. Judd Andrade WBC 4.7 103/ul Normal 4.0-11.0 [facility] Comment on above: Performed By: #### H TERAPN, CMP #### [facility] [address] [place] [address] Dr. Judd Andrade PROF 14(COMP METB)on 023 Albumin [Mass/Vol] 4.0 g/dL Normal 3.4-5.0 [facility] Comment on above: Performed By: #### H DEB, CMP #### [facility] [address] [place] [address] Dr. Judd Andrade Albumin/Globulin [Mass ratio] 1.0 {ratio} Normal [facility] Comment on above: Performed By: #### H DEB, CMP #### [facility] [address] [place] [address] Dr. Judd Andrade ALP [Catalytic activity/Vol] 77 U/L Normal 46-116 [facility] Comment on above: Performed By: #### H DEB, CMP #### [facility] [address] [place] [address] Dr. Judd Andrade ALT [Catalytic activity/Vol] 33 U/L Normal 14-59 [facility] Comment on above: Performed By: #### H TERAPN, CMP #### [facility] [address] [place] [address] Dr. Judd Andrade Anion gap [Moles/Vol] 8.0 mmol/L Normal [facility] Comment on above: Performed By: #### H TERAPN, CMP #### [facility] [address] [place] [address] Dr. Judd Andrade AST [Catalytic activity/Vol] 28 U/L Normal 15-37 [facility] Comment on above: Performed By: #### H TERAPN, CMP #### [facility] [address] [place] [address] Dr. Judd Andrade Bilirubin [Mass/Vol] 0.6 mg/dL Normal 0.2-1.0 [facility] Comment on above: Performed By: #### H STROPN, CMP #### [facility] [address] [place] [address] Dr. Judd Andrade Calcium [Mass/Vol] 9.3 mg/dL Normal 8.5-10.1 [facility] Comment on above: Performed By: #### H STROPN, CMP #### [facility] [address] [place] [address] Dr. Judd Andrade Chloride [Moles/Vol] 103 mmol/L Normal 98-107 [facility] Comment on above: Performed By: #### H STROPN, CMP #### [facility] [address] [place] [address] Dr. Judd Andrade CO2 [Moles/Vol] 33.6 mmol/L Critically high 21.0-32.0 [facility] Comment on above: Performed By: #### H STROPN, CMP #### [facility] [address] [place] [address] Dr. Judd Andrade Creatinine [Mass/Vol] 0.59 mg/dL Normal 0.55-1.02 [facility] Comment on above: Performed By: #### H STROPN, CMP #### [facility] [address] [place] [address] Dr. Judd Andrade EGFR-AF CITIZ[place] >60 Normal >=60 [facility] Comment on above: Performed By: #### H STROPN, CMP #### [facility] [address] [place] [address] Dr. Judd Andrade EGFR-NON AF CITIZEN OF [place] >60 Normal >=60 [facility] Comment on above: Performed By: #### H STROPN, CMP #### [facility] [address] [place] [address] Dr. Judd Andrade Globulin (S) [Mass/Vol] 4.0 g/dL Normal [facility] Comment on above: Performed By: #### H STROPN, CMP #### [facility] [address] [place] [address] Dr. Judd Andrade Glucose [Mass/Vol] 130 mg/dL Critically high 74-106 T [facility] Comment on above: Performed By: #### H DEB, CMP #### [facility] [address] [address] [address] Judd Andrade Potassium [Moles/Vol] 3.6 mmol/L Normal 3.5-5.1 [facility] Comment on above: Performed By: #### H TERAPN, CMP #### [facility] [address] [address] [address] Judd Andrade Protein [Mass/Vol] 8.0 g/dL Normal 6.4-8.2 [facility] Comment on above: Performed By: #### H DEB, CMP #### [facility] [address] [address] [address] Judd Andrade Sodium [Moles/Vol] 141 mmol/L Normal 136-145 [facility] Comment on above: Performed By: #### H DEB, CMP #### [facility] [address] [address] [address] Judd Andrade Urea nitrogen [Mass/Vol] 8.0 mg/dL Normal 7.0-18.0 [facility] Comment on above: Performed By: #### H DEB, CMP #### [facility] [address] [place] [address] Dr. Judd Andrade Urea nitrogen/Creatinine [Mass ratio] 13.6 mg/mg Normal [facility] Comment on above: Performed By: #### H DEB, CMP #### [facility] [address] [address] [address] Judd Andrade TROPONIN, HIGH SENSITIVITYon 06-03-2022 HSTROP <4.0 Normal 4.0-51.3 [facility] Comment on above: Result Comment: CUT- OFF POINTS HAVE BEEN ESTABLISHED BASED ON THE FOURTH UNIVERSAL DEFINITIONS OF MYOCARDIAL INFARCTION. THE UPPER REFERENCE LIMIT (URL) OF TROPONIN, DEFINED THE 99TH PERCENTILE OF cTnI DISTRIBUTION IN A REFERENCE POPULATION, HAS BEEN CONFIRMED THE DECISION THRESHOLD FOR NM DIAGNOSIS. Performed By: #### H DEB, CMP #### [facility] [address] [address] [address] Judd Andrade XR CHEST 2 Von [...] LINDA RHODES Date: 2022-06-03 12:15 Normal [facility]on SARS-CoV-2 (COVID-19) RNA JOLLY+probe Ql (Unsp spec) Not detected Normal NOT DETECTED [facility] Comment on above: Result Comment: This test is not yet approved or cleared by the [place] FDA. When there are no FDA-approved or cleared tests available, and other criteria are met, FDA can make tests available under an emergency access mechanism called an Emergency Use Authorization (EUA). The EUA for this test is supported by the [place] of Health and Human Service's (HHS's) declaration [...] Performed By: #### H DEB, CMP #### [facility] [address] [place] [address] Dr. Judd Andrade INFLUENZA A AND B AGon 06-02 INFLUANEGH SEE BELOW Normal [facility] Comment on above: Result Comment: Nega tive for Flu A protein angiten. Infection due to Flu A cannot be ruled out. Flu A angiten in the sample may be below the detection limit of the test. Performed By: #### H STROPN, CMP #### [facility] [address] [address] [address] Judd Andrade [facility] SEE BELOW Normal [facility] Comment on above: Result Comment: Nega tive for Flu B protein antigen. Infection due to Flu B cannot be ruled out. Flu B antigen in the sample may be below the detection limit of the test. Performed By: #### H STROPN, CMP #### [facility] [address] [address] [address] Judd Andrade INFLUENZA A AG Negative Normal NEGATIVE SEE COMMENT [facility] Comment on above: Performed By: #### H STROPN, CMP #### [facility] [address] [address] [address] Judd Andrade INFLUENZA B AG Negative Normal NEGATIVE SEE COMMENT [facility] Comment on above: Performed By: #### H TERAPN, CMP #### [facility] [address] [address] [address] Judd [address] US ST HEAD_NECKon 02-11-2022 [...] GABO STRONG Date: 2022-02-11 16:24 Normal [facility] MG MAMM SCREEN 3D SUSANA CADon 02-10-2022 MG MAMM SCREEN 3D SUSANA CAD Patient: YULIA DORSEY Exam Date: 02/10/2022 : 1965 Gender:F Ordering : DR JOHN PORTER . Admission #: [id number] Family : Order #: [id number] CLICK HERE TO VIEW EXAM RADIOLOGY REPORT [...] breast cancer at age 40. LOCATION: [facility] BREAST COMPOSITION: Almost entirely fatty. FINDINGS: [...] Strong M.D. on 02/11/2022 at 14:20 Normal [facility] XR CHEST 1 Von 01-15-2022 [...] KAREN VALDEZ Date: 2022-01-15 18:39 Normal [facility] CBC AUTO DIFFon 12-30-2021 BASO # 0.0 103/ul Normal 0.0-0.1 [facility] Comment on above: Performed By: #### C BC #### [facility] [address] [address] [address] Judd Andrade Basophils/100 WBC (Bld) 0.6 % Normal 0.2-2.0 [facility] Comment on above: Performed By: #### C BC #### [facility] [address] [place], [place] [address] Dr. Judd Andrade EO # 0.1 103/ul Normal 0.0-0.7 [facility] Comment on above: Performed By: #### C BC #### [facility] [address] [place] [address] Dr. Judd Andrade Eosinophils/100 WBC (Bld) 2.1 % Normal 0.9-7.0 [facility] Comment on above: Performed By: #### C BC #### [facility] [address] [place] [address] Dr. Judd Andrade Erythrocyte distribution width (RBC) [Ratio] 13.0 % Normal 11.0-15.0 [facility] Comment on above: Performed By: #### C BC #### [facility] [address] [place] [address] Dr. Judd Andrade Hematocrit (Bld) [Volume fraction] 41.9 % Normal 36.0-48.0 [facility] Comment on above: Performed By: #### C BC #### [facility] [address] [place] [address] Dr. Judd Andrade Hemoglobin (Bld) [Mass/Vol] 13.7 g/dL Normal 12.0-16.0 [facility] Comment on above: Performed By: #### C BC #### [facility] [address] [place] [address] Dr. Judd Andrade IG # 0.03 10e3/ul Normal 0.00-0.03 [facility] Comment on above: Performed By: #### C BC #### [facility] [address] [place] [address] Dr. Judd Andrade IG % 0.6 % Critically high 0.0-0.5 [facility] Comment on above: Performed By: #### C BC #### [facility] [address] [place] [address] Dr. Judd Andarde LYMPH # 1.9 103/ul Normal 1.2-3.8 [facility] Comment on above: Performed By: #### C BC #### [facility] [address] [place] [address] Dr. Judd Andrade Lymphocytes/100 WBC (Bld) 34.5 % Normal 20.5-60.0 [facility] Comment on above: Performed By: #### C BC #### [facility] [address] [place] [address] Dr. Judd Andrade MANUAL DIFF REQ NO Normal [facility] Comment on above: Performed By: #### C BC #### [facility] [address] [place] [address] Dr. Judd Andrade MCH (RBC) [Entitic mass] 28.5 pg Normal 26.7-34.0 [facility] Comment on above: Performed By: #### C BC #### [facility] [address] [place] [address] Dr. Judd Andrade MCHC (RBC) [Mass/Vol] 32.7 g/dL Normal 29.9-35.2 [facility] Comment on above: Performed By: #### C BC #### [facility] [address] [place] [address] Dr. Judd Andrade MCV (RBC) [Entitic vol] 87.1 fL Normal 81.0-99.0 [facility] Comment on above: Performed By: #### C BC #### [facility] [address] [place] [address] Dr. Judd Andrade MONO # 0.6 103/ul Normal 0.3-0.8 [facility] Comment on above: Performed By: #### C BC #### [facility] [address] [place] [address] Dr. Judd Andrade Monocytes/100 WBC (Bld) 10.4 % Normal 1.7-12.0 [facility] Comment on above: Performed By: #### C BC #### [facility] [address] [place] [address] Dr. Judd Andrade NEUT # 2.8 103/ul Normal 1.4-6.5 [facility] Comment on above: Performed By: #### C BC #### [facility] [address] [place] [address] Dr. Judd Andrade Neutrophils/100 WBC (Bld) 51.8 % Normal 43.0-75.0 [facility] Comment on above: Performed By: #### C BC #### [facility] [address] [address] [address] Judd Andrade Platelet mean volume (Bld) [Entitic vol] 10.5 fL Normal 9.5-13.5 [facility] Comment on above: Performed By: #### C BC #### [facility] [address] [address] [address] Judd Andrade PLT 270 103/ul Normal 150-450 [facility] Comment on above: Performed By: #### C BC #### [facility] [address] [place] [address] Dr. Judd Andrade RBC 4.81 106/ul Normal 4.20-5.40 [facility] Comment on above: Performed By: #### C BC #### [facility] [address] [place] [address] Dr. Judd Andrade WBC 5.4 103/ul Normal 4.0-11.0 [facility] Comment on above: Performed By: #### C BC #### [facility] [address] [place] [address] Dr. Judd Andrade CRPon 12-30-2021 CRP [Mass/Vol] mg/L Normal <=1.0 [facility] Comment on above: Performed By: #### C BC #### [facility] [address] [place] [address] Dr. Judd Andrade PROF 14(COMP METB)on 022 Albumin [Mass/Vol] 3.9 g/dL Normal 3.4-5.0 [facility] Comment on above: Performed By: #### C BC #### [facility] [address] [place] [address] Dr. Judd Andrade Albumin/Globulin [Mass ratio] 1.0 {ratio} Normal [facility] Comment on above: Performed By: #### C BC #### [facility] [address] [place] [address] Dr. Judd Andrade ALP [Catalytic activity/Vol] 64 U/L Normal 46-116 [facility] Comment on above: Performed By: #### C BC #### [facility] [address] [address] [address] Judd Andrade ALT [Catalytic activity/Vol] 50 U/L Normal 14-59 [facility] Comment on above: Performed By: #### C BC #### [facility] [address] [address] [address] Judd Andrade Anion gap [Moles/Vol] 11.1 mmol/L Normal [facility] Comment on above: Performed By: #### C BC #### [facility] [address] [address] [address] Judd Andrade AST [Catalytic activity/Vol] 28 U/L Normal 15-37 [facility] Comment on above: Performed By: #### C BC #### [facility] [address] [place] [address] Dr. Judd Andrade Bilirubin [Mass/Vol] 0.5 mg/dL Normal 0.2-1.0 [facility] Comment on above: Performed By: #### C BC #### [facility] [address] [place] [address] Dr. Judd Andrade Calcium [Mass/Vol] 8.9 mg/dL Normal 8.5-10.1 [facility] Comment on above: Performed By: #### C BC #### [facility] [address] [place] [address] Dr. Judd Andrade Chloride [Moles/Vol] 101 mmol/L Normal 98-107 [facility] Comment on above: Performed By: #### C BC #### [facility] [address] [place] [address] Dr. Judd Andrade CO2 [Moles/Vol] 29.4 mmol/L Normal 21.0-32.0 [facility] Comment on above: Performed By: #### C BC #### [facility] [address] [place] [address] Dr. Judd Andrade Creatinine [Mass/Vol] 0.73 mg/dL Normal 0.55-1.02 [facility] Comment on above: Performed By: #### C BC #### [facility] [address] [place] [address] Dr. Judd Andrade EGFR-AF CITIZEN OF [place] >60 Normal >=60 [facility] Comment on above: Performed By: #### C BC #### [facility] [address] [place] [address] Dr. Judd Andrade EGFR-NON AF CITIZEN OF [place] >60 Normal >=60 [facility] Comment on above: Performed By: #### C BC #### [facility] [address] [address] [address] Judd Andrade Globulin (S) [Mass/Vol] 3.8 g/dL Normal [facility] Comment on above: Performed By: #### C BC #### [facility] [address] [place] [address] Dr. Judd Andrade Glucose [Mass/Vol] 139 mg/dL Critically high 74-106 T [facility] Comment on above: Performed By: #### C BC #### [facility] [address] [place] [address] Dr. Judd Andrade Potassium [Moles/Vol] 3.5 mmol/L Normal 3.5-5.1 [facility] Comment on above: Performed By: #### C BC #### [facility] [address] [place] [address] Dr. Judd Andrade Protein [Mass/Vol] 7.7 g/dL Normal 6.4-8.2 [facility] Comment on above: Performed By: #### C BC #### [facility] [address] [place] [address] Dr. Judd Andrade Sodium [Moles/Vol] 138 mmol/L Normal 136-145 [facility] Comment on above: Performed By: #### C BC #### [facility] [address] [place] [address] Dr. Judd Andrade Urea nitrogen [Mass/Vol] 12.0 mg/dL Normal 7.0-18.0 [facility] Comment on above: Performed By: #### C BC #### [facility] [address] [place] [address] Dr. Judd Andrade Urea nitrogen/Creatinine [Mass ratio] 16.4 mg/mg Normal [facility] Comment on above: Performed By: #### C BC #### [facility] [address] [place] [address] Dr. Judd Andrade XR CHEST 2 Von [...] ARTEMIO DIXON Date: 2021-12-29 20:49 Normal [facility] TRYPTASEon 12-27-2021 Tryptase 4.5 ug/L Normal 2.2-13.2 [facility] Comment on above: Performed By: #### C BC #### [facility] [address] [place] [address] Dr. Judd Andrade CBC AUTO DIFFon 12-23-2021 BASO # 0.0 103/ul Normal 0.0-0.1 [facility] Comment on above: Performed By: #### H TERAPN, CMP #### [facility] [address] [place] [address] Dr. Judd Andrade Basophils/100 WBC (Bld) 0.7 % Normal 0.2-2.0 [facility] Comment on above: Performed By: #### H STROPN, CMP #### [facility] [address] [place] [address] Dr. Judd Andrade EO # 0.0 103/ul Normal 0.0-0.7 [facility] Comment on above: Performed By: #### H STROPN, CMP #### [facility] [address] [place] [address] Dr. Judd Andrade Eosinophils/100 WBC (Bld) 0.0 % Critically low 0.9-7.0 [facility] Comment on above: Performed By: #### H STROPN, CMP #### [facility] [address] [place] [address] Dr. Judd Andrade Erythrocyte distribution width (RBC) [Ratio] 13.2 % Normal 11.0-15.0 [facility] Comment on above: Performed By: #### H DEB, CMP #### [facility] [address] [place] [address] Dr. Judd Andrade Hematocrit (Bld) [Volume fraction] 42.1 % Normal 36.0-48.0 [facility] Comment on above: Performed By: #### H TERAPN, CMP #### [facility] [address] [place] [address] Dr. Judd Andrade Hemoglobin (Bld) [Mass/Vol] 13.7 g/dL Normal 12.0-16.0 [facility] Comment on above: Performed By: #### H DEB, CMP #### [facility] [address] [place] [address] Dr. Judd Andrade IG # 0.01 10e3/ul Normal 0.00-0.03 [facility] Comment on above: Performed By: #### H DEB, CMP #### [facility] [address] [place] [address] Dr. Judd Andrade IG % 0.3 % Normal 0.0-0.5 [facility] Comment on above: Performed By: #### H DEB, CMP #### [facility] [address] [place] [address] Dr. Judd Andrade LYMPH # 0.7 103/ul Critically low 1.2-3.8 [facility] Comment on above: Performed By: #### H STROPN, CMP #### [facility] [address] [place] [address] Dr. Judd Andrade Lymphocytes/100 WBC (Bld) 24.1 % Normal 20.5-60.0 [facility] Comment on above: Performed By: #### H STROPN, CMP #### [facility] [address] [place] [address] Dr. Judd Andrade MANUAL DIFF REQ NO Normal [facility] Comment on above: Performed By: #### H STROPN, CMP #### [facility] [address] [address] [address] Judd Andrade MCH (RBC) [Entitic mass] 28.4 pg Normal 26.7-34.0 [facility] Comment on above: Performed By: #### H STROPN, CMP #### [facility] [address] [place] [address] Dr. Judd Andrade MCHC (RBC) [Mass/Vol] 32.5 g/dL Normal 29.9-35.2 [facility] Comment on above: Performed By: #### H STROPN, CMP #### [facility] [address] [place] [address] Dr. Judd Andrade MCV (RBC) [Entitic vol] 87.2 fL Normal 81.0-99.0 [facility] Comment on above: Performed By: #### H STROPN, CMP #### [facility] [address] [place] [address] Dr. Judd Andrade MONO # 0.5 103/ul Normal 0.3-0.8 [facility] Comment on above: Performed By: #### H STROPN, CMP #### [facility] [address] [place] [address] Dr. Judd Andrade Monocytes/100 WBC (Bld) 16.9 % Critically high 1.7-12.0 [facility] Comment on above: Performed By: #### H STROPN, CMP #### [facility] [address] [place] [address] Dr. Judd Andrade NEUT # 1.8 103/ul Normal 1.4-6.5 [facility] Comment on above: Performed By: #### H STROPN, CMP #### [facility] [address] [place] [address] Dr. Judd Andrade Neutrophils/100 WBC (Bld) 58.0 % Normal 43.0-75.0 [facility] Comment on above: Performed By: #### H STROPN, CMP #### [facility] [address] [place] [address] Dr. Judd Andrade Platelet mean volume (Bld) [Entitic vol] 9.9 fL Normal 9.5-13.5 [facility] Comment on above: Performed By: #### H TERAPN, CMP #### [facility] [address] [place] [address] Dr. Judd Andrade PLT 210 103/ul Normal 150-450 [facility] Comment on above: Performed By: #### H TERAPN, CMP #### [facility] [address] [place] [address] Dr. Judd Andrade RBC 4.83 106/ul Normal 4.20-5.40 [facility] Comment on above: Performed By: #### H TERAPN, CMP #### [facility] [address] [place] [address] Dr. Judd Andrade WBC 3.1 103/ul Critically low 4.0-11.0 [facility] Comment on above: Performed By: #### H DEB, CMP #### [facility] [address] [place] [address] Dr. Judd Andrade IRONon 12-23-2021 Iron [Mass/Vol] 35.0 ug/dL Critically low 50.0-170.0 [facility] Comment on above: Performed By: #### C BC #### [facility] [address] [place] [address] Dr. Judd Andrade PROF 14(COMP METB)on 022 Albumin [Mass/Vol] 3.9 g/dL Normal 3.4-5.0 [facility] Comment on above: Performed By: #### C BC #### [facility] [address] [place] [address] Dr. Judd Andrade Albumin/Globulin [Mass ratio] 1.0 {ratio} Normal [facility] Comment on above: Performed By: #### C BC #### [facility] [address] [place] [address] Dr. Judd Andrade ALP [Catalytic activity/Vol] 70 U/L Normal 46-116 [facility] Comment on above: Performed By: #### C BC #### [facility] [address] [place] [address] Dr. Judd Andrade ALT [Catalytic activity/Vol] 43 U/L Normal 14-59 [facility] Comment on above: Performed By: #### C BC #### [facility] [address] [address] [address] Judd Andrade Anion gap [Moles/Vol] 11.5 mmol/L Normal [facility] Comment on above: Performed By: #### C BC #### [facility] [address] [address] [address] Judd Andrade AST [Catalytic activity/Vol] 33 U/L Normal 15-37 [facility] Comment on above: Performed By: #### C BC #### [facility] [address] [address] [address] Judd Andrade Bilirubin [Mass/Vol] 0.3 mg/dL Normal 0.2-1.0 [facility] Comment on above: Performed By: #### C BC #### [facility] [address] [address] [address] Judd Andrade Calcium [Mass/Vol] 8.9 mg/dL Normal 8.5-10.1 [facility] Comment on above: Performed By: #### C BC #### [facility] [address] [address] [address] Judd Andrade Chloride [Moles/Vol] 101 mmol/L Normal 98-107 [facility] Comment on above: Performed By: #### C BC #### [facility] [address] [address] [address] Judd Andrade CO2 [Moles/Vol] 31.1 mmol/L Normal 21.0-32.0 [facility] Comment on above: Performed By: #### C BC #### [facility] [address] [address] [address] Judd Andrade Creatinine [Mass/Vol] 0.69 mg/dL Normal 0.55-1.02 [facility] Comment on above: Performed By: #### C BC #### [facility] [address] [address] [address] Judd Andrade EGFR-AF CITIZEN OF [place] >60 Normal >=60 [facility] Comment on above: Performed By: #### C BC #### [facility] [address] [place] [address] Dr. Judd Andrade EGFR-NON AF CITIZEN OF [place] >60 Normal >=60 [facility] Comment on above: Performed By: #### C BC #### [facility] [address] [address] [address] Judd Andrade Globulin (S) [Mass/Vol] 3.8 g/dL Normal [facility] Comment on above: Performed By: #### C BC #### [facility] [address] [address] [address] Judd Andrade Glucose [Mass/Vol] 103 mg/dL Normal 74-106 [facility] Comment on above: Performed By: #### C BC #### [facility] [address] [place] [address] Dr. Judd Andrade Potassium [Moles/Vol] 3.6 mmol/L Normal 3.5-5.1 [facility] Comment on above: Performed By: #### C BC #### [facility] [address] [place] [address] Dr. Judd Andrade Protein [Mass/Vol] 7.7 g/dL Normal 6.4-8.2 [facility] Comment on above: Performed By: #### C BC #### [facility] [address] [place] [address] Dr. Judd Andrade Sodium [Moles/Vol] 140 mmol/L Normal 136-145 [facility] Comment on above: Performed By: #### C BC #### [facility] [address] [place] [address] Dr. Judd Andrade Urea nitrogen [Mass/Vol] 11.0 mg/dL Normal 7.0-18.0 [facility] Comment on above: Performed By: #### C BC #### [facility] [address] [place] [address] Dr. Judd Andrade Urea nitrogen/Creatinine [Mass ratio] 15.9 mg/mg Normal [facility] Comment on above: Performed By: #### C BC #### [facility] [address] [place] [address] Dr. Judd Andrade PROTIMEon 12-23-2021 INR Coag (PPP) [Relative time] 1.04 {INR} Normal [facility] Comment on above: Performed By: #### H DEB, CMP #### [facility] [address] [place] [address] Dr. Judd Andrade INR GUIDELINES SEE BELOW Normal [facility] Comment on above: Result Comment: PRIETO RED INR: 2.0 - 3.0 CONDITIONS NOT LISTED BELOW 2.5 - 3.5 FOR PROSTHETIC HEART VALVE REPLACEMENT 2.5 - 3.5 RECURRENT THROMBOSIS Performed By: #### H DEB, CMP #### [facility] [address] [place] [address] Dr. Judd Andrade PT Coag (PPP) [Time] 11.2 s Normal 9.0-11.6 [facility] Comment on above: Performed By: #### Sara BOYD, CMP #### [facility] [address] [place] [address] Dr. Judd Andrade PTTon 12-23-2021 aPTT Coag (Bld) [Time] 31.5 s Normal 22.3-36.2 [facility] Comment on above: Performed By: #### H DEB, CMP #### [facility] [address] [place] [address] Dr. Judd Andrade ER URINE PROFILEon 2 Bilirubin Ql (U) Negative Normal NEGATIVE [facility] Comment on above: Performed By: #### Sara BOYD, CMP #### [facility] [address] [place] [address] Dr. Judd Andrade Clarity (U) CLEAR Normal CLEAR [facility] Comment on above: Performed By: #### H DEB, CMP #### [facility] [address] [place] [address] Dr. Judd Andrade Color (U) LT. YELLOW Normal YELLOW [facility] Comment on above: Performed By: #### H DEB, CMP #### [facility] [address] [place] [address] Dr. Judd Andrade ERUAHD A micrscopic examination will be performed if indicated. Normal [facility] Comment on above: Performed By: #### H STROPN, CMP #### [facility] [address] [address] [address] Judd Andrade Glucose Ql (U) Negative Normal NEGATIVE [facility] Comment on above: Performed By: #### H STROPN, CMP #### [facility] [address] [address] [address] Judd Andrade Hemoglobin Ql (U) TRACE-INTACT Abnormal NEGATIVE [facility] Comment on above: Performed By: #### H STROPN, CMP #### [facility] [address] [place] [address] Dr. Judd Andrade Ketones Ql (U) Negative Normal NEGATIVE [facility] Comment on above: Performed By: #### H STROPN, CMP #### [facility] [address] [place] [address] Dr. Judd Andrade LEUKOCYTES Negative Normal NEGATIVE [facility] Comment on above: Performed By: #### H STROPN, CMP #### [facility] [address] [place] [address] Dr. Judd Andrade Nitrite Ql (U) Negative Normal NEGATIVE [facility] Comment on above: Performed By: #### H STROPN, CMP #### [facility] [address] [place] [address] Dr. Judd Andrade pH (U) 6.0 [pH] Normal 5-9 [facility] Comment on above: Performed By: #### H STROPN, CMP #### [facility] [address] [place] [address] Dr. Judd Andrade SPEC GRAVITY 1.005 Normal 1.005-<=1.025 [facility] Comment on above: Performed By: #### H STROPN, CMP #### [facility] [address] [place] [address] Dr. Judd Andrade UA PROTEIN Negative Normal NEGATIVE/ TRACE [facility] Comment on above: Performed By: #### H STROPN, CMP #### [facility] [address] [place] [address] Dr. Judd Andrade UR MICRO IND INDICATED Normal [facility] Comment on above: Performed By: #### H STROPN, CMP #### [facility] [address] [address] [address] Judd Andrade Urobilinogen Qn (U) 0.2 {Carol'U}/dL Normal 0.2 - 1. 0 [facility] Comment on above: Performed By: #### H STROPN, CMP #### [facility] [address] [address] [address] Judd Andrade URINE MICROSCOPIC ONLYon BACTERIA NONE SEEN Normal NONE SEEN [facility] Comment on above: Performed By: #### H STROPN, CMP #### [facility] [address] [place] [address] Dr. Judd Andrade Bacteria identified Cx Nom (U) NOT INDICATED Normal [facility] Comment on above: Performed By: #### H STROPN, CMP #### [facility] [address] [place] [address] Dr. Judd Andrade CAST NONE SEEN Normal NONE SEEN [facility] Comment on above: Performed By: #### H STROPN, CMP #### [facility] [address] [place] [address] Dr. Judd Andrade Crystals LM Nom (Urine sed) NONE SEEN Normal NONE SEEN [facility] Comment on above: Performed By: #### H STROPN, CMP #### [facility] [address] [place] [address] Dr. Judd Andrade Epithelial cells LM Ql (Urine sed) FEW Abnormal NONE SEEN /RARE [facility] Comment on above: Performed By: #### H STROPN, CMP #### [facility] [address] [place] [address] Dr. Judd Andrade MUCOUS NONE SEEN Normal NONE SEEN [facility] Comment on above: Performed By: #### H STROPN, CMP #### [facility] [address] [place] [address] Dr. Judd Andrade RBC 0-2 Normal 0-2 [facility] Comment on above: Performed By: #### H STROPN, CMP #### [facility] [address] [address] [address] Judd Andrade WBC NONE SEEN Normal NONE SEEN [facility] Comment on above: Performed By: #### H DEB, [facility] #### [facility] [address] [address] [address] Judd Andrade Vital Signs Date Time Vital Sign Value Performing Clinician Facility 01-20-2024 12:02-0400 Body mass index (BMI) [Ratio] 28.34 kg/m2 Katie Yocasta DO Work Phone: [facility] 01-20-2024 12:02-0400 Body weight 72.58 kg Katie Yocasta DO Work Phone: [facility] 01-20-2024 12:02-0400 Diastolic blood pressure 80 mm[Hg] Katie Yocasta DO Work Phone: [facility] 01-20-2024 12:02-0400 Systolic blood pressure 160 mm[Hg] Katie Yocasta DO Work Phone: [facility] 01-03-2024 13:11-0400 Body mass index (BMI) [Ratio] 28.17 kg/m2 Katie Yocasta DO Work Phone: [facility] 01-03-2024 13:11-0400 Body weight 72.12 kg Katie Yocasta DO Work Phone: [facility] 01-03-2024 13:11-0400 Diastolic blood pressure 70 mm[Hg] Katie Yocasta DO Work Phone: [facility] 01-03-2024 13:11-0400 Systolic blood pressure 120 mm[Hg] Katie Yocasta DO Work Phone: [facility] 12-30-2023 13:48-0400 Blood Pressure Location Bessievicki Gong [facility] 12-30-2023 13:48-0400 Diastolic blood pressure 82 mm[Hg] Bessie Galea [facility] 12-30-2023 13:48-0400 Heart rate 80 /min Bessei Galea [facility] 12-30-2023 13:48-0400 Respiratory rate 16 /min Bessie Galea [facility] 12-30-2023 13:48-0400 Systolic blood pressure 117 mm[Hg] Bessie Galea [facility] 12-21-2023 11:47-0400 Body mass index (BMI) [Ratio] 27.99 kg/m2 Radha KAY Work Phone: [facility] 12-21-2023 11:47-0400 Body weight 71.67 kg Radha KAY Work Phone: [facility] 12-21-2023 11:47-0400 Diastolic blood pressure 78 mm[Hg] Radha KAY Work Phone: [facility] 12-21-2023 11:47-0400 Systolic blood pressure 118 mm[Hg] Radha KAY Work Phone: [facility] Healthcare Encounters Encounter Date Encounter Type Care Provider Facility Start: 09-05-2024 End: 09-05-2024 Chart abstracting Scanning Provider External [facility] Start: 08-29-2024 End: 08-29-2024 ambulatory [facility] Start: 08-17-2024 End: 08-17-2024 [facility] Start: 08-08-2024 End: 08-08-2024 [facility] Start: 07-03-2024 End: 07-03-2024 [facility] Start: 06-19-2024 End: 06-19-2024 [facility] Start: 06-06-2024 End: 06-06-2024 [facility] Start: 05-30-2024 End: 05-30-2024 Clinisync Result Encounter Katie Yocasta DO Work Phone: [facility] Unsolicited Start: 05-30-2024 End: 05-30-2024 Clinisync Result Encounter Katie Yocasta DO Work Phone: [facility] Unsolicited Start: 05-29-2024 End: 05-29-2024 ambulatory [facility] Start: 05-22-2024 End: 05-22-2024 ambulatory [facility] Start: 05-08-2024 End: 05-08-2024 [facility] Start: 01-20-2024 End: 01-20-2024 Bamboo flowsheet Katie [...] Work Phone: [facility] External [facility] Unsolicited Start: 01-07-2024 End: 01-07-2024 Clinisync Result Encounter Katie Yocasta DO Work Phone: [facility] Unsolicited Start: 01-07-2024 End: 01-07-2024 ambulatory MD John Porter Work Phone: [facility] Work Phone: Start: 01-07-2024 End: 01-07-2024 Departed Referred MD John Porter Work Phone: [facility] Start: 01-03-2024 [...] examination done Katie Yocasta DO Work Phone: [facility] Start: 01-03-2024 End: 01-03-2024 ambulatory KATIE YOCASTA Not Available Start: 12-30-2023 End: 12-30-2023 ambulatory Bessie Gong Facility:[facility] Start: 12-30-2023 End: 12-30-2023 Patient encounter procedure Bessie Gong [facility] Start: 12-29-2023 End: 12-29-2023 Phys/qhp telephone evaluation 5-10 min Katie Yocasta DO Work Phone: [facility] Comment on above: Urinary tract infect ion without hematuria, site unspecified; Vulvar irritation Start: 12-21-2023 End: 12-21-2023 Bamboo flowsheet Radha KAY Work Phone: [facility] Start: 12-21-2023 End: 12-22-2023 Bamboo flowsheet Radha KAY Work Phone: [facility] Start: 12-21-2023 End: 12-22-2023 External Result Encounter Radha KAY Work Phone: [facility] External Department Unsolicited Start: 12-21-2023 End: 12-21-2023 ambulatory RADHA TINSLEY Not Available Start: 12-21-2023 End: 12-21-2023 Office outpatient visit 15 minutes Radha Tinsley PA Work Phone: [facility] Comment on [...] response examination DR JOHN PORTER . [facility] Start: 06-26-2022 End: 06-27-[address] JOHN POTRER . Facility:[facility] Start: 06-26-2022 End: 06-27-2022 Encounter [...] Start: 05-30-2024 MM TOMOSYNTHESIS SCREENING BI Katie Yocasta DO Work Phone: Start: 01-07-2024 ALL CBC WITH AUTO DIFF Katie Yocasta DO Work Phone: Start: 12-21-2023 URETHRITIS/DISCHARGE PLUS VAGINITIS (HTRX) Radha KAY Work Phone: Start: 10-17-2018 Cystourethroscopy with dilation of urethral stricture Bessievicki Gong Appendectomy Bessievicki Gong H/O: surgery S/P D&C (status post dilation and curettage) Katie Yocasta DO Work Phone: History of cholecystectomy A dina Gong Tonsillectomy Bessie Galea Plan of Treatment Date Care Activity Detail Author Start: 10-05-2032 DTaP,Tdap and Td Vac cines (2 - Td or Tdap) DTaP,Tdap and Td Vaccines (2 - Td or Tdap) [facility] Start: 12-25-2024 Influenza vaccination Influenza Vacc ine [facility] Start: 07-19-2024 End: 07-19-2024 Patient encounter procedure 07/19/2024 3:40 PM EDT Office Visit [facility] [address] [place] [address] Katie Rust, [address] [place] [address] [facility] Start: 01-07-2024 End: 01-07-2024 Patient encounter procedure 01/07/2024 9:00 AM EDT Procedure Visit [facility] Katie Rust, DO [address] [place] [address] [facility] Start: 01-03-2024 End: 01-03-2024 Patient encounter procedure [facility] Comment on above: Arrived Start: 12-29-2023 End: 12-29-2023 Patient encounter procedure [facility] Start: 08-19-2015 Administration of varicella zoster vaccine Zoster (Shingles) Vaccine (1 of 2) [facility] Start: 1986 Screening for malign ant neoplasm of cervix Pap Smear [facility] Start: 08-19-1983 Adult BMI Screening Adult BMI Screen ing [facility] Start: 1977 Depression Screening Depression Scre ening [facility] Start: 1977 Tobacco Screening Tobacco Screening [facility] CHLAMYDIA TRACHOMATI S (GENITO/STI) CHLAMYDIA TRACHOMATIS (GENITO/STI) [...] vaccine, adsorbed Bessie Galea [facility] Payers Date Payer Category Payer Self-pay [id number] 2023 Unknown [id number] 2022 Managed Care Other (unspecified) [employer] [id number] 2020 [facility] [id number] 2020 Unknown FRONTPATH FRONTP ATH [id number] 2020-Present [phone] [address] [place] [address] [id number]. 2.7.3.099187.315 1965 Unknown [id number] 2.16.840.1.780479.3.579. 2.593 1965 Unknown [id number] 2.16.840.1.806831.3.579. 2.593 1965 Unknown [id number] 2.16.840.1.638322.3.579. 2.593 1965 Unknown [id number] 2.16.840.1.739885.3.579. 2.593 1965 Unknown [id number] 2.16.840.1.460461.3.579. 2.593 1965 Unknown [id number] 2.16.840.1.995903.3.579. 2.593 1965 Unknown [id number] 2.16.840.1.415332.3.579. 2.593 1965 Unknown [id number] 2.16.840.1.759246.3.579. 2.593 1965 Unknown [id number] 2.16.840.1.858702.3.579. 2.593 1965 Unknown [id number] 2.16.840.1.042472.3.579. 2.593 1965 Unknown [id number] 2.16.840.1.307302.3.579. 2.593 1965 Unknown [id number] 2.16.840.1.294612.3.579. 2.593 1965 Unknown [id number] 2.16.840.1.466690.3.579. 2.593 1965 Unknown [id number] 2.16.840.1.652768.3.579. 2.593 1965 Unknown [id number] 2.16.840.1.568081.3.579. 2.593 1965 Unknown [id number] 2.16.840.1.754652.3.579. 2.593 1965 Unknown [id number] 2.16.840.1.458255.3.579. 2.593 1965 Unknown [id number] 2.16.840.1.979564.3.579. 2.593 1965 Unknown [id number] 2.16.840.1.306962.3.579. 2.593 1965 Unknown [id number] 2.16.840.1.639115.3.579. 2.593 1965 Unknown [id number] 2.16.840.1.756625.3.579. 2.593 1965 Unknown [id number] 2.16.840.1.922538.3.579. 2.593 1965 Unknown [id number] 2.16.840.1.273455.3.579. 2.593 1965 Unknown [id number] 2.16.840.1.722455.3.579. 2.593 1965 Unknown [id number] 2.16.840.1.024152.3.579. 2.1259 1965 Unknown [id number] 2.16.840.1.296693.3.579. 2.1259 1965 Unknown [id number] 2.16.840.1.452407.3.579. 2.125 1965 Unknown [id number] 2.16.840.1.114804.3.579. 2.1259 1965 Unknown [id number] 2.16.840.1.360699.3.579. 2.1259 1965 Unknown [id number] 2.16.840.1.051784.3.579. 2.1259 1965 Unknown [id number] 2.16.840.1.448617.3.579. 2.727 1965 Unknown [id number] 2.16.840.1.577230.3.579. 2.1286 1965 Unknown [id number] 2.16.840.1.674095.3.579. 2.1286 1965 Unknown [id number] 2.16.840.1.486614.3.579. 2.1286 1965 Unknown [id number] 2.16.840.1.017074.3.579. 2.1286 1965 Unknown [id number] 2.16.840.1.137308.3.579. 2.128 1965 Unknown [id number] 2.16.840.1.916142.3.579. 2.1286 1965 Unknown [id number] 2.16.840.1.244527.3.579. 2.1285 1965 Unknown [id number] 2.16.840.1.814281.3.579. 2.6 1965 Unknown [id number] 2.16840.1.509628.3.579. 2.1286 1959 Self-pay [id number] 1959 Unknown [id number] 1959 Unknown [id number] Unknown [id number] 2.16840.1.692124.3.579. 2.531 Social History Date Type Detail Facility Start: 12-30-2022 End: 12-30-2023 Tobacco smoking status Ex-smoker (finding) [facility] Tobacco smoking status Never [facility] Start: 05-07-2020 End: 12-21-2023 Sex Assigned At Female [facility] Start: 09-05-2013 End: 09-11-2020 Tobacco smoking status NHIS Never smoked tobacco (finding) [facility] Start: 1965 Sex Assigned At Female F [facility] History of tobacco use Current smoker [facility] History of tobacco use Cigarette Smoker N [facility] Start: 01-03-2024 End: 01-20-2024 Alcoholic beverage intake Lifetime non-drinker (finding) [facility] Start: 05-07-2020 End: 12-21-2023 History of Social function [facility] Start: 12-30-2022 Alcohol Comment Caffeine: none [facility] Start: 1965 Sex assigned at Not on file N [facility] Start: 09-11-2020 Tobacco use and exposure Smokeless tobacco non-user [facility] Start: 11-29-2014 Sex Female (finding) [facility] Functional Status Date Assessment Result Facility 12-30-2023 Functional Status N/A [facility] Clinical Notes 12-21-2023 to 01-20-2024 Deepti Palacios [facility] - 01/20/2024 11:50 AM Suad Palacios [facility] - 01/03/2024 1:00 PM Carlos Buckley [facility] - 12/29/2023 8:00 AM LEIZA Leggett - 12/21/2023 10:50 AM EDT Note [...] 08/14/2013 Acute pelvic pain 10/28/2022 Anxiety state ([facility]/HCC) 08/14/2013 Bilateral tinnitus 10/28/2022 Cervical disc disorder 08/14/2013 Fibrocystic breast changes 10/28/2022 Generalized anxiety disorder ([facility]/HCC) 03/28/2019 Intermittent vertigo 04/26/2004 Irritable bowel syndrome 08/14/2013 Major depressive disorder, single episode, moderate (HCC) ([facility]/HCC) 03/28/2019 Meniere's disease 08/14/2013 Menopausal symptoms 11/17/2016 Menorrhagia 10/28/2022 Other specified hearing loss, right ear 02/25/2016 Pressure in head 04/26/2015 Psychological factors affecting medical condition 11/17/2016 Shoulder joint pain 10/28/2022 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 Exam conducted with a nursing resident present. Vitals: Estimated body mass index is [...] Katie Rust DO documented in this encounter [facility] 01-03-2024 History of Presen t [...] 08/14/2013 Acute pelvic pain 10/28/2022 Anxiety state ([facility]/HCC) 08/14/2013 Bilateral tinnitus 10/28/2022 Cervical disc disorder [...] nursing note reviewed. Exam conducted with a nursing resident present. Vitals: Estimated body mass index is [...] reviewed, and patient is to proceed to [facility] OR. Follow Up: Patient is to follow up between 1-2 weeks post operative to assess proper healing and recovery from procedure. Documented by Deepti Palacios LPN on behalf of: Katie Rust DO documented in this encounter [facility] 12-30-2023 Hospital Discharg e instructions [...] provider. Document Revised: 08/21/2021 Document Reviewed: 08/21/2021 [employer]Control Patient Education 2023 [employer]. Follow Up Care 12/02/2023 13:46:26 With:Farideh BARRERA, Bessie Modi, URL Address: When: Unknown Comments:pending imaging and after PFPT [facility] 12-30-2023 Note Patient Education Obstetrics and Gynecology [...] provider. Document Revised: 08/21/2021 Document Reviewed: 08/21/2021 [employer]ared Patient Education ? 2023 [employer] [facility] 12-29-2023 History of Presen t illness Narrative Reason for Appointment: Patient ID: Yulia Dorsey is a 58 y.o. female who presents for Telehealth, UTI, and kidney stone Patient presents today via telephone call for a telehealth appointment. Patients Phone #: [phone] (mobile) Current Medications: has a current medication list which includes the following prescription(s): vitamin c, calcium carbonate, nldgcoz-vhfwfcdoj-zakz, airborne elderberry, and multivitamin. Medical History: Active [...] Katie Rust DO documented in this encounter [facility] 12-21-2023 History of Presen t [...] 08/14/2013 Acute pelvic pain 10/28/2022 Anxiety state ([facility]/HCC) 08/14/2013 Bilateral tinnitus 10/28/2022 Cervical disc disorder 08/14/2013 Fibrocystic breast changes 10/28/2022 Generalized anxiety disorder ([facility]/HCC) 03/28/2019 Intermittent vertigo 04/26/2004 Irritable bowel syndrome 08/14/2013 Major depressive disorder, single episode, moderate (HCC) ([facility]) 03/28/2019 Meniere's disease 08/14/2013 Menopausal symptoms 11/17/2016 Menorrhagia 10/28/2022 Other specified hearing loss, right ear 02/25/2016 Pressure in head 04/26/2015 Psychological factors affecting medical condition 11/17/2016 Shoulder joint pain 10/28/2022 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) 11/17/2016 Thickened endometrium 10/28/2022 Viral hepatitis [...] for screening mammogram for breast cancer 2018 normal Encounter to discuss procedure Caleb-Fox viral [...] DILATION AND CURETTAGE OF UTERUS 2011 HYSTEROSCOPY 2014 D&C TONSILLECTOMY 06/15/2011 WISDOM TOOTH EXTRACTION wisdom [...] of: ELIZA Mccollum documented in this encounter [facility] Healthcare Evaluation + Plan note No data available for this section [facility] Evaluation note No assessment inform ation available [facility] Work Phone: Evaluation note Diagnosis Vaginal burning Other specified symptom associated with female genital organs Vaginal itching Pruritus of genital organs documented in this encounter [facility] HealthcareEvaluation note* Diagnosis Urinary tract infection without hematuria, site unspecified Vulvar irritation documented in this encounter [facility] HealthcareEvaluation note* Diagnosis Pre-op examination Yeast infection Thickened endometrium Nonspecific (abnormal) findings on radiological and other examination of genitourinary organs Pelvic pain documented in this encounter [facility] HealthcareEvaluation note* Diagnosis Postoperative visit S/P D&C (status post dilation and curettage) Other postprocedural status documented in this encounter [facility] HealthcareInstructionsNot on filedocumented in this [facility] System[facility] note No data available for this section [facility] Summary Purpose Family History Relationship Condition Age at Onset Recorded Date/T lópez father Heart disease Unknown mother Unknown History of stroke Unknown Advance Directives Advance Directive Response Recorded Date/ Time Advance Directives No July 15, 2 019 11:52am Additional Source Comments INFORMATION SOURCE (unrecogn ized section and content) DATE CREATED AUTHOR 10/02/2022 [facility] DATE CREATED AUTHOR AUTHOR'S ORGANIZ ATION 01/04/2024 [facility] EPIC DATE CREATED AUTHOR AUTHOR'S ORGANIZ ATION 01/09/2024 [facility] DATE CREATED AUTHOR AUTHOR'S ORGANIZ ATION 01/14/2024 [facility] DATE CREATED AUTHOR AUTHOR'S ORGANIZ ATION 09/01/2024 [facility] Patient Care team informatio n (unrecognized section and content) Team Status: Active Member Role Status Dates John Porter MD Primary Care Provider Active Team Status: Inactive Member Role Status Dates John Porter MD Primary Care Provider Active Start: January 07, 2024 End: January 07, 2024 Katie Rust DO Attending Provider Active Start : January 07, 2024 End: January 07, 2024 911 Dispatcher Relationship Specialty Start Date End Date John Porter MD [address] [place] [address] PCP - General 09/13/22 911 Dispatcher Relationship Specialty Start Date End Date John Porter MD [address] [place] [address] PCP - General 09/13/22 911 Dispatcher Relationship Specialty Start Date End Date John Porter MD [address] [place] [address] PCP - General 09/13/22 911 Dispatcher Relationship Specialty Start Date End Date John Porter MD [address] [place] [address] PCP - General 09/13/22 911 Dispatcher Relationship Specialty Start Date End Date John Porter MD [address] [place] [address] PCP - General 09/13/22 911 Dispatcher Relationship Specialty Start Date End Date John Porter MD [address] [place] [address] PCP - General 09/13/22 911 Dispatcher Relationship Specialty Start Date End Date John Porter MD [address] [place] [address] PCP - General 09/13/22 911 Dispatcher Relationship Specialty Start Date End Date John Porter MD PCP - General Family Medicine 03/22/19 Goals (unrecognized section and content) Goals may [...] BE BASED ON THE PRIMARY CLINICAL RECORDS. [employer] [facility]. provides no warranty or guarantee of the accuracy or completeness of information in this document.
--- OUTSIDE RECORDS SUMMARY | 2024-09-20 07:23 | XMS_ITS | Encounter Summary ---
Author Organization [facility] Address [address] [place] [address] Care Team Providers Care Shop Hand Name Role Phone Estiven Porter MD Primary Care Provider [phone] Encounter Details Date Type Department Care Team (Late st Contact Info) Description 09/22/2022 Clinisync Result Encounter [facility] External Department Unsolicited Katie Rust, DO [address] [facility] [place] [address] Social History Tobacco Use Types [...] Procedure Name Priority Date/Time Associated Diagnosis Comments BI US BREAST LIMITED RIGHT 09/22/2022 2:46 PM EDT documented in this encounter Results * Right breast US limited (09/22/2022 2:46 PM EDT) Anatomical Region Laterality Modality Breast Right Ultrasound 09/22/2022 2:46 PM EDT Narrative 09/22/2022 2:46 PM EDT Patient: YULIA DORSEY Exam Date: 09/22/2022 : 1965 Gender:F Ordering : DR KATIE RUST . Admission #: [id number] Family : Order #: [id number] CLICK HERE TO VIEW EXAM RADIOLOGY REPORT [...] at age 40. LOCATION: [facility] BREAST COMPOSITION: Almost entirely fatty. FINDINGS: [...] 15:03 Procedure Note Radiology, Radiologist, MD - 09/25/2022 Patient: YULIA DORSEY. Exam Date: 09/22/2022 : 1965 Gender:F Ordering : DR KATIE RUST . Admission #: [id number] Family : Order #: [id number] CLICK HERE TO VIEW EXAM RADIOLOGY REPORT [...] at age 40. LOCATION: [facility] BREAST COMPOSITION: Almost entirely fatty. FINDINGS: [...] 09/22/2022 at 15:03 us Katie Yocasta DO IMG US PROCEDURES Final Result documented in this encounter Visit Diagnoses Not on filedocumented in this encounter Care Teams Shop Hand Relationship Specialty Start Date End Date Estiven Porter MD PCP - General 09/13/22 documented as of this encounter
--- OUTSIDE RECORDS SUMMARY | 2024-09-20 07:23 | XMS_ITS | Encounter Summary ---
Author Organization [employer] Address [id number] [address] [place] [address] Care Team Providers Care Social Work Associate Name Role Phone Estiven Porter MD Primary Care Provider [phone] Encounter Details Date Type Department Care Team (Latest Contact Info) Description 09/15/2024 Travel Social History Tobacco Use Types Packs/Day Years [...] Encounters Date Type Department Care Team (Late st Contact Info) Description 01/30/2025 1:00 PM EDT Office Visit [facility] [address] [place] [address] Allyson Thomas MD [address] [place] [address] documented as of this encounter Visit Diagnoses Not on filedocumented in this encounter Care Teams Social Work Associate Relationship Specialty Start Date End Date Estiven Porter MD PCP - General Family Medicine 03/22/19 documented as of this encounter
--- OUTSIDE RECORDS SUMMARY | 2024-09-20 07:23 | XMS_ITS | Encounter Summary ---
Author Organization [facility] Address [address] [place] [address] Care Team Providers Care Life Enrichment Assistant Name Role Phone Estiven Porter MD Primary Care Provider [phone] Encounter Details Date Type Department Care Team (Late st Contact Info) Description 07/13/2023 Clinisync Result Encounter [facility] External Department Unsolicited Katie Rust, DO [address] [facility] [address] [place], [place] [id number] Social History Tobacco Use Types Packs/Day Years [...] Procedure Name Priority Date/Time Associated Diagnosis Comments US PELVIS W/ TRANSVAGINAL 07/13/2023 7:18 AM EDT documented in this encounter Results * US PELVIS W/ TRANSVAGINAL (07/13/2023 7:18 AM EDT) Anatomical Region Laterality Modality Other 07/13/2023 7:18 AM EDT Narrative 07/13/2023 7:20 AM EDT [facility] [place] [id number] Ultrasound Report Signed Patient: YULIA DORSEY MR#: [id number] : 1965 Acct:[id number] Age/Sex: 57 / F ADM Date: 07/12/23 Loc: US Attending Dr: Katie Rust D.O. Ordering Physician: Katie Rust D.O. Date of Service: 07/12/23 Procedure(s): US pelvis w/ transvaginal Accession Number(s): [id number] cc: Katie Rust D.O.; Estiven Porter M.D. [place] [id number] Patient Name: YULIA DORSEY MRN: [id number] date: 1965 Sex: F Assigned Patient Location: US Current Patient Location: Accession/Order Number: [id number] Exam Date: 07/12/2023 16:50 Report Date: 07/13/2023 07:18 At the request of: KATIE RUST Procedure: US pelvis w/ transvaginal EXAMINATION: US pelvis w/ transvaginal HISTORY: thickened endometrium R93.89 COMPARISON: 07/28/2022 FINDINGS: The uterus is normal in size, contour and echotexture measuring 7.1 x 3.7 x 4.3 cm. Complex area in the superior myometrium measuring 1.4 cm, a fibroid is favored. The uterus is anteverted. Endometrium measures 8.6 mm, thickened for postmenopausal patient. Area of anechoic echogenicity could represent fluid measuring 2 mm. Some color flow is identified in the endometrial The ovaries are not visualized No free fluid US/US pelvis w/ transvaginal IMPRESSION: The endometrium measures 8.6 mm with some color flow. This is thickened for a postmenopausal patient. Consider histopathologic diagnosis Electronically authenticated by: ELLYN ALVAREZ Date: 07/13/2023 07:18 Dictated By: Ellyn Alvarez M.D. Signed By: 07/13/2320 DD/ 7 TD/TT: Air Export Agent: Procedure Note Radiology, Radiologist, MD - 03/19/[address] [address] Ultrasound Report Signed Patient: YULIA DORSEY LMR#: [id number] : 1965Acct:[id number] Age/Sex: 57 / FADM Date: 07/12/23 Loc: US Attending Dr: Katie Rust D.O. Ordering Physician: Katie Rust D.O. Date of Service: 07/12/23 Procedure(s): US pelvis w/ transvaginal Accession Number(s): [id number] cc: Katie Rust D.O.; Estiven Porter M.D. [facility] [place] [id number] Patient Name: YULIA DORSEY MRN: [id number] date: 1965 Sex: F Assigned Patient Location: US Current Patient Location: Accession/Order Number: [id number] Exam Date: 07/12/2023 16:50 Report Date: 07/13/2023 07:18 At the request of: KATIE RUST Procedure: US pelvis w/ transvaginal EXAMINATION: US pelvis w/ transvaginal HISTORY: thickened endometrium R93.89 COMPARISON: 07/28/2022 FINDINGS: The uterus is normal in size, contour and echotexture measuring 7.1 x 3.7x 4.3 cm. Complex area in the superior myometrium measuring 1.4 cm, a fibroid is favored. The uterus is anteverted. Endometrium measures 8.6 mm, thickened for postmenopausal patient. Area of anechoic echogenicity could represent fluid measuring 2 mm. Some colorflow is identified in the endometrial The ovaries are not visualized No free fluid US/US pelvis w/ transvaginal IMPRESSION: The endometrium measures 8.6 mm with some color flow. This is thickenedfor a postmenopausal patient. Consider histopathologic diagnosis Electronically authenticated by: ELLYN ALVAREZ Date: 07/13/2023 07:18 Dictated By: Ellyn Alvarez M.D. Signed By:07/13/23719 DD/ 7 TD/TT: Air Export Agent: us Katie Yocasta DO [facility] Final Result documented in this encounter Visit Diagnoses Not on filedocumented in this encounter Care Teams Life Enrichment Assistant Relationship Specialty Start Date End Date Estiven Porter MD PCP - General 09/13/22 documented as of this encounter
== END 2024-09-20 07:20 | disposition home or self-care (01) ==
LOC: LAB 07:20
PROVIDERS: PCP Family Medicine; Visit Provider Family Medicine
DX: E27.0 Other adrenocortical overactivity (principal)
CPT/HCPCS: 36415; 82533

== ENCOUNTER 2024-09-27 07:42 | Outpatient (OUT) | payer OTHER, SELFPAY ==
--- OUTSIDE RECORDS SUMMARY | 2024-09-13 07:42 | XMS_ITS ---
Author Organization The [facility] in [place] Address [address] [place] [address] Care Team Providers Care Dip Tube Assembler Machine Name Role Phone German Prashant Primary Care Provider Results Component Value Reference Range Notes Cortisol Reviewed date:09/21/2024 06:05:26 PM Interpretation: Performing Lab: Notes/Report: [facility] , Cortisol 21.0 6.2-19.4 ug/dL Please Note: The reference interval and flagging for this test is for an AM collection. If this is a PM collection please use: Cortisol PM: 2.3-11.9 Performed at: - [facility] [address] [id number] Safety And Occupational Health Manager: Ti Macias PhD, Phone: [phone] Performing Lab: see note - [facility] LB Reason For Referral Diagnosis 1 Elevated cortisol le michelle (E27.0) Referral Organization [facility] Referring Provider First Name Prashant Referring Provider Last Name Benylars Referring Provider Speciality Family [facility] icine Referred Provider Gala Flores Referred Provider Specialty Endocrinolog y Referral Priority Routine REASON FOR VISIT Cortisol level Encounters Encounter Location Date Provider Diagnosis [facility] [address] [place] [address] 09/13/2024 Prashant Porter Elevated cortisol level E27.0 Assessments Encounter Date Diagnosis (ICD Code) Assessment Notes Treatment Notes Treatment Clinical Notes Section Notes 09/13/2024 Elevated cortisol level (ICD-10 - E27.0) Plan Of Treatment Referrals Referral Date Details 09/19/2024 09/19/2024, Gala He bbagh Progress Notes * Quang DORSEYOB:1965 ( 59 yo F)Acc No.[id number]:09/13/2024 Patient: Eugenia SANTOS :1965 A ge:59 Y S ex:Female Address:[address] [place] [address] Subjective: * Chief Complaints: * C ortisol level * Medical History: * Surgical History: * Hospitalization/Major Diagno stic Procedure: * Medications: Objective: * Vitals: * Physical Examination: Assessment: * Assessment: 1. E levated cortisol level - E27.0 (Primary) Plan: * Treatment: * Procedure Codes: * true * Date: Generated for Toñoi lambert/Hortensia/eTransmitting on: 0 09/27/2024 07:46 AM EDT Consultation Request Notes Referral Date Referring Provider Referred Provider Not es 09/19/2024 Prashant Porter Ahmad
--- OUTSIDE RECORDS SUMMARY | 2024-09-19 15:55 | XMS_ITS ---
Author Organization The [facility] in [place] Address [address] [place] [address] Care Team Providers Care Log Handler Name Role Phone Prashant Porter Primary Care Provider REASON FOR VISIT Lab orders Encounters Encounter Location Date Provider Diagnosis [facility] [address] [place] [address] 09/19/2024 Prashant Porter Weight loss R63.4 an d Fatigue R53.83 Assessments Encounter Date Diagnosis (ICD Code) Assessment Notes Treatment Notes Treatment Clinical Notes Section Notes 09/19/2024 Weight loss (ICD-10 - R63.4) 09/19/2024 Fatigue (ICD-10 - R53.83) Plan Of Treatment Pending Test Test Name Order Date CMP - Comprehensive Metabolic Panel 08/25 CBC W/AUTO DIFF 09/19/2024 CA 19-9 09/19/2024 CEA 09/19/2024 HEPATITIS PANEL, ACUTE 09/19/2024 THYROID PANEL (T4/TSH/FREE T3) CA 15-3 09/19/2024 Progress Notes * Quang DORSEYOB:1965 ( 59 yo F)Acc No.[id number]:09/19/2024 Patient: Gen DANIELLErenee :1965 A ge:59 Y S ex:Female [address] [place], [address] Subjective: * Chief Complaints: * L ab orders * Medical History: * Surgical History: * Hospitalization/Major Diagno stic Procedure: * Medications: Objective: * Vitals: * Physical Examination: Assessment: * Assessment: 1. W eight loss - R63.4 (Primary) 2 . F atigue - R53.83 Plan: * Treatment: 2. F atigue L AB: CMP - Comprehensive Metabolic Panel L AB: CBC W/AUTO DIFF L AB: CA 19-9 L AB: CEA L AB: HEPATITIS PANEL, ACUTE L AB: THYROID PANEL (T4/TSH/FREE T3) L AB: CA 15-3 * Procedure Codes: * true * Date: Generated for Joaquin verdin/Hortensia/Sarahitting on: 0 09/27/2024 07:46 AM EDT
--- OUTSIDE RECORDS SUMMARY | 2024-09-21 14:04 | XMS_ITS ---
Author Organization [facility] [place] Address [address] [place] [address] Care Team Providers Care Pharmacy Affairs Assistant Name Role Phone Prashant Porter Primary Care Provider [phone] REASON FOR VISIT cortisol level- Encounters Encounter Location Date Provider Diagnosis [facility] [address] [place] [address] 09/21/2024 Prashant Porter Plan Of Treatment No Information Progress Notes * Quang DORSEYOB:1965 ( 59 yo F)Acc No.[id number]:09/21/2024 Patient: Vicente Eugenia AVITIA :1965 A ge:59 Y S ex:Female Address:[place], [address] * true * Date: Generated for Toñoi ng/Famadang/eTransmitting on: 0 09/27/2024 07:46 AM EDT
--- OUTSIDE RECORDS SUMMARY | 2024-09-27 07:46 | XMS_ITS | Encounter Summary ---
Author Organization [facility] Address [address] [place] [address] Care Team Providers Care Melting Operator Name Role Phone Estiven Porter MD Primary Care Provider [phone] Encounter Details Date Type Department Care Team (Late st Contact Info) Description 09/22/2022 Clinisync Result Encounter [facility] External Department Unsolicited Katie Rust, DO [address] [facility] [place] [address] Social History Tobacco Use Types [...] : DR KATIE RUST . Admission #: [id number] Family : Order #: [id number] CLICK HERE TO VIEW EXAM RADIOLOGY REPORT [...] cancer at age 40. LOCATION: [facility] BREAST COMPOSITION: Almost entirely fatty. FINDINGS: [...] : DR KATIE RUST . Admission #: [id number] Family : Order #: [id number] CLICK HERE TO VIEW EXAM RADIOLOGY REPORT [...] cancer at age 40. LOCATION: [facility] BREAST COMPOSITION: Almost entirely fatty. FINDINGS: [...] on filedocumented in this encounter Care Teams Melting Operator Relationship Specialty Start Date End Date Estiven Porter MD PCP - General 09/13/22 documented as of this encounter
--- OUTSIDE RECORDS SUMMARY | 2024-09-27 07:46 | XMS_ITS | Clinical Summary ---
Author Organization [facility] [facility] tem Address [id number] [address] [place] [address] Care Team Providers Care Can Line Examiner Name Role Phone Estiven Porter MD Primary Care Provider [phone] Allergies Active Allergy Reactions Criticality Noted Date Comments Erythromycin 09/11/2020 Imipramine 09/11/2020 Sulfa (Sulfonamide Antibiotics) 08/24 Medications * This document contains information received from the source organization and may not represent a complete record from that organization. No known medications Active Problems Problem Noted Date Diagnosed Date Generalized anxiety disorder 03/28/2019 Major depressive disorder, single episode, moder ate 03/28/2019 Encounters * This document contains information received from the source organization and may not represent a complete record from that organization. Date Type Department Care Team Description 09/26/2024 Travel 09/15/2024 Travel 09/05/2024 Orders Only [facility] [address] [facility] [address] [place] [address] Ref Prov, Not In System 09/05/2024 Abstract [facility] [address] [place] [address] External, Scanning Provider 08/29/2024 Travel 08/17/2024 Travel 08/08/2024 Travel 07/03/2024 Travel from Last 3 Months Family History Medical History Relation Name Comments Diabetes type II Father Heart disease Father Stroke Mother Relation Name Status Comments Father Mother Social History Tobacco Use Types Packs/Day Years Used Date Smoking Tobacco: Never Smokeless Tobacco: Never Childcare Answer Date Recorded Childcare Unknown 10/05/2018 Employment Answer Date Recorded Employment Unknown 10/05/2018 Hunger Screening Answer Date Recorded Within the past 12 months we worried whether our food would run out before we got money to buy more. Never True 09/20/2024 Within the past 12 months th e food we bought just didn't last and we didn't have money to get more. Never True 09/20/2024 Purpose - Life Answer Date Recorded Purpose and direction in life Unknown Comments Unknown Sex and Gender Information Value Date Recorded Sex Assigned at Not on file Legal Sex Female 11:43 AM EDT Gender Identity Not on file Sexual Orientation Not on file Last Filed Vital Signs Vital Sign Reading Time Taken Comments Blood Pressure 158/93 09/11/2020 12:06 PM EDT Pulse 79 09/11/2020 12:06 PM EDT Temperature 36.5 C (97.7 F) 09/11/2020 2:43 PM EDT Respiratory Rate 16 09/11/2020 12:06 PM EDT Oxygen Saturation 100% 09/11/2020 12:10 PM EDT Inhaled Oxygen Concentration - - Weight 71.2 kg (157 lb) 09/11/2020 12:06 PM EDT Height 160 cm (5' 3 ) 09/11/2020 12:06 PM EDT Body Mass Index 27.81 09/11/2020 12:06 PM EDT Plan of Treatment Upcoming Encounters Date Type Department Care Team (Late st Contact Info) Description 01/30/2025 1:00 PM EDT Office Visit [facility] [address] [facility] [address] [place] [phone] Allyson Thomas MD [address] [facility] [address] [place] [address] Health Maintenance Due Date Last Done Comments Depression Screening 1977 Tobacco Screening 1977 Adult BMI Screening 08/19/1983 Pap Smear 1986 Zoster (Shingles) Vaccine (1 of 2) 08/19/2015 Influenza Vaccine 12/25/2024 DTaP,Tdap and Td Vaccines (2 - Td or Tdap) 10/05/2032 10/05/2022 Medical Devices Not on file Procedures Procedure Name Priority Date/Time Associated Diagnosis Comments MULTIPLE LABS Routine 09/05/2024 1:53 PM EDT from Last 3 Months Results * Multiple labs (09/05/2024 1:53 PM EDT) us Not In System Ref Prov [facility] Final Res ult from Last 3 Months Insurance [employer] Care Teams Can Line Examiner Relationship Specialty Start Date End Date Estiven Porter MD PCP - General Family Medicine 03/22/19
--- OUTSIDE RECORDS SUMMARY | 2024-09-27 07:46 | XMS_ITS | Encounter Summary ---
Author Organization [employer] Address [id number] [address] [place] [address] Care Team Providers Care Transonic Engineer Name Role Phone Estiven Porter MD Primary Care Provider [phone] Encounter Details Date Type Department Care Team (Latest Contact Info) Description 09/26/2024 Travel Social History Tobacco Use Types Packs/Day [...] [facility] [address] [place] [phone] Allyson Thomas MD [address] [facility] [address] [place] [address] documented as of this encounter Visit Diagnoses Not on filedocumented in this encounter Care Teams Transonic Engineer Relationship Specialty Start Date End Date Estiven Porter MD PCP - General Family Medicine 03/22/19 documented as of this encounter
--- OUTSIDE RECORDS SUMMARY | 2024-09-27 07:46 | XMS_ITS | Clinical Summary ---
Author Organization [facility] Address [address] [place] [address] Care Team Providers Care Power Press Tender Name Role Phone Estiven Porter MD Primary Care Provider [phone] Allergies Active Allergy Reactions Criticality Noted Date [...] Ended) 2024 Insurance [employer] Care Teams Power Press Tender Relationship Specialty Start Date End Date Estiven Porter MD PCP - General Family Medicine 02/25/16
--- OUTSIDE RECORDS SUMMARY | 2024-09-27 07:46 | XMS_ITS | Encounter Summary ---
Author Organization [facility] Address [address] [place] [address] Care Team Providers Care Socket Puller Name Role Phone Estiven Porter MD Primary Care Provider [phone] Encounter Details Date Type Department Care Team (Late st Contact Info) Description 09/15/2022 Orders Only [facility] [address] [facility] [place] [address] Deepti Palacios LPN Social History [...] on filedocumented in this encounter Care Teams Socket Puller Relationship Specialty Start Date End Date Estiven Porter MD PCP - General 09/13/22 documented as of this encounter
--- OUTSIDE RECORDS SUMMARY | 2024-09-27 07:46 | XMS_ITS | Patient Health Record ---
Author Organization [facility] in [place] Address [address] [place] [address] Care Team Providers Care Mail Handler Assistant Name Role Phone Prashant Porter Primary Care Provider Elmira Castro [phone] Allergies Allergen (clinical drug ingredient) Drug/Non Drug [...] Active Results Component Value Reference Range Notes BNP Reviewed date:08/03/2024 12:13:06 PM Interpretation: Performing Lab: Notes/Report: [facility] , NT Pro B Type Natriuretic Pept 83.0 <=900.0 pg/mL Performing Lab: see note ML - [facility] LB Cortisol Reviewed date:09/21/2024 06:05:26 PM Interpretation: Performing Lab: Notes/Report: [facility] , Cortisol 21.0 6.2-19.4 ug/dL Please Note: The reference interval and flagging for this test is for an AM collection. If this is a PM collection please use: Cortisol PM: 2.3-11.9 Performed at: - [facility] [address] [id number] Transformer Tester: Ti Macais PhD, Phone: [phone] Performing Lab: see note - [facility] LB Urine Culture, Routine Reviewed date:12/15/2023 08:05:55 PM [...] SHI Status Urine Culture, Routine Performed at[facility]rine Culture, Routine Organism: Gram negative stephanie : O:GNR Isolated O:KLEBPN Isolated Organism: 1.2 Antibiotic Interpretation SHI Status Urine Culture, Routine [address] [place], [place] [phone] Urine Culture, Routine Organism: Gram negative stephanie : O:GNR Isolated O:KLEBPN Isolated Organism: 1.2 Antibiotic Interpretation SHI Status Urine Culture, Routine Transformer Tester: Donis Macias PhD, Phone: [phone] Urine Culture, Routine Organism: Gram negative stephanie [...] F Urine Culture, Routine Organism: Gram negative tsephanie : O:GNR Isolated O:KLEBPN Isolated Organism: 1.2 [...] LC - [facility] LB SEE REPORT - Night Order Selector Id information not found for OBX-specific oil producer legend PROF 14(COMP METB) Reviewed date:12/14/2023 03:09:01 PM Interpretation: Performing Lab: Notes/Report: [facility] , Sodium 141 136-145 mmol/L Potassium 4.2 [...] Globulin Ratio 1.2 Performing Lab: see note - [facility] LB UA RANDOM W or MICROSCOPIC Reviewed date:12/28/2023 08:52:53 PM Interpretation: Performing Lab: Notes/Report: [facility] , Color Urine LT. YELLOW YELLOW Clarity Urine CLEAR CLEAR Specific Filer Urine 1.010 1.005-1.025 pH Urine 6.0 5.0-9.0 [...] #/LPF Performing Lab: see note ML - [facility] LB Urine Culture, Routine Reviewed date:01/02/2024 08:39:52 PM Interpretation: Performing Lab: Notes/Report: [facility] , Urine Culture, Routine See Below For Report Urine Culture, Routine Urine Culture, Routine No growth Urine Culture, Routine Urine Culture, Routine Performed at: [facility] Urine Culture, Routine Urine Culture, Routine [address] [place] [id number] Urine Culture, Routine Urine Culture, Routine Transformer Tester: Donis Macias PhD, Phone: [phone] Urine Culture, Routine Performing Lab: see note LC - [facility] LB SEE REPORT - Night Order Selector Id information not found for OBX-specific oil producer legend Urine Culture, Routine Reviewed date:01/09/2024 11:13:11 [...] Culture, Routine Urine Culture, Routine Performed at: [facility] Urine Culture, Routine Urine Culture, Routine [address] [place] [phone] Urine Culture, Routine Urine Culture, Routine Transformer Tester: Donis Macias PhD, Phone: [phone] Urine Culture, Routine Performing Lab: see note - [facility] LB SEE REPORT - Night Order Selector Id information not found for OBX-specific oil producer legend CA 30 day event monitor Reviewed date:02/27/2024 11:32:24 AM Interpretation: Performing Lab: Notes/Report: Source Facility: [place] [address] [place] [address] Cardiology Report Signed Patient: YULIA DORSEY MR#: [id number] : 1965 Acct:[id number] Age/Sex: 58 / F ADM Date: 01/14/24 Loc: CARD Attending Dr: John Porter M.D. Ordering Physician: John Porter M.D. Date of Service: 01/14/24 Procedure(s): CA 30 day event monitor Accession Number(s): [id number] cc: John Porter M.D. 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 Signed By: 02/25/2470002/25/24700 DD/ 6 TD/TT: Tour Sales Representative: [place] [address] Cardiology Report Signed Patient: YULIA DORSEY MR#: [id number] : 1965 Acct:[id number] Age/Sex: 58 / F ADM Date: 01/14/24 Loc: CARD Attending Dr: Kristopher Porter M.D. Ordering Physician: John Porter M.D. Date of Service: 01/14/24 Procedure(s): CA 30 day event monitor Accession Number(s): [id number] cc: John Porter M.D. 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 Signed By: 02/25/2470002/25/24700 DD/ 6 TD/TT: Tour Sales Representative: SILVA T3 Reviewed date:08/03/2024 12:13:06 PM Interpretation: Performing Lab: Notes/Report: [facility] , Free T3 3.07 2.18-3.98 pg/mL Performing Lab: see note ML - [facility] LB LIPID PROFILE Reviewed date:08/03/2024 12:13:06 PM Interpretation: Performing Lab: Notes/Report: [facility] , Triglycerides 39 <=150 mg/dL Cholesterol 212 [...] RISK Performing Lab: see note ML - [facility] LB PROF 14(COMP METB) Reviewed date:08/03/2024 12:13:06 PM Interpretation: Performing Lab: Notes/Report: [facility] , Sodium 143 136-145 mmol/L Potassium 4.2 [...] Performing Lab: see note ML - [facility] LB T4 Reviewed date:08/03/2024 12:13:06 PM Interpretation: Performing Lab: Notes/Report: [facility] , T4 Thyroxine 9.10 4.80-13.90 ug/dL Performing Lab: see note ML - [facility] LB TSH Reviewed date:08/03/2024 12:13:06 PM Interpretation: Performing Lab: Notes/Report: [facility] , Thyroid Stimulating Hormone 0.941 0.358-3.740 uIU/mL Performing Lab: see note ML - [facility] LB Troponin I High Sensitivity Reviewed date:08/03/2024 12:13:06 PM Interpretation: Performing Lab: Notes/Report: [facility] , Troponin I High Sensitivity <4.0 4.0-51.3 [...] Performing Lab: see note ML - [facility] LB GLYCOHEMOGLOBIN A1C Reviewed date:08/03/2024 12:13:06 PM Interpretation: Performing Lab: Notes/Report: [facility] , Glycohemoglobin A1C 5.9 4.5-6.2 % ADA RECOMMENDED LIMIT 4.0 - 6.0 ADA THERAPEUTIC TARGET < 7.0 ACTION SUGGESTED > 7.0 Estimated Average Glucose 123 Performing Lab: see note ML - [facility] LB CBC AUTO DIFF Reviewed date:08/03/2024 12:13:06 PM Interpretation: Performing Lab: Notes/Report: [facility] , White Blood Count 4.6 4.0-11.0 10 [...] Performing Lab: see note ML - [facility] LB MM tomosynthesis screening B I Reviewed date:06/14/2024 07:21:54 PM Interpretation: Performing Lab: Notes/Report: Source Facility: [facility] [place] [address] [place] [address] Mammography Report Signed Patient: YULIA DORSEY MR#: [id number] : 1965 Acct:[id number] Age/Sex: 58 / F ADM Date: 05/30/24 Loc: MAMMO Attending Dr: Katie Rust D.O. Ordering Physician: Katie Rust D.O. Results: Date of Service: 05/30/24 Follow Up: Procedure(s): MM tomosynthesis screening BI Accession Number(s): [id number] cc: Katie Rust D.O.; John Porter M.D. Patient Name: YULIA DORSEY MR#: [id number] : 1965 Exam Date: 05/30/2024 Ordering Doctor: [...] breast cancer at age 40. LOCATION: [facility] BREAST COMPOSITION: The breasts are almost entirely [...] Signed By: 05/30/24 1635 DD/ 1634 TD/TT: Tour Sales Representative: [place] [address] Mammography Report Signed Patient: YULIA DORSEY MR#: [id number] : 1965 Acct:[id number] Age/Sex: 58 / F ADM Date: 05/30/24 Loc: MAMMO Attending Dr: Katie Rust D.O. Ordering Physician: Katie Rust D.O. Results: Date of Service: 08/18 Follow Up: Procedure(s): MM tomosynthesis screening BI Accession Number(s): [id number] cc: Katie Rust D.O. ; John Porter M.D. Patient Name: YULIA DORSEY MR#: [id number] : 1965 Exam Date: 05/30/2024 Ordering Doctor: [...] breast cancer at age 40. LOCATION: [facility] BREAST COMPOSITION: The breasts are almost [...] Signed By: 05/30/24 1635 DD/ 1634 TD/TT: Tour Sales Representative: Urine Culture, Routine Reviewed date:05/28/2024 03:45:49 PM [...] Culture, Routine Urine Culture, Routine Performed at: [facility] Urine Culture, Routine Urine Culture, Routine [address], [place] [phone] Urine Culture, Routine Urine Culture, Routine Transformer Tester: Donis Macias PhD, Phone: [phone] Urine Culture, Routine Performing Lab: see note LC - [facility] LB SEE REPORT - Night Order Selector Id information not found for OBX-specific oil producer legend UA RANDOM W or MICROSCOPIC Reviewed date:05/25/2024 07:58:02 PM Interpretation: Performing Lab: Notes/Report: [facility] , Color Urine LT. YELLOW YELLOW Clarity Urine CLEAR CLEAR Specific Filer Urine 1.015 1.005-1.025 pH Urine 5.5 5.0-9.0 [...] NO Performing Lab: see note ML - [facility] LB XR chest 2V Reviewed date:03/30/2024 12:46:52 PM Interpretation: Performing Lab: Notes/Report: Source Facility: [facility] [place] [address] [place] [address] XRay Report Signed Patient: YULIA DORSEY MR#: [id number] : 1965 Acct:[id number] Age/Sex: 58 / F ADM Date: 03/29/24 Loc: RAD Attending Dr: John Porter M.D. Ordering Physician: John Porter M.D. Date of Service: 03/29/24 Procedure(s): XR chest 2V Accession Number(s): [id number] cc: John Porter M.D. [address] [address] Patient Name: YULIA DORSEY MRN: [facility]:[id number] date: 1965 Sex: F Assigned Patient Location: RAD Current Patient Location: Accession/Order Number: [id number] Exam Date: 03/29/2024 15:25 Report Date: 03/30/2024 [...] M.D. Signed By: 03/30/2440 DD/ 7 TD/TT: Tour Sales Representative: [place] [address] XRay Report Signed Patient: YULIA DORSEY MR#: [id number] : 1965 Acct:[id number] Age/Sex: 58 / F ADM Date: 03/29/24 Loc: RAD Attending Dr: Kristopher Porter M.D. Ordering Physician: John Porter M.D. Date of Service: 03/29/24 Procedure(s): XR chest 2V Accession Number(s): [id number] cc: John Porter M.D. [place] [id number] Patient Name: YULIA DORSEY MRN: [facility]:[id number] date: 1965 Sex: F Assigned Patient Location: [facility] Current Patient Location: Accession/Order Numb er: [id number] Exam Date: 15:25 Report Date: 03/30/2024 07:38 [...] Bhavik Alvarez M.D. Signed By: 03/30/2440 DD/ 7 TD/TT: Tour Sales Representative: Urine Culture, Routine Reviewed date:01/31/2024 09:32:29 AM Interpretation: Performing Lab: Notes/Report: [facility] , Urine Culture, Routine See Below For Report Urine Culture, Routine Urine Culture, Routine Mixed urogenital umu Urine Culture, Routine Urine Culture, Routine Less than 10,000 colonies/mL Urine Culture, Routine Urine Culture, Routine Performed at: - [facility] Urine Culture, Routine Urine Culture, Routine [address], [place] [phone] Urine Culture, Routine Urine Culture, Routine Transformer Tester: Donis Macias PhD, Phone: [phone] Urine Culture, Routine Performing Lab: see note LC - [facility] LB SEE REPORT - Night Order Selector Id information not found for OBX-specific oil producer legend UA RANDOM W or MICROSCOPIC Reviewed date:01/31/2024 08:25:57 PM Interpretation: Performing Lab: Notes/Report: [facility] , Color Urine LT. YELLOW YELLOW Clarity Urine CLEAR CLEAR Specific Filer Urine <=1.005 1.005-1.025 pH Urine 6.0 5.0-9.0 [...] #/LPF Performing Lab: see note ML - [facility] LB ECG 12 lead Reviewed date:01/09/2024 11:13:11 AM Interpretation: Performing Lab: Notes/Report: Source Facility: [facility]-[address] [place] [address] Electrocardiograph Report Signed Patient: YULIA DORSEY MR#: [id number] : 1965 Acct:[id number] Age/Sex: 58 / F ADM Date: 01/07/24 Loc: SURGOUT Attending Dr: Katie Rust D.O. Ordering Physician: Katie Rust D.O. 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 Signed By: 01/07/24 1827 DD/ 2 TD/TT: Tour Sales Representative: [place] [address] Electrocardiograph Report Signed Patient: YULIA DORSEY MR#: [id number] : 1965 Acct:[id number] Age/Sex: 58 / F ADM Date: 01/07/24 Loc: SURGOUT Attending Dr: Katie Rust D.O. Ordering Physician: Katie Rust D.O. 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 Signed By: 01/07/241826 DD/ 2 TD/TT: Tour Sales Representative: PAULETTE SEVERINO HCG Reviewed date:01/09/2024 11:13:11 AM Interpretation: Performing Lab: Notes/Report: [facility] , HCG Quantitative <1 5-50 0.2-1 WEEK 50-500 1-2 WEEKS 100-5,000 2-3 WEEKS 500-10,000 3-4 WEEKS 1,000-50,000 4-5 WEEKS 10,000-100,000 5-6 WEEKS 15,000-200,000 6-8 WEEKS 10,000-100,000 2-3 MONTHS Performing Lab: see note ML - [facility] LB CBC AUTO DIFF Reviewed date:01/09/2024 11:13:11 AM Interpretation: Performing Lab: Notes/Report: [facility] , White Blood Count 5.1 4.0-11.0 10 [...] Performing Lab: see note ML - [facility] LB UA RANDOM W or MICROSCOPIC Reviewed date:01/06/2024 09:36:14 PM Interpretation: Performing Lab: Notes/Report: [facility] , Color Urine LT. YELLOW YELLOW Clarity Urine CLEAR CLEAR Specific Filer Urine <=1.005 1.005-1.025 pH Urine 7.0 5.0-9.0 [...] ORDERED Performing Lab: see note ML - [facility] LB XR abdomen 1V Reviewed date:01/03/2024 08:40:59 PM Interpretation: Performing Lab: Notes/Report: Source Facility: [facility] [place] [address] XRay Report Signed Patient: YULIA DORSEY MR#: [id number] : 1965 Acct:[id number] Age/Sex: 58 / F ADM Date: 01/01/24 Loc: US Attending Dr: Bessie Faust NP Ordering Physician: Bessie Faust NP Date of Service: 01/01/24 Procedure(s): XR abdomen 1V Accession Number(s): [id number] cc: Bessie Faust NP; John Porter M.D. [place] [address] Patient Name: YULIA DORSEY MRN: [id number] date: 1965 Sex: F Assigned Patient Location: Current Patient Location: Accession/Order Number: [id number] Exam Date: 01/01/2024 12:36 Report Date: 01/03/2024 [...] Signed By: 01/03/24 1018 DD/ 1016 TD/TT: Tour Sales Representative: [place] [address] XRay Report Signed Patient: YULIA DORSEY MR#: [id number] : 1965 Acct:[id number] Age/Sex: 58 / F ADM Date: 01/01/24 Loc: US Attending Dr: Bessie Faust NP Ordering Physician: Bessie Faust NP Date of Service: 01/01/24 Procedure(s): XR abd omen 1V Accession Number(s): [id number] cc: Bessie Faust STAFF PHYSICAL THERAPY ASSISTANT; John Porter M.D. [address] [place] [address] Patient Name: YULIA DORSEY MRN: [id number] date: 1965 Sex: F Assigned Patient Location: US Current Patient Loca tion: US Accession/Order Numb er: [id number] Exam Date: 01/01/2024 12:36 Report Date: 01/03/2024 [...] Signed By: 01/03/24 1018 DD/ 1016 TD/TT: Tour Sales Representative: PROF Mariee(COMP METB) Reviewed date:12/29/2023 07:26:32 PM Interpretation: Performing Lab: Notes/Report: [facility] , Sodium 139 136-145 mmol/L Potassium 4.2 [...] 1.1 Performing Lab: see note ML - [facility] LB CBC AUTO DIFF Reviewed date:12/28/2023 08:52:53 PM Interpretation: Performing Lab: Notes/Report: [facility] , White Blood Count 8.1 4.0-11.0 10 [...] 10 3/uL Performing Lab: see note - [facility] LB AMYLASE Reviewed date:12/29/2023 07:26:32 PM Interpretation: Performing Lab: Notes/Report: [facility] , Amylase 81 25-115 U/L Performing Lab: see note - [facility] LB Urine Culture, Routine Reviewed date:12/24/2023 12:41:09 PM Interpretation: Performing Lab: Notes/Report: [facility] , Urine Culture, Routine See Below For Report Urine Culture, Routine Urine Culture, Routine Mixed urogenital umu Urine Culture, Routine Urine Culture, Routine 10,000-25,000 col nelson forming units per mL Urine Culture, Routine Urine Culture, Routine Performed at: - [facility] Urine Culture, Routine Urine Culture, Routine [address], [place] [phone] Urine Culture, Routine Urine Culture, Routine Transformer Tester: Donis Macias PhD, Phone: [phone] Urine Culture, Routine Performing Lab: see note LC - [facility] LB SEE REPORT - Night Order Selector Id information not found for OBX-specific oil producer legend UA RANDOM W or MICROSCOPIC Reviewed date:12/21/2023 04:03:43 PM Interpretation: Performing Lab: Notes/Report: [facility] , Color Urine LT. YELLOW YELLOW Clarity Urine CLEAR CLEAR Specific Filer Urine <=1.005 1.005-1.025 pH Urine 6.0 5.0-9.0 [...] ORDERED Performing Lab: see note ML - [facility] LB CBC AUTO DIFF Reviewed date:12/14/2023 03:09:01 PM Interpretation: Performing Lab: Notes/Report: [facility] , White Blood Count 6.0 4.0-11.0 10 [...] Performing Lab: see note ML - [facility] LB US renal bladder Reviewed date:12/08/2023 07:54:20 PM Interpretation: Performing Lab: Notes/Report: Source Facility: [facility] [place] [address] [place] [address] Ultrasound Report Signed Patient: YULIA DORSEY MR#: [id number] : 1965 Acct:[id number] Age/Sex: 58 / F ADM Date: 12/07/23 Loc: US Attending Dr: John Porter M.D. Ordering Physician: John Porter M.D. Date of Service: 12/07/23 Procedure(s): US renal bladder Accession Number(s): [id number] cc: John Porter M.D. [address] [address] Patient Name: YULIA DORSEY MRN: [id number] date: 1965 Sex: F Assigned Patient Location: US Current Patient Location: Accession/Order Number: [id number] Exam Date: 12/07/2023 07:52 Report Date: 12/08/2023 [...] Dictated By: Ellyn Alvarez M.D. Signed By: 12/08/23 0742 DD/ TD/TT: Tour Sales Representative: [place] [address] Ultrasound Report Signed Patient: YULIA DORSEY MR#: [id number] : 1965 Acct:[id number] Age/Sex: 58 / F ADM Date: 12/07/23 Loc: US Attending Dr: Kristopher Porter M.D. Ordering Physician: John Porter M.D. Date of Service: 12/07/23 Procedure(s): US amber al bladder Accession Number(s): [id number] cc: John Porter M.D. [place] [id number] Patient Name: YULIA DORSEY MRN: [id number] date: 1965 Sex: F Assigned Patient Location: US Current Patient Location: Accession/Order Numb er: [id number] Exam Date: 12/07/2023 07:52 Report Date: 12/08/2023 [...] Dictated By: Bhavik Alvarez M.D. Signed By: 12/08/23 0742 DD/ TD/TT: Tour Sales Representative: YAZMIN Webster or MICROSCOPIC Reviewed date:12/08/2023 07:54:20 PM Interpretation: Performing Lab: Notes/Report: [facility] , Color Urine LT. YELLOW YELLOW Clarity Urine SL CLOUDY CLEAR Specific Filer Urine 1.025 1.005-1.025 pH Urine 6.0 5.0-9.0 [...] YES Performing Lab: see note ML - [facility] LB PROF 14(COMP METB) Reviewed date:11/25/2023 08:03:23 PM Interpretation: Performing Lab: Notes/Report: [facility] , Sodium 139 136-145 mmol/L Potassium 4.0 [...] 1.1 Performing Lab: see note ML - [facility] LB US renal BI Reviewed date:01/03/2024 08:40:59 PM Interpretation: Performing Lab: Notes/Report: Source Facility: [place] [address] [place] [address] Ultrasound Report Signed Patient: YULIA DORSEY MR#: [id number] : 1965 Acct:[id number] Age/Sex: 58 / F ADM Date: 01/01/24 Loc: US Attending Dr: Bessie Faust NP Ordering Physician: Bessie Faust NP Date of Service: 01/01/24 Procedure(s): US renal BI Accession Number(s): [id number] cc: Bessie Faust NP; John Porter M.D. [address] [place] [address] Patient Name: YULIA DORSEY MRN: [id number] date: 1965 Sex: F Assigned Patient Location: US Current Patient Location: Accession/Order Number: [id number] Exam Date: 01/01/2024 12:40 Report Date: 01/03/2024 [...] By: Ellyn Alvarez M.D. Signed By: 01/03/24 0749 DD/ TD/TT: Tour Sales Representative: [place] [address] Ultrasound Report Signed Patient: YULIA DORSEY MR#: [id number] : 1965 Acct:[id number] Age/Sex: 58 / F ADM Date: 01/01/24 Loc: US Attending Dr: Bessie Faust NP Ordering Physician: Bessie Faust NP Date of Service: 01/01/24 Procedure(s): US renal BI Accession Number(s): [id number] cc: Bessie Faust STAFF PHYSICAL THERAPY ASSISTANT; John Porter M.D. [place] [address] Patient Name: YULIA DORSEY MRN: [id number] date: 1965 Sex: F Assigned Patient Location: US Current Patient Location: Accession/Order Numb er: [id number] Exam Date: 01/01/2024 12:40 Report Date: 01/03/2024 [...] By: Bhavik Alvarez M.D. Signed By: 01/03/24 0749 DD/ TD/TT: Tour Sales Representative: CHEM 8 (BAS METB) Reviewed date:01/29/2024 09:30:43 PM Interpretation: Performing Lab: Notes/Report: [facility] , Sodium 139 136-145 mmol/L Potassium 3.8 [...] mg/dL Performing Lab: see note ML - [facility] LB GLYCOHEMOGLOBIN A1C Reviewed date:01/29/2024 09:30:43 PM Interpretation: Performing Lab: Notes/Report: [facility] , Glycohemoglobin A1C 5.7 4.5-6.2 % ADA RECOMMENDED LIMIT 4.0 - 6.0 ADA THERAPEUTIC TARGET < 7.0 ACTION SUGGESTED > 7.0 Estimated Average Glucose 117 Performing Lab: see note ML - [facility] LB PROF 14(COMP METB) Reviewed date:08/27/2024 12:30:00 PM Interpretation: Performing Lab: Notes/Report: [facility] , Sodium 142 136-145 mmol/L Potassium 3.9 [...] 1.1 Performing Lab: see note ML - [facility] LB CORTISOL AM Reviewed date:08/27/2024 05:04:20 PM Interpretation: Performing Lab: Notes/Report: [facility] , Cortisol - AM 22.3 6.2-19.4 ug/dL Performed at: - [facility] [address] [id number] Transformer Tester: Ti Macias PhD, Phone: [phone] Performing Lab: see note - [facility] LB PROF 14(COMP METB) Reviewed date:12/21/2023 04:03:43 PM Interpretation: Performing Lab: Notes/Report: [facility] , Sodium 140 136-145 mmol/L Potassium 4.2 [...] Globulin Ratio 1.1 Performing Lab: see note - [facility] LB CBC AUTO DIFF Reviewed date:12/21/2023 04:03:43 PM Interpretation: Performing Lab: Notes/Report: [facility] , White Blood Count 6.5 4.0-11.0 10 [...] 3/uL Performing Lab: see note ML - [facility] LB AMYLASE Reviewed date:12/21/2023 04:03:43 PM Interpretation: Performing Lab: Notes/Report: [facility] , Amylase 40 25-115 U/L Performing Lab: see note ML - [facility] LB Cortisol Reviewed date:09/03/2024 06:17:14 PM Interpretation: Performing Lab: [facility]Report: [facility] Cortisol 25.7 6.2-19.4 ug/dL Please Note: The reference interval and flagging for this test is for an AM collection. If this is a PM collection please use: Cortisol PM: 2.3-11.9 Performed at: [address] [id number] Transformer Tester: Ti Macias PhD, Phone: [phone] Performing Lab: see note LC - [facility] MR head/brain wo con Reviewed date:08/09/2024 08:03:31 PM Interpretation: Performing Lab: Notes/Report: Source Facility: [place] [address] Magnetic Resonance Report Signed Patient: YULIA DORSEY MR#: [id number] : 1965 Acct:[id number] Age/Sex: 58 / F ADM Date: 08/09/24 Loc: MRI Attending Dr: John Porter M.D. Ordering Physician: John Porter M.D. Date of Service: 08/09/24 Procedure(s): MR head/brain wo con Accession Number(s): [id number] cc: John Porter M.D. [place] [address] Patient Name: YULIA DORSEY MRN: [id number] date: 1965 Sex: F Assigned Patient Location: MRI Current Patient Location: MRI Accession/Order Number: [id number] Exam Date: 08/09/2024 09:53 Report Date: 08/09/2024 [...] Olivia Gutierrez M.D.08/09/2024 10:01 AM Dictation Location: [place] [address] Electronically authenticated by: [id number] Y Date: 08/09/2024 10:01 Dictated By: Olivia Gutierrez M.D. Signed By: 08/09/24 1004 DD/ 1001 TD/TT: Tour Sales Representative: [place] [address] Magnetic Resonance Report Signed Patient: YULIA DORSEY MR#: [id number] : 1965 Acct:[id number] Age/Sex: 58 / F ADM Date: 08/09/24 Loc: MRI Attending Dr: Kristopher Porter M.D. Ordering Physician: John Porter M.D. Date of Service: 08/09/24 Procedure(s): MR head/brain wo con Accession Number(s): [id number] cc: John Porter M.D. [place] [address] Patient Name: YULIA DORSEY MRN: [id number] date: 1965 Sex: F Assigned Patient Location: MRI Current Patient Loca tion: MRI Accession/Order Numb er: [id number] Exam Date: 08/09/2024 09:53 Report Date: 08/09/2024 [...] Olivia Gutierrez M.D.08/09/2024 10:01 AM Dictation Location: [place] [address] Electronically authenticated by: [id number] Y Date: 08/09/2024 10:01 Dictated By: Olivia Gutierrez M.D. Signed By: 08/09/24 1004 DD/ 1001 TD/TT: Tour Sales Representative: CT soft tissue neck w con Reviewed date:05/31/2024 12:29:26 PM Interpretation: Performing Lab: Notes/Report: Source Facility: [place] [address] CT Scan Report Signed Patient: YULIA DORSEY MR#: [id number] : 1965 Acct:[id number] Age/Sex: 58 / F ADM Date: 05/30/24 Loc: CT Attending Dr: John Porter M.D. Ordering Physician: John Porter M.D. Date of Service: 05/30/24 Procedure(s): CT soft tissue neck wo con Accession Number(s): [id number] cc: John Porter M.D. [place] [address] Patient Name: YULIA DORSEY MRN: [id number] date: 1965 Sex: F Assigned Patient Location: CT Current Patient Location: Accession/Order Number: [id number] Exam Date: 05/30/2024 15:59 Report Date: 05/31/2024 [...] Signed By: 05/31/24 1206 DD/ 1204 TD/TT: Tour Sales Representative: [place] [address] CT Scan Report Signed Patient: YULIA DORSEY MR#: [id number] : 1965 Acct:[id number] Age/Sex: 58 / F ADM Date: 05/30/24 Loc: CT Attending Dr: Kristopher Porter M.D. Ordering Physician: John Porter M.D. Date of Service: 05/30/24 Procedure(s): CT sof t tissue neck wo con Accession Number(s): [id number] cc: John Porter M.D. [place] [address] Patient Name: YULIA DORSEY MRN: [id number] date: 1965 Sex: F Assigned Patient Location: CT Current Patient Location: Accession/Order Numb er: [id number] Exam Date: 05/30/2024 15:59 Report Date: 05/31/2024 [...] Signed By: 05/31/24 1206 DD/ 1204 TD/TT: Tour Sales Representative: Reason For Referral Diagnosis 1 Elevated cortisol le michelle (R79.89) Referral Organization [facility] Referring Provider First Name Prashant Referring Provider Last Name [facility] Referring Provider [facility] Referred Provider Allyson Thomas Referred Provider Specialty Internal Med [place] Referral Priority Routine Diagnosis 1 Elevated cortisol le michelle (E27.0) Referral Organization [facility] Referring Provider First Name Prashant Referring Provider Last Name [facility] Referring Provider [facility] Referred Provider Gala Flores Referred Provider Specialty [...] W/U Status Risk Notes Problem Streptococcal pharyngitis (50141504) Streptococcal pharyngitis (J02.0) Active confirmed Problem 60986284 Other specified acquired deformities of left lower leg (M21.862) Active confirmed Problem Palpitations (05811067) Palpitations (R00.2) Active confirmed Problem Snoring (39194516) Snoring (R06.83) Active conf irmed Problem 404492737 Paresthesia of skin (R20.2) Active confirmed Problem Neck sprain (518166523) Strain of muscle, fascia and tendon at neck level, initial encounter (S16.1XXA) Active confirmed Problem Contusion of right elbow (17460000995597757 ) Contusion of right elbow, initial encounter (S50.01XA) Active confirmed Problem Chest pain (42601649) Chest pain (R07.9) Active confirmed Problem Fatigue (30453543) Fatigue (R53.83) Active conf irmed Problem Chronic obstructive pulmonary disease (02139885) Chronic obstructive pulmonary disease (J44.9) Active confirmed Problem Hypertension (96796866) Hypertension (I10) Active confirmed Problem Chronic obstructive pulmonary disease (68655804) Chronic obstructive pulmonary disease (COPD) (J44.9) Active confirmed Problem Anxiety (66981362) Anxiety (F41.9) Active confi rmed Problem Neck pain (18241800) Neck pain (M54.2) Active confirmed Problem Arthritis (6071729) Arthritis (M19.90) Active confirmed Problem Obstructive sleep apnea (62450294) Obstructive sleep apnea (G47.33) Active confirmed Problem Insomnia (211083126) Insomnia (G47.00) Active confirmed Problem Hiatal hernia (90965233) Hiatal hernia (K44.9) Active confirmed Problem Eczema (96149584) Eczema (L30.9) Active confirm ed Problem Migraine (75111712) Migraine (G43.909) Active confirmed Problem Pain in limb (27513534) Pain in joint, hand (M79.643) Active confirmed Problem Sinusitis (38115712) Sinusitis (J32.9) Active confirmed Problem Hot flashes (874711613) Hot flashes (N95.1) Active confirmed Problem Kidney stone (88772763) Kidney stones (N20.0) Active confirmed Problem Allergic rhinitis (16325602) Allergic rhinitis (J30.9) Active confirmed Problem Constipation (77236638) Constipation (K59.00) Active confirmed Problem Menorrhagia (074341540) Menorrhagia (N92.0) Active confirmed Problem Acute bronchitis (35514995) Acute bronchitis (J20.9) Active confirmed Problem Well adult (216377455) Well adult (Z00.00) Active confirmed Problem Hypoglycemia (736545898) Hypoglycemia (E16.2) Active confirmed Problem Mass of neck (637815261) Neck mass (R22.1) Active confirmed Problem Pre-surgery evaluation (063071898) Pre-op exam (Z01.818) Active confirmed Problem Seasonal allergic rhinitis (070214181) Seasonal allergic rhinitis (J30.2) Active confirmed Problem Meniere disease (59031312) Meniere disease (H81.09) Active confirmed Problem Near syncope (978283545) Near syncope (R55) Active confirmed Problem Contact dermatitis (25656392) Contact dermatitis (L25.9) Active confirmed Problem Gastroenteritis (84953778) Gastroenteritis (K52.9) Active confirmed Problem Iron deficiency anemia (65845559) Anemia, iron deficiency (D50.9) Active confirmed Problem Aphthous ulcer (499398289) Aphthous ulcer (K12.0) Active confirmed Problem 805038736 Bilateral edema of lower extremity (R60.0) Active confirmed Problem Methicillin resistant Staphylococcus aureus (011894882) MRSA (methicillin resistant Staphylococcus aureus) (A49.02) Active confirmed Problem Duodenitis (82483507) Duodenitis (K29.80) Active confirmed Problem Head contusion (S00.93XA) Active confirmed Problem Facial palsy (735611481) 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) Active confirmed Problem Viral exanthem (46955747) Viral exanthem (B09) Active confirmed Problem Panic attack (973813166) Panic attack (F41.0) Active confirmed Problem Increased cortisol level (158832658) Elevated cortisol level (E27.0) Active confirmed Problem Essential hypertension (09841314) Essential (primary) hypertension (I10) Active confirmed Problem Breakthrough bleeding (73215420) Breakthrough bleeding (N92.1) Active confirmed Problem Peripheral vertigo (13248825) Peripheral vertigo (H81.399) Active confirmed Problem Acute urinary tract infection (642129599) Acute UTI (N39.0) Active confirmed Problem Chronic obstructive airway disease (31578203) Chronic obstructive airway disease (J44.9) Active confirmed Problem Gastro-esophageal reflux disease (715097513) Gastro-esophageal reflux disease (K21.9) Active confirmed Problem Shoulder impingement syndrome (638797517) Shoulder impingement syndrome (M75.40) Active confirmed Problem Irregular intermenstrual bleeding (81601839) Irregular intermenstrual bleeding (N92.1) Active confirmed Problem Irritable bowel syndrome (79365050) Irritable bowel syndrome (IBS) (K58.9) Active confirmed Problem Elevated blood pressure (92356103) Elevated blood pressure (I10) Active confirmed Problem Ovarian cyst (16013820) Ovarian cyst (N83.209) Active confirmed Problem Infectious mononucleosis (606599579) Infectious mononucleosis without complication, infectious mononucleosis due to unspecified organism (B27.90) Active confirmed Problem 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 (481054141) Viral hepatitis, unspecified chronicity, unspecified viral hepatitis type (B19.9) Active confirmed Problem 420138469 Infection of alberto l bed of toe of right foot (L03.031) Active confirmed Problem Myalgia (75853323) Myalgia (M79.10) Active conf irmed Problem Disease caused by Severe acute respiratory syndrome coronavirus 2 (disorder) (173363674) COVID-19 virus infection (U07.1) Active confirmed Problem Generalized headache (254368620) Generalized headache (R51.9) Active confirmed Problem Low back pain (424248759) Low back pain, unspecified (M54.50) Active confirmed Vital Signs Blood pressure diastolic 82 mm Hg 08/03/2024 Height 64 in 09/07/2024 Blood pressure systolic 160 mm Hg 08/03/2024 Weight 158.2 lbs 08/24/2024 BMI 27.15 kg/m2 08/24/2024 Procedures Procedure Date Ordered Date Performed Result Body Sit e *CARDIO Holter Event Monitor 4 weeks 01/12/2024 N/A Encounters Encounter Location Date Provider Diagnosis [facility] [address] [place] [address] 12/14/2023 Elmira Castro UTI (urinary tract infection) N39.0 [facility] [address] [place] [address] 04/20/2024 Prashant Hoy Neck mass R22.1 [facility] [address] [place] [address] 05/25/2024 Prashant Hoy Elevated blood pressure I10 and Acute UTI N39.0 [facility] [address] [place] [address] 08/24/2024 Prashant Hoy Essential (primary) hypertension I10 and Dermatitis L30.9 [facility] [address] [place] [address] 12/21/2023 Prashant Hoy Essential (primary) hypertension I10 and Acute UTI N39.0 [facility] [address] [place] [address] 01/12/2024 Prashant Hoy Essential (primary) hypertension I10 and Palpitations R00.2 [facility] [address] [place] [address] 03/29/2024 Prashant Hoy Acute bronchitis, unspecified organism J20.9 [facility] [address] [place] [address] 08/03/2024 Prashant Hoy Hypertension I10 and Well adult Z00.00 [facility] [address] [place] [address] 10/27/2023 Prashant Hoy Well adult Z00.00 [facility] [address] [place] [facility] [address] 12/16/2023 Prashant Hoy Acute UTI N39.0 [facility] [address] [place] [address] 07/06/2024 Prashant Hoy Essential (primary) hypertension I10 and Head contusion S00.93XA [facility] [address] [place] [address] 09/19/2024 Prashant Hoy Weight loss R63.4 an d Fatigue R53.83 [facility] [address] [place] [address] 09/21/2024 Prashant Hoy [facility] [address] [place] [facility] [place] [address] 08/27/2024 Prashant Hoy [facility] [address] [place] [place] [address] 08/27/2024 Prashant Hoy Essential (primary) hypertension I10 and Meniere disease H81.09 [facility] [address] [place] [address] 09/03/2024 Prashant Swany [facility] [address] [place] [facility] [place] [address] 09/04/2024 Prashant Hoy Elevated cortisol level R79.89 [facility] [address] [place] [facility] [place] [place] [address] 09/04/2024 Prashant Hoy [facility] [address] [facility] [address] 09/13/2024 Prashant Hoy Elevated cortisol level E27.0 [facility] [address] [place] [facility] [place] [place] [address] 05/28/2024 Prashant Benyy [facility] [address] [place] [facility] [address] 05/31/2024 Prashant Swany [facility] [address] [place] [place] [place] [address] 07/05/2024 Prashant Swany [facility] [address] [place] [facility] [place] [place] [address] 07/06/2024 Prashant Hoy Vertigo R42 and Headache R51.9 [facility] [address] [place] [facility] [place] [place] [place] [address] 08/03/2024 Prashant Swany [facility] [address] [place] [address] 08/04/2024 Prashant Hoy Hypertension I10 [facility] [address] [place] [facility] [place] [address] 01/11/2024 Prashant Swany [facility] [address] [place] [facility] [place] [place] [address] 01/27/2024 Prashant Hoy Hypoglycemia E16.2 [facility] [address] [place] [facility] [place] [place] [address] 01/29/2024 Prashant Hoy Urine frequency R35. 0 [facility] [address] [place] [facility] [place] [place] [place] [address] 01/31/2024 Prashant Swany [facility] [address] [place] [facility] [place] [address] 02/27/2024 Prashant Swany [facility] [address] [place] [address] 03/30/2024 Prashant Porter [facility] [address] [place] [address] 12/20/2023 Prashant Porter [facility] [address] [facility] [place] [place] [address] 12/21/2023 Prashant Porter [facility] [address] [facility] [place] [place] [address] 12/23/2023 Prashant Porter Acute UTI N39.0 [facility] [address] [facility] [place] [place] [address] 12/24/2023 Prashant Porter [facility] [address] [facility] [place] [place] [address] 12/28/2023 Prashant Porter [facility] [address] [facility] [place] [place] [address] 01/06/2024 Prashant Porter [facility] [address] [facility] [place] [place] [address] 12/08/2023 Prashant Porter Burning with urinati on R30.0 [facility] [address] [facility] [place] [place] [address] 12/08/2023 Prashant Porter [facility] [address] [facility] [place] [place] [address] 12/14/2023 Prashant Porter [facility] [address] [facility] [place] [place] [address] 12/14/2023 Elmira Castro [facility] [address] [place] [address] 12/15/2023 Elmira Castro Urinary tract infection N39.0 [facility] [address] [place] [address] 12/15/2023 Prashant Porter [facility] [address] [facility] [place] [address] 11/19/2023 Prashant Porter [facility] [address] [facility] [place] [place] [address] 11/22/2023 Prashant Hoy Flank pain R10.9 [facility] [address] [place] [place] [place] [address] 11/23/2023 Prashant Hoy Kidney stones N20.0 [facility] [address] [place] [place] [address] 11/25/2023 Prashant Hoy [facility] [address] [place] [address] 12/02/2023 Prashant Hoy Urinary retention R33.9 [facility] [address] [place] [place] [place] [address] 09/04/2024 Prashant Hoy Elevated cortisol level E27.0 [facility] [address] [place] [address] 09/07/2024 Prashant Hoy Insomnia G47.00 Assessments Encounter Date Diagnosis (ICD Code) Assessment Notes Treatment Notes Treatment Clinical Notes Section Notes 10/27/2023 Well adult (ICD-10 - Z00.00) 12/14/2023 [...] vaporizer to help keep the drainage moist. Amkr-jvv-kafqsmx Nasal Saline may help the stuffy and runny nose. Use Ibuprofen and or Tylenol as needed for fever, chills, body aches or pain. Children 5 years old should not be given unte-umy-uznjeyl cough and cold medications such as guaifenesin and dextromethorphan. If you're over age 5, you may try tbep-vjo-xuksgaa cold medications such as guaifenesin and dextromethorphan, [...] by endocrine 09/07/2024 Insomnia (ICD-10 - G47.00) 11/22/2023 Flank pain (ICD-10 - R10.9) 11/23/2023 [...] 09/13/2024 Elevated cortisol level (ICD-10 - E27.0) 09/19/2024 Weight loss (ICD-10 - R63.4) 09/19/2024 Fatigue (ICD-10 - R53.83) Plan Of Treatment Pending Test Test Name Order Date CMP (COMPLETE METABOLIC PANEL) 3 CMP (COMPLETE METABOLIC PANEL) 4 CMP (COMPLETE METABOLIC PANEL) 4 UA (URINALYSIS, COMPLETE) 12/08/2023 UA (URINALYSIS, COMPLETE) 12/15/2023 UA (URINALYSIS, COMPLETE) 12/23/2023 UA (URINALYSIS, COMPLETE) 01/29/2024 CULTURE, URINE w SENSITIVITY 12/08/2023 HEMOGLOBIN A1C (GLYCO) 09/25/2022 HEMOGLOBIN A1C (GLYCO) 08/03/2024 IRON, TOTAL 09/25/2022 LIPID PANEL (CHOL/TRIG/HDL/LDL) 09/26/19 23 LIPID PANEL (CHOL/TRIG/HDL/LDL) 08/04/19 25 CBC WITH DIFF 12/14/2023 CBC WITH DIFF 09/25/2022 UA (URINALYSIS, MICRO ONLY) 01/29/2024 VITAMIN D, 25 LEVEL (TOTAL) 09/25/2022 MRI Brain w/wo contrast * 09/13/2023 MRI Brain w/wo contrast * 08/04/2022 Urinalysis Microscopic 12/21/2023 Urinalysis Microscopic 05/25/2024 Urine Culture 12/15/2023 RHEUMATOID PANEL 12/25/2022 RHEUMATOID PANEL 09/13/2023 RHEUMATOID PANEL 09/25/2022 Cologuard 09/25/2022 Insulin Level 09/25/2022 CMP - Comprehensive Metabolic Panel 11/25 CMP - Comprehensive Metabolic Panel 08/25 Cortisol 08/27/2024 CBC W/AUTO DIFF 09/19/2024 High Sensitivity Troponin 08/03/2024 MRI Brain w/o Contrast 07/06/2024 C. DIFF PCR 11/11/2022 CA 19-9 09/19/2024 CBC AUTO DIFF 11/11/2022 CBC AUTO DIFF 11/13/2022 CBC AUTO DIFF 12/25/2022 CEA 09/19/2024 CRP 12/25/2022 CULTURE URINE 12/23/2023 CULTURE URINE 01/29/2024 CULTURE URINE 12/21/2023 CULTURE URINE 05/25/2024 GI PANEL (PCR) 11/11/2022 GLYCOHEMOGLOBIN A1C 12/25/2022 HEPATITIS PANEL, ACUTE 09/19/2024 MAGNESIUM 12/15/2022 OCC BLD IMMUNO SCREEN 11/11/2022 PROF 14(COMP METB) 11/11/2022 PROF 14(COMP METB) 11/13/2022 PROF 14(COMP METB) 12/25/2022 SED RATE WESTERGREN 12/25/2022 SED RATE WESTERGREN 09/13/2023 THYROID PROFILE WITH TSH 09/13/2023 THYROID PROFILE WITH TSH 12/25/2022 URINE MICROSCOPIC ONLY 12/15/[address] WO CON 04/20/2024 US KIDNEYS 11/22/2023 US KIDNEYS BLADDER 12/02/2023 XR CHEST 2 V 03/29/2024 THYROID PANEL (T4/TSH/FREE T3) 5 THYROID PANEL (T4/TSH/FREE T3) 3 THYROID PANEL (T4/TSH/FREE T3) 3 THYROID PANEL (T4/TSH/FREE T3) 5 URINALYSIS MICROSCOPIC 12/08/2023 *CARDIO Holter Event Monitor 4 weeks CMP (COMP MET NIXON) w/eGFR CKD-EPI 2024 CBC WITH DIFF 08/03/2024 CA 15-3 09/19/2024 Insurance Providers Payer Name Payer Address Payer Phone Subscriber Number Group Number Insured Name Patient Relationship to Insured Coverage Start Date Coverage End Date [facility] [address] [place] [id number] Yulia Dorsey Self - patient is the [...] Panic attack F41.0 Surgical History Surgery Date(Month/Year) Tonsils Gallbladder D&C
--- OUTSIDE RECORDS SUMMARY | 2024-09-27 07:46 | XMS_ITS | Encounter Summary ---
Author Organization [facility] Address [address] [place] [address] Care Team Providers Care Psychiatric Nurse Practitioner Name Role Phone Estiven Porter MD Primary Care Provider [phone] Encounter Details Date Type Department Care Team (Late st Contact Info) Description 07/13/2023 Clinisync Result Encounter [facility] External Department Unsolicited Katie Rust, DO [address] [facility] [address] [place], [place] [id number] Social History Tobacco Use Types Packs/Day Years [...] EDT Narrative 07/13/2023 7:20 AM EDT [facility] [place] [id number] Ultrasound Report Signed Patient: YULIA DORSEY MR#: [id number] : 1965 Acct:[id number] Age/Sex: 57 / F ADM Date: 07/12/23 Loc: US Attending Dr: Katie Rust D.O. Ordering Physician: Katie Rust D.O. Date of Service: 07/12/23 Procedure(s): US pelvis w/ transvaginal Accession Number(s): [id number] cc: Katie Rust D.O.; Estiven Porter M.D. [place] [id number] Patient Name: YULIA DORSEY MRN: [id number] date: 1965 Sex: F Assigned Patient Location: US Current Patient Location: Accession/Order Number: [id number] Exam Date: 07/12/2023 16:50 Report Date: 07/13/2023 [...] M.D. Signed By: 07/13/2320 DD/ 7 TD/TT: Rubber Goods Assembler: Procedure Note Radiology, Radiologist, MD - 03/19/[address] [address] Ultrasound Report Signed Patient: YULIA DORSEY LMR#: [id number] : 1965Acct:[id number] Age/Sex: 57 / FADM Date: 07/12/23 Loc: US Attending Dr: Katie Rust D.O. Ordering Physician: Katie Rust D.O. Date of Service: 07/12/23 Procedure(s): US pelvis w/ transvaginal Accession Number(s): [id number] cc: Katie Rust D.O.; Estiven Porter M.D. The [place] [id number] Patient Name: YULIA DORSEY MRN: [id number] date: 1965 Sex: F Assigned Patient Location: US Current Patient Location: Accession/Order Number: [id number] Exam Date: 07/12/2023 16:50 Report Date: 07/13/2023 [...] Alvarez M.D. Signed By:07/13/23719 DD/ 7 TD/TT: Rubber Goods Assembler: us Katie Yocasta DO [facility] Final Result documented in this encounter Visit Diagnoses Not on filedocumented in this encounter Care Teams Psychiatric Nurse Practitioner Relationship Specialty Start Date End Date Estiven Porter MD PCP - General 09/13/22 documented as of this encounter
--- OUTSIDE RECORDS SUMMARY | 2024-09-27 07:46 | XMS_ITS | Encounter Summary ---
Author Organization [facility] Address [address] [place] [address] Care Team Providers Care Deliverer Outside Name Role Phone Estiven Porter MD Primary Care Provider [phone] Encounter Details Date Type Department Care Team (Late st Contact Info) Description 09/22/2022 Clinisync Result Encounter [facility] External Department Unsolicited Katie Rust, DO [address] [facility] [place] [address] Social History Tobacco Use Types [...] : DR KATIE RUST . Admission #: [id number] Family : Order #: [id number] CLICK HERE TO VIEW EXAM RADIOLOGY REPORT [...] breast cancer at age 40. LOCATION: The [facility] BREAST COMPOSITION: Almost entirely fatty. [...] : DR KATIE RUST . Admission #: [id number] Family : Order #: [id number] CLICK HERE TO VIEW EXAM RADIOLOGY REPORT [...] breast cancer at age 40. LOCATION: The [facility] BREAST COMPOSITION: Almost entirely fatty. [...] on filedocumented in this encounter Care Teams Deliverer Outside Relationship Specialty Start Date End Date Estiven Porter MD PCP - General 09/13/22 documented as of this encounter
--- OUTSIDE RECORDS SUMMARY | 2024-09-27 07:46 | XMS_ITS | Encounter Summary ---
Author Organization [facility] Address [address] [place] [address] Care Team Providers Care Sheet Rock Nailer Name Role Phone Estiven Porter MD Primary Care Provider [phone] Encounter Details Date Type Department Care Team (Late st Contact Info) Description 01/07/2024 Clinisync Result Encounter [facility] External Department Unsolicited Katie Rust, DO [address] [facility] [place] [address] Social History Tobacco Use Types [...] EDT Narrative 01/07/2024 6:27 PM EDT The [address] [address] Electrocardiograph Report Signed Patient: YULIA DORSEY MR#: [id number] : 1965 Acct:[id number] Age/Sex: 58 / F ADM Date: 01/07/24 Loc: SURGOUT Attending Dr: Katie Rust D.O. Ordering Physician: Katie Rust D.O. Date of Service: 01/07/24 Procedure(s): ECG 12 lead Accession Number(s): [id number] cc: [facility] Test Date: 2024-01-07 Pat Name: YULIA DORSEY Department: Room: - Gender: Female General Farmworker: : 1965 Requested By: KATIE RUST Order Number: [id number] Reading MD: VADIM GARCIA Measurements Intervals [place] Rate: 89 P: 73 [place]: 162 QRS: -4 QRSD: 102 T: 70 QT: 384 QTc: 469 Interpretive Statements SINUS RHYTHM NONSPECIFIC ST T-WAVE ABNORMALITY Compared to ECG 07/19/2023 15:11:49 T-wave abnormality now present Electronically Signed On 01-07-2024 18:27:28 EDT by VADIM GARCIA Dictated By: Vadim Garcia D.O. Signed By: 01/07/24 1827 DD/ 0723 TD/TT: Mechanical Laboratory Technician: Procedure Note Radiology, Radiologist, MD - 01/07/2024 The [place] [id number] Electrocardiograph Report Signed Patient: YULIA DORSEY LMR#: [id number] : 1965Acct:[id number] Age/Sex: 58 / FADM Date: 01/07/24 Loc: SURGOUT Attending Dr: Katie Rust D.O. Ordering Physician: Katie Rust D.O. 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 Signed By:01/07/24 1827 DD/ 0723 TD/TT: Mechanical Laboratory Technician: us Katie Rust DO [facility] Final Result documented in this encounter Visit Diagnoses Not on filedocumented in this encounter Care Teams Sheet Rock Nailer Relationship Specialty Start Date End Date Estiven Porter MD PCP - General 09/13/22 documented as of this encounter
--- OUTSIDE RECORDS SUMMARY | 2024-09-27 07:46 | XMS_ITS | Clinical Summary ---
Author Organization [facility] Address [address] [place] [address] Care Team Providers Care Ui Software Engineer Name Role Phone Estiven Porter MD Primary Care Provider [phone] Allergies Active Allergy Reactions Criticality Noted Date [...] Major depressive disorder, single episode, moder ate ([facility]) 03/28/2019 Menopausal symptoms 11/17/2016 Psychological factors affecting [...] Not on file Insurance [employer] Care Teams Ui Software Engineer Relationship Specialty Start Date End Date Estiven Porter MD PCP - General 09/13/22
--- OUTSIDE RECORDS SUMMARY | 2024-09-27 07:46 | XMS_ITS | Encounter Summary ---
Author Organization [employer] Address [id number] [address] [place] [address] Care Team Providers Care Tar And Ammonia Pump Operator Name Role Phone Estiven Porter MD [...] Phys[facility] [address] [place] [phone] Allyson Thomas MD [address] [facility] [address] [place] [address] documented as of this encounter Visit Diagnoses Not on filedocumented in this encounter Care Teams Tar And Ammonia Pump Operator Relationship Specialty Start Date End Date Estiven Porter MD PCP - General Family Medicine 03/22/19 documented as of this encounter
--- OUTSIDE RECORDS SUMMARY | 2024-09-27 07:46 | XMS_ITS | Encounter Summary ---
Author Organization [employer] Address [facility] [id number] [address] [place] [address] Care Team Providers Care Ui Developer With Angular Js Name Role Phone Estiven Porter MD Primary Care Provider [phone] Encounter Details Date Type Department Care Team (Late st Contact Info) Description 09/05/2024 Orders Only [facility] [address] [place] [id number] Ref Prov, [place] [address] Social History Tobacco Use Types Packs/Day Years [...] Phys[facility] [address] [place] [address] Allyson Thomas MD [address] [facility] [place] [address] documented as of this encounter Procedures Procedure Name Priority Date/Time Associated Diagnosis Comments MULTIPLE LABS Routine 09/05/2024 1:53 PM EDT documented in this encounter Results * Multiple labs (09/05/2024 1:53 PM EDT) us Not In System Ref Prov [facility] Final Res ult documented in this encounter Visit Diagnoses Not on filedocumented in this encounter Care Teams Ui Developer With Angular Js Relationship Specialty Start Date End Date Estiven Porter MD PCP - General Family Medicine 03/22/19 documented as of this encounter
--- OUTSIDE RECORDS SUMMARY | 2024-09-27 07:46 | XMS_ITS | Encounter Summary ---
Author Organization [facility] Address [address] [place] [address] Care Team Providers Care National Park Tour Guide Name Role Phone John White MD Primary Care Provider [phone] Encounter Details Date Type Department Care Team (Late st Contact Info) Description 07/19/2023 Clinisync Result Encounter [facility] External Department Unsolicited Katie Rust, DO [address] [facility] [place] [address] Social History Tobacco Use Types [...] EDT Narrative 07/21/2023 9:13 AM EDT The [address] [address] Electrocardiograph Report Signed Patient: YULIA DORSEY MR#: [id number] : 1965 Acct:[id number] Age/Sex: 57 / F ADM Date: 07/19/23 Loc: PST Attending Dr: Katie Rust D.O. Ordering Physician: Katie Rust D.O. Date of Service: 07/19/23 Procedure(s): ECG 12 lead Accession Number(s): [id number] cc: The [facility] Test Date: 2023-07-19 Pat Name: YULIA DORSEY Department: Room: - Gender: Female Media Services Specialist: : 1965 Requested By: KATIE RUST Order Number: [id number] Reading MD: JOHN WHITE Measurements Intervals [place] Rate: 70 P: 63 [place]: 156 QRS: 5 QRSD: 99 T: 60 QT: 408 QTc: 440 Interpretive Statements SINUS RHYTHM POSSIBLE RIGHT VENTRICULAR CONDUCTION DELAY [RSR (QR) IN V1/V2] Compared to ECG 05/16/2018 10:49:06 Right bundle-branch block no longer present Electronically Signed On 07-21-2023 9:13:13 EDT by OJHN WHIET Dictated By: John White M.D. Signed By: 07/21/23 0913 DD/ 1511 TD/TT: Asset Card Clerk: Procedure Note Radiology, Radiologist, MD - 07/21/[address] [address] Electrocardiograph Report Signed Patient: YULIA DORSEY LMR#: [id number] : 1965Acct:[id number] Age/Sex: 57 / FADM Date: 07/19/23 Loc: PST Attending Dr: Katie Rust D.O. Ordering Physician: Katie Rust D.O. Date of Service: 07/19/23 Procedure(s): ECG 12 lead Accession Number(s): [id number] cc: The [facility] Test Date: 2023-07-19 Pat Name: YULIA DORSEY Department: Room: - Gender: Female Media Services Specialist: : 1965 Requested By: KATIE RUST Order Number: [id number] Reading MD: JOHN WHITE Measurements Intervals [place] Rate: 70 P: 63 [place]: 156 QRS: 5 QRSD: 99 T: 60 QT: 408 QTc: 440 Interpretive Statements SINUS RHYTHM POSSIBLE RIGHT VENTRICULAR CONDUCTION DELAY [RSR (QR) IN V1/V2] Compared to ECG 05/16/2018 10:49:06 Right bundle-branch block no longer present Electronically Signed On 07-21-2023 9:13:13 EDT by JOHN WHITE Dictated By: John White M.D. Signed By:07/21/23 0913 DD/ 1511 TD/TT: Asset Card Clerk: us Katie Rust DO [facility] Final Result documented in this encounter Visit Diagnoses Not on filedocumented in this encounter Care Teams National Park Tour Guide Relationship Specialty Start Date End Date John White MD PCP - General 09/13/22 documented as of this encounter
[2024-09-27 08:04] LABS: Basophils Absolute Auto 0.1 10^3/uL (0.0-0.1); Basophils Percent Auto 1.3 % (0.2-2.0); Eosinophils Absolute Auto 0.3 10^3/uL (0.0-0.7); Eosinophils Percent Auto 5.2 % (0.9-7.0); Hematocrit 43.6 % (36.0-48.0); Hemoglobin 14.4 g/dL (12.0-16.0); Immature Granulocytes Abs Auto 0.01 10^3/uL (0.00-0.03); Immature Granulocytes Pct Auto 0.2 % (0.0-0.5); Lymphocytes Absolute Auto 1.9 10^3/uL (1.2-3.8); Mean Corpuscular Hemoglobin 29.3 pg (26.7-34.0); Mean Corpuscular Volume 88.8 fL (81.0-99.0); Monocytes Absolute Auto 0.6 10^3/uL (0.3-0.8); Neutrophils Absolute Auto 2.5 10^3/uL (1.4-6.5); Neutrophils Percent Auto 46.3 % (43.0-75.0); Platelet Count 274 10^3/uL (150-450); Red Blood Count 4.91 10^6/uL (4.20-5.40); Red Cell Distribution Width 13.3 % (11.0-15.0); White Blood Count 5.4 10^3/uL (4.0-11.0)
--- OUTSIDE RECORDS SUMMARY | 2024-09-27 08:07 | XMS_ITS | CCD ---
Author Organization [facility] Care Team Providers Care Linux Support Engineer Name Role Phone ABELINOY ., DR LOPEZ [...] Unavailable YOCASTA ., DR WILSON Attending Unavailable [place], DR ELLYN Dougherty Consulting Unavailable HOY ., [...] LOPEZ Admitting Unavailable MEAGAN, WINCHA Consulting Unavailable Abelinoy, John Primary Care Physician VALE HI Attending Unavailable RALF RENDON Referring Unavailable YOCASTA, KATIE Attending Unavailable YOCASTA, KATIE Attending Unavailable YOCASTA, KATIE Attending Unavailable RADHA TINSLEY Attending Unavailable YOCASTA, KATIE Attending Unavailable MD John Porter Primary Care Provider [phone] DO Katie Rust Attending Provider Bessie Gong Attending Unavailable Hoy, John M Primary Care Unavailable Yocasta, Katie Attending Unavailable Yocasta, Katie Admitting Unavailable John Porter MD Primary Care Provider [phone] John Porter MD Primary Care Provider [phone] IRIS GABRIEL Attending Unavailable HOY, JOHN [...] source) Azithromycin Drug Allergy 12-21-19 22 [facility] (4 sources) Imipramine; Translations: [IMIPRAMINE] Drug Allergy 10-06-19 13 hallucinations [facility] (2 sources) Sulfonamides (Antibiotic) Drug allergy (disorder) 10-06-19 13 [facility] (2 sources) E.E.S. Drug allergy (disorder) 10-06-19 13 [facility] (18 sources) Erythromycin; Translations: [erythromycin] Drug Allergy 02-25-20 16 Unknown (qualifier value), Other [facility] (17 sources) Imipramine; Translations: [imipramine] Drug Allergy 02-25-20 16 Unknown (qualifier value), Other [facility] (2 sources) Sulfonamides (Antibiotic); Translations: [sulfa drugs] Drug allergy Unknown (qualifier value) [facility] (4 sources) Sulfonamides (Antibiotic); Translations: [Sulfa (Sulfonamide Antibiotics)] Allergy to substance 09-12-19 [facility] (16 sources) erythromycin base; Translations: [erythromycin base] Allergy to substance 12-02-[address] 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 Ordering Physician: Katie Rust D.O. Results: Date of Service: 05/30/24 Follow Up: Procedure(s): MM tomosynthesis screening BI Accession Number(s): [id number] cc: Katie Rust D.O.; John Porter M.D. Patient Name: YULIA DORSEY MR#: [id number] : 1965 Exam Date: 05/30/2024 Ordering Doctor: [...] breast cancer at age 40. LOCATION: [facility] BREAST COMPOSITION: The breasts are almost entirely [...] Signed By: 05/30/24 1635 DD/ 1634 TD/TT: Coupon Redemption Clerk: [facility] Radiology, Radiologist, MD - 05/30/2024 [place] [address] Mammography Report Signed Patient: YULIA DORSEY MR#: [id number] : 1965 Acct:[id number] Age/Sex: 58 / F ADM Date: 05/30/24 Loc: MAMMO Attending Dr: Katie Rust D.O. Ordering Physician: Katie Rust D.O. Results: Date of Service: 05/30/24 Follow Up: Procedure(s): MM tomosynthesis screening BI Accession Number(s): [id number] cc: Katie Rust D.O.; John Porter M.D. Patient Name: YULIA DORSEY MR#: [id number] : 1965 Exam Date: 05/30/2024 Ordering Doctor: [...] breast cancer at age 40. LOCATION: [facility] BREAST COMPOSITION: The breasts are almost entirely [...] By: Gabo Strong M.D. Signed By: 05/30/24 163 DD/ 33 TD/TT: Coupon Redemption Clerk: [facility] Radiology Study observation (narrative) [facility] MM TOMOSYNTHESIS SCREENING B IOrdered By: Radiologist Radiology on 05-30-2024 [facility] Work Phone: ALL CBC WITH AUTO DIFFon BASOPHILS ABSOLUTE AUTO 0.0 [facility] Basophils/100 WBC (Bld) 0.8 % 0.2 - 2.0 % [facility] Eosinophils/100 WBC (Bld) 1.9 % 0.9 - 7.0 % [facility] Erythrocyte distribution width (RBC) [Ratio] 13.4 % 11.0 - 15.0 % [facility] Hematocrit (Bld) [Volume fraction] 43.1 % 36.0 - 48.0 % [facility] Hemoglobin (Bld) [Mass/Vol] 13.9 g/dL 12.0 - 16.0 g/dL [facility] IMMATURE GRANULOCYTES ABS AUTO 0.01 [facility] Immature granulocytes/100 WBC (Bld) 0.2 % 0.0 - 0.5 % [facility] LYMPHOCYTES ABSOLUTE AUTO 1.7 [facility] Lymphocytes/100 WBC (Bld) 32.9 % 20.5 - 60.0 % [facility] MCH (RBC) [Entitic mass] 28.8 pg 26.7 - 34.0 pg [facility] MCHC (RBC) [Mass/Vol] 32.3 g/dL 29.9 - 35.2 g/dL [facility] MCV (RBC) [Entitic vol] 89.2 fL 81.0 - 99.0 fL [facility] MONOCYTES ABSOLUTE AUTO 0.5 [facility] Monocytes/100 WBC (Bld) 9.6 % 1.7 - 12.0 % [facility] NEUTROPHILS ABSOLUTE AUTO 2.8 [facility] Neutrophils/100 WBC (Bld) 54.6 % 43.0 - 75.0 % [facility] Platelet mean volume (Bld) [Entitic vol] 9.7 fL 9.5 - 13.5 fL [facility] TBH EO # 0.1 [facility] PLT 291 [facility] RBC 4.83 [facility] WBC 5.1 [facility] [place] 01-07-2024 L Specimen: [id number] Received: 01/07/24 Status: LAWSON Guzman Num: [id number] Spec Type: Surgical Subm Dr: Katie Rust Tissues: A Endometrial Polyp (ENOMETRIAL POLYP AND CURETTI) Procedures: HE/2, Gross/Micro L4 Age/ Patient Sex Location Account Attending Physician Yulia Dorsey 58/F LABELL [id number] Katie Rust SPEC NUM: [id number] RECD: 01/07/24 STATUS: LAWSON GUZMAN NUM: [id number] TIMOTHY: 01/07/[address]: Katie Rust ENTERED: 01/07/[address] [facility] [address]: Cristhian,Lab SPEC TYPE: Surgical DEPT: BIANCA VANN ENTERED BY: [id number] RECV BY: [id number] ORDERED: HE/2, Gross/Micro L4 ORDERED: HE/2, Gross/Micro [...] is entirely submitted cassette A1. CPT Codes 05328 -------- -------- Specimen: [id number] Received: 01/07/24-134 Status: LAWSON Guzman Num: [id number] Spec Type: Surgical Subm Dr: Katie Rust Tissues: A Endometrial Polyp (ENOMETRIAL POLYP AND CURETTI) Procedures: AMANDA/Charline Oakley/Sybil L4 -------- Patient: Yulia Dorsey [id number] (Continued) -------- Signed (signature on file) Tammie Mcclellan MD 01/13/24 1606 Normal [facility] Patient Letter FTon 2023 Patient Letter [facility] Patient Letter [facility] January 07, 2024 [place] [address] : 1965 Dear Yulia Dorsey, We have been trying to reach you with no success. It is important that you return our call upon receiving this letter. Also, at the time of your call, please provide us with your current information. Thank you for your prompt attention to this matter. Sincerely, [facility] [address] [place] [address] [facility] Ambulatory Visit Summaryon 0 12-30-2023 [...] you for choosing us for your care. [facility] Provider Letteron 12-30-2023 Provider Letter Provider Letter December 30, 2023 [place] [address] : 1965 To Whom It May Concern, Please excuse above patient from work. 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 Porter for recurrent UTI [...] she went to an urgent care in [facility] who started her on Augmentin [...] E&M of New Patient High 60-74 Min [id number] 2. Kidney stones (N20.0: Calculus of kidney) [...] now. -K (more content not included)... Normal [facility] Comment on above: Result Comment: Elec tronically Signed By: Farideh BARRERA, Bessie Modi\.br\Date and Time Signed: 12/30/23 15:22 EDT URETHRITIS/DISCHARGE PLUS VA GINITIS (HTRX)on 12-22-2023 ATOPOBIUM VAGINAE 0.000 [facility] ATOPOBIUM VAGINAE Not detected [facility] BVAB 2,3 (BACTERIAL VAGINOSIS ASSOCIATED BACTERIA 2, 3); MOBILUNCUS SPP 0.000 [facility] BVAB 2,3 (BACTERIAL VAGINOSIS ASSOCIATED [...] MG MAMM DX 3D RT CAD Patient: UYLIA ODRSEY Exam Date: 09/22/2022 : 1965 Gender:F Ordering : DR KATIE RUST . Admission #: [id number] Family : Order #: [id number] CLICK HERE TO VIEW EXAM RADIOLOGY REPORT [...] breast cancer at age 40. LOCATION: [facility] BREAST COMPOSITION: Almost entirely fatty. FINDINGS: [...] MD on 09/22/2022 at 15:03 Normal [facility] US BREAST RIGHT LIMITEDon US BREAST RIGHT LIMITED Patient: YULIA DORSEY Exam Date: 09/22/2022 : 1965 Gender:F Ordering : DR KATIE RUST . Admission #: [id number] Family : Order #: [id number] CLICK HERE TO VIEW EXAM RADIOLOGY REPORT [...] breast cancer at age 40. LOCATION: [facility] BREAST COMPOSITION: Almost entirely fatty. FINDINGS: [...] MD on 09/22/2022 at 15:03 Normal [facility] US ST HEAD_NECKon 08-31-[address] HEAD_NECK [...] by: GABO STRONG Date: 2022-08-31 08:09 Normal [facility] US PELVIS AND TRANSVAGon US [...] GABO STRONG Date: 2022-07-29 06:32 Normal [facility] INSULINon 07-04-2022 Insulin 6.2 uIU/mL Normal 2.6-24.9 [facility] Comment on above: Performed By: #### H STROPN, CMP #### [facility] [address] [address] [address] Judd Andrade CBC AUTO DIFFon 07-03-2022 BASO # 0.0 103/ul Normal 0.0-0.1 [facility] Comment on above: Performed By: #### C BC #### [facility] [address] [address] [address] Judd Andrade Basophils/100 WBC (Bld) 1.1 % Normal 0.2-2.0 [facility] Comment on above: Performed By: #### C BC #### [facility] [address] [address] [address] Judd Andrade EO # 0.1 103/ul Normal 0.0-0.7 [facility] Comment on above: Performed By: #### C BC #### [facility] [address] [address] [address] Judd Andrade Eosinophils/100 WBC (Bld) 3.6 % Normal 0.9-7.0 [facility] Comment on above: Performed By: #### C BC #### [facility] [address] [place] [address] Dr. Judd Andrade Erythrocyte distribution width (RBC) [Ratio] 13.6 % Normal 11.0-15.0 [facility] Comment on above: Performed By: #### C BC #### [facility] [address] [place] [address] Dr. Judd Andrade Hematocrit (Bld) [Volume fraction] 41.8 % Normal 36.0-48.0 [facility] Comment on above: Performed By: #### C BC #### [facility] [address] [place] [address] Dr. Judd Andrade Hemoglobin (Bld) [Mass/Vol] 13.5 g/dL Normal 12.0-16.0 [facility] Comment on above: Performed By: #### C BC #### [facility] [address] [place] [address] Dr. Judd Andrade IG # 0.01 10e3/ul Normal 0.00-0.03 [facility] Comment on above: Performed By: #### C BC #### [facility] [address] [place] [address] Dr. Judd Andrade IG % 0.3 % Normal 0.0-0.5 [facility] Comment on above: Performed By: #### C BC #### [facility] [address] [place] [address] Dr. Judd Andrade LYMPH # 1.4 103/ul Normal 1.2-3.8 [facility] Comment on above: Performed By: #### C BC #### [facility] [address] [place] [address] Dr. Judd Andrade Lymphocytes/100 WBC (Bld) 38.4 % Normal 20.5-60.0 [facility] Comment on above: Performed By: #### C BC #### [facility] [address] [place] [address] Dr. Judd Andrade MANUAL DIFF REQ NO Normal [facility] Comment on above: Performed By: #### C BC #### [facility] [address] [place] [address] Dr. Judd Andrade MCH (RBC) [Entitic mass] 28.2 pg Normal 26.7-34.0 [facility] Comment on above: Performed By: #### C BC #### [facility] [address] [place] [address] Dr. Judd Andrade MCHC (RBC) [Mass/Vol] 32.3 g/dL Normal 29.9-35.2 [facility] Comment on above: Performed By: #### C BC #### [facility] [address] [place] [address] Dr. Judd Andrade MCV (RBC) [Entitic vol] 87.4 fL Normal 81.0-99.0 [facility] Comment on above: Performed By: #### C BC #### [facility] [address] [place] [address] Dr. Judd Andrade MONO # 0.4 103/ul Normal 0.3-0.8 [facility] Comment on above: Performed By: #### C BC #### [facility] [address] [place] [address] Dr. Judd Andrade Monocytes/100 WBC (Bld) 10.4 % Normal 1.7-12.0 [facility] Comment on above: Performed By: #### C BC #### [facility] [address] [place] [address] Dr. Judd Andrade NEUT # 1.7 103/ul Normal 1.4-6.5 [facility] Comment on above: Performed By: #### C BC #### [facility] [address] [place] [address] Dr. Judd Andrade Neutrophils/100 WBC (Bld) 46.2 % Normal 43.0-75.0 [facility] Comment on above: Performed By: #### C BC #### [facility] [address] [place] [address] Dr. Judd Andrade Platelet mean volume (Bld) [Entitic vol] 9.6 fL Normal 9.5-13.5 [facility] Comment on above: Performed By: #### C BC #### [facility] [address] [address] [address] Judd Andrade PLT 246 103/ul Normal 150-450 [facility] Comment on above: Performed By: #### C BC #### [facility] [address] [address] [address] Judd Andrade RBC 4.78 106/ul Normal 4.20-5.40 [facility] Comment on above: Performed By: #### C BC #### [facility] [address] [place] [address] Dr. Judd Andrade WBC 3.7 103/ul Critically low 4.0-11.0 [facility] Comment on above: Performed By: #### C BC #### [facility] [address] [place] [address] Dr. Judd Andrade FREE THYROXINE INDEX T7on FTI 3.20 Normal 1.30-4.50 [facility] Comment on above: Performed By: #### T 7, LIPID, TSH, CMP #### [facility] [address] [place] [address] Dr. Judd Andrade T3U 36.0 % Normal 30.0-39.0 [facility] Comment on above: Performed By: #### T 7, LIPID, TSH, CMP #### [facility] [address] [place] [address] Dr. Judd Andrade T4 [Mass/Vol] 8.90 ug/dL Normal 4.80-13.90 [facility] Comment on above: Performed By: #### T 7, LIPID, TSH, CMP #### [facility] [address] [place] [address] Dr. Judd Andrade GLYCOHEMOGLOBIN A1Con 2022 ADA RECOMMENDATION SEE BELOW Normal [facility] Comment on above: Result Comment: ADA RECOMMENDED LIMIT 4.0 - 6.0 ADA THERAPEUTIC TARGET < 7.0 ACTION SUGGESTED > 7.0 Performed By: #### C BC #### [facility] [address] [place] [address] Dr. Judd Andrade Glucose [Mass/Vol] 120 mg/dL Normal [facility] Comment on above: Performed By: #### C BC #### [facility] [address] [address] [address] Judd Andrade HbA1c (Bld) [Mass fraction] 5.8 % Normal 4.5-6.2 [facility] Comment on above: Performed By: #### C BC #### [facility] [address] [address] [address] Judd Andrade IRONon 07-03-2022 Iron [Mass/Vol] 67.0 ug/dL Normal 50.0-170.0 [facility] Comment on above: Performed By: #### V ITAD, IRON #### [facility] [address] [address] [address] Judd Andrade LIPID PROFILEon 07-03-2022 CHOL-HDL RATIO NORM SEE BELOW Normal [facility] Comment on above: Result Comment: 3.3 - 4.4 LOW RISK 4.4 - 7.1 AVERAGE RISK 7.1 - 11.0 MODERATE RISK >11.0 HIGH RISK Performed By: #### T 7, LIPID, TSH, CMP #### [facility] [address] [address] [address] Judd Andrade Cholesterol [Mass/Vol] 216 mg/dL Critically high <=200 [facility] Comment on above: Performed By: #### T 7, LIPID, TSH, CMP #### [facility] [address] [address] [address] Judd Andrade Cholesterol in HDL [Mass/Vol] 87 mg/dL Critically high 40-60 [facility] Comment on above: Performed By: #### T 7, LIPID, TSH, CMP #### [facility] [address] [address] [address] Judd Andrade Cholesterol in LDL [Mass/Vol] 124.2 mg/dL Normal [facility] Comment on above: Performed By: #### T 7, LIPID, TSH, CMP #### [facility] [address] [address] [address] Judd Andrade Cholesterol.total/C holesterol in HDL [Mass ratio] 2.5 {ratio} Normal [facility] Comment on above: Performed By: #### T 7, LIPID, TSH, CMP #### [facility] [address] [address] [address] Judd Andrade HDL NORMAL > or = 60 mg/dl - LO W CARDIOVASCULAR RISK <40 mg/dl - HIGH CARDIOVASCULAR RISK Normal [facility] Comment on above: Performed By: #### T 7, LIPID, TSH, CMP #### [facility] [address] [address] [address] Judd Andrade LDL CALC NORMAL SEE BELOW Normal [facility] Comment on above: Result Comment: <100 mg/dl OPTIMAL 100 - 129 mg/dl NEAR OR ABOVE OPTIMAL 130 - 159 mg/dl BORDERLINE HIGH 160 - 189 mg/dl HIGH >190 mg/dl VERY HIGH Performed By: #### T 7, LIPID, TSH, CMP #### [facility] [address] [place] [address] Dr. Judd Andrade Triglyceride [Mass/Vol] 24 mg/dL Normal <=150 [facility] Comment on above: Performed By: #### T 7, LIPID, TSH, CMP #### [facility] [address] [address] [address] Judd Andrade VLDL CALC 4.8 mg/dL Normal [facility] Comment on above: Performed By: #### T 7, LIPID, TSH, CMP #### [facility] [address] [place] [address] Dr. Judd Andrade PROF 14(COMP METB)on 023 Albumin [Mass/Vol] 4.0 g/dL Normal 3.4-5.[address] [facility] Comment on above: Performed By: #### T 7, LIPID, TSH, CMP #### [facility] [address] [place] [address] Dr. Judd Andrade Albumin/Globulin [Mass ratio] 1.1 {ratio} Normal [facility] Comment on above: Performed By: #### T 7, LIPID, TSH, CMP #### [facility] [address] [place] [address] Dr. Judd Andrade ALP [Catalytic activity/Vol] 78 U/L Normal 46-116 [facility] Comment on above: Performed By: #### T 7, LIPID, TSH, CMP #### [facility] [address] [place] [address] Dr. Judd Andrade ALT [Catalytic activity/Vol] 29 U/L Normal 14-59 [facility] Comment on above: Performed By: #### T 7, LIPID, TSH, CMP #### [facility] [address] [place] [address] Dr. Judd Andrade Anion gap [Moles/Vol] 5.6 mmol/L Normal [facility] Comment on above: Performed By: #### T 7, LIPID, TSH, CMP #### [facility] [address] [place] [address] Dr. Judd Andrade AST [Catalytic activity/Vol] 23 U/L Normal 15-37 [facility] Comment on above: Performed By: #### T 7, LIPID, TSH, CMP #### [facility] [address] [place] [address] Dr. Judd Andrade Bilirubin [Mass/Vol] 0.5 mg/dL Normal 0.2-1.0 [facility] Comment on above: Performed By: #### T 7, LIPID, TSH, CMP #### [facility] [address] [place] [address] Dr. Judd Andrade Calcium [Mass/Vol] 8.9 mg/dL Normal 8.5-10.[address] [facility] Comment on above: Performed By: #### T 7, LIPID, TSH, CMP #### [facility] [address] [place] [address] Dr. Judd Andrade Chloride [Moles/Vol] 105 mmol/L Normal 98-107 [facility] Comment on above: Performed By: #### T 7, LIPID, TSH, CMP #### [facility] [address] [place] [address] Dr. Judd Andrade CO2 [Moles/Vol] 32.0 mmol/L Normal 21.0-32.0 [facility] Comment on above: Performed By: #### T 7, LIPID, TSH, CMP #### [facility] [address] [address] [address] Judd Andrade Creatinine [Mass/Vol] 0.52 mg/dL Critically low 0.55-1.02 [facility] Comment on above: Performed By: #### T 7, LIPID, TSH, CMP #### [facility] [address] [address] [address] Judd Andrade EGFR-AF PRYDEINIG >60 Normal >=60 [facility] Comment on above: Performed By: #### T 7, LIPID, TSH, CMP #### [facility] [address] [address] [address] Judd Andrade EGFR-NON AF PRYDEINIG >60 Normal >=60 [facility] Comment on above: Performed By: #### T 7, LIPID, TSH, CMP #### [facility] [address] [address] [address] Judd Andrade Globulin (S) [Mass/Vol] 3.6 g/dL Normal [facility] Comment on above: Performed By: #### T 7, LIPID, TSH, CMP #### [facility] [address] [address] [address] Judd Andrade Glucose [Mass/Vol] 89 mg/dL Normal 74-[address] [facility] Comment on above: Performed By: #### T 7, LIPID, TSH, CMP #### [facility] [address] [address] [address] Judd Andrade Potassium [Moles/Vol] 4.2 mmol/L Normal 3.5-5.1 [facility] Comment on above: Performed By: #### T 7, LIPID, TSH, CMP #### [facility] [address] [address] [address] Judd Andrade Protein [Mass/Vol] 7.6 g/dL Normal 6.4-8.2 [facility] Comment on above: Performed By: #### T 7, LIPID, TSH, CMP #### [facility] [address] [address] [address] Judd Andrade Sodium [Moles/Vol] 139 mmol/L Normal 136-145 [facility] Comment on above: Performed By: #### T 7, LIPID, TSH, CMP #### [facility] [address] [address] [address] Judd Andrade Urea nitrogen [Mass/Vol] 11.0 mg/dL Normal 7.0-18.0 [facility] Comment on above: Performed By: #### T 7, LIPID, TSH, CMP #### [facility] [address] [place] [address] Dr. Judd Andrade Urea nitrogen/Creatinine [Mass ratio] 21.2 mg/mg Normal [facility] Comment on above: Performed By: #### T 7, LIPID, TSH, CMP #### [facility] [address] [place] [address] Dr. Judd Andrade TSHon 07-03-2022 TSH 1.037 uIU/mL Normal 0.358-3.740 [facility] Comment on above: Performed By: #### T 7, LIPID, TSH, CMP #### [facility] [address] [place] [address] Dr. Judd Andrade VITAMIN D 25 OHon 07-03-2022 VIT D 25-OH 32.8 ng/mL Normal [facility] Comment on above: Performed By: #### V CARMELO, IRON #### [facility] [address] [place] [address] Dr. Judd Andrade VIT D RANGES SEE BELOW Normal [facility] Comment on above: Result Comment: <20 ng/mL Vit D deficient 20 - <30 ng/mL Vit D insufficient 30 - 100 ng/mL Vit D sufficient >100 ng/mL Potential Toxicity Performed By: #### V ITAD, IRON #### [facility] [address] [place] [address] Dr. Judd Andrade BORDETELLA PERTUSSIS AB IGGo n 06-30-2022 B pertussis IgG Ab 3.88 index Invalid Interpretation Code 0.00-0.94 [facility] Comment on above: Result Comment: Clie nt Requested Flag Negative <0.95 Equivocal 0.95 - 1.04 Positive >1.04 Performed By: #### C BC #### [facility] [address] [place] [address] Dr. Judd Andrade BORDETELLA PERTUSSIS AB IGMo n 06-30-2022 B pertussis IgM Ab <1.0 Normal 0.0-0.[address] [facility] Comment on above: Result Comment: Nega tive <1.0 Borderline 1.0 - 1.1 Positive >1.1 Performed By: #### H DEB, CMP #### [facility] [address] [place] [address] Dr. Judd Andrade [id number] 2022 [id number] , Serum 158 mg/dL Normal 101-187 [facility] Comment on above: Performed By: #### C BC #### [facility] [address] [place] [address] Dr. Judd Andrade CBC AUTO DIFFon 06-03-2022 BASO # 0.0 103/ul Normal 0.0-0.1 [facility] Comment on above: Performed By: #### H DEB, CMP #### [facility] [address] [place] [address] Dr. Judd Andrade Basophils/100 WBC (Bld) 0.6 % Normal 0.2-2.0 [facility] Comment on above: Performed By: #### H DEB, CMP #### [facility] [address] [place] [address] Dr. Judd Andrade EO # 0.0 103/ul Normal 0.0-0.7 [facility] Comment on above: Performed By: #### H DEB, CMP #### [facility] [address] [place] [address] Dr. Judd Andrade Eosinophils/100 WBC (Bld) 0.6 % Critically low 0.9-7.0 [facility] Comment on above: Performed By: #### H DEB, CMP #### [facility] [address] [place] [address] Dr. Judd Andrade Erythrocyte distribution width (RBC) [Ratio] 13.5 % Normal 11.0-15.0 [facility] Comment on above: Performed By: #### H DEB, CMP #### [facility] [address] [address] [address] Judd Andrade Hematocrit (Bld) [Volume fraction] 42.4 % Normal 36.0-48.0 [facility] Comment on above: Performed By: #### H STROPN, CMP #### [facility] [address] [address] [address] Judd Andrade Hemoglobin (Bld) [Mass/Vol] 13.4 g/dL Normal 12.0-16.0 [facility] Comment on above: Performed By: #### H STROPN, CMP #### [facility] [address] [address] [address] Judd Andrade IG # 0.01 10e3/ul Normal 0.00-0.03 [facility] Comment on above: Performed By: #### H STROPN, CMP #### [facility] [address] [place] [address] Dr. Judd Andrade IG % 0.2 % Normal 0.0-0.5 [facility] Comment on above: Performed By: #### H STROPN, CMP #### [facility] [address] [place] [address] Dr. Judd Andrade LYMPH # 1.1 103/ul Critically low 1.2-3.8 [facility] Comment on above: Performed By: #### H STROPN, CMP #### [facility] [address] [address] [address] Judd Andrade Lymphocytes/100 WBC (Bld) 23.5 % Normal 20.5-60.0 [facility] Comment on above: Performed By: #### H STROPN, CMP #### [facility] [address] [place] [address] Dr. Judd Andrade MANUAL DIFF REQ NO Normal [facility] Comment on above: Performed By: #### H STROPN, CMP #### [facility] [address] [place] [address] Dr. Judd Andrade MCH (RBC) [Entitic mass] 28.9 pg Normal 26.7-34.0 [facility] Comment on above: Performed By: #### H STROPN, CMP #### [facility] [address] [place] [address] Dr. Judd Andrade MCHC (RBC) [Mass/Vol] 31.6 g/dL Normal 29.9-35.2 [facility] Comment on above: Performed By: #### H STROPN, CMP #### [facility] [address] [place] [address] Dr. Judd Andrade MCV (RBC) [Entitic vol] 91.6 fL Normal 81.0-99.0 [facility] Comment on above: Performed By: #### H STROPN, CMP #### [facility] [address] [place] [address] Dr. Judd Andrade MONO # 0.8 103/ul Normal 0.3-0.8 [facility] Comment on above: Performed By: #### H STROPN, CMP #### [facility] [address] [place] [address] Dr. Judd Andrade Monocytes/100 WBC (Bld) 16.5 % Critically high 1.7-12.0 [facility] Comment on above: Performed By: #### H STROPN, CMP #### [facility] [address] [place] [address] Dr. Judd Andrade NEUT # 2.7 103/ul Normal 1.4-6.5 [facility] Comment on above: Performed By: #### H STROPN, CMP #### [facility] [address] [place] [address] Dr. uJdd Andrade Neutrophils/100 WBC (Bld) 58.6 % Normal 43.0-75.0 [facility] Comment on above: Performed By: #### H STROPN, CMP #### [facility] [address] [place] [address] Dr. Judd Andrade Platelet mean volume (Bld) [Entitic vol] 9.8 fL Normal 9.5-13.5 [facility] Comment on above: Performed By: #### H STROPN, CMP #### [facility] [address] [place] [address] Dr. Judd Andrade PLT 252 103/ul Normal 150-450 [facility] Comment on above: Performed By: #### H TERAPN, CMP #### [facility] [address] [place] [address] Dr. Judd Andrade RBC 4.63 106/ul Normal 4.20-5.40 [facility] Comment on above: Performed By: #### H TERAPN, CMP #### [facility] [address] [place] [address] Dr. Judd Andrade WBC 4.7 103/ul Normal 4.0-11.0 [facility] Comment on above: Performed By: #### H TERAPN, CMP #### [facility] [address] [place] [address] Dr. Judd Andrade PROF 14(COMP METB)on 023 Albumin [Mass/Vol] 4.0 g/dL Normal 3.4-5.[address] [facility] Comment on above: Performed By: #### H DEB, CMP #### [facility] [address] [place] [address] Dr. Judd Andrade Albumin/Globulin [Mass ratio] 1.0 {ratio} Normal [facility] Comment on above: Performed By: #### H TERAPN, CMP #### [facility] [address] [place] [address] Dr. Judd Andrade ALP [Catalytic activity/Vol] 77 U/L Normal 46-116 [facility] Comment on above: Performed By: #### H TERAPN, CMP #### [facility] [address] [place] [address] Dr. Judd Andrade ALT [Catalytic activity/Vol] 33 U/L Normal 14-59 [facility] Comment on above: Performed By: #### H TERAPN, CMP #### [facility] [address] [place] [address] Dr. Judd Andrade Anion gap [Moles/Vol] 8.0 mmol/L Normal [facility] Comment on above: Performed By: #### H TERAPN, CMP #### [facility] [address] [place] [address] Dr. Judd Andrade AST [Catalytic activity/Vol] 28 U/L Normal 15-37 [facility] Comment on above: Performed By: #### H STROPN, CMP #### [facility] [address] [address] [address] Jdud Andrade Bilirubin [Mass/Vol] 0.6 mg/dL Normal 0.2-1.0 [facility] Comment on above: Performed By: #### H STROPN, CMP #### [facility] [address] [address] [address] Judd Andrade Calcium [Mass/Vol] 9.3 mg/dL Normal 8.5-10.[address] [facility] Comment on above: Performed By: #### H STROPN, CMP #### [facility] [address] [place] [address] Dr. Judd Andrade Chloride [Moles/Vol] 103 mmol/L Normal 98-107 [facility] Comment on above: Performed By: #### H STROPN, CMP #### [facility] [address] [place] [address] Dr. Judd Andrade CO2 [Moles/Vol] 33.6 mmol/L Critically high 21.0-32.0 [facility] Comment on above: Performed By: #### H STROPN, CMP #### [facility] [address] [place] [address] Dr. Judd Andrade Creatinine [Mass/Vol] 0.59 mg/dL Normal 0.55-1.02 [facility] Comment on above: Performed By: #### H STROPN, CMP #### [facility] [address] [place] [address] Dr. Judd Andrade EGFR-AF PRYDEINIG >60 Normal >=60 [facility] Comment on above: Performed By: #### H STROPN, CMP #### [facility] [address] [place] [address] Dr. Judd Andrade EGFR-NON AF PRYDEINIG >60 Normal >=60 [facility] Comment on above: Performed By: #### H STROPN, CMP #### [facility] [address] [place] [address] Dr. Judd Andrade Globulin (S) [Mass/Vol] 4.0 g/dL Normal [facility] Comment on above: Performed By: #### H DEB, CMP #### [facility] [address] [address] [address] Judd Andrade Glucose [Mass/Vol] 130 mg/dL Critically high 74-106 [facility] Comment on above: Performed By: #### H DEB, CMP #### [facility] [address] [address] [address] Judd Andrade Potassium [Moles/Vol] 3.6 mmol/L Normal 3.5-5.1 [facility] Comment on above: Performed By: #### H DEB, CMP #### [facility] [address] [place] [address] Dr. Judd Andrade Protein [Mass/Vol] 8.0 g/dL Normal 6.4-8.2 [facility] Comment on above: Performed By: #### H DEB, CMP #### [facility] [address] [place] [address] Dr. Judd Andrade Sodium [Moles/Vol] 141 mmol/L Normal 136-[address] [facility] Comment on above: Performed By: #### H DEB, CMP #### [facility] [address] [place] [address] Dr. Judd Andrade Urea nitrogen [Mass/Vol] 8.0 mg/dL Normal 7.0-18.0 [facility] Comment on above: Performed By: #### H DEB, CMP #### [facility] [address] [place] [address] Dr. Judd Andrade Urea nitrogen/Creatinine [Mass ratio] 13.6 mg/mg Normal [facility] Comment on above: Performed By: #### H DEB, CMP #### [facility] [address] [place] [address] Dr. Judd Andrade TROPONIN, HIGH SENSITIVITYon 06-03-2022 HSTROP <4.0 Normal 4.0-51.3 [facility] Comment on above: Result Comment: CUT- OFF POINTS HAVE BEEN ESTABLISHED BASED ON THE FOURTH UNIVERSAL DEFINITIONS OF MYOCARDIAL INFARCTION. THE UPPER REFERENCE LIMIT (URL) OF TROPONIN, DEFINED THE 99TH PERCENTILE OF cTnI DISTRIBUTION IN A REFERENCE POPULATION, HAS BEEN CONFIRMED THE DECISION THRESHOLD FOR NE DIAGNOSIS. Performed By: #### H JAY BOYD #### [facility] [address] [address] [address] Judd Andrade XR CHEST 2 Von [...] LINDA RHODES Date: 2022-06-03 12:15 Normal [facility] Covid-19 PCR (CVDTB)on SARS-CoV-2 (COVID-19) RNA JOLLY+probe Ql (Unsp spec) Not detected Normal NOT DETECTED [facility] Comment on above: Result Comment: This test is not yet approved or cleared by the [place] FDA. When there are no FDA-approved or cleared tests available, and other criteria are met, FDA can make tests available under an emergency access mechanism called an Emergency Use Authorization (EUA). The EUA for this test is supported by the Telehealth Nurse Educator of Health and Human Service's (HHS's) declaration [...] with SARS-CoV-2. Performed By: #### H DEB, JAY #### [facility] [address] [address] [address] Judd Andrade INFLUENZA A [facility] B [facility] Comment on above: Result Comment: Nega tive for Flu A protein angiten. Infection due to Flu A cannot be ruled out. Flu A angiten in the sample may be below the detection limit of the test. Performed By: #### H TERAPN, CMP #### [facility] [address] [address] [address] Judd Andrade INFLUBNEG SEE BELOW Normal [facility] Comment on above: Result Comment: Nega tive for Flu B protein antigen. Infection due to Flu B cannot be ruled out. Flu B antigen in the sample may be below the detection limit of the test. Performed By: #### H DEB, CMP #### [facility] [address] [address] [address] Judd Andrade INFLUENZA A AG Negative Normal NEGATIVE SEE COMMENT [facility] Comment on above: Performed By: #### H DEB, CMP #### [facility] [address] [address] [address] Judd Andrade INFLUENZA B AG Negative Normal NEGATIVE SEE COMMENT [facility] Comment on above: Performed By: #### H TERAPN, CMP #### [facility] [address] [address] [address] Judd [address] US ST HEAD_NECKon 02-11-2022 [...] GABO STRONG Date: 2022-02-11 16:24 Normal [facility] MG MAMM SCREEN 3D SUSANA CADon 02-10-2022 MG MAMM SCREEN 3D SUSANA CAD Patient: YULIA DORSEY Exam Date: 02/10/2022 : 1965 Gender:F Ordering : DR JOHN PORTER . Admission #: [id number] Family : Order #: [id number] CLICK HERE TO VIEW EXAM RADIOLOGY REPORT [...] breast cancer at age 40. LOCATION: [facility] BREAST COMPOSITION: Almost entirely fatty. FINDINGS: [...] Strong M.D. on 02/11/2022 at 14:20 Normal [facility] XR CHEST 1 Von 01-15-2022 [...] by: KAREN VALDEZ Date: 2022-01-15 18:39 Normal [facility] CBC AUTO DIFFon 12-30-2021 BASO # 0.0 103/ul Normal 0.0-0.1 [facility] Comment on above: Performed By: #### C BC #### [facility] [address] [address] [address] Judd Andrade Basophils/100 WBC (Bld) 0.6 % Normal 0.2-2.0 [facility] Comment on above: Performed By: #### C BC #### [facility] [address] [place] [address] Dr. Judd Andrade EO # 0.1 103/ul Normal 0.0-0.7 [facility] Comment on above: Performed By: #### C BC #### [facility] [address] [place] [address] Dr. Judd Andrade Eosinophils/100 WBC (Bld) 2.1 % Normal 0.9-7.0 [facility] Comment on above: Performed By: #### C BC #### [facility] [address] [place] [address] Dr. Judd Andrade Erythrocyte distribution width (RBC) [Ratio] 13.0 % Normal 11.0-15.0 [facility] Comment on above: Performed By: #### C BC #### [facility] [address] [place] [address] Dr. Judd Andrade Hematocrit (Bld) [Volume fraction] 41.9 % Normal 36.0-48.0 [facility] Comment on above: Performed By: #### C BC #### [facility] [address] [place] [address] Dr. Judd Andrade Hemoglobin (Bld) [Mass/Vol] 13.7 g/dL Normal 12.0-16.0 [facility] Comment on above: Performed By: #### C BC #### [facility] [address] [place] [address] Dr. Judd Andrade IG # 0.03 10e3/ul Normal 0.00-0.03 [facility] Comment on above: Performed By: #### C BC #### [facility] [address] [place] [address] Dr. Judd Andrade IG % 0.6 % Critically high 0.0-0.5 [facility] Comment on above: Performed By: #### C BC #### [facility] [address] [place] [address] Dr. Judd Andrade LYMPH # 1.9 103/ul Normal 1.2-3.8 [facility] Comment on above: Performed By: #### C BC #### [facility] [address] [place] [address] Dr. Judd Andrade Lymphocytes/100 WBC (Bld) 34.5 % Normal 20.5-60.0 [facility] Comment on above: Performed By: #### C BC #### [facility] [address] [place] [address] Dr. Judd Andrade MANUAL DIFF REQ NO Normal [facility] Comment on above: Performed By: #### C BC #### [facility] [address] [place] [address] Dr. Judd Andrade MCH (RBC) [Entitic mass] 28.5 pg Normal 26.7-34.0 [facility] Comment on above: Performed By: #### C BC #### [facility] [address] [place] [address] Dr. Judd Andrade MCHC (RBC) [Mass/Vol] 32.7 g/dL Normal 29.9-35.2 [facility] Comment on above: Performed By: #### C BC #### [facility] [address] [place] [address] Dr. Judd Andrade MCV (RBC) [Entitic vol] 87.1 fL Normal 81.0-99.0 [facility] Comment on above: Performed By: #### C BC #### [facility] [address] [place] [address] Dr. Judd Andrade MONO # 0.6 103/ul Normal 0.3-0.8 [facility] Comment on above: Performed By: #### C BC #### [facility] [address] [place] [address] Dr. Judd Andrade Monocytes/100 WBC (Bld) 10.4 % Normal 1.7-12.0 [facility] Comment on above: Performed By: #### C BC #### [facility] [address] [place] [address] Dr. Judd Andrade NEUT # 2.8 103/ul Normal 1.4-6.5 [facility] Comment on above: Performed By: #### C BC #### [facility] [address] [address] [address] Judd Andrade Neutrophils/100 WBC (Bld) 51.8 % Normal 43.0-75.0 [facility] Comment on above: Performed By: #### C BC #### [facility] [address] [address] [address] Judd Andrade Platelet mean volume (Bld) [Entitic vol] 10.5 fL Normal 9.5-13.5 [facility] Comment on above: Performed By: #### C BC #### [facility] [address] [address] [address] Judd Andrade PLT 270 103/ul Normal 150-450 [facility] Comment on above: Performed By: #### C BC #### [facility] [address] [place] [address] Dr. Judd Andrade RBC 4.81 106/ul Normal 4.20-5.40 [facility] Comment on above: Performed By: #### C BC #### [facility] [address] [place] [address] Dr. Judd Andrade WBC 5.4 103/ul Normal 4.0-11.0 [facility] Comment on above: Performed By: #### C BC #### [facility] [address] [place] [address] Dr. Judd Andrade CRPon 12-30-2021 CRP [Mass/Vol] mg/L Normal <=1.0 [facility] Comment on above: Performed By: #### C BC #### [facility] [address] [place] [address] Dr. Judd Andrade PROF 14(COMP METB)on 022 Albumin [Mass/Vol] 3.9 g/dL Normal 3.4-5.[address] [facility] Comment on above: Performed By: #### C BC #### [facility] [address] [place] [address] Dr. Judd Andrade Albumin/Globulin [Mass ratio] 1.0 {ratio} Normal [facility] Comment on above: Performed By: #### C BC #### [facility] [address] [address] [address] Judd Andrade ALP [Catalytic activity/Vol] 64 U/L Normal 46-116 [facility] Comment on above: Performed By: #### C BC #### [facility] [address] [address] [address] Judd Andrade ALT [Catalytic activity/Vol] 50 U/L Normal 14-59 [facility] Comment on above: Performed By: #### C BC #### [facility] [address] [address] [address] Judd Andrade Anion gap [Moles/Vol] 11.1 mmol/L Normal [facility] Comment on above: Performed By: #### C BC #### [facility] [address] [address] [address] Judd Andrade AST [Catalytic activity/Vol] 28 U/L Normal 15-37 [facility] Comment on above: Performed By: #### C BC #### [facility] [address] [place] [address] Dr. Judd Andrade Bilirubin [Mass/Vol] 0.5 mg/dL Normal 0.2-1.0 [facility] Comment on above: Performed By: #### C BC #### [facility] [address] [place] [address] Dr. Judd Andrade Calcium [Mass/Vol] 8.9 mg/dL Normal 8.5-10.[address] [facility] Comment on above: Performed By: #### C BC #### [facility] [address] [address] [address] Judd Andrade Chloride [Moles/Vol] 101 mmol/L Normal 98-107 [facility] Comment on above: Performed By: #### C BC #### [facility] [address] [address] [address] Judd Andrade CO2 [Moles/Vol] 29.4 mmol/L Normal 21.0-32.0 [facility] Comment on above: Performed By: #### C BC #### [facility] [address] [address] [address] Judd Andrade Creatinine [Mass/Vol] 0.73 mg/dL Normal 0.55-1.02 [facility] Comment on above: Performed By: #### C BC #### [facility] [address] [address] [address] Judd Andrade EGFR-AF PRYDEINIG >60 Normal >=60 [facility] Comment on above: Performed By: #### C BC #### [facility] [address] [address] [address] Judd Andrade EGFR-NON AF PRYDEINIG >60 Normal >=60 [facility] Comment on above: Performed By: #### C BC #### [facility] [address] [place] [address] Dr. Judd Andrade Globulin (S) [Mass/Vol] 3.8 g/dL Normal [facility] Comment on above: Performed By: #### C BC #### [facility] [address] [place] [address] Dr. Judd Andrade Glucose [Mass/Vol] 139 mg/dL Critically high 74-[address] [facility] Comment on above: Performed By: #### C BC #### [facility] [address] [place] [address] Dr. Judd Andrade Potassium [Moles/Vol] 3.5 mmol/L Normal 3.5-5.1 [facility] Comment on above: Performed By: #### C BC #### [facility] [address] [place] [address] Dr. Judd Andrade Protein [Mass/Vol] 7.7 g/dL Normal 6.4-8.2 [facility] Comment on above: Performed By: #### C BC #### [facility] [address] [place] [address] Dr. Judd Andrade Sodium [Moles/Vol] 138 mmol/L Normal 136-[address] [facility] Comment on above: Performed By: #### C BC #### [facility] [address] [place] [address] Dr. Judd Andrade Urea nitrogen [Mass/Vol] 12.0 mg/dL Normal 7.0-18.0 [facility] Comment on above: Performed By: #### C BC #### [facility] [address] [place] [address] Dr. Judd Andrade Urea nitrogen/Creatinine [Mass ratio] 16.4 mg/mg Normal [facility] Comment on above: Performed By: #### C BC #### [facility] [address] [place] [address] Dr. Judd Andrade XR CHEST 2 Von [...] ARTEMIO DIXON Date: 2021-12-29 20:49 Normal [facility] TRYPTASEon 12-27-2021 Tryptase 4.5 ug/L Normal 2.2-13.2 [facility] Comment on above: Performed By: #### C BC #### [facility] [address] [place] [address] Dr. Judd Andrade CBC AUTO DIFFon 12-23-2021 BASO # 0.0 103/ul Normal 0.0-0.1 [facility] Comment on above: Performed By: #### H STROPN, CMP #### [facility] [address] [place] [address] Dr. Judd Andrade Basophils/100 WBC (Bld) 0.7 % Normal 0.2-2.0 [facility] Comment on above: Performed By: #### H STROPN, CMP #### [facility] [address] [place] [address] Dr. Judd Andrade EO # 0.0 103/ul Normal 0.0-0.7 [facility] Comment on above: Performed By: #### H STROPN, CMP #### [facility] [address] [place] [address] Dr. Judd Andrade Eosinophils/100 WBC (Bld) 0.0 % Critically low 0.9-7.0 [facility] Comment on above: Performed By: #### H DEB, CMP #### [facility] [address] [place] [address] Dr. Judd Andrade Erythrocyte distribution width (RBC) [Ratio] 13.2 % Normal 11.0-15.0 [facility] Comment on above: Performed By: #### H STROPN, CMP #### [facility] [address] [place] [address] Dr. Judd Andrade Hematocrit (Bld) [Volume fraction] 42.1 % Normal 36.0-48.0 [facility] Comment on above: Performed By: #### H DEB, CMP #### [facility] [address] [place] [address] Dr. Judd Andrade Hemoglobin (Bld) [Mass/Vol] 13.7 g/dL Normal 12.0-16.0 [facility] Comment on above: Performed By: #### H STROPN, CMP #### [facility] [address] [place] [address] Dr. Judd Andrade IG # 0.01 10e3/ul Normal 0.00-0.03 [facility] Comment on above: Performed By: #### H DEB, CMP #### [facility] [address] [place] [address] Dr. Judd Andrade IG % 0.3 % Normal 0.0-0.5 [facility] Comment on above: Performed By: #### H STROPN, CMP #### [facility] [address] [place] [address] Dr. Judd Andrade LYMPH # 0.7 103/ul Critically low 1.2-3.[address] [facility] Comment on above: Performed By: #### H STROPN, CMP #### [facility] [address] [place] [address] Dr. Judd Andrade Lymphocytes/100 WBC (Bld) 24.1 % Normal 20.5-60.0 [facility] Comment on above: Performed By: #### H STROPN, CMP #### [facility] [address] [place] [address] Dr. Judd Andrade MANUAL DIFF REQ NO Normal [facility] Comment on above: Performed By: #### H STROPN, CMP #### [facility] [address] [place] [address] Dr. Judd Andrade MCH (RBC) [Entitic mass] 28.4 pg Normal 26.7-34.0 [facility] Comment on above: Performed By: #### H STROPN, CMP #### [facility] [address] [place] [address] Dr. Judd Andrade MCHC (RBC) [Mass/Vol] 32.5 g/dL Normal 29.9-35.2 [facility] Comment on above: Performed By: #### H STROPN, CMP #### [facility] [address] [place] [address] Dr. Judd Andrade MCV (RBC) [Entitic vol] 87.2 fL Normal 81.0-99.0 [facility] Comment on above: Performed By: #### H STROPN, CMP #### [facility] [address] [place] [address] Dr. Judd Andrade MONO # 0.5 103/ul Normal 0.3-0.8 [facility] Comment on above: Performed By: #### H STROPN, CMP #### [facility] [address] [place] [address] Dr. Judd Andrade Monocytes/100 WBC (Bld) 16.9 % Critically high 1.7-12.0 [facility] Comment on above: Performed By: #### H STROPN, CMP #### [facility] [address] [place] [address] Dr. Judd Andrade NEUT # 1.8 103/ul Normal 1.4-6.5 [facility] Comment on above: Performed By: #### H STROPN, CMP #### [facility] [address] [place] [address] Dr. Judd Andrade Neutrophils/100 WBC (Bld) 58.0 % Normal 43.0-75.0 [facility] Comment on above: Performed By: #### H STROPN, CMP #### [facility] [address] [address] [address] Judd Andrade Platelet mean volume (Bld) [Entitic vol] 9.9 fL Normal 9.5-13.5 [facility] Comment on above: Performed By: #### H TERAPN, CMP #### [facility] [address] [address] [address] Judd Andrade PLT 210 103/ul Normal 150-450 [facility] Comment on above: Performed By: #### H TERAPN, CMP #### [facility] [address] [address] [address] Judd Andrade RBC 4.83 106/ul Normal 4.20-5.40 [facility] Comment on above: Performed By: #### H TERAPN, CMP #### [facility] [address] [place] [address] Dr. Judd Andrade WBC 3.1 103/ul Critically low 4.0-11.0 [facility] Comment on above: Performed By: #### H TERAPN, CMP #### [facility] [address] [place] [address] Dr. Judd Andrade IRONon 12-23-2021 Iron [Mass/Vol] 35.0 ug/dL Critically low 50.0-170.0 [facility] Comment on above: Performed By: #### C BC #### [facility] [address] [place] [address] Dr. Judd Andrade PROF 14(COMP METB)on 022 Albumin [Mass/Vol] 3.9 g/dL Normal 3.4-5.[address] [facility] Comment on above: Performed By: #### C BC #### [facility] [address] [place] [address] Dr. Judd Andrade Albumin/Globulin [Mass ratio] 1.0 {ratio} Normal [facility] Comment on above: Performed By: #### C BC #### [facility] [address] [place] [address] Dr. Judd Andrade ALP [Catalytic activity/Vol] 70 U/L Normal 46-116 [facility] Comment on above: Performed By: #### C BC #### [facility] [address] [address] [address] Judd Andrade ALT [Catalytic activity/Vol] 43 U/L Normal 14-59 [facility] Comment on above: Performed By: #### C BC #### [facility] [address] [address] [address] Judd Andrade Anion gap [Moles/Vol] 11.5 mmol/L Normal [facility] Comment on above: Performed By: #### C BC #### [facility] [address] [address] [address] Judd Andrade AST [Catalytic activity/Vol] 33 U/L Normal 15-37 [facility] Comment on above: Performed By: #### C BC #### [facility] [address] [place] [address] Dr. Judd Andrade Bilirubin [Mass/Vol] 0.3 mg/dL Normal 0.2-1.0 [facility] Comment on above: Performed By: #### C BC #### [facility] [address] [address] [address] Judd Andrade Calcium [Mass/Vol] 8.9 mg/dL Normal 8.5-10.[address] [facility] Comment on above: Performed By: #### C BC #### [facility] [address] [address] [address] Judd Andrade Chloride [Moles/Vol] 101 mmol/L Normal 98-107 [facility] Comment on above: Performed By: #### C BC #### [facility] [address] [address] [address] Judd Andrade CO2 [Moles/Vol] 31.1 mmol/L Normal 21.0-32.0 [facility] Comment on above: Performed By: #### C BC #### [facility] [address] [address] [address] Judd Andrade Creatinine [Mass/Vol] 0.69 mg/dL Normal 0.55-1.02 [facility] Comment on above: Performed By: #### C BC #### [facility] [address] [address] [address] Judd Andrade EGFR-AF PRYDEINIG >60 Normal >=60 [facility] Comment on above: Performed By: #### C BC #### [facility] [address] [address] [address] Judd Andrade EGFR-NON AF PRYDEINIG >60 Normal >=60 [facility] Comment on above: Performed By: #### C BC #### [facility] [address] [address] [address] Judd Andrade Globulin (S) [Mass/Vol] 3.8 g/dL Normal [facility] Comment on above: Performed By: #### C BC #### [facility] [address] [address] [address] Judd Andrade Glucose [Mass/Vol] 103 mg/dL Normal 74-106 [facility] Comment on above: Performed By: #### C BC #### [facility] [address] [address] [address] Judd Andrade Potassium [Moles/Vol] 3.6 mmol/L Normal 3.5-5.1 [facility] Comment on above: Performed By: #### C BC #### [facility] [address] [address] [address] Judd Andrade Protein [Mass/Vol] 7.7 g/dL Normal 6.4-8.2 [facility] Comment on above: Performed By: #### C BC #### [facility] [address] [address] [address] Judd Andrade Sodium [Moles/Vol] 140 mmol/L Normal 136-145 [facility] Comment on above: Performed By: #### C BC #### [facility] [address] [address] [address] Judd Andrade Urea nitrogen [Mass/Vol] 11.0 mg/dL Normal 7.0-18.0 [facility] Comment on above: Performed By: #### C BC #### [facility] [address] [place] [address] Dr. Judd Andrade Urea nitrogen/Creatinine [Mass ratio] 15.9 mg/mg Normal [facility] Comment on above: Performed By: #### C BC #### [facility] [address] [place] [address] Dr. Judd Andrade PROTIMEon 12-23-2021 INR Coag (PPP) [Relative time] 1.04 {INR} Normal [facility] Comment on above: Performed By: #### H DEB, CMP #### [facility] [address] [place] [address] Dr. Judd Andrade INR GUIDELINES SEE BELOW Normal [facility] Comment on above: Result Comment: PRIETO RED INR: 2.0 - 3.0 CONDITIONS NOT LISTED BELOW 2.5 - 3.5 FOR PROSTHETIC HEART VALVE REPLACEMENT 2.5 - 3.5 RECURRENT THROMBOSIS Performed By: #### H DEB, CMP #### [facility] [address] [place] [address] Dr. Judd Andrade PT Coag (PPP) [Time] 11.2 s Normal 9.0-11.6 [facility] Comment on above: Performed By: #### H DEB, CMP #### [facility] [address] [place] [address] Dr. Judd Andrade PTTon 12-23-2021 aPTT Coag (Bld) [Time] 31.5 s Normal 22.3-36.2 [facility] Comment on above: Performed By: #### Sara BOYD, CMP #### [facility] [address] [place] [address] Dr. Judd Andrade ER URINE PROFILEon 2 Bilirubin Ql (U) Negative Normal NEGATIVE [facility] Comment on above: Performed By: #### H DEB, CMP #### [facility] [address] [place] [address] Dr. Judd Andrade Clarity (U) CLEAR Normal CLEAR [facility] Comment on above: Performed By: #### H DEB, CMP #### [facility] [address] [place] [address] Dr. Judd Andrade Color (U) LT. YELLOW Normal YELLOW [facility] Comment on above: Performed By: #### H STROPN, CMP #### [facility] [address] [address] [address] Judd SMITH A micrscopic examination will be performed if indicated. Normal [facility] Comment on above: Performed By: #### H STROPN, CMP #### [facility] [address] [place] [address] Dr. Judd Andrade Glucose Ql (U) Negative Normal NEGATIVE [facility] Comment on above: Performed By: #### H STROPN, CMP #### [facility] [address] [place] [address] Dr. Judd Andrade Hemoglobin Ql (U) TRACE-INTACT Abnormal NEGATIVE [facility] Comment on above: Performed By: #### H STROPN, CMP #### [facility] [address] [place] [address] Dr. Judd Andrade Ketones Ql (U) Negative Normal NEGATIVE [facility] Comment on above: Performed By: #### H STROPN, CMP #### [facility] [address] [place] [address] Dr. Judd Andrade LEUKOCYTES Negative Normal NEGATIVE [facility] Comment on above: Performed By: #### H STROPN, CMP #### [facility] [address] [place] [address] Dr. Judd Andrade Nitrite Ql (U) Negative Normal NEGATIVE [facility] Comment on above: Performed By: #### H STROPN, CMP #### [facility] [address] [place] [address] Dr. Judd Andrade pH (U) 6.0 [pH] Normal 5-9 [facility] Comment on above: Performed By: #### H STROPN, CMP #### [facility] [address] [place] [address] Dr. Judd Andrade SPEC GRAVITY 1.005 Normal 1.005-<=1.025 [facility] Comment on above: Performed By: #### H STROPN, CMP #### [facility] [address] [place] [address] Dr. Judd Andrade UA PROTEIN Negative Normal NEGATIVE/ TRACE [facility] Comment on above: Performed By: #### H STROPN, CMP #### [facility] [address] [place] [address] Dr. Judd Andrade UR MICRO IND INDICATED Normal [facility] Comment on above: Performed By: #### H STROPN, CMP #### [facility] [address] [place] [address] Dr. Judd Andrade Urobilinogen Qn (U) 0.2 {Carol'U}/dL Normal 0.2 - 1. 0 [facility] Comment on above: Performed By: #### H STROPN, CMP #### [facility] [address] [place] [address] Dr. Judd Andrade URINE MICROSCOPIC ONLYon BACTERIA NONE SEEN Normal NONE SEEN [facility] Comment on above: Performed By: #### H STROPN, CMP #### [facility] [address] [place] [address] Dr. Judd Andrade Bacteria identified Cx Nom (U) NOT INDICATED Normal [facility] Comment on above: Performed By: #### H STROPN, CMP #### [facility] [address] [place] [address] Dr. Judd Andrade CAST NONE SEEN Normal NONE SEEN [facility] Comment on above: Performed By: #### H STROPN, CMP #### [facility] [address] [place] [address] Dr. Judd Andrade Crystals LM Nom (Urine sed) NONE SEEN Normal NONE SEEN [facility] Comment on above: Performed By: #### H STROPN, CMP #### [facility] [address] [place] [address] Dr. Judd Andrade Epithelial cells LM Ql (Urine sed) FEW Abnormal NONE SEEN /RARE [facility] Comment on above: Performed By: #### H STROPN, CMP #### [facility] [address] [place] [address] Dr. Judd Andrade MUCOUS NONE SEEN Normal NONE SEEN [facility] Comment on above: Performed By: #### H STROPN, CMP #### [facility] [address] [address] [address] Judd Andrade RBC 0-2 Normal 0-2 [facility] Comment on above: Performed By: #### H STROPN, CMP #### [facility] [address] [address] [address] Judd Andrade WBC NONE SEEN Normal NONE SEEN [facility] Comment on above: Performed By: #### H STROPN, CMP #### [facility] [address] [address] [address] Judd Andrade Vital Signs Date Time Vital Sign Value Performing Clinician Facility 01-20-2024 12:02-0400 Body mass index (BMI) [Ratio] 28.34 kg/m2 Katie Yocasta DO Work Phone: [facility] 01-20-2024 12:02-0400 Body weight 72.58 kg Katie Yocasta DO Work Phone: [facility] 01-20-2024 12:02-0400 Diastolic blood pressure 80 mm[Hg] Katie Yocasta DO Work Phone: [facility] 01-20-2024 12:02-0400 Systolic blood pressure 160 mm[Hg] Katie Yocasta DO Work Phone: [facility] 01-03-2024 13:11-0400 Body mass index (BMI) [Ratio] 28.17 kg/m2 Katie Yocasta DO Work Phone: [facility] 01-03-2024 13:11-0400 Body weight 72.12 kg Katie Yocasta DO Work Phone: [facility] 01-03-2024 13:11-0400 Diastolic blood pressure 70 mm[Hg] Katie Yocasta DO Work Phone: [facility] 01-03-2024 13:11-0400 Systolic blood pressure 120 mm[Hg] Katie Yocasta DO Work Phone: [facility] 12-30-2023 13:48-0400 Blood Pressure Location Bessie Reuben [facility] 12-30-2023 13:48-0400 Diastolic blood pressure 82 mm[Hg] Bessie Galea [facility] 12-30-2023 13:48-0400 Heart rate 80 /min Bessie Galea [facility] 12-30-2023 13:48-0400 Respiratory rate 16 /min Bessie Galea [facility] 12-30-2023 13:48-0400 Systolic blood pressure 117 mm[Hg] Bessie Galea [facility] 12-21-2023 11:47-0400 Body mass index (BMI) [Ratio] 27.99 kg/m2 Radha KAY Work Phone: [facility] 12-21-2023 11:47-0400 Body weight 71.67 kg Radha KAY Work Phone: [facility] 12-21-2023 11:47-0400 Diastolic blood pressure 78 mm[Hg] Radha KAY Work Phone: [facility] 12-21-2023 11:47-0400 Systolic blood pressure 118 mm[Hg] Radha KAY Work Phone: [facility] Healthcare Encounters Encounter Date Encounter Type Care Provider Facility Start: 09-15-2024 End: 09-15-2024 ambulatory [facility] Start: 09-05-2024 End: 09-05-2024 Chart abstracting Scanning Provider External [facility] Start: 08-29-2024 End: 08-29-2024 ambulatory [facility] Start: 08-17-2024 End: 08-17-2024 [facility] Start: 08-08-2024 End: 08-08-2024 [facility] Start: 07-03-2024 End: 07-03-2024 [facility] Start: 06-19-2024 End: 06-19-2024 [facility] Start: 06-06-2024 End: 06-06-2024 [facility] Start: 05-30-2024 End: 05-30-2024 Clinisync Result Encounter Katie Yocasta DO Work Phone: [facility] External Department Unsolicited Start: 05-30-2024 End: 05-30-2024 Clinisync Result Encounter Katie Yocasta DO Work Phone: [facility] External [facility] Unsolicited Start: 05-29-2024 End: 05-29-2024 [facility] Start: 05-22-2024 End: 05-22-2024 [facility] Start: 05-08-2024 End: 05-08-2024 [facility] Start: 01-20-2024 End: 01-20-2024 Bamboo flowsheet [...] 01-07-2024 ambulatory MD John Porter Work Phone: [facility] Work Phone: Start: 01-07-2024 End: 01-07-2024 Departed Referred MD John Porter Work Phone: [facility] Start: 01-03-2024 End: 01-03-2024 Bamboo flowsheet Aktie Yocasta DO Work Phone: [facility] Start: 01-03-2024 End: 01-03-2024 Bamboo flowsheet Katie Yocasta DO Work Phone: [facility] Start: 01-03-2024 End: 01-03-2024 Office outpatient visit 15 minutes Katie Yocasta DO Work Phone: [facility] Comment on above: Pre-op examination; Yeast infection; Thickened endometrium; Pelvic pain Start: 01-03-2024 End: 01-03-2024 Preprocedural examination done Katie Yocasta DO Work Phone: [facility] Healthcare Start: 01-03-2024 End: 01-03-2024 ambulatory KATIE YOCASTA Not Available Start: 12-30-2023 End: 12-30-2023 ambulatory Bessie Gong Facility:[facility] Start: 12-30-2023 End: 12-30-2023 Patient encounter procedure Bessie Gong [facility] Start: 12-29-2023 End: 12-29-2023 Phys/qhp telephone evaluation 5-10 min Katie Yocasta DO Work Phone: [facility] Comment on above: Urinary tract infect ion without hematuria, site unspecified; Vulvar irritation Start: 12-21-2023 End: 12-21-2023 Bamboo flowsheet Radha KAY Work Phone: [facility] Start: 12-21-2023 End: 12-22-2023 Bamboo flowsheet Radha KAY Work Phone: [facility] Start: 12-21-2023 End: 12-22-2023 External Result Encounter Radha KAY Work Phone: [facility] External Department Unsolicited Start: 12-21-2023 End: 12-21-2023 ambulatory RADHA TINSLEY Not Available Start: 12-21-2023 End: 12-21-2023 Office outpatient visit 15 minutes Radha KAY Work Phone: [facility] Comment on above: Vaginal burning; [...] response examination DR JOHN PORTER . [facility] Start: 06-26-2022 End: 06-27-[address] [...] Cystourethroscopy with dilation of urethral stricture Bessie Gong Appendectomy Bessie Gong H/O: surgery S/P D&C (status post dilation and curettage) Katie Rust DO Work Phone: History of cholecystectomy Venessa Gong Tonsillectomy Bessie Gong Plan of Treatment Date Care Activity Detail Author Start: 10-05-2032 DTaP,Tdap and Td Vac cines (2 - Td or Tdap) DTaP,Tdap and Td Vaccines (2 - Td or Tdap) [facility] Start: 12-25-2024 Influenza vaccination Influenza Vacc ine [facility] Start: 07-19-2024 End: 07-19-2024 Patient encounter procedure 07/19/2024 3:40 PM EDT Office Visit [facility] [address] [id number] Katie Rust, DO [address] [place] [address] [place] [address] [facility] Start: 01-07-2024 End: 01-07-2024 Patient encounter procedure 01/07/2024 9:00 AM EDT Procedure Visit [facility] Katie Rust, DO [address] [place] [address] [facility] Start: 01-03-2024 End: 01-03-2024 Patient encounter procedure [facility] Comment on above: Arrived Start: 12-29-2023 End: 12-29-2023 Patient encounter procedure [facility] Start: 08-19-2015 Administration of varicella zoster vaccine Zoster (Shingles) Vaccine (1 of 2) [facility] Start: 1986 Screening for malign ant neoplasm of cervix Pap Smear [facility] Start: 08-19-1983 Adult BMI Screening Adult BMI Screen ing [facility] Start: 1977 Depression Screening Depression Scre ening [facility] Start: 1977 Tobacco Screening Tobacco Screening [facility] CHLAMYDIA TRACHOMATI S (GENITO/STI) CHLAMYDIA TRACHOMATIS (GENITO/STI) Lab Routine Vaginal burning Vaginal itching Ordered: 12/21/2023 [facility] Healthcare Comment on above: Ordered: 12/21/2023 Neisseria gonorrhoea e DNA [Presence] in Unspecified specimen by JOLLY with probe detection Neisseria gonorrhea DNA probe, direct Lab Routine Vaginal burning Vaginal itching Ordered: 12/21/2023 [facility] Comment on above: Ordered: 12/21/2023 SURESWAB(R) ADVANCED VAGINITIS PLUS, TMA SURESWAB(R) ADVANCED VAGINITIS PLUS, TMA Pathology and Cytology Routine Vaginal burning Vaginal itching Ordered: 12/21/2023 [facility] Healthcare Work Phone: Comment on above: Ordered: 12/21/2023 Immunizations Immunization Date Immunization Notes Care Provider Mukesh merritt 10-05-2022 tetanus toxoid, redu heide diphtheria toxoid, and acellular pertussis vaccine, adsorbed Bessie Galea [facility] Payers Date Payer Category Payer Self-pay [id number] 2023 Unknown [id number] 2022 Managed Care Other (unspecified) FRONTPATH [id number] 2020 Private Health Insurance [employer]TAK TH [id number] 2020 Unknown FRONTPATH FRONTP ATH [id number] 2020-Present [phone] [facility] [address] [place] [address] [id number] [id number] 1965 Unknown [id number] 2.16.840.1.514928.3.579. 2.593 1965 Unknown [id number] 2.16.840.1.855276.3.579. 2.593 1965 Unknown [id number] 2.16.840.1.970230.3.579. 2.593 1965 Unknown [id number] 2.16.840.1.284978.3.579. 2.593 1965 Unknown [id number] 2.16.840.1.158393.3.579. 2.593 1965 Unknown [id number] 2.16.840.1.568507.3.579. 2.593 1965 Unknown [id number] 2.16.840.1.514885.3.579. 2.593 1965 Unknown [id number] 2.16.840.1.493614.3.579. 2.593 1965 Unknown [id number] 2.16.840.1.469363.3.579. 2.593 1965 Unknown [id number] 2.16.840.1.196756.3.579. 2.593 1965 Unknown [id number] 2.16.840.1.610561.3.579. 2.593 1965 Unknown [id number] 2.16.840.1.603897.3.579. 2.593 1965 Unknown [id number] 2.16.840.1.998938.3.579. 2.593 1965 Unknown [id number] 2.16.840.1.507638.3.579. 2.593 1965 Unknown [id number] 2.16.840.1.004893.3.579. 2.593 1965 Unknown [id number] 2.16.840.1.956520.3.579. 2.593 1965 Unknown [id number] 2.16.840.1.244317.3.579. 2.593 1965 Unknown [id number] 2.16.840.1.374481.3.579. 2.593 1965 Unknown [id number] 2.16.840.1.509376.3.579. 2.593 1965 Unknown [id number] 2.16.840.1.012095.3.579. 2.593 1965 Unknown [id number] 2.16.840.1.410186.3.579. 2.593 1965 Unknown [id number] 2.16.840.1.013435.3.579. 2.593 1965 Unknown [id number] 2.16.840.1.543855.3.579. 2.593 1965 Unknown [id number] 2.16.840.1.257032.3.579. 2.593 1965 Unknown [id number] 2.16.840.1.818944.3.579. 2.1259 1965 Unknown [id number] 2.16.840.1.218289.3.579. 2.1259 1965 Unknown [id number] 2.16.840.1.360341.3.579. 2.9 1965 Unknown [id number] 2.16.840.1.973849.3.579. 2.9 1965 Unknown [id number] 2.16.840.1.368686.3.579. 2.9 1965 Unknown [id number] 2.16.840.1.669382.3.579. 2.9 1965 Unknown [id number] 2.16.840.1.680643.3.579. 2.727 1965 Unknown [id number] 2.16.840.1.659099.3.579. 2.1285 1965 Unknown [id number] 2.16.840.1.043167.3.579. 2.1285 1965 Unknown [id number] 2.16.840.1.723507.3.579. 2.1285 1965 Unknown [id number] 2.16.840.1.675996.3.579. 2.1285 1965 Unknown [id number] 2.16.840.1.483766.3.579. 2.1285 1965 Unknown [id number] 2.16.840.1.399240.3.579. 2.1285 1965 Unknown [id number] 2.16.840.1.753955.3.579. 2.128 1965 Unknown [id number] 2.16.840.1.825250.3.579. 2.1285 1965 Unknown [id number] 2.16.840.1.427785.3.579. 2.1285 1965 Unknown [id number] 2.16.840.1.818694.3.579. 2.1286 1959 Self-pay [id number] 1959 Unknown [id number] 1959 Unknown [id number] Unknown [id number] 2.16.840.1.454098.3.579. 2.531 Social History Date Type Detail Facility Start: 12-30-2022 End: 12-30-2023 Tobacco smoking status Ex-smoker (finding) [facility] Tobacco smoking status Never [facility] Start: 05-07-2020 End: 12-21-2023 Sex Assigned At Female [facility] Start: 09-05-2013 End: 09-11-2020 Tobacco smoking status NHIS Never smoked tobacco (finding) [facility] Start: 1965 Sex Assigned At Female [facility] History of tobacco use Current smoker [facility] History of tobacco use Cigarette Smoker [facility] Start: 01-03-2024 End: 01-20-2024 Alcoholic beverage intake Lifetime non-drinker (finding) [facility] Start: 05-07-2020 End: 12-21-2023 History of Social function [facility] Start: 12-30-2022 Alcohol Comment Caffeine: none [facility] Start: 1965 Sex assigned at Not on file [facility] Start: 09-11-2020 Tobacco use and exposure Smokeless tobacco non-user [facility] Start: 11-29-2014 Sex Female (finding) [facility] Functional Status Date Assessment Result Facility 12-30-2023 Functional Status N/A [facility] Clinical Notes 12-21-2023 to 01-20-2024 Deepti Palacios LPN - 01/20/2024 11:50 AM EDLuis Palacios LPN - 01/03/2024 1:00 PM Carlos [...] nursing note reviewed. Exam conducted with a fuels engineer present. Vitals: Estimated body mass index is [...] Katie Rust DO documented in this encounter [facility] 01-03-2024 History of Presen t illness [...] 08/14/2013 Acute pelvic pain 10/28/2022 Anxiety state ([facility]) 08/14/2013 Bilateral tinnitus 10/28/2022 Cervical disc disorder 08/14/2013 Fibrocystic breast changes 10/28/2022 Generalized anxiety disorder ([facility]) 03/28/2019 Intermittent vertigo 04/26/2004 Irritable bowel [...] nursing note reviewed. Exam conducted with a fuels engineer present. Vitals: Estimated body mass index is [...] reviewed, and patient is to proceed to [facility] OR. Follow Up: Patient is to follow up between 1-2 weeks post operative to assess proper healing and recovery from procedure. Documented by Deepti Palacios LPN on behalf of: Katie Rust DO documented in this encounter [facility] 12-30-2023 Hospital Discharg e instructions Patient [...] provider. Document Revised: 08/21/2021 Document Reviewed: 08/21/2021 [employer] Patient Education 2023 [employer]. Follow Up Care 12/02/2023 13:46:26 With:Farideh BARRERA, Bessie Modi, URL Address: When: Unknown Comments:pending imaging and after PFPT [facility] 12-30-2023 Note Patient Education Obstetrics and [...] provider. Document Revised: 08/21/2021 Document Reviewed: 08/21/2021 [employer] Patient Education ? 2023 [employer]. [facility] 12-29-2023 History of Presen t illness Narrative Reason for Appointment: Patient ID: Yulia Dorsey is a 58 y.o. female who presents for Telehealth, UTI, and kidney stone Patient presents today via telephone call for a telehealth appointment. Patients Phone #: [phone] (mobile) Current Medications: has a current medication list which includes the following prescription(s): vitamin c, calcium carbonate, oyfhxyt-nemdnbevd-yuyr, airborne elderberry, and multivitamin. Medical History: Active Ambulatory Problems Diagnosis Date Noted GERD (gastroesophageal reflux disease) 08/14/2013 Acute pelvic pain 10/28/2022 Anxiety state ([facility]) 08/14/2013 Bilateral tinnitus 10/28/2022 Cervical disc disorder 08/14/2013 Fibrocystic breast changes 10/28/2022 Generalized anxiety disorder ([facility]) 03/28/2019 Intermittent vertigo 04/26/2004 Irritable bowel syndrome 08/14/2013 Major depressive disorder, single episode, moderate (HCC) ([facility]) 03/28/2019 Meniere's disease 08/14/2013 Menopausal symptoms 11/17/2016 Menorrhagia 10/28/2022 Other specified hearing loss, right ear 02/25/2016 Pressure in head 04/26/2015 Psychological factors affecting medical condition 11/17/2016 Shoulder joint pain 10/28/2022 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 Thickened endometrium 10/28/2022 Viral hepatitis [...] Katie Rust DO documented in this encounter [facility] 12-21-2023 History of Presen t illness [...] of: ELIZA Mccollum documented in this encounter [facility] Evaluation + Plan note No data available for this section [facility] Evaluation note No assessment inform ation available [facility] Work Phone: Evaluation note Diagnosis Vaginal burning Other specified symptom associated with female genital organs Vaginal itching Pruritus of genital organs documented in this encounter [facility] HealthcareEvaluation note* Diagnosis Urinary tract infection without hematuria, site unspecified Vulvar irritation documented in this encounter [facility] HealthcareEvaluation note* Diagnosis Pre-op examination Yeast infection Thickened endometrium Nonspecific (abnormal) findings on radiological and other examination of genitourinary organs Pelvic pain documented in this encounter [facility] HealthcareEvaluation note* Diagnosis Postoperative visit S/P D&C (status post dilation and curettage) Other postprocedural status documented in this encounter [facility] HealthcareInstructionsNot on filedocumented in this [facility] SystemProgress note No data available for this section [facility] Summary Purpose Family History No Family History Records Found Relationship Condition Age at Onset Recorded Date/T lópez father Heart disease Unknown mother Unknown History of stroke Unknown Advance Directives No Advanced Directives Records Found Advance Directive Response Recorded Date/ Time Advance Directives No July 15 11:52am Additional Source Comments INFORMATION SOURCE (unrecogn ized section and content) DATE CREATED AUTHOR 10/02/2022 [facility] DATE CREATED AUTHOR AUTHOR'S ORGANIZ ATION 01/04/2024 [facility] EPIC DATE CREATED AUTHOR AUTHOR'S ORGANIZ ATION 01/09/2024 [facility] DATE CREATED AUTHOR AUTHOR'S ORGANIZ ATION 01/14/2024 [facility] DATE CREATED AUTHOR AUTHOR'S ORGANIZ ATION 09/21/[address] [facility] Patient Care team informatio n (unrecognized section and content) Team Status: Active Member Role Status Dates John Porter MD Primary Care Provider Active Team Status: Inactive Member Role Status Dates John Porter MD Primary Care Provider Active Start: January 07, 2024 End: January 07, 2024 Katie Rust DO Attending Provider Active Start : January 07, 2024 End: January 07, 2024 Linux Support Engineer Relationship Specialty Start Date End Date John Porter MD [address] [place] [address] PCP - General 09/13/22 Linux Support Engineer Relationship Specialty Start Date End Date John Porter MD [address] [place] [address] PCP - General 09/13/22 Linux Support Engineer Relationship Specialty Start Date End Date John Porter MD [address] [place] [address] PCP - General 09/13/22 Linux Support Engineer Relationship Specialty Start Date End Date John Porter MD [address] [place] [address] PCP - General 09/13/22 Linux Support Engineer Relationship Specialty Start Date End Date John Porter MD [address] [place] [address] PCP - General 09/13/22 Linux Support Engineer Relationship Specialty Start Date End Date John Porter MD [address] [place] [address] PCP - General 09/13/22 Linux Support Engineer Relationship Specialty Start Date End Date John Porter MD [address] [place] [address] PCP - General 09/13/22 Linux Support Engineer Relationship Specialty Start Date End Date John [...] BE BASED ON THE PRIMARY CLINICAL RECORDS. [facility] [employer] [facility]. provides no warranty or guarantee of the accuracy or completeness of information in this document.
[2024-09-27 08:32] LABS: Alanine Aminotransferase 28 U/L (14-59); Albumin Level 3.8 g/dL (3.4-5.0); Alkaline Phosphatase 73 U/L (46-116); Anion Gap 13.4; Aspartate Amino Transferase 18 U/L (15-37); BUN Creatinine Ratio 22.1; Bilirubin Total 0.6 mg/dL (0.2-1.0); Calcium 9.6 mg/dL (8.5-10.1); Carbon Dioxide 30.5 mmol/L (21.0-32.0); Chloride 103 mmol/L (98-107); Estimated GFR (African America >60 (>=60 mL/min/1.73m^2); Estimated GFR (Non-African Ame >60 (>=60 mL/min/1.73m^2); Free T3 2.51 pg/mL (2.18-3.98); Globulin 3.8 g/dL; Glucose 91 mg/dL (74-106); Potassium 3.9 mmol/L (3.5-5.1); Sodium 143 mmol/L (136-145); Thyroid Stimulating Hormone 1.423 uIU/mL (0.358-3.740); Total Protein 7.6 g/dL (6.4-8.2)
[2024-09-28 04:08] LABS: CA 19-9 3 U/mL (0-35); CEA 2.1 ng/mL (0.0-4.7)
[2024-09-28 05:08] LABS: HBsAg Screen Negative (Negative); HCV Ab Non Reactive (Non Reactive); Hep A Ab, IgM Negative (Negative); Hep B Core Ab, IgM Negative (Negative)
[2024-09-28 08:09] LABS: CA 15-3 14.3 U/mL (0.0-25.0)
== END 2024-09-27 07:43 | disposition home or self-care (01) ==
LOC: LAB 07:44
PROVIDERS: PCP Family Medicine; Visit Provider Family Medicine
DX: R63.4 Abnormal weight loss (principal); R53.83 Other fatigue
CPT/HCPCS: 36415; 80053; 80074; 82378; 84436; 84443; 84481; 85025; 86300; 86301

== ENCOUNTER 2024-10-05 07:37 | Outpatient (OUT) | payer OTHER, SELFPAY ==
--- OUTSIDE RECORDS SUMMARY | 2024-09-21 14:04 | XMS_ITS ---
Author Organization [facility] [place] Address [address] [place] [address] Care Team Providers Care Electrical Prospecting Supervisor Name Role Phone Prashant Porter Primary Care Provider [phone] REASON FOR VISIT cortisol level- Encounters Encounter Location Date Provider Diagnosis [facility] [address] [place] [address] 09/21/2024 Prashant Porter Plan Of Treatment Next Appt Details Provider Name:Prashant Porter, 10:30:00 AM, [address] [place], [address], Progress Notes * Quang DORSEYOB:1965 ( 59 yo F)Acc No.[id number]:09/21/2024 Patient: Eugenia SANTOS :1965 A ge:59 Y S ex:Female Address:[place], [address] * true * Date: Generated for Toñoi lambert/Pedritog/eTransmitting on: 0 10/05/2024 07:42 AM EDT
--- OUTSIDE RECORDS SUMMARY | 2024-09-27 17:33 | XMS_ITS ---
Author Organization [facility] in [place] Address [address] [place] [address] Care Team Providers Care Travel Registered Nurse Icu Name Role Phone Prashant Porter Primary Care Provider REASON FOR VISIT lab results Encounters Encounter Location Date Provider Diagnosis [address] [address] 09/27/2024 Prashant Porter Plan Of Treatment Next Appt Details Provider Name:Prashant Porter, 10:30:00 AM, [address] [place], [address], Progress Notes * Quang DORSEYOB:1965 ( 59 yo F)Acc No.[id number]:09/27/2024 Patient: Eugenia SANTOS :1965 A ge:59 Y S ex:Female Address:[place], [address] * true * Date: Generated for Printi ng/Famadang/eTransmitting on: 0 10/05/2024 07:41 AM EDT
--- OUTSIDE RECORDS SUMMARY | 2024-09-28 16:17 | XMS_ITS ---
Author Organization [facility] in [place] Address [address] [place] [address] Care Team Providers Care Upper Trimmer Name Role Phone Prashant Porter Primary Care Provider REASON FOR VISIT Labb resultss Encounters Encounter Location Date Provider Diagnosis [address] [address] 09/28/2024 Prashant Porter Plan Of Treatment Next Appt Details Provider Name:Prashant Porter, 10:30:00 AM, [address] [place], [address], Progress Notes * Quang DORSEYOB:1965 ( 59 yo F)Acc No.[id number]:09/28/2024 Patient: Eugenia SANTOS :1965 A ge:59 Y S ex:Female Address:[place], [address] * true * Date: Generated for Toñoi lambert/Hortensia/eTransmitting on: 0 10/05/2024 07:42 AM EDT
--- OUTSIDE RECORDS SUMMARY | 2024-10-05 07:41 | XMS_ITS | Clinical Summary ---
Author Organization [facility] [employer] Address [id number] [address] [place] [address] Care Team Providers Care Water Resource Engineering Specialist Name Role Phone Estiven Porter MD [...] 09/15/2024 Travel 09/05/2024 Orders Only [facility] [address] [place] [address] Ref Prov, Not In System 09/05/2024 Abstract [facility] [address] [place] [address] External, Scanning Provider 08/29/2024 Travel 08/17/2024 Travel 08/08/2024 Travel from Last 3 Months Family History [...] got money to buy more. Never True 09/27/2024 Within the past 12 months th e food we bought just didn't last and we didn't have money to get more. Never True 09/27/2024 Purpose - Life Answer Date Recorded Purpose [...] 1:00 PM EDT Office Visit [facility] [address] [place] [id number] Allyson Thomas MD [address] [place] [address] Health Maintenance Due Date Last Done Comments [...] EDT) us Not In System Ref Prov [facility] Final Res ult from Last 3 Months Insurance FRON[employer] Care Teams Water Resource Engineering Specialist Relationship Specialty Start Date End Date Estiven Porter MD PCP - General Family Medicine 03/22/19
--- OUTSIDE RECORDS SUMMARY | 2024-10-05 07:41 | XMS_ITS | CCD ---
Author Organization [facility] Care Team Providers Care Product Development Manager Name Role Phone ABELINOY ., DR LOPEZ [...] Unavailable YOCASTA ., DR WILSON Attending Unavailable MENTMORE, DR ELLYN Dougherty Consulting Unavailable HOY ., [...] Consulting Unavailable German, John Primary Care Physician VALE HI Attending Unavailable RALF RENDON Referring Unavailable YOCASTA, KATIE Attending Unavailable YOCASTA, KATIE Attending Unavailable YOCASTA, KATIE Attending Unavailable RADHA TINSLEY Attending Unavailable YOCASTA, KATIE Attending Unavailable MD John Porter Primary Care Provider [phone] DO Katie Rust Attending Provider Bessie Gong Attending Unavailable Hoy, John M Primary Care Unavailable Yocasta, Katie Attending Unavailable Yocasta, Katie Admitting Unavailable John Porter MD Primary Care Provider [phone] John Porter MD Primary Care Provider [phone] IRIS GABRIEL Attending Unavailable HOY, JOHN M Referring Unavailable HOY, JOHN M Primary Care Unavailable IIRS GABRIEL Attending Unavailable HOY, JOHN M Referring Unavailable HOY, JOHN M Primary Care Unavailable IRIS GABRIEL Attending Unavailable HOY, JOHN M Referring Unavailable HOY, JOHN M Primary Care Unavailable IRIS GABRIEL Attending Unavailable HOY, JOHN M Referring Unavailable HOY, JOHN M Primary Care Unavailable IRSI GABRIEL Attending Unavailable HOY, JOHN M Referring [...] source) Azithromycin Drug Allergy 12-21-19 22 [facility] Repository (4 sources) Imipramine; Translations: [IMIPRAMINE] Drug Allergy 10-06-19 13 hallucinations [facility] Repository (2 sources) Sulfonamides (Antibiotic) Drug allergy (disorder) 10-06-19 13 [facility] Repository (2 sources) E.E.S. Drug allergy (disorder) 10-06-19 13 [facility] Repository (18 sources) Erythromycin; Translations: [erythromycin] Drug Allergy 02-25-20 16 Unknown (qualifier value), Other [facility] (17 sources) Imipramine; Translations: [imipramine] Drug Allergy 02-25-20 16 Unknown (qualifier value), Other [facility] (2 sources) Sulfonamides (Antibiotic); Translations: [sulfa drugs] Drug allergy Unknown (qualifier value) [facility] (4 sources) Sulfonamides (Antibiotic); Translations: [Sulfa (Sulfonamide Antibiotics)] Allergy to substance 09-12-19 [facility] (16 sources) erythromycin base; Translations: [erythromycin base] Allergy to substance 12-02-19 21 [facility] (1 source) Imipramine Drug Allergy 12-02-19 21 [facility] Repository (14 sources) Sulfonamides (Antibiotic) Drug Intolerance 02-25-20 16 [facility] (3 sources) Ciprofloxacin Drug Allergy 01-20-20 [facility] Healthcare Medications Current Medications Medication Drug [...] 01-03-2024 Episodic Other aftercare (4 sources) Other custodial (current) drug therapy; Translations: [OTH PROPERTY DAMAGE CLAIMS ADJUSTOR CURRENT DRUG THERAPY] Onset: 12-23-2021 Episodic Other [...] Facility MM TOMOSYNTHESIS SCREENING B Ion 05-30-2024 [place] [address] Mammography Report Signed Patient: YULIA DORSEY MR#: [id number] : 1965 Acct:[id number] Age/Sex: 58 / F ADM Date: 05/30/24 Loc: MAMMO Attending Dr: Katie Rust D.O. Ordering Physician: Katie Rust D.O. Results: Date of Service: 05/30/24 Follow Up: Procedure(s): MM tomosynthesis screening BI Accession Number(s): [id number] cc: Katie Rust D.O.; John Porter M.D. Patient Name: YULIA DORSEY MR#: [id number] : 1965 Exam Date: 05/30/2024 Ordering Doctor: [...] breast cancer at age 40. LOCATION: [facility] BREAST COMPOSITION: The breasts are [...] Signed By: 05/30/24 1635 DD/ 1634 TD/TT: Head Grower: [facility] Radiology, Radiologist, MD - 05/30/2024 [place] [address] Mammography Report Signed Patient: YULIA DORSEY MR#: [id number] : 1965 Acct:[id number] Age/Sex: 58 / F ADM Date: 05/30/24 Loc: MAMMO Attending Dr: Katie Rust D.O. Ordering Physician: Katie Rust D.O. Results: Date of Service: 05/30/24 Follow Up: Procedure(s): MM tomosynthesis screening BI Accession Number(s): [id number] cc: Katie Rust D.O.; John Porter M.D. Patient Name: YULIA DORSEY MR#: [id number] : 1965 Exam Date: 05/30/2024 Ordering Doctor: [...] breast cancer at age 40. LOCATION: [facility] BREAST COMPOSITION: The breasts are [...] Signed By: 05/30/24 1635 DD/ 1634 TD/TT: Head Grower: [facility] Radiology Study observation (narrative) [facility] MM TOMOSYNTHESIS SCREENING B IOrdered By: Radiologist Radiology on 05-30-2024 [facility] Work Phone: ALL CBC WITH AUTO DIFFon BASOPHILS ABSOLUTE AUTO 0.0 [facility] Basophils/100 WBC (Bld) 0.8 % 0.2 - 2.0 % [facility] Eosinophils/100 WBC (Bld) 1.9 % 0.9 - 7.0 % [facility] Erythrocyte distribution width (RBC) [Ratio] 13.4 % 11.0 - 15.0 % [facility] Hematocrit (Bld) [Volume fraction] 43.1 % 36.0 - 48.0 % [facility] Hemoglobin (Bld) [Mass/Vol] 13.9 g/dL 12.0 - 16.0 g/dL [facility] IMMATURE GRANULOCYTES ABS AUTO 0.01 [facility] Immature granulocytes/100 WBC (Bld) 0.2 % 0.0 - 0.5 % [facility] LYMPHOCYTES ABSOLUTE AUTO 1.7 [facility] Lymphocytes/100 WBC (Bld) 32.9 % 20.5 - 60.0 % [facility] MCH (RBC) [Entitic mass] 28.8 pg 26.7 - 34.0 pg [facility] MCHC (RBC) [Mass/Vol] 32.3 g/dL 29.9 - 35.2 g/dL [facility] MCV (RBC) [Entitic vol] 89.2 fL 81.0 - 99.0 fL [facility] MONOCYTES ABSOLUTE AUTO 0.5 [facility] Monocytes/100 WBC (Bld) 9.6 % 1.7 - 12.0 % [facility] NEUTROPHILS ABSOLUTE AUTO 2.8 [facility] Neutrophils/100 WBC (Bld) 54.6 % 43.0 - 75.0 % [facility] Platelet mean volume (Bld) [Entitic vol] 9.7 fL 9.5 - 13.5 fL [facility] TBH EO # 0.1 [facility] TB PLT 291 [facility] RBC 4.83 [facility] WBC 5.1 [facility] [place] 01-07-2024 L Specimen: [id number] Received: 01/07/24 Status: LAWSON Guzman Num: [id number] Spec Type: Surgical Subm Dr: Katie Rust Tissues: A Endometrial Polyp (ENOMETRIAL POLYP AND CURETTI) Procedures: HE/2, Gross/Micro L4 Age/ Patient Sex Location Account Attending Physician Yulia Dorsey 58/F LABELL [id number] Katie Rust SPEC NUM: [id number] RECD: 01/07/24 STATUS: [facility] NUM: [id number] TIMOTHY: 01/07/[address]: Katie Rust ENTERED: 01/07/[address] [facility] [address]: Cristhian,Lab SPEC TYPE: Surgical DEPT: BIANCA VANN ENTERED BY: [id number] RECV BY: [id number] ORDERED: HE/2, Gross/Micro L4 ORDERED: HE/2, Gross/Micro [...] is entirely submitted cassette A1. CPT Codes 27723 -------- -------- Specimen: [id number] Received: 01/07/24 Status: LAWSON Guzman Num: [id number] Spec Type: Surgical Subm Dr: Katie Rust Tissues: A Endometrial Polyp (ENOMETRIAL POLYP AND CURETTI) Procedures: AMANDA/Charline Oakley/Sybil L4 -------- Patient: Yulia Dorsey [id number] (Continued) -------- Signed (signature on file) Tammie Mcclellan MD 01/13/24 1606 Normal [facility] Patient Letter FTon 2023 Patient Letter [facility] [place] [facility] Patient Letter [facility] [facility] January 07, 2024 [place] [address] : 1965 Dear uYlia Dorsey, We have been trying to reach you with no success. It is important that you return our call upon receiving this letter. Also, at the time of your call, please provide us with your current information. Thank you for your prompt attention to this matter. Sincerely, [facility] [address] [place] [address] [facility] Ambulatory Visit Summaryon 0 12-30-2023 Ambulatory [...] you for choosing us for your care. Normal [facility] Provider Letteron 12-30-2023 Provider Letter Provider Letter December 30, 2023 YULIA Melendez [place] [address] : 1965 To Whom It May Concern, Please excuse above patient from work. 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 Kidney stones (N20.0: Calculus of kidney) [...] now. -K (more content not included)... Normal [facility] Comment on above: Result Comment: Elec tronically Signed By: Farideh BARRERA, Bessie Modi\.br\Date and Time Signed: 12/30/23 15:22 EDT URETHRITIS/DISCHARGE PLUS VA GINITIS (HTRX)on 12-22-2023 ATOPOBIUM VAGINAE 0.000 [facility] ATOPOBIUM VAGINAE Not detected [facility] BVAB 2,3 (BACTERIAL VAGINOSIS ASSOCIATED BACTERIA 2, 3); MOBILUNCUS SPP 0.000 [facility] BVAB 2,3 (BACTERIAL VAGINOSIS ASSOCIATED BACTERIA 2, 3); MOBILUNCUS SPP Not detected [facility] ANAT ALBICANS, PARAPSILOSIS, TROPICALIS 0.000 [facility] ANAT ALBICANS, PARAPSILOSIS, TROPICALIS Not detected [facility] ANAT GLABRATA 0.000 [facility] ANAT GLABRATA Not detected [facility] ANAT KRUSEI 0.000 [facility] ANAT KRUSEI Not detected [facility] CHLAMYDIA TRACHOMATIS 0.000 [facility] CHLAMYDIA TRACHOMATIS Not detected [facility] GARDNERELLA VAGINALIS 0.000 [facility] GARDNERELLA VAGINALIS Not detected [facility] [...] : DR KATIE RUST . Admission #: [id number] Family : Order #: [id number] CLICK HERE TO VIEW EXAM RADIOLOGY REPORT [...] breast cancer at age 40. LOCATION: [facility] BREAST COMPOSITION: Almost entirely fatty. [...] MD on 09/22/2022 at 15:03 Normal [facility] US BREAST RIGHT LIMITEDon US BREAST RIGHT LIMITED Patient: YULIA DORSEY Exam Date: 09/22/2022 : 1965 Gender:F Ordering : DR KATIE RUST . Admission #: [id number] Family : Order #: [id number] CLICK HERE TO VIEW EXAM RADIOLOGY REPORT [...] breast cancer at age 40. LOCATION: [facility] BREAST COMPOSITION: Almost entirely fatty. [...] MD on 09/22/2022 at 15:03 Normal [facility] US ST HEAD_NECKon 08-31-2022 US [...] GABO STRONG Date: 2022-07-29 06:32 Normal [facility] INSULINon 07-04-2022 Insulin 6.2 uIU/mL Normal 2.6-24.9 [facility] Comment on above: Performed By: #### H TERAPN, [facility] #### [facility] [address] [place] [address] Dr. Judd Andrade CBC AUTO DIFFon 07-03-2022 BASO # 0.0 103/ul Normal 0.0-0.1 [facility] Comment on above: Performed By: #### C BC #### [facility] [address] [place] [address] Dr. Judd Andrade Basophils/100 WBC (Bld) 1.1 % Normal 0.2-2.0 [facility] Comment on above: Performed By: #### C BC #### [facility] [address] [place] [address] Dr. Judd Andrade EO # 0.1 103/ul Normal 0.0-0.7 [facility] Comment on above: Performed By: #### C BC #### [facility] [address] [place] [address] Dr. Judd Andrade Eosinophils/100 WBC (Bld) 3.6 % Normal 0.9-7.0 [facility] Comment on above: Performed By: #### C BC #### [facility] [address] [place] [address] Dr. Judd Andarde Erythrocyte distribution width (RBC) [Ratio] 13.6 % Normal 11.0-15.0 [facility] Comment on above: Performed By: #### C BC #### [facility] [address] [place] [address] Dr. Judd Andrade Hematocrit (Bld) [Volume fraction] 41.8 % Normal 36.0-48.0 [facility] Comment on above: Performed By: #### C BC #### [facility] [address] [place] [address] Dr. Judd Andrade Hemoglobin (Bld) [Mass/Vol] 13.5 g/dL Normal 12.0-16.0 [facility] Comment on above: Performed By: #### C BC #### [facility] [address] [place] [address] Dr. Judd Andrade IG # 0.01 10e3/ul Normal 0.00-0.03 [facility] Comment on above: Performed By: #### C BC #### [facility] [address] [place] [address] Dr. Judd Andrade IG % 0.3 % Normal 0.0-0.5 [facility] Comment on above: Performed By: #### C BC #### [facility] [address] [place] [address] Dr. Judd Andrade LYMPH # 1.4 103/ul Normal 1.2-3.8 [facility] Comment on above: Performed By: #### C BC #### [facility] [address] [place] [address] Dr. Judd Andrade Lymphocytes/100 WBC (Bld) 38.4 % Normal 20.5-60.0 [facility] Comment on above: Performed By: #### C BC #### [facility] [address] [place] [address] Dr. Judd Andrade MANUAL DIFF REQ NO Normal [facility] Comment on above: Performed By: #### C BC #### [facility] [address] [place] [address] Dr. Judd Andrade MCH (RBC) [Entitic mass] 28.2 pg Normal 26.7-34.0 [facility] Comment on above: Performed By: #### C BC #### [facility] [address] [place] [address] Dr. Judd Andrade MCHC (RBC) [Mass/Vol] 32.3 g/dL Normal 29.9-35.2 [facility] Comment on above: Performed By: #### C BC #### [facility] [address] [place] [address] Dr. Judd Andrade MCV (RBC) [Entitic vol] 87.4 fL Normal 81.0-99.0 [facility] Comment on above: Performed By: #### C BC #### [facility] [address] [place] [address] Dr. Judd Andrade MONO # 0.4 103/ul Normal 0.3-0.8 [facility] Comment on above: Performed By: #### C BC #### [facility] [address] [place] [address] Dr. Judd Andrade Monocytes/100 WBC (Bld) 10.4 % Normal 1.7-12.0 [facility] Comment on above: Performed By: #### C BC #### [facility] [address] [place] [address] Dr. Judd Andrade NEUT # 1.7 103/ul Normal 1.4-6.5 [facility] Comment on above: Performed By: #### C BC #### [facility] [address] [place] [address] Dr. Judd Andrade Neutrophils/100 WBC (Bld) 46.2 % Normal 43.0-75.0 [facility] Comment on above: Performed By: #### C BC #### [facility] [address] [place] [address] Dr. Judd Andrade Platelet mean volume (Bld) [Entitic vol] 9.6 fL Normal 9.5-13.5 [facility] Comment on above: Performed By: #### C BC #### [facility] [address] [place] [address] Dr. Judd Andrade PLT 246 103/ul Normal 150-450 [facility] Comment on above: Performed By: #### C BC #### [facility] [address] [address] [address] Judd Andrade RBC 4.78 106/ul Normal 4.20-5.40 [facility] Comment on above: Performed By: #### C BC #### [facility] [address] [address] [address] Judd Andrade WBC 3.7 103/ul Critically low 4.0-11.0 [facility] Comment on above: Performed By: #### C BC #### [facility] [address] [place] [address] Dr. Judd Andrade FREE THYROXINE INDEX T7on FTI 3.20 Normal 1.30-4.50 [facility] Comment on above: Performed By: #### T 7, LIPID, TSH, CMP #### [facility] [address] [place] [address] Dr. Judd Andrade T3U 36.0 % Normal 30.0-39.0 [facility] Comment on above: Performed By: #### T 7, LIPID, TSH, CMP #### [facility] [address] [place] [address] Dr. Judd Andrade T4 [Mass/Vol] 8.90 ug/dL Normal 4.80-13.90 [facility] Comment on above: Performed By: #### T 7, LIPID, TSH, CMP #### [facility] [address] [place] [address] Dr. Judd Andrade GLYCOHEMOGLOBIN A1Con 2022 ADA RECOMMENDATION SEE BELOW Normal [facility] Comment on above: Result Comment: ADA RECOMMENDED LIMIT 4.0 - 6.0 ADA THERAPEUTIC TARGET < 7.0 ACTION SUGGESTED > 7.0 Performed By: #### C BC #### [facility] [address] [address] [address] Judd Andrade Glucose [Mass/Vol] 120 mg/dL Normal [facility] Comment on above: Performed By: #### C BC #### [facility] [address] [place] [address] Dr. Judd Andrade HbA1c (Bld) [Mass fraction] 5.8 % Normal 4.5-6.2 [facility] Comment on above: Performed By: #### C BC #### [facility] [address] [address] [address] Judd Andrade IRONon 07-03-2022 Iron [Mass/Vol] 67.0 ug/dL Normal 50.0-170.0 [facility] Comment on above: Performed By: #### V ITAD, IRON #### [facility] [address] [place] [address] Dr. Judd Andrade LIPID PROFILEon 07-03-2022 CHOL-HDL RATIO NORM SEE BELOW Normal [facility] Comment on above: Result Comment: 3.3 - 4.4 LOW RISK 4.4 - 7.1 AVERAGE RISK 7.1 - 11.0 MODERATE RISK >11.0 HIGH RISK Performed By: #### T 7, LIPID, TSH, CMP #### [facility] [address] [place] [address] Dr. Judd Andrade Cholesterol [Mass/Vol] 216 mg/dL Critically high <=200 [facility] Comment on above: Performed By: #### T 7, LIPID, TSH, CMP #### [facility] [address] [place] [address] Dr. Judd Andrade Cholesterol in HDL [Mass/Vol] 87 mg/dL Critically high 40-60 [facility] Comment on above: Performed By: #### T 7, LIPID, TSH, CMP #### [facility] [address] [address] [address] Judd Andrade Cholesterol in LDL [Mass/Vol] 124.2 mg/dL Normal [facility] Comment on above: Performed By: #### T 7, LIPID, TSH, CMP #### [facility] [address] [address] [address] Judd Andrade Cholesterol.total/C holesterol in HDL [Mass ratio] 2.5 {ratio} Normal [facility] Comment on above: Performed By: #### T 7, LIPID, TSH, CMP #### [facility] [address] [place] [address] Dr. Judd Andrade HDL NORMAL > or = 60 mg/dl - LO W CARDIOVASCULAR RISK <40 mg/dl - HIGH CARDIOVASCULAR RISK Normal [facility] Comment on above: Performed By: #### T 7, LIPID, TSH, CMP #### [facility] [address] [address] [address] Judd Andrade LDL CALC NORMAL SEE BELOW Normal [facility] Comment on above: Result Comment: <100 mg/dl OPTIMAL 100 - 129 mg/dl NEAR OR ABOVE OPTIMAL 130 - 159 mg/dl BORDERLINE HIGH 160 - 189 mg/dl HIGH >190 mg/dl VERY HIGH Performed By: #### T 7, LIPID, TSH, CMP #### [facility] [address] [place] [address] Dr. Judd Andrade Triglyceride [Mass/Vol] 24 mg/dL Normal <=150 [facility] Comment on above: Performed By: #### T 7, LIPID, TSH, CMP #### [facility] [address] [place] [address] Dr. Judd Andrade VLDL CALC 4.8 mg/dL Normal [facility] Comment on above: Performed By: #### T 7, LIPID, TSH, CMP #### [facility] [address] [place] [address] Dr. Judd Andrade PROF 14(COMP METB)on 023 Albumin [Mass/Vol] 4.0 g/dL Normal 3.4-5.0 [facility] Comment on above: Performed By: #### T 7, LIPID, TSH, CMP #### [facility] [address] [place] [address] Dr. Judd Andrade Albumin/Globulin [Mass ratio] 1.1 {ratio} Normal [facility] Comment on above: Performed By: #### T 7, LIPID, TSH, CMP #### [facility] [address] [address] [address] Judd nAdrade ALP [Catalytic activity/Vol] 78 U/L Normal 46-116 [facility] Comment on above: Performed By: #### T 7, LIPID, TSH, CMP #### [facility] [address] [address] [address] Judd Andrade ALT [Catalytic activity/Vol] 29 U/L Normal 14-59 [facility] Comment on above: Performed By: #### T 7, LIPID, TSH, CMP #### [facility] [address] [address] [address] Judd Andrade Anion gap [Moles/Vol] 5.6 mmol/L Normal [facility] Comment on above: Performed By: #### T 7, LIPID, TSH, CMP #### [facility] [address] [place] [address] Dr. Judd Andrade AST [Catalytic activity/Vol] 23 U/L Normal 15-37 [facility] Comment on above: Performed By: #### T 7, LIPID, TSH, CMP #### [facility] [address] [address] [address] Judd Andrade Bilirubin [Mass/Vol] 0.5 mg/dL Normal 0.2-1.0 [facility] Comment on above: Performed By: #### T 7, LIPID, TSH, CMP #### [facility] [address] [place] [address] Dr. Judd Andrade Calcium [Mass/Vol] 8.9 mg/dL Normal 8.5-10.1 [facility] Comment on above: Performed By: #### T 7, LIPID, TSH, CMP #### [facility] [address] [address] [address] Judd Andrade Chloride [Moles/Vol] 105 mmol/L Normal 98-107 [facility] Comment on above: Performed By: #### T 7, LIPID, TSH, CMP #### [facility] [address] [place] [address] Dr. Jdud Andrade CO2 [Moles/Vol] 32.0 mmol/L Normal 21.0-32.0 [facility] Comment on above: Performed By: #### T 7, LIPID, TSH, CMP #### [facility] [address] [address] [address] Judd Andrade Creatinine [Mass/Vol] 0.52 mg/dL Critically low 0.55-1.02 [facility] Comment on above: Performed By: #### T 7, LIPID, TSH, CMP #### [facility] [address] [place] [address] Dr. Judd Andrade EGFR-AF HAITIAN >60 Normal >=60 [facility] Comment on above: Performed By: #### T 7, LIPID, TSH, CMP #### [facility] [address] [place] [address] Dr. Judd Andrade EGFR-NON AF HAITIAN >60 Normal >=60 [facility] Comment on above: Performed By: #### T 7, LIPID, TSH, CMP #### [facility] [address] [place] [address] Dr. Judd Andrade Globulin (S) [Mass/Vol] 3.6 g/dL Normal [facility] Comment on above: Performed By: #### T 7, LIPID, TSH, CMP #### [facility] [address] [place] [address] Dr. Judd Andrade Glucose [Mass/Vol] 89 mg/dL Normal 74-106 [facility] Comment on above: Performed By: #### T 7, LIPID, TSH, CMP #### [facility] [address] [place] [address] Dr. Judd Andrade Potassium [Moles/Vol] 4.2 mmol/L Normal 3.5-5.1 [facility] Comment on above: Performed By: #### T 7, LIPID, TSH, CMP #### [facility] [address] [place] [address] Dr. Judd Andrade Protein [Mass/Vol] 7.6 g/dL Normal 6.4-8.2 [facility] Comment on above: Performed By: #### T 7, LIPID, TSH, CMP #### [facility] [address] [place] [address] Dr. Judd Andrade Sodium [Moles/Vol] 139 mmol/L Normal 136-145 [facility] Comment on above: Performed By: #### T 7, LIPID, TSH, CMP #### [facility] [address] [place] [address] Dr. Judd Andrade Urea nitrogen [Mass/Vol] 11.0 mg/dL Normal 7.0-18.0 [facility] Comment on above: Performed By: #### T 7, LIPID, TSH, CMP #### [facility] [address] [place] [address] Dr. Judd Andrade Urea nitrogen/Creatinine [Mass ratio] 21.2 mg/mg Normal [facility] Comment on above: Performed By: #### T 7, LIPID, TSH, CMP #### [facility] [address] [place] [address] Dr. Judd Andrade TSHon 07-03-2022 TSH 1.037 uIU/mL Normal 0.358-3.740 [facility] Comment on above: Performed By: #### T 7, LIPID, TSH, CMP #### [facility] [address] [place] [address] Dr. Judd Andrade VITAMIN D 25 OHon 07-03-2022 VIT D 25-OH 32.8 ng/mL Normal [facility] Comment on above: Performed By: #### V ITAD, IRON #### [facility] [address] [place] [address] Dr. Judd Andrade VIT D RANGES SEE BELOW Normal [facility] Comment on above: Result Comment: <20 ng/mL Vit D deficient 20 - <30 ng/mL Vit D insufficient 30 - 100 ng/mL Vit D sufficient >100 ng/mL Potential Toxicity Performed By: #### V ITAD, IRON #### [facility] [address] [place] [address] Dr. Judd Andrade BORDETELLA PERTUSSIS AB IGGo n 06-30-2022 B pertussis IgG Ab 3.88 index Invalid Interpretation Code 0.00-0.94 [facility] Comment on above: Result Comment: Clie nt Requested Flag Negative <0.95 Equivocal 0.95 - 1.04 Positive >1.04 Performed By: #### C BC #### [facility] [address] [address] [address] Judd Andrade BORDETELLA PERTUSSIS AB IGMo n 06-30-2022 B pertussis IgM Ab <1.0 Normal 0.0-0.9 [facility] Comment on above: Result Comment: Nega tive <1.0 Borderline 1.0 - 1.1 Positive >1.1 Performed By: #### H DEB, CMP #### [facility] [address] [place] [address] Dr. Judd Andrade [id number] 2022 Tukci-2-Zjsifsyalzy , Serum 158 mg/dL Normal 101-187 [facility] Comment on above: Performed By: #### C BC #### [facility] [address] [place] [address] Dr. Judd Andrade CBC AUTO DIFFon 06-03-2022 BASO # 0.0 103/ul Normal 0.0-0.1 [facility] Comment on above: Performed By: #### H DEB, CMP #### [facility] [address] [address] [address] Judd Andrade Basophils/100 WBC (Bld) 0.6 % Normal 0.2-2.0 [facility] Comment on above: Performed By: #### H DEB, CMP #### [facility] [address] [address] [address] Judd Andrade EO # 0.0 103/ul Normal 0.0-0.7 [facility] Comment on above: Performed By: #### H TERAPN, CMP #### [facility] [address] [place] [address] Dr. Judd Andrade Eosinophils/100 WBC (Bld) 0.6 % Critically low 0.9-7.0 [facility] Comment on above: Performed By: #### H DEB, CMP #### [facility] [address] [place] [address] Dr. Judd Andrade Erythrocyte distribution width (RBC) [Ratio] 13.5 % Normal 11.0-15.0 [facility] Comment on above: Performed By: #### H STROPN, CMP #### [facility] [address] [place] [address] Dr. Judd Andrade Hematocrit (Bld) [Volume fraction] 42.4 % Normal 36.0-48.0 [facility] Comment on above: Performed By: #### H TERAPN, CMP #### [facility] [address] [place] [address] Dr. Judd Andrade Hemoglobin (Bld) [Mass/Vol] 13.4 g/dL Normal 12.0-16.0 [facility] Comment on above: Performed By: #### H TERAPN, CMP #### [facility] [address] [place] [address] Dr. Judd Andrade IG # 0.01 10e3/ul Normal 0.00-0.03 [facility] Comment on above: Performed By: #### H TERAPN, CMP #### [facility] [address] [place] [address] Dr. Judd Andrade IG % 0.2 % Normal 0.0-0.5 [facility] Comment on above: Performed By: #### H TERAPN, CMP #### [facility] [address] [place] [address] Dr. Judd Andrade LYMPH # 1.1 103/ul Critically low 1.2-3.8 [facility] Comment on above: Performed By: #### H TERAPN, CMP #### [facility] [address] [place] [address] Dr. Judd Andrade Lymphocytes/100 WBC (Bld) 23.5 % Normal 20.5-60.0 [facility] Comment on above: Performed By: #### H STROPN, CMP #### [facility] [address] [place] [address] Dr. Judd Andrade MANUAL DIFF REQ NO Normal [facility] Comment on above: Performed By: #### H TERAPN, CMP #### [facility] [address] [place] [address] Dr. Judd Andrade MCH (RBC) [Entitic mass] 28.9 pg Normal 26.7-34.0 [facility] Comment on above: Performed By: #### H DEB, CMP #### [facility] [address] [place] [address] Dr. Judd Andrade MCHC (RBC) [Mass/Vol] 31.6 g/dL Normal 29.9-35.2 [facility] Comment on above: Performed By: #### H STROPN, CMP #### [facility] [address] [place] [address] Dr. Judd Andrade MCV (RBC) [Entitic vol] 91.6 fL Normal 81.0-99.0 [facility] Comment on above: Performed By: #### H DEB, CMP #### [facility] [address] [place] [address] Dr. Judd Andrade MONO # 0.8 103/ul Normal 0.3-0.8 [facility] Comment on above: Performed By: #### H DEB, CMP #### [facility] [address] [place] [address] Dr. Judd Andrade Monocytes/100 WBC (Bld) 16.5 % Critically high 1.7-12.0 [facility] Comment on above: Performed By: #### H DEB, CMP #### [facility] [address] [place] [address] Dr. Judd Andrade NEUT # 2.7 103/ul Normal 1.4-6.5 [facility] Comment on above: Performed By: #### H TERAPN, CMP #### [facility] [address] [place] [address] Dr. Judd Andrade Neutrophils/100 WBC (Bld) 58.6 % Normal 43.0-75.0 [facility] Comment on above: Performed By: #### H TERAPN, CMP #### [facility] [address] [place] [address] Dr. Judd Andrade Platelet mean volume (Bld) [Entitic vol] 9.8 fL Normal 9.5-13.5 [facility] Comment on above: Performed By: #### H TERAPN, CMP #### [facility] [address] [address] [address] Judd Andrade PLT 252 103/ul Normal 150-450 [facility] Comment on above: Performed By: #### H STROPN, CMP #### [facility] [address] [address] [address] Judd Andrade RBC 4.63 106/ul Normal 4.20-5.40 [facility] Comment on above: Performed By: #### H STROPN, CMP #### [facility] [address] [address] [address] Judd Andrade WBC 4.7 103/ul Normal 4.0-11.0 [facility] Comment on above: Performed By: #### H STROPN, CMP #### [facility] [address] [place] [address] Dr. Judd Andrade PROF 14(COMP METB)on 023 Albumin [Mass/Vol] 4.0 g/dL Normal 3.4-5.0 [facility] Comment on above: Performed By: #### H STROPN, CMP #### [facility] [address] [place] [address] Dr. Judd Andrade Albumin/Globulin [Mass ratio] 1.0 {ratio} [facility] Comment on above: Performed By: #### H STROPN, CMP #### [facility] [address] [place] [address] Dr. Judd Andrade ALP [Catalytic activity/Vol] 77 U/L Normal 46-116 [facility] Comment on above: Performed By: #### H STROPN, CMP #### [facility] [address] [place] [address] Dr. Judd Andrade ALT [Catalytic activity/Vol] 33 U/L Normal 14-59 [facility] Comment on above: Performed By: #### H STROPN, CMP #### [facility] [address] [place] [address] Dr. Judd Andrade Anion gap [Moles/Vol] 8.0 mmol/L Normal [facility] Comment on above: Performed By: #### H STROPN, CMP #### [facility] [address] [address] [address] Judd Andrade AST [Catalytic activity/Vol] 28 U/L Normal 15-37 [facility] Comment on above: Performed By: #### H STROPN, CMP #### [facility] [address] [address] [address] Judd Andrade Bilirubin [Mass/Vol] 0.6 mg/dL Normal 0.2-1.0 [facility] Comment on above: Performed By: #### H STROPN, CMP #### [facility] [address] [address] [address] Judd Andrade Calcium [Mass/Vol] 9.3 mg/dL Normal 8.5-10.1 [facility] Comment on above: Performed By: #### H STROPN, CMP #### [facility] [address] [address] [address] Judd Andrade Chloride [Moles/Vol] 103 mmol/L Normal 98-107 [facility] Comment on above: Performed By: #### H STROPN, CMP #### [facility] [address] [address] [address] Judd Andrade CO2 [Moles/Vol] 33.6 mmol/L Critically high 21.0-32.0 [facility] Comment on above: Performed By: #### H STROPN, CMP #### [facility] [address] [address] [address] Judd Andrade Creatinine [Mass/Vol] 0.59 mg/dL Normal 0.55-1.02 [facility] Comment on above: Performed By: #### H STROPN, CMP #### [facility] [address] [address] [address] Judd Andrade EGFR-AF HAITIAN >60 Normal >=60 [facility] Comment on above: Performed By: #### H STROPN, CMP #### [facility] [address] [address] [address] Judd Andrade EGFR-NON AF HAITIAN >60 Normal >=60 [facility] Comment on above: Performed By: #### H STROPN, CMP #### [facility] [address] [address] [address] Judd Andrade Globulin (S) [Mass/Vol] 4.0 g/dL Normal [facility] Comment on above: Performed By: #### H STROPN, CMP #### [facility] [address] [address] [address] Judd Andrade Glucose [Mass/Vol] 130 mg/dL Critically high 74-106 [facility] Comment on above: Performed By: #### H STROPN, CMP #### [facility] [address] [address] [address] Judd Andrade Potassium [Moles/Vol] 3.6 mmol/L Normal 3.5-5.1 [facility] Comment on above: Performed By: #### H STROPN, CMP #### [facility] [address] [place] [address] Dr. Judd Andrade Protein [Mass/Vol] 8.0 g/dL Normal 6.4-8.2 [facility] Comment on above: Performed By: #### H STROPN, CMP #### [facility] [address] [place] [address] Dr. Judd Andrade Sodium [Moles/Vol] 141 mmol/L Normal 136-145 [facility] Comment on above: Performed By: #### H STROPN, CMP #### [facility] [address] [place] [address] Dr. Judd Andrade Urea nitrogen [Mass/Vol] 8.0 mg/dL Normal 7.0-18.0 [facility] Comment on above: Performed By: #### H STROPN, CMP #### [facility] [address] [address] [address] Judd Andrade Urea nitrogen/Creatinine [Mass ratio] 13.6 mg/mg Normal [facility] Comment on above: Performed By: #### H STROPN, CMP #### [facility] [address] [place] [address] Dr. Judd Andrade TROPONIN, HIGH SENSITIVITYon 06-03-2022 HSTROP <4.0 Normal 4.0-51.3 [facility] Comment on above: Result Comment: CUT- OFF POINTS HAVE BEEN ESTABLISHED BASED ON THE FOURTH UNIVERSAL DEFINITIONS OF MYOCARDIAL INFARCTION. THE UPPER REFERENCE LIMIT (URL) OF TROPONIN, DEFINED THE 99TH PERCENTILE OF cTnI DISTRIBUTION IN A REFERENCE POPULATION, HAS BEEN CONFIRMED THE DECISION THRESHOLD FOR GA DIAGNOSIS. Performed By: #### H DEB, CMP #### [facility] [address] [address] [address] Judd Andrade XR CHEST 2 Von [...] LINDA RHODES Date: 2022-06-03 12:15 Normal [facility] Covid-19 PCR (CVDTB)on SARS-CoV-2 (COVID-19) RNA JOLLY+probe Ql (Unsp spec) Not detected Normal NOT DETECTED [facility] Comment on above: Result Comment: This test is not yet approved or cleared by the [place] FDA. When there are no FDA-approved or cleared tests available, and other criteria are met, FDA can make tests available under an emergency access mechanism called an Emergency Use Authorization (EUA). The EUA for this test is supported by the Dispatch Machine [employer]ner of Health and Human Service's (HHS's) declaration [...] consistent with SARS-CoV-2. Performed By: #### H TERAPN, CMP #### [facility] [address] [address] [address] Judd Andrade INFLUENZA A AND B AGon 06-02 [facility] SEE BELOW Normal [facility] Comment on above: Result Comment: Nega tive for Flu A protein angiten. Infection due to Flu A cannot be ruled out. Flu A angiten in the sample may be below the detection limit of the test. Performed By: #### H STROPN, CMP #### [facility] [address] [address] [address] Judd [facility] Normal [facility] Comment on above: Result Comment: Nega tive for Flu B protein antigen. Infection due to Flu B cannot be ruled out. Flu B antigen in the sample may be below the detection limit of the test. Performed By: #### H STROPN, CMP #### [facility] [address] [address] [address] Judd Andrade INFLUENZA A AG Negative Normal NEGATIVE SEE COMMENT [facility] Comment on above: Performed By: #### H STROPN, CMP #### [facility] [address] [address] [address] Judd Andrade INFLUENZA B AG Negative Normal NEGATIVE SEE COMMENT [facility] Comment on above: Performed By: #### H STROPN, CMP #### [facility] [address] [address] [address] Judd [address] US ST HEAD_NECKon 02-11-2022 [...] GABO STRONG Date: 2022-02-11 16:24 Normal [facility] MG MAMM SCREEN 3D SUSANA CADon 02-10-2022 MG MAMM SCREEN 3D SUSANA CAD Patient: YULIA DORSEY Exam Date: 02/10/2022 : 1965 Gender:F Ordering : DR JOHN PORTER . Admission #: [id number] Family : Order #: [id number] CLICK HERE TO VIEW EXAM RADIOLOGY REPORT [...] breast cancer at age 40. LOCATION: [facility] BREAST COMPOSITION: Almost entirely fatty. [...] M.D. on 02/11/2022 at 14:20 Normal [facility] XR CHEST 1 Von 01-15-2022 [...] by: KAREN VALDEZ Date: 2022-01-15 18:39 Normal [facility] CBC AUTO DIFFon 12-30-2021 BASO # 0.0 103/ul Normal 0.0-0.1 [facility] Comment on above: Performed By: #### C BC #### [facility] [address] [place] [address] Dr. Judd Andrade Basophils/100 WBC (Bld) 0.6 % Normal 0.2-2.0 [facility] Comment on above: Performed By: #### C BC #### [facility] [address] [place] [address] Dr. Judd Andrade EO # 0.1 103/ul Normal 0.0-0.7 [facility] Comment on above: Performed By: #### C BC #### [facility] [address] [place] [address] Dr. Judd Andrade Eosinophils/100 WBC (Bld) 2.1 % Normal 0.9-7.0 [facility] Comment on above: Performed By: #### C BC #### [facility] [address] [place] [address] Dr. Judd Andrade Erythrocyte distribution width (RBC) [Ratio] 13.0 % Normal 11.0-15.0 [facility] Comment on above: Performed By: #### C BC #### [facility] [address] [place] [address] Dr. Judd Andrade Hematocrit (Bld) [Volume fraction] 41.9 % Normal 36.0-48.0 [facility] Comment on above: Performed By: #### C BC #### [facility] [address] [place] [address] Dr. Judd Andrade Hemoglobin (Bld) [Mass/Vol] 13.7 g/dL Normal 12.0-16.0 [facility] Comment on above: Performed By: #### C BC #### [facility] [address] [place] [address] Dr. Judd nAdrade IG # 0.03 10e3/ul Normal 0.00-0.03 [facility] Comment on above: Performed By: #### C BC #### [facility] [address] [place] [address] Dr. Judd Andrade IG % 0.6 % Critically high 0.0-0.5 [facility] Comment on above: Performed By: #### C BC #### [facility] [address] [place] [address] Dr. Judd Andrade LYMPH # 1.9 103/ul Normal 1.2-3.8 [facility] Comment on above: Performed By: #### C BC #### [facility] [address] [place] [address] Dr. Judd Andrade Lymphocytes/100 WBC (Bld) 34.5 % Normal 20.5-60.0 [facility] Comment on above: Performed By: #### C BC #### [facility] [address] [place] [address] Dr. Judd Andrade MANUAL DIFF REQ NO Normal [facility] Comment on above: Performed By: #### C BC #### [facility] [address] [place] [address] Dr. Judd Andrade MCH (RBC) [Entitic mass] 28.5 pg Normal 26.7-34.0 [facility] Comment on above: Performed By: #### C BC #### [facility] [address] [place] [address] Dr. Judd Andrade MCHC (RBC) [Mass/Vol] 32.7 g/dL Normal 29.9-35.2 [facility] Comment on above: Performed By: #### C BC #### [facility] [address] [place] [address] Dr. Judd Andrade MCV (RBC) [Entitic vol] 87.1 fL Normal 81.0-99.0 [facility] Comment on above: Performed By: #### C BC #### [facility] [address] [place] [address] Dr. Judd Andrade MONO # 0.6 103/ul Normal 0.3-0.8 [facility] Comment on above: Performed By: #### C BC #### [facility] [address] [place] [address] Dr. Judd Andrade Monocytes/100 WBC (Bld) 10.4 % Normal 1.7-12.0 [facility] Comment on above: Performed By: #### C BC #### [facility] [address] [place] [address] Dr. Judd Andrade NEUT # 2.8 103/ul Normal 1.4-6.5 [facility] Comment on above: Performed By: #### C BC #### [facility] [address] [place] [address] Dr. Judd Andrade Neutrophils/100 WBC (Bld) 51.8 % Normal 43.0-75.0 [facility] Comment on above: Performed By: #### C BC #### [facility] [address] [place] [address] Dr. Judd Andrade Platelet mean volume (Bld) [Entitic vol] 10.5 fL Normal 9.5-13.5 [facility] Comment on above: Performed By: #### C BC #### [facility] [address] [place] [address] Dr. Judd Andrade PLT 270 103/ul Normal 150-450 [facility] Comment on above: Performed By: #### C BC #### [facility] [address] [place] [address] Dr. Judd Andrade RBC 4.81 106/ul Normal 4.20-5.40 [facility] Comment on above: Performed By: #### C BC #### [facility] [address] [place] [address] Dr. Judd Andrade WBC 5.4 103/ul Normal 4.0-11.0 [facility] Comment on above: Performed By: #### C BC #### [facility] [address] [place] [address] Dr. Judd Andrade CRPon 12-30-2021 CRP [Mass/Vol] mg/L Normal <=1.0 [facility] Comment on above: Performed By: #### C BC #### [facility] [address] [place] [address] Dr. Judd Andrade PROF 14(COMP METB)on 022 Albumin [Mass/Vol] 3.9 g/dL Normal 3.4-5.0 [facility] Comment on above: Performed By: #### C BC #### [facility] [address] [place] [address] Dr. Judd Andrade Albumin/Globulin [Mass ratio] 1.0 {ratio} Normal [facility] Comment on above: Performed By: #### C BC #### [facility] [address] [place] [address] Dr. Judd Andrade ALP [Catalytic activity/Vol] 64 U/L Normal 46-116 [facility] Comment on above: Performed By: #### C BC #### [facility] [address] [address] [address] Judd Andrade ALT [Catalytic activity/Vol] 50 U/L Normal 14-59 [facility] Comment on above: Performed By: #### C BC #### [facility] [address] [place] [address] Dr. Judd Andrade Anion gap [Moles/Vol] 11.1 mmol/L Normal [facility] Comment on above: Performed By: #### C BC #### [facility] [address] [place] [address] Dr. Judd Andrade AST [Catalytic activity/Vol] 28 U/L Normal 15-37 [facility] Comment on above: Performed By: #### C BC #### [facility] [address] [place] [address] Dr. Judd Andrade Bilirubin [Mass/Vol] 0.5 mg/dL Normal 0.2-1.0 [facility] Comment on above: Performed By: #### C BC #### [facility] [address] [place] [address] Dr. Judd Andrade Calcium [Mass/Vol] 8.9 mg/dL Normal 8.5-10.1 [facility] Comment on above: Performed By: #### C BC #### [facility] [address] [place] [address] Dr. Judd Andrade Chloride [Moles/Vol] 101 mmol/L Normal 98-107 [facility] Comment on above: Performed By: #### C BC #### [facility] [address] [place] [address] Dr. Judd Andrade CO2 [Moles/Vol] 29.4 mmol/L Normal 21.0-32.0 [facility] Comment on above: Performed By: #### C BC #### [facility] [address] [address] [address] Judd Andrade Creatinine [Mass/Vol] 0.73 mg/dL Normal 0.55-1.02 [facility] Comment on above: Performed By: #### C BC #### [facility] [address] [address] [address] Judd Andrade EGFR-AF HAITIAN >60 Normal >=60 [facility] Comment on above: Performed By: #### C BC #### [facility] [address] [address] [address] Judd Andrade EGFR-NON AF HAITIAN >60 Normal >=60 [facility] Comment on above: Performed By: #### C BC #### [facility] [address] [address] [address] Judd Andrade Globulin (S) [Mass/Vol] 3.8 g/dL Normal [facility] Comment on above: Performed By: #### C BC #### [facility] [address] [address] [address] Judd Andrade Glucose [Mass/Vol] 139 mg/dL Critically high 74-106 [facility] Comment on above: Performed By: #### C BC #### [facility] [address] [address] [address] Judd Andrade Potassium [Moles/Vol] 3.5 mmol/L Normal 3.5-5.1 [facility] Comment on above: Performed By: #### C BC #### [facility] [address] [address] [address] Judd Andrade Protein [Mass/Vol] 7.7 g/dL Normal 6.4-8.2 [facility] Comment on above: Performed By: #### C BC #### [facility] [address] [address] [address] Judd Andrade Sodium [Moles/Vol] 138 mmol/L Normal 136-145 [facility] Comment on above: Performed By: #### C BC #### [facility] [address] [address] [address] Judd Andrade Urea nitrogen [Mass/Vol] 12.0 mg/dL Normal 7.0-18.0 [facility] Comment on above: Performed By: #### C BC #### [facility] [address] [address] [address] Judd Andrade Urea nitrogen/Creatinine [Mass ratio] 16.4 mg/mg Normal [facility] Comment on above: Performed By: #### C BC #### [facility] [address] [address] [address] Judd Andrade XR CHEST 2 Von [...] ARTEMIO DIXON Date: 2021-12-29 20:49 Normal [facility] TRYPTASEon 12-27-2021 Tryptase 4.5 ug/L Normal 2.2-13.2 [facility] Comment on above: Performed By: #### C BC #### [facility] [address] [place] [address] Dr. Judd Andrade CBC AUTO DIFFon 12-23-2021 BASO # 0.0 103/ul Normal 0.0-0.1 [facility] Comment on above: Performed By: #### H DEB, CMP #### [facility] [address] [place] [address] Dr. Judd Andrade Basophils/100 WBC (Bld) 0.7 % Normal 0.2-2.0 [facility] Comment on above: Performed By: #### H DEB, CMP #### [facility] [address] [place] [address] Dr. Judd Andrade EO # 0.0 103/ul Normal 0.0-0.7 [facility] Comment on above: Performed By: #### H DEB, CMP #### [facility] [address] [address] [address] Judd Andrade Eosinophils/100 WBC (Bld) 0.0 % Critically low 0.9-7.0 [facility] Comment on above: Performed By: #### H STROPN, CMP #### [facility] [address] [place] [address] Dr. Judd Andrade Erythrocyte distribution width (RBC) [Ratio] 13.2 % Normal 11.0-15.0 [facility] Comment on above: Performed By: #### H STROPN, CMP #### [facility] [address] [place] [address] Dr. Judd Andrade Hematocrit (Bld) [Volume fraction] 42.1 % Normal 36.0-48.0 [facility] Comment on above: Performed By: #### H STROPN, CMP #### [facility] [address] [place] [address] Dr. Judd Andrade Hemoglobin (Bld) [Mass/Vol] 13.7 g/dL Normal 12.0-16.0 [facility] Comment on above: Performed By: #### H STROPN, CMP #### [facility] [address] [place] [address] Dr. Judd Andrade IG # 0.01 10e3/ul Normal 0.00-0.03 [facility] Comment on above: Performed By: #### H STROPN, CMP #### [facility] [address] [place] [address] Dr. Judd Andrade IG % 0.3 % Normal 0.0-0.5 [facility] Comment on above: Performed By: #### H STROPN, CMP #### [facility] [address] [place] [address] Dr. Judd Andrade LYMPH # 0.7 103/ul Critically low 1.2-3.8 [facility] Comment on above: Performed By: #### H STROPN, CMP #### [facility] [address] [place] [address] Dr. Judd Andrade Lymphocytes/100 WBC (Bld) 24.1 % Normal 20.5-60.0 [facility] Comment on above: Performed By: #### H STROPN, CMP #### [facility] [address] [place] [address] Dr. Judd Andrade MANUAL DIFF REQ NO Normal [facility] Comment on above: Performed By: #### H STROPN, CMP #### [facility] [address] [place] [address] Dr. Judd Andrade MCH (RBC) [Entitic mass] 28.4 pg Normal 26.7-34.0 [facility] Comment on above: Performed By: #### H STROPN, CMP #### [facility] [address] [place] [address] Dr. Judd Andrade MCHC (RBC) [Mass/Vol] 32.5 g/dL Normal 29.9-35.2 [facility] Comment on above: Performed By: #### H STROPN, CMP #### [facility] [address] [place] [address] Dr. Judd Andrade MCV (RBC) [Entitic vol] 87.2 fL Normal 81.0-99.0 [facility] Comment on above: Performed By: #### H STROPN, CMP #### [facility] [address] [place] [address] Dr. Judd Andrade MONO # 0.5 103/ul Normal 0.3-0.8 [facility] Comment on above: Performed By: #### H STROPN, CMP #### [facility] [address] [place] [address] Dr. Judd Andrade Monocytes/100 WBC (Bld) 16.9 % Critically high 1.7-12.0 [facility] Comment on above: Performed By: #### H STROPN, CMP #### [facility] [address] [place] [address] Dr. Judd Andrade NEUT # 1.8 103/ul Normal 1.4-6.5 [facility] Comment on above: Performed By: #### H STROPN, CMP #### [facility] [address] [place] [address] Dr. Judd Andrade Neutrophils/100 WBC (Bld) 58.0 % Normal 43.0-75.0 [facility] Comment on above: Performed By: #### H DEB, CMP #### [facility] [address] [place] [address] Dr. Judd Andrade Platelet mean volume (Bld) [Entitic vol] 9.9 fL Normal 9.5-13.5 [facility] Comment on above: Performed By: #### H DEB, CMP #### [facility] [address] [place] [address] Dr. Judd Andrade PLT 210 103/ul Normal 150-450 [facility] Comment on above: Performed By: #### H DEB, CMP #### [facility] [address] [place] [address] Dr. Judd Andrade RBC 4.83 106/ul Normal 4.20-5.40 [facility] Comment on above: Performed By: #### H DEB, CMP #### [facility] [address] [place] [address] Dr. Judd Andrade WBC 3.1 103/ul Critically low 4.0-11.0 [facility] Comment on above: Performed By: #### H DEB, CMP #### [facility] [address] [place] [address] Dr. Judd Andrade IRONon 12-23-2021 Iron [Mass/Vol] 35.0 ug/dL Critically low 50.0-170.0 [facility] Comment on above: Performed By: #### C BC #### [facility] [address] [place] [address] Dr. Judd Andrade PROF 14(COMP METB)on 022 Albumin [Mass/Vol] 3.9 g/dL Normal 3.4-5.0 [facility] Comment on above: Performed By: #### C BC #### [facility] [address] [place] [address] Dr. Judd Andrade Albumin/Globulin [Mass ratio] 1.0 {ratio} Normal [facility] Comment on above: Performed By: #### C BC #### [facility] [address] [place] [address] Dr. Judd Andrade ALP [Catalytic activity/Vol] 70 U/L Normal 46-116 [facility] Comment on above: Performed By: #### C BC #### [facility] [address] [place] [address] Dr. Judd Andrade ALT [Catalytic activity/Vol] 43 U/L Normal 14-59 [facility] Comment on above: Performed By: #### C BC #### [facility] [address] [place] [address] Dr. Judd Andrade Anion gap [Moles/Vol] 11.5 mmol/L Normal [facility] Comment on above: Performed By: #### C BC #### [facility] [address] [place] [address] Dr. Judd Andrade AST [Catalytic activity/Vol] 33 U/L Normal 15-37 [facility] Comment on above: Performed By: #### C BC #### [facility] [address] [place] [address] Dr. Judd Andrade Bilirubin [Mass/Vol] 0.3 mg/dL Normal 0.2-1.0 [facility] Comment on above: Performed By: #### C BC #### [facility] [address] [place] [address] Dr. Judd Andrade Calcium [Mass/Vol] 8.9 mg/dL Normal 8.5-10.1 [facility] Comment on above: Performed By: #### C BC #### [facility] [address] [place] [address] Dr. Judd Andrade Chloride [Moles/Vol] 101 mmol/L Normal 98-107 [facility] Comment on above: Performed By: #### C BC #### [facility] [address] [place] [address] Dr. Judd Andrade CO2 [Moles/Vol] 31.1 mmol/L Normal 21.0-32.0 [facility] Comment on above: Performed By: #### C BC #### [facility] [address] [place] [address] Dr. Judd Andrade Creatinine [Mass/Vol] 0.69 mg/dL Normal 0.55-1.02 [facility] Comment on above: Performed By: #### C BC #### [facility] [address] [address] [address] Judd Andrade EGFR-AF HAITIAN >60 Normal >=60 [facility] Comment on above: Performed By: #### C BC #### [facility] [address] [address] [address] Judd Andrade EGFR-NON AF HAITIAN >60 Normal >=60 [facility] Comment on above: Performed By: #### C BC #### [facility] [address] [address] [address] Judd Andrade Globulin (S) [Mass/Vol] 3.8 g/dL Normal [facility] Comment on above: Performed By: #### C BC #### [facility] [address] [address] [address] Judd Andrade Glucose [Mass/Vol] 103 mg/dL Normal 74-106 [facility] Comment on above: Performed By: #### C BC #### [facility] [address] [address] [address] Judd Andrade Potassium [Moles/Vol] 3.6 mmol/L Normal 3.5-5.1 [facility] Comment on above: Performed By: #### C BC #### [facility] [address] [address] [address] Judd Andrade Protein [Mass/Vol] 7.7 g/dL Normal 6.4-8.2 [facility] Comment on above: Performed By: #### C BC #### [facility] [address] [address] [address] Judd Andrade Sodium [Moles/Vol] 140 mmol/L Normal 136-145 [facility] Comment on above: Performed By: #### C BC #### [facility] [address] [address] [address] Judd Andrade Urea nitrogen [Mass/Vol] 11.0 mg/dL Normal 7.0-18.0 [facility] Comment on above: Performed By: #### C BC #### [facility] [address] [place] [address] Dr. Judd Andrade Urea nitrogen/Creatinine [Mass ratio] 15.9 mg/mg Normal [facility] Comment on above: Performed By: #### C BC #### [facility] [address] [place] [address] Dr. Judd Andrade PROTIMEon 12-23-2021 INR Coag (PPP) [Relative time] 1.04 {INR} Normal [facility] Comment on above: Performed By: #### H DEB, CMP #### [facility] [address] [place] [address] Dr. Judd Andrade INR GUIDELINES SEE BELOW Normal [facility] Comment on above: Result Comment: PRIETO RED INR: 2.0 - 3.0 CONDITIONS NOT LISTED BELOW 2.5 - 3.5 FOR PROSTHETIC HEART VALVE REPLACEMENT 2.5 - 3.5 RECURRENT THROMBOSIS Performed By: #### H DEB, CMP #### [facility] [address] [place] [address] Dr. Judd Andrade PT Coag (PPP) [Time] 11.2 s Normal 9.0-11.6 [facility] Comment on above: Performed By: #### H DEB, CMP #### [facility] [address] [place] [address] Dr. Judd Andrade PTTon 12-23-2021 aPTT Coag (Bld) [Time] 31.5 s Normal 22.3-36.2 [facility] Comment on above: Performed By: #### H DEB, CMP #### [facility] [address] [place] [address] Dr. Judd Andrade ER URINE PROFILEon Bilirubin Ql (U) Negative Normal NEGATIVE [facility] Comment on above: Performed By: #### H DEB, CMP #### [facility] [address] [place] [address] Dr. Judd Andrade Clarity (U) CLEAR Normal CLEAR [facility] Comment on above: Performed By: #### H DEB, CMP #### [facility] [address] [address] [address] Judd Andrade Color (U) LT. YELLOW Normal YELLOW [facility] Comment on above: Performed By: #### H STROPN, CMP #### [facility] [address] [address] [address] Judd SMITH A micrscopic examination will be performed if indicated. Normal [facility] Comment on above: Performed By: #### H STROPN, CMP #### [facility] [address] [address] [address] Judd Andrade Glucose Ql (U) Negative Normal NEGATIVE [facility] Comment on above: Performed By: #### H STROPN, CMP #### [facility] [address] [address] [address] Judd Andrade Hemoglobin Ql (U) TRACE-INTACT Abnormal NEGATIVE [facility] Comment on above: Performed By: #### H STROPN, CMP #### [facility] [address] [address] [address] Judd Andrade Ketones Ql (U) Negative Normal NEGATIVE [facility] Comment on above: Performed By: #### H STROPN, CMP #### [facility] [address] [place] [address] Dr. Judd Andrade LEUKOCYTES Negative Normal NEGATIVE [facility] Comment on above: Performed By: #### H STROPN, CMP #### [facility] [address] [address] [address] Judd Andrade Nitrite Ql (U) Negative Normal NEGATIVE [facility] Comment on above: Performed By: #### H STROPN, CMP #### [facility] [address] [address] [address] Judd Andrade pH (U) 6.0 [pH] Normal 5-9 [facility] Comment on above: Performed By: #### H STROPN, CMP #### [facility] [address] [address] [address] Judd Andrade SPEC GRAVITY 1.005 Normal 1.005-<=1.025 [facility] Comment on above: Performed By: #### H STROPN, CMP #### [facility] [address] [place] [address] Dr. Judd Andrade UA PROTEIN Negative Normal NEGATIVE/ TRACE [facility] Comment on above: Performed By: #### H STROPN, CMP #### [facility] [address] [place] [address] Dr. Judd Andrade UR MICRO IND INDICATED Normal [facility] Comment on above: Performed By: #### H STROPN, CMP #### [facility] [address] [place] [address] Dr. Judd Andrade Urobilinogen Qn (U) 0.2 {Carol'U}/dL Normal 0.2 - 1. 0 [facility] Comment on above: Performed By: #### H STROPN, CMP #### [facility] [address] [place] [address] Dr. Judd Andrade URINE MICROSCOPIC ONLYon BACTERIA NONE SEEN Normal NONE SEEN [facility] Comment on above: Performed By: #### H STROPN, CMP #### [facility] [address] [place] [address] Dr. Judd Andrade Bacteria identified Cx Nom (U) NOT INDICATED Normal [facility] Comment on above: Performed By: #### H STROPN, CMP #### [facility] [address] [place] [address] Dr. Judd Andrade CAST NONE SEEN Normal NONE SEEN [facility] Comment on above: Performed By: #### H TERAPN, CMP #### [facility] [address] [place] [address] Dr. Judd Andrade Crystals LM Nom (Urine sed) NONE SEEN Normal NONE SEEN [facility] Comment on above: Performed By: #### H STROPN, CMP #### [facility] [address] [place] [address] Dr. Judd Andrade Epithelial cells LM Ql (Urine sed) FEW Abnormal NONE SEEN /RARE [facility] Comment on above: Performed By: #### H STROPN, CMP #### [facility] [address] [place] [address] Dr. Judd Andrade MUCOUS NONE SEEN Normal NONE SEEN [facility] Comment on above: Performed By: #### H STROPN, CMP #### [facility] [address] [address] [address] Judd Andrade RBC 0-2 Normal 0-2 [facility] Comment on above: Performed By: #### H STROPN, CMP #### [facility] [address] [place], [place] [address] Dr. Judd Andrade WBC NONE SEEN Normal NONE SEEN [facility] Comment on above: Performed By: #### H STROPN, CMP #### [facility] [address] [place], [place] [address] Dr. Judd Andrade Vital Signs Date Time Vital Sign Value Performing Clinician Facility 01-20-2024 12:02-0400 Body mass index (BMI) [Ratio] 28.34 kg/m2 Katie Yocasta DO Work Phone: [facility] 01-20-2024 12:02-0400 Body weight 72.58 kg Katie Yocasta DO Work Phone: [facility] 01-20-2024 12:02-0400 Diastolic blood pressure 80 mm[Hg] Katie Yocasta DO Work Phone: [facility] 01-20-2024 12:02-0400 Systolic blood pressure 160 mm[Hg] Katie Yocasta DO Work Phone: [facility] 01-03-2024 13:11-0400 Body mass index (BMI) [Ratio] 28.17 kg/m2 Katie Yocasta DO Work Phone: [facility] 01-03-2024 13:11-0400 Body weight 72.12 kg Katie Yocasta DO Work Phone: [facility] 01-03-2024 13:11-0400 Diastolic blood pressure 70 mm[Hg] Katie Yocasta DO Work Phone: [facility] 01-03-2024 13:11-0400 Systolic blood pressure 120 mm[Hg] Katie Yocasta DO Work Phone: [facility] 12-30-2023 13:48-0400 Blood Pressure Location Bessie Galea [facility] 12-30-2023 13:48-0400 Diastolic blood pressure 82 mm[Hg] Bessie Galea [facility] 12-30-2023 13:48-0400 Heart rate 80 /min Bessie Galea [facility] 12-30-2023 13:48-0400 Respiratory rate 16 /min Bessie Galea [facility] 12-30-2023 13:48-0400 Systolic blood pressure 117 mm[Hg] Bessie Galea [facility] 12-21-2023 11:47-0400 Body mass index (BMI) [Ratio] 27.99 kg/m2 Radha KAY Work Phone: [facility] 12-21-2023 11:47-0400 Body weight 71.67 kg Radha KAY Work Phone: [facility] 12-21-2023 11:47-0400 Diastolic blood pressure 78 mm[Hg] Radha KAY Work Phone: [facility] 12-21-2023 11:47-0400 Systolic blood pressure 118 mm[Hg] Radha KAY Work Phone: [facility] Healthcare Encounters Encounter Date Encounter Type Care Provider Facility Start: 09-26-2024 End: 09-26-2024 [facility] Start: 09-15-2024 End: 09-15-2024 [facility] Start: 09-05-2024 End: 09-05-2024 Chart abstracting Scanning Provider External [facility] Start: 08-29-2024 End: 08-29-2024 ambulatory [facility] Start: 08-17-2024 End: 08-17-2024 [facility] Start: 08-08-2024 End: 08-08-2024 [facility] Start: 07-03-2024 End: 07-03-2024 [facility] Start: 06-19-2024 End: 06-19-2024 [facility] Start: 06-06-2024 End: 06-06-2024 [facility] Start: 05-30-2024 End: 05-30-2024 [facility] Result Encounter Katie Yocasta DO Work Phone: [facility] External Department Unsolicited Start: 05-30-2024 End: 05-30-2024 [facility] Result Encounter Katie Yocasta DO Work Phone: [facility] Unsolicited Start: 05-29-2024 End: 05-29-2024 [facility] Start: 05-22-2024 End: 05-22-2024 [facility] Start: 05-08-2024 End: 05-08-2024 [facility] Start: 01-20-2024 End: 01-20-2024 Bamboo flowsheet [...] MD John Porter Work Phone: [facility] Work Phone: Start: 01-07-2024 End: 01-07-2024 Departed Referred MD John Porter Work Phone: [facility] Start: 01-03-2024 [...] examination done Katie Yocasta DO Work Phone: [facility] Start: 01-03-2024 End: 01-03-2024 ambulatory KATIE YOCASTA Not Available Start: 12-30-2023 End: 12-30-2023 ambulatory Bessie Gong Facility:[facility] Start: 12-30-2023 End: 12-30-2023 Patient encounter procedure Bessie Gong [facility] Start: 12-29-2023 End: 12-29-2023 Phys/qhp telephone [...] External Result Encounter Radha KAY Work Phone: [facility] External Department Unsolicited Start: 12-21-2023 End: [...] response examination DR JOHN PORTER . [facility] Start: 06-26-2022 End: [...] cholecystectomy A dina Gong Tonsillectomy Bessie Gong Plan of Treatment Date Care Activity Detail Author Start: 10-05-2032 DTaP,Tdap and Td Vac cines (2 - Td or Tdap) DTaP,Tdap and Td Vaccines (2 - Td or Tdap) [facility] Start: 12-25-2024 Influenza vaccination Influenza Vacc ine [facility] Start: 07-19-2024 End: 07-19-2024 Patient encounter procedure 07/19/2024 3:40 PM EDT Office Visit [facility] [address] [id number] Katie Rust, DO [address] [place] [address] [facility] Start: 01-07-2024 End: 01-07-2024 Patient encounter procedure 01/07/2024 9:00 AM EDT Procedure Visit [facility] Katie Rust, DO [address] [place] [address] [facility] Start: 01-03-2024 End: 01-03-2024 Patient encounter procedure [facility] Comment on above: Arrived Start: 12-29-2023 End: 12-29-2023 Patient encounter procedure [facility] Start: 08-19-2015 Administration of varicella zoster vaccine Zoster (Shingles) Vaccine (1 of 2) [facility] Start: 1986 Screening for malign ant neoplasm of cervix Pap Smear [facility] Start: 08-19-1983 Adult BMI Screening Adult BMI Screen ing [facility] Start: 1977 Depression Screening Depression Scre ening [facility] Start: 1977 Tobacco Screening Tobacco Screening [facility] CHLAMYDIA TRACHOMATI S (GENITO/STI) CHLAMYDIA TRACHOMATIS (GENITO/STI) Lab Routine Vaginal burning Vaginal itching Ordered: 12/21/2023 [facility] Comment on above: Ordered: 12/21/2023 Neisseria gonorrhoea e DNA [Presence] in Unspecified specimen by JOLLY with probe detection Neisseria gonorrhea DNA probe, direct Lab Routine Vaginal burning Vaginal itching Ordered: 12/21/2023 [facility] Comment on above: Ordered: 12/21/2023 SURESWAB(R) ADVANCED VAGINITIS PLUS, TMA SURESWAB(R) ADVANCED VAGINITIS PLUS, TMA Pathology and Cytology Routine Vaginal burning Vaginal itching Ordered: 12/21/2023 [facility] Work Phone: Comment on above: Ordered: 12/21/2023 Immunizations Immunization Date Immunization Notes Care Provider Mukesh merritt 10-05-2022 tetanus toxoid, redu heide diphtheria toxoid, and acellular pertussis vaccine, adsorbed Bessie Galea [facility] Payers Date Payer Category Payer Self-pay [id number] 2023 Unknown [id number] 2022 Managed Care Other (unspecified) FRON[facility]ATH [id number]. [id number] 2020 Private Health Insurance [facility] 1.2.840.025654.1.13.693. 2.7.9.700988.237444.315 2020 Unknown [facility] [id number] 2020-Present [phone] [address] 1.2.840.180871.1.13.693. 2.7.3.101242.315 1965 Unknown [id number] 2.16.840.1.342197.3.579. 2.593 1965 Unknown [id number] 2.16.840.1.809983.3.579. 2.593 1965 Unknown [id number] 2.16.840.1.303731.3.579. 2.593 1965 Unknown [id number] 2.16840.1.967756.3.579. 2.593 1965 Unknown [id number] 2.16.840.1.583805.3.579. 2.593 1965 Unknown [id number] 2.16.840.1.210372.3.579. 2.593 1965 Unknown [id number] 2.16.840.1.069000.3.579. 2.593 1965 Unknown [id number] 2.16.840.1.410481.3.579. 2.593 1965 Unknown [id number] 2.16.840.1.759943.3.579. 2.593 1965 Unknown [id number] 2.16.840.1.313074.3.579. 2.593 1965 Unknown [id number] 2.16.840.1.323036.3.579. 2.593 1965 Unknown [id number] 2.16.840.1.061121.3.579. 2.59 1965 Unknown [id number] 2.16.840.1.304219.3.579. 2.593 1965 Unknown [id number] 2.16840.1.284117.3.579. 2.59 1965 Unknown [id number] 2.840.1.238560.3.579. 2.593 1965 Unknown [id number] 2.16840.1.792315.3.579. 2.59 1965 Unknown [id number] 2.16840.1.390021.3.579. 2.593 1965 Unknown [id number] 2.16840.1.183497.3.579. 2.59 1965 Unknown [id number] 2.16840.1.201447.3.579. 2.593 1965 Unknown [id number] 2.16840.1.746639.3.579. 2.593 1965 Unknown [id number] 2.16.840.1.506131.3.579. 2.593 1965 Unknown [id number] 2.16.840.1.341558.3.579. 2.59 1965 Unknown [id number] 2.16.840.1.430847.3.579. 2.593 1965 Unknown [id number] 2.16.840.1.028559.3.579. 2.593 1965 Unknown [id number] 2.16.840.1.498403.3.579. 2.1258 1965 Unknown [id number] 2.16.840.1.445496.3.579. 2.1258 1965 Unknown [id number] 2.16.840.1.101814.3.579. 2.1258 1965 Unknown [id number] 2.16.840.1.781049.3.579. 2.1258 1965 Unknown [id number] 2.16.840.1.179629.3.579. 2.1258 1965 Unknown [id number] 2.16.840.1.585164.3.579. 2.1258 1965 Unknown [id number] 2.16.840.1.618176.3.579. 2.727 1965 Unknown [id number] 2.16.840.1.559829.3.579. 2.1285 1965 Unknown [id number] 2.16840.1.960645.3.579. 2.1285 1965 Unknown [id number] 2.16.840.1.026346.3.579. 2.1285 1965 Unknown [id number] 2.16.840.1.172671.3.579. 2.1285 1965 Unknown [id number] 2.16.840.1.615644.3.579. 2.1285 1965 Unknown [id number] 2.16.840.1.928690.3.579. 2.1285 1965 Unknown [id number] 2.16.840.1.617828.3.579. 2.1285 1965 Unknown [id number] 2.16.840.1.859815.3.579. 2.1285 1965 Unknown [id number] 2.16.840.1.712134.3.579. 2.1285 1965 Unknown [id number] 2.16.840.1.508468.3.579. 2.1286 1965 Unknown [id number] 2.16.840.1.993188.3.579. 2.1286 1959 Self-pay [id number] 1959 Unknown [id number] 1959 Unknown [id number] Unknown [id number] 2.16.840.1.750741.3.579. 2.531 Social History Date Type Detail Facility Start: 12-30-2022 End: 12-30-2023 Tobacco smoking status Ex-smoker (finding) [facility] Tobacco smoking status Never [facility] Start: 05-07-2020 End: 12-21-2023 Sex Assigned At Female [facility] Start: 09-05-2013 End: 09-11-2020 Tobacco smoking status NHIS Never smoked tobacco (finding) [facility] Start: 1965 Sex Assigned At Female [facility] History of tobacco use [facility] smoker [facility] History of tobacco use [facility] Start: 01-03-2024 End: 01-20-2024 Alcoholic beverage intake Lifetime non-drinker (finding) [facility] Start: 05-07-2020 End: 12-21-2023 History of Social function [facility] Start: 12-30-2022 Alcohol Comment Caffeine: none [facility] Start: 1965 Sex assigned at Not on file [facility] Start: 09-11-2020 Tobacco use and exposure Smokeless tobacco non-user [facility] Start: 11-29-2014 Sex Female (finding) [facility] Functional Status Date Assessment Result Facility 12-30-2023 Functional Status N/A [facility] Clinical Notes 12-21-2023 to 01-20-2024 Deepti [...] nursing note reviewed. Exam conducted with a ropeman present. Vitals: Estimated body mass index is [...] Katie Rust DO documented in this encounter [facility] 01-03-2024 History of Presen t illness [...] nursing note reviewed. Exam conducted with a ropeman present. Vitals: Estimated body mass index is [...] reviewed, and patient is to proceed to [facility] OR. Follow Up: Patient is to follow up between 1-2 weeks post operative to assess proper healing and recovery from procedure. Documented by Deepti Palacios LPN on behalf of: Katie Rust DO documented in this encounter [facility] 12-30-2023 Hospital Discharg e instructions Patient [...] provider. Document Revised: 08/21/2021 Document Reviewed: 08/21/2021 [employer] Patient Education 2023 [employer]. Follow Up Care 12/02/2023 13:46:26 With:Bessie Quiñones, URL Address: When: Unknown Comments:pending imaging and after PFPT [facility] 12-30-2023 Note Patient Education Obstetrics and [...] provider. Document Revised: 08/21/2021 Document Reviewed: 08/21/2021 [employer] Patient Education ? 2023 [employer]. [facility] 12-29-2023 History of Presen t illness Narrative Reason for Appointment: Patient ID: Yulia Dorsey is a 58 y.o. female who presents for Telehealth, UTI, and kidney stone Patient presents today via telephone call for a telehealth appointment. Patients Phone #: [phone] (mobile) Current Medications: has a current medication list which includes the following prescription(s): vitamin c, calcium carbonate, qikupos-ngvchqebh-cyrl, airborne elderberry, and multivitamin. Medical History: Active Ambulatory Problems Diagnosis Date Noted GERD (gastroesophageal reflux disease) 08/14/2013 Acute pelvic pain 10/28/2022 Anxiety state ([facility]) 08/14/2013 Bilateral tinnitus 10/28/2022 Cervical disc disorder 08/14/2013 Fibrocystic breast changes 10/28/2022 Generalized anxiety disorder ([facility]) 03/28/2019 Intermittent vertigo 04/26/2004 Irritable bowel syndrome 08/14/2013 Major depressive disorder, single episode, moderate (HCC) ([facility]/HCC) 03/28/2019 Meniere's disease 08/14/2013 Menopausal symptoms 11/17/2016 [...] Katie Rust DO documented in this encounter [facility] 12-21-2023 History of Presen t illness [...] 08/14/2013 Acute pelvic pain 10/28/2022 Anxiety state ([facility]) 08/14/2013 Bilateral tinnitus 10/28/2022 Cervical disc disorder 08/14/2013 Fibrocystic breast changes 10/28/2022 Generalized anxiety disorder ([facility]) 03/28/2019 Intermittent vertigo 04/26/2004 Irritable bowel syndrome 08/14/2013 Major depressive disorder, single episode, moderate ([facility]) (CMS/[facility]) 03/28/2019 Meniere's disease 08/14/2013 Menopausal symptoms [...] breast cancer 2019 Encounter to discuss procedure Caleb-Fxo viral infection Fibrocystic breast disease IBS (irritable [...] CHOLECYSTECTOMY 2015 DILATION AND CURETTAGE OF UTERUS 2011 HYSTEROSCOPY [...] of: ELIZA Mccollum documented in this encounter [facility] Evaluation + Plan note No data available for this section [facility] Evaluation note No assessment inform ation available [facility] Work Phone: Evaluation note Diagnosis Vaginal burning Other specified symptom associated with female genital organs Vaginal itching Pruritus of genital organs [facility] Diagnosis Urinary tract infection without hematuria, site unspecified Vulvar irritation documented in this encounter [facility] Healthcare[facility] note* Diagnosis Pre-op examination Yeast infection Thickened endometrium Nonspecific (abnormal) findings on radiological and other examination of genitourinary organs Pelvic pain [facility] Diagnosis Postoperative visit S/P D&C (status post dilation and curettage) Other postprocedural status documented in this encounter [facility]ructionsNot on filedocumented in [facility] No data available for this section [facility] Summary Purpose Family History No Family History Records Found Relationship Condition Age at Onset Recorded Date/T lópez father Heart disease Unknown mother Unknown History of stroke Unknown Advance Directives No Advanced Directives Records Found Advance Directive Response Recorded Date/ Time Advance Directives No July 15 11:52am Additional Source Comments INFORMATION SOURCE (unrecogn ized section and content) DATE CREATED AUTHOR 10/02/[address] [facility] pital DATE CREATED AUTHOR AUTHOR'S ORGANIZ ATION 01/04/2024 [facility] EPIC DATE CREATED AUTHOR AUTHOR'S ORGANIZ ATION 01/09/2024 [facility] DATE CREATED AUTHOR AUTHOR'S ORGANIZ ATION 01/14/2024 [facility] DATE CREATED AUTHOR AUTHOR'S ORGANIZ ATION 09/27/2024 [facility] Patient Care team informatio n (unrecognized section and content) Team Status: Active Member Role Status Dates John Porter MD Primary Care Provider Active Team Status: Inactive Member Role Status Dates John Porter MD Primary Care Provider Active Start: January 07, 2024 End: January 07, 2024 Katie Ruts DO Attending Provider Active Start : January 07, 2024 End: January 07, 2024 Product Development Manager Relationship Specialty Start Date End Date John Porter MD [address] [place] [address] PCP - General 09/13/22 Product Development Manager Relationship Specialty Start Date End Date Jonh Porter MD [address] [place] [address] PCP - General 09/13/22 Product Development Manager Relationship Specialty Start Date End Date John Porter MD [address] [place] [facility] [place] [address] PCP - General 09/13/22 Product Development Manager Relationship Specialty Start Date End Date John Porter MD [address] [place] [facility] [place] [address] PCP - General 09/13/22 Product Development Manager Relationship Specialty Start Date End Date John Porter MD [address] [place] [facility] [place] [facility] [place] [address] PCP - General 09/13/22 Product Development Manager Relationship Specialty Start Date End Date John Porter MD [address] [place] [address] PCP - General 09/13/22 Product Development Manager Relationship Specialty Start Date End Date John Porter MD [address] [place] [facility] [place] [address] PCP - General 09/13/22 Product Development Manager Relationship Specialty Start Date End Date John [...] BE BASED ON THE PRIMARY CLINICAL RECORDS. [facility] [employer] [facility]. provides no warranty or guarantee of the accuracy or completeness of information in this document.
--- OUTSIDE RECORDS SUMMARY | 2024-10-05 07:42 | XMS_ITS | Encounter Summary ---
Author Organization [facility] Address [address] [place] [address] Care Team Providers Care Analysis Manager Name Role Phone Estiven Porter MD Primary Care Provider [phone] Encounter Details Date Type Department Care Team (Late st Contact Info) Description 09/22/2022 Clinisync Result Encounter [facility] Unsolicited Katie Rust, DO [address] [facility] [place] [address] Social History Tobacco Use Types [...] : DR KATIE RUST . Admission #: [id number] Family : Order #: [id number] CLICK HERE TO VIEW EXAM RADIOLOGY REPORT [...] breast cancer at age 40. LOCATION: [facility] BREAST COMPOSITION: Almost entirely fatty. FINDINGS: [...] : DR KATIE RUST . Admission #: [id number] Family : Order #: [id number] CLICK HERE TO VIEW EXAM RADIOLOGY REPORT [...] breast cancer at age 40. LOCATION: [facility] BREAST COMPOSITION: Almost entirely fatty. FINDINGS: [...] on filedocumented in this encounter Care Teams Analysis Manager Relationship Specialty Start Date End Date Estiven Porter MD PCP - General 09/13/22 documented as of this encounter
--- OUTSIDE RECORDS SUMMARY | 2024-10-05 07:42 | XMS_ITS | Encounter Summary ---
Author Organization [facility] Address [address] [place] [address] Care Team Providers Care Transportation Services Representative Name Role Phone Estiven Porter MD Primary Care Provider [phone] Encounter Details Date Type Department Care Team (Late st Contact Info) Description 07/13/2023 Clinisync Result Encounter [facility] Unsolicited Katie Rust, DO [address] [facility] [address] [place], [place] [id number] Social History Tobacco Use Types Packs/Day Years [...] EDT Narrative 07/13/2023 7:20 AM EDT [facility] [place] [id number] Ultrasound Report Signed Patient: YULIA DORSEY MR#: [id number] : 1965 Acct:[id number] Age/Sex: 57 / F ADM Date: 07/12/23 Loc: US Attending Dr: Katie Rust D.O. Ordering Physician: Katie Rust D.O. Date of Service: 07/12/23 Procedure(s): US pelvis w/ transvaginal Accession Number(s): [id number] cc: Katie Rust D.O.; Estiven Porter M.D. [place] [id number] Patient Name: YULIA DORSEY MRN: [id number] date: 1965 Sex: F Assigned Patient Location: US Current Patient Location: Accession/Order Number: [id number] Exam Date: 07/12/2023 16:50 Report Date: 07/13/2023 [...] M.D. Signed By: 07/13/2320 DD/ 7 TD/TT: Commercial Insulator: Procedure Note Radiology, Radiologist, MD - 03/19/[address] [address] Ultrasound Report Signed Patient: YULIA DORSEY LMR#: [id number] : 1965Acct:[id number] Age/Sex: 57 / FADM Date: 07/12/23 Loc: US Attending Dr: Katie Rust D.O. Ordering Physician: Katie Rust D.O. Date of Service: 07/12/23 Procedure(s): US pelvis w/ transvaginal Accession Number(s): [id number] cc: Katie Rust D.O.; Estiven Porter M.D. The [place] [id number] Patient Name: YULIA DORSEY MRN: [id number] date: 1965 Sex: F Assigned Patient Location: US Current Patient Location: Accession/Order Number: [id number] Exam Date: 07/12/2023 16:50 Report Date: 07/13/2023 [...] Alvarez M.D. Signed By:07/13/23719 DD/ 7 TD/TT: Commercial Insulator: us Katie Yocasta DO [facility] Final Result documented in this encounter Visit Diagnoses Not on filedocumented in this encounter Care Teams Transportation Services Representative Relationship Specialty Start Date End Date Estiven Porter MD PCP - General 09/13/22 documented as of this encounter
--- OUTSIDE RECORDS SUMMARY | 2024-10-05 07:42 | XMS_ITS | Encounter Summary ---
Author Organization [facility] Address [address] [place] [address] Care Team Providers Care Purchasing Officer Name Role Phone John White MD Primary Care Provider [phone] Encounter Details Date Type Department Care Team (Late st Contact Info) Description 07/19/2023 Clinisync Result Encounter [facility] External Department Unsolicited Katie Rust, DO [address] [facility] [place] [address] Social History Tobacco Use Types [...] EDT Narrative 07/21/2023 9:13 AM EDT The [address] [address] Electrocardiograph Report Signed Patient: YULIA DORSEY MR#: [id number] : 1965 Acct:[id number] Age/Sex: 57 / F ADM Date: 07/19/23 Loc: PST Attending Dr: Katie Rust D.O. Ordering Physician: Katie Rust D.O. 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 Signed By: 07/21/23 0913 DD/ 1511 TD/TT: Dance Historian: Procedure Note Radiology, Radiologist, MD - 07/21/[address] [address] Electrocardiograph Report Signed Patient: YULIA DORSEY LMR#: [id number] : 1965Acct:[id number] Age/Sex: 57 / FADM Date: 07/19/23 Loc: PST Attending Dr: Katie Rust D.O. Ordering Physician: Katie Rust D.O. 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 Signed By:07/21/23 0913 DD/ 1511 TD/TT: Dance Historian: us Katie Rust DO [facility] Final Result documented in this encounter Visit Diagnoses Not on filedocumented in this encounter Care Teams Purchasing Officer Relationship Specialty Start Date End Date John White MD PCP - General 09/13/22 documented as of this encounter
--- OUTSIDE RECORDS SUMMARY | 2024-10-05 07:42 | XMS_ITS | Patient Health Record ---
Author Organization [facility] [place] Address [address] [place] [address] Care Team Providers Care Stereo Equipment Installer Name Role Phone Prashant Porter Primary Care Provider Elmira Castro [phone] Allergies Allergen (clinical drug ingredient) Drug/Non Drug [...] 12:13:06 PM Interpretation: Performing Lab: Notes/Report: [facility] , NT Pro B Type Natriuretic Pept 83.0 <=900.0 pg/mL Performing Lab: see note ML - The [facility] US renal BI Reviewed date:01/03/2024 08:40:59 PM Interpretation: Performing Lab: Notes/Report: Source Facility: [facility]-[address] [place] [address] [place] [address] Ultrasound Report Signed Patient: YULIA DORSEY MR#: [id number] : 1965 Acct:[id number] Age/Sex: 58 / F ADM Date: 01/01/24 Loc: US Attending Dr: Bessie Faust EDITOR PRODUCER Ordering Physician: Bessie Faust NP Date of Service: 01/01/24 Procedure(s): US renal BI Accession Number(s): [id number] cc: Bessie Faust NP; John Porter M.D. The [address] [address] Patient Name: YULIA DORSEY MRN: TBH:[id number] date: 1965 Sex: F Assigned Patient Location: US Current Patient Location: Accession/Order Number: [id number] Exam Date: 01/01/2024 12:40 Report Date: 01/03/2024 [...] Alvarez M.D. Signed By: 01/03/24 0749 DD/ 0746 TD/TT: Hiv Cts Specialist: [place] [address] Ultrasound Report Signed Patient: YULIA DORSEY MR#: [id number] : 1965 Acct:[id number] Age/Sex: 58 / F ADM Date: 01/01/24 Loc: US Attending Dr: Bessie Faust NP Ordering Physician: Bessie Faust NP Date of Service: 01/01/24 Procedure(s): US amber al BI Accession Number(s): [id number] cc: Bessie Faust EDITOR PRODUCER; John Porter M.D. The [place] [address] Patient Name: YULIA DORSEY MRN: [id number] date: 1965 Sex: F Assigned Patient Location: Current Patient Location: Accession/Order Numb er: [id number] Exam Date: 01/01/2024 12:40 Report Date: 01/03/2024 07:46 At the request of: BESSIE FAUST Procedure: US renal BI EXAMINATION: US dago l BI HISTORY: KIDNEY STON ES N20.0 COMPARISON: [...] Alvarez M.D. Signed By: 01/03/24 0749 DD/ 0746 TD/TT: Hiv Cts Specialist: US renal bladder Reviewed date:12/08/2023 07:54:20 PM Interpretation: Performing Lab: Notes/Report: Source Facility: [facility]-[address] [place] [address] [place] [address] Ultrasound Report Signed Patient: YULIA DORSEY MR#: [id number] : 1965 Acct:[id number] Age/Sex: 58 / F ADM Date: 12/07/23 Loc: US Attending Dr: John Porter M.D. Ordering Physician: John Porter M.D. Date of Service: 12/07/23 Procedure(s): US renal bladder Accession Number(s): [id number] cc: John Porter M.D. [address] [address] Patient Name: YULIA DORSEY MRN: [facility]:[id number] date: 1965 Sex: F Assigned Patient Location: US Current Patient Location: Accession/Order Number: [id number] Exam Date: 12/07/2023 07:52 Report Date: 12/08/2023 [...] M.D. Signed By: 12/08/23 0742 DD/ TD/TT: Hiv Cts Specialist: [place] [address] Ultrasound Report Signed Patient: YULIA DORSEY MR#: [id number] : 1965 Acct:[id number] Age/Sex: 58 / F ADM Date: 12/07/23 Loc: US Attending Dr: Kristopher Porter M.D. Ordering Physician: John Porter M.D. Date of Service: 12/07/23 Procedure(s): US amber al bladder Accession Number(s): [id number] cc: John Porter M.D. The [address] [address] Patient Name: YULIA DORSEY MRN: [id number] date: 1965 Sex: F Assigned Patient Location: US Current Patient Location: Accession/Order Numb er: [id number] Exam Date: 12/07/2023 07:52 Report Date: 12/08/2023 [...] Alvarez M.D. Signed By: 12/08/23 0742 DD/ 0740 TD/TT: Hiv Cts Specialist: ALISHA AUTO DIFF Reviewed date:12/14/2023 03:09:01 PM Interpretation: Performing Lab: Notes/Report: [facility] , White Blood Count 6.0 4.0-11.0 10 [...] 3/uL Performing Lab: see note ML - [facility] LB UA RANDOM W or MICROSCOPIC Reviewed date:12/28/2023 08:52:53 PM Interpretation: Performing Lab: Notes/Report: [facility] , Color Urine LT. YELLOW YELLOW Clarity Urine CLEAR CLEAR Specific [place] Urine 1.010 1.005-1.025 pH Urine 6.0 5.0-9.0 [...] NONE SEEN #/LPF Performing Lab: see note [facility] UA RANDOM W or MICROSCOPIC Reviewed date:01/06/2024 09:36:14 PM Interpretation: Performing Lab: Notes/Report: [facility] , Color Urine LT. YELLOW YELLOW Clarity Urine CLEAR CLEAR Specific [place] Urine <=1.005 1.005-1.025 pH Urine 7.0 5.0-9.0 [...] Indicated ALREADY ORDERED Performing Lab: see note [facility] UA RANDOM W or MICROSCOPIC Reviewed date:01/31/2024 08:25:57 PM Interpretation: Performing Lab: Notes/Report: [facility] , Color Urine LT. YELLOW YELLOW Clarity Urine CLEAR CLEAR Specific [place] Urine <=1.005 1.005-1.025 pH Urine 6.0 5.0-9.0 [...] NONE SEEN #/LPF Performing Lab: see note [facility] CBC AUTO DIFF Reviewed date:08/03/2024 12:13:06 PM Interpretation: Performing Lab: Notes/Report: [facility] , White Blood Count 4.6 [...] Performing Lab: see note ML - The [facility] LB FREE T3 Reviewed date:08/03/2024 12:13:06 PM Interpretation: Performing Lab: Notes/Report: [facility] , Free T3 3.07 2.18-3.98 pg/mL Performing Lab: see note ML - [facility] LB LIPID PROFILE Reviewed date:08/03/2024 12:13:06 PM Interpretation: Performing Lab: Notes/Report: [facility] , Triglycerides 39 <=150 mg/dL [...] >11.0 HIGH RISK Performing Lab: see note - [facility] LB PROF 14(COMP METB) Reviewed date:08/03/2024 12:13:06 PM Interpretation: Performing Lab: Notes/Report: [facility] , Sodium 143 136-145 mmol/L [...] 1.1 Performing Lab: see note ML - [facility] LB T4 Reviewed date:08/03/2024 12:13:06 PM Interpretation: Performing Lab: Notes/Report: [facility] , T4 Thyroxine 9.10 4.80-13.90 ug/dL Performing Lab: see note ML - [facility] LB TSH Reviewed date:08/03/2024 12:13:06 PM Interpretation: Performing Lab: Notes/Report: [facility] , Thyroid Stimulating Hormone 0.941 0.358-3.740 uIU/mL Performing Lab: see note ML - [facility] LB Troponin I High Sensitivity Reviewed date:08/03/2024 12:13:06 PM Interpretation: Performing Lab: Notes/Report: [facility] [place] [facility] , Troponin I High Sensitivity <4.0 4.0-51.3 pg/mL CUT-OFF POINTS HAVE BEEN ESTABLISHED BASED ON THE FOURTH UNIVERSAL DEFINITION OF MYOCARDIAL INFARCTION. THE UPPER REFERENCE LIMIT (URL) OF TROPONIN, DEFINED THE 99TH PERCENTILE OF cTnI DISTRIBUTION IN A REFERENCE POPULATION, HAS BEEN CONFIRMED THE DECISION THRESHOLD FOR CO DIAGNOSIS. 99TH PERCENTILE = 51.4 PG/ML NOTE: HIGH-SENSITIVITY TROPONIN ASSAY IS NOT INTENDED TO BE USED IN ISOLATION BUT SHOULD BE INTERPRETED IN CONJUNCTION WITH OTHER DIAGNOSTIC AND CLINICAL INFORMATION. Performing Lab: see note - [facility] LB CEA Reviewed date:09/28/2024 08:17:43 PM Interpretation: Performing Lab: Notes/Report: [facility] , CEA 2.1 0.0-4.7 ng/mL Nonsmokers <3.9 Smokers <5.6 [facility] Electrochemiluminescence Immunoassay (ECLIA) Values obtained with different assay methods or kits cannot be used interchangeably. Results cannot be interpreted as absolute evidence of the presence or absence of malignant disease. Performing Lab: see note [facility] CA 19-9 Reviewed date:09/28/2024 08:17:43 PM Interpretation: Performing Lab: Notes/Report: [facility] , CA 19-9 3 0-35 U/mL [facility] Electrochemiluminescence Immunoassay (ECLIA) Values obtained with different assay methods or kits cannot be used interchangeably. Results cannot be interpreted as absolute evidence of the presence or absence of malignant disease. Performed at: [facility] [employer] [id number] Vinyl Cutter: Ti Macias PhD, Phone: [phone] Performing Lab: see note [facility] Acute Hepatitis Reviewed date:09/28/2024 08:17:43 PM Interpretation: Performing Lab: Notes/Report: [facility] , Hep A Ab, IgM Negative Negative A negative anti-HAV IgM result suggests no recent or current HAV infection. HBsAg Screen Negative Negative Hep B Core Ab, IgM Negative Negative HCV Ab Non Reactive Non Reactive Interpretation: Comment . Not infected with HCV unless early or acute infection is suspected (which may be delayed in an immunocompromised individual), or other evidence exists to indicate HCV infection. Performed at: [facility] [employer] [id number] Vinyl Cutter: Ti Macias PhD, Phone: [phone] Performing Lab: see note [facility] CA 15-3 Reviewed date:09/28/2024 08:17:43 PM Interpretation: Performing Lab: Notes/Report: RAYNE Roach 15-3 14.3 0.0-25.0 U/mL [facility] Electrochemiluminescence Immunoassay (ECLIA) Values obtained with different assay methods or kits cannot be used interchangeably. Results cannot be interpreted as absolute evidence of the presence or absence of malignant disease. Performed at: [address] [id number] [employer]inyl Cutter: Ti Macias PhD, Phone: [phone] Performing Lab: see note [facility] LB ECG 12 lead Reviewed date:01/09/2024 11:13:11 AM Interpretation: Performing Lab: Notes/Report: Source Facility: [place] [address] Electrocardiograph Report Signed Patient: YULIA DORSEY MR#: [id number] : 1965 Acct:[id number] Age/Sex: 58 / F ADM Date: 01/07/24 Loc: SURGOUT Attending Dr: Katie Rust D.O. Ordering Physician: Katie Rust D.O. Date of Service: 01/07/24 Procedure(s): ECG 12 lead Accession Number(s): [id number] cc: [facility] Test Date: 2024-01-07 Pat Name: YULIA DORSEY Department: Room: - Gender: Female Sales Operations Director: : 1965 Requested By: KATIE RUST Order Number: [id number] Reading MD: VADIM RAMIREZ Measurements Intervals [place] Rate: 89 P: 73 WA: 162 QRS: -4 QRSD: 102 T: 70 QT: 384 QTc: 469 Interpretive Statements SINUS RHYTHM NONSPECIFIC ST T-WAVE ABNORMALITY Compared to ECG 07/19/2023 15:11:49 T-wave abnormality now present Electronically Signed On 01-07-2024 18:27:28 EDT by VADIM RAMIREZ Dictated By: Vadim Ramirez D.O. Signed By: 01/07/241826 DD/ 2 TD/TT: Hiv Cts Specialist: [place] [address] Electrocardiograph Report Signed Patient: YULIA DORSEY MR#: [id number] : 1965 Acct:[id number] Age/Sex: 58 / F ADM Date: 01/07/24 Loc: SURGOUT Attending Dr: Katie Rust D.O. Ordering Physician: Katie Rust D.O. Date of Service: 01/07/24 Procedure(s): ECG 12 lead Accession Number(s): [id number] cc: [facility] Test Date: 2024-01-07 Pat Name: YULIA Henley Department: 03 Room: - Gender: Female Sales Operations Director: : 1965 Requested By: KATIE RUST Order Number: [id number] Reading MD: VADIM RAMIREZ Measurements Intervals [place] Rate: 89 P: 73 WA: 162 QRS: -4 QRSD: 102 T: 70 QT: 384 QTc: 469 Interpretive Statements SINUS RHYTHM NONSPECIFIC ST T-WAV E ABNORMALITY Compared to ECG 07/19/2023 15:11:49 T-wave abnormality n ow present Electronically Juliet d On 01-07-2024 18:27:28 EDT by VADIM RAMIREZ Dictated By: Vadim Ramirez D.O. Signed By: 01/07/241826 DD/ 2 TD/TT: Hiv Cts Specialist: PAULETTE SEVERINO HCG Reviewed date:01/09/2024 11:13:11 AM Interpretation: Performing Lab: Notes/Report: [facility] , HCG Quantitative <1 5-50 0.2-1 WEEK 50-500 1-2 WEEKS 100-5,000 2-3 WEEKS 500-10,000 3-4 WEEKS 1,000-50,000 4-5 WEEKS 10,000-100,000 5-6 WEEKS 15,000-200,000 6-8 WEEKS 10,000-100,000 2-3 MONTHS Performing Lab: see note ML - [facility] LB CBC AUTO DIFF Reviewed date:01/09/2024 11:13:11 AM Interpretation: Performing Lab: Notes/Report: [facility] , White Blood Count 5.1 [...] Performing Lab: see note ML - [facility] LB GLYCOHEMOGLOBIN A1C Reviewed date:08/03/2024 12:13:06 PM Interpretation: Performing Lab: Notes/Report: [facility] , Glycohemoglobin A1C 5.9 4.5-6.2 % ADA RECOMMENDED LIMIT 4.0 - 6.0 ADA THERAPEUTIC TARGET < 7.0 ACTION SUGGESTED > 7.0 Estimated Average Glucose 123 Performing Lab: see note ML - [facility] LB TSH Reviewed date:09/27/2024 09:33:44 PM Interpretation: Performing Lab: Notes/Report: [facility] , Thyroid Stimulating Hormone 1.423 0.358-3.740 uIU/mL Performing Lab: see note ML - [facility] LB T4 Reviewed date:09/27/2024 09:33:44 PM Interpretation: Performing Lab: Notes/Report: [facility] , T4 Thyroxine 8.00 4.80-13.90 ug/dL Performing Lab: see note - [facility] LB PROF 14(COMP METB) Reviewed date:09/27/2024 09:33:44 PM Interpretation: Performing Lab: Notes/Report: [facility] , Sodium 143 136-145 mmol/L Potassium 3.9 3.5-5.1 mmol/L Chloride 103 98-107 mmol/L Carbon Dioxide 30.5 21.0-32.0 mmol/L Anion Gap 13.4 Glucose 91 74-106 mg/dL Blood Urea Nitrogen 15.0 7.0-18.0 mg/dL Creatinine 0.68 0.55-1.02 mg/dL Estimated GFR ( Tasneem >60 >=60 mL/min/1.73m 2 Estimated GFR (Non- Michelle >60 >=60 mL/min/1.73m 2 BUN Creatinine Ratio 22.1 Calcium 9.6 8.5-10.1 mg/dL Bilirubin Total 0.6 0.2-1.0 mg/dL Aspartate Amino Transferase 18 15-37 U/L Alanine Aminotransferase 28 14-59 U/L Alkaline Phosphatase 73 46-116 U/L Total Protein 7.6 6.4-8.2 g/dL Albumin Level 3.8 3.4-5.0 g/dL Globulin 3.8 Albumin Globulin Ratio 1.0 Performing Lab: see note ML - [facility] LB FREE T3 Reviewed date:09/27/2024 09:33:44 PM Interpretation: Performing Lab: Notes/Report: [facility] , Free T3 2.51 2.18-3.98 pg/mL Performing Lab: see note - [facility] LB CBC AUTO DIFF Reviewed date:09/27/2024 09:33:44 PM Interpretation: Performing Lab: Notes/Report: [facility] , White Blood Count 5.4 4.0-11.0 10 3/uL Red Blood Count 4.91 4.20-5.40 10 6/uL Hemoglobin 14.4 12.0-16.0 g/dL Hematocrit 43.6 36.0-48.0 % Mean Corpuscular Volume 88.8 81.0-99.0 fL Mean Corpuscular Hemoglobin 29.3 26.7-34.0 pg Mean Corpuscular HGB Conc 33.0 29.9-35.2 g/dL Red Cell Distribution Width 13.3 11.0-15.0 % Platelet Count 274 150-450 10 3/uL Mean Platelet Volume 10.0 9.5-13.5 fL Neutrophils Percent Auto 46.3 43.0-75.0 % Lymphocytes Percent Auto 36.0 20.5-60.0 % Monocytes Percent Auto 11.0 1.7-12.0 % Eosinophils Percent Auto 5.2 0.9-7.0 % Basophils Percent Auto 1.3 0.2-2.0 % Immature Granulocytes Pct Auto 0.2 0.0-0.5 % Neutrophils Absolute Auto 2.5 1.4-6.5 10 3/uL Lymphocytes Absolute Auto 1.9 1.2-3.8 10 3/uL Monocytes Absolute Auto 0.6 0.3-0.8 10 3/uL Eosinophils Absolute Auto 0.3 0.0-0.7 10 3/uL Basophils Absolute Auto 0.1 0.0-0.1 10 3/uL Immature Granulocytes Abs Auto 0.01 0.00-0.03 10 3/uL Performing Lab: see note ML - [facility] LB Cortisol Reviewed date:09/03/2024 06:17:14 PM Interpretation: Performing Lab: Notes/Report: [facility] , Cortisol 25.7 6.2-19.4 ug/dL Please Note: The reference interval and flagging for this test is for an AM collection. If this is a PM collection please use: Cortisol PM: 2.3-11.9 Performed at: - [facility] [address] [id number] Vinyl Cutter: Ti Macias PhD, Phone: [phone] Performing Lab: see note - [facility] LB MR head/brain wo con Reviewed date:08/09/2024 08:03:31 PM Interpretation: Performing Lab: Notes/Report: Source Facility: [facility]-[address] [place] [address] [place] [address] Magnetic Resonance Report Signed Patient: YULIA DORSEY MR#: [id number] : 1965 Acct:[id number] Age/Sex: 58 / F ADM Date: 08/09/24 Loc: MRI Attending Dr: John Porter M.D. Ordering Physician: John Porter M.D. Date of Service: 08/09/24 Procedure(s): MR head/brain wo con Accession Number(s): [id number] cc: John Porter M.D. [place] [address] Patient Name: YULIA DORSEY MRN: [id number] date: 1965 Sex: F Assigned Patient Location: MRI Current Patient Location: MRI Accession/Order Number: [id number] Exam Date: 08/09/2024 09:53 Report Date: 08/09/2024 [...] Olivia Gutierrez M.D.08/09/2024 10:01 AM Dictation Location: [place] [address] Electronically authenticated by: [id number] Y Date: 08/09/2024 10:01 Dictated By: Olivia Gutierrez M.D. Signed By: 08/09/24 1004 DD/ 1001 TD/TT: Hiv Cts Specialist: [place] [address] Magnetic Resonance Report Signed Patient: YULIA DORSEY MR#: [id number] : 1965 Acct:[id number] Age/Sex: 58 / F ADM Date: 08/09/24 Loc: MRI Attending Dr: Kristopher Porter M.D. Ordering Physician: John Porter M.D. Date of Service: 08/09/24 Procedure(s): MR head/brain wo con Accession Number(s): [id number] cc: John Porter M.D. [address] [address] Patient Name: YULIA DORSEY MRN: [id number] date: 1965 Sex: F Assigned Patient Location: MRI Current Patient Location: MRI Accession/Order Numb er: [id number] Exam Date: 08/09/2024 09:53 Report Date: 08/09/2024 [...] MR/MR head/brain wo con IMPRESSION: NO ACUTE INTRACRANIA L FINDINGS. Impression dictated by: Olivia Gutierrez M.D.08/09/2024 10:01 AM Dictation Location: [place] [address] Electronically authenticated by: [id number] Y Date: 08/09/2024 10:01 Dictated By: Olivia Gutierrez M.D. Signed By: 08/09/24 1004 DD/ 1001 TD/TT: Hiv Cts Specialist: CT soft tissue neck w con Reviewed date:05/31/2024 12:29:26 PM Interpretation: Performing Lab: Notes/Report: Source Facility: [place] [address] CT Scan Report Signed Patient: YULIA DORSEY MR#: [id number] : 1965 Acct:[id number] Age/Sex: 58 / F ADM Date: 05/30/24 Loc: CT Attending Dr: John Porter M.D. Ordering Physician: John Porter M.D. Date of Service: 05/30/24 Procedure(s): CT soft tissue neck wo con Accession Number(s): [id number] cc: John Porter M.D. [place] [address] Patient Name: YULIA DORSEY MRN: [id number] date: 1965 Sex: F Assigned Patient Location: CT Current Patient Location: Accession/Order Number: [id number] Exam Date: 05/30/2024 15:59 Report Date: 05/31/2024 [...] By: Gabo Strong M.D. Signed By: 05/31/24 120 DD/ 120 TD/TT: Hiv Cts Specialist: [place] [address] CT Scan Report Signed Patient: YULIA DORSEY MR#: [id number] : 1965 Acct:[id number] Age/Sex: 58 / F ADM Date: 05/30/24 Loc: CT Attending Dr: Kristopher Porter M.D. Ordering Physician: John Porter M.D. Date of Service: 05/30/24 Procedure(s): CT sof t tissue neck wo con Accession Number(s): [id number] cc: John Porter M.D. [place] [address] Patient Name: YULIA DORSEY MRN: [id number] date: 1965 Sex: F Assigned Patient Location: CT Current Patient Location: Accession/Order Numb er: [id number] Exam Date: 05/30/2024 15:59 Report Date: 05/31/2024 [...] CAVITY: No visi ble mass. OROPHARYNX: No asymmetry of the facial [...] Signed By: 05/31/24 1206 DD/ 1204 TD/TT: Hiv Cts Specialist: XR chest 2V Reviewed date:03/30/2024 12:46:52 PM Interpretation: Performing Lab: Notes/Report: Source Facility: [place] [address] XRay Report Signed Patient: YULIA DORSEY MR#: [id number] : 1965 Acct:[id number] Age/Sex: 58 / F ADM Date: 03/29/24 Loc: RAD Attending Dr: John Porter M.D. Ordering Physician: John Porter M.D. Date of Service: 03/29/24 Procedure(s): XR chest 2V Accession Number(s): [id number] cc: John Porter M.D. [place] [address] Patient Name: YULIA DORSEY MRN: [id number] date: 1965 Sex: F Assigned Patient Location: RAD Current Patient Location: Accession/Order Number: [id number] Exam Date: 03/29/2024 15:25 Report Date: 03/30/2024 [...] Dictated By: Ellyn Alvarez M.D. Signed By: 03/30/24739 DD/ 7 TD/TT: Hiv Cts Specialist: [place] [address] XRay Report Signed Patient: YULIA DORSEY MR#: [id number] : 1965 Acct:[id number] Age/Sex: 58 / F ADM Date: 03/29/24 Loc: RAD Attending Dr: Kristopher Porter M.D. Ordering Physician: John Porter M.D. Date of Service: 03/29/24 Procedure(s): XR tere st 2V Accession Number(s): [id number] cc: John Porter M.D. The [place] [address] Patient Name: YULIA DORSEY MRN: [id number] date: 1965 Sex: F Assigned Patient Location: RAD Current Patient Location: Accession/Order Numb er: [id number] Exam Date: 15:25 Report Date: 03/30/2024 07:38 At the request of: JOHN PORTER Procedure: XR chest 2V EXAMINATION: XR ches t 2V HISTORY: Acute Bronchitis COMPARISON: No relev ant comparison available. TECHNIQUE: PA and lateral FINDINGS: LUNGS: No significan t pulmonary parenchymal abnormalities. VASCULATURE: No increased pulmonary vasculature. PLEURA: No pneumothorax, effusion, or pleural thickening. CARDIAC: No cardiomegaly or cardiac silhouette abnormality. MEDIASTINUM: No visi ble mass or adenopathy. BONES: No fracture o r visible bone lesion. OTHER: Negative. XR/XR chest 2V IMPRESSION: No acute cardiopulmonary process Electronically authenticated by: ELLYN ALVAREZ Date: 03/30/2024 07:38 Dictated By: Bhavik Alvarez M.D. Signed By: 03/30/24739 DD/ 7 TD/TT: Hiv Cts Specialist: RAYNE 30 day event monitor Reviewed date:02/27/2024 11:32:24 AM Interpretation: Performing Lab: Notes/Report: Source Facility: [place] [address] Cardiology Report Signed Patient: YULIA DORSEY MR#: [id number] : 1965 Acct:[id number] Age/Sex: 58 / F ADM Date: 01/14/24 Loc: CARD Attending Dr: John Porter M.D. Ordering Physician: John Porter M.D. Date of Service: 01/14/24 Procedure(s): OK 30 day event monitor Accession Number(s): [id number] cc: John Porter M.D. 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 Signed By: 02/25/2470002/25/24700 DD/ 6 TD/TT: Hiv Cts Specialist: [place] [address] Cardiology Report Signed Patient: YULIA DORSEY MR#: [id number] : 1965 Acct:[id number] Age/Sex: 58 / F ADM Date: 01/14/24 Loc: CARD Attending Dr: Kristopher Porter M.D. Ordering Physician: John Porter M.D. Date of Service: 01/14/24 Procedure(s): CA 30 day event monitor Accession Number(s): [id number] cc: John Porter M.D. 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 Signed By: 02/25/2470002/25/24700 DD/ 6 TD/TT: Hiv Cts Specialist: Urine Culture, Routine Reviewed date:01/31/2024 09:32:29 AM Interpretation: Performing Lab: Notes/Report: [facility] , Urine Culture, Routine See Below For Report Urine Culture, Routine Urine Culture, Routine Mixed urogenital umu Urine Culture, Routine Urine Culture, Routine Less than 10,000 colonies/mL Urine Culture, Routine Urine Culture, Routine Performed at: [facility] Urine Culture, Routine Urine Culture, Routine [address] [place], [place] [phone] Urine Culture, Routine Urine Culture, Routine Vinyl Cutter: Ti Macias PhD, Phone: [phone] Urine Culture, Routine Performing Lab: see note - [facility] LB SEE REPORT - Shirt Line Operator Id information not found for OBX-specific state farm agent legend Urine Culture, Routine Reviewed date:01/09/2024 11:13:11 AM Interpretation: Performing Lab: Notes/Report: [facility] , Urine Culture, Routine See Below For Report Urine Culture, Routine Urine Culture, Routine Culture shows less than 10,000 colony forming units of bacteria per Urine Culture, Routine Urine Culture, Routine milliliter of urine. This colony count is not generally considered Urine Culture, Routine Urine Culture, Routine to be clinically significant. Urine Culture, Routine Urine Culture, Routine Performed at: [facility] Urine Culture, Routine Urine Culture, Routine [address] [place] [phone] Urine Culture, Routine Urine Culture, Routine Vinyl Cutter: Ti Macias PhD, Phone: [phone] Urine Culture, Routine Performing Lab: see note - [facility] LB SEE REPORT - Shirt Line Operator Id information not found for OBX-specific state farm agent legend XR abdomen 1V Reviewed date:01/03/2024 08:40:59 PM Interpretation: Performing Lab: Notes/Report: Source Facility: [place] [address] XRay Report Signed Patient: YULIA DORSEY MR#: [id number] : 1965 Acct:[id number] Age/Sex: 58 / F ADM Date: 01/01/24 Loc: US Attending Dr: Bessie Faust NP Ordering Physician: Bessie Faust NP Date of Service: 01/01/24 Procedure(s): XR abdomen 1V Accession Number(s): [id number] cc: Bessie Faust NP; John Porter M.D. [place] [address] Patient Name: YULIA DORSEY MRN: [id number] date: 1965 Sex: F Assigned Patient Location: US Current Patient Location: US Accession/Order Number: [id number] Exam Date: 01/01/2024 12:36 Report Date: 01/03/2024 [...] Signed By: 01/03/24 1018 DD/ 1016 TD/TT: Hiv Cts Specialist: [place] [address] XRay Report Signed Patient: YULIA DORSEY MR#: [id number] : 1965 Acct:[id number] Age/Sex: 58 / F ADM Date: 01/01/24 Loc: US Attending Dr: Bessie Faust NP Ordering Physician: Bessie Faust NP Date of Service: 01/01/24 Procedure(s): XR abdomen 1V Accession Number(s): [id number] cc: Besise Faust NP; John Porter M.D. [place] [address] Patient Name: YULIA DORSEY MRN: [id number] date: 1965 Sex: F Assigned Patient Location: US Current Patient Location: US Accession/Order Numb er: [id number] Exam Date: 01/01/2024 12:36 Report Date: 01/03/2024 10:16 At the request of: BESSIE FAUST Procedure: XR abdome n 1V EXAMINATION: XR abdo men 1V HISTORY: [...] Signed By: 01/03/24 1018 DD/ 1016 TD/TT: Hiv Cts Specialist: Urine Culture, Routine Reviewed date:01/02/2024 08:39:52 PM Interpretation: Performing Lab: Notes/Report: [facility] , Urine Culture, Routine See Below For Report Urine Culture, Routine Urine Culture, Routine No growth Urine Culture, Routine Urine Culture, Routine Performed at: [facility] Urine Culture, Routine Urine Culture, Routine [address] [place] [phone] Urine Culture, Routine Urine Culture, Routine Vinyl Cutter: Ti Macias PhD, Phone: [phone] Urine Culture, Routine Performing Lab: see note LC - [facility] LB SEE REPORT - Shirt Line Operator Id information not found for OBX-specific state farm agent legend PROF 14(COMP METB) Reviewed date:12/29/2023 07:26:32 PM Interpretation: Performing Lab: Notes/Report: [facility] , Sodium 139 136-145 mmol/L [...] 1.1 Performing Lab: see note ML - [facility] CBC AUTO DIFF Reviewed date:12/28/2023 08:52:53 PM Interpretation: Performing Lab: Notes/Report: [facility] , White Blood Count 8.1 [...] 3/uL Performing Lab: see note ML - [facility] LB AMYLASE Reviewed date:12/29/2023 07:26:32 PM Interpretation: Performing Lab: Notes/Report: [facility] , Amylase 81 25-115 U/L Performing Lab: see note ML - [facility] LB Urine Culture, Routine Reviewed date:12/24/2023 12:41:09 PM Interpretation: Performing Lab: Notes/Report: [facility] , Urine Culture, Routine See Below For Report Urine Culture, Routine Urine Culture, Routine Mixed urogenital umu Urine Culture, Routine Urine Culture, Routine 10,000-25,000 colony forming units per mL Urine Culture, Routine Urine Culture, Routine Performed at: [facility] Urine Culture, Routine Urine Culture, Routine [address] [place] [phone] Urine Culture, Routine Urine Culture, Routine Vinyl Cutter: Ti Macias PhD, Phone: [phone] Urine Culture, Routine Performing Lab: see note LC - [facility] LB SEE REPORT - Shirt Line Operator Id information not found for OBX-specific state farm agent legend PROF 14(COMP METB) Reviewed date:12/14/2023 03:09:01 PM Interpretation: Performing Lab: Notes/Report: [facility] , Sodium 141 136-145 mmol/L Potassium 4.2 [...] 1.2 Performing Lab: see note ML - [facility] LB Urine Culture, Routine Reviewed date:12/15/2023 08:05:55 [...] Interpretation SHI Status Urine Culture, Routine 50,000-100,000 colony forming units per mL Urine Culture, Routine Organism: Gram negative stephanie : O:GNR Isolated O:KLEBPN Isolated Organism: 1.2 Antibiotic Interpretation SHI Status Urine Culture, Routine Gram negative stephanie Urine Culture, Routine Organism: Gram negative stephanie : O:GNR Isolated O:KLEBPN Isolated Organism: 1.2 Antibiotic Interpretation SHI Status Urine Culture, Routine Organism: Klebsiella pneumoniae. : Urine Culture, Routine Organism: Gram [...] Status Urine Culture, Routine the oral agents cefaclor, cefdinir, cefpodoxime, Urine Culture, Routine Organism: Gram negative stephanie : O:GNR Isolated O:KLEBPN Isolated Organism: 1.2 Antibiotic Interpretation SHI Status Urine Culture, Routine cefprozil, cefuroxime, cephalexin, and loracarbef when Urine Culture, Routine [...] Interpretation SHI Status Urine Culture, Routine 50,000-100,000 colony forming units per mL Urine Culture, Routine [...] SHI Status Urine Culture, Routine [facility]formed at: [facility] Urine Culture, Routine Organism: Gram negative stephanie : O:GNR Isolated O:KLEBPN Isolated Organism: 1.2 Antibiotic Interpretation SHI Status Urine Culture, Routine [address] [facility] [place], [place] [phone] Urine Culture, Routine Organism: Gram negative stephanie : O:GNR Isolated O:KLEBPN Isolated Organism: 1.2 Antibiotic Interpretation SHI Status Urine Culture, Routine Vinyl Cutter: Ti Macias PhD, Phone: [phone] Urine Culture, Routine Organism: Gram negative stephanie : O:GNR Isolated O:KLEBPN Isolated Organism: 1.2 Antibiotic Interpretation SHI Status Urine Culture, Routine See Below For Report Urine Culture, Routine Organism: Gram negative stephanie : O:GNR Isolated O:KLEBPN Isolated Organism: 1.2 Antibiotic Interpretation SHI Status Urine Culture, Routine AMOXICILLIN/CLAVULANIC ACID S F Urine Culture, Routine Organism: [...] Antibiotic Interpretation SHI Status Urine Culture, Routine Trimethoprim/Sulfametho xazole S F Urine Culture, Routine Organism: Gram negative stephanie : O:GNR Isolated O:KLEBPN Isolated Organism: 1.2 Antibiotic Interpretation SHI Status Performing Lab: see note LC - [facility] LB SEE REPORT - Shirt Line Operator Id information not found for OBX-specific state farm agent legend UA RANDOM W or MICROSCOPIC Reviewed date:12/08/2023 07:54:20 PM Interpretation: Performing Lab: Notes/Report: [facility] , Color Urine LT. YELLOW YELLOW Clarity Urine SL CLOUDY CLEAR Specific [place] Urine 1.025 1.005-1.025 pH Urine 6.0 5.0-9.0 [...] YES Performing Lab: see note ML - [facility] PROF 14(COMP METB) Reviewed date:11/25/2023 08:03:23 PM Interpretation: Performing Lab: Notes/Report: [facility] , Sodium 139 136-145 mmol/L [...] 1.1 Performing Lab: see note ML - [facility] LB Cortisol Reviewed date:09/21/2024 06:05:26 PM Interpretation: Performing Lab: Notes/Report: [facility] , Cortisol 21.0 6.2-19.4 ug/dL Please Note: The reference interval and flagging for this test is for an AM collection. If this is a PM collection please use: Cortisol PM: 2.3-11.9 Performed at: [address] [id number] Vinyl Cutter: Ti Macias PhD, Phone: [phone] Performing Lab: see note [facility] PROF 14(COMP METB) Reviewed date:08/27/2024 12:30:00 PM Interpretation: Performing Lab: Notes/Report: [facility] , Sodium 142 136-145 mmol/L Potassium 3.9 [...] Ratio 1.1 Performing Lab: see note - [facility] LB CORTISOL AM Reviewed date:08/27/2024 05:04:20 PM Interpretation: Performing Lab: Notes/Report: [facility] , Cortisol - AM 22.3 6.2-19.4 ug/dL Performed at: [address] [id number] Vinyl Cutter: Ti Macias PhD, Phone: [phone] Performing Lab: see note [facility] LB GLYCOHEMOGLOBIN A1C Reviewed date:01/29/2024 09:30:43 PM Interpretation: Performing Lab: Notes/Report: [facility] , Glycohemoglobin A1C 5.7 4.5-6.2 % ADA RECOMMENDED LIMIT 4.0 - 6.0 ADA THERAPEUTIC TARGET < 7.0 ACTION SUGGESTED > 7.0 Estimated Average Glucose 117 Performing Lab: see note - [facility] LB PROF CHEM 8 (BAS METB) Reviewed date:01/29/2024 09:30:43 PM Interpretation: Performing Lab: Notes/Report: [facility] , Sodium 139 136-145 mmol/L [...] 9.3 8.5-10.1 mg/dL Performing Lab: see note [facility] UA RANDOM W or MICROSCOPIC Reviewed date:12/21/2023 04:03:43 PM Interpretation: Performing Lab: Notes/Report: [facility] , Color Urine LT. YELLOW YELLOW Clarity Urine CLEAR CLEAR Specific [place] Urine <=1.005 1.005-1.025 pH Urine 6.0 5.0-9.0 [...] ALREADY ORDERED Performing Lab: see note - [facility] LB MM tomosynthesis screening B I Reviewed date:06/14/2024 07:21:54 PM Interpretation: Performing Lab: Notes/Report: Source Facility: [facility]-[address] [place] [address] [place] [address] Mammography Report Signed Patient: YULIA DORSEY MR#: [id number] : 1965 Acct:[id number] Age/Sex: 58 / F ADM Date: 05/30/24 Loc: MAMMO Attending Dr: Katie Rust D.O. Ordering Physician: Katie Rust D.O. Results: Date of Service: 05/30/24 Follow Up: Procedure(s): MM tomosynthesis screening BI Accession Number(s): [id number] cc: Katie Rust D.O.; John Porter M.D. Patient Name: YULIA DORSEY MR#: [id number] : 1965 Exam Date: 05/30/2024 Ordering Doctor: [...] breast cancer at age 40. LOCATION: [facility] BREAST COMPOSITION: The breasts are [...] Signed By: 05/30/24 1635 DD/ 1634 TD/TT: Hiv Cts Specialist: [place] [address] Mammography Report Signed Patient: YULIA DORSEY MR#: [id number] : 1965 Acct:[id number] Age/Sex: 58 / F ADM Date: 05/30/24 Loc: MAMMO Attending Dr: Katie Rust D.O. Ordering Physician: Katie Rust D.O. Results: Date of Service: 05/30/24 Follow Up: Procedure(s): MM tomosynthesis screening BI Accession Number(s): [id number] cc: Katie Rust D.O. ; John Porter M.D. Patient Name: YULIA DORSEY MR#: [id number] : 1965 Exam Date: 05/30/2024 Ordering Doctor: [...] Breast Canc er Risk 5.60% Personal Breast Canc er No Personal Ovarian Can cer No Treatments None Family Cancers Cousin-paternal with breast cancer at age 54; Cousin-maternal with breast cancer at age 40. LOCATION: [facility] BREAST COMPOSITION: The breasts are almost [...] Signed By: 05/30/24 1635 DD/ 1634 TD/TT: Hiv Cts Specialist: Urine Culture, Routine Reviewed date:05/28/2024 03:45:49 PM Interpretation: Performing Lab: Notes/Report: [facility] , Urine Culture, Routine See Below For Report Urine Culture, Routine Urine Culture, Routine Culture shows less than 10,000 colony forming units of bacteria per Urine Culture, Routine Urine Culture, Routine milliliter of urine. This colony count is not generally considered Urine Culture, Routine Urine Culture, Routine to be clinically significant. Urine Culture, Routine Urine Culture, Routine Performed at: [facility] Urine Culture, Routine Urine Culture, Routine [address] [place] [phone] Urine Culture, Routine Urine Culture, Routine Vinyl Cutter: Ti Macias PhD, Phone: [phone] Urine Culture, Routine Performing Lab: see note LC - [facility] LB SEE REPORT - Shirt Line Operator Id information not found for OBX-specific state farm agent legend UA RANDOM W or MICROSCOPIC Reviewed date:05/25/2024 07:58:02 PM Interpretation: Performing Lab: Notes/Report: [facility] , Color Urine LT. YELLOW YELLOW Clarity Urine CLEAR CLEAR Specific [place] Urine 1.015 1.005-1.025 pH Urine 5.5 5.0-9.0 [...] NO Performing Lab: see note ML - [facility] LB PROF 14(COMP METB) Reviewed date:12/21/2023 04:03:43 PM Interpretation: Performing Lab: Notes/Report: [facility] , Sodium 140 136-145 mmol/L [...] 1.1 Performing Lab: see note ML - [facility] LB CBC AUTO DIFF Reviewed date:12/21/2023 04:03:43 PM Interpretation: Performing Lab: Notes/Report: [facility] , White Blood Count 6.5 4.0-11.0 10 [...] 3/uL Performing Lab: see note ML - [facility] LB AMYLASE Reviewed date:12/21/2023 04:03:43 PM Interpretation: Performing Lab: Notes/Report: [facility] , Amylase 40 25-115 U/L Performing Lab: see note ML - [facility] LB Reason For Referral Diagnosis 1 Elevated cortisol le michelle (R79.89) Referral Organization [facility] Referring Provider First Name Prashant Referring Provider Last Name [facility] Referring Provider Speciality [facility] Referred Provider Allyson Thomas Referred Provider Specialty Internal Med jaida Referral Priority Routine Diagnosis 1 Elevated cortisol le michelle (E27.0) Referral Organization [facility] Referring Provider First Name Prashant Referring Provider Last Name [facility] Referring Provider [facility] Referred Provider Gala Flores Referred Provider Specialty [...] W/U Status Risk Notes Problem Streptococcal pharyngitis (02079199) Streptococcal pharyngitis (J02.0) Active confirmed Problem 27484066 Other specified acquired deformities of left lower leg (M21.862) Active confirmed Problem Palpitations (37786944) Palpitations (R00.2) Active confirmed Problem Snoring (49924634) Snoring (R06.83) Active conf irmed Problem 765362520 Paresthesia of skin (R20.2) Active confirmed Problem Neck sprain (524993306) Strain of muscle, fascia and tendon at neck level, initial encounter (S16.1XXA) Active confirmed Problem Contusion of right elbow (68688248946639670 ) Contusion of right elbow, initial encounter (S50.01XA) Active confirmed Problem Chest pain (29159166) Chest pain (R07.9) Active confirmed Problem Fatigue (06541392) Fatigue (R53.83) Active conf irmed Problem Chronic obstructive pulmonary disease (26905056) Chronic obstructive pulmonary disease (J44.9) Active confirmed Problem Hypertension (42248402) Hypertension (I10) Active confirmed Problem Chronic obstructive pulmonary disease (75759214) Chronic obstructive pulmonary disease (COPD) (J44.9) Active confirmed Problem Anxiety (98822505) Anxiety (F41.9) Active confi rmed Problem Neck pain (40700677) Neck pain (M54.2) Active confirmed Problem Arthritis (4366073) Arthritis (M19.90) Active confirmed Problem Obstructive sleep apnea (75704826) Obstructive sleep apnea (G47.33) Active confirmed Problem Insomnia (392436530) Insomnia (G47.00) Active confirmed Problem Hiatal hernia (55177413) Hiatal hernia (K44.9) Active confirmed Problem Eczema (97070572) Eczema (L30.9) Active confirm ed Problem Migraine (86905244) Migraine (G43.909) Active confirmed Problem Pain in limb (89930779) Pain in joint, hand (M79.643) Active confirmed Problem Sinusitis (94430750) Sinusitis (J32.9) Active confirmed Problem Hot flashes (870895196) Hot flashes (N95.1) Active confirmed Problem Kidney stone (74243616) Kidney stones (N20.0) Active confirmed Problem Allergic rhinitis (09870157) Allergic rhinitis (J30.9) Active confirmed Problem Constipation (38996367) Constipation (K59.00) Active confirmed Problem Menorrhagia (210774919) Menorrhagia (N92.0) Active confirmed Problem Acute bronchitis (03035110) Acute bronchitis (J20.9) Active confirmed Problem Well adult (463150272) Well adult (Z00.00) Active confirmed Problem Hypoglycemia (727784347) Hypoglycemia (E16.2) Active confirmed Problem Mass of neck (954283908) Neck mass (R22.1) Active confirmed Problem Pre-surgery evaluation (294312400) Pre-op exam (Z01.818) Active confirmed Problem Seasonal allergic rhinitis (461612602) Seasonal allergic rhinitis (J30.2) Active confirmed Problem Meniere disease (53269357) Meniere disease (H81.09) Active confirmed Problem Near syncope (605439532) Near syncope (R55) Active confirmed Problem Contact dermatitis (68174641) Contact dermatitis (L25.9) Active confirmed Problem Gastroenteritis (19789982) Gastroenteritis (K52.9) Active confirmed Problem Iron deficiency anemia (14595220) Anemia, iron deficiency (D50.9) Active confirmed Problem Aphthous ulcer (934264371) Aphthous ulcer (K12.0) Active confirmed Problem 282228261 Bilateral edema of lower extremity (R60.0) Active confirmed Problem Methicillin resistant Staphylococcus aureus (978277719) MRSA (methicillin resistant Staphylococcus aureus) (A49.02) Active confirmed Problem Duodenitis (32333704) Duodenitis (K29.80) Active confirmed Problem Head contusion (S00.93XA) Active confirmed Problem Facial palsy (266430060) 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) Active confirmed Problem Viral exanthem (06891358) Viral exanthem (B09) Active confirmed Problem Panic attack (671092340) Panic attack (F41.0) Active confirmed Problem Increased cortisol level (615360684) Elevated cortisol level (E27.0) Active confirmed Problem Essential hypertension (69994604) Essential (primary) hypertension (I10) Active confirmed Problem Breakthrough bleeding (66357020) Breakthrough bleeding (N92.1) Active confirmed Problem Peripheral vertigo (40335986) Peripheral vertigo (H81.399) Active confirmed Problem Acute urinary tract infection (726703569) Acute UTI (N39.0) Active confirmed Problem Chronic obstructive airway disease (52476110) Chronic obstructive airway disease (J44.9) Active confirmed Problem Gastro-esophageal reflux disease (104493412) Gastro-esophageal reflux disease (K21.9) Active confirmed Problem Shoulder impingement syndrome (097986786) Shoulder impingement syndrome (M75.40) Active confirmed Problem Irregular intermenstrual bleeding (58539897) Irregular intermenstrual bleeding (N92.1) Active confirmed Problem Irritable bowel syndrome (56286603) Irritable bowel syndrome (IBS) (K58.9) Active confirmed Problem Elevated blood pressure (42696557) Elevated blood pressure (I10) Active confirmed Problem Ovarian cyst (56757441) Ovarian cyst (N83.209) Active confirmed Problem Infectious mononucleosis (819361303) Infectious mononucleosis without complication, infectious mononucleosis due to unspecified organism (B27.90) Active confirmed Problem 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 (433743554) Viral hepatitis, unspecified chronicity, unspecified viral hepatitis type (B19.9) Active confirmed Problem 628465334 Infection of alberto l bed of toe of right foot (L03.031) Active confirmed Problem Myalgia (42280289) Myalgia (M79.10) Active conf irmed Problem Disease caused by Severe acute respiratory syndrome coronavirus 2 (disorder) (563962664) COVID-19 virus infection (U07.1) Active confirmed Problem Generalized headache (285682434) Generalized headache (R51.9) Active confirmed Problem Low back pain (843709877) Low back pain, unspecified (M54.50) Active confirmed Vital Signs Blood pressure diastolic 82 mm Hg 08/03/2024 Height 64 in 09/07/2024 Blood pressure systolic 160 mm Hg 08/03/2024 Weight 158.2 lbs 08/24/2024 BMI 27.15 kg/m2 08/24/2024 Procedures Procedure Date Ordered Date Performed Result Body Sit e *CARDIO Holter Event Monitor 4 weeks 01/12/2024 N/A Encounters Encounter Location Date Provider Diagnosis [facility] [address] [place] [address] 09/19/2024 Prashant Porter Weight loss R63.4 an d Fatigue R53.83 [place] [address] [place] [address] 09/21/[address] [facility] [address] [place] [address] 09/27/[address] [facility] [address] [place] [address] 09/28/[address] [facility] [address] [place] [address] 08/27/[address] [facility] [address] [place] [address] 08/27/2024 Prashant Porter Essential (primary) hypertension I10 and Meniere disease H81.09 [place] [address] [place] [address] 09/03/[address] [facility] [address] [place] [address] 09/04/2024 Prashant Porter Elevated cortisol level R79.89 [place] [address] [place] [address] 09/04/[address] [facility] [address] [facility] [place] [address] 09/13/2024 Prashant Porter Elevated cortisol level E27.0 [facility] [address] [facility] [place] [address] 05/28/[address] [facility] [address] [facility] [place] [address] 05/31/[address] [facility] [address] [facility] [place] [address] 07/05/[address] [facility] [address] [facility] [place] [address] 07/06/2024 Prashant Porter Vertigo R42 and Headache R51.9 [facility] [address] [facility] [place] [address] 08/03/2024 Prashant Porter [facility] [address] [facility] [place] [address] 08/04/2024 Prashant Porter Hypertension I10 [facility] [address] [facility] [place] [address] 01/11/[address] [facility] [address] [facility] [place] [address] 01/27/2024 Prashant Porter Hypoglycemia E16.2 [facility] [address] [facility] [place] [address] 01/29/2024 Prashant Swany Urine frequency R35. 0 [facility] [address] [facility] [place] [address] 01/31/[address] [facility] [address] [facility] [place] [address] 02/27/[address] [facility] [address] [facility] [place] [address] 03/30/[address] [facility] [address] [facility] [place] [address] 12/20/[address] [facility] [address] [place] [address] 12/21/[address] [facility] [address] [facility] [place] [address] 12/23/2023 Prashant Hoy Acute UTI N39.0 [facility] [address] [facility] [place] [address] 12/24/[address] [facility] [address] [facility] [place] [place] [address] 12/28/[address] [facility] [address] [facility] [place] [address] 01/06/[address] [facility] [address] [facility] [place] [address] 12/08/2023 Prashant Hoy Burning with urinati on R30.0 [facility] [address] [facility] [place] [address] 12/08/[address] [facility] [address] [facility] [place] [address] 12/14/[address] [facility] [address] [facility] [place] [address] 12/14/[address] [facility] [address] [facility] [place] [address] 12/15/2023 Elmira Castro Urinary tract infection N39.0 [facility] [address] [facility] [place] [address] 12/15/2023 Prashant Benyy [facility] [address] [facility] [address] [place] [address] 11/19/[address] [facility] [address] [facility] [place] [address] 11/22/2023 Prashant Hoy Flank pain R10.9 [facility] [address] [facility] [place] [address] 11/23/2023 Prashant Hoy Kidney stones N20.0 [facility] [address] [facility] [place] [address] 11/25/[address] [facility] [address] [place] [address] 12/02/2023 Prashant Hoy Urinary retention R33.9 [facility] [address] [place] [address] 08/24/2024 Prashant Hoy Essential (primary) hypertension I10 and Dermatitis L30.9 [facility] [address] [place] [address] 12/14/2023 Elmira Gloria UTI (urinary tract infection) N39.0 [facility] [address] [place] [address] 04/20/2024 Prashant Hoy Neck mass R22.1 [facility] [address] [place] [address] 05/25/2024 Prashant Hoy Elevated blood pressure I10 and Acute UTI N39.0 [facility] [address] [place] [address] 12/21/2023 Prashant Hoy Essential (primary) hypertension I10 and Acute UTI N39.0 [facility] [address] [place] [address] 01/12/2024 Prashant Hoy Essential (primary) hypertension I10 and Palpitations R00.2 [facility] [address] [place] [address] 03/29/2024 Prashant Hoy Acute bronchitis, unspecified organism J20.9 [facility] [address] [place] [address] 08/03/2024 Prashant Hoy Hypertension I10 and Well adult Z00.00 [facility] [address] [place] [address] 10/27/2023 Prashant Hoy Well adult Z00.00 [facility] [address] [place] [address] 12/16/2023 Prashant Hoy Acute UTI N39.0 [facility] [address] [place] [address] 07/06/2024 Prashant Hoy Essential (primary) hypertension I10 and Head contusion S00.93XA [facility] [address] [place] [address] 09/04/2024 Prashant Porter Elevated cortisol level E27.0 [facility] [address] [place] [address] 09/07/2024 Prashant Porter Insomnia G47.00 Assessments Encounter [...] vaporizer to help keep the drainage moist. Secm-xau-ousztvx Nasal Saline may help the stuffy and runny nose. Use Ibuprofen and or Tylenol as needed for fever, chills, body aches or pain. Children 5 years old should not be given dhzq-edw-axomkoy cough and cold medications such as guaifenesin and dextromethorphan. If you're over age 5, you may try wsto-xrr-olzsrwm cold medications such as guaifenesin and dextromethorphan, [...] METABOLIC PANEL) 3 CMP (COMPLETE METABOLIC PANEL) CMP (COMPLETE METABOLIC PANEL) UA (URINALYSIS, COMPLETE) 12/08/2023 UA (URINALYSIS, COMPLETE) [...] 11/11/2022 CA 19-9 09/19/2024 CBC AUTO DIFF 12/25/2022 CBC AUTO DIFF 11/13/2022 CBC AUTO DIFF 11/11/2022 CEA 09/19/2024 CRP 12/25/2022 CULTURE URINE 01/29/2024 CULTURE URINE 12/23/2023 CULTURE URINE 05/25/2024 CULTURE URINE 12/21/2023 GI PANEL (PCR) 11/11/2022 GLYCOHEMOGLOBIN A1C 12/25/2022 [...] T3) 3 THYROID PANEL (T4/TSH/FREE T3) 5 THYROID PANEL (T4/TSH/FREE T3) 3 THYROID PANEL (T4/TSH/FREE T3) 5 URINALYSIS MICROSCOPIC 12/08/2023 *CARDIO Holter Event Monitor 4 weeks CMP (COMP MET NIXON) w/eGFR CKD-EPI 2024 CBC WITH DIFF 08/03/2024 CA 15-3 09/19/2024 Next Appt Details Provider Name:Prashant Vicente Porter, 10:30:00 AM, [address] [facility], [place], [address], Insurance Providers Payer Name Payer Address Payer Phone Subscriber Number Group Number Insured Name Patient Relationship to Insured Coverage Start Date Coverage End Date FRONTPATH [address] TITO ENGEL [id number] Yulia Dorsey Self - patient is the [...]
--- OUTSIDE RECORDS SUMMARY | 2024-10-05 07:42 | XMS_ITS | Encounter Summary ---
Author Organization [employer] s tem Address [id number] [address] [place] [address] Care Team Providers Care Business Center Manager Name Role Phone Estiven Porter MD Primary Care Provider [phone] Encounter Details Date Type Department Care Team (Late st Contact Info) Description 09/05/2024 Orders Only [facility] [address] [place] [phone] [place], [place] [address] Social History Tobacco Use Types Packs/Day Years [...] [facility] [address] [place] [address] Allyson Thomas MD [address] [facility] [place] [address] documented as of this encounter Procedures Procedure Name Priority Date/Time Associated Diagnosis Comments MULTIPLE LABS Routine 09/05/2024 1:53 PM EDT documented in this encounter Results * Multiple labs (09/05/2024 1:53 PM EDT) us Not In System Ref Prov [facility] Final Res ult documented in this encounter Visit Diagnoses Not on filedocumented in this encounter Care Teams Business Center Manager Relationship Specialty Start Date End Date Estiven Porter MD PCP - General Family Medicine 03/22/19 documented as of this encounter
--- OUTSIDE RECORDS SUMMARY | 2024-10-05 07:42 | XMS_ITS | Encounter Summary ---
Author Organization [facility] Address [address] [place] [address] Care Team Providers Care Naprapath Name Role Phone Estiven Porter MD Primary Care Provider [phone] Encounter Details Date Type Department Care Team (Late st Contact Info) Description 09/22/2022 Clinisync Result Encounter [facility] External Department Unsolicited Katie Rust, DO [address] [facility] [place] [address] Social History Tobacco Use Types [...] : DR KATIE RUST . Admission #: [id number] Family : Order #: [id number] CLICK HERE TO VIEW EXAM RADIOLOGY REPORT [...] LOCATION: The [facility] BREAST COMPOSITION: Almost entirely fatty. FINDINGS: DIAGNOSTIC [...] : DR KATIE RUST . Admission #: [id number] Family : Order #: [id number] CLICK HERE TO VIEW EXAM RADIOLOGY REPORT [...] LOCATION: The [facility] BREAST COMPOSITION: Almost entirely fatty. FINDINGS: DIAGNOSTIC [...] on filedocumented in this encounter Care Teams Naprapath Relationship Specialty Start Date End Date Estiven Porter MD PCP - General 09/13/22 documented as of this encounter
--- OUTSIDE RECORDS SUMMARY | 2024-10-05 07:42 | XMS_ITS | Encounter Summary ---
Author Organization [facility] Address [address] [place] [address] Care Team Providers Care Management Internship Name Role Phone Estiven Porter MD Primary Care Provider [phone] Encounter Details Date Type Department Care Team (Late st Contact Info) Description 01/07/2024 Clinisync Result Encounter [facility] External Department Unsolicited Katie Rust, DO [address] [facility] [place] [address] Social History Tobacco Use Types [...] EDT Narrative 01/07/2024 6:27 PM EDT The [address] [address] Electrocardiograph Report Signed Patient: YULIA DORSEY MR#: [id number] : 1965 Acct:[id number] Age/Sex: 58 / F ADM Date: 01/07/24 Loc: SURGOUT Attending Dr: Katie Rust D.O. Ordering Physician: Katie Rust D.O. Date of Service: 01/07/24 Procedure(s): ECG 12 lead Accession Number(s): [id number] cc: [facility] Test Date: 2024-01-07 Pat Name: YULIA DORSEY Department: Room: - Gender: Female Geomorphologist: : 1965 Requested By: KATIE RUST Order Number: [id number] Reading MD: VADIM GARCIA Measurements Intervals [place] Rate: 89 P: 73 KS: 162 QRS: -4 QRSD: 102 T: 70 QT: 384 QTc: 469 Interpretive Statements SINUS RHYTHM NONSPECIFIC ST T-WAVE ABNORMALITY Compared to ECG 07/19/2023 15:11:49 T-wave abnormality now present Electronically Signed On 01-07-2024 18:27:28 EDT by VADIM GARCIA Dictated By: Vadim Garcia D.O. Signed By: 01/07/24 1827 DD/ 0723 TD/TT: Environmental Monitoring Specialist: Procedure Note Radiology, Radiologist, MD - 01/07/2024 The [place] [id number] Electrocardiograph Report Signed Patient: YULIA DORSEY LMR#: [id number] : 1965Acct:[id number] Age/Sex: 58 / FADM Date: 01/07/24 Loc: SURGOUT Attending Dr: Katie Rust D.O. Ordering Physician: Katie Rust D.O. Date of Service: 01/07/24 Procedure(s): ECG 12 lead Accession Number(s): [id number] cc: [facility] [place] [facility] Test Date: 2024-01-07 Pat Name: YULIA DORSEY Department: Room: - Gender: Female Geomorphologist: : 1965 Requested By: KATIE RUST Order Number: [id number] Reading MD: VADIM GARCIA Measurements Intervals [place] Rate: 89 P: 73 [place]: 162 QRS: -4 QRSD: 102 T: 70 QT: 384 QTc: 469 Interpretive Statements SINUS RHYTHM NONSPECIFIC ST T-WAVE ABNORMALITY Compared to ECG 07/19/2023 15:11:49 T-wave abnormality now present Electronically Signed On 01-07-2024 18:27:28 EDT by VADIM GARCIA Dictated By: Vadim Garcia D.O. Signed By:01/07/24 1827 DD/ 0723 TD/TT: Environmental Monitoring Specialist: us Katie Rust DO [facility] Final Result documented in this encounter Visit Diagnoses Not on filedocumented in this encounter Care Teams Management Internship Relationship Specialty Start Date End Date Estiven Porter MD PCP - General 09/13/22 documented as of this encounter
--- OUTSIDE RECORDS SUMMARY | 2024-10-05 07:42 | XMS_ITS | Encounter Summary ---
Author Organization [employer] Address [id number] [address] [place] [address] Care Team Providers Care Warehouse Loader Name Role Phone Estiven Porter MD Primary [...] [facility] [address] [place] [phone] Allyson Thomas MD [address] [facility] [address] [place] [address] documented as of this encounter Visit Diagnoses Not on filedocumented in this encounter Care Teams Warehouse Loader Relationship Specialty Start Date End Date Estiven Potrer MD PCP - General Family Medicine 03/22/19 documented as of this encounter
--- OUTSIDE RECORDS SUMMARY | 2024-10-05 07:42 | XMS_ITS | Clinical Summary ---
Author Organization [facility] Address [address] [place] [address] Care Team Providers Care System Developer Associate Manager Name Role Phone Estiven Porter MD Primary Care Provider [phone] Allergies Active Allergy Reactions Criticality Noted Date [...] depressive disorder, single episode, moder ate 03/28/2019 Menopausal symptoms 11/17/2016 Psychological factors affecting [...] Not on file Insurance FRONTPATH Care Teams System Developer Associate Manager Relationship Specialty Start Date End Date Estiven Porter MD PCP - General 09/13/22
--- OUTSIDE RECORDS SUMMARY | 2024-10-05 07:42 | XMS_ITS | Encounter Summary ---
Author Organization [facility] Address [address] [place] [address] Care Team Providers Care Senior Patient Account Representative Name Role Phone Estiven Porter MD Primary Care Provider [phone] Encounter Details Date Type Department Care Team (Late st Contact Info) Description 09/15/2022 Orders Only [facility] [address] [facility] [place] [address] Deepti Palacios LPN Social History [...] on filedocumented in this encounter Care Teams Senior Patient Account Representative Relationship Specialty Start Date End Date Estiven Porter MD PCP - General 09/13/22 documented as of this encounter
--- OUTSIDE RECORDS SUMMARY | 2024-10-05 07:42 | XMS_ITS | Clinical Summary ---
Author Organization [facility] Address [address] [place] [address] Care Team Providers Care Professor Of Astronomy Name Role Phone Estiven Porter MD Primary Care Provider [phone] Allergies Active Allergy Reactions Criticality Noted Date [...] Ended) 2024 Insurance [employer] Care Teams Professor Of Astronomy Relationship Specialty Start Date End Date Estiven Porter MD PCP - General Family Medicine 02/25/16
== END 2024-10-05 07:38 | disposition home or self-care (01) ==
LOC: LAB 07:38
PROVIDERS: PCP Family Medicine; Visit Provider Family Medicine
DX: E27.0 Other adrenocortical overactivity (principal)
CPT/HCPCS: 36415; 82533

== ENCOUNTER 2024-10-24 12:29 | Outpatient (OUT) | payer OTHER, SELFPAY ==
--- OUTSIDE RECORDS SUMMARY | 2024-10-24 12:32 | XMS_ITS | Clinical Summary ---
Author Organization [employer] [facility] tem Address [id number] [address] [place] [address] Care Team Providers Care Customer Service Assistant Name Role Phone Estiven Porter MD [...] organization. Date Type Department Care Team Description 10/18/2024 Travel 10/10/2024 Travel 10/05/2024 Travel 09/26/2024 Travel 09/15/2024 Travel 09/05/2024 Orders Only [facility] [address] [facility] [address] [place] [address] Ref Prov, Not In System 09/05/2024 Abstract [facility] [address] [place] [address] External, Scanning Provider 08/29/2024 Travel 08/17/2024 Travel [...] got money to buy more. Never True 10/19/2024 Within the past 12 months th e food we bought just didn't last and we didn't have money to get more. Never True 10/19/2024 Purpose - Life Answer Date Recorded Purpose [...] Office Visit [facility] [address] [place] [address] Allyson Thomas MD [address] [place] [address] Health Maintenance Due Date Last Done Comments [...] EDT) us Not In System Ref Prov [facility] Final Res ult from Last 3 Months Insurance [employer] Care Teams Customer Service Assistant Relationship Specialty Start Date End Date Estiven Porter MD PCP - General Family Medicine 03/22/19
--- OUTSIDE RECORDS SUMMARY | 2024-10-24 12:32 | XMS_ITS | Encounter Summary ---
Author Organization [facility] Address [address] [place] [address] Care Team Providers Care Trailer Park Manager Name Role Phone Estiven Porter MD Primary Care Provider [phone] Encounter Details Date Type Department Care Team (Late st Contact Info) Description 01/07/2024 Clinisync Result Encounter [facility] External Department Unsolicited Katie Rust, DO [address] [facility] [place] [address] Social History Tobacco Use Types Packs/Day Years [...] Care Team (Late st Contact Info) Description 11/21/2024 9:20 AM EDT Office Visit [facility] [address] [place] [address] Gala Flores MD [address] [place] [address] documented as of this encounter Procedures Procedure Name Priority Date/Time Associated Diagnosis Comments ECG 12-LEAD 01/07/2024 7:23 AM EDT documented in this encounter Results * ECG 12-LEAD (01/07/2024 7:23 AM EDT) Anatomical Region Laterality Modality Other 01/07/2024 7:23 AM EDT Narrative 01/07/2024 6:27 [place] [address] Electrocardiograph Report Signed Patient: YULIA DORSEY MR#: [id number] : 1965 Acct:[id number] Age/Sex: 58 / F ADM Date: 01/07/24 Loc: SURGOUT Attending Dr: Katie Rust D.O. Ordering Physician: Katie Rust D.O. Date of Service: 01/07/24 Procedure(s): ECG 12 lead Accession Number(s): [id number] cc: The [facility] Test Date: 2024-01-07 Pat Name: YULIA DORSEY Department: Room: - Gender: Female Shoe Associate: : 1965 Requested By: KATIE RUST Order Number: [id number] Reading MD: VADIM GARCIA Measurements Intervals [place] Rate: 89 P: 73 IN: 162 QRS: -4 QRSD: 102 T: 70 QT: 384 QTc: 469 Interpretive Statements SINUS RHYTHM NONSPECIFIC ST T-WAVE ABNORMALITY Compared to ECG 07/19/2023 15:11:49 T-wave abnormality now present Electronically Signed On 01-07-2024 18:27:28 EDT by VADIM GARCIA Dictated By: Vadim Garcia D.O. Signed By: 01/07/24 1827 DD/ 0723 TD/TT: Associate Material Handler: Procedure Note Radiology, Radiologist, MD - 01/07/2024 The [place] [id number] Electrocardiograph Report Signed Patient: YULIA DORSEY LMR#: [id number] : 1965Acct:[id number] Age/Sex: 58 / FADM Date: 01/07/24 Loc: SURGOUT Attending Dr: Katie Rust D.O. Ordering Physician: Katie Rust D.O. Date of Service: 01/07/24 Procedure(s): ECG 12 lead Accession Number(s): [id number] cc: [facility] Test Date: 2024-01-07 Pat Name: YULIA DORSEY Department: Room: - Gender: Female Shoe Associate: : 1965 Requested By: KATIE RUST Order Number: [id number] Reading MD: VADIM GARCIA Measurements Intervals [place] Rate: 89 P: 73 IN: 162 QRS: -4 QRSD: 102 T: 70 QT: 384 QTc: 469 Interpretive Statements SINUS RHYTHM NONSPECIFIC ST T-WAVE ABNORMALITY Compared to ECG 07/19/2023 15:11:49 T-wave abnormality now present Electronically Signed On 01-07-2024 18:27:28 EDT by VADIM GARCIA Dictated By: Vadim Garcia D.O. Signed By:01/07/24 1827 DD/ 0723 TD/TT: Associate Material Handler: us Katie Rust DO [facility] Final Result documented in this encounter Visit Diagnoses Not on filedocumented in this encounter Care Teams Trailer Park Manager Relationship Specialty Start Date End Date Estiven Porter MD PCP - General 09/13/22 documented as of this encounter
--- OUTSIDE RECORDS SUMMARY | 2024-10-24 12:32 | XMS_ITS | Encounter Summary ---
Author Organization [facility] Address [address] [place] [address] Care Team Providers Care Electrode Cleaner Name Role Phone Estiven Porter MD Primary Care Provider [phone] Encounter Details Date Type Department Care Team (Late st Contact Info) Description 07/13/2023 Clinisync Result Encounter [facility] External Department Unsolicited Katie Rust, DO [address] [facility] [place] [address] Social History Tobacco Use Types Packs/Day Years [...] Visit [facility] [address] [place] [address] Gala Flores MD [address] [place] [address] documented as of this encounter Procedures Procedure Name Priority Date/Time Associated Diagnosis Comments US PELVIS W/ TRANSVAGINAL 07/13/2023 7:18 AM EDT documented in this encounter Results * US PELVIS W/ TRANSVAGINAL (07/13/2023 7:18 AM EDT) Anatomical Region Laterality Modality Other 07/13/2023 7:18 AM EDT Narrative 07/13/2023 7:20 [place] [address] Ultrasound Report Signed Patient: YULIA DORSEY MR#: [id number] : 1965 Acct:[id number] Age/Sex: 57 / F ADM Date: 07/12/23 Loc: US Attending Dr: Katie Rust D.O. Ordering Physician: Katie Rust D.O. Date of Service: 07/12/23 Procedure(s): US pelvis w/ transvaginal Accession Number(s): [id number] cc: Katie Rust D.O.; Estiven Porter M.D. [place] [id number] Patient Name: YULIA DORSEY MRN: [id number] date: 1965 Sex: F Assigned Patient Location: US Current Patient Location: Accession/Order Number: [id number] Exam Date: 07/12/2023 16:50 Report Date: 07/13/2023 [...] Dictated By: Ellyn Alvarez M.D. Signed By: 07/13/23719 DD/ 7 TD/TT: Storage Engineer: Procedure Note Radiology, Radiologist, MD - 07/13/2023 [place] [address] Ultrasound Report Signed Patient: YULIA DORSEY LMR#: [id number] : 1965Acct:[id number] Age/Sex: 57 / FADM Date: 07/12/23 Loc: US Attending Dr: Katie Rust D.O. Ordering Physician: Katie Rust D.O. Date of Service: 07/12/23 Procedure(s): US pelvis w/ transvaginal Accession Number(s): [id number] cc: Katie Rust D.O.; Estiven Porter M.D. The [place] [id number] Patient Name: YULIA DORSEY MRN: [id number] date: 1965 Sex: F Assigned Patient Location: Current Patient Location: Accession/Order Number: [id number] Exam Date: 07/12/2023 16:50 Report Date: 07/13/2023 [...] Alvarez M.D. Signed By:07/13/23719 DD/ 7 TD/TT: Storage Engineer: us Katie Yocasta DO [facility] Final Result documented in this encounter Visit Diagnoses Not on filedocumented in this encounter Care Teams Electrode Cleaner Relationship Specialty Start Date End Date Estiven Porter MD PCP - General 09/13/22 documented as of this encounter
--- OUTSIDE RECORDS SUMMARY | 2024-10-24 12:32 | XMS_ITS | Clinical Summary ---
Author Organization [facility] Address [address] [place] [phone] Care Team Providers Care Ticket Dispenser Changer Name Role Phone Estiven Porter MD Primary Care Provider [phone] Allergies Active Allergy Reactions Criticality Noted Date [...] VACCINE (1 of 2) 08/19/2015 COVID-19 VACCINE (1 - ) 12/26/2023 INFLUENZA VACCINE (#1) 2024 Insurance [employer] GENERIC Care Teams Ticket Dispenser Changer Relationship Specialty Start Date End Date Estiven Porter MD PCP - General Family Medicine 02/25/16
--- OUTSIDE RECORDS SUMMARY | 2024-10-24 12:32 | XMS_ITS | Encounter Summary ---
Author Organization [facility] Address [address] [place] [address] Care Team Providers Care Director Of Valuation Name Role Phone Estiven Porter MD Primary Care Provider [phone] Encounter Details Date Type Department Care Team (Late st Contact Info) Description 09/22/2022 Clinisync Result Encounter [facility]OM[facility] External Department Unsolicited Katie Rust, DO [address] [facility] [address] [place], [place] [id number] Social History Tobacco Use Types Packs/Day Years [...] AM EDT Office Visit [facility] [address] [place] [address] Gala Flores MD [address] [place] [address] documented as of this encounter Procedures Procedure Name Priority Date/Time Associated Diagnosis Comments MG MAMM DX 3D RT CAD 09/22/2022 2:25 PM EDT documented in this encounter Results * MG MAMM DX 3D RT CAD (09/22/2022 2:25 PM EDT) Anatomical Region Laterality Modality Other 09/22/2022 2:25 PM EDT Narrative 09/22/2022 2:25 PM EDT Patient: YULIA DORSEY Exam Date: 09/22/2022 : 1965 Gender:F Ordering : DR KATIE RUST . Admission #: [id number] Family : Order #: [id number] CLICK HERE TO VIEW EXAM RADIOLOGY REPORT [...] cancer at age 40. LOCATION: The [facility] BREAST COMPOSITION: Almost entirely fatty. [...] Radiology, Radiologist, MD - 09/22/2022 Patient: YULIA DORSEY Exam Date: 09/22/2022 : 1965 Gender:F Ordering : DR KATIE YOCASTA . Admission #: [id number] Family : Order #: [id number] CLICK HERE TO VIEW EXAM RADIOLOGY REPORT [...] cancer at age 40. LOCATION: The [facility] BREAST COMPOSITION: Almost entirely fatty. [...] Eyal Castaneda MD on 09/22/2022 at 15:03 Katie Yocasta DO [facility] Final Result documented in this encounter Visit Diagnoses Not on filedocumented in this encounter Care Teams Director Of Valuation Relationship Specialty Start Date End Date Estiven Porter MD PCP - General 09/13/22 documented as of this encounter
--- OUTSIDE RECORDS SUMMARY | 2024-10-24 12:32 | XMS_ITS | Clinical Summary ---
Author Organization [facility] Address [address] [place] [address] Care Team Providers Care Application Integrator Name Role Phone Estiven Porter MD Primary Care Provider [phone] Allergies Active Allergy Reactions Criticality Noted Date [...] 07/22/2022 12:00 PM EDT Plan of Treatment Upcoming Encounters Date Type Department Care Team (Late st Contact Info) Description 11/21/2024 9:20 AM EDT Office Visit [facility] [address] [place] [phone] Gala Flores MD [address], [address] [place] [address] Insurance [employer] Care Teams Application Integrator Relationship Specialty Start Date End Date Estiven Porter MD PCP - General 09/13/22
--- OUTSIDE RECORDS SUMMARY | 2024-10-24 12:32 | XMS_ITS | Encounter Summary ---
Author Organization [facility] Address [address] [place] [address] Care Team Providers Care Look Out Tower Fire Watcher Name Role Phone Estiven White MD Primary Care Provider [phone] Encounter Details Date Type Department Care Team (Late st Contact Info) Description 07/19/2023 Clinisync Result Encounter [facility] External Department Unsolicited Katie Rust, DO [address] [facility] [place] [address] Social History Tobacco Use Types Packs/Day Years [...] Visit [facility] [address] [place] [address] Gala Flores MD [address] [place] [address] documented as of this encounter Procedures Procedure Name Priority Date/Time Associated Diagnosis Comments ECG 12-LEAD 07/19/2023 3:11 PM EDT documented in this encounter Results * ECG 12-LEAD (07/19/2023 3:11 PM EDT) Anatomical Region Laterality Modality Other 07/19/2023 3:11 PM EDT Narrative 07/21/2023 9:13 [place] [address] Electrocardiograph Report Signed Patient: YULIA DORSEY MR#: [id number] : 1965 Acct:[id number] Age/Sex: 57 / F ADM Date: 07/19/23 Loc: PST Attending Dr: Ktaie Rust D.O. Ordering Physician: Katie Rust D.O. Date of Service: 07/19/23 Procedure(s): ECG 12 lead Accession Number(s): [id number] cc: The [facility] Test Date: 2023-07-19 Pat Name: YULIA DORSEY Department: Room: - Gender: Female Washer Operator: : 1965 Requested By: KATIE RUST Order Number: [id number] Reading MD: ESTIVEN WHITE Measurements Intervals [place] Rate: 70 P: 63 MN: 156 QRS: 5 QRSD: 99 T: 60 QT: 408 QTc: 440 Interpretive Statements SINUS RHYTHM POSSIBLE RIGHT VENTRICULAR CONDUCTION DELAY [RSR (QR) IN V1/V2] Compared to ECG 05/16/2018 10:49:06 Right bundle-branch block no longer present Electronically Signed On 07-21-2023 9:13:13 EDT by ESTIVEN WHITE Dictated By: Estiven White M.D. Signed By: 07/21/23 0913 DD/ 1511 TD/TT: Venue Attendant: Procedure Note Radiology, Radiologist, - 07/21/[address] [address] Electrocardiograph Report Signed Patient: YULIA DORSEY LMR#: [id number] : 1965Acct:[id number] Age/Sex: 57 / FADM Date: 07/19/23 Loc: PST Attending Dr: Katie Rust D.O. Ordering Physician: Katie Rust D.O. Date of Service: 07/19/23 Procedure(s): ECG 12 lead Accession Number(s): [id number] cc: [facility] Test Date: 2023-07-19 Pat Name: YULIA DORSEY Department: Room: - Gender: Female Washer Operator: : 1965 Requested By: KATIE RUST Order Number: [id number] Reading MD: ESTIVEN WHITE Measurements Intervals [place] Rate: 70 P: 63 MN: 156 QRS: 5 QRSD: 99 T: 60 QT: 408 QTc: 440 Interpretive Statements SINUS RHYTHM POSSIBLE RIGHT VENTRICULAR CONDUCTION DELAY [RSR (QR) IN V1/V2] Compared to ECG 05/16/2018 10:49:06 Right bundle-branch block no longer present Electronically Signed On 07-21-2023 9:13:13 EDT by ESTIVEN WHITE Dictated By: Estiven White M.D. Signed By:07/21/23 0913 DD/ 1511 TD/TT: Venue Attendant: us Katie Rust DO [facility] Final Result documented in this encounter Visit Diagnoses Not on filedocumented in this encounter Care Teams Look Out Tower Fire Watcher Relationship Specialty Start Date End Date Estiven White MD PCP - General 09/13/22 documented as of this encounter
--- OUTSIDE RECORDS SUMMARY | 2024-10-24 12:32 | XMS_ITS | Encounter Summary ---
Author Organization [employer] Address [id number] [address] [place] [address] Care Team Providers Care Gasket Former Name Role Phone Estiven Porter MD Primary Care Provider [phone] Encounter Details Date Type Department Care Team (Late st Contact Info) Description 09/05/2024 Orders Only [facility] [address] [place] [phone] Ref Prov, [place] [address] Social History Tobacco Use Types Packs/Day Years [...] [facility] [address] [place] [address] Allyson Thomas MD [address] [facility] [place] [address] documented as of this encounter Procedures Procedure Name Priority Date/Time Associated Diagnosis Comments MULTIPLE LABS Routine 09/05/2024 1:53 PM EDT documented in this encounter Results * Multiple labs (09/05/2024 1:53 PM EDT) us Not In System Ref Prov [facility] Final Res ult documented in this encounter Visit Diagnoses Not on filedocumented in this encounter Care Teams Gasket Former Relationship Specialty Start Date End Date Estiven Porter MD PCP - General Family Medicine 03/22/19 documented as of this encounter
--- OUTSIDE RECORDS SUMMARY | 2024-10-24 12:32 | XMS_ITS | Encounter Summary ---
Author Organization [employer] Address [id number] [address] [place] [address] Care Team Providers Care Payment Collector Name Role Phone Estvien Porter MD Primary Care Provider [phone] Encounter Details Date Type Department Care Team (Latest Contact Info) Description 10/18/2024 Travel Social History Tobacco Use Types Packs/Day [...] [facility] [address] [place] [address] Allyson Thomas MD [address] [facility] [address] [place] [address] documented as of this encounter Visit Diagnoses Not on filedocumented in this encounter Care Teams Payment Collector Relationship Specialty Start Date End Date Estiven Porter MD PCP - General Family Medicine 03/22/19 documented as of this encounter
--- OUTSIDE RECORDS SUMMARY | 2024-10-24 12:32 | XMS_ITS | Encounter Summary ---
Author Organization [employer] Address [facility][id number] [address] [place] [address] Care Team Providers Care Stick Inserter Name Role Phone Estiven Porter MD Primary Care Provider [phone] Encounter Details Date Type Department Care Team (Latest Contact Info) Description 10/10/2024 Travel Social History Tobacco Use Types Packs/Day Years Used Date Smoking Tobacco: Never Smokeless Tobacco: Never Childcare Answer Date Recorded Childcare Unknown 10/05/2018 Employment Answer Date Recorded Employment Unknown 10/05/2018 Hunger Screening Answer Date Recorded Within the past 12 months we worried whether our food would run out before we got money to buy more. Never True 10/11/2024 Within the past 12 months th e food we bought just didn't last and we didn't have money to get more. Never True 10/11/2024 Purpose - Life Answer Date Recorded Purpose [...] [facility] [address] [place] [phone] Allyson Thomas MD [address] [facility] [address] [place] [address] documented as of this encounter Visit Diagnoses Not on filedocumented in this encounter Care Teams Stick Inserter Relationship Specialty Start Date End Date Estiven Porter MD PCP - General Family Medicine 03/22/19 documented as of this encounter
--- OUTSIDE RECORDS SUMMARY | 2024-10-24 12:32 | XMS_ITS | Encounter Summary ---
Author Organization [facility] Address [address] [place] [address] Care Team Providers Care Lsw Name Role Phone Estiven Porter MD Primary Care Provider [phone] Encounter Details Date Type Department Care Team (Late st Contact Info) Description 09/22/2022 Clinisync Result Encounter [facility] External Department Unsolicited Katie Rust, DO [address] [facility] [address] [place], [place] [phone] Social History Tobacco Use Types Packs/Day Years [...] AM EDT Office Visit [facility] [address] [place] [address] Gala Flores MD [address], [address] [place] [address] documented as of this encounter Procedures Procedure [...] : DR KATIE RUST . Admission #: [id number] Family : Order #: [id number] CLICK HERE TO VIEW EXAM RADIOLOGY REPORT [...] cancer at age 40. LOCATION: The [facility] BREAST COMPOSITION: Almost entirely fatty. [...] 09/22/2022 at 15:03 Procedure Note Radiology, Radiologist, - 09/25/2022 Patient: YULIA DORSEY Exam Date: 09/22/2022 : 1965 Gender:F Ordering : DR KATIE RUST . Admission #: [id number] Family : Order #: [id number] CLICK HERE TO VIEW EXAM RADIOLOGY REPORT [...] cancer at age 40. LOCATION: The [facility] BREAST COMPOSITION: Almost entirely fatty. [...] MD on 09/22/2022 at 15:03 us Katie Rust DO [facility] US PROCEDURES Final Result documented in this encounter Visit Diagnoses Not on filedocumented in this encounter Care Teams Lsw Relationship Specialty Start Date End Date Estiven Porter MD PCP - General 09/13/22 documented as of this encounter
--- OUTSIDE RECORDS SUMMARY | 2024-10-24 12:32 | XMS_ITS | Encounter Summary ---
Author Organization [facility] Address [address] [place] [address] Care Team Providers Care Placement Coordinator Name Role Phone Etsiven Porter MD Primary Care Provider [phone] Encounter Details Date Type Department Care Team (Late Contact Info) Description 09/15/2022 Orders Only [facility] [address] [place] [address] [place] [address] Deepti Palacios LPN Social History Tobacco [...] Visit [facility] [address] [place] [phone] Gala Flores MD [address] [place] [address] documented as of this encounter Visit Diagnoses Not on filedocumented in this encounter Care Teams Placement Coordinator Relationship Specialty Start Date End Date Estiven Porter MD PCP - General 09/13/22 documented as of this encounter
--- NOTE | 2024-10-24 12:33 | XR_ITS ---
The [place] [id number] Patient Name: YULIA CASTANO MRN: [id number] date: 1965 Sex: F Assigned Patient Location: [facility] Current Patient Location: [facility] Accession/Order Number: [id number] Exam Date: 10/24/2024 13:13 Report Date: 10/24/2024 13:13 At the request of: JOHN WHITE MD Procedure: XR wrist LT min 3V LEFT WRIST - 2 views CLINICAL HISTORY: Acute left wrist pain COMPARISON: Left wrist 09/03/2018 FINDINGS: No focal soft tissue abnormality. No acute bony process is seen. Bones are grossly demineralized. Mild degenerative changes involving the CMC joint of the thumb similar to the prior study. XR/XR wrist LT min 3V IMPRESSION: NO ACUTE BONY PROCESS. Impression dictated by: Boni Cruz Jr., D.O. 10/24/2024 1:13 PM Dictation Location: [place] [address] Electronically authenticated by: [id number] Y Date: 10/24/2024 13:13
== END 2024-10-24 12:30 | disposition home or self-care (01) ==
PROVIDERS: PCP Family Medicine; Visit Provider Family Medicine
DX: M25.532 Pain in left wrist (principal)
CPT/HCPCS: 73110

== ENCOUNTER 2024-12-04 07:28 | Outpatient (OUT) | payer OTHER, SELFPAY ==
--- OUTSIDE RECORDS SUMMARY | 2024-10-24 07:30 | XMS_ITS ---
Author Organization [facility] [place] Address [address] [place] [address] Care Team Providers Care Sausage Cutter Name Role Phone Prashant White Primary Care Provider Allergies Allergen (clinical drug [...] Active Results Component Value Reference Range Notes XR wrist LT min 3V Reviewed date:10/24/2024 07:09:57 PM Interpretation: Performing Lab: Notes/Report: Source Facility: [place] [address] [place] [address] XRay Report Signed Patient: YULIA DORSEY MR#: [id number] : 1965 Acct:[id number] Age/Sex: 59 / F ADM Date: 10/24/24 Loc: RAD Attending Dr: John White M.D. Ordering Physician: John White M.D. Date of Service: 10/24/24 Procedure(s): XR wrist LT min 3V Accession Number(s): [id number] cc: John White M.D. [place] [id number] Patient Name: YULIA DORSEY MRN: [id number] date: 1965 Sex: F Assigned Patient Location: RAD Current Patient Location: RAD Accession/Order Number: [id number] Exam Date: 10/24/2024 13:13 Report Date: 10/24/2024 13:13 At the request of: JOHN WHITE MD Procedure: XR wrist LT min 3V LEFT WRIST - 2 views CLINICAL HISTORY: Acute left wrist pain COMPARISON: Left wrist 09/03/2018 FINDINGS: No focal soft tissue abnormality. No acute bony process is seen. Bones are grossly demineralized. Mild degenerative changes involving the CMC joint of the thumb similar to the prior study. XR/XR wrist LT min 3V IMPRESSION: NO ACUTE BONY PROCESS. Impression dictated by: Boni Cruz Jr., D.O. 10/24/2024 1:13 PM Dictation Location: [place] [address] Electronically authenticated by: [id number] Y Date: 10/24/2024 13:13 Dictated By: Bnoi Cruz M.D. Signed By: 10/24/24 1316 DD/ 1313 TD/TT: Heel Cover Splitter: [place] [address] XRay Report Signed Patient: YULIA DORSEY MR#: [id number] : 1965 Acct:[id number] Age/Sex: 59 / F ADM Date: 10/24/24 Loc: [facility] Attending Dr: John White M.D. Ordering Physician: John White M.D. Date of Service: 10/24/24 Procedure(s): XR wri st LT min 3V Accession Number(s): [id number] cc: John White M.D. [address] [address] Patient Name: YULIA DORSEY MRN: [id number] date: 1965 Sex: F Assigned Patient Location: RAD Current Patient Location: RAD Accession/Order Numb er: [id number] Exam Date: 10/24/2024 13:13 Report Date: 10/24/2024 13:13 At the request of: JOHN WHITE MD Procedure: XR wrist LT min 3V LEFT WRIST - 2 views CLINICAL HISTORY: Ac teodoro left wrist pain COMPARISON: Left wri st 09/03/2018 FINDINGS: No focal soft tissue abnormality. No acute bony process is seen. Bones are grossly demineralize d. Mild degenerative changes involving the CMC joint of the thumb similar to the prior study. X R/XR wrist LT min 3V IMPRESSION: NO ACUTE BONY PROCESS. Impression dictated by: Boni Cruz Jr., D.O. 10/24/2024 1:13 PM Dictation Location: [place] [address] Electronically authe nticated by: [id number] Y Date: 10/24/2024 13:13 Dictated By: Boni Guajardo i, M.D. Signed By: 10/24/24 1316 DD/ 131 TD/TT: Heel Cover Splitter: Reason For Referral Diagnosis 1 Lip mass (K13.0) Referral Organization [facility] Referring Provider First Name Prashant Referring Provider Last Name German Referring Provider Speciality [facility] jaida Referred Provider Felice Riley Referred Provider Specialty Plastic and Reconstructive Surgery Referral Priority Routine REASON FOR VISIT Left Wrist Injury, Didn't want BP checked right now, Spot on lip Medications Medication SIG (Take, Route, Frequency, Duration) Notes Start Date End Date Status Ondansetron 4 MG 1 tablet on the tong ue and allow to dissolve Orally qid for 5 days 07/05/2024 Active L-Theanine Active Meclizine HCl 25 MG 1 tablet as needed O rally every 12 hrs for 30 days PRN Active Meloxicam 7.5 MG 1 tablet Orally Once a day for 30 days 04/20/2024 Active Mirabegron ER 25 MG 1 tablet Orally Once a day for 30 day(s) 01/31/2024 Active ALPRAZolam 0.25 MG 1 tablet Orally Twic e a day for 10 days PRN 09/04/2024 Active Cranberry Active hydrOXYzine HCl 10 MG/5ML 5 - 10 ml Orally every 6 hrs for 30 days As needed 08/04/2024 Active hydrOXYzine HCl 25 MG 1 tablet as needed Orally qid for 10 days 08/03/2024 Active Hyoscyamine Sulfate 0.125 MG 1-2 tabs SL SL every 4 hrs PRN abd pain 07/05/2024 Active Social History Tobacco Use: Social History Observation Description Date Details (start date - stop date) Never Smoker NA - NA Tobacco Use/Smoking Question Answer Notes Patient is a nonsmoker Problems Problem Type SNOMED Code ICD Code Onset Dates Problem Status W/U Status Risk Notes Problem Wrist pain, acute, left (M25.532) Active confirmed Vital Signs Height 64 in 10/24/2024 Weight 155.6 lbs 10/24/2024 BMI 26.71 kg/m2 10/24/2024 Encounters Encounter Location Date Provider Diagnosis [facility] [address] [place] [address] 10/24/2024 Prashant White Wrist pain, acute, left M25.532 and Lip mass K13.0 Assessments Encounter Date Diagnosis (ICD Code) Assessment Notes Treatment Notes Treatment Clinical Notes Section Notes 10/24/2024 Wrist pain, acute, left (ICD-10 - M25.532) 10/24/2024 Lip mass (ICD-10 - K13.0) Plan Of Treatment Referrals Referral Date Details 10/24/2024 10/24/2024[facility] Next Appt Details Provider Name:Prashant White, 03:45:00 PM, [address] [place], [address], Progress Notes * Quang DORSEYOB:1965 ( 59 yo F)Acc No.[id number]:10/24/2024 Progress Note Patient: Gen DANIELLErenee Provider: Romina White ([facility])MD :1965 A ge:59 Y S ex:Female Date:10/24/2024 Address:[facility] [place], [id number] Check In:11:12 AM ESTCheck O ut:12:19 PM EST Subjective: * Chief Complaints: * L eft Wrist InjuryDidn't want BP checked right nowSpot on lip * HPI: G eneral: doing emdr therapy 0 QO Week Left wrist - slapped at a bug - sawe;lled instandly lip iwght cap hemangioma -. * Active Problem List J44.9 Chronic obstructive [...] Modified On:06/15/2023U Status:confirmed L25.9 Contact dermatitis Modified On:07/05/2023 Status:confirmed Z01.818 Pre-op exam Modified On:07/28/2023 Status:confirmed M79.10 Myalgia Modified On:09/13/2023U Status:confirmed N20.0 Kidney stones Modified On:11/25/2023U Status:confirmed N39.0 Acute UTI Modified On:12/16/2023U Status:confirmed E16.2 Hypoglycemia Modified On:01/27/2024U Status:confirmed R22.1 Neck mass Modified On:04/20/2024U Status:confirmed S00.93XA Head contusion Modified On:07/06/2024U Status:confirmed I10 Hypertension Modified On:08/03/2024U Status:confirmed E27.0 Elevated cortisol le michelle Modified On:09/04/2024/U Status:confirmed G47.00 Insomnia Modified On:09/07/2024/U Status:confirmed M25.532 Wrist pain, acute, l eft Modified On:10/24/2024/U Status:confirmed * Medical History: * Surgical History: [...] , Notes to Pharmacist: PRNCranberry hydrOXYzine HCl 10 MG/5ML Syrup 5 - 10 ml Orally every 6 hrs As neededhydrOXYzine HCl 25 MG Tablet 1 tablet as needed Orally qid Hyoscyamine Sulfate 0.125 MG Tablet Sublingual 1-2 [...] to Pharmacist: PRNTaking Cranberry Taking hydrOXYzine HCl 10 MG/5ML Syrup 5 - 10 ml Orally every 6 hrs As neededTaking hydrOXYzine HCl 25 MG Tablet 1 tablet as needed Orally qid Taking Hyoscyamine Sulfate 0.125 MG Tablet Sublingual 1-2 tabs SL SL every 4 hrs PRN abd pain Taking L- Theanine Taking Meclizine HCl 25 MG Tablet 1 [...] - Side Effectsno[Allergies Verified] Objective: * Vitals: W t:155.6lbs, Ht: 64 in, BMI:26.71Index, Ht-cm: 162.56 cm, Wt-k.58 kg. * Examination: A bdomen Exam:: L eft wristhe mod brusing - tendenrnees in snuff box. Assessment: * Assessment: 1. W rist pain, acute, left - M25.532 (Primary) 2 . L ip mass - K13.0 ? Plan: * Treatment: 2. L ip mass Referral To:[facility]ice [facility] Plastic and Reconstructive Surgery Reason: * Procedure Codes: * Preventive Medicine: Screenings/Counseling: B SC ACTION PLAN Above Normal BMI Follow-up D ietary management education, guidance, and counseling * * Sign off status: Completed Visit Status: C HK (Check Out) true * Provider: Romina White ([facility])MD Date: 0 10/24/2024 Generated for Joaquin verdin/Hortensia/Sarahitting on: 0 12/04/2024 07:30 AM EDT History and Physical Notes * HPI (History of Present Illness) Category Sub-Category Detail Notes Category Not es General doing emdr therapy 0 QO Week Left wrist - slapped at a bug - sawe;lled instandly lip iwght cap hemangioma - Examination Category Sub-Category Detail Notes Category Not es Abdomen Exam: Left wristhe m od brusing - tendenrnees in snuff box Consultation Request Notes Referral Date Referring Provider Referred Provider Not es 10/24/2024 Prashant White Gregory
--- OUTSIDE RECORDS SUMMARY | 2024-10-24 15:09 | XMS_ITS ---
Author Organization [facility] Address [address] [place] [address] Care Team Providers Care Web Services Manager Name Role Phone Prashant Porter Primary Care Provider REASON FOR VISIT X-Ray Results Encounters Encounter Location Date Provider Diagnosis [address] [address] 10/24/2024 Prashant Porter Plan Of Treatment Next Appt Details Provider Name:Prashant Porter, 03:45:00 PM, [address] [place], [address], Progress Notes * Quang DORSEYOB:1965 ( 59 yo F)Acc No.[id number]:10/24/2024 Patient: Eugenia SANTOS :1965 A ge:59 Y S ex:Female Address:[place], [address] * true * Date: Generated for Toñoi lambert/Hortensia/eTransmitting on: 12/04/2024 07:30 AM EDT
--- OUTSIDE RECORDS SUMMARY | 2024-12-04 07:31 | XMS_ITS | Encounter Summary ---
Author Organization [facility] Address [address] [place] [address] Care Team Providers Care Doubling Machine Operator Name Role Phone Estiven Porter MD Primary Care Provider [phone] Encounter Details Date Type Department Care Team (Late st Contact Info) Description 09/22/2022 Clinisync Result Encounter [facility] External Department Unsolicited Katie Rust, DO [address] [facility] [place] [address] Social History Tobacco Use Types [...] : DR KATIE RUST . Admission #: [id number] Family : Order #: [id number] CLICK HERE TO VIEW EXAM RADIOLOGY REPORT [...] : DR KATIE RUST . Admission #: [id number] Family : Order #: [id number] CLICK HERE TO VIEW EXAM RADIOLOGY REPORT [...] on filedocumented in this encounter Care Teams Doubling Machine Operator Relationship Specialty Start Date End Date Estiven Porter MD PCP - General 09/13/22 documented as of this encounter
--- OUTSIDE RECORDS SUMMARY | 2024-12-04 07:31 | XMS_ITS | Encounter Summary ---
Author Organization [facility] Address [address] [place] [address] Care Team Providers Care Gang Punch Operator Name Role Phone Estiven Porter MD Primary Care Provider [phone] Encounter Details Date Type Department Care Team (Late st Contact Info) Description 07/13/2023 Clinisync Result Encounter [facility] External Department Unsolicited Katie Rust, DO [address] [facility] [address] [place], [place] [id number] Social History Tobacco Use Types Packs/Day Years [...] EDT Narrative 07/13/2023 7:20 AM EDT [place] [id number] Ultrasound Report Signed Patient: YULIA DORSEY MR#: [id number] : 1965 Acct:[id number] Age/Sex: 57 / F ADM Date: 07/12/23 Loc: US Attending Dr: Katie Rust D.O. Ordering Physician: Katie Rust D.O. Date of Service: 07/12/23 Procedure(s): US pelvis w/ transvaginal Accession Number(s): [id number] cc: Katie Rust D.O.; Estiven Porter M.D. [place] [id number] Patient Name: YULIA DORSEY MRN: [id number] date: 1965 Sex: F Assigned Patient Location: US Current Patient Location: Accession/Order Number: [id number] Exam Date: 07/12/2023 16:50 Report Date: 07/13/2023 [...] M.D. Signed By: 07/13/2320 DD/ 7 TD/TT: [employer] Worker: Procedure Note Radiology, Radiologist, MD - 03/19/[address] [address] Ultrasound Report Signed Patient: YULIA DORSEY LMR#: [id number] : 1965Acct:[id number] Age/Sex: 57 / FADM Date: 07/12/23 Loc: US Attending Dr: Katie Rust D.O. Ordering Physician: Katie Rust D.O. Date of Service: 07/12/23 Procedure(s): US pelvis w/ transvaginal Accession Number(s): [id number] cc: Katie Rust D.O.; Estiven Porter M.D. The [place] [id number] Patient Name: YULIA DORSEY MRN: [id number] date: 1965 Sex: F Assigned Patient Location: US Current Patient Location: Accession/Order Number: [id number] Exam Date: 07/12/2023 16:50 Report Date: 07/13/2023 [...] Alvarez M.D. Signed By:07/13/23719 DD/ 7 TD/TT: [employer] Worker: us Katie Yocasta DO [facility] Final Result documented in this encounter Visit Diagnoses Not on filedocumented in this encounter Care Teams Gang Punch Operator Relationship Specialty Start Date End Date Estiven Porter MD PCP - General 09/13/22 documented as of this encounter
--- OUTSIDE RECORDS SUMMARY | 2024-12-04 07:31 | XMS_ITS | Encounter Summary ---
Author Organization [facility] Address [address] [place] [address] Care Team Providers Care Tractor Trailer Moving Van Driver Name Role Phone Estiven Porter MD Primary Care Provider [phone] Encounter Details Date Type Department Care Team (Late st Contact Info) Description 09/15/2022 Orders Only [facility] [address] [place] [address] [place] [address] Deepti Palacios LPN Social History Tobacco [...] on filedocumented in this encounter Care Teams Tractor Trailer Moving Van Driver Relationship Specialty Start Date End Date Estiven Porter MD PCP - General 09/13/22 documented as of this encounter
--- OUTSIDE RECORDS SUMMARY | 2024-12-04 07:31 | XMS_ITS | Encounter Summary ---
Author Organization [facility] Address [id number] [address] [place] [address] Care Team Providers Care Hash Slinger Name Role Phone Estiven Porter MD Primary Care Provider [phone] Encounter Details Date Type Department Care Team (Late st Contact Info) Description 09/05/2024 Orders Only [facility] [address] [place] [id number] [place], [place] [address] Social History Tobacco Use Types Packs/Day Years [...] [facility] [address] [place] [address] Allyson Thomas MD [address] [facility] [place] [address] documented as of this encounter Procedures Procedure Name Priority Date/Time Associated Diagnosis Comments MULTIPLE LABS Routine 09/05/2024 1:53 PM EDT documented in this encounter Results * Multiple labs (09/05/2024 1:53 PM EDT) us Not In System Ref Prov [facility] Final Res ult documented in this encounter Visit Diagnoses Not on filedocumented in this encounter Care Teams Hash Slinger Relationship Specialty Start Date End Date Estiven Porter MD PCP - General Family Medicine 03/22/19 documented as of this encounter
--- OUTSIDE RECORDS SUMMARY | 2024-12-04 07:31 | XMS_ITS | Clinical Summary ---
Author Organization [facility] Address [address] [place] [phone] Care Team Providers Care Printed Circuit Boards Laminator Name Role Phone Estiven Porter MD Primary Care Provider [phone] Allergies Active Allergy Reactions Criticality Noted Date [...] (#1) 2024 Insurance [employer] GENERIC Care Teams Printed Circuit Boards Laminator Relationship Specialty Start Date End Date Estiven Porter MD PCP - General Family Medicine 02/25/16
--- OUTSIDE RECORDS SUMMARY | 2024-12-04 07:31 | XMS_ITS | Clinical Summary ---
Author Organization [facility] Address [address] [place] [address] Care Team Providers Care Mechanic'S Assistant Name Role Phone Estiven Porter MD Primary Care Provider [phone] Allergies Active Allergy Reactions Criticality Noted Date [...] Not on file Insurance [employer] Care Teams Mechanic'S Assistant Relationship Specialty Start Date End Date Estiven Porter MD PCP - General 09/13/22
--- OUTSIDE RECORDS SUMMARY | 2024-12-04 07:31 | XMS_ITS | Encounter Summary ---
Author Organization [facility] Address [address] [place] [address] Care Team Providers Care Automotive Service Consultant Name Role Phone Estiven Porter MD Primary Care Provider [phone] Encounter Details Date Type Department Care Team (Late st Contact Info) Description 01/07/2024 Clinisync Result Encounter [facility] External Department Unsolicited Katie Rust, DO [address] [facility] [place] [address] Social History Tobacco Use Types [...] Narrative 01/07/2024 6:27 PM EDT The [address] [address] Electrocardiograph Report Signed Patient: YULIA DORSEY MR#: [id number] : 1965 Acct:[id number] Age/Sex: 58 / F ADM Date: 01/07/24 Loc: SURGOUT Attending Dr: Katie Rust D.O. Ordering Physician: Katie Rust D.O. Date of Service: 01/07/24 Procedure(s): ECG 12 lead Accession Number(s): [id number] cc: [facility] Test Date: 2024-01-07 Pat Name: YULIA DORSEY Department: Room: - Gender: Female Commissioned Fire Officer: : 1965 Requested By: KATIE RUST Order Number: [id number] Reading MD: VADIM GARCIA Measurements Intervals [place] Rate: 89 P: 73 DE: 162 QRS: -4 QRSD: 102 T: 70 QT: 384 QTc: 469 Interpretive Statements SINUS RHYTHM NONSPECIFIC ST T-WAVE ABNORMALITY Compared to ECG 07/19/2023 15:11:49 T-wave abnormality now present Electronically Signed On 01-07-2024 18:27:28 EDT by VADIM GARCIA Dictated By: Vadim Garcia D.O. Signed By: 01/07/24 1827 DD/ 0723 TD/TT: Binder Sorter: Procedure Note Radiology, Radiologist, MD - 01/07/2024 The [place] [id number] Electrocardiograph Report Signed Patient: YULIA DORSEY LMR#: [id number] : 1965Acct:[id number] Age/Sex: 58 / FADM Date: 01/07/24 Loc: SURGOUT Attending Dr: Katie Rust D.O. Ordering Physician: Katie Rust D.O. Date of Service: 01/07/24 Procedure(s): ECG 12 lead Accession Number(s): [id number] cc: [facility] Test Date: 2024-01-07 Pat Name: YULIA DORSEY Department: Room: - Gender: Female Commissioned Fire Officer: : 1965 Requested By: KATIE RUST Order Number: [id number] Reading MD: VADIM GARCIA Measurements Intervals [place] Rate: 89 P: 73 DE: 162 QRS: -4 QRSD: 102 T: 70 QT: 384 QTc: 469 Interpretive Statements SINUS RHYTHM NONSPECIFIC ST T-WAVE ABNORMALITY Compared to ECG 07/19/2023 15:11:49 T-wave abnormality now present Electronically Signed On 01-07-2024 18:27:28 EDT by VADIM GARCIA Dictated By: Vadim Garcia D.O. Signed By:01/07/24 1827 DD/ 0723 TD/TT: Binder Sorter: us Katie Rust DO [facility] Final Result documented in this encounter Visit Diagnoses Not on filedocumented in this encounter Care Teams Automotive Service Consultant Relationship Specialty Start Date End Date Estiven Porter MD PCP - General 09/13/22 documented as of this encounter
--- OUTSIDE RECORDS SUMMARY | 2024-12-04 07:31 | XMS_ITS | Encounter Summary ---
Author Organization [facility] Address [address] [place] [address] Care Team Providers Care Music Promoter Name Role Phone John White MD Primary Care Provider [phone] Encounter Details Date Type Department Care Team (Late st Contact Info) Description 07/19/2023 Clinisync Result Encounter [facility] External Department Unsolicited Katie Rust, DO [address] [facility] [place] [address] Social History Tobacco Use Types [...] EDT Narrative 07/21/2023 9:13 AM EDT The [address] [address] Electrocardiograph Report Signed Patient: YULIA DORSEY MR#: [id number] : 1965 Acct:[id number] Age/Sex: 57 / F ADM Date: 07/19/23 Loc: PST Attending Dr: Katie Rust D.O. Ordering Physician: Katie Rust D.O. 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 Signed By: 07/21/23 0913 DD/ 1511 TD/TT: Mounter Sousaphones: Procedure Note Radiology, Radiologist, MD - 07/21/[address] [address] Electrocardiograph Report Signed Patient: YULIA DORSEY LMR#: [id number] : 1965Acct:[id number] Age/Sex: 57 / FADM Date: 07/19/23 Loc: PST Attending Dr: Katie Rust D.O. Ordering Physician: Katie Rust D.O. 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 Signed By:07/21/23 0913 DD/ 1511 TD/TT: Mounter Sousaphones: us Katie Rust DO [facility] Final Result documented in this encounter Visit Diagnoses Not on filedocumented in this encounter Care Teams Music Promoter Relationship Specialty Start Date End Date John White MD PCP - General 09/13/22 documented as of this encounter
--- OUTSIDE RECORDS SUMMARY | 2024-12-04 07:31 | XMS_ITS | Encounter Summary ---
Author Organization [facility] Address [address] [place] [address] Care Team Providers Care Teleradiologist Name Role Phone Estiven Porter MD Primary Care Provider [phone] Encounter Details Date Type Department Care Team (Late st Contact Info) Description 09/22/2022 Clinisync Result Encounter [facility] External Department Unsolicited Katie Rust, DO [address] [facility] [place] [address] Social History Tobacco Use Types [...] : DR KATIE RUST . Admission #: [id number] Family : Order #: [id number] CLICK HERE TO VIEW EXAM RADIOLOGY REPORT [...] breast cancer at age 40. LOCATION: The [facility] BREAST COMPOSITION: Almost entirely fatty. [...] : DR KATIE RUST . Admission #: [id number] Family : Order #: [id number] CLICK HERE TO VIEW EXAM RADIOLOGY REPORT [...] breast cancer at age 40. LOCATION: The [facility] BREAST COMPOSITION: Almost entirely fatty. [...] on filedocumented in this encounter Care Teams Teleradiologist Relationship Specialty Start Date End Date Estiven Porter MD PCP - General 09/13/22 documented as of this encounter
--- OUTSIDE RECORDS SUMMARY | 2024-12-04 07:31 | XMS_ITS | Clinical Summary ---
Author Organization [employer] [facility] tem Address [id number] [address] [place] [address] Care Team Providers Care Ext Js Developer Name Role Phone Estiven Porter MD Primary [...] organization. Date Type Department Care Team Description 11/16/2024 Travel 11/10/2024 Travel 11/02/2024 Travel 10/26/2024 Travel 10/18/2024 Travel 10/10/2024 Travel 10/05/2024 Travel 09/26/2024 Travel 09/15/2024 Travel 09/05/2024 Orders Only [facility] [address] [place] [address] Ref Prov, Not In System 09/05/2024 Abstract [facility] [address] [place] [phone] External, Scanning Provider from Last 3 Months Family History Medical [...] got money to buy more. Never True 11/17/2024 Within the past 12 months th e food we bought just didn't last and we didn't have money to get more. Never True 11/17/2024 Purpose - Life Answer Date Recorded Purpose [...] Office Visit [facility] [address] [facility] [address] [place] [phone] Allyson Thomas MD [address] [place] [address] Health Maintenance Due Date Last Done Comments [...] EDT) us Not In System Ref Prov [facility] Final Res ult from Last 3 Months Insurance [employer] Care Teams Ext Js Developer Relationship Specialty Start Date End Date Estiven Porter MD PCP - General Family Medicine 03/22/19
--- OUTSIDE RECORDS SUMMARY | 2024-12-04 07:32 | XMS_ITS | CCD ---
Author Organization [facility] Care Team Providers Care Grease Cup Filler Name Role Phone ABELINOY ., DR LOPEZ [...] DR WILSON Admitting Unavailable YOCASTA ., DR WILOSN Attending Unavailable HOY ., DR LOPEZ Primary Care Unavailable HOY ., DR LOEPZ Admitting Unavailable HOY ., DR LOPEZ Attending [...] Unavailable YOCASTA ., DR WILSON Attending Unavailable MACON, DR ELLYN Dougherty Consulting Unavailable HOY ., [...] Unavailable MD John Porter Primary Care Provider [phone] DO Katie Rust Attending Provider Bessie Gong Attending Unavailable Hoy, John M Primary Care Unavailable Yocasta, Katie Attending Unavailable Yocasta, Katie Admitting Unavailable John Porter MD Primary Care Provider [phone] John Porter MD Primary Care Provider [phone] IRIS GABRIEL Attending Unavailable HOY, JOHN [...] Unavailable HOY, JOHN M Primary Care Unavailable GABRIEL, IRIS Attending Unavailable HOY, JOHN M Referring Unavailable HOY, JOHN M Primary Care Unavailable GABRIEL, IRIS Attending Unavailable HOY, JOHN M Referring Unavailable HOY, JOHN M Primary Care Unavailable GABRIEL, IRIS Attending Unavailable HOY, JOHN M Referring Unavailable HOY, JOHN M Primary Care Unavailable GABRIEL, IRIS Attending Unavailable HOY, OJHN M Referring Unavailable HOY, JOHN M Primary Care Unavailable GABRIEL, IRIS Attending Unavailable HOY, JOHN M Referring Unavailable HOY, JOHN M Primary Care Unavailable GABRIEL, IRIS Attending Unavailable HOY, JOHN M Referring Unavailable HOY, JOHN M Primary Care Unavailable GABRIEL, IRIS Attending Unavailable HOY, JOHN M Referring Unavailable HOY, JOHN M Primary Care Unavailable Allergies Allergy Classification Reported Allergen(s) Allergy Type Date of Onset Reaction(s) Facility (1 source) Azithromycin Drug Allergy 12-21-19 22 [facility] Repository (4 sources) Imipramine; Translations: [IMIPRAMINE] Drug Allergy 10-06-19 13 hallucinations [facility] Repository (2 sources) Sulfonamides (Antibiotic) Drug allergy (disorder) 10-06-19 13 [facility] Repository (2 sources) E.E.S. Drug allergy (disorder) 10-06-19 13 [facility] Repository (18 sources) Erythromycin; Translations: [erythromycin] Drug Allergy 02-25-20 16 Unknown (qualifier value), Other [facility] (17 sources) Imipramine; Translations: [imipramine] Drug Allergy 02-25-20 16 Unknown (qualifier value), Other [facility] (2 sources) Sulfonamides (Antibiotic); Translations: [sulfa drugs] Drug allergy Unknown (qualifier value) [facility] (4 sources) Sulfonamides (Antibiotic); Translations: [Sulfa (Sulfonamide Antibiotics)] Allergy to substance 09-12-19 [facility] (16 sources) erythromycin base; Translations: [erythromycin base] Allergy to substance 12-02-19 [facility] (1 source) Imipramine Drug Allergy 12-02-19 [facility] Repository (14 sources) Sulfonamides (Antibiotic) Drug Intolerance 02-25-20 16 Rash [facility] (3 sources) Ciprofloxacin Drug Allergy 01-20-20 24 [facility] Healthcare Medications Current [...] 01-03-2024 Episodic Other aftercare (4 sources) 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 Ordering Physician: Katie Rust D.O. Results: Date of Service: 05/30/24 Follow Up: Procedure(s): MM tomosynthesis screening BI Accession Number(s): [id number] cc: Katie Rust D.O.; John Porter M.D. Patient Name: YULIA DORSEY MR#: [id number] : 1965 Exam Date: 05/30/2024 Ordering Doctor: [...] breast cancer at age 40. LOCATION: [facility] BREAST COMPOSITION: The breasts are [...] Signed By: 05/30/24 1635 DD/ 1634 TD/TT: Salesperson Driver: [facility] Radiology, Radiologist, MD - 05/30/2024 [place] [address] Mammography Report Signed Patient: YULIA DORSEY MR#: [id number] : 1965 Acct:[id number] Age/Sex: 58 / F ADM Date: 05/30/24 Loc: MAMMO Attending Dr: Kaite Rust D.O. Ordering Physician: Katie Rust D.O. Results: Date of Service: 05/30/24 Follow Up: Procedure(s): MM tomosynthesis screening BI Accession Number(s): [id number] cc: Katie Rust D.O.; John Porter M.D. Patient Name: YULIA DORSEY MR#: [id number] : 1965 Exam Date: 05/30/2024 Ordering Doctor: [...] breast cancer at age 40. LOCATION: [facility] BREAST COMPOSITION: The breasts are [...] Strong M.D. Signed By: 05/30/24 163 DD/ 163 TD/TT: Salesperson Driver: [facility] Radiology Study observation (narrative) [facility] MM TOMOSYNTHESIS SCREENING B IOrdered By: Radiologist Radiology on 05-30-2024 [facility] Work Phone: ALL CBC WITH AUTO DIFFon BASOPHILS ABSOLUTE AUTO 0.0 [facility] Basophils/100 WBC (Bld) 0.8 % 0.2 - 2.0 % [facility] Eosinophils/100 WBC (Bld) 1.9 % 0.9 - 7.0 % [facility] Erythrocyte distribution width (RBC) [Ratio] 13.4 % 11.0 - 15.0 % [facility] Hematocrit (Bld) [Volume fraction] 43.1 % 36.0 - 48.0 % [facility] Hemoglobin (Bld) [Mass/Vol] 13.9 g/dL 12.0 - 16.0 g/dL [facility] IMMATURE GRANULOCYTES ABS AUTO 0.01 [facility] Immature granulocytes/100 WBC (Bld) 0.2 % 0.0 - 0.5 % [facility] LYMPHOCYTES ABSOLUTE AUTO 1.7 [facility] Lymphocytes/100 WBC (Bld) 32.9 % 20.5 - 60.0 % [facility] MCH (RBC) [Entitic mass] 28.8 pg 26.7 - 34.0 pg [facility] MCHC (RBC) [Mass/Vol] 32.3 g/dL 29.9 - 35.2 g/dL [facility] MCV (RBC) [Entitic vol] 89.2 fL 81.0 - 99.0 fL [facility] MONOCYTES ABSOLUTE AUTO 0.5 [facility] Monocytes/100 WBC (Bld) 9.6 % 1.7 - 12.0 % [facility] NEUTROPHILS ABSOLUTE AUTO 2.8 [facility] Neutrophils/100 WBC (Bld) 54.6 % 43.0 - 75.0 % [facility] Platelet mean volume (Bld) [Entitic vol] 9.7 fL 9.5 - 13.5 fL [facility] EO # 0.1 [facility] PLT 291 [facility] RBC 4.83 [facility] WBC 5.1 [facility] [place] 01-07-2024 L Specimen: [id number] Received: 01/07/24 Status: LAWSON Guzman Num: [id number] Spec Type: Surgical Subm Dr: Katie Rust Tissues: A Endometrial Polyp (ENOMETRIAL POLYP AND CURETTI) Procedures: HE/2, Gross/Micro L4 Age/ Patient Sex Location Account Attending Physician Yulia Dorsey 58/F LABELL [id number] Katie Rust SPEC NUM: [id number] RECD: 01/07/24 STATUS: LAWSON GUZMAN NUM: [id number] TIMOTHY: 01/07/24 [facility] DR: Katie Rust ENTERED: 01/07/24-1351 [facility] DR: Cristhian,Lab SPEC TYPE: Surgical DEPT: BIANCA VANN ENTERED BY: [id number] RECV BY: [id number] ORDERED: HE/2, Gross/Micro L4 ORDERED: HE/2, Gross/Micro [...] is entirely submitted cassette A1. CPT Codes 03618 -------- -------- Specimen: [id number] Received: 01/07/24 Status: LAWSON Guzman Num: [id number] Spec Type: Surgical Subm Dr: Katie uRst Tissues: A Endometrial Polyp (ENOMETRIAL POLYP AND CURETTI) Procedures: HE/2, Gross/Micro L4 -------- Patient: WillianuYlia Arrieta [id number] (Continued) -------- Signed (signature on file) Tammie Mcclellan MD 01/13/24 1606 Normal [facility] Patient Letter FTon 2023 Patient Letter [facility] Patient Letter [facility] January 07, 2024 YULIA DORSEY [address] [place] [address] : 1965 Dear Yulia Dorsey, We have been trying to reach you with no success. It is important that you return our call upon receiving this letter. Also, at the time of your call, please provide us with your current information. Thank you for your prompt attention to this matter. Sincerely, [facility] [address] [place] [address] [facility] Ambulatory Visit Summaryon 0 12-30-2023 Ambulatory [...] you for choosing us for your care. [facility] Provider Letteron 12-30-2023 Provider Letter Provider Letter December 30, 2023 [facility]UL[facility] [address] : 1965 To Whom It May Concern, Please excuse above patient from work. Date of Illness: From: 12/30/23 To: 12/30/23 May Return to Work On: 12/31/2023 Restrictions: Comments: Patient had an appointment on 12/30/23 at [facility] Sincerely, [facility] Urology Office/Clinic Noteon 12-30-2023 Urology Office/Clinic [...] Skin: No rashes or suspicious lesions Assessment/Plan DIGITAL INTERN referred by Dr. Porter for recurrent UTI [...] she went to an urgent care in [facility] who started her on Augmentin for [...] E&M of New Patient High 60-74 Min 10106 2. Kidney stones (N20.0: Calculus of kidney) [...] -K (more content not included)... Normal [facility] Comment on above: Result Comment: Elec tronically Signed By: Bessie Quiñones\.br\Date and Time Signed: 12/30/23 15:22 EDT URETHRITIS/DISCHARGE PLUS VA GINITIS (HTRX)on 12-22-2023 [facility].000 [facility] ATOPOBIUM VAGINAE Not [...] Healthcare TRICHOMONAS VAGINALIS Not detected [facility] MG MAMM DX 3D RT CADon 09-22 MG MAMM DX 3D RT CAD Patient: YULIA DORSEY Exam Date: 09/22/2022 : 1965 Gender:F Ordering : DR KATIE RUST . Admission #: [id number] Family : Order #: [id number] CLICK HERE TO VIEW EXAM RADIOLOGY REPORT [...] breast cancer at age 40. LOCATION: [facility] BREAST COMPOSITION: Almost entirely fatty. [...] Castaneda MD on 09/22/2022 at 15:03 Normal [facility] US BREAST RIGHT LIMITEDon US BREAST RIGHT LIMITED Patient: YULIA DORSEY Exam Date: 09/22/2022 : 1965 Gender:F Ordering : DR KATIE RUST . Admission #: [id number] Family : Order #: [id number] CLICK HERE TO VIEW EXAM RADIOLOGY REPORT [...] breast cancer at age 40. LOCATION: [facility] BREAST COMPOSITION: Almost entirely fatty. [...] Castaneda MD on 09/22/2022 at 15:03 Normal [facility] US ST HEAD_NECKon 08-31-[address] HEAD_NECK [...] GABO STRONG Date: 2022-08-31 08:09 Normal [facility] US PELVIS AND TRANSVAGon US [...] GABO STRONG Date: 2022-07-29 06:32 Normal [facility] INSULINon 07-04-2022 Insulin 6.2 uIU/mL Normal 2.6-24.9 [facility] Comment on above: Performed By: #### H DEB, CMP #### [facility] [address] [place] [address] Dr. Judd Andrade CBC AUTO DIFFon 07-03-2022 BASO # 0.0 103/ul Normal 0.0-0.1 [facility] Comment on above: Performed By: #### C BC #### [facility] [address] [address] [address] Judd Andrade Basophils/100 WBC (Bld) 1.1 % Normal 0.2-2.0 [facility] Comment on above: Performed By: #### C BC #### [facility] [address] [address] [address] Judd Andrade EO # 0.1 103/ul Normal 0.0-0.7 [facility] Comment on above: Performed By: #### C BC #### [facility] [address] [place] [address] Dr. Judd Andrade Eosinophils/100 WBC (Bld) 3.6 % Normal 0.9-7.0 [facility] Comment on above: Performed By: #### C BC #### [facility] [address] [place] [address] Dr. Judd Andrade Erythrocyte distribution width (RBC) [Ratio] 13.6 % Normal 11.0-15.0 [facility] Comment on above: Performed By: #### C BC #### [facility] [address] [place] [address] Dr. Judd Andrade Hematocrit (Bld) [Volume fraction] 41.8 % Normal 36.0-48.0 [facility] Comment on above: Performed By: #### C BC #### [facility] [address] [place] [address] Dr. Judd Andrade Hemoglobin (Bld) [Mass/Vol] 13.5 g/dL Normal 12.0-16.0 [facility] Comment on above: Performed By: #### C BC #### [facility] [address] [place] [address] Dr. Judd Andrade IG # 0.01 10e3/ul Normal 0.00-0.03 [facility] Comment on above: Performed By: #### C BC #### [facility] [address] [place] [address] Dr. Judd Andrade IG % 0.3 % Normal 0.0-0.5 [facility] Comment on above: Performed By: #### C BC #### [facility] [address] [place] [address] Dr. Judd Andrade LYMPH # 1.4 103/ul Normal 1.2-3.8 [facility] Comment on above: Performed By: #### C BC #### [facility] [address] [place] [address] Dr. Judd Andrade Lymphocytes/100 WBC (Bld) 38.4 % Normal 20.5-60.0 [facility] Comment on above: Performed By: #### C BC #### [facility] [address] [place] [address] Dr. Judd Andrade MANUAL DIFF REQ NO Normal [facility] Comment on above: Performed By: #### C BC #### [facility] [address] [place] [address] Dr. Judd Andrade MCH (RBC) [Entitic mass] 28.2 pg Normal 26.7-34.0 [facility] Comment on above: Performed By: #### C BC #### [facility] [address] [place] [address] Dr. Judd Andrade MCHC (RBC) [Mass/Vol] 32.3 g/dL Normal 29.9-35.2 [facility] Comment on above: Performed By: #### C BC #### [facility] [address] [place] [address] Dr. Judd Andrade MCV (RBC) [Entitic vol] 87.4 fL Normal 81.0-99.0 [facility] Comment on above: Performed By: #### C BC #### [facility] [address] [place] [address] Dr. Judd Andrade MONO # 0.4 103/ul Normal 0.3-0.8 [facility] Comment on above: Performed By: #### C BC #### [facility] [address] [place] [address] Dr. Judd Andrade Monocytes/100 WBC (Bld) 10.4 % Normal 1.7-12.0 [facility] Comment on above: Performed By: #### C BC #### [facility] [address] [place] [address] Dr. Judd Andrade NEUT # 1.7 103/ul Normal 1.4-6.5 [facility] Comment on above: Performed By: #### C BC #### [facility] [address] [place] [address] Dr. Judd Andrade Neutrophils/100 WBC (Bld) 46.2 % Normal 43.0-75.0 [facility] Comment on above: Performed By: #### C BC #### [facility] [address] [place] [address] Dr. Judd Andrade Platelet mean volume (Bld) [Entitic vol] 9.6 fL Normal 9.5-13.5 [facility] Comment on above: Performed By: #### C BC #### [facility] [address] [place] [address] Dr. Judd Andrade PLT 246 103/ul Normal 150-450 [facility] Comment on above: Performed By: #### C BC #### [facility] [address] [place] [address] Dr. Judd Andrade RBC 4.78 106/ul Normal 4.20-5.40 [facility] Comment on above: Performed By: #### C BC #### [facility] [address] [place] [address] Dr. Judd Andrade WBC 3.7 103/ul Critically low 4.0-11.0 [facility] Comment on above: Performed By: #### C BC #### [facility] [address] [place] [address] Dr. Judd Andrade FREE THYROXINE INDEX T7on FTI 3.20 Normal 1.30-4.50 [facility] Comment on above: Performed By: #### T 7, LIPID, TSH, CMP #### [facility] [address] [place] [address] Dr. Judd Andrade T3U 36.0 % Normal 30.0-39.0 [facility] Comment on above: Performed By: #### T 7, LIPID, TSH, CMP #### [facility] [address] [address] [address] Judd Andrade T4 [Mass/Vol] 8.90 ug/dL Normal 4.80-13.90 [facility] Comment on above: Performed By: #### T 7, LIPID, TSH, CMP #### [facility] [address] [address] [address] Judd Andrade GLYCOHEMOGLOBIN A1Con 2022 ADA RECOMMENDATION SEE BELOW Normal [facility] Comment on above: Result Comment: ADA RECOMMENDED LIMIT 4.0 - 6.0 ADA THERAPEUTIC TARGET < 7.0 ACTION SUGGESTED > 7.0 Performed By: #### C BC #### [facility] [address] [place] [address] Dr. Judd Andrade Glucose [Mass/Vol] 120 mg/dL Normal [facility] Comment on above: Performed By: #### C BC #### [facility] [address] [place] [address] Dr. Judd Andrade HbA1c (Bld) [Mass fraction] 5.8 % Normal 4.5-6.2 [facility] Comment on above: Performed By: #### C BC #### [facility] [address] [place] [address] Dr. Judd Andrade IRONon 07-03-2022 Iron [Mass/Vol] 67.0 ug/dL Normal 50.0-170.0 [facility] Comment on above: Performed By: #### V ITAD, IRON #### [facility] [address] [place] [address] Dr. Judd Andrade LIPID PROFILEon 07-03-2022 CHOL-HDL RATIO NORM SEE BELOW Normal [facility] Comment on above: Result Comment: 3.3 - 4.4 LOW RISK 4.4 - 7.1 AVERAGE RISK 7.1 - 11.0 MODERATE RISK >11.0 HIGH RISK Performed By: #### T 7, LIPID, TSH, CMP #### [facility] [address] [place] [address] Dr. Judd Andrade Cholesterol [Mass/Vol] 216 mg/dL Critically high <=200 [facility] Comment on above: Performed By: #### T 7, LIPID, TSH, CMP #### [facility] [address] [address] [address] Judd Andrade Cholesterol in HDL [Mass/Vol] 87 mg/dL Critically high 40-60 [facility] Comment on above: Performed By: #### T 7, LIPID, TSH, CMP #### [facility] [address] [address] [address] Judd Andrade Cholesterol in LDL [Mass/Vol] 124.2 mg/dL Normal [facility] Comment on above: Performed By: #### T 7, LIPID, TSH, CMP #### [facility] [address] [address] [address] Judd Andrade Cholesterol.total/C holesterol in HDL [Mass ratio] 2.5 {ratio} Normal [facility] Comment on above: Performed By: #### T 7, LIPID, TSH, CMP #### [facility] [address] [address] [address] Judd Andrade HDL NORMAL > or = 60 mg/dl - LO W CARDIOVASCULAR RISK <40 mg/dl - HIGH CARDIOVASCULAR RISK Normal [facility] Comment on above: Performed By: #### T 7, LIPID, TSH, CMP #### [facility] [address] [address] [address] Judd Andrade LDL CALC NORMAL SEE BELOW Normal [facility] Comment on above: Result Comment: <100 mg/dl OPTIMAL 100 - 129 mg/dl NEAR OR ABOVE OPTIMAL 130 - 159 mg/dl BORDERLINE HIGH 160 - 189 mg/dl HIGH >190 mg/dl VERY HIGH Performed By: #### T 7, LIPID, TSH, CMP #### [facility] [address] [address] [address] Judd Andrade Triglyceride [Mass/Vol] 24 mg/dL Normal <=150 [facility] Comment on above: Performed By: #### T 7, LIPID, TSH, CMP #### [facility] [address] [address] [address] Judd Andrade VLDL CALC 4.8 mg/dL Normal [facility] Comment on above: Performed By: #### T 7, LIPID, TSH, CMP #### [facility] [address] [place] [address] Dr. Judd Andrade PROF 14(COMP METB)on 023 Albumin [Mass/Vol] 4.0 g/dL Normal 3.4-5.0 [facility] Comment on above: Performed By: #### T 7, LIPID, TSH, CMP #### [facility] [address] [place] [address] Dr. Judd Andrade Albumin/Globulin [Mass ratio] 1.1 {ratio} Normal [facility] Comment on above: Performed By: #### T 7, LIPID, TSH, CMP #### [facility] [address] [place] [address] Dr. Judd Andrade ALP [Catalytic activity/Vol] 78 U/L Normal 46-116 [facility] Comment on above: Performed By: #### T 7, LIPID, TSH, CMP #### [facility] [address] [place] [address] Dr. Judd Andrade ALT [Catalytic activity/Vol] 29 U/L Normal 14-59 [facility] Comment on above: Performed By: #### T 7, LIPID, TSH, CMP #### [facility] [address] [place] [address] Dr. Judd Andrade Anion gap [Moles/Vol] 5.6 mmol/L Normal [facility] Comment on above: Performed By: #### T 7, LIPID, TSH, CMP #### [facility] [address] [place] [address] Dr. Judd Andrade AST [Catalytic activity/Vol] 23 U/L Normal 15-37 [facility] Comment on above: Performed By: #### T 7, LIPID, TSH, CMP #### [facility] [address] [place] [address] Dr. Judd Andrade Bilirubin [Mass/Vol] 0.5 mg/dL Normal 0.2-1.0 [facility] Comment on above: Performed By: #### T 7, LIPID, TSH, CMP #### [facility] [address] [place] [address] Dr. Judd Andrade Calcium [Mass/Vol] 8.9 mg/dL Normal 8.5-10.[address] [facility] Comment on above: Performed By: #### T 7, LIPID, TSH, CMP #### [facility] [address] [place] [address] Dr. Judd Andrade Chloride [Moles/Vol] 105 mmol/L Normal 98-107 [facility] Comment on above: Performed By: #### T 7, LIPID, TSH, CMP #### [facility] [address] [place] [address] Dr. Judd Andrade CO2 [Moles/Vol] 32.0 mmol/L Normal 21.0-32.0 [facility] Comment on above: Performed By: #### T 7, LIPID, TSH, CMP #### [facility] [address] [place] [address] Dr. Judd Andrade Creatinine [Mass/Vol] 0.52 mg/dL Critically low 0.55-1.02 [facility] Comment on above: Performed By: #### T 7, LIPID, TSH, CMP #### [facility] Laboratory [address] [place] [address] Dr. Judd Andrade EGFR-AF NIGERIEN >60 Normal >=60 [facility] Comment on above: Performed By: #### T 7, LIPID, TSH, CMP #### [facility] Laboratory [address] [place] [address] Dr. Judd Andrade EGFR-NON AF NIGERIEN >60 Normal >=60 [facility] Comment on above: Performed By: #### T 7, LIPID, TSH, CMP #### [facility] Laboratory [address] [address] [address] Judd Andrade Globulin (S) [Mass/Vol] 3.6 g/dL Normal [facility] Comment on above: Performed By: #### T 7, LIPID, TSH, CMP #### [facility] Laboratory [address] [place] [address] Dr. Judd Andrade Glucose [Mass/Vol] 89 mg/dL Normal 74-[address] [facility] Comment on above: Performed By: #### T 7, LIPID, TSH, CMP #### [facility] [address] [address] [address] Judd Andrade Potassium [Moles/Vol] 4.2 mmol/L Normal 3.5-5.1 [facility] Comment on above: Performed By: #### T 7, LIPID, TSH, CMP #### [facility] Laboratory [address] [place] [address] Dr. Judd Andrade Protein [Mass/Vol] 7.6 g/dL Normal 6.4-8.[address] [facility] Comment on above: Performed By: #### T 7, LIPID, TSH, CMP #### [facility] [address] [place] [address] Dr. Judd Andrade Sodium [Moles/Vol] 139 mmol/L Normal 136-[address] [facility] Comment on above: Performed By: #### T 7, LIPID, TSH, CMP #### [facility] Laboratory [address] [place] [address] Dr. Judd Andrade Urea nitrogen [Mass/Vol] 11.0 mg/dL Normal 7.0-18.0 [facility] Comment on above: Performed By: #### T 7, LIPID, TSH, CMP #### [facility] Laboratory [address] [place] [address] Dr. Judd Andrade Urea nitrogen/Creatinine [Mass ratio] 21.2 mg/mg Normal [facility] Comment on above: Performed By: #### T 7, LIPID, TSH, CMP #### [facility] Laboratory [address] [place] [address] Dr. Judd Andrade TSHon 07-03-2022 TSH 1.037 uIU/mL Normal 0.358-3.740 [facility] Comment on above: Performed By: #### T 7, LIPID, TSH, CMP #### [facility] [address] [place] [address] Dr. Judd Andrade VITAMIN D 25 OHon 07-03-2022 VIT D 25-OH 32.8 ng/mL Normal [facility] Comment on above: Performed By: #### V ITAD, IRON #### [facility] Laboratory [address] [place] [address] Dr. Judd Andrade VIT D RANGES SEE BELOW Normal [facility] Comment on above: Result Comment: <20 ng/mL Vit D deficient 20 - <30 ng/mL Vit D insufficient 30 - 100 ng/mL Vit D sufficient >100 ng/mL Potential Toxicity Performed By: #### V ITAD, IRON #### [facility] [address] [place] [address] Dr. Judd Andrade BORDETELLA PERTUSSIS AB IGGo n 06-30-2022 B pertussis IgG Ab 3.88 index Invalid Interpretation Code 0.00-0.94 [facility] Comment on above: Result Comment: Clie nt Requested Flag Negative <0.95 Equivocal 0.95 - 1.04 Positive >1.04 Performed By: #### C BC #### [facility] [address] [place] [address] Dr. Judd Andrade BORDETELLA PERTUSSIS AB IGMo n 06-30-2022 B pertussis IgM Ab <1.0 Normal 0.0-0.9 [facility] Comment on above: Result Comment: Nega tive <1.0 Borderline 1.0 - 1.1 Positive >1.1 Performed By: #### Sara BOYD, CMP #### [facility] [address] [place] [address] Dr. Judd Andrade [id number] 2022 [id number] , Serum 158 mg/dL Normal 101-187 [facility] Comment on above: Performed By: #### C BC #### [facility] [address] [place] [address] Dr. Judd Andrade CBC AUTO DIFFon 06-03-2022 BASO # 0.0 103/ul Normal 0.0-0.1 [facility] Comment on above: Performed By: #### H DEB, CMP #### [facility] [address] [place] [address] Dr. Judd Andrade Basophils/100 WBC (Bld) 0.6 % Normal 0.2-2.0 [facility] Comment on above: Performed By: #### H DEB, CMP #### [facility] [address] [place] [address] Dr. Judd Andrade EO # 0.0 103/ul Normal 0.0-0.7 [facility] Comment on above: Performed By: #### H STROPN, CMP #### [facility] [address] [place] [address] Dr. Judd Andrade Eosinophils/100 WBC (Bld) 0.6 % Critically low 0.9-7.0 [facility] Comment on above: Performed By: #### H STROPN, CMP #### [facility] [address] [place] [address] Dr. Judd Andrade Erythrocyte distribution width (RBC) [Ratio] 13.5 % Normal 11.0-15.0 [facility] Comment on above: Performed By: #### H STROPN, CMP #### [facility] [address] [place] [address] Dr. Judd Andrade Hematocrit (Bld) [Volume fraction] 42.4 % Normal 36.0-48.0 [facility] Comment on above: Performed By: #### H STROPN, CMP #### [facility] [address] [place] [address] Dr. Judd Andrade Hemoglobin (Bld) [Mass/Vol] 13.4 g/dL Normal 12.0-16.0 [facility] Comment on above: Performed By: #### H STROPN, CMP #### [facility] [address] [place] [address] Dr. Judd Andrade IG # 0.01 10e3/ul Normal 0.00-0.03 [facility] Comment on above: Performed By: #### H STROPN, CMP #### [facility] [address] [place] [address] Dr. Judd Andrdae IG % 0.2 % Normal 0.0-0.5 [facility] Comment on above: Performed By: #### H STROPN, CMP #### [facility] [address] [place] [address] Dr. Judd Andrade LYMPH # 1.1 103/ul Critically low 1.2-3.8 [facility] Comment on above: Performed By: #### H STROPN, CMP #### [facility] [address] [address] [address] Judd Andrade Lymphocytes/100 WBC (Bld) 23.5 % Normal 20.5-60.0 [facility] Comment on above: Performed By: #### H STROPN, CMP #### [facility] [address] [address] [address] Judd Andrade MANUAL DIFF REQ NO Normal [facility] Comment on above: Performed By: #### H STROPN, CMP #### [facility] [address] [address] [address] Judd Andrade MCH (RBC) [Entitic mass] 28.9 pg Normal 26.7-34.0 [facility] Comment on above: Performed By: #### H STROPN, CMP #### [facility] [address] [place] [address] Dr. Judd Andrade MCHC (RBC) [Mass/Vol] 31.6 g/dL Normal 29.9-35.2 [facility] Comment on above: Performed By: #### H STROPN, CMP #### [facility] [address] [address] [address] Judd Andrade MCV (RBC) [Entitic vol] 91.6 fL Normal 81.0-99.0 [facility] Comment on above: Performed By: #### H STROPN, CMP #### [facility] [address] [address] [address] Judd Andrade MONO # 0.8 103/ul Normal 0.3-0.8 [facility] Comment on above: Performed By: #### H STROPN, CMP #### [facility] [address] [address] [address] Judd Andrade Monocytes/100 WBC (Bld) 16.5 % Critically high 1.7-12.0 [facility] Comment on above: Performed By: #### H STROPN, CMP #### [facility] [address] [place] [address] Dr. Judd Andrade NEUT # 2.7 103/ul Normal 1.4-6.5 [facility] Comment on above: Performed By: #### H STROPN, CMP #### [facility] [address] [place] [address] Dr. Judd Andrade Neutrophils/100 WBC (Bld) 58.6 % Normal 43.0-75.0 [facility] Comment on above: Performed By: #### H STROPN, CMP #### [facility] [address] [place] [address] Dr. Judd Andrade Platelet mean volume (Bld) [Entitic vol] 9.8 fL Normal 9.5-13.5 [facility] Comment on above: Performed By: #### H TERAPN, CMP #### [facility] [address] [place] [address] Dr. Judd Andrade PLT 252 103/ul Normal 150-450 [facility] Comment on above: Performed By: #### H TERAPN, CMP #### [facility] [address] [place] [address] Dr. Judd Andrade RBC 4.63 106/ul Normal 4.20-5.40 [facility] Comment on above: Performed By: #### H TERAPN, CMP #### [facility] [address] [place] [address] Dr. Judd Andrade WBC 4.7 103/ul Normal 4.0-11.0 [facility] Comment on above: Performed By: #### H TERAPN, CMP #### [facility] [address] [place] [address] Dr. Judd Andrade PROF 14(COMP METB)on 023 Albumin [Mass/Vol] 4.0 g/dL Normal 3.4-5.0 [facility] Comment on above: Performed By: #### H STROPN, CMP #### [facility] [address] [place] [address] Dr. Judd Andrade Albumin/Globulin [Mass ratio] 1.0 {ratio} Normal [facility] Comment on above: Performed By: #### H STROPN, CMP #### [facility] [address] [place] [address] Dr. Judd Andrade ALP [Catalytic activity/Vol] 77 U/L Normal 46-116 [facility] Comment on above: Performed By: #### H DEB, CMP #### [facility] [address] [address] [address] Judd Andrade ALT [Catalytic activity/Vol] 33 U/L Normal 14-59 [facility] Comment on above: Performed By: #### H DEB, CMP #### [facility] [address] [address] [address] Judd Andrade Anion gap [Moles/Vol] 8.0 mmol/L Normal [facility] Comment on above: Performed By: #### H DEB, CMP #### [facility] [address] [place] [address] Dr. Judd Andrade AST [Catalytic activity/Vol] 28 U/L Normal 15-37 [facility] Comment on above: Performed By: #### H DEB, CMP #### [facility] [address] [place] [address] Dr. Judd Andrade Bilirubin [Mass/Vol] 0.6 mg/dL Normal 0.2-1.0 [facility] Comment on above: Performed By: #### H DEB, CMP #### [facility] [address] [place] [address] Dr. Judd Andrade Calcium [Mass/Vol] 9.3 mg/dL Normal 8.5-10.1 [facility] Comment on above: Performed By: #### H DEB, CMP #### [facility] [address] [place] [address] Dr. Judd Andrade Chloride [Moles/Vol] 103 mmol/L Normal 98-107 [facility] Comment on above: Performed By: #### H DEB, CMP #### [facility] [address] [place] [address] Dr. Judd Andrade CO2 [Moles/Vol] 33.6 mmol/L Critically high 21.0-32.0 [facility] Comment on above: Performed By: #### H DEB, CMP #### [facility] [address] [address] [address] Judd Andrade Creatinine [Mass/Vol] 0.59 mg/dL Normal 0.55-1.02 [facility] Comment on above: Performed By: #### H DEB, CMP #### [facility] [address] [address] [address] Judd Andrade EGFR-AF NIGERIEN >60 Normal >=60 [facility] Comment on above: Performed By: #### H TERAPN, CMP #### [facility] [address] [address] [address] Judd Andrade EGFR-NON AF NIGERIEN >60 Normal >=60 [facility] Comment on above: Performed By: #### H TERAPN, CMP #### [facility] [address] [address] [address] Judd Andrade Globulin (S) [Mass/Vol] 4.0 g/dL Normal [facility] Comment on above: Performed By: #### H DEB, CMP #### [facility] [address] [address] [address] Judd Andrade Glucose [Mass/Vol] 130 mg/dL Critically high 74-106 [facility] Comment on above: Performed By: #### H DEB, CMP #### [facility] [address] [address] [address] Judd Andrade Potassium [Moles/Vol] 3.6 mmol/L Normal 3.5-5.1 [facility] Comment on above: Performed By: #### H TERAPN, CMP #### [facility] [address] [place] [address] Dr. Judd Andrade Protein [Mass/Vol] 8.0 g/dL Normal 6.4-8.[address] [facility] Comment on above: Performed By: #### H TERAPN, CMP #### [facility] [address] [address] [address] Judd Andrade Sodium [Moles/Vol] 141 mmol/L Normal 136-145 [facility] Comment on above: Performed By: #### H TERAPN, CMP #### [facility] [address] [address] [address] Judd Andrade Urea nitrogen [Mass/Vol] 8.0 mg/dL Normal 7.0-18.0 [facility] Comment on above: Performed By: #### H DEB, CMP #### [facility] [address] [address] [address] Judd Andrade Urea nitrogen/Creatinine [Mass ratio] 13.6 mg/mg Normal [facility] Comment on above: Performed By: #### H DEB, CMP #### [facility] [address] [address] [address] Judd Andrade TROPONIN, HIGH SENSITIVITYon 06-03-2022 HSTROP <4.0 Normal 4.0-51.3 [facility] Comment on above: Result Comment: CUT- OFF POINTS HAVE BEEN ESTABLISHED BASED ON THE FOURTH UNIVERSAL DEFINITIONS OF MYOCARDIAL INFARCTION. THE UPPER REFERENCE LIMIT (URL) OF TROPONIN, DEFINED THE 99TH PERCENTILE OF cTnI DISTRIBUTION IN A REFERENCE POPULATION, HAS BEEN CONFIRMED THE DECISION THRESHOLD FOR SD DIAGNOSIS. Performed By: #### H DEB, CMP #### [facility] [address] [place] [address] Dr. Judd Andrade XR CHEST 2 Von [...] LINDA RHODES Date: 2022-06-03 12:15 Normal [facility] Covid-19 PCR (CVDTBH)on SARS-CoV-2 (COVID-19) RNA JOLLY+probe Ql (Unsp spec) Not detected Normal NOT DETECTED [facility] Comment on above: Result Comment: This test is not yet approved or cleared by the [place] FDA. When there are no FDA-approved or cleared tests available, and other criteria are met, FDA can make tests available under an emergency access mechanism called an Emergency Use Authorization (EUA). The EUA for this test is supported by the Statistician of Health and Human Service's (HHS's) declaration [...] Performed By: #### H DEB, CMP #### [facility] [address] [place] [address] Dr. Judd Andrade INFLUENZA A AND B [facility] 06-02 [facility] SEE BELOW Normal [facility] Comment on above: Result Comment: Nega tive for Flu A protein angiten. Infection due to Flu A cannot be ruled out. Flu A angiten in the sample may be below the detection limit of the test. Performed By: #### H DEB, CMP #### [facility] [address] [place] [address] Dr. Judd Andrade [facility] SEE BELOW Normal [facility] Comment on above: Result Comment: Nega tive for Flu B protein antigen. Infection due to Flu B cannot be ruled out. Flu B antigen in the sample may be below the detection limit of the test. Performed By: #### H DEB, CMP #### [facility] [address] [place] [address] Dr. Judd Andrade INFLUENZA A AG Negative Normal NEGATIVE SEE COMMENT [facility] Comment on above: Performed By: #### H DEB, CMP #### [facility] [address] [place] [address] Dr. Judd Andrade INFLUENZA B AG Negative Normal NEGATIVE SEE COMMENT [facility] Comment on above: Performed By: #### H DEB, CMP #### [facility] [address] [place] [address] Dr[address] US ST HEAD_NECKon 02-11-2022 [...] by: GABO STRONG Date: 2022-02-11 16:24 Normal [facility] MG MAMM SCREEN 3D SUSANA CADon 02-10-2022 MG MAMM SCREEN 3D SUSANA CAD Patient: YULIA DORSEY Exam Date: 02/10/2022 : 1965 Gender:F Ordering : DR JOHN PORTER . Admission #: [id number] Family : Order #: [id number] CLICK HERE TO VIEW EXAM RADIOLOGY REPORT [...] breast cancer at age 40. LOCATION: [facility] BREAST COMPOSITION: Almost entirely fatty. [...] Strong M.D. on 02/11/2022 at 14:20 Normal [facility] XR CHEST 1 Von 01-15-2022 XR CHEST [...] KAREN VALDEZ Date: 2022-01-15 18:39 Normal [facility] CBC AUTO DIFFon 12-30-2021 BASO # 0.0 103/ul Normal 0.0-0.1 [facility] Comment on above: Performed By: #### C BC #### [facility] [address] [place] [address] Dr. Judd Andrade Basophils/100 WBC (Bld) 0.6 % Normal 0.2-2.0 [facility] Comment on above: Performed By: #### C BC #### [facility] [address] [place] [address] Dr. Judd Andrade EO # 0.1 103/ul Normal 0.0-0.7 [facility] Comment on above: Performed By: #### C BC #### [facility] [address] [place] [address] Dr. Judd Andrade Eosinophils/100 WBC (Bld) 2.1 % Normal 0.9-7.0 [facility] Comment on above: Performed By: #### C BC #### [facility] [address] [place] [address] Dr. Judd Andrade Erythrocyte distribution width (RBC) [Ratio] 13.0 % Normal 11.0-15.0 [facility] Comment on above: Performed By: #### C BC #### [facility] [address] [place] [address] Dr. Judd Andrade Hematocrit (Bld) [Volume fraction] 41.9 % Normal 36.0-48.0 [facility] Comment on above: Performed By: #### C BC #### [facility] [address] [place] [address] Dr. Judd Andrade Hemoglobin (Bld) [Mass/Vol] 13.7 g/dL Normal 12.0-16.0 [facility] Comment on above: Performed By: #### C BC #### [facility] [address] [place] [address] Dr. Judd Andrade IG # 0.03 10e3/ul Normal 0.00-0.03 [facility] Comment on above: Performed By: #### C BC #### [facility] [address] [place] [address] Dr. Judd Andrade IG % 0.6 % Critically high 0.0-0.5 [facility] Comment on above: Performed By: #### C BC #### [facility] [address] [place] [address] Dr. Judd Andrade LYMPH # 1.9 103/ul Normal 1.2-3.8 [facility] Comment on above: Performed By: #### C BC #### [facility] [address] [place] [address] Dr. Judd Andrade Lymphocytes/100 WBC (Bld) 34.5 % Normal 20.5-60.0 [facility] Comment on above: Performed By: #### C BC #### [facility] [address] [place] [address] Dr. Judd Andrade MANUAL DIFF REQ NO Normal [facility] Comment on above: Performed By: #### C BC #### [facility] [address] [place] [address] Dr. Judd Andrade MCH (RBC) [Entitic mass] 28.5 pg Normal 26.7-34.0 [facility] Comment on above: Performed By: #### C BC #### [facility] [address] [place] [address] Dr. Judd Andrade MCHC (RBC) [Mass/Vol] 32.7 g/dL Normal 29.9-35.2 [facility] Comment on above: Performed By: #### C BC #### [facility] [address] [place] [address] Dr. Judd Andrade MCV (RBC) [Entitic vol] 87.1 fL Normal 81.0-99.0 [facility] Comment on above: Performed By: #### C BC #### [facility] [address] [address] [address] Judd Andrade MONO # 0.6 103/ul Normal 0.3-0.8 [facility] Comment on above: Performed By: #### C BC #### [facility] [address] [place] [address] Dr. Judd Andrade Monocytes/100 WBC (Bld) 10.4 % Normal 1.7-12.0 [facility] Comment on above: Performed By: #### C BC #### [facility] [address] [place] [address] Dr. Judd Andrade NEUT # 2.8 103/ul Normal 1.4-6.5 [facility] Comment on above: Performed By: #### C BC #### [facility] [address] [place] [address] Dr. Judd Andrade Neutrophils/100 WBC (Bld) 51.8 % Normal 43.0-75.0 [facility] Comment on above: Performed By: #### C BC #### [facility] [address] [place] [address] Dr. Judd Andrade Platelet mean volume (Bld) [Entitic vol] 10.5 fL Normal 9.5-13.5 [facility] Comment on above: Performed By: #### C BC #### [facility] [address] [place] [address] Dr. Judd Andrade PLT 270 103/ul Normal 150-450 [facility] Comment on above: Performed By: #### C BC #### [facility] [address] [place] [address] Dr. Judd Andrade RBC 4.81 106/ul Normal 4.20-5.40 [facility] Comment on above: Performed By: #### C BC #### [facility] [address] [place] [address] Dr. Judd Andrade WBC 5.4 103/ul Normal 4.0-11.0 [facility] Comment on above: Performed By: #### C BC #### [facility] [address] [place] [address] Dr. Judd Andrade CRPon 12-30-2021 CRP [Mass/Vol] mg/L Normal <=1.0 [facility] Comment on above: Performed By: #### C BC #### [facility] [address] [place] [address] Dr. Judd Andrade PROF 14(COMP METB)on 022 Albumin [Mass/Vol] 3.9 g/dL Normal 3.4-5.0 [facility] Comment on above: Performed By: #### C BC #### [facility] [address] [place] [address] Dr. Judd Andrade Albumin/Globulin [Mass ratio] 1.0 {ratio} Normal [facility] Comment on above: Performed By: #### C BC #### [facility] [address] [place] [address] Dr. Judd Andrade ALP [Catalytic activity/Vol] 64 U/L Normal 46-116 [facility] Comment on above: Performed By: #### C BC #### [facility] [address] [place] [address] Dr. Judd Andrade ALT [Catalytic activity/Vol] 50 U/L Normal 14-59 [facility] Comment on above: Performed By: #### C BC #### [facility] [address] [place] [address] Dr. Judd Andrade Anion gap [Moles/Vol] 11.1 mmol/L Normal [facility] Comment on above: Performed By: #### C BC #### [facility] [address] [place] [address] Dr. Judd Andrade AST [Catalytic activity/Vol] 28 U/L Normal 15-37 [facility] Comment on above: Performed By: #### C BC #### [facility] [address] [place] [address] Dr. Judd Andrade Bilirubin [Mass/Vol] 0.5 mg/dL Normal 0.2-1.0 [facility] Comment on above: Performed By: #### C BC #### [facility] [address] [address] [address] Judd Andrade Calcium [Mass/Vol] 8.9 mg/dL Normal 8.5-10.1 [facility] Comment on above: Performed By: #### C BC #### [facility] [address] [address] [address] Judd Andrade Chloride [Moles/Vol] 101 mmol/L Normal 98-107 [facility] Comment on above: Performed By: #### C BC #### [facility] [address] [place] [address] Dr. Judd Andrade CO2 [Moles/Vol] 29.4 mmol/L Normal 21.0-32.0 [facility] Comment on above: Performed By: #### C BC #### [facility] [address] [place] [address] Dr. Judd Andrade Creatinine [Mass/Vol] 0.73 mg/dL Normal 0.55-1.02 [facility] Comment on above: Performed By: #### C BC #### [facility] [address] [place] [address] Dr. Judd Andrade EGFR-AF NIGERIEN >60 Normal >=60 [facility] Comment on above: Performed By: #### C BC #### [facility] [address] [place] [address] Dr. Judd Andrade EGFR-NON AF NIGERIEN >60 Normal >=60 [facility] Comment on above: Performed By: #### C BC #### [facility] [address] [place] [address] Dr. Judd Andrade Globulin (S) [Mass/Vol] 3.8 g/dL Normal [facility] Comment on above: Performed By: #### C BC #### [facility] [address] [place] [address] Dr. Judd Andrade Glucose [Mass/Vol] 139 mg/dL Critically high 74-106 [facility] Comment on above: Performed By: #### C BC #### [facility] [address] [place] [address] Dr. Judd Andrade Potassium [Moles/Vol] 3.5 mmol/L Normal 3.5-5.1 [facility] Comment on above: Performed By: #### C BC #### [facility] [address] [place] [address] Dr. Judd Andrade Protein [Mass/Vol] 7.7 g/dL Normal 6.4-8.[address] [facility] Comment on above: Performed By: #### C BC #### [facility] [address] [address] [address] Judd Andrade Sodium [Moles/Vol] 138 mmol/L Normal 136-[address] [facility] Comment on above: Performed By: #### C BC #### [facility] [address] [place] [address] Dr. Judd Andrade Urea nitrogen [Mass/Vol] 12.0 mg/dL Normal 7.0-18.0 [facility] Comment on above: Performed By: #### C BC #### [facility] [address] [place] [address] Dr. Judd Andrade Urea nitrogen/Creatinine [Mass ratio] 16.4 mg/mg Normal [facility] Comment on above: Performed By: #### C BC #### [facility] [address] [place] [address] Dr. Judd Andrade XR CHEST 2 Von [...] ARTEMIO DIXON Date: 2021-12-29 20:49 Normal [facility] TRYPTASEon 12-27-2021 Tryptase 4.5 ug/L Normal 2.2-13.2 [facility] Comment on above: Performed By: #### C BC #### [facility] [address] [place] [address] Dr. Judd Andrade CBC AUTO DIFFon 12-23-2021 BASO # 0.0 103/ul Normal 0.0-0.1 [facility] Comment on above: Performed By: #### H STROPN, CMP #### [facility] [address] [place] [address] Dr. Judd Andrade Basophils/100 WBC (Bld) 0.7 % Normal 0.2-2.0 [facility] Comment on above: Performed By: #### H STROPN, CMP #### [facility] [address] [place] [address] Dr. Judd Andrade EO # 0.0 103/ul Normal 0.0-0.7 [facility] Comment on above: Performed By: #### H STROPN, CMP #### [facility] [address] [place] [address] Dr. Judd Andrade Eosinophils/100 WBC (Bld) 0.0 % Critically low 0.9-7.0 [facility] Comment on above: Performed By: #### H STROPN, CMP #### [facility] [address] [place] [address] Dr. Judd Andrade Erythrocyte distribution width (RBC) [Ratio] 13.2 % Normal 11.0-15.0 [facility] Comment on above: Performed By: #### H STROPN, CMP #### [facility] [address] [place] [address] Dr. Judd Andrade Hematocrit (Bld) [Volume fraction] 42.1 % Normal 36.0-48.0 [facility] Comment on above: Performed By: #### H STROPN, CMP #### [facility] [address] [place] [address] Dr. Judd Andrade Hemoglobin (Bld) [Mass/Vol] 13.7 g/dL Normal 12.0-16.0 [facility] Comment on above: Performed By: #### H STROPN, CMP #### [facility] [address] [place] [address] Dr. Judd Andrade IG # 0.01 10e3/ul Normal 0.00-0.03 [facility] Comment on above: Performed By: #### H STROPN, CMP #### [facility] [address] [address] [address] Judd Andrade IG % 0.3 % Normal 0.0-0.5 [facility] Comment on above: Performed By: #### H DEB, CMP #### [facility] [address] [place] [address] Dr. Judd Andrade LYMPH # 0.7 103/ul Critically low 1.2-3.8 [facility] Comment on above: Performed By: #### H STROPN, CMP #### [facility] [address] [place] [address] Dr. Judd Andrade Lymphocytes/100 WBC (Bld) 24.1 % Normal 20.5-60.0 [facility] Comment on above: Performed By: #### H DEB, CMP #### [facility] [address] [place] [address] Dr. Judd Andrade MANUAL DIFF REQ NO Normal [facility] Comment on above: Performed By: #### H DEB, CMP #### [facility] [address] [place] [address] Dr. Judd Andrade MCH (RBC) [Entitic mass] 28.4 pg Normal 26.7-34.0 [facility] Comment on above: Performed By: #### H DEB, CMP #### [facility] [address] [place] [address] Dr. Judd Andrade MCHC (RBC) [Mass/Vol] 32.5 g/dL Normal 29.9-35.2 [facility] Comment on above: Performed By: #### H STROPN, CMP #### [facility] [address] [address] [address] Judd Andrade MCV (RBC) [Entitic vol] 87.2 fL Normal 81.0-99.0 [facility] Comment on above: Performed By: #### H TERAPN, CMP #### [facility] [address] [place] [address] Dr. Judd Andrade MONO # 0.5 103/ul Normal 0.3-0.8 [facility] Comment on above: Performed By: #### H STROPN, CMP #### [facility] [address] [address] [address] Judd Andrade Monocytes/100 WBC (Bld) 16.9 % Critically high 1.7-12.0 [facility] Comment on above: Performed By: #### H STROPN, CMP #### [facility] [address] [address] [address] Judd Andrade NEUT # 1.8 103/ul Normal 1.4-6.5 [facility] Comment on above: Performed By: #### H STROPN, CMP #### [facility] [address] [address] [address] Judd Andrade Neutrophils/100 WBC (Bld) 58.0 % Normal 43.0-75.0 [facility] Comment on above: Performed By: #### H STROPN, CMP #### [facility] [address] [place] [address] Dr. Judd Andrade Platelet mean volume (Bld) [Entitic vol] 9.9 fL Normal 9.5-13.5 [facility] Comment on above: Performed By: #### H STROPN, CMP #### [facility] [address] [address] [address] Judd Andrade PLT 210 103/ul Normal 150-450 [facility] Comment on above: Performed By: #### H STROPN, CMP #### [facility] [address] [place] [address] Dr. Judd Andrade RBC 4.83 106/ul Normal 4.20-5.40 [facility] Comment on above: Performed By: #### H STROPN, CMP #### [facility] [address] [place] [address] Dr. Judd Andrade WBC 3.1 103/ul Critically low 4.0-11.0 [facility] Comment on above: Performed By: #### H STROPN, CMP #### [facility] [address] [place] [address] Dr. Judd Andrade IRONon 12-23-2021 Iron [Mass/Vol] 35.0 ug/dL Critically low 50.0-170.0 [facility] Comment on above: Performed By: #### C BC #### [facility] [address] [place] [address] Dr. Judd Andrade PROF 14(COMP METB)on 022 Albumin [Mass/Vol] 3.9 g/dL Normal 3.4-5.0 [facility] Comment on above: Performed By: #### C BC #### [facility] [address] [place] [address] Dr. Judd Anrdade Albumin/Globulin [Mass ratio] 1.0 {ratio} Normal [facility] Comment on above: Performed By: #### C BC #### [facility] [address] [place] [address] Dr. Judd Andrade ALP [Catalytic activity/Vol] 70 U/L Normal 46-116 [facility] Comment on above: Performed By: #### C BC #### [facility] [address] [place] [address] Dr. Judd Andrade ALT [Catalytic activity/Vol] 43 U/L Normal 14-59 [facility] Comment on above: Performed By: #### C BC #### [facility] [address] [place] [address] Dr. Judd Andrade Anion gap [Moles/Vol] 11.5 mmol/L Normal [facility] Comment on above: Performed By: #### C BC #### [facility] [address] [place] [address] Dr. Judd Andrade AST [Catalytic activity/Vol] 33 U/L Normal 15-37 [facility] Comment on above: Performed By: #### C BC #### [facility] [address] [place] [address] Dr. Judd Andrade Bilirubin [Mass/Vol] 0.3 mg/dL Normal 0.2-1.0 [facility] Comment on above: Performed By: #### C BC #### [facility] [address] [place] [address] Dr. Judd Andrade Calcium [Mass/Vol] 8.9 mg/dL Normal 8.5-10.1 [facility] Comment on above: Performed By: #### C BC #### [facility] [address] [address] [address] Judd Andrade Chloride [Moles/Vol] 101 mmol/L Normal 98-107 [facility] Comment on above: Performed By: #### C BC #### [facility] [address] [address] [address] Judd Andrade CO2 [Moles/Vol] 31.1 mmol/L Normal 21.0-32.0 [facility] Comment on above: Performed By: #### C BC #### [facility] [address] [address] [address] Judd Andrade Creatinine [Mass/Vol] 0.69 mg/dL Normal 0.55-1.02 [facility] Comment on above: Performed By: #### C BC #### [facility] [address] [place] [address] Dr. Judd Andrade EGFR-AF NIGERIEN >60 Normal >=60 [facility] Comment on above: Performed By: #### C BC #### [facility] [address] [address] [address] Judd Andrade EGFR-NON AF NIGERIEN >60 Normal >=60 [facility] Comment on above: Performed By: #### C BC #### [facility] [address] [address] [address] Judd Andrade Globulin (S) [Mass/Vol] 3.8 g/dL Normal [facility] Comment on above: Performed By: #### C BC #### [facility] [address] [place] [address] Dr. Judd Andrade Glucose [Mass/Vol] 103 mg/dL Normal 74-106 [facility] Comment on above: Performed By: #### C BC #### [facility] [address] [address] [address] Judd Andrade Potassium [Moles/Vol] 3.6 mmol/L Normal 3.5-5.1 [facility] Comment on above: Performed By: #### C BC #### [facility] [address] [address] [address] Judd Andrade Protein [Mass/Vol] 7.7 g/dL Normal 6.4-8.[address] [facility] Comment on above: Performed By: #### C BC #### [facility] [address] [address] [address] Judd Andrade Sodium [Moles/Vol] 140 mmol/L Normal 136-[address] [facility] Comment on above: Performed By: #### C BC #### [facility] [address] [address] [address] Judd Andrade Urea nitrogen [Mass/Vol] 11.0 mg/dL Normal 7.0-18.0 [facility] Comment on above: Performed By: #### C BC #### [facility] [address] [place] [address] Dr. Judd Andrade Urea nitrogen/Creatinine [Mass ratio] 15.9 mg/mg Normal [facility] Comment on above: Performed By: #### C BC #### [facility] [address] [place] [address] Dr. Judd Andrade PROTIMEon 12-23-2021 INR Coag (PPP) [Relative time] 1.04 {INR} Normal [facility] Comment on above: Performed By: #### H DEB, CMP #### [facility] [address] [place] [address] Dr. Judd Andrade INR GUIDELINES SEE BELOW Normal [facility] Comment on above: Result Comment: PRIETO RED INR: 2.0 - 3.0 CONDITIONS NOT LISTED BELOW 2.5 - 3.5 FOR PROSTHETIC HEART VALVE REPLACEMENT 2.5 - 3.5 RECURRENT THROMBOSIS Performed By: #### H DEB, CMP #### [facility] [address] [place] [address] Dr. Judd Andrade PT Coag (PPP) [Time] 11.2 s Normal 9.0-11.6 [facility] Comment on above: Performed By: #### H DEB, CMP #### [facility] [address] [place] [address] Dr. Judd Andrade PTTon 12-23-2021 aPTT Coag (Bld) [Time] 31.5 s Normal 22.3-36.2 [facility] Comment on above: Performed By: #### H STROPN, CMP #### [facility] [address] [place] [address] Dr. Judd ELENA URINE PROFILEon 2 Bilirubin Ql (U) Negative Normal NEGATIVE [facility] Comment on above: Performed By: #### H STROPN, CMP #### [facility] [address] [address] [address] Judd Andrade Clarity (U) CLEAR Normal CLEAR [facility] Comment on above: Performed By: #### H STROPN, CMP #### [facility] [address] [place] [address] Dr. Judd Andrade Color (U) LT. YELLOW Normal YELLOW [facility] Comment on above: Performed By: #### H STROPN, CMP #### [facility] [address] [place] [address] Dr. Judd Andrade ERUAHRomina A micrscopic examination will be performed if indicated. Normal [facility] Comment on above: Performed By: #### H STROPN, CMP #### [facility] [address] [place] [address] Dr. Judd Andrade Glucose Ql (U) Negative Normal NEGATIVE [facility] Comment on above: Performed By: #### H STROPN, CMP #### [facility] [address] [place] [address] Dr. Judd Andrade Hemoglobin Ql (U) TRACE-INTACT Abnormal NEGATIVE [facility] Comment on above: Performed By: #### H STROPN, CMP #### [facility] [address] [place] [address] Dr. Judd Andrade Ketones Ql (U) Negative Normal NEGATIVE [facility] Comment on above: Performed By: #### H STROPN, CMP #### [facility] [address] [place] [address] Dr. Judd Andrade LEUKOCYTES Negative Normal NEGATIVE [facility] Comment on above: Performed By: #### H STROPN, CMP #### [facility] [address] [place] [address] Dr. Judd Andrade Nitrite Ql (U) Negative Normal NEGATIVE [facility] Comment on above: Performed By: #### H DEB, CMP #### [facility] [address] [place] [address] Dr. Judd Andrade pH (U) 6.0 [pH] Normal 5-9 [facility] Comment on above: Performed By: #### H TERAPN, CMP #### [facility] [address] [place] [address] Dr. Judd Andrade SPEC GRAVITY 1.005 Normal 1.005-<=1.025 [facility] Comment on above: Performed By: #### H DEB, CMP #### [facility] [address] [place] [address] Dr. Judd Andrade UA PROTEIN Negative Normal NEGATIVE/ TRACE [facility] Comment on above: Performed By: #### H DEB, CMP #### [facility] [address] [place] [address] Dr. Judd Andrade UR MICRO IND INDICATED Normal [facility] Comment on above: Performed By: #### H DEB, CMP #### [facility] [address] [place] [address] Dr. Judd Andrade Urobilinogen Qn (U) 0.2 {Carol'U}/dL Normal 0.2 - 1. 0 [facility] Comment on above: Performed By: #### H DEB, CMP #### [facility] [address] [place] [address] Dr. Judd Andrade URINE MICROSCOPIC ONLYon BACTERIA NONE SEEN Normal NONE SEEN [facility] Comment on above: Performed By: #### H DEB, CMP #### [facility] [address] [place] [address] Dr. Judd Andrade Bacteria identified Cx Nom (U) NOT INDICATED Normal [facility] Comment on above: Performed By: #### H DEB, CMP #### [facility] [address] [place] [address] Dr. Judd Andrade CAST NONE SEEN Normal NONE SEEN [facility] Comment on above: Performed By: #### H STROPN, CMP #### [facility] [address] [address] [address] Judd Andrade Crystals LM Nom (Urine sed) NONE SEEN Normal NONE SEEN [facility] Comment on above: Performed By: #### H STROPN, CMP #### [facility] [address] [address] [address] Judd Andrade Epithelial cells LM Ql (Urine sed) FEW Abnormal NONE SEEN /RARE [facility] Comment on above: Performed By: #### H STROPN, CMP #### [facility] [address] [address] [address] Jdud Andrade MUCOUS NONE SEEN Normal NONE SEEN [facility] Comment on above: Performed By: #### H STROPN, CMP #### [facility] [address] [place] [address] Dr. Judd Andrade RBC 0-2 Normal 0-2 [facility] Comment on above: Performed By: #### H STROPN, CMP #### [facility] [address] [place] [address] Dr. Judd Andrade WBC NONE SEEN Normal NONE SEEN [facility] Comment on above: Performed By: #### H STROPN, CMP #### [facility] [address] [place] [address] Dr. Judd Andrade Vital Signs Date Time Vital Sign Value Performing Clinician Facility 01-20-2024 12:02-040 Body mass index (BMI) [Ratio] 28.34 kg/m2 [employer] Work Phone: [facility] 01-20-2024 12:02040 Body weight 72.58 kg [employer] Work Phone: [facility] 01-20-2024 12:02-0400 Diastolic blood pressure 80 mm[Hg] [employer] Work Phone: [facility] 01-20-2024 12:02-0400 Systolic blood pressure 160 mm[Hg] [employer] Work Phone: [facility] 01-03-2024 13:11-0400 Body mass index (BMI) [Ratio] 28.17 kg/m2 Katie Yocasta DO Work Phone: [facility] 01-03-2024 13:11-0400 Body weight 72.12 kg Katie Yocasta DO Work Phone: [facility] 01-03-2024 13:11-0400 Diastolic blood pressure 70 mm[Hg] Katie Yocasta DO Work Phone: [facility] 01-03-2024 13:11-0400 Systolic blood pressure 120 mm[Hg] Katie Yocasta DO Work Phone: [facility] 12-30-2023 13:48-0400 Blood Pressure Location Bessie Galea [facility] 12-30-2023 13:48-0400 Diastolic blood pressure 82 mm[Hg] Bessie Galea [facility] 12-30-2023 13:48-0400 Heart rate 80 /min [facility] [facility] 12-30-2023 13:48-0400 Respiratory rate 16 /min Bessie Galea [facility] 12-30-2023 13:48-0400 Systolic blood pressure 117 mm[Hg] Bessie Galea [facility] 12-21-2023 11:47-0400 Body mass index (BMI) [Ratio] 27.99 kg/m2 Radha KAY Work Phone: [facility] 12-21-2023 11:47-0400 Body weight 71.67 kg Radha KAY Work Phone: [facility] 12-21-2023 11:47-0400 Diastolic blood pressure 78 mm[Hg] Radha KAY Work Phone: [facility] 12-21-2023 11:47-0400 Systolic blood pressure 118 mm[Hg] Radha KAY Work Phone: [facility] Healthcare Encounters Encounter Date Encounter Type Care Provider Facility Start: 11-16-2024 End: 11-16-2024 [facility] Start: 11-10-2024 End: 11-10-2024 [facility] Start: 11-02-2024 End: 11-02-2024 ambulatory [facility] Start: 10-26-2024 End: 10-26-2024 ambulatory [facility] Start: 10-18-2024 End: 10-18-2024 [facility] Start: 10-10-2024 End: 10-10-2024 [facility] Start: 10-05-2024 End: 10-05-2024 [facility] Start: 09-26-2024 End: 09-26-2024 [facility] Start: 09-15-2024 End: 09-15-2024 [facility] Start: 09-05-2024 End: 09-05-2024 Chart abstracting Scanning Provider External [facility] Start: 08-29-2024 End: 08-29-2024 ambulatory [facility] Start: 08-17-2024 End: 08-17-2024 [facility] Start: 08-08-2024 End: 08-08-2024 ambulatory [facility] Start: 07-03-2024 End: 07-03-2024 ambulatory [facility] Start: 06-19-2024 End: 06-19-2024 ambulatory [facility] Start: 06-06-2024 End: 06-06-2024 ambulatory [facility] Start: 05-30-2024 End: 05-30-2024 Clinisync Result Encounter Katie Yocasta DO Work Phone: [facility] Unsolicited Start: 05-30-2024 End: 05-30-2024 Clinisync Result Encounter Katie Yocasta DO Work Phone: [facility] Unsolicited Start: 05-29-2024 End: 05-29-2024 ambulatory [facility] Start: 05-22-2024 End: 05-22-2024 ambulatory [facility] Start: 05-08-2024 End: 05-08-2024 ambulatory [facility] Start: 01-20-2024 End: 01-20-2024 Bamboo flowsheet Katie [...] 01-07-2024 ambulatory MD John Porter Work Phone: [facility] Work Phone: Start: 01-07-2024 End: 01-07-2024 Departed Referred MD John Porter Work Phone: [facility] Path [facility] Start: 01-03-2024 End: 01-03-2024 Bamboo flowsheet [...] Available Start: 12-30-2023 End: 12-30-2023 ambulatory Bessie Gogn Facility:[facility] Start: 12-30-2023 End: 12-30-2023 Patient encounter procedure Bessie Gong [facility] Start: 12-29-2023 End: 12-29-2023 Phys/qhp telephone evaluation [...] External Result Encounter Radha KAY Work Phone: [facility] External Department Unsolicited Start: 12-21-2023 End: [...] response examination DR JOHN PORTER . [facility] Start: 06-26-2022 End: 06-27-2022 ambulatory [...] DO Work Phone: History of cholecystectomy A lysje Galdoreen Tonsillectomy Bessie Galea Plan of Treatment Date Care Activity Detail Author Start: 10-05-2032 DTaP,Tdap and Td Vac cines (2 - Td or Tdap) DTaP,Tdap and Td Vaccines (2 - Td or Tdap) [facility] Start: 12-25-2024 Influenza vaccination Influenza Vacc ine [facility] Start: 07-19-2024 End: 07-19-2024 Patient encounter procedure 07/19/2024 3:40 PM EDT Office Visit [facility] [address] [place] [address] Katie Rust, DO [address] [place] [address] [facility] Start: 01-07-2024 End: 01-07-2024 Patient encounter procedure 01/07/2024 9:00 AM EDT Procedure Visit [facility] Katie Rust, DO [address] [place] [address] [facility] Start: 01-03-2024 End: 01-03-2024 Patient encounter procedure [facility] Comment on above: Arrived Start: 12-29-2023 End: 12-29-2023 Patient encounter procedure [facility] Start: 08-19-2015 Administration of varicella zoster vaccine Zoster (Shingles) Vaccine (1 of 2) [facility] Start: 1986 Screening for malign ant neoplasm of cervix Pap Smear [facility] Start: 08-19-1983 Adult BMI Screening Adult BMI Screen ing [facility] Start: 1977 Depression Screening Depression Scre ening [facility] Start: 1977 Tobacco Screening Tobacco Screening [facility] CHLAMYDIA TRACHOMATI S (GENITO/STI) CHLAMYDIA TRACHOMATIS (GENITO/STI) Lab Routine Vaginal burning Vaginal itching Ordered: 12/21/2023 [facility] Comment on above: Ordered: 12/21/2023 Neisseria gonorrhoea e DNA [Presence] in Unspecified specimen by JOLLY with probe detection Neisseria gonorrhea DNA probe, direct Lab Routine Vaginal burning Vaginal itching Ordered: 12/21/2023 [facility] Healthcare Comment on above: Ordered: 12/21/2023 SURESWAB(R) ADVANCED VAGINITIS PLUS, TMA SURESWAB(R) ADVANCED VAGINITIS PLUS, TMA Pathology and Cytology Routine Vaginal burning Vaginal itching Ordered: 12/21/2023 [facility] Work Phone: Comment on above: Ordered: 12/21/2023 Immunizations Immunization Date Immunization Notes Care Provider Mukesh merritt 10-05-2022 tetanus toxoid, redu heide diphtheria toxoid, and acellular pertussis vaccine, adsorbed Bessie Galea [facility] Payers Date Payer Category Payer Self-pay [id number] 2023 Unknown [id number] 2022 Managed Care Other (unspecified) [employer] [id number] 2020 [facility] [id number]. [id number] 2020 Unknown FRONTPATH FRONTP ATH [id number] 2020-Present [phone] [address] [place] [address] 1.2.840.838202.1.13.693. 2.7.3.169545.315 1965 Unknown [id number] 2.16.840.1.737226.3.579. 2.593 1965 Unknown [id number] 2.16.840.1.422477.3.579. 2.593 1965 Unknown [id number] 2.16.840.1.774148.3.579. 2.593 1965 Unknown [id number] 2.16.840.1.050386.3.579. 2.593 1965 Unknown [id number] 2.16.840.1.188026.3.579. 2.593 1965 Unknown [id number] 2.16.840.1.661648.3.579. 2.593 1965 Unknown [id number] 2.16.840.1.078968.3.579. 2.593 1965 Unknown [id number] 2.16.840.1.591756.3.579. 2.593 1965 Unknown [id number] 2.16.840.1.140908.3.579. 2.593 1965 Unknown [id number] 2.16.840.1.789559.3.579. 2.593 1965 Unknown [id number] 2.16.840.1.613517.3.579. 2.593 1965 Unknown [id number] 2.16.840.1.191212.3.579. 2.593 1965 Unknown [id number] 2.16.840.1.077916.3.579. 2.593 1965 Unknown [id number] 2.16.840.1.444438.3.579. 2.593 1965 Unknown [id number] 2.16.840.1.605280.3.579. 2.593 1965 Unknown [id number] 2.16.840.1.746047.3.579. 2.593 1965 Unknown [id number] 2.16.840.1.281070.3.579. 2.593 1965 Unknown [id number] 2.16.840.1.305747.3.579. 2.593 1965 Unknown [id number] 2.16.840.1.238868.3.579. 2.593 1965 Unknown [id number] 2.16.840.1.195386.3.579. 2.593 1965 Unknown [id number] 2.16.840.1.006066.3.579. 2.593 1965 Unknown [id number] 2.16.840.1.594485.3.579. 2.593 1965 Unknown [id number] 2.16.840.1.435568.3.579. 2.59 1965 Unknown [id number] 2.16.840.1.189646.3.579. 2.593 1965 Unknown [id number] 2.16.840.1.230742.3.579. 2.1259 1965 Unknown [id number] 2.16.840.1.621040.3.579. 2.1259 1965 Unknown [id number] 2.16.840.1.488368.3.579. 2.125 1965 Unknown [id number] 2.16.840.1.150331.3.579. 2.1259 1965 Unknown [id number] 2.16.840.1.707814.3.579. 2.125 1965 Unknown [id number] 2.16.840.1.632677.3.579. 2.1259 1965 Unknown [id number] 2.16.840.1.787811.3.579. 2.727 1965 Unknown [id number] 2.16.840.1.122590.3.579. 2.128 1965 Unknown [id number] 2.16840.1.730022.3.579. 2.128 1965 Unknown [id number] 2.16.840.1.508042.3.579. 2.128 1965 Unknown [id number] 2.16840.1.345661.3.579. 2.1285 1965 Unknown [id number] 2.840.1.739697.3.579. 2.1285 1965 Unknown [id number] 2.840.1.184829.3.579. 2.1285 1965 Unknown [id number] 2.840.1.940835.3.579. 2.1285 1965 Unknown [id number] 2.16840.1.381827.3.579. 2.1285 1965 Unknown [id number] 2.16840.1.452597.3.579. 2.128 1965 Unknown [id number] 2.16840.1.315691.3.579. 2.1285 1965 Unknown [id number] 2.840.1.557108.3.579. 2.128 1965 Unknown [id number] 2.16840.1.107605.3.579. 2.1285 1965 Unknown [id number] 2.16.840.1.787161.3.579. 2.128 1965 Unknown [id number] 2.16840.1.077221.3.579. 2.1286 1965 Unknown [id number] 2.16.840.1.426401.3.579. 2.1286 1965 Unknown [id number] 2.16.840.1.053892.3.579. 2.1286 1965 Unknown [id number] 2.16.840.1.275857.3.579. 2.1286 1965 Unknown [id number] 2.16.840.1.633074.3.579. 2.1286 1959 Self-pay [id number] 1959 Unknown [id number] 1959 Unknown [id number] Unknown [id number] 2.16.840.1.988778.3.579. 2.531 Social History Date Type Detail Facility Start: 12-30-2022 End: 12-30-2023 Tobacco smoking status Ex-smoker (finding) [facility] Tobacco smoking status Never [facility] Start: 05-07-2020 End: 12-21-2023 Sex Assigned At Female [facility] Start: 09-05-2013 End: 09-11-2020 Tobacco smoking status NHIS Never smoked tobacco (finding) [facility] Start: 1965 Sex Assigned At Female F [facility] History of tobacco use Current smoker [facility] History of tobacco use Cigarette Smoker [facility] Start: 01-03-2024 End: 01-20-2024 Alcoholic beverage intake Lifetime non-drinker (finding) [facility] Start: 05-07-2020 End: 12-21-2023 History of Social function [facility] Start: 12-30-2022 Alcohol Comment Caffeine: none [facility] Start: 1965 Sex assigned at Not on file [facility] Start: 09-11-2020 Tobacco use and exposure Smokeless tobacco non-user [facility] Start: 11-29-2014 Sex Female (finding) [facility] Functional Status Date Assessment Result Facility 12-30-2023 Functional Status N/A [facility] Clinical Notes 12-21-2023 to 01-20-2024 Deepti Suzanne, SANITATION TECHNICIAN - 01/20/2024 11:50 AM EDLuis Palacios, NICOL - 01/03/2024 1:00 PM Carlos Buckley, NICOL - 12/29/2023 8:00 AM ELIZA Leggett - [...] 08/14/2013 Acute pelvic pain 10/28/2022 Anxiety state ([facility]/H[facility]) 08/14/2013 Bilateral tinnitus 10/28/2022 Cervical disc disorder 08/14/2013 Fibrocystic breast changes 10/28/2022 Generalized anxiety disorder ([facility]) 03/28/2019 Intermittent vertigo 04/26/2004 Irritable bowel syndrome 08/14/2013 Major depressive disorder, single episode, moderate (HCC) ([facility]) 03/28/2019 Meniere's disease 08/14/2013 Menopausal [...] nursing note reviewed. Exam conducted with a call center analyst present. Vitals: Estimated body mass index is 28.34 kg/m as calculated from the following: Height as of 23: 5' 3 . Weight as of this [...] by Deepti Palacios LPN on behalf of: Ktaie Rust DO documented in this encounter [facility] 01-03-2024 History of Presen t illness [...] 08/14/2013 Acute pelvic pain 10/28/2022 Anxiety state ([facility]/HCC) 08/14/2013 Bilateral tinnitus 10/28/2022 Cervical disc disorder 08/14/2013 Fibrocystic breast changes 10/28/2022 Generalized anxiety disorder ([facility]/HCC) 03/28/2019 Intermittent vertigo 04/26/2004 Irritable bowel syndrome 08/14/2013 Major depressive disorder, single episode, moderate (HCC) ([facility]) 03/28/2019 Meniere's disease 08/14/2013 Menopausal symptoms 11/17/2016 Menorrhagia 10/28/2022 Other specified hearing loss, right ear 02/25/2016 Pressure in head 04/26/2015 Psychological factors affecting medical condition 11/17/2016 Shoulder joint pain 10/28/2022 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) 11/17/2016 Thickened endometrium 10/28/2022 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 08/14/2013 Resolved Ambulatory Problems Diagnosis Date Noted No Resolved Ambulatory Problems Past Medical History: Diagnosis Date Anemia, iron deficiency Anxiety BMI 29.0-29.9,adult BPPV (benign paroxysmal positional vertigo), left Chronic bronchitis ([facility]/HCC) Chronic fatigue Chronic fibrocystic breast disease (FCBD) in female Chronic tonsillitis Dizziness DJD (degenerative joint disease) of cervical spine Encounter for screening mammogram for breast cancer 2019 Encounter to discuss procedure Caleb-Fox viral infection Fibrocystic breast disease IBS (irritable bowel syndrome) Migraines ([facility]/HCC) Pelvic pain Plantar fasciitis Viral hepatitis HISTORY [...] nursing note reviewed. Exam conducted with a call center analyst present. Vitals: Estimated body mass index is [...] reviewed, and patient is to proceed to [facility] OR. Follow Up: Patient is to follow up between 1-2 weeks post operative to assess proper healing and recovery from procedure. Documented by Deepti Palacios LPN on behalf of: Katie Rust DO documented in this encounter [facility] 12-30-2023 Hospital Discharg e instructions Patient [...] provider. Document Revised: 08/21/2021 Document Reviewed: 08/21/2021 [employer] Patient Education 2023 [employer]. Follow Up Care 12/02/2023 13:46:26 With:Farideh BARRERA, Bessie Modi, URL Address: When: Unknown Comments:pending imaging and after PFPT [facility] 12-30-2023 Note Patient Education Obstetrics and Gynecology [...] provider. Document Revised: 08/21/2021 Document Reviewed: 08/21/2021 [employer] Patient Education ? 2023 [employer]. [facility] 12-29-2023 History of Presen t illness Narrative Reason for Appointment: Patient ID: Yulia Dorsey is a 58 y.o. female who presents for Telehealth, UTI, and kidney stone Patient presents today via telephone call for a telehealth appointment. Patients Phone #: [phone] (mobile) Current Medications: has a current medication list which includes the following prescription(s): vitamin c, calcium carbonate, fgdxzsz-qdpizqwwz-lril, airborne elderberry, and multivitamin. Medical History: Active Ambulatory Problems Diagnosis Date Noted GERD (gastroesophageal reflux disease) 08/14/2013 Acute pelvic pain 10/28/2022 Anxiety state ([facility]) 08/14/2013 Bilateral tinnitus 10/28/2022 Cervical [...] calculated from the following: Height as of 3/29/23: 5' 3 . Weight as of 12/21/23: [...] Katie Rust DO documented in this encounter [facility] 12-21-2023 History of Presen t illness [...] 08/14/2013 Acute pelvic pain 10/28/2022 Anxiety state ([facility]) 08/14/2013 Bilateral tinnitus 10/28/2022 Cervical disc disorder 08/14/2013 Fibrocystic breast changes 10/28/2022 Generalized anxiety disorder ([facility]) 03/28/2019 Intermittent vertigo 04/26/2004 Irritable bowel syndrome 08/14/2013 Major depressive disorder, single episode, moderate (HCC) ([facility]) 03/28/2019 Meniere's disease 08/14/2013 Menopausal [...] of: ELIZA Mccollum documented in this encounter [facility] Evaluation + Plan note No data available for this section [facility] Evaluation note No assessment inform ation available [facility] Work Phone: Evaluation note Diagnosis Vaginal burning Other specified symptom associated with female genital organs Vaginal itching Pruritus of genital organs documented in this encounter [facility] HealthcareEvaluation note* Diagnosis Urinary tract infection without hematuria, site unspecified Vulvar irritation documented in this encounter [facility] HealthcareEvaluation note* Diagnosis Pre-op examination Yeast infection Thickened endometrium Nonspecific (abnormal) findings on radiological and other examination of genitourinary organs Pelvic pain documented in this encounter [facility] HealthcareEvaluation note* Diagnosis Postoperative visit S/P D&C (status post dilation and curettage) Other postprocedural status documented in this encounter [facility] HealthcareInstructionsNot on filedocumented in this [facility] No data available for this section [facility] Summary Purpose Family History No Family History Records Found Relationship Condition Age at Onset Recorded Date/T lópez father Heart disease Unknown mother Unknown History of stroke Unknown Advance Directives No Advanced Directives Records Found Advance Directive Response Recorded Date/ Time Advance Directives No July 15 11:52am Additional Source Comments INFORMATION SOURCE (unrecogn ized section and content) DATE CREATED AUTHOR 10/02/2022 [facility] DATE CREATED AUTHOR AUTHOR'S ORGANIZ ATION 01/04/2024 [facility] EPIC DATE CREATED AUTHOR AUTHOR'S ORGANIZ ATION 01/09/2024 [facility] DATE CREATED AUTHOR AUTHOR'S ORGANIZ ATION 01/14/2024 [facility] DATE CREATED AUTHOR AUTHOR'S ORGANIZ ATION 11/18/2024 [facility] Patient Care team informatio n (unrecognized section and content) Team Status: Active Member Role Status Dates John Porter MD Primary Care Provider Active Team Status: Inactive Member Role Status Dates John Porter MD Primary Care Provider Active Start: January 07, 2024 End: January 07, 2024 Katie Rust DO Attending Provider Active Start : January 07, 2024 End: January 07, 2024 Grease Cup Filler Relationship Specialty Start Date End Date John Porter MD [address] [place] [address] PCP - General 09/13/22 Grease Cup Filler Relationship Specialty Start Date End Date John Porter MD [address] [facility] [place] [address] PCP - General 09/13/22 Grease Cup Filler Relationship Specialty Start Date End Date John Porter MD [address] [facility] [place] [address] PCP - General 09/13/22 Grease Cup Filler Relationship Specialty Start Date End Date John Porter MD [address] [facility] [place] [address] PCP - General 09/13/22 Grease Cup Filler Relationship Specialty Start Date End Date John Porter MD [address] [facility] [place] [address] PCP - General 09/13/22 Grease Cup Filler Relationship Specialty Start Date End Date John Porter MD [address] [facility] [place] [address] PCP - General 09/13/22 Grease Cup Filler Relationship Specialty Start Date End Date John Porter MD [address] [facility] [place] [address] PCP - General 09/13/22 Grease Cup Filler Relationship Specialty Start Date End Date John [...] BE BASED ON THE PRIMARY CLINICAL RECORDS. [employer] [facility]. provides no warranty or guarantee of the accuracy or completeness of information in this document.
--- OUTSIDE RECORDS SUMMARY | 2024-12-04 11:45 | XMS_ITS ---
Author Organization [facility] in [place] Address [address] [place] [address] Care Team Providers Care Heating Technician Name Role Phone Prashant Porter Primary Care Provider REASON FOR VISIT yearly wellness exam Encounters Encounter Location Date Provider Diagnosis [address] [address] 12/04/2024 Prashant Porter Plan Of Treatment Next Appt Details Provider Name:Prashant Porter, 03:45:00 PM, [address] [place], [address], Progress Notes * WILLIANGen FLOYDJosefaOB:1965 ( 59 yo F)Acc No.[id number]:12/04/2024 UNLOCKED PROGRESS NOTE Progress Note Patient: Eugenia SANTOS [facility] :1965 A ge:59 Y S ex:Female Date:12/04/2024 Address[id number] Subjective: * Chief Complaints: * 1 . Yearly wellness exam. * Medical History: Objective: * Vitals: Assessment: Plan: * Treatment: * * Electronic signature of Prashant Porter MD, [id number] on 12/04/2024 at 07:30 AM EDT Sign off status: Pending Visit Status: P EN (Pending) * Provider: Romina Porter ([facility])MD Date: 12/04/2024 Generated for Joaquin verdin/Hortensia/Miki on: 12/04/2024 07:30 AM EDT
== END 2024-12-04 07:29 | disposition home or self-care (01) ==
LOC: LAB 07:29
PROVIDERS: PCP Family Medicine; Visit Provider Family Medicine
DX: E27.0 Other adrenocortical overactivity (principal)
CPT/HCPCS: 36415; 82533

== ENCOUNTER 2025-01-08 10:33 | Outpatient (OUT) | payer OTHER, SELFPAY ==
--- OUTSIDE RECORDS SUMMARY | 2025-01-08 10:36 | XMS_ITS | Clinical Summary ---
Author Organization [facility] tem Address [id number] [place] [address] Care Team Providers Care Junior Accounting Clerk Name Role Phone Estiven Porter MD Primary [...] organization. Date Type Department Care Team Description 01/03/2025 Travel 12/13/2024 Travel 12/04/2024 Travel 11/16/2024 Travel 11/10/2024 Travel 11/02/2024 Travel 10/26/2024 Travel 10/18/2024 Travel 10/10/2024 Travel from Last 3 Months Family History [...] got money to buy more. Never True 01/04/2025 Within the past 12 months th e food we bought just didn't last and we didn't have money to get more. Never True 01/04/2025 Purpose - Life Answer Date Recorded Purpose [...] 1:00 PM EDT Office Visit [facility] [address] [place] [address] Allyson Thomas MD [address] [place] [address] Health Maintenance Due Date Last Done Comments Depression Screening 1977 Tobacco Screening 1977 Adult BMI Screening 08/19/1983 Pap Smear 1986 Zoster (Shingles) Vaccine (1 of 2) 08/19/2015 Influenza Vaccine 12/25/2024 DTaP,Tdap and Td Vaccines (2 - Td or Tdap) 10/05/2032 10/05/2022 [employer] Not on file Insurance [employer] Care Teams Junior Accounting Clerk Relationship Specialty Start Date End Date Estiven Porter MD PCP - General Family Medicine 03/22/19
--- OUTSIDE RECORDS SUMMARY | 2025-01-08 10:36 | XMS_ITS | Encounter Summary ---
Author Organization [facility] Address [address] [facility] [place] [address] Care Team Providers Care Pastry Sous Chef Name Role Phone Estiven Porter MD Primary Care Provider [phone] Encounter Details Date Type Department Care Team (Late st Contact Info) Description 01/07/2024 Clinisync Result Encounter [facility] External Department Unsolicited Katie Rust, DO [address] [facility] [address] [place], [place] [id number] Social History Tobacco Use Types Packs/Day Years [...] Care Team (Late st Contact Info) Description 01/15/2025 2:00 PM EDT Evaluation [facility] [address] [place] [address] Stacy Jean, MISSY documented as of this encounter Procedures Procedure Name Priority Date/Time Associated Diagnosis Comments ECG 12-LEAD 01/07/2024 7:23 AM EDT documented in this encounter Results * ECG 12-LEAD (01/07/2024 7:23 AM EDT) Anatomical Region Laterality Modality Other 01/07/2024 7:23 AM EDT Narrative 01/07/2024 6:27 PM EDT The [place] [id number] Electrocardiograph Report Signed Patient: YULIA DORSEY MR#: [id number] : 1965 Acct:[id number] Age/Sex: 58 / F ADM Date: 01/07/24 Loc: SURGOUT Attending Dr: Katie Rust D.O. Ordering Physician: Katie Rust D.O. Date of Service: 01/07/24 Procedure(s): ECG 12 lead Accession Number(s): [id number] cc: The [facility] Test Date: 2024-01-07 Pat Name: YULIA DORSEY Department: Room: - Gender: Female Forestry Technician: : 1965 Requested By: KATIE RUST Order Number: [id number] Reading MD: VADIM GARCIA Measurements Intervals [place] Rate: 89 P: 73 AL: 162 QRS: -4 QRSD: 102 T: 70 QT: 384 QTc: 469 Interpretive Statements SINUS RHYTHM NONSPECIFIC ST T-WAVE ABNORMALITY Compared to ECG 07/19/2023 15:11:49 T-wave abnormality now present Electronically Signed On 01-07-2024 18:27:28 EDT by VADIM GARCIA Dictated By: Vadim Garcia D.O. Signed By: 01/07/24 1827 DD/ 0723 TD/TT: Account Resolution Specialist: Procedure Note Radiology, Radiologist, MD - 01/07/2024 [facility] [place] [id number] Electrocardiograph Report Signed Patient: YULIA DORSEY LMR#: [id number] : 1965Acct:[id number] Age/Sex: 58 / FADM Date: 01/07/24 Loc: SURGOUT Attending Dr: Katie Rust D.O. Ordering Physician: Katie Rust D.O. 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 Signed By:01/07/24 182 DD/ 2 TD/TT: Account Resolution Specialist: us Katie Rust DO [facility] Final Result documented in this encounter Visit Diagnoses Not on filedocumented in this encounter Care Teams Pastry Sous Chef Relationship Specialty Start Date End Date Estiven Porter MD PCP - General 09/13/22 documented as of this encounter
--- OUTSIDE RECORDS SUMMARY | 2025-01-08 10:36 | XMS_ITS | Encounter Summary ---
Author Organization [facility] Address [address] [place] [address] Care Team Providers Care Mailroom Manager Name Role Phone Estiven Porter MD Primary Care Provider [phone] Encounter Details Date Type Department Care Team (Late Contact Info) Description 09/15/2022 Orders Only [facility] [address] [place] [address] [place] [address] Deepti Palacios LPN Social History [...] Description 01/15/2025 2:00 PM EDT Evaluation [facility] [address] [place] [address] Stacy Jean PT documented as of this encounter Visit Diagnoses Not on filedocumented in this encounter Care Teams Mailroom Manager Relationship Specialty Start Date End Date Estiven Porter MD PCP - General 09/13/22 documented as of this encounter
--- OUTSIDE RECORDS SUMMARY | 2025-01-08 10:36 | XMS_ITS | Encounter Summary ---
Author Organization [employer] Address [id number] [address] [place] [address] Care Team Providers Care Nuclear Spectroscopist Name Role Phone Estiven Porter MD Primary Care Provider [phone] Encounter Details Date Type Department Care Team (Late st Contact Info) Description 09/05/2024 Orders Only [facility] [address] [place] [phone] Ref Prov, [place] [address] Social History Tobacco Use Types Packs/Day Years [...] [facility] [address] [place] [address] Allyson Thomas MD [address] [facility] [place] [address] documented as of this encounter Procedures Procedure Name Priority Date/Time Associated Diagnosis Comments MULTIPLE LABS Routine 09/05/2024 1:53 PM EDT documented in this encounter Results * Multiple labs (09/05/2024 1:53 PM EDT) us Not In System Ref Prov [facility] Final Res ult documented in this encounter Visit Diagnoses Not on filedocumented in this encounter Care Teams Nuclear Spectroscopist Relationship Specialty Start Date End Date Estiven Porter MD PCP - General Family Medicine 03/22/19 documented as of this encounter
--- OUTSIDE RECORDS SUMMARY | 2025-01-08 10:36 | XMS_ITS | Encounter Summary ---
Author Organization [employer] Address [id number] [address] [place] [address] Care Team Providers Care Telephony Engineer Name Role Phone Estiven Porter MD Primary Care Provider [phone] Encounter Details Date Type Department Care Team (Latest Contact Info) Description 01/03/2025 Travel Social History Tobacco Use Types Packs/Day [...] [facility] [address] [place] [address] Allyson Thomas MD [address] [facility] [address] [place] [address] documented as of this encounter Visit Diagnoses Not on filedocumented in this encounter Care Teams Telephony Engineer Relationship Specialty Start Date End Date Estiven Porter MD PCP - General Family Medicine 03/22/19 documented as of this encounter
--- OUTSIDE RECORDS SUMMARY | 2025-01-08 10:36 | XMS_ITS | Encounter Summary ---
Author Organization [facility] Address [address] [place] [address] Care Team Providers Care Cashier And Waiter/Waitress Name Role Phone Estiven Porter MD Primary Care Provider [phone] Encounter Details Date Type Department Care Team (Late st Contact Info) Description 09/22/2022 Clinisync Result Encounter [facility] External Department Unsolicited Katie Rust, DO [address] [facility] [address] [place], [place] [phone] Social History Tobacco Use Types Packs/Day Years [...] Physical Therapy [address] [place] [address] Stacy Jean, MISSY documented as of this [...] : DR KATIE RUST . Admission #: [id number] Family : Order #: [id number] CLICK HERE TO VIEW EXAM RADIOLOGY REPORT [...] breast cancer at age 40. LOCATION: The [facility] BREAST COMPOSITION: Almost entirely fatty. FINDINGS: [...] : DR KATIE RUST . Admission #: [id number] Family : Order #: [id number] CLICK HERE TO VIEW EXAM RADIOLOGY REPORT [...] breast cancer at age 40. LOCATION: The [facility] BREAST COMPOSITION: Almost entirely fatty. FINDINGS: [...] on filedocumented in this encounter Care Teams Cashier And Waiter/Waitress Relationship Specialty Start Date End Date Estiven Porter MD PCP - General 09/13/22 documented as of this encounter
--- OUTSIDE RECORDS SUMMARY | 2025-01-08 10:36 | XMS_ITS | Encounter Summary ---
Author Organization [facility] Address [address] [place] [address] Care Team Providers Care Fried Cake Maker Name Role Phone John White MD Primary Care Provider [phone] Encounter Details Date Type Department Care Team (Late st Contact Info) Description 07/19/2023 Clinisync Result Encounter [facility] External Department Unsolicited Katie Rust, DO [address] [facility] [address] [place], [place] [address] Social History Tobacco Use Types Packs/Day Years [...] Physical Therapy [address] [place] [address] Stacy Jean, MISSY documented as of this encounter Procedures Procedure Name Priority Date/Time Associated Diagnosis Comments ECG 12-LEAD 07/19/2023 3:11 PM EDT documented in this encounter Results * ECG 12-LEAD (07/19/2023 3:11 PM EDT) Anatomical Region Laterality Modality Other 07/19/2023 3:11 PM EDT Narrative 07/21/2023 9:13 AM EDT The [address] [address] Electrocardiograph Report Signed Patient: YULIA DORSEY MR#: [id number] : 1965 Acct:[id number] Age/Sex: 57 / F ADM Date: 07/19/23 Loc: PST Attending Dr: Katie Rust D.O. Ordering Physician: Katie Rust D.O. Date of Service: 07/19/23 Procedure(s): ECG 12 lead Accession Number(s): [id number] cc: The [facility] Test Date: 2023-07-19 Pat Name: YULIA DORSEY Department: Room: - Gender: Female General Service Officer: : 1965 Requested By: KATIE RUST Order Number: [id number] Reading MD: JOHN WHITE Measurements Intervals [place] Rate: 70 P: 63 LA: 156 QRS: 5 QRSD: 99 T: 60 QT: 408 QTc: 440 Interpretive Statements SINUS RHYTHM POSSIBLE RIGHT VENTRICULAR CONDUCTION DELAY [RSR (QR) IN V1/V2] Compared to ECG 05/16/2018 10:49:06 Right bundle-branch block no longer present Electronically Signed On 07-21-2023 9:13:13 EDT by JOHN WHITE Dictated By: John White M.D. Signed By: 07/21/23 0913 DD/ 1511 TD/TT: Carbon Furnace Operator Helper: Procedure Note Radiology, Radiologist, MD - 07/21/[address] [address] Electrocardiograph Report Signed Patient: YULIA DORSEY LMR#: [id number] : 1965Acct:[id number] Age/Sex: 57 / FADM Date: 07/19/23 Loc: PST Attending Dr: Katie Rust D.O. Ordering Physician: Yocasta,Katie D.O. Date of Service: 07/19/23 Procedure(s): ECG 12 lead Accession Number(s): [id number] cc: The [facility] Test Date: 2023-07-19 Pat Name: YULIA DORSEY Department: Room: - Gender: Female General Service Officer: : 1965 Requested By: KATIE RUST Order Number: [id number] Reading MD: JOHN WHITE Measurements Intervals [place] Rate: 70 P: 63 LA: 156 QRS: 5 QRSD: 99 T: 60 QT: 408 QTc: 440 Interpretive Statements SINUS RHYTHM POSSIBLE RIGHT VENTRICULAR CONDUCTION DELAY [RSR (QR) IN V1/V2] Compared to ECG 05/16/2018 10:49:06 Right bundle-branch block no longer present Electronically Signed On 07-21-2023 9:13:13 EDT by JOHN WHITE Dictated By: John White M.D. Signed By:07/21/23 0913 DD/ 1511 TD/TT: Carbon Furnace Operator Helper: us Katie Rust DO [facility] Final Result documented in this encounter Visit Diagnoses Not on filedocumented in this encounter Care Teams Fried Cake Maker Relationship Specialty Start Date End Date John White MD PCP - General 09/13/22 documented as of this encounter
--- OUTSIDE RECORDS SUMMARY | 2025-01-08 10:36 | XMS_ITS | Clinical Summary ---
Author Organization [facility] Address [address] [place] [address] Care Team Providers Care Grain Merchandiser Name Role Phone Estiven Porter MD Primary Care Provider [phone] Allergies Active Allergy Reactions Criticality Noted Date [...] without hepatic coma 08/14/2013 Intermittent vertigo 04/26/2004 Encounters Date Type Department Care Team Description 01/03/2025 Telephone [facility] [address] [facility] [address] [place] [address] Stacy Jean, PT RS PT Janessa from Last 3 Months Family History Medical [...] Therapy [address] [place] [phone] Stacy Jean, MISSY Insurance [employer] Care Teams Grain Merchandiser Relationship Specialty Start Date End Date Estiven Porter MD PCP - General 09/13/22
--- OUTSIDE RECORDS SUMMARY | 2025-01-08 10:36 | XMS_ITS | Encounter Summary ---
Author Organization [facility] Address [address] [place] [address] Care Team Providers Care Spray Crew Name Role Phone Estiven Porter MD Primary Care Provider [phone] Encounter Details Date Type Department Care Team (Late st Contact Info) Description 07/13/2023 Clinisync Result Encounter [facility] External Department Unsolicited Katie Rust, DO [address] [facility] [address] [place], [place] [address] Social History Tobacco Use Types Packs/Day Years [...] Physical Therapy [address] [place] [address] Stacy Jean, PT documented as of this encounter Procedures Procedure Name Priority Date/Time Associated Diagnosis Comments US PELVIS W/ TRANSVAGINAL 07/13/2023 7:18 AM EDT documented in this encounter Results * US PELVIS W/ TRANSVAGINAL (07/13/2023 7:18 AM EDT) Anatomical Region Laterality Modality Other 07/13/2023 7:18 AM EDT Narrative 07/13/2023 7:20 AM EDT [address] [address] Ultrasound Report Signed Patient: YULIA DORSEY MR#: [id number] : 1965 Acct:[id number] Age/Sex: 57 / F ADM Date: 07/12/23 Loc: US Attending Dr: Katie Rust D.O. Ordering Physician: Katie Rust D.O. Date of Service: 07/12/23 Procedure(s): US pelvis w/ transvaginal Accession Number(s): [id number] cc: Katie Rust D.O.; Estiven Porter M.D. The [address] [address] Patient Name: YULIA DORSEY MRN: [id number] date: 1965 Sex: F Assigned Patient Location: US Current Patient Location: Accession/Order Number: [id number] Exam Date: 07/12/2023 16:50 Report Date: 07/13/2023 [...] M.D. Signed By: 07/13/23719 DD/ 7 TD/TT: Player Development Manager: Procedure Note Radiology, Radiologist, - 07/13/2023 [place] [address] Ultrasound Report Signed Patient: YULIA DORSEY LMR#: [id number] : 1965Acct:[id number] Age/Sex: 57 / FADM Date: 07/12/23 Loc: US Attending Dr: Katie Rust D.O. Ordering Physician: Katie Rust D.O. Date of Service: 07/12/23 Procedure(s): US pelvis w/ transvaginal Accession Number(s): [id number] cc: Katie Rust D.O.; Estiven Porter M.D. The [place] [id number] Patient Name: YULIA DORSEY MRN: [id number] date: 1965 Sex: F Assigned Patient Location: US Current Patient Location: Accession/Order Number: [id number] Exam Date: 07/12/2023 16:50 Report Date: 07/13/2023 [...] Alvarez M.D. Signed By:07/13/23719 DD/ 7 TD/TT: Player Development Manager: us Katie Yocasta DO [facility] Final Result documented in this encounter Visit Diagnoses Not on filedocumented in this encounter Care Teams Spray Crew Relationship Specialty Start Date End Date Estiven Porter MD PCP - General 09/13/22 documented as of this encounter
--- OUTSIDE RECORDS SUMMARY | 2025-01-08 10:36 | XMS_ITS | Encounter Summary ---
Author Organization [facility] Address [address] [place] [address] Care Team Providers Care Chick Grader Name Role Phone Estiven Porter MD Primary Care Provider [phone] Reason for Visit * Reason Onset Date Comments RS PT Eval 01/03/2025 Encounter Details Date Type Department Care Team (Late st Contact Info) Description 01/03/2025 Telephone [facility] [address] [place] [address] Stacy Jean, PT RS PT Eval Social History Tobacco Use Types Packs/Day Years [...] on file documented as of this encounter Miscellaneous Notes * Telephone Encounter - Leonila Stephenson - 01/03/2025 9:59 AM EDT She called noting she has an appt conflict today; her appt prior usually lasts around an hour long and does not feel able to get here in time. I offered the soonest available to rs; but it was to early. Next PT is 01/15; and that will be her PT Eval @ 2:00. documented in this encounter Plan of Treatment Upcoming Encounters Date Type Department Care Team (Late st Contact Info) Description 01/15/2025 2:00 PM EDT Evaluation [facility] [address] [facility] [address] [place] [address] Stacy Jean, MISSY documented as of this encounter Visit Diagnoses Not on filedocumented in this encounter Care Teams Chick Grader Relationship Specialty Start Date End Date Estiven Porter MD PCP - General 09/13/22 documented as of this encounter
--- OUTSIDE RECORDS SUMMARY | 2025-01-08 10:36 | XMS_ITS | Encounter Summary ---
Author Organization [facility] Address [address] [place] [address] Care Team Providers Care Marketing Data Specialist Name Role Phone Estiven Porter MD Primary Care Provider [phone] Encounter Details Date Type Department Care Team (Late st Contact Info) Description 09/22/2022 Clinisync Result Encounter [facility] External Department Unsolicited Katie Rust, DO [address] [facility] [place] [address] Social History Tobacco Use Types [...] Physical Therapy [address] [place] [address] Stacy Jean, MISSY documented as of this [...] : DR KATIE RUST . Admission #: [id number] Family : Order #: [id number] CLICK HERE TO VIEW EXAM RADIOLOGY REPORT [...] cancer at age 40. LOCATION: The [facility] BREAST COMPOSITION: Almost entirely fatty. [...] at 15:03 Procedure Note Radiology, Radiologist, - 09/22/2022 Patient: YULIA DORSEY Exam Date: 09/22/2022 : 1965 Gender:F Ordering : DR KATIE RUST . Admission #: [id number] Family : Order #: [id number] CLICK HERE TO VIEW EXAM RADIOLOGY REPORT [...] cancer at age 40. LOCATION: [facility] BREAST COMPOSITION: Almost entirely fatty. [...] on filedocumented in this encounter Care Teams Marketing Data Specialist Relationship Specialty Start Date End Date Estiven Porter MD PCP - General 09/13/22 documented as of this encounter
--- OUTSIDE RECORDS SUMMARY | 2025-01-08 10:54 | XMS_ITS | CCD ---
Author Organization [facility] Care Team Providers [employer] Name Role Phone ABELINOY ., DR LOPEZ [...] ., DR LOPEZ Admitting Unavailable ZIEBER, DR MAGED Henley Consulting Unavailable HOY ., DR LOPEZ [...] DR LOPEZ Primary Care Unavailable ZIEBER, DR MAGED Henley Consulting Unavailable YOCASTA ., DR WILSON Admitting Unavailable YOCASTA ., DR WILSON Attending Unavailable YOCASTA ., DR WILSON Consulting Unavailable HOY ., DR LOPEZ Primary Care Unavailable ZIEBER, DR MAGED Henley Consulting Unavailable HOY ., DR LOPEZ [...] Unavailable YOCASTA ., DR WILSON Attending Unavailable FRESNO, DR ELLYN Dougherty Consulting Unavailable HOY ., [...] Consulting Unavailable German, John Primary Care Physician STACY JEAN Attending Unavailable RALF RENDON Referring Unavailable YOCASTA, TAHIR Attending Unavailable YOCASTA, TAHIR Attending Unavailable YOCASTA, TAHIR Attending Unavailable RADHA TINSLEY Attending Unavailable YOCASTA, TAHIR Attending Unavailable MD John Porter Primary Care Provider DO Tahir Rust Attending Provider Bessie Gong Attending Unavailable Hoy, John M Primary Care Unavailable Yocasta, Tahir Attending Unavailable Yocasta, Tahir Admitting Unavailable John Porter MD Primary Care Provider [phone] John Porter MD Primary Care Provider [phone] John Portre MD Primary Care Provider [phone] IRIS GABRIEL Attending Unavailable HOY, JOHN M [...] source) Azithromycin Drug Allergy 12-21-19 22 [facility] Repository (4 sources) Imipramine; Translations: [IMIPRAMINE] Drug Allergy 10-06-19 13 [facility] Repository (2 sources) Sulfonamides (Antibiotic) Drug allergy (disorder) 10-06-19 13 [facility] Repository (2 sources) E.E.S. Drug allergy (disorder) 10-06-19 13 [facility] Repository (19 sources) Erythromycin; Translations: [erythromycin] Drug Allergy 02-25-20 16 Unknown (qualifier value), Other [facility] (18 sources) Imipramine; Translations: [imipramine] Drug Allergy 02-25-20 16 Unknown (qualifier value), Other [facility] (2 sources) Sulfonamides (Antibiotic); Translations: [sulfa drugs] Drug allergy Unknown (qualifier value) [facility] (4 sources) Sulfonamides (Antibiotic); Translations: [Sulfa (Sulfonamide Antibiotics)] Allergy to substance 09-12-19 [facility] (17 sources) erythromycin base; Translations: [erythromycin base] Allergy to substance 12-02-19 [facility] (1 source) Imipramine Drug Allergy 12-02-19 [facility] Repository (15 sources) Sulfonamides (Antibiotic) Drug Intolerance 02-25-20 [facility] (4 sources) Ciprofloxacin Drug Allergy 01-20-20 [facility] Healthcare Medications Current Medications Medication Drug Class(es) Dates Sig (Normalized) Sig (Original) ascorbic acid 500 mg oral capsule (15 sources) Vitamin C Ascorbic Acid (Vitamin C) 500 MG capsule as directed Orally Active calcium carbonate 1500 mg oral tablet (15 sources) calcium carbonat e 1500 (600 Ca) MG tablet every 12 (twelve) hours. Active CALCIUM MAGNESIUM ZINC PO (15 sources) take 1 tablet by mouth in [...] Misc Natural Products (Airborne Elderberry) chewable tablet (15 sources) Misc Natural Products (Airborne Elderberry) chewable tablet as directed Orally Active Multiple Vitamin (multivitamin) capsule (15 sources) take 1 capsule by mouth in [...] pulmonary disease, unspecified; Translations: [COPD UNSPECIFIED] Onset: Chronic Conditions associated with dizziness or vertigo (16 sources) Meniere's disease; Translations: [Meniere's disease, unspecified ear] Onset: 4 12-30-2023 Chronic Deficiency and other anemia (1 source) Anemia, unspecified; Translations: [ANEMIA UNSPECIFIED] Onset: 3 Episodic Deficiency and other anemia (1 source) Anemia 11-05-2018 Episodic Diabetes mellitus without complication (1 source) Other abnormal glucose; Translations: [OTHER ABNORMAL GLUCOSE] Onset: 3 Episodic Esophageal disorders (16 sources) Gastroesophageal reflux disease; Translations: [Gastro-esophageal reflux [...] (1 source) Migraine 11-05-2018 Chronic Menopausal disorders (15 sources) Menopausal symptom; Translations: [Menopausal and female climacteric states] Onset: 7 10-28-2022 Chronic Menstrual disorders (16 sources) Excessive and frequent menstruation with regular cycle; Translations: [Menorrhagia] Onset: 2 10-28-2022 Chronic Miscellaneous mental health disorders (20 sources) Psychosomatic factor in physical condition; Translations: [Psychological and behavioral factors associated with disorders or diseases classified elsewhere] Onset: 7 10-28-2022 Chronic Mood disorders (18 sources) Depressive disorder; Translations: [Moderate major depression, single episode] Onset: 9 11-05-2018 Chronic Nonmalignant breast conditions (15 sources) Fibrocystic disease of breast; Translations: [Diffuse [...] Chronic Other ear and sense organ disorders (15 sources) Hearing loss of right ear; Translations: [Other specified hearing loss, right ear] Onset: 6 10-28-2022 Chronic Other gastrointestinal disorders (15 sources) Irritable bowel syndrome; Translations: [Irritable bowel [...] Spondylosis; intervertebral disc disorders; other back problems (15 sources) Cervical disc disorder; Translations: [Cervical disc [...] Problem Date Documented Date Episodic/Chronic Abdominal pain (17 sources) Acute pelvic pain; Translations: [Pelvic and perineal pain] Onset: 10-28-2022 10-28-2022 Episodic Cardiac dysrhythmias (4 sources) Palpitations; Translations: [PALPITATIONS] Onset: 06-03-2022 Episodic Conditions associated with dizziness or vertigo (15 sources) Intermittent vertigo; Translations: [Dizziness and giddiness] Onset: 04-26-2004 10-28-2022 Episodic Deficiency and other anemia (1 source) Iron deficiency anemia, unspecified; Translations: [IRON DEFICIENCY ANEMIA UNSPECIFIED] Onset: 12-24-2021 Episodic Fluid and electrolyte disorders (4 sources) Dehydration; Translations: [DEHYDRATION] Onset: 12-24-2021 Episodic Headache; including migraine (15 sources) Headache; Translations: [Pressure in head] Onset: 04-26-2015 10-28-2022 Episodic Hepatitis (15 sources) 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; Translations: [Unspecified viral hepatitis without hepatic coma] Onset: 08-14-2013 10-28-2022 Episodic Malaise and fatigue (1 source) Other fatigue; Translations: [OTHER FATIGUE] Onset: 06-05-2022 Episodic Mycoses (2 sources) Mycosis; Translations: [Candidiasis, unspecified] 01-03-2024 Episodic Other aftercare (4 sources) Other medical terminologist (current) drug therapy; Translations: [OTH GROUP HOME CURRENT DRUG THERAPY] Onset: 12-23-2021 Episodic Other circulatory disease (1 source) Other specified symptoms and signs involving the circulatory and respiratory systems; Translations: [OTH SPEC SX SIGNS INVLV CIRC RS] Onset: 06-05-2022 Episodic Other ear and sense organ disorders (15 sources) Bilateral tinnitus; Translations: [Tinnitus, bilateral] Onset: [...] Wheezing; Translations: [WHEEZING] Onset: 01-15-2022 Episodic Other nervous system disorders (1 source) Impairment of balance; Translations: [Other abnormalities of gait and mobility] Onset: 08-14-2024 08-14-2024 Episodic Other non-traumatic joint disorders (15 sources) Shoulder joint pain; Translations: [Pain in [...] MALIG NEOPLASM OF BREAST] Onset: 02-13-2022 Episodic Spondylosis; intervertebral disc disorders; other back problems (1 source) Neck pain; Translations: [Cervicalgia] Onset: 08-14-2024 08-14-2024 Episodic Unclassified (1 source) CONTACT W/AND (SUSP) EXPOS COVID-19; Translations: [CONTACT W/AND (SUSP) EXPOS COVID-19] Onset: 06-02-2022 Results Test Name Value Interpretation Reference Range Facility MM TOMOSYNTHESIS SCREENING B Ion 05-30-2024 [place] [address] Mammography Report Signed Patient: EUGENIA DORSEY MR#: [id number] : 1965 Acct:[id number] Age/Sex: 58 / F ADM Date: 05/30/24 Loc: MAMMO Attending Dr: Tahir Rust D.O. Ordering Physician: Tahir Rust D.O. Results: Date of Service: 05/30/24 Follow Up: Procedure(s): MM tomosynthesis screening BI Accession Number(s): [id number] cc: Tahir Rust D.O.; John Porter M.D. Patient Name: EUGENIA DORSEY MR#: [id number] : 1965 Exam Date: 05/30/2024 Ordering Doctor: DR Tahir Rust . RADIOLOGY REPORT PROCEDURE: MM TOMOSYNTHESIS [...] breast cancer at age 40. LOCATION: [facility] BREAST COMPOSITION: The breasts are almost [...] PALPABLE LUMP SHOULD BE BIOPSIED. Dictated by: Maged Strong M.D. on 05/30/2024 at 16:32 Approved by: Maged Strong M.D. on 05/30/2024 at 16:34 Dictated By: Maged Strong M.D. Signed By: 05/30/24 1635 DD/ 163 TD/TT: Sliver Lap Tender: [facility] Radiology, Radiologist, MD - 05/30/2024 [place] [address] Mammography Report Signed Patient: EUGENIA DORSEY MR#: [id number] : 1965 Acct:[id number] Age/Sex: 58 / F ADM Date: 05/30/24 Loc: MAMMO Attending Dr: Tahir Rust D.O. Ordering Physician: Tahir Rust D.O. Results: Date of Service: 05/30/24 Follow Up: Procedure(s): MM tomosynthesis screening BI Accession Number(s): [id number] cc: Tahir Rust D.O.; John Porter M.D. Patient Name: EUGENIA DORSEY MR#: [id number] : 1965 Exam Date: 05/30/2024 Ordering Doctor: DR Tahir Rust . RADIOLOGY REPORT PROCEDURE: MM TOMOSYNTHESIS [...] breast cancer at age 40. LOCATION: [facility] BREAST COMPOSITION: The breasts are almost [...] PALPABLE LUMP SHOULD BE BIOPSIED. Dictated by: Maged Strong M.D. on 05/30/2024 at 16:32 Approved by: Maged Strong M.D. on 05/30/2024 at 16:34 Dictated By: Maged Strong M.D. Signed By: 05/30/241634 DD/ 33 TD/TT: Sliver Lap Tender: [facility] Radiology Study observation (narrative) [facility] MM TOMOSYNTHESIS SCREENING B IOrdered By: Radiologist Radiology on 05-30-2024 [facility] Work Phone: ALL CBC WITH AUTO DIFFon BASOPHILS ABSOLUTE AUTO 0.0 [facility] Basophils/100 WBC (Bld) 0.8 % 0.2 - 2.0 % [facility] Eosinophils/100 WBC (Bld) 1.9 % 0.9 - 7.0 % [facility] Erythrocyte distribution width (RBC) [Ratio] 13.4 % 11.0 - 15.0 % [facility] Hematocrit (Bld) [Volume fraction] 43.1 % 36.0 - 48.0 % [facility] Hemoglobin (Bld) [Mass/Vol] 13.9 g/dL 12.0 - 16.0 g/dL [facility] IMMATURE GRANULOCYTES ABS AUTO 0.01 [facility] Immature granulocytes/100 WBC (Bld) 0.2 % 0.0 - 0.5 % [facility] LYMPHOCYTES ABSOLUTE AUTO 1.7 [facility] Lymphocytes/100 WBC (Bld) 32.9 % 20.5 - 60.0 % [facility] MCH (RBC) [Entitic mass] 28.8 pg 26.7 - 34.0 pg [facility] MCHC (RBC) [Mass/Vol] 32.3 g/dL 29.9 - 35.2 g/dL [facility] MCV (RBC) [Entitic vol] 89.2 fL 81.0 - 99.0 fL [facility] MONOCYTES ABSOLUTE AUTO 0.5 [facility] Monocytes/100 WBC (Bld) 9.6 % 1.7 - 12.0 % [facility] NEUTROPHILS ABSOLUTE AUTO 2.8 [facility] Neutrophils/100 WBC (Bld) 54.6 % 43.0 - 75.0 % [facility] Platelet mean volume (Bld) [Entitic vol] 9.7 fL 9.5 - 13.5 fL [facility] EO # 0.1 [facility] TB PLT 291 [facility] RBC 4.83 [facility] WBC 5.1 [facility] [place] 01-07-2024 L Specimen: [id number] Received: 01/07/24 Status: LAWSON Mcneilllivia Num: [id number] Spec Type: Surgical Subm Dr: Tahir Rust Tissues: A Endometrial Polyp (ENOMETRIAL POLYP AND CURETTI) Procedures: HE/2, Gross/Micro L4 Age/ Patient Sex Location Account Attending Physician Eugenia Dorsey 58/F LABELL [id number] Tahir Rust SPEC NUM: [id number] RECD: 01/07/24 STATUS: LAWSON MCNEILLLivia NUM: [id number] TIMOTHY: 01/07/[address]: Tahir Rust ENTERED: 01/07/[address] [facility] [address]: Cristhian,Lab SPEC TYPE: Surgical DEPT: BIANCA VANN ENTERED BY: [id number] RECV BY: [id number] ORDERED: HE/2, Gross/Micro L4 ORDERED: HE/2, Gross/Micro [...] is entirely submitted cassette A1. CPT Codes 32844 -------- -------- Specimen: [id number] Received: 01/07/24-1348 Status: LAWSON Guzman Num: [id number] Spec Type: Surgical Subm Dr: Tahir Rust Tissues: A Endometrial Polyp (ENOMETRIAL POLYP AND CURETTI) Procedures: HE/2, Gross/Micro L4 -------- Patient: Eugenia Dorsey [id number] (Continued) -------- Signed (signature on file) Tammie Mcclellan MD 01/13/24 1606 Normal [facility] Patient Letter [facility] January 07, 2024 EUGENIA [place] [address] [place] [address] : 1965 Dear Eugenia Dorsey, We have been trying to reach you with no success. It is important that you return our call upon receiving this letter. Also, at the time of your call, please provide us with your current information. Thank you for your prompt attention to this matter. Sincerely, [facility] [address] [place] [address] [facility] Ambulatory Visit Summaryon 0 12-30-2023 Ambulatory Visit Summary Ambulatory Visit Summary EUGENIA DORSEY :1965 Visit Date:12/30/2023 Ambulatory Visit Instructions [...] you for choosing us for your care. [facility] Provider Letteron 12-30-2023 Provider Letter Provider Letter December 30, 2023 [address] [place] [address] : 1965 To Whom It May Concern, Please excuse above patient from work. Date of Illness: From: 12/30/23 To: 12/30/23 May Return to Work On: 12/31/2023 Restrictions: Comments: Patient had an appointment on 12/30/23 at [facility] Sincerely, [facility] Urology Office/Clinic Noteon 12-30-2023 Urology Office/Clinic Note [...] Skin: No rashes or suspicious lesions Assessment/Plan [employer] referred by Dr. Porter for recurrent UTI [...] went to an urgent care in [place] campus who started her on Augmentin for [...] E&M of New Patient High 60-74 Min 24234 2. Kidney stones (N20.0: Calculus of kidney) [...] now. -K (more content not included)... Normal [facility] Comment on above: Result Comment: Elec tronically Signed By: Farideh BARRERA, Bessie Modi\.enid\Date and Time Signed: 12/30/23 15:22 EDT URETHRITIS/DISCHARGE [...] MG MAMM DX 3D RT CAD Patient: EUGENIA DORSEY Exam Date: 09/22/2022 : 1965 Gender:F Ordering : DR TAHIR RUST . Admission #: [id number] Family : Order #: [id number] CLICK HERE TO VIEW EXAM RADIOLOGY REPORT [...] breast cancer at age 40. LOCATION: [facility] BREAST COMPOSITION: Almost entirely fatty. FINDINGS: [...] MD on 09/22/2022 at 15:03 Normal [facility] US BREAST RIGHT LIMITEDon US BREAST RIGHT LIMITED Patient: EUGENIA DORSEY Exam Date: 09/22/2022 : 1965 Gender:F Ordering : DR TAHIR RUST . Admission #: [id number] Family : Order #: [id number] CLICK HERE TO VIEW EXAM RADIOLOGY REPORT [...] breast cancer at age 40. LOCATION: [facility] BREAST COMPOSITION: Almost entirely fatty. FINDINGS: [...] Castaneda MD on 09/22/2022 at 15:03 Normal [facility] US ST HEAD_NECKon 08-31-2022 US [...] left parotid gland; nonspecific. Electronically authenticated by: MAGED STRONG Date: 2022-08-31 08:09 Normal [facility] US PELVIS AND TRANSVAGon US PELVIS [...] collection/cyst within right ovary. Electronically authenticated by: MAGED STRONG Date: 2022-07-29 06:32 Normal [facility] INSULINon 07-04-2022 Insulin 6.2 uIU/mL Normal 2.6-24.9 [facility] Comment on above: Performed By: #### H STROPN, CMP #### [facility] [address] [address] [address] Judd Andrade CBC AUTO DIFFon 07-03-2022 BASO # 0.0 103/ul Normal 0.0-0.1 [facility] Comment on above: Performed By: #### C BC #### [facility] [address] [place] [address] Dr. Judd Andrade Basophils/100 WBC (Bld) 1.1 % Normal 0.2-2.0 [facility] Comment on above: Performed By: #### C BC #### [facility] [address] [place] [address] Dr. Judd Andrade EO # 0.1 103/ul Normal 0.0-0.7 [facility] Comment on above: Performed By: #### C BC #### [facility] [address] [place] [address] Dr. Judd Andrade Eosinophils/100 WBC (Bld) 3.6 % Normal 0.9-7.0 [facility] Comment on above: Performed By: #### C BC #### [facility] [address] [place] [address] Dr. Judd Andrade Erythrocyte distribution width (RBC) [Ratio] 13.6 % Normal 11.0-15.0 [facility] Comment on above: Performed By: #### C BC #### [facility] [address] [place] [address] Dr. Judd Andrade Hematocrit (Bld) [Volume fraction] 41.8 % Normal 36.0-48.0 [facility] Comment on above: Performed By: #### C BC #### [facility] [address] [place] [address] Dr. Judd Andrade Hemoglobin (Bld) [Mass/Vol] 13.5 g/dL Normal 12.0-16.0 [facility] Comment on above: Performed By: #### C BC #### [facility] [address] [place] [address] Dr. Judd Andrade IG # 0.01 10e3/ul Normal 0.00-0.03 [facility] Comment on above: Performed By: #### C BC #### [facility] [address] [place] [address] Dr. Judd Andrade IG % 0.3 % Normal 0.0-0.5 [facility] Comment on above: Performed By: #### C BC #### [facility] [address] [place] [address] Dr. Judd Andrade LYMPH # 1.4 103/ul Normal 1.2-3.8 [facility] Comment on above: Performed By: #### C BC #### [facility] [address] [place] [address] Dr. Jdud Andrade Lymphocytes/100 WBC (Bld) 38.4 % Normal 20.5-60.0 [facility] Comment on above: Performed By: #### C BC #### [facility] [address] [place] [address] Dr. Judd Andrade MANUAL DIFF REQ NO Normal [facility] Comment on above: Performed By: #### C BC #### [facility] [address] [place] [address] Dr. Judd Andrade MCH (RBC) [Entitic mass] 28.2 pg Normal 26.7-34.0 [facility] Comment on above: Performed By: #### C BC #### [facility] [address] [place] [address] Dr. Judd Andrade MCHC (RBC) [Mass/Vol] 32.3 g/dL Normal 29.9-35.2 [facility] Comment on above: Performed By: #### C BC #### [facility] [address] [place] [address] Dr. Judd Andrade MCV (RBC) [Entitic vol] 87.4 fL Normal 81.0-99.0 [facility] Comment on above: Performed By: #### C BC #### [facility] [address] [place] [address] Dr. Judd Andrade MONO # 0.4 103/ul Normal 0.3-0.8 [facility] Comment on above: Performed By: #### C BC #### [facility] [address] [place] [address] Dr. Judd Andrade Monocytes/100 WBC (Bld) 10.4 % Normal 1.7-12.0 [facility] Comment on above: Performed By: #### C BC #### [facility] [address] [place] [address] Dr. Judd Andrade NEUT # 1.7 103/ul Normal 1.4-6.5 [facility] Comment on above: Performed By: #### C BC #### [facility] [address] [place] [address] Dr. Judd Andrade Neutrophils/100 WBC (Bld) 46.2 % Normal 43.0-75.0 [facility] Comment on above: Performed By: #### C BC #### [facility] [address] [place] [address] Dr. Judd Andrade Platelet mean volume (Bld) [Entitic vol] 9.6 fL Normal 9.5-13.5 [facility] Comment on above: Performed By: #### C BC #### [facility] [address] [place] [address] Dr. Judd Andrade PLT 246 103/ul Normal 150-450 [facility] Comment on above: Performed By: #### C BC #### [facility] [address] [place] [address] Dr. Judd Andrade RBC 4.78 106/ul Normal 4.20-5.40 [facility] Comment on above: Performed By: #### C BC #### [facility] [address] [place] [address] Dr. Judd Andrade WBC 3.7 103/ul Critically low 4.0-11.0 [facility] Comment on above: Performed By: #### C BC #### [facility] [address] [place] [address] Dr. Judd Andrade FREE THYROXINE INDEX T7on FTI 3.20 Normal 1.30-4.50 [facility] Comment on above: Performed By: #### T 7, LIPID, TSH, CMP #### [facility] [address] [place] [address] Dr. Judd Andrade T3U 36.0 % Normal 30.0-39.0 [facility] Comment on above: Performed By: #### T 7, LIPID, TSH, CMP #### [facility] [address] [place] [address] Dr. Judd Andrade T4 [Mass/Vol] 8.90 ug/dL Normal 4.80-13.90 [facility] Comment on above: Performed By: #### T 7, LIPID, TSH, CMP #### [facility] [address] [place] [address] Dr. Judd Andrade GLYCOHEMOGLOBIN A1Con 2022 ADA RECOMMENDATION SEE BELOW Normal [facility] Comment on above: Result Comment: ADA RECOMMENDED LIMIT 4.0 - 6.0 ADA THERAPEUTIC TARGET < 7.0 ACTION SUGGESTED > 7.0 Performed By: #### C BC #### [facility] [address] [place] [address] Dr. Judd Andrade Glucose [Mass/Vol] 120 mg/dL Normal [facility] Comment on above: Performed By: #### C BC #### [facility] [address] [place] [address] Dr. Judd Andrade HbA1c (Bld) [Mass fraction] 5.8 % Normal 4.5-6.2 [facility] Comment on above: Performed By: #### C BC #### [facility] [address] [place] [address] Dr. Judd Andrade IRONon 07-03-2022 Iron [Mass/Vol] 67.0 ug/dL Normal 50.0-170.0 [facility] Comment on above: Performed By: #### V ITAD, IRON #### [facility] [address] [address] [address] Judd Andrade LIPID PROFILEon 07-03-2022 CHOL-HDL RATIO NORM SEE BELOW Normal [facility] Comment on above: Result Comment: 3.3 - 4.4 LOW RISK 4.4 - 7.1 AVERAGE RISK 7.1 - 11.0 MODERATE RISK >11.0 HIGH RISK Performed By: #### T 7, LIPID, TSH, CMP #### [facility] [address] [address] [address] Judd Andrade Cholesterol [Mass/Vol] 216 mg/dL Critically high <=200 [facility] Comment on above: Performed By: #### T 7, LIPID, TSH, CMP #### [facility] [address] [address] [address] Judd Andrade Cholesterol in HDL [Mass/Vol] 87 mg/dL Critically high 40-60 [facility] Comment on above: Performed By: #### T 7, LIPID, TSH, CMP #### [facility] [address] [address] [address] Judd Andrade Cholesterol in LDL [Mass/Vol] 124.2 mg/dL Normal [facility] Comment on above: Performed By: #### T 7, LIPID, TSH, CMP #### [facility] [address] [address] [address] Judd Andrade Cholesterol.total/C holesterol in HDL [Mass ratio] 2.5 {ratio} Normal [facility] Comment on above: Performed By: #### T 7, LIPID, TSH, CMP #### [facility] [address] [address] [address] Judd Andrade HDL NORMAL > or = 60 mg/dl - LO W CARDIOVASCULAR RISK <40 mg/dl - HIGH CARDIOVASCULAR RISK Normal [facility] Comment on above: Performed By: #### T 7, LIPID, TSH, CMP #### [facility] [address] [address] [address] Judd Andrade LDL CALC NORMAL SEE BELOW Normal [facility] Comment on above: Result Comment: <100 mg/dl OPTIMAL 100 - 129 mg/dl NEAR OR ABOVE OPTIMAL 130 - 159 mg/dl BORDERLINE HIGH 160 - 189 mg/dl HIGH >190 mg/dl VERY HIGH Performed By: #### T 7, LIPID, TSH, CMP #### [facility] [address] [place] [address] Dr. Judd Andrade Triglyceride [Mass/Vol] 24 mg/dL Normal <=150 [facility] Comment on above: Performed By: #### T 7, LIPID, TSH, CMP #### [facility] [address] [place] [address] Dr. Judd Andrade VLDL CALC 4.8 mg/dL Normal [facility] Comment on above: Performed By: #### T 7, LIPID, TSH, CMP #### [facility] [address] [place] [address] Dr. Judd Andrade PROF 14(COMP METB)on 023 Albumin [Mass/Vol] 4.0 g/dL Normal 3.4-5.0 [facility] Comment on above: Performed By: #### T 7, LIPID, TSH, CMP #### [facility] [address] [place] [address] Dr. Judd Andrade Albumin/Globulin [Mass ratio] 1.1 {ratio} Normal [facility] Comment on above: Performed By: #### T 7, LIPID, TSH, CMP #### [facility] [address] [place] [address] Dr. Judd Andrade ALP [Catalytic activity/Vol] 78 U/L Normal 46-116 [facility] Comment on above: Performed By: #### T 7, LIPID, TSH, CMP #### [facility] [address] [place] [address] Dr. Judd Andrade ALT [Catalytic activity/Vol] 29 U/L Normal 14-59 [facility] Comment on above: Performed By: #### T 7, LIPID, TSH, CMP #### [facility] [address] [place] [address] Dr. Judd Andrade Anion gap [Moles/Vol] 5.6 mmol/L Normal [facility] Comment on above: Performed By: #### T 7, LIPID, TSH, CMP #### [facility] [address] [place] [address] Dr. Judd Andrade AST [Catalytic activity/Vol] 23 U/L Normal 15-37 [facility] Comment on above: Performed By: #### T 7, LIPID, TSH, CMP #### [facility] [address] [place] [address] Dr. Judd Andrade Bilirubin [Mass/Vol] 0.5 mg/dL Normal 0.2-1.0 [facility] Comment on above: Performed By: #### T 7, LIPID, TSH, CMP #### [facility] [address] [place] [address] Dr. Judd Andrade Calcium [Mass/Vol] 8.9 mg/dL Normal 8.5-10.1 [facility] Comment on above: Performed By: #### T 7, LIPID, TSH, CMP #### [facility] [address] [place] [address] Dr. Judd Andrade Chloride [Moles/Vol] 105 mmol/L Normal 98-107 [facility] Comment on above: Performed By: #### T 7, LIPID, TSH, CMP #### [facility] [address] [place] [address] Dr. Judd Andrade CO2 [Moles/Vol] 32.0 mmol/L Normal 21.0-32.0 [facility] Comment on above: Performed By: #### T 7, LIPID, TSH, CMP #### [facility] [address] [place] [address] Dr. Judd Andrade Creatinine [Mass/Vol] 0.52 mg/dL Critically low 0.55-1.02 [facility] Comment on above: Performed By: #### T 7, LIPID, TSH, CMP #### [facility] [address] [place] [address] Dr. Judd Andrade EGFR-AF URUGUAYAN >60 Normal >=60 [facility] Comment on above: Performed By: #### T 7, LIPID, TSH, CMP #### [facility] [address] [place] [address] Dr. Judd Andrade EGFR-NON AF URUGUAYAN >60 Normal >=60 [facility] Comment on above: Performed By: #### T 7, LIPID, TSH, CMP #### [facility] [address] [address] [address] Judd Andrade Globulin (S) [Mass/Vol] 3.6 g/dL Normal [facility] Comment on above: Performed By: #### T 7, LIPID, TSH, CMP #### [facility] [address] [address] [address] Judd Andrade Glucose [Mass/Vol] 89 mg/dL Normal 74-106 [facility] Comment on above: Performed By: #### T 7, LIPID, TSH, CMP #### [facility] [address] [address] [address] Judd Andrade Potassium [Moles/Vol] 4.2 mmol/L Normal 3.5-5.1 [facility] Comment on above: Performed By: #### T 7, LIPID, TSH, CMP #### [facility] [address] [place] [address] Dr. Judd Andrade Protein [Mass/Vol] 7.6 g/dL Normal 6.4-8.2 [facility] Comment on above: Performed By: #### T 7, LIPID, TSH, CMP #### [facility] [address] [place] [address] Dr. Judd Andrade Sodium [Moles/Vol] 139 mmol/L Normal 136-145 [facility] Comment on above: Performed By: #### T 7, LIPID, TSH, CMP #### [facility] [address] [address] [address] Judd Andrade Urea nitrogen [Mass/Vol] 11.0 mg/dL Normal 7.0-18.0 [facility] Comment on above: Performed By: #### T 7, LIPID, TSH, CMP #### [facility] [address] [address] [address] Judd Andrade Urea nitrogen/Creatinine [Mass ratio] 21.2 mg/mg Normal [facility] Comment on above: Performed By: #### T 7, LIPID, TSH, CMP #### [facility] [address] [place] [address] Dr. Judd Andrade TSHon 07-03-2022 TSH 1.037 uIU/mL Normal 0.358-3.740 [facility] Comment on above: Performed By: #### T 7, LIPID, TSH, CMP #### [facility] [address] [place] [address] Dr. Judd Andrade VITAMIN D 25 OHon 07-03-2022 VIT D 25-OH 32.8 ng/mL Normal [facility] Comment on above: Performed By: #### V ITAD, IRON #### [facility] [address] [place] [address] Dr. Judd Andrade VIT D RANGES SEE BELOW Normal [facility] Comment on above: Result Comment: <20 ng/mL Vit D deficient 20 - <30 ng/mL Vit D insufficient 30 - 100 ng/mL Vit D sufficient >100 ng/mL Potential Toxicity Performed By: #### V ITAD, IRON #### [facility] [address] [place] [address] Dr. Judd Andrade BORDETELLA PERTUSSIS AB IGGo n 06-30-2022 B pertussis IgG Ab 3.88 index Invalid Interpretation Code 0.00-0.94 [facility] Comment on above: Result Comment: Clie nt Requested Flag Negative <0.95 Equivocal 0.95 - 1.04 Positive >1.04 Performed By: #### C BC #### [facility] [address] [place] [address] Dr. Judd Andrade BORDETELLA PERTUSSIS AB IGMo n 06-30-2022 B pertussis IgM Ab <1.0 Normal 0.0-0.9 [facility] Comment on above: Result Comment: Nega tive <1.0 Borderline 1.0 - 1.1 Positive >1.1 Performed By: #### H STROPN, CMP #### [facility] [address] [place] [address] Dr. Judd Andrade [id number] 2022 [id number] , Serum 158 mg/dL Normal 101-187 [facility] Comment on above: Performed By: #### C BC #### [facility] [address] [place] [address] Dr. Judd Andrade CBC AUTO DIFFon 06-03-2022 BASO # 0.0 103/ul Normal 0.0-0.1 [facility] Comment on above: Performed By: #### H STROPN, CMP #### [facility] [address] [place] [address] Dr. Judd Andrade Basophils/100 WBC (Bld) 0.6 % Normal 0.2-2.0 [facility] Comment on above: Performed By: #### H STROPN, CMP #### [facility] [address] [place] [address] Dr. Judd Andrade EO # 0.0 103/ul Normal 0.0-0.7 [facility] Comment on above: Performed By: #### H STROPN, CMP #### [facility] [address] [place] [address] Dr. Judd Andrade Eosinophils/100 WBC (Bld) 0.6 % Critically low 0.9-7.0 [facility] Comment on above: Performed By: #### H STROPN, CMP #### [facility] [address] [place] [address] Dr. Judd Andrade Erythrocyte distribution width (RBC) [Ratio] 13.5 % Normal 11.0-15.0 [facility] Comment on above: Performed By: #### H STROPN, CMP #### [facility] [address] [place] [address] Dr. Judd Andrade Hematocrit (Bld) [Volume fraction] 42.4 % Normal 36.0-48.0 [facility] Comment on above: Performed By: #### H STROPN, CMP #### [facility] [address] [place] [address] Dr. Judd Andrade Hemoglobin (Bld) [Mass/Vol] 13.4 g/dL Normal 12.0-16.0 [facility] Comment on above: Performed By: #### H STROPN, CMP #### [facility] [address] [address] [address] Judd Andrade IG # 0.01 10e3/ul Normal 0.00-0.03 [facility] Comment on above: Performed By: #### H DEB, CMP #### [facility] [address] [address] [address] Judd Andrade IG % 0.2 % Normal 0.0-0.5 [facility] Comment on above: Performed By: #### H DEB, CMP #### [facility] [address] [address] [address] Judd Andrade LYMPH # 1.1 103/ul Critically low 1.2-3.8 [facility] Comment on above: Performed By: #### H DEB, CMP #### [facility] [address] [place] [address] Dr. Judd Andrade Lymphocytes/100 WBC (Bld) 23.5 % Normal 20.5-60.0 [facility] Comment on above: Performed By: #### H DEB, CMP #### [facility] [address] [place] [address] Dr. Judd Andrade MANUAL DIFF REQ NO Normal [facility] Comment on above: Performed By: #### H DEB, CMP #### [facility] [address] [place] [address] Dr. Judd Andrade MCH (RBC) [Entitic mass] 28.9 pg Normal 26.7-34.0 [facility] Comment on above: Performed By: #### H DEB, CMP #### [facility] [address] [place] [address] Dr. Judd Andrade MCHC (RBC) [Mass/Vol] 31.6 g/dL Normal 29.9-35.2 [facility] Comment on above: Performed By: #### H TERAPN, CMP #### [facility] [address] [place] [address] Dr. Judd Andrade MCV (RBC) [Entitic vol] 91.6 fL Normal 81.0-99.0 [facility] Comment on above: Performed By: #### H TERAPN, CMP #### [facility] [address] [address] [address] Judd Andrade MONO # 0.8 103/ul Normal 0.3-0.8 [facility] Comment on above: Performed By: #### H STROPN, CMP #### [facility] [address] [address] [address] Judd Andrade Monocytes/100 WBC (Bld) 16.5 % Critically high 1.7-12.0 [facility] Comment on above: Performed By: #### H STROPN, CMP #### [facility] [address] [address] [address] Judd Andrade NEUT # 2.7 103/ul Normal 1.4-6.5 [facility] Comment on above: Performed By: #### H STROPN, CMP #### [facility] [address] [place] [address] Dr. Judd Andrade Neutrophils/100 WBC (Bld) 58.6 % Normal 43.0-75.0 [facility] Comment on above: Performed By: #### H STROPN, CMP #### [facility] [address] [place] [address] Dr. Judd Andrade Platelet mean volume (Bld) [Entitic vol] 9.8 fL Normal 9.5-13.5 [facility] Comment on above: Performed By: #### H STROPN, CMP #### [facility] [address] [place] [address] Dr. Judd Andrade PLT 252 103/ul Normal 150-450 [facility] Comment on above: Performed By: #### H STROPN, CMP #### [facility] [address] [place] [address] Dr. Judd Andrade RBC 4.63 106/ul Normal 4.20-5.40 [facility] Comment on above: Performed By: #### H STROPN, CMP #### [facility] [address] [place] [address] Dr. Judd Andrade WBC 4.7 103/ul Normal 4.0-11.0 [facility] Comment on above: Performed By: #### H STROPN, CMP #### [facility] [address] [address] [address] Judd Andrade PROF 14(COMP METB)on 023 Albumin [Mass/Vol] 4.0 g/dL Normal 3.4-5.0 [facility] Comment on above: Performed By: #### H STROPN, CMP #### [facility] [address] [address] [address] Judd Andrade Albumin/Globulin [Mass ratio] 1.0 {ratio} Normal [facility] Comment on above: Performed By: #### H STROPN, CMP #### [facility] [address] [address] [address] Judd Andrade ALP [Catalytic activity/Vol] 77 U/L Normal 46-116 [facility] Comment on above: Performed By: #### H STROPN, CMP #### [facility] [address] [address] [address] Judd Andrade ALT [Catalytic activity/Vol] 33 U/L Normal 14-59 [facility] Comment on above: Performed By: #### H STROPN, CMP #### [facility] [address] [address] [address] Judd Andrade Anion gap [Moles/Vol] 8.0 mmol/L Normal [facility] Comment on above: Performed By: #### H STROPN, CMP #### [facility] [address] [address] [address] Judd Andrade AST [Catalytic activity/Vol] 28 U/L Normal 15-37 [facility] Comment on above: Performed By: #### H STROPN, CMP #### [facility] [address] [address] [address] Judd Andrade Bilirubin [Mass/Vol] 0.6 mg/dL Normal 0.2-1.0 [facility] Comment on above: Performed By: #### H STROPN, CMP #### [facility] [address] [address] [address] Judd Andrade Calcium [Mass/Vol] 9.3 mg/dL Normal 8.5-10.1 [facility] Comment on above: Performed By: #### H STROPN, CMP #### [facility] [address] [address] [address] Judd Andrade Chloride [Moles/Vol] 103 mmol/L Normal 98-107 [facility] Comment on above: Performed By: #### H STROPN, CMP #### [facility] [address] [address] [address] Judd Andrade CO2 [Moles/Vol] 33.6 mmol/L Critically high 21.0-32.0 [facility] Comment on above: Performed By: #### H STROPN, CMP #### [facility] [address] [place] [address] Dr. Judd Andrade Creatinine [Mass/Vol] 0.59 mg/dL Normal 0.55-1.02 [facility] Comment on above: Performed By: #### H STROPN, CMP #### [facility] [address] [place] [address] Dr. Judd Andrade EGFR-AF URUGUAYAN >60 Normal >=60 [facility] Comment on above: Performed By: #### H STROPN, CMP #### [facility] [address] [place] [address] Dr. Judd Andrade EGFR-NON AF URUGUAYAN >60 Normal >=60 [facility] Comment on above: Performed By: #### H STROPN, CMP #### [facility] [address] [place] [address] Dr. Judd Andrade Globulin (S) [Mass/Vol] 4.0 g/dL Normal [facility] Comment on above: Performed By: #### H STROPN, CMP #### [facility] [address] [place] [address] Dr. Judd Andrade Glucose [Mass/Vol] 130 mg/dL Critically high 74-106 [facility] Comment on above: Performed By: #### H STROPN, CMP #### [facility] [address] [place] [address] Dr. Judd Andrade Potassium [Moles/Vol] 3.6 mmol/L Normal 3.5-5.1 [facility] Comment on above: Performed By: #### H STROPN, CMP #### [facility] [address] [address] [address] Judd Andrade Protein [Mass/Vol] 8.0 g/dL Normal 6.4-8.2 [facility] Comment on above: Performed By: #### H STROPN, CMP #### [facility] [address] [address] [address] Judd Andrade Sodium [Moles/Vol] 141 mmol/L Normal 136-145 [facility] Comment on above: Performed By: #### H STROPN, CMP #### [facility] [address] [address] [address] Judd Andrade Urea nitrogen [Mass/Vol] 8.0 mg/dL Normal 7.0-18.0 [facility] Comment on above: Performed By: #### H TEARPN, CMP #### [facility] [address] [place] [address] Dr. Judd Andrade Urea nitrogen/Creatinine [Mass ratio] 13.6 mg/mg Normal [facility] Comment on above: Performed By: #### H STROPN, CMP #### [facility] [address] [place] [address] Dr. Judd Andrade TROPONIN, HIGH SENSITIVITYon 06-03-2022 HSTROP <4.0 Normal 4.0-51.3 [facility] Comment on above: Result Comment: CUT- OFF POINTS HAVE BEEN ESTABLISHED BASED ON THE FOURTH UNIVERSAL DEFINITIONS OF MYOCARDIAL INFARCTION. THE UPPER REFERENCE LIMIT (URL) OF TROPONIN, DEFINED THE 99TH PERCENTILE OF cTnI DISTRIBUTION IN A REFERENCE POPULATION, HAS BEEN CONFIRMED THE DECISION THRESHOLD FOR [place] DIAGNOSIS. Performed By: #### H STROPN, CMP #### [facility] [address] [place] [address] Dr. Judd Andrade XR CHEST 2 Von [...] acute cardiopulmonary disease. Electronically authenticated by: LINDA MEAGAN Date: 2022-06-03 12:15 Normal [facility] Covid-19 PCR ([facility]on SARS-CoV-2 (COVID-19) RNA JOLLY+probe Ql (Unsp spec) Not detected Normal NOT DETECTED [facility] Comment on above: Result Comment: This test is not yet approved or cleared by the [place] FDA. When there are no FDA-approved or cleared tests available, and other criteria are met, FDA can make tests available under an emergency access mechanism called an Emergency Use Authorization (EUA). The EUA for this test is supported by the [place] of Health and Human Service's (HHS's) declaration [...] Performed By: #### H DEB, CMP #### [facility] [address] [address] [address] Judd Andrade INFLUENZA A AND B AGon 06-02 [facility] SEE BELOW Normal [facility] Comment on above: Result Comment: Nega tive for Flu A protein angiten. Infection due to Flu A cannot be ruled out. Flu A angiten in the sample may be below the detection limit of the test. Performed By: #### H DEB, CMP #### [facility] [address] [place] [address] Dr. Judd And[facility] Normal [facility] Comment on above: Result Comment: Nega tive for Flu B protein antigen. Infection due to Flu B cannot be ruled out. Flu B antigen in the sample may be below the detection limit of the test. Performed By: #### H STROPN, CMP #### [facility] [address] [address] [address] Judd Andrade INFLUENZA A AG Negative Normal NEGATIVE SEE COMMENT [facility] Comment on above: Performed By: #### H STROPN, CMP #### [facility] [address] [address] [address] Judd Andrade INFLUENZA B AG Negative Normal NEGATIVE SEE COMMENT [facility] Comment on above: Performed By: #### H STROPN, CMP #### [facility] [address] [address] [address] Judd [address] US ST HEAD_NECKon 02-11-2022 [...] months to document stability. Electronically authenticated by: MAGED STRONG Date: 2022-02-11 16:24 Normal [facility] MAMM SCREEN 3D SUSANA CADon 02-10-2022 MG MAMM SCREEN 3D SUSANA CAD Patient: EUGENIA DORSEY Exam Date: 02/10/2022 : 1965 Gender:F Ordering : DR JOHN PORTER . Admission #: [id number] Family : Order #: [id number] CLICK HERE TO VIEW EXAM RADIOLOGY REPORT [...] breast cancer at age 40. LOCATION: [facility] BREAST COMPOSITION: Almost entirely fatty. FINDINGS: [...] PALPABLE LUMP SHOULD BE BIOPSIED. Dictated by: Maged Strong M.D. on 02/11/2022 at 14:18 Approved by: Maged Strong M.D. on 02/11/2022 at 14:20 Normal [facility] XR CHEST 1 Von 01-15-2022 XR [...] KAREN VALDEZ Date: 2022-01-15 18:39 Normal [facility] CBC AUTO DIFFon 12-30-2021 BASO # 0.0 103/ul Normal 0.0-0.1 [facility] Comment on above: Performed By: #### C BC #### [facility] [address] [address] [address] Judd Andrade Basophils/100 WBC (Bld) 0.6 % Normal 0.2-2.0 [facility] Comment on above: Performed By: #### C BC #### [facility] [address] [address] [address] Judd Andrade EO # 0.1 103/ul Normal 0.0-0.7 [facility] Comment on above: Performed By: #### C BC #### [facility] [address] [place] [address] Dr. Judd Andrade Eosinophils/100 WBC (Bld) 2.1 % Normal 0.9-7.0 [facility] Comment on above: Performed By: #### C BC #### [facility] [address] [place] [address] Dr. Judd Andrade Erythrocyte distribution width (RBC) [Ratio] 13.0 % Normal 11.0-15.0 [facility] Comment on above: Performed By: #### C BC #### [facility] [address] [place] [address] Dr. Judd Andrade Hematocrit (Bld) [Volume fraction] 41.9 % Normal 36.0-48.0 [facility] Comment on above: Performed By: #### C BC #### [facility] [address] [place] [address] Dr. Judd Andrade Hemoglobin (Bld) [Mass/Vol] 13.7 g/dL Normal 12.0-16.0 [facility] Comment on above: Performed By: #### C BC #### [facility] [address] [place] [address] Dr. Judd Andrade IG # 0.03 10e3/ul Normal 0.00-0.03 [facility] Comment on above: Performed By: #### C BC #### [facility] [address] [place] [address] Dr. Judd Andrade IG % 0.6 % Critically high 0.0-0.5 [facility] Comment on above: Performed By: #### C BC #### [facility] [address] [place] [address] Dr. Judd Andrade LYMPH # 1.9 103/ul Normal 1.2-3.8 [facility] Comment on above: Performed By: #### C BC #### [facility] [address] [place] [address] Dr. Judd Andrade Lymphocytes/100 WBC (Bld) 34.5 % Normal 20.5-60.0 [facility] Comment on above: Performed By: #### C BC #### [facility] [address] [place] [address] Dr. Judd Andrade MANUAL DIFF REQ NO Normal [facility] Comment on above: Performed By: #### C BC #### [facility] [address] [place], [place] [id number] Dr. Judd Andrade MCH (RBC) [Entitic mass] 28.5 pg Normal 26.7-34.0 [facility] Comment on above: Performed By: #### C BC #### [facility] [address] [place] [address] Dr. Judd Andrade MCHC (RBC) [Mass/Vol] 32.7 g/dL Normal 29.9-35.2 [facility] Comment on above: Performed By: #### C BC #### [facility] [address] [place] [address] Dr. Judd Andrade MCV (RBC) [Entitic vol] 87.1 fL Normal 81.0-99.0 [facility] Comment on above: Performed By: #### C BC #### [facility] [address] [place] [address] Dr. Judd Andrade MONO # 0.6 103/ul Normal 0.3-0.8 [facility] Comment on above: Performed By: #### C BC #### [facility] [address] [place] [address] Dr. Judd Andrade Monocytes/100 WBC (Bld) 10.4 % Normal 1.7-12.0 [facility] Comment on above: Performed By: #### C BC #### [facility] [address] [place] [address] Dr. Judd Andrade NEUT # 2.8 103/ul Normal 1.4-6.5 [facility] Comment on above: Performed By: #### C BC #### [facility] [address] [place] [address] Dr. Judd Andrade Neutrophils/100 WBC (Bld) 51.8 % Normal 43.0-75.0 [facility] Comment on above: Performed By: #### C BC #### [facility] [address] [place] [address] Dr. Judd Andrade Platelet mean volume (Bld) [Entitic vol] 10.5 fL Normal 9.5-13.5 [facility] Comment on above: Performed By: #### C BC #### [facility] [address] [place] [address] Dr. Judd Andrade PLT 270 103/ul Normal 150-450 [facility] Comment on above: Performed By: #### C BC #### [facility] [address] [place] [address] Dr. Judd Andrade RBC 4.81 106/ul Normal 4.20-5.40 [facility] Comment on above: Performed By: #### C BC #### [facility] [address] [place] [address] Dr. Judd Andrade WBC 5.4 103/ul Normal 4.0-11.0 [facility] Comment on above: Performed By: #### C BC #### [facility] [address] [place] [address] Dr. Judd Andrade CRPon 12-30-2021 CRP [Mass/Vol] mg/L Normal <=1.0 [facility] Comment on above: Performed By: #### C BC #### [facility] [address] [place] [address] Dr. Judd Andrade PROF 14(COMP METB)on 022 Albumin [Mass/Vol] 3.9 g/dL Normal 3.4-5.0 [facility] Comment on above: Performed By: #### C BC #### [facility] [address] [place] [address] Dr. Judd Andrade Albumin/Globulin [Mass ratio] 1.0 {ratio} Normal [facility] Comment on above: Performed By: #### C BC #### [facility] [address] [place] [address] Dr. Judd Andrade ALP [Catalytic activity/Vol] 64 U/L Normal 46-116 [facility] Comment on above: Performed By: #### C BC #### [facility] [address] [place] [address] Dr. Judd Andrade ALT [Catalytic activity/Vol] 50 U/L Normal 14-59 [facility] Comment on above: Performed By: #### C BC #### [facility] [address] [place] [address] Dr. Judd Andrade Anion gap [Moles/Vol] 11.1 mmol/L Normal [facility] Comment on above: Performed By: #### C BC #### [facility] [address] [place] [address] Dr. Judd Andrade AST [Catalytic activity/Vol] 28 U/L Normal 15-37 [facility] Comment on above: Performed By: #### C BC #### [facility] [address] [place] [address] Dr. Judd Andrade Bilirubin [Mass/Vol] 0.5 mg/dL Normal 0.2-1.0 [facility] Comment on above: Performed By: #### C BC #### [facility] [address] [place] [address] Dr. Judd Andrade Calcium [Mass/Vol] 8.9 mg/dL Normal 8.5-10.1 [facility] Comment on above: Performed By: #### C BC #### [facility] [address] [place] [address] Dr. Judd Andrade Chloride [Moles/Vol] 101 mmol/L Normal 98-107 [facility] Comment on above: Performed By: #### C BC #### [facility] [address] [place] [address] Dr. Judd Andrade CO2 [Moles/Vol] 29.4 mmol/L Normal 21.0-32.0 [facility] Comment on above: Performed By: #### C BC #### [facility] [address] [place] [address] Dr. Judd Andrade Creatinine [Mass/Vol] 0.73 mg/dL Normal 0.55-1.02 [facility] Comment on above: Performed By: #### C BC #### [facility] [address] [place] [address] Dr. Judd Andrade EGFR-AF URUGUAYAN >60 Normal >=60 [facility] Comment on above: Performed By: #### C BC #### [facility] [address] [place] [address] Dr. Judd Andrade EGFR-NON AF URUGUAYAN >60 Normal >=60 [facility] Comment on above: Performed By: #### C BC #### [facility] [address] [address] [address] Judd Andrade Globulin (S) [Mass/Vol] 3.8 g/dL Normal [facility] Comment on above: Performed By: #### C BC #### [facility] [address] [address] [address] Judd Andrade Glucose [Mass/Vol] 139 mg/dL Critically high 74-106 [facility] Comment on above: Performed By: #### C BC #### [facility] [address] [address] [address] Judd Andrade Potassium [Moles/Vol] 3.5 mmol/L Normal 3.5-5.1 [facility] Comment on above: Performed By: #### C BC #### [facility] [address] [place] [address] Dr. Judd Andrade Protein [Mass/Vol] 7.7 g/dL Normal 6.4-8.2 [facility] Comment on above: Performed By: #### C BC #### [facility] [address] [address] [address] Judd Andrade Sodium [Moles/Vol] 138 mmol/L Normal 136-145 [facility] Comment on above: Performed By: #### C BC #### [facility] [address] [address] [address] Judd Andrade Urea nitrogen [Mass/Vol] 12.0 mg/dL Normal 7.0-18.0 [facility] Comment on above: Performed By: #### C BC #### [facility] [address] [address] [address] Judd Andrade Urea nitrogen/Creatinine [Mass ratio] 16.4 mg/mg Normal [facility] Comment on above: Performed By: #### C BC #### [facility] [address] [id number] Judd Andrade XR CHEST 2 Von [...] ARTEMIO DIXON Date: 2021-12-29 20:49 Normal [facility] TRYPTASEon 12-27-2021 Tryptase 4.5 ug/L Normal 2.2-13.2 [facility] Comment on above: Performed By: #### C BC #### [facility] [address] [address] [address] Judd Andrade CBC AUTO DIFFon 12-23-2021 BASO # 0.0 103/ul Normal 0.0-0.1 [facility] Comment on above: Performed By: #### H STROPN, CMP #### [facility] [address] [place] [address] Dr. Judd Andrade Basophils/100 WBC (Bld) 0.7 % Normal 0.2-2.0 [facility] Comment on above: Performed By: #### H STROPN, CMP #### [facility] [address] [place] [address] Dr. Judd Andrade EO # 0.0 103/ul Normal 0.0-0.7 [facility] Comment on above: Performed By: #### H STROPN, CMP #### [facility] [address] [place] [address] Dr. Judd Andrade Eosinophils/100 WBC (Bld) 0.0 % Critically low 0.9-7.0 [facility] Comment on above: Performed By: #### H STROPN, CMP #### [facility] [address] [address] [address] Judd Andrade Erythrocyte distribution width (RBC) [Ratio] 13.2 % Normal 11.0-15.0 [facility] Comment on above: Performed By: #### H STROPN, CMP #### [facility] [address] [place] [address] Dr. Judd Andrade Hematocrit (Bld) [Volume fraction] 42.1 % Normal 36.0-48.0 [facility] Comment on above: Performed By: #### H STROPN, CMP #### [facility] [address] [address] [address] Judd Andrade Hemoglobin (Bld) [Mass/Vol] 13.7 g/dL Normal 12.0-16.0 [facility] Comment on above: Performed By: #### H STROPN, CMP #### [facility] [address] [place] [address] Dr. Judd Andrade IG # 0.01 10e3/ul Normal 0.00-0.03 [facility] Comment on above: Performed By: #### H STROPN, CMP #### [facility] [address] [place] [address] Dr. Judd Andrade IG % 0.3 % Normal 0.0-0.5 [facility] Comment on above: Performed By: #### H STROPN, CMP #### [facility] [address] [place] [address] Dr. Judd Andrade LYMPH # 0.7 103/ul Critically low 1.2-3.8 [facility] Comment on above: Performed By: #### H STROPN, CMP #### [facility] [address] [place] [address] Dr. Judd Andrade Lymphocytes/100 WBC (Bld) 24.1 % Normal 20.5-60.0 [facility] Comment on above: Performed By: #### H STROPN, CMP #### [facility] [address] [place] [address] Dr. Judd Andrade MANUAL DIFF REQ NO Normal [facility] Comment on above: Performed By: #### H STROPN, CMP #### [facility] [address] [place] [address] Dr. Judd Andrade MCH (RBC) [Entitic mass] 28.4 pg Normal 26.7-34.0 [facility] Comment on above: Performed By: #### H STROPN, CMP #### [facility] [address] [place] [address] Dr. Judd Andrade MCHC (RBC) [Mass/Vol] 32.5 g/dL Normal 29.9-35.2 [facility] Comment on above: Performed By: #### H STROPN, CMP #### [facility] [address] [place] [address] Dr. Judd Andrade MCV (RBC) [Entitic vol] 87.2 fL Normal 81.0-99.0 [facility] Comment on above: Performed By: #### H STROPN, CMP #### [facility] [address] [place] [address] Dr. Judd Andrade MONO # 0.5 103/ul Normal 0.3-0.8 [facility] Comment on above: Performed By: #### H STROPN, CMP #### [facility] [address] [place] [address] Dr. Judd Andrade Monocytes/100 WBC (Bld) 16.9 % Critically high 1.7-12.0 [facility] Comment on above: Performed By: #### H STROPN, CMP #### [facility] [address] [place] [address] Dr. Judd Andrade NEUT # 1.8 103/ul Normal 1.4-6.5 [facility] Comment on above: Performed By: #### H STROPN, CMP #### [facility] [address] [place] [address] Dr. Judd Andrade Neutrophils/100 WBC (Bld) 58.0 % Normal 43.0-75.0 [facility] Comment on above: Performed By: #### H STROPN, CMP #### [facility] [address] [place] [address] Dr. Judd Andrade Platelet mean volume (Bld) [Entitic vol] 9.9 fL Normal 9.5-13.5 [facility] Comment on above: Performed By: #### H STROPN, CMP #### [facility] [address] [place] [address] Dr. Judd Andrade PLT 210 103/ul Normal 150-450 [facility] Comment on above: Performed By: #### H STROPN, CMP #### [facility] [address] [place] [address] Dr. Judd Andrade RBC 4.83 106/ul Normal 4.20-5.40 [facility] Comment on above: Performed By: #### H DEB, CMP #### [facility] [address] [place] [address] Dr. Judd Andrade WBC 3.1 103/ul Critically low 4.0-11.0 [facility] Comment on above: Performed By: #### H DEB, CMP #### [facility] [address] [place] [address] Dr. Judd Andrade IRONon 12-23-2021 Iron [Mass/Vol] 35.0 ug/dL Critically low 50.0-170.0 [facility] Comment on above: Performed By: #### C BC #### [facility] [address] [place] [address] Dr. Judd Andrade PROF 14(COMP METB)on 022 Albumin [Mass/Vol] 3.9 g/dL Normal 3.4-5.0 [facility] Comment on above: Performed By: #### C BC #### [facility] [address] [place] [address] Dr. Judd Andrade Albumin/Globulin [Mass ratio] 1.0 {ratio} Normal [facility] Comment on above: Performed By: #### C BC #### [facility] [address] [place] [address] Dr. Judd Andrade ALP [Catalytic activity/Vol] 70 U/L Normal 46-116 [facility] Comment on above: Performed By: #### C BC #### [facility] [address] [place] [address] Dr. Judd Andrade ALT [Catalytic activity/Vol] 43 U/L Normal 14-59 [facility] Comment on above: Performed By: #### C BC #### [facility] [address] [place] [address] Dr. Judd Andrade Anion gap [Moles/Vol] 11.5 mmol/L Normal [facility] Comment on above: Performed By: #### C BC #### [facility] [address] [address] [address] Judd Andrade AST [Catalytic activity/Vol] 33 U/L Normal 15-37 [facility] Comment on above: Performed By: #### C BC #### [facility] [address] [address] [address] Judd Andrade Bilirubin [Mass/Vol] 0.3 mg/dL Normal 0.2-1.0 [facility] Comment on above: Performed By: #### C BC #### [facility] [address] [place] [address] Dr. Judd Andrade Calcium [Mass/Vol] 8.9 mg/dL Normal 8.5-10.1 [facility] Comment on above: Performed By: #### C BC #### [facility] [address] [place] [address] Dr. Judd Andrade Chloride [Moles/Vol] 101 mmol/L Normal 98-107 [facility] Comment on above: Performed By: #### C BC #### [facility] [address] [place] [address] Dr. Judd Andrade CO2 [Moles/Vol] 31.1 mmol/L Normal 21.0-32.0 [facility] Comment on above: Performed By: #### C BC #### [facility] [address] [place] [address] Dr. Judd Andrade Creatinine [Mass/Vol] 0.69 mg/dL Normal 0.55-1.02 [facility] Comment on above: Performed By: #### C BC #### [facility] [address] [place] [address] Dr. Judd Andrade EGFR-AF URUGUAYAN >60 Normal >=60 [facility] Comment on above: Performed By: #### C BC #### [facility] [address] [place] [address] Dr. Judd Andrade EGFR-NON AF URUGUAYAN >60 Normal >=60 [facility] Comment on above: Performed By: #### C BC #### [facility] [address] [place] [address] Dr. Judd Andrade Globulin (S) [Mass/Vol] 3.8 g/dL Normal [facility] Comment on above: Performed By: #### C BC #### [facility] [address] [address] [address] Judd Andrade Glucose [Mass/Vol] 103 mg/dL Normal 74-106 [facility] Comment on above: Performed By: #### C BC #### [facility] [address] [address] [address] Judd Andrade Potassium [Moles/Vol] 3.6 mmol/L Normal 3.5-5.1 [facility] Comment on above: Performed By: #### C BC #### [facility] [address] [address] [address] Judd Andrade Protein [Mass/Vol] 7.7 g/dL Normal 6.4-8.2 [facility] Comment on above: Performed By: #### C BC #### [facility] [address] [address] [address] Judd Andrade Sodium [Moles/Vol] 140 mmol/L Normal 136-145 [facility] Comment on above: Performed By: #### C BC #### [facility] [address] [address] [address] Judd Andrade Urea nitrogen [Mass/Vol] 11.0 mg/dL Normal 7.0-18.0 [facility] Comment on above: Performed By: #### C BC #### [facility] [address] [address] [address] Judd Andrade Urea nitrogen/Creatinine [Mass ratio] 15.9 mg/mg Normal [facility] Comment on above: Performed By: #### C BC #### [facility] [address] [address] [address] Judd Andrade PROTIMEon 12-23-2021 INR Coag (PPP) [Relative time] 1.04 {INR} Normal [facility] Comment on above: Performed By: #### H STROPN, CMP #### [facility] [address] [address] [address] Judd Andrade INR GUIDELINES SEE BELOW Normal [facility] Comment on above: Result Comment: PRIETO RED INR: 2.0 - 3.0 CONDITIONS NOT LISTED BELOW 2.5 - 3.5 FOR PROSTHETIC HEART VALVE REPLACEMENT 2.5 - 3.5 RECURRENT THROMBOSIS Performed By: #### H DEB, CMP #### [facility] [address] [place] [address] Dr. Judd Andrade PT Coag (PPP) [Time] 11.2 s Normal 9.0-11.6 [facility] Comment on above: Performed By: #### H DEB, CMP #### [facility] [address] [place] [address] Dr. Judd Andrade PTTon 12-23-2021 aPTT Coag (Bld) [Time] 31.5 s Normal 22.3-36.2 [facility] Comment on above: Performed By: #### H DEB, CMP #### [facility] [address] [place] [address] Dr. Judd Andrade ER URINE PROFILEon Bilirubin Ql (U) Negative Normal NEGATIVE [facility] Comment on above: Performed By: #### H DEB, CMP #### [facility] [address] [place] [address] Dr. Judd Andrade Clarity (U) CLEAR Normal CLEAR [facility] Comment on above: Performed By: #### H DEB, CMP #### [facility] [address] [place] [address] Dr. Judd Andrade Color (U) LT. YELLOW Normal YELLOW [facility] Comment on above: Performed By: #### H DEB, CMP #### [facility] [address] [place] [address] Dr. Judd Andrade ERUAHD A micrscopic examination will be performed if indicated. Normal [facility] Comment on above: Performed By: #### H DEB, CMP #### [facility] [address] [place] [address] Dr. Judd Andrade Glucose Ql (U) Negative Normal NEGATIVE [facility] Comment on above: Performed By: #### H DEB, CMP #### [facility] [address] [address] [address] Judd Andrade Hemoglobin Ql (U) TRACE-INTACT Abnormal NEGATIVE [facility] Comment on above: Performed By: #### H STROPN, CMP #### [facility] [address] [address] [address] Judd Andrade Ketones Ql (U) Negative Normal NEGATIVE [facility] Comment on above: Performed By: #### H STROPN, CMP #### [facility] [address] [address] [address] Judd Andrade LEUKOCYTES Negative Normal NEGATIVE [facility] Comment on above: Performed By: #### H STROPN, CMP #### [facility] [address] [place] [address] Dr. Judd Andrade Nitrite Ql (U) Negative Normal NEGATIVE [facility] Comment on above: Performed By: #### H STROPN, CMP #### [facility] [address] [place] [address] Dr. Judd Andrade pH (U) 6.0 [pH] Normal 5-9 [facility] Comment on above: Performed By: #### H STROPN, CMP #### [facility] [address] [place] [address] Dr. Judd Andrade SPEC GRAVITY 1.005 Normal 1.005-<=1.025 [facility] Comment on above: Performed By: #### H STROPN, CMP #### [facility] [address] [place] [address] Dr. Judd Andrade UA PROTEIN Negative Normal NEGATIVE/ TRACE [facility] Comment on above: Performed By: #### H STROPN, CMP #### [facility] [address] [place] [address] Dr. Judd Andrade UR MICRO IND INDICATED Normal [facility] Comment on above: Performed By: #### H STROPN, CMP #### [facility] [address] [place] [address] Dr. Judd Andrade Urobilinogen Qn (U) 0.2 {Carol'U}/dL Normal 0.2 - 1. 0 [facility] Comment on above: Performed By: #### H STROPN, CMP #### [facility] [address] [place] [address] Dr. Judd Andrade URINE MICROSCOPIC ONLYon BACTERIA NONE SEEN Normal NONE SEEN [facility] Comment on above: Performed By: #### H STROPN, CMP #### [facility] [address] [place] [address] Dr. Judd Andrade Bacteria identified Cx Nom (U) NOT INDICATED Normal [facility] Comment on above: Performed By: #### H STROPN, CMP #### [facility] [address] [place] [address] Dr. Judd Andrade CAST NONE SEEN Normal NONE SEEN [facility] Comment on above: Performed By: #### H STROPN, CMP #### [facility] [address] [place] [address] Dr. Judd Andrade Crystals LM Nom (Urine sed) NONE SEEN Normal NONE SEEN [facility] Comment on above: Performed By: #### H STROPN, CMP #### [facility] [address] [place] [address] Dr. Judd Andrade Epithelial cells LM Ql (Urine sed) FEW Abnormal NONE SEEN /RARE [facility] Comment on above: Performed By: #### H STROPN, CMP #### [facility] [address] [place] [address] Dr. Judd Andrade MUCOUS NONE SEEN Normal NONE SEEN [facility] Comment on above: Performed By: #### H STROPN, CMP #### [facility] [address] [place] [address] Dr. Judd Andrade RBC 0-2 Normal 0-2 [facility] Comment on above: Performed By: #### H STROPN, CMP #### [facility] [address] [place] [address] Dr. Judd Andrade WBC NONE SEEN Normal NONE SEEN [facility] Comment on above: Performed By: #### H STROPN, CMP #### [facility] [address] [place] [address] Dr. Judd Andrade Vital Signs Date Time Vital Sign Value Performing Clinician Facility 01-20-2024 12:02-0400 Body mass index (BMI) [Ratio] 28.34 kg/m2 Tahir Yocasta DO Work Phone: [facility] 01-20-2024 12:02-0400 Body weight 72.58 kg Tahir Yocasta DO Work Phone: [facility] 01-20-2024 12:02-0400 Diastolic blood pressure 80 mm[Hg] Tahir Yocasta DO Work Phone: [facility] 01-20-2024 12:02-0400 Systolic blood pressure 160 mm[Hg] Tahir Yocasta DO Work Phone: [facility] 01-03-2024 13:11-0400 Body mass index (BMI) [Ratio] 28.17 kg/m2 Tahir Yocasta DO Work Phone: [facility] 01-03-2024 13:11-0400 Body weight 72.12 kg Tahir Yocasta DO Work Phone: [facility] 01-03-2024 13:11-0400 Diastolic blood pressure 70 mm[Hg] Tahir Yocasta DO Work Phone: [facility] 01-03-2024 13:11-0400 Systolic blood pressure 120 mm[Hg] Tahir Yocasta DO Work Phone: [facility] 12-30-2023 13:48-0400 Blood Pressure Location Bessie Galea [facility] 12-30-2023 13:48-0400 Diastolic blood pressure 82 mm[Hg] Bessie Galea [facility] 12-30-2023 13:48-0400 Heart rate 80 /min Bessie Galea [facility] 12-30-2023 13:48-0400 Respiratory rate 16 /min Bessie Galea [facility] 12-30-2023 13:48-0400 Systolic blood pressure 117 mm[Hg] Bessie Gong [facility] 12-21-2023 11:47-0400 Body mass index (BMI) [Ratio] 27.99 kg/m2 Radha KAY Work Phone: [facility] 12-21-2023 11:47-0400 Body weight 71.67 kg Radha KAY Work Phone: [facility] 12-21-2023 11:47-0400 Diastolic blood pressure 78 mm[Hg] Radha KAY Work Phone: [facility] 12-21-2023 11:47-0400 Systolic blood pressure 118 mm[Hg] Radha KAY Work Phone: [facility] Encounters Encounter Date Encounter Type Care Provider Facility Start: 01-03-2025 End: 01-03-2025 Telephone encounter Stacy Jean PT [facility] Comment on above: CHRISTINA Vitalal Start: 01-03-2025 End: 01-03-2025 [facility] Start: 12-13-2024 End: 12-13-2024 [facility] Start: 12-04-2024 End: 12-04-2024 [facility] Start: 11-16-2024 End: 11-16-2024 [facility] Start: 11-10-2024 End: 11-10-2024 [facility] Start: 11-02-2024 End: 11-02-2024 [facility] Start: 10-26-2024 End: 10-26-2024 [facility] Start: 10-18-2024 End: 10-18-2024 [facility] Start: 10-10-2024 End: 10-10-2024 [facility] Start: 10-05-2024 End: 10-05-2024 [facility] Start: 09-26-2024 End: 09-26-2024 ambulatory [facility] Start: 09-15-2024 End: 09-15-2024 [facility] Start: 09-05-2024 End: 09-05-2024 Chart abstracting Scanning [facility] Start: 08-29-2024 End: 08-29-2024 ambulatory [facility] Start: 08-17-2024 End: 08-17-2024 ambulatory [facility] Start: 08-08-2024 End: 08-08-2024 [facility] Start: 07-03-2024 End: 07-03-2024 [facility] Start: 06-19-2024 End: 06-19-2024 [facility] Start: 06-06-2024 End: 06-06-2024 [facility] Start: 05-30-2024 End: 05-30-2024 Clinisync Result Encounter Tahir Yocasta DO Work Phone: [facility] External Department Unsolicited Start: 05-30-2024 End: 05-30-2024 Clinisync Result Encounter Tahir Yocasta DO Work Phone: [facility] External Department Unsolicited Start: 05-29-2024 End: 05-29-2024 [facility] Start: 05-22-2024 End: 05-22-2024 ambulatory [facility] Start: 05-08-2024 End: 05-08-2024 ambulatory [facility] Start: 01-20-2024 End: 01-20-2024 Bamboo flowsheet Tahir Yocasta DO Work Phone: [facility] Start: 01-20-2024 End: 01-20-2024 Bamboo flowsheet Tahir Yocasta DO Work Phone: [facility] Start: 01-20-2024 End: 01-20-2024 Postop follow up visit related to original px Tahir Yocasta DO Work Phone: [facility] Comment on above: Postoperative visit; S/P D&C (status post dilation and curettage) Start: 01-07-2024 End: 01-07-2024 Clinisync Result Encounter Tahir Yocasta DO Work Phone: [facility] External Department Unsolicited Start: 01-07-2024 End: 01-07-2024 Clinisync Result Encounter Tahir Yocasta DO Work Phone: [facility] External Department Unsolicited Start: 01-07-2024 End: 01-07-2024 ambulatory MD John Porter Work Phone: [facility] Work Phone: Start: 01-07-2024 End: 01-07-2024 Departed Referred MD John Porter Work Phone: [facility] Start: 01-03-2024 End: 01-03-2024 Bamboo flowsheet Tahir Yocasta DO Work Phone: [facility] Start: 01-03-2024 End: 01-03-2024 Bamboo flowsheet Tahir Yocasta DO Work Phone: [facility] Start: 01-03-2024 End: 01-03-2024 Office outpatient visit 15 minutes Tahir Yocasta DO Work Phone: [facility] Comment on above: Pre-op examination; Yeast infection; Thickened endometrium; Pelvic pain Start: 01-03-2024 End: 01-03-2024 Preprocedural examination done Tahir Yocasta DO Work Phone: [facility] Start: 01-03-2024 End: 01-03-2024 ambulatory TAHIR YOCASTA Not Available Start: 12-30-2023 End: 12-30-2023 ambulatory Bessie Gong Facility:[facility] Start: 12-30-2023 End: 12-30-2023 Patient encounter procedure Bessie Gong [facility] [place] Start: 12-29-2023 End: 12-29-2023 Phys/qhp telephone evaluation 5-10 min Tahir Yocasta DO Work Phone: [facility] [...] Vaginal itching Start: 10-04-2023 End: 10-04-2023 ambulatory TAHIR YOCASTA Not Available Start: 06-30-2023 End: 06-30-2023 ambulatory TAHIR YOCASTA Not Available Start: 06-24-2023 End: 06-24-2023 ambulatory STACY JEAN Not Available Start: 03-23-2023 End: 03-23-2023 ambulatory TAHIR YOCASTA Not Available Start: 09-24-[address] JOHN PORTER . Facili ty:[facility]1 Start: 09-22-2022 End: 09-23-[address] TAHIR RUST . Facility: Start: 08-29-2022 End: 08-30-[address] JOHN PORTER . Facility:[facility] Start: 08-11-2022 End: 08-12-[address] JOHN PORTER . Facility:[facility] Start: 07-28-2022 End: 07-29-[address] TAHIR RUST . Facility:[facility] Start: 07-03-2022 End: 07-04-[address] JOHN PORTER . Facility:[facility] Start: 06-29-2022 Encounter for antibo dy response examination DR JOHN PORTER . [facility] Start: 06-26-2022 End: 06-27-[address] [...] PORTER . Facility:[facility] Start: 01-27-[address] TAHIR RUST . Facili ty:[facility] Start: 01-21-[address] TAHIR RUST . Facili ty:[facility] Start: 01-16-2022 End: [...] BRYAN KC Facility:[facility] Start: 12-04-[address] TAHIR RUST . Facili ty:[facility] Procedures Date Procedure Procedure Detail Performing Clinician Start: 05-30-2024 MM TOMOSYNTHESIS SCREENING BI Tahir Rust DO Work Phone: Start: 01-07-2024 ALL CBC WITH AUTO DIFF Tahir Yocastalyndon ARTHUR Work Phone: Start: 12-21-2023 URETHRITIS/DISCHARGE PLUS VAGINITIS (HTRX) Radha KAY Work Phone: Start: 10-17-2018 Cystourethroscopy with dilation of urethral stricture Bessie Galdoreen Appendectomy Bessie Galdoreen H/O: surgery S/P D&C (status post dilation and curettage) Tahir Rust DO Work Phone: History of cholecystectomy A lysha Galea Tonsillectomy Bessie Galea Plan of Treatment Date Care Activity Detail Author Start: 10-05-2032 DTaP,Tdap and Td Vac cines (2 - Td or Tdap) DTaP,Tdap and Td Vaccines (2 - Td or Tdap) [facility] Start: 01-15-2025 End: 01-15-2025 ambulatory 01/15/2025 2:00 PM EDT Evaluation [facility] [address] [facility] [address] [place] [address] Stacy Jean, PT [facility] Start: 12-25-2024 Influenza vaccination Influenza Vacc ine [facility] Start: 07-19-2024 End: 07-19-2024 Patient encounter procedure 07/19/2024 3:40 PM EDT Office Visit [facility] [address] [place] [address] Tahir Rust DO [address] [place] [address] [facility] Start: 01-07-2024 End: 01-07-2024 Patient encounter procedure 01/07/2024 9:00 AM EDT Procedure Visit [facility] Tahir Rust, DO [address] [place] [address] [facility] Start: 01-03-2024 End: 01-03-2024 Patient encounter procedure [facility] Comment on above: Arrived Start: 12-29-2023 End: 12-29-2023 Patient encounter procedure [facility] Start: 08-19-2015 Administration of varicella zoster vaccine Zoster (Shingles) Vaccine (1 of 2) [facility] Start: 1986 Screening for malign ant neoplasm of cervix Pap Smear [facility] Start: 08-19-1983 Adult BMI Screening Adult BMI Screen ing [facility] Start: 1977 Depression Screening Depression Scre ening [facility] Start: 1977 Tobacco Screening Tobacco Screening [facility] CHLAMYDIA TRACHOMATI S (GENITO/STI) CHLAMYDIA TRACHOMATIS (GENITO/STI) Lab Routine Vaginal burning Vaginal itching Ordered: 12/21/2023 [facility] Comment on above: Ordered: 12/21/2023 Neisseria gonorrhoea e DNA [Presence] in Unspecified specimen by JOLLY with probe detection Neisseria gonorrhea DNA probe, direct Lab Routine Vaginal burning Vaginal itching Ordered: 12/21/2023 [facility] Comment on above: Ordered: 12/21/2023 SURESWAB(R) ADVANCED VAGINITIS PLUS, TMA SURESWAB(R) ADVANCED VAGINITIS PLUS, TMA Pathology and Cytology Routine Vaginal burning Vaginal itching Ordered: 12/21/2023 [facility] Work Phone: Comment on above: Ordered: 12/21/2023 Immunizations Immunization Date Immunization Notes Care Provider Mukesh merritt 10-05-2022 tetanus toxoid, redu heide diphtheria toxoid, and acellular pertussis vaccine, adsorbed Bessie Galea [facility] Payers Date Payer Category Payer Self-pay [id number] 2023 Unknown [id number] 2022 Managed Care Other (unspecified) FRONTPATH [id number] 2020 Private Health Insurance FRONTOK TH [id number]. [id number] 2020 Unknown FRONTPATH FRONTP ATH [id number] 2020-Present [phone] [address] 1.2.840.199833.1.13.693. 2.7.3.674307.315 1965 Unknown [id number] 2.16.840.1.111462.3.579. 2.593 1965 Unknown [id number] .16.840.1.788156.3.579. 2.593 1965 Unknown [id number] 2.16.840.1.610419.3.579. 2.593 1965 Unknown [id number] 2.16.840.1.481851.3.579. 2.593 1965 Unknown [id number] 2.16.840.1.040852.3.579. 2.593 1965 Unknown [id number] 2.16.840.1.983180.3.579. 2.593 1965 Unknown [id number] 2.16.840.1.605118.3.579. 2.593 1965 Unknown [id number] 2.16.840.1.119600.3.579. 2.593 1965 Unknown [id number] 2.16.840.1.285541.3.579. 2.593 1965 Unknown [id number] 2.16.840.1.305726.3.579. 2.593 1965 Unknown [id number] 2.16.840.1.301409.3.579. 2.593 1965 Unknown [id number] 2.16.840.1.605864.3.579. 2.593 1965 Unknown [id number] 2.16.840.1.678086.3.579. 2.593 1965 Unknown [id number] 2.16.840.1.627164.3.579. 2.593 1965 Unknown [id number] 2.16.840.1.291727.3.579. 2.593 1965 Unknown [id number] 2.16.840.1.056847.3.579. 2.593 1965 Unknown [id number] 2.16.840.1.065481.3.579. 2.593 1965 Unknown [id number] 2.16.840.1.585727.3.579. 2.593 1965 Unknown [id number] 2.16.840.1.516325.3.579. 2.593 1965 Unknown [id number] 2.16.840.1.026408.3.579. 2.593 1965 Unknown [id number] 2.16.840.1.798951.3.579. 2.593 1965 Unknown [id number] 2.16.840.1.625553.3.579. 2.593 1965 Unknown [id number] 2.16.840.1.609810.3.579. 2.593 1965 Unknown [id number] 2.16.840.1.429190.3.579. 2.593 1965 Unknown [id number] 2.16840.1.779173.3.579. 2.1259 1965 Unknown [id number] 2.16.840.1.237837.3.579. 2.1259 1965 Unknown [id number] 2.16.840.1.763533.3.579. 2.1259 1965 Unknown [id number] 2.16.840.1.273863.3.579. 2.1259 1965 Unknown [id number] 2.16.840.1.652641.3.579. 2.1259 1965 Unknown [id number] 2.16.840.1.523260.3.579. 2.1259 1965 Unknown [id number] 2.16.840.1.212624.3.579. 2.727 1965 Unknown [id number] 2.16.840.1.487205.3.579. 2.1286 1965 Unknown [id number] 2.16.840.1.996098.3.579. 2.1286 1965 Unknown [id number] 2.16.840.1.718572.3.579. 2.1285 1965 Unknown [id number] 2.16840.1.771673.3.579. 2.1285 1965 Unknown [id number] 2.16.840.1.212676.3.579. 2.1285 1965 Unknown [id number] 2.16840.1.527994.3.579. 2.1285 1965 Unknown [id number] 2.16.840.1.680375.3.579. 2.1285 1965 Unknown [id number] 2.840.1.213918.3.579. 2.1285 1965 Unknown [id number] 2.840.1.590005.3.579. 2.1285 1965 Unknown [id number] 2.840.1.448813.3.579. 2.1285 1965 Unknown [id number] 2.840.1.274055.3.579. 2.1285 1965 Unknown [id number] 2.0.1.556148.3.579. 2.1285 1965 Unknown [id number] 2.840.1.769677.3.579. 2.1285 1965 Unknown [id number] 2.840.1.697447.3.579. 2.1285 1965 Unknown [id number] 2.840.1.512275.3.579. 2.1285 1965 Unknown [id number] 2.840.1.372184.3.579. 2.1285 1965 Unknown [id number] 2.840.1.481055.3.579. 2.1285 1965 Unknown [id number] 2.840.1.305643.3.579. 2.1285 1965 Unknown [id number] 2.16.840.1.369427.3.579. 2.1286 1965 Unknown [id number] 2.16.840.1.005122.3.579. 2.1286 1965 Unknown [id number] 2.16.840.1.807722.3.579. 2.1286 1959 Self-pay [id number] 1959 Unknown [id number] 1959 Unknown [id number] Unknown [id number] 2.16.840.1.580054.3.579. 2.531 Social History Date Type Detail Facility Start: 12-30-2022 End: 12-30-2023 Tobacco smoking status Ex-smoker (finding) [facility] Tobacco smoking status Never [facility] Start: 11-05-2022 End: 12-21-2023 Sex Assigned At Female [facility] Start: 09-05-2013 End: 09-11-2020 Tobacco smoking status NHIS Never smoked tobacco (finding) [facility] Start: 1965 Sex Assigned At Female F [facility] History of tobacco use Current smoker [facility] History of tobacco use Cigarette Smoker [facility] Start: 01-03-2024 End: 01-20-2024 Alcoholic beverage intake Lifetime non-drinker (finding) [facility] Start: 11-05-2022 End: 12-21-2023 History of Social function [facility] Start: 12-30-2022 Alcohol Comment Caffeine: none [facility] Start: 1965 Sex assigned at Not on file [facility] Start: 09-11-2020 Tobacco use and exposure Smokeless tobacco non-user [facility] Start: 11-29-2014 Sex Female (finding) [facility] Functional Status Date Assessment Result Facility 12-30-2023 Functional Status N/A [facility] Clinical Notes 12-21-2023 to 01-03-2025 Telephone Encounter - Leonila Stephenson - 01/03/2025 9:59 AM EDTTelephone Encounter - Leonila Stephenson - 01/03/2025 9:59 AM EDTSrenetta Palacios LPN - 01/20/2024 11:50 AM EDT Note Date & Type Note Facility 01-03-2025 Telephone encount er Note She called noting she has an appt conflict today; her appt prior usually lasts around an hour long and does not feel able to get here in time. I offered the soonest available to rs; but it was to early. Next PT is 01/15; and that will be her PT Eval @ 2:00. [facility] 01-03-2025 Miscellaneous Notes Formattin g of this note might be different from the original. She called noting she has an appt conflict today; her appt prior usually lasts around an hour long and does not feel able to get here in time. I offered the soonest available to rs; but it was to early. Next PT is 01/15; and that will be her PT Eval @ 2:00. documented in this encounter [facility] 01-20-2024 History of Presen t illness Narrative Reason for Appointment: Patient ID: Eugenia Dorsey is a 58 y.o. female who [...] 08/14/2013 Acute pelvic pain 10/28/2022 Anxiety state ([facility]/HCC) 08/14/2013 Bilateral tinnitus 10/28/2022 Cervical disc disorder 08/14/2013 Fibrocystic breast changes 10/28/2022 Generalized anxiety disorder ([facility]/HCC) 03/28/2019 Intermittent vertigo 04/26/2004 Irritable bowel syndrome 08/14/2013 Major depressive disorder, single episode, moderate (HCC) ([facility]) 03/28/2019 Meniere's disease 08/14/2013 Menopausal symptoms 11/17/2016 Menorrhagia 10/28/2022 Other specified hearing loss, right ear 02/25/2016 Pressure in head 04/26/2015 Psychological factors affecting medical condition 11/17/2016 Shoulder joint pain 10/28/2022 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 Exam conducted with a planting material carrier present. Vitals: Estimated body mass index is [...] by Deepti Palacios LPN on behalf of: Tahir Rust DO documented in this encounter [facility] 01-03-2024 History of Presen t illness Narrative Reason for Appointment: Patient ID: Eugenia Dorsey is a 58 y.o. female who [...] nursing note reviewed. Exam conducted with a planting material carrier present. Vitals: Estimated body mass index is [...] reviewed, and patient is to proceed to [facility]. Follow Up: Patient is to follow up between 1-2 weeks post operative to assess proper healing and recovery from procedure. Documented by Deepti Palacios LPN on behalf of: Tahir Rust DO documented in this encounter [facility] 12-30-2023 Hospital Discharg e instructions Patient [...] provider. Document Revised: 08/21/2021 Document Reviewed: 08/21/2021 [employer] Patient Education 2023 [employer] Follow Up Care 12/02/2023 13:46:26 With:Farideh BARRERA, Bessie Modi, URL Address: When: Unknown Comments:pending imaging and after PFPT [facility] 12-30-2023 Note Patient Education Obstetrics and [...] provider. Document Revised: 08/21/2021 Document Reviewed: 08/21/2021 [employer] Patient Education ? 2023 [employer]. [facility] 12-29-2023 History of Presen t illness Narrative Reason for Appointment: Patient ID: Eugenia Dorsey is a 58 y.o. female who presents for Telehealth, UTI, and kidney stone Patient presents today via telephone call for a telehealth appointment. Patients Phone #: [phone] (mobile) Current Medications: has a current medication list which includes the following prescription(s): vitamin c, calcium carbonate, qfpjayq-nisibxjto-hfrd, airborne elderberry, and multivitamin. Medical History: Active [...] by Olivia Buckley LPN on behalf of: Tahir Rust DO documented in this encounter [facility] 12-21-2023 History of Presen t illness Narrative Reason for Appointment: Patient ID: Eugenia Dorsey is a 58 y.o. female who [...] 08/14/2013 Acute pelvic pain 10/28/2022 Anxiety state ([facility]/HCC) 08/14/2013 Bilateral tinnitus 10/28/2022 Cervical disc disorder 08/14/2013 Fibrocystic breast changes 10/28/2022 Generalized anxiety disorder ([facility]/HCC) 03/28/2019 Intermittent vertigo 04/26/2004 Irritable bowel syndrome 08/14/2013 Major depressive disorder, single episode, moderate (HCC) ([facility]) 03/28/2019 Meniere's disease 08/14/2013 Menopausal symptoms 11/17/2016 Menorrhagia 10/28/2022 Other specified hearing loss, right ear 02/25/2016 Pressure in head 04/26/2015 Psychological factors affecting medical condition 11/17/2016 Shoulder joint pain 10/28/2022 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) 11/17/2016 Thickened endometrium 10/28/2022 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 08/14/2013 Resolved Ambulatory Problems Diagnosis Date Noted No Resolved Ambulatory Problems Past Medical History: Diagnosis Date Anemia, iron deficiency Anxiety BMI 29.0-29.9,adult BPPV (benign paroxysmal positional vertigo), left Chronic bronchitis ([facility]/HCC) Chronic fatigue Chronic fibrocystic breast disease (FCBD) in female Chronic tonsillitis Dizziness DJD (degenerative joint disease) of cervical spine Encounter for screening mammogram for breast cancer 2019 Encounter to discuss procedure Caleb-Fox viral infection Fibrocystic breast disease IBS (irritable bowel syndrome) Migraines ([facility]/HCC) Pelvic pain Plantar fasciitis Viral hepatitis HISTORY [...] agrees with plan of care Documented by LEIZA Mccollum on behalf of: ELIZA Mccollum documented in this encounter [facility] Healthcare Evaluation + Plan note No data available for this section [facility] Evaluation note No assessment inform ation available [facility] Work Phone: Evaluation note Diagnosis Vaginal burning Other specified symptom associated with female genital organs Vaginal itching Pruritus of genital organs documented in this encounter [facility] HealthcareEvaluation note* Diagnosis Urinary tract infection without hematuria, site unspecified Vulvar irritation documented in this encounter [facility] HealthcareEvaluation note* Diagnosis Pre-op examination Yeast infection Thickened endometrium Nonspecific (abnormal) findings on radiological and other examination of genitourinary organs Pelvic pain documented in this encounter [facility] HealthcareEvaluation note* Diagnosis Postoperative visit S/P D&C (status post dilation and curettage) Other postprocedural status documented in this encounter [facility] HealthcareInstructionsNot on filedocumented in this [facility] No data available for this section [facility] Summary Purpose Family History No Family History Records Found Relationship Condition Age at Onset Recorded Date/T lópez father Heart disease Unknown mother Unknown History of stroke Unknown Advance Directives No Advanced Directives Records Found Advance Directive Response Recorded Date/ Time Advance Directives No July 15 019 11:52am Additional Source Comments INFORMATION SOURCE (unrecogn ized section and content) DATE CREATED AUTHOR 10/02/2022 [facility] DATE CREATED AUTHOR AUTHOR'S ORGANIZ ATION 01/04/2024 [facility] DATE CREATED AUTHOR AUTHOR'S ORGANIZ ATION 01/09/2024 [facility] DATE CREATED AUTHOR AUTHOR'S ORGANIZ ATION 01/14/2024 [facility] DATE CREATED AUTHOR AUTHOR'S ORGANIZ ATION 01/05/2025 [facility] Patient Care team informatio n (unrecognized section and content) Team Status: Active Member Role Status Dates John Porter MD Primary Care Provider Active Team Status: Inactive Member Role Status Dates John Porter MD Primary Care Provider Active Start: January 07, 2024 End: January 07, 2024 Tahir Rust DO Attending Provider Active Start : January 07, 2024 End: January 07, 2024 [employer] Relationship Specialty Start Date End Date John Porter MD [address] [phone] PCP - General 09/13/22 [employer] Relationship Specialty Start Date End Date John Porter MD [address] [phone] PCP - General 09/13/22 [employer] Relationship Specialty Start Date End Date John Porter MD [address] [phone] PCP - General 09/13/22 [employer] Relationship Specialty Start Date End Date John Porter MD [address] [phone] PCP - General 09/13/22 [employer] Relationship Specialty Start Date End Date John Porter MD [address] [place] [phone] PCP - General 09/13/22 [employer] Relationship Specialty Start Date End Date John Porter MD [address] [place] [phone] PCP - General 09/13/22 [employer] Relationship Specialty Start Date End Date John Porter MD [address] [facility] [place] [address] PCP - General 09/13/22 [employer] Relationship Specialty Start Date End Date John Porter MD PCP - General Family Medicine 03/22/19 [employer] Relationship Specialty Start Date End Date John Porter MD PCP - General 09/13/22 Goals (unrecognized section [...] visit. Pt had a D&C on 01/07/2024. Reason Onset Date Comments RS PT Eval 01/03/2025 FOR RECORDS PERTAINING TO PATIENTS WHO ARE [...] BE BASED ON THE PRIMARY CLINICAL RECORDS. [employer] provides no warranty or guarantee of the accuracy or completeness of information in this document.
[2025-01-08 10:59] LABS: Hematocrit 43.4 % (36.0-48.0); Hemoglobin 14.7 g/dL (12.0-16.0); Immature Granulocytes Abs Auto 0.00 10^3/uL (0.00-0.03); Immature Granulocytes Pct Auto 0.0 % (0.0-0.5); Lymphocytes Absolute Auto 1.4 10^3/uL (1.2-3.8); Mean Corpuscular HGB Conc 33.9 g/dL (29.9-35.2); Mean Corpuscular Hemoglobin 29.9 pg (26.7-34.0); Mean Corpuscular Volume 88.2 fL (81.0-99.0); Platelet Count 265 10^3/uL (150-450); Red Blood Count 4.92 10^6/uL (4.20-5.40); White Blood Count 4.6 10^3/uL (4.0-11.0)
[2025-01-08 12:20] LABS: Alanine Aminotransferase 30 U/L (14-59); Albumin Globulin Ratio 1.0; Albumin Level 4.0 g/dL (3.4-5.0); Alkaline Phosphatase 76 U/L (46-116); Aspartate Amino Transferase 20 U/L (15-37); Blood Urea Nitrogen 13.0 mg/dL (7.0-18.0); Calcium 9.3 mg/dL (8.5-10.1); Carbon Dioxide 30.0 mmol/L (21.0-32.0); Estimated GFR (African America >60 (>=60 mL/min/1.73m^2); Estimated GFR (Non-African Ame >60 (>=60 mL/min/1.73m^2); Globulin 4.2 g/dL; Glucose 161 mg/dL (74-106); NT Pro B Type Natriuretic Pept 39.0 pg/mL (<=900.0); Total Protein 8.2 g/dL (6.4-8.2)
[2025-01-08 12:29] LABS: Anion Gap 6.9; Chloride 104 mmol/L (98-107); Potassium 3.9 mmol/L (3.5-5.1); Sodium 137 mmol/L (136-145)
== END 2025-01-08 10:34 | disposition home or self-care (01) ==
LOC: LAB 10:34
PROVIDERS: PCP Family Medicine; Visit Provider Family Medicine
DX: J44.9 Chronic obstructive pulmonary disease, unspecified (principal); I10 Essential (primary) hypertension; N95.1 Menopausal and female climacteric states
CPT/HCPCS: 36415; 80053; 83880; 84484; 85025; 85652; 86140